=== PATIENT | female | born 1990 | race African-American/Black ===

== ENCOUNTER 2016-09-12 21:27 | Inpatient (IN) | payer MEDICAID ==
[~2016-09-12] VITALS: Ht 165.1 cm; Wt 70.1 kg
[~2016-09-12 21:27] MED LIST: ALBU6.7H INH; AMBI5TAB PO; FOLI5CAP PO; HYDR-3516 PO
[2016-09-12 21:33] VITALS: BP 129/68; PULSE 92; RESP 16; TEMP 98; O2SAT 98
[2016-09-13] VITALS (10 sets, daily range): BP systolic 95–134; BP diastolic 50–74; PULSE 63–99; RESP 16–20; TEMP 97–98.5; O2SAT 95–99
[2016-09-13] MEDS ORDERED: SODIUM CHLOR 0.9% 1000 ML INJ 1,000 ML IV ONE (00:28)
[2016-09-13] MEDS ORDERED: HYDROmorphone HCL PF 1 MG/ML VIAL IVS ONE (00:30)
[2016-09-13] MEDS ORDERED: diphenhydrAMINE HCL 25 MG CAP PO ONE (00:30)
[2016-09-13] MEDS ORDERED: ONDANSETRON HCL 4 MG/2 ML VIAL IVP ONE (00:30)
[2016-09-13] MEDS: SODIUM CHLORIDE 0.9% FLUSH 5 ML FLUSH IVF PRN ×3 (01:12→03:37)
--- NOTE | 2016-09-13 01:24 | RADRPT ---
EXAM DATE/TIME: 09/13/2016 01:01 [place] COMPARISON: CHEST PA & LAT, August 07, 2016, 14:44. INDICATIONS : Pt having chest pain and pain all over from Sickle Cell. MEDICAL HISTORY : Congestive heart failure. Sickle Cell disease. asthma SURGICAL HISTORY : section. Tubal ligation. Cholecystectomy. Port placement ENCOUNTER: Initial ACUITY: 1 day PAIN SCORE: 8/10 LOCATION: Bilateral chest FINDINGS: The cardiac silhouette is enlarged in transverse diameter. The lungs are free of acute parenchymal op acity. No effusions are identified. There is elevation of the right hemidiaphragm. [id number] is i n place via right internal jugular approach with its tip in the superior vena cava. CONCLUSION: 1. Cardiomegaly. No acute pulmonary disease. Obed Wagner MD on September 13, 2016 at 1:22 Board Certified Radiologist. This report was verified electronically.
[2016-09-13 01:29] LABS: AUTOMATED NEUTROPHIL # 10.5 TH/MM3 (1.8-7.7); BASOPHIL # 0.3 TH/MM3 (0-0.2); BASOPHIL % 2.1 % (0.0-2.0); EOSINOPHIL # 0.4 TH/MM3 (0-0.4); EOSINOPHIL % 2.3 % (0.0-4.0); LYMPH % 19.4 % (9.0-44.0); LYMPHOCYTE # 3.2 TH/MM3 (1.0-4.8); MEAN CELL VOLUME 81.5 FL (80.0-100.0); MEAN CORPUSCULAR HEMOGLOBIN 27.6 PG (27.0-34.0); MEAN CORPUSCULAR HGB CONC 33.9 % (32.0-36.0); MONO % 11.8 % (0.0-8.0); NEUT % 64.4 % (16.0-70.0); PLATELET COUNT 479 TH/MM3 (150-450); RED BLOOD COUNT 2.56 MIL/MM3 (4.00-5.30); RETIC % 5.2 % (0.4-3.0); WHITE BLOOD COUNT 16.3 TH/MM3 (4.0-11.0)
[2016-09-13 01:39] LABS: HEMO FLAGS AUTO DIFF; POTASSIUM 3.4 MEQ/L (3.5-5.1)
[2016-09-13] MEDS ORDERED: HYDROmorphone HCL PF 1 MG/ML VIAL IV PUSH ONE ×2 (01:45→03:15)
[2016-09-13 01:46] LABS: HEMATOCRIT 20.9 % (35.0-46.0)
[2016-09-13 02:55] LABS: OVALOCYTES 1+ (NORMAL); SICKLE CELLS 1+ (NORMAL); TARGET CELLS 1+ (NORMAL); TEARDROP RBCS 1+ (NORMAL)
[2016-09-13 02:56] LABS: HOWELL-JOLLY BODIES PRESENT (NONE SEEN)
[2016-09-13 02:57] LABS: SCAN/DIFF AUTO DIFF CONFIRMED
--- NOTE | 2016-09-13 03:14 | PD ---
HPI Chief Complaint: Sickle Cell Time Seen by Provider: 00:20 Travel History International Travel<30 days: No Contact w/Intl Traveler<30days: No Traveled to known affect area: No History of Present Illness HPI Patient is a 26 year old female with a history of sickle cell disease who comes in complaining of pain all over. She says the pain is in her arms, legs, back and chest. She says this is typical of her sickle cell pain. She says she feels like her asthma may be acting up a little. She denies fevers, but has had chills. She denies any injuries. She denies any swelling or redness of her joints. PFSH Past Medical History Hx Anticoagulant Therapy: No Anemia: Yes Arthritis: No Asthma: Yes Autoimmune Disease: No Blood Disorders: Yes (Sickel Cell Anemia) Anxiety: Yes Depression: No Heart Rhythm Problems: No Cancer: No Cardiovascular Problems: Yes (CHF) High Cholesterol: No Chemotherapy: No Chest Pain: No Congestive Heart Failure: Yes COPD: No Cerebrovascular Accident: No Diabetes: No Diminished Hearing: No Endocrine: No Gastrointestinal Disorders: Yes GERD: No Genitourinary: No Headaches: Yes Hiatal Hernia: No Hypertension: No Immune Disorder: No Implanted Vascular Access Dvce: Yes Kidney Stones: No Musculoskeletal: Yes Neurologic: No Psychiatric: Yes Reproductive: No Respiratory: Yes (ASTHMA) Immunizations Current: Yes Migraines: Yes Radiation Therapy: No Renal Failure: No Seizures: No Sickle Cell Disease: Yes Sleep Apnea: No Thyroid Disease: No Ulcer: No PNEUMOCCOCAL Vaccine (Year): 1 ?: Not LMP: 09/05/16 : 1 Para: 1 Miscarriage: 0 : 0 Tubal Ligation: Yes Past Surgical History Abdominal Surgery: No AICD: No Arteriovenous Shunt: No Body Medical Devices: INFUSAPORT (3RD) Cardiac Surgery: No Section: Yes Cholecystectomy: Yes Ear Surgery: No Endocrine Surgery: No Eye Surgery: No Genitourinary Surgery: Yes (gallbladder removed) Gynecologic Surgery: Yes Hysterectomy: No Insulin Pump: No Joint Replacement: No Neurologic Surgery: No Oral Surgery: No Pacemaker: No Thoracic Surgery: Yes (PORT REMOVED X 2; PORT RIGHT subclavian) Other Surgery: Yes (PORTX3 PLACED AND REMOVED ) Social History Alcohol Use: Yes (occ) Tobacco Use: No Substance Use: No Allergies-Medications (Allergen,Severity, Reaction): Coded Allergies: Percocet (Verified Adverse Reaction, Severe, Nausea/Vomiting, 09/12/16) AND ITCHING *MDRO Multi-Drug Resistant Organism (Verified Adverse Reaction, Unknown, ) MRSA (Chest Wound) - 02/2012 MRSA PCR Screen negative 02/06/15 and 02/08/15. Cleared per Infection Control Reported Meds & Prescriptions Reported Meds & Active Scripts Active Hydrocodone-Acetaminophen 5-325 mg Tab 1 Tab PO Q4H PRN Reported Ambien (Zolpidem Tartrate) 5 Mg Tab 5 Mg PO HS Proventil Hfa 6.7 GM Inh (Albuterol Sulfate) 90 Mcg/Act Aer 2 Puff INH Q6H PRN Folic Acid 5 Mg Cap 5 Mg PO DAILY Review of Systems Except as stated in HPI: all other systems reviewed are Neg General / Constitutional: Positive: Chills, No: Fever HENT: No: Headaches, Lightheadedness Cardiovascular: Positive: Chest Pain or Discomfort Respiratory: No: Cough Gastrointestinal: No: Nausea, Vomiting, Abdominal Pain Musculoskeletal: Positive: Myalgias Skin: No Rash, No Change in Pigmentation Neurologic: No: Weakness, Dizziness Physical Exam Narrative GENERAL: Awake and alert in no acute distress. SKIN: Warm and dry. HEAD: Atraumatic. Normocephalic. EYES: Pupils equal and round. No scleral icterus. ENT: Mucous membranes pink and moist. NECK: Trachea midline. No JVD. CARDIOVASCULAR: Regular rate and rhythm. No murmur appreciated. RESPIRATORY: No accessory muscle use. Clear to auscultation. Breath sounds equal bilaterally. GASTROINTESTINAL: Abdomen soft, non-tender, nondistended. MUSCULOSKELETAL: No obvious deformities. No clubbing. No cyanosis. No edema. NEUROLOGICAL: Awake and alert. No obvious cranial nerve deficits. Motor grossly within normal limits. Normal speech. PSYCHIATRIC: Appropriate mood and affect; insight and judgment normal. Data Data Last Documented VS Vital Signs Date Time Temp Pulse Resp B/P Pulse Ox O2 Delivery O2 Flow Rate FiO2 09/13/16 02:00 81 16 131/74 99 Room Air 09/12/16 21:33 98.0 Orders Basic Metabolic Panel (Bmp) (09/13/16 00:28) Complete Blood Count With Diff (09/13/16 00:28) Retic Count (09/13/16 00:28) Chest, Pa & Lat (09/13/16 00:28) Ecg Monitoring (09/13/16 00:28) Iv Access Insert/Monitor (09/13/16 00:28) Oximetry (09/13/16 00:28) Ondansetron Inj (Zofran Inj) (09/13/16 00:30) Sodium Chloride 0.9% Flush (Ns Flush) (09/13/16 00:30) Sodium Chlor 0.9% 1000 Ml Inj (Ns 1000 M (09/13/16 00:28) Hydromorphone Pf Inj (Dilaudid Pf Inj) (09/13/16 00:30) Diphenhydramine (Benadryl) (09/13/16 00:30) Ed Urine Pregnancytest Poc (09/13/16 00:28) Hydromorphone Pf Inj (Dilaudid Pf Inj) (09/13/16 01:45) Hydromorphone Pf Inj (Dilaudid Pf Inj) (09/13/16 03:15) Admit Order (Ed Use Only) (09/13/16 ) Admit To Inpatient (09/13/16 ) Vital Signs (Adult) Q4H (09/13/16 03:21) Activity Oob With Assistance (09/13/16 03:21) Intake + Output KARI.QSHIFT (09/13/16 03:21) Diet Regular Basic (09/13/16 Breakfast) Sodium Chlor 0.9% 1000 Ml Inj (Ns 1000 M (09/13/16 03:21) Sodium Chloride 0.9% Flush (Ns Flush) (09/13/16 03:30) Sodium Chloride 0.9% Flush (Ns Flush) (09/13/16 09:00) Ondansetron Inj (Zofran Inj) (09/13/16 03:30) Bisacodyl Supp (Dulcolax Supp) (09/13/16 03:30) Comprehensive Metabolic Panel (09/14/16 06:00) Complete Blood Count With Diff (09/14/16 06:00) Scd Bilateral/Knee High KARI.BID (09/13/16 03:21) Missael Bilateral/Knee High KARI.QSHIFT (09/13/16 03:21) Acetaminophen (Tylenol) (09/13/16 03:30) Hydromorphone Pf Inj (Dilaudid Pf Inj) (09/13/16 03:30) Hydromorphone Pf Inj (Dilaudid Pf Inj) (09/13/16 03:30) Inpatient Certification (09/13/16 ) Albuterol Hfa Inh (Proair Hfa Inh) (09/13/16 03:30) Folic Acid (Folate) (09/13/16 09:00) Zolpidem (Ambien) (09/13/16 21:00) Labs Laboratory Tests Test 09/13/16 00:55 White Blood Count 16.3 TH/MM3 Red Blood Count 2.56 MIL/MM3 Hemoglobin 7.1 GM/DL Hematocrit 20.9 % Mean Corpuscular Volume 81.5 FL Mean Corpuscular Hemoglobin 27.6 PG Mean Corpuscular Hemoglobin 33.9 % Concent Red Cell Distribution Width 17.0 % Platelet Count 479 TH/MM3 Mean Platelet Volume 8.3 FL Neutrophils (%) (Auto) 64.4 % Lymphocytes (%) (Auto) 19.4 % Monocytes (%) (Auto) 11.8 % Eosinophils (%) (Auto) 2.3 % Basophils (%) (Auto) 2.1 % Neutrophils # (Auto) 10.5 TH/MM3 Lymphocytes # (Auto) 3.2 TH/MM3 Monocytes # (Auto) 1.9 TH/MM3 Eosinophils # (Auto) 0.4 TH/MM3 Basophils # (Auto) 0.3 TH/MM3 CBC Comment AUTO DIFF Differential Comment AUTO DIFF CONFIRMED Basophilic Stippling FAINT Sickle Cells 1+ Target Cells 1+ Tear Drop Cells 1+ Ovalocytes 1+ Karimi-[place] Bodies PRESENT Reticulocyte Count 5.2 % Absolute Reticulocyte Count 132.4 MIL/L Sodium Level 141 MEQ/L Potassium Level 3.4 MEQ/L Chloride Level 110 MEQ/L Carbon Dioxide Level 23.0 MEQ/L Anion Gap 8 MEQ/L Blood Urea Nitrogen 6 MG/DL Creatinine 0.64 MG/DL Estimat Glomerular Filtration 135 ML/MIN Rate Random Glucose 92 MG/DL Calcium Level 8.5 MG/DL MDM Medical Decision Making Medical Screen Exam Complete: Yes Emergency Medical Condition: Yes Medical Record Reviewed: Yes Differential Diagnosis Sickle cell pain crisis versus acute syndrome versus electrolyte abnormality versus dehydration Narrative Course Patient is a 26 year old female complaining of sickle cell pain. She says her pain is typical of her sickle cell pain. Exam shows no acute abnormalities. IV established, labs sent. Labs show a Hgb 7.1, which is typical for her. Her reticulocyte count is appropriately elevated. Given Hydromorphone, IVF, Benadryl PO and Zofran. Patient continued to have pain, given second dose of Hydromorphone. Patient complained of pain again after the two doses of pain medication. Decision made to admit for further management. Given third dose of Hydromorphone. Chest XR shows cardiomegaly, no infiltrate. Diagnosis Primary Impression: Sickle cell disease with crisis Admitting Information Admitting Physician Requests: Admit Lulu Russell MD Sep 13, 2016 03:14
[2016-09-13] MEDS ORDERED: ACETAMINOPHEN 325 MG TAB PO PRN (03:30)
[2016-09-13] MEDS ORDERED: ALBUTEROL SULFATE 90 MCG/ACT HFA 8 GM INHALER INH PRN (03:30)
[2016-09-13] MEDS ORDERED: BISACODYL 10 MG SUPP PR PRN (03:30)
[2016-09-13] MEDS ORDERED: SODIUM CHLORIDE 0.9% FLUSH 5 ML FLUSH FLUSH PRN (03:30)
[2016-09-13] MEDS: SODIUM CHLOR 0.9% 1000 ML INJ 1,000 ML IV SCH ×4 (04:07→23:21)
[2016-09-13] MEDS: HYDROmorphone HCL PF 1 MG/ML VIAL IV PRN ×6 (06:23→23:29)
[2016-09-13] MEDS: SODIUM CHLORIDE 0.9% FLUSH 5 ML FLUSH FLUSH SCH ×2 (09:00→22:14)
[2016-09-13] MEDS: FOLIC ACID 1 MG TAB PO SCH (09:19)
--- NOTE | 2016-09-13 10:39 | HHI.HP ---
[facility]ician No Primary Care Physician Admission Diagnosis sickle cell crisis Diagnoses: Chief Complaint: Generalized pain. Travel History International Travel<30 Days: No Contact w/Intl Traveler <30 Da: No Traveled to Known Affected Are: No History of Present Illness Ms. Frazier is a pleasant 26 year old female with a history of sickle cell disease who presented to the ED on 09/13/2016 due to pain all over her body - specifically in her arms, legs, back and chest. She reported some chills but no fever. She used to take hydroxyurea but did not tolerate well. Currently, she only takes folic acid for sickle cell disease. Denies any injuries. Denies any changes in bowel or bladder habits. No fever, chills currently. Cardiac work up: Echocardiogram 02/12/2016 -- LVEF 30-35%. Diffuse hypokinesis. Pulmonary artery was normal sized. Review of Systems ROS Limitations: Other (Negative except as noted in the HPI. ) Past Family Social History Past Medical History Sickle cell disease. Anxiety Past Surgical History Cholecystectomy . Reported Medications Hydrocodone-Acetaminophen 5-325 mg Tab 1 Tab PO Q4H PRN Ambien (Zolpidem Tartrate) 5 Mg Tab 5 Mg PO HS Proventil Hfa 6.7 GM Inh (Albuterol Sulfate) 90 Mcg/Act Aer 2 Puff INH Q6H PRN Folic Acid 5 Mg Cap 5 Mg PO DAILY Allergies: Coded Allergies: Percocet (Verified Adverse Reaction, Severe, Nausea/Vomiting, 09/12/16) AND ITCHING *MDRO Multi-Drug Resistant Organism (Verified Adverse Reaction, Unknown, ) MRSA (Chest Wound) - 02/2012 MRSA PCR Screen negative 02/06/15 and 02/08/15. Cleared per Infection Control Family History Diabetes run in the family. Social History Smokes occasionally but does not drink alcohol or use illicit drugs. Physical Exam Vital Signs Vital Signs Date Time Temp Pulse Resp B/P Pulse Ox O2 Delivery O2 Flow Rate FiO2 09/13/16 08:35 98.1 63 18 121/57 97 09/13/16 06:07 88 09/13/16 05:23 98.1 79 20 100/50 96 09/13/16 02:00 81 16 131/74 99 Room Air 09/13/16 01:08 16 99 Room Air 09/13/16 00:00 84 16 134/72 97 Room Air 09/12/16 21:33 98.0 92 16 129/68 98 Room Air Physical Exam GENERAL: This is a well-nourished, well-developed patient, in no apparent distress. SKIN: No rashes, ecchymoses or lesions. Cool and dry. HEAD: Atraumatic. Normocephalic. No temporal or scalp tenderness. EYES: Pupils equal round and reactive. Extraocular motions intact. No scleral icterus. No injection or drainage. ENT: Nose without bleeding, purulent drainage or septal hematoma. Throat without erythema, tonsillar hypertrophy or exudate. Uvula midline. Airway patent. NECK: Trachea midline. No JVD or lymphadenopathy. Supple, nontender, no meningeal signs. CARDIOVASCULAR: Regular rate and rhythm without murmurs, gallops, or rubs. RESPIRATORY: Clear to auscultation. Breath sounds equal bilaterally. No wheezes , rales, or rhonchi. GASTROINTESTINAL: Abdomen soft, non-tender, nondistended. No hepato-splenomegaly , or palpable masses. No guarding. MUSCULOSKELETAL: Extremities without clubbing, cyanosis, or edema. No joint tenderness, effusion, or edema noted. No calf tenderness. Negative Homans sign bilaterally. NEUROLOGICAL: Awake and alert. Cranial nerves II through XII intact. Motor and sensory grossly within normal limits. Five out of 5 muscle strength in all muscle groups. Normal speech. Laboratory Laboratory Tests Test 09/13/16 00:55 White Blood Count 16.3 Red Blood Count 2.56 Hemoglobin 7.1 Hematocrit 20.9 Mean Corpuscular Volume 81.5 Mean Corpuscular Hemoglobin 27.6 Mean Corpuscular Hemoglobin 33.9 Concent Red Cell Distribution Width 17.0 Platelet Count 479 Mean Platelet Volume 8.3 Neutrophils (%) (Auto) 64.4 Lymphocytes (%) (Auto) 19.4 Monocytes (%) (Auto) 11.8 Eosinophils (%) (Auto) 2.3 Basophils (%) (Auto) 2.1 Neutrophils # (Auto) 10.5 Lymphocytes # (Auto) 3.2 Monocytes # (Auto) 1.9 Eosinophils # (Auto) 0.4 Basophils # (Auto) 0.3 CBC Comment AUTO DIFF Differential Comment AUTO DIFF CONFIRMED Basophilic Stippling FAINT Sickle Cells 1+ Target Cells 1+ Tear Drop Cells 1+ Ovalocytes 1+ Karimi-[place] Bodies PRESENT Reticulocyte Count 5.2 Absolute Reticulocyte Count 132.4 Sodium Level 141 Potassium Level 3.4 Chloride Level 110 Carbon Dioxide Level 23.0 Anion Gap 8 Blood Urea Nitrogen 6 Creatinine 0.64 Estimat Glomerular Filtration 135 Rate Random Glucose 92 Calcium Level 8.5 Result Diagram: 09/13/165409/13/1654 Imaging Last Impressions Chest X-Ray 09/13/168 Signed Impressions: Service Date/Time: Thursday, September 13, 2016 01:01 - CONCLUSION: 1. Cardiomegaly. No acute pulmonary disease. Obed Wagner MD Assessment and Plan Problem List: (1) Acute sickle cell crisis ICD Code: D57.00 Status: Resolved (2) Sickle cell anemia ICD Code: D57.1 Status: Acute (3) Cardiomyopathy ICD Code: I42.9 Status: Chronic Code Status Ms. Frazier is a pleasant 26 year old female with a history of sickle cell disease , cardiomyopathy who presented to the ED due to generalized pain. - Acute sickle cell crisis - Sickle cell anemia - Hgb 7.1 - NS 150cc/hour. Dilaudid 1mg and 2mg depending on the pain level. - If Hgb drops below 6.0, we will transfuse PRBCs. - Switch to PO pain medications once patient's pain improves - hopefully on . - Continue folic acid 5mg Qday. - Follow up with Hematology in the outpatient setting. - Non-ischemic cardiomyopathy - EF 30-35%. NYHA class I heart failure - systolic. 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 - Patient should be on ASAD inhibitor and beta renan. She was on Lisinopril 2.5mg Qday and metoprolol 12.5mg BID before. - We will start Lisinopril 2.5mg Qday and metoprolol succinate 12.5mg Qday. Titrate up Lisinopril as the benefit is dose related. Full code. SCDs. Physician Certification 2 Midnight Certification Type: Admission for Inpatient Services Order for Inpatient Services The services are ordered in accordance with Medicare regulations or non- Medicare payer requirements, as applicable. In the case of services not specified as inpatient-only, they are appropriately provided as inpatient services in accordance with the 2-midnight benchmark. Estimated LOS (days): 2 days is the estimated time the patient will need to remain in the hospital, assuming treatment plan goals are met and no additional complications. Post-Hospital Plan: Home Wolfgang Nieves DO Sep 13, 2016 10:39
[2016-09-13] MEDS ORDERED: diphenhydrAMINE HCL 50 MG/ML VIAL IM PRN (11:45)
[2016-09-13] MEDS: diphenhydrAMINE HCL 25 MG CAP PO PRN (12:38)
[2016-09-13] MEDS: ONDANSETRON HCL 4 MG/2 ML VIAL IVP PRN (19:24)
[2016-09-13] MEDS: ZOLPIDEM TARTRATE 5 MG TAB PO SCH (22:14)
[2016-09-14] VITALS (13 sets, daily range): BP systolic 102–126; BP diastolic 52–75; PULSE 84–100; RESP 16–20; TEMP 96.2–98.5; O2SAT 93–98
[2016-09-14] MEDS ORDERED: PILL SPLITTER OTHER PRN (00:30)
[2016-09-14] MEDS: ONDANSETRON HCL 4 MG/2 ML VIAL IVP PRN ×3 (03:38→19:31)
[2016-09-14] MEDS: HYDROmorphone HCL PF 1 MG/ML VIAL IV PRN ×6 (03:39→23:18)
[2016-09-14] MEDS: SODIUM CHLOR 0.9% 1000 ML INJ 1,000 ML IV SCH ×3 (05:11→19:21)
[2016-09-14 06:18] LABS: AUTOMATED NEUTROPHIL # 16.6 TH/MM3 (1.8-7.7); BASOPHIL # 0.2 TH/MM3 (0-0.2); BASOPHIL % 1.1 % (0.0-2.0); EOSINOPHIL % 0.2 % (0.0-4.0); LYMPH % 7.2 % (9.0-44.0); LYMPHOCYTE # 1.4 TH/MM3 (1.0-4.8); MEAN CELL VOLUME 79.4 FL (80.0-100.0); MEAN CORPUSCULAR HEMOGLOBIN 27.6 PG (27.0-34.0); MEAN CORPUSCULAR HGB CONC 34.8 % (32.0-36.0); MONO % 7.7 % (0.0-8.0); NEUT % 83.8 % (16.0-70.0); PLATELET COUNT 427 TH/MM3 (150-450); RED BLOOD COUNT 2.28 MIL/MM3 (4.00-5.30); RED CELL DISTRIBUTION WIDTH 18.6 % (11.6-17.2); WHITE BLOOD COUNT 19.8 TH/MM3 (4.0-11.0)
[2016-09-14 06:27] LABS: HEMO FLAGS DIFF FINAL
[2016-09-14 06:29] LABS: HEMATOCRIT 18.1 % (35.0-46.0)
[2016-09-14 06:45] LABS: ALKALINE PHOSPHATASE 81 U/L (45-117); ALT (GPT) 16 U/L (10-53); ANION GAP 9 MEQ/L (5-15); AST (GOT) 38 U/L (15-37); BICARBONATE 23.9 MEQ/L (21.0-32.0); BLOOD UREA NITROGEN 6 MG/DL (7-18); CHLORIDE 110 MEQ/L (98-107); GLOMERULAR FILTRATION RATE 142 ML/MIN (>89); POTASSIUM 3.9 MEQ/L (3.5-5.1); SODIUM (NA) 143 MEQ/L (136-145); TOTAL BILIRUBIN ADULT 2.7 MG/DL (0.2-1.0)
[2016-09-14] MEDS: SODIUM CHLORIDE 0.9% FLUSH 5 ML FLUSH FLUSH SCH ×2 (09:00→21:00)
--- NOTE | 2016-09-14 09:01 | HHI.PR ---
Subjective Remarks Follow up for sickle cell crisis. The patient reports continued pain throughout entire body including chest, abdomen, back, arms, legs. She reports nausea and vomiting last night, relieved by IV Zofran. Has not had a BM since arrival. Denies fevers, reports chills. She states she just wants to rest. She reports usually when she has a sickle cell flare, she is in the hospital for 1 to 1.5 weeks. Her medical record librarian is Dr. Oropeza. Objective Vitals Vital Signs Date Time Temp Pulse Resp B/P Pulse Ox O2 Delivery O2 Flow Rate FiO2 09/14/16 07:08 98.0 96 19 105/55 97 09/14/16 04:29 97.6 99 20 105/59 96 09/14/16 04:29 18 09/14/16 00:03 97.5 100 20 114/58 98 09/13/16 19:44 98.0 99 20 95/53 95 09/13/16 17:57 97.0 87 18 106/51 96 09/13/16 12:49 98.5 84 16 114/57 96 I/O 09/13/16 09/13/16 09/13/16 09/14/16 09/14/16 09/14/16 07:00 15:00 23:00 07:00 15:00 23:00 Intake Total 1800 ml Balance 1800 ml Intake Oral 600 ml IV Total 1200 ml # Voids 1 6 2 # Bowel Movements 0 Result Diagram: 09/14/16 0506 09/14/16 0506 Imaging Last Impressions Chest X-Ray 09/13/16 0028 Signed Impressions: Service Date/Time: Tuesday, September 13, 2016 01:01 - CONCLUSION: 1. Cardiomegaly. No acute pulmonary disease. Obed Wagner MD Objective Remarks GENERAL: Well-nourished, well-developed pleasant young AA female patient in [facility]. SKIN: Warm and dry. No rash. HEAD: Normocephalic. Atraumatic. EYES: Pupils equal and round. No scleral icterus. No injection or drainage. ENT: No nasal bleeding or discharge. Mucous membranes pink and moist. NECK: Supple. Trachea midline. CARDIOVASCULAR: Regular rate and rhythm. S1, S2 noted. No murmur appreciated. Port at right upper chest. RESPIRATORY: No accessory muscle use. Clear to auscultation. Breath sounds equal bilaterally. GASTROINTESTINAL: Abdomen soft, non-tender, nondistended. Normoactive bowel sounds x4. MUSCULOSKELETAL: No obvious deformities. Extremities without clubbing, cyanosis , or edema. NEUROLOGICAL: Awake and alert. No obvious cranial nerve deficits. Motor grossly within normal limits. Normal speech. PSYCHIATRIC: Appropriate mood and affect; insight and judgment normal. Medications and IVs Current Medications Medications (Trade) Dose Ordered Sig/Pavel Route Start Time Stop Time Status Last Admin (NS 1000 ml Inj) 1,000 ml @ 150 mls/hr Q6H40M IV 09/13/16 03:21 09/14/16 05:11 (NS Flush) 2 ml UNSCH PRN FLUSH 09/13/16 03:30 (NS Flush) 2 ml BID FLUSH 09/13/16 09:00 09/13/16 22:14 (Zofran Inj) 4 mg Q6H PRN IVP 09/13/16 03:30 09/14/16 03:38 (Dulcolax Supp) 10 mg DAILY PRN NC 09/13/16 03:30 (Tylenol) 650 mg Q6H PRN PO 09/13/16 03:30 (Dilaudid Pf Inj) 1 mg Q2H PRN IV 09/13/16 03:30 (Dilaudid Pf Inj) 2 mg Q2H PRN IV 09/13/16 03:30 09/14/16 07:40 (Proair Hfa Inh) 2 puff Q6H PRN INH 09/13/16 03:30 (Folate) 5 mg DAILY PO 09/13/16 09:00 09/13/16 09:19 (Ambien) 5 mg HS PO 09/13/16 21:00 09/13/16 22:14 (Benadryl) 25 mg Q6H PRN PO 09/13/16 11:45 09/13/16 12:38 (Benadryl Inj) 25 mg Q6H PRN IM 09/13/16 11:45 (Prinivil) 2.5 mg DAILY PO 09/14/16 09:00 (Toprol Xl) 12.5 mg DAILY PO 09/14/16 09:00 (Pill Splitter) 1 ea UNSCH PRN OTHER 09/14/16 00:30 Urinary Catheter: No A/P Problem List: (1) Acute sickle cell crisis ICD Code: D57.00 Status: Resolved (2) Sickle cell anemia ICD Code: D57.1 Status: Acute (3) Cardiomyopathy ICD Code: I42.9 Status: Chronic Assessment and Plan Ms. Frazier is a pleasant 26 year old female with a history of sickle cell disease , cardiomyopathy who presented to the ED due to generalized pain. - Acute sickle cell crisis - Sickle cell anemia - Hgb 7.1 - Continue IVF with NS 150cc/hour. Dilaudid 1mg and 2mg per pain level. - Hgb 6.2, will transfuse 2u pRBCs. - Switch to PO pain medications once patient's pain improves - Continue folic acid 5mg Qday. - Consult patient's Meat Stocker Dr. Oropeza - Non-ischemic cardiomyopathy - EF 30-35%. NYHA class I heart failure - systolic. 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 - Patient should be on ASAD inhibitor and beta renan. She was on Lisinopril 2.5mg Qday and metoprolol 12.5mg BID previously. - Started Lisinopril 2.5mg Qday and metoprolol succinate 12.5mg Qday. Titrate up Lisinopril as the benefit is dose related. Full code. SCDs. Attending Statement The exam, history, and the medical decision-making described in the above note were completed with the assistance of the mid-level provider. I reviewed and agree with the findings presented. I attest that I had a [id number] encounter with the patient on the same day, and personally performed and documented my assessment and findings in the medical record. Honey Petersen PA-C Sep 14, 2016 09:01 Stone Hahn MD Sep 22, 2016 18:47
[2016-09-14] MEDS: LISINOPRIL 5 MG TAB PO SCH (11:05)
[2016-09-14] MEDS: METOPROLOL SUCCINATE 25 MG EXTENDED RELEASE TAB PO SCH (11:06)
[2016-09-14] MEDS: FOLIC ACID 1 MG TAB PO SCH (11:06)
[2016-09-14] MEDS ORDERED: SODIUM CHLOR 0.9% 250 ML INJ 250 ML IV ONE (13:45)
[2016-09-14] MEDS: ZOLPIDEM TARTRATE 5 MG TAB PO SCH (21:00)
[2016-09-15] VITALS (7 sets, daily range): BP systolic 117–132; BP diastolic 57–70; PULSE 59–89; RESP 16–18; TEMP 97.1–98.5; O2SAT 93–99
[2016-09-15] MEDS: ONDANSETRON HCL 4 MG/2 ML VIAL IVP PRN ×3 (03:03→18:07)
[2016-09-15] MEDS: HYDROmorphone HCL PF 1 MG/ML VIAL IV PRN ×6 (03:04→20:45)
[2016-09-15] MEDS: SODIUM CHLOR 0.9% 1000 ML INJ 1,000 ML IV SCH ×3 (03:20→21:15)
[2016-09-15 06:21] LABS: BASOPHIL # 0.2 TH/MM3 (0-0.2); BASOPHIL % 1.2 % (0.0-2.0); EOSINOPHIL # 0.1 TH/MM3 (0-0.4); EOSINOPHIL % 0.4 % (0.0-4.0); LYMPH % 11.2 % (9.0-44.0); LYMPHOCYTE # 2.2 TH/MM3 (1.0-4.8); MEAN CELL VOLUME 79.7 FL (80.0-100.0); MEAN CORPUSCULAR HEMOGLOBIN 27.3 PG (27.0-34.0); MEAN CORPUSCULAR HGB CONC 34.2 % (32.0-36.0); MONO % 11.4 % (0.0-8.0); NEUT % 75.8 % (16.0-70.0); PLATELET COUNT 368 TH/MM3 (150-450); RED BLOOD COUNT 3.14 MIL/MM3 (4.00-5.30); RED CELL DISTRIBUTION WIDTH 17.4 % (11.6-17.2); WHITE BLOOD COUNT 19.9 TH/MM3 (4.0-11.0)
[2016-09-15 06:25] LABS: HEMO FLAGS AUTO DIFF
[2016-09-15 06:41] LABS: BICARBONATE 26.1 MEQ/L (21.0-32.0); POTASSIUM 3.2 MEQ/L (3.5-5.1)
--- NOTE | 2016-09-15 07:37 | MB ---
cc: JOSELITO OROPEZA DATE OF CONSULTATION: 09/14/2016 CHIEF COMPLAINT "I hurt all over." HISTORY OF PRESENT ILLNESS This patient is a 26-year-old lady who has a history of sickle-cell anemia and multiple sickle-cell crises. The patient recently developed pain and came to the emergency room and received the diagnosis sickle-cell crisis. She is currently in bed complaining of pain. The doctors requested a hematology consultation. PRIOR HOSPITALIZATIONS AND MEDICAL EXAMS 1. Migraines. 2. History of cardiac problems; she states congestive heart failure but that has not been a problem. 3. Port removal x2. 4. Cholecystectomy. 5. Heartburn. 6. Tubal ligation. 7. History of live . 8. Sickle-cell anemia. 9. Anxiety. 10. History of alcohol consumption. 11. Distant history of chickenpox. ALLERGIES PERCOCET. MEDICATIONS Medicines at that time of admission included: 1. Albuterol, two whiffs q.6h. 2. Folic acid 5 mg a day. 3. Hydrocodone 5/325. 4. Zolpidem 5 mg p.o. q.h.s. SOCIAL HISTORY This lady lives locally. She is single. She is unemployed. FAMILY HISTORY Positive for sickle-cell anemia. REVIEW OF SYSTEMS Note, the patient is complaining of generalized pain, headache, history of asthma, history of cholecystectomy, abdominal pain, generalized pain, heartburn, weakness and fatigue. PHYSICAL EXAMINATION GENERAL: Well-developed, well-nourished female in no acute distress. VITAL SIGNS: Temperature 98.5, pulse 98, respirations 18, blood pressure 126/75. HEAD: No pain, irregularities or exostosis. EARS: External anatomy is normal. Ear canals are normal. NOSE: No cysts or deviation of nasal septa appreciated. MOUTH: Tongue is in midline. Uvula non-deviated. No masses evident. Dentition is acceptable. NECK: Pulses are full and equal bilaterally. No bruits are identified. No goiter or masses are palpated. LUNGS: Examination shows diminished chest wall expansion. BREASTS: Examination was not performed. HEART: Normal S1 and S2 are present. No bruits, lifts, murmurs or thrills. S3 and S4 are absent. ABDOMEN: Abdomen is scaphoid. No localized tenderness or rebound. No masses. The liver and spleen cannot be palpated. Bowel sounds are normal. PELVIC: Examination was not performed. RECTAL: Examination was not performed. EXTREMITIES: Appear normal. Musculature, bone development, and pulses are adequate. NEUROLOGIC: Adequate motor power and sensory perception is appreciated. Reflexes are symmetric and bilateral. Good mentation, insight, and affect. LYMPHATIC: Pathologic adenopathy not appreciated. SKIN: The skin surface integrity is maintained symmetrically without edema or breakdown. ASSESSMENT 1. History of sickle-cell anemia. 2. Pain crisis. 3. Asthma. 4. The patient has iron overload with elevated ferritin. She has been prescribed numerous times a chelating agent of deferasirox; she has not taken it. 5. Port removal. 6. Cholecystectomy. 7. GERD. 8. Hemosiderosis RECOMMENDATIONS This patient should be treated for sickle-cell pain crisis. Hopefully one can arrange for her to take an iron chelating agent. Blood transfusion has been ordered. Thank you for this consultation. Joselito Oropeza MD WJD/CUONG /7:34 PM /7:23 AM [email or web address]
[2016-09-15 08:41] LABS: PLATELET ESTIMATE SMEAR NORMAL (NORMAL); PLATELET MORPHOLOGY NORMAL (NORMAL); SCAN/DIFF AUTO DIFF CONFIRMED
[2016-09-15 08:42] LABS: OVALOCYTES 1+ (NORMAL); SICKLE CELLS 1+ (NORMAL); TARGET CELLS 1+ (NORMAL)
[2016-09-15 08:43] LABS: KERATOCYTES 1+ (NORMAL)
[2016-09-15] MEDS: SODIUM CHLORIDE 0.9% FLUSH 5 ML FLUSH FLUSH SCH ×2 (09:51→20:52)
[2016-09-15] MEDS: LISINOPRIL 5 MG TAB PO SCH (09:59)
[2016-09-15] MEDS: FOLIC ACID 1 MG TAB PO SCH (09:59)
[2016-09-15] MEDS: POTASSIUM CHLORIDE 20 MEQ CONTROLLED RELEASE TAB PO ONE ×2 (09:59→10:04)
[2016-09-15] MEDS: METOPROLOL SUCCINATE 25 MG EXTENDED RELEASE TAB PO SCH (09:59)
--- NOTE | 2016-09-15 11:20 | HHI.PR ---
Subjective Remarks Follow-up for sickle cell crisis. Patient states she is trying to get better. She reports that she began having nausea and bilious vomiting overnight. She states she gets vomiting whenever she gets sick. She has mild headache. She denies any chest pain. No BM since arrival, does not feel constipated. Denies any abdominal pain. Objective Vitals Vital Signs Date Time Temp Pulse Resp B/P Pulse Ox O2 Delivery O2 Flow Rate FiO2 09/15/16 09:55 14 09/15/16 07:29 98.2 78 17 117/59 98 09/15/16 02:57 97.1 86 16 125/62 93 09/15/16 00:45 98.3 89 18 121/57 94 09/14/16 23:58 96.7 90 16 110/59 93 09/14/16 23:43 97.1 88 16 106/54 93 09/14/16 23:27 97.1 93 16 106/54 94 09/14/16 22:34 96.9 84 18 121/73 96 09/14/16 21:15 96.2 85 16 115/64 93 09/14/16 20:57 96.7 87 16 102/58 93 09/14/16 20:27 96.5 87 16 102/63 93 09/14/16 19:43 97.6 98 20 114/58 95 09/14/16 15:59 98.5 98 18 126/75 96 09/14/16 12:00 98.3 88 18 115/52 95 I/O 09/14/16 09/14/16 09/14/16 09/15/16 09/15/16 09/15/16 07:00 15:00 23:00 07:00 15:00 23:00 Intake Total 1400 ml Output Total 0 ml Balance 1400 ml Intake Oral 200 ml IV Total 1200 ml Output Urine Total 0 ml # Voids 2 2 # Bowel Movements 0 Result Diagram: 09/15/16 0510 09/15/16 0510 Imaging Last Impressions Chest X-Ray 09/13/16 0028 Signed Impressions: Service Date/Time: Tuesday, September 13, 2016 01:01 - CONCLUSION: 1. Cardiomegaly. No acute pulmonary disease. Obed Wagner MD Objective Remarks GENERAL: Well-developed well-nourished. In no acute distress. SKIN: Warm and dry. No lesions noted. HEENT: Normocephalic. Pupils equal and round. Mucous membranes pink and moist. CARDIOVASCULAR: Regular rate and rhythm. No murmur appreciated. RESPIRATORY: No accessory muscle use. Clear to auscultation. Breath sounds equal bilaterally. GASTROINTESTINAL: Abdomen soft, non-tender, nondistended. Bowel sounds x4. MUSCULOSKELETAL: No obvious deformities. No clubbing or cyanosis. No edema. NEUROLOGICAL: Awake and alert. No focal neurological deficits. Moves upper and lower extremities spontaneously. Normal speech. PSYCHIATRIC: Appropriate mood and affect; insight and judgment normal. A/P Problem List: (1) Acute sickle cell crisis ICD Code: D57.00 Status: Resolved (2) Sickle cell anemia ICD Code: D57.1 Status: Acute (3) Cardiomyopathy ICD Code: I42.9 Status: Chronic Assessment and Plan Ms. Frazier is a 26 year old female with a history of sickle cell disease, cardiomyopathy who presented to the ED due to generalized pain. - Acute sickle cell crisis - Sickle cell anemia - Hgb 7.1 - Continue IVF. IV Dilaudid 1mg and 2mg per pain level. O2. - Hgb 6.2, transfused 2u pRBCs, hemoglobin now 8.6. - Switch to PO pain medications once patient's pain improves - Continue folic acid 5mg Qday. - Consulted patient's Open Developer Operator Dr. Oropeza, watch for iron overload - Non-ischemic cardiomyopathy - EF 30-35%. NYHA class I heart failure - systolic. - Patient has been working with her insurance to find a registered nurse nursery. - Patient should be on ASAD inhibitor and beta renan. She was on Lisinopril 2.5mg Qday and metoprolol 12.5mg BID previously. - Started Lisinopril 2.5mg Qday and metoprolol succinate 12.5mg Qday. - Caution with volume overload, decrease IVF Elevated bilirubin: 2.7, bilirubin has been elevated in the past. Follow-up LFTs. Iron overload: Ferritin 3700. Hematology recommended iron chelation. We'll write for [facility] at [place]. Nausea and vomiting: Secondary to the above. Antiemetics as needed. Hypokalemia: Potassium 3.2. Replace by IV. Magnesium within normal limits. DVT prophylaxis: SCDs Written by Waqas Mishra, acting as scribe for Dr. Hahn on 09/15/16 at 11:18. Discharge Planning Disposition pending clinical course. Attending Statement The documentation accurately reflects the work performed [id number] by me, Dr. Hahn on 09/15/16 at 11:18. Waqas Mishra Sep 15, 2016 11:20 Stone Hahn MD Sep 23, 2016 00:50
[2016-09-15] MEDS: POTASSIUM CHLOR 10 MEQ PREMIX 100 ML IV SCH ×3 (11:45→14:48)
[2016-09-15 12:15] LABS: INDIRECT BILIRUBIN 3.3 MG/DL (0.0-0.8); TOTAL BILIRUBIN ADULT 3.7 MG/DL (0.2-1.0)
[2016-09-15] MEDS: ZOLPIDEM TARTRATE 5 MG TAB PO SCH (20:45)
[2016-09-16] VITALS: BP 107/68; PULSE 83; RESP 16; TEMP 97.3; O2SAT 98
[2016-09-16 00:10] LABS: AUTOMATED NEUTROPHIL # 13.8 TH/MM3 (1.8-7.7); BASOPHIL # 0.3 TH/MM3 (0-0.2); BASOPHIL % 1.3 % (0.0-2.0); EOSINOPHIL # 0.3 TH/MM3 (0-0.4); EOSINOPHIL % 1.4 % (0.0-4.0); HEMATOCRIT 23.7 % (35.0-46.0); LYMPH % 13.5 % (9.0-44.0); LYMPHOCYTE # 2.6 TH/MM3 (1.0-4.8); MEAN CELL VOLUME 80.6 FL (80.0-100.0); MEAN CORPUSCULAR HEMOGLOBIN 28.1 PG (27.0-34.0); MEAN CORPUSCULAR HGB CONC 34.9 % (32.0-36.0); MONO % 10.9 % (0.0-8.0); NEUT % 72.9 % (16.0-70.0); PLATELET COUNT 366 TH/MM3 (150-450); RED BLOOD COUNT 2.94 MIL/MM3 (4.00-5.30); RED CELL DISTRIBUTION WIDTH 18.7 % (11.6-17.2); WHITE BLOOD COUNT 18.9 TH/MM3 (4.0-11.0)
[2016-09-16 00:11] LABS: HEMO FLAGS AUTO DIFF
[2016-09-16] MEDS: HYDROmorphone HCL PF 1 MG/ML VIAL IV PRN ×10 (00:23→23:27)
[2016-09-16] MEDS: ONDANSETRON HCL 4 MG/2 ML VIAL IVP PRN ×3 (00:23→15:54)
[2016-09-16 00:54] LABS: BANDS 2 % (0-6); CORRECTED NUCLEATED RBC 1 /100 WBC (0-0); EOSINOPHILS 2 % (0-4); METAMYELOCYTES 1 % (0-1); MYELOCYTES 1 % (0-0); NEUTROPHIL # MANUAL DIFF 13.4 TH/MM3 (1.8-7.7); PLATELET ESTIMATE SMEAR NORMAL (NORMAL); PLATELET MORPHOLOGY NORMAL (NORMAL); POLYS (SEG NEUTROPHILS) 67 % (16-70); SCAN/DIFF FINAL DIFF MANUAL; SICKLE CELLS 1+ (NORMAL); WBC DIFF SAMPLE 100
[2016-09-16 00:56] LABS: POLYCHROMASIA 5.3 % (0.0-1.9)
[2016-09-16 00:57] LABS: ACANTHOCYTES OCC (NORMAL)
[2016-09-16 00:59] LABS: TARGET CELLS 1+ (NORMAL)
[2016-09-16 04:00] VITALS: BP 127/71; PULSE 66; RESP 16; TEMP 98.2; O2SAT 100
[2016-09-16 08:00] VITALS: BP 130/89; PULSE 72; RESP 16; TEMP 99.2; O2SAT 96
[2016-09-16] MEDS: LISINOPRIL 5 MG TAB PO SCH (09:14)
[2016-09-16] MEDS: FOLIC ACID 1 MG TAB PO SCH (09:14)
[2016-09-16] MEDS: diphenhydrAMINE HCL 25 MG CAP PO PRN ×2 (09:14→15:53)
[2016-09-16] MEDS: SODIUM CHLORIDE 0.9% FLUSH 5 ML FLUSH FLUSH SCH ×2 (09:15→20:25)
[2016-09-16] MEDS: METOPROLOL SUCCINATE 25 MG EXTENDED RELEASE TAB PO SCH (09:18)
[2016-09-16] MEDS: SODIUM CHLOR 0.9% 1000 ML INJ 1,000 ML IV SCH (11:28)
[2016-09-16] MEDS: PROMETHAZINE INJ 25 MG/ML VIAL IM PRN ×2 (12:00→18:05)
[2016-09-16 13:30] VITALS: BP 120/83; PULSE 66; RESP 15; TEMP 98.5; O2SAT 96
[2016-09-16 20:00] VITALS: BP 112/66; PULSE 74; RESP 18; TEMP 97.7; O2SAT 91
[2016-09-16] MEDS: ZOLPIDEM TARTRATE 5 MG TAB PO SCH (20:24)
--- NOTE | 2016-09-16 20:42 | HHI.PR ---
Subjective Remarks Follow up for sickle cell crisis. Ms. Frazier complains of severe generalized pain. Denies any chest pain, SOB, fever, chills. Objective Vitals Vital Signs Date Time Temp Pulse Resp B/P Pulse Ox O2 Delivery O2 Flow Rate FiO2 09/16/16 13:30 98.5 66 15 120/83 96 09/16/16 08:00 99.2 72 16 130/89 96 09/16/16 04:00 98.2 66 16 127/71 100 09/16/16 00:00 97.3 83 16 107/68 98 I/O 09/15/16 09/15/16 09/15/16 09/16/16 09/16/16 09/16/16 07:00 15:00 23:00 07:00 15:00 23:00 Intake Total 989 ml 980 ml Balance 989 ml 980 ml Intake Oral 480 ml 980 ml IV Total 509 ml # Voids 1 4 5 # Bowel Movements 0 Result Diagram: 09/15/16 2325 09/15/16 0510 Imaging Last Impressions Chest X-Ray 09/13/16 0028 Signed Impressions: Service Date/Time: Tuesday, September 13, 2016 01:01 - CONCLUSION: 1. Cardiomegaly. No acute pulmonary disease. Obed Wagner MD Objective Remarks GENERAL: AOX3, NAD. Patient looks very comfortable in bed despite being in severe pain. SKIN: Warm and dry. HEAD: Normocephalic. EYES: No scleral icterus. No injection or drainage. NECK: Supple, trachea midline. No JVD or lymphadenopathy. CARDIOVASCULAR: Regular rate and rhythm without murmurs, gallops, or rubs. RESPIRATORY: Breath sounds equal bilaterally. No accessory muscle use. GASTROINTESTINAL: Abdomen soft, non-tender, nondistended. MUSCULOSKELETAL: No cyanosis, or edema. BACK: Nontender without obvious deformity. No CVA tenderness. Procedures None. A/P Problem List: (1) Acute sickle cell crisis ICD Code: D57.00 Status: Resolved (2) Sickle cell anemia ICD Code: D57.1 Status: Acute (3) Cardiomyopathy ICD Code: I42.9 Status: Chronic Assessment and Plan Ms. Frazier is a 26 year old female with a history of sickle cell disease, cardiomyopathy who presented to the ED due to generalized pain. - Acute sickle cell crisis - Sickle cell anemia - Hgb 7.1 on admission. - Continue IVF. IV Dilaudid 1mg and 2mg per pain level. O2. - Hgb 6.2, transfused 2u pRBCs, hemoglobin now 8.6. - Change pain medications as follows: - Acetaminophen for pain 1-4, [place] 7.5/325 Q6hrs PRN for Pain 5-10, Dilaudid 1mg IV Q3hrs PRN for breakthrough. - Continue folic acid 5mg Qday. - Consulted patient's Stitcher Operator Dr. Oropeza. Patient has not taken deferasirox despite being prescribed numerous times. - Non-ischemic cardiomyopathy - EF 30-35%. NYHA class I heart failure - systolic. - Patient has been working with her insurance to find a consulting software engineer. - Patient should be on ASAD inhibitor and beta renan. She was on Lisinopril 2.5mg Qday and metoprolol 12.5mg BID previously. - Started Lisinopril 2.5mg Qday and metoprolol succinate 12.5mg Qday. - Caution with volume overload, continue IVF 70cc/hour. Elevated bilirubin: 2.7, bilirubin has been elevated in the past. Follow-up LFTs. Iron overload: Ferritin 3700. Hematology recommended iron chelation. We'll write for [facility] at [place]. Nausea and vomiting: Secondary to the above. Antiemetics as needed. Hypokalemia: Potassium 3.2. Replace by IV. Magnesium within normal limits. Full code. DVT prophylaxis: SCDs Wolfgang Nieves DO Sep 16, 2016 20:42
[2016-09-16 21:21] LABS: AUTOMATED NEUTROPHIL # 9.6 TH/MM3 (1.8-7.7); BASOPHIL # 0.2 TH/MM3 (0-0.2); BASOPHIL % 1.4 % (0.0-2.0); EOSINOPHIL # 0.4 TH/MM3 (0-0.4); EOSINOPHIL % 2.8 % (0.0-4.0); HEMATOCRIT 24.9 % (35.0-46.0); LYMPH % 21.2 % (9.0-44.0); LYMPHOCYTE # 3.4 TH/MM3 (1.0-4.8); MEAN CELL VOLUME 82.2 FL (80.0-100.0); MEAN CORPUSCULAR HEMOGLOBIN 27.9 PG (27.0-34.0); MEAN CORPUSCULAR HGB CONC 33.9 % (32.0-36.0); MONO % 13.7 % (0.0-8.0); NEUT % 60.9 % (16.0-70.0); PLATELET COUNT 383 TH/MM3 (150-450); RED BLOOD COUNT 3.03 MIL/MM3 (4.00-5.30); RED CELL DISTRIBUTION WIDTH 18.2 % (11.6-17.2); WHITE BLOOD COUNT 15.8 TH/MM3 (4.0-11.0)
[2016-09-16 21:24] LABS: HEMO FLAGS AUTO DIFF
[2016-09-16 21:56] LABS: OVALOCYTES 1+ (NORMAL); PLATELET ESTIMATE SMEAR NORMAL (NORMAL); PLATELET MORPHOLOGY NORMAL (NORMAL); SCAN/DIFF AUTO DIFF CONFIRMED; SICKLE CELLS 1+ (NORMAL); TARGET CELLS 1+ (NORMAL)
[2016-09-16] MEDS: ACETAMINOPHEN/HYDROcodone 325 MG/7.5 MG TAB PO PRN (22:24)
[2016-09-17 00:07] VITALS: BP 119/64; PULSE 68; RESP 16; TEMP 98.4; O2SAT 95
[2016-09-17] MEDS: SODIUM CHLOR 0.9% 1000 ML INJ 1,000 ML IV SCH ×2 (01:51→14:50)
[2016-09-17] MEDS: HYDROmorphone HCL PF 1 MG/ML VIAL IV PRN ×8 (02:22→23:29)
[2016-09-17] MEDS: ONDANSETRON HCL 4 MG/2 ML VIAL IVP PRN ×2 (02:23→08:12)
[2016-09-17] MEDS: diphenhydrAMINE HCL 25 MG CAP PO PRN ×4 (04:21→23:25)
[2016-09-17] MEDS: ACETAMINOPHEN/HYDROcodone 325 MG/7.5 MG TAB PO PRN ×4 (04:21→22:26)
[2016-09-17 04:53] VITALS: BP 130/76; PULSE 65; RESP 16; TEMP 97.8; O2SAT 99
[2016-09-17 08:00] VITALS: BP 113/77; PULSE 98; RESP 20; TEMP 97.2; O2SAT 96
[2016-09-17] MEDS: LISINOPRIL 5 MG TAB PO SCH (08:11)
[2016-09-17] MEDS: FOLIC ACID 1 MG TAB PO SCH (08:11)
[2016-09-17] MEDS: METOPROLOL SUCCINATE 25 MG EXTENDED RELEASE TAB PO SCH (08:12)
[2016-09-17] MEDS: SODIUM CHLORIDE 0.9% FLUSH 5 ML FLUSH FLUSH SCH ×2 (08:18→20:26)
[2016-09-17 11:47] VITALS: BP 133/78; PULSE 66; RESP 20; TEMP 97.6; O2SAT 96
--- NOTE | 2016-09-17 13:05 | HHI.PR ---
Subjective Remarks The patient said she was working on feeling better. She says she had generalized pain everywhere. She says she has been walking around. She said she had a bowel movement a couple days ago. She had no acute complaints otherwise. Discussed with nursing. Objective Vitals Vital Signs Date Time Temp Pulse Resp B/P Pulse Ox O2 Delivery O2 Flow Rate FiO2 09/17/16 11:47 97.6 66 20 133/78 96 09/17/16 11:45 20 09/17/16 10:31 20 09/17/16 08:00 97.2 98 20 113/77 96 09/17/16 04:53 97.8 65 16 130/76 99 09/17/16 00:07 98.4 68 16 119/64 95 09/16/16 20:00 97.7 74 18 112/66 91 09/16/16 13:30 98.5 66 15 120/83 96 I/O 09/16/16 09/16/16 09/16/16 09/17/16 09/17/16 09/17/16 07:00 15:00 23:00 07:00 15:00 23:00 Intake Total 989 ml 980 ml 360 ml 700 ml Output Total 350 ml 2500 ml Balance 989 ml 980 ml 10 ml -1800 ml Intake Oral 480 ml 980 ml 360 ml 700 ml IV Total 509 ml Output Urine Total 350 ml 2500 ml # Voids 4 5 # Bowel Movements 0 0 0 Result Diagram: 09/16/16201909/15/16 0510 Imaging Last Impressions Chest X-Ray 09/13/16 0028 Signed Impressions: Service Date/Time: Tuesday, September 13, 2016 01:01 - CONCLUSION: 1. Cardiomegaly. No acute pulmonary disease. Obed Wagner MD Objective Remarks GENERAL: NAD, resting comfortably. SKIN: Warm and dry. HEAD: Normocephalic. EYES: No scleral icterus. No injection or drainage. NECK: Supple, trachea midline. No JVD or lymphadenopathy. CARDIOVASCULAR: Regular rate and rhythm without murmurs, gallops, or rubs. RESPIRATORY: Breath sounds equal bilaterally. No accessory muscle use. GASTROINTESTINAL: Abdomen soft, non-tender, nondistended. MUSCULOSKELETAL: No cyanosis, or edema. BACK: Nontender without obvious deformity. No CVA tenderness. PSYCH: Slightly flattened affect. Procedures None. Medications and IVs Current Medications Medications (Trade) Dose Ordered Sig/Pavel Route Start Time Stop Time Status Last Admin (NS 1000 ml Inj) 1,000 ml @ 70 mls/hr [id number] IV 09/13/16 03:21 09/17/16 01:51 (NS Flush) 2 ml UNSCH PRN FLUSH 09/13/16 03:30 (NS Flush) 2 ml BID FLUSH 09/13/16 09:00 09/16/16 09:15 (Zofran Inj) 4 mg Q6H PRN IVP 09/13/16 03:30 09/17/16 08:12 (Dulcolax Supp) 10 mg DAILY PRN [place] 09/13/16 03:30 (Tylenol) 650 mg Q6H PRN PO 09/13/16 03:30 09/16/16 09:17 (Proair Hfa Inh) 2 puff Q6H PRN INH 09/13/16 03:30 (Folate) 5 mg DAILY PO 09/13/16 09:00 09/17/16 08:11 (Ambien) 5 mg HS PO 09/13/16 21:00 09/16/16 20:24 (Benadryl) 25 mg Q6H PRN PO 09/13/16 11:45 09/17/16 11:47 (Prinivil) 2.5 mg DAILY PO 09/14/16 09:00 09/17/16 08:11 (Toprol Xl) 12.5 mg DAILY PO 09/14/16 09:00 09/17/16 08:12 (Pill Splitter) 1 ea UNSCH PRN OTHER 09/14/16 00:30 (Phenergan Inj) 25 mg Q6H PRN IM 09/16/16 12:00 09/16/16 18:05 ([place] 7.5-325 Mg) 1 tab Q6H PRN PO 09/16/16 20:45 09/17/16 10:32 (Dilaudid Pf Inj) 1 mg Q3H PRN IV 09/16/16 22:30 09/17/16 11:47 A/P Problem List: (1) Acute sickle cell crisis ICD Code: D57.00 Status: Resolved (2) Sickle cell anemia ICD Code: D57.1 Status: Acute (3) Cardiomyopathy ICD Code: I42.9 Status: Chronic Assessment and Plan Ms. Frazier is a 26 year old female with a history of sickle cell disease, cardiomyopathy who presented to the ED due to generalized pain. Acute sickle cell crisis The pt presented with generalized pain. S/p IVFs. Hgb 6.2, transfused 2u pRBCs. - Acetaminophen for pain 1-4, [place] 7.5/325 Q6hrs PRN for Pain 5-10, Dilaudid 1mg IV Q3hrs PRN for breakthrough. - Continue folic acid 5mg Qday. - Consulted patient's Brazing Machine Tender Dr. Oropeza. Patient has not taken deferasirox despite being prescribed numerous times. Non-ischemic cardiomyopathy EF 30-35%. NYHA class I heart failure - systolic. Patient has been working with her insurance to find a assembler for puller over hand. - Patient should be on ASAD inhibitor and beta renan. Started Lisinopril 2.5mg Qday and metoprolol succinate 12.5mg Qday. Elevated bilirubin 2.7, bilirubin has been elevated in the past. - Follow-up LFTs. Iron overload Ferritin 3700. Hematology recommended iron chelation. - We'll write for [place] at [facility]. Nausea and vomiting Secondary to the above. - Antiemetics as needed. Hypokalemia Potassium 3.2. Replaced by IV. Magnesium within normal limits. - check BMP, Mg and phos in AM. Full code. DVT prophylaxis: SCDs. Discharge Planning Awaiting clinical improvement. Jesus Faye DO Sep 17, 2016 13:05
[2016-09-17] MEDS: POLYETHYLENE GLYCOL 17 GM PKG PO SCH (14:50)
[2016-09-17 15:50] VITALS: BP 119/68; PULSE 63; RESP 20; TEMP 97.5; O2SAT 93
[2016-09-17 20:00] VITALS: BP 129/80; PULSE 64; RESP 16; TEMP 97.8; O2SAT 96
[2016-09-17] MEDS: ZOLPIDEM TARTRATE 5 MG TAB PO SCH (20:25)
[2016-09-17] MEDS: DOCUSATE SODIUM 100 MG CAP PO SCH (20:30)
[2016-09-18 00:11] VITALS: BP 124/72; PULSE 65; RESP 16; TEMP 98.2; O2SAT 94
[2016-09-18] MEDS: HYDROmorphone HCL PF 1 MG/ML VIAL IV PRN ×8 (02:29→23:52)
[2016-09-18 04:00] VITALS: BP 124/81; PULSE 71; RESP 16; TEMP 97.8; O2SAT 100
[2016-09-18] MEDS: ACETAMINOPHEN/HYDROcodone 325 MG/7.5 MG TAB PO PRN ×4 (04:25→22:56)
[2016-09-18] MEDS: SODIUM CHLOR 0.9% 1000 ML INJ 1,000 ML IV SCH ×2 (04:26→20:54)
[2016-09-18] MEDS: diphenhydrAMINE HCL 25 MG CAP PO PRN ×3 (05:23→20:48)
[2016-09-18 06:02] LABS: HEMATOCRIT 25.7 % (35.0-46.0); MEAN CELL VOLUME 82.5 FL (80.0-100.0); MEAN CORPUSCULAR HEMOGLOBIN 27.8 PG (27.0-34.0); MEAN CORPUSCULAR HGB CONC 33.7 % (32.0-36.0); PLATELET COUNT 379 TH/MM3 (150-450); RED BLOOD COUNT 3.11 MIL/MM3 (4.00-5.30); RED CELL DISTRIBUTION WIDTH 18.9 % (11.6-17.2); REVIEW FLAG FINAL; WHITE BLOOD COUNT 14.4 TH/MM3 (4.0-11.0)
[2016-09-18 06:12] LABS: BICARBONATE 25.5 MEQ/L (21.0-32.0); INDIRECT BILIRUBIN 1.2 MG/DL (0.0-0.8); MAGNESIUM 1.4 MG/DL (1.5-2.5); TOTAL BILIRUBIN ADULT 1.5 MG/DL (0.2-1.0)
[2016-09-18 06:14] LABS: POTASSIUM 2.9 MEQ/L (3.5-5.1)
[2016-09-18] MEDS ORDERED: MAGNESIUM SULFATE 1 GM PREMIX 100 ML IV ONE ×2 (06:30→11:15)
[2016-09-18] MEDS ORDERED: POTASSIUM CHLORIDE 10 MEQ CONTROLLED RELEASE TAB PO ONE ×2 (06:30→15:00)
[2016-09-18 08:00] VITALS: BP 127/75; PULSE 63; RESP 20; TEMP 96.2; O2SAT 98
[2016-09-18] MEDS: METOPROLOL SUCCINATE 25 MG EXTENDED RELEASE TAB PO SCH (08:28)
[2016-09-18] MEDS: FOLIC ACID 1 MG TAB PO SCH (08:28)
[2016-09-18] MEDS: LISINOPRIL 5 MG TAB PO SCH (08:28)
[2016-09-18] MEDS: SODIUM CHLORIDE 0.9% FLUSH 5 ML FLUSH FLUSH SCH ×2 (08:38→20:54)
[2016-09-18] MEDS: SENNOSIDES 8.6 MG TAB PO SCH (08:38)
[2016-09-18] MEDS: POLYETHYLENE GLYCOL 17 GM PKG PO SCH (08:38)
[2016-09-18] MEDS: DOCUSATE SODIUM 100 MG CAP PO SCH ×2 (08:38→20:54)
[2016-09-18] MEDS ORDERED: POTASSIUM CHLORIDE 20 MEQ CONTROLLED RELEASE TAB PO ONE (11:15)
--- NOTE | 2016-09-18 11:21 | HHI.PR ---
Subjective Remarks The patient says she has pain the pain medications are working. She says she has been having bowel movements. She says she has been ambulatory. She had no acute complaints otherwise. Objective Vitals Vital Signs Date Time Temp Pulse Resp B/P Pulse Ox O2 Delivery O2 Flow Rate FiO2 09/18/16 09:21 16 09/18/16 08:00 96.2 63 20 127/75 98 09/18/16 05:25 18 09/18/16 04:00 97.8 71 16 124/81 100 09/18/16 00:11 98.2 65 16 124/72 94 09/17/16 20:00 97.8 64 16 129/80 96 09/17/16 15:50 97.5 63 20 119/68 93 09/17/16 11:47 97.6 66 20 133/78 96 I/O 09/17/16 09/17/16 09/17/16 09/18/16 09/18/16 09/18/16 07:00 15:00 23:00 07:00 15:00 23:00 Intake Total 700 ml 444 ml 450 ml 750 ml 720 ml Output Total 2500 ml 400 ml 800 ml 2000 ml Balance -1800 ml 444 ml 50 ml -50 ml -1280 ml Intake Oral 700 ml 444 ml 450 ml 750 ml 720 ml Output Urine Total 2500 ml 400 ml 800 ml 2000 ml # Voids 8 # Bowel Movements 0 0 1 2 Result Diagram: 09/18/16 0525 09/18/16 0525 Imaging Last Impressions Chest X-Ray 09/13/16 0028 Signed Impressions: Service Date/Time: Tuesday, September 13, 2016 01:01 - CONCLUSION: 1. Cardiomegaly. No acute pulmonary disease. Obed Wagner MD Objective Remarks GENERAL: NAD, resting comfortably. SKIN: Warm and dry. HEAD: Normocephalic. EYES: No scleral icterus. No injection or drainage. NECK: Supple, trachea midline. No JVD or lymphadenopathy. CARDIOVASCULAR: Regular rate and rhythm without murmurs, gallops, or rubs. RESPIRATORY: Breath sounds equal bilaterally. No accessory muscle use. GASTROINTESTINAL: Abdomen soft, non-tender, nondistended. MUSCULOSKELETAL: No cyanosis, or edema. BACK: Nontender without obvious deformity. No CVA tenderness. PSYCH: Flattened affect. Procedures None. Medications and IVs Current Medications Medications (Trade) Dose Ordered Sig/Pavel Route Start Time Stop Time Status Last Admin (NS 1000 ml Inj) 1,000 ml @ 70 mls/hr [id number] IV 09/13/16 03:21 09/18/16 04:26 (NS Flush) 2 ml UNSCH PRN FLUSH 09/13/16 03:30 (NS Flush) 2 ml BID FLUSH 09/13/16 09:00 09/17/16 20:26 (Zofran Inj) 4 mg Q6H PRN IVP 09/13/16 03:30 09/17/16 08:12 (Dulcolax Supp) 10 mg DAILY PRN SD 09/13/16 03:30 (Tylenol) 650 mg Q6H PRN PO 09/13/16 03:30 09/16/16 09:17 (Proair Hfa Inh) 2 puff Q6H PRN INH 09/13/16 03:30 (Folate) 5 mg DAILY PO 09/13/16 09:00 09/18/16 08:28 (Ambien) 5 mg HS PO 09/13/16 21:00 09/17/16 20:25 (Benadryl) 25 mg Q6H PRN PO 09/13/16 11:45 09/18/16 05:23 (Prinivil) 2.5 mg DAILY PO 09/14/16 09:00 09/18/16 08:28 (Toprol Xl) 12.5 mg DAILY PO 09/14/16 09:00 09/18/16 08:28 (Pill Splitter) 1 ea UNSCH PRN OTHER 09/14/16 00:30 (Phenergan Inj) 25 mg Q6H PRN IM 09/16/16 12:00 09/16/16 18:05 ([place] 7.5-325 Mg) 1 tab Q6H PRN PO 09/16/16 20:45 09/18/16 10:50 (Dilaudid Pf Inj) 1 mg Q3H PRN IV 09/16/16 22:30 09/18/16 08:27 (Colace) 100 mg BID PO 09/17/16 21:00 (Senokot) 17.2 mg DAILY PO 09/18/16 09:00 Polyethylene Glycol 17 gm 17 gm DAILY PO 09/17/16 14:00 09/17/16 14:50 (Magnesium Sulfate 1 Gm Premix) 100 ml @ 100 mls/hr ONCE ONCE IV 09/18/16 11:15 09/18/16 12:14 UNV (KCl) 40 meq ONCE ONCE PO 09/18/16 11:15 09/18/16 11:16 UNV A/P Problem List: (1) Acute sickle cell crisis ICD Code: D57.00 Status: Resolved (2) Sickle cell anemia ICD Code: D57.1 Status: Acute (3) Cardiomyopathy ICD Code: I42.9 Status: Chronic Assessment and Plan Ms. Frazier is a 26 year old female with a history of sickle cell disease, cardiomyopathy who presented to the ED due to generalized pain. Acute sickle cell crisis The pt presented with generalized pain. S/p IVFs. Hgb 6.2, transfused 2u pRBCs. Hemoglobin stable 09/18. - Acetaminophen for pain 1-4, [place] 7.5/325 Q6hrs PRN for Pain 5-10, Dilaudid 1mg IV Q3hrs PRN for breakthrough. - Continue folic acid 5mg Qday. - Consulted patient's gravity prospecting supervisor Dr. Oropeza. Patient has not taken deferasirox despite being prescribed numerous times. Non-ischemic cardiomyopathy EF 30-35%. NYHA class I heart failure - systolic. Patient has been working with her insurance to find a project asst. - Patient should be on ASAD inhibitor and beta renan. Started Lisinopril 2.5mg Qday and metoprolol succinate 12.5mg Qday. Elevated bilirubin 2.7, bilirubin has been elevated in the past. - Follow-up LFTs. Improved 09/18. Iron overload Ferritin 3700. Hematology recommended iron chelation. - We'll write for [place] at [place]. Nausea and vomiting Secondary to the above. - Antiemetics as needed. Hypokalemia/ hypomagnesemia Possibly secondary to decreased by mouth intake. - check BMP, Mg and replete as needed. Full code. DVT prophylaxis: SCDs. Discharge Planning Awaiting clinical improvement. Jesus Faye DO Sep 18, 2016 11:21
[2016-09-18 12:00] VITALS: BP 113/71; PULSE 66; RESP 20; TEMP 96.5; O2SAT 94
[2016-09-18 16:00] VITALS: BP 130/80; PULSE 66; RESP 20; TEMP 98.1; O2SAT 98
[2016-09-18 20:00] VITALS: BP 142/82; PULSE 70; RESP 16; TEMP 97.8; O2SAT 99
[2016-09-18] MEDS: ZOLPIDEM TARTRATE 5 MG TAB PO SCH (20:48)
[2016-09-19] VITALS: BP 137/80; PULSE 72; RESP 16; TEMP 99.4; O2SAT 96
[2016-09-19] MEDS: diphenhydrAMINE HCL 25 MG CAP PO PRN ×4 (02:49→21:03)
[2016-09-19] MEDS: HYDROmorphone HCL PF 1 MG/ML VIAL IV PRN ×7 (02:52→21:03)
[2016-09-19 04:00] VITALS: BP 135/83; PULSE 68; RESP 16; TEMP 98.1; O2SAT 98
[2016-09-19] MEDS: ACETAMINOPHEN/HYDROcodone 325 MG/7.5 MG TAB PO PRN (04:55)
[2016-09-19 06:26] LABS: HEMATOCRIT 26.6 % (35.0-46.0); MEAN CELL VOLUME 82.4 FL (80.0-100.0); MEAN CORPUSCULAR HEMOGLOBIN 27.8 PG (27.0-34.0); MEAN CORPUSCULAR HGB CONC 33.7 % (32.0-36.0); PLATELET COUNT 366 TH/MM3 (150-450); RED BLOOD COUNT 3.23 MIL/MM3 (4.00-5.30); RED CELL DISTRIBUTION WIDTH 17.8 % (11.6-17.2); REVIEW FLAG FINAL; WHITE BLOOD COUNT 14.8 TH/MM3 (4.0-11.0)
[2016-09-19 06:56] LABS: BICARBONATE 25.2 MEQ/L (21.0-32.0); MAGNESIUM 1.6 MG/DL (1.5-2.5); POTASSIUM 3.4 MEQ/L (3.5-5.1)
[2016-09-19 08:00] VITALS: BP 131/79; PULSE 62; RESP 16; TEMP 96.4; O2SAT 98
[2016-09-19] MEDS: LISINOPRIL 5 MG TAB PO SCH (08:55)
[2016-09-19] MEDS: METOPROLOL SUCCINATE 25 MG EXTENDED RELEASE TAB PO SCH (08:55)
[2016-09-19] MEDS: SENNOSIDES 8.6 MG TAB PO SCH (09:00)
[2016-09-19] MEDS: POLYETHYLENE GLYCOL 17 GM PKG PO SCH (09:00)
[2016-09-19] MEDS: DOCUSATE SODIUM 100 MG CAP PO SCH ×2 (09:00→21:00)
[2016-09-19] MEDS: FOLIC ACID 1 MG TAB PO SCH (09:00)
[2016-09-19] MEDS: SODIUM CHLORIDE 0.9% FLUSH 5 ML FLUSH FLUSH SCH ×2 (09:02→21:03)
[2016-09-19] MEDS ORDERED: POTASSIUM CHLORIDE 25 MEQ EFFERVESCENT TAB PO ONE (10:30)
--- NOTE | 2016-09-19 10:36 | HHI.PR ---
Subjective Remarks The pt was comfortable. She said she was not ready to have her pain medications cut down. Most of her pain is in her back today. Objective Vitals Vital Signs Date Time Temp Pulse Resp B/P Pulse Ox O2 Delivery O2 Flow Rate FiO2 09/19/16 08:00 96.4 62 16 131/79 98 09/19/16 06:10 16 09/19/16 05:50 18 09/19/16 04:00 98.1 68 16 135/83 98 09/19/16 00:00 99.4 72 16 137/80 96 09/18/16 20:00 97.8 70 16 142/82 99 09/18/16 16:00 98.1 66 20 130/80 98 09/18/16 12:00 96.5 66 20 113/71 94 I/O 09/18/16 09/18/16 09/18/16 09/19/16 09/19/16 09/19/16 07:00 15:00 23:00 07:00 15:00 23:00 Intake Total 750 ml 3024 ml 1769 ml 1278 ml Output Total 800 ml 3600 ml 3300 ml 1500 ml Balance -50 ml -576 ml -1531 ml -222 ml Intake Oral 750 ml 1440 ml 1080 ml 700 ml IV Total 1584 ml 689 ml 578 ml Output Urine Total 800 ml 3600 ml 3300 ml 1500 ml # Bowel Movements 2 0 2 2 Result Diagram: 09/19/16 0550 09/19/16 0550 Imaging Last Impressions Chest X-Ray 09/13/16 0028 Signed Impressions: Service Date/Time: Tuesday, September 13, 2016 01:01 - CONCLUSION: 1. Cardiomegaly. No acute pulmonary disease. Obed Wagner MD Objective Remarks GENERAL: NAD, resting comfortably. SKIN: Warm and dry. HEAD: Normocephalic. EYES: No scleral icterus. No injection or drainage. NECK: Supple, trachea midline. No JVD or lymphadenopathy. CARDIOVASCULAR: Regular rate and rhythm without murmurs, gallops, or rubs. RESPIRATORY: Breath sounds equal bilaterally. No accessory muscle use. GASTROINTESTINAL: Abdomen soft, non-tender, nondistended. MUSCULOSKELETAL: No cyanosis, or edema. BACK: Nontender without obvious deformity. No CVA tenderness. PSYCH: Flattened affect. Procedures None. Medications and IVs Current Medications Medications (Trade) Dose Ordered Sig/Pavel Route Start Time Stop Time Status Last Admin (NS 1000 ml Inj) 1,000 ml @ 70 mls/hr [id number] IV 09/13/16 03:21 09/18/16 20:54 (NS Flush) 2 ml UNSCH PRN FLUSH 09/13/16 03:30 (NS Flush) 2 ml BID FLUSH 09/13/16 09:00 09/19/16 09:02 (Zofran Inj) 4 mg Q6H PRN IVP 09/13/16 03:30 09/17/16 08:12 (Dulcolax Supp) 10 mg DAILY PRN [place] 09/13/16 03:30 (Tylenol) 650 mg Q6H PRN PO 09/13/16 03:30 09/16/16 09:17 (Proair Hfa Inh) 2 puff Q6H PRN INH 09/13/16 03:30 (Folate) 5 mg DAILY PO 09/13/16 09:00 09/19/16 09:00 (Ambien) 5 mg HS PO 09/13/16 21:00 09/18/16 20:48 (Benadryl) 25 mg Q6H PRN PO 09/13/16 11:45 09/19/16 08:54 (Prinivil) 2.5 mg DAILY PO 09/14/16 09:00 09/19/16 08:55 (Toprol Xl) 12.5 mg DAILY PO 09/14/16 09:00 09/19/16 08:55 (Pill Splitter) 1 ea UNSCH PRN OTHER 09/14/16 00:30 (Phenergan Inj) 25 mg Q6H PRN IM 09/16/16 12:00 09/16/16 18:05 ([place] 7.5-325 Mg) 1 tab Q6H PRN PO 09/16/16 20:45 09/19/16 04:55 (Dilaudid Pf Inj) 1 mg Q3H PRN IV 09/16/16 22:30 09/19/16 08:52 (Colace) 100 mg BID PO 09/17/16 21:00 (Senokot) 17.2 mg DAILY PO 09/18/16 09:00 (Miralax) 17 gm DAILY PO 09/17/16 14:00 09/17/16 14:50 (K-Lyte Cl Eff) 50 meq ONCE ONCE PO 09/19/16 10:30 09/19/16 10:31 UNV A/P Problem List: (1) Acute sickle cell crisis ICD Code: D57.00 Status: Resolved (2) Sickle cell anemia ICD Code: D57.1 Status: Acute (3) Cardiomyopathy ICD Code: I42.9 Status: Chronic Assessment and Plan Ms. Frazier is a 26 year old female with a history of sickle cell disease, cardiomyopathy who presented to the ED due to generalized pain. Acute sickle cell crisis The pt presented with generalized pain. S/p IVFs. Hgb 6.2, transfused 2u pRBCs. Hemoglobin stable 09/18. - [place] 10/325 Q4hrs, Dilaudid 1mg IV Q3hrs PRN breakthrough. - Continue folic acid 5mg Qday. - Consulted patient's glass sander belt Dr. Oropeza. Patient has not taken deferasirox despite being prescribed numerous times. Non-ischemic cardiomyopathy EF 30-35%. NYHA class I heart failure - systolic. Patient has been working with her insurance to find a statistical engineer. - Patient should be on ASAD inhibitor and beta renan. Started Lisinopril 2.5mg Qday and metoprolol succinate 12.5mg Qday. Blood pressure well controlled 09/19. Elevated bilirubin 2.7, bilirubin has been elevated in the past. - Follow-up LFTs. Improved 09/18. Iron overload Ferritin 3700. Hematology recommended iron chelation. - [place]'ll write for [facility] [place] [facility]. Nausea and vomiting Secondary to the above. - Antiemetics as needed. Hypokalemia/ hypomagnesemia Possibly secondary to decreased by mouth intake. - replete and monitor. Full code. DVT prophylaxis: SCDs. Discharge Planning Awaiting clinical improvement. Jesus Faye DO Sep 19, 2016 10:36
[2016-09-19] MEDS: ACETAMINOPHEN/HYDROcodone 325 MG/10 MG TAB PO PRN ×4 (11:24→23:22)
[2016-09-19] MEDS: MAGNESIUM SULFATE 1 GM PREMIX 100 ML IV SCH ×2 (11:28→14:08)
[2016-09-19] MEDS: SODIUM CHLOR 0.9% 1000 ML INJ 1,000 ML IV SCH (11:28)
[2016-09-19 12:00] VITALS: BP 123/78; PULSE 67; RESP 16; TEMP 98.3; O2SAT 99
[2016-09-19 16:00] VITALS: BP 112/70; PULSE 72; RESP 16; TEMP 96.4; O2SAT 98
[2016-09-19 20:00] VITALS: BP 117/73; PULSE 68; RESP 18; TEMP 98.9; O2SAT 96
[2016-09-19] MEDS: ZOLPIDEM TARTRATE 5 MG TAB PO SCH (21:03)
[2016-09-20] VITALS: BP 139/88; PULSE 70; RESP 18; TEMP 97.4; O2SAT 94
[2016-09-20] MEDS: HYDROmorphone HCL PF 1 MG/ML VIAL IV PRN ×9 (00:28→23:56)
[2016-09-20] MEDS: SODIUM CHLOR 0.9% 1000 ML INJ 1,000 ML IV SCH ×2 (01:21→17:50)
[2016-09-20 04:00] VITALS: BP 127/71; PULSE 68; RESP 18; TEMP 97.3; O2SAT 98
[2016-09-20] MEDS: ACETAMINOPHEN/HYDROcodone 325 MG/10 MG TAB PO PRN ×5 (05:25→22:30)
[2016-09-20] MEDS: diphenhydrAMINE HCL 25 MG CAP PO PRN ×4 (06:24→23:56)
[2016-09-20 06:27] LABS: BICARBONATE 27.4 MEQ/L (21.0-32.0); MAGNESIUM 1.9 MG/DL (1.5-2.5); POTASSIUM 3.6 MEQ/L (3.5-5.1)
[2016-09-20 08:00] VITALS: BP 125/69; PULSE 65; RESP 16; TEMP 97.2; O2SAT 99
[2016-09-20] MEDS: DOCUSATE SODIUM 100 MG CAP PO SCH ×2 (09:00→21:00)
[2016-09-20] MEDS: SENNOSIDES 8.6 MG TAB PO SCH (09:00)
[2016-09-20] MEDS: POLYETHYLENE GLYCOL 17 GM PKG PO SCH (09:00)
[2016-09-20] MEDS: METOPROLOL SUCCINATE 25 MG EXTENDED RELEASE TAB PO SCH (09:04)
[2016-09-20] MEDS: LISINOPRIL 5 MG TAB PO SCH (09:04)
[2016-09-20] MEDS: FOLIC ACID 1 MG TAB PO SCH (09:05)
[2016-09-20] MEDS: SODIUM CHLORIDE 0.9% FLUSH 5 ML FLUSH FLUSH SCH ×2 (09:09→21:00)
--- NOTE | 2016-09-20 11:50 | HHI.PR ---
Subjective Remarks The patient complained of back pain. Her boyfriend was at the bedside. Discussed with nursing. Objective Vitals Vital Signs Date Time Temp Pulse Resp B/P Pulse Ox O2 Delivery O2 Flow Rate FiO2 09/20/16 08:00 97.2 65 16 125/69 99 09/20/16 07:45 16 09/20/16 06:21 16 09/20/16 04:00 97.3 68 18 127/71 98 09/20/16 00:00 97.4 70 18 139/88 94 09/19/16 20:00 98.9 68 18 117/73 96 09/19/16 16:00 96.4 72 16 112/70 98 09/19/16 12:00 98.3 67 16 123/78 99 I/O 09/19/16 09/19/16 09/19/16 09/20/16 09/20/16 09/20/16 07:00 15:00 23:00 07:00 15:00 23:00 Intake Total 1278 ml 480 ml 1440 ml 960 ml Output Total 1500 ml 1600 ml Balance -222 ml 480 ml 1440 ml -640 ml Intake Oral 700 ml 480 ml 1440 ml 960 ml IV Total 578 ml Output Urine Total 1500 ml 1600 ml # Voids 4 8 1 # Bowel Movements 2 0 1 Result Diagram: 09/19/16 0550 09/20/16 0323 Imaging Last Impressions Chest X-Ray 09/13/16 0028 Signed Impressions: Service Date/Time: Tuesday, September 13, 2016 01:01 - CONCLUSION: 1. Cardiomegaly. No acute pulmonary disease. Obed Wagner MD Objective Remarks GENERAL: NAD, resting comfortably. SKIN: Warm and dry. HEAD: Normocephalic. EYES: No scleral icterus. No injection or drainage. NECK: Supple, trachea midline. No JVD or lymphadenopathy. CARDIOVASCULAR: Regular rate and rhythm without murmurs, gallops, or rubs. RESPIRATORY: Breath sounds equal bilaterally. No accessory muscle use. GASTROINTESTINAL: Abdomen soft, non-tender, nondistended. MUSCULOSKELETAL: No cyanosis, or edema. BACK: Nontender without obvious deformity. No CVA tenderness. PSYCH: Flattened affect. Procedures None. Medications and IVs Current Medications Medications (Trade) Dose Ordered Sig/Pavel Route Start Time Stop Time Status Last Admin (NS 1000 ml Inj) 1,000 ml @ 70 mls/hr [id number] IV 09/13/16 03:21 09/20/16 01:21 (NS Flush) 2 ml UNSCH PRN FLUSH 09/13/16 03:30 (NS Flush) 2 ml BID FLUSH 09/13/16 09:00 09/20/16 09:09 (Zofran Inj) 4 mg Q6H PRN IVP 09/13/16 03:30 09/17/16 08:12 (Dulcolax Supp) 10 mg DAILY PRN [place] 09/13/16 03:30 (Tylenol) 650 mg Q6H PRN PO 09/13/16 03:30 09/16/16 09:17 (Proair Hfa Inh) 2 puff Q6H PRN INH 09/13/16 03:30 (Folate) 5 mg DAILY PO 09/13/16 09:00 09/20/16 09:05 (Ambien) 5 mg HS PO 09/13/16 21:00 09/19/16 21:03 (Benadryl) 25 mg Q6H PRN PO 09/13/16 11:45 09/20/16 06:24 (Prinivil) 2.5 mg DAILY PO 09/14/16 09:00 09/20/16 09:04 (Toprol Xl) 12.5 mg DAILY PO 09/14/16 09:00 09/20/16 09:04 (Pill Splitter) 1 ea UNSCH PRN OTHER 09/14/16 00:30 (Phenergan Inj) 25 mg Q6H PRN IM 09/16/16 12:00 09/16/16 18:05 (Dilaudid Pf Inj) 1 mg Q3H PRN IV 09/16/16 22:30 09/20/16 09:07 (Colace) 100 mg BID PO 09/17/16 21:00 (Senokot) 17.2 mg DAILY PO 09/18/16 09:00 (Miralax) 17 gm DAILY PO 09/17/16 14:00 09/17/16 14:50 ([place] 10-325 Mg) 1 tab Q4H PRN PO 09/19/16 10:45 09/20/16 10:21 (KCl 40 Meq/30 ml Liq) 40 meq DAILY PO 09/20/16 11:15 A/P Problem List: (1) Acute sickle cell crisis ICD Code: D57.00 Status: Resolved (2) Sickle cell anemia ICD Code: D57.1 Status: Acute (3) Cardiomyopathy ICD Code: I42.9 Status: Chronic Assessment and Plan Ms. Frazier is a 26 year old female with a history of sickle cell disease, cardiomyopathy who presented to the ED due to generalized pain. Acute sickle cell crisis The pt presented with generalized pain. S/p IVFs. Hgb 6.2, transfused 2u pRBCs. Hemoglobin stable 09/19. - [place] 10/325 Q4hrs, Dilaudid 1mg IV Q3hrs PRN breakthrough. - Continue folic acid 5mg Qday. - Consulted patient's forest fire equipment operator Dr. Oropeza. Patient has not taken deferasirox despite being prescribed numerous times. Non-ischemic cardiomyopathy EF 30-35%. NYHA class I heart failure - systolic. Patient has been working with her insurance to find a molasses and caramel operator. - Patient should be on ASAD inhibitor and beta renan. Started Lisinopril 2.5mg Qday and metoprolol succinate 12.5mg Qday. Blood pressure well controlled 09/20. Elevated bilirubin 2.7, bilirubin has been elevated in the past. - Follow-up LFTs. Improved 09/18. Iron overload Ferritin 3700. Hematology recommended iron chelation. - We'll write for [facility] at [facility]. Nausea and vomiting Secondary to the above. - Antiemetics as needed. Hypokalemia/ hypomagnesemia Possibly secondary to decreased by mouth intake. - replete and monitor. - Start standing KCl. Full code. DVT prophylaxis: SCDs. Discharge Planning Awaiting clinical improvement. Jesus Faye DO Sep 20, 2016 11:50
[2016-09-20 12:00] VITALS: BP 121/76; PULSE 70; RESP 16; TEMP 97.6; O2SAT 97
[2016-09-20] MEDS: POTASSIUM CL 40 MEQ/30 ML LIQ UDC PO SCH (14:18)
[2016-09-20 16:00] VITALS: BP 134/91; PULSE 73; RESP 16; TEMP 97.1; O2SAT 97
[2016-09-20 20:00] VITALS: BP 114/74; PULSE 88; RESP 16; TEMP 98.4; O2SAT 99
[2016-09-20] MEDS: ZOLPIDEM TARTRATE 5 MG TAB PO SCH (20:57)
[2016-09-21] VITALS: BP 127/64; PULSE 73; RESP 16; TEMP 97.6; O2SAT 97
[2016-09-21] MEDS: ACETAMINOPHEN/HYDROcodone 325 MG/10 MG TAB PO PRN ×6 (02:34→22:45)
[2016-09-21] MEDS: HYDROmorphone HCL PF 1 MG/ML VIAL IV PRN ×7 (02:58→21:14)
[2016-09-21 04:00] VITALS: BP 129/82; PULSE 76; RESP 18; TEMP 98.1; O2SAT 97
[2016-09-21] MEDS: SODIUM CHLOR 0.9% 1000 ML INJ 1,000 ML IV SCH ×2 (05:57→20:15)
[2016-09-21] MEDS: diphenhydrAMINE HCL 25 MG CAP PO PRN ×4 (05:59→21:13)
[2016-09-21 08:00] VITALS: BP 144/86; PULSE 66; RESP 18; TEMP 97.4; O2SAT 98
[2016-09-21] MEDS: DOCUSATE SODIUM 100 MG CAP PO SCH ×2 (09:00→21:00)
[2016-09-21] MEDS: SENNOSIDES 8.6 MG TAB PO SCH (09:00)
[2016-09-21] MEDS: POLYETHYLENE GLYCOL 17 GM PKG PO SCH (09:00)
[2016-09-21] MEDS: LISINOPRIL 5 MG TAB PO SCH (09:06)
[2016-09-21] MEDS: POTASSIUM CL 40 MEQ/30 ML LIQ UDC PO SCH (09:06)
[2016-09-21] MEDS: FOLIC ACID 1 MG TAB PO SCH (09:06)
[2016-09-21] MEDS: METOPROLOL SUCCINATE 25 MG EXTENDED RELEASE TAB PO SCH (09:06)
[2016-09-21] MEDS: SODIUM CHLORIDE 0.9% FLUSH 5 ML FLUSH FLUSH SCH ×2 (09:07→21:11)
[2016-09-21 12:00] VITALS: BP 121/70; PULSE 73; RESP 16; TEMP 96.9; O2SAT 98
--- NOTE | 2016-09-21 14:08 | HHI.PR ---
Subjective Remarks The patient was feeling all right. She says she may be ready to go home tomorrow. She wanted to keep the pain medications the same. Discussed with nursing. Objective Vitals Vital Signs Date Time Temp Pulse Resp B/P Pulse Ox O2 Delivery O2 Flow Rate FiO2 09/21/16 12:00 96.9 73 16 121/70 98 09/21/16 08:00 97.4 66 18 144/86 98 09/21/16 04:00 98.1 76 18 129/82 97 09/21/16 00:00 97.6 73 16 127/64 97 09/20/16 20:00 98.4 88 16 114/74 99 09/20/16 16:00 97.1 73 16 134/91 97 I/O 09/20/16 09/20/16 09/20/16 09/21/16 09/21/16 09/21/16 07:00 15:00 23:00 07:00 15:00 23:00 Intake Total 960 ml 960 ml 960 ml 1860 ml Output Total 1600 ml 1000 ml 1500 ml 850 ml Balance -640 ml 960 ml -40 ml 360 ml -850 ml Intake Oral 960 ml 960 ml 960 ml 960 ml IV Total 900 ml Output Urine Total 1600 ml 1000 ml 1500 ml 850 ml # Voids 5 # Bowel Movements 0 0 Result Diagram: 09/19/16 0550 09/20/16 0323 Imaging Last Impressions Chest X-Ray 09/13/16 0028 Signed Impressions: Service Date/Time: Tuesday, September 13, 2016 01:01 - CONCLUSION: 1. Cardiomegaly. No acute pulmonary disease. Obed Wagner MD Objective Remarks GENERAL: NAD, resting comfortably. SKIN: Warm and dry. HEAD: Normocephalic. EYES: No scleral icterus. No injection or drainage. NECK: Supple, trachea midline. No JVD or lymphadenopathy. CARDIOVASCULAR: Regular rate and rhythm without murmurs, gallops, or rubs. RESPIRATORY: Breath sounds equal bilaterally. No accessory muscle use. GASTROINTESTINAL: Abdomen soft, non-tender, nondistended. MUSCULOSKELETAL: No cyanosis, or edema. BACK: Nontender without obvious deformity. No CVA tenderness. PSYCH: Flattened affect. Procedures None. Medications and IVs Current Medications Medications (Trade) Dose Ordered Sig/Pavel Route Start Time Stop Time Status Last Admin (NS 1000 ml Inj) 1,000 ml @ 70 mls/hr [id number] IV 09/13/16 03:21 09/21/16 05:57 (NS Flush) 2 ml UNSCH PRN FLUSH 09/13/16 03:30 (NS Flush) 2 ml BID FLUSH 09/13/16 09:00 09/21/16 09:07 (Zofran Inj) 4 mg Q6H PRN IVP 09/13/16 03:30 09/17/16 08:12 (Dulcolax Supp) 10 mg DAILY PRN [place] 09/13/16 03:30 (Tylenol) 650 mg Q6H PRN PO 09/13/16 03:30 09/16/16 09:17 (Proair Hfa Inh) 2 puff Q6H PRN INH 09/13/16 03:30 (Folate) 5 mg DAILY PO 09/13/16 09:00 09/21/16 09:06 (Ambien) 5 mg HS PO 09/13/16 21:00 09/20/16 20:57 (Benadryl) 25 mg Q6H PRN PO 09/13/16 11:45 09/21/16 11:54 (Prinivil) 2.5 mg DAILY PO 09/14/16 09:00 09/21/16 09:06 (Toprol Xl) 12.5 mg DAILY PO 09/14/16 09:00 09/21/16 09:06 (Pill Splitter) 1 ea UNSCH PRN OTHER 09/14/16 00:30 (Phenergan Inj) 25 mg Q6H PRN IM 09/16/16 12:00 09/16/16 18:05 (Dilaudid Pf Inj) 1 mg Q3H PRN IV 09/16/16 22:30 09/21/16 11:55 (Colace) 100 mg BID PO 09/17/16 21:00 (Senokot) 17.2 mg DAILY PO 09/18/16 09:00 (Miralax) 17 gm DAILY PO 09/17/16 14:00 09/17/16 14:50 ([place] 10-325 Mg) 1 tab Q4H PRN PO 09/19/16 10:45 09/21/16 10:30 (KCl 40 Meq/30 ml Liq) 40 meq DAILY PO 09/20/16 11:15 09/21/16 09:06 A/P Problem List: (1) Acute sickle cell crisis ICD Code: D57.00 Status: Resolved (2) Sickle cell anemia ICD Code: D57.1 Status: Acute (3) Cardiomyopathy ICD Code: I42.9 Status: Chronic Assessment and Plan Ms. Frazier is a 26 year old female with a history of sickle cell disease, cardiomyopathy who presented to the ED due to generalized pain. Acute sickle cell crisis The pt presented with generalized pain. S/p IVFs. Hgb 6.2, transfused 2u pRBCs. Hemoglobin stable 09/19. - [place] 10/325 Q4hrs, Dilaudid 1mg IV Q3hrs PRN breakthrough. - Continue folic acid 5mg Qday. - Consulted patient's tie in machine operator Dr. Oropeza. Patient has not taken deferasirox despite being prescribed numerous times. Non-ischemic cardiomyopathy EF 30-35%. NYHA class I heart failure - systolic. Patient has been working with her insurance to find a installers mechanical. - Patient should be on ASAD inhibitor and beta renan. Started Lisinopril 2.5mg Qday and metoprolol succinate 12.5mg Qday. Blood pressure well controlled 09/21. Elevated bilirubin 2.7, bilirubin has been elevated in the past. - Follow-up LFTs. Improved 09/18. Iron overload Ferritin 3700. Hematology recommended iron chelation. - [place]. Nausea and vomiting Secondary to the above. - Antiemetics as needed. Hypokalemia/ hypomagnesemia Possibly secondary to decreased by mouth intake. - replete and monitor. - Start standing KCl. Full code. DVT prophylaxis: SCDs. Discharge Planning Hopefully discharge home in the morning. Jesus Faye DO Sep 21, 2016 14:08
--- NOTE | 2016-09-21 14:09 | HHI.DCPOC ---
Discharge Care Plan Diagnosis: (1) Acute sickle cell crisis (2) Sickle cell anemia (3) Cardiomyopathy (4) Intractable pain Goals to Promote Your Health * To prevent worsening of your condition and complications * To maintain your health at the optimal level Directions to Meet Your Goals Take your medications as prescribed Follow your dietary instruction Follow activity as directed Keep your appointments as scheduled Take your immunizations and boosters as scheduled If your symptoms worsen call your PCP, if no PCP go to Urgent Care Center or Emergency Room Smoking is Dangerous to Your Health. Avoid second hand smoke Call the 24-hour hour crisis hotline for domestic abuse at Jesus Faye DO Sep 21, 2016 14:08
[2016-09-21 16:00] VITALS: BP 134/84; PULSE 77; RESP 18; TEMP 97.2; O2SAT 97
[2016-09-21 20:00] VITALS: BP 121/68; PULSE 73; RESP 18; TEMP 98; O2SAT 96
[2016-09-21] MEDS: ZOLPIDEM TARTRATE 5 MG TAB PO SCH (21:12)
[2016-09-21] MEDS: ONDANSETRON HCL 4 MG/2 ML VIAL IVP PRN (21:28)
[2016-09-22] VITALS: BP 122/76; PULSE 80; RESP 19; TEMP 98.6; O2SAT 97
[2016-09-22] MEDS: HYDROmorphone HCL PF 1 MG/ML VIAL IV PRN ×8 (00:14→23:01)
[2016-09-22] MEDS: ACETAMINOPHEN/HYDROcodone 325 MG/10 MG TAB PO PRN ×5 (02:53→22:42)
[2016-09-22] MEDS: diphenhydrAMINE HCL 25 MG CAP PO PRN ×4 (04:11→23:00)
[2016-09-22 07:30] VITALS: BP 121/67; PULSE 64; RESP 20; TEMP 97.7; O2SAT 100
[2016-09-22] MEDS: SODIUM CHLORIDE 0.9% FLUSH 5 ML FLUSH FLUSH SCH ×2 (07:45→21:00)
[2016-09-22] MEDS: POTASSIUM CL 40 MEQ/30 ML LIQ UDC PO SCH (08:05)
[2016-09-22] MEDS: FOLIC ACID 1 MG TAB PO SCH (08:06)
[2016-09-22] MEDS: LISINOPRIL 5 MG TAB PO SCH (08:06)
[2016-09-22] MEDS: METOPROLOL SUCCINATE 25 MG EXTENDED RELEASE TAB PO SCH (08:06)
[2016-09-22] MEDS: POLYETHYLENE GLYCOL 17 GM PKG PO SCH (08:10)
[2016-09-22] MEDS: DOCUSATE SODIUM 100 MG CAP PO SCH ×2 (08:11→21:00)
[2016-09-22] MEDS: SENNOSIDES 8.6 MG TAB PO SCH (08:11)
[2016-09-22] MEDS: SODIUM CHLOR 0.9% 1000 ML INJ 1,000 ML IV SCH ×2 (11:20→23:02)
[2016-09-22 11:50] VITALS: BP 120/75; PULSE 89; RESP 20; TEMP 97.9; O2SAT 97
[2016-09-22 15:50] VITALS: BP 136/85; PULSE 80; RESP 20; TEMP 99.3; O2SAT 99
--- NOTE | 2016-09-22 16:08 | HHI.PR ---
Subjective Remarks Patient complains of left flank pain rated 8/10, nonradiating Denies fevers or chills And I chest pain or shortness of breath Complains of some leg pain States she does not feel ready to go home yet Objective Vitals Vital Signs Date Time Temp Pulse Resp B/P Pulse Ox O2 Delivery O2 Flow Rate FiO2 09/22/16 11:50 97.9 89 20 120/75 97 09/22/16 07:30 97.7 64 20 121/67 100 09/22/16 04:52 16 09/22/16 04:06 16 09/22/16 00:00 98.6 80 19 122/76 97 09/21/16 20:00 98.0 73 18 121/68 96 09/21/16 16:00 97.2 77 18 134/84 97 I/O 09/21/16 09/21/16 09/21/16 09/22/16 09/22/16 09/22/16 07:00 15:00 23:00 07:00 15:00 23:00 Intake Total 1860 ml 1200 ml 1680 ml 480 ml Output Total 1500 ml 1050 ml 2000 ml 2000 ml Balance 360 ml 150 ml -320 ml -1520 ml Intake Oral 960 ml 1200 ml 1680 ml 480 ml IV Total 900 ml Output Urine Total 1500 ml 1050 ml 2000 ml 2000 ml # Bowel Movements 0 0 0 Result Diagram: 09/19/16 0550 09/20/16 0323 Imaging Last Impressions Chest X-Ray 09/13/16 0028 Signed Impressions: Service Date/Time: Tuesday, September 13, 2016 01:01 - CONCLUSION: 1. Cardiomegaly. No acute pulmonary disease. Obed Wagner MD Objective Remarks GENERAL: NAD, resting comfortably. SKIN: Warm and dry. HEAD: Normocephalic. EYES: No scleral icterus. No injection or drainage. NECK: Supple, trachea midline. No JVD or lymphadenopathy. CARDIOVASCULAR: Regular rate and rhythm without murmurs, gallops, or rubs. RESPIRATORY: Breath sounds equal bilaterally. No accessory muscle use. GASTROINTESTINAL: Abdomen soft, non-tender, nondistended. MUSCULOSKELETAL: No cyanosis, or edema. BACK: Nontender without obvious deformity. Left CVA tenderness PSYCH: Flattened affect. Procedures None. Medications and IVs Current Medications Medications (Trade) Dose Ordered Sig/Pavel Route Start Time Stop Time Status Last Admin (NS 1000 ml Inj) 1,000 ml @ 70 mls/hr [id number] IV 09/13/16 03:21 09/22/16 11:20 (NS Flush) 2 ml UNSCH PRN FLUSH 09/13/16 03:30 (NS Flush) 2 ml BID FLUSH 09/13/16 09:00 09/22/16 07:45 (Zofran Inj) 4 mg Q6H PRN IVP 09/13/16 03:30 09/21/16 21:28 (Dulcolax Supp) 10 mg DAILY PRN [place] 09/13/16 03:30 (Tylenol) 650 mg Q6H PRN PO 09/13/16 03:30 09/16/16 09:17 (Proair Hfa Inh) 2 puff Q6H PRN INH 09/13/16 03:30 (Folate) 5 mg DAILY PO 09/13/16 09:00 09/22/16 08:06 (Ambien) 5 mg HS PO 09/13/16 21:00 09/21/16 21:12 (Benadryl) 25 mg Q6H PRN PO 09/13/16 11:45 09/22/16 10:55 (Prinivil) 2.5 mg DAILY PO 09/14/16 09:00 09/22/16 08:06 (Toprol Xl) 12.5 mg DAILY PO 09/14/16 09:00 09/22/16 08:06 (Pill Splitter) 1 ea UNSCH PRN OTHER 09/14/16 00:30 (Phenergan Inj) 25 mg Q6H PRN IM 09/16/16 12:00 09/16/16 18:05 (Dilaudid Pf Inj) 1 mg Q3H PRN IV 09/16/16 22:30 09/22/16 13:46 (Colace) 100 mg BID PO 09/17/16 21:00 (Senokot) 17.2 mg DAILY PO 09/18/16 09:00 (Miralax) 17 gm DAILY PO 09/17/16 14:00 09/17/16 14:50 ([place] 10-325 Mg) 1 tab Q4H PRN PO 09/19/16 10:45 09/22/16 12:55 (KCl 40 Meq/30 ml Liq) 40 meq DAILY PO 09/20/16 11:15 09/22/16 08:05 A/P Problem List: (1) Sickle cell crisis ICD Code: D57.00 Status: Acute Plan: The patient presented with generalized pain. Patient's hemoglobin was 6.2, was confused units of packed red blood cells. Hemoglobin stable 09/19 at 9.0. Pain control provided with [place] Dilaudid for breakthrough Continue folic acid 5 mg every day. Patient's departmental secretary Dr. Oropeza was consulted. The patient has not taken deferasirox despite being prescribed numerous times. Will check CBC, LDH, haptoglobin and liver enzymes including bilirubin to monitor for sickle cell crisis. (2) Non-ischemic cardiomyopathy ICD Code: I42.8 Status: Acute Plan: Patient with EF 30-35%. Patient with NYHA class I heart failure systolic. Patient has been following with her insurance to find a silversmith apprentice. Patient started on lisinopril 2.5 mg daily metoprolol succinate 12.5 mg daily. Blood pressure stable. (3) Elevated bilirubin ICD Code: R17 Status: Acute Plan: Patient with elevated bilirubin on admission which trended down. Much improved on 119. I will reorder labs in a.m. 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 Hematology has recommended iron chelation. The patient will be written a prescription for Exjade at discharge. (5) Nausea & vomiting ICD Code: R11.2 Status: Resolved Plan: Patient denies nausea or vomiting. Continue antiemetics as needed. (6) Hypomagnesemia ICD Code: E83.42 Status: Resolved Plan: Continue to replete and monitor as needed. Likely due to poor oral intake. (7) Hypokalemia ICD Code: E87.6 Status: Resolved Plan: Continue to monitor and replace as needed. (8) Acute left flank pain ICD Code: R10.9 Status: Acute Plan: Could be secondary to acute crisis, however UTI needs to be ruled out. Check urinalysis. Patient also has left CVA tenderness. Discharge Planning Possible discharge in a.m. pending urinalysis and labs. Omero Beavers MD Sep 22, 2016 16:08
[2016-09-22 20:00] VITALS: BP 130/71; PULSE 87; RESP 16; TEMP 99.2; O2SAT 97
[2016-09-22 21:12] LABS: MEAN CORPUSCULAR HGB CONC 36.6 % (32.0-36.0)
[2016-09-22] MEDS: ZOLPIDEM TARTRATE 5 MG TAB PO SCH (22:42)
[2016-09-23] VITALS: BP 136/75; PULSE 82; RESP 18; TEMP 99.6; O2SAT 97
[2016-09-23] MEDS: HYDROmorphone HCL PF 1 MG/ML VIAL IV PRN ×8 (02:03→23:34)
[2016-09-23 02:20] LABS: AUTOMATED NEUTROPHIL # 10.5 TH/MM3 (1.8-7.7); BASOPHIL # 0.1 TH/MM3 (0-0.2); BASOPHIL % 0.6 % (0.0-2.0); EOSINOPHIL # 0.5 TH/MM3 (0-0.4); EOSINOPHIL % 3.1 % (0.0-4.0); HEMATOCRIT 24.6 % (35.0-46.0); LYMPHOCYTE # 3.6 TH/MM3 (1.0-4.8); MEAN CELL VOLUME 81.8 FL (80.0-100.0); MEAN CORPUSCULAR HEMOGLOBIN 29.9 PG (27.0-34.0); MONO % 10.3 % (0.0-8.0); PLATELET COUNT 380 TH/MM3 (150-450); RED CELL DISTRIBUTION WIDTH 16.9 % (11.6-17.2); WHITE BLOOD COUNT 16.4 TH/MM3 (4.0-11.0)
[2016-09-23 02:23] LABS: BACTERIA, URINE OCC /hpf; BLOOD, URINE NEG (NEG); COMMENT (UR) CULT NOT INDICATED; CULTURE IF INDICATED CULT NOT INDICATED; GLUCOSE,URINE NEG (NEG); KETONE, URINE NEG (NEG); NITRITE,URINE NEG (NEG); SQUAMOUS EPITHELIAL CELL URINE <1 /hpf (0-5); URINE COLOR LIGHT-YELLOW (YELLW/STRAW)
[2016-09-23 02:34] LABS: HEMO FLAGS AUTO DIFF
[2016-09-23 02:45] LABS: ALKALINE PHOSPHATASE 92 U/L (45-117); TOTAL BILIRUBIN ADULT 1.4 MG/DL (0.2-1.0)
[2016-09-23 02:47] LABS: ALT (GPT) 32 U/L (10-53); ANION GAP 9 MEQ/L (5-15); AST (GOT) 61 U/L (15-37); BICARBONATE 25.9 MEQ/L (21.0-32.0); CHLORIDE 105 MEQ/L (98-107); GLOMERULAR FILTRATION RATE 132 ML/MIN (>89); LDH SERUM 400 U/L (84-246); MAGNESIUM 1.4 MG/DL (1.5-2.5); POTASSIUM 3.7 MEQ/L (3.5-5.1); SODIUM (NA) 140 MEQ/L (136-145)
[2016-09-23] MEDS: ACETAMINOPHEN/HYDROcodone 325 MG/10 MG TAB PO PRN ×3 (02:49→19:45)
[2016-09-23 02:50] LABS: BLOOD UREA NITROGEN 10 MG/DL (7-18)
[2016-09-23 03:15] LABS: SCAN/DIFF AUTO DIFF CONFIRMED
[2016-09-23 03:16] LABS: HOWELL-JOLLY BODIES PRESENT (NONE SEEN)
[2016-09-23 04:00] VITALS: BP 118/62; PULSE 67; RESP 16; TEMP 98.8; O2SAT 98
[2016-09-23] MEDS: diphenhydrAMINE HCL 25 MG CAP PO PRN ×4 (05:03→23:40)
[2016-09-23] MEDS: POTASSIUM CL 40 MEQ/30 ML LIQ UDC PO SCH (07:54)
[2016-09-23] MEDS: METOPROLOL SUCCINATE 25 MG EXTENDED RELEASE TAB PO SCH (07:55)
[2016-09-23] MEDS: LISINOPRIL 5 MG TAB PO SCH (07:55)
[2016-09-23] MEDS: DOCUSATE SODIUM 100 MG CAP PO SCH ×2 (07:56→21:00)
[2016-09-23] MEDS: SENNOSIDES 8.6 MG TAB PO SCH (07:56)
[2016-09-23] MEDS: FOLIC ACID 1 MG TAB PO SCH (07:56)
[2016-09-23] MEDS: SODIUM CHLORIDE 0.9% FLUSH 5 ML FLUSH FLUSH SCH ×2 (07:56→19:46)
[2016-09-23] MEDS: POLYETHYLENE GLYCOL 17 GM PKG PO SCH (07:56)
[2016-09-23 08:52] VITALS: BP 118/70; PULSE 74; RESP 20; TEMP 98.5; O2SAT 99
[2016-09-23] MEDS ORDERED: MAGNESIUM SULFATE 1 GM PREMIX 100 ML IV ONE (10:00)
[2016-09-23 10:40] LABS: RETIC % 1.6 % (0.4-3.0)
[2016-09-23 10:46] LABS: REVIEW FLAG FINAL
[2016-09-23 12:00] VITALS: BP 113/63; PULSE 75; RESP 20; TEMP 98; O2SAT 98
[2016-09-23] MEDS: SODIUM CHLOR 0.9% 1000 ML INJ 1,000 ML IV SCH (15:09)
[2016-09-23 16:00] VITALS: BP 125/75; PULSE 82; RESP 20; TEMP 99.1; O2SAT 98
--- NOTE | 2016-09-23 17:35 | HHI.PR ---
Subjective Remarks Patient still c/o generalized pain denies cp/sob pain is worst in left flank denies fevers/chills Objective Vitals Vital Signs Date Time Temp Pulse Resp B/P Pulse Ox O2 Delivery O2 Flow Rate FiO2 09/23/16 16:00 99.1 82 20 125/75 98 09/23/16 12:00 98.0 75 20 113/63 98 09/23/16 08:52 98.5 74 20 118/70 99 09/23/16 04:00 98.8 67 16 118/62 98 09/23/16 00:00 99.6 82 18 136/75 97 09/22/16 20:00 99.2 87 16 130/71 97 I/O 09/22/16 09/22/16 09/22/16 09/23/16 09/23/16 09/23/16 07:00 15:00 23:00 07:00 15:00 23:00 Intake Total 480 ml 702 ml 900 ml 960 ml 480 ml Output Total 2000 ml 2050 ml 800 ml Balance -1520 ml 702 ml 900 ml -1090 ml -320 ml Intake Oral 480 ml 702 ml 900 ml 960 ml 480 ml Output Urine Total 2000 ml 2050 ml 800 ml # Voids 1 3 # Bowel Movements 0 0 Result Diagram: 09/23/16 0200 09/23/16 0200 Imaging Last Impressions Chest X-Ray 09/13/16 0028 Signed Impressions: Service Date/Time: Tuesday, September 13, 2016 01:01 - CONCLUSION: 1. Cardiomegaly. No acute pulmonary disease. Obed Wagner MD Objective Remarks GENERAL: NAD, resting comfortably. SKIN: Warm and dry. HEAD: Normocephalic. EYES: No scleral icterus. No injection or drainage. NECK: Supple, trachea midline. No JVD or lymphadenopathy. CARDIOVASCULAR: Regular rate and rhythm without murmurs, gallops, or rubs. RESPIRATORY: Breath sounds equal bilaterally. No accessory muscle use. GASTROINTESTINAL: Abdomen soft, non-tender, nondistended. MUSCULOSKELETAL: No cyanosis, or edema. BACK: Nontender without obvious deformity. Left CVA tenderness PSYCH: Flattened affect. Procedures None. Medications and IVs Current Medications Medications (Trade) Dose Ordered Sig/Pavel Route Start Time Stop Time Status Last Admin (NS 1000 ml Inj) 1,000 ml @ 70 mls/hr [id number] IV 09/13/16 03:21 09/23/16 15:09 (NS Flush) 2 ml UNSCH PRN FLUSH 09/13/16 03:30 (NS Flush) 2 ml BID FLUSH 09/13/16 09:00 09/23/16 07:56 (Zofran Inj) 4 mg Q6H PRN IVP 09/13/16 03:30 09/21/16 21:28 (Dulcolax Supp) 10 mg DAILY PRN [place] 09/13/16 03:30 (Tylenol) 650 mg Q6H PRN PO 09/13/16 03:30 09/16/16 09:17 (Proair Hfa Inh) 2 puff Q6H PRN INH 09/13/16 03:30 (Folate) 5 mg DAILY PO 09/13/16 09:00 09/23/16 07:56 (Ambien) 5 mg HS PO 09/13/16 21:00 09/22/16 22:42 (Benadryl) 25 mg Q6H PRN PO 09/13/16 11:45 09/23/16 16:50 (Prinivil) 2.5 mg DAILY PO 09/14/16 09:00 09/23/16 07:55 (Toprol Xl) 12.5 mg DAILY PO 09/14/16 09:00 09/23/16 07:55 (Pill Splitter) 1 ea UNSCH PRN OTHER 09/14/16 00:30 (Phenergan Inj) 25 mg Q6H PRN IM 09/16/16 12:00 09/16/16 18:05 (Dilaudid Pf Inj) 1 mg Q3H PRN IV 09/16/16 22:30 09/23/16 16:49 (Colace) 100 mg BID PO 09/17/16 21:00 (Senokot) 17.2 mg DAILY PO 09/18/16 09:00 (Miralax) 17 gm DAILY PO 09/17/16 14:00 09/17/16 14:50 ([place] 10-325 Mg) 1 tab Q4H PRN PO 09/19/16 10:45 09/23/16 07:04 (KCl 40 Meq/30 ml Liq) 40 meq DAILY PO 09/20/16 11:15 09/23/16 07:54 Urinary Catheter: No Vascular Central Line Catheter: No A/P Problem List: (1) Sickle cell crisis ICD Code: D57.00 Status: Acute Plan: The patient presented with generalized pain. Sp transfusion of 2 units of PRBC's. Pain control provided with [place], Dilaudid for breakthrough Continue folic acid 5 mg every day. Patient's health insurance sales agent Dr. Oropeza was consulted. The patient has not taken deferasirox despite being prescribed numerous times. LDH elevated at 400, haptoglobin is low at 10, retic count is within normal range, patient still hemolyzing and still with generalized pain consistent with vasoocclusive crisis. continue IVF, supplemental oxygen, pain control Total bilirrubin trending down to 1.4 (2) Non-ischemic cardiomyopathy ICD Code: I42.8 Status: Acute Plan: Patient with EF 30-35%. Patient with NYHA class I heart failure systolic. Patient has been following with her insurance to find a appeals examiner. Patient started on lisinopril 2.5 mg daily metoprolol succinate 12.5 mg daily. Blood pressure stable. (3) Elevated bilirubin ICD Code: R17 Status: Acute Plan: Patient with elevated bilirubin on admission due to sickle cell crisis. Predominance of increased indirect bilirubin. Bilirrubin trending down, continue to monitor. 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 Hematology has recommended iron chelation. The patient will be written a prescription for Exjade at discharge. (5) Nausea & vomiting ICD Code: R11.2 Status: Resolved Plan: Patient denies nausea or vomiting. Continue antiemetics as needed. (6) Hypomagnesemia ICD Code: E83.42 Status: Resolved Plan: Continue to replete and monitor as needed. Likely due to poor oral intake. (7) Hypokalemia ICD Code: E87.6 Status: Resolved Plan: Continue to monitor and replace as needed. today 3.7 - WNL (8) Acute left flank pain ICD Code: R10.9 Status: Acute Plan: UA negative. no evidence of occult blood. Likely due to vasoocclusive crisis. Assessment and Plan DVT proph: SCD's, no chemoprophylaxis due to hemolytic anemia GI Prophylaxis. PPI Discharge Planning Possible discharge in a.m. pending urinalysis and labs. Omero Beavers MD Sep 23, 2016 17:35
[2016-09-23] MEDS: ZOLPIDEM TARTRATE 5 MG TAB PO SCH (19:45)
[2016-09-23 20:00] VITALS: BP 135/78; PULSE 79; RESP 16; TEMP 99.1; O2SAT 100
[2016-09-24] VITALS: BP 112/68; PULSE 97; RESP 16; TEMP 98; O2SAT 97
[2016-09-24] MEDS: ACETAMINOPHEN/HYDROcodone 325 MG/10 MG TAB PO PRN ×5 (01:00→22:00)
[2016-09-24] MEDS: HYDROmorphone HCL PF 1 MG/ML VIAL IV PRN ×7 (02:45→22:46)
[2016-09-24 05:18] VITALS: BP 114/66; PULSE 78; RESP 16; TEMP 98.6; O2SAT 98
[2016-09-24] MEDS: diphenhydrAMINE HCL 25 MG CAP PO PRN ×3 (06:11→19:44)
[2016-09-24] MEDS: SODIUM CHLOR 0.9% 1000 ML INJ 1,000 ML IV SCH ×2 (06:12→19:47)
[2016-09-24 08:00] VITALS: BP 136/72; PULSE 69; RESP 18; TEMP 98.3; O2SAT 100
[2016-09-24] MEDS: SODIUM CHLORIDE 0.9% FLUSH 5 ML FLUSH FLUSH SCH ×2 (08:09→19:47)
[2016-09-24] MEDS: DOCUSATE SODIUM 100 MG CAP PO SCH ×2 (08:09→19:47)
[2016-09-24] MEDS: SENNOSIDES 8.6 MG TAB PO SCH (08:09)
[2016-09-24] MEDS: POLYETHYLENE GLYCOL 17 GM PKG PO SCH (08:09)
[2016-09-24] MEDS: FOLIC ACID 1 MG TAB PO SCH (09:04)
[2016-09-24] MEDS: POTASSIUM CL 40 MEQ/30 ML LIQ UDC PO SCH (09:05)
[2016-09-24] MEDS: LISINOPRIL 5 MG TAB PO SCH (09:05)
[2016-09-24] MEDS: METOPROLOL SUCCINATE 25 MG EXTENDED RELEASE TAB PO SCH (09:06)
[2016-09-24 09:45] LABS: RETIC % 2.3 % (0.4-3.0); REVIEW FLAG FINAL
[2016-09-24 10:15] LABS: ALKALINE PHOSPHATASE 89 U/L (45-117); ALT (GPT) 34 U/L (10-53); ANION GAP 8 MEQ/L (5-15); AST (GOT) 71 U/L (15-37); BICARBONATE 26.6 MEQ/L (21.0-32.0); BLOOD UREA NITROGEN 6 MG/DL (7-18); CHLORIDE 101 MEQ/L (98-107); GLOMERULAR FILTRATION RATE 137 ML/MIN (>89); LDH SERUM 394 U/L (84-246); SODIUM (NA) 136 MEQ/L (136-145); TOTAL BILIRUBIN ADULT 1.4 MG/DL (0.2-1.0)
--- NOTE | 2016-09-24 11:13 | HHI.PR ---
Subjective Remarks fu sickle cell vasoocclusive crisis Patient c/o generalized pain however states it is now a 6 denies fevers/chills denies cough denies cp/sob vital signs remain stable Objective Vitals Vital Signs Date Time Temp Pulse Resp B/P Pulse Ox O2 Delivery O2 Flow Rate FiO2 09/24/16 08:00 98.3 69 18 136/72 100 09/24/16 05:18 98.6 78 16 114/66 98 09/24/16 00:00 98.0 97 16 112/68 97 09/23/16 20:00 99.1 79 16 135/78 100 09/23/16 16:00 99.1 82 20 125/75 98 09/23/16 12:00 98.0 75 20 113/63 98 I/O 09/23/16 09/23/16 09/23/16 09/24/16 09/24/16 09/24/16 07:00 15:00 23:00 07:00 15:00 23:00 Intake Total 960 ml 980 ml 1368 ml Output Total 2050 ml 2800 ml 2000 ml Balance -1090 ml -1820 ml -632 ml Intake Oral 960 ml 980 ml 450 ml IV Total 918 ml Output Urine Total 2050 ml 2800 ml 2000 ml # Bowel Movements 1 0 Result Diagram: 09/23/16 0200 09/24/16 0915 Imaging Last Impressions Chest X-Ray 09/13/16 0028 Signed Impressions: Service Date/Time: Tuesday, September 13, 2016 01:01 - CONCLUSION: 1. Cardiomegaly. No acute pulmonary disease. Obed Wagner MD Objective Remarks GENERAL: NAD, resting comfortably. SKIN: Warm and dry. HEAD: Normocephalic. EYES: No scleral icterus. No injection or drainage. NECK: Supple, trachea midline. No JVD or lymphadenopathy. CARDIOVASCULAR: Regular rate and rhythm without murmurs, gallops, or rubs. RESPIRATORY: Breath sounds equal bilaterally. No accessory muscle use. GASTROINTESTINAL: Abdomen soft, non-tender, nondistended. MUSCULOSKELETAL: No cyanosis, or edema. BACK: Nontender without obvious deformity. Left CVA tenderness PSYCH: Flattened affect. Procedures None. Medications and IVs Current Medications Medications (Trade) Dose Ordered Sig/Pavel Route Start Time Stop Time Status Last Admin (NS 1000 ml Inj) 000 ml @ 70 mls/hr [id number] IV 09/13/16 03:21 09/24/16 06:12 (NS Flush) 2 ml UNSCH PRN FLUSH 09/13/16 03:30 (NS Flush) 2 ml BID FLUSH 09/13/16 09:00 09/23/16 07:56 (Zofran Inj) 4 mg Q6H PRN IVP 09/13/16 03:30 09/21/16 21:28 (Dulcolax Supp) 10 mg DAILY PRN [place] 09/13/16 03:30 (Tylenol) 650 mg Q6H PRN PO 09/13/16 03:30 09/16/16 09:17 (Proair Hfa Inh) 2 puff Q6H PRN INH 09/13/16 03:30 (Folate) 5 mg DAILY PO 09/13/16 09:00 09/24/16 09:04 (Ambien) 5 mg HS PO 09/13/16 21:00 09/23/16 19:45 (Benadryl) 25 mg Q6H PRN PO 09/13/16 11:45 09/24/16 06:11 (Prinivil) 2.5 mg DAILY PO 09/14/16 09:00 09/24/16 09:05 (Toprol Xl) 12.5 mg DAILY PO 09/14/16 09:00 09/24/16 09:06 (Pill Splitter) 1 ea UNSCH PRN OTHER 09/14/16 00:30 (Phenergan Inj) 25 mg Q6H PRN IM 09/16/16 12:00 09/16/16 18:05 (Dilaudid Pf Inj) 1 mg Q3H PRN IV 09/16/16 22:30 09/24/16 09:07 (Colace) 100 mg BID PO 09/17/16 21:00 (Senokot) 17.2 mg DAILY PO 09/18/16 09:00 (Miralax) 17 gm DAILY PO 09/17/16 14:00 09/17/16 14:50 ([place] 10-325 Mg) 1 tab Q4H PRN PO 09/19/16 10:45 09/24/16 05:07 (KCl 40 Meq/30 ml Liq) 40 meq DAILY PO 09/20/16 11:15 09/24/16 09:05 Urinary Catheter: No Vascular Central Line Catheter: No A/P Problem List: (1) Sickle cell crisis ICD Code: D57.00 Status: Acute (2) Non-ischemic cardiomyopathy ICD Code: I42.8 Status: Acute (3) Elevated bilirubin ICD Code: R17 Status: Acute (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 Sp transfusion of 2 units of PRBC's. Pain control provided with [place], Dilaudid for breakthrough Continue folic acid 5 mg every day. Patient's industrial organization manager Dr. Oropeza was consulted. The patient has not taken deferasirox despite being prescribed numerous times. Patient still shows signs of hemolysis on labs although with LDH trending down and still low haptoglobin and generalized pain which seems to be improving. continue IVF, supplemental oxygen, pain control (2) Non-ischemic cardiomyopathy Plan: Patient with EF 30-35%. Patient with NYHA class I heart failure systolic. Patient has been following with her insurance to find a conventional underwriter. Patient was seen by Dr Boggs on 2015 however as per those records she declined to follow up with him. Patient started on lisinopril 2.5 mg daily metoprolol succinate 12.5 mg daily. Blood pressure stable. (3) Elevated bilirubin Plan: Patient with elevated bilirubin on admission due to sickle cell crisis. Predominance of increased indirect bilirubin. Bilirrubin trending down, continue to monitor. 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 Hematology has recommended iron chelation. The patient will be written a prescription for Exjade at discharge. (5) Nausea & vomiting Plan: Resolved. Patient denies nausea or vomiting. Continue antiemetics as needed. (6) Hypomagnesemia Plan: Continue to replete and monitor as needed. Likely due to poor oral intake. (7) Hypokalemia Plan: Continue to monitor and replace as needed. (8) Acute left flank pain Plan: UA negative. no evidence of occult blood. Likely due to vasoocclusive crisis. DVT proph: SCD's, no chemoprophylaxis due to hemolytic anemia GI Prophylaxis. PPI Discharge Planning Possible discharge in a.m. pending urinalysis and labs. Omero Beavers MD Sep 24, 2016 11:13 Assessment and Plan DVT proph: SCD's, no chemoprophylaxis due to hemolytic anemia GI Prophylaxis. PPI DVT proph: SCD's, no chemoprophylaxis due to hemolytic anemia GI Prophylaxis. PPI Discharge Planning Possible discharge in a.m. pending urinalysis and labs. Omero Beavers MD Sep 24, 2016 11:13
[2016-09-24 12:00] VITALS: BP 120/71; PULSE 80; RESP 16; TEMP 98.7; O2SAT 98
[2016-09-24 16:00] VITALS: BP 102/62; PULSE 83; RESP 16; TEMP 98.3; O2SAT 97
[2016-09-24] MEDS: ZOLPIDEM TARTRATE 5 MG TAB PO SCH (19:47)
[2016-09-24 21:31] VITALS: BP 143/79; PULSE 75; RESP 16; TEMP 99.4; O2SAT 96
[2016-09-25 00:27] VITALS: BP 114/59; PULSE 84; RESP 16; TEMP 98.8; O2SAT 97
[2016-09-25] MEDS: HYDROmorphone HCL PF 1 MG/ML VIAL IV PRN ×8 (01:43→23:30)
[2016-09-25] MEDS: ACETAMINOPHEN/HYDROcodone 325 MG/10 MG TAB PO PRN ×6 (02:15→23:02)
[2016-09-25] MEDS: diphenhydrAMINE HCL 25 MG CAP PO PRN ×4 (04:40→23:30)
[2016-09-25 04:50] VITALS: BP 106/56; PULSE 97; RESP 16; TEMP 98.2; O2SAT 97
[2016-09-25 06:18] LABS: AUTOMATED NEUTROPHIL # 9.3 TH/MM3 (1.8-7.7); BASOPHIL # 0.5 TH/MM3 (0-0.2); EOSINOPHIL # 0.8 TH/MM3 (0-0.4); EOSINOPHIL % 4.6 % (0.0-4.0); HEMATOCRIT 25.2 % (35.0-46.0); LYMPH % 26.2 % (9.0-44.0); LYMPHOCYTE # 4.4 TH/MM3 (1.0-4.8); MEAN CORPUSCULAR HEMOGLOBIN 27.8 PG (27.0-34.0); MEAN CORPUSCULAR HGB CONC 33.5 % (32.0-36.0); MONO % 10.5 % (0.0-8.0); NEUT % 55.7 % (16.0-70.0); PLATELET COUNT 404 TH/MM3 (150-450); RED BLOOD COUNT 3.04 MIL/MM3 (4.00-5.30); RED CELL DISTRIBUTION WIDTH 17.1 % (11.6-17.2); WHITE BLOOD COUNT 16.6 TH/MM3 (4.0-11.0)
[2016-09-25 06:19] LABS: HEMO FLAGS AUTO DIFF
[2016-09-25 06:23] LABS: RETIC % 2.3 % (0.4-3.0); REVIEW FLAG FINAL
[2016-09-25 06:41] LABS: INDIRECT BILIRUBIN 0.9 MG/DL (0.0-0.8); TOTAL BILIRUBIN ADULT 1.1 MG/DL (0.2-1.0)
[2016-09-25 07:41] LABS: SCAN/DIFF AUTO DIFF CONFIRMED
[2016-09-25 07:43] LABS: KERATOCYTES OCC (NORMAL); TARGET CELLS 1+ (NORMAL)
[2016-09-25 07:50] VITALS: BP 114/56; PULSE 84; RESP 16; TEMP 99; O2SAT 98
[2016-09-25] MEDS: SODIUM CHLORIDE 0.9% FLUSH 5 ML FLUSH FLUSH SCH ×2 (07:55→20:34)
[2016-09-25] MEDS: POTASSIUM CL 40 MEQ/30 ML LIQ UDC PO SCH (07:55)
[2016-09-25] MEDS: FOLIC ACID 1 MG TAB PO SCH (07:59)
[2016-09-25] MEDS: SODIUM CHLOR 0.9% 1000 ML INJ 1,000 ML IV SCH ×2 (07:59→23:42)
[2016-09-25] MEDS: POLYETHYLENE GLYCOL 17 GM PKG PO SCH (08:06)
[2016-09-25] MEDS: SENNOSIDES 8.6 MG TAB PO SCH (08:06)
[2016-09-25] MEDS: DOCUSATE SODIUM 100 MG CAP PO SCH ×2 (08:06→20:32)
--- NOTE | 2016-09-25 10:10 | HHI.PR ---
Subjective Remarks Patient states her pain still present but better Denies chest pain or shortness of breath Denies fevers or chills Stable vital signs Objective Vitals Vital Signs Date Time Temp Pulse Resp B/P Pulse Ox O2 Delivery O2 Flow Rate FiO2 09/25/16 04:50 98.2 97 16 106/56 97 09/25/16 00:27 98.8 84 16 114/59 97 09/24/16 21:31 99.4 75 16 143/79 96 09/24/16 16:00 98.3 83 16 102/62 97 09/24/16 12:00 98.7 80 16 120/71 98 I/O 09/24/16 09/24/16 09/24/16 09/25/16 09/25/16 09/25/16 07:00 15:00 23:00 07:00 15:00 23:00 Intake Total 1368 ml 1520 ml 500 ml 750 ml 1540 ml Output Total 2000 ml 2000 ml 1500 ml Balance -632 ml 1520 ml -1500 ml -750 ml 1540 ml Intake Oral 450 ml 960 ml 500 ml 750 ml IV Total 918 ml 560 ml 1540 ml Output Urine Total 2000 ml 2000 ml 1500 ml # Voids 4 # Bowel Movements 0 1 0 Result Diagram: 09/25/16 0440 09/24/16 0915 Imaging Last Impressions Chest X-Ray 09/13/16 0028 Signed Impressions: Service Date/Time: Tuesday, September 13, 2016 01:01 - CONCLUSION: 1. Cardiomegaly. No acute pulmonary disease. Obed Wagner MD Objective Remarks GENERAL: NAD, resting comfortably. SKIN: Warm and dry. HEAD: Normocephalic. EYES: No scleral icterus. No injection or drainage. NECK: Supple, trachea midline. No JVD or lymphadenopathy. CARDIOVASCULAR: Regular rate and rhythm without murmurs, gallops, or rubs. RESPIRATORY: Breath sounds equal bilaterally. No accessory muscle use. GASTROINTESTINAL: Abdomen soft, non-tender, nondistended. MUSCULOSKELETAL: No cyanosis, or edema. BACK: Nontender without obvious deformity. Left CVA tenderness PSYCH: Flattened affect. Procedures None. Medications and IVs Current Medications Medications (Trade) Dose Ordered Sig/Pavel Route Start Time Stop Time Status Last Admin (NS 1000 ml Inj) 1,000 ml @ 70 mls/hr [id number] IV 09/13/16 03:21 09/25/16 07:59 (NS Flush) 2 ml UNSCH PRN FLUSH 09/13/16 03:30 (NS Flush) 2 ml BID FLUSH 09/13/16 09:00 09/25/16 07:55 (Zofran Inj) 4 mg Q6H PRN IVP 09/13/16 03:30 09/21/16 21:28 (Dulcolax Supp) 10 mg DAILY PRN [place] 09/13/16 03:30 (Tylenol) 650 mg Q6H PRN PO 09/13/16 03:30 09/16/16 09:17 (Proair Hfa Inh) 2 puff Q6H PRN INH 09/13/16 03:30 (Folate) 5 mg DAILY PO 09/13/16 09:00 09/25/16 07:59 (Ambien) 5 mg HS PO 09/13/16 21:00 09/24/16 19:47 (Benadryl) 25 mg Q6H PRN PO 09/13/16 11:45 09/25/16 11:21 (Prinivil) 2.5 mg DAILY PO 09/14/16 09:00 09/25/16 10:44 (Toprol Xl) 12.5 mg DAILY PO 09/14/16 09:00 09/25/16 10:44 (Pill Splitter) 1 ea UNSCH PRN OTHER 09/14/16 00:30 (Phenergan Inj) 25 mg Q6H PRN IM 09/16/16 12:00 09/16/16 18:05 (Dilaudid Pf Inj) 1 mg Q3H PRN IV 09/16/16 22:30 09/25/16 11:19 (Colace) 100 mg BID PO 09/17/16 21:00 (Senokot) 17.2 mg DAILY PO 09/18/16 09:00 (Miralax) 17 gm DAILY PO 09/17/16 14:00 09/17/16 14:50 ([place] 10-325 Mg) 1 tab Q4H PRN PO 09/19/16 10:45 09/25/16 10:45 (KCl 40 Meq/30 ml Liq) 40 meq DAILY PO 09/20/16 11:15 09/25/16 07:55 A/P Problem List: (1) Sickle cell crisis ICD Code: D57.00 Status: Acute (2) Non-ischemic cardiomyopathy ICD Code: I42.8 Status: Acute (3) Elevated bilirubin ICD Code: R17 Status: Acute (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 Sp transfusion of 2 units of PRBC's. Pain control provided with [place] Dilaudid for breakthrough Continue folic acid 5 mg every day. Patient's electroencephalographic technologist Dr. Oropeza was consulted. The patient has not taken deferasirox despite being prescribed numerous times. 09/25 Patient still shows signs of hemolysis on labs although with LDH trending down and still low haptoglobin and generalized pain which seems to be improving. continue IVF, supplemental oxygen, pain control (2) Non-ischemic cardiomyopathy Plan: Patient with EF 30-35%. Patient with NYHA class I heart failure systolic. Patient has been following with her insurance to find a housekeeping worker. Patient was seen by Dr Boggs on 2015 however as per those records she declined to follow up with him. Patient started on lisinopril 2.5 mg daily metoprolol succinate 12.5 mg daily. Blood pressure stable. (3) Elevated bilirubin Plan: Patient with elevated bilirubin on admission due to sickle cell crisis. Predominance of increased indirect bilirubin. Drooling continue to trend down. It came down from 1.4-1.1. Indirect bilirubin came down to 0.9 from 3.3. 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 Hematology has recommended iron chelation. The patient will be written a prescription for Exjade at discharge. (5) Nausea & vomiting Plan: Resolved. Patient denies nausea or vomiting. Continue antiemetics as needed. (6) Hypomagnesemia Plan: Continue to replete and monitor as needed. Likely due to poor oral intake. (7) Hypokalemia Plan: Continue to monitor and replace as needed. Levels are normal. (8) Acute left flank pain Plan: UA negative. no evidence of occult blood. Likely due to vasoocclusive crisis. Flank pain seems to be improving. DVT proph: SCD's, no chemoprophylaxis due to hemolytic anemia GI Prophylaxis. PPI Discharge Planning Possible discharge in a.m. pending urinalysis and labs. Omero Beavers MD Sep 25, 2016 10:10
[2016-09-25] MEDS: LISINOPRIL 5 MG TAB PO SCH (10:44)
[2016-09-25] MEDS: METOPROLOL SUCCINATE 25 MG EXTENDED RELEASE TAB PO SCH (10:44)
[2016-09-25 12:00] VITALS: BP 111/53; PULSE 73; RESP 16; TEMP 97.4; O2SAT 99
[2016-09-25 16:00] VITALS: BP 122/59; PULSE 74; RESP 18; TEMP 97.2; O2SAT 96
[2016-09-25 20:00] VITALS: BP 115/50; PULSE 81; RESP 16; TEMP 98.7; O2SAT 99
[2016-09-25] MEDS: ZOLPIDEM TARTRATE 5 MG TAB PO SCH (20:30)
[2016-09-26 00:33] VITALS: BP 118/63; PULSE 87; RESP 16; TEMP 98; O2SAT 97
[2016-09-26] MEDS: HYDROmorphone HCL PF 1 MG/ML VIAL IV PRN ×8 (02:30→23:23)
[2016-09-26] MEDS: ACETAMINOPHEN/HYDROcodone 325 MG/10 MG TAB PO PRN ×5 (03:00→20:37)
[2016-09-26 04:00] VITALS: BP 110/62; PULSE 64; RESP 16; TEMP 97.5; O2SAT 95
[2016-09-26] MEDS: diphenhydrAMINE HCL 25 MG CAP PO PRN ×4 (05:34→23:23)
[2016-09-26 06:15] LABS: AUTOMATED NEUTROPHIL # 8.5 TH/MM3 (1.8-7.7); BASOPHIL # 0.1 TH/MM3 (0-0.2); BASOPHIL % 0.6 % (0.0-2.0); EOSINOPHIL # 0.8 TH/MM3 (0-0.4); HEMATOCRIT 23.5 % (35.0-46.0); HEMO FLAGS DIFF FINAL; LYMPH % 27.5 % (9.0-44.0); LYMPHOCYTE # 4.2 TH/MM3 (1.0-4.8); MEAN CELL VOLUME 81.5 FL (80.0-100.0); MEAN CORPUSCULAR HEMOGLOBIN 28.3 PG (27.0-34.0); MEAN CORPUSCULAR HGB CONC 34.7 % (32.0-36.0); MONO % 10.9 % (0.0-8.0); PLATELET COUNT 410 TH/MM3 (150-450); RED BLOOD COUNT 2.88 MIL/MM3 (4.00-5.30); RETIC % 2.2 % (0.4-3.0); REVIEW FLAG FINAL; WHITE BLOOD COUNT 15.2 TH/MM3 (4.0-11.0)
[2016-09-26 06:30] LABS: ALT (GPT) 34 U/L (10-53); ANION GAP 9 MEQ/L (5-15); AST (GOT) 69 U/L (15-37); BICARBONATE 24.6 MEQ/L (21.0-32.0); BLOOD UREA NITROGEN 7 MG/DL (7-18); CHLORIDE 106 MEQ/L (98-107); GLOMERULAR FILTRATION RATE 132 ML/MIN (>89); LDH SERUM 361 U/L (84-246); POTASSIUM 3.4 MEQ/L (3.5-5.1); SODIUM (NA) 140 MEQ/L (136-145)
[2016-09-26 06:32] LABS: ALKALINE PHOSPHATASE 95 U/L (45-117); TOTAL BILIRUBIN ADULT 1.1 MG/DL (0.2-1.0)
[2016-09-26 08:00] VITALS: BP 119/63; PULSE 90; RESP 20; TEMP 98.8; O2SAT 100
[2016-09-26] MEDS: POTASSIUM CL 40 MEQ/30 ML LIQ UDC PO SCH (08:31)
[2016-09-26] MEDS: FOLIC ACID 1 MG TAB PO SCH (08:31)
[2016-09-26] MEDS: LISINOPRIL 5 MG TAB PO SCH (08:31)
[2016-09-26] MEDS: METOPROLOL SUCCINATE 25 MG EXTENDED RELEASE TAB PO SCH (08:31)
[2016-09-26] MEDS: SODIUM CHLORIDE 0.9% FLUSH 5 ML FLUSH FLUSH SCH ×2 (08:32→20:37)
[2016-09-26] MEDS: POLYETHYLENE GLYCOL 17 GM PKG PO SCH (09:00)
[2016-09-26] MEDS: SENNOSIDES 8.6 MG TAB PO SCH (09:00)
[2016-09-26] MEDS: DOCUSATE SODIUM 100 MG CAP PO SCH ×2 (09:00→20:37)
[2016-09-26 12:00] VITALS: BP 128/84; PULSE 69; RESP 16; TEMP 97; O2SAT 98
[2016-09-26] MEDS: SODIUM CHLOR 0.9% 1000 ML INJ 1,000 ML IV SCH (14:27)
[2016-09-26 16:00] VITALS: BP 121/82; PULSE 71; RESP 16; TEMP 97.2; O2SAT 99
[2016-09-26] MEDS ORDERED: POTASSIUM CHLORIDE 10 MEQ CONTROLLED RELEASE TAB PO ONE (17:00)
[2016-09-26] MEDS ORDERED: METO25TA6 PO (17:11)
[2016-09-26] MEDS ORDERED: LISI-519 PO (17:11)
[2016-09-26] MEDS ORDERED: FOLI1TAB4 PO (17:11)
[2016-09-26] MEDS ORDERED: HYDR-3516 PO (17:11)
--- NOTE | 2016-09-26 17:14 | HHI.PR ---
Subjective Remarks Pain is much better denies fevers/chills denies diarrhea deniea abdominal pain, nausea and vomiting Objective Vitals Vital Signs Date Time Temp Pulse Resp B/P Pulse Ox O2 Delivery O2 Flow Rate FiO2 09/26/16 16:00 97.2 71 16 121/82 99 09/26/16 12:00 97.0 69 16 128/84 98 09/26/16 08:00 98.8 90 20 119/63 100 09/26/16 06:40 20 09/26/16 04:10 20 09/26/16 04:00 97.5 64 16 110/62 95 09/26/16 00:33 98.0 87 16 118/63 97 09/25/16 20:00 98.7 81 16 115/50 99 I/O 09/25/16 09/25/16 09/25/16 09/26/16 09/26/16 09/26/16 07:00 15:00 23:00 07:00 15:00 23:00 Intake Total 750 ml 3404 ml 2383 ml 1044 ml 240 ml Output Total 1500 ml 1500 ml 2200 ml Balance -750 ml 1904 ml 183 ml 1044 ml 240 ml Intake Oral 750 ml 1200 ml 650 ml 480 ml 240 ml IV Total 2204 ml 1733 ml 564 ml Output Urine Total 1500 ml 1500 ml 2200 ml # Voids 3 2 # Bowel Movements 0 0 1 Result Diagram: 09/26/16 0540 09/26/16 0540 Imaging Last Impressions Chest X-Ray 09/13/16 0028 Signed Impressions: Service Date/Time: Tuesday, September 13, 2016 01:01 - CONCLUSION: 1. Cardiomegaly. No acute pulmonary disease. Obed Wagner MD Objective Remarks GENERAL: NAD, resting comfortably. SKIN: Warm and dry. HEAD: Normocephalic. EYES: No scleral icterus. No injection or drainage. NECK: Supple, trachea midline. No JVD or lymphadenopathy. CARDIOVASCULAR: Regular rate and rhythm without murmurs, gallops, or rubs. RESPIRATORY: Breath sounds equal bilaterally. No accessory muscle use. GASTROINTESTINAL: Abdomen soft, non-tender, nondistended. MUSCULOSKELETAL: No cyanosis, or edema. BACK: Nontender without obvious deformity. Left CVA tenderness PSYCH: Flattened affect. Procedures None. Medications and IVs Current Medications Medications (Trade) Dose Ordered Sig/Pavel Route Start Time Stop Time Status Last Admin (NS 1000 ml Inj) 1,000 ml @ 70 mls/hr [id number] IV 09/13/16 03:21 09/26/16 14:27 (NS Flush) 2 ml UNSCH PRN FLUSH 09/13/16 03:30 (NS Flush) 2 ml BID FLUSH 09/13/16 09:00 09/26/16 08:32 (Zofran Inj) 4 mg Q6H PRN IVP 09/13/16 03:30 09/21/16 21:28 (Dulcolax Supp) 10 mg DAILY PRN [place] 09/13/16 03:30 (Tylenol) 650 mg Q6H PRN PO 09/13/16 03:30 09/16/16 09:17 (Proair Hfa Inh) 2 puff Q6H PRN INH 09/13/16 03:30 (Folate) 5 mg DAILY PO 09/13/16 09:00 09/26/16 08:31 (Ambien) 5 mg HS PO 09/13/16 21:00 09/25/16 20:30 (Benadryl) 25 mg Q6H PRN PO 09/13/16 11:45 09/26/16 11:33 (Prinivil) 2.5 mg DAILY PO 09/14/16 09:00 09/26/16 08:31 (Toprol Xl) 12.5 mg DAILY PO 09/14/16 09:00 09/26/16 08:31 (Pill Splitter) 1 ea UNSCH PRN OTHER 09/14/16 00:30 (Phenergan Inj) 25 mg Q6H PRN IM 09/16/16 12:00 09/16/16 18:05 (Dilaudid Pf Inj) 1 mg Q3H PRN IV 09/16/16 22:30 09/26/16 14:23 (Colace) 100 mg BID PO 09/17/16 21:00 (Senokot) 17.2 mg DAILY PO 09/18/16 09:00 (Miralax) 17 gm DAILY PO 09/17/16 14:00 09/17/16 14:50 ([place] 10-325 Mg) 1 tab Q4H PRN PO 09/19/16 10:45 09/26/16 16:30 (KCl 40 Meq/30 ml Liq) 40 meq DAILY PO 09/20/16 11:15 09/26/16 08:31 A/P Problem List: (1) Sickle cell crisis ICD Code: D57.00 Status: Acute (2) Non-ischemic cardiomyopathy ICD Code: I42.8 Status: Acute (3) Elevated bilirubin ICD Code: R17 Status: Acute (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 Sp transfusion of 2 units of PRBC's. Pain control provided with [place] Dilaudid for breakthrough Continue folic acid 5 mg every day. Patient's candy separator enrobing Dr. Oropeza was consulted. The patient has not taken deferasirox despite being prescribed numerous times. 09/25 Patient still shows signs of hemolysis on labs although with LDH trending down and still low haptoglobin and generalized pain which seems to be improving. continue IVF, supplemental oxygen, pain control 09/26 LDH trending down, pain better, will discharge in am. (2) Non-ischemic cardiomyopathy Plan: Patient with EF 30-35%. Patient with NYHA class I heart failure systolic. Patient has been following with her insurance to find a tank car reconditioner. Patient was seen by Dr Boggs on 2015 however as per those records she declined to follow up with him. Patient started on lisinopril 2.5 mg daily metoprolol succinate 12.5 mg daily. Blood pressure stable. (3) Elevated bilirubin Plan: Patient with elevated bilirubin on admission due to sickle cell crisis. Predominance of increased indirect bilirubin. Drooling continue to trend down. It came down from 1.4-1.1. Indirect bilirubin came down to 0.9 from 3.3. 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 Hematology has recommended iron chelation. The patient will be written a prescription for Exjade at discharge. (5) Nausea & vomiting Plan: Resolved. Patient denies nausea or vomiting. Continue antiemetics as needed. (6) Hypomagnesemia Plan: Continue to replete and monitor as needed. Likely due to poor oral intake. (7) Hypokalemia Plan: Continue to monitor and replace as needed. Levels are normal. (8) Acute left flank pain Plan: UA negative. no evidence of occult blood. Likely due to vasoocclusive crisis. Resolved DVT proph: SCD's, no chemoprophylaxis due to hemolytic anemia GI Prophylaxis. PPI Discharge Planning Possible discharge in a.m. pending urinalysis and labs. Omero Beavers MD Sep 26, 2016 17:14
[2016-09-26 20:00] VITALS: BP 124/62; PULSE 76; RESP 18; TEMP 98; O2SAT 99
[2016-09-26] MEDS: ZOLPIDEM TARTRATE 5 MG TAB PO SCH (20:33)
[2016-09-27] VITALS: BP 121/69; PULSE 75; RESP 16; TEMP 99; O2SAT 99
[2016-09-27] MEDS: ACETAMINOPHEN/HYDROcodone 325 MG/10 MG TAB PO PRN ×3 (00:30→08:37)
[2016-09-27] MEDS: HYDROmorphone HCL PF 1 MG/ML VIAL IV PRN ×2 (02:24→05:43)
[2016-09-27 04:00] VITALS: BP 105/50; PULSE 86; RESP 18; TEMP 98.1; O2SAT 96
[2016-09-27] MEDS: SODIUM CHLOR 0.9% 1000 ML INJ 1,000 ML IV SCH (04:57)
[2016-09-27] MEDS: diphenhydrAMINE HCL 25 MG CAP PO PRN (05:41)
[2016-09-27 08:00] VITALS: BP 112/57; PULSE 83; RESP 16; TEMP 97.9; O2SAT 96
[2016-09-27] MEDS: FOLIC ACID 1 MG TAB PO SCH (08:37)
[2016-09-27] MEDS: LISINOPRIL 5 MG TAB PO SCH (08:38)
[2016-09-27] MEDS: METOPROLOL SUCCINATE 25 MG EXTENDED RELEASE TAB PO SCH (08:38)
[2016-09-27] MEDS: POTASSIUM CL 40 MEQ/30 ML LIQ UDC PO SCH (09:00)
[2016-09-27] MEDS: SODIUM CHLORIDE 0.9% FLUSH 5 ML FLUSH FLUSH SCH (09:00)
[2016-09-27] MEDS: SENNOSIDES 8.6 MG TAB PO SCH (09:00)
[2016-09-27] MEDS: POLYETHYLENE GLYCOL 17 GM PKG PO SCH (09:00)
[2016-09-27] MEDS: DOCUSATE SODIUM 100 MG CAP PO SCH (09:00)
--- NOTE | 2016-09-27 09:31 | HHI.DS ---
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 Brief History - From Admission Ms. Frazier is a pleasant 26 year old female with a history of sickle cell disease who presented to the ED on 09/13/2016 due to pain all over her body - specifically in her arms, legs, back and chest. She reported some chills but no fever. She used to take hydroxyurea but did not tolerate well. Currently, she only takes folic acid for sickle cell disease. Denies any injuries. Denies any changes in bowel or bladder habits. No fever, chills currently. Cardiac work up: Echocardiogram 02/12/2016 -- LVEF 30-35%. Diffuse hypokinesis. Pulmonary artery was normal sized. CBC/BMP: 09/26/16 0540 09/26/16 0540 Significant Findings Laboratory Tests Test 09/25/16 09/26/16 04:40 05:40 White Blood Count 16.6 TH/MM3 15.2 TH/MM3 (4.0-11.0) (4.0-11.0) Red Blood Count 3.04 MIL/MM3 2.88 MIL/MM3 (4.00-5.30) (4.00-5.30) Hemoglobin 8.5 GM/DL 8.1 GM/DL (11.6-15.3) (11.6-15.3) Hematocrit 25.2 % 23.5 % (35.0-46.0) (35.0-46.0) Monocytes (%) (Auto) 10.5 % 10.9 % (0.0-8.0) (0.0-8.0) Eosinophils (%) (Auto) 4.6 % (0.0-4.0) 5.0 % (0.0-4.0) Basophils (%) (Auto) 3.0 % (0.0-2.0) Neutrophils # (Auto) 9.3 TH/MM3 8.5 TH/MM3 (1.8-7.7) (1.8-7.7) Monocytes # (Auto) 1.7 TH/MM3 1.7 TH/MM3 (0-0.9) (0-0.9) Eosinophils # (Auto) 0.8 TH/MM3 0.8 TH/MM3 (0-0.4) (0-0.4) Basophils # (Auto) 0.5 TH/MM3 (0-0.2) Target Cells 1+ (NORMAL) Keratocytes OCC (NORMAL) Haptoglobin LESS THAN 10 LESS THAN 8 MG/DL (30-200) MG/DL (30-200) Total Bilirubin 1.1 MG/DL 1.1 MG/DL (0.2-1.0) (0.2-1.0) Indirect Bilirubin 0.9 MG/DL (0.0-0.8) Lactate Dehydrogenase 366 U/L 361 U/L (84-246) (84-246) Potassium Level 3.4 MEQ/L (3.5-5.1) Random Glucose 119 MG/DL (74-106) Calcium Level 8.3 MG/DL (8.5-10.1) Aspartate Amino Transf 69 U/L (15-37) (AST/SGOT) Imaging Last Impressions Chest X-Ray 09/13/16 0028 Signed Impressions: Service Date/Time: Tuesday, September 13, 2016 01:01 - CONCLUSION: 1. Cardiomegaly. No acute pulmonary disease. Obed Wagner MD PE at Discharge GENERAL: NAD, resting comfortably. SKIN: Warm and dry. HEAD: Normocephalic. EYES: No scleral icterus. No injection or drainage. NECK: Supple, trachea midline. No JVD or lymphadenopathy. CARDIOVASCULAR: Regular rate and rhythm without murmurs, gallops, or rubs. RESPIRATORY: Breath sounds equal bilaterally. No accessory muscle use. GASTROINTESTINAL: Abdomen soft, non-tender, nondistended. MUSCULOSKELETAL: No cyanosis, or edema. BACK: Nontender without obvious deformity. Left CVA tenderness PSYCH: Flattened affect. Pt update on day of discharge Generalized pain is resolved. The patient denies chest pain or shortness of breath. Vital signs stable. The patient will be discharged home on oral Lortabs. She was advised to follow-up with hematology in a week. She should be prescribed Exjade upon that visit. She was explained on the importance to get this medication and to be compliant with her medications. Hospital Course 1) Sickle cell crisis The patient presented with generalized pain. Sp transfusion of 2 units of PRBC' s. Pain control provided with [place] for breakthrough Continue folic acid 5 mg every day. Patient's dry cleaning manager Dr. Oropeza was consulted. The patient has not taken deferasirox despite being prescribed numerous times. 09/25 Patient still shows signs of hemolysis on labs although with LDH trending down and still low haptoglobin and generalized pain which seems to be improving. continue IVF, supplemental oxygen, pain control 09/26 LDH trending down, pain better, will discharge in am. (2) Non-ischemic cardiomyopathy Patient with EF 30-35%. Patient with NYHA class I heart failuresystolic. Patient has been following with her insurance to find a chief mechanical engineer. Patient was seen by Dr Boggs on 2015 however as per those records she declined to follow up with him. Patient started on lisinopril 2.5 mg daily metoprolol succinate 12.5 mg daily. Blood pressure stable. (3) Elevated bilirubin Patient with elevated bilirubin on admission due to sickle cell crisis. Predominance of increased indirect bilirubin. Bilirubin continue to trend down. It came down from 1.4-1.1. Indirect bilirubin came down to 0.9 from 3.3. 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 Hematology has recommended iron chelation. The patient will be written a prescription for Exjade at discharge. (5) Nausea & vomiting Resolved. Patient denies nausea or vomiting. Continue antiemetics as needed. (6) Hypomagnesemia Plan: Continue to replete and monitor as needed. Likely due to poor oral intake. (7) Hypokalemia Continue to monitor and replace as needed. Levels are normal. (8) Acute left flank pain UA negative. no evidence of occult blood. Likely due to vasoocclusive crisis. Resolved DVT proph: SCD's, no chemoprophylaxis due to hemolytic anemia GI Prophylaxis. PPI Pt Condition on Discharge: Stable Discharge Disposition: Discharge Home Discharge Time: <= 30 minutes Discharge Instructions DIET: Follow Instructions for: As Tolerated, No Restrictions Activities you can perform: Regular-No Restrictions Follow up Referrals: Oncology - 1 Week with Joselito Oropeza MD PCP Follow-up - 1 Week New Medications: Folic Acid (Folate) 1 Mg Tab 5 MG PO DAILY anemia #30 TAB Lisinopril (Lisinopril) 5 Mg Tab 2.5 MG PO DAILY cardiomyopathy #30 TAB Metoprolol Succinate ER 24 HR (Metoprolol Succinate ER 24 HR) 25 Mg Tab 12.5 MG PO DAILY cardiomyopathy #30 TAB Continued Medications: Albuterol 6.7 GM Inh (Proventil Hfa 6.7 GM Inh) 90 Mcg/Act Aer 2 PUFF INH Q6H PRN SHORTNESS OF BREATH #1 Ref 0 INHALER Hydrocodone-Acetaminophen (Hydrocodone-Acetaminophen) 5-325 mg Tab 1 TAB PO Q4H PRN PAIN #30 Ref 0 TAB (This prescription has been renewed) Zolpidem (Ambien) 5 Mg Tab 5 MG PO HS INSOMNIA Ref 0 TAB Discontinued Medications: Folic Acid (Folic Acid) 5 Mg Cap 5 MG PO DAILY Nutritional Supplement Ref 0 CAP Omero Beavers MD Sep 27, 2016 09:30
[2016-09-27 12:00] VITALS: BP 110/62; PULSE 81; RESP 18; TEMP 97.4; O2SAT 92
== END 2016-09-27 13:05 | disposition home or self-care (01) | DRG 812 ==
LOC: NEPE 21:27 → NEDA 09-13 03:27 → NEPHCDU 09-13 05:12 → HOCA 09-15 18:27
PROVIDERS: ADMIT Hospitalist; ATTEND Hospitalist
DX: D57.00 Hb-SS disease with crisis, unspecified (principal); I42.9 Cardiomyopathy, unspecified; I50.20 Unspecified systolic (congestive) heart failure; E83.119 Hemochromatosis, unspecified; R11.2 Nausea with vomiting, unspecified; E83.42 Hypomagnesemia; E87.6 Hypokalemia; R10.9 Unspecified abdominal pain; J45.909 Unspecified asthma, uncomplicated; K21.9 Gastro-esophageal reflux disease without esophagitis; E83.19 Other disorders of iron metabolism
CPT/HCPCS: 36430; 71020; 80048; 80053; 80076; 81001; 82247; 82248; 82607; 82728; 83010; 83615; 83735; 84100; 84703; 85007; 85025; 85027; 85044; 86850; 86900; 86901; 86920; 86922; 96361; 96374; 96375; 96376; J1170; J2405; J2550; J3475; J3480; J7030; J7050; P9016

== ENCOUNTER 2016-10-26 12:30 | Inpatient (IN) | payer MEDICAID ==
[2016-10-26] VITALS (10 sets, daily range): BP systolic 104–130; BP diastolic 56–74; PULSE 68–102; RESP 14–22; TEMP 97–98.5; O2SAT 95–100
[~2016-10-26] VITALS: Ht 165.1 cm; Wt 76.2 kg
[~2016-10-26 12:30] MED LIST changes: +FOLI1TAB4 PO; -FOLI5CAP PO; +LISI-519 PO; +METO25TA6 PO
[2016-10-26] MEDS ORDERED: ONDANSETRON HCL 4 MG/2 ML VIAL IV PUSH ONE (13:00)
[2016-10-26] MEDS ORDERED: KETOROLAC TROMETHAMINE 30 MG/ML (IVP) VIAL IV PUSH ONE (13:00)
[2016-10-26] MEDS ORDERED: diphenhydrAMINE HCL 50 MG/ML VIAL IV PUSH ONE (13:00)
[2016-10-26] MEDS ORDERED: HYDROmorphone HCL PF 1 MG/ML VIAL IVS ONE (13:00)
[2016-10-26] MEDS ORDERED: HYDR-3535 PO (13:15)
--- NOTE | 2016-10-26 13:21 | RADRPT ---
EXAM DATE/TIME: 10/26/2016 13:06 [place] COMPARISON: CHEST PA & LAT, September 13, 2016, 1:01. INDICATIONS : Short of Breath, Chest Discomfort. MEDICAL HISTORY : Congestive heart failure. Sickle Cell disease. asthma SURGICAL HISTORY : section. Tubal ligation. Cholecystectomy. Port placement ENCOUNTER: Initial ACUITY: 2 days PAIN SCORE: 3/10 LOCATION: Bilateral chest FINDINGS: A single view of the chest demonstrates the lungs to be symmetrically aerated without evidence of mas s, infiltrate or effusion. The cardiomediastinal contours are unremarkable. Osseous structures are intact. Right internal jugular [id number] catheter are again seen, tip in the right atrium. CONCLUSION: No evidence of acute cardiopulmonary disease. Ernst Garza MD on October 26, 2016 at 13:18 Board Certified Radiologist. This report was verified electronically.
[2016-10-26] MEDS: SODIUM CHLORIDE 0.9% FLUSH 5 ML FLUSH IVF PRN (13:36)
[2016-10-26 14:00] LABS: AUTOMATED NEUTROPHIL # 9.4 TH/MM3 (1.8-7.7); BASOPHIL # 0.1 TH/MM3 (0-0.2); EOSINOPHIL # 0.6 TH/MM3 (0-0.4); EOSINOPHIL % 4.4 % (0.0-4.0); HEMATOCRIT 21.5 % (35.0-46.0); LYMPH % 15.1 % (9.0-44.0); MEAN CELL VOLUME 82.1 FL (80.0-100.0); MEAN CORPUSCULAR HEMOGLOBIN 28.3 PG (27.0-34.0); MEAN CORPUSCULAR HGB CONC 34.5 % (32.0-36.0); MONO % 10.5 % (0.0-8.0); PLATELET COUNT 382 TH/MM3 (150-450); RED BLOOD COUNT 2.62 MIL/MM3 (4.00-5.30); RED CELL DISTRIBUTION WIDTH 17.6 % (11.6-17.2); RETIC % 7.1 % (0.4-3.0); WHITE BLOOD COUNT 13.5 TH/MM3 (4.0-11.0)
[2016-10-26 14:02] LABS: HEMO FLAGS AUTO DIFF; REVIEW FLAG FINAL
[2016-10-26 14:15] LABS: BICARBONATE 22.3 MEQ/L (21.0-32.0); POTASSIUM 3.3 MEQ/L (3.5-5.1)
[2016-10-26] MEDS ORDERED: SODIUM CHLOR 0.9% 1000 ML INJ 1,000 ML IV ONE (14:15)
[2016-10-26 14:40] LABS: SCAN/DIFF AUTO DIFF CONFIRMED; SICKLE CELLS 1+ (NORMAL); TARGET CELLS 1+ (NORMAL)
[2016-10-26] MEDS ORDERED: HYDROmorphone HCL PF 1 MG/ML VIAL IV PUSH ONE (15:45)
[2016-10-26] MEDS ORDERED: diphenhydrAMINE HCL 25 MG CAP PO ONE (15:45)
--- NOTE | 2016-10-26 15:48 | PD ---
HPI Chief Complaint: Sickle Cell Time Seen by Provider: 12:38 Travel History International Travel<30 days: No Contact w/Intl Traveler<30days: No Traveled to known affect area: No History of Present Illness HPI Patient 26-year-old female history sickle cell anemia presents emergency primary with pain all over. Patient states this is her normal sickle cell crisis. Patient recently has been admitted multiple times for sickle cell pain crisis last month she was admitted for 7 days. Patient states been taking Lortabs at home without any relief. Denies any fever abdominal pain nausea vomiting. Denies possibility for she's had a tubal ligation in the past. PFSH Past Medical History Hx Anticoagulant Therapy: No Anemia: Yes Arthritis: No Asthma: Yes Autoimmune Disease: No Blood Disorders: Yes Anxiety: Yes Depression: No Heart Rhythm Problems: No Cancer: No Cardiovascular Problems: Yes (CHF) High Cholesterol: No Chemotherapy: No Chest Pain: No Congestive Heart Failure: Yes COPD: No Cerebrovascular Accident: No Diabetes: No Diminished Hearing: No Endocrine: No Gastrointestinal Disorders: Yes GERD: No Genitourinary: No Headaches: Yes Hiatal Hernia: No Hypertension: No Immune Disorder: No Implanted Vascular Access Dvce: Yes Kidney Stones: No Musculoskeletal: No Neurologic: No Psychiatric: Yes Reproductive: No Respiratory: Yes (ASTHMA) Immunizations Current: Yes Migraines: Yes Pneumonia: Yes Radiation Therapy: No Renal Failure: No Seizures: No Sickle Cell Disease: Yes Sleep Apnea: No Thyroid Disease: No Ulcer: No PNEUMOCCOCAL Vaccine (Year): 1 ?: Not LMP: 10/12/16 : 1 Para: 1 Miscarriage: 0 : 0 Tubal Ligation: Yes Past Surgical History Abdominal Surgery: Yes AICD: No Arteriovenous Shunt: No Body Medical Devices: INFUSAPORT (3RD) Cardiac Surgery: No Section: Yes (X 1) Cholecystectomy: Yes Ear Surgery: No Endocrine Surgery: No Eye Surgery: No Genitourinary Surgery: No Gynecologic Surgery: Yes Hysterectomy: No Insulin Pump: No Joint Replacement: No Neurologic Surgery: No Oral Surgery: No Pacemaker: No Thoracic Surgery: Yes (PORT REMOVED X 2; PORT RIGHT subclavian) Other Surgery: Yes (PORTX3 PLACED AND REMOVED, gallstones) Social History Alcohol Use: No Tobacco Use: No Substance Use: No Allergies-Medications (Allergen,Severity, Reaction): Coded Allergies: Percocet (Verified Adverse Reaction, Severe, Nausea/Vomiting, 10/26/16) AND ITCHING *MDRO Multi-Drug Resistant Organism (Verified Adverse Reaction, Unknown, Cleared 02/08/15, 10/26/16) MRSA (Chest Wound) - 02/2012 MRSA PCR Screen negative 02/06/15 and 02/08/15. Cleared per Infection Control Reported Meds & Prescriptions Reported Meds & Active Scripts Active Metoprolol Succinate ER 24 HR (Metoprolol Succinate) 25 Mg Tab 12.5 Mg PO DAILY Lisinopril 5 Mg Tab 2.5 Mg PO DAILY Folate (Folic Acid) 1 Mg Tab 5 Mg PO DAILY Reported Lortab (Hydrocodone-Acetaminophen) 10-325 Mg Tab 1 Tab PO Q6H PRN Ambien (Zolpidem Tartrate) 5 Mg Tab 5 Mg PO HS Proventil Hfa 6.7 GM Inh (Albuterol Sulfate) 90 Mcg/Act Aer 2 Puff INH Q6H PRN Review of Systems Except as stated in HPI: all other systems reviewed are Neg Physical Exam Narrative GENERAL: Well-developed well-nourished, no apparent distress, sitting in a stretcher very comfortable in appearance. SKIN: Warm and dry. HEAD: Atraumatic. Normocephalic. EYES: Pupils equal and round. Slightly icteric sclera. No injection or drainage. ENT: No nasal bleeding or discharge. Mucous membranes pink and moist. NECK: Trachea midline. No JVD. CARDIOVASCULAR: Regular rate and rhythm. No murmur appreciated. RESPIRATORY: No accessory muscle use. Clear to auscultation. Breath sounds equal bilaterally. GASTROINTESTINAL: Abdomen soft, non-tender, nondistended. Hepatic and splenic margins not palpable. MUSCULOSKELETAL: No obvious deformities. No clubbing. No cyanosis. No edema. NEUROLOGICAL: Awake and alert. No obvious cranial nerve deficits. Motor grossly within normal limits. Normal speech. PSYCHIATRIC: Appropriate mood and affect; insight and judgment normal. Data Data Last Documented VS Vital Signs Date Time Temp Pulse Resp B/P Pulse Ox O2 Delivery O2 Flow Rate FiO2 10/26/16 16:00 72 15 109/67 100 Nasal Cannula 2.0 10/26/16 12:32 98.5 Orders Basic Metabolic Panel (Bmp) (10/26/16 12:46) C-Reactive Protein (Crp) (10/26/16 12:46) Complete Blood Count With Diff (10/26/16 12:46) Retic Count (10/26/16 12:46) Urinalysis - C+S If Indicated (10/26/16 12:46) Chest, Single Ap (10/26/16 12:46) Ecg Monitoring (10/26/16 12:46) Iv Access Insert/Monitor (10/26/16 12:46) Oximetry (10/26/16 12:46) Sodium Chloride 0.9% Flush (Ns Flush) (10/26/16 13:00) Hydromorphone Pf Inj (Dilaudid Pf Inj) (10/26/16 13:00) Ketorolac Inj (Toradol Inj) (10/26/16 13:00) Ondansetron Inj (Zofran Inj) (10/26/16 13:00) Diphenhydramine Inj (Benadryl Inj) (10/26/16 13:00) Ed Urine Pregnancytest Poc (10/26/16 12:48) Sodium Chlor 0.9% 1000 Ml Inj (Ns 1000 M (10/26/16 14:15) Hydromorphone Pf Inj (Dilaudid Pf Inj) (10/26/16 15:45) Diphenhydramine (Benadryl) (10/26/16 15:45) Vital Signs (Adult) KARI.Q4H (10/26/16 16:09) Resp Oxygen Pelon C Titrat 1-4 L (10/26/16 ) Sodium Chlor 0.9% 1000 Ml Inj (Ns 1000 M (10/26/16 17:00) Admit Order (Ed Use Only) (10/26/16 ) Labs Laboratory Tests Test 10/26/16 13:30 White Blood Count 13.5 TH/MM3 Red Blood Count 2.62 MIL/MM3 Hemoglobin 7.4 GM/DL Hematocrit 21.5 % Mean Corpuscular Volume 82.1 FL Mean Corpuscular Hemoglobin 28.3 PG Mean Corpuscular Hemoglobin 34.5 % Concent Red Cell Distribution Width 17.6 % Platelet Count 382 TH/MM3 Mean Platelet Volume 8.6 FL Neutrophils (%) (Auto) 69.0 % Lymphocytes (%) (Auto) 15.1 % Monocytes (%) (Auto) 10.5 % Eosinophils (%) (Auto) 4.4 % Basophils (%) (Auto) 1.0 % Neutrophils # (Auto) 9.4 TH/MM3 Lymphocytes # (Auto) 2.0 TH/MM3 Monocytes # (Auto) 1.4 TH/MM3 Eosinophils # (Auto) 0.6 TH/MM3 Basophils # (Auto) 0.1 TH/MM3 CBC Comment AUTO DIFF Differential Comment AUTO DIFF CONFIRMED Sickle Cells 1+ Target Cells 1+ Reticulocyte Count 7.1 % Absolute Reticulocyte Count 184.7 MIL/L Sodium Level 141 MEQ/L Potassium Level 3.3 MEQ/L Chloride Level 111 MEQ/L Carbon Dioxide Level 22.3 MEQ/L Anion Gap 8 MEQ/L Blood Urea Nitrogen 6 MG/DL Creatinine 0.59 MG/DL Estimat Glomerular Filtration 148 ML/MIN Rate Random Glucose 90 MG/DL Calcium Level 8.8 MG/DL C-Reactive Protein 0.66 MG/DL MDM Medical Decision Making Medical Screen Exam Complete: Yes Emergency Medical Condition: Yes Differential Diagnosis Occlusive sickle cell pain crisis, aplastic crisis unlikely, splenic sequestration crisis unlikely, hemolytic crisis unlikely, ACS unlikely, acute chest unlikely, acute cholecystitis unlikely. Narrative Course Patient was roomed emergency Department, labs show hemoglobin of 7.1 which appears to be her baseline. She is an appropriate reticulocyte count for this hemoglobin level. She appears well and in no apparent distress. Benadryl Toradol and Dilaudid were given IV as well as normal saline. Patient's pain remains 9 out of 10 despite these interventions. She was given an additional dose of Dilaudid and discussed with the patient she should consider admission for further pain control and she is agreeable. Patient was discussed with Dr. Martínez who agrees for observation status. Diagnosis Primary Impression: Sickle cell anemia with crisis Admitting Information Admitting Physician Requests: Observation Condition: Stable Aayush Parham MD Oct 26, 2016 15:48
[2016-10-26] MEDS ORDERED: ALBUTEROL SULFATE 90 MCG/ACT HFA 8 GM INHALER INH PRN (16:30)
[2016-10-26] MEDS ORDERED: RESP: ALBUTEROL 2.5 MG/IPRATROPIUM 0.5 MG NEB (PRN) NEB (16:45)
[2016-10-26] MEDS ORDERED: ACETAMINOPHEN/HYDROcodone 325 MG/10 MG TAB PO PRN (16:45)
--- NOTE | 2016-10-26 16:49 | HHI.HP ---
HPI Service [facility] Primary Care Physician No Primary Care Physician Admission Diagnosis Sickle cell pain crisis. Diagnoses: (1) Sickle cell disease with crisis Chief Complaint: pain, "all over." Travel History International Travel<30 Days: No Contact w/Intl Traveler <30 Da: No Traveled to Known Affected Are: No History of Present Illness This 26-year-old female patient with past medical history which includes asthma and sickle cell disease and cardiomyopathy. Patient reports for the past few days she is having generalized pain- which is consistent with her typical sickle cell crisis. Patient states she's been trying to manage at home with her Lortab 10 every 6 hours. Patient reports the pain is no longer relieved with Lortab at home therefore she proceeded to emergency department for further evaluation and treatment. Patient reports she vomited yesterday and the day before with this secondary to the pain. Patient reports she is slightly short of breath and a little dizzy with standing. Patient denies signs no blood in stool or urine. Patient also reports headaches she reports consistent for seasonal allergies. Review of Systems Except as stated in HPI: all other systems reviewed are Neg Past Family Social History Past Medical History cardiomyopathy, asthma and sickle cell disease Past Surgical History Cholecystectomy, , tubal ligation, [id number] 3 Reported Medications Metoprolol Succinate ER 24 HR (Metoprolol Succinate) 25 Mg Tab 12.5 Mg PO DAILY Lisinopril 5 Mg Tab 2.5 Mg PO DAILY Folate (Folic Acid) 1 Mg Tab 5 Mg PO DAILY Lortab (Hydrocodone-Acetaminophen) 10-325 Mg Tab 1 Tab PO Q6H PRN Ambien (Zolpidem Tartrate) 5 Mg Tab 5 Mg PO HS Proventil Hfa 6.7 GM Inh (Albuterol Sulfate) 90 Mcg/Act Aer 2 Puff INH Q6H PRN Allergies: Coded Allergies: Percocet (Verified Adverse Reaction, Severe, Nausea/Vomiting, 10/26/16) AND ITCHING *MDRO Multi-Drug Resistant Organism (Verified Adverse Reaction, Unknown, Cleared 02/08/15, 10/26/16) MRSA (Chest Wound) - 02/2012 MRSA PCR Screen negative 02/06/15 and 02/08/15. Cleared per Infection Control Active Ordered Medications Current Medications Medications (Trade) Dose Ordered Sig/Pavel Route Start Time Stop Time Status Last Admin IV Flush 2 ml 2 ml UNSCH PRN IVF 10/26/16 13:00 10/26/16 13:36 (NS 1000 ml Inj) 1,000 ml @ 125 mls/hr Q8H IV 10/26/16 17:00 (Proair Hfa Inh) 2 puff Q6H PRN INH 10/26/16 16:30 (Folate) 5 mg DAILY PO 10/27/16 09:00 (Prinivil) 2.5 mg DAILY PO 10/27/16 09:00 (Toprol Xl) 12.5 mg DAILY PO 10/27/16 09:00 (Hydrea) 500 mg DAILY PO 10/27/16 09:00 (KCl) 20 meq ONCE ONCE PO 10/26/16 17:00 10/26/16 17:01 Family History Older sister has sickle cell disease Diabetes runs in the family Social History Denies tobacco use Physical Exam Vital Signs Vital Signs Date Time Temp Pulse Resp B/P Pulse Ox O2 Delivery O2 Flow Rate FiO2 10/26/16 16:23 100 Nasal Cannula 2.00 10/26/16 16:00 72 15 109/67 100 Nasal Cannula 2.0 10/26/16 15:00 72 18 104/56 100 Nasal Cannula 2.0 10/26/16 14:00 68 14 115/60 100 Nasal Cannula 2.0 10/26/16 13:48 Nasal Cannula 2.0 10/26/16 13:44 75 22 120/62 100 Room Air 10/26/16 13:11 99 Room Air 10/26/16 12:32 98.5 102 16 130/74 100 Room Air Physical Exam GENERAL: This is a well-nourished, well-developed patient, in no apparent distress. SKIN: No rashes, ecchymoses or lesions. Cool and dry. HEAD: Atraumatic. Normocephalic. No temporal or scalp tenderness. EYES: Extraocular motions intact. No scleral icterus. No injection or drainage. CARDIOVASCULAR: Regular rate and rhythm without murmurs, gallops, or rubs. RESPIRATORY: Clear to auscultation. Breath sounds equal bilaterally. No wheezes , rales, or rhonchi. GASTROINTESTINAL: Abdomen soft, non-tender, nondistended. MUSCULOSKELETAL: Extremities without clubbing, cyanosis, or edema. No joint tenderness, effusion, or edema noted. No calf tenderness. Negative Homans sign bilaterally. NEUROLOGICAL: Awake and alert.No focal deficits. Motor and sensory grossly within normal limits. Five out of 5 muscle strength in all muscle groups. Normal speech. Laboratory Laboratory Tests Test 10/26/16 13:30 White Blood Count 13.5 Red Blood Count 2.62 Hemoglobin 7.4 Hematocrit 21.5 Mean Corpuscular Volume 82.1 Mean Corpuscular Hemoglobin 28.3 Mean Corpuscular Hemoglobin 34.5 Concent Red Cell Distribution Width 17.6 Platelet Count 382 Mean Platelet Volume 8.6 Neutrophils (%) (Auto) 69.0 Lymphocytes (%) (Auto) 15.1 Monocytes (%) (Auto) 10.5 Eosinophils (%) (Auto) 4.4 Basophils (%) (Auto) 1.0 Neutrophils # (Auto) 9.4 Lymphocytes # (Auto) 2.0 Monocytes # (Auto) 1.4 Eosinophils # (Auto) 0.6 Basophils # (Auto) 0.1 CBC Comment AUTO DIFF Differential Comment AUTO DIFF CONFIRMED Sickle Cells 1+ Target Cells 1+ Reticulocyte Count 7.1 Absolute Reticulocyte Count 184.7 Sodium Level 141 Potassium Level 3.3 Chloride Level 111 Carbon Dioxide Level 22.3 Anion Gap 8 Blood Urea Nitrogen 6 Creatinine 0.59 Estimat Glomerular Filtration 148 Rate Random Glucose 90 Calcium Level 8.8 C-Reactive Protein 0.66 Result Diagram: 10/26/16 1330 10/26/16 1330 Assessment and Plan Assessment and Plan This 26-year-old female patient with past medical history which includes asthma and sickle cell disease and cardiomyopathy. Patient reports for the past few days she is having generalized pain- which is consistent with her typical sickle cell crisis. Patient states she's been trying to manage at home with her Lortab 10 every 6 hours. Patient reports the pain is no longer relieved with Lortab at home therefore she proceeded to emergency department for further evaluation and treatment. Sickle cell disease with crisis normal saline with 80 cc/h Lortab 10 mg by mouth for pain with Dilaudid 1 mg IV every 4 hours for breakthrough pain continue folic acid Continue hydroxyurea 500 mg daily CBC in a.m. History of cardiomyopathy. Continue metoprolol 12.5 mg daily and Lisinopril 2.5 mg daily Hypokalemia from 3.3 Replacement 20 meq potassium chloride PO A history of an acute exacerbation continue Proair inhaler if needed and do a nebs if needed DVT prophylaxis with Lovenox Discussed with ER provider, nurse and patient Written by Selena Abreu, acting as scribe for Dr. Orozco on 10/26/16 at 16:46. patient was seen and examined today. 26 y/o female presented with sickle cell painful crisis. will start on IV fluid and pain control.resume folic acid and Hydroxyurea. repeat CBC in am. rest of assessment and plan as noted above. Physician Certification 2 Midnight Certification Type: Admission for Inpatient Services Order for Inpatient Services The services are ordered in accordance with Medicare regulations or non- Medicare payer requirements, as applicable. In the case of services not specified as inpatient-only, they are appropriately provided as inpatient services in accordance with the 2-midnight benchmark. Estimated LOS (days): 4 days is the estimated time the patient will need to remain in the hospital, assuming treatment plan goals are met and no additional complications. Post-Hospital Plan: Home Selena Abreu Oct 26, 2016 16:48 Bernardo Orozco MD Oct 26, 2016 16:57 Selena Abreu Oct 26, 2016 16:48
[2016-10-26] MEDS ORDERED: POTASSIUM CHLORIDE 20 MEQ CONTROLLED RELEASE TAB PO ONE (17:00)
[2016-10-26] MEDS: SODIUM CHLOR 0.9% 1000 ML INJ 1,000 ML IV SCH (17:01)
[2016-10-26] MEDS: ENOXAPARIN SODIUM 40 MG/0.4 ML SYRINGE SQ SCH (17:01)
[2016-10-26] MEDS ORDERED: POTASSIUM CL 40 MEQ/30 ML LIQ UDC PO ONE (17:30)
[2016-10-26] MEDS: ACETAMINOPHEN/HYDROcodone 325 MG/10 MG TAB PO PRN (21:01)
[2016-10-26] MEDS: HYDROmorphone HCL PF 1 MG/ML VIAL IV PUSH PRN (23:39)
[2016-10-27] VITALS: BP 109/58; PULSE 82; RESP 20; TEMP 97.4; O2SAT 97
[2016-10-27] MEDS: diphenhydrAMINE HCL 25 MG CAP PO PRN ×4 (00:32→19:47)
[2016-10-27] MEDS: ZOLPIDEM TARTRATE 5 MG TAB PO PRN (00:32)
[2016-10-27] MEDS: ACETAMINOPHEN/HYDROcodone 325 MG/10 MG TAB PO PRN ×5 (02:54→22:12)
[2016-10-27] MEDS: HYDROmorphone HCL PF 1 MG/ML VIAL IV PUSH PRN ×4 (04:30→19:47)
[2016-10-27] MEDS: SODIUM CHLORIDE 0.9% FLUSH 5 ML FLUSH IVF PRN ×3 (04:34→15:15)
[2016-10-27] MEDS: SODIUM CHLOR 0.9% 1000 ML INJ 1,000 ML IV SCH ×2 (05:06→18:10)
[2016-10-27 07:55] VITALS: O2SAT 97
[2016-10-27 08:00] VITALS: BP 122/59; PULSE 92; RESP 18; TEMP 99.5; O2SAT 95
--- NOTE | 2016-10-27 08:55 | HHI.PR ---
Subjective Remarks in no acute distress. says that her pain is slightly better today. no fever. no other complaints. Objective Vitals Vital Signs Date Time Temp Pulse Resp B/P Pulse Ox O2 Delivery O2 Flow Rate FiO2 10/27/16 07:55 97 21 10/27/16 00:00 97.4 82 20 109/58 97 10/26/16 22:00 Room Air 10/26/16 20:00 97.0 81 20 122/72 95 10/26/16 18:00 74 15 105/59 100 Nasal Cannula 2.0 10/26/16 17:11 20 10/26/16 17:00 78 22 118/56 100 Nasal Cannula 2.0 10/26/16 16:23 100 Nasal Cannula 2.00 10/26/16 16:00 72 15 109/67 100 Nasal Cannula 2.0 10/26/16 15:00 72 18 104/56 100 Nasal Cannula 2.0 10/26/16 15:00 20 10/26/16 14:15 18 10/26/16 14:00 68 14 115/60 100 Nasal Cannula 2.0 10/26/16 13:48 Nasal Cannula 2.0 10/26/16 13:44 75 22 120/62 100 Room Air 10/26/16 13:11 99 Room Air 10/26/16 12:32 98.5 102 16 130/74 100 Room Air I/O 10/26/16 10/26/16 10/26/16 10/27/16 10/27/16 10/27/16 07:00 15:00 23:00 07:00 15:00 23:00 Intake Total 360 ml 900 ml 240 ml Balance 360 ml 900 ml 240 ml Intake Oral 360 ml 240 ml IV Total 900 ml # Voids 1 4 # Bowel Movements 0 0 Result Diagram: 10/26/16 1330 10/26/16 1330 Imaging Last Impressions Chest X-Ray 10/26/16 1246 Signed Impressions: Service Date/Time: Wednesday, October 26, 2016 13:06 - CONCLUSION: No evidence of acute cardiopulmonary disease. Ernst Garza MD Objective Remarks GENERAL: This is a well-nourished, well-developed patient, in no apparent distress. CARDIOVASCULAR: Regular rate and regular rhythm without murmurs, gallops, or rubs. RESPIRATORY: Clear to auscultation. Breath sounds equal bilaterally. No wheezes , rales, or rhonchi. GASTROINTESTINAL: Abdomen soft, non-tender, nondistended. Normal, active bowel sounds MUSCULOSKELETAL: Extremities without clubbing, cyanosis, or edema. NEURO: Alert & Oriented x4 to person, place, time, situation. Moves all ext x4 Procedures none Medications and IVs Current Medications IV Flush (NS Flush) 2 ml UNSCH PRN IVF FLUSH AFTER USING IV ACCESS Last administered on 10/27/16 04:34; Start 10/26/16 at 13:00 Hydromorphone HCl (Dilaudid Pf Inj) 1 mg ONCE ONCE IVS Last administered on 13:38; Start 10/26/16 at 13:00; Stop 10/26/16 at 13:02; Status DC Ketorolac Tromethamine (Toradol Inj) 30 mg ONCE ONCE IV PUSH Last administered on 10/26/16 13:43; Start 10/26/16 at 13:00; Stop 10/26/16 at 13:02 ; Status DC Ondansetron HCl (Zofran Inj) 4 mg ONCE ONCE IV PUSH Last administered on 13:36; Start 10/26/16 at 13:00; Stop 10/26/16 at 13:02; Status DC Diphenhydramine HCl 25 mg 25 mg ONCE ONCE IV PUSH Last administered on 13:36; Start 10/26/16 at 13:00; Stop 10/26/16 at 13:02; Status DC Sodium Chloride (NS 1000 ml Inj) 1,000 ml @ 999 mls/hr BOLUS ONCE IV Last administered on 10/26/16 14:06; Start 10/26/16 at 14:15; Stop 10/26/16 at 15:15 ; Status DC Hydromorphone HCl (Dilaudid Pf Inj) 1 mg ONCE ONCE IV PUSH Last administered on 10/26/16 16:10; Start 10/26/16 at 15:45; Stop 10/26/16 at 15:46; Status DC Diphenhydramine HCl 25 mg 25 mg ONCE ONCE PO Last administered on 10/26/16 16 :08; Start 10/26/16 at 15:45; Stop 10/26/16 at 15:46; Status DC Sodium Chloride (NS 1000 ml Inj) 1,000 ml @ 80 mls/hr [id number] IV Last administered on 10/27/16 05:06; Start 10/26/16 at 17:00 Albuterol Sulfate (Proair Hfa Inh) 2 puff Q6H PRN INH SHORTNESS OF BREATH; Start 10/26/16 at 16:30 Folic Acid (Folate) 5 mg DAILY PO ; Start 10/27/16 at 09:00 Lisinopril (Prinivil) 2.5 mg DAILY PO ; Start 10/27/16 at 09:00 Metoprolol Succinate (Toprol Xl) 12.5 mg DAILY PO ; Start 10/27/16 at 09:00 Hydroxyurea (Hydrea) 500 mg DAILY PO ; Start 10/27/16 at 09:00 Potassium Chloride (KCl) 20 meq ONCE ONCE PO ; Start 10/26/16 at 17:00; Stop at 17:12; Status DC Acetaminophen/ Hydrocodone Bitart ([place] 10-325 Mg) 1 tab Q4H PRN PO PAIN < 5; Start 10/26/16 at 16:45 Acetaminophen/ Hydrocodone Bitart ([place] 10-325 Mg) 2 tab Q4H PRN PO PAIN >5 Last administered on 10/27/16 02:54; Start 10/26/16 at 16:45 Hydromorphone HCl (Dilaudid Pf Inj) 1 mg Q4H PRN IV PUSH BREAKTHROUGH PAIN Last administered on 10/27/16 04:30; Start 10/26/16 at 16:45 Enoxaparin Sodium (Lovenox Inj) 40 mg Q24H SQ ; Start 10/26/16 at 18:00 Albuterol/ Ipratropium (Duoneb Neb) 1 ampule Q4HR NEB PRN NEB SOB/WHEEZING; Start 10/26/16 at 16:45 Potassium Chloride (KCl 40 Meq/30 ml Liq) 40 meq ONCE ONCE PO Last administered on 10/26/16 18:13; Start 10/26/16 at 17:30; Stop 10/26/16 at 17:31 ; Status DC Diphenhydramine HCl (Benadryl) 25 mg Q4H PRN PO pruritis Last administered on 00:32; Start 10/27/16 at 00:00 Zolpidem Tartrate (Ambien) 5 mg HS PRN PO SLEEP Last administered on 10/27/16t 00:32; Start 10/27/16 at 00:30 A/P Assessment and Plan A/P Sickle cell disease with crisis normal saline with 80 cc/h Lortab 10 mg by mouth for pain with Dilaudid 1 mg IV every 4 hours for breakthrough pain continue folic acid Continue hydroxyurea 500 mg daily History of cardiomyopathy. Continue metoprolol 12.5 mg daily and Lisinopril 2.5 mg daily Hypokalemia -replaced A history of an acute exacerbation continue Proair inhaler if needed and do a nebs if needed DVT prophylaxis with Lovenox Discharge Planning possible discharge within the next one-two days if pain continues to improve. Bernardo Orozco MD Oct 27, 2016 08:55
[2016-10-27] MEDS: LISINOPRIL 5 MG TAB PO SCH (09:01)
[2016-10-27] MEDS: METOPROLOL SUCCINATE 25 MG EXTENDED RELEASE TAB PO SCH (09:01)
[2016-10-27] MEDS: FOLIC ACID 1 MG TAB PO SCH (09:02)
[2016-10-27] MEDS: HYDROXYUREA 500 MG CAP PO SCH (09:06)
[2016-10-27 12:00] VITALS: BP 118/63; PULSE 86; RESP 17; TEMP 99.5; O2SAT 95
[2016-10-27 16:00] VITALS: BP 111/53; PULSE 80; RESP 18; TEMP 97.8; O2SAT 99
[2016-10-27] MEDS: ENOXAPARIN SODIUM 40 MG/0.4 ML SYRINGE SQ SCH (18:12)
[2016-10-27 19:00] LABS: AUTOMATED NEUTROPHIL # 8.5 TH/MM3 (1.8-7.7); BASOPHIL # 0.1 TH/MM3 (0-0.2); EOSINOPHIL # 0.7 TH/MM3 (0-0.4); EOSINOPHIL % 5.4 % (0.0-4.0); LYMPH % 19.8 % (9.0-44.0); LYMPHOCYTE # 2.7 TH/MM3 (1.0-4.8); MEAN CELL VOLUME 82.6 FL (80.0-100.0); MEAN CORPUSCULAR HEMOGLOBIN 27.9 PG (27.0-34.0); MEAN CORPUSCULAR HGB CONC 33.8 % (32.0-36.0); MONO % 12.5 % (0.0-8.0); NEUT % 61.3 % (16.0-70.0); PLATELET COUNT 358 TH/MM3 (150-450); RED BLOOD COUNT 2.23 MIL/MM3 (4.00-5.30); RED CELL DISTRIBUTION WIDTH 17.8 % (11.6-17.2); WHITE BLOOD COUNT 13.8 TH/MM3 (4.0-11.0)
[2016-10-27 19:12] LABS: HEMO FLAGS DIFF FINAL
[2016-10-27 19:15] LABS: HEMATOCRIT 18.4 % (35.0-46.0)
[2016-10-27 20:00] VITALS: BP 110/57; PULSE 81; RESP 18; TEMP 98.7; O2SAT 95
[2016-10-27] MEDS ORDERED: SODIUM CHLOR 0.9% 250 ML INJ 250 ML IV ONE (20:00)
[2016-10-28] VITALS (10 sets, daily range): BP systolic 116–135; BP diastolic 57–78; PULSE 76–92; RESP 16–19; TEMP 97.9–99.3; O2SAT 96–100
[2016-10-28] MEDS: ACETAMINOPHEN/HYDROcodone 325 MG/10 MG TAB PO PRN ×6 (02:05→23:04)
[2016-10-28] MEDS: SODIUM CHLOR 0.9% 1000 ML INJ 1,000 ML IV SCH ×4 (05:41→20:11)
[2016-10-28 06:28] LABS: BACTERIA, URINE RARE /hpf; BLOOD, URINE NEG (NEG); COMMENT (UR) CULT NOT INDICATED; CULTURE IF INDICATED CULT NOT INDICATED; GLUCOSE,URINE NEG (NEG); KETONE, URINE NEG (NEG); NITRITE,URINE NEG (NEG); PH, URINE 6.5 (5.0-8.5); SQUAMOUS EPITHELIAL CELL URINE <1 /hpf (0-5); URINE COLOR LIGHT-YELLOW (YELLW/STRAW)
[2016-10-28 06:29] LABS: HEMATOCRIT 22.7 % (35.0-46.0); REVIEW FLAG FINAL
[2016-10-28] MEDS: HYDROmorphone HCL PF 1 MG/ML VIAL IV PUSH PRN ×4 (07:45→20:11)
[2016-10-28] MEDS: diphenhydrAMINE HCL 25 MG CAP PO PRN ×4 (07:46→20:10)
[2016-10-28] MEDS: HYDROXYUREA 500 MG CAP PO SCH (09:59)
[2016-10-28] MEDS: FOLIC ACID 1 MG TAB PO SCH (10:00)
[2016-10-28] MEDS: METOPROLOL SUCCINATE 25 MG EXTENDED RELEASE TAB PO SCH (10:00)
[2016-10-28] MEDS: LISINOPRIL 5 MG TAB PO SCH (10:01)
--- NOTE | 2016-10-28 11:03 | HHI.PR ---
Subjective Remarks in no acute distress. pain seems to be improving. no other complaints. Objective Vitals Vital Signs Date Time Temp Pulse Resp B/P Pulse Ox O2 Delivery O2 Flow Rate FiO2 10/28/16 08:30 83 19 135/78 98 10/28/16 08:15 18 10/28/16 08:00 Room Air 10/28/16 04:00 Nasal Cannula 2.00 10/28/16 04:00 98.4 76 18 124/67 98 10/28/16 00:37 98.1 87 16 116/64 100 10/28/16 00:35 97.9 84 16 118/62 100 10/28/16 00:20 98.1 87 16 116/64 100 10/27/16 23:30 Nasal Cannula 2.00 10/27/16 20:00 Room Air 10/27/16 20:00 98.7 81 18 110/57 95 10/27/16 16:00 97.8 80 18 111/53 99 10/27/16 15:20 16 10/27/16 12:00 99.5 86 17 118/63 95 I/O 10/27/16 10/27/16 10/27/16 10/28/16 10/28/16 10/28/16 07:00 15:00 23:00 07:00 15:00 23:00 Intake Total 900 ml 1927 ml 680 ml 534 ml Balance 900 ml 1927 ml 680 ml 534 ml Intake Oral 920 ml 360 ml IV Total 900 ml 1007 ml 320 ml 176 ml Packed Cells 358 ml # Voids 9 3 4 # Bowel Movements 0 1 Result Diagram: 10/28/16 0610 10/26/16 1330 Imaging Last Impressions Chest X-Ray 10/26/16 1246 Signed Impressions: Service Date/Time: Wednesday, October 26, 2016 13:06 - CONCLUSION: No evidence of acute cardiopulmonary disease. Ernst Garza MD Objective Remarks GENERAL: This is a well-nourished, well-developed patient, in no apparent distress. CARDIOVASCULAR: Regular rate and regular rhythm without murmurs, gallops, or rubs. RESPIRATORY: Clear to auscultation. Breath sounds equal bilaterally. No wheezes , rales, or rhonchi. GASTROINTESTINAL: Abdomen soft, non-tender, nondistended. Normal, active bowel sounds MUSCULOSKELETAL: Extremities without clubbing, cyanosis, or edema. NEURO: Alert & Oriented x4 to person, place, time, situation. Moves all ext x4 Procedures none Medications and IVs Current Medications IV Flush (NS Flush) 2 ml UNSCH PRN IVF FLUSH AFTER USING IV ACCESS Last administered on 10/27/16 15:15; Start 10/26/16 at 13:00 Hydromorphone HCl (Dilaudid Pf Inj) 1 mg ONCE ONCE IVS Last administered on 13:38; Start 10/26/16 at 13:00; Stop 10/26/16 at 13:02; Status DC Ketorolac Tromethamine (Toradol Inj) 30 mg ONCE ONCE IV PUSH Last administered on 10/26/16 13:43; Start 10/26/16 at 13:00; Stop 10/26/16 at 13:02 ; Status DC Ondansetron HCl (Zofran Inj) 4 mg ONCE ONCE IV PUSH Last administered on 13:36; Start 10/26/16 at 13:00; Stop 10/26/16 at 13:02; Status DC Diphenhydramine HCl 25 mg 25 mg ONCE ONCE IV PUSH Last administered on 13:36; Start 10/26/16 at 13:00; Stop 10/26/16 at 13:02; Status DC Sodium Chloride (NS 1000 ml Inj) 1,000 ml @ 999 mls/hr BOLUS ONCE IV Last administered on 10/26/16 14:06; Start 10/26/16 at 14:15; Stop 10/26/16 at 15:15 ; Status DC Hydromorphone HCl (Dilaudid Pf Inj) 1 mg ONCE ONCE IV PUSH Last administered on 10/26/16 16:10; Start 10/26/16 at 15:45; Stop 10/26/16 at 15:46; Status DC Diphenhydramine HCl 25 mg 25 mg ONCE ONCE PO Last administered on 10/26/16 16 :08; Start 10/26/16 at 15:45; Stop 10/26/16 at 15:46; Status DC Sodium Chloride (NS 1000 ml Inj) 1,000 ml @ 80 mls/hr [id number] IV Last administered on 10/27/16 18:10; Start 10/26/16 at 17:00 Albuterol Sulfate (Proair Hfa Inh) 2 puff Q6H PRN INH SHORTNESS OF BREATH; Start 10/26/16 at 16:30 Folic Acid (Folate) 5 mg DAILY PO Last administered on 10/28/16 10:00; Start 10/27/16 at 09:00 Lisinopril (Prinivil) 2.5 mg DAILY PO Last administered on 10/28/16 10:01; Start 10/27/16 at 09:00 Metoprolol Succinate (Toprol Xl) 12.5 mg DAILY PO Last administered on 10:00; Start 10/27/16 at 09:00 Hydroxyurea (Hydrea) 500 mg DAILY PO Last administered on 10/28/16 09:59; Start 10/27/16 at 09:00 Potassium Chloride (KCl) 20 meq ONCE ONCE PO ; Start 10/26/16 at 17:00; Stop at 17:12; Status DC Acetaminophen/ Hydrocodone Bitart ([place] 10-325 Mg) 1 tab Q4H PRN PO PAIN < 5; Start 10/26/16 at 16:45 Acetaminophen/ Hydrocodone Bitart ([place] 10-325 Mg) 2 tab Q4H PRN PO PAIN >5 Last administered on 10/28/16 09:58; Start 10/26/16 at 16:45 Hydromorphone HCl (Dilaudid Pf Inj) 1 mg Q4H PRN IV PUSH BREAKTHROUGH PAIN Last administered on 10/28/16 07:45; Start 10/26/16 at 16:45 Enoxaparin Sodium (Lovenox Inj) 40 mg Q24H SQ Last administered on 10/27/16 18 :12; Start 10/26/16 at 18:00 Albuterol/ Ipratropium (Duoneb Neb) 1 ampule Q4HR NEB PRN NEB SOB/WHEEZING; Start 10/26/16 at 16:45 Potassium Chloride (KCl 40 Meq/30 ml Liq) 40 meq ONCE ONCE PO Last administered on 10/26/16 18:13; Start 10/26/16 at 17:30; Stop 10/26/16 at 17:31 ; Status DC Diphenhydramine HCl (Benadryl) 25 mg Q4H PRN PO pruritis Last administered on 07:46; Start 10/27/16 at 00:00 Zolpidem Tartrate 5 mg 5 mg HS PRN PO SLEEP Last administered on 10/27/16 00: 32; Start 10/27/16 at 00:30 Sodium Chloride (NS 250 ml Inj) 250 ml @ 15 mls/hr ONCE ONCE IV Last administered on 10/28/16 00:20; Start 10/27/16 at 20:00; Stop 10/28/16 at 12:39 A/P Assessment and Plan A/P Sickle cell disease with crisis continue IV fluid Lortab 10 mg by mouth for pain with Dilaudid 1 mg IV every 4 hours for breakthrough pain continue folic acid Continue hydroxyurea 500 mg daily received PRBC with improved H/H- will continue to monitor History of cardiomyopathy. Continue metoprolol 12.5 mg daily and Lisinopril 2.5 mg daily Hypokalemia -replaced A history of an acute exacerbation continue Proair inhaler if needed and do a nebs if needed DVT prophylaxis with Lovenox Discharge Planning possible discharge tomorrow if continues to improve. Bernardo Orozco MD Oct 28, 2016 11:03
[2016-10-28] MEDS: ENOXAPARIN SODIUM 40 MG/0.4 ML SYRINGE SQ SCH (17:51)
[2016-10-28] MEDS: ZOLPIDEM TARTRATE 5 MG TAB PO PRN (21:37)
[2016-10-29] VITALS (7 sets, daily range): BP systolic 117–130; BP diastolic 56–71; PULSE 69–94; RESP 16–21; TEMP 97.7–98.7; O2SAT 96–100
[2016-10-29] MEDS: diphenhydrAMINE HCL 25 MG CAP PO PRN ×6 (00:18→21:05)
[2016-10-29] MEDS: HYDROmorphone HCL PF 1 MG/ML VIAL IV PUSH PRN ×6 (00:18→21:05)
[2016-10-29] MEDS: ACETAMINOPHEN/HYDROcodone 325 MG/10 MG TAB PO PRN ×5 (03:14→20:16)
[2016-10-29] MEDS: ONDANSETRON HCL 4 MG/2 ML VIAL IV PUSH PRN (05:03)
[2016-10-29] MEDS: FOLIC ACID 1 MG TAB PO SCH (07:18)
[2016-10-29] MEDS: HYDROXYUREA 500 MG CAP PO SCH (07:22)
[2016-10-29] MEDS: SODIUM CHLORIDE 0.9% FLUSH 5 ML FLUSH IVF PRN ×3 (08:13→16:13)
[2016-10-29] MEDS: METOPROLOL SUCCINATE 25 MG EXTENDED RELEASE TAB PO SCH (08:17)
[2016-10-29] MEDS: LISINOPRIL 5 MG TAB PO SCH (08:17)
--- NOTE | 2016-10-29 11:48 | HHI.PR ---
Subjective Remarks doing better. pain is improving. no other complaints. d/w the RN and no acute issues over night. Objective Vitals Vital Signs Date Time Temp Pulse Resp B/P Pulse Ox O2 Delivery O2 Flow Rate FiO2 10/29/16 09:11 100 Nasal Cannula 2.00 10/29/16 08:42 18 10/29/16 08:17 18 10/29/16 08:00 97.7 83 16 125/61 96 10/29/16 00:00 98.7 94 17 130/71 100 10/28/16 20:10 Nasal Cannula 2.00 10/28/16 20:00 99.2 81 17 122/71 100 10/28/16 18:04 96 21 10/28/16 17:12 98.2 92 17 126/58 96 10/28/16 14:18 98 21 10/28/16 12:30 99.3 82 19 126/57 100 I/O 10/28/16 10/28/16 10/28/16 10/29/16 10/29/16 10/29/16 07:00 15:00 23:00 07:00 15:00 23:00 Intake Total 534 ml 1572 ml 838 ml 761 ml Balance 534 ml 1572 ml 838 ml 761 ml Intake Oral 985 ml 480 ml 240 ml IV Total 176 ml 587 ml 358 ml 521 ml Packed Cells 358 ml # Voids 4 4 2 2 # Bowel Movements 1 Result Diagram: 10/29/16 0500 10/26/16 1330 Imaging Last Impressions Chest X-Ray 10/26/16 1246 Signed Impressions: Service Date/Time: Wednesday, October 26, 2016 13:06 - CONCLUSION: No evidence of acute cardiopulmonary disease. Ernst Garza MD Objective Remarks GENERAL: This is a well-nourished, well-developed patient, in no apparent distress. CARDIOVASCULAR: Regular rate and regular rhythm without murmurs, gallops, or rubs. RESPIRATORY: Clear to auscultation. Breath sounds equal bilaterally. No wheezes , rales, or rhonchi. GASTROINTESTINAL: Abdomen soft, non-tender, nondistended. Normal, active bowel sounds MUSCULOSKELETAL: Extremities without clubbing, cyanosis, or edema. NEURO: Alert & Oriented x4 to person, place, time, situation. Moves all ext x4 Procedures none Medications and IVs Current Medications IV Flush (NS Flush) 2 ml UNSCH PRN IVF FLUSH AFTER USING IV ACCESS Last administered on 10/29/16 08:13; Start 10/26/16 at 13:00 Hydromorphone HCl (Dilaudid Pf Inj) 1 mg ONCE ONCE IVS Last administered on 13:38; Start 10/26/16 at 13:00; Stop 10/26/16 at 13:02; Status DC Ketorolac Tromethamine (Toradol Inj) 30 mg ONCE ONCE IV PUSH Last administered on 10/26/16 13:43; Start 10/26/16 at 13:00; Stop 10/26/16 at 13:02 ; Status DC Ondansetron HCl (Zofran Inj) 4 mg ONCE ONCE IV PUSH Last administered on 13:36; Start 10/26/16 at 13:00; Stop 10/26/16 at 13:02; Status DC Diphenhydramine HCl 25 mg 25 mg ONCE ONCE IV PUSH Last administered on 13:36; Start 10/26/16 at 13:00; Stop 10/26/16 at 13:02; Status DC Sodium Chloride (NS 1000 ml Inj) 1,000 ml @ 999 mls/hr BOLUS ONCE IV Last administered on 10/26/16 14:06; Start 10/26/16 at 14:15; Stop 10/26/16 at 15:15 ; Status DC Hydromorphone HCl (Dilaudid Pf Inj) 1 mg ONCE ONCE IV PUSH Last administered on 10/26/16 16:10; Start 10/26/16 at 15:45; Stop 10/26/16 at 15:46; Status DC Diphenhydramine HCl 25 mg 25 mg ONCE ONCE PO Last administered on 10/26/16 16 :08; Start 10/26/16 at 15:45; Stop 10/26/16 at 15:46; Status DC Sodium Chloride (NS 1000 ml Inj) 1,000 ml @ 60 mls/hr [id number] IV Last administered on 10/28/16 20:11; Start 10/26/16 at 17:00 Albuterol Sulfate (Proair Hfa Inh) 2 puff Q6H PRN INH SHORTNESS OF BREATH; Start 10/26/16 at 16:30 Folic Acid (Folate) 5 mg DAILY PO Last administered on 10/29/16 07:18; Start at 09:00 Lisinopril (Prinivil) 2.5 mg DAILY PO Last administered on 10/29/16 08:17; Start 10/27/16 at 09:00 Metoprolol Succinate (Toprol Xl) 12.5 mg DAILY PO Last administered on 08:17; Start 10/27/16 at 09:00 Hydroxyurea (Hydrea) 500 mg DAILY PO Last administered on 10/29/16 07:22; Start 10/27/16 at 09:00 Potassium Chloride (KCl) 20 meq ONCE ONCE PO ; Start 10/26/16 at 17:00; Stop at 17:12; Status DC Acetaminophen/ Hydrocodone Bitart ([place] 10-325 Mg) 1 tab Q4H PRN PO PAIN < 5; Start 10/26/16 at 16:45 Acetaminophen/ Hydrocodone Bitart ([place] 10-325 Mg) 2 tab Q4H PRN PO PAIN >5 Last administered on 10/29/16 11:24; Start 10/26/16 at 16:45 Hydromorphone HCl (Dilaudid Pf Inj) 1 mg Q4H PRN IV PUSH BREAKTHROUGH PAIN Last administered on 10/29/16 08:12; Start 10/26/16 at 16:45 Enoxaparin Sodium (Lovenox Inj) 40 mg Q24H SQ Last administered on 10/28/16 17 :51; Start 10/26/16 at 18:00 Albuterol/ Ipratropium (Duoneb Neb) 1 ampule Q4HR NEB PRN NEB SOB/WHEEZING Last administered on 10/28/16 20:18; Start 10/26/16 at 16:45 Potassium Chloride (KCl 40 Meq/30 ml Liq) 40 meq ONCE ONCE PO Last administered on 10/26/16 18:13; Start 10/26/16 at 17:30; Stop 10/26/16 at 17:31 ; Status DC Diphenhydramine HCl (Benadryl) 25 mg Q4H PRN PO pruritis Last administered on 08:14; Start 10/27/16 at 00:00 Zolpidem Tartrate 5 mg 5 mg HS PRN PO SLEEP Last administered on 10/28/16 21: 37; Start 10/27/16 at 00:30 Sodium Chloride (NS 250 ml Inj) 250 ml @ 15 mls/hr ONCE ONCE IV Last administered on 10/28/16 00:20; Start 10/27/16 at 20:00; Stop 10/28/16 at 12:39 ; Status DC Ondansetron HCl (Zofran Inj) 4 mg Q6HR PRN IV PUSH nausea Last administered on 10/29/16 05:03; Start 10/29/16 at 04:30 A/P Assessment and Plan A/P Sickle cell disease with crisis- improving slowly. continue IV fluid continue with pain control continue folic acid Continue hydroxyurea 500 mg daily received PRBC with improved H/H- will continue to monitor History of cardiomyopathy. Continue metoprolol 12.5 mg daily and Lisinopril 2.5 mg daily Hypokalemia -replaced A history of an acute exacerbation continue Proair inhaler if needed and do a nebs if needed DVT prophylaxis with Lovenox Discharge Planning dc home in am if pain is controlled. Bernardo Orozco MD Oct 29, 2016 11:47
[2016-10-29] MEDS: SODIUM CHLOR 0.9% 1000 ML INJ 1,000 ML IV SCH (15:18)
[2016-10-29] MEDS: ENOXAPARIN SODIUM 40 MG/0.4 ML SYRINGE SQ SCH (18:00)
[2016-10-29] MEDS: ZOLPIDEM TARTRATE 5 MG TAB PO PRN (20:16)
[2016-10-30] VITALS: BP 118/66; PULSE 68; RESP 20; TEMP 98; O2SAT 97
[2016-10-30] MEDS: ACETAMINOPHEN/HYDROcodone 325 MG/10 MG TAB PO PRN ×6 (00:15→21:08)
[2016-10-30] MEDS: HYDROmorphone HCL PF 1 MG/ML VIAL IV PUSH PRN ×6 (01:06→22:02)
[2016-10-30] MEDS: diphenhydrAMINE HCL 25 MG CAP PO PRN ×6 (01:06→22:02)
[2016-10-30] MEDS: SODIUM CHLOR 0.9% 1000 ML INJ 1,000 ML IV SCH ×2 (05:15→21:08)
[2016-10-30] MEDS: ONDANSETRON HCL 4 MG/2 ML VIAL IV PUSH PRN (06:24)
[2016-10-30 08:00] VITALS: BP 122/75; PULSE 71; RESP 17; TEMP 98.6; O2SAT 100
[2016-10-30] MEDS: FOLIC ACID 1 MG TAB PO SCH ×2 (08:03→09:43)
[2016-10-30] MEDS: HYDROXYUREA 500 MG CAP PO SCH ×2 (08:03→09:45)
[2016-10-30] MEDS: METOPROLOL SUCCINATE 25 MG EXTENDED RELEASE TAB PO SCH ×2 (08:04→09:45)
[2016-10-30] MEDS: LISINOPRIL 5 MG TAB PO SCH ×2 (08:04→09:43)
--- NOTE | 2016-10-30 10:40 | HHI.PR ---
Subjective Remarks pain is overall improving. however she says that she had nausea and vomited earlier today. complaining of diarrhea. d/w the RN and no other acute issues over night. Objective Vitals Vital Signs Date Time Temp Pulse Resp B/P Pulse Ox O2 Delivery O2 Flow Rate FiO2 10/30/16 10:13 18 10/30/16 09:47 18 10/30/16 08:01 Room Air 10/30/16 08:00 98.6 71 17 122/75 100 10/30/16 00:00 98.0 68 20 118/66 97 10/29/16 20:15 Room Air 10/29/16 20:14 98.5 69 18 117/62 99 10/29/16 20:00 98.2 70 20 120/63 98 10/29/16 16:00 98.7 83 17 119/56 98 10/29/16 12:00 98.2 90 21 129/60 99 I/O 10/29/16 10/29/16 10/29/16 10/30/16 10/30/16 10/30/16 07:00 15:00 23:00 07:00 15:00 23:00 Intake Total 761 ml 1440 ml 1106 ml 1485 ml Output Total 550 ml Balance 761 ml 1440 ml 556 ml 1485 ml Intake Oral 240 ml 900 ml 720 ml 960 ml IV Total 521 ml 540 ml 386 ml 525 ml Output Urine Total 550 ml # Voids 2 4 3 # Bowel Movements 3 0 0 Result Diagram: 10/29/16 0500 10/26/16 1330 Imaging Last Impressions Chest X-Ray 10/26/16 1246 Signed Impressions: Service Date/Time: Wednesday, October 26, 2016 13:06 - CONCLUSION: No evidence of acute cardiopulmonary disease. Ernst Garza MD Objective Remarks GENERAL: This is a well-nourished, well-developed patient, in no apparent distress. CARDIOVASCULAR: Regular rate and regular rhythm without murmurs, gallops, or rubs. RESPIRATORY: Clear to auscultation. Breath sounds equal bilaterally. No wheezes , rales, or rhonchi. GASTROINTESTINAL: Abdomen soft, non-tender, nondistended. Normal, active bowel sounds MUSCULOSKELETAL: Extremities without clubbing, cyanosis, or edema. NEURO: Alert & Oriented x4 to person, place, time, situation. Moves all ext x4 Procedures none Medications and IVs Current Medications IV Flush (NS Flush) 2 ml UNSCH PRN IVF FLUSH AFTER USING IV ACCESS Last administered on 10/29/16 16:13; Start 10/26/16 at 13:00 Hydromorphone HCl (Dilaudid Pf Inj) 1 mg ONCE ONCE IVS Last administered on 13:38; Start 10/26/16 at 13:00; Stop 10/26/16 at 13:02; Status DC Ketorolac Tromethamine (Toradol Inj) 30 mg ONCE ONCE IV PUSH Last administered on 10/26/16 13:43; Start 10/26/16 at 13:00; Stop 10/26/16 at 13:02 ; Status DC Ondansetron HCl (Zofran Inj) 4 mg ONCE ONCE IV PUSH Last administered on 13:36; Start 10/26/16 at 13:00; Stop 10/26/16 at 13:02; Status DC Diphenhydramine HCl 25 mg 25 mg ONCE ONCE IV PUSH Last administered on 13:36; Start 10/26/16 at 13:00; Stop 10/26/16 at 13:02; Status DC Sodium Chloride (NS 1000 ml Inj) 1,000 ml @ 999 mls/hr BOLUS ONCE IV Last administered on 10/26/16 14:06; Start 10/26/16 at 14:15; Stop 10/26/16 at 15:15 ; Status DC Hydromorphone HCl (Dilaudid Pf Inj) 1 mg ONCE ONCE IV PUSH Last administered on 10/26/16 16:10; Start 10/26/16 at 15:45; Stop 10/26/16 at 15:46; Status DC Diphenhydramine HCl 25 mg 25 mg ONCE ONCE PO Last administered on 10/26/16 16 :08; Start 10/26/16 at 15:45; Stop 10/26/16 at 15:46; Status DC Sodium Chloride (NS 1000 ml Inj) 1,000 ml @ 60 mls/hr [id number] IV Last administered on 10/30/16 05:15; Start 10/26/16 at 17:00 Albuterol Sulfate (Proair Hfa Inh) 2 puff Q6H PRN INH SHORTNESS OF BREATH; Start 10/26/16 at 16:30 Folic Acid (Folate) 5 mg DAILY PO Last administered on 10/30/16 09:43; Start at 09:00 Lisinopril (Prinivil) 2.5 mg DAILY PO Last administered on 10/30/16 09:43; Start 10/27/16 at 09:00 Metoprolol Succinate (Toprol Xl) 12.5 mg DAILY PO Last administered on 09:45; Start 10/27/16 at 09:00 Hydroxyurea (Hydrea) 500 mg DAILY PO Last administered on 10/30/16 09:45; Start 10/27/16 at 09:00 Potassium Chloride (KCl) 20 meq ONCE ONCE PO ; Start 10/26/16 at 17:00; Stop at 17:12; Status DC Acetaminophen/ Hydrocodone Bitart ([place] 10-325 Mg) 1 tab Q4H PRN PO PAIN < 5; Start 10/26/16 at 16:45 Acetaminophen/ Hydrocodone Bitart ([place] 10-325 Mg) 2 tab Q4H PRN PO PAIN >5 Last administered on 10/30/16 08:47; Start 10/26/16 at 16:45 Hydromorphone HCl (Dilaudid Pf Inj) 1 mg Q4H PRN IV PUSH BREAKTHROUGH PAIN Last administered on 10/30/16 09:43; Start 10/26/16 at 16:45 Enoxaparin Sodium (Lovenox Inj) 40 mg Q24H SQ Last administered on 10/29/16 18: 00; Start 10/26/16 at 18:00 Albuterol/ Ipratropium (Duoneb Neb) 1 ampule Q4HR NEB PRN NEB SOB/WHEEZING Last administered on 10/28/16 20:18; Start 10/26/16 at 16:45 Potassium Chloride (KCl 40 Meq/30 ml Liq) 40 meq ONCE ONCE PO Last administered on 10/26/16 18:13; Start 10/26/16 at 17:30; Stop 10/26/16 at 17:31 ; Status DC Diphenhydramine HCl (Benadryl) 25 mg Q4H PRN PO pruritis Last administered on 09:42; Start 10/27/16 at 00:00 Zolpidem Tartrate 5 mg 5 mg HS PRN PO SLEEP Last administered on 10/29/16 20:16 ; Start 10/27/16 at 00:30 Sodium Chloride (NS 250 ml Inj) 250 ml @ 15 mls/hr ONCE ONCE IV Last administered on 10/28/16 00:20; Start 10/27/16 at 20:00; Stop 10/28/16 at 12:39 ; Status DC Ondansetron HCl (Zofran Inj) 4 mg Q6HR PRN IV PUSH nausea Last administered on 10/30/16 06:24; Start 10/29/16 at 04:30 A/P Assessment and Plan A/P Sickle cell disease with crisis- improving slowly. continue IV fluid continue with pain control continue folic acid Continue hydroxyurea 500 mg daily received PRBC with improved H/H- will continue to monitor nausea/ vomiting; antiemetics as needed- supportive care diarrhea; check the stool for C-diff History of cardiomyopathy. Continue metoprolol 12.5 mg daily and Lisinopril 2.5 mg daily Hypokalemia -replaced A history of an acute exacerbation continue Proair inhaler if needed and do a nebs if needed DVT prophylaxis with Lovenox Discharge Planning dc home within the next one-two days if stable. Bernardo Orozco MD Oct 30, 2016 10:40
[2016-10-30 12:00] VITALS: BP 116/67; PULSE 78; RESP 17; TEMP 98.7; O2SAT 100
[2016-10-30 12:48] VITALS: O2SAT 96
[2016-10-30 13:25] LABS: C. DIFF EPI 027 PRESUMPTIVE NEGATIVE (NEGATIVE); C. DIFF TOXIN PCR NEGATIVE (NEGATIVE)
[2016-10-30 16:00] VITALS: BP 131/63; PULSE 82; RESP 16; TEMP 97.7; O2SAT 100
[2016-10-30] MEDS: ENOXAPARIN SODIUM 40 MG/0.4 ML SYRINGE SQ SCH (17:46)
[2016-10-30 20:00] VITALS: BP 131/71; PULSE 76; RESP 20; TEMP 98.2; O2SAT 100
[2016-10-30] MEDS: ZOLPIDEM TARTRATE 5 MG TAB PO PRN (22:02)
[2016-10-31] VITALS: BP 126/68; PULSE 82; RESP 18; TEMP 97.4; O2SAT 97
[2016-10-31] MEDS: ACETAMINOPHEN/HYDROcodone 325 MG/10 MG TAB PO PRN ×3 (01:16→09:30)
[2016-10-31] MEDS: HYDROmorphone HCL PF 1 MG/ML VIAL IV PUSH PRN ×2 (02:26→06:38)
[2016-10-31] MEDS: diphenhydrAMINE HCL 25 MG CAP PO PRN ×3 (02:26→10:53)
[2016-10-31 08:00] VITALS: BP 114/56; PULSE 75; RESP 17; TEMP 98.3; O2SAT 100
[2016-10-31] MEDS: METOPROLOL SUCCINATE 25 MG EXTENDED RELEASE TAB PO SCH (09:29)
[2016-10-31] MEDS: LISINOPRIL 5 MG TAB PO SCH (09:30)
[2016-10-31] MEDS: FOLIC ACID 1 MG TAB PO SCH (09:30)
[2016-10-31] MEDS: HYDROXYUREA 500 MG CAP PO SCH (09:32)
--- NOTE | 2016-10-31 10:37 | HHI.PR ---
Subjective Remarks feels better today. pain is better controlled. no new complaints. Objective Vitals Vital Signs Date Time Temp Pulse Resp B/P Pulse Ox O2 Delivery O2 Flow Rate FiO2 10/31/16 08:37 Room Air 10/31/16 08:00 98.3 75 17 114/56 100 10/31/16 07:08 15 10/31/16 00:00 97.4 82 18 126/68 97 10/30/16 21:10 Room Air 10/30/16 20:00 98.2 76 20 131/71 100 10/30/16 17:47 18 10/30/16 16:00 97.7 82 16 131/63 100 10/30/16 12:48 96 Nasal Cannula 2.00 10/30/16 12:00 98.7 78 17 116/67 100 I/O 10/30/16 10/30/16 10/30/16 10/31/16 10/31/16 10/31/16 07:00 15:00 23:00 07:00 15:00 23:00 Intake Total 1485 ml 903 ml 1166 ml 1446 ml Output Total 500 ml 750 ml 1200 ml Balance 1485 ml 403 ml 416 ml 246 ml Intake Oral 960 ml 400 ml 720 ml 940 ml IV Total 525 ml 503 ml 446 ml 506 ml Output Urine Total 500 ml 750 ml 1200 ml # Voids 3 # Bowel Movements 0 4 0 0 Result Diagram: 10/29/16 0500 Imaging Last Impressions Chest X-Ray 10/26/16 1246 Signed Impressions: Service Date/Time: Wednesday, October 26, 2016 13:06 - CONCLUSION: No evidence of acute cardiopulmonary disease. Ernst Garza MD Objective Remarks GENERAL: This is a well-nourished, well-developed patient, in no apparent distress. CARDIOVASCULAR: Regular rate and regular rhythm without murmurs, gallops, or rubs. RESPIRATORY: Clear to auscultation. Breath sounds equal bilaterally. No wheezes , rales, or rhonchi. GASTROINTESTINAL: Abdomen soft, non-tender, nondistended. Normal, active bowel sounds MUSCULOSKELETAL: Extremities without clubbing, cyanosis, or edema. NEURO: Alert & Oriented x4 to person, place, time, situation. Moves all ext x4 Procedures none Medications and IVs Current Medications IV Flush (NS Flush) 2 ml UNSCH PRN IVF FLUSH AFTER USING IV ACCESS Last administered on 10/29/16 16:13; Start 10/26/16 at 13:00 Hydromorphone HCl (Dilaudid Pf Inj) 1 mg ONCE ONCE IVS Last administered on 13:38; Start 10/26/16 at 13:00; Stop 10/26/16 at 13:02; Status DC Ketorolac Tromethamine (Toradol Inj) 30 mg ONCE ONCE IV PUSH Last administered on 10/26/16 13:43; Start 10/26/16 at 13:00; Stop 10/26/16 at 13:02 ; Status DC Ondansetron HCl (Zofran Inj) 4 mg ONCE ONCE IV PUSH Last administered on 13:36; Start 10/26/16 at 13:00; Stop 10/26/16 at 13:02; Status DC Diphenhydramine HCl 25 mg 25 mg ONCE ONCE IV PUSH Last administered on 13:36; Start 10/26/16 at 13:00; Stop 10/26/16 at 13:02; Status DC Sodium Chloride (NS 1000 ml Inj) 1,000 ml @ 999 mls/hr BOLUS ONCE IV Last administered on 10/26/16 14:06; Start 10/26/16 at 14:15; Stop 10/26/16 at 15:15 ; Status DC Hydromorphone HCl (Dilaudid Pf Inj) 1 mg ONCE ONCE IV PUSH Last administered on 10/26/16 16:10; Start 10/26/16 at 15:45; Stop 10/26/16 at 15:46; Status DC Diphenhydramine HCl 25 mg 25 mg ONCE ONCE PO Last administered on 10/26/16 16 :08; Start 10/26/16 at 15:45; Stop 10/26/16 at 15:46; Status DC Sodium Chloride (NS 1000 ml Inj) 1,000 ml @ 60 mls/hr [id number] IV Last administered on 10/30/16 21:08; Start 10/26/16 at 17:00 Albuterol Sulfate (Proair Hfa Inh) 2 puff Q6H PRN INH SHORTNESS OF BREATH; Start 10/26/16 at 16:30 Folic Acid (Folate) 5 mg DAILY PO Last administered on 10/31/16 09:30; Start at 09:00 Lisinopril (Prinivil) 2.5 mg DAILY PO Last administered on 10/31/16 09:30; Start 10/27/16 at 09:00 Metoprolol Succinate (Toprol Xl) 12.5 mg DAILY PO Last administered on 09:29; Start 10/27/16 at 09:00 Hydroxyurea (Hydrea) 500 mg DAILY PO Last administered on 10/31/16 09:32; Start 10/27/16 at 09:00 Potassium Chloride (KCl) 20 meq ONCE ONCE PO ; Start 10/26/16 at 17:00; Stop at 17:12; Status DC Acetaminophen/ Hydrocodone Bitart ([place] 10-325 Mg) 1 tab Q4H PRN PO PAIN < 5; Start 10/26/16 at 16:45 Acetaminophen/ Hydrocodone Bitart ([place] 10-325 Mg) 2 tab Q4H PRN PO PAIN >5 Last administered on 10/31/16 09:30; Start 10/26/16 at 16:45 Hydromorphone HCl (Dilaudid Pf Inj) 1 mg Q4H PRN IV PUSH BREAKTHROUGH PAIN Last administered on 10/31/16 06:38; Start 10/26/16 at 16:45 Enoxaparin Sodium (Lovenox Inj) 40 mg Q24H SQ Last administered on 10/30/16 17: 46; Start 10/26/16 at 18:00 Albuterol/ Ipratropium (Duoneb Neb) 1 ampule Q4HR NEB PRN NEB SOB/WHEEZING Last administered on 10/28/16 20:18; Start 10/26/16 at 16:45 Potassium Chloride (KCl 40 Meq/30 ml Liq) 40 meq ONCE ONCE PO Last administered on 10/26/16 18:13; Start 10/26/16 at 17:30; Stop 10/26/16 at 17:31 ; Status DC Diphenhydramine HCl (Benadryl) 25 mg Q4H PRN PO pruritis Last administered on 06:38; Start 10/27/16 at 00:00 Zolpidem Tartrate 5 mg 5 mg HS PRN PO SLEEP Last administered on 10/30/16 22:02 ; Start 10/27/16 at 00:30 Sodium Chloride (NS 250 ml Inj) 250 ml @ 15 mls/hr ONCE ONCE IV Last administered on 10/28/16 00:20; Start 10/27/16 at 20:00; Stop 10/28/16 at 12:39 ; Status DC Ondansetron HCl (Zofran Inj) 4 mg Q6HR PRN IV PUSH nausea Last administered on 10/30/16 06:24; Start 10/29/16 at 04:30 A/P Assessment and Plan A/P Sickle cell disease with crisis- improved. continue with pain control continue folic acid Continue hydroxyurea 500 mg daily received PRBC with improved H/H- nausea/ vomiting; antiemetics as needed- resolved. diarrhea; better- C-diff negative. History of cardiomyopathy. Continue metoprolol 12.5 mg daily and Lisinopril 2.5 mg daily Hypokalemia -replaced A history of an acute exacerbation continue Proair inhaler if needed and do a nebs if needed DVT prophylaxis with Lovenox Discharge Planning dc home today. f/u; pcp and hematology. see med list. d/w the patient and RN. Bernardo Orozco MD Oct 31, 2016 10:37
[2016-10-31] MEDS ORDERED: HYDR-3535 PO (10:39)
[2016-10-31] MEDS ORDERED: HYDR500C PO (10:39)
--- NOTE | 2016-10-31 10:40 | HHI.DCPOC ---
Discharge Care Plan Diagnosis: (1) Sickle cell anemia with crisis Your Health Problems Are: Chronic Pain Goals to Promote Your Health * To prevent worsening of your condition and complications * To maintain your health at the optimal level Directions to Meet Your Goals Take your medications as prescribed Follow your dietary instruction Follow activity as directed Keep your appointments as scheduled Take your immunizations and boosters as scheduled If your symptoms worsen call your PCP, if no PCP go to Urgent Care Center or Emergency Room Smoking is Dangerous to Your Health. Avoid second hand smoke Call the 24-hour hour crisis hotline for domestic abuse at Bernardo Orozco MD Oct 31, 2016 10:40
--- NOTE | 2016-10-31 10:41 | HHI.DS ---
Discharge Summary Admission Date Oct 26, 2016 at 16:20 Discharge Date: Oct 31, 2016 Admitting Diagnosis Sickle cell pain crisis. (1) Sickle cell disease with crisis ICD Code: D57.00 Diagnosis: Principal (2) Intractable pain ICD Code: R52 Diagnosis: Principal (3) Hypokalemia ICD Code: E87.6 Diagnosis: Secondary (4) Cardiomyopathy ICD Code: I42.9 Diagnosis: Secondary Procedures none Brief History - From Admission This 26-year-old female patient with past medical history which includes asthma and sickle cell disease and cardiomyopathy. Patient reports for the past few days she is having generalized pain- which is consistent with her typical sickle cell crisis. Patient states she's been trying to manage at home with her Lortab 10 every 6 hours. Patient reports the pain is no longer relieved with Lortab at home therefore she proceeded to emergency department for further evaluation and treatment. Patient reports she vomited yesterday and the day before with this secondary to the pain. Patient reports she is slightly short of breath and a little dizzy with standing. Patient denies signs no blood in stool or urine. Patient also reports headaches she reports consistent for seasonal allergies. CBC/BMP: 10/29/16 0500 Significant Findings Laboratory Tests Test 10/29/16 05:00 Hemoglobin 7.6 GM/DL (11.6-15.3) Hematocrit 22.0 % (35.0-46.0) Imaging Last Impressions Chest X-Ray 10/26/16 1246 Signed Impressions: Service Date/Time: Wednesday, October 26, 2016 13:06 - CONCLUSION: No evidence of acute cardiopulmonary disease. Ernst Garza MD PE at Discharge GENERAL: This is a well-nourished, well-developed patient, in no apparent distress. CARDIOVASCULAR: Regular rate and regular rhythm without murmurs, gallops, or rubs. RESPIRATORY: Clear to auscultation. Breath sounds equal bilaterally. No wheezes , rales, or rhonchi. GASTROINTESTINAL: Abdomen soft, non-tender, nondistended. Normal, active bowel sounds MUSCULOSKELETAL: Extremities without clubbing, cyanosis, or edema. NEURO: Alert & Oriented x4 to person, place, time, situation. Moves all ext x4 Hospital Course Sickle cell disease with crisis- improved. continue with pain control continue folic acid Continue hydroxyurea 500 mg daily received PRBC with improved H/H- nausea/ vomiting; antiemetics as needed- resolved. diarrhea; better- C-diff negative. History of cardiomyopathy. Continue metoprolol 12.5 mg daily and Lisinopril 2.5 mg daily Hypokalemia -replaced A history of an acute exacerbation continue Proair inhaler if needed and do a nebs if needed DVT prophylaxis with Lovenox Pt Condition on Discharge: Fair Discharge Disposition: Discharge Home Discharge Time: <= 30 minutes Discharge Instructions DIET: Follow Instructions for: Heart Healthy Diet Activities you can perform: Regular-No Restrictions Follow up Referrals: Oncology PCP Follow-up New Medications: Hydroxyurea (Hydrea) 500 Mg Cap 500 MG PO DAILY sickle cell Days 30 Ref 0 CAP Continued Medications: Albuterol 6.7 GM Inh (Proventil Hfa 6.7 GM Inh) 90 Mcg/Act Aer 2 PUFF INH Q6H PRN SHORTNESS OF BREATH #1 Ref 0 INHALER Folic Acid (Folate) 1 Mg Tab 5 MG PO DAILY anemia #30 TAB Hydrocodone-Acetaminophen (Lortab) 10-325 Mg Tab 1 TAB PO Q6H PRN PAIN #12 Ref 0 TAB (This prescription has been renewed) Lisinopril (Lisinopril) 5 Mg Tab 2.5 MG PO DAILY cardiomyopathy #30 TAB Metoprolol Succinate ER 24 HR (Metoprolol Succinate ER 24 HR) 25 Mg Tab 12.5 MG PO DAILY cardiomyopathy #30 TAB Zolpidem (Ambien) 5 Mg Tab 5 MG PO HS INSOMNIA Ref 0 TAB Bernardo Orozco MD Oct 31, 2016 10:41
[2016-10-31] MEDS ORDERED: HYDROmorphone HCL PF 1 MG/ML VIAL IV PUSH ONE (11:00)
[2016-10-31 11:23] VITALS: RESP 17
== END 2016-10-31 12:50 | disposition home or self-care (01) | DRG 812 ==
LOC: NEPA 12:30 → NEDA 16:14 → OBSVTOIN 16:20 → UNDODISIN 17:57 → N07A 20:25
PROVIDERS: ADMIT Internal Medicine; ATTEND Internal Medicine
PROC: 30253N1 (ICD-10-PCS; principal; 2016-10-26)
DX: D57.00 Hb-SS disease with crisis, unspecified (principal); I42.9 Cardiomyopathy, unspecified; I50.9 Heart failure, unspecified; E87.6 Hypokalemia; J45.909 Unspecified asthma, uncomplicated
CPT/HCPCS: 36430; 71010; 80048; 81001; 84703; 85014; 85018; 85025; 85044; 86140; 86850; 86900; 86901; 86902; 86920; 86922; 87493; 94664; 96361; 96365; 96374; 96375; 96376; J1170; J1200; J1642; J1650; J1885; J2405; J7030; J7050; P9016

== ENCOUNTER 2016-11-18 03:14 | Inpatient (IN) | payer MEDICAID ==
[2016-11-18] VITALS (17 sets, daily range): BP systolic 82–119; BP diastolic 41–66; PULSE 62–108; RESP 16–20; TEMP 98–100.1; O2SAT 96–100
[~2016-11-18] VITALS: Ht 165.1 cm; Wt 68.0 kg
[~2016-11-18 03:14] MED LIST changes: -HYDR-3516 PO; +HYDR-3535 PO; +HYDR500C PO
[2016-11-18] MEDS ORDERED: SODIUM CHLOR 0.9% 1000 ML INJ 1,000 ML IV ONE (05:15)
[2016-11-18] MEDS ORDERED: SODIUM CHLORIDE 0.9% FLUSH 5 ML FLUSH IVF PRN ×2 (05:15)
[2016-11-18] MEDS ORDERED: diphenhydrAMINE HCL 50 MG/ML VIAL IV ONE (05:15)
[2016-11-18] MEDS ORDERED: HYDROmorphone HCL PF 1 MG/ML VIAL IVS ONE (05:15)
[2016-11-18] MEDS ORDERED: ONDANSETRON HCL 4 MG/2 ML VIAL IVP ONE (05:15)
--- NOTE | 2016-11-18 06:12 | RADRPT ---
EXAM DATE/TIME: 11/18/2016 05:50 [facility] COMPARISON: CHEST SINGLE AP, October 26, 2016, 13:06. INDICATIONS : Chest pain. MEDICAL HISTORY : Congestive heart failure. Sickle Cell disease. asthma SURGICAL HISTORY : section. Tubal ligation. Cholecystectomy. Port placement. ENCOUNTER: Initial ACUITY: 2 days PAIN SCORE: 4/10 LOCATION: Bilateral chest FINDINGS: A single view of the chest demonstrates the lungs to be symmetrically aerated without evidence of mas s, infiltrate or effusion. The cardiomediastinal contours are unremarkable. Osseous structures are intact. Right portacatheter noted. Tip overlies expected location of the SVC/right atrial junction. C ardiomegaly. CONCLUSION: No acute disease. Rebel Cotto MD on November 18, 2016 at 6:11 Board Certified Radiologist. This report was verified electronically.
[2016-11-18 06:14] LABS: AUTOMATED NEUTROPHIL # 14.8 TH/MM3 (1.8-7.7); BASOPHIL # 0.1 TH/MM3 (0-0.2); BASOPHIL % 0.5 % (0.0-2.0); EOSINOPHIL % 0.1 % (0.0-4.0); LYMPH % 10.5 % (9.0-44.0); MEAN CELL VOLUME 83.4 FL (80.0-100.0); MEAN CORPUSCULAR HEMOGLOBIN 28.8 PG (27.0-34.0); MEAN CORPUSCULAR HGB CONC 34.6 % (32.0-36.0); MONO % 12.7 % (0.0-8.0); NEUT % 76.2 % (16.0-70.0); PLATELET COUNT 541 TH/MM3 (150-450); RED BLOOD COUNT 2.33 MIL/MM3 (4.00-5.30); RED CELL DISTRIBUTION WIDTH 17.6 % (11.6-17.2); WHITE BLOOD COUNT 19.4 TH/MM3 (4.0-11.0)
[2016-11-18 06:17] LABS: HEMO FLAGS AUTO DIFF
[2016-11-18 06:18] LABS: HEMATOCRIT 19.4 % (35.0-46.0)
[2016-11-18 06:24] LABS: BICARBONATE 25.3 MEQ/L (21.0-32.0); POTASSIUM 3.2 MEQ/L (3.5-5.1)
[2016-11-18] MEDS ORDERED: AZITHROMYCIN 250 MG TAB PO ONE (06:30)
[2016-11-18] MEDS ORDERED: cefTRIAXone INJ 1,000 MG in SODIUM CHLORIDE 0.9% INJ 100 ML IV ONE (06:30)
[2016-11-18] MEDS ORDERED: SODIUM CHLOR 0.9% 250 ML INJ 250 ML IV ONE ×2 (06:30→12:00)
[2016-11-18] MEDS ORDERED: diphenhydrAMINE HCL 50 MG/ML VIAL IV PUSH ONE (06:30)
[2016-11-18] MEDS ORDERED: ONDANSETRON HCL 4 MG/2 ML VIAL IV PUSH ONE (06:30)
[2016-11-18] MEDS ORDERED: HYDROmorphone HCL PF 1 MG/ML VIAL IV PUSH ONE (06:30)
[2016-11-18] MEDS ORDERED: SODIUM CHLOR 0.9% 1000 ML INJ 1,000 ML IV SCH (06:41)
--- NOTE | 2016-11-18 06:41 | PD ---
HPI Chief Complaint: Sickle Cell Time Seen by Provider: 05:14 Travel History International Travel<30 days: No Contact w/Intl Traveler<30days: No Traveled to known affect area: No History of Present Illness HPI The patient's 26 years old. She arrives to the ER complaining of chest pain total body pain. She has a history of sickle cell disease. She complains of retrosternal chest pain that radiates to the right shoulder. Chest pain is not typical for her sickle cell crises. Usually she experiences extremity bone pain. She reports minimal dyspnea. She reports her boyfriend states she has been wheezing. She does not smoke. She follows with Dr. Gomez of hematology. She's had no fever. PFSH Past Medical History Hx Anticoagulant Therapy: Yes Anemia: Yes Arthritis: No Asthma: Yes Autoimmune Disease: No Blood Disorders: Yes Anxiety: Yes Depression: No Heart Rhythm Problems: No Cancer: No Cardiovascular Problems: Yes (CAD) High Cholesterol: No Chemotherapy: No Chest Pain: No Congestive Heart Failure: Yes COPD: No Cerebrovascular Accident: No Diabetes: No Diminished Hearing: No Endocrine: No Gastrointestinal Disorders: Yes GERD: No Genitourinary: No Headaches: Yes Hiatal Hernia: No Hypertension: No Immune Disorder: No Implanted Vascular Access Dvce: Yes Kidney Stones: No Musculoskeletal: Yes Neurologic: No Psychiatric: Yes Reproductive: No Respiratory: Yes (ASTHMA) Immunizations Current: Yes Migraines: No Pneumonia: Yes Radiation Therapy: No Renal Failure: No Seizures: No Sickle Cell Disease: Yes Sleep Apnea: No Thyroid Disease: No Ulcer: No PNEUMOCCOCAL Vaccine (Year): 1 ?: Not LMP: 11/09/16 : 1 Para: 1 Miscarriage: 0 : 0 Tubal Ligation: Yes Past Surgical History Abdominal Surgery: Yes AICD: No Arteriovenous Shunt: No Body Medical Devices: INFUSAPORT (3RD) Cardiac Surgery: No Section: Yes (X 1) Cholecystectomy: Yes Ear Surgery: No Endocrine Surgery: No Eye Surgery: No Genitourinary Surgery: No Gynecologic Surgery: Yes Hysterectomy: No Insulin Pump: No Joint Replacement: No Neurologic Surgery: No Oral Surgery: No Pacemaker: No Thoracic Surgery: Yes (PORT REMOVED X 2; PORT RIGHT subclavian) Other Surgery: Yes (PORTX3 PLACED AND REMOVED, gallstones) Social History Alcohol Use: No Tobacco Use: No Substance Use: No Allergies-Medications (Allergen,Severity, Reaction): Coded Allergies: Percocet (Verified Adverse Reaction, Severe, Nausea/Vomiting, 11/18/16) AND ITCHING *MDRO Multi-Drug Resistant Organism (Verified Adverse Reaction, Unknown, Cleared 02/08/15, 11/18/16) MRSA (Chest Wound) - 02/2012 MRSA PCR Screen negative 02/06/15 and 02/08/15. Cleared per Infection Control Reported Meds & Prescriptions Reported Meds & Active Scripts Active Hydrea (Hydroxyurea) 500 Mg Cap 500 Mg PO DAILY 30 Days Lortab (Hydrocodone-Acetaminophen) 10-325 Mg Tab 1 Tab PO Q6H PRN Metoprolol Succinate ER 24 HR (Metoprolol Succinate) 25 Mg Tab 12.5 Mg PO DAILY Lisinopril 5 Mg Tab 2.5 Mg PO DAILY Folate (Folic Acid) 1 Mg Tab 5 Mg PO DAILY Reported Ambien (Zolpidem Tartrate) 5 Mg Tab 5 Mg PO HS Proventil Hfa 6.7 GM Inh (Albuterol Sulfate) 90 Mcg/Act Aer 2 Puff INH Q6H PRN Review of Systems Except as stated in HPI: all other systems reviewed are Neg General / Constitutional: No: Fever Physical Exam Narrative GENERAL: 1-year-old female pleasant well-nourished well-developed SKIN: Warm and dry. HEAD: Atraumatic. Normocephalic. EYES: Pupils equal and round. No scleral icterus. No injection or drainage. ENT: No nasal bleeding or discharge. Mucous membranes pink and moist. NECK: Trachea midline. No JVD. CARDIOVASCULAR: Minimal tachycardia. Regular rate. RESPIRATORY: No accessory muscle use. Clear to auscultation. Breath sounds equal bilaterally. GASTROINTESTINAL: Abdomen soft, non-tender, nondistended. Hepatic and splenic margins not palpable. MUSCULOSKELETAL: No obvious deformities. No clubbing. No cyanosis. No edema. NEUROLOGICAL: Awake and alert. No obvious cranial nerve deficits. Motor grossly within normal limits. Normal speech. PSYCHIATRIC: Appropriate mood and affect; insight and judgment normal. Data Data Last Documented VS Vital Signs Date Time Temp Pulse Resp B/P Pulse Ox O2 Delivery O2 Flow Rate FiO2 11/18/16 06:25 100 Room Air 11/18/16 06:25 98.4 97 18 99/54 VS reviewed Orders Basic Metabolic Panel (Bmp) (11/18/16 05:15) Complete Blood Count With Diff (11/18/16 05:15) Chest, Single Ap (11/18/16 05:15) Ecg Monitoring (11/18/16 05:15) Iv Access Insert/Monitor (11/18/16 05:15) Oximetry (11/18/16 05:15) Ondansetron Inj (Zofran Inj) (11/18/16 05:15) Sodium Chloride 0.9% Flush (Ns Flush) (11/18/16 05:15) Sodium Chlor 0.9% 1000 Ml Inj (Ns 1000 M (11/18/16 05:15) Hydromorphone Pf Inj (Dilaudid Pf Inj) (11/18/16 05:15) Diphenhydramine Inj (Benadryl Inj) (11/18/16 05:15) Sodium Chloride 0.9% Flush (Ns Flush) (11/18/16 05:15) Heparin Central Flush (Heparin Central F (11/18/16 05:15) Hydromorphone Pf Inj (Dilaudid Pf Inj) (11/18/16 06:30) Diphenhydramine Inj (Benadryl Inj) (11/18/16 06:30) Ondansetron Inj (Zofran Inj) (11/18/16 06:30) Type And Screen (11/18/16 06:26) Red Blood Cells (Rbc) (11/18/16 06:26) Blood Product Administration .UPON TRANSFUSION (11/18/16 06:26) Sodium Chlor 0.9% 250 Ml Inj (Ns 250 Ml (11/18/16 06:30) Blood Culture (11/18/16 06:26) Ceftriaxone Inj (Rocephin Inj) (11/18/16 06:30) Azithromycin (Zithromax) (11/18/16 06:30) Labs Laboratory Tests Test 11/18/16 05:45 White Blood Count 19.4 TH/MM3 Red Blood Count 2.33 MIL/MM3 Hemoglobin 6.7 GM/DL Hematocrit 19.4 % Mean Corpuscular Volume 83.4 FL Mean Corpuscular Hemoglobin 28.8 PG Mean Corpuscular Hemoglobin 34.6 % Concent Red Cell Distribution Width 17.6 % Platelet Count 541 TH/MM3 Mean Platelet Volume 8.2 FL Neutrophils (%) (Auto) 76.2 % Lymphocytes (%) (Auto) 10.5 % Monocytes (%) (Auto) 12.7 % Eosinophils (%) (Auto) 0.1 % Basophils (%) (Auto) 0.5 % Neutrophils # (Auto) 14.8 TH/MM3 Lymphocytes # (Auto) 2.0 TH/MM3 Monocytes # (Auto) 2.5 TH/MM3 Eosinophils # (Auto) 0.0 TH/MM3 Basophils # (Auto) 0.1 TH/MM3 CBC Comment AUTO DIFF Sodium Level 139 MEQ/L Potassium Level 3.2 MEQ/L Chloride Level 106 MEQ/L Carbon Dioxide Level 25.3 MEQ/L Anion Gap 8 MEQ/L Blood Urea Nitrogen 9 MG/DL Creatinine 0.76 MG/DL Estimat Glomerular Filtration 110 ML/MIN Rate Random Glucose 94 MG/DL Calcium Level 8.8 MG/DL MDM Medical Decision Making Medical Screen Exam Complete: Yes Emergency Medical Condition: Yes Medical Record Reviewed: Yes Differential Diagnosis Sickle cell anemia, PE, PNA, infarct, septic Narrative Course CBC & BMP Diagram 11/18/16 05:45 Chest x-ray reveals no obvious consolidation The patient has acute anemia. We will transfuse RBCs. Case discussed with Dr. Saba. Diagnosis Primary Impression: Sickle cell anemia Qualified Code: D57.00 - Hb-SS disease with crisis Additional Impression: Chest pain Qualified Code: R07.9 - Chest pain, unspecified type Admitting Information Admitting Physician Requests: Rodger Henson MD Nov 18, 2016 06:41
[2016-11-18] MEDS ORDERED: SODIUM CHLORIDE 0.9% FLUSH 5 ML FLUSH FLUSH PRN (06:45)
[2016-11-18] MEDS ORDERED: ONDANSETRON HCL 4 MG/2 ML VIAL IVP PRN (06:45)
[2016-11-18] MEDS ORDERED: NALOXONE HCL 0.4 MG/ML AMP IV PRN (06:45)
[2016-11-18] MEDS ORDERED: POTASSIUM CHLORIDE 20 MEQ CONTROLLED RELEASE TAB PO ONE (06:45)
[2016-11-18 06:58] LABS: BANDS 1 % (0-6); BASOPHILS 2 % (0-2); METAMYELOCYTES 1 % (0-1); NEUTROPHIL # MANUAL DIFF 15.1 TH/MM3 (1.8-7.7); POLYS (SEG NEUTROPHILS) 76 % (16-70); WBC DIFF SAMPLE 100
[2016-11-18 06:59] LABS: OVALOCYTES 1+ (NORMAL); TARGET CELLS 1+ (NORMAL)
[2016-11-18 07:00] LABS: PLATELET ESTIMATE SMEAR HIGH (NORMAL); SCAN/DIFF FINAL DIFF MANUAL; SICKLE CELLS 1+ (NORMAL)
[2016-11-18] MEDS ORDERED: FUROSEMIDE 20 MG/2 ML VIAL IV PUSH SCH (07:00)
[2016-11-18 07:01] LABS: PLATELET MORPHOLOGY ENLARGED (NORMAL)
[2016-11-18] MEDS ORDERED: POTASSIUM CHLORIDE 10 MEQ CONTROLLED RELEASE TAB PO ONE (07:15)
[2016-11-18] MEDS: SODIUM CHLORIDE 0.9% FLUSH 5 ML FLUSH FLUSH SCH ×2 (07:48→21:00)
--- NOTE | 2016-11-18 09:41 | HHI.HP ---
HPI Service [facility] Primary Care Physician No Primary Care Physician Admission Diagnosis Sickle Cell Anemia; CP Diagnoses: Chief Complaint: Sickle cell anemia, chest pain, SOB Travel History International Travel<30 Days: No Contact w/Intl Traveler <30 Da: No Traveled to Known Affected Are: No Sepsis Criteria SIRS Criteria (2 or more): Heart rate over 90, WBC > 84047, < 4000 or > 10% bands Sepsis Criteria (SIRS+source): Infect source susp/known History of Present Illness Patient is a 26-year-old female with primary medical history of sickle cell anemia, CHF, asthma who came into the hospital for complaints of severe right-sided chest pain described as tightening of the chest with some congestion and generalized body pain. She states she's been having chest tightness and pain about 2 days ago, described as tightness sharp intermittent pain, aggravated by coughing, relieved by her Lortab's, rest and repositioning. She thought that it can go away but unfortunately states it has been worsening that she came in to seek further evaluation. Patient reports that she has been coughing in the past 2 days also, with mucous expectoration described as green yellow small amount, accompanied by chills without any fever. Recent hospital admission 10/26/16 2 10/31/16 for sickle cell crisis. On exam, patient states that she still has generalized pain chest, back, bilateral shoulders, bilateral hips and lower extremities, rated as 10 over 10, sharp aching nagging pain, relieved with hydromorphone and Benadryl. States she continues to have difficulty taking deep breaths. Otherwise, denies fevers , headaches, palpitations, dizziness, dysuria, abdominal pain, cramping, nausea , vomiting, diarrhea. Denies hematemesis, hematochezia. In the ED. Patient was given 1 L bolus fluid, hydromorphone, Benadryl, ceftriaxone, azithromycin, and potassium chloride. Labs reviewed. Leukocytosis WBC 19.4, anemia was likely sickle cell RBC 2.3, hemoglobin 6.7, hematocrit 19.4, platelet count 541. BMP showed potassium 3.2. Chest x-ray showed cardiomegaly. No acute disease. Review of Systems Except as stated in HPI: all other systems reviewed are Neg Past Family Social History Past Medical History Sickle cell Asthma Congestive heart failure Past Surgical History [id number] insertion and removal 2 Cholecystectomy Reported Medications Hydrea (Hydroxyurea) 500 Mg Cap 500 Mg PO DAILY 30 Days Lortab (Hydrocodone-Acetaminophen) 10-325 Mg Tab 1 Tab PO Q6H PRN Metoprolol Succinate ER 24 HR (Metoprolol Succinate) 25 Mg Tab 12.5 Mg PO DAILY Lisinopril 5 Mg Tab 2.5 Mg PO DAILY Folate (Folic Acid) 1 Mg Tab 5 Mg PO DAILY Reported Ambien (Zolpidem Tartrate) 5 Mg Tab 5 Mg PO HS Proventil Hfa 6.7 GM Inh (Albuterol Sulfate) 90 Mcg/Act Ae Allergies: Coded Allergies: Percocet (Verified Adverse Reaction, Severe, Nausea/Vomiting, 11/18/16) AND ITCHING *MDRO Multi-Drug Resistant Organism (Verified Adverse Reaction, Unknown, Cleared 02/08/15, 11/18/16) MRSA (Chest Wound) - 02/2012 MRSA PCR Screen negative 02/06/15 and 02/08/15. Cleared per Infection Control Active Ordered Medications Current Medications Medications (Trade) Dose Ordered Sig/Pavel Route Start Time Stop Time Status Last Admin (NS 250 ml Inj) 250 ml @ 15 mls/hr ONCE ONCE IV 11/18/16 06:30 11/18/16 23:09 (NS Flush) 2 ml UNSCH PRN FLUSH 11/18/16 06:45 (NS Flush) 2 ml BID FLUSH 11/18/16 09:00 11/18/16 07:48 (Zofran Inj) 4 mg Q6H PRN IVP 11/18/16 06:45 (Narcan Inj) 0.4 mg UNSCH PRN IV 11/18/16 06:45 (Dilaudid Pf Inj) 1 mg Q4H PRN IV PUSH 11/18/16 07:00 Family History Sibling has sickle cell Both sides of the family mother and father have diabetes Social History Reports occasional alcohol use Denies tobacco use Denies illicit drug use Physical Exam Vital Signs Vital Signs Date Time Temp Pulse Resp B/P Pulse Ox O2 Delivery O2 Flow Rate FiO2 11/18/16 07:30 98.0 97 18 109/66 98 Nasal Cannula 2 11/18/16 07:30 76 17 99 Nasal Cannula 2 11/18/16 07:30 17 99 Nasal Cannula 2 11/18/16 07:00 18 11/18/16 07:00 17 11/18/16 06:25 100 Room Air 11/18/16 06:25 98.4 97 18 99/54 100 Room Air 11/18/16 03:16 99.5 108 16 119/54 98 Physical Exam GENERAL: This is a well-nourished, well-developed patient, mildly ill appearing. SKIN: No rashes, ecchymoses or lesions. Warm and dry. HEAD: Atraumatic. Normocephalic. No temporal or scalp tenderness. EYES: Pupils equal round and reactive. Extraocular motions intact. No scleral icterus. No injection or drainage. ENT: Nose without bleeding. Throat without erythema. Uvula midline. Airway patent. NECK: Trachea midline. No JVD or lymphadenopathy. Supple, nontender, no meningeal signs. CARDIOVASCULAR: Tachycardia without murmurs, gallops, or rubs. RESPIRATORY: No wheezes, rales, or rhonchi. Fair air entry. GASTROINTESTINAL: Abdomen soft, non-tender, nondistended. Bowel sounds active 4. MUSCULOSKELETAL: Extremities without clubbing, cyanosis, or edema. Joint tenderness to palpation. NEUROLOGICAL: Awake and alert. Oriented to time, place, person. Motor and sensory grossly within normal limits. No focal neuro deficit. Normal speech. Laboratory Laboratory Tests Test 11/18/16 11/18/16 05:45 06:40 White Blood Count 19.4 Red Blood Count 2.33 Hemoglobin 6.7 Hematocrit 19.4 Mean Corpuscular Volume 83.4 Mean Corpuscular Hemoglobin 28.8 Mean Corpuscular Hemoglobin 34.6 Concent Red Cell Distribution Width 17.6 Platelet Count 541 Mean Platelet Volume 8.2 Neutrophils (%) (Auto) 76.2 Lymphocytes (%) (Auto) 10.5 Monocytes (%) (Auto) 12.7 Eosinophils (%) (Auto) 0.1 Basophils (%) (Auto) 0.5 Neutrophils # (Auto) 14.8 Lymphocytes # (Auto) 2.0 Monocytes # (Auto) 2.5 Eosinophils # (Auto) 0.0 Basophils # (Auto) 0.1 CBC Comment AUTO DIFF Differential Total Cells 100 Counted Neutrophils % (Manual) 76 Band Neutrophils % 1 Lymphocytes % 8 Monocytes % 12 Basophils % 2 Neutrophils # (Manual) 15.1 Metamyelocytes 1 Differential Comment FINAL DIFF MANUAL Platelet Estimate HIGH Platelet Morphology Comment ENLARGED Sickle Cells 1+ Target Cells 1+ Ovalocytes 1+ Sodium Level 139 Potassium Level 3.2 Chloride Level 106 Carbon Dioxide Level 25.3 Anion Gap 8 Blood Urea Nitrogen 9 Creatinine 0.76 Estimat Glomerular Filtration 110 Rate Random Glucose 94 Calcium Level 8.8 Blood Type AB POSITIVE Antibody Screen NEGATIVE Date/Time Procedure Status Source Growth 11/18/16 06:40 Aerobic Blood Culture Received Blood Peripheral Pending 11/18/16 06:40 Anaerobic Blood Culture Received Blood Peripheral Pending Result Diagram: 11/18/1654411/18/16544 Imaging Last Impressions Chest X-Ray 11/18/16514 Signed Impressions: Service Date/Time: Friday, November 18, 2016 05:50 - CONCLUSION: No acute disease. Rebel Cotto MD Assessment and Plan Problem List: (1) Chest pain ICD Code: R07.9 Status: Acute (2) Sickle cell anemia with crisis ICD Code: D57.00 Status: Acute (3) Hypokalemia ICD Code: E87.6 Status: Acute (4) Pneumonia ICD Code: J18.9 Status: Acute (5) CHF (congestive heart failure) ICD Code: I50.9 Status: Acute (6) Cardiomyopathy ICD Code: I42.9 Status: Chronic (7) HCAP (healthcare-associated pneumonia) ICD Code: J18.9 Status: Acute Assessment and Plan Patient is a 26-year-old female with primary medical history of sickle cell anemia, CHF, asthma who came into the hospital for complaints of severe right-sided chest pain described as tightening of the chest with some congestion and generalized body pain. She states she's been having chest tightness and pain about 2 days ago, described as tightness sharp intermittent pain, aggravated by coughing, relieved by her Lortab's, rest and repositioning. She thought that it can go away but unfortunately states it has been worsening that she came in to seek further evaluation. Patient reports that she has been coughing in the past 2 days also, with mucous expectoration described as green yellow small amount, accompanied by chills without any fever. Recent hospital admission 10/26/16 2 10/31/16 for sickle cell crisis. HCAP Pneumonia, possible S. Pneumoniae Sepsis Asthma - Tachycardia, leukocytosis WBC 19.4 - Chest x-ray no acute disease. Cardiomegaly. - Azithromycin, ceftriaxone started in the ED. Azithromycin and Zosyn to start. - DuoNeb's scheduled, when necessary - O2 when necessary - Monitor respiratory status - Follow up blood culture results. Check Lactic Acid. Check UA. Follow-up in trend CBC tomorrow Sickle cell crisis Sickle cell anemia Atypical chest pain, generalized pain - H&H 6.7/19.4 - Blood transfusions 2 units PRBC - Hematology consult. Input appreciated - IV fluid hydration - Pain management IV hydromorphone, patient requesting Benadryl to be given on hydromorphone. Lortabs when necessary - Monitor CBC. Hypokalemia - replacement - Check BMP tomorrow HTN Cardiomyopathy CHF - Lasix 1 dose now, in between transfusion order - Continue home meds metoprolol, lisinopril - Monitor BP trend DVT prop SCD Written by Andreia Markham, on behalf of Dr. Galarza on 11/18/16 at 09:39. The exam, history, and the medical decision-making described in the above note were completed with the assistance of the mid-level provider. I reviewed and agree with the findings presented. I attest that I had a [id number] encounter with the patient on the same day, and personally performed and documented my assessment and findings in the medical record. The exam, history, and the medical decision-making described in the above note were completed with the assistance of the mid-level provider. I reviewed and agree with the findings presented. I attest that I had a [id number] encounter with the patient on the same day, and personally performed and documented my assessment and findings in the medical record. Code Status Full code Discussed Condition With Patient, nursing Attending Statement patient seen and examined asking for regular diet fpain crisis- requesting for benadryl lungs clear abdomen soft, good bowel sounds Sickle Cell pain/crisis Transfuse 1 unit RBC regular diet prn pain meds CBC in am Low grade fever, leukocytosis -Incentive spirometry hourly get UA ff blood cultures started empirically on zosyn Hypokalemia- reqlace with po K Problem Qualifiers (1) Chest pain: Qualified Code: R07.9 - Chest pain, unspecified type Andreia Ho Nov 18, 2016 09:41 John Galarza MD Nov 18, 2016 12:59
[2016-11-18] MEDS ORDERED: RESP: ALBUTEROL 2.5 MG/IPRATROPIUM 0.5 MG NEB (PRN) NEB (09:45)
[2016-11-18] MEDS: HYDROmorphone HCL PF 1 MG/ML VIAL IV PUSH PRN ×3 (10:21→19:58)
[2016-11-18] MEDS: SODIUM CHLORIDE 0.9% FLUSH 5 ML FLUSH IVF SCH ×2 (11:22→21:00)
[2016-11-18] MEDS: PIPERACIL-TAZO 4.5 GM PREMIX 100 ML IV SCH ×3 (11:36→23:20)
[2016-11-18] MEDS ORDERED: BENA25TA3 PO (12:25)
[2016-11-18] MEDS: RESP: ALBUTEROL 2.5 MG/IPRATROPIUM 0.5 MG NEB (SCH) NEB ×2 (14:21→19:26)
[2016-11-18] MEDS: diphenhydrAMINE HCL 50 MG/ML VIAL IV PUSH PRN (15:32)
[2016-11-18 16:34] LABS: INDIRECT BILIRUBIN 1.8 MG/DL (0.0-0.8); TOTAL BILIRUBIN ADULT 2.2 MG/DL (0.2-1.0)
[2016-11-18 16:53] LABS: RETIC % 2.8 % (0.4-3.0)
[2016-11-18 16:57] LABS: REVIEW FLAG FINAL
[2016-11-18 20:02] LABS: BLOOD, URINE NEG (NEG); COMMENT (UR) CULT NOT INDICATED; CULTURE IF INDICATED CULT NOT INDICATED; GLUCOSE,URINE NEG (NEG); KETONE, URINE NEG (NEG); MUCUS URINE FEW /lpf (OCC); NITRITE,URINE NEG (NEG); SQUAMOUS EPITHELIAL CELL URINE 5 /hpf (0-5); URINE COLOR YELLOW (YELLW/STRAW)
--- NOTE | 2016-11-18 21:00 | MB ---
cc: ANNE SEALS DATE OF CONSULTATION: 11/18/2016 REASON FOR CONSULTATION: Sickle-cell crisis CHIEF COMPLAINT: Chest tightness and pain all over. HISTORY OF PRESENT ILLNESS: Ms. Frazier is a 26-year-old female with a past medical history of sickle cell disease. The patient has a long history of recurrent hospital admissions. She is noncompliant with her treatment regimen and has narcotic seeking behavior. She was recently discharged from the hematology clinic. She was prescribed Hydrea multiple times in the past and she has been noncompliant. She now presents to the [place] emergency department with complaints of chest tightness and pain all over. She denies any cough or congestion. She says that she feels warm. She states that this appears to be her usual sickle-cell crisis. The patient's baseline hemoglobin is in the low seven range. On admission she was found to have leukocytosis with WBC of 19.4, hemoglobin of 6.7. Chest x-ray did not show any acute disease. She was noted to have cardiomegaly which is chronic. The patient states that her pain is only relieved when she is given Benadryl and Dilaudid. REVIEW OF SYSTEMS: A comprehensive 14-point review of systems was completed which is negative except as described in the HPI. PAST MEDICAL HISTORY: 1. Sickle-cell disease. 2. Asthma. 3. Congestive heart failure. 4. Cardiomyopathy. 5. Narcotic seeking behavior. 6. Noncompliant with medical recommendations. PAST SURGICAL HISTORY: 1. Ovgzih-E-Pqek insertion, and removal x2. 2. 3. Cholecystectomy. MEDICATIONS: 1. Hydrea 500 milligram one tablet p.o. daily 2. Lortab 10/325 one tablet p.o. q6 hours p.r.n. 3. Metoprolol 25 milligrams half tablet p.o. daily 4. Lisinopril 2.5 milligrams p.o. daily 5. Folate 1 milligram one tablet p.o. daily 6. Ambien 5 milligrams, one tablet p.o. q hs. 7. Proventil 6.7 grams INH. ALLERGIES: Percocet FAMILY HISTORY: History of sickle-cell disease in the family, diabetes. SOCIAL HISTORY: Occasional alcohol use. Denies tobacco, illicit drugs. PHYSICAL EXAMINATION: Vital signs: Blood pressure is 94/45, pulse is in the 80s, temperature is 99.4, pulse ox is 100% on room air. General: Well-developed, well-nourished female in mild distress. HEENT: Pupils are equal, round, reactive to light. EOMI. No oral thrush. No oral lesions. Neck: Supple. No JVD, no bruits. No lymphadenopathy. Chest: Clear to auscultation bilaterally. Cardiac: S1-S2, regular rate and rhythm. Abdomen: Soft, nontender, nondistended. Bowel sounds are present. Extremities: Without any edema, erythema or cyanosis. Skin: Without any petechiae, lesion or bruises. LABORATORY DATA WBC 19.4, hemoglobin is 6.7, MCV 83.4, platelet count is 541, retic count is 1.8. Serum chemistries show a sodium of 139, potassium 3.2, CO2 is 25.3, creatinine 0.76, ferritin is 4000, total bilirubin is 2.2, direct bilirubin is 0.4, indirect bilirubin is 1.8, AST 44, ALT 16, alk phos is 59, LDH is 346. 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 1. Sickle cell crisis. There is no evidence of acute chest syndrome, chest x-ray does not show any acute pathology. Her baseline hemoglobin is in the low seven. I would recommend avoiding over transfusion in this patient. Check daily CBC. Check LDH, retic count and total bilirubin on a daily basis. Recommend incentive spirometry and folic acid 1 milligram p.o. daily. Would recommend judicious use of pain medication in this patient with narcotic seeking behavior. I would recommend switching to oral pain medications as soon as possible. Start Oral Oxycodone 10 mg q 4-6 prn pain with prn IV Dilaudid. 2. Fever/Leukocytosis: - Obtain UA and Urine Culture. - I agree with IV antibiotics for now. Can switch to Azithromycin if remains afebrile. - Get Chest X-ray in AM 3. Iron Overload - Start Xjade once pain crisis has resolved Thank you for allowing me to participate in the care of this patient. I will continue to follow this patient along. MD JUNITO Johnson /7:08 PM /7:54 PM AL
[2016-11-19] VITALS (8 sets, daily range): BP systolic 100–118; BP diastolic 55–65; PULSE 78–114; RESP 18–20; TEMP 97.8–99.3; O2SAT 94–99
[2016-11-19] MEDS: SODIUM CHLORIDE 0.9% FLUSH 5 ML FLUSH IVF PRN ×2 (00:04→20:11)
[2016-11-19] MEDS: diphenhydrAMINE HCL 50 MG/ML VIAL IV PUSH PRN ×3 (00:04→16:07)
[2016-11-19] MEDS: HYDROmorphone HCL PF 1 MG/ML VIAL IV PUSH PRN ×6 (00:05→20:11)
[2016-11-19] MEDS: PIPERACIL-TAZO 4.5 GM PREMIX 100 ML IV SCH ×3 (05:06→16:06)
[2016-11-19 06:19] LABS: AUTOMATED NEUTROPHIL # 10.1 TH/MM3 (1.8-7.7); BASOPHIL # 0.2 TH/MM3 (0-0.2); BASOPHIL % 1.2 % (0.0-2.0); EOSINOPHIL # 0.1 TH/MM3 (0-0.4); EOSINOPHIL % 0.4 % (0.0-4.0); LYMPH % 19.7 % (9.0-44.0); LYMPHOCYTE # 3.1 TH/MM3 (1.0-4.8); MEAN CELL VOLUME 84.1 FL (80.0-100.0); MEAN CORPUSCULAR HGB CONC 34.4 % (32.0-36.0); MONO % 15.5 % (0.0-8.0); NEUT % 63.2 % (16.0-70.0); PLATELET COUNT 386 TH/MM3 (150-450); RED BLOOD COUNT 2.35 MIL/MM3 (4.00-5.30); WHITE BLOOD COUNT 15.9 TH/MM3 (4.0-11.0)
[2016-11-19 06:29] LABS: HEMO FLAGS AUTO DIFF
[2016-11-19 06:34] LABS: HEMATOCRIT 19.8 % (35.0-46.0)
[2016-11-19 06:45] LABS: POTASSIUM 3.7 MEQ/L (3.5-5.1)
[2016-11-19] MEDS: RESP: ALBUTEROL 2.5 MG/IPRATROPIUM 0.5 MG NEB (SCH) NEB ×3 (07:59→20:04)
[2016-11-19] MEDS: SODIUM CHLORIDE 0.9% FLUSH 5 ML FLUSH FLUSH SCH (08:26)
[2016-11-19 08:35] LABS: BANDS 3 % (0-6); MYELOCYTES 1 % (0-0); NEUTROPHIL # MANUAL DIFF 9.7 TH/MM3 (1.8-7.7); POLYS (SEG NEUTROPHILS) 57 % (16-70); WBC DIFF SAMPLE 100
[2016-11-19 08:36] LABS: PLATELET ESTIMATE SMEAR NORMAL (NORMAL); PLATELET MORPHOLOGY NORMAL (NORMAL); SCAN/DIFF FINAL DIFF MANUAL; TARGET CELLS 1+ (NORMAL)
[2016-11-19 08:37] LABS: OVALOCYTES 1+ (NORMAL)
[2016-11-19] MEDS: SODIUM CHLORIDE 0.9% FLUSH 5 ML FLUSH IVF SCH ×2 (09:00→20:11)
--- NOTE | 2016-11-19 09:38 | HHI.PR ---
Subjective Remarks patient appears comfortable, no chills no cough, no abdominal pain, nausea or vomiting eating breakfast with good appetite when told about transitioning to po pain meds "I'm not ready yet" Objective Vitals Vital Signs Date Time Temp Pulse Resp B/P Pulse Ox O2 Delivery O2 Flow Rate FiO2 11/19/16 08:10 99.2 114 20 118/65 98 11/19/16 03:29 97.8 78 18 101/55 97 11/19/16 00:05 108 11/18/16 23:31 98.7 95 18 103/52 100 11/18/16 19:40 99.5 100 20 103/58 98 11/18/16 19:40 99.5 100 20 103/58 98 11/18/16 19:28 96 21 11/18/16 17:27 99.4 84 18 94/45 100 11/18/16 16:56 99.4 80 18 82/41 100 11/18/16 16:31 99.4 89 18 96/51 100 11/18/16 16:07 99.6 62 18 87/50 100 11/18/16 15:25 99.2 80 18 88/45 99 11/18/16 14:48 100.1 101 17 101/54 100 11/18/16 14:21 98 Nasal Cannula 2.00 11/18/16 11:26 99.8 62 19 86/52 100 I/O 11/18/16 11/18/16 11/18/16 11/19/16 11/19/16 11/19/16 07:00 15:00 23:00 07:00 15:00 23:00 Intake Total 200 ml Balance 200 ml Intake Oral 200 ml # Voids 1 # Bowel Movements 0 Result Diagram: 11/19/16 0510 11/19/16 0510 Imaging Last Impressions Chest X-Ray 11/18/1615 Signed Impressions: Service Date/Time: Friday, November 18, 2016 05:50 - CONCLUSION: No acute disease. Rebel Cotto MD Objective Remarks awake and alert, Not in distress anicteric lungs clear regular rhythm abdomen soft, nontender extremities no edema neuro exam- unremarkable A/P Problem List: (1) Chest pain ICD Code: R07.9 Status: Acute (2) Sickle cell anemia with crisis ICD Code: D57.00 Status: Acute (3) Hypokalemia ICD Code: E87.6 Status: Acute (4) Pneumonia ICD Code: J18.9 Status: Acute (5) CHF (congestive heart failure) ICD Code: I50.9 Status: Acute (6) Cardiomyopathy ICD Code: I42.9 Status: Chronic (7) HCAP (healthcare-associated pneumonia) ICD Code: J18.9 Status: Acute Assessment and Plan Patient is a 26-year-old female with primary medical history of sickle cell anemia, CHF, asthma who came into the hospital for complaints of severe right-sided chest pain described as tightening of the chest with some congestion and generalized body pain. She states she's been having chest tightness and pain about 2 days ago, described as tightness sharp intermittent pain, aggravated by coughing, relieved by her Lortab's, rest and repositioning. She thought that it can go away but unfortunately states it has been worsening that she came in to seek further evaluation. Patient reports that she has been coughing in the past 2 days also, with mucous expectoration described as green yellow small amount, accompanied by chills without any fever. Recent hospital admission 10/26/16 2 10/31/16 for sickle cell crisis. Sickle cell crisis Sickle cell anemia T low grade. On Zosyn H and H baseline- no transfusion Dr. Jacobo - Hematology ff along with us Continue IV Dilaudid . and prn IV Benadryl. transition to po pain meds eventually Sepsis= Fever Leukoctyosis- still low grade fever. cough better CXR negative. FF blood cultures. continue on Zosyn reinforced incentive spirometry- and explained to her Hypokalemia - corrected HTN- controlled Cardiomyopathy- not in failure - Continue home meds metoprolol, lisinopril - Monitor BP trend DVT - encourage to ambulate around room Problem Qualifiers (1) Chest pain: Qualified Code: R07.9 - Chest pain, unspecified type John Galarza MD Nov 19, 2016 09:38
--- NOTE | 2016-11-19 12:34 | PD.ONC.PN ---
Subjective Subjective Remarks Afebrile overnight. patient resting comfortably. She states she continues to have crisis type pain in her joints and in her chest. +cough. Objective Data Date Time Temp Pulse Resp B/P Pulse Ox O2 Delivery O2 Flow Rate FiO2 11/19/16 08:10 99.2 114 20 118/65 98 11/19/16 03:29 97.8 78 18 101/55 97 11/19/16 00:05 108 11/18/16 23:31 98.7 95 18 103/52 100 11/18/16 19:40 99.5 100 20 103/58 98 11/18/16 19:40 99.5 100 20 103/58 98 11/18/16 19:28 96 21 11/18/16 17:27 99.4 84 18 94/45 100 11/18/16 16:56 99.4 80 18 82/41 100 11/18/16 16:31 99.4 89 18 96/51 100 11/18/16 16:07 99.6 62 18 87/50 100 11/18/16 15:25 99.2 80 18 88/45 99 11/18/16 14:48 100.1 101 17 101/54 100 11/18/16 14:21 98 Nasal Cannula 2.00 Result Diagram: 11/19/16 0510 11/19/16 0510 Laboratory Results Laboratory Tests Test 11/18/16 11/19/16 18:00 05:10 Urine Color YELLOW Urine Turbidity HAZY Urine pH 6.0 Urine Specific [place] 1.015 Urine Protein TRACE mg/dL Urine Glucose (UA) NEG mg/dL Urine Ketones NEG mg/dL Urine Occult Blood NEG Urine Nitrite NEG Urine Bilirubin NEG Urine Urobilinogen LESS THAN 2.0 MG/DL Urine Leukocyte Esterase NEG Urine WBC 2 /hpf Urine Squamous Epithelial 5 /hpf Cells Urine Mucus FEW /lpf Microscopic Urinalysis Comment CULT NOT INDICATED White Blood Count 15.9 TH/MM3 Red Blood Count 2.35 MIL/MM3 Hemoglobin 6.8 GM/DL Hematocrit 19.8 % Mean Corpuscular Volume 84.1 FL Mean Corpuscular Hemoglobin 29.0 PG Mean Corpuscular Hemoglobin 34.4 % Concent Red Cell Distribution Width 17.0 % Platelet Count 386 TH/MM3 Mean Platelet Volume 8.9 FL Neutrophils (%) (Auto) 63.2 % Lymphocytes (%) (Auto) 19.7 % Monocytes (%) (Auto) 15.5 % Eosinophils (%) (Auto) 0.4 % Basophils (%) (Auto) 1.2 % Neutrophils # (Auto) 10.1 TH/MM3 Lymphocytes # (Auto) 3.1 TH/MM3 Monocytes # (Auto) 2.5 TH/MM3 Eosinophils # (Auto) 0.1 TH/MM3 Basophils # (Auto) 0.2 TH/MM3 CBC Comment AUTO DIFF Differential Total Cells 100 Counted Neutrophils % (Manual) 57 % Band Neutrophils % 3 % Lymphocytes % 24 % Monocytes % 15 % Neutrophils # (Manual) 9.7 TH/MM3 Myelocytes 1 % Differential Comment FINAL DIFF MANUAL Platelet Estimate NORMAL Platelet Morphology Comment NORMAL Target Cells 1+ Ovalocytes 1+ Sodium Level 139 MEQ/L Potassium Level 3.7 MEQ/L Chloride Level 106 MEQ/L Carbon Dioxide Level 24.0 MEQ/L Anion Gap 9 MEQ/L Blood Urea Nitrogen 6 MG/DL Creatinine 0.74 MG/DL Estimat Glomerular Filtration 114 ML/MIN Rate Random Glucose 98 MG/DL Calcium Level 8.1 MG/DL Culture Results Microbiology Date/Time Procedure Status Source Growth 11/18/16 06:30 Aerobic Blood Culture - Preliminary Resulted Blood Peripheral Group D Enterococcus 11/18/16 06:30 Anaerobic Blood Culture - Preliminary Resulted Group D Enterococcus 11/18/16 06:40 Aerobic Blood Culture - Preliminary Resulted Blood Peripheral Group D Enterococcus 11/18/16 06:40 Anaerobic Blood Culture - Preliminary Resulted Group D Enterococcus Imaging Studies Last Impressions Chest X-Ray 11/18/16 0515 Signed Impressions: Service Date/Time: Friday, November 18, 2016 05:50 - CONCLUSION: No acute disease. Rebel Cotto MD Administered Medications Medications (Trade) Dose Ordered Sig/Pavel Route PRN Reason Start Time Stop Time Status Last Admin Dose Admin IV Flush (NS Flush) 2 ml UNSCH PRN IVF FLUSH AFTER USING IV ACCESS 11/18/16 10:00 11/19/16 00:04 IV Flush 2 ml 2 ml BID IVF 11/18/16 10:00 11/18/16 11:22 Piperacillin Sod/ Tazobactam Sod (Zosyn 4.5 Gm Premix) 100 ml @ 200 mls/hr Q6H IV 11/18/16 11:00 11/19/16 11:56 Hydromorphone HCl (Dilaudid Pf Inj) 0.5 mg Q4H PRN IV PUSH pain >5 11/19/16 12:30 11/19/16 12:00 Objective Remarks GENERAL: Young woman, sitting up in bed watching TV in nad. SKIN: Warm and dry. HEAD: Normocephalic. EYES: No injection or drainage. NECK: Supple, trachea midline. CARDIOVASCULAR: Regular rate and rhythm RESPIRATORY: Breath sounds equal bilaterally. No accessory muscle use. GASTROINTESTINAL: Abdomen soft, non-tender, nondistended. EXTREMITIES: No cyanosis NEUROLOGICAL: No obvious focal deficit. Awake, alert, and oriented x3. Assessment/Plan Problem List: (1) Sickle cell anemia with crisis Status: Acute Plan: --no evidence of acute chest syndrome, --chest x-ray does not show any acute pathology. --baseline hemoglobin is in the low seven. would recommend avoiding over transfusion in this patient. --Check daily CBC. LDH, retic count and total bilirubin --continue incentive spirometry and folic acid 1 milligram p.o. daily. (2) Sepsis Status: Acute Plan: --on Zosyn --BC + streptococcus --Can switch to Azithromycin if remains afebrile. --CXR WNL --U/A WNL (3) Iron overload due to repeated red blood cell transfusions Status: Acute Plan: - Start EXjade once pain crisis has resolved Assessment 26-year-old female with sickle cell disease admitted with chest tightness and generalized pain Plan 1. continue IVF, pain management 2. monitor CBC--tolerated transfusion last night. Will hold off on transfusion today d/t iron overload. 3. continue PRN dilaudid. 4. continue IV abx--Zosyn. await specificities Attending Statement The exam, history, and the medical decision-making described in the above note were completed with the assistance of the mid-level provider. I reviewed and agree with the findings presented. I attest that I had a [id number] encounter with the patient on the same day, and personally performed and documented my assessment and findings in the medical record. Blood cultures positive for group d enterococcus. speciation/susceptibility pending. repeat blood cultures. Hold off on blood transfusion since O2 sats are good. Does not have overwhelming hemolysis or raging reticulocytosis. continue pain control. . Problem Qualifiers (1) Sepsis: Qualified Code: A40.8 - Other streptococcal sepsis Alejandra Spencer Nov 19, 2016 12:34 Aung Jacobo MD Nov 19, 2016 23:25
[2016-11-19 14:06] LABS: INDIRECT BILIRUBIN 1.1 MG/DL (0.0-0.8); TOTAL BILIRUBIN ADULT 1.4 MG/DL (0.2-1.0)
[2016-11-20] VITALS (8 sets, daily range): BP systolic 102–120; BP diastolic 50–69; PULSE 68–99; RESP 18–20; TEMP 97.8–98.1; O2SAT 95–97
[2016-11-20] MEDS: SODIUM CHLORIDE 0.9% FLUSH 5 ML FLUSH IVF PRN ×3 (00:11→21:13)
[2016-11-20] MEDS: diphenhydrAMINE HCL 50 MG/ML VIAL IV PUSH PRN ×3 (00:11→17:06)
[2016-11-20] MEDS: PIPERACIL-TAZO 4.5 GM PREMIX 100 ML IV SCH ×5 (00:12→23:20)
[2016-11-20] MEDS: HYDROmorphone HCL PF 1 MG/ML VIAL IV PUSH PRN ×6 (00:12→21:13)
[2016-11-20] MEDS: RESP: ALBUTEROL 2.5 MG/IPRATROPIUM 0.5 MG NEB (SCH) NEB ×3 (08:00→20:11)
[2016-11-20] MEDS: SODIUM CHLORIDE 0.9% FLUSH 5 ML FLUSH IVF SCH ×2 (09:01→21:12)
[2016-11-20 10:31] LABS: RETIC % 2.9 % (0.4-3.0)
[2016-11-20 10:36] LABS: REVIEW FLAG FINAL
[2016-11-20 10:38] LABS: AUTOMATED NEUTROPHIL # 8.4 TH/MM3 (1.8-7.7); BASOPHIL # 0.2 TH/MM3 (0-0.2); BASOPHIL % 1.1 % (0.0-2.0); EOSINOPHIL # 0.4 TH/MM3 (0-0.4); EOSINOPHIL % 2.7 % (0.0-4.0); LYMPH % 23.1 % (9.0-44.0); LYMPHOCYTE # 3.2 TH/MM3 (1.0-4.8); MEAN CELL VOLUME 83.5 FL (80.0-100.0); MEAN CORPUSCULAR HGB CONC 33.6 % (32.0-36.0); NEUT % 61.1 % (16.0-70.0); PLATELET COUNT 437 TH/MM3 (150-450); RED BLOOD COUNT 2.46 MIL/MM3 (4.00-5.30); RED CELL DISTRIBUTION WIDTH 17.9 % (11.6-17.2); WHITE BLOOD COUNT 13.8 TH/MM3 (4.0-11.0)
[2016-11-20 10:39] LABS: HEMO FLAGS DIFF FINAL
[2016-11-20 10:41] LABS: HEMATOCRIT 20.5 % (35.0-46.0)
[2016-11-20 10:56] LABS: INDIRECT BILIRUBIN 1.3 MG/DL (0.0-0.8); TOTAL BILIRUBIN ADULT 1.7 MG/DL (0.2-1.0)
--- NOTE | 2016-11-20 10:57 | PD.ONC.PN ---
Subjective Subjective Remarks Afebrile overnight. Patient states she still has pain in her chest, back, legs and arms. She has a cough productive of white phlegm. Objective Data Date Time Temp Pulse Resp B/P Pulse Ox O2 Delivery O2 Flow Rate FiO2 11/20/16 08:10 98.1 86 18 104/69 95 11/20/16 04:40 97.8 68 18 116/50 97 11/20/16 00:00 98.0 68 18 106/55 97 11/19/16 20:55 102 11/19/16 19:30 98.4 105 18 101/57 97 11/19/16 15:38 99.3 106 18 108/60 94 11/19/16 12:40 98.9 99 20 100/60 99 Result Diagram: 11/20/16 1015 11/19/16 0510 Laboratory Results Laboratory Tests Test 11/20/16 10:15 White Blood Count 13.8 TH/MM3 Red Blood Count 2.46 MIL/MM3 Hemoglobin 6.9 GM/DL Hematocrit 20.5 % Mean Corpuscular Volume 83.5 FL Mean Corpuscular Hemoglobin 28.0 PG Mean Corpuscular Hemoglobin 33.6 % Concent Red Cell Distribution Width 17.9 % Platelet Count 437 TH/MM3 Mean Platelet Volume 8.0 FL Neutrophils (%) (Auto) 61.1 % Lymphocytes (%) (Auto) 23.1 % Monocytes (%) (Auto) 12.0 % Eosinophils (%) (Auto) 2.7 % Basophils (%) (Auto) 1.1 % Neutrophils # (Auto) 8.4 TH/MM3 Lymphocytes # (Auto) 3.2 TH/MM3 Monocytes # (Auto) 1.6 TH/MM3 Eosinophils # (Auto) 0.4 TH/MM3 Basophils # (Auto) 0.2 TH/MM3 CBC Comment DIFF FINAL Differential Comment Reticulocyte Count 2.9 % Absolute Reticulocyte Count 70.5 MIL/L Culture Results Microbiology Date/Time Procedure Status Source Growth 11/18/16 06:30 Aerobic Blood Culture - Preliminary Resulted Blood Peripheral Group D Enterococcus 11/18/16 06:30 Anaerobic Blood Culture - Preliminary Resulted Group D Enterococcus 11/18/16 06:40 Aerobic Blood Culture - Preliminary Resulted Blood Peripheral Group D Enterococcus 11/18/16 06:40 Anaerobic Blood Culture - Preliminary Resulted Group D Enterococcus Administered Medications Medications (Trade) Dose Ordered Sig/Pavel Route PRN Reason Start Time Stop Time Status Last Admin Dose Admin IV Flush (NS Flush) 2 ml UNSCH PRN IVF FLUSH AFTER USING IV ACCESS 11/18/16 10:00 11/20/16 04:42 IV Flush 2 ml 2 ml BID IVF 11/18/16 10:00 11/20/16 09:01 Piperacillin Sod/ Tazobactam Sod (Zosyn 4.5 Gm Premix) 100 ml @ 200 mls/hr Q6H IV 11/18/16 11:00 11/20/16 10:23 Diphenhydramine HCl (Benadryl Inj) 6.25 mg Q6H PRN IV PUSH itching/sleep 11/19/16 14:30 11/20/16 09:02 Hydromorphone HCl (Dilaudid Pf Inj) 0.5 mg Q4H PRN IV PUSH pain >5 11/19/16 12:30 11/20/16 09:02 Objective Remarks GENERAL: Young woman upright in room in nad. SKIN: Warm and dry. HEAD: Normocephalic. EYES: No injection or drainage. NECK: Supple, trachea midline. CARDIOVASCULAR: Regular rate and rhythm RESPIRATORY: Breath sounds equal bilaterally. No accessory muscle use. GASTROINTESTINAL: Abdomen soft, non-tender, nondistended. EXTREMITIES: No cyanosis NEUROLOGICAL: No obvious focal deficit. Awake, alert, and oriented x3. Assessment/Plan Problem List: (1) Sickle cell anemia with crisis Status: Acute Plan: --no evidence of acute chest syndrome, --chest x-ray does not show any acute pathology. --baseline hemoglobin is in the low seven. would recommend avoiding over transfusion in this patient. --Check daily CBC. LDH, retic count and total bilirubin --continue incentive spirometry and folic acid 1 milligram p.o. daily. (2) Sepsis Status: Acute Plan: --on Zosyn --BC + enterococcus --Can switch to Azithromycin if remains afebrile. --CXR WNL --U/A WNL (3) Iron overload due to repeated red blood cell transfusions Status: Acute Plan: - Start EXjade once pain crisis has resolved Assessment 26-year-old female with sickle cell disease admitted with chest tightness and generalized pain Plan 1. continue supportive care with fluids, antibiotics, pain management 2. no transfusion today. monitor CBC Attending Statement The exam, history, and the medical decision-making described in the above note were completed with the assistance of the mid-level provider. I reviewed and agree with the findings presented. I attest that I had a [id number] encounter with the patient on the same day, and personally performed and documented my assessment and findings in the medical record. continues to c/o pain. Hb stable/O2 sats high 90s on room air. continue pain control await final micro results hold pRBC transfusion Problem Qualifiers (1) Sepsis: Qualified Code: A40.8 - Other streptococcal sepsis Alejandra Spencer Nov 20, 2016 10:57 Aung Jacobo MD Nov 20, 2016 23:12
--- NOTE | 2016-11-20 12:13 | HHI.PR ---
Subjective Remarks patient comfortable b- pain controlled with current regimen good po, no nausea or vomiting Objective Vitals Vital Signs Date Time Temp Pulse Resp B/P Pulse Ox O2 Delivery O2 Flow Rate FiO2 11/20/16 11:10 98.1 83 18 102/56 96 11/20/16 08:10 98.1 86 18 104/69 95 11/20/16 08:00 99 11/20/16 04:40 97.8 68 18 116/50 97 11/20/16 00:00 98.0 68 18 106/55 97 11/19/16 20:55 102 11/19/16 19:30 98.4 105 18 101/57 97 11/19/16 15:38 99.3 106 18 108/60 94 11/19/16 12:40 98.9 99 20 100/60 99 Result Diagram: 11/20/16 1015 11/19/16 0510 Imaging Last Impressions Chest X-Ray 11/18/16 0515 Signed Impressions: Service Date/Time: Friday, November 18, 2016 05:50 - CONCLUSION: No acute disease. Rebel Cotto MD Objective Remarks awake and alert, Not in distress anicteric lungs clear regular rhythm abdomen soft, nontender extremities no edema neuro exam- unremarkable A/P Problem List: (1) Chest pain ICD Code: R07.9 Status: Acute (2) Sickle cell anemia with crisis ICD Code: D57.00 Status: Acute (3) Hypokalemia ICD Code: E87.6 Status: Acute (4) Pneumonia ICD Code: J18.9 Status: Acute (5) CHF (congestive heart failure) ICD Code: I50.9 Status: Acute (6) Cardiomyopathy ICD Code: I42.9 Status: Chronic (7) HCAP (healthcare-associated pneumonia) ICD Code: J18.9 Status: Acute Assessment and Plan Patient is a 26-year-old female with primary medical history of sickle cell anemia, CHF, asthma who came into the hospital for complaints of severe right-sided chest pain described as tightening of the chest with some congestion and generalized body pain. She states she's been having chest tightness and pain about 2 days ago, described as tightness sharp intermittent pain, aggravated by coughing, relieved by her Lortab's, rest and repositioning. She thought that it can go away but unfortunately states it has been worsening that she came in to seek further evaluation. Patient reports that she has been coughing in the past 2 days also, with mucous expectoration described as green yellow small amount, accompanied by chills without any fever. Recent hospital admission 10/26/16 2 10/31/16 for sickle cell crisis. Sickle cell crisis Sickle cell anemia T low grade. On Zosyn H and H baseline- no transfusion Dr. Jacobo - Hematology ff along with us Continue IV Dilaudid . and prn IV Benadryl regimen Group D Enterococcus Sepsis= T and WBC trending down Ff final sensitivity continue on Zosyn reinforced incentive spirometry-- again Hypokalemia - corrected HTN- controlled Cardiomyopathy- not in failure - Continue home meds metoprolol, lisinopril - Monitor BP trend DVT - encourage to ambulate around room Problem Qualifiers (1) Chest pain: Qualified Code: R07.9 - Chest pain, unspecified type John Galarza MD Nov 20, 2016 12:13 John Galarza MD Nov 20, 2016 12:13
[2016-11-21 00:22] VITALS: BP 113/72; PULSE 90; RESP 18; TEMP 98.1; O2SAT 95
[2016-11-21] MEDS: SODIUM CHLORIDE 0.9% FLUSH 5 ML FLUSH IVF PRN ×3 (01:21→13:50)
[2016-11-21] MEDS: diphenhydrAMINE HCL 50 MG/ML VIAL IV PUSH PRN ×3 (01:22→17:37)
[2016-11-21] MEDS: HYDROmorphone HCL PF 1 MG/ML VIAL IV PUSH PRN ×6 (01:22→21:39)
[2016-11-21 05:15] VITALS: BP 105/82; PULSE 83; RESP 18; TEMP 98; O2SAT 95
[2016-11-21] MEDS: PIPERACIL-TAZO 4.5 GM PREMIX 100 ML IV SCH ×4 (05:45→23:38)
[2016-11-21] MEDS: RESP: ALBUTEROL 2.5 MG/IPRATROPIUM 0.5 MG NEB (SCH) NEB ×3 (07:48→21:01)
[2016-11-21 07:56] VITALS: BP 106/60; PULSE 85; RESP 18; TEMP 98.1; O2SAT 94
[2016-11-21 08:35] LABS: RETIC % 3.8 % (0.4-3.0); REVIEW FLAG FINAL
[2016-11-21 08:39] LABS: AUTOMATED NEUTROPHIL # 6.9 TH/MM3 (1.8-7.7); BASOPHIL # 0.1 TH/MM3 (0-0.2); BASOPHIL % 1.1 % (0.0-2.0); EOSINOPHIL # 0.6 TH/MM3 (0-0.4); EOSINOPHIL % 5.5 % (0.0-4.0); LYMPH % 22.3 % (9.0-44.0); LYMPHOCYTE # 2.6 TH/MM3 (1.0-4.8); MEAN CELL VOLUME 83.3 FL (80.0-100.0); MEAN CORPUSCULAR HEMOGLOBIN 28.2 PG (27.0-34.0); MEAN CORPUSCULAR HGB CONC 33.9 % (32.0-36.0); MONO % 11.4 % (0.0-8.0); NEUT % 59.7 % (16.0-70.0); PLATELET COUNT 437 TH/MM3 (150-450); RED BLOOD COUNT 2.25 MIL/MM3 (4.00-5.30); RED CELL DISTRIBUTION WIDTH 18.1 % (11.6-17.2); WHITE BLOOD COUNT 11.6 TH/MM3 (4.0-11.0)
[2016-11-21 08:48] LABS: HEMO FLAGS DIFF FINAL
[2016-11-21 08:54] LABS: HEMATOCRIT 18.8 % (35.0-46.0)
[2016-11-21] MEDS: SODIUM CHLORIDE 0.9% FLUSH 5 ML FLUSH IVF SCH ×2 (09:00→21:00)
[2016-11-21 09:03] LABS: TOTAL BILIRUBIN ADULT 1.3 MG/DL (0.2-1.0)
[2016-11-21 11:52] VITALS: BP 111/60; PULSE 97; RESP 17; TEMP 98; O2SAT 94
--- NOTE | 2016-11-21 12:16 | PD.ONC.PN ---
Subjective Subjective Remarks Afebrile overnight. Patient resting comfortably. She continues to have pain in her chest and back. Objective Data Date Time Temp Pulse Resp B/P Pulse Ox O2 Delivery O2 Flow Rate FiO2 11/21/16 11:52 98.0 97 17 111/60 94 11/21/16 07:56 98.1 85 18 106/60 94 11/21/16 05:15 98.0 83 18 105/82 95 11/21/16 00:22 98.1 90 18 113/72 95 11/20/16 20:30 98.0 73 19 120/69 95 11/20/16 20:15 72 11/20/16 16:45 98.1 78 20 111/69 95 Result Diagram: 11/21/16 0814 11/19/16 0510 Laboratory Results Laboratory Tests Test 11/21/16 11/21/16 08:14 08:17 White Blood Count 11.6 TH/MM3 Red Blood Count 2.25 MIL/MM3 Hemoglobin 6.4 GM/DL Hematocrit 18.8 % Mean Corpuscular Volume 83.3 FL Mean Corpuscular Hemoglobin 28.2 PG Mean Corpuscular Hemoglobin 33.9 % Concent Red Cell Distribution Width 18.1 % Platelet Count 437 TH/MM3 Mean Platelet Volume 7.8 FL Neutrophils (%) (Auto) 59.7 % Lymphocytes (%) (Auto) 22.3 % Monocytes (%) (Auto) 11.4 % Eosinophils (%) (Auto) 5.5 % Basophils (%) (Auto) 1.1 % Neutrophils # (Auto) 6.9 TH/MM3 Lymphocytes # (Auto) 2.6 TH/MM3 Monocytes # (Auto) 1.3 TH/MM3 Eosinophils # (Auto) 0.6 TH/MM3 Basophils # (Auto) 0.1 TH/MM3 CBC Comment DIFF FINAL Differential Comment Reticulocyte Count 3.8 % Absolute Reticulocyte Count 84.2 MIL/L Total Bilirubin 1.3 MG/DL Direct Bilirubin 0.3 MG/DL Indirect Bilirubin 1.0 MG/DL Aspartate Amino Transf 33 U/L (AST/SGOT) Alanine Aminotransferase 19 U/L (ALT/SGPT) Alkaline Phosphatase 63 U/L Lactate Dehydrogenase 238 U/L Total Protein 7.0 GM/DL Albumin 3.1 GM/DL Culture Results Microbiology Date/Time Procedure Status Source Growth 11/20/16 13:50 Aerobic Blood Culture - Preliminary Resulted Blood Peripheral NO GROWTH IN 1 DAY 11/20/16 13:50 Anaerobic Blood Culture - Preliminary Resulted Blood Peripheral NO GROWTH IN 1 DAY 11/20/16 13:59 Aerobic Blood Culture - Preliminary Resulted Blood Peripheral NO GROWTH IN 1 DAY 11/20/16 13:59 Anaerobic Blood Culture - Final Resulted Blood Peripheral QNS - SEE AEROBE REPORT Administered Medications Medications (Trade) Dose Ordered Sig/Pavel Route PRN Reason Start Time Stop Time Status Last Admin Dose Admin IV Flush (NS Flush) 2 ml UNSCH PRN IVF FLUSH AFTER USING IV ACCESS 11/18/16 10:00 11/21/16 05:45 IV Flush 2 ml 2 ml BID IVF 11/18/16 10:00 11/21/16 09:00 Piperacillin Sod/ Tazobactam Sod (Zosyn 4.5 Gm Premix) 100 ml @ 200 mls/hr Q6H IV 11/18/16 11:00 11/21/16 09:51 Diphenhydramine HCl (Benadryl Inj) 6.25 mg Q6H PRN IV PUSH itching/sleep 11/19/16 14:30 11/21/16 10:01 Hydromorphone HCl (Dilaudid Pf Inj) 0.5 mg Q4H PRN IV PUSH pain >5 11/19/16 12:30 11/21/16 09:51 Objective Remarks GENERAL: Young female, sitting up in bed, watching tv SKIN: Warm and dry. HEAD: Normocephalic. EYES: No injection or drainage. NECK: Supple, trachea midline. CARDIOVASCULAR: Regular rate and rhythm RESPIRATORY: Breath sounds equal bilaterally. No accessory muscle use. GASTROINTESTINAL: Abdomen soft, non-tender, nondistended. EXTREMITIES: No cyanosis NEUROLOGICAL: No obvious focal deficit. Awake, alert, and oriented x3. Assessment/Plan Problem List: (1) Sickle cell anemia with crisis Status: Acute Plan: --no evidence of acute chest syndrome, --chest x-ray does not show any acute pathology. --baseline hemoglobin is in the low seven. would recommend avoiding over transfusion in this patient. --Check daily CBC. LDH, retic count and total bilirubin --continue incentive spirometry and folic acid 1 milligram p.o. daily. (2) Sepsis Status: Acute Plan: --on Zosyn --BC + enterococcus --Can switch to Azithromycin if remains afebrile. --CXR WNL --U/A WNL (3) Iron overload due to repeated red blood cell transfusions Status: Acute Plan: - Start EXjade once pain crisis has resolved Assessment 26-year-old female with sickle cell disease admitted with chest tightness and generalized pain Plan 1. BC + enterococcus. +pansensitive thus far. continue abx 2. hgb=6.4. she seems to be tolerating this hemoglobin, i.e O2 Saturation is WNL, no dizziness. would avoid transfusion today. check CBC tomorrow Attending Statement The exam, history, and the medical decision-making described in the above note were completed with the assistance of the mid-level provider. I reviewed and agree with the findings presented. I attest that I had a [id number] encounter with the patient on the same day, and personally performed and documented my assessment and findings in the medical record. Lab findings do not corroborate with the level of pain. No massive hemolysis. LDH normal now. oxygenating well. wean to oral pain meds Baseline Hb is mid 6 to low 7's Transfuse 1 unit of pRBC supportive care over the weekend. Repeat blood cultures negative Enterococcus feacalis pansensitive convert to oral abx in am if blood cx remains negative Anticipate d/c over the next 24-48 hours--if stable discussed with RN Problem Qualifiers (1) Sepsis: Qualified Code: A40.8 - Other streptococcal sepsis Alejandra Spencer Nov 21, 2016 12:16 Aung Jacobo MD Nov 21, 2016 22:29
[2016-11-21 17:15] VITALS: BP 122/95; PULSE 73; RESP 16; TEMP 97; O2SAT 100
--- NOTE | 2016-11-21 17:18 | HHI.PR ---
Subjective Remarks appears more comfortable, smiled very comfortable with current regimen- "I'm dioing good," told her that I will keep on the same regimen Objective Vitals Vital Signs Date Time Temp Pulse Resp B/P Pulse Ox O2 Delivery O2 Flow Rate FiO2 11/21/16 11:52 98.0 97 17 111/60 94 11/21/16 07:56 98.1 85 18 106/60 94 11/21/16 05:15 98.0 83 18 105/82 95 11/21/16 00:22 98.1 90 18 113/72 95 11/20/16 20:30 98.0 73 19 120/69 95 11/20/16 20:15 72 Result Diagram: 11/21/1614 11/19/1610 Imaging Last Impressions Chest X-Ray 11/18/1615 Signed Impressions: Service Date/Time: Friday, November 18, 2016 05:50 - CONCLUSION: No acute disease. Rebel Cotto MD Objective Remarks awake and alert,NAD anicteric lungs clear regular rhythm abdomen soft, nontender extremities no edema neuro exam- unremarkable A/P Problem List: (1) Chest pain ICD Code: R07.9 Status: Acute (2) Sickle cell anemia with crisis ICD Code: D57.00 Status: Acute (3) Hypokalemia ICD Code: E87.6 Status: Acute (4) Pneumonia ICD Code: J18.9 Status: Acute (5) CHF (congestive heart failure) ICD Code: I50.9 Status: Acute (6) Cardiomyopathy ICD Code: I42.9 Status: Chronic (7) HCAP (healthcare-associated pneumonia) ICD Code: J18.9 Status: Acute Assessment and Plan Patient is a 26-year-old female with primary medical history of sickle cell anemia, CHF, asthma who came into the hospital for complaints of severe right-sided chest pain described as tightening of the chest with some congestion and generalized body pain. She states she's been having chest tightness and pain about 2 days ago, described as tightness sharp intermittent pain, aggravated by coughing, relieved by her Lortab's, rest and repositioning. She thought that it can go away but unfortunately states it has been worsening that she came in to seek further evaluation. Patient reports that she has been coughing in the past 2 days also, with mucous expectoration described as green yellow small amount, accompanied by chills without any fever. Recent hospital admission 10/26/16 2 10/31/16 for sickle cell crisis. Sickle cell crisis Sickle cell anemia T down. On Zosyn H and H baseline- no transfusion Dr. Jacobo - Hematology ff along with us Continue IV Dilaudid . and prn IV Benadryl regimen Group D Enterococcus Sepsis= T and WBC trending down Ff final sensitivity continue on Zosyn reinforced incentive spirometry-- again Hypokalemia - corrected HTN- controlled Cardiomyopathy- not in failure - Continue home meds metoprolol, lisinopril - Monitor BP trend DVT - encourage to ambulate around room Problem Qualifiers (1) Chest pain: Qualified Code: R07.9 - Chest pain, unspecified type John Galarza MD Nov 21, 2016 17:18
--- NOTE | 2016-11-21 18:15 | HHI.PR ---
Objective Vitals Vital Signs Date Time Temp Pulse Resp B/P Pulse Ox O2 Delivery O2 Flow Rate FiO2 11/21/16 17:15 97.0 73 16 122/95 100 11/21/16 11:52 98.0 97 17 111/60 94 11/21/16 07:56 98.1 85 18 106/60 94 11/21/16 05:15 98.0 83 18 105/82 95 11/21/16 00:22 98.1 90 18 113/72 95 11/20/16 20:30 98.0 73 19 120/69 95 11/20/16 20:15 72 Result Diagram: 11/21/16 0814 11/19/16 0510 Imaging John Galarza MD Nov 21, 2016 18:15 Imaging Last Impressions Chest X-Ray 11/18/16 0515 Signed Impressions: Service Date/Time: Friday, November 18, 2016 05:50 - CONCLUSION: No acute disease. Rebel Cotto MD Objective Remarks awake and alert,NAD anicteric lungs clear regular rhythm abdomen soft, nontender extremities no edema neuro exam- unremarkable A/P Problem List: (1) Chest pain ICD Code: R07.9 Status: Acute (2) Sickle cell anemia with crisis ICD Code: D57.00 Status: Acute (3) Hypokalemia ICD Code: E87.6 Status: Acute (4) Pneumonia ICD Code: J18.9 Status: Acute (5) CHF (congestive heart failure) ICD Code: I50.9 Status: Acute (6) Cardiomyopathy ICD Code: I42.9 Status: Chronic (7) HCAP (healthcare-associated pneumonia) ICD Code: J18.9 Status: Acute Assessment and Plan Patient is a 26-year-old female with primary medical history of sickle cell anemia, CHF, asthma who came into the hospital for complaints of severe right-sided chest pain described as tightening of the chest with some congestion and generalized body pain. She states she's been having chest tightness and pain about 2 days ago, described as tightness sharp intermittent pain, aggravated by coughing, relieved by her Lortab's, rest and repositioning. She thought that it can go away but unfortunately states it has been worsening that she came in to seek further evaluation. Patient reports that she has been coughing in the past 2 days also, with mucous expectoration described as green yellow small amount, accompanied by chills without any fever. Recent hospital admission 10/26/16 2 10/31/16 for sickle cell crisis. Sickle cell crisis Sickle cell anemia T down. On Zosyn H and H baseline- no transfusion Dr. Jacobo - Hematology ff along with us Continue IV Dilaudid . and prn IV Benadryl regimen Group D Enterococcus Sepsis= T and WBC trending down Ff final sensitivity continue on Zosyn reinforced incentive spirometry-- again Hypokalemia - corrected HTN- controlled Cardiomyopathy- not in failure - Continue home meds metoprolol, lisinopril - Monitor BP trend DVT - encourage to ambulate around room Problem Qualifiers (1) Chest pain: Qualified Code: R07.9 - Chest pain, unspecified type John Galarza MD Nov 21, 2016 18:15
[2016-11-21 20:00] VITALS: BP 115/65; PULSE 73; RESP 17; TEMP 98.4; O2SAT 98
[2016-11-21] MEDS: ZOLPIDEM TARTRATE 5 MG TAB PO PRN (23:35)
[2016-11-22] VITALS (7 sets, daily range): BP systolic 108–124; BP diastolic 62–84; PULSE 67–77; RESP 16–20; TEMP 96.3–98; O2SAT 98–100
[2016-11-22] MEDS: diphenhydrAMINE HCL 50 MG/ML VIAL IV PUSH PRN ×3 (01:38→17:41)
[2016-11-22] MEDS: HYDROmorphone HCL PF 1 MG/ML VIAL IV PUSH PRN ×6 (01:39→21:46)
[2016-11-22] MEDS ORDERED: diphenhydrAMINE HCL 25 MG CAP PO PRN (01:45)
[2016-11-22] MEDS ORDERED: ACETAMINOPHEN 325 MG TAB PO PRN (01:45)
[2016-11-22] MEDS: PIPERACIL-TAZO 4.5 GM PREMIX 100 ML IV SCH ×4 (05:40→23:13)
--- NOTE | 2016-11-22 07:02 | HHI.PR ---
Subjective Remarks Labs pending Patient is sleepy. No n/v/d/c. Denies fever or chills. pain is fairly controlled by meds. Objective Vitals Vital Signs Date Time Temp Pulse Resp B/P Pulse Ox O2 Delivery O2 Flow Rate FiO2 11/22/16 02:42 20 11/22/16 02:42 18 11/22/16 02:40 97.1 72 19 111/62 98 11/22/16 02:28 96.7 68 20 111/67 100 11/22/16 00:00 97.5 77 17 108/62 100 11/21/16 20:00 98.4 73 17 115/65 98 11/21/16 17:15 97.0 73 16 122/95 100 11/21/16 11:52 98.0 97 17 111/60 94 11/21/16 07:56 98.1 85 18 106/60 94 Result Diagram: 11/21/16 0814 11/19/16 0510 Imaging Last Impressions Chest X-Ray 11/18/16 0515 Signed Impressions: Service Date/Time: Friday, November 18, 2016 05:50 - CONCLUSION: No acute disease. Rebel Cotto MD Objective Remarks GENERAL: 23 to F well nourished, well developed patient, in nad. SKIN: Warm and dry. HEAD: Atraumatic. Normocephalic. EYES: Pupils equal and round. No scleral icterus. No injection or drainage. ENT: No nasal bleeding or discharge. Mucous membranes pink and moist. NECK: Trachea midline. No JVD. CARDIOVASCULAR: Regular rate and rhythm. RESPIRATORY: No accessory muscle use. Clear to auscultation. Breath sounds equal bilaterally. GASTROINTESTINAL: Abdomen soft, non-tender, nondistended. Hepatic and splenic margins not palpable. MUSCULOSKELETAL: Extremities without clubbing, cyanosis, or edema. No obvious deformities. NEUROLOGICAL: Awake and alert. No obvious cranial nerve deficits. Motor grossly within normal limits. Five out of 5 muscle strength in the arms and legs. Normal speech. PSYCHIATRIC: Appropriate mood and affect; insight and judgment normal. A/P Problem List: (1) Chest pain ICD Code: R07.9 Status: Acute (2) Sickle cell anemia with crisis ICD Code: D57.00 Status: Acute (3) Hypokalemia ICD Code: E87.6 Status: Acute (4) Pneumonia ICD Code: J18.9 Status: Acute (5) CHF (congestive heart failure) ICD Code: I50.9 Status: Acute (6) Cardiomyopathy ICD Code: I42.9 Status: Chronic (7) HCAP (healthcare-associated pneumonia) ICD Code: J18.9 Status: Acute Assessment and Plan Patient is a 26-year-old female with primary medical history of sickle cell anemia, CHF, asthma who came into the hospital for complaints of severe right-sided chest pain described as tightening of the chest with some congestion and generalized body pain. She states she's been having chest tightness and pain about 2 days ago, described as tightness sharp intermittent pain, aggravated by coughing, relieved by her Lortab's, rest and repositioning. She thought that it can go away but unfortunately states it has been worsening that she came in to seek further evaluation. Patient reports that she has been coughing in the past 2 days also, with mucous expectoration described as green yellow small amount, accompanied by chills without any fever. Recent hospital admission 10/26/16 2 10/31/16 for sickle cell crisis. Sickle cell crisis Sickle cell anemia Temp down. On Zosyn S/P 1 U PRBC 24. H/ H baseline- transfuse when indicate by hem/onc Dr. Jacobo - Hematology following along with us Continue IV Dilaudid . and prn IV Benadryl regimen Group D Enterococcus Sepsis Temp and WBC trending down Follow final sensitivity Continue on Zosyn Reinforced incentive spirometry-- again Hypokalemia - corrected HTN- controlled Cardiomyopathy- not in failure Continue home meds metoprolol, lisinopril Monitor BP trend DVT - encourage to ambulate around room Discussed with patient nurse Discharge home when improved and cleared by Dr Jacobo hem/onc Problem Qualifiers (1) Chest pain: Qualified Code: R07.9 - Chest pain, unspecified type Dipika Heard MD Nov 22, 2016 07:02
[2016-11-22] MEDS: RESP: ALBUTEROL 2.5 MG/IPRATROPIUM 0.5 MG NEB (SCH) NEB ×2 (08:00→13:16)
[2016-11-22 08:15] LABS: AUTOMATED NEUTROPHIL # 4.8 TH/MM3 (1.8-7.7); BASOPHIL # 0.1 TH/MM3 (0-0.2); BASOPHIL % 1.1 % (0.0-2.0); EOSINOPHIL # 0.6 TH/MM3 (0-0.4); EOSINOPHIL % 5.9 % (0.0-4.0); HEMATOCRIT 21.9 % (35.0-46.0); HEMO FLAGS DIFF FINAL; LYMPH % 33.4 % (9.0-44.0); LYMPHOCYTE # 3.3 TH/MM3 (1.0-4.8); MEAN CELL VOLUME 83.4 FL (80.0-100.0); MEAN CORPUSCULAR HEMOGLOBIN 29.2 PG (27.0-34.0); MONO % 11.6 % (0.0-8.0); PLATELET COUNT 497 TH/MM3 (150-450); RED BLOOD COUNT 2.62 MIL/MM3 (4.00-5.30)
[2016-11-22 08:20] LABS: RETIC % 4.6 % (0.4-3.0)
[2016-11-22 08:21] LABS: REVIEW FLAG FINAL
[2016-11-22 08:51] LABS: INDIRECT BILIRUBIN 0.9 MG/DL (0.0-0.8); TOTAL BILIRUBIN ADULT 1.2 MG/DL (0.2-1.0)
[2016-11-22] MEDS ORDERED: SODIUM CHLOR 0.9% IV ONE (09:00)
[2016-11-22] MEDS: SODIUM CHLORIDE 0.9% FLUSH 5 ML FLUSH IVF SCH ×2 (09:00→21:00)
[2016-11-22] MEDS ORDERED: DEFEROXAMINE IV ONE (09:00)
--- NOTE | 2016-11-22 12:09 | PD.ONC.PN ---
Subjective Subjective Remarks Afebrile overnight. Her pain is unchanged. She is concerned that she will be discharged prior to feeling ready. Objective Data Date Time Temp Pulse Resp B/P Pulse Ox O2 Delivery O2 Flow Rate FiO2 11/22/16 08:00 96.3 69 16 116/76 99 11/22/16 06:20 20 11/22/16 02:42 20 11/22/16 02:40 97.1 72 19 111/62 98 11/22/16 02:28 96.7 68 20 111/67 100 11/22/16 00:00 97.5 77 17 108/62 100 11/21/16 20:00 98.4 73 17 115/65 98 11/21/16 17:15 97.0 73 16 122/95 100 Result Diagram: 11/22/16 0743 11/19/16 0510 Laboratory Results Laboratory Tests Test 11/21/16 11/22/16 23:25 07:43 Blood Type AB POSITIVE Antibody Screen NEGATIVE Crossmatch Leukocyte-Reduced Red Blood Cells Blood Bank Comment White Blood Count 10.0 TH/MM3 Red Blood Count 2.62 MIL/MM3 Hemoglobin 7.6 GM/DL Hematocrit 21.9 % Mean Corpuscular Volume 83.4 FL Mean Corpuscular Hemoglobin 29.2 PG Mean Corpuscular Hemoglobin 35.0 % Concent Red Cell Distribution Width 17.0 % Platelet Count 497 TH/MM3 Mean Platelet Volume 8.1 FL Neutrophils (%) (Auto) 48.0 % Lymphocytes (%) (Auto) 33.4 % Monocytes (%) (Auto) 11.6 % Eosinophils (%) (Auto) 5.9 % Basophils (%) (Auto) 1.1 % Neutrophils # (Auto) 4.8 TH/MM3 Lymphocytes # (Auto) 3.3 TH/MM3 Monocytes # (Auto) 1.2 TH/MM3 Eosinophils # (Auto) 0.6 TH/MM3 Basophils # (Auto) 0.1 TH/MM3 CBC Comment DIFF FINAL Differential Comment Reticulocyte Count 4.6 % Absolute Reticulocyte Count 120.5 MIL/L Total Bilirubin 1.2 MG/DL Direct Bilirubin 0.3 MG/DL Indirect Bilirubin 0.9 MG/DL Aspartate Amino Transf 44 U/L (AST/SGOT) Alanine Aminotransferase 22 U/L (ALT/SGPT) Alkaline Phosphatase 67 U/L Lactate Dehydrogenase 242 U/L Total Protein 7.3 GM/DL Albumin 3.4 GM/DL Culture Results Microbiology Date/Time Procedure Status Source Growth 11/20/16 13:50 Aerobic Blood Culture - Preliminary Resulted Blood Peripheral NO GROWTH IN 2 DAYS 11/20/16 13:50 Anaerobic Blood Culture - Preliminary Resulted Blood Peripheral NO GROWTH IN 2 DAYS 11/20/16 13:59 Aerobic Blood Culture - Preliminary Resulted Blood Peripheral NO GROWTH IN 2 DAYS 11/20/16 13:59 Anaerobic Blood Culture - Final Resulted Blood Peripheral QNS - SEE AEROBE REPORT Administered Medications Medications (Trade) Dose Ordered Sig/Pavel Route PRN Reason Start Time Stop Time Status Last Admin Dose Admin IV Flush (NS Flush) 2 ml UNSCH PRN IVF FLUSH AFTER USING IV ACCESS 11/18/16 10:00 11/21/16 13:50 IV Flush 2 ml 2 ml BID IVF 11/18/16 10:00 11/21/16 21:00 Piperacillin Sod/ Tazobactam Sod (Zosyn 4.5 Gm Premix) 100 ml @ 200 mls/hr Q6H IV 11/18/16 11:00 11/22/16 11:00 Diphenhydramine HCl (Benadryl Inj) 6.25 mg Q6H PRN IV PUSH itching/sleep 11/19/16 14:30 11/22/16 09:46 Hydromorphone HCl (Dilaudid Pf Inj) 0.5 mg Q4H PRN IV PUSH pain >5 11/19/16 12:30 11/22/16 09:46 Zolpidem Tartrate (Ambien) 5 mg HS PRN PO insomnia 11/21/16 23:15 11/21/16 23:35 Objective Remarks GENERAL: Young female, lying in bed asleep. SKIN: Warm and dry. HEAD: Normocephalic. EYES: No injection or drainage. NECK: Supple, trachea midline. CARDIOVASCULAR: Regular rate and rhythm RESPIRATORY: Breath sounds equal bilaterally. No accessory muscle use. GASTROINTESTINAL: Abdomen soft, non-tender, nondistended. EXTREMITIES: No cyanosis NEUROLOGICAL: No obvious focal deficit. Awake, alert, and oriented x3. Assessment/Plan Assessment 26-year-old female with sickle cell disease admitted with chest tightness and generalized pain Plan Her baseline Hgb is in the mid 6's to low 7's. She rec'd one unit of packed RBC' s yesterday. She is receiving a one time dose of deferoxamine.No significant hemolysis. LDH normal. Oxygenating well. We will start her back on Exjade once ready for discharge. Attending Statement The exam, history, and the medical decision-making described in the above note were completed with the assistance of the mid-level provider. I reviewed and agree with the findings presented. I attest that I had a [id number] encounter with the patient on the same day, and personally performed and documented my assessment and findings in the medical record. very child like. She feels she is getting better and wants to continue the dilaudid .5 mg iv Q 4 hours. I suspect this lasts only 1-2 hours. I talked to her about transitioning to oral medications soon. Sepsis noted and if desired could use ampicillin in place of piperacillin. once she is discharged she should resume exjade given her markedly elevated ferritin. Kaitlynn Mathews Nov 22, 2016 12:09 Per Tenorio MD Nov 22, 2016 15:23 generalized pain Plan Her baseline Hgb is in the low 7's. She rec'd one unit of packed RBC's yesterday. Problem Qualifiers (1) Sepsis: Qualified Code: A40.8 - Other streptococcal sepsis Kaitlynn Mathews Nov 22, 2016 12:09
[2016-11-22] MEDS: ZOLPIDEM TARTRATE 5 MG TAB PO PRN (21:46)
[2016-11-23] VITALS: BP 113/76; PULSE 74; RESP 17; TEMP 97; O2SAT 98
[2016-11-23] MEDS: diphenhydrAMINE HCL 50 MG/ML VIAL IV PUSH PRN ×3 (01:46→17:36)
[2016-11-23] MEDS: HYDROmorphone HCL PF 1 MG/ML VIAL IV PUSH PRN ×6 (01:46→21:47)
[2016-11-23 04:00] VITALS: BP 106/70; PULSE 69; RESP 18; TEMP 97.3; O2SAT 99
[2016-11-23] MEDS: PIPERACIL-TAZO 4.5 GM PREMIX 100 ML IV SCH (05:47)
[2016-11-23 07:48] LABS: AUTOMATED NEUTROPHIL # 5.7 TH/MM3 (1.8-7.7); BASOPHIL # 0.2 TH/MM3 (0-0.2); BASOPHIL % 1.7 % (0.0-2.0); EOSINOPHIL # 0.4 TH/MM3 (0-0.4); EOSINOPHIL % 3.8 % (0.0-4.0); HEMATOCRIT 23.7 % (35.0-46.0); HEMO FLAGS DIFF FINAL; LYMPH % 32.6 % (9.0-44.0); LYMPHOCYTE # 3.5 TH/MM3 (1.0-4.8); MEAN CELL VOLUME 84.3 FL (80.0-100.0); MEAN CORPUSCULAR HGB CONC 34.3 % (32.0-36.0); MONO % 9.3 % (0.0-8.0); NEUT % 52.6 % (16.0-70.0); PLATELET COUNT 521 TH/MM3 (150-450); RED BLOOD COUNT 2.81 MIL/MM3 (4.00-5.30); RED CELL DISTRIBUTION WIDTH 17.8 % (11.6-17.2); WHITE BLOOD COUNT 10.8 TH/MM3 (4.0-11.0)
[2016-11-23 07:50] VITALS: BP 139/83; PULSE 68; RESP 20; TEMP 98.2; O2SAT 98
--- NOTE | 2016-11-23 07:57 | HHI.PR ---
Subjective Remarks In bed. Pain level same. No fevers or chills. She is not coughing. No n/v/d/c. Denies sob. She say sshe is not ready to go home. Objective Vitals Vital Signs Date Time Temp Pulse Resp B/P Pulse Ox O2 Delivery O2 Flow Rate FiO2 11/23/16 07:06 19 11/23/16 04:00 97.3 69 18 106/70 99 11/23/16 00:00 97.0 74 17 113/76 98 11/22/16 20:00 98.0 73 19 124/84 100 11/22/16 16:00 97.7 70 16 120/84 98 11/22/16 12:00 96.7 67 16 119/76 99 11/22/16 08:00 96.3 69 16 116/76 99 I/O 11/22/16 11/22/16 11/22/16 11/23/16 11/23/16 11/23/16 07:00 15:00 23:00 07:00 15:00 23:00 Intake Total 960 ml 720 ml 480 ml Balance 960 ml 720 ml 480 ml Intake Oral 960 ml 720 ml 480 ml # Voids 3 2 2 # Bowel Movements 1 0 Result Diagram: 11/23/16 0556 11/19/16 0510 Imaging Last Impressions Chest X-Ray 11/18/16 0515 Signed Impressions: Service Date/Time: Friday, November 18, 2016 05:50 - CONCLUSION: No acute disease. Rebel Cotto MD Objective Remarks GENERAL: 23 to F well nourished, well developed patient, in nad. SKIN: Warm and dry. HEAD: Atraumatic. Normocephalic. EYES: Pupils equal and round. No scleral icterus. No injection or drainage. ENT: No nasal bleeding or discharge. Mucous membranes pink and moist. NECK: Trachea midline. No JVD. CARDIOVASCULAR: Regular rate and rhythm. RESPIRATORY: No accessory muscle use. Clear to auscultation. Breath sounds equal bilaterally. GASTROINTESTINAL: Abdomen soft, non-tender, nondistended. Hepatic and splenic margins not palpable. MUSCULOSKELETAL: Extremities without clubbing, cyanosis, or edema. No obvious deformities. NEUROLOGICAL: Awake and alert. No obvious cranial nerve deficits. Motor grossly within normal limits. Five out of 5 muscle strength in the arms and legs. Normal speech. PSYCHIATRIC: Appropriate mood and affect; insight and judgment normal. A/P Problem List: (1) Chest pain ICD Code: R07.9 Status: Acute (2) Sickle cell anemia with crisis ICD Code: D57.00 Status: Acute (3) Hypokalemia ICD Code: E87.6 Status: Acute (4) Pneumonia ICD Code: J18.9 Status: Acute (5) CHF (congestive heart failure) ICD Code: I50.9 Status: Acute (6) Cardiomyopathy ICD Code: I42.9 Status: Chronic (7) HCAP (healthcare-associated pneumonia) ICD Code: J18.9 Status: Acute Assessment and Plan Patient is a 26-year-old female with primary medical history of sickle cell anemia, CHF, asthma who came into the hospital for complaints of severe right-sided chest pain described as tightening of the chest with some congestion and generalized body pain. She states she's been having chest tightness and pain about 2 days ago, described as tightness sharp intermittent pain, aggravated by coughing, relieved by her Lortab's, rest and repositioning. She thought that it can go away but unfortunately states it has been worsening that she came in to seek further evaluation. Patient reports that she has been coughing in the past 2 days also, with mucous expectoration described as green yellow small amount, accompanied by chills without any fever. Recent hospital admission 10/26/16 2 10/31/16 for sickle cell crisis. Sickle cell crisis Sickle cell anemia Temp down. On Zosyn S/P 1 U PRBC 11/21. H/ H baseline- transfuse when indicated by hem/onc Dr. Jacobo - Hematology following along with us Continue IV Dilaudid . and prn IV Benadryl regimen, transition to PO meds. Received one time dose of deferoxamine, Ferritin increased. Plan to DC on Exjade. Group D Enterococcus Sepsis, pansensitive ( leukocytosis, tachycardia, bacteremia). Temp and WBC trending down. Blood cx 11/18 + Gr D Enterococcus. Pansensitive. Repeat blood cx 11/20 NTD DC Zosyn. Start amoxicillin Reinforced incentive spirometry-- again Hypokalemia - corrected HTN- controlled Cardiomyopathy- not in failure Continue home meds metoprolol, lisinopril Monitor BP trend DVT - encourage to ambulate around room Discussed with patient nurse Discharge home when improved and cleared by Dr Jacobo hem/onc Problem Qualifiers (1) Chest pain: Qualified Code: R07.9 - Chest pain, unspecified type Dipika Heard MD Nov 23, 2016 07:56
[2016-11-23] MEDS ORDERED: HYDR-3535 PO (08:07)
[2016-11-23] MEDS: SODIUM CHLORIDE 0.9% FLUSH 5 ML FLUSH IVF SCH ×2 (09:00→21:47)
[2016-11-23] MEDS ORDERED: AMPICILLIN 500 MG CAP PO SCH (09:00)
[2016-11-23] MEDS: AMOXICILLIN (TRIHYDRATE) 500 MG CAP PO SCH ×3 (10:16→21:46)
[2016-11-23 15:50] VITALS: BP 109/79; PULSE 65; RESP 20; TEMP 97.2; O2SAT 100
[2016-11-23 20:00] VITALS: BP 115/73; PULSE 70; RESP 18; TEMP 97.3; O2SAT 100
[2016-11-23] MEDS: ZOLPIDEM TARTRATE 5 MG TAB PO PRN (21:46)
[2016-11-24] MEDS: diphenhydrAMINE HCL 50 MG/ML VIAL IV PUSH PRN ×2 (01:42→09:43)
[2016-11-24] MEDS: HYDROmorphone HCL PF 1 MG/ML VIAL IV PUSH PRN ×3 (01:43→09:44)
[2016-11-24] MEDS: SODIUM CHLORIDE 0.9% FLUSH 5 ML FLUSH IVF PRN ×2 (01:43→05:41)
[2016-11-24 04:00] VITALS: BP 118/61; PULSE 68; RESP 16; TEMP 98.1; O2SAT 100
[2016-11-24 05:18] LABS: AUTOMATED NEUTROPHIL # 6.6 TH/MM3 (1.8-7.7); BASOPHIL # 0.2 TH/MM3 (0-0.2); BASOPHIL % 1.4 % (0.0-2.0); EOSINOPHIL # 0.4 TH/MM3 (0-0.4); EOSINOPHIL % 3.6 % (0.0-4.0); HEMATOCRIT 25.5 % (35.0-46.0); HEMO FLAGS DIFF FINAL; LYMPH % 30.4 % (9.0-44.0); LYMPHOCYTE # 3.7 TH/MM3 (1.0-4.8); MEAN CELL VOLUME 83.6 FL (80.0-100.0); MEAN CORPUSCULAR HEMOGLOBIN 28.3 PG (27.0-34.0); MEAN CORPUSCULAR HGB CONC 33.8 % (32.0-36.0); MONO % 9.9 % (0.0-8.0); NEUT % 54.7 % (16.0-70.0); PLATELET COUNT 607 TH/MM3 (150-450); RED BLOOD COUNT 3.05 MIL/MM3 (4.00-5.30); RED CELL DISTRIBUTION WIDTH 16.8 % (11.6-17.2)
[2016-11-24 05:25] LABS: BICARBONATE 28.7 MEQ/L (21.0-32.0); POTASSIUM 3.2 MEQ/L (3.5-5.1)
[2016-11-24] MEDS: AMOXICILLIN (TRIHYDRATE) 500 MG CAP PO SCH (05:39)
[2016-11-24 08:00] VITALS: BP 116/66; PULSE 78; RESP 20; TEMP 97.7; O2SAT 99
--- NOTE | 2016-11-24 08:09 | HHI.DS ---
Discharge Summary Admission Date Nov 18, 2016 at 06:43 Discharge Date: Nov 24, 2016 Admitting Diagnosis Sickle Cell Anemia; CP (1) Chest pain ICD Code: R07.9 Diagnosis: Principal (2) Sickle cell anemia with crisis ICD Code: D57.00 Diagnosis: Principal (3) Hypokalemia ICD Code: E87.6 Diagnosis: Principal (4) Pneumonia ICD Code: J18.9 Diagnosis: Principal (5) CHF (congestive heart failure) ICD Code: I50.9 Diagnosis: Secondary (6) Cardiomyopathy ICD Code: I42.9 Diagnosis: Secondary (7) HCAP (healthcare-associated pneumonia) ICD Code: J18.9 Diagnosis: Principal Procedures none Brief History - From Admission Patient is a 26-year-old female with primary medical history of sickle cell anemia, CHF, asthma who came into the hospital for complaints of severe right-sided chest pain described as tightening of the chest with some congestion and generalized body pain. She states she's been having chest tightness and pain about 2 days ago, described as tightness sharp intermittent pain, aggravated by coughing, relieved by her Lortab's, rest and repositioning. She thought that it can go away but unfortunately states it has been worsening that she came in to seek further evaluation. Patient reports that she has been coughing in the past 2 days also, with mucous expectoration described as green yellow small amount, accompanied by chills without any fever. Recent hospital admission 10/26/16 2 10/31/16 for sickle cell crisis. On exam, patient states that she still has generalized pain chest, back, bilateral shoulders, bilateral hips and lower extremities, rated as 10 over 10, sharp aching nagging pain, relieved with hydromorphone and Benadryl. States she continues to have difficulty taking deep breaths. Otherwise, denies fevers , headaches, palpitations, dizziness, dysuria, abdominal pain, cramping, nausea , vomiting, diarrhea. Denies hematemesis, hematochezia. In the ED. Patient was given 1 L bolus fluid, hydromorphone, Benadryl, ceftriaxone, azithromycin, and potassium chloride. Labs reviewed. Leukocytosis WBC 19.4, anemia was likely sickle cell RBC 2.3, hemoglobin 6.7, hematocrit 19.4, platelet count 541. BMP showed potassium 3.2. Chest x-ray showed cardiomegaly. No acute disease. CBC/BMP: 11/24/16 0500 11/24/16 0500 Significant Findings Laboratory Tests Test 11/21/16 11/21/16 11/22/16 11/23/16 08:14 08:17 07:43 05:56 White Blood Count 11.6 TH/MM3 (4.0-11.0) Red Blood Count 2.25 MIL/MM3 2.62 MIL/MM3 2.81 MIL/MM3 (4.00-5.30) (4.00-5.30) (4.00-5.30) Hemoglobin 6.4 GM/DL 7.6 GM/DL 8.1 GM/DL (11.6-15.3) (11.6-15.3) (11.6-15.3) Hematocrit 18.8 % 21.9 % 23.7 % (35.0-46.0) (35.0-46.0) (35.0-46.0) Red Cell Distribution Width 18.1 % 17.8 % (11.6-17.2) (11.6-17.2) Monocytes (%) (Auto) 11.4 % 11.6 % 9.3 % (0.0-8.0) (0.0-8.0) (0.0-8.0) Eosinophils (%) (Auto) 5.5 % (0.0-4.0) 5.9 % (0.0-4.0) Monocytes # (Auto) 1.3 TH/MM3 1.2 TH/MM3 1.0 TH/MM3 (0-0.9) (0-0.9) (0-0.9) Eosinophils # (Auto) 0.6 TH/MM3 0.6 TH/MM3 (0-0.4) (0-0.4) Reticulocyte Count 3.8 % (0.4-3.0) 4.6 % (0.4-3.0) Total Bilirubin 1.3 MG/DL 1.2 MG/DL (0.2-1.0) (0.2-1.0) Direct Bilirubin 0.3 MG/DL 0.3 MG/DL (0.0-0.2) (0.0-0.2) Indirect Bilirubin 1.0 MG/DL 0.9 MG/DL (0.0-0.8) (0.0-0.8) Albumin 3.1 GM/DL (3.4-5.0) Platelet Count 497 TH/MM3 521 TH/MM3 (150-450) (150-450) Aspartate Amino Transf 44 U/L (15-37) (AST/SGOT) Test 11/24/16 05:00 White Blood Count 12.0 TH/MM3 (4.0-11.0) Red Blood Count 3.05 MIL/MM3 (4.00-5.30) Hemoglobin 8.6 GM/DL (11.6-15.3) Hematocrit 25.5 % (35.0-46.0) Platelet Count 607 TH/MM3 (150-450) Monocytes (%) (Auto) 9.9 % (0.0-8.0) Monocytes # (Auto) 1.2 TH/MM3 (0-0.9) Potassium Level 3.2 MEQ/L (3.5-5.1) Blood Urea Nitrogen 3 MG/DL (7-18) Random Glucose 126 MG/DL (74-106) Imaging Last Impressions Chest X-Ray 11/18/16 0515 Signed Impressions: Service Date/Time: Friday, November 18, 2016 05:50 - CONCLUSION: No acute disease. Rebel Cotto MD PE at Discharge GENERAL: 23 to F well nourished, well developed patient, in nad. SKIN: Warm and dry. HEAD: Atraumatic. Normocephalic. EYES: Pupils equal and round. No scleral icterus. No injection or drainage. ENT: No nasal bleeding or discharge. Mucous membranes pink and moist. NECK: Trachea midline. No JVD. CARDIOVASCULAR: Regular rate and rhythm. RESPIRATORY: No accessory muscle use. Clear to auscultation. Breath sounds equal bilaterally. GASTROINTESTINAL: Abdomen soft, non-tender, nondistended. Hepatic and splenic margins not palpable. MUSCULOSKELETAL: Extremities without clubbing, cyanosis, or edema. No obvious deformities. NEUROLOGICAL: Awake and alert. No obvious cranial nerve deficits. Motor grossly within normal limits. Five out of 5 muscle strength in the arms and legs. Normal speech. PSYCHIATRIC: Appropriate mood and affect; insight and judgment normal. Pt update on day of discharge Patient says she feels improved. No n/v/d/c. Denies chest pain, sob. Hospital Course Patient is a 26-year-old female with primary medical history of sickle cell anemia, CHF, asthma who came into the hospital for complaints of severe right-sided chest pain described as tightening of the chest with some congestion and generalized body pain. She states she's been having chest tightness and pain about 2 days ago, described as tightness sharp intermittent pain, aggravated by coughing, relieved by her Lortab's, rest and repositioning. She thought that it can go away but unfortunately states it has been worsening that she came in to seek further evaluation. Patient reports that she has been coughing in the past 2 days also, with mucous expectoration described as green yellow small amount, accompanied by chills without any fever. Recent hospital admission 10/26/16 2 10/31/16 for sickle cell crisis. Sickle cell crisis Sickle cell anemia Temp down. On Zosyn S/P 1 U PRBC 11/21. H/ H baseline- transfuse when indicated by hem/onc Dr. Jacobo - Hematology following along with us Continue IV Dilaudid . and prn IV Benadryl regimen, transition to PO meds. Received one time dose of deferoxamine, Ferritin increased. Plan to DC on Exjade. Group D Enterococcus Sepsis, pansensitive ( leukocytosis, tachycardia, bacteremia). Temp and WBC trending down. Blood cx 11/18 + Gr D Enterococcus. Pansensitive. Repeat blood cx 11/20 NTD DC Zosyn. Start amoxicillin Reinforced incentive spirometry-- again Hypokalemia - corrected HTN- controlled Cardiomyopathy- not in failure Continue home meds metoprolol, lisinopril Monitor BP trend DVT - encourage to ambulate around room Continue exjade, follow up with hem/oncology for refills. Discussed with hem/ onc. DC home to follow up as OP with PCP and consultants. Pt Condition on Discharge: Stable Discharge Disposition: Discharge Home Discharge Time: <= 30 minutes Discharge Instructions DIET: Follow Instructions for: As Tolerated, No Restrictions Activities you can perform: Regular-No Restrictions Follow up Referrals: Oncology - 1 Week PCP Follow-up - 2-3 Days Continued Medications: Albuterol 6.7 GM Inh (Proventil Hfa 6.7 GM Inh) 90 Mcg/Act Aer 2 PUFF INH Q6H PRN SHORTNESS OF BREATH #1 Ref 0 INHALER Diphenhydramine (Benadryl Allergy) 25 Mg Tab 25 MG PO DAILY PRN ALLERGIES Ref 0 TAB Folic Acid (Folate) 1 Mg Tab 5 MG PO DAILY anemia #30 TAB Hydrocodone-Acetaminophen (Lortab) 10-325 Mg Tab 1 TAB PO Q6H PRN PAIN #12 Ref 0 TAB (This prescription has been renewed) Hydroxyurea (Hydrea) 500 Mg Cap 500 MG PO DAILY sickle cell Days 30 Ref 0 CAP Lisinopril (Lisinopril) 5 Mg Tab 2.5 MG PO DAILY cardiomyopathy #30 TAB Metoprolol Succinate ER 24 HR (Metoprolol Succinate ER 24 HR) 25 Mg Tab 12.5 MG PO DAILY cardiomyopathy #30 TAB Zolpidem (Ambien) 5 Mg Tab 5 MG PO HS INSOMNIA Ref 0 TAB Dipika Heard MD Nov 24, 2016 08:09
[2016-11-24] MEDS ORDERED: POTASSIUM CHLORIDE 10 MEQ CONTROLLED RELEASE TAB PO ONE (09:00)
[2016-11-24] MEDS: SODIUM CHLORIDE 0.9% FLUSH 5 ML FLUSH IVF SCH (09:44)
--- NOTE | 2016-11-24 13:09 | PD.ONC.PN ---
Subjective Subjective Remarks Afebrile overnight. Patient resting comfortably. She states she still has some residual crisis pain. Objective Data Date Time Temp Pulse Resp B/P Pulse Ox O2 Delivery O2 Flow Rate FiO2 11/24/16 08:00 97.7 78 20 116/66 99 11/24/16 04:00 98.1 68 16 118/61 100 11/24/16 02:43 18 11/23/16 20:00 97.3 70 18 115/73 100 11/23/16 15:50 97.2 65 20 109/79 100 Result Diagram: 11/24/16 0500 11/24/16 0500 Laboratory Results Laboratory Tests Test 11/24/16 05:00 White Blood Count 12.0 TH/MM3 Red Blood Count 3.05 MIL/MM3 Hemoglobin 8.6 GM/DL Hematocrit 25.5 % Mean Corpuscular Volume 83.6 FL Mean Corpuscular Hemoglobin 28.3 PG Mean Corpuscular Hemoglobin 33.8 % Concent Red Cell Distribution Width 16.8 % Platelet Count 607 TH/MM3 Mean Platelet Volume 7.4 FL Neutrophils (%) (Auto) 54.7 % Lymphocytes (%) (Auto) 30.4 % Monocytes (%) (Auto) 9.9 % Eosinophils (%) (Auto) 3.6 % Basophils (%) (Auto) 1.4 % Neutrophils # (Auto) 6.6 TH/MM3 Lymphocytes # (Auto) 3.7 TH/MM3 Monocytes # (Auto) 1.2 TH/MM3 Eosinophils # (Auto) 0.4 TH/MM3 Basophils # (Auto) 0.2 TH/MM3 CBC Comment DIFF FINAL Differential Comment Sodium Level 139 MEQ/L Potassium Level 3.2 MEQ/L Chloride Level 103 MEQ/L Carbon Dioxide Level 28.7 MEQ/L Anion Gap 7 MEQ/L Blood Urea Nitrogen 3 MG/DL Creatinine 0.64 MG/DL Estimat Glomerular Filtration 135 ML/MIN Rate Random Glucose 126 MG/DL Calcium Level 8.9 MG/DL Objective Remarks GENERAL: Young female, sitting up in bed in nad. SKIN: Warm and dry. HEAD: Normocephalic. EYES: No injection or drainage. NECK: Supple, trachea midline. CARDIOVASCULAR: Regular rate and rhythm RESPIRATORY: Breath sounds equal bilaterally. No accessory muscle use. GASTROINTESTINAL: Abdomen soft, non-tender, nondistended. EXTREMITIES: No cyanosis NEUROLOGICAL: No obvious focal deficit. Awake, alert, and oriented x3. Assessment/Plan Problem List: (1) Sickle cell anemia with crisis Status: Acute Plan: --no evidence of acute chest syndrome, --chest x-ray does not show any acute pathology. --baseline hemoglobin is in the low seven. would recommend avoiding over transfusion in this patient. --Check daily CBC. LDH, retic count and total bilirubin --continue incentive spirometry and folic acid 1 milligram p.o. daily. (2) Sepsis Status: Acute Plan: --tolerating Amoxicillin --BC + enterococcus --CXR WNL --U/A WNL (3) Iron overload due to repeated red blood cell transfusions Status: Acute Plan: - Start Exjade once pain crisis has resolved Assessment 26-year-old female with sickle cell disease admitted with chest tightness and generalized pain Plan 1. clear for discharge 2. follow up in clinic, resume exjade outpatient Attending Statement O2 sats stable. pain well controlled. Hb up clear for d/c from hematology perspective Problem Qualifiers (1) Sepsis: Qualified Code: A40.8 - Other streptococcal sepsis Alejandra Spencer Nov 24, 2016 13:08 Aung Jacobo MD Nov 24, 2016 23:02
== END 2016-11-24 12:11 | disposition home or self-care (01) | DRG 871 ==
LOC: NEPE 03:14 → NEDA 06:43 → NEPGCP 08:54 → HOCB 11-21 17:08
PROVIDERS: ADMIT Hospitalist; ATTEND Hospitalist
PROC: 30233N1 Transfusion of Nonautologous Red Blood Cells into Peripheral Vein, Percutaneous Approach (ICD-10-PCS; principal; 2016-11-18)
DX: A41.81 Sepsis due to Enterococcus (principal); D57.00 Hb-SS disease with crisis, unspecified; J18.9 Pneumonia, unspecified organism; I42.9 Cardiomyopathy, unspecified; I50.9 Heart failure, unspecified; E83.111 Hemochromatosis due to repeated red blood cell transfusions; F41.9 Anxiety disorder, unspecified; J45.909 Unspecified asthma, uncomplicated; I25.10 Atherosclerotic heart disease of native coronary artery without angina pectoris; Z86.14 Personal history of Methicillin resistant Staphylococcus aureus infection; R00.0 Tachycardia, unspecified; E87.6 Hypokalemia; Y95 Nosocomial condition; R07.89 Other chest pain; Z91.19 Patient's noncompliance with other medical treatment and regimen
CPT/HCPCS: 36430; 71010; 80048; 80076; 81001; 82728; 83605; 83615; 85007; 85025; 85027; 85044; 86850; 86900; 86901; 86902; 86920; 86922; 87040; 87077; 87186; 87205; 94640; 94664; 96361; 96374; 96375; 96376; J0696; J0895; J1170; J1200; J2405; J2543; J7030; J7050; P9016

== ENCOUNTER 2016-12-19 10:10 | Inpatient (IN) | payer MEDICAID ==
[~2016-12-19] VITALS: Ht 162.6 cm; Wt 75.1 kg
[2016-12-19] VITALS (10 sets, daily range): BP systolic 95–138; BP diastolic 52–74; PULSE 65–118; RESP 16–19; TEMP 97.8–100.6; O2SAT 95–99
[~2016-12-19 10:10] MED LIST changes: +BENA25TA3 PO
[2016-12-19] MEDS ORDERED: SODIUM CHLOR 0.9% 1000 ML INJ 1,000 ML IV ONE ×2 (10:31→13:30)
[2016-12-19] MEDS ORDERED: diphenhydrAMINE HCL 50 MG/ML VIAL IV ONE (10:45)
[2016-12-19] MEDS ORDERED: SODIUM CHLORIDE 0.9% FLUSH 10 ML FLUSH IVF PRN (10:45)
[2016-12-19] MEDS ORDERED: HYDROmorphone HCL PF 1 MG/ML VIAL IVS ONE (10:45)
[2016-12-19] MEDS ORDERED: ONDANSETRON HCL 4 MG/2 ML VIAL IVP ONE (10:45)
--- NOTE | 2016-12-19 10:52 | PD ---
HPI Chief Complaint: Sickle Cell Time Seen by Provider: 10:31 Travel History International Travel<30 days: No Contact w/Intl Traveler<30days: No Traveled to known affect area: No History of Present Illness HPI 26-year-old female with history of sickle cell disease and asthma, presents to the ER today for several days history of cough, cold symptoms, wheezing and shortness of breath, and today was getting body pains all over, states that she thinks that her sickle cells acting up. She denies any fevers, nausea, vomiting , or any other symptoms. She states that her niece had cough and cold symptoms several days ago as well. She has tried using her nebulizers without significant improvement. Modifying Factors: None Associated Signs & Symptoms: Cough, cold symptoms, wheezing, body pains Risk Factors: Sickle cell PFSH Past Medical History Hx Anticoagulant Therapy: Yes Anemia: Yes Arthritis: No Asthma: Yes Autoimmune Disease: No Blood Disorders: Yes Anxiety: Yes Depression: No Heart Rhythm Problems: No Cancer: No Cardiovascular Problems: Yes (CHF) High Cholesterol: No Chemotherapy: No Chest Pain: Yes Congestive Heart Failure: Yes COPD: No Cerebrovascular Accident: No Diabetes: No Diminished Hearing: No Endocrine: No Gastrointestinal Disorders: Yes GERD: No Genitourinary: No Headaches: Yes Hiatal Hernia: No Hypertension: No Immune Disorder: No Implanted Vascular Access Dvce: Yes Kidney Stones: No Musculoskeletal: No Neurologic: Yes Psychiatric: Yes Reproductive: No Respiratory: Yes Immunizations Current: Yes Migraines: Yes Pneumonia: Yes Radiation Therapy: No Renal Failure: No Seizures: No Sickle Cell Disease: Yes Sleep Apnea: No Thyroid Disease: No Ulcer: No PNEUMOCCOCAL Vaccine (Year): 1 ?: Not LMP: 12/04/16 : 1 Para: 1 Miscarriage: 0 : 0 Tubal Ligation: Yes Past Surgical History Abdominal Surgery: No AICD: No Arteriovenous Shunt: No Body Medical Devices: INFUSAPORT (3RD) Cardiac Surgery: No Section: Yes (X 1) Cholecystectomy: Yes Ear Surgery: No Endocrine Surgery: No Eye Surgery: No Genitourinary Surgery: No Gynecologic Surgery: Yes (c section) Hysterectomy: No Insulin Pump: No Joint Replacement: No Neurologic Surgery: No Oral Surgery: No Pacemaker: No Thoracic Surgery: No Other Surgery: Yes (PORTX3 PLACED AND REMOVED, gallstones) Social History Alcohol Use: No Tobacco Use: No Substance Use: No Allergies-Medications (Allergen,Severity, Reaction): Coded Allergies: Percocet (Verified Adverse Reaction, Severe, Nausea/Vomiting, 12/19/16) AND ITCHING *MDRO Multi-Drug Resistant Organism (Verified Adverse Reaction, Unknown, Cleared 02/08/15, 12/19/16) MRSA (Chest Wound) - 02/2012 MRSA PCR Screen negative 02/06/15 and 02/08/15. Cleared per Infection Control Reported Meds & Prescriptions Reported Meds & Active Scripts Active Lortab (Hydrocodone-Acetaminophen) 10-325 Mg Tab 1 Tab PO Q6H PRN Hydrea (Hydroxyurea) 500 Mg Cap 500 Mg PO DAILY 30 Days Metoprolol Succinate ER 24 HR (Metoprolol Succinate) 25 Mg Tab 12.5 Mg PO DAILY Lisinopril 5 Mg Tab 2.5 Mg PO DAILY Folate (Folic Acid) 1 Mg Tab 5 Mg PO DAILY Reported Benadryl Allergy (Diphenhydramine HCl) 25 Mg Tab 25 Mg PO DAILY PRN Ambien (Zolpidem Tartrate) 5 Mg Tab 5 Mg PO HS Proventil Hfa 6.7 GM Inh (Albuterol Sulfate) 90 Mcg/Act Aer 2 Puff INH Q6H PRN Review of Systems Except as stated in HPI: all other systems reviewed are Neg Physical Exam Narrative GENERAL: Well-developed young -[place] female patient in mild respiratory distress per awake and oriented 3. SKIN: Focused skin assessment warm/dry. HEAD: Atraumatic. Normocephalic. EYES: Pupils equal and round. No scleral icterus. No injection or drainage. ENT: No nasal bleeding or discharge. Mucous membranes pink and moist. NECK: Trachea midline. No JVD. CARDIOVASCULAR: Regular rate and rhythm. No murmur appreciated. RESPIRATORY: Mild accessory muscle use. Equal with mild wheezing bilaterally. Breath sounds equal bilaterally. GASTROINTESTINAL: Abdomen soft, non-tender, nondistended. Hepatic and splenic margins not palpable. MUSCULOSKELETAL: No obvious deformities. No clubbing. No cyanosis. No edema. NEUROLOGICAL: Awake and alert. No obvious cranial nerve deficits. Motor grossly within normal limits. Normal speech. PSYCHIATRIC: Appropriate mood and affect; insight and judgment normal. Data Data Last Documented VS Vital Signs Date Time Temp Pulse Resp B/P Pulse Ox O2 Delivery O2 Flow Rate FiO2 12/19/16 10:12 97.8 118 18 121/72 98 Orders C-Reactive Protein (Crp) (12/19/16 10:31) Complete Blood Count With Diff (12/19/16 10:31) Comprehensive Metabolic Panel (12/19/16 10:31) Retic Count (12/19/16 10:31) Chest, Single Ap (12/19/16 10:31) Ecg Monitoring (12/19/16 10:31) Iv Access Insert/Monitor (12/19/16 10:31) Oximetry (12/19/16 10:31) Ondansetron Inj (Zofran Inj) (12/19/16 10:45) Sodium Chloride 0.9% Flush (Ns Flush) (12/19/16 10:45) Sodium Chlor 0.9% 1000 Ml Inj (Ns 1000 M (12/19/16 10:31) Hydromorphone Pf Inj (Dilaudid Pf Inj) (12/19/16 10:45) Diphenhydramine Inj (Benadryl Inj) (12/19/16 10:45) Ed Urine Pregnancytest Poc (12/19/16 10:31) Hydromorphone Pf Inj (Dilaudid Pf Inj) (12/19/16 12:30) Labs Laboratory Tests Test 12/19/16 10:55 White Blood Count 18.5 TH/MM3 Red Blood Count 2.81 MIL/MM3 Hemoglobin 8.2 GM/DL Hematocrit 23.3 % Mean Corpuscular Volume 82.9 FL Mean Corpuscular Hemoglobin 29.1 PG Mean Corpuscular Hemoglobin 35.1 % Concent Red Cell Distribution Width 16.5 % Platelet Count 422 TH/MM3 Mean Platelet Volume 8.1 FL Neutrophils (%) (Auto) 74.1 % Lymphocytes (%) (Auto) 10.0 % Monocytes (%) (Auto) 12.3 % Eosinophils (%) (Auto) 2.5 % Basophils (%) (Auto) 1.1 % Neutrophils # (Auto) 13.7 TH/MM3 Lymphocytes # (Auto) 1.9 TH/MM3 Monocytes # (Auto) 2.3 TH/MM3 Eosinophils # (Auto) 0.5 TH/MM3 Basophils # (Auto) 0.2 TH/MM3 CBC Comment AUTO DIFF Differential Total Cells 100 Counted Neutrophils % (Manual) 79 % Band Neutrophils % 2 % Lymphocytes % 7 % Monocytes % 9 % Eosinophils % 1 % Basophils % 2 % Neutrophils # (Manual) 15.0 TH/MM3 Differential Comment FINAL DIFF MANUAL Platelet Estimate NORMAL Platelet Morphology Comment NORMAL Sickle Cells 1+ Target Cells 1+ Red Cell Morphology Comment Reticulocyte Count 4.5 % Absolute Reticulocyte Count 125.2 MIL/L Sodium Level 137 MEQ/L Potassium Level 3.4 MEQ/L Chloride Level 105 MEQ/L Carbon Dioxide Level 24.0 MEQ/L Anion Gap 8 MEQ/L Blood Urea Nitrogen 5 MG/DL Creatinine 0.68 MG/DL Estimat Glomerular Filtration 126 ML/MIN Rate Random Glucose 95 MG/DL Calcium Level 8.9 MG/DL Total Bilirubin 1.7 MG/DL Aspartate Amino Transf 24 U/L (AST/SGOT) Alanine Aminotransferase 12 U/L (ALT/SGPT) Alkaline Phosphatase 77 U/L C-Reactive Protein 1.30 MG/DL Total Protein 8.1 GM/DL Albumin 3.9 GM/DL MDM Medical Decision Making Medical Screen Exam Complete: Yes Emergency Medical Condition: Yes Medical Record Reviewed: Yes Interpretation(s) Laboratory Tests Test 12/19/16 10:55 White Blood Count 18.5 TH/MM3 (4.0-11.0) Red Blood Count 2.81 MIL/MM3 (4.00-5.30) Hemoglobin 8.2 GM/DL (11.6-15.3) Hematocrit 23.3 % (35.0-46.0) Neutrophils (%) (Auto) 74.1 % (16.0-70.0) Monocytes (%) (Auto) 12.3 % (0.0-8.0) Neutrophils # (Auto) 13.7 TH/MM3 (1.8-7.7) Monocytes # (Auto) 2.3 TH/MM3 (0-0.9) Eosinophils # (Auto) 0.5 TH/MM3 (0-0.4) Neutrophils % (Manual) 79 % (16-70) Lymphocytes % 7 % (9-44) Monocytes % 9 % (0-8) Neutrophils # (Manual) 15.0 TH/MM3 (1.8-7.7) Sickle Cells 1+ (NORMAL) Target Cells 1+ (NORMAL) Reticulocyte Count 4.5 % (0.4-3.0) Potassium Level 3.4 MEQ/L (3.5-5.1) Blood Urea Nitrogen 5 MG/DL (7-18) Total Bilirubin 1.7 MG/DL (0.2-1.0) C-Reactive Protein 1.30 MG/DL (0.00-0.30) Last 24 hours Impressions Chest X-Ray 12/19/16 1031 Signed Impressions: Service Date/Time: Monday, December 19, 2016 10:29 - CONCLUSION: No appreciable change. K. Reinier Garg MD Differential Diagnosis Sickle cell crisis versus URI versus pneumonia Narrative Course Chest x-ray did not show any signs of acute pulmonary processes. Her lab work did not show significant metabolic abnormalities per she has an elevated white blood cell count but no signs of pneumonia. His suspect at this point, it is demarginalization. Patient was given IV fluids, Zofran, Benadryl, and Dilaudid in the ER with IV fluids. She felt some improvement but states that she is still having significant pain. She was given nebulizers in the ER with improvement in breathing. At this point, my plan would be to admit her for further treatment. Case was discussed with for admission. Diagnosis Primary Impression: Acute sickle cell crisis Additional Impression: Asthma Admitting Information Admitting Physician Requests: Admit Sandrita Anderson MD Dec 19, 2016 10:52
[2016-12-19 11:13] LABS: AUTOMATED NEUTROPHIL # 13.7 TH/MM3 (1.8-7.7); BASOPHIL # 0.2 TH/MM3 (0-0.2); BASOPHIL % 1.1 % (0.0-2.0); EOSINOPHIL # 0.5 TH/MM3 (0-0.4); EOSINOPHIL % 2.5 % (0.0-4.0); HEMATOCRIT 23.3 % (35.0-46.0); LYMPHOCYTE # 1.9 TH/MM3 (1.0-4.8); MEAN CELL VOLUME 82.9 FL (80.0-100.0); MEAN CORPUSCULAR HEMOGLOBIN 29.1 PG (27.0-34.0); MEAN CORPUSCULAR HGB CONC 35.1 % (32.0-36.0); MONO % 12.3 % (0.0-8.0); NEUT % 74.1 % (16.0-70.0); PLATELET COUNT 422 TH/MM3 (150-450); RED BLOOD COUNT 2.81 MIL/MM3 (4.00-5.30); RED CELL DISTRIBUTION WIDTH 16.5 % (11.6-17.2); RETIC % 4.5 % (0.4-3.0); WHITE BLOOD COUNT 18.5 TH/MM3 (4.0-11.0)
[2016-12-19 11:14] LABS: HEMO FLAGS AUTO DIFF
[2016-12-19 11:32] LABS: ANION GAP 8 MEQ/L (5-15); AST (GOT) 24 U/L (15-37); BLOOD UREA NITROGEN 5 MG/DL (7-18); CHLORIDE 105 MEQ/L (98-107); GLOMERULAR FILTRATION RATE 126 ML/MIN (>89); POTASSIUM 3.4 MEQ/L (3.5-5.1); SODIUM (NA) 137 MEQ/L (136-145)
[2016-12-19 11:35] LABS: ALKALINE PHOSPHATASE 77 U/L (45-117); ALT (GPT) 12 U/L (10-53); TOTAL BILIRUBIN ADULT 1.7 MG/DL (0.2-1.0)
--- NOTE | 2016-12-19 12:04 | RADRPT ---
EXAM DATE/TIME: 12/19/2016 10:29 [facility] COMPARISON: CHEST SINGLE AP, November 18, 2016, 5:50. INDICATIONS : Cough and sickle cell pain. MEDICAL HISTORY : Sickle Cell disease. SURGICAL HISTORY : Port placement. ENCOUNTER: Initial ACUITY: 3 days PAIN SCORE: 4/10 LOCATION: Bilateral chest FINDINGS: Right IJ Epoani-s-Lyjr is present with tip overlapping the expected region of the SVC. Slight cardiom egaly has not changed. Lungs are clear. CONCLUSION: No appreciable change. Lala Garg MD on December 19, 2016 at 12:01 Board Certified Radiologist. This report was verified electronically.
[2016-12-19 12:06] LABS: BANDS 2 % (0-6); BASOPHILS 2 % (0-2); EOSINOPHILS 1 % (0-4); POLYS (SEG NEUTROPHILS) 79 % (16-70); WBC DIFF SAMPLE 100
[2016-12-19 12:08] LABS: SICKLE CELLS 1+ (NORMAL); TARGET CELLS 1+ (NORMAL)
[2016-12-19 12:09] LABS: PLATELET ESTIMATE SMEAR NORMAL (NORMAL); PLATELET MORPHOLOGY NORMAL (NORMAL); SCAN/DIFF FINAL DIFF MANUAL
[2016-12-19] MEDS ORDERED: HYDROmorphone HCL PF 1 MG/ML VIAL IV PUSH ONE (12:30)
[2016-12-19] MEDS ORDERED: POTASSIUM CHLORIDE 20 MEQ CONTROLLED RELEASE TAB PO ONE (13:15)
[2016-12-19] MEDS ORDERED: PILL SPLITTER OTHER PRN (13:15)
[2016-12-19] MEDS ORDERED: ALBUTEROL SULFATE 90 MCG/ACT HFA 8 GM INHALER INH PRN (13:15)
[2016-12-19] MEDS ORDERED: ONDANSETRON HCL 4 MG/2 ML VIAL IV PUSH PRN (13:30)
--- NOTE | 2016-12-19 13:36 | HHI.HP ---
[facility] Primary Care Physician No Primary Care Physician Admission Diagnosis sickle cell crisis/asthma exacerbation Diagnoses: (1) Sickle cell disease with crisis Diagnosis: Principal Chief Complaint: generalized body ache Travel History International Travel<30 Days: No Contact w/Intl Traveler <30 Da: No Traveled to Known Affected Are: No History of Present Illness patient is a 26 y/o female with history of sickle cell disease who presented to ER with generalized body ache. she says that the pain started two days ago. she says that ' the whole body aches'. she's also complaining of some cough, productive of small amount of whitish sputum. she denies any fever or chills but she says that she had a sick contact recently. Review of Systems Constitutional: DENIES: Fever, Weight loss, Chills, Night Sweats Eyes: DENIES: Blurred vision, Diplopia, Vision loss, Double Vision Ears, nose, mouth, throat: DENIES: Tinnitus, Vertigo, Throat pain, Epistaxis Respiratory: COMPLAINS OF: Cough, Sputum production, DENIES: Apneas, Snoring, Wheezing, Hemoptysis, Shortness of breath Cardiovascular: DENIES: Chest pain, Palpitations, Syncope, Dyspnea on Exertion , PND, Lower Extremity Edema, Orthopnea, Claudication Gastrointestinal: DENIES: Abdominal pain, Black stools, Bloody stools, Constipation, Diarrhea, Nausea, Vomiting, Difficulty Swallowing, Anorexia Genitourinary: DENIES: Urinary frequency, Urgency, Hematuria, Dysuria Musculoskeletal: DENIES: Joint pain, Muscle aches, Stiffness, Joint Swelling Integumentary: DENIES: Rash Neurologic: DENIES: Abnormal gait, Headache, Localized weakness, Paresthesias, Seizures, Speech Problems, Tremor, Poor Balance Psychiatric: DENIES: Anxiety, Confusion, Mood changes, Depression, Hallucinations, Agitation, Suicidal Ideation, Homicidal Ideation, Delusions body ache. Past Family Social History Past Medical History sickle cell disease cardiomyopathy Past Surgical History port placement cholecystectomy Reported Medications Lortab (Hydrocodone-Acetaminophen) 10-325 Mg Tab 1 Tab PO Q6H PRN Hydrea (Hydroxyurea) 500 Mg Cap 500 Mg PO DAILY 30 Days Metoprolol Succinate ER 24 HR (Metoprolol Succinate) 25 Mg Tab 12.5 Mg PO DAILY Lisinopril 5 Mg Tab 2.5 Mg PO DAILY Folate (Folic Acid) 1 Mg Tab 5 Mg PO DAILY Benadryl Allergy (Diphenhydramine HCl) 25 Mg Tab 25 Mg PO DAILY PRN Ambien (Zolpidem Tartrate) 5 Mg Tab 5 Mg PO HS Proventil Hfa 6.7 GM Inh (Albuterol Sulfate) 90 Mcg/Act Aer 2 Puff INH Q6H PRN Allergies: Coded Allergies: Percocet (Verified Adverse Reaction, Severe, Nausea/Vomiting, 12/19/16) AND ITCHING *MDRO Multi-Drug Resistant Organism (Verified Adverse Reaction, Unknown, Cleared 02/08/15, 12/19/16) MRSA (Chest Wound) - 02/2012 MRSA PCR Screen negative 02/06/15 and 02/08/15. Cleared per Infection Control Active Ordered Medications Current Medications Ondansetron HCl (Zofran Inj) 4 mg ONCE ONCE IVP Last administered on 11:12; Start 12/19/16 at 10:45; Stop 12/19/16 at 10:46; Status DC Sodium Chloride 2 ml 2 ml UNSCH PRN IVF FLUSH AFTER USING IV ACCESS; Start at 10:45 Sodium Chloride (NS 1000 ml Inj) 1,000 ml @ 1,000 mls/hr Q1H ONCE IV Last administered on 12/19/16 11:12; Start 12/19/16 at 10:31; Stop 12/19/16 at 11:30 ; Status DC Hydromorphone HCl (Dilaudid Pf Inj) 1 mg ONCE ONCE IVS Last administered on 11:12; Start 12/19/16 at 10:45; Stop 12/19/16 at 10:46; Status DC Diphenhydramine HCl (Benadryl Inj) 25 mg ONCE ONCE IV Last administered on 11:12; Start 12/19/16 at 10:45; Stop 12/19/16 at 10:46; Status DC Hydromorphone HCl (Dilaudid Pf Inj) 1 mg ONCE ONCE IV PUSH Last administered on 4/21/17at 13:22; Start 12/19/16 at 12:30; Stop 12/19/16 at 12:31; Status DC Albuterol Sulfate (Proair Hfa Inh) 2 puff Q6H PRN INH SHORTNESS OF BREATH; Start 12/19/16 at 13:15 Folic Acid (Folate) 5 mg DAILY PO ; Start 12/20/16 at 09:00 Hydroxyurea (Hydrea) 500 mg DAILY PO ; Start 12/20/16 at 09:00 Lisinopril (Prinivil) 2.5 mg DAILY PO ; Start 12/20/16 at 09:00 Metoprolol Succinate (Toprol Xl) 12.5 mg DAILY PO ; Start 12/20/16 at 09:00 Potassium Chloride (KCl) 20 meq ONCE ONCE PO ; Start 12/19/16 at 13:15; Stop at 13:16; Status DC Miscellaneous (Pill Splitter) 1 ea UNSCH PRN OTHER SEE LABEL COMMENTS; Start at 13:15 Hydromorphone HCl (Dilaudid Pf Inj) 1 mg Q4H PRN IV PUSH PAIN >5; Start at 13:30; Status UNV Acetaminophen/ Hydrocodone Bitart ([place] 5-325 Mg) 1 tab Q4H PRN PO PAIN < 5; Start 12/19/16 at 13:30; Status UNV Ondansetron HCl 4 mg 4 mg Q8HR PRN IV PUSH NAUSEA; Start 12/19/16 at 13:30; Status UNV Sodium Chloride (NS 1000 ml Inj) 1,000 ml @ 75 mls/hr [id number] ONCE IV ; Start 12/19/16 at 13:30; Stop 12/20/16 at 02:49; Status UNV Diphenhydramine HCl (Benadryl) 25 mg Q6H PRN PO ITCHING; Start 12/19/16 at 13: 30; Status UNV Social History no smoking. drinks occasionally. Physical Exam Vital Signs Vital Signs Date Time Temp Pulse Resp B/P Pulse Ox O2 Delivery O2 Flow Rate FiO2 12/19/16 10:12 97.8 118 18 121/72 98 Physical Exam GENERAL: This is a well-nourished, well-developed patient, in no apparent distress. SKIN: No rashes, ecchymoses or lesions. Cool and dry. HEAD: Atraumatic. Normocephalic. No temporal or scalp tenderness. EYES: Pupils equal round and reactive. Extraocular motions intact. No scleral icterus. No injection or drainage. ENT: Nose without bleeding, purulent drainage or septal hematoma. Throat without erythema, tonsillar hypertrophy or exudate. Uvula midline. Airway patent. NECK: Trachea midline. No JVD or lymphadenopathy. Supple, nontender, no meningeal signs. CARDIOVASCULAR: Regular rate and rhythm without murmurs, gallops, or rubs. RESPIRATORY: diminished air entry in bases. GASTROINTESTINAL: Abdomen soft, non-tender, nondistended. No hepato-splenomegaly , or palpable masses. No guarding. MUSCULOSKELETAL: Extremities without clubbing, cyanosis, or edema. No joint tenderness, effusion, or edema noted. No calf tenderness. Negative Homans sign bilaterally. NEUROLOGICAL: Awake and alert. Cranial nerves II through XII intact. Motor and sensory grossly within normal limits. Five out of 5 muscle strength in all muscle groups. Normal speech. Laboratory Laboratory Tests Test 12/19/16 10:55 White Blood Count 18.5 Red Blood Count 2.81 Hemoglobin 8.2 Hematocrit 23.3 Mean Corpuscular Volume 82.9 Mean Corpuscular Hemoglobin 29.1 Mean Corpuscular Hemoglobin 35.1 Concent Red Cell Distribution Width 16.5 Platelet Count 422 Mean Platelet Volume 8.1 Neutrophils (%) (Auto) 74.1 Lymphocytes (%) (Auto) 10.0 Monocytes (%) (Auto) 12.3 Eosinophils (%) (Auto) 2.5 Basophils (%) (Auto) 1.1 Neutrophils # (Auto) 13.7 Lymphocytes # (Auto) 1.9 Monocytes # (Auto) 2.3 Eosinophils # (Auto) 0.5 Basophils # (Auto) 0.2 CBC Comment AUTO DIFF Differential Total Cells 100 Counted Neutrophils % (Manual) 79 Band Neutrophils % 2 Lymphocytes % 7 Monocytes % 9 Eosinophils % 1 Basophils % 2 Neutrophils # (Manual) 15.0 Differential Comment FINAL DIFF MANUAL Platelet Estimate NORMAL Platelet Morphology Comment NORMAL Sickle Cells 1+ Target Cells 1+ Red Cell Morphology Comment Reticulocyte Count 4.5 Absolute Reticulocyte Count 125.2 Sodium Level 137 Potassium Level 3.4 Chloride Level 105 Carbon Dioxide Level 24.0 Anion Gap 8 Blood Urea Nitrogen 5 Creatinine 0.68 Estimat Glomerular Filtration 126 Rate Random Glucose 95 Calcium Level 8.9 Total Bilirubin 1.7 Aspartate Amino Transf 24 (AST/SGOT) Alanine Aminotransferase 12 (ALT/SGPT) Alkaline Phosphatase 77 C-Reactive Protein 1.30 Total Protein 8.1 Albumin 3.9 Result Diagram: 12/19/16 1055 12/19/16 1055 Imaging Last Impressions Chest X-Ray 12/19/16 1031 Signed Impressions: Service Date/Time: Monday, December 19, 2016 10:29 - CONCLUSION: No appreciable change. Lala Garg MD Assessment and Plan Assessment and Plan A/P - sickle cell painful crisis continue with pain control- resume folic acid and hydroxyurea- cautious IV hydration in light of her cardiomyopathy -acute bronchitis; start neb treatment and Zithromax- oxygen as needed to keep O2 sat > 90%. -cardiomyopathy; resume home meds -mild hypokalemia; will replace. -DVT prophylaxis with Lovenox Discussed Condition With ER physician and the patient. Physician Certification 2 Midnight Certification Type: Admission for Inpatient Services Order for Inpatient Services The services are ordered in accordance with Medicare regulations or non- Medicare payer requirements, as applicable. In the case of services not specified as inpatient-only, they are appropriately provided as inpatient services in accordance with the 2-midnight benchmark. Estimated LOS (days): 2 days is the estimated time the patient will need to remain in the hospital, assuming treatment plan goals are met and no additional complications. Post-Hospital Plan: Home Bernardo Orozco MD Dec 19, 2016 13:36
[2016-12-19] MEDS ORDERED: RESP: ALBUTEROL 2.5 MG/3 ML NEB (PRN) NEB (14:00)
[2016-12-19] MEDS: diphenhydrAMINE HCL 25 MG CAP PO PRN ×2 (14:02→20:27)
[2016-12-19] MEDS: ACETAMINOPHEN/HYDROcodone 325 MG/5 MG TAB PO PRN ×2 (14:02→20:27)
[2016-12-19] MEDS: AZITHROMYCIN INJ 500 MG in SODIUM CHLOR 0.9% 250 ML INJ 250 ML IV SCH (14:03)
[2016-12-19] MEDS ORDERED: ALBUTEROL SULFATE 90 MCG/ACT HFA 18 GM INHALER INH PRN (14:30)
[2016-12-19] MEDS: HYDROmorphone HCL PF 1 MG/ML VIAL IV PUSH PRN ×2 (15:57→21:50)
[2016-12-19] MEDS: ZOLPIDEM TARTRATE 5 MG TAB PO PRN (21:51)
[2016-12-20] VITALS (9 sets, daily range): BP systolic 102–114; BP diastolic 57–71; PULSE 88–114; RESP 16–20; TEMP 97.8–102.8; O2SAT 90–95
[2016-12-20] MEDS: ACETAMINOPHEN/HYDROcodone 325 MG/5 MG TAB PO PRN (01:19)
[2016-12-20] MEDS: HYDROmorphone HCL PF 1 MG/ML VIAL IV PUSH PRN ×6 (02:45→22:16)
[2016-12-20] MEDS: diphenhydrAMINE HCL 25 MG CAP PO PRN (02:45)
[2016-12-20] MEDS: ACETAMINOPHEN 325 MG TAB PO PRN ×3 (04:02→20:05)
[2016-12-20 04:06] LABS: AUTOMATED NEUTROPHIL # 14.4 TH/MM3 (1.8-7.7); BASOPHIL # 0.2 TH/MM3 (0-0.2); EOSINOPHIL # 0.4 TH/MM3 (0-0.4); LYMPH % 10.7 % (9.0-44.0); LYMPHOCYTE # 2.1 TH/MM3 (1.0-4.8); MEAN CELL VOLUME 82.3 FL (80.0-100.0); MEAN CORPUSCULAR HEMOGLOBIN 29.1 PG (27.0-34.0); MEAN CORPUSCULAR HGB CONC 35.3 % (32.0-36.0); MONO % 13.3 % (0.0-8.0); PLATELET COUNT 324 TH/MM3 (150-450); RED BLOOD COUNT 2.28 MIL/MM3 (4.00-5.30); RED CELL DISTRIBUTION WIDTH 16.7 % (11.6-17.2); WHITE BLOOD COUNT 19.7 TH/MM3 (4.0-11.0)
[2016-12-20 04:11] LABS: HEMO FLAGS AUTO DIFF
[2016-12-20 04:13] LABS: HEMATOCRIT 18.8 % (35.0-46.0)
[2016-12-20 04:28] LABS: BICARBONATE 26.2 MEQ/L (21.0-32.0); POTASSIUM 3.4 MEQ/L (3.5-5.1)
[2016-12-20] MEDS ORDERED: ACETAMINOPHEN 325 MG TAB PO PRN (04:30)
[2016-12-20] MEDS ORDERED: diphenhydrAMINE HCL 25 MG CAP PO PRN (04:30)
[2016-12-20] MEDS ORDERED: SODIUM CHLOR 0.9% 250 ML INJ 250 ML IV ONE (04:30)
--- NOTE | 2016-12-20 04:44 | RADRPT ---
EXAM DATE/TIME: 12/20/2016 03:23 [place] COMPARISON: CHEST SINGLE AP, December 19, 2016, 10:29. INDICATIONS : Congestion. MEDICAL HISTORY : Sickle Cell disease. SURGICAL HISTORY : None. ENCOUNTER: Subsequent ACUITY: 4 - 6 days PAIN SCORE: 0/10 LOCATION: Bilateral chest FINDINGS: A single view of the chest demonstrates the lungs to be symmetrically aerated without evidence of mas s, infiltrate or effusion. Low lung volumes bilaterally. Left sided power port. The cardiomediastinal contours are unremarkable. Osseous structures are intact. CONCLUSION: No acute disease. Cory Garnett Jr., MD on December 20, 2016 at 4:42 Board Certified Radiologist. This report was verified electronically.
[2016-12-20 05:15] LABS: SCAN/DIFF AUTO DIFF CONFIRMED
--- NOTE | 2016-12-20 08:10 | HHI.PR ---
Subjective Remarks in no acute distress. however still with some cough. noted that had a fever spike last night. still with whole body ache. noted a drop in H/H. d/w the RN. Objective Vitals Vital Signs Date Time Temp Pulse Resp B/P Pulse Ox O2 Delivery O2 Flow Rate FiO2 12/20/16 07:33 16 12/20/16 04:00 102.0 114 18 114/64 92 12/20/16 02:44 16 12/20/16 00:00 99.6 99 18 107/57 94 12/19/16 20:59 95 12/19/16 20:00 100.6 111 19 127/74 95 12/19/16 18:40 98.9 106 18 138/72 96 12/19/16 15:53 18 95 Room Air 12/19/16 15:53 103 18 103/74 95 Room Air 12/19/16 14:05 96 21 12/19/16 14:03 97 18 111/62 95 Room Air 12/19/16 13:47 18 99 Room Air 12/19/16 10:12 97.8 118 18 121/72 98 I/O 12/19/16 12/19/16 12/19/16 12/20/16 12/20/16 12/20/16 07:00 15:00 23:00 07:00 15:00 23:00 Intake Total 720 ml 480 ml Balance 720 ml 480 ml Intake Oral 720 ml 480 ml # Voids 1 1 Result Diagram: 12/20/16 0350 12/20/16 0350 Imaging Last Impressions Chest X-Ray 12/20/16 0000 Signed Impressions: Service Date/Time: Tuesday, December 20, 2016 03:23 - CONCLUSION: No acute disease. Cory Garnett Jr., MD Objective Remarks GENERAL: This is a well-nourished, well-developed patient, in no apparent distress. CARDIOVASCULAR: Regular rate and regular rhythm without murmurs, gallops, or rubs. RESPIRATORY: Clear to auscultation. Breath sounds equal bilaterally. No wheezes , rales, or rhonchi. GASTROINTESTINAL: Abdomen soft, non-tender, nondistended. Normal, active bowel sounds MUSCULOSKELETAL: Extremities without clubbing, cyanosis, or edema. NEURO: Alert & Oriented x4 to person, place, time, situation. Moves all ext x4 Procedures none Medications and IVs Current Medications Ondansetron HCl (Zofran Inj) 4 mg ONCE ONCE IVP Last administered on 11:12; Start 12/19/16 at 10:45; Stop 12/19/16 at 10:46; Status DC Sodium Chloride 2 ml 2 ml UNSCH PRN IVF FLUSH AFTER USING IV ACCESS; Start at 10:45 Sodium Chloride (NS 1000 ml Inj) 1,000 ml @ 1,000 mls/hr Q1H ONCE IV Last administered on 12/19/16 11:12; Start 12/19/16 at 10:31; Stop 12/19/16 at 11:30 ; Status DC Hydromorphone HCl (Dilaudid Pf Inj) 1 mg ONCE ONCE IVS Last administered on 11:12; Start 12/19/16 at 10:45; Stop 12/19/16 at 10:46; Status DC Diphenhydramine HCl (Benadryl Inj) 25 mg ONCE ONCE IV Last administered on 11:12; Start 12/19/16 at 10:45; Stop 12/19/16 at 10:46; Status DC Hydromorphone HCl (Dilaudid Pf Inj) 1 mg ONCE ONCE IV PUSH Last administered on 12/19/16 13:22; Start 12/19/16 at 12:30; Stop 12/19/16 at 12:31; Status DC Albuterol Sulfate (Proair Hfa Inh) 2 puff Q6H PRN INH SHORTNESS OF BREATH; Start 12/19/16 at 13:15; Status Cancel Folic Acid (Folate) 5 mg DAILY PO ; Start 12/20/16 at 09:00 Hydroxyurea (Hydrea) 500 mg DAILY PO ; Start 12/20/16 at 09:00 Lisinopril (Prinivil) 2.5 mg DAILY PO ; Start 12/20/16 at 09:00 Metoprolol Succinate (Toprol Xl) 12.5 mg DAILY PO ; Start 12/20/16 at 09:00 Potassium Chloride (KCl) 20 meq ONCE ONCE PO Last administered on 12/19/16 14 :02; Start 12/19/16 at 13:15; Stop 12/19/16 at 13:16; Status DC Miscellaneous (Pill Splitter) 1 ea UNSCH PRN OTHER SEE LABEL COMMENTS; Start at 13:15 Hydromorphone HCl (Dilaudid Pf Inj) 1 mg Q4H PRN IV PUSH PAIN >5 Last administered on 12/20/16 06:31; Start 12/19/16 at 13:30 Acetaminophen/ Hydrocodone Bitart ([place] 5-325 Mg) 1 tab Q4H PRN PO PAIN < 5 Last administered on 12/20/16 01:19; Start 12/19/16 at 13:30 Ondansetron HCl 4 mg 4 mg Q8HR PRN IV PUSH NAUSEA; Start 12/19/16 at 13:30 Sodium Chloride (NS 1000 ml Inj) 1,000 ml @ 75 mls/hr [id number] ONCE IV Last administered on 12/19/16 14:03; Start 12/19/16 at 13:30; Stop 12/20/16 at 02:49 ; Status DC Diphenhydramine HCl 25 mg 25 mg Q6H PRN PO ITCHING Last administered on 02:45; Start 12/19/16 at 13:30 Azithromycin/ Sodium Chloride (Zithromax Inj/ NS 250 ml Inj) 250 ml @ 250 mls/ hr Q24H IV Last administered on 12/19/16 14:03; Start 12/19/16 at 15:00 Albuterol Sulfate (Albuterol Neb) 2.5 mg Q6HR NEB PRN NEB SHORTNESS OF BREATH Last administered on 12/20/16 02:23; Start 12/19/16 at 14:00 Albuterol Sulfate (Ventolin Hfa Inh) 2 puff Q6H PRN INH SHORTNESS OF BREATH; Start 12/19/16 at 14:30 Zolpidem Tartrate (Ambien) 5 mg HS PRN PO SLEEP Last administered on 12/19/16 21:51; Start 12/19/16 at 21:45 Acetaminophen 650 mg 650 mg Q6H PRN PO fever > 100.4 Last administered on 04:02; Start 12/20/16 at 03:30 Sodium Chloride (NS 250 ml Inj) 250 ml @ 15 mls/hr ONCE ONCE IV Last administered on 12/20/16 04:30; Start 12/20/16 at 04:30; Stop 12/20/16 at 21:09 Acetaminophen (Tylenol) 650 mg Q4H PRN PO SEE LABEL COMMENTS; Start 12/20/16 at 04:30; Stop 12/20/16 at 08:31 Diphenhydramine HCl (Benadryl) 25 mg Q4H PRN PO SEE LABEL COMMENTS; Start 12/20 at 04:30; Stop 12/20/16 at 08:31 A/P Assessment and Plan A/P - sickle cell painful crisis continue with pain control- resumed folic acid and hydroxyurea- cautious IV hydration in light of her cardiomyopathy -acute on chronic anemia; will transfuse with one unit of PRBC- continue to monitor. -acute bronchitis; continue neb treatment and Zithromax- oxygen as needed to keep O2 sat > 90%. -fever spike; likely due to bronchitis- repeated CXR with no acute disease- negative for flu- blood cultures pending. -cardiomyopathy; resumed home meds -mild hypokalemia; replaced. -DVT prophylaxis with Lovenox Bernardo Orozco MD Dec 20, 2016 08:10
[2016-12-20] MEDS ORDERED: POTASSIUM CHLORIDE 10 MEQ CONTROLLED RELEASE TAB PO ONE (09:00)
[2016-12-20] MEDS: LISINOPRIL 5 MG TAB PO SCH (09:10)
[2016-12-20] MEDS: HYDROXYUREA 500 MG CAP PO SCH (09:10)
[2016-12-20] MEDS: METOPROLOL SUCCINATE 25 MG EXTENDED RELEASE TAB PO SCH (09:11)
[2016-12-20] MEDS: FOLIC ACID 1 MG TAB PO SCH (09:11)
[2016-12-20] MEDS: diphenhydrAMINE HCL 50 MG/ML VIAL IV PUSH PRN ×2 (14:39→22:16)
[2016-12-20] MEDS: AZITHROMYCIN INJ 500 MG in SODIUM CHLOR 0.9% 250 ML INJ 250 ML IV SCH (15:00)
[2016-12-20] MEDS: ZOLPIDEM TARTRATE 5 MG TAB PO PRN (22:16)
[2016-12-21] VITALS (9 sets, daily range): BP systolic 104–114; BP diastolic 54–70; PULSE 101–180; RESP 18–20; TEMP 98.4–101.6; O2SAT 93–95
[2016-12-21 00:06] LABS: BLOOD, URINE NEG (NEG); COMMENT (UR) CULT NOT INDICATED; CULTURE IF INDICATED CULT NOT INDICATED; GLUCOSE,URINE NEG (NEG); KETONE, URINE NEG (NEG); MUCUS URINE FEW /lpf (OCC); NITRITE,URINE NEG (NEG); PH, URINE 6.5 (5.0-8.5); SQUAMOUS EPITHELIAL CELL URINE 2 /hpf (0-5); URINE COLOR YELLOW (YELLW/STRAW)
[2016-12-21] MEDS: HYDROmorphone HCL PF 1 MG/ML VIAL IV PUSH PRN ×6 (02:14→21:55)
[2016-12-21] MEDS: ACETAMINOPHEN 325 MG TAB PO PRN (05:16)
[2016-12-21 06:07] LABS: AUTOMATED NEUTROPHIL # 10.8 TH/MM3 (1.8-7.7); BASOPHIL # 0.2 TH/MM3 (0-0.2); BASOPHIL % 1.2 % (0.0-2.0); EOSINOPHIL # 0.9 TH/MM3 (0-0.4); EOSINOPHIL % 4.9 % (0.0-4.0); HEMATOCRIT 22.4 % (35.0-46.0); LYMPH % 19.7 % (9.0-44.0); LYMPHOCYTE # 3.5 TH/MM3 (1.0-4.8); MEAN CELL VOLUME 81.9 FL (80.0-100.0); MEAN CORPUSCULAR HEMOGLOBIN 28.6 PG (27.0-34.0); NEUT % 60.2 % (16.0-70.0); PLATELET COUNT 335 TH/MM3 (150-450); RED BLOOD COUNT 2.74 MIL/MM3 (4.00-5.30); RED CELL DISTRIBUTION WIDTH 17.5 % (11.6-17.2); WHITE BLOOD COUNT 17.9 TH/MM3 (4.0-11.0)
[2016-12-21] MEDS: diphenhydrAMINE HCL 50 MG/ML VIAL IV PUSH PRN ×3 (06:07→21:55)
[2016-12-21 06:37] LABS: HEMO FLAGS AUTO DIFF
[2016-12-21] MEDS ORDERED: SODIUM CHLOR 0.9% 1000 ML INJ 1,000 ML IV ONE (08:30)
[2016-12-21] MEDS ORDERED: guaiFENesin SOLUTION 200 MG/10 ML CUP PO PRN (08:30)
--- NOTE | 2016-12-21 08:30 | HHI.PR ---
Subjective Remarks still febrile; Tmax 102.8. has some productive cough of yellowish sputum. generalized body ache hasn't changed as much. d/w the RN. Objective Vitals Vital Signs Date Time Temp Pulse Resp B/P Pulse Ox O2 Delivery O2 Flow Rate FiO2 12/21/16 05:25 100.7 12/21/16 04:00 101.6 109 19 104/63 93 12/21/16 00:00 99.3 101 18 114/67 94 12/20/16 22:00 99.6 12/20/16 21:32 21 12/20/16 21:32 21 12/20/16 20:00 102.8 110 18 114/68 94 12/20/16 20:00 112 12/20/16 18:09 88 12/20/16 17:10 18 12/20/16 16:00 99.4 99 18 102/71 92 12/20/16 12:00 100.4 98 20 105/64 94 12/20/16 08:43 95 21 I/O 12/20/16 12/20/16 12/20/16 12/21/16 12/21/16 12/21/16 07:00 15:00 23:00 07:00 15:00 23:00 Intake Total 480 ml 1234 ml 720 ml 720 ml Output Total 1000 ml 1700 ml 1200 ml Balance 480 ml 234 ml -980 ml -480 ml Intake Oral 480 ml 840 ml 720 ml 720 ml IV Total 144 ml Packed Cells 250 ml Output Urine Total 1000 ml 1700 ml 1200 ml # Voids 1 3 Result Diagram: 12/21/16 0515 12/20/16 0350 Imaging Last Impressions Chest X-Ray 12/20/16 0000 Signed Impressions: Service Date/Time: Tuesday, December 20, 2016 03:23 - CONCLUSION: No acute disease. Cory Garnett Jr., MD Objective Remarks GENERAL: This is a well-nourished, well-developed patient, in no apparent distress. CARDIOVASCULAR: Regular rate and regular rhythm without murmurs, gallops, or rubs. RESPIRATORY: Clear to auscultation. Breath sounds equal bilaterally. No wheezes , rales, or rhonchi. GASTROINTESTINAL: Abdomen soft, non-tender, nondistended. Normal, active bowel sounds MUSCULOSKELETAL: Extremities without clubbing, cyanosis, or edema. NEURO: Alert & Oriented x4 to person, place, time, situation. Moves all ext x4 Procedures none Medications and IVs Current Medications Ondansetron HCl (Zofran Inj) 4 mg ONCE ONCE IVP Last administered on 11:12; Start 12/19/16 at 10:45; Stop 12/19/16 at 10:46; Status DC Sodium Chloride 2 ml 2 ml UNSCH PRN IVF FLUSH AFTER USING IV ACCESS; Start at 10:45 Sodium Chloride (NS 1000 ml Inj) 1,000 ml @ 1,000 mls/hr Q1H ONCE IV Last administered on 12/19/16 11:12; Start 12/19/16 at 10:31; Stop 12/19/16 at 11:30 ; Status DC Hydromorphone HCl (Dilaudid Pf Inj) 1 mg ONCE ONCE IVS Last administered on 11:12; Start 12/19/16 at 10:45; Stop 12/19/16 at 10:46; Status DC Diphenhydramine HCl (Benadryl Inj) 25 mg ONCE ONCE IV Last administered on 11:12; Start 12/19/16 at 10:45; Stop 12/19/16 at 10:46; Status DC Hydromorphone HCl (Dilaudid Pf Inj) 1 mg ONCE ONCE IV PUSH Last administered on 12/19/16 13:22; Start 12/19/16 at 12:30; Stop 12/19/16 at 12:31; Status DC Albuterol Sulfate (Proair Hfa Inh) 2 puff Q6H PRN INH SHORTNESS OF BREATH; Start 12/19/16 at 13:15; Status Cancel Folic Acid (Folate) 5 mg DAILY PO Last administered on 12/20/16 09:11; Start 12/20/16 at 09:00 Hydroxyurea (Hydrea) 500 mg DAILY PO Last administered on 12/20/16 09:10; Start 12/20/16 at 09:00 Lisinopril (Prinivil) 2.5 mg DAILY PO Last administered on 12/20/16 09:10; Start 12/20/16 at 09:00 Metoprolol Succinate (Toprol Xl) 12.5 mg DAILY PO Last administered on 09:11; Start 12/20/16 at 09:00 Potassium Chloride (KCl) 20 meq ONCE ONCE PO Last administered on 12/19/16 14 :02; Start 12/19/16 at 13:15; Stop 12/19/16 at 13:16; Status DC Miscellaneous (Pill Splitter) 1 ea UNSCH PRN OTHER SEE LABEL COMMENTS; Start at 13:15 Hydromorphone HCl (Dilaudid Pf Inj) 1 mg Q4H PRN IV PUSH PAIN >5 Last administered on 12/21/16 06:08; Start 12/19/16 at 13:30 Acetaminophen/ Hydrocodone Bitart ([place] 5-325 Mg) 1 tab Q4H PRN PO PAIN < 5 Last administered on 12/20/16 01:19; Start 12/19/16 at 13:30 Ondansetron HCl 4 mg 4 mg Q8HR PRN IV PUSH NAUSEA Last administered on 14:39; Start 12/19/16 at 13:30 Sodium Chloride (NS 1000 ml Inj) 1,000 ml @ 75 mls/hr [id number] ONCE IV Last administered on 12/19/16 14:03; Start 12/19/16 at 13:30; Stop 12/20/16 at 02:49 ; Status DC Diphenhydramine HCl 25 mg 25 mg Q6H PRN PO ITCHING Last administered on 02:45; Start 12/19/16 at 13:30; Stop 12/20/16 at 08:14; Status DC Azithromycin/ Sodium Chloride (Zithromax Inj/ NS 250 ml Inj) 250 ml @ 250 mls/ hr Q24H IV Last administered on 12/20/16 15:00; Start 12/19/16 at 15:00 Albuterol Sulfate (Albuterol Neb) 2.5 mg Q6HR NEB PRN NEB SHORTNESS OF BREATH Last administered on 12/20/16 02:23; Start 12/19/16 at 14:00 Albuterol Sulfate (Ventolin Hfa Inh) 2 puff Q6H PRN INH SHORTNESS OF BREATH; Start 12/19/16 at 14:30 Zolpidem Tartrate (Ambien) 5 mg HS PRN PO SLEEP Last administered on 12/20/16 22:16; Start 12/19/16 at 21:45 Acetaminophen 650 mg 650 mg Q6H PRN PO fever > 100.4 Last administered on 05:16; Start 12/20/16 at 03:30 Sodium Chloride (NS 250 ml Inj) 250 ml @ 15 mls/hr ONCE ONCE IV Last administered on 12/20/16 04:30; Start 12/20/16 at 04:30; Stop 12/20/16 at 21:09 ; Status DC Acetaminophen (Tylenol) 650 mg Q4H PRN PO SEE LABEL COMMENTS; Start 12/20/16 at 04:30; Stop 12/20/16 at 08:31; Status DC Diphenhydramine HCl (Benadryl) 25 mg Q4H PRN PO SEE LABEL COMMENTS; Start 12/20 at 04:30; Stop 12/20/16 at 08:31; Status DC Potassium Chloride (KCl) 30 meq ONCE ONCE PO Last administered on 12/20/16 09 :08; Start 12/20/16 at 09:00; Stop 12/20/16 at 09:01; Status DC Diphenhydramine HCl (Benadryl Inj) 25 mg Q8H PRN IV PUSH ITCHING Last administered on 12/21/16 06:07; Start 12/20/16 at 08:15 A/P Assessment and Plan A/P - sickle cell painful crisis continue with pain control- resumed folic acid and hydroxyurea- cautious IV hydration in light of her cardiomyopathy -acute on chronic anemia; transfused with one unit of PRBC-H/H improved. continue to monitor. -sepsis likely due to pneumonia; continue neb treatment and Zithromax- will add Rocephin- oxygen as needed to keep O2 sat > 90%. follow the blood and sputum cultures- will continue to monitor temps. -cardiomyopathy; resumed home meds -mild hypokalemia; replaced. -DVT prophylaxis with Lovenox Bernardo Orozco MD Dec 21, 2016 08:30
[2016-12-21] MEDS ORDERED: Vancomycin Consult Pharmacy 1 EA OTHER SCH (09:00)
[2016-12-21] MEDS ORDERED: cefTRIAXone INJ 1,000 MG in SODIUM CHLORIDE 0.9% INJ 100 ML IV SCH (09:00)
[2016-12-21 09:30] LABS: BANDS 10 % (0-6); BASOPHILS 1 % (0-2); EOSINOPHILS 7 % (0-4); NEUTROPHIL # MANUAL DIFF 11.6 TH/MM3 (1.8-7.7); POLYS (SEG NEUTROPHILS) 55 % (16-70); WBC DIFF SAMPLE 100
[2016-12-21 09:32] LABS: PLATELET ESTIMATE SMEAR NORMAL (NORMAL); PLATELET MORPHOLOGY NORMAL (NORMAL); SCAN/DIFF FINAL DIFF MANUAL; SICKLE CELLS 1+ (NORMAL)
[2016-12-21] MEDS: FOLIC ACID 1 MG TAB PO SCH (10:06)
[2016-12-21] MEDS: METOPROLOL SUCCINATE 25 MG EXTENDED RELEASE TAB PO SCH (10:07)
[2016-12-21] MEDS: LISINOPRIL 5 MG TAB PO SCH (10:07)
[2016-12-21] MEDS: HYDROXYUREA 500 MG CAP PO SCH (10:09)
[2016-12-21] MEDS ORDERED: VANCOMYCIN INJ 1,250 MG in SODIUM CHLOR 0.9% 250 ML INJ 250 ML IV SCH (11:00)
--- NOTE | 2016-12-21 12:41 | PD.CONS ---
History of Present Illness Service Infectious disease Consult Requested By Dr Orozco Reason for Consult Evaluate patient with positive blood culture Primary Care Physician No Primary Care Physician Diagnoses: History of Present Illness Patient seen and examined. Records reviewed. Patient is a 26-year-old female, with known sickle cell disease, admitted to the hospital complaining of 2 day history of diffuse body ache. Patient also has a dry hacking cough with very minimal sputum production. She denies any chest pain. She has not had any nausea, vomiting, or any urinary complaints. Patient since admission has been having fevers up to 101+. She is currently still complaining of diffuse body aches. There are 2 blood cultures done in the emergency room, and one of the culture is now reported as growing Enterococcus faecalis. Her urinalysis is normal. Chest x-ray normal. Patient was recently hospitalized November 18 2 November 24 with similar complaints. She had 2 blood cultures done during that admission and the grew Enterococcus faecalis. Her chest x-ray was normal at that time. She was on IV Zosyn, and when she was discharge, it's unclear whether she had any prescription for any antibiotic. Patient has an [id number], and has had problem with bacteremia which were felt to be related to her port, and she was treated with antibiotic plus removal of the port. The last time she had bacteremia was back in 2014, and she had removal of the port, then placement of a new [id number]. Patient states that she has not had any problem with the port as far as blood draw and infusion. She denies any tenderness, or any swelling at the site. Infectious disease consultation has been requested to evaluate the patient with positive blood culture. Review of Systems Constitutional: COMPLAINS OF: Fever, Chills Eyes: DENIES: Eye pain Ears, nose, mouth, throat: DENIES: Nasal discharge, Oral lesions, Throat pain, Running Nose, Sinus Pain, Toothache Respiratory: COMPLAINS OF: Cough, DENIES: Hemoptysis, Sputum production, Shortness of breath Cardiovascular: DENIES: Chest pain, Palpitations, Syncope Gastrointestinal: DENIES: Abdominal pain, Diarrhea, Nausea, Vomiting Genitourinary: DENIES: Urinary frequency, Dysuria Musculoskeletal: COMPLAINS OF: Joint pain, Muscle aches Integumentary: DENIES: Pruritus, Rash Immunologic/allergic: DENIES: Urticaria Neurologic: DENIES: Headache Psychiatric: DENIES: Confusion Past Family Social History Allergies: Coded Allergies: Percocet (Verified Adverse Reaction, Severe, Nausea/Vomiting, 12/19/16) AND ITCHING *MDRO Multi-Drug Resistant Organism (Verified Adverse Reaction, Unknown, Cleared 02/08/15, 12/19/16) MRSA (Chest Wound) - 02/2012 MRSA PCR Screen negative 02/06/15 and 02/08/15. Cleared per Infection Control Past Medical History Sickle cell Asthma Congestive heart failure Port infection Past Surgical History [id number] insertion and removal 2, last placement 2014 Cholecystectomy Active Ordered Medications Tylenol prn [place] prn Albuterol Zithromax Rocephin Benadryl prn Folate acid Robitussin prn Dilaudid prn Hydroxyurea Prinivil Toprol Zofran prn Vancomycin Ambien prn Social History Reports occasional alcohol use Denies tobacco use Denies illicit drug use Physical Exam Vital Signs Vital Signs Date Time Temp Pulse Resp B/P Pulse Ox O2 Delivery O2 Flow Rate FiO2 12/21/16 08:42 93 Nasal Cannula 2.00 12/21/16 07:50 98.4 103 20 104/57 93 12/21/16 05:25 100.7 12/21/16 04:00 101.6 109 19 104/63 93 12/21/16 00:00 99.3 101 18 114/67 94 12/20/16 22:00 99.6 12/20/16 21:32 21 12/20/16 21:32 21 12/20/16 20:00 102.8 110 18 114/68 94 12/20/16 20:00 112 12/20/16 18:09 88 12/20/16 17:10 18 12/20/16 16:00 99.4 99 18 102/71 92 Physical Exam GENERAL: This is a well-nourished, well-developed BF, awake and alert, in no apparent distress. SKIN: Warm and dry, no generalized rash or ecchymosis. No evidence of peripheral embolic lesions. HEAD: Atraumatic. Normocephalic. No temporal or scalp tenderness. EYES: [place] conjunctiva, no petechia or hemorrhage. Pupils equal round and reactive. Extraocular motions intact. No scleral icterus. No injection or drainage. ENT: Nose without bleeding, or purulent drainage. Moist oral mucosa. No oral thrush. Throat without erythema, or exudate. Uvula midline. Airway patent. NECK: Trachea midline. No JVD or lymphadenopathy. Supple, nontender, no meningeal signs. CARDIOVASCULAR: Regular rate and rhythm without murmurs, gallops, or rubs. Port in right upper chest with no swelling, redness or tenderness. RESPIRATORY: Clear to auscultation. Breath sounds equal bilaterally. No wheezes , rales. Has occasional rhonchi. GASTROINTESTINAL: Abdomen soft, non-tender, nondistended. Bowel sounds are present and normoactive. No hepato-splenomegaly, or palpable masses. No guarding. MUSCULOSKELETAL: Extremities without clubbing, cyanosis, or edema. No joint effusion, or edema noted. Good range of motion. No calf tenderness. NEUROLOGICAL: Awake and alert. Cranial nerves II through XII intact. Motor and sensory grossly within normal limits. Five out of 5 muscle strength in all muscle groups. Normal speech. PSYCH: No delusions, gets easily irritated with the whole interview and exam LINE: Port without evidence of infection Laboratory Laboratory Tests Test 12/20/16 12/21/16 22:20 05:15 Urine Color YELLOW Urine Turbidity CLEAR Urine pH 6.5 Urine Specific [place] 1.009 Urine Protein NEG Urine Glucose (UA) NEG Urine Ketones NEG Urine Occult Blood NEG Urine Nitrite NEG Urine Bilirubin NEG Urine Urobilinogen LESS THAN 2.0 Urine Leukocyte Esterase NEG Urine WBC 4 Urine Squamous Epithelial 2 Cells Urine Mucus FEW Microscopic Urinalysis Comment CULT NOT INDICATED White Blood Count 17.9 Red Blood Count 2.74 Hemoglobin 7.8 Hematocrit 22.4 Mean Corpuscular Volume 81.9 Mean Corpuscular Hemoglobin 28.6 Mean Corpuscular Hemoglobin 35.0 Concent Red Cell Distribution Width 17.5 Platelet Count 335 Mean Platelet Volume 8.3 Neutrophils (%) (Auto) 60.2 Lymphocytes (%) (Auto) 19.7 Monocytes (%) (Auto) 14.0 Eosinophils (%) (Auto) 4.9 Basophils (%) (Auto) 1.2 Neutrophils # (Auto) 10.8 Lymphocytes # (Auto) 3.5 Monocytes # (Auto) 2.5 Eosinophils # (Auto) 0.9 Basophils # (Auto) 0.2 CBC Comment AUTO DIFF Differential Total Cells 100 Counted Neutrophils % (Manual) 55 Band Neutrophils % 10 Lymphocytes % 16 Monocytes % 11 Eosinophils % 7 Basophils % 1 Neutrophils # (Manual) 11.6 Differential Comment FINAL DIFF MANUAL Platelet Estimate NORMAL Platelet Morphology Comment NORMAL Sickle Cells 1+ Red Cell Morphology Comment Date/Time Procedure Status Source Growth 12/21/16 05:15 Gram Stain Received Sputum Expectorated Sputum Pending 12/21/16 05:15 Sputum Culture Received Sputum Expectorated Sputum Pending 12/20/16 05:55 Aerobic Blood Culture - Preliminary Resulted Blood Peripheral Enterococcus Faecalis 12/20/16 05:55 Anaerobic Blood Culture - Preliminary Resulted Gram Positive Cocci 12/19/16 17:12 Influenza Types A,B Antigen (ALO) - Final Complete Nasal Washing NEGATIVE FOR FLU A AND B ANTIGEN.... Result Diagram: 12/21/16 0515 12/20/16 0350 Imaging RADIOLOGY STUDIES/FILMS REVIEWED Last Impressions Chest X-Ray 12/20/16 0000 Signed Impressions: Service Date/Time: Tuesday, December 20, 2016 03:23 - CONCLUSION: No acute disease. Cory Garnett Jr., MD Assessment and Plan Assessment and Plan IMPRESSION Recurrent Enterococcal bacteremia, very suspicious for port infection - R/O endocarditis Sickle cell crisis Cough, due to astham, bronchitis - CXR clear RECOMMENDATION Repeat BC: from port and line Echo Change pulmonary coverage to Levaquin Follow C/S Monitor temps IV PCN Will make further recommendations when work-up completed I will follow along with you Thank you for this consultation Lizbet Monte MD Dec 21, 2016 12:41
[2016-12-21] MEDS: LEVOFLOXACIN 750 MG TAB PO SCH (14:16)
[2016-12-21] MEDS: PENICILLIN G POTASSIUM INJ 3,000,000 UNITS in SODIUM CHLORIDE 0.9% INJ 100 ML IV SCH ×3 (14:25→21:55)
[2016-12-21] MEDS: ZOLPIDEM TARTRATE 5 MG TAB PO PRN (21:55)
[2016-12-22] VITALS (9 sets, daily range): BP systolic 100–117; BP diastolic 57–61; PULSE 82–107; RESP 16–19; TEMP 97.5–99.9; O2SAT 94–100
[2016-12-22] MEDS: PENICILLIN G POTASSIUM INJ 3,000,000 UNITS in SODIUM CHLORIDE 0.9% INJ 100 ML IV SCH ×6 (01:55→22:16)
[2016-12-22] MEDS: HYDROmorphone HCL PF 1 MG/ML VIAL IV PUSH PRN ×6 (01:55→22:16)
[2016-12-22] MEDS: diphenhydrAMINE HCL 50 MG/ML VIAL IV PUSH PRN ×3 (05:54→22:16)
[2016-12-22 06:39] LABS: BASOPHIL # 0.2 TH/MM3 (0-0.2); BASOPHIL % 1.4 % (0.0-2.0); EOSINOPHIL # 1.3 TH/MM3 (0-0.4); EOSINOPHIL % 9.7 % (0.0-4.0); LYMPH % 21.5 % (9.0-44.0); LYMPHOCYTE # 2.9 TH/MM3 (1.0-4.8); MEAN CELL VOLUME 82.9 FL (80.0-100.0); MONO % 15.1 % (0.0-8.0); NEUT % 52.3 % (16.0-70.0); PLATELET COUNT 293 TH/MM3 (150-450); RED BLOOD COUNT 2.47 MIL/MM3 (4.00-5.30); RED CELL DISTRIBUTION WIDTH 17.6 % (11.6-17.2); WHITE BLOOD COUNT 13.3 TH/MM3 (4.0-11.0)
[2016-12-22 06:45] LABS: HEMATOCRIT 20.4 % (35.0-46.0); HEMO FLAGS DIFF FINAL
--- NOTE | 2016-12-22 08:28 | HHI.PR ---
Subjective Remarks no fever today; Tmax 100.5. says that her sob has improved a little but still with cough. pain hasn't improved as much. Objective Vitals Vital Signs Date Time Temp Pulse Resp B/P Pulse Ox O2 Delivery O2 Flow Rate FiO2 12/22/16 04:00 98.2 94 19 113/59 94 12/22/16 00:00 99.9 107 19 116/58 96 12/21/16 20:49 95 Nasal Cannula 2.00 12/21/16 20:00 100.1 107 18 112/54 95 12/21/16 15:50 100.5 106 20 114/64 94 12/21/16 11:50 99.2 180 20 104/70 94 12/21/16 08:42 93 Nasal Cannula 2.00 I/O 12/21/16 12/21/16 12/21/16 12/22/16 12/22/16 12/22/16 07:00 15:00 23:00 07:00 15:00 23:00 Intake Total 720 ml 540 ml 1596 ml 1278 ml Output Total 1200 ml 500 ml 1150 ml 1250 ml Balance -480 ml 40 ml 446 ml 28 ml Intake Oral 720 ml 540 ml 720 ml 480 ml IV Total 876 ml 798 ml Output Urine Total 1200 ml 500 ml 1150 ml 1250 ml # Bowel Movements 0 Result Diagram: 12/22/16 0555 12/20/16 0350 Imaging Last Impressions Chest X-Ray 12/20/16 0000 Signed Impressions: Service Date/Time: Tuesday, December 20, 2016 03:23 - CONCLUSION: No acute disease. Cory Garnett Jr., MD Objective Remarks GENERAL: This is a well-nourished, well-developed patient, in no apparent distress. CARDIOVASCULAR: Regular rate and regular rhythm without murmurs, gallops, or rubs. RESPIRATORY: Clear to auscultation. Breath sounds equal bilaterally. No wheezes , rales, or rhonchi. GASTROINTESTINAL: Abdomen soft, non-tender, nondistended. Normal, active bowel sounds MUSCULOSKELETAL: Extremities without clubbing, cyanosis, or edema. NEURO: Alert & Oriented x4 to person, place, time, situation. Moves all ext x4 Procedures none Medications and IVs Current Medications Ondansetron HCl (Zofran Inj) 4 mg ONCE ONCE IVP Last administered on 11:12; Start 12/19/16 at 10:45; Stop 12/19/16 at 10:46; Status DC Sodium Chloride 2 ml 2 ml UNSCH PRN IVF FLUSH AFTER USING IV ACCESS; Start at 10:45 Sodium Chloride (NS 1000 ml Inj) 1,000 ml @ 1,000 mls/hr Q1H ONCE IV Last administered on 12/19/16 11:12; Start 12/19/16 at 10:31; Stop 12/19/16 at 11:30 ; Status DC Hydromorphone HCl (Dilaudid Pf Inj) 1 mg ONCE ONCE IVS Last administered on 11:12; Start 12/19/16 at 10:45; Stop 12/19/16 at 10:46; Status DC Diphenhydramine HCl (Benadryl Inj) 25 mg ONCE ONCE IV Last administered on 11:12; Start 12/19/16 at 10:45; Stop 12/19/16 at 10:46; Status DC Hydromorphone HCl (Dilaudid Pf Inj) 1 mg ONCE ONCE IV PUSH Last administered on 12/19/16 13:22; Start 12/19/16 at 12:30; Stop 12/19/16 at 12:31; Status DC Albuterol Sulfate (Proair Hfa Inh) 2 puff Q6H PRN INH SHORTNESS OF BREATH; Start 12/19/16 at 13:15; Status Cancel Folic Acid (Folate) 5 mg DAILY PO Last administered on 12/21/16 10:06; Start 12/20/16 at 09:00 Hydroxyurea (Hydrea) 500 mg DAILY PO Last administered on 12/21/16 10:09; Start 12/20/16 at 09:00 Lisinopril (Prinivil) 2.5 mg DAILY PO Last administered on 12/21/16 10:07; Start 12/20/16 at 09:00 Metoprolol Succinate (Toprol Xl) 12.5 mg DAILY PO Last administered on 10:07; Start 12/20/16 at 09:00 Potassium Chloride (KCl) 20 meq ONCE ONCE PO Last administered on 12/19/16 14 :02; Start 12/19/16 at 13:15; Stop 12/19/16 at 13:16; Status DC Miscellaneous (Pill Splitter) 1 ea UNSCH PRN OTHER SEE LABEL COMMENTS; Start at 13:15 Hydromorphone HCl (Dilaudid Pf Inj) 1 mg Q4H PRN IV PUSH PAIN >5 Last administered on 12/22/16 05:54; Start 12/19/16 at 13:30 Acetaminophen/ Hydrocodone Bitart ([place] 5-325 Mg) 1 tab Q4H PRN PO PAIN < 5 Last administered on 12/20/16 01:19; Start 12/19/16 at 13:30 Ondansetron HCl 4 mg 4 mg Q8HR PRN IV PUSH NAUSEA Last administered on 14:39; Start 12/19/16 at 13:30 Sodium Chloride (NS 1000 ml Inj) 1,000 ml @ 75 mls/hr [id number] ONCE IV Last administered on 12/19/16 14:03; Start 12/19/16 at 13:30; Stop 12/20/16 at 02:49 ; Status DC Diphenhydramine HCl 25 mg 25 mg Q6H PRN PO ITCHING Last administered on 02:45; Start 12/19/16 at 13:30; Stop 12/20/16 at 08:14; Status DC Azithromycin/ Sodium Chloride (Zithromax Inj/ NS 250 ml Inj) 250 ml @ 250 mls/ hr Q24H IV Last administered on 12/20/16 15:00; Start 12/19/16 at 15:00; Stop 12/21/16 at 12:59; Status DC Albuterol Sulfate (Albuterol Neb) 2.5 mg Q6HR NEB PRN NEB SHORTNESS OF BREATH Last administered on 12/20/16 02:23; Start 12/19/16 at 14:00 Albuterol Sulfate (Ventolin Hfa Inh) 2 puff Q6H PRN INH SHORTNESS OF BREATH; Start 12/19/16 at 14:30 Zolpidem Tartrate (Ambien) 5 mg HS PRN PO SLEEP Last administered on 12/21/16 21:55; Start 12/19/16 at 21:45 Acetaminophen 650 mg 650 mg Q6H PRN PO fever > 100.4 Last administered on 05:16; Start 12/20/16 at 03:30 Sodium Chloride (NS 250 ml Inj) 250 ml @ 15 mls/hr ONCE ONCE IV Last administered on 12/20/16 04:30; Start 12/20/16 at 04:30; Stop 12/20/16 at 21:09 ; Status DC Acetaminophen (Tylenol) 650 mg Q4H PRN PO SEE LABEL COMMENTS; Start 12/20/16 at 04:30; Stop 12/20/16 at 08:31; Status DC Diphenhydramine HCl (Benadryl) 25 mg Q4H PRN PO SEE LABEL COMMENTS; Start 12/20 at 04:30; Stop 12/20/16 at 08:31; Status DC Potassium Chloride (KCl) 30 meq ONCE ONCE PO Last administered on 12/20/16 09 :08; Start 12/20/16 at 09:00; Stop 12/20/16 at 09:01; Status DC Diphenhydramine HCl 25 mg 25 mg Q8H PRN IV PUSH ITCHING Last administered on 05:54; Start 12/20/16 at 08:15 Ceftriaxone Sodium 1000 mg/ Sodium Chloride 100 ml @ 200 mls/hr Q24H IV Last administered on 12/21/16 10:17; Start 12/21/16 at 09:00; Stop 12/21/16 at 12:59 ; Status DC Sodium Chloride (NS 1000 ml Inj) 1,000 ml @ 50 mls/hr Q20H ONCE IV Last administered on 12/21/16 08:30; Start 12/21/16 at 08:30; Stop 12/22/16 at 04:29 ; Status DC Guaifenesin 200 mg 200 mg Q4H PRN PO COUGH; Start 12/21/16 at 08:30 Pharmacy Profile Note 0 ml @ 0 mls/hr UNSCH OTHER ; Start 12/21/16 at 09:00; Stop 12/21/16 at 13:00; Status DC Vancomycin HCl/ Sodium Chloride (Vancomycin Inj/ NS 250 ml Inj) 262.5 ml @ 250 mls/hr Q12H IV Last administered on 12/21/16 10:58; Start 12/21/16 at 11:00; Stop 12/21/16 at 13:00; Status DC Miscellaneous Information SPECIFIC LAB TO BE ... ONCE ONCE .XX ; Start 12/22 at 22:45; Stop 12/22/16 at 22:46; Status Cancel Levofloxacin 750 mg 750 mg DAILY PO Last administered on 12/21/16 14:16; Start 12/21/16 at 14:00 Penicillin G Potassium/Sodium Chloride (Pfizerpen-G Inj/ NS Inj) 100 ml @ 100 mls/hr Q4H IV Last administered on 12/22/16 05:54; Start 12/21/16 at 15:00 A/P Assessment and Plan A/P - sickle cell painful crisis continue with pain control- resumed folic acid and hydroxyurea- cautious IV hydration in light of her cardiomyopathy. will consult hematology. -bacteremia with E.Faecalis- started on penicillin G- echo ordered- ID consult appreciated. -acute on chronic anemia; transfused with one unit of PRBC-H/H fairly stable. continue to monitor. -sepsis likely due to pneumonia; continue neb treatment. started on levaquin- oxygen as needed to keep O2 sat > 90%. follow the blood and sputum cultures- will continue to monitor temps.ID following. -cardiomyopathy; resumed home meds -mild hypokalemia; replaced. -DVT prophylaxis with LoveBernardo Taylor MD Dec 22, 2016 08:28
[2016-12-22] MEDS: FOLIC ACID 1 MG TAB PO SCH (10:22)
[2016-12-22] MEDS: HYDROXYUREA 500 MG CAP PO SCH (10:22)
[2016-12-22] MEDS: LISINOPRIL 5 MG TAB PO SCH (10:23)
[2016-12-22] MEDS: LEVOFLOXACIN 750 MG TAB PO SCH (10:23)
[2016-12-22] MEDS: METOPROLOL SUCCINATE 25 MG EXTENDED RELEASE TAB PO SCH (10:23)
[2016-12-22] MEDS: ZOLPIDEM TARTRATE 5 MG TAB PO PRN (22:16)
[2016-12-22] MEDS ORDERED: PHARMACY ORDERED LAB ONE (22:45)
[2016-12-23] VITALS (7 sets, daily range): BP systolic 113–126; BP diastolic 66–81; PULSE 71–97; RESP 16–18; TEMP 97.4–98.5; O2SAT 94–98
[2016-12-23] MEDS: HYDROmorphone HCL PF 1 MG/ML VIAL IV PUSH PRN ×6 (01:56→22:08)
[2016-12-23] MEDS: PENICILLIN G POTASSIUM INJ 3,000,000 UNITS in SODIUM CHLORIDE 0.9% INJ 100 ML IV SCH ×6 (01:57→22:08)
[2016-12-23] MEDS: diphenhydrAMINE HCL 50 MG/ML VIAL IV PUSH PRN ×3 (05:49→22:07)
[2016-12-23 06:13] LABS: AUTOMATED NEUTROPHIL # 6.4 TH/MM3 (1.8-7.7); BASOPHIL # 0.1 TH/MM3 (0-0.2); BASOPHIL % 0.9 % (0.0-2.0); EOSINOPHIL # 1.2 TH/MM3 (0-0.4); EOSINOPHIL % 8.8 % (0.0-4.0); LYMPH % 30.9 % (9.0-44.0); LYMPHOCYTE # 4.1 TH/MM3 (1.0-4.8); MEAN CELL VOLUME 82.1 FL (80.0-100.0); MEAN CORPUSCULAR HEMOGLOBIN 28.7 PG (27.0-34.0); MONO % 11.4 % (0.0-8.0); PLATELET COUNT 336 TH/MM3 (150-450); RED CELL DISTRIBUTION WIDTH 17.9 % (11.6-17.2); WHITE BLOOD COUNT 13.2 TH/MM3 (4.0-11.0)
[2016-12-23 06:14] LABS: RETIC % 6.8 % (0.4-3.0)
[2016-12-23 06:23] LABS: HEMATOCRIT 20.5 % (35.0-46.0); HEMO FLAGS AUTO DIFF
[2016-12-23 06:24] LABS: REVIEW FLAG FINAL
[2016-12-23 06:43] LABS: BICARBONATE 26.8 MEQ/L (21.0-32.0); INDIRECT BILIRUBIN 0.9 MG/DL (0.0-0.8); POTASSIUM 3.7 MEQ/L (3.5-5.1); TOTAL BILIRUBIN ADULT 1.2 MG/DL (0.2-1.0)
[2016-12-23 08:08] LABS: BANDS 9 % (0-6); BASOPHILS 1 % (0-2); EOSINOPHILS 3 % (0-4); NEUTROPHIL # MANUAL DIFF 7.5 TH/MM3 (1.8-7.7); POLYS (SEG NEUTROPHILS) 48 % (16-70); WBC DIFF SAMPLE 100
[2016-12-23 08:09] LABS: CORRECTED NUCLEATED RBC 1 /100 WBC (0-0)
[2016-12-23 08:10] LABS: SICKLE CELLS 1+ (NORMAL); TARGET CELLS 1+ (NORMAL)
[2016-12-23 08:11] LABS: PLATELET ESTIMATE SMEAR NORMAL (NORMAL); PLATELET MORPHOLOGY NORMAL (NORMAL); SCAN/DIFF FINAL DIFF MANUAL
--- NOTE | 2016-12-23 08:48 | MB ---
cc: ANNE SEALS DATE OF CONSULTATION 12/22/2016 DATE OF 1990 REASON FOR CONSULTATION Patient with a history of sickle cell disease who presents with generalized aches and pain. CHIEF COMPLAINT Feeling unwell, muscle aches and pain. HISTORY OF PRESENT ILLNESS Ms. Frazier is a 26-year-old female who has a past medical history of sickle cell disease with hemoglobin SS. She has had multiple hospital admissions. Her most recent hospital admission was in October 2016. She has been noncompliant with her treatment regimen, specifically Hydrea. She has a narcotic seeking behavior. She was discharged from the hematology clinic due to noncompliance with her clinic followup. She now presents to the emergency department with muscle aches and pains, as well as hip pain. This is usual for her sickle cell crisis. On admission, she was found to have a hemoglobin of 8.2. She has leukocytosis with a white blood cell count of 18.5. She started having low grade fevers with a highest temperature of 99.9 today. Blood cultures were drawn on admission which grew Enterococcus faecalis. The patient has been seen by infectious disease and currently being treated with IV Levaquin. She has been transfused one unit of packed red blood cells since her hemoglobin subsequently dropped to 6.6. Today her hemoglobin is 7.1. She complains of cough and somewhat short of breath. Her O2 saturations have been in the high 90s to 100 on nasal cannula at two liters per minute. The patient had a chest x-ray on 12/20/2016 which did not show any acute cardiopulmonary disease. REVIEW OF SYSTEMS A comprehensive 14-point review of systems was completed which is negative except as described in the HPI. PAST MEDICAL HISTORY 1. Sickle-cell disease 2. Cardiomyopathy 3. Noncompliance with treatment 4. Not narcotic seeking behavior. PAST SURGICAL HISTORY 1. Port placement 2. Cholecystectomy FAMILY HISTORY Reviewed and is noncontributory to this admission. She does have family history of sickle cell disease. SOCIAL HISTORY She denies illicit drug use. No smoking or alcohol abuse. MEDICATIONS 1. Penicillin-G IV. 2. Levofloxacin 450 mg p.o. daily 3. Folic acid 5 mg p.o. daily 4. Hydroxyurea 1000 mg p.o. daily 5. Lisinopril 2.5 mg p.o. daily 6. Metoprolol 12.5 mg p.o. daily 7. Benadryl 25 mg IV q.8 h p.r.n. 8. Acetaminophen 650 mg p.o. q.6 h p.r.n. 9. Ambien 5 mg p.o. q.h.s. 10. Albuterol 2 puffs q.6 h p.r.n. 11. Dilaudid 1 mg IV q.4 h p.r.n. 12. [place] 5/325 one tablet p.o. q.4 h p.r.n. 13. Zofran 4 mg IV q.8 h p.r.n. ALLERGIES She is allergic to PERCOCET. PHYSICAL EXAMINATION VITAL SIGNS: Blood pressure is 110/61, pulse is in the 80s, temperature is 97.8, O2 sats are 100% on nasal cannula. GENERAL: This is a well-developed, well-nourished female in no apparent distress. HEENT: Pupils are equal, round, reactive to light. EOMI. No oral thrush. No oral lesions. NECK: Supple. No JVD, no bruits. No lymphadenopathy. CHEST: Clear to auscultation bilaterally. CARDIAC: S1-S2, regular rate and rhythm. ABDOMEN: Soft, nontender, and nondistended. Bowel sounds are present. EXTREMITIES: Without any edema, erythema or cyanosis. SKIN: Without any petechiae lesion or bruises. NEUROLOGIC: No focal deficits. PSYCHIATRIC: Mood and affect is appropriate. LABORATORY DATA WBCs 13.3, hemoglobin is 7.1, MCV is 82.9, platelet count is 293. Serum chemistries show a sodium of 139, potassium 3.4, chloride 107, CO2 26.2, BUN 5, creatinine 0.64, calcium is 7.9, total bilirubin 1.7, albumin is 3.9. ASSESSMENT/PLAN This is a 26-year female with a history of hemoglobin SS disease, history of iron overload, cardiomyopathy who is being admitted to the hospital with acute sickle-cell crisis and bacteremia/sepsis with Enterococcus faecalis. 1. Sickle cell pain crises. I have reviewed her labs. Her hemoglobin is at her baseline which is in the low 7's to high 6. Her oxygenation is quite good with O2 sats in the high 90s on two liters nasal cannula. She does not appear to be dyspneic. Chest x-ray does not show any acute abnormalities. There is no evidence of acute chest syndrome. Her T-bilirubin is not significantly elevated. She does have mildly elevated bilirubin levels which is seen in sickle cell patients who has chronic hemolysis. Wean supplemental oxygen. Encourage incentive spirometry. Continue folic acid. Continue Hydrea. We should transition her to oral meds as soon as possible. The patient does have a history of narcotic-seeking behavior. Encourage ambulation. 2. Leukocytosis with sepsis bacteremia with Enterococcus faecalis. Continue IV antibiotics IV is on board, appreciate their recommendations. The patient is currently on penicillin and Levaquin. 3. History of iron overload. We will check her ferritin levels. If they are elevated, I will give her a chelation treatment while inpatient. 4. Hypokalemia. Replace potassium. Monitor electrolytes on a daily basis. Replace as needed. 5. Check CBC, LDH and total bilirubin and retic count on a daily basis. Thank you for allowing me to participate in the care of this patient. I will continue to follow this patient along. MD ROSSY Johnson/CAREN /12:18 AM /8:25 AM
[2016-12-23] MEDS: FOLIC ACID 1 MG TAB PO SCH (10:58)
[2016-12-23] MEDS: LEVOFLOXACIN 750 MG TAB PO SCH (10:58)
[2016-12-23] MEDS: LISINOPRIL 5 MG TAB PO SCH (10:58)
[2016-12-23] MEDS: HYDROXYUREA 500 MG CAP PO SCH (10:59)
[2016-12-23] MEDS: METOPROLOL SUCCINATE 25 MG EXTENDED RELEASE TAB PO SCH (11:09)
--- NOTE | 2016-12-23 11:33 | HHI.PR ---
Subjective Remarks looks more comfortable today. pain seems to be improving. afebrile. cough is better. no new complaints. Objective Vitals Vital Signs Date Time Temp Pulse Resp B/P Pulse Ox O2 Delivery O2 Flow Rate FiO2 12/23/16 09:45 97.8 73 16 125/71 97 12/23/16 08:49 97 12/23/16 04:00 97.4 76 16 116/66 94 12/23/16 00:00 97.9 97 16 113/74 94 12/22/16 20:00 98.0 87 16 117/57 94 12/22/16 20:00 95 12/22/16 17:54 95 Nasal Cannula 2.00 12/22/16 16:00 98.4 89 16 100/57 97 12/22/16 15:00 89 12/22/16 12:00 97.5 95 16 104/60 95 I/O 12/22/16 12/22/16 12/22/16 12/23/16 12/23/16 12/23/16 07:00 15:00 23:00 07:00 15:00 23:00 Intake Total 1278 ml 720 ml 720 ml 960 ml Output Total 1250 ml 900 ml 900 ml 1700 ml 700 ml Balance 28 ml -180 ml -180 ml -740 ml -700 ml Intake Oral 480 ml 720 ml 720 ml 960 ml IV Total 798 ml Output Urine Total 1250 ml 900 ml 900 ml 1700 ml 700 ml Result Diagram: 12/23/16 0600 12/23/16 0600 Imaging Last Impressions Chest X-Ray 12/20/16 0000 Signed Impressions: Service Date/Time: Tuesday, December 20, 2016 03:23 - CONCLUSION: No acute disease. Cory Garnett Jr., MD Objective Remarks GENERAL: This is a well-nourished, well-developed patient, in no apparent distress. CARDIOVASCULAR: Regular rate and regular rhythm without murmurs, gallops, or rubs. RESPIRATORY: Clear to auscultation. Breath sounds equal bilaterally. No wheezes , rales, or rhonchi. GASTROINTESTINAL: Abdomen soft, non-tender, nondistended. Normal, active bowel sounds MUSCULOSKELETAL: Extremities without clubbing, cyanosis, or edema. NEURO: Alert & Oriented x4 to person, place, time, situation. Moves all ext x4 Procedures none Medications and IVs Current Medications Ondansetron HCl (Zofran Inj) 4 mg ONCE ONCE IVP Last administered on 11:12; Start 12/19/16 at 10:45; Stop 12/19/16 at 10:46; Status DC Sodium Chloride 2 ml 2 ml UNSCH PRN IVF FLUSH AFTER USING IV ACCESS; Start at 10:45 Sodium Chloride (NS 1000 ml Inj) 1,000 ml @ 1,000 mls/hr Q1H ONCE IV Last administered on 12/19/16 11:12; Start 12/19/16 at 10:31; Stop 12/19/16 at 11:30 ; Status DC Hydromorphone HCl (Dilaudid Pf Inj) 1 mg ONCE ONCE IVS Last administered on 11:12; Start 12/19/16 at 10:45; Stop 12/19/16 at 10:46; Status DC Diphenhydramine HCl (Benadryl Inj) 25 mg ONCE ONCE IV Last administered on 11:12; Start 12/19/16 at 10:45; Stop 12/19/16 at 10:46; Status DC Hydromorphone HCl (Dilaudid Pf Inj) 1 mg ONCE ONCE IV PUSH Last administered on 12/19/16 13:22; Start 12/19/16 at 12:30; Stop 12/19/16 at 12:31; Status DC Albuterol Sulfate (Proair Hfa Inh) 2 puff Q6H PRN INH SHORTNESS OF BREATH; Start 12/19/16 at 13:15; Status Cancel Folic Acid (Folate) 5 mg DAILY PO Last administered on 12/23/16 10:58; Start 12/20/16 at 09:00 Hydroxyurea (Hydrea) 500 mg DAILY PO Last administered on 12/23/16 10:59; Start 12/20/16 at 09:00 Lisinopril (Prinivil) 2.5 mg DAILY PO Last administered on 12/23/16 10:58; Start 12/20/16 at 09:00 Metoprolol Succinate (Toprol Xl) 12.5 mg DAILY PO Last administered on 11:09; Start 12/20/16 at 09:00 Potassium Chloride (KCl) 20 meq ONCE ONCE PO Last administered on 12/19/16 14 :02; Start 12/19/16 at 13:15; Stop 12/19/16 at 13:16; Status DC Miscellaneous (Pill Splitter) 1 ea UNSCH PRN OTHER SEE LABEL COMMENTS; Start at 13:15 Hydromorphone HCl (Dilaudid Pf Inj) 1 mg Q4H PRN IV PUSH PAIN >5 Last administered on 12/23/16 10:45; Start 12/19/16 at 13:30 Acetaminophen/ Hydrocodone Bitart ([place] 5-325 Mg) 1 tab Q4H PRN PO PAIN < 5 Last administered on 12/20/16 01:19; Start 12/19/16 at 13:30 Ondansetron HCl 4 mg 4 mg Q8HR PRN IV PUSH NAUSEA Last administered on 14:39; Start 12/19/16 at 13:30 Sodium Chloride (NS 1000 ml Inj) 1,000 ml @ 75 mls/hr [id number] ONCE IV Last administered on 12/19/16 14:03; Start 12/19/16 at 13:30; Stop 12/20/16 at 02:49 ; Status DC Diphenhydramine HCl 25 mg 25 mg Q6H PRN PO ITCHING Last administered on 02:45; Start 12/19/16 at 13:30; Stop 12/20/16 at 08:14; Status DC Azithromycin/ Sodium Chloride (Zithromax Inj/ NS 250 ml Inj) 250 ml @ 250 mls/ hr Q24H IV Last administered on 12/20/16 15:00; Start 12/19/16 at 15:00; Stop 12/21/16 at 12:59; Status DC Albuterol Sulfate (Albuterol Neb) 2.5 mg Q6HR NEB PRN NEB SHORTNESS OF BREATH Last administered on 12/20/16 02:23; Start 12/19/16 at 14:00 Albuterol Sulfate (Ventolin Hfa Inh) 2 puff Q6H PRN INH SHORTNESS OF BREATH; Start 12/19/16 at 14:30 Zolpidem Tartrate (Ambien) 5 mg HS PRN PO SLEEP Last administered on 12/22/16 22:16; Start 12/19/16 at 21:45 Acetaminophen 650 mg 650 mg Q6H PRN PO fever > 100.4 Last administered on 05:16; Start 12/20/16 at 03:30 Sodium Chloride (NS 250 ml Inj) 250 ml @ 15 mls/hr ONCE ONCE IV Last administered on 12/20/16 04:30; Start 12/20/16 at 04:30; Stop 12/20/16 at 21:09 ; Status DC Acetaminophen (Tylenol) 650 mg Q4H PRN PO SEE LABEL COMMENTS; Start 12/20/16 at 04:30; Stop 12/20/16 at 08:31; Status DC Diphenhydramine HCl (Benadryl) 25 mg Q4H PRN PO SEE LABEL COMMENTS; Start 12/20 at 04:30; Stop 12/20/16 at 08:31; Status DC Potassium Chloride (KCl) 30 meq ONCE ONCE PO Last administered on 12/20/16 09 :08; Start 12/20/16 at 09:00; Stop 12/20/16 at 09:01; Status DC Diphenhydramine HCl 25 mg 25 mg Q8H PRN IV PUSH ITCHING Last administered on 05:49; Start 12/20/16 at 08:15 Ceftriaxone Sodium 1000 mg/ Sodium Chloride 100 ml @ 200 mls/hr Q24H IV Last administered on 12/21/16 10:17; Start 12/21/16 at 09:00; Stop 12/21/16 at 12:59 ; Status DC Sodium Chloride (NS 1000 ml Inj) 1,000 ml @ 50 mls/hr Q20H ONCE IV Last administered on 12/21/16 08:30; Start 12/21/16 at 08:30; Stop 12/22/16 at 04:29 ; Status DC Guaifenesin 200 mg 200 mg Q4H PRN PO COUGH; Start 12/21/16 at 08:30 Pharmacy Profile Note 0 ml @ 0 mls/hr UNSCH OTHER ; Start 12/21/16 at 09:00; Stop 12/21/16 at 13:00; Status DC Vancomycin HCl/ Sodium Chloride (Vancomycin Inj/ NS 250 ml Inj) 262.5 ml @ 250 mls/hr Q12H IV Last administered on 12/21/16 10:58; Start 12/21/16 at 11:00; Stop 12/21/16 at 13:00; Status DC Miscellaneous Information SPECIFIC LAB TO BE ... ONCE ONCE .XX ; Start 12/22 at 22:45; Stop 12/22/16 at 22:46; Status Cancel Levofloxacin 750 mg 750 mg DAILY PO Last administered on 12/23/16 10:58; Start 12/21/16 at 14:00 Penicillin G Potassium/Sodium Chloride (Pfizerpen-G Inj/ NS Inj) 100 ml @ 100 mls/hr Q4H IV Last administered on 12/23/16 10:56; Start 12/21/16 at 15:00 A/P Assessment and Plan A/P - sickle cell painful crisis- improving slowly. continue with pain control- resumed folic acid and hydroxyurea- cautious IV hydration in light of her cardiomyopathy. hematology consult appreciated. -bacteremia with E.Faecalis- started on penicillin G- echo ordered- ID consult appreciated. repeated blood cultures from 12/21 negative so far. -acute on chronic anemia; transfused with one unit of PRBC-H/H fairly stable. continue to monitor. -sepsis likely due to pneumonia; continue neb treatment. started on levaquin- oxygen as needed to keep O2 sat > 90%. sputum culture with normal respiratory ruy- will continue to monitor temps.ID following. -cardiomyopathy; resumed home meds -mild hypokalemia; replaced. -DVT prophylaxis with Lovenox Bernardo Orozco MD Dec 23, 2016 11:33
--- NOTE | 2016-12-23 13:50 | RADRPT ---
EXAM DATE/TIME: 12/23/2016 13:21 [place] COMPARISON: No previous studies available for comparison. INDICATIONS : Right arm pain. Right neck infusaport. MEDICAL HISTORY : Congestive heart failure. Sickle cell disease. SURGICAL HISTORY : section. Cholecystectomy. Infusaport. ENCOUNTER: Subsequent ACUITY: 1 day PAIN SCORE: 0/10 LOCATION: Right arm. FINDINGS: There is spontaneous flow documented in the brachial, basilic, cephalic, axillary, and subclavian vei ns. The vessels are compressible and augmentation response is documented. No filling defects are se en. The flow is phasic with respiration. Direction of flow in the jugular vein is caudal. CONCLUSION: No venous thrombosis is identified within the right upper extremity. Ernst Arias MD on December 23, 2016 at 13:48 Board Certified Radiologist. This report was verified electronically.
--- NOTE | 2016-12-23 13:52 | HHI.IDPN ---
Subjective Subjective Remarks Notes reviewed Temps better Pain seem to be improving No new (+) BC so far Antibiotics PCN IV Levaquin po Lines Port Past Medical History Sickle cell Asthma Congestive heart failure Port infection Past Surgical History [id number] insertion and removal 2, last placement 2014 Cholecystectomy Allergies: Coded Allergies: Percocet (Verified Adverse Reaction, Severe, Nausea/Vomiting, 12/19/16) AND ITCHING *MDRO Multi-Drug Resistant Organism (Verified Adverse Reaction, Unknown, Cleared 02/08/15, 12/19/16) MRSA (Chest Wound) - 02/2012 MRSA PCR Screen negative 02/06/15 and 02/08/15. Cleared per Infection Control Objective . Vital Signs Date Time Temp Pulse Resp B/P Pulse Ox O2 Delivery O2 Flow Rate FiO2 12/23/16 09:45 97.8 73 16 125/71 97 12/23/16 08:49 97 12/23/16 04:00 97.4 76 16 116/66 94 12/23/16 00:00 97.9 97 16 113/74 94 12/22/16 20:00 98.0 87 16 117/57 94 12/22/16 20:00 95 12/22/16 17:54 95 Nasal Cannula 2.00 12/22/16 16:00 98.4 89 16 100/57 97 12/22/16 15:00 89 12/22/16 12/22/16 12/23/16 15:00 23:00 07:00 Intake Total 720 ml 720 ml 960 ml Output Total 900 ml 900 ml 1700 ml Balance -180 ml -180 ml -740 ml Intake Oral 720 ml 720 ml 960 ml Output Urine Total 900 ml 900 ml 1700 ml . Laboratory Tests Test 12/22/16 12/23/16 05:55 06:00 White Blood Count 13.3 TH/MM3 13.2 TH/MM3 Red Blood Count 2.47 MIL/MM3 2.50 MIL/MM3 Hemoglobin 7.1 GM/DL 7.2 GM/DL Hematocrit 20.4 % 20.5 % Mean Corpuscular Volume 82.9 FL 82.1 FL Mean Corpuscular Hemoglobin 29.0 PG 28.7 PG Mean Corpuscular Hemoglobin 35.0 % 35.0 % Concent Red Cell Distribution Width 17.6 % 17.9 % Platelet Count 293 TH/MM3 336 TH/MM3 Mean Platelet Volume 8.1 FL 7.9 FL Neutrophils (%) (Auto) 52.3 % 48.0 % Lymphocytes (%) (Auto) 21.5 % 30.9 % Monocytes (%) (Auto) 15.1 % 11.4 % Eosinophils (%) (Auto) 9.7 % 8.8 % Basophils (%) (Auto) 1.4 % 0.9 % Neutrophils # (Auto) 7.0 TH/MM3 6.4 TH/MM3 Lymphocytes # (Auto) 2.9 TH/MM3 4.1 TH/MM3 Monocytes # (Auto) 2.0 TH/MM3 1.5 TH/MM3 Eosinophils # (Auto) 1.3 TH/MM3 1.2 TH/MM3 Basophils # (Auto) 0.2 TH/MM3 0.1 TH/MM3 CBC Comment DIFF FINAL AUTO DIFF Differential Comment FINAL DIFF MANUAL Differential Total Cells 100 Counted Neutrophils % (Manual) 48 % Band Neutrophils % 9 % Lymphocytes % 28 % Monocytes % 11 % Eosinophils % 3 % Basophils % 1 % Neutrophils # (Manual) 7.5 TH/MM3 Nucleated Red Blood Cells 1 /100 WBC Platelet Estimate NORMAL Platelet Morphology Comment NORMAL Sickle Cells 1+ Target Cells 1+ Red Cell Morphology Comment Reticulocyte Count 6.8 % Absolute Reticulocyte Count 169.9 MIL/L Laboratory Tests Test 12/23/16 06:00 Sodium Level 138 MEQ/L Potassium Level 3.7 MEQ/L Chloride Level 105 MEQ/L Carbon Dioxide Level 26.8 MEQ/L Anion Gap 6 MEQ/L Blood Urea Nitrogen 5 MG/DL Creatinine 0.65 MG/DL Estimat Glomerular Filtration 132 ML/MIN Rate Random Glucose 105 MG/DL Calcium Level 8.4 MG/DL Ferritin 4993 NG/ML Total Bilirubin 1.2 MG/DL Direct Bilirubin 0.3 MG/DL Indirect Bilirubin 0.9 MG/DL Lactate Dehydrogenase 275 U/L Microbiology Date/Time Procedure Status Source Growth 12/21/16 05:15 Gram Stain - Final Resulted Sputum Expectorated Sputum 12/21/16 05:15 Sputum Culture - Preliminary Resulted Sputum Expectorated Sputum HEAVY GROWTH NORMAL RESPIRATORY NAIN 12/21/16 15:13 Aerobic Blood Culture - Preliminary Resulted Blood Other NO GROWTH IN 2 DAYS 12/21/16 15:13 Anaerobic Blood Culture - Preliminary Resulted Blood Other NO GROWTH IN 2 DAYS 12/23/16 06:00 Aerobic Blood Culture Received Blood Peripheral Pending 12/23/16 06:00 Anaerobic Blood Culture Received Blood Peripheral Pending Imaging Last Impressions Chest X-Ray 12/20/16 0000 Signed Impressions: Service Date/Time: Tuesday, December 20, 2016 03:23 - CONCLUSION: No acute disease. Cory Garnett Jr., MD Physical Exam GENERAL: awake and alert, in no apparent distress. SKIN: Warm and dry, no generalized rash or ecchymosis. No evidence of peripheral embolic lesions. HEAD: Atraumatic. Normocephalic. No temporal or scalp tenderness. EYES: [place] conjunctiva, no petechia or hemorrhage. No scleral icterus. No injection or drainage. ENT: Nose without bleeding, or purulent drainage. Moist oral mucosa. No oral thrush. Throat without erythema, or exudate. Uvula midline. Airway patent. NECK: Trachea midline. No JVD or lymphadenopathy. Supple, nontender, no meningeal signs. CARDIOVASCULAR: Regular rate and rhythm without murmurs, gallops, or rubs. Port in right upper chest with no swelling, redness or tenderness. RESPIRATORY: Clear to auscultation. Breath sounds equal bilaterally. No wheezes , rales. Has occasional rhonchi. GASTROINTESTINAL: Abdomen soft, non-tender, nondistended. Bowel sounds are present and normoactive. No hepato-splenomegaly, or palpable masses. No guarding. MUSCULOSKELETAL: Extremities without clubbing, cyanosis, or edema. No joint effusion, or edema noted. Good range of motion. No calf tenderness. NEUROLOGICAL: Grossly non-focal PSYCH: Calm and cooperative today LINE: Port without evidence of infection Assessment & Plan Remarks IMPRESSION Recurrent Enterococcal bacteremia, very suspicious for port infection - R/O endocarditis Sickle cell crisis Cough, due to [place], bronchitis - CXR clear RECOMMENDATION Repeat BC: from port and line Echo Doppler US RUE Patient has not been treated for her Enterococcal bacteremia D/W patient taht if echo or US abnormal, will take out port IF ok, then 4-6 weeks IV Abx Will also need removal if she any any more (+) new BC Continue Levaquin Follow C/S Monitor temps Monitor progress Lizbet Monte MD Dec 23, 2016 13:52
--- NOTE | 2016-12-23 16:22 | EC ---
Study Study Date:12/23/2016 STUDY CONCLUSIONS SUMMARY - Left ventricle: The cavity size was mildly dilated. Wall thickness was normal. Systolic function was mildly to moderately reduced. The estimated ejection fraction was in the range of 40% to 45%. Diffuse hypokinesis. - Aortic valve: Valve area: 2.81cm^2(VTI). Valve area: 2.8cm^2 (Vmax). - Mitral valve: Mild regurgitation. - Tricuspid valve: Mild regurgitation. - Pulmonary arteries: PA peak pressure: 36mm Hg (S). Impressions: No evidence of endocarditis. If LV function is below 40, please consider prescribing an ACEI or ARB or document rationale for non-use. PROCEDURE DATA STUDY STATUS: Elective. Procedure: Transthoracic echocardiography. Image quality was good. Scanning was performed from the parasternal, apical, and subcostal acoustic windows. Study completion: The patient tolerated the procedure well. Transthoracic echocardiography. M-mode, complete 2D, complete spectral Doppler, and color Doppler. Height: Height: 64in. Weight: Weight: 165.7lb. Body mass index: BMI: 28.5kg/m^2. Body surface area: BSA: 1.81m^2. Patient status: Inpatient. CARDIAC ANATOMY LEFT VENTRICLE: The cavity size was mildly dilated. Wall thickness was normal. Systolic function was mildly to moderately reduced. The estimated ejection fraction was in the range of 40% to 45%. Diffuse hypokinesis. AORTIC VALVE: Trileaflet; normal thickness leaflets. Doppler: Transvalvular velocity was within the normal range. There was no stenosis. No regurgitation. Valve area: 2.81cm^2(VTI). Indexed valve area: 1.55cm^2/m^2 (VTI). Valve area: 2.8cm^2 (Vmax). Indexed valve area: 1.55cm^2/m^2 (Vmax). Mean gradient: 3mm Hg (S). AORTA: Aortic root: The aortic root was normal in size. MITRAL VALVE: Structurally normal valve. Doppler: Transvalvular velocity was within the normal range. There was no evidence for stenosis. Mild regurgitation. Peak gradient: 4mm Hg (D). LEFT ATRIUM: The atrium was normal in size. RIGHT VENTRICLE: The cavity size was normal. Wall thickness was normal. PULMONIC VALVE: Doppler: Transvalvular velocity was within the normal range. There was no evidence for stenosis. No regurgitation. TRICUSPID VALVE: Structurally normal valve. Doppler: Transvalvular velocity was within the normal range. Mild regurgitation. PULMONARY ARTERY: The main pulmonary artery was normal-sized. Systolic pressure was within the normal range. RIGHT ATRIUM: The atrium was normal in size. PERICARDIUM: There was no pericardial effusion. SYSTEMIC VEINS: Inferior vena cava: The vessel was normal in size. Patient weight: 165.7lb _Ejection fraction:_ 65-75% _Fractional shortening:_ 32% up to 5Kg 5-11.5Kg 11.6-22.9Kg 23-45Kg 45-57Kg Aortic Root 7-13 <17 13-22 17-27 17-27 LA diam 6-13 <23 24-38 33-47 37-40 RVID 10-17 7-15 7-15 7-18 8-17 LVIDd 12-22 <32 24-38 33-47 37-40 LVPW 2-4 3-6 5-7 6-8 7-8 IVS 2-4 3-6 5-7 6-8 7-8 BASIC MEASUREMENTS ADULT NORMAL Left ventricle LV internal dimension, ED, chordal *57.5 mm 43-52 level, PLAX LV internal dimension, ES, chordal *48.1 mm 23-38 level, PLAX Fractional shortening, chordal level, *16 % >29 PLAX LV posterior wall thickness, ED 9.44 mm IVS/LVPW ratio, ED 0.94 <1.3 Volume, ED, MOD, 1-plane 235 ml Volume, ES, MOD, 1-plane 139 ml Ejection fraction, MOD, 1-plane 41 % Stroke volume, MOD, 1-plane 96 ml Volume index, ED, MOD, 1-plane 130 ml/m^2 Volume index, ES, MOD, 1-plane 77 ml/m^2 Stroke index, MOD, 1-plane 53 ml/m^2 Volume, ED, MOD, 2-plane 249 ml Volume, ES, MOD, 2-plane 142 ml Ejection fraction, MOD, 2-plane 43 % Stroke volume, MOD, 2-plane 107 ml Volume index, ED, MOD, 2-plane 138 ml/m^2 Volume index, ES, MOD, 2-plane 78 ml/m^2 Stroke index, MOD, 2-plane 59.1 ml/m^2 Ventricular septum Septal thickness, ED 8.9 mm Aortic valve Leaflet separation 21 mm 15-26 Aorta Root diameter, ED 30 mm Left atrium Anterior-posterior dimension 42 mm Anterior-posterior dimension index *2.32 cm/m^2 <2.2 BASIC MEASUREMENTS ADULT NORMAL Aortic valve Leaflet separation 21 mm 15-26 DOPPLER MEASUREMENTS ADULT NORMAL Main pulmonary artery Pressure, S *36 mm Hg =30 Aortic valve Peak velocity, S 114 cm/s Mean velocity, S 85.8 cm/s VTI, S 21.9 cm Mean gradient, S 3 mm Hg Valve area, VTI 2.81 cm^2 Valve area index, VTI 1.55 cm^2/m^2 Valve area, Vmax 2.8 cm^2 Valve area index, Vmax 1.55 cm^2/m^2 Mitral valve Peak E-wave velocity 95.8 cm/s Peak A-wave velocity 49.4 cm/s Deceleration time 194 ms 150-230 Peak gradient, D 4 mm Hg Peak E/A ratio 1.9 Tricuspid valve Regurgitant peak velocity 243 cm/s Peak RV-RA gradient, S 24 mm Hg Maximal regurgitant velocity 243 cm/s Systemic veins Estimated CVP 10 mm Hg Right ventricle RV pressure, S *37 mm Hg <30 Pulmonic valve Peak velocity, S 57.9 cm/s LEGEND: Mean values are shown as u=mean value. Asterisk (*) guidry values outside specified normal range. Prepared and signed by Theresa Desir [id number]
[2016-12-23] MEDS: ZOLPIDEM TARTRATE 5 MG TAB PO PRN (22:07)
--- NOTE | 2016-12-23 23:57 | PD.ONC.PN ---
Subjective Subjective Remarks c/o of dyspnea and pain "all over" has cough no fever Objective Data Date Time Temp Pulse Resp B/P Pulse Ox O2 Delivery O2 Flow Rate FiO2 12/23/16 20:00 98.5 76 16 126/72 95 12/23/16 16:53 98.2 71 16 120/72 98 12/23/16 13:00 97.8 71 18 125/81 97 12/23/16 09:45 97.8 73 16 125/71 97 12/23/16 08:49 97 12/23/16 04:00 97.4 76 16 116/66 94 12/23/16 00:00 97.9 97 16 113/74 94 12/23/16 12/23/16 12/23/16 07:00 15:00 23:00 Intake Total 960 ml 1528 ml Output Total 1700 ml 1600 ml Balance -740 ml -72 ml Result Diagram: 12/23/16 0600 12/23/16 0600 Laboratory Results Laboratory Tests Test 12/23/16 06:00 White Blood Count 13.2 TH/MM3 Red Blood Count 2.50 MIL/MM3 Hemoglobin 7.2 GM/DL Hematocrit 20.5 % Mean Corpuscular Volume 82.1 FL Mean Corpuscular Hemoglobin 28.7 PG Mean Corpuscular Hemoglobin 35.0 % Concent Red Cell Distribution Width 17.9 % Platelet Count 336 TH/MM3 Mean Platelet Volume 7.9 FL Neutrophils (%) (Auto) 48.0 % Lymphocytes (%) (Auto) 30.9 % Monocytes (%) (Auto) 11.4 % Eosinophils (%) (Auto) 8.8 % Basophils (%) (Auto) 0.9 % Neutrophils # (Auto) 6.4 TH/MM3 Lymphocytes # (Auto) 4.1 TH/MM3 Monocytes # (Auto) 1.5 TH/MM3 Eosinophils # (Auto) 1.2 TH/MM3 Basophils # (Auto) 0.1 TH/MM3 CBC Comment AUTO DIFF Differential Total Cells 100 Counted Neutrophils % (Manual) 48 % Band Neutrophils % 9 % Lymphocytes % 28 % Monocytes % 11 % Eosinophils % 3 % Basophils % 1 % Neutrophils # (Manual) 7.5 TH/MM3 Nucleated Red Blood Cells 1 /100 WBC Differential Comment FINAL DIFF MANUAL Platelet Estimate NORMAL Platelet Morphology Comment NORMAL Sickle Cells 1+ Target Cells 1+ Red Cell Morphology Comment Reticulocyte Count 6.8 % Absolute Reticulocyte Count 169.9 MIL/L Sodium Level 138 MEQ/L Potassium Level 3.7 MEQ/L Chloride Level 105 MEQ/L Carbon Dioxide Level 26.8 MEQ/L Anion Gap 6 MEQ/L Blood Urea Nitrogen 5 MG/DL Creatinine 0.65 MG/DL Estimat Glomerular Filtration 132 ML/MIN Rate Random Glucose 105 MG/DL Calcium Level 8.4 MG/DL Ferritin 4993 NG/ML Total Bilirubin 1.2 MG/DL Direct Bilirubin 0.3 MG/DL Indirect Bilirubin 0.9 MG/DL Lactate Dehydrogenase 275 U/L Culture Results Microbiology Date/Time Procedure Status Source Growth 12/21/16 05:15 Gram Stain - Final Resulted Sputum Expectorated Sputum 12/21/16 05:15 Sputum Culture - Preliminary Resulted Sputum Expectorated Sputum HEAVY GROWTH NORMAL RESPIRATORY NAIN 12/21/16 15:13 Aerobic Blood Culture - Preliminary Resulted Blood Other NO GROWTH IN 2 DAYS 12/21/16 15:13 Anaerobic Blood Culture - Preliminary Resulted Blood Other NO GROWTH IN 2 DAYS 12/23/16 06:00 Aerobic Blood Culture Received Blood Peripheral Pending 12/23/16 06:00 Anaerobic Blood Culture Received Blood Peripheral Pending Imaging Studies Last 24 hours Impressions Upper Extremity Ultrasound 12/23/16 0000 Signed Impressions: Service Date/Time: Friday, December 23, 2016 13:21 - CONCLUSION: No venous thrombosis is identified within the right upper extremity. Ernst Arias MD Administered Medications Medications (Trade) Dose Ordered Sig/Pavel Route PRN Reason Start Time Stop Time Status Last Admin Dose Admin Folic Acid (Folate) 5 mg DAILY PO 12/20/16 09:00 12/23/16 10:58 Hydroxyurea (Hydrea) 500 mg DAILY PO 12/20/16 09:00 12/23/16 10:59 Lisinopril (Prinivil) 2.5 mg DAILY PO 12/20/16 09:00 12/23/16 10:58 Metoprolol Succinate (Toprol Xl) 12.5 mg DAILY PO 12/20/16 09:00 12/23/16 11:09 Hydromorphone HCl (Dilaudid Pf Inj) 1 mg Q4H PRN IV PUSH PAIN >5 12/19/16 13:30 12/23/16 22:08 Acetaminophen/ Hydrocodone Bitart ([place] 5-325 Mg) 1 tab Q4H PRN PO PAIN < 5 12/19/16 13:30 12/20/16 01:19 Ondansetron HCl (Zofran Inj) 4 mg Q8HR PRN IV PUSH NAUSEA 12/19/16 13:30 12/20/16 14:39 Zolpidem Tartrate (Ambien) 5 mg HS PRN PO SLEEP 12/19/16 21:45 12/23/16 22:07 Acetaminophen (Tylenol) 650 mg Q6H PRN PO fever > 100.4 12/20/16 03:30 12/21/16 05:16 Diphenhydramine HCl (Benadryl Inj) 25 mg Q8H PRN IV PUSH ITCHING 12/20/16 08:15 12/23/16 22:07 Levofloxacin 750 mg 750 mg DAILY PO 12/21/16 14:00 12/23/16 10:58 Penicillin G Potassium/Sodium Chloride (Pfizerpen-G Inj/ NS Inj) 100 ml @ 100 mls/hr Q4H IV 12/21/16 15:00 12/23/16 22:08 Objective Remarks GENERAL: nad NECK: Supple, trachea midline. No JVD or lymphadenopathy. LYMPHATIC: No adenopathy. CARDIOVASCULAR: Regular rate and rhythm without murmurs. RESPIRATORY: Breath sounds equal bilaterally. No accessory muscle use. GASTROINTESTINAL: Abdomen soft, non-tender, nondistended. EXTREMITIES: No cyanosis, or edema. 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 1. Sickle cell pain crises. - Clinically doing better today. Labs do not show any high degree of hemolysis. Monitor dialy LDH, Retic count, CBC and Bilirubin levels - Transition to oral meds. - Continue folic acid and Hydrea - Incentive spirometry 2. Leukocytosis with sepsis bacteremia with Enterococcus faecalis. - Appreciate ID assistance 3. History of iron overload. - ferritin levels are elevated in the high 4000 range. - Will start chelation therapy with Deferoxamine - Hx of Cardiomyopathy - 2 D echocardiogram will be helpful to reassess cardiomyopathy from sickle cell disease perspective and also needed in the setting of bacteremia d/w patient d/w rn Aung Jacobo MD Dec 23, 2016 23:57
[2016-12-24] VITALS (10 sets, daily range): BP systolic 106–121; BP diastolic 58–72; PULSE 74–88; RESP 16–20; TEMP 97.4–98.2; O2SAT 94–97
[2016-12-24] MEDS: PENICILLIN G POTASSIUM INJ 3,000,000 UNITS in SODIUM CHLORIDE 0.9% INJ 100 ML IV SCH ×6 (02:06→22:00)
[2016-12-24] MEDS: HYDROmorphone HCL PF 1 MG/ML VIAL IV PUSH PRN ×6 (02:06→21:54)
[2016-12-24 03:02] LABS: RETIC % 8.1 % (0.4-3.0)
[2016-12-24 03:06] LABS: REVIEW FLAG FINAL
[2016-12-24 03:21] LABS: INDIRECT BILIRUBIN 0.9 MG/DL (0.0-0.8); TOTAL BILIRUBIN ADULT 1.1 MG/DL (0.2-1.0)
[2016-12-24] MEDS: diphenhydrAMINE HCL 50 MG/ML VIAL IV PUSH PRN ×3 (05:49→21:53)
[2016-12-24] MEDS ORDERED: DEFEROXAMINE IV SCH (07:00)
[2016-12-24] MEDS ORDERED: SODIUM CHLOR 0.9% IV SCH (07:00)
--- NOTE | 2016-12-24 09:05 | HHI.PR ---
Subjective Remarks is comfortable. no recurrent fever. has occasional cough. pain is more or less controlled. Objective Vitals Vital Signs Date Time Temp Pulse Resp B/P Pulse Ox O2 Delivery O2 Flow Rate FiO2 12/24/16 08:13 97 21 12/24/16 06:48 18 12/24/16 04:00 98.2 78 16 117/72 97 12/24/16 02:16 77 12/24/16 01:00 97.4 82 16 121/66 94 12/23/16 20:00 98.5 76 16 126/72 95 12/23/16 16:53 98.2 71 16 120/72 98 12/23/16 13:00 97.8 71 18 125/81 97 12/23/16 09:45 97.8 73 16 125/71 97 I/O 12/23/16 12/23/16 12/23/16 12/24/16 12/24/16 12/24/16 07:00 15:00 23:00 07:00 15:00 23:00 Intake Total 960 ml 1528 ml 720 ml 800 ml Output Total 1700 ml 1600 ml 1200 ml 1200 ml Balance -740 ml -72 ml -480 ml -400 ml Intake Oral 960 ml 1200 ml 720 ml 800 ml IV Total 328 ml Output Urine Total 1700 ml 1600 ml 1200 ml 1200 ml Result Diagram: 12/23/16 0600 12/23/16 0600 Imaging Last Impressions Upper Extremity Ultrasound 12/23/16 0000 Signed Impressions: Service Date/Time: Friday, December 23, 2016 13:21 - CONCLUSION: No venous thrombosis is identified within the right upper extremity. Ernst Arias MD Chest X-Ray 12/20/16 0000 Signed Impressions: Service Date/Time: Tuesday, December 20, 2016 03:23 - CONCLUSION: No acute disease. Cory Garnett Jr., MD Objective Remarks GENERAL: This is a well-nourished, well-developed patient, in no apparent distress. CARDIOVASCULAR: Regular rate and regular rhythm without murmurs, gallops, or rubs. RESPIRATORY: Clear to auscultation. Breath sounds equal bilaterally. No wheezes , rales, or rhonchi. GASTROINTESTINAL: Abdomen soft, non-tender, nondistended. Normal, active bowel sounds MUSCULOSKELETAL: Extremities without clubbing, cyanosis, or edema. NEURO: Alert & Oriented x4 to person, place, time, situation. Moves all ext x4 Procedures none Medications and IVs Current Medications Ondansetron HCl (Zofran Inj) 4 mg ONCE ONCE IVP Last administered on 11:12; Start 12/19/16 at 10:45; Stop 12/19/16 at 10:46; Status DC Sodium Chloride 2 ml 2 ml UNSCH PRN IVF FLUSH AFTER USING IV ACCESS; Start at 10:45 Sodium Chloride (NS 1000 ml Inj) 1,000 ml @ 1,000 mls/hr Q1H ONCE IV Last administered on 12/19/16 11:12; Start 12/19/16 at 10:31; Stop 12/19/16 at 11:30 ; Status DC Hydromorphone HCl (Dilaudid Pf Inj) 1 mg ONCE ONCE IVS Last administered on 11:12; Start 12/19/16 at 10:45; Stop 12/19/16 at 10:46; Status DC Diphenhydramine HCl (Benadryl Inj) 25 mg ONCE ONCE IV Last administered on 11:12; Start 12/19/16 at 10:45; Stop 12/19/16 at 10:46; Status DC Hydromorphone HCl (Dilaudid Pf Inj) 1 mg ONCE ONCE IV PUSH Last administered on 12/19/16 13:22; Start 12/19/16 at 12:30; Stop 12/19/16 at 12:31; Status DC Albuterol Sulfate (Proair Hfa Inh) 2 puff Q6H PRN INH SHORTNESS OF BREATH; Start 12/19/16 at 13:15; Status Cancel Folic Acid (Folate) 5 mg DAILY PO Last administered on 12/23/16 10:58; Start 12/20/16 at 09:00 Hydroxyurea (Hydrea) 500 mg DAILY PO Last administered on 12/23/16 10:59; Start 12/20/16 at 09:00 Lisinopril (Prinivil) 2.5 mg DAILY PO Last administered on 12/23/16 10:58; Start 12/20/16 at 09:00 Metoprolol Succinate (Toprol Xl) 12.5 mg DAILY PO Last administered on 11:09; Start 12/20/16 at 09:00 Potassium Chloride (KCl) 20 meq ONCE ONCE PO Last administered on 12/19/16 14 :02; Start 12/19/16 at 13:15; Stop 12/19/16 at 13:16; Status DC Miscellaneous (Pill Splitter) 1 ea UNSCH PRN OTHER SEE LABEL COMMENTS; Start at 13:15 Hydromorphone HCl (Dilaudid Pf Inj) 1 mg Q4H PRN IV PUSH PAIN >5 Last administered on 12/24/16 05:49; Start 12/19/16 at 13:30 Acetaminophen/ Hydrocodone Bitart ([place] 5-325 Mg) 1 tab Q4H PRN PO PAIN < 5 Last administered on 12/20/16 01:19; Start 12/19/16 at 13:30 Ondansetron HCl 4 mg 4 mg Q8HR PRN IV PUSH NAUSEA Last administered on 14:39; Start 12/19/16 at 13:30 Sodium Chloride (NS 1000 ml Inj) 1,000 ml @ 75 mls/hr [id number] ONCE IV Last administered on 12/19/16 14:03; Start 12/19/16 at 13:30; Stop 12/20/16 at 02:49 ; Status DC Diphenhydramine HCl 25 mg 25 mg Q6H PRN PO ITCHING Last administered on 02:45; Start 12/19/16 at 13:30; Stop 12/20/16 at 08:14; Status DC Azithromycin/ Sodium Chloride (Zithromax Inj/ NS 250 ml Inj) 250 ml @ 250 mls/ hr Q24H IV Last administered on 12/20/16 15:00; Start 12/19/16 at 15:00; Stop 12/21/16 at 12:59; Status DC Albuterol Sulfate (Albuterol Neb) 2.5 mg Q6HR NEB PRN NEB SHORTNESS OF BREATH Last administered on 12/20/16 02:23; Start 12/19/16 at 14:00; Stop 12/23/16 at 14:00; Status DC Albuterol Sulfate (Ventolin Hfa Inh) 2 puff Q6H PRN INH SHORTNESS OF BREATH; Start 12/19/16 at 14:30 Zolpidem Tartrate (Ambien) 5 mg HS PRN PO SLEEP Last administered on 12/23/16 22:07; Start 12/19/16 at 21:45 Acetaminophen 650 mg 650 mg Q6H PRN PO fever > 100.4 Last administered on 05:16; Start 12/20/16 at 03:30 Sodium Chloride (NS 250 ml Inj) 250 ml @ 15 mls/hr ONCE ONCE IV Last administered on 12/20/16 04:30; Start 12/20/16 at 04:30; Stop 12/20/16 at 21:09 ; Status DC Acetaminophen (Tylenol) 650 mg Q4H PRN PO SEE LABEL COMMENTS; Start 12/20/16 at 04:30; Stop 12/20/16 at 08:31; Status DC Diphenhydramine HCl (Benadryl) 25 mg Q4H PRN PO SEE LABEL COMMENTS; Start 12/20 at 04:30; Stop 12/20/16 at 08:31; Status DC Potassium Chloride (KCl) 30 meq ONCE ONCE PO Last administered on 12/20/16 09 :08; Start 12/20/16 at 09:00; Stop 12/20/16 at 09:01; Status DC Diphenhydramine HCl 25 mg 25 mg Q8H PRN IV PUSH ITCHING Last administered on 05:49; Start 12/20/16 at 08:15 Ceftriaxone Sodium 1000 mg/ Sodium Chloride 100 ml @ 200 mls/hr Q24H IV Last administered on 12/21/16 10:17; Start 12/21/16 at 09:00; Stop 12/21/16 at 12:59 ; Status DC Sodium Chloride (NS 1000 ml Inj) 1,000 ml @ 50 mls/hr Q20H ONCE IV Last administered on 12/21/16 08:30; Start 12/21/16 at 08:30; Stop 12/22/16 at 04:29 ; Status DC Guaifenesin 200 mg 200 mg Q4H PRN PO COUGH; Start 12/21/16 at 08:30 Pharmacy Profile Note 0 ml @ 0 mls/hr UNSCH OTHER ; Start 12/21/16 at 09:00; Stop 12/21/16 at 13:00; Status DC Vancomycin HCl/ Sodium Chloride (Vancomycin Inj/ NS 250 ml Inj) 262.5 ml @ 250 mls/hr Q12H IV Last administered on 12/21/16 10:58; Start 12/21/16 at 11:00; Stop 12/21/16 at 13:00; Status DC Miscellaneous Information SPECIFIC LAB TO BE ... ONCE ONCE .XX ; Start 12/22 at 22:45; Stop 12/22/16 at 22:46; Status Cancel Levofloxacin 750 mg 750 mg DAILY PO Last administered on 12/23/16 10:58; Start 12/21/16 at 14:00 Penicillin G Potassium [id number] units/Sodium Chloride 100 ml @ 100 mls/hr Q4H IV Last administered on 12/24/16 05:50; Start 12/21/16 at 15:00 Deferoxamine Mesylate/Sodium Chloride (Desferal Inj/NS 250 ml Inj) 250 ml @ 250 mls/hr ONCE IV Last administered on 12/24/16 07:59; Start 12/24/16 at 07: 00; Stop 12/27/16 at 07:00 A/P Assessment and Plan A/P - sickle cell painful crisis- improving slowly. continue with pain control- resumed folic acid and hydroxyurea- cautious IV hydration in light of her cardiomyopathy. hematology consult appreciated. started on Deferoxamine. -bacteremia with E.Faecalis- started on penicillin G- echo with EF 45% and no evidence of endocarditis. venous doppler with no thrombosis right upper extremity. follow the blood cultures. ID following. -acute on chronic anemia; transfused with one unit of PRBC-H/H fairly stable. continue to monitor. -sepsis likely due to pneumonia; continue neb treatment. started on levaquin- oxygen as needed to keep O2 sat > 90%. sputum culture with normal respiratory ruy- will continue to monitor temps.ID following. -cardiomyopathy; resumed home meds -mild hypokalemia; replaced. -DVT prophylaxis with Bernardo Xie MD Dec 24, 2016 09:05
[2016-12-24] MEDS: HYDROXYUREA 500 MG CAP PO SCH (09:54)
[2016-12-24] MEDS: LEVOFLOXACIN 750 MG TAB PO SCH (09:54)
[2016-12-24] MEDS: METOPROLOL SUCCINATE 25 MG EXTENDED RELEASE TAB PO SCH (09:55)
[2016-12-24] MEDS: LISINOPRIL 5 MG TAB PO SCH (09:55)
[2016-12-24] MEDS: FOLIC ACID 1 MG TAB PO SCH (09:56)
--- NOTE | 2016-12-24 16:49 | PD.ONC.PN ---
Subjective Subjective Remarks Afebrile overnight. Pain is more controlled Denies SOB, cough. Objective Data Date Time Temp Pulse Resp B/P Pulse Ox O2 Delivery O2 Flow Rate FiO2 12/24/16 11:50 97.4 74 20 113/62 95 12/24/16 08:13 97 21 12/24/16 08:00 83 12/24/16 07:50 97.6 81 20 106/60 12/24/16 06:48 18 12/24/16 04:00 98.2 78 16 117/72 97 12/24/16 02:16 77 12/24/16 01:00 97.4 82 16 121/66 94 12/23/16 20:00 98.5 76 16 126/72 95 12/23/16 16:53 98.2 71 16 120/72 98 12/24/16 12/24/16 12/24/16 07:00 15:00 23:00 Intake Total 800 ml Output Total 1200 ml Balance -400 ml Result Diagram: 12/23/16 0600 12/23/16 0600 Laboratory Results Laboratory Tests Test 12/24/16 02:14 Reticulocyte Count 8.1 % Absolute Reticulocyte Count 207.8 MIL/L Total Bilirubin 1.1 MG/DL Direct Bilirubin 0.2 MG/DL Indirect Bilirubin 0.9 MG/DL Lactate Dehydrogenase 289 U/L Culture Results Microbiology Date/Time Procedure Status Source Growth 12/23/16 06:00 Aerobic Blood Culture - Preliminary Resulted Blood Peripheral NO GROWTH IN 1 DAY 12/23/16 06:00 Anaerobic Blood Culture - Preliminary Resulted Blood Peripheral NO GROWTH IN 1 DAY Administered Medications Medications (Trade) Dose Ordered Sig/Pavel Route PRN Reason Start Time Stop Time Status Last Admin Dose Admin Folic Acid (Folate) 5 mg DAILY PO 12/20/16 09:00 12/24/16 09:56 Hydroxyurea (Hydrea) 500 mg DAILY PO 12/20/16 09:00 12/24/16 09:54 Lisinopril (Prinivil) 2.5 mg DAILY PO 12/20/16 09:00 12/24/16 09:55 Metoprolol Succinate (Toprol Xl) 12.5 mg DAILY PO 12/20/16 09:00 12/24/16 09:55 Hydromorphone HCl (Dilaudid Pf Inj) 1 mg Q4H PRN IV PUSH PAIN >5 12/19/16 13:30 12/24/16 13:49 Acetaminophen/ Hydrocodone Bitart ([place] 5-325 Mg) 1 tab Q4H PRN PO PAIN < 5 12/19/16 13:30 12/20/16 01:19 Ondansetron HCl (Zofran Inj) 4 mg Q8HR PRN IV PUSH NAUSEA 12/19/16 13:30 12/20/16 14:39 Zolpidem Tartrate (Ambien) 5 mg HS PRN PO SLEEP 12/19/16 21:45 12/23/16 22:07 Acetaminophen (Tylenol) 650 mg Q6H PRN PO fever > 100.4 12/20/16 03:30 12/21/16 05:16 Diphenhydramine HCl (Benadryl Inj) 25 mg Q8H PRN IV PUSH ITCHING 12/20/16 08:15 12/24/16 13:49 Levofloxacin 750 mg 750 mg DAILY PO 12/21/16 14:00 12/24/16 09:54 Penicillin G Potassium [id number] units/Sodium Chloride 100 ml @ 100 mls/hr Q4H IV 12/21/16 15:00 12/24/16 15:13 Deferoxamine Mesylate/Sodium Chloride (Desferal Inj/NS 250 ml Inj) 250 ml @ 250 mls/hr ONCE IV 12/24/16 07:00 12/27/16 07:00 12/24/16 07:59 Objective Remarks GENERAL: Younger female, lying in bed asleep in no distress. SKIN: Warm and dry. HEAD: Normocephalic. EYES: No injection or drainage. NECK: Supple, trachea midline. CARDIOVASCULAR: +S1/S2. Regular rhythm. RESPIRATORY: Lungs clear throughout. GASTROINTESTINAL: Abdomen soft, non-tender, nondistended. EXTREMITIES: No edema. NEUROLOGICAL: No obvious focal deficit. Awake, alert, and oriented x3. 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 Plan 1. Pt clinically doing better. We can transition her IV dilaudid to by mouth. 2. She has iron overload from frequent transfusions. Deferoxamine started yesterday for chelation therapy. 3. Encourage spirometry. 4. Will repeat 2D Echo. 5. Labs in am incl CBC, CMP and LDH. Attending Statement The exam, history, and the medical decision-making described in the above note were completed with the assistance of the mid-level provider. I reviewed and agree with the findings presented. I attest that I had a [id number] encounter with the patient on the same day, and personally performed and documented my assessment and findings in the medical recor Kaitlynn Mathews Dec 24, 2016 16:49 Aung Jacobo MD Dec 24, 2016 22:39
[2016-12-24] MEDS: ZOLPIDEM TARTRATE 5 MG TAB PO PRN (21:54)
[2016-12-25 00:28] VITALS: BP 114/70; PULSE 77; RESP 16; TEMP 98.3; O2SAT 94
[2016-12-25] MEDS: HYDROmorphone HCL PF 1 MG/ML VIAL IV PUSH PRN ×5 (02:07→23:32)
[2016-12-25] MEDS: PENICILLIN G POTASSIUM INJ 3,000,000 UNITS in SODIUM CHLORIDE 0.9% INJ 100 ML IV SCH ×6 (02:09→22:26)
[2016-12-25 05:16] VITALS: BP 101/61; PULSE 83; RESP 16; TEMP 97.6; O2SAT 94
[2016-12-25] MEDS: diphenhydrAMINE HCL 50 MG/ML VIAL IV PUSH PRN ×3 (06:15→18:34)
[2016-12-25 08:30] LABS: AUTOMATED NEUTROPHIL # 7.5 TH/MM3 (1.8-7.7); BASOPHIL # 0.2 TH/MM3 (0-0.2); BASOPHIL % 1.2 % (0.0-2.0); EOSINOPHIL # 0.7 TH/MM3 (0-0.4); EOSINOPHIL % 4.7 % (0.0-4.0); HEMATOCRIT 22.1 % (35.0-46.0); LYMPH % 30.5 % (9.0-44.0); LYMPHOCYTE # 4.3 TH/MM3 (1.0-4.8); MEAN CELL VOLUME 83.9 FL (80.0-100.0); MEAN CORPUSCULAR HEMOGLOBIN 29.8 PG (27.0-34.0); MEAN CORPUSCULAR HGB CONC 35.6 % (32.0-36.0); MONO % 9.6 % (0.0-8.0); PLATELET COUNT 457 TH/MM3 (150-450); RED BLOOD COUNT 2.64 MIL/MM3 (4.00-5.30); RED CELL DISTRIBUTION WIDTH 18.2 % (11.6-17.2); WHITE BLOOD COUNT 13.9 TH/MM3 (4.0-11.0)
[2016-12-25 08:40] LABS: HEMO FLAGS AUTO DIFF
[2016-12-25 08:53] LABS: ALKALINE PHOSPHATASE 89 U/L (45-117); ALT (GPT) 21 U/L (10-53); ANION GAP 7 MEQ/L (5-15); AST (GOT) 40 U/L (15-37); BICARBONATE 25.2 MEQ/L (21.0-32.0); BLOOD UREA NITROGEN 6 MG/DL (7-18); CHLORIDE 105 MEQ/L (98-107); GLOMERULAR FILTRATION RATE 123 ML/MIN (>89); LDH SERUM 278 U/L (84-246); POTASSIUM 3.8 MEQ/L (3.5-5.1); SODIUM (NA) 137 MEQ/L (136-145)
[2016-12-25 09:17] LABS: BANDS 6 % (0-6); BASOPHILS 2 % (0-2); CORRECTED NUCLEATED RBC 4 /100 WBC (0-0); EOSINOPHILS 7 % (0-4); MYELOCYTES 1 % (0-0); NEUTROPHIL # MANUAL DIFF 7.1 TH/MM3 (1.8-7.7); POLYS (SEG NEUTROPHILS) 44 % (16-70); WBC DIFF SAMPLE 100
[2016-12-25 09:21] LABS: SICKLE CELLS 1+ (NORMAL); TARGET CELLS 1+ (NORMAL)
[2016-12-25 09:25] LABS: PLATELET ESTIMATE SMEAR HIGH (NORMAL); PLATELET MORPHOLOGY NORMAL (NORMAL); SCAN/DIFF FINAL DIFF MANUAL
--- NOTE | 2016-12-25 10:16 | HHI.PR ---
Subjective Remarks resting comfortably with no distress. pain is improving. remains afebrile. Objective Vitals Vital Signs Date Time Temp Pulse Resp B/P Pulse Ox O2 Delivery O2 Flow Rate FiO2 12/25/16 07:34 16 12/25/16 05:16 97.6 83 16 101/61 94 12/25/16 00:28 98.3 77 16 114/70 94 12/24/16 20:33 82 12/24/16 20:25 98.0 88 16 108/58 94 12/24/16 15:50 97.9 79 20 112/61 94 12/24/16 11:50 97.4 74 20 113/62 95 I/O 12/24/16 12/24/16 12/24/16 12/25/16 12/25/16 12/25/16 07:00 15:00 23:00 07:00 15:00 23:00 Intake Total 800 ml 222 ml 500 ml 400 ml Output Total 1200 ml 700 ml 700 ml 600 ml Balance -400 ml -478 ml -200 ml -200 ml Intake Oral 800 ml 222 ml 500 ml 400 ml Output Urine Total 1200 ml 700 ml 700 ml 600 ml # Bowel Movements 1 0 0 Result Diagram: 12/25/16 0612 12/25/16 0612 Imaging Last Impressions Upper Extremity Ultrasound 12/23/16 0000 Signed Impressions: Service Date/Time: Friday, December 23, 2016 13:21 - CONCLUSION: No venous thrombosis is identified within the right upper extremity. Ernst Arias MD Chest X-Ray 12/20/16 0000 Signed Impressions: Service Date/Time: Tuesday, December 20, 2016 03:23 - CONCLUSION: No acute disease. Cory Garnett Jr., MD Objective Remarks GENERAL: This is a well-nourished, well-developed patient, in no apparent distress. CARDIOVASCULAR: Regular rate and regular rhythm without murmurs, gallops, or rubs. RESPIRATORY: Clear to auscultation. Breath sounds equal bilaterally. No wheezes , rales, or rhonchi. GASTROINTESTINAL: Abdomen soft, non-tender, nondistended. Normal, active bowel sounds MUSCULOSKELETAL: Extremities without clubbing, cyanosis, or edema. NEURO: Alert & Oriented x4 to person, place, time, situation. Moves all ext x4 Procedures none Medications and IVs Current Medications Ondansetron HCl (Zofran Inj) 4 mg ONCE ONCE IVP Last administered on 11:12; Start 12/19/16 at 10:45; Stop 12/19/16 at 10:46; Status DC Sodium Chloride 2 ml 2 ml UNSCH PRN IVF FLUSH AFTER USING IV ACCESS; Start at 10:45 Sodium Chloride (NS 1000 ml Inj) 1,000 ml @ 1,000 mls/hr Q1H ONCE IV Last administered on 12/19/16 11:12; Start 12/19/16 at 10:31; Stop 12/19/16 at 11:30 ; Status DC Hydromorphone HCl (Dilaudid Pf Inj) 1 mg ONCE ONCE IVS Last administered on 11:12; Start 12/19/16 at 10:45; Stop 12/19/16 at 10:46; Status DC Diphenhydramine HCl (Benadryl Inj) 25 mg ONCE ONCE IV Last administered on 11:12; Start 12/19/16 at 10:45; Stop 12/19/16 at 10:46; Status DC Hydromorphone HCl (Dilaudid Pf Inj) 1 mg ONCE ONCE IV PUSH Last administered on 12/19/16 13:22; Start 12/19/16 at 12:30; Stop 12/19/16 at 12:31; Status DC Albuterol Sulfate (Proair Hfa Inh) 2 puff Q6H PRN INH SHORTNESS OF BREATH; Start 12/19/16 at 13:15; Status Cancel Folic Acid (Folate) 5 mg DAILY PO Last administered on 12/24/16 09:56; Start 12/20/16 at 09:00 Hydroxyurea (Hydrea) 500 mg DAILY PO Last administered on 12/24/16 09:54; Start 12/20/16 at 09:00 Lisinopril (Prinivil) 2.5 mg DAILY PO Last administered on 12/24/16 09:55; Start 12/20/16 at 09:00 Metoprolol Succinate (Toprol Xl) 12.5 mg DAILY PO Last administered on 09:55; Start 12/20/16 at 09:00 Potassium Chloride (KCl) 20 meq ONCE ONCE PO Last administered on 12/19/16 14 :02; Start 12/19/16 at 13:15; Stop 12/19/16 at 13:16; Status DC Miscellaneous (Pill Splitter) 1 ea UNSCH PRN OTHER SEE LABEL COMMENTS; Start at 13:15 Hydromorphone HCl (Dilaudid Pf Inj) 1 mg Q4H PRN IV PUSH PAIN >5 Last administered on 12/25/16 06:15; Start 12/19/16 at 13:30 Acetaminophen/ Hydrocodone Bitart ([place] 5-325 Mg) 1 tab Q4H PRN PO PAIN < 5 Last administered on 12/20/16 01:19; Start 12/19/16 at 13:30 Ondansetron HCl 4 mg 4 mg Q8HR PRN IV PUSH NAUSEA Last administered on 14:39; Start 12/19/16 at 13:30 Sodium Chloride (NS 1000 ml Inj) 1,000 ml @ 75 mls/hr [id number] ONCE IV Last administered on 12/19/16 14:03; Start 12/19/16 at 13:30; Stop 12/20/16 at 02:49 ; Status DC Diphenhydramine HCl 25 mg 25 mg Q6H PRN PO ITCHING Last administered on 02:45; Start 12/19/16 at 13:30; Stop 12/20/16 at 08:14; Status DC Azithromycin/ Sodium Chloride (Zithromax Inj/ NS 250 ml Inj) 250 ml @ 250 mls/ hr Q24H IV Last administered on 12/20/16 15:00; Start 12/19/16 at 15:00; Stop 12/21/16 at 12:59; Status DC Albuterol Sulfate (Albuterol Neb) 2.5 mg Q6HR NEB PRN NEB SHORTNESS OF BREATH Last administered on 12/20/16 02:23; Start 12/19/16 at 14:00; Stop 12/23/16 at 14:00; Status DC Albuterol Sulfate (Ventolin Hfa Inh) 2 puff Q6H PRN INH SHORTNESS OF BREATH; Start 12/19/16 at 14:30 Zolpidem Tartrate (Ambien) 5 mg HS PRN PO SLEEP Last administered on 12/24/16 21:54; Start 12/19/16 at 21:45 Acetaminophen 650 mg 650 mg Q6H PRN PO fever > 100.4 Last administered on 05:16; Start 12/20/16 at 03:30 Sodium Chloride (NS 250 ml Inj) 250 ml @ 15 mls/hr ONCE ONCE IV Last administered on 12/20/16 04:30; Start 12/20/16 at 04:30; Stop 12/20/16 at 21:09 ; Status DC Acetaminophen (Tylenol) 650 mg Q4H PRN PO SEE LABEL COMMENTS; Start 12/20/16 at 04:30; Stop 12/20/16 at 08:31; Status DC Diphenhydramine HCl (Benadryl) 25 mg Q4H PRN PO SEE LABEL COMMENTS; Start 12/20 at 04:30; Stop 12/20/16 at 08:31; Status DC Potassium Chloride (KCl) 30 meq ONCE ONCE PO Last administered on 12/20/16 09 :08; Start 12/20/16 at 09:00; Stop 12/20/16 at 09:01; Status DC Diphenhydramine HCl 25 mg 25 mg Q8H PRN IV PUSH ITCHING Last administered on 06:15; Start 12/20/16 at 08:15 Ceftriaxone Sodium 1000 mg/ Sodium Chloride 100 ml @ 200 mls/hr Q24H IV Last administered on 12/21/16 10:17; Start 12/21/16 at 09:00; Stop 12/21/16 at 12:59 ; Status DC Sodium Chloride (NS 1000 ml Inj) 1,000 ml @ 50 mls/hr Q20H ONCE IV Last administered on 12/21/16 08:30; Start 12/21/16 at 08:30; Stop 12/22/16 at 04:29 ; Status DC Guaifenesin 200 mg 200 mg Q4H PRN PO COUGH; Start 12/21/16 at 08:30 Pharmacy Profile Note 0 ml @ 0 mls/hr UNSCH OTHER ; Start 12/21/16 at 09:00; Stop 12/21/16 at 13:00; Status DC Vancomycin HCl/ Sodium Chloride (Vancomycin Inj/ NS 250 ml Inj) 262.5 ml @ 250 mls/hr Q12H IV Last administered on 12/21/16 10:58; Start 12/21/16 at 11:00; Stop 12/21/16 at 13:00; Status DC Miscellaneous Information SPECIFIC LAB TO BE ... ONCE ONCE .XX ; Start 12/22 at 22:45; Stop 12/22/16 at 22:46; Status Cancel Levofloxacin 750 mg 750 mg DAILY PO Last administered on 12/24/16 09:54; Start 12/21/16 at 14:00 Penicillin G Potassium 8442265 units/Sodium Chloride 100 ml @ 100 mls/hr Q4H IV Last administered on 12/25/16 06:15; Start 12/21/16 at 15:00 Deferoxamine Mesylate/Sodium Chloride (Desferal Inj/NS 250 ml Inj) 250 ml @ 250 mls/hr ONCE IV Last administered on 12/24/16 07:59; Start 12/24/16 at 07: 00; Stop 12/27/16 at 07:00 A/P Assessment and Plan A/P - sickle cell painful crisis- improving slowly. continue with pain control; will change the dilaudid for breakthrough pain- resumed folic acid and hydroxyurea- cautious IV hydration in light of her cardiomyopathy. hematology consult appreciated. started on Deferoxamine. -bacteremia with E.Faecalis- started on penicillin G- echo with EF 45% and no evidence of endocarditis. venous doppler with no thrombosis right upper extremity. blood cultures negative. awaiting ID follow-up. -acute on chronic anemia; transfused with one unit of PRBC-H/H fairly stable. continue to monitor. -sepsis likely due to pneumonia; continue neb treatment. started on levaquin- oxygen as needed to keep O2 sat > 90%. sputum culture with normal respiratory ruy- will continue to monitor temps.ID following. -cardiomyopathy; resumed home meds -mild hypokalemia; replaced. -DVT prophylaxis with Lovenox Discharge Planning awaiting ID follow-up and recommendations. Bernardo Orozco MD Dec 25, 2016 10:16
[2016-12-25] MEDS: LEVOFLOXACIN 750 MG TAB PO SCH (10:25)
[2016-12-25] MEDS: HYDROXYUREA 500 MG CAP PO SCH (10:26)
[2016-12-25] MEDS: LISINOPRIL 5 MG TAB PO SCH (10:27)
[2016-12-25] MEDS: METOPROLOL SUCCINATE 25 MG EXTENDED RELEASE TAB PO SCH (10:27)
[2016-12-25] MEDS: FOLIC ACID 1 MG TAB PO SCH (10:30)
[2016-12-25 11:11] VITALS: BP 114/66; PULSE 79; RESP 20; TEMP 98.1; O2SAT 95
[2016-12-25 11:50] VITALS: BP 126/70; PULSE 78; RESP 20; TEMP 98; O2SAT 97
[2016-12-25] MEDS: ACETAMINOPHEN/HYDROcodone 325 MG/5 MG TAB PO PRN ×3 (14:34→22:25)
--- NOTE | 2016-12-25 15:02 | HHI.FF ---
Infusion Therapy Location of Infusion Therapy: Home [facility] IV Infusion Order Patient Information Patient Weight 75.1 kg Diagnosis: Diagnosis Enterococcal bacteremia, recurrent Coded Allergies: Percocet (Verified Adverse Reaction, Severe, Nausea/Vomiting, 12/19/16) AND ITCHING *MDRO Multi-Drug Resistant Organism (Verified Adverse Reaction, Unknown, Cleared 02/08/15, 12/19/16) MRSA (Chest Wound) - 02/2012 MRSA PCR Screen negative 02/06/15 and 02/08/15. Cleared per Infection Control Administer Medication Penicillin G Sodium 20 million units IV Continuous with pump Stop Treatment: January 15, 2017 Additional Information Venous access: Implanted Port Additional Instructions [x] Peripheral flush and dressing changes per protocol [x] Implanted port and central line welder: * Implanted port: 10 ml Normal Saline followed by 5 ml Heparin 100 units/ml Heparin flush after each use and monthly to maintain. [] May leave port accessed during therapy. [] May leave peripheral site accessed for duration of therapy. [x] If patient has SOB or respiratory distress, check oxygen saturation. If less than 90% or clinical signs of respiratory distress, administer oxygen at 2 L/min. via nasal cannula and notify physician. [x] Anaphylaxis/Reaction orders: * Stop infusion. * Keep IV line open with saline flush. * Notify physician. * Monitor vital signs every 15 minutes until symptoms resolve. * Check Oxygen saturation; Oxygen at 2 L/min. via nasal cannula if less than 90% or clinical signs of respiratory distress. * Administer diphenhydramine (Benadryl) 25 mg IV STAT, (unless patient has received as pre-med). May repeat once, if necessary. * Solu-Cortef 250 mg IVP over 30-60 seconds, use 100 mg vials for each dissolution. * Epinephrine (1mg/1 ml) 0.3 mg subcutaneously or IVP now with any signs of respiratory distress. * Check with physician for new additional pre-med orders if patient is re- challenged or re-treated. [x] May remove PICC line when treatment complete, after confirming with Physician. [x] If the patient is admitted to the hospital, the ED, or transferred via [facility] , complete transfer form including medication reconciliation order sheet. Laboratory Tests Weekly Labs: CBC w/diff, Creatinine (labs every Thursday - copy to ar) Lizbet Monte MD Dec 25, 2016 15:02
--- NOTE | 2016-12-25 15:05 | HHI.IDPN ---
Subjective Subjective Remarks Notes reviewed Temps better Pain seem to be improving, but states she still has pain No new (+) BC so far Echo ok Doppler US no thrombus Antibiotics PCN IV Levaquin po Lines Port Past Medical History Sickle cell Asthma Congestive heart failure Port infection Past Surgical History [id number] insertion and removal 2, last placement 2014 Cholecystectomy Allergies: Coded Allergies: Percocet (Verified Adverse Reaction, Severe, Nausea/Vomiting, 12/19/16) AND ITCHING *MDRO Multi-Drug Resistant Organism (Verified Adverse Reaction, Unknown, Cleared 02/08/15, 12/19/16) MRSA (Chest Wound) - 02/2012 MRSA PCR Screen negative 02/06/15 and 02/08/15. Cleared per Infection Control Objective . Vital Signs Date Time Temp Pulse Resp B/P Pulse Ox O2 Delivery O2 Flow Rate FiO2 12/25/16 11:50 98.0 78 20 126/70 97 12/25/16 11:11 98.1 79 20 114/66 95 12/25/16 07:34 16 12/25/16 05:16 97.6 83 16 101/61 94 12/25/16 00:28 98.3 77 16 114/70 94 12/24/16 20:33 82 12/24/16 20:25 98.0 88 16 108/58 94 12/24/16 15:50 97.9 79 20 112/61 94 12/24/16 12/24/16 12/25/16 15:00 23:00 07:00 Intake Total 222 ml 500 ml 400 ml Output Total 700 ml 700 ml 600 ml Balance -478 ml -200 ml -200 ml Intake Oral 222 ml 500 ml 400 ml Output Urine Total 700 ml 700 ml 600 ml # Bowel Movements 1 0 0 . Laboratory Tests Test 12/24/16 12/25/16 02:14 06:12 Reticulocyte Count 8.1 % Absolute Reticulocyte Count 207.8 MIL/L White Blood Count 13.9 TH/MM3 Red Blood Count 2.64 MIL/MM3 Hemoglobin 7.9 GM/DL Hematocrit 22.1 % Mean Corpuscular Volume 83.9 FL Mean Corpuscular Hemoglobin 29.8 PG Mean Corpuscular Hemoglobin 35.6 % Concent Red Cell Distribution Width 18.2 % Platelet Count 457 TH/MM3 Mean Platelet Volume 8.1 FL Neutrophils (%) (Auto) 54.0 % Lymphocytes (%) (Auto) 30.5 % Monocytes (%) (Auto) 9.6 % Eosinophils (%) (Auto) 4.7 % Basophils (%) (Auto) 1.2 % Neutrophils # (Auto) 7.5 TH/MM3 Lymphocytes # (Auto) 4.3 TH/MM3 Monocytes # (Auto) 1.3 TH/MM3 Eosinophils # (Auto) 0.7 TH/MM3 Basophils # (Auto) 0.2 TH/MM3 CBC Comment AUTO DIFF Differential Total Cells 100 Counted Neutrophils % (Manual) 44 % Band Neutrophils % 6 % Lymphocytes % 30 % Monocytes % 10 % Eosinophils % 7 % Basophils % 2 % Neutrophils # (Manual) 7.1 TH/MM3 Myelocytes 1 % Nucleated Red Blood Cells 4 /100 WBC Differential Comment FINAL DIFF MANUAL Platelet Estimate HIGH Platelet Morphology Comment NORMAL Sickle Cells 1+ Target Cells 1+ Red Cell Morphology Comment Laboratory Tests Test 12/24/16 12/25/16 02:14 06:12 Total Bilirubin 1.1 MG/DL 1.0 MG/DL Direct Bilirubin 0.2 MG/DL Indirect Bilirubin 0.9 MG/DL Lactate Dehydrogenase 289 U/L 278 U/L Sodium Level 137 MEQ/L Potassium Level 3.8 MEQ/L Chloride Level 105 MEQ/L Carbon Dioxide Level 25.2 MEQ/L Anion Gap 7 MEQ/L Blood Urea Nitrogen 6 MG/DL Creatinine 0.69 MG/DL Estimat Glomerular Filtration 123 ML/MIN Rate Random Glucose 98 MG/DL Calcium Level 8.3 MG/DL Aspartate Amino Transf 40 U/L (AST/SGOT) Alanine Aminotransferase 21 U/L (ALT/SGPT) Alkaline Phosphatase 89 U/L Total Protein 7.7 GM/DL Albumin 3.5 GM/DL Microbiology Date/Time Procedure Status Source Growth 12/23/16 06:00 Aerobic Blood Culture - Preliminary Resulted Blood Peripheral NO GROWTH IN 2 DAYS 12/23/16 06:00 Anaerobic Blood Culture - Preliminary Resulted Blood Peripheral NO GROWTH IN 2 DAYS Imaging Upper Extremity Ultrasound 12/23/16 0000 Signed Impressions: Service Date/Time: Friday, December 23, 2016 13:21 - CONCLUSION: No venous thrombosis is identified within the right upper extremity. Ernst Arias MD Chest X-Ray 12/20/16 0000 Signed Impressions: Service Date/Time: Tuesday, December 20, 2016 03:23 - CONCLUSION: No acute disease. Cory Garnett Jr., MD Last Impressions Chest X-Ray 12/20/16 0000 Signed Impressions: Service Date/Time: Tuesday, December 20, 2016 03:23 - CONCLUSION: No acute disease. Cory Garnett Jr., MD Physical Exam GENERAL: awake and alert, in no apparent distress. SKIN: Warm and dry, no generalized rash or ecchymosis. No evidence of peripheral embolic lesions. HEENT: [place] conjunctiva, no petechia or hemorrhage. No scleral icterus. No injection or drainage. Moist oral mucosa. No oral thrush. NECK: Supple, nontender, no meningeal signs. CARDIOVASCULAR: Regular rate and rhythm without murmurs, gallops, or rubs. Port in right upper chest with no swelling, redness or tenderness. RESPIRATORY: Clear to auscultation. Breath sounds equal bilaterally. No wheezes , rales. Has occasional rhonchi. GASTROINTESTINAL: Abdomen soft, non-tender, nondistended. Bowel sounds are present and normoactive. No hepato-splenomegaly, or palpable masses. No guarding. MUSCULOSKELETAL: Extremities without clubbing, cyanosis, or edema. No joint effusion, or edema noted. Good range of motion. No calf tenderness. NEUROLOGICAL: Grossly non-focal PSYCH: Calm and cooperative today LINE: Port without evidence of infection Assessment & Plan Remarks IMPRESSION Recurrent Enterococcal bacteremia, very suspicious for port infection - R/O endocarditis Sickle cell crisis Cough, due to [place], bronchitis - CXR clear RECOMMENDATION Continue IV PCN Stop levaquin Rx and leave port - if recurrent infection, then told patient that port needs to be removed due to increased risk for endocarditis Give PCN until December 18 CM to eval for home vs outpatient IV Abx Rx I have filled out infusion form Patient stable from ID standpoint to D/C Lizbet Monte MD Dec 25, 2016 15:05
[2016-12-25 15:50] VITALS: BP 115/55; PULSE 88; RESP 20; TEMP 98; O2SAT 96
[2016-12-25 19:30] VITALS: BP 117/68; PULSE 84; RESP 18; TEMP 98.8; O2SAT 96
--- NOTE | 2016-12-25 22:39 | PD.ONC.PN ---
Subjective Subjective Remarks feels better no fevers/occasional cough pain well controlled Objective Data Date Time Temp Pulse Resp B/P Pulse Ox O2 Delivery O2 Flow Rate FiO2 12/25/16 19:30 98.8 84 18 117/68 96 12/25/16 15:50 98.0 88 20 115/55 96 12/25/16 11:50 98.0 78 20 126/70 97 12/25/16 11:11 98.1 79 20 114/66 95 12/25/16 07:34 16 12/25/16 05:16 97.6 83 16 101/61 94 12/25/16 00:28 98.3 77 16 114/70 94 12/25/16 12/25/16 12/25/16 07:00 15:00 23:00 Intake Total 400 ml 581 ml Output Total 600 ml 1300 ml Balance -200 ml -719 ml Result Diagram: 12/25/1612 12/25/16 0612 Laboratory Results Laboratory Tests Test 12/25/16 06:12 White Blood Count 13.9 TH/MM3 Red Blood Count 2.64 MIL/MM3 Hemoglobin 7.9 GM/DL Hematocrit 22.1 % Mean Corpuscular Volume 83.9 FL Mean Corpuscular Hemoglobin 29.8 PG Mean Corpuscular Hemoglobin 35.6 % Concent Red Cell Distribution Width 18.2 % Platelet Count 457 TH/MM3 Mean Platelet Volume 8.1 FL Neutrophils (%) (Auto) 54.0 % Lymphocytes (%) (Auto) 30.5 % Monocytes (%) (Auto) 9.6 % Eosinophils (%) (Auto) 4.7 % Basophils (%) (Auto) 1.2 % Neutrophils # (Auto) 7.5 TH/MM3 Lymphocytes # (Auto) 4.3 TH/MM3 Monocytes # (Auto) 1.3 TH/MM3 Eosinophils # (Auto) 0.7 TH/MM3 Basophils # (Auto) 0.2 TH/MM3 CBC Comment AUTO DIFF Differential Total Cells 100 Counted Neutrophils % (Manual) 44 % Band Neutrophils % 6 % Lymphocytes % 30 % Monocytes % 10 % Eosinophils % 7 % Basophils % 2 % Neutrophils # (Manual) 7.1 TH/MM3 Myelocytes 1 % Nucleated Red Blood Cells 4 /100 WBC Differential Comment FINAL DIFF MANUAL Platelet Estimate HIGH Platelet Morphology Comment NORMAL Sickle Cells 1+ Target Cells 1+ Red Cell Morphology Comment Sodium Level 137 MEQ/L Potassium Level 3.8 MEQ/L Chloride Level 105 MEQ/L Carbon Dioxide Level 25.2 MEQ/L Anion Gap 7 MEQ/L Blood Urea Nitrogen 6 MG/DL Creatinine 0.69 MG/DL Estimat Glomerular Filtration 123 ML/MIN Rate Random Glucose 98 MG/DL Calcium Level 8.3 MG/DL Total Bilirubin 1.0 MG/DL Aspartate Amino Transf 40 U/L (AST/SGOT) Alanine Aminotransferase 21 U/L (ALT/SGPT) Alkaline Phosphatase 89 U/L Lactate Dehydrogenase 278 U/L Total Protein 7.7 GM/DL Albumin 3.5 GM/DL Culture Results Microbiology Date/Time Procedure Status Source Growth 12/23/16 06:00 Aerobic Blood Culture - Preliminary Resulted Blood Peripheral NO GROWTH IN 2 DAYS 12/23/16 06:00 Anaerobic Blood Culture - Preliminary Resulted Blood Peripheral NO GROWTH IN 2 DAYS Administered Medications Medications (Trade) Dose Ordered Sig/Pavel Route PRN Reason Start Time Stop Time Status Last Admin Dose Admin Folic Acid (Folate) 5 mg DAILY PO 12/20/16 09:00 12/25/16 10:30 Hydroxyurea (Hydrea) 500 mg DAILY PO 12/20/16 09:00 12/25/16 10:26 Lisinopril (Prinivil) 2.5 mg DAILY PO 12/20/16 09:00 12/25/16 10:27 Metoprolol Succinate (Toprol Xl) 12.5 mg DAILY PO 12/20/16 09:00 12/25/16 10:27 Hydromorphone HCl (Dilaudid Pf Inj) 1 mg Q4H PRN IV PUSH BREAKTHROUGH PAIN 12/19/16 13:30 12/25/16 19:41 Acetaminophen/ Hydrocodone Bitart ([place] 5-325 Mg) 1 tab Q4H PRN PO PAIN < 5 12/19/16 13:30 12/20/16 01:19 Ondansetron HCl (Zofran Inj) 4 mg Q8HR PRN IV PUSH NAUSEA 12/19/16 13:30 12/20/16 14:39 Zolpidem Tartrate (Ambien) 5 mg HS PRN PO SLEEP 12/19/16 21:45 12/24/16 21:54 Acetaminophen (Tylenol) 650 mg Q6H PRN PO fever > 100.4 12/20/16 03:30 4/23/17 05:16 Diphenhydramine HCl 25 mg 25 mg Q8H PRN IV PUSH ITCHING 12/20/16 08:15 12/25/16 18:34 Penicillin G Potassium [id number] units/Sodium Chloride 100 ml @ 100 mls/hr Q4H IV 12/21/16 15:00 12/25/16 22:26 Deferoxamine Mesylate/Sodium Chloride (Desferal Inj/NS 250 ml Inj) 250 ml @ 250 mls/hr ONCE IV 12/24/16 07:00 12/27/16 07:00 12/24/16 07:59 Acetaminophen/ Hydrocodone Bitart ([place] 5-325 Mg) 2 tab Q4H PRN PO PAIN >5 12/25/16 10:15 12/25/16 22:25 Objective Remarks GENERAL: nad SKIN: Warm and dry. LYMPHATIC: No adenopathy. CARDIOVASCULAR: Regular rate and rhythm without murmurs. RESPIRATORY: Breath sounds equal bilaterally. No accessory muscle use. GASTROINTESTINAL: Abdomen soft, non-tender, nondistended. EXTREMITIES: No cyanosis, or edema. 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 Plan 1. Sickle cell crisis: Hb stable. oxygenating well. Encourage spirometry. 2 D echo showed slightly low EF 40-45%. PA pressure 36 consistent with PAH 2. Iron Overload: IV Deferoxamine sdaily 3, Bacteremia/E faecalis infection on antibiotics OK to d/s from hematology perspective Aung Jacobo MD Dec 25, 2016 22:39
[2016-12-25] MEDS: ZOLPIDEM TARTRATE 5 MG TAB PO PRN (23:31)
[2016-12-26] VITALS: BP 118/69; PULSE 82; RESP 17; TEMP 98.7; O2SAT 96
[2016-12-26] MEDS: PENICILLIN G POTASSIUM INJ 3,000,000 UNITS in SODIUM CHLORIDE 0.9% INJ 100 ML IV SCH ×3 (02:26→11:00)
[2016-12-26] MEDS: ACETAMINOPHEN/HYDROcodone 325 MG/5 MG TAB PO PRN ×3 (02:26→10:30)
[2016-12-26] MEDS: HYDROmorphone HCL PF 1 MG/ML VIAL IV PUSH PRN ×3 (03:27→11:38)
[2016-12-26] MEDS: diphenhydrAMINE HCL 50 MG/ML VIAL IV PUSH PRN ×2 (03:27→11:38)
[2016-12-26 04:00] VITALS: BP 123/77; PULSE 81; RESP 19; TEMP 98.4; O2SAT 98
[2016-12-26] MEDS: HYDROXYUREA 500 MG CAP PO SCH (07:25)
[2016-12-26] MEDS: FOLIC ACID 1 MG TAB PO SCH (07:26)
[2016-12-26] MEDS: METOPROLOL SUCCINATE 25 MG EXTENDED RELEASE TAB PO SCH (07:26)
[2016-12-26] MEDS: LISINOPRIL 5 MG TAB PO SCH (07:26)
[2016-12-26 08:00] VITALS: BP 121/67; PULSE 82; RESP 18; TEMP 98.2; O2SAT 97
--- NOTE | 2016-12-26 10:23 | HHI.PR ---
Subjective Remarks resting comfortably with no distress. pain is better controlled. no fever. no new complaints. Objective Vitals Vital Signs Date Time Temp Pulse Resp B/P Pulse Ox O2 Delivery O2 Flow Rate FiO2 12/26/16 08:00 98.2 82 18 121/67 97 12/26/16 04:00 98.4 81 19 123/77 98 12/26/16 00:00 98.7 82 17 118/69 96 12/25/16 19:30 98.8 84 18 117/68 96 12/25/16 15:50 98.0 88 20 115/55 96 12/25/16 11:50 98.0 78 20 126/70 97 12/25/16 11:11 98.1 79 20 114/66 95 I/O 12/25/16 12/25/16 12/25/16 12/26/16 12/26/16 12/26/16 07:00 15:00 23:00 07:00 15:00 23:00 Intake Total 400 ml 581 ml 480 ml 1590 ml Output Total 600 ml 1300 ml 1000 ml Balance -200 ml -719 ml -520 ml 1590 ml Intake Oral 400 ml 581 ml 480 ml 480 ml IV Total 1110 ml Output Urine Total 600 ml 1300 ml 1000 ml # Voids 1 # Bowel Movements 0 1 0 0 Result Diagram: 12/25/16 0612 12/25/16 0612 Imaging Last Impressions Upper Extremity Ultrasound 12/23/16 0000 Signed Impressions: Service Date/Time: Friday, December 23, 2016 13:21 - CONCLUSION: No venous thrombosis is identified within the right upper extremity. Ernst Arias MD Chest X-Ray 12/20/16 0000 Signed Impressions: Service Date/Time: Tuesday, December 20, 2016 03:23 - CONCLUSION: No acute disease. Cory Garnett Jr., MD Objective Remarks GENERAL: This is a well-nourished, well-developed patient, in no apparent distress. CARDIOVASCULAR: Regular rate and regular rhythm without murmurs, gallops, or rubs. RESPIRATORY: Clear to auscultation. Breath sounds equal bilaterally. No wheezes , rales, or rhonchi. GASTROINTESTINAL: Abdomen soft, non-tender, nondistended. Normal, active bowel sounds MUSCULOSKELETAL: Extremities without clubbing, cyanosis, or edema. NEURO: Alert & Oriented x4 to person, place, time, situation. Moves all ext x4 Procedures none Medications and IVs Current Medications Ondansetron HCl (Zofran Inj) 4 mg ONCE ONCE IVP Last administered on 11:12; Start 12/19/16 at 10:45; Stop 12/19/16 at 10:46; Status DC Sodium Chloride 2 ml 2 ml UNSCH PRN IVF FLUSH AFTER USING IV ACCESS; Start at 10:45 Sodium Chloride (NS 1000 ml Inj) 1,000 ml @ 1,000 mls/hr Q1H ONCE IV Last administered on 12/19/16 11:12; Start 12/19/16 at 10:31; Stop 12/19/16 at 11:30 ; Status DC Hydromorphone HCl (Dilaudid Pf Inj) 1 mg ONCE ONCE IVS Last administered on 11:12; Start 12/19/16 at 10:45; Stop 12/19/16 at 10:46; Status DC Diphenhydramine HCl (Benadryl Inj) 25 mg ONCE ONCE IV Last administered on 11:12; Start 12/19/16 at 10:45; Stop 12/19/16 at 10:46; Status DC Hydromorphone HCl (Dilaudid Pf Inj) 1 mg ONCE ONCE IV PUSH Last administered on 12/19/16 13:22; Start 12/19/16 at 12:30; Stop 12/19/16 at 12:31; Status DC Albuterol Sulfate (Proair Hfa Inh) 2 puff Q6H PRN INH SHORTNESS OF BREATH; Start 12/19/16 at 13:15; Status Cancel Folic Acid (Folate) 5 mg DAILY PO Last administered on 12/26/16 07:26; Start 12/20/16 at 09:00 Hydroxyurea (Hydrea) 500 mg DAILY PO Last administered on 12/26/16 07:25; Start 12/20/16 at 09:00 Lisinopril (Prinivil) 2.5 mg DAILY PO Last administered on 12/26/16 07:26; Start 12/20/16 at 09:00 Metoprolol Succinate (Toprol Xl) 12.5 mg DAILY PO Last administered on 07:26; Start 12/20/16 at 09:00 Potassium Chloride (KCl) 20 meq ONCE ONCE PO Last administered on 12/19/16 14 :02; Start 12/19/16 at 13:15; Stop 12/19/16 at 13:16; Status DC Miscellaneous (Pill Splitter) 1 ea UNSCH PRN OTHER SEE LABEL COMMENTS; Start at 13:15 Hydromorphone HCl (Dilaudid Pf Inj) 1 mg Q4H PRN IV PUSH BREAKTHROUGH PAIN Last administered on 12/26/16 07:28; Start 12/19/16 at 13:30 Acetaminophen/ Hydrocodone Bitart ([place] 5-325 Mg) 1 tab Q4H PRN PO PAIN < 5 Last administered on 12/20/16 01:19; Start 12/19/16 at 13:30 Ondansetron HCl 4 mg 4 mg Q8HR PRN IV PUSH NAUSEA Last administered on 14:39; Start 12/19/16 at 13:30 Sodium Chloride (NS 1000 ml Inj) 1,000 ml @ 75 mls/hr [id number] ONCE IV Last administered on 12/19/16 14:03; Start 12/19/16 at 13:30; Stop 12/20/16 at 02:49 ; Status DC Diphenhydramine HCl 25 mg 25 mg Q6H PRN PO ITCHING Last administered on 02:45; Start 12/19/16 at 13:30; Stop 12/20/16 at 08:14; Status DC Azithromycin/ Sodium Chloride (Zithromax Inj/ NS 250 ml Inj) 250 ml @ 250 mls/ hr Q24H IV Last administered on 12/20/16 15:00; Start 12/19/16 at 15:00; Stop 12/21/16 at 12:59; Status DC Albuterol Sulfate (Albuterol Neb) 2.5 mg Q6HR NEB PRN NEB SHORTNESS OF BREATH Last administered on 12/20/16 02:23; Start 12/19/16 at 14:00; Stop 12/23/16 at 14:00; Status DC Albuterol Sulfate (Ventolin Hfa Inh) 2 puff Q6H PRN INH SHORTNESS OF BREATH; Start 12/19/16 at 14:30 Zolpidem Tartrate (Ambien) 5 mg HS PRN PO SLEEP Last administered on 12/25/16 23:31; Start 12/19/16 at 21:45 Acetaminophen 650 mg 650 mg Q6H PRN PO fever > 100.4 Last administered on 05:16; Start 12/20/16 at 03:30 Sodium Chloride (NS 250 ml Inj) 250 ml @ 15 mls/hr ONCE ONCE IV Last administered on 12/20/16 04:30; Start 12/20/16 at 04:30; Stop 12/20/16 at 21:09 ; Status DC Acetaminophen (Tylenol) 650 mg Q4H PRN PO SEE LABEL COMMENTS; Start 12/20/16 at 04:30; Stop 12/20/16 at 08:31; Status DC Diphenhydramine HCl (Benadryl) 25 mg Q4H PRN PO SEE LABEL COMMENTS; Start 12/20 at 04:30; Stop 12/20/16 at 08:31; Status DC Potassium Chloride (KCl) 30 meq ONCE ONCE PO Last administered on 12/20/16 09 :08; Start 12/20/16 at 09:00; Stop 12/20/16 at 09:01; Status DC Diphenhydramine HCl 25 mg 25 mg Q8H PRN IV PUSH ITCHING Last administered on 03:27; Start 12/20/16 at 08:15 Ceftriaxone Sodium 1000 mg/ Sodium Chloride 100 ml @ 200 mls/hr Q24H IV Last administered on 12/21/16 10:17; Start 12/21/16 at 09:00; Stop 12/21/16 at 12:59 ; Status DC Sodium Chloride (NS 1000 ml Inj) 1,000 ml @ 50 mls/hr Q20H ONCE IV Last administered on 12/21/16 08:30; Start 12/21/16 at 08:30; Stop 12/22/16 at 04:29 ; Status DC Guaifenesin 200 mg 200 mg Q4H PRN PO COUGH; Start 12/21/16 at 08:30 Pharmacy Profile Note 0 ml @ 0 mls/hr UNSCH OTHER ; Start 12/21/16 at 09:00; Stop 12/21/16 at 13:00; Status DC Vancomycin HCl/ Sodium Chloride (Vancomycin Inj/ NS 250 ml Inj) 262.5 ml @ 250 mls/hr Q12H IV Last administered on 12/21/16 10:58; Start 12/21/16 at 11:00; Stop 12/21/16 at 13:00; Status DC Miscellaneous Information SPECIFIC LAB TO BE .. ONCE ONCE .XX ; Start 12/22 at 22:45; Stop 12/22/16 at 22:46; Status Cancel Levofloxacin 750 mg 750 mg DAILY PO Last administered on 12/25/16 10:25; Start 12/21/16 at 14:00; Stop 12/25/16 at 15:06; Status DC Penicillin G Potassium [id number] units/Sodium Chloride 100 ml @ 100 mls/hr Q4H IV Last administered on 12/26/16 06:16; Start 12/21/16 at 15:00 Deferoxamine Mesylate/Sodium Chloride (Desferal Inj/NS 250 ml Inj) 250 ml @ 250 mls/hr ONCE IV Last administered on 12/24/16 07:59; Start 12/24/16 at 07: 00; Stop 12/27/16 at 07:00 Acetaminophen/ Hydrocodone Bitart ([place] 5-325 Mg) 2 tab Q4H PRN PO PAIN >5 Last administered on 12/26/16 06:15; Start 12/25/16 at 10:15 A/P Assessment and Plan A/P - sickle cell painful crisis- improved. continue with pain control. resumed folic acid and hydroxyurea- hematology cleared for discharge. received Deferoxamine. -bacteremia with E.Faecalis- started on penicillin G- echo with EF 45% and no evidence of endocarditis. venous doppler with no thrombosis right upper extremity. blood cultures negative. d/w today and cleared for discharge with IV penicillin G. -acute on chronic anemia; transfused with one unit of PRBC-H/H fairly stable. continue to monitor. -sepsis likely due to pneumonia; continue neb treatment. received levaquin- sputum culture with normal respiratory ruy- -cardiomyopathy; resumed home meds -mild hypokalemia; replaced. -DVT prophylaxis with Lovenox Discharge Planning dc home today with f/u by pcp. see med list. d/w the patient. d/w . d/w case management. time spent 31 min. Bernardo Orozco MD Dec 26, 2016 10:23
[2016-12-26] MEDS ORDERED: HYDR-3535 PO (10:25)
--- NOTE | 2016-12-26 10:26 | HHI.DCPOC ---
Discharge Care Plan Diagnosis: (1) Acute sickle cell crisis Your Health Problems Are: Chronic Pain Cough Goals to Promote Your Health * To prevent worsening of your condition and complications * To maintain your health at the optimal level Directions to Meet Your Goals Take your medications as prescribed Follow your dietary instruction Follow activity as directed Keep your appointments as scheduled Take your immunizations and boosters as scheduled If your symptoms worsen call your PCP, if no PCP go to Urgent Care Center or Emergency Room Smoking is Dangerous to Your Health. Avoid second hand smoke Call the 24-hour hour crisis hotline for domestic abuse at Bernardo Orozco MD Dec 26, 2016 10:26
--- NOTE | 2016-12-26 10:27 | HHI.DS ---
Discharge Summary Admission Date Dec 19, 2016 at 13:00 Discharge Date: Dec 26, 2016 Admitting Diagnosis sickle cell crisis/asthma exacerbation (1) Sickle cell disease with crisis ICD Code: D57.00 Diagnosis: Principal Procedures none Brief History - From Admission patient is a 26 y/o female with history of sickle cell disease who presented to ER with generalized body ache. she says that the pain started two days ago. she says that ' the whole body aches'. she's also complaining of some cough, productive of small amount of whitish sputum. she denies any fever or chills but she says that she had a sick contact recently. CBC/BMP: 12/25/16 0612 12/25/16 0612 Significant Findings Laboratory Tests Test 12/24/16 12/25/16 02:14 06:12 Reticulocyte Count 8.1 % (0.4-3.0) Absolute Reticulocyte Count 207.8 MIL/L (20.0-150.0) Total Bilirubin 1.1 MG/DL (0.2-1.0) Indirect Bilirubin 0.9 MG/DL (0.0-0.8) Lactate Dehydrogenase 289 U/L 278 U/L (84-246) (84-246) White Blood Count 13.9 TH/MM3 (4.0-11.0) Red Blood Count 2.64 MIL/MM3 (4.00-5.30) Hemoglobin 7.9 GM/DL (11.6-15.3) Hematocrit 22.1 % (35.0-46.0) Red Cell Distribution Width 18.2 % (11.6-17.2) Platelet Count 457 TH/MM3 (150-450) Monocytes (%) (Auto) 9.6 % (0.0-8.0) Eosinophils (%) (Auto) 4.7 % (0.0-4.0) Monocytes # (Auto) 1.3 TH/MM3 (0-0.9) Eosinophils # (Auto) 0.7 TH/MM3 (0-0.4) Monocytes % 10 % (0-8) Eosinophils % 7 % (0-4) Myelocytes 1 % (0-0) Nucleated Red Blood Cells 4 /100 WBC (0-0) Platelet Estimate HIGH (NORMAL) Sickle Cells 1+ (NORMAL) Target Cells 1+ (NORMAL) Blood Urea Nitrogen 6 MG/DL (7-18) Calcium Level 8.3 MG/DL (8.5-10.1) Aspartate Amino Transf 40 U/L (15-37) (AST/SGOT) Imaging Last Impressions Upper Extremity Ultrasound 12/23/16 0000 Signed Impressions: Service Date/Time: Friday, December 23, 2016 13:21 - CONCLUSION: No venous thrombosis is identified within the right upper extremity. Ernst Arias MD Chest X-Ray 12/20/16 0000 Signed Impressions: Service Date/Time: Tuesday, December 20, 2016 03:23 - CONCLUSION: No acute disease. Cory Garnett Jr., MD PE at Discharge GENERAL: This is a well-nourished, well-developed patient, in no apparent distress. CARDIOVASCULAR: Regular rate and regular rhythm without murmurs, gallops, or rubs. RESPIRATORY: Clear to auscultation. Breath sounds equal bilaterally. No wheezes , rales, or rhonchi. GASTROINTESTINAL: Abdomen soft, non-tender, nondistended. Normal, active bowel sounds MUSCULOSKELETAL: Extremities without clubbing, cyanosis, or edema. NEURO: Alert & Oriented x4 to person, place, time, situation. Moves all ext x4 Hospital Course - sickle cell painful crisis- improved. continue with pain control. resumed folic acid and hydroxyurea- hematology cleared for discharge. received Deferoxamine. -bacteremia with E.Faecalis- started on penicillin G- echo with EF 45% and no evidence of endocarditis. venous doppler with no thrombosis right upper extremity. blood cultures negative. d/w today and cleared for discharge with IV penicillin G. -acute on chronic anemia; transfused with one unit of PRBC-H/H fairly stable. continue to monitor. -sepsis likely due to pneumonia; continue neb treatment. received levaquin- sputum culture with normal respiratory ruy- -cardiomyopathy; resumed home meds -mild hypokalemia; replaced. -DVT prophylaxis with Lovenox Pt Condition on Discharge: Good Discharge Disposition: Disch w/ Home Health Serv Discharge Time: > 30 minutes Discharge Instructions DIET: Follow Instructions for: Heart Healthy Diet Activities you can perform: Regular-No Restrictions Follow up Referrals: Oncology PCP Follow-up Continued Medications: Albuterol 6.7 GM Inh (Proventil Hfa 6.7 GM Inh) 90 Mcg/Act Aer 2 PUFF INH Q6H PRN SHORTNESS OF BREATH #1 Ref 0 INHALER Diphenhydramine (Benadryl Allergy) 25 Mg Tab 25 MG PO DAILY PRN ALLERGIES Ref 0 TAB Folic Acid (Folate) 1 Mg Tab 5 MG PO DAILY anemia #30 TAB Hydrocodone-Acetaminophen (Lortab) 10-325 Mg Tab 1 TAB PO Q6H PRN PAIN #12 Ref 0 TAB (This prescription has been renewed) Hydroxyurea (Hydrea) 500 Mg Cap 500 MG PO DAILY sickle cell Days 30 Ref 0 CAP Lisinopril (Lisinopril) 5 Mg Tab 2.5 MG PO DAILY cardiomyopathy #30 TAB Metoprolol Succinate ER 24 HR (Metoprolol Succinate ER 24 HR) 25 Mg Tab 12.5 MG PO DAILY cardiomyopathy #30 TAB Zolpidem (Ambien) 5 Mg Tab 5 MG PO HS INSOMNIA Ref 0 TAB Bernardo Orozco MD Dec 26, 2016 10:27
--- NOTE | 2016-12-26 10:27 | HHI.FF ---
Face to Face Verification Diagnosis: (1) Bacteremia Home Health Nursing Order: Medical education Signs/symptoms of disease process Medication education-adverse effect IV medication administration I have seen patient Marce Frazier on 12/26/16. My clinical findings support the need for the requested home health care services because: Ltd mobility - disease progression I certify that my clinical findings support that this patient is homebound because: Unsafe to leave home unassisted Bernardo Orozco MD Dec 26, 2016 10:27
[2016-12-26 12:00] VITALS: BP 119/62; PULSE 79; RESP 18; TEMP 98.9; O2SAT 98
--- NOTE | 2016-12-26 12:07 | PD.ONC.PN ---
Subjective Subjective Remarks Afebrile overnight. Patient resting comfortably. She complains of continued pain, "everywhere." Eating well and having BM. Objective Data Date Time Temp Pulse Resp B/P Pulse Ox O2 Delivery O2 Flow Rate FiO2 12/26/16 08:00 98.2 82 18 121/67 97 12/26/16 04:00 98.4 81 19 123/77 98 12/26/16 00:00 98.7 82 17 118/69 96 12/25/16 19:30 98.8 84 18 117/68 96 12/25/16 15:50 98.0 88 20 115/55 96 Result Diagram: 12/25/1661112/25/16 06 Administered Medications Medications (Trade) Dose Ordered Sig/Pavel Route PRN Reason Start Time Stop Time Status Last Admin Dose Admin Folic Acid (Folate) 5 mg DAILY PO 12/20/16 09:00 12/26/16 07:26 Hydroxyurea (Hydrea) 500 mg DAILY PO 12/20/16 09:00 12/26/16 07:25 Lisinopril (Prinivil) 2.5 mg DAILY PO 12/20/16 09:00 12/26/16 07:26 Metoprolol Succinate (Toprol Xl) 12.5 mg DAILY PO 12/20/16 09:00 12/26/16 07:26 Hydromorphone HCl (Dilaudid Pf Inj) 1 mg Q4H PRN IV PUSH BREAKTHROUGH PAIN 12/19/16 13:30 12/26/16 11:38 Acetaminophen/ Hydrocodone Bitart ([place] 5-325 Mg) 1 tab Q4H PRN PO PAIN < 5 12/19/16 13:30 12/20/16 01:19 Ondansetron HCl (Zofran Inj) 4 mg Q8HR PRN IV PUSH NAUSEA 12/19/16 13:30 12/20/16 14:39 Zolpidem Tartrate (Ambien) 5 mg HS PRN PO SLEEP 12/19/16 21:45 12/25/16 23:31 Acetaminophen (Tylenol) 650 mg Q6H PRN PO fever > 100.4 12/20/16 03:30 12/21/16 05:16 Diphenhydramine HCl 25 mg 25 mg Q8H PRN IV PUSH ITCHING 12/20/16 08:15 12/26/16 11:38 Penicillin G Potassium [id number] units/Sodium Chloride 100 ml @ 100 mls/hr Q4H IV 12/21/16 15:00 12/26/16 11:00 Deferoxamine Mesylate/Sodium Chloride (Desferal Inj/NS 250 ml Inj) 250 ml @ 250 mls/hr ONCE IV 12/24/16 07:00 12/27/16 07:00 12/24/16 07:59 Acetaminophen/ Hydrocodone Bitart ([place] 5-325 Mg) 2 tab Q4H PRN PO PAIN >5 12/25/16 10:15 12/26/16 10:30 Objective Remarks GENERAL: Young woman, sitting up in bed watching TV SKIN: Warm and dry. HEAD: Normocephalic. EYES: No injection or drainage. NECK: Supple, trachea midline. CARDIOVASCULAR: Regular rate and rhythm RESPIRATORY: Breath sounds equal bilaterally. No accessory muscle use. GASTROINTESTINAL: Abdomen soft, non-tender, nondistended. EXTREMITIES: No cyanosis NEUROLOGICAL: No obvious focal deficit. Awake, alert, and oriented x3. 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 Plan 1. clear for discharge 2. continue IV PCN per ID 3. follow up with hematology once discharged Attending Statement The exam, history, and the medical decision-making described in the above note were completed with the assistance of the mid-level provider. I reviewed and agree with the findings presented. I attest that I had a [id number] encounter with the patient on the same day, and personally performed and documented my assessment and findings in the medical record. Alejandra Spencer Dec 26, 2016 12:07 uAng Jacobo MD January 16, 2017 23:32
== END 2016-12-26 13:32 | disposition home or self-care (01) | DRG 871 ==
LOC: NEPE 10:10 → NEDA 13:00 → HOCA 18:30
PROVIDERS: ADMIT Internal Medicine; ATTEND Internal Medicine
PROC: 30243N1 Transfusion of Nonautologous Red Blood Cells into Central Vein, Percutaneous Approach (ICD-10-PCS; principal; 2016-12-20)
DX: A41.9 Sepsis, unspecified organism (principal); J18.9 Pneumonia, unspecified organism; D57.00 Hb-SS disease with crisis, unspecified; I42.9 Cardiomyopathy, unspecified; I50.9 Heart failure, unspecified; J45.901 Unspecified asthma with (acute) exacerbation; E83.111 Hemochromatosis due to repeated red blood cell transfusions; E87.6 Hypokalemia; B95.2 Enterococcus as the cause of diseases classified elsewhere; J20.9 Acute bronchitis, unspecified; Z91.19 Patient's noncompliance with other medical treatment and regimen
CPT/HCPCS: 36430; 71010; 80048; 80053; 81001; 82247; 82248; 82728; 83615; 85007; 85025; 85027; 85044; 86140; 86850; 86900; 86901; 86902; 86920; 86922; 87040; 87070; 87186; 87205; 87804; 93306; 93971; 94664; 96374; 96375; J0456; J0696; J0895; J1170; J1200; J2405; J2540; J3370; J7030; J7050; J7613; P9016

== ENCOUNTER 2017-01-10 11:05 | Inpatient (IN) | payer MEDICAID ==
[2017-01-10] VITALS (7 sets, daily range): BP systolic 120–134; BP diastolic 67–82; PULSE 68–88; RESP 14–19; TEMP 98–98.8; O2SAT 97–99
[~2017-01-10] VITALS: Ht 165.1 cm; Wt 70.9 kg
--- NOTE | 2017-01-10 11:58 | PD ---
HPI Chief Complaint: Sickle Cell Time Seen by Provider: 11:35 Travel History International Travel<30 days: No Contact w/Intl Traveler<30days: No Traveled to known affect area: No History of Present Illness HPI Patient comes in complaining of uncontrolled sickle cell pain ongoing the past 2 days. Patient states she's been taking her home medication of hydrocodone with no relief of her symptoms. Patient denies any fevers, nausea, vomiting, chest pain, shortness of breath, abdominal pain, , loss or change in bowel or bladder, headaches, or dizziness. Patient denies anything making her symptoms worse. PFSH Past Medical History Anemia: Yes Arthritis: No Asthma: Yes Autoimmune Disease: No Blood Disorders: Yes Anxiety: Yes Depression: No Heart Rhythm Problems: No Cancer: No Cardiovascular Problems: Yes (CHF) High Cholesterol: No Chemotherapy: No Chest Pain: Yes Congestive Heart Failure: Yes COPD: No Cerebrovascular Accident: No Diabetes: No Diminished Hearing: No Endocrine: No Gastrointestinal Disorders: No GERD: No Genitourinary: No Headaches: Yes Hiatal Hernia: No Heparin Induced Thrombocytopen: No Hypertension: No Immune Disorder: No Implanted Vascular Access Dvce: Yes Kidney Stones: No Musculoskeletal: No Neurologic: Yes Psychiatric: Yes Reproductive: No Respiratory: Yes Immunizations Current: Yes Migraines: Yes Pneumonia: Yes Radiation Therapy: No Renal Failure: No Seizures: No Sickle Cell Disease: Yes Sleep Apnea: No Thyroid Disease: No Ulcer: No PNEUMOCCOCAL Vaccine (Year): 1 : 1 Para: 1 Miscarriage: 0 : 0 Tubal Ligation: Yes Past Surgical History Abdominal Surgery: No AICD: No Arteriovenous Shunt: No Body Medical Devices: INFUSAPORT (3RD) Cardiac Surgery: No Section: Yes (X 1) Cholecystectomy: Yes Ear Surgery: No Endocrine Surgery: No Eye Surgery: No Genitourinary Surgery: No Gynecologic Surgery: Yes (c section) Hysterectomy: No Insulin Pump: No Joint Replacement: No Neurologic Surgery: No Oral Surgery: No Pacemaker: No Thoracic Surgery: No Other Surgery: Yes (PORTX3 PLACED AND REMOVED, gallstones) Social History Alcohol Use: No Tobacco Use: No Substance Use: No Allergies-Medications (Allergen,Severity, Reaction): Coded Allergies: Percocet (Verified Adverse Reaction, Severe, Nausea/Vomiting, 01/10/17) AND ITCHING *MDRO Multi-Drug Resistant Organism (Verified Adverse Reaction, Unknown, Cleared 02/08/15, 12/19/16) MRSA (Chest Wound) - 02/2012 MRSA PCR Screen negative 02/06/15 and 02/08/15. Cleared per Infection Control Reported Meds & Prescriptions Reported Meds & Active Scripts Active Lortab (Hydrocodone-Acetaminophen) 10-325 Mg Tab 1 Tab PO Q6H PRN Hydrea (Hydroxyurea) 500 Mg Cap 500 Mg PO DAILY 30 Days Metoprolol Succinate ER 24 HR (Metoprolol Succinate) 25 Mg Tab 12.5 Mg PO DAILY Lisinopril 5 Mg Tab 2.5 Mg PO DAILY Folate (Folic Acid) 1 Mg Tab 5 Mg PO DAILY Reported Benadryl Allergy (Diphenhydramine HCl) 25 Mg Tab 25 Mg PO DAILY PRN Ambien (Zolpidem Tartrate) 5 Mg Tab 5 Mg PO HS Proventil Hfa 6.7 GM Inh (Albuterol Sulfate) 90 Mcg/Act Aer 2 Puff INH Q6H PRN Review of Systems Except as stated in HPI: all other systems reviewed are Neg Physical Exam Narrative GENERAL: Well-developed, overly nourished, in no acute distress, and non-ill appearing. SKIN: Focused skin assessment warm and dry. HEAD: Atraumatic. Normocephalic. EYES: Pupils equal and round. EOMI. No scleral icterus. No injection or drainage. ENT: No nasal bleeding or discharge. Mucous membranes pink and moist. NECK: Trachea midline. Supple. No nuclear rigidity. CARDIOVASCULAR: Regular rate and rhythm. No murmur appreciated. RESPIRATORY: No accessory muscle use. No respiratory distress. Clear to auscultation. Breath sounds equal bilaterally. MUSCULOSKELETAL: No obvious deformities. No clubbing. No cyanosis. No edema. Full range of motion. NEUROLOGICAL: Awake and alert. No obvious cranial nerve deficits. Motor grossly within normal limits. Normal speech. PSYCHIATRIC: Appropriate mood and affect; insight and judgment normal. Data Data Last Documented VS Vital Signs Date Time Temp Pulse Resp B/P Pulse Ox O2 Delivery O2 Flow Rate FiO2 01/10/17 14:58 14 01/10/17 12:29 70 123/75 98 Room Air 01/10/17 11:07 98.3 Orders Basic Metabolic Panel (Bmp) (01/10/17 11:48) Complete Blood Count With Diff (01/10/17 11:48) Retic Count (01/10/17 11:48) Chest, Single Ap (01/10/17 11:48) Ecg Monitoring (01/10/17 11:48) Iv Access Insert/Monitor (01/10/17 11:48) Oximetry (01/10/17 11:48) Ondansetron Inj (Zofran Inj) (01/10/17 12:00) Sodium Chloride 0.9% Flush (Ns Flush) (01/10/17 12:00) Hydromorphone Pf Inj (Dilaudid Pf Inj) (01/10/17 12:00) Diphenhydramine Inj (Benadryl Inj) (01/10/17 12:00) Urinalysis - C+S If Indicated (01/10/17 11:50) Ed Urine Pregnancytest Poc (01/10/17 11:50) Sodium Chlor 0.9% 1000 Ml Inj (Ns 1000 M (01/10/17 12:45) Hydromorphone Pf Inj (Dilaudid Pf Inj) (01/10/17 13:15) Admit Order (Ed Use Only) (01/10/17 15:27) Labs Laboratory Tests Test 01/10/17 01/10/17 11:45 12:00 White Blood Count 11.1 TH/MM3 Red Blood Count 2.44 MIL/MM3 Hemoglobin 7.2 GM/DL Hematocrit 20.6 % Mean Corpuscular Volume 84.1 FL Mean Corpuscular Hemoglobin 29.6 PG Mean Corpuscular Hemoglobin 35.2 % Concent Red Cell Distribution Width 16.7 % Platelet Count 594 TH/MM3 Mean Platelet Volume 8.2 FL Neutrophils (%) (Auto) 58.5 % Lymphocytes (%) (Auto) 20.2 % Monocytes (%) (Auto) 13.6 % Eosinophils (%) (Auto) 2.8 % Basophils (%) (Auto) 4.9 % Neutrophils # (Auto) 6.5 TH/MM3 Lymphocytes # (Auto) 2.2 TH/MM3 Monocytes # (Auto) 1.5 TH/MM3 Eosinophils # (Auto) 0.3 TH/MM3 Basophils # (Auto) 0.5 TH/MM3 CBC Comment AUTO DIFF Differential Comment AUTO DIFF CONFIRMED Platelet Estimate HIGH Platelet Morphology Comment NORMAL Sickle Cells 1+ Karimi-Lubeck Bodies PRESENT Acanthocytes OCC Reticulocyte Count 5.5 % Absolute Reticulocyte Count 135.5 MIL/L Sodium Level 141 MEQ/L Potassium Level 3.6 MEQ/L Chloride Level 110 MEQ/L Carbon Dioxide Level 23.0 MEQ/L Anion Gap 8 MEQ/L Blood Urea Nitrogen 6 MG/DL Creatinine 0.66 MG/DL Estimat Glomerular Filtration 130 ML/MIN Rate Random Glucose 86 MG/DL Calcium Level 8.7 MG/DL Urine Color YELLOW Urine Turbidity HAZY Urine pH 6.0 Urine Specific [place] 1.011 Urine Protein TRACE mg/dL Urine Glucose (UA) NEG mg/dL Urine Ketones NEG mg/dL Urine Occult Blood SMALL Urine Nitrite NEG Urine Bilirubin NEG Urine Urobilinogen LESS THAN 2.0 MG/DL Urine Leukocyte Esterase TRACE Urine RBC 1 /hpf Urine WBC 2 /hpf Urine Squamous Epithelial 13 /hpf Cells Urine Amorphous Sediment FEW Urine Bacteria FEW /hpf Urine Mucus FEW /lpf Microscopic Urinalysis Comment CULT NOT INDICATED MDM Medical Decision Making Medical Screen Exam Complete: Yes Emergency Medical Condition: Yes Medical Record Reviewed: Yes Interpretation(s) Chest x-ray read by radiologist shows: No acute disease. Differential Diagnosis Sickle cell pain, sickle cell crisis, acute chest syndrome, electrolyte abnormality, UTI, other Narrative Course Upon reevaluation reports she continues pain is somewhat better after receiving medication here in the emergency department. Patient states that she just recently established with a new primary care doctor that she sees on Thursday. 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 Discussed patient with Dr. Khalil, who saw and evaluated the patient recommends having patient placed in observation for possible transfusion and pain control. Discussed all. Plan of care with patient is agreeable for admission. All questions were answered. Patient remained stable throughout ED course. Physician Communication Physician Communication [id number] Landis, who is agreeable to admit the patient. Diagnosis Primary Impression: Sickle cell crisis Admitting Information Admitting Physician Requests: Observation Condition: Stable Clive Castillo January 10, 2017 11:57
[2017-01-10] MEDS ORDERED: diphenhydrAMINE HCL 50 MG/ML VIAL IV ONE (12:00)
[2017-01-10] MEDS ORDERED: SODIUM CHLORIDE 0.9% FLUSH 10 ML FLUSH IVF PRN (12:00)
[2017-01-10] MEDS ORDERED: HYDROmorphone HCL PF 1 MG/ML VIAL IVS ONE (12:00)
[2017-01-10] MEDS ORDERED: ONDANSETRON HCL 4 MG/2 ML VIAL IVP ONE (12:00)
--- NOTE | 2017-01-10 12:12 | RADRPT ---
EXAM DATE/TIME: 01/10/2017 11:59 [facility] COMPARISON: CHEST SINGLE AP, December 20, 2016, 3:23. INDICATIONS : Short of breath. MEDICAL HISTORY : Sickle Cell disease. SURGICAL HISTORY : Cholecystectomy. Infusaport ENCOUNTER: Initial ACUITY: 2 days PAIN SCORE: 9/10 LOCATION: Bilateral chest FINDINGS: A single view of the chest demonstrates the lungs to be symmetrically aerated without evidence of mas s, infiltrate or effusion. Right-sided [id number] with tip in the right atrium. The cardiomediast inal contours are unremarkable. Osseous structures are intact. CONCLUSION: No acute disease. Derik Gates MD on January 10, 2017 at 12:10 Board Certified Radiologist. This report was verified electronically.
[2017-01-10 12:35] LABS: AUTOMATED NEUTROPHIL # 6.5 TH/MM3 (1.8-7.7); BASOPHIL # 0.5 TH/MM3 (0-0.2); BASOPHIL % 4.9 % (0.0-2.0); EOSINOPHIL # 0.3 TH/MM3 (0-0.4); EOSINOPHIL % 2.8 % (0.0-4.0); LYMPH % 20.2 % (9.0-44.0); LYMPHOCYTE # 2.2 TH/MM3 (1.0-4.8); MEAN CELL VOLUME 84.1 FL (80.0-100.0); MEAN CORPUSCULAR HEMOGLOBIN 29.6 PG (27.0-34.0); MEAN CORPUSCULAR HGB CONC 35.2 % (32.0-36.0); MONO % 13.6 % (0.0-8.0); NEUT % 58.5 % (16.0-70.0); PLATELET COUNT 594 TH/MM3 (150-450); RED BLOOD COUNT 2.44 MIL/MM3 (4.00-5.30); RED CELL DISTRIBUTION WIDTH 16.7 % (11.6-17.2); RETIC % 5.5 % (0.4-3.0); WHITE BLOOD COUNT 11.1 TH/MM3 (4.0-11.0)
[2017-01-10 12:37] LABS: HEMO FLAGS AUTO DIFF; REVIEW FLAG FINAL
[2017-01-10 12:41] LABS: HEMATOCRIT 20.6 % (35.0-46.0)
[2017-01-10 12:43] LABS: BACTERIA, URINE FEW /hpf; BLOOD, URINE SMALL (NEG); COMMENT (UR) CULT NOT INDICATED; CULTURE IF INDICATED CULT NOT INDICATED; GLUCOSE,URINE NEG (NEG); KETONE, URINE NEG (NEG); MUCUS URINE FEW /lpf (OCC); NITRITE,URINE NEG (NEG); SQUAMOUS EPITHELIAL CELL URINE 13 /hpf (0-5); URINE COLOR YELLOW (YELLW/STRAW)
[2017-01-10] MEDS ORDERED: SODIUM CHLOR 0.9% 1000 ML INJ 1,000 ML IV ONE (12:45)
[2017-01-10 13:13] LABS: POTASSIUM 3.6 MEQ/L (3.5-5.1)
[2017-01-10] MEDS ORDERED: HYDROmorphone HCL PF 1 MG/ML VIAL IV PUSH ONE (13:15)
[2017-01-10 13:19] LABS: ACANTHOCYTES OCC (NORMAL)
[2017-01-10 13:22] LABS: HOWELL-JOLLY BODIES PRESENT (NONE SEEN); PLATELET ESTIMATE SMEAR HIGH (NORMAL); PLATELET MORPHOLOGY NORMAL (NORMAL); SICKLE CELLS 1+ (NORMAL)
[2017-01-10 13:23] LABS: SCAN/DIFF AUTO DIFF CONFIRMED
[2017-01-10] MEDS ORDERED: ONDANSETRON HCL 4 MG/2 ML VIAL IVP PRN (15:45)
[2017-01-10] MEDS ORDERED: ACETAMINOPHEN 325 MG TAB PO PRN (15:45)
[2017-01-10] MEDS ORDERED: NALOXONE HCL 0.4 MG/ML AMP IV PRN (15:45)
[2017-01-10] MEDS ORDERED: SODIUM CHLORIDE 0.9% FLUSH 10 ML FLUSH IV FLUSH PRN (15:45)
--- NOTE | 2017-01-10 16:12 | HHI.HP ---
HPI Service [facility] Primary Care Physician Ernst Lopez M.D. Admission Diagnosis sickle cell crisis Diagnoses: Chief Complaint: back, arm, leg pain (Evelyn Valle) Travel History International Travel<30 Days: No Contact w/Intl Traveler <30 Da: No Traveled to Known Affected Are: No (Evelyn Valle) History of Present Illness This is a 26 year old female with hx of sickle cell with multiple admissions, non compliance, anemia, recent admission for bacteremia with Enterococcus Faecalis, non ischemic cardiomyopathy. Patient presented to the emergency room complaining of arm, legs, back pain for the last 3 days. States that she has not used Lortab since she was last admitted in November, has been using Tylenol, Advil or Aleve without any relief. Indicates she has been compliant with taking medications, she is on hydroxyurea and folic acid. She has some shortness of breath which is chronic, no chest pain. Denies any recent fever, no chills. Indicates that she doesn't follow up with her word processing supervisor (Dr. Jacobo ) as she was discharged from his services 2 months ago. Patient was evaluated in the emergency room, vital signs were stable. CBC remarkable for anemia, hemoglobin 7.2, hematocrit 20.6, platelets 594. This appears to be her baseline. BMP was unremarkable. UA was unremarkable. Chest x-ray did not reveal any acute findings. Patient was given 1 L IV fluids and hydromorphone 2 mg total. During my interview and assessment, patient answered a phone call and became very upset and started screaming. It was very difficult to conduct interview and assessment. Patient is admitted for further evaluation and treatment. (Evelyn Valle) Review of Systems ROS Limitations: Other (CRYING ON THE PHONE, DIFFICULT TO ASSESS) Cardiovascular: COMPLAINS OF: Dyspnea on Exertion Musculoskeletal: COMPLAINS OF: Back pain (ARM AND LEG PAIN ) (Evelyn Valle) Past Family Social History Past Medical History frequent admissions for sickle cell crisis recent admission for bacteremia, E faecalis non compliance sickle cell disease cardiomyopathy Past Surgical History port placement cholecystectomy Reported Medications Reported Meds & Active Scripts Active Lortab (Hydrocodone-Acetaminophen) 10-325 Mg Tab 1 Tab PO Q6H PRN Hydrea (Hydroxyurea) 500 Mg Cap 500 Mg PO DAILY 30 Days Metoprolol Succinate ER 24 HR (Metoprolol Succinate) 25 Mg Tab 12.5 Mg PO DAILY Lisinopril 5 Mg Tab 2.5 Mg PO DAILY Folate (Folic Acid) 1 Mg Tab 5 Mg PO DAILY Reported Benadryl Allergy (Diphenhydramine HCl) 25 Mg Tab 25 Mg PO DAILY PRN Ambien (Zolpidem Tartrate) 5 Mg Tab 5 Mg PO HS Proventil Hfa 6.7 GM Inh (Albuterol Sulfate) 90 Mcg/Act Aer 2 Puff INH Q6H PRN ( Evelyn Valle) Allergies: Coded Allergies: Percocet (Verified Adverse Reaction, Severe, Nausea/Vomiting, 01/10/17) AND ITCHING *MDRO Multi-Drug Resistant Organism (Verified Adverse Reaction, Unknown, Cleared 02/08/15, 12/19/16) MRSA (Chest Wound) - 02/2012 MRSA PCR Screen negative 02/06/15 and 02/08/15. Cleared per Infection Control Active Ordered Medications Inpatient Medications Acetaminophen (Tylenol) 650 mg Q4H PRN PO TEMP > 100.4; Start 01/10/17 at 15:45 Diphenhydramine HCl (Benadryl Inj) 25 mg ONCE ONCE IV Last administered on 12:07; Start 01/10/17 at 12:00; Stop 01/10/17 at 12:01; Status DC Hydromorphone HCl (Dilaudid Pf Inj) 1 mg ONCE ONCE IVS Last administered on 12:08; Start 01/10/17 at 12:00; Stop 01/10/17 at 12:01; Status DC Hydromorphone HCl 1 mg 1 mg ONCE ONCE IV PUSH Last administered on 01/10/17 13:33; Start 01/10/17 at 13:15; Stop 01/10/17 at 13:16; Status DC Naloxone HCl (Narcan Inj) 0.4 mg UNSCH PRN IV SEE LABEL COMMENTS; Start at 15:45 Ondansetron HCl (Zofran Inj) 4 mg Q6H PRN IVP NAUSEA OR VOMITING; Start at 15:45 Sodium Chloride (NS 1000 ml Inj) 1,000 ml @ 100 mls/hr Q10H IV ; Start at 15:32 Sodium Chloride (NS Flush) 2 ml BID IV FLUSH ; Start 01/10/17 at 21:00 Family History unable to obtain Social History no documented tobacco, illegal abuse, occ. ETOH. (Evelyn Valle) Physical Exam Vital Signs Vital Signs Date Time Temp Pulse Resp B/P Pulse Ox O2 Delivery O2 Flow Rate FiO2 01/10/17 14:58 14 01/10/17 12:30 14 01/10/17 12:29 70 14 123/75 98 Room Air 01/10/17 12:24 88 14 125/67 99 Room Air 01/10/17 12:24 75 14 98 Room Air 01/10/17 11:07 98.3 78 14 134/82 99 Physical Exam GENERAL: This is a well-nourished, well-developed patient, crying and arguing on the phone SKIN: No rashes, ecchymoses or lesions. Cool and dry. HEAD: Atraumatic. Normocephalic. No temporal or scalp tenderness. EYES: Pupils equal round and reactive. Extraocular motions intact. No scleral icterus. No injection or drainage. ENT: Nose without bleeding, purulent drainage or septal hematoma. Throat without erythema, tonsillar hypertrophy or exudate. Uvula midline. Airway patent. NECK: Trachea midline. No JVD or lymphadenopathy. Supple, nontender, no meningeal signs. CARDIOVASCULAR: Regular rate and rhythm without murmurs, gallops, or rubs. RESPIRATORY: Clear to auscultation. Breath sounds equal bilaterally. No wheezes , rales, or rhonchi. GASTROINTESTINAL: Abdomen soft, non-tender, nondistended. No hepato-splenomegaly , or palpable masses. No guarding. MUSCULOSKELETAL: Extremities without clubbing, cyanosis, or edema. No joint tenderness, effusion, or edema noted. No calf tenderness. Negative Homans sign bilaterally. NEUROLOGICAL: Grossly normal. Laboratory Laboratory Tests Test 01/10/17 01/10/17 11:45 12:00 White Blood Count 11.1 Red Blood Count 2.44 Hemoglobin 7.2 Hematocrit 20.6 Mean Corpuscular Volume 84.1 Mean Corpuscular Hemoglobin 29.6 Mean Corpuscular Hemoglobin 35.2 Concent Red Cell Distribution Width 16.7 Platelet Count 594 Mean Platelet Volume 8.2 Neutrophils (%) (Auto) 58.5 Lymphocytes (%) (Auto) 20.2 Monocytes (%) (Auto) 13.6 Eosinophils (%) (Auto) 2.8 Basophils (%) (Auto) 4.9 Neutrophils # (Auto) 6.5 Lymphocytes # (Auto) 2.2 Monocytes # (Auto) 1.5 Eosinophils # (Auto) 0.3 Basophils # (Auto) 0.5 CBC Comment AUTO DIFF Differential Comment AUTO DIFF CONFIRMED Platelet Estimate HIGH Platelet Morphology Comment NORMAL Sickle Cells 1+ Karimi-Dushore Bodies PRESENT Acanthocytes OCC Reticulocyte Count 5.5 Absolute Reticulocyte Count 135.5 Sodium Level 141 Potassium Level 3.6 Chloride Level 110 Carbon Dioxide Level 23.0 Anion Gap 8 Blood Urea Nitrogen 6 Creatinine 0.66 Estimat Glomerular Filtration 130 Rate Random Glucose 86 Calcium Level 8.7 Urine Color YELLOW Urine Turbidity HAZY Urine pH 6.0 Urine Specific [place] 1.011 Urine Protein TRACE Urine Glucose (UA) NEG Urine Ketones NEG Urine Occult Blood SMALL Urine Nitrite NEG Urine Bilirubin NEG Urine Urobilinogen LESS THAN 2.0 Urine Leukocyte Esterase TRACE Urine RBC 1 Urine WBC 2 Urine Squamous Epithelial 13 Cells Urine Amorphous Sediment FEW Urine Bacteria FEW Urine Mucus FEW Microscopic Urinalysis Comment CULT NOT INDICATED (Evelyn Valle) Result Diagram: 01/10/17 1145 01/10/17 1145 Imaging Last Impressions Chest X-Ray 01/10/17 1148 Signed Impressions: Service Date/Time: Thursday, January 10, 2017 11:59 - CONCLUSION: No acute disease. Derik Gates MD (Evelyn Valle) Assessment and Plan Problem List: (1) Sickle cell crisis (2) Anemia (3) Cardiomyopathy (4) Non compliance with medical treatment Assessment and Plan Admit to Dr. Landis 26-year-old female with complaint of back, leg and arm pain. History of sickle cell, multiple admissions and noncompliance. Recent admission for bacteremia, denies fever, chills, no evidence of infection. Sickle cell crisis pain, hx of noncompliance. -Continue with IV fluids, normal saline at 75/hr. Monitor closely for signs and symptoms of fluid overload -Continue with hydroxyurea, folic acid -Consult hematology for evaluation -Dilaudid 1 mg IVP q 3 PRN for severe pain. Transition to oral narcotics as soon as possible. Pt. with history of narcotic seeking behavior. Hemolytic anemia, hemoglobin 7.2, hematocrit 20.6. Patient appears at baseline Continue to monitor H&H, pt at baseline, no need to transfuse Cardiomyopathy, stable -Monitor closely, avoid fluid overload Home medications reviewed, initiated as indicated. SCDs for DVT prophylaxis Pt. very difficult to speak to, refuses to hang up. Non compliance continues to be a problem, she is likely to return to hospital due to above problems. Plan of care discussed with attending and RN. Further management of the patient will be dependent on the hospital course. This patient was seen by myself and Dr. Landis, this H/P is written on his behalf. (Evelyn Valle) Assessment and Plan evaluation was done yesterday as above chart was reviewed plan of care was chasity singh unable to sign yesterday bc of computer problem (Jackie Ladnis MD) Physician Certification 2 Midnight Certification Type: Admission for Inpatient Services Order for Inpatient Services The services are ordered in accordance with Medicare regulations or non- Medicare payer requirements, as applicable. In the case of services not specified as inpatient-only, they are appropriately provided as inpatient services in accordance with the 2-midnight benchmark. Estimated LOS (days): 2 2 days is the estimated time the patient will need to remain in the hospital, assuming treatment plan goals are met and no additional complications. Post-Hospital Plan: Home (Evelyn Valle) Problem Qualifiers (1) Anemia: (2) Cardiomyopathy: Qualified Code: I42.9 - Cardiomyopathy, unspecified type Evelyn Valle January 10, 2017 16:12 Jackie Landis MD January 11, 2017 10:15
[2017-01-10] MEDS ORDERED: PILL SPLITTER OTHER PRN (17:15)
--- NOTE | 2017-01-10 18:09 | MB ---
cc: MONCHO REYNOLDS AWAIS DATE OF CONSULTATION: 01/10/2017. REASON FOR CONSULTATION: Sickle cell crisis. PATIENT PROFILE: The patient is a 26-year-old female. She is single. She has a son age four. She lives with her mother. She is on disability due to her illness. She does not smoke and does not drink. HISTORY OF PRESENT ILLNESS: The patient is a 26-year-old female with a history of sickle-cell disease, hemoglobin SS. She has had multiple hospitalizations. There have been issues regarding compliance. She was hospitalized on 12/22/2016 and seen by my partner, Dr. Aung Jacobo. She had Enterococcus faecalis septicemia at that time and was treated with antibiotics. According to the discharge instructions, the patient was to take hydroxyurea 500 milligrams daily. It is my understanding that she was to take Exjade. She does not know how many pills she was supposed to take and therefore it does not appear that she was taking the Exjade, which was prescribed because of a ferritin of [id number] on 12/23/2016. She also has cardiomyopathy, probably from iron overload. An echocardiogram dated 12/23/2016 shows an ejection fraction in the range of 40% to 45% with diffuse hypokinesia. She returned to the emergency room today complaining of uncontrolled pain throughout much of her body with lightheadedness, dizziness and weakness. She stated that she has not had any narcotics in two weeks time. She tells me that she has taken the hydroxyurea but is not certain about any of the other medicines that were prescribed. PAST SURGICAL HISTORY: 1. Port placement. 2. Cholecystectomy. PAST MEDICAL HISTORY: 1. Sickle-cell disease. 2. Cardiomyopathy. 3. Transfusion-related hemochromatosis. 4. Noncompliance. FAMILY HISTORY: Noncontributory to her current events. MEDICATIONS: 1. Hydroxyurea 500 milligrams a day. 2. Folic acid. It is not clear to me that she is taking any of the other medications. REVIEW OF SYSTEMS: Review of systems is notable for a recent menstrual period. She has had diffuse aches and pains all over. She has had occasional lightheadedness. LABORATORY FINDINGS: Hemoglobin 7.2, white count is 11,000 and platelets are 594,000. Absolute reticulocyte count is 135. Lytes, BUN and creatinine are normal. IMAGING STUDIES: Chest x-ray dated 01/10/2017 shows a right-sided Infusaport. The lungs are unremarkable. PHYSICAL EXAMINATION: GENERAL: Physical exam reveals a female who complains of being in diffuse pain and is calm one moment and then agitated the next and requesting pain medication. VITAL SIGNS: Her blood pressure is 120/70, respiratory rate 14, pulse 70, afebrile and 98% saturation. HEAD, EYES, EARS, NOSE, THROAT: Head is normocephalic. The sclerae and conjunctivae are normal. Oropharynx unremarkable. LYMPHATIC: No adenopathy. HEART: Regular rhythm. LUNGS: Clear. ABDOMEN: Abdomen soft. No enlargement of the liver or spleen EXTREMITIES: Trace edema. MUSCULOSKELETAL: Diffuse tenderness of the thoracic spine. NEUROLOGIC: No focal weakness. ASSESSMENT: 1. Sickle-cell crisis. It is very difficult to have a handle on how much pain she is having. There is no way to measure this. There is no laboratory study which reflects the degree of pain. RECOMMENDATIONS: 1. Dilaudid 1 milligram IV q.3 h as this appears to help her and is not a lot of narcotic. 2. On discharge, I would probably give her between 50 and 70 pills of Lortab 10/325. Apparently this helps with her pain and she is spending much of her time in and out of the emergency room. 3. She is taking hydroxyurea 500 milligrams one tablet a day, or at least I am hoping that she is taking the hydroxyurea. Usually one sees an elevated MCV, and her MCV has not changed suggesting that she may not be taking the medicine. I have asked her to increase the hydroxyurea to two tablets a day; this should not be problematic as her white count is 11,000 and the platelets are 594,000. She may need increasing amounts of hydroxyurea to increase her hemoglobin. 4. She needs to resume the Exjade. I do not know if she has the pills. 5. She has to follow up with Dr. Aung Jacobo, who is her yard hostler. 6. The above situation was discussed with MELO Tellez. MD CHRIS Sinclair/BUDDY /5:34 PM 5:50 PM AL
[2017-01-10] MEDS: HYDROmorphone HCL PF 1 MG/ML VIAL IV PRN ×2 (20:09→23:57)
[2017-01-10] MEDS: SODIUM CHLORIDE 0.9% FLUSH 10 ML FLUSH IV FLUSH SCH (20:13)
[2017-01-10] MEDS: SODIUM CHLOR 0.9% 1000 ML INJ 1,000 ML IV SCH (20:13)
[2017-01-10] MEDS: diphenhydrAMINE HCL 50 MG/ML VIAL IV PRN (23:57)
[2017-01-10] MEDS: TEMAZEPAM 15 MG CAP PO PRN (23:57)
[2017-01-11] VITALS: BP 127/73; PULSE 81; RESP 18; TEMP 97.4; O2SAT 97
[2017-01-11 04:00] VITALS: BP 111/60; PULSE 87; RESP 18; TEMP 97.7; O2SAT 97
[2017-01-11] MEDS: diphenhydrAMINE HCL 50 MG/ML VIAL IV PRN ×5 (04:07→20:49)
[2017-01-11] MEDS: HYDROmorphone HCL PF 1 MG/ML VIAL IV PRN ×5 (04:07→20:50)
[2017-01-11 06:48] LABS: MEAN CELL VOLUME 84.6 FL (80.0-100.0); MEAN CORPUSCULAR HEMOGLOBIN 30.1 PG (27.0-34.0); MEAN CORPUSCULAR HGB CONC 35.6 % (32.0-36.0); PLATELET COUNT 514 TH/MM3 (150-450); RED BLOOD COUNT 2.27 MIL/MM3 (4.00-5.30); WHITE BLOOD COUNT 14.6 TH/MM3 (4.0-11.0)
[2017-01-11 06:51] LABS: REVIEW FLAG FINAL
[2017-01-11 06:52] LABS: HEMATOCRIT 19.2 % (35.0-46.0)
[2017-01-11 08:00] VITALS: BP 104/67; PULSE 91; RESP 18; TEMP 98.5; O2SAT 96
[2017-01-11 08:12] LABS: ALKALINE PHOSPHATASE 72 U/L (45-117); ALT (GPT) 14 U/L (10-53); ANION GAP 6 MEQ/L (5-15); AST (GOT) 40 U/L (15-37); BLOOD UREA NITROGEN 5 MG/DL (7-18); CHLORIDE 109 MEQ/L (98-107); GLOMERULAR FILTRATION RATE 130 ML/MIN (>89); POTASSIUM 3.8 MEQ/L (3.5-5.1); SODIUM (NA) 141 MEQ/L (136-145); TOTAL BILIRUBIN ADULT 1.9 MG/DL (0.2-1.0)
[2017-01-11] MEDS: METOPROLOL SUCCINATE 25 MG EXTENDED RELEASE TAB PO SCH (08:21)
[2017-01-11] MEDS: LISINOPRIL 5 MG TAB PO SCH (08:22)
[2017-01-11] MEDS: FOLIC ACID 1 MG TAB PO SCH (08:22)
[2017-01-11] MEDS: SODIUM CHLORIDE 0.9% FLUSH 10 ML FLUSH IV FLUSH SCH ×2 (08:23→20:54)
[2017-01-11] MEDS: HYDROXYUREA 500 MG CAP PO SCH (08:26)
[2017-01-11] MEDS: SODIUM CHLOR 0.9% 1000 ML INJ 1,000 ML IV SCH ×2 (10:00→20:50)
--- NOTE | 2017-01-11 10:03 | PD.ONC.PN ---
Subjective Subjective Remarks feeling better and pain more manageable. Objective Data Date Time Temp Pulse Resp B/P Pulse Ox O2 Delivery O2 Flow Rate FiO2 01/11/17 08:00 98.5 91 18 104/67 96 01/11/17 04:00 97.7 87 18 111/60 97 01/11/17 00:00 97.4 81 18 127/73 97 01/10/17 20:00 98.0 70 19 125/70 98 01/10/17 17:55 68 14 120/70 98 01/10/17 16:45 98.8 72 18 128/73 99 01/10/17 15:00 68 14 120/75 97 Room Air 01/10/17 14:58 14 01/10/17 12:30 14 01/10/17 12:29 70 14 123/75 98 Room Air 01/10/17 12:24 88 14 125/67 99 Room Air 01/10/17 12:24 75 14 98 Room Air 01/10/17 11:07 98.3 78 14 134/82 99 Result Diagram: 01/11/17 0620 01/11/17 0620 Laboratory Results Laboratory Tests Test 01/10/17 01/10/17 01/11/17 01/11/17 11:45 12:00 06:20 07:40 White Blood Count 11.1 TH/MM3 14.6 TH/MM3 Red Blood Count 2.44 MIL/MM3 2.27 MIL/MM3 Hemoglobin 7.2 GM/DL 6.8 GM/DL Hematocrit 20.6 % 19.2 % Mean Corpuscular Volume 84.1 FL 84.6 FL Mean Corpuscular Hemoglobin 29.6 PG 30.1 PG Mean Corpuscular Hemoglobin 35.2 % 35.6 % Concent Red Cell Distribution Width 16.7 % 17.0 % Platelet Count 594 TH/MM3 514 TH/MM3 Mean Platelet Volume 8.2 FL 7.7 FL Neutrophils (%) (Auto) 58.5 % Lymphocytes (%) (Auto) 20.2 % Monocytes (%) (Auto) 13.6 % Eosinophils (%) (Auto) 2.8 % Basophils (%) (Auto) 4.9 % Neutrophils # (Auto) 6.5 TH/MM3 Lymphocytes # (Auto) 2.2 TH/MM3 Monocytes # (Auto) 1.5 TH/MM3 Eosinophils # (Auto) 0.3 TH/MM3 Basophils # (Auto) 0.5 TH/MM3 CBC Comment AUTO DIFF Differential Comment AUTO DIFF CONFIRMED Platelet Estimate HIGH Platelet Morphology Comment NORMAL Sickle Cells 1+ Karimi-Comstock Bodies PRESENT Acanthocytes OCC Reticulocyte Count 5.5 % Absolute Reticulocyte Count 135.5 MIL/L Sodium Level 141 MEQ/L 141 MEQ/L Potassium Level 3.6 MEQ/L 3.8 MEQ/L Chloride Level 110 MEQ/L 109 MEQ/L Carbon Dioxide Level 23.0 MEQ/L 26.0 MEQ/L Anion Gap 8 MEQ/L 6 MEQ/L Blood Urea Nitrogen 6 MG/DL 5 MG/DL Creatinine 0.66 MG/DL 0.66 MG/DL Estimat Glomerular Filtration 130 ML/MIN 130 ML/MIN Rate Random Glucose 86 MG/DL 123 MG/DL Calcium Level 8.7 MG/DL 7.5 MG/DL Urine Color YELLOW Urine Turbidity HAZY Urine pH 6.0 Urine Specific [place] 1.011 Urine Protein TRACE mg/dL Urine Glucose (UA) NEG mg/dL Urine Ketones NEG mg/dL Urine Occult Blood SMALL Urine Nitrite NEG Urine Bilirubin NEG Urine Urobilinogen LESS THAN 2.0 MG/DL Urine Leukocyte Esterase TRACE Urine RBC 1 /hpf Urine WBC 2 /hpf Urine Squamous Epithelial 13 /hpf Cells Urine Amorphous Sediment FEW Urine Bacteria FEW /hpf Urine Mucus FEW /lpf Microscopic Urinalysis Comment CULT NOT INDICATED Total Bilirubin 1.9 MG/DL Aspartate Amino Transf 40 U/L (AST/SGOT) Alanine Aminotransferase 14 U/L (ALT/SGPT) Alkaline Phosphatase 72 U/L Total Protein 6.8 GM/DL Albumin 3.2 GM/DL Blood Type AB POSITIVE Antibody Screen NEGATIVE Crossmatch Leukocyte-Reduced Red Blood Cells Blood Bank Comment Imaging Studies Last 24 hours Impressions Chest X-Ray 01/10/17 1148 Signed Impressions: Service Date/Time: Tuesday, January 10, 2017 11:59 - CONCLUSION: No acute disease. Derik Gates MD Administered Medications Medications (Trade) Dose Ordered Sig/Pavel Route PRN Reason Start Time Stop Time Status Last Admin Dose Admin Sodium Chloride (NS 1000 ml Inj) 1,000 ml @ 100 mls/hr Q10H IV 01/10/17 15:32 01/10/17 20:13 Sodium Chloride (NS Flush) 2 ml BID IV FLUSH 01/10/17 21:00 01/11/17 08:23 Ondansetron HCl (Zofran Inj) 4 mg Q6H PRN IVP NAUSEA OR VOMITING 01/10/17 15:45 01/10/17 23:57 Folic Acid (Folate) 5 mg DAILY PO 01/11/17 09:00 01/11/17 08:22 Hydroxyurea (Hydrea) 500 mg DAILY PO 01/11/17 09:00 01/11/17 08:26 Lisinopril (Prinivil) 2.5 mg DAILY PO 01/11/17 09:00 01/11/17 08:22 Metoprolol Succinate (Toprol Xl) 12.5 mg DAILY PO 01/11/17 09:00 01/11/17 08:21 Hydromorphone HCl (Dilaudid Pf Inj) 1 mg Q4H PRN IV PAIN SCALE 1 TO 10 01/10/17 19:15 01/11/17 08:23 Diphenhydramine HCl (Benadryl Inj) 25 mg Q4H PRN IV ITCHING 01/10/17 20:45 01/11/17 08:23 Temazepam (Restoril) 15 mg HS PRN PO INSOMNIA 01/10/17 20:45 01/10/17 23:57 Objective Remarks GENERAL: Well-nourished. calm and appears more comfortable. SKIN: Warm and dry. HEAD: Normocephalic. EYES: No scleral icterus. No injection or drainage. NECK: Supple, trachea midline. No JVD or lymphadenopathy. LYMPHATIC: No adenopathy. CARDIOVASCULAR: Regular rate and rhythm without murmurs. RESPIRATORY: Breath sounds equal bilaterally. No accessory muscle use. GASTROINTESTINAL: Abdomen soft, non-tender, nondistended. EXTREMITIES: No cyanosis, or edema. MUSCULOSKELETAL: Adequate muscle tone. NEUROLOGICAL: No obvious focal deficit. Awake, alert, and oriented x3. PSYCHIATRIC: Appropriate mood and affect; insight and judgment normal. 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 will probably be able to go home tomorrow and would give her 50-70 tablets of lortab and hopefully she will be able to stay out of hospital. I spoke to her about the need to take the exjade as she has a cardiomyopathy and will not have a long life expectancy if she continues to have increasing iron stores. In spite of low hemoglobin would not transfuse due to risk of worsening hematochromatosis. I will ask case management to work with her to make sure she has the pills she needs. I also reviewed with her how [facility]-UREA works and can decrease painful episodes. Per Tenorio MD January 11, 2017 10:03
--- NOTE | 2017-01-11 10:46 | HHI.PR ---
Subjective Remarks Still has some pain Pain medication is helping No other complaint Review of system for 10 point system otherwise unremarkable Patient was seen and examined with in battery charger tester on the floor Objective Objective Results - Vital Signs Date Time Temp Pulse Resp B/P Pulse Ox O2 Delivery O2 Flow Rate FiO2 01/11/17 08:00 98.5 91 18 104/67 96 01/11/17 04:00 97.7 87 18 111/60 97 01/11/17 00:00 97.4 81 18 127/73 97 01/10/17 20:00 98.0 70 19 125/70 98 01/10/17 17:55 68 14 120/70 98 01/10/17 16:45 98.8 72 18 128/73 99 01/10/17 15:00 68 14 120/75 97 Room Air 01/10/17 14:58 14 01/10/17 12:30 14 01/10/17 12:29 70 14 123/75 98 Room Air 01/10/17 12:24 88 14 125/67 99 Room Air 01/10/17 12:24 75 14 98 Room Air 01/10/17 11:07 98.3 78 14 134/82 99 I/O 01/10/17 01/10/17 01/10/17 01/11/17 01/11/17 01/11/17 07:00 15:00 23:00 07:00 15:00 23:00 Intake Total 720 ml 480 ml Balance 720 ml 480 ml Intake Oral 720 ml 480 ml # Voids 3 4 # Bowel Movements 1 Result Diagram: 01/11/17 0620 01/11/17 0620 Imaging Last Impressions Chest X-Ray 01/10/17 1148 Signed Impressions: Service Date/Time: Tuesday, January 10, 2017 11:59 - CONCLUSION: No acute disease. Derik Gates MD Other Results Laboratory Tests Test 01/10/17 01/10/17 01/11/17 01/11/17 11:45 12:00 06:20 07:40 White Blood Count 11.1 14.6 Red Blood Count 2.44 2.27 Hemoglobin 7.2 6.8 Hematocrit 20.6 19.2 Mean Corpuscular Volume 84.1 84.6 Mean Corpuscular Hemoglobin 29.6 30.1 Mean Corpuscular Hemoglobin 35.2 35.6 Concent Red Cell Distribution Width 16.7 17.0 Platelet Count 594 514 Mean Platelet Volume 8.2 7.7 Neutrophils (%) (Auto) 58.5 Lymphocytes (%) (Auto) 20.2 Monocytes (%) (Auto) 13.6 Eosinophils (%) (Auto) 2.8 Basophils (%) (Auto) 4.9 Neutrophils # (Auto) 6.5 Lymphocytes # (Auto) 2.2 Monocytes # (Auto) 1.5 Eosinophils # (Auto) 0.3 Basophils # (Auto) 0.5 CBC Comment AUTO DIFF Differential Comment AUTO DIFF CONFIRMED Platelet Estimate HIGH Platelet Morphology Comment NORMAL Sickle Cells 1+ Karimi-Lonerock Bodies PRESENT Acanthocytes OCC Reticulocyte Count 5.5 Absolute Reticulocyte Count 135.5 Sodium Level 141 141 Potassium Level 3.6 3.8 Chloride Level 110 109 Carbon Dioxide Level 23.0 26.0 Anion Gap 8 6 Blood Urea Nitrogen 6 5 Creatinine 0.66 0.66 Estimat Glomerular Filtration 130 130 Rate Random Glucose 86 123 Calcium Level 8.7 7.5 Urine Color YELLOW Urine Turbidity HAZY Urine pH 6.0 Urine Specific [place] 1.011 Urine Protein TRACE Urine Glucose (UA) NEG Urine Ketones NEG Urine Occult Blood SMALL Urine Nitrite NEG Urine Bilirubin NEG Urine Urobilinogen LESS THAN 2.0 Urine Leukocyte Esterase TRACE Urine RBC 1 Urine WBC 2 Urine Squamous Epithelial 13 Cells Urine Amorphous Sediment FEW Urine Bacteria FEW Urine Mucus FEW Microscopic Urinalysis Comment CULT NOT INDICATED Total Bilirubin 1.9 Aspartate Amino Transf 40 (AST/SGOT) Alanine Aminotransferase 14 (ALT/SGPT) Alkaline Phosphatase 72 Total Protein 6.8 Albumin 3.2 Blood Type AB POSITIVE Antibody Screen NEGATIVE Crossmatch Leukocyte-Reduced Red Blood Cells Blood Bank Comment Physical Exam Physical Exam GENERAL: This is a well-nourished, well-developed patient, lying on bed without any apparent distress SKIN: No rashes, ecchymoses or lesions. Cool and dry. HEAD: Atraumatic. Normocephalic. No temporal or scalp tenderness. EYES: Pupils equal round and reactive. Extraocular motions intact. No scleral icterus. No injection or drainage. ENT: Nose without bleeding, purulent drainage or septal hematoma. Throat without erythema, tonsillar hypertrophy or exudate. Uvula midline. Airway patent. NECK: Trachea midline. No JVD or lymphadenopathy. Supple, nontender, no meningeal signs. CARDIOVASCULAR: Regular rate and rhythm without murmurs, gallops, or rubs. RESPIRATORY: Clear to auscultation. Breath sounds equal bilaterally. No wheezes , rales, or rhonchi. GASTROINTESTINAL: Abdomen soft, non-tender, nondistended. No hepato-splenomegaly , or palpable masses. No guarding. MUSCULOSKELETAL: Extremities without clubbing, cyanosis, or edema. No joint tenderness, effusion, or edema noted. No calf tenderness. Negative Homans sign bilaterally. NEUROLOGICAL: Grossly normal. A/P Assessment and Plan (1) Sickle cell crisis (2) Anemia (3) Cardiomyopathy (4) Non compliance with medical treatment Plan 26-year-old female with complaint of back, leg and arm pain. History of sickle cell, multiple admissions and noncompliance. Recent admission for bacteremia, denies fever, chills, no evidence of infection. Sickle cell crisis pain, hx of noncompliance. -Continue with IV fluids, normal saline at 75/hr. Monitor closely for signs and symptoms of fluid overload -Continue with hydroxyurea, folic acid -Appreciate consultation by hematology for evaluation -Dilaudid 1 mg IVP q 3 PRN for severe pain will taper dose and time. Transition to oral narcotics as soon as possible. Pt. with history of narcotic seeking behavior. Hemolytic anemia, hemoglobin 7.2, hematocrit 20.6. Patient appears at baseline Continue to monitor H&H, pt at baseline, no need to transfuse Cardiomyopathy, stable -Monitor closely, avoid fluid overload. Patient is on Exjade noncompliant with it. Discussed with her about plans to medication Home medications reviewed, initiated as indicated. SCDs for DVT prophylaxis Non compliance continues to be a problem, she is likely to return to hospital due to above problems. Discussed with automation qa lead. Plan for hopefully discharge tomorrow on Lortabs. And no blood transfusion. Plan of care discussed with attending and RN. Further management of the patient will be dependent on the hospital course. Discussed with RN. Discussed with patient. Jackie Landis MD January 11, 2017 10:46
[2017-01-11 12:00] VITALS: BP 119/69; PULSE 90; RESP 16; TEMP 98.7; O2SAT 96
[2017-01-11 20:00] VITALS: BP 108/73; PULSE 96; RESP 17; TEMP 99.3; O2SAT 100
[2017-01-11] MEDS: TEMAZEPAM 15 MG CAP PO PRN (20:54)
[2017-01-12] VITALS: BP_SYST 108; BP_SYST 121; BP_DIAS 65; BP_DIAS 76; PULSE 88; PULSE 96; RESP 16; TEMP 98; O2SAT 98; O2SAT 99
[2017-01-12] MEDS: diphenhydrAMINE HCL 50 MG/ML VIAL IV PRN ×6 (00:44→23:02)
[2017-01-12] MEDS: HYDROmorphone HCL PF 1 MG/ML VIAL IV PRN ×6 (00:44→23:03)
[2017-01-12 04:00] VITALS: BP 121/76; PULSE 88; RESP 16; TEMP 98; O2SAT 98
[2017-01-12 08:00] VITALS: BP 112/60; PULSE 84; RESP 18; TEMP 99.1; O2SAT 97
[2017-01-12] MEDS: METOPROLOL SUCCINATE 25 MG EXTENDED RELEASE TAB PO SCH (08:48)
[2017-01-12] MEDS: FOLIC ACID 1 MG TAB PO SCH (08:48)
[2017-01-12] MEDS: SODIUM CHLORIDE 0.9% FLUSH 10 ML FLUSH IV FLUSH SCH ×2 (08:49→23:03)
[2017-01-12] MEDS: HYDROXYUREA 500 MG CAP PO SCH (08:52)
[2017-01-12 12:00] VITALS: BP 127/73; PULSE 88; RESP 16; TEMP 99.3; O2SAT 98
--- NOTE | 2017-01-12 12:27 | HHI.PR ---
Subjective Remarks Still has some pain Pain medication is helping No other complaint Review of system for 10 point system otherwise unremarkable Patient was seen and examined with in nurse charge rn on the floor Objective Objective Results - Vital Signs Date Time Temp Pulse Resp B/P Pulse Ox O2 Delivery O2 Flow Rate FiO2 01/12/17 08:00 99.1 84 18 112/60 97 01/12/17 04:00 98.0 88 16 121/76 98 01/12/17 00:00 98.0 96 16 108/65 99 01/11/17 20:00 99.3 96 17 108/73 100 I/O 01/11/17 01/11/17 01/11/17 01/12/17 01/12/17 01/12/17 07:00 15:00 23:00 07:00 15:00 23:00 Intake Total 480 ml 2753 ml 1440 ml 720 ml Output Total 1250 ml Balance 480 ml 2753 ml 1440 ml -530 ml Intake Oral 480 ml 600 ml 1440 ml 720 ml IV Total 2153 ml Output Urine Total 1250 ml # Voids 4 4 # Bowel Movements 1 1 Result Diagram: 01/11/17 0620 01/11/17 0620 Imaging Last Impressions Chest X-Ray 01/10/17 1148 Signed Impressions: Service Date/Time: Tuesday, January 10, 2017 11:59 - CONCLUSION: No acute disease. Derik Gates MD Physical Exam Physical Exam GENERAL: This is a well-nourished, well-developed patient, lying on bed without any apparent distress SKIN: No rashes, ecchymoses or lesions. Cool and dry. HEAD: Atraumatic. Normocephalic. No temporal or scalp tenderness. EYES: Pupils equal round and reactive. Extraocular motions intact. No scleral icterus. No injection or drainage. ENT: Nose without bleeding, purulent drainage or septal hematoma. Throat without erythema, tonsillar hypertrophy or exudate. Uvula midline. Airway patent. NECK: Trachea midline. No JVD or lymphadenopathy. Supple, nontender, no meningeal signs. CARDIOVASCULAR: Regular rate and rhythm without murmurs, gallops, or rubs. RESPIRATORY: Clear to auscultation. Breath sounds equal bilaterally. No wheezes , rales, or rhonchi. GASTROINTESTINAL: Abdomen soft, non-tender, nondistended. No hepato-splenomegaly , or palpable masses. No guarding. MUSCULOSKELETAL: Extremities without clubbing, cyanosis, or edema. No joint tenderness, effusion, or edema noted. No calf tenderness. Negative Homans sign bilaterally. NEUROLOGICAL: Grossly normal. A/P Assessment and Plan (1) Sickle cell crisis (2) Anemia (3) Cardiomyopathy (4) Non compliance with medical treatment Plan 26-year-old female with complaint of back, leg and arm pain. History of sickle cell, multiple admissions and noncompliance. Recent admission for bacteremia, denies fever, chills, no evidence of infection. Sickle cell crisis pain, hx of noncompliance. -IV fluids, normal saline at 75/hr. Monitor closely for signs and symptoms of fluid overload -Continue with hydroxyurea, folic acid -Appreciate consultation by hematology for evaluation -Dilaudid 1 mg IVP q 6 PRN for severe pain will taper dose and time. Transition to oral narcotics as soon as possible. Pt. with history of narcotic seeking behavior. Hemolytic anemia, hemoglobin 7.2, hematocrit 20.6. Patient appears at baseline Continue to monitor H&H, pt at baseline, no need to transfuse Cardiomyopathy, stable -Monitor closely, avoid fluid overload. Patient is on Exjade noncompliant with it. Discussed with her about plans to medication Home medications reviewed, initiated as indicated. SCDs for DVT prophylaxis Non compliance continues to be a problem, she is likely to return to hospital due to above problems. Discussed with guidance consultant yesterday. As discussed Plan for hopefully discharge on Lortabs, no blood transfused Plan of care discussed with attending and RN. Further management of the patient will be dependent on the hospital course. Discussed with RN. Discussed with patient. As usual patient was seen and examined with female RN at bedside Jackie Landis MD January 12, 2017 12:26
[2017-01-12] MEDS ORDERED: ACETAMINOPHEN/HYDROcodone 325 MG/5 MG TAB PO PRN (12:30)
[2017-01-12] MEDS: LISINOPRIL 5 MG TAB PO SCH (12:49)
[2017-01-12 16:00] VITALS: BP 111/71; PULSE 82; RESP 18; TEMP 98.9; O2SAT 97
[2017-01-12 20:00] VITALS: BP 123/72; PULSE 82; RESP 18; TEMP 98.2; O2SAT 97
[2017-01-12] MEDS: TEMAZEPAM 15 MG CAP PO PRN (23:02)
[2017-01-12] MEDS: SODIUM CHLOR 0.9% 1000 ML INJ 1,000 ML IV SCH (23:07)
[2017-01-13] VITALS: BP 121/65; PULSE 82; RESP 20; TEMP 99.2; O2SAT 98
[2017-01-13 04:00] VITALS: BP 124/72; PULSE 82; RESP 18; TEMP 97.9; O2SAT 95
[2017-01-13] MEDS: diphenhydrAMINE HCL 50 MG/ML VIAL IV PRN ×2 (04:58→11:06)
[2017-01-13] MEDS: HYDROmorphone HCL PF 1 MG/ML VIAL IV PRN ×2 (04:59→11:06)
[2017-01-13 05:55] LABS: MEAN CELL VOLUME 85.7 FL (80.0-100.0); MEAN CORPUSCULAR HEMOGLOBIN 29.4 PG (27.0-34.0); MEAN CORPUSCULAR HGB CONC 34.3 % (32.0-36.0); PLATELET COUNT 500 TH/MM3 (150-450); RED BLOOD COUNT 2.34 MIL/MM3 (4.00-5.30); RED CELL DISTRIBUTION WIDTH 16.9 % (11.6-17.2); WHITE BLOOD COUNT 17.6 TH/MM3 (4.0-11.0)
[2017-01-13 06:11] LABS: REVIEW FLAG FINAL
[2017-01-13 06:14] LABS: HEMATOCRIT 20.1 % (35.0-46.0)
[2017-01-13 08:00] VITALS: BP 132/76; PULSE 74; RESP 16; TEMP 97.8; O2SAT 97
--- NOTE | 2017-01-13 10:11 | HHI.PR ---
Subjective Remarks Patient's offering no complaint Pain medication is helping Review of system for 10 point system otherwise unremarkable Patient was seen and examined with in charge female RN on the floor Objective Objective Results - Vital Signs Date Time Temp Pulse Resp B/P Pulse Ox O2 Delivery O2 Flow Rate FiO2 01/13/17 08:00 97.8 74 16 132/76 97 01/13/17 04:00 97.9 82 18 124/72 95 01/13/17 00:00 99.2 82 20 121/65 98 01/12/17 20:00 98.2 82 18 123/72 97 01/12/17 16:00 98.9 82 18 111/71 97 01/12/17 12:00 99.3 88 16 127/73 98 I/O 01/12/17 01/12/17 01/12/17 01/13/17 01/13/17 01/13/17 06:59 14:59 22:59 06:59 14:59 22:59 Intake Total 720 ml 2016 ml 380 ml 1189 ml Output Total 1250 ml 1175 ml Balance -530 ml 841 ml 380 ml 1189 ml Intake Oral 720 ml 1200 ml 380 ml 380 ml IV Total 816 ml 809 ml Output Urine Total 1250 ml 1175 ml # Voids 3 3 1 Result Diagram: 01/13/17 0500 01/11/17 0620 Imaging Last Impressions Chest X-Ray 01/10/17 1148 Signed Impressions: Service Date/Time: Tuesday, January 10, 2017 11:59 - CONCLUSION: No acute disease. Derik Gates MD Other Results Laboratory Tests Test 01/13/17 05:00 White Blood Count 17.6 Red Blood Count 2.34 Hemoglobin 6.9 Hematocrit 20.1 Mean Corpuscular Volume 85.7 Mean Corpuscular Hemoglobin 29.4 Mean Corpuscular Hemoglobin 34.3 Concent Red Cell Distribution Width 16.9 Platelet Count 500 Mean Platelet Volume 8.2 Physical Exam Physical Exam GENERAL: This is a well-nourished, well-developed patient, lying on bed without any apparent distress SKIN: No rashes, ecchymoses or lesions. Cool and dry. HEAD: Atraumatic. Normocephalic. No temporal or scalp tenderness. EYES: Pupils equal round and reactive. Extraocular motions intact. No scleral icterus. No injection or drainage. ENT: Airway patent. NECK: Trachea midline. Supple, nontender, no meningeal signs. CARDIOVASCULAR: Regular rate and rhythm without murmurs, gallops, or rubs. RESPIRATORY: Clear to auscultation. Breath sounds equal bilaterally. No wheezes , rales, or rhonchi. GASTROINTESTINAL: Abdomen soft, non-tender, nondistended. No hepato-splenomegaly , or palpable masses. No guarding. MUSCULOSKELETAL: Extremities without clubbing, cyanosis, or edema. No joint tenderness, effusion, or edema noted. No calf tenderness. Negative Homans sign bilaterally. NEUROLOGICAL: Grossly normal. A/P Assessment and Plan (1) Sickle cell crisis (2) Anemia (3) Cardiomyopathy (4) Non compliance with medical treatment Plan 26-year-old female with complaint of back, leg and arm pain. History of sickle cell, multiple admissions and noncompliance. Recent admission for bacteremia, denies fever, chills, no evidence of infection. Sickle cell crisis pain, hx of noncompliance. -IV fluids, normal saline -Continue with hydroxyurea, folic acid -Appreciate consultation by hematology for evaluation -On analgesics transition to oral narcotics. Hemolytic anemia, hemoglobin stable and asymptomatic patient appears at baseline no need to transfuse as discussed before with hematology Cardiomyopathy, stable -Monitor closely, avoid fluid overload. Patient is on Exjade noncompliant with it. Discussed with her about plans to medication Home medications reviewed, initiated as indicated. SCDs for DVT prophylaxis Non compliance continues to be a problem, she is likely to return to hospital due to above problems. Patient has been counseled Discussed with fountain attendant yesterday. As discussed Plan for hopefully discharge on Lortabs, no blood transfused Plan of care discussed with RN. DC her home today to be followed by her primary care doctor and new fountain attendant as an outpatient Discussed with RN. Discussed with patient. As usual patient was seen and examined with female RN at bedside Jackie Landis MD January 13, 2017 10:11
[2017-01-13] MEDS ORDERED: HYDR-3535 PO (10:13)
--- NOTE | 2017-01-13 10:16 | HHI.DS ---
Discharge Summary Admission Date January 10, 2017 at 15:29 Admitting Diagnosis sickle cell crisis (1) Sickle cell crisis Diagnosis: Principal (2) Anemia Diagnosis: Principal (3) Cardiomyopathy Diagnosis: Principal (4) Non compliance with medical treatment Diagnosis: Principal Brief History This is a 26 year old female with hx of sickle cell with multiple admissions, non compliance, anemia, recent admission for bacteremia with Enterococcus Faecalis, non ischemic cardiomyopathy. Patient presented to the emergency room complaining of arm, legs, back pain for the last 3 days. States that she has not used Lortab since she was last admitted in November, has been using Tylenol, Advil or Aleve without any relief. Patient was admitted put on a hydration. Also on IV analgesics. Patient was seen by toys and games hand finisher. Case discussed with toys and games hand finisher. Plan for no transfusion. Hemoglobin was monitored and it is stable. Now pain is better. On by mouth analgesics. So plan to discharge her home to be followed by her primary care doctor and toys and games hand finisher oncologist as outpatient. Patient understood. CBC/BMP: 01/13/17 0500 01/11/17 0620 Significant Findings Laboratory Tests Test 01/10/17 01/10/17 01/11/17 01/13/17 11:45 12:00 06:20 05:00 White Blood Count 11.1 TH/MM3 14.6 TH/MM3 17.6 TH/MM3 (4.0-11.0) (4.0-11.0) (4.0-11.0) Red Blood Count 2.44 MIL/MM3 2.27 MIL/MM3 2.34 MIL/MM3 (4.00-5.30) (4.00-5.30) (4.00-5.30) Hemoglobin 7.2 GM/DL 6.8 GM/DL 6.9 GM/DL (11.6-15.3) (11.6-15.3) (11.6-15.3) Hematocrit 20.6 % 19.2 % 20.1 % (35.0-46.0) (35.0-46.0) (35.0-46.0) Platelet Count 594 TH/MM3 514 TH/MM3 500 TH/MM3 (150-450) (150-450) (150-450) Monocytes (%) (Auto) 13.6 % (0.0-8.0) Basophils (%) (Auto) 4.9 % (0.0-2.0) Monocytes # (Auto) 1.5 TH/MM3 (0-0.9) Basophils # (Auto) 0.5 TH/MM3 (0-0.2) Platelet Estimate HIGH (NORMAL) Sickle Cells 1+ (NORMAL) Acanthocytes OCC (NORMAL) Reticulocyte Count 5.5 % (0.4-3.0) Chloride Level 110 MEQ/L 109 MEQ/L (98-107) (98-107) Blood Urea Nitrogen 6 MG/DL (7-18) 5 MG/DL (7-18) Urine Turbidity HAZY (CLEAR) Urine Occult Blood SMALL (NEG) Urine Leukocyte Esterase TRACE (NEG) Urine Bacteria FEW /hpf (NONE) Urine Mucus FEW /lpf (OCC) Random Glucose 123 MG/DL (74-106) Calcium Level 7.5 MG/DL (8.5-10.1) Total Bilirubin 1.9 MG/DL (0.2-1.0) Aspartate Amino Transf 40 U/L (15-37) (AST/SGOT) Albumin 3.2 GM/DL (3.4-5.0) Pt Condition on Discharge: Good Discharge Disposition: Discharge Home Discharge Instructions DIET: Follow Instructions for: Heart Healthy Diet Activities you can perform: Weight Bearing as Jefry Follow up Referrals: Oncology - 1 Week PCP Follow-up - 1 Week Continued Medications: Albuterol 6.7 GM Inh (Proventil Hfa 6.7 GM Inh) 90 Mcg/Act Aer 2 PUFF INH Q6H PRN SHORTNESS OF BREATH #1 Ref 0 INHALER Diphenhydramine (Benadryl Allergy) 25 Mg Tab 25 MG PO DAILY PRN ALLERGIES Ref 0 TAB Folic Acid (Folate) 1 Mg Tab 5 MG PO DAILY anemia #30 TAB Hydrocodone-Acetaminophen (Lortab) 10-325 Mg Tab 1 TAB PO Q6H PRN PAIN #60 Ref 0 TAB (This prescription has been renewed) Hydroxyurea (Hydrea) 500 Mg Cap 500 MG PO DAILY sickle cell Days 30 Ref 0 CAP Lisinopril (Lisinopril) 5 Mg Tab 2.5 MG PO DAILY cardiomyopathy #30 TAB Metoprolol Succinate ER 24 HR (Metoprolol Succinate ER 24 HR) 25 Mg Tab 12.5 MG PO DAILY cardiomyopathy #30 TAB Zolpidem (Ambien) 5 Mg Tab 5 MG PO HS INSOMNIA Ref 0 TAB Panja,Jawed A. MD January 13, 2017 10:16
[2017-01-13] MEDS: LISINOPRIL 5 MG TAB PO SCH (11:02)
[2017-01-13] MEDS: METOPROLOL SUCCINATE 25 MG EXTENDED RELEASE TAB PO SCH (11:02)
[2017-01-13] MEDS: FOLIC ACID 1 MG TAB PO SCH (11:02)
[2017-01-13] MEDS: SODIUM CHLORIDE 0.9% FLUSH 10 ML FLUSH IV FLUSH SCH (11:05)
[2017-01-13] MEDS: HYDROXYUREA 500 MG CAP PO SCH (11:14)
[2017-01-13 12:00] VITALS: BP 123/71; PULSE 83; RESP 18; TEMP 98.9; O2SAT 99
== END 2017-01-13 13:33 | disposition home or self-care (01) | DRG 812 ==
LOC: NEPE 11:05 → NEDA 15:29 → OBSVTOIN 15:29 → HOCA 18:18
PROVIDERS: ADMIT Specialist; ATTEND Specialist
DX: D57.00 Hb-SS disease with crisis, unspecified (principal); I42.9 Cardiomyopathy, unspecified; I50.9 Heart failure, unspecified; J45.909 Unspecified asthma, uncomplicated; F41.9 Anxiety disorder, unspecified; Z86.14 Personal history of Methicillin resistant Staphylococcus aureus infection; Z88.5 Allergy status to narcotic agent; Z91.19 Patient's noncompliance with other medical treatment and regimen
CPT/HCPCS: 71010; 80048; 80053; 81001; 84703; 85025; 85027; 85044; 86850; 86900; 86901; 86920; 86922; 96361; 96374; 96375; 96376; J1170; J1200; J2405; J7030

== ENCOUNTER 2017-02-01 04:39 | Emergency (ER) | payer MEDICAID ==
[~2017-02-01] VITALS: Ht 165.1 cm; Wt 70.0 kg
[2017-02-01 04:40] VITALS: BP 140/90; PULSE 127; RESP 16; TEMP 99.1; O2SAT 96
[2017-02-01] MEDS ORDERED: SODIUM CHLOR 0.9% 1000 ML INJ 1,000 ML IV ONE (05:41)
[2017-02-01] MEDS ORDERED: HYDROmorphone HCL PF 1 MG/ML VIAL IVS ONE (05:45)
[2017-02-01] MEDS ORDERED: diphenhydrAMINE HCL 50 MG/ML VIAL IV ONE (05:45)
[2017-02-01] MEDS ORDERED: SODIUM CHLORIDE 0.9% FLUSH 10 ML FLUSH IVF PRN (05:45)
[2017-02-01] MEDS ORDERED: KETOROLAC TROMETHAMINE 30 MG/ML (IVP) VIAL IVP ONE (05:45)
--- NOTE | 2017-02-01 06:17 | PD ---
HPI . Sickle cell crisis Chief Complaint: Sickle Cell Time Seen by Provider: 05:33 Travel History International Travel<30 days: No Contact w/Intl Traveler<30days: No Traveled to known affect area: No History of Present Illness HPI Patient presents complaining with sickle cell crisis. Onset of symptoms was 2 days ago. Her Breathing some relief. She reports that her sickle cell disease is exacerbated by her menstrual cycle and by rainy weather. She is currently on her menstrual cycle and it has been raining. Her pain is constant and is rated as 10/10. She denies chest pain or shortness of breath. She denies fever. She denies any urinary tract symptoms. She denies any vomiting or diarrhea. PFSH Past Medical History Anemia: Yes Arthritis: No Asthma: Yes Autoimmune Disease: No Blood Disorders: Yes Anxiety: Yes Depression: No Heart Rhythm Problems: No Cancer: No Cardiovascular Problems: Yes (CHF) High Cholesterol: No Chemotherapy: No Chest Pain: Yes Congestive Heart Failure: Yes COPD: No Cerebrovascular Accident: No Diabetes: No Diminished Hearing: No Endocrine: No Gastrointestinal Disorders: No GERD: No Genitourinary: No Headaches: Yes Hiatal Hernia: No Heparin Induced Thrombocytopen: No Hypertension: No Immune Disorder: No Implanted Vascular Access Dvce: Yes Kidney Stones: No Musculoskeletal: No Neurologic: Yes Psychiatric: Yes Reproductive: No Respiratory: Yes Immunizations Current: Yes Migraines: Yes Pneumonia: Yes Radiation Therapy: No Renal Failure: No Seizures: No Sickle Cell Disease: Yes Sleep Apnea: No Thyroid Disease: No Ulcer: No PNEUMOCCOCAL Vaccine (Year): 1 ?: Not : 1 Para: 1 Miscarriage: 0 : 0 Tubal Ligation: Yes Past Surgical History Abdominal Surgery: No AICD: No Arteriovenous Shunt: No Body Medical Devices: INFUSAPORT (3RD) Cardiac Surgery: No Section: Yes (X 1) Cholecystectomy: Yes Ear Surgery: No Endocrine Surgery: No Eye Surgery: No Genitourinary Surgery: No Gynecologic Surgery: Yes (c section) Hysterectomy: No Insulin Pump: No Joint Replacement: No Neurologic Surgery: No Oral Surgery: No Pacemaker: No Thoracic Surgery: No Other Surgery: Yes (PORTX3 PLACED AND REMOVED, gallstones) Social History Alcohol Use: Yes (rare) Tobacco Use: No Substance Use: No Allergies-Medications (Allergen,Severity, Reaction): Coded Allergies: Percocet (Verified Adverse Reaction, Severe, Nausea/Vomiting, 01/10/17) AND ITCHING *MDRO Multi-Drug Resistant Organism (Verified Adverse Reaction, Unknown, Cleared 02/08/15, 12/19/16) MRSA (Chest Wound) - 02/2012 MRSA PCR Screen negative 02/06/15 and 02/08/15. Cleared per Infection Control Reported Meds & Prescriptions Reported Meds & Active Scripts Active Lortab (Hydrocodone-Acetaminophen) 10-325 Mg Tab 1 Tab PO Q6H PRN Hydrea (Hydroxyurea) 500 Mg Cap 500 Mg PO DAILY 30 Days Metoprolol Succinate ER 24 HR (Metoprolol Succinate) 25 Mg Tab 12.5 Mg PO DAILY Lisinopril 5 Mg Tab 2.5 Mg PO DAILY Reported Ambien (Zolpidem Tartrate) 5 Mg Tab 5 Mg PO HS Proventil Hfa 6.7 GM Inh (Albuterol Sulfate) 90 Mcg/Act Aer 2 Puff INH Q6H PRN Review of Systems General / Constitutional: No: Fever, Chills Cardiovascular: No: Chest Pain or Discomfort Respiratory: No: Shortness of Breath Gastrointestinal: No: Nausea, Vomiting, Diarrhea Genitourinary: No: Urgency, Frequency, Dysuria Musculoskeletal: Positive: Myalgias Physical Exam Narrative GENERAL: Awake and alert and in no acute distress. SKIN: Warm and dry. HEAD: Atraumatic. Normocephalic. EYES: Pupils equal and round. Sclera are anicteric. ENT: No nasal bleeding or discharge. Mucous membranes pink and moist. NECK: Trachea midline. Neck is supple. CARDIOVASCULAR: Sinus tachycardia. Heart sounds are normal. RESPIRATORY: No accessory muscle use. Lungs are clear with full air movement throughout. GASTROINTESTINAL: Abdomen soft, non-tender, nondistended. MUSCULOSKELETAL: No obvious deformities. No edema. NEUROLOGICAL: Awake and alert. No obvious cranial nerve deficits. Motor grossly within normal limits. Normal speech. PSYCHIATRIC: Appropriate mood and affect; insight and judgment normal. Data Data Last Documented VS Vital Signs Date Time Temp Pulse Resp B/P Pulse Ox O2 Delivery O2 Flow Rate FiO2 02/01/17 07:01 92 18 113/64 96 Room Air 02/01/17 04:40 99.1 Orders Basic Metabolic Panel (Bmp) (02/01/17 05:41) Complete Blood Count With Diff (02/01/17 05:41) Retic Count (02/01/17 05:41) Urinalysis - C+S If Indicated (02/01/17 05:41) Iv Access Insert/Monitor (02/01/17 05:41) Ketorolac Inj (Toradol Inj) (02/01/17 05:45) Sodium Chloride 0.9% Flush (Ns Flush) (02/01/17 05:45) Sodium Chlor 0.9% 1000 Ml Inj (Ns 1000 M (02/01/17 05:41) Hydromorphone Pf Inj (Dilaudid Pf Inj) (02/01/17 05:45) Diphenhydramine Inj (Benadryl Inj) (02/01/17 05:45) Ed Urine Pregnancytest Poc (02/01/17 05:41) Hydromorphone Pf Inj (Dilaudid Pf Inj) (02/01/17 07:00) Labs Laboratory Tests Test 02/01/17 06:00 White Blood Count 16.5 TH/MM3 Red Blood Count 2.44 MIL/MM3 Hemoglobin 7.1 GM/DL Hematocrit 20.3 % Mean Corpuscular Volume 83.1 FL Mean Corpuscular Hemoglobin 29.0 PG Mean Corpuscular Hemoglobin 34.9 % Concent Red Cell Distribution Width 16.1 % Platelet Count 461 TH/MM3 Mean Platelet Volume 8.4 FL Neutrophils (%) (Auto) 73.2 % Lymphocytes (%) (Auto) 14.6 % Monocytes (%) (Auto) 10.0 % Eosinophils (%) (Auto) 1.9 % Basophils (%) (Auto) 0.3 % Neutrophils # (Auto) 12.1 TH/MM3 Lymphocytes # (Auto) 2.4 TH/MM3 Monocytes # (Auto) 1.7 TH/MM3 Eosinophils # (Auto) 0.3 TH/MM3 Basophils # (Auto) 0.1 TH/MM3 CBC Comment AUTO DIFF Reticulocyte Count 5.2 % Absolute Reticulocyte Count 127.6 MIL/L Sodium Level 141 MEQ/L Potassium Level 3.8 MEQ/L Chloride Level 107 MEQ/L Carbon Dioxide Level 22.7 MEQ/L Anion Gap 11 MEQ/L Blood Urea Nitrogen 6 MG/DL Creatinine 0.67 MG/DL Estimat Glomerular Filtration 128 ML/MIN Rate Random Glucose 94 MG/DL Calcium Level 8.1 MG/DL MDM Medical Decision Making Medical Screen Exam Complete: Yes Emergency Medical Condition: Yes Medical Record Reviewed: Yes (this patient is generally seen here about once a month. Her baseline hemoglobin is somewhere between 6-1/2 and 7-1/2.) Differential Diagnosis My differential diagnosis of sickle cell disease includes but is not limited to vaso-occlusive crisis, acute chest syndrome, occult infection, electrolyte disturbance, drug-seeking behavior. Narrative Course Patient presents complaining with sickle cell crisis. CBC & BMP Diagram 02/01/17 06:00 Her H&H is at baseline. Diagnosis Primary Impression: Acute sickle cell crisis Patient Instructions: General Instructions, Sickle Cell Anemia (DC) Disposition: DISCHARGE HOME Condition: Stable Audrey Echols MD Feb 01, 2017 06:17
[2017-02-01 06:29] LABS: AUTOMATED NEUTROPHIL # 12.1 TH/MM3 (1.8-7.7); BASOPHIL # 0.1 TH/MM3 (0-0.2); BASOPHIL % 0.3 % (0.0-2.0); EOSINOPHIL # 0.3 TH/MM3 (0-0.4); EOSINOPHIL % 1.9 % (0.0-4.0); LYMPH % 14.6 % (9.0-44.0); LYMPHOCYTE # 2.4 TH/MM3 (1.0-4.8); MEAN CELL VOLUME 83.1 FL (80.0-100.0); MEAN CORPUSCULAR HGB CONC 34.9 % (32.0-36.0); NEUT % 73.2 % (16.0-70.0); PLATELET COUNT 461 TH/MM3 (150-450); RED BLOOD COUNT 2.44 MIL/MM3 (4.00-5.30); RED CELL DISTRIBUTION WIDTH 16.1 % (11.6-17.2); RETIC % 5.2 % (0.4-3.0); WHITE BLOOD COUNT 16.5 TH/MM3 (4.0-11.0)
[2017-02-01 06:32] LABS: HEMO FLAGS AUTO DIFF
[2017-02-01 06:33] LABS: REVIEW FLAG AUTO DIFF
[2017-02-01 06:34] LABS: HEMATOCRIT 20.3 % (35.0-46.0)
[2017-02-01 06:48] LABS: BLOOD, URINE TRACE (NEG); GLUCOSE,URINE NEG (NEG); KETONE, URINE NEG (NEG); NITRITE,URINE NEG (NEG); URINE COLOR YELLOW (YELLW/STRAW)
[2017-02-01 06:56] LABS: BICARBONATE 22.7 MEQ/L (21.0-32.0); POTASSIUM 3.8 MEQ/L (3.5-5.1)
[2017-02-01] MEDS ORDERED: HYDROmorphone HCL PF 1 MG/ML VIAL IV PUSH ONE (07:00)
[2017-02-01 07:01] VITALS: BP 113/64; PULSE 92; RESP 18; O2SAT 96
[2017-02-01 07:10] LABS: ACANTHOCYTES OCC (NORMAL); TARGET CELLS 1+ (NORMAL)
[2017-02-01 07:12] LABS: SCAN/DIFF AUTO DIFF CONFIRMED; SICKLE CELLS 1+ (NORMAL)
[2017-02-01 07:23] LABS: BACTERIA, URINE RARE /hpf; COMMENT (UR) CULT NOT INDICATED; COMMENT2 (UR) CULT NOT INDICATED; CULTURE IF INDICATED CULT NOT INDICATED; SQUAMOUS EPITHELIAL CELL URINE > 8 /hpf (0-5)
[2017-02-01 07:53] VITALS: BP 114/69
== END 2017-02-01 07:57 | disposition home or self-care (01) ==
LOC: NEPC 04:39
DX: D57.00 Hb-SS disease with crisis, unspecified (principal); J45.909 Unspecified asthma, uncomplicated
CPT/HCPCS: 80048; 81001; 84703; 85025; 85044; 96374; 96375; 96376; 99284; J1170; J1200; J1885; J7030

== ENCOUNTER 2017-02-04 14:37 | Inpatient (IN) | payer MEDICAID ==
[~2017-02-04] VITALS: Ht 165.1 cm; Wt 68.2 kg
[~2017-02-04 14:37] MED LIST changes: -BENA25TA3 PO; -FOLI1TAB4 PO
[2017-02-04 14:39] VITALS: BP 134/70; PULSE 93; RESP 20; TEMP 99.4; O2SAT 95
--- NOTE | 2017-02-04 15:12 | PD ---
Physical Exam Time Seen by Provider: 15:09 Narrative 89yo F c/o sickle cell pain all over that started 2-3 days ago. Was here 3 days ago and says pain is worse now because shes on her menses. Patient seen in triage. VS reviewed. Awaiting bed placement. Data Data Last Documented VS Vital Signs Date Time Temp Pulse Resp B/P Pulse Ox O2 Delivery O2 Flow Rate FiO2 02/04/17 14:39 99.4 93 20 134/70 95 Room Air MDM Supervised Visit with DAISY: Joanne Flores Feb 04, 2017 15:12
[2017-02-04] MEDS ORDERED: SODIUM CHLOR 0.9% 1000 ML INJ 1,000 ML IV ONE (16:19)
--- NOTE | 2017-02-04 16:24 | PD ---
HPI . Sickle cell crisis Chief Complaint: Sickle Cell Time Seen by Provider: 16:19 Travel History International Travel<30 days: No Contact w/Intl Traveler<30days: No Traveled to known affect area: No History of Present Illness HPI This patient presents with a chief complaint of sickle cell crisis. She was seen here on 02/01 for same. She states that her symptoms have persisted and have worsened since that time. She currently rates her pain as 9/10. She states that her symptoms always get worse with her menstrual cycle, which she is on currently. She also states her symptoms always get worse with [place] whether. It has been very rainy here the past several days. She denies any fever. She states that her pain is her usual sickle cell pain. She states that she has been compliant with her hydroxyurea and folic acid. PFSH Past Medical History Anemia: Yes Arthritis: No Asthma: Yes Autoimmune Disease: No Blood Disorders: Yes Anxiety: Yes Depression: No Heart Rhythm Problems: No Cancer: No Cardiovascular Problems: Yes (CHF) High Cholesterol: No Chemotherapy: No Chest Pain: Yes Congestive Heart Failure: Yes COPD: No Cerebrovascular Accident: No Diabetes: No Diminished Hearing: No Endocrine: No Gastrointestinal Disorders: No GERD: No Genitourinary: No Headaches: Yes Hiatal Hernia: No Heparin Induced Thrombocytopen: No Hypertension: No Immune Disorder: No Implanted Vascular Access Dvce: Yes Kidney Stones: No Musculoskeletal: No Neurologic: Yes Psychiatric: Yes Reproductive: No Respiratory: Yes (ASTHMA) Immunizations Current: Yes Migraines: Yes Pneumonia: Yes Radiation Therapy: No Renal Failure: No Seizures: No Sickle Cell Disease: Yes Sleep Apnea: No Thyroid Disease: No Ulcer: No PNEUMOCCOCAL Vaccine (Year): 1 ?: Not LMP: 02/04/17 : 1 Para: 1 Miscarriage: 0 : 0 Tubal Ligation: Yes Past Surgical History Abdominal Surgery: No AICD: No Arteriovenous Shunt: No Body Medical Devices: INFUSAPORT (3RD) Cardiac Surgery: No Section: Yes (X 1) Cholecystectomy: Yes Ear Surgery: No Endocrine Surgery: No Eye Surgery: No Genitourinary Surgery: No Gynecologic Surgery: Yes (c section) Hysterectomy: No Insulin Pump: No Joint Replacement: No Neurologic Surgery: No Oral Surgery: No Pacemaker: No Thoracic Surgery: No Other Surgery: Yes (PORTX3 PLACED AND REMOVED, gallstones) Social History Alcohol Use: Yes (rare) Tobacco Use: No Substance Use: No Allergies-Medications (Allergen,Severity, Reaction): Coded Allergies: Percocet (Verified Adverse Reaction, Severe, Nausea/Vomiting, 01/10/17) AND ITCHING *MDRO Multi-Drug Resistant Organism (Verified Adverse Reaction, Unknown, Cleared 02/08/15, 12/19/16) MRSA (Chest Wound) - 02/2012 MRSA PCR Screen negative 02/06/15 and 02/08/15. Cleared per Infection Control Reported Meds & Prescriptions Reported Meds & Active Scripts Active Lortab (Hydrocodone-Acetaminophen) 10-325 Mg Tab 1 Tab PO Q6H PRN Hydrea (Hydroxyurea) 500 Mg Cap 500 Mg PO DAILY 30 Days Metoprolol Succinate ER 24 HR (Metoprolol Succinate) 25 Mg Tab 12.5 Mg PO DAILY Lisinopril 5 Mg Tab 2.5 Mg PO DAILY Reported Ambien (Zolpidem Tartrate) 5 Mg Tab 5 Mg PO HS Proventil Hfa 6.7 GM Inh (Albuterol Sulfate) 90 Mcg/Act Aer 2 Puff INH Q6H PRN Review of Systems Except as stated in HPI: all other systems reviewed are Neg General / Constitutional: No: Fever, Chills Eyes: Positive: Other (icterus) Respiratory: Positive: Cough Musculoskeletal: Positive: Myalgias, Arthralgias Physical Exam Narrative GENERAL: Patient is awake and alert. SKIN: Warm and dry. HEAD: Atraumatic. Normocephalic. EYES: Pupils equal and round. Scleral icterus. ENT: No nasal bleeding or discharge. Mucous membranes pink and moist. NECK: Trachea midline. Neck is supple. CARDIOVASCULAR: Regular rate and rhythm. She is not tachycardic. RESPIRATORY: No accessory muscle use. Lungs are clear with good air movement throughout. GASTROINTESTINAL: Abdomen soft, non-tender, nondistended. MUSCULOSKELETAL: No obvious deformities. No edema. NEUROLOGICAL: Awake and alert. No obvious cranial nerve deficits. Motor grossly within normal limits. Normal speech. PSYCHIATRIC: Appropriate mood and affect; insight and judgment normal. Data Data Last Documented VS Vital Signs Date Time Temp Pulse Resp B/P Pulse Ox O2 Delivery O2 Flow Rate FiO2 02/04/17 14:39 99.4 93 20 134/70 95 Room Air Orders Complete Blood Count With Diff (02/04/17 16:19) Retic Count (02/04/17 16:19) Iv Access Insert/Monitor (02/04/17 16:19) Ketorolac Inj (Toradol Inj) (02/04/17 16:30) Sodium Chloride 0.9% Flush (Ns Flush) (02/04/17 16:30) Sodium Chlor 0.9% 1000 Ml Inj (Ns 1000 M (02/04/17 16:19) Ldh Serum (02/04/17 16:19) Comprehensive Metabolic Panel (02/04/17 16:25) MDM Medical Decision Making Medical Screen Exam Complete: Yes Emergency Medical Condition: Yes Medical Record Reviewed: Yes (patient was seen here on 02/01. Hemoglobin was 7.1. Reticulocyte count was 5.2. She was treated with IV fluids and IV analgesics.) Differential Diagnosis My differential diagnosis of sickle cell disease includes but is not limited to vaso-occlusive crisis, acute chest syndrome, occult infection, electrolyte disturbance, drug-seeking behavior. Narrative Course Patient presents for treatment of sickle cell crisis. I have ordered IV fluids and IV Toradol pending her workup. I have ordered a CBC, reticulocyte count, LDH and comprehensive metabolic panel. Kaitlynn Tellez PA-C will follow-up with her and make an appropriate disposition. Diagnosis Primary Impression: Sickle cell crisis Condition: Stable Audrey Echols MD Feb 04, 2017 16:24
[2017-02-04] MEDS ORDERED: SODIUM CHLORIDE 0.9% FLUSH 10 ML FLUSH IVF PRN (16:30)
[2017-02-04] MEDS ORDERED: KETOROLAC TROMETHAMINE 30 MG/ML (IVP) VIAL IVP ONE (16:30)
[2017-02-04 17:14] LABS: AUTOMATED NEUTROPHIL # 12.3 TH/MM3 (1.8-7.7); BASOPHIL # 0.1 TH/MM3 (0-0.2); BASOPHIL % 0.7 % (0.0-2.0); EOSINOPHIL # 0.4 TH/MM3 (0-0.4); EOSINOPHIL % 2.1 % (0.0-4.0); LYMPH % 17.8 % (9.0-44.0); LYMPHOCYTE # 3.2 TH/MM3 (1.0-4.8); MEAN CELL VOLUME 83.1 FL (80.0-100.0); MEAN CORPUSCULAR HEMOGLOBIN 28.9 PG (27.0-34.0); MEAN CORPUSCULAR HGB CONC 34.8 % (32.0-36.0); MONO % 10.1 % (0.0-8.0); NEUT % 69.3 % (16.0-70.0); PLATELET COUNT 505 TH/MM3 (150-450); RED CELL DISTRIBUTION WIDTH 17.8 % (11.6-17.2); RETIC % 10.8 % (0.4-3.0); WHITE BLOOD COUNT 17.8 TH/MM3 (4.0-11.0)
[2017-02-04 17:16] LABS: HEMO FLAGS AUTO DIFF; REVIEW FLAG AUTO DIFF
[2017-02-04 17:21] LABS: HEMATOCRIT 19.1 % (35.0-46.0)
--- NOTE | 2017-02-04 17:22 | PD ---
Physical Exam Date Seen by Provider: Feb 04, 2017 Time Seen by Provider: 17:21 Narrative I was asked to resume care of this patient by Dr. Echols. Please refer to her note for detailed HPI. Data Data Last Documented VS Vital Signs Date Time Temp Pulse Resp B/P Pulse Ox O2 Delivery O2 Flow Rate FiO2 02/04/17 18:23 20 02/04/17 17:31 Room Air 02/04/17 14:39 99.4 93 134/70 95 Orders Complete Blood Count With Diff (02/04/17 16:19) Retic Count (02/04/17 16:19) Iv Access Insert/Monitor (02/04/17 16:19) Ketorolac Inj (Toradol Inj) (02/04/17 16:30) Sodium Chloride 0.9% Flush (Ns Flush) (02/04/17 16:30) Sodium Chlor 0.9% 1000 Ml Inj (Ns 1000 M (02/04/17 16:19) Ldh Serum (02/04/17 16:19) Comprehensive Metabolic Panel (02/04/17 16:25) Hydromorphone Pf Inj (Dilaudid Pf Inj) (02/04/17 17:30) Diphenhydramine (Benadryl) (02/04/17 17:30) Type And Screen (02/04/17 17:53) Red Blood Cells (Rbc) (02/04/17 17:53) Blood Product Administration .UPON TRANSFUSION (02/04/17 17:53) Sodium Chlor 0.9% 250 Ml Inj (Ns 250 Ml (02/04/17 18:00) Red Blood Cells (Rbc) (02/04/17 18:31) Admit Order (Ed Use Only) (02/04/17 18:31) Labs Laboratory Tests Test 02/04/17 16:50 White Blood Count 17.8 TH/MM3 Red Blood Count 2.30 MIL/MM3 Hemoglobin 6.7 GM/DL Hematocrit 19.1 % Mean Corpuscular Volume 83.1 FL Mean Corpuscular Hemoglobin 28.9 PG Mean Corpuscular Hemoglobin 34.8 % Concent Red Cell Distribution Width 17.8 % Platelet Count 505 TH/MM3 Mean Platelet Volume 8.2 FL Neutrophils (%) (Auto) 69.3 % Lymphocytes (%) (Auto) 17.8 % Monocytes (%) (Auto) 10.1 % Eosinophils (%) (Auto) 2.1 % Basophils (%) (Auto) 0.7 % Neutrophils # (Auto) 12.3 TH/MM3 Lymphocytes # (Auto) 3.2 TH/MM3 Monocytes # (Auto) 1.8 TH/MM3 Eosinophils # (Auto) 0.4 TH/MM3 Basophils # (Auto) 0.1 TH/MM3 CBC Comment AUTO DIFF Differential Total Cells 100 Counted Neutrophils % (Manual) 69 % Band Neutrophils % 1 % Lymphocytes % 21 % Monocytes % 7 % Basophils % 1 % Neutrophils # (Manual) 12.6 TH/MM3 Myelocytes 1 % Nucleated Red Blood Cells 3 /100 WBC Differential Comment FINAL DIFF MANUAL Platelet Estimate HIGH Platelet Morphology Comment NORMAL Sickle Cells 2+ Target Cells 2+ Reticulocyte Count 10.8 % Absolute Reticulocyte Count 249.7 MIL/L Sodium Level 142 MEQ/L Potassium Level 3.6 MEQ/L Chloride Level 107 MEQ/L Carbon Dioxide Level 25.5 MEQ/L Anion Gap 10 MEQ/L Blood Urea Nitrogen 5 MG/DL Creatinine 0.59 MG/DL Estimat Glomerular Filtration 148 ML/MIN Rate Random Glucose 88 MG/DL Calcium Level 8.8 MG/DL Total Bilirubin 1.9 MG/DL Aspartate Amino Transf 41 U/L (AST/SGOT) Alanine Aminotransferase 17 U/L (ALT/SGPT) Alkaline Phosphatase 72 U/L Lactate Dehydrogenase 414 U/L Total Protein 7.9 GM/DL Albumin 4.1 GM/DL [facility] Medical Record Reviewed: Yes Supervised Visit with DAISY: No Differential Diagnosis Sickle cell crisis, hemolytic anemia, acute blood loss Narrative Course This is a 26-year-old female here with complaints of worsening pain. She states she's having acute sickle cell crisis. She reports this happens quite frequently during her menstrual cycle and when the weather is changing and rainy. Patient's hemoglobin is now 6.7. She also has approximately doubled her reticulocyte count from several days ago. Her total bilirubin and LDH are both elevated. She will require inpatient admission for further treatment. 1727: She requests something stronger for pain: I have given her some dilaudid and benadryl per her requests. Laboratory Tests Test 02/04/17 16:50 White Blood Count 17.8 TH/MM3 Red Blood Count 2.30 MIL/MM3 Hemoglobin 6.7 GM/DL Hematocrit 19.1 % Mean Corpuscular Volume 83.1 FL Mean Corpuscular Hemoglobin 28.9 PG Mean Corpuscular Hemoglobin 34.8 % Concent Red Cell Distribution Width 17.8 % Platelet Count 505 TH/MM3 Mean Platelet Volume 8.2 FL Neutrophils (%) (Auto) 69.3 % Lymphocytes (%) (Auto) 17.8 % Monocytes (%) (Auto) 10.1 % Eosinophils (%) (Auto) 2.1 % Basophils (%) (Auto) 0.7 % Neutrophils # (Auto) 12.3 TH/MM3 Lymphocytes # (Auto) 3.2 TH/MM3 Monocytes # (Auto) 1.8 TH/MM3 Eosinophils # (Auto) 0.4 TH/MM3 Basophils # (Auto) 0.1 TH/MM3 CBC Comment AUTO DIFF Reticulocyte Count 10.8 % Absolute Reticulocyte Count 249.7 MIL/L Sodium Level 142 MEQ/L Potassium Level 3.6 MEQ/L Chloride Level 107 MEQ/L Carbon Dioxide Level 25.5 MEQ/L Anion Gap 10 MEQ/L Blood Urea Nitrogen 5 MG/DL Creatinine 0.59 MG/DL Estimat Glomerular Filtration 148 ML/MIN Rate Random Glucose 88 MG/DL Calcium Level 8.8 MG/DL Total Bilirubin 1.9 MG/DL Aspartate Amino Transf 41 U/L (AST/SGOT) Alanine Aminotransferase 17 U/L (ALT/SGPT) Alkaline Phosphatase 72 U/L Lactate Dehydrogenase 414 U/L Total Protein 7.9 GM/DL Albumin 4.1 GM/DL Personally discussed with patient that she will be admitted. She was in agreement with treatment plan. 1750 to call placed for inpatient admission 1825: I personally spoke with Dr. Gutierrez, who has accepted the patient for admission. Diagnosis Primary Impression: Sickle cell crisis Admitting Information Admitting Physician Requests: Admit Condition: Stable Kaitlynn Tellez Feb 04, 2017 17:22
[2017-02-04] MEDS ORDERED: HYDROmorphone HCL PF 1 MG/ML VIAL IV PUSH ONE (17:30)
[2017-02-04] MEDS ORDERED: diphenhydrAMINE HCL 50 MG CAP PO ONE (17:30)
[2017-02-04 17:33] LABS: ANION GAP 10 MEQ/L (5-15); AST (GOT) 41 U/L (15-37); BICARBONATE 25.5 MEQ/L (21.0-32.0); BLOOD UREA NITROGEN 5 MG/DL (7-18); CHLORIDE 107 MEQ/L (98-107); GLOMERULAR FILTRATION RATE 148 ML/MIN (>89); POTASSIUM 3.6 MEQ/L (3.5-5.1); SODIUM (NA) 142 MEQ/L (136-145)
[2017-02-04 17:36] LABS: ALKALINE PHOSPHATASE 72 U/L (45-117); ALT (GPT) 17 U/L (10-53); TOTAL BILIRUBIN ADULT 1.9 MG/DL (0.2-1.0)
[2017-02-04 17:54] LABS: BANDS 1 % (0-6); BASOPHILS 1 % (0-2); CORRECTED NUCLEATED RBC 3 /100 WBC (0-0); MYELOCYTES 1 % (0-0); NEUTROPHIL # MANUAL DIFF 12.6 TH/MM3 (1.8-7.7); POLYS (SEG NEUTROPHILS) 69 % (16-70); WBC DIFF SAMPLE 100
[2017-02-04 17:55] LABS: SICKLE CELLS 2+ (NORMAL); TARGET CELLS 2+ (NORMAL)
[2017-02-04 17:56] LABS: PLATELET ESTIMATE SMEAR HIGH (NORMAL); PLATELET MORPHOLOGY NORMAL (NORMAL); SCAN/DIFF FINAL DIFF MANUAL
[2017-02-04] MEDS ORDERED: SODIUM CHLOR 0.9% 250 ML INJ 250 ML IV ONE (18:00)
--- NOTE | 2017-02-04 18:42 | HHI.HP ---
HPI Service [facility] Primary Care Physician No Primary Care Physician Admission Diagnosis Sickle Cell Crisis, Anemia Diagnoses: (1) Sickle cell anemia (2) Sickle cell anemia with crisis (3) Sickle cell disease with crisis Chief Complaint: It Hurts all over Travel History International Travel<30 Days: No Contact w/Intl Traveler <30 Da: No Traveled to Known Affected Are: No History of Present Illness 26-year-old female with a history of sickle cell anemia with crisis with multiple admissions to the ED and recently admitted on 01/10/17 discharged 01/13/17 presented to the ED for evaluation of sickle cell crisis mostly in her arm, legs, back over the past 48 hours rated 10/10 in intensity. Patient states with the change of weather along with for menses she has been hurting. She has a history of noncompliance and a drug-seeking behavior. States, she has not been seen by any PCP since discharge. Currently afebrile. Abnormal labs include H/H 6.7/19.1 and elevated WBC 17 Review of Systems Except as stated in HPI: all other systems reviewed are Neg Past Family Social History Past Medical History sickle cell disease cardiomyopathy Past Surgical History port placement cholecystectomy Reported Medications Lortab (Hydrocodone-Acetaminophen) 10-325 Mg Tab 1 Tab PO Q6H PRN Hydrea (Hydroxyurea) 500 Mg Cap 500 Mg PO DAILY 30 Days Metoprolol Succinate ER 24 HR (Metoprolol Succinate) 25 Mg Tab 12.5 Mg PO DAILY Lisinopril 5 Mg Tab 2.5 Mg PO DAILY Reported Ambien (Zolpidem Tartrate) 5 Mg Tab 5 Mg PO HS Proventil Hfa 6.7 GM Inh (Albuterol Sulfate) 90 Mcg/Act Aer 2 Puff INH Q6H PRN Allergies: Coded Allergies: Percocet (Verified Adverse Reaction, Severe, Nausea/Vomiting, 01/10/17) AND ITCHING *MDRO Multi-Drug Resistant Organism (Verified Adverse Reaction, Unknown, Cleared 02/08/15, 12/19/16) MRSA (Chest Wound) - 02/2012 MRSA PCR Screen negative 02/06/15 and 02/08/15. Cleared per Infection Control Family History Sibling has sickle cell Both sides of the family mother and father have diabetes Social History Reports occasional alcohol use Denies tobacco use Denies illicit drug use Physical Exam Vital Signs Vital Signs Date Time Temp Pulse Resp B/P Pulse Ox O2 Delivery O2 Flow Rate FiO2 02/04/17 18:23 20 02/04/17 17:31 Room Air 02/04/17 17:30 20 02/04/17 14:39 99.4 93 20 134/70 95 Room Air Physical Exam GENERAL: This is a well-nourished, well-developed patient, in no apparent distress. SKIN: No rashes, ecchymoses or lesions. Cool and dry. HEAD: Atraumatic. Normocephalic. No temporal or scalp tenderness. EYES: Pupils equal round and reactive. Extraocular motions intact. No scleral icterus. No injection or drainage. ENT: Nose without bleeding, purulent drainage or septal hematoma. Throat without erythema, tonsillar hypertrophy or exudate. Uvula midline. Airway patent. NECK: Trachea midline. No JVD or lymphadenopathy. Supple, nontender, no meningeal signs. CARDIOVASCULAR: Regular rate and rhythm without murmurs, gallops, or rubs. RESPIRATORY: Clear to auscultation. Breath sounds equal bilaterally. No wheezes , rales, or rhonchi. GASTROINTESTINAL: Abdomen soft, non-tender, nondistended. No hepato-splenomegaly , or palpable masses. No guarding. MUSCULOSKELETAL: Extremities without clubbing, cyanosis, or edema. No joint tenderness, effusion, or edema noted. No calf tenderness. Negative Homans sign bilaterally. NEUROLOGICAL: Awake and alert. Cranial nerves II through XII intact. Motor and sensory grossly within normal limits. Five out of 5 muscle strength in all muscle groups. Normal speech. Laboratory Laboratory Tests Test 02/04/17 16:50 White Blood Count 17.8 Red Blood Count 2.30 Hemoglobin 6.7 Hematocrit 19.1 Mean Corpuscular Volume 83.1 Mean Corpuscular Hemoglobin 28.9 Mean Corpuscular Hemoglobin 34.8 Concent Red Cell Distribution Width 17.8 Platelet Count 505 Mean Platelet Volume 8.2 Neutrophils (%) (Auto) 69.3 Lymphocytes (%) (Auto) 17.8 Monocytes (%) (Auto) 10.1 Eosinophils (%) (Auto) 2.1 Basophils (%) (Auto) 0.7 Neutrophils # (Auto) 12.3 Lymphocytes # (Auto) 3.2 Monocytes # (Auto) 1.8 Eosinophils # (Auto) 0.4 Basophils # (Auto) 0.1 CBC Comment AUTO DIFF Differential Total Cells 100 Counted Neutrophils % (Manual) 69 Band Neutrophils % 1 Lymphocytes % 21 Monocytes % 7 Basophils % 1 Neutrophils # (Manual) 12.6 Myelocytes 1 Nucleated Red Blood Cells 3 Differential Comment FINAL DIFF MANUAL Platelet Estimate HIGH Platelet Morphology Comment NORMAL Sickle Cells 2+ Target Cells 2+ Reticulocyte Count 10.8 Absolute Reticulocyte Count 249.7 Sodium Level 142 Potassium Level 3.6 Chloride Level 107 Carbon Dioxide Level 25.5 Anion Gap 10 Blood Urea Nitrogen 5 Creatinine 0.59 Estimat Glomerular Filtration 148 Rate Random Glucose 88 Calcium Level 8.8 Total Bilirubin 1.9 Aspartate Amino Transf 41 (AST/SGOT) Alanine Aminotransferase 17 (ALT/SGPT) Alkaline Phosphatase 72 Lactate Dehydrogenase 414 Total Protein 7.9 Albumin 4.1 Result Diagram: 02/04/17 1650 02/04/17 165 Assessment and Plan Problem List: (1) Sickle cell disease with crisis ICD Code: D57.00 Status: Acute (2) Sickle cell anemia with crisis ICD Code: D57.00 Status: Acute (3) Non compliance with medical treatment ICD Code: Z91.19 Status: Acute (4) Cardiomyopathy ICD Code: I42.9 Status: Chronic Assessment and Plan 26-year-old female with Sickle cell disease with crisis Start IV fluids, normal saline at 75/hr. Monitor closely for signs and symptoms of fluid overload Resume hydroxyurea, folic acid Consider hematology consultation Start Dilaudid 1 mg IVP q 3 PRN for severe pain. Transition to oral narcotics as soon as possible. Pt. with history of narcotic seeking behavior. Sickle cell anemia Transfuse 1 unit PRBC Monitor H&H Cardiomyopathy Resume outpatient medications DVT prophylaxis Lovenox Code Status Full code Discussed Condition With Patient, ED physician Physician Certification 2 Midnight Certification Type: Admission for Inpatient Services Order for Inpatient Services The services are ordered in accordance with Medicare regulations or non- Medicare payer requirements, as applicable. In the case of services not specified as inpatient-only, they are appropriately provided as inpatient services in accordance with the 2-midnight benchmark. Estimated LOS (days): 2 days is the estimated time the patient will need to remain in the hospital, assuming treatment plan goals are met and no additional complications. Post-Hospital Plan: Not yet determined Derik Gutierrez MD Feb 04, 2017 18:42
[2017-02-04] MEDS ORDERED: NALOXONE HCL 0.4 MG/ML AMP IV PRN (18:45)
[2017-02-04] MEDS ORDERED: SODIUM CHLORIDE 0.9% FLUSH 10 ML FLUSH IV FLUSH PRN (18:45)
[2017-02-04] MEDS ORDERED: ACETAMINOPHEN/HYDROcodone 325 MG/5 MG TAB PO PRN (18:45)
[2017-02-04] MEDS ORDERED: MORPHINE SULFATE 4 MG/ML INJ IV PRN (18:45)
[2017-02-04] MEDS ORDERED: ACETAMINOPHEN 325 MG TAB PO PRN ×2 (18:45)
[2017-02-04] MEDS ORDERED: HYDROmorphone HCL PF 2 MG/ML VIAL IV PUSH PRN (19:30)
[2017-02-04] MEDS ORDERED: PILL SPLITTER OTHER PRN (19:45)
[2017-02-04 20:10] VITALS: BP 126/83; PULSE 77; RESP 16; TEMP 98.3; O2SAT 97
[2017-02-04] MEDS: DOCUSATE SODIUM 50 MG/SENNA 8.6 MG TAB PO SCH (21:02)
[2017-02-04] MEDS: SODIUM CHLORIDE 0.9% FLUSH 10 ML FLUSH IV FLUSH SCH (21:02)
[2017-02-04] MEDS: diphenhydrAMINE HCL 50 MG/ML VIAL IV PUSH PRN (21:02)
[2017-02-04] MEDS: ACETAMINOPHEN/HYDROcodone 325 MG/7.5 MG TAB PO PRN (21:02)
[2017-02-04] MEDS: ENOXAPARIN SODIUM 30 MG/0.3 ML SYRINGE SQ SCH (21:03)
[2017-02-04] MEDS: SODIUM CHLOR 0.9% 1000 ML INJ 1,000 ML IV SCH ×2 (21:12)
[2017-02-04] MEDS: HYDROmorphone HCL PF 1 MG/ML VIAL IV PUSH PRN (22:03)
[2017-02-04 22:58] VITALS: BP 118/67; PULSE 86; RESP 18; TEMP 97.7; O2SAT 96
[2017-02-04 23:20] VITALS: BP 106/80; PULSE 89; RESP 18; TEMP 98.1; O2SAT 95
[2017-02-05] MEDS: ACETAMINOPHEN/HYDROcodone 325 MG/7.5 MG TAB PO PRN ×6 (01:04→21:37)
[2017-02-05] MEDS: HYDROmorphone HCL PF 1 MG/ML VIAL IV PUSH PRN ×6 (02:44→23:06)
[2017-02-05] MEDS: diphenhydrAMINE HCL 50 MG/ML VIAL IV PUSH PRN ×3 (02:51→18:57)
[2017-02-05 03:00] VITALS: BP 117/67; PULSE 84; RESP 19; TEMP 97.3; O2SAT 97
[2017-02-05] MEDS: SODIUM CHLOR 0.9% 1000 ML INJ 1,000 ML IV SCH ×5 (04:36→23:14)
[2017-02-05 05:00] VITALS: BP 107/59; PULSE 71; RESP 16; TEMP 97.9; O2SAT 96
[2017-02-05 06:47] LABS: AUTOMATED NEUTROPHIL # 9.4 TH/MM3 (1.8-7.7); BASOPHIL # 0.2 TH/MM3 (0-0.2); BASOPHIL % 1.1 % (0.0-2.0); EOSINOPHIL # 0.5 TH/MM3 (0-0.4); EOSINOPHIL % 3.1 % (0.0-4.0); LYMPH % 31.5 % (9.0-44.0); LYMPHOCYTE # 5.5 TH/MM3 (1.0-4.8); MEAN CELL VOLUME 85.3 FL (80.0-100.0); MEAN CORPUSCULAR HEMOGLOBIN 29.3 PG (27.0-34.0); MEAN CORPUSCULAR HGB CONC 34.4 % (32.0-36.0); MONO % 10.3 % (0.0-8.0); PLATELET COUNT 389 TH/MM3 (150-450); RED BLOOD COUNT 2.46 MIL/MM3 (4.00-5.30); RED CELL DISTRIBUTION WIDTH 17.1 % (11.6-17.2); WHITE BLOOD COUNT 17.4 TH/MM3 (4.0-11.0)
[2017-02-05 06:53] LABS: HEMO FLAGS AUTO DIFF
[2017-02-05 07:31] LABS: ALKALINE PHOSPHATASE 70 U/L (45-117); ALT (GPT) 17 U/L (10-53); ANION GAP 8 MEQ/L (5-15); AST (GOT) 37 U/L (15-37); BLOOD UREA NITROGEN 8 MG/DL (7-18); CHLORIDE 107 MEQ/L (98-107); GLOMERULAR FILTRATION RATE 116 ML/MIN (>89); POTASSIUM 3.8 MEQ/L (3.5-5.1); SODIUM (NA) 140 MEQ/L (136-145)
[2017-02-05 07:53] LABS: BASOPHILS 2 % (0-2); CORRECTED NUCLEATED RBC 1 /100 WBC (0-0); NEUTROPHIL # MANUAL DIFF 10.3 TH/MM3 (1.8-7.7); POLYS (SEG NEUTROPHILS) 59 % (16-70); SICKLE CELLS 1+ (NORMAL); WBC DIFF SAMPLE 100
[2017-02-05 07:54] LABS: HOWELL-JOLLY BODIES PRESENT (NONE SEEN); PLATELET ESTIMATE SMEAR NORMAL (NORMAL); PLATELET MORPHOLOGY NORMAL (NORMAL); SCAN/DIFF FINAL DIFF MANUAL
[2017-02-05 08:00] VITALS: BP 118/65; PULSE 86; RESP 20; TEMP 96.7; O2SAT 92
[2017-02-05] MEDS: DOCUSATE SODIUM 50 MG/SENNA 8.6 MG TAB PO SCH ×2 (08:55→21:39)
[2017-02-05] MEDS: FOLIC ACID 1 MG TAB PO SCH (08:55)
[2017-02-05] MEDS: HYDROXYUREA 500 MG CAP PO SCH (08:57)
[2017-02-05] MEDS: SODIUM CHLORIDE 0.9% FLUSH 10 ML FLUSH IV FLUSH SCH ×2 (08:58→21:39)
[2017-02-05] MEDS: LISINOPRIL 5 MG TAB PO SCH (08:59)
[2017-02-05] MEDS: METOPROLOL SUCCINATE 25 MG EXTENDED RELEASE TAB PO SCH (08:59)
[2017-02-05 12:00] VITALS: BP 121/66; PULSE 72; RESP 22; TEMP 97.7; O2SAT 95
--- NOTE | 2017-02-05 13:37 | HHI.PR ---
Subjective Remarks Follow-up sickle cell crisis with anemia 02/05/17-patient seen and examined, reports some improvement of pain. Transfused 1 unit red blood cell yesterday. BP slightly low Objective Vitals Vital Signs Date Time Temp Pulse Resp B/P Pulse Ox O2 Delivery O2 Flow Rate FiO2 02/05/17 12:00 97.7 72 22 121/66 95 02/05/17 08:00 96.7 86 20 118/65 92 02/05/17 05:00 97.9 71 16 107/59 96 02/05/17 03:00 97.3 84 19 117/67 97 02/04/17 23:20 98.1 89 18 106/80 95 02/04/17 22:58 97.7 86 18 118/67 96 02/04/17 20:10 98.3 77 16 126/83 97 02/04/17 18:23 20 02/04/17 17:31 Room Air 02/04/17 17:30 20 02/04/17 14:39 99.4 93 20 134/70 95 Room Air I/O 02/04/17 02/04/17 02/04/17 02/05/17 02/05/17 02/05/17 07:00 15:00 23:00 07:00 15:00 23:00 Intake Total 1980 ml Balance 1980 ml Intake Oral 1380 ml IV Total 300 ml Packed Cells 300 ml # Voids 2 Result Diagram: 02/05/17 0505 02/05/17 0505 Objective Remarks GENERAL: NAD SKIN: Warm and dry. HEAD: Normocephalic. EYES: No scleral icterus. No injection or drainage. NECK: Supple, trachea midline. No JVD or lymphadenopathy. CARDIOVASCULAR: Regular rate and rhythm without murmurs, gallops, or rubs. RESPIRATORY: Breath sounds equal bilaterally. No accessory muscle use. GASTROINTESTINAL: Abdomen soft, non-tender, nondistended. MUSCULOSKELETAL: No cyanosis, or edema. BACK: Nontender without obvious deformity. No CVA tenderness. A/P Problem List: (1) Sickle cell disease with crisis ICD Code: D57.00 Status: Acute (2) Sickle cell anemia with crisis ICD Code: D57.00 Status: Acute (3) Non compliance with medical treatment ICD Code: Z91.19 Status: Acute (4) Cardiomyopathy ICD Code: I42.9 Status: Chronic Assessment and Plan 26-year-old female with Sickle cell disease with crisis Continue IV fluids, normal saline at 75/hr. Monitor closely for signs and symptoms of fluid overload Continue hydroxyurea, folic acid Consider hematology consultation Continue Dilaudid 1 mg IVP q 3 PRN for severe pain. Transition to oral narcotics as soon as possible. Pt. with history of narcotic seeking behavior. Sickle cell anemia Transfused 1 unit PRBC 02/04/17 Monitor H&H Cardiomyopathy Continue outpatient medications Hypertension Continue outpatient medication with holding parameters DVT prophylaxis Derik Andino MD Feb 05, 2017 13:37
[2017-02-05 16:00] VITALS: BP 121/66; PULSE 74; RESP 22; TEMP 97.7; O2SAT 96
[2017-02-05 20:00] VITALS: BP 114/69; PULSE 80; RESP 17; TEMP 98.2; O2SAT 95
[2017-02-05] MEDS: ENOXAPARIN SODIUM 30 MG/0.3 ML SYRINGE SQ SCH (21:39)
[2017-02-06] VITALS: BP 126/60; PULSE 87; RESP 16; TEMP 98.5; O2SAT 95
[2017-02-06] MEDS: ACETAMINOPHEN/HYDROcodone 325 MG/7.5 MG TAB PO PRN ×3 (02:05→18:32)
[2017-02-06] MEDS: HYDROmorphone HCL PF 1 MG/ML VIAL IV PUSH PRN ×4 (03:19→14:58)
[2017-02-06] MEDS: diphenhydrAMINE HCL 50 MG/ML VIAL IV PUSH PRN ×2 (03:20→10:49)
[2017-02-06 06:12] VITALS: BP 115/70; PULSE 90; RESP 15; TEMP 97.7; O2SAT 96
[2017-02-06 08:00] VITALS: BP 121/62; PULSE 78; RESP 22; TEMP 98.2; O2SAT 95
[2017-02-06] MEDS: SODIUM CHLORIDE 0.9% FLUSH 10 ML FLUSH IV FLUSH SCH (09:00)
[2017-02-06] MEDS: FOLIC ACID 1 MG TAB PO SCH (09:55)
[2017-02-06] MEDS: METOPROLOL SUCCINATE 25 MG EXTENDED RELEASE TAB PO SCH (09:55)
[2017-02-06] MEDS: DOCUSATE SODIUM 50 MG/SENNA 8.6 MG TAB PO SCH (09:55)
[2017-02-06] MEDS: LISINOPRIL 5 MG TAB PO SCH (09:56)
[2017-02-06] MEDS: HYDROXYUREA 500 MG CAP PO SCH (10:00)
--- NOTE | 2017-02-06 11:37 | HHI.PR ---
Subjective Remarks Follow-up sickle cell crisis with anemia 02/05/17-patient seen and examined, reports some improvement of pain. Transfused 1 unit red blood cell yesterday. BP slightly low 02/06/17-patient seen and examined; pain well controlled; Afebrile. Stable Objective Vitals Vital Signs Date Time Temp Pulse Resp B/P Pulse Ox O2 Delivery O2 Flow Rate FiO2 02/06/17 08:00 98.2 78 22 121/62 95 02/06/17 06:12 97.7 90 15 115/70 96 02/06/17 00:00 98.5 87 16 126/60 95 02/05/17 20:00 98.2 80 17 114/69 95 02/05/17 16:00 97.7 74 22 121/66 96 02/05/17 12:00 97.7 72 22 121/66 95 I/O 02/05/17 02/05/17 02/05/17 02/06/17 02/06/17 02/06/17 07:00 15:00 23:00 07:00 15:00 23:00 Intake Total 1980 ml 1420 ml 1600 ml 1200 ml Balance 1980 ml 1420 ml 1600 ml 1200 ml Intake Oral 1380 ml 720 ml 1000 ml 600 ml IV Total 300 ml 700 ml 600 ml 600 ml Packed Cells 300 ml # Voids 2 2 4 4 # Bowel Movements 0 Result Diagram: 02/05/17 0505 02/05/17 0505 Objective Remarks GENERAL: NAD SKIN: Warm and dry. HEAD: Normocephalic. EYES: No scleral icterus. No injection or drainage. NECK: Supple, trachea midline. No JVD or lymphadenopathy. CARDIOVASCULAR: Regular rate and rhythm without murmurs, gallops, or rubs. RESPIRATORY: Breath sounds equal bilaterally. No accessory muscle use. GASTROINTESTINAL: Abdomen soft, non-tender, nondistended. MUSCULOSKELETAL: No cyanosis, or edema. BACK: Nontender without obvious deformity. No CVA tenderness. Procedures none A/P Problem List: (1) Sickle cell disease with crisis ICD Code: D57.00 Status: Acute (2) Sickle cell anemia with crisis ICD Code: D57.00 Status: Acute (3) Non compliance with medical treatment ICD Code: Z91.19 Status: Acute (4) Cardiomyopathy ICD Code: I42.9 Status: Chronic Assessment and Plan 26-year-old female with Sickle cell disease with crisis-Improved d/c IV fluids, normal saline at 75/hr. Monitor closely for signs and symptoms of fluid overload Continue hydroxyurea, folic acid Consider hematology consultation Continue Dilaudid 1 mg IVP q 3 PRN for severe pain. Transition to oral narcotics as soon as possible. Pt. with history of narcotic seeking behavior. Sickle cell anemia Transfused 1 unit PRBC 02/04/17 Monitor H&H Cardiomyopathy Continue outpatient medications Hypertension Continue outpatient medication with holding parameters DVT prophylaxis Derik Andino MD Feb 06, 2017 11:37
[2017-02-06] MEDS ORDERED: HYDR-3535 PO (11:39)
--- NOTE | 2017-02-06 11:41 | HHI.DS ---
Discharge Summary Admission Date Feb 04, 2017 at 18:33 Discharge Date: Feb 06, 2017 Admitting Diagnosis Sickle Cell Crisis, Anemia (1) Sickle cell disease with crisis ICD Code: D57.00 (2) Sickle cell anemia with crisis ICD Code: D57.00 (3) Non compliance with medical treatment ICD Code: Z91.19 (4) Cardiomyopathy ICD Code: I42.9 Procedures none Brief History - From Admission 26-year-old female with a history of sickle cell anemia with crisis with multiple admissions to the ED and recently admitted on 01/10/17 discharged 01/13/17 presented to the ED for evaluation of sickle cell crisis mostly in her arm, legs, back over the past 48 hours rated 10/10 in intensity. Patient states with the change of weather along with for menses she has been hurting. She has a history of noncompliance and a drug-seeking behavior. States, she has not been seen by any PCP since discharge. Currently afebrile. Abnormal labs include H/H 6.7/19.1 and elevated WBC 17 CBC/BMP: 02/05/17 0505 02/05/17 0505 Significant Findings Laboratory Tests Test 02/04/17 02/05/17 16:50 05:05 White Blood Count 17.8 TH/MM3 17.4 TH/MM3 (4.0-11.0) (4.0-11.0) Red Blood Count 2.30 MIL/MM3 2.46 MIL/MM3 (4.00-5.30) (4.00-5.30) Hemoglobin 6.7 GM/DL 7.2 GM/DL (11.6-15.3) (11.6-15.3) Hematocrit 19.1 % 21.0 % (35.0-46.0) (35.0-46.0) Red Cell Distribution Width 17.8 % (11.6-17.2) Platelet Count 505 TH/MM3 (150-450) Monocytes (%) (Auto) 10.1 % 10.3 % (0.0-8.0) (0.0-8.0) Neutrophils # (Auto) 12.3 TH/MM3 9.4 TH/MM3 (1.8-7.7) (1.8-7.7) Monocytes # (Auto) 1.8 TH/MM3 1.8 TH/MM3 (0-0.9) (0-0.9) Neutrophils # (Manual) 12.6 TH/MM3 10.3 TH/MM3 (1.8-7.7) (1.8-7.7) Myelocytes 1 % (0-0) Nucleated Red Blood Cells 3 /100 WBC 1 /100 WBC (0-0) (0-0) Platelet Estimate HIGH (NORMAL) Sickle Cells 2+ (NORMAL) 1+ (NORMAL) Target Cells 2+ (NORMAL) Reticulocyte Count 10.8 % (0.4-3.0) Absolute Reticulocyte Count 249.7 MIL/L (20.0-150.0) Blood Urea Nitrogen 5 MG/DL (7-18) Total Bilirubin 1.9 MG/DL 2.0 MG/DL (0.2-1.0) (0.2-1.0) Aspartate Amino Transf 41 U/L (15-37) (AST/SGOT) Lactate Dehydrogenase 414 U/L (84-246) Lymphocytes # (Auto) 5.5 TH/MM3 (1.0-4.8) Eosinophils # (Auto) 0.5 TH/MM3 (0-0.4) Monocytes % 11 % (0-8) Calcium Level 8.1 MG/DL (8.5-10.1) PE at Discharge GENERAL: NAD SKIN: Warm and dry. HEAD: Normocephalic. EYES: No scleral icterus. No injection or drainage. NECK: Supple, trachea midline. No JVD or lymphadenopathy. CARDIOVASCULAR: Regular rate and rhythm without murmurs, gallops, or rubs. RESPIRATORY: Breath sounds equal bilaterally. No accessory muscle use. GASTROINTESTINAL: Abdomen soft, non-tender, nondistended. MUSCULOSKELETAL: No cyanosis, or edema. BACK: Nontender without obvious deformity. No CVA tenderness. Hospital Course Sickle cell disease with crisis Treated with IV fluids, normal saline at 75/hr, hydroxyurea, folic acid and Dilaudid 1 mg IVP q 3 PRN for severe pain. Transitioned to oral narcotics . Pt. with history of narcotic seeking behavior. Sickle cell anemia Transfused 1 unit PRBC 02/04/17 Cardiomyopathy Continued on outpatient medications Hypertension Continued on outpatient medication with holding parameters DVT prophylaxis Lovenox Pt Condition on Discharge: Stable Discharge Disposition: Discharge Home Discharge Time: <= 30 minutes Discharge Instructions DIET: Follow Instructions for: As Tolerated, No Restrictions Activities you can perform: Regular-No Restrictions Derik Gutierrez MD Feb 06, 2017 11:41
[2017-02-06 12:00] VITALS: BP 131/78; PULSE 75; RESP 14; TEMP 98.4; O2SAT 100
== END 2017-02-06 18:50 | disposition home or self-care (01) | DRG 812 ==
LOC: NEPD 14:37 → NEDA 18:33 → HOCB 19:58
PROVIDERS: ADMIT Hospitalist; ATTEND Hospitalist
PROC: 30233N1 Transfusion of Nonautologous Red Blood Cells into Peripheral Vein, Percutaneous Approach (ICD-10-PCS; principal; 2017-02-04)
DX: D57.00 Hb-SS disease with crisis, unspecified (principal); I42.9 Cardiomyopathy, unspecified; J45.909 Unspecified asthma, uncomplicated; I10 Essential (primary) hypertension; D72.829 Elevated white blood cell count, unspecified; Z91.19 Patient's noncompliance with other medical treatment and regimen
CPT/HCPCS: 36430; 80053; 83615; 85007; 85027; 85044; 86850; 86900; 86901; 86902; 86920; 86922; 96361; 96374; 96375; J1170; J1200; J1650; J1885; J7030; J7050; P9016; Q0163

== ENCOUNTER 2017-03-28 02:57 | Emergency (ER) | payer MEDICAID ==
[~2017-03-28] VITALS: Ht 165.1 cm; Wt 71.0 kg
[2017-03-28 03:04] VITALS: BP 119/72; PULSE 113; RESP 15; TEMP 99.9; O2SAT 97
[2017-03-28] MEDS ORDERED: SODIUM CHLOR 0.9% 1000 ML INJ 1,000 ML IV ONE ×2 (04:19→04:30)
--- NOTE | 2017-03-28 04:27 | PD ---
HPI Chief Complaint: Sickle Cell Time Seen by Provider: 04:19 Travel History International Travel<30 days: No Contact w/Intl Traveler<30days: No Traveled to known affect area: No History of Present Illness HPI 26 year-old female with history of sickle cell anemia presents for complaint of crisis pain. Patient reports she's had pain for 2 days. Patient denies fever chills nausea vomiting chest pain shortness of breath abdominal pain flank pain dysuria frequency urgency diarrhea cough congestion joint swelling or redness. Patient states her typical crisis pain affects both legs both arms and her lower back. Last menstrual period was 03/05/17 and normal for her and denies . Patient typically has crisis associated with her menses. Patient was last hospitalized February 04 through February 06 with hemoglobin of 6.7. Hemoglobin typically runs greater than 7.1. 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 PFSH Past Medical History Narrative Medical Sickle cell anemia CHF chest pain asthma migraine tubal ligation C- section [id number]; no tobacco use: No skin notes reviewed Anemia: Yes Arthritis: No Asthma: Yes Autoimmune Disease: No Blood Disorders: Yes Anxiety: Yes Depression: No Heart Rhythm Problems: No Cancer: No Cardiovascular Problems: Yes (CHF) High Cholesterol: No Chemotherapy: No Chest Pain: Yes Congestive Heart Failure: Yes COPD: No Cerebrovascular Accident: No Diabetes: No Diminished Hearing: No Endocrine: No Gastrointestinal Disorders: No GERD: No Genitourinary: No Headaches: Yes Hiatal Hernia: No Heparin Induced Thrombocytopen: No Hypertension: No Immune Disorder: No Implanted Vascular Access Dvce: Yes Kidney Stones: No Musculoskeletal: No Neurologic: Yes Psychiatric: Yes Reproductive: No Respiratory: Yes (Asthma) Immunizations Current: Yes Migraines: Yes Pneumonia: Yes Radiation Therapy: No Renal Failure: No Seizures: No Sickle Cell Disease: Yes Sleep Apnea: No Thyroid Disease: No Ulcer: No PNEUMOCCOCAL Vaccine (Year): 1 ?: Not LMP: 03/05/17 : 1 Para: 1 Miscarriage: 0 : 0 Tubal Ligation: Yes Past Surgical History Abdominal Surgery: No AICD: No Arteriovenous Shunt: No Body Medical Devices: INFUSAPORT (3RD) Cardiac Surgery: No Section: Yes (X 1) Cholecystectomy: Yes Ear Surgery: No Endocrine Surgery: No Eye Surgery: No Genitourinary Surgery: No Gynecologic Surgery: Yes (c section) Hysterectomy: No Insulin Pump: No Joint Replacement: No Neurologic Surgery: No Oral Surgery: No Pacemaker: No Thoracic Surgery: No Other Surgery: Yes (PORTX3 PLACED AND REMOVED, gallstones) Social History Alcohol Use: No Tobacco Use: No Substance Use: No Allergies-Medications (Allergen,Severity, Reaction): Coded Allergies: Percocet (Verified Adverse Reaction, Severe, Nausea/Vomiting, 03/28/17) AND ITCHING *MDRO Multi-Drug Resistant Organism (Verified Adverse Reaction, Unknown, Cleared 02/08/15, 03/28/17) MRSA (Chest Wound) - 02/2012 MRSA PCR Screen negative 02/06/15 and 02/08/15. Cleared per Infection Control Reported Meds & Prescriptions Reported Meds & Active Scripts Active Lortab (Hydrocodone-Acetaminophen) 10-325 Mg Tab 1 Tab PO Q6H PRN Hydrea (Hydroxyurea) 500 Mg Cap 500 Mg PO DAILY 30 Days Reported Ambien (Zolpidem Tartrate) 5 Mg Tab 5 Mg PO HS Proventil Hfa 6.7 GM Inh (Albuterol Sulfate) 90 Mcg/Act Aer 2 Puff INH Q6H PRN Review of Systems Except as stated in HPI: all other systems reviewed are Neg Physical Exam Narrative GENERAL: Well-developed well-nourished female in no acute distress no respiratory distress with mild tachycardia heart rate 113 in triage supple and sitting comfortably upright on stretcher taxing on found SKIN: Warm and dry. HEAD: Normocephalic. EYES: No scleral icterus. No injection or drainage. NECK: Supple, trachea midline. No JVD or lymphadenopathy. CARDIOVASCULAR: Increased Regular rate and rhythm without murmurs, gallops, or rubs. RESPIRATORY: Breath sounds equal bilaterally. No accessory muscle use. GASTROINTESTINAL: Abdomen soft, non-tender, nondistended. MUSCULOSKELETAL: No cyanosis, or edema. BACK: Nontender without obvious deformity. No CVA tenderness. Data Data Last Documented VS Vital Signs Date Time Temp Pulse Resp B/P Pulse Ox O2 Delivery O2 Flow Rate FiO2 03/28/17 03:04 99.9 113 15 119/72 97 Room Air Orders Basic Metabolic Panel (Bmp) (03/28/17 04:19) Complete Blood Count With Diff (03/28/17 04:19) Retic Count (03/28/17 04:19) Urinalysis - C+S If Indicated (03/28/17 04:19) Ecg Monitoring (03/28/17 04:19) Iv Access Insert/Monitor (03/28/17 04:19) Oximetry (03/28/17 04:19) Sodium Chloride 0.9% Flush (Ns Flush) (03/28/17 04:30) Sodium Chlor 0.9% 1000 Ml Inj (Ns 1000 M (03/28/17 04:19) Diphenhydramine Inj (Benadryl Inj) (03/28/17 04:30) Hydromorphone Pf Inj (Dilaudid Pf Inj) (03/28/17 04:30) Sodium Chlor 0.9% 1000 Ml Inj (Ns 1000 M (03/28/17 04:30) Ondansetron Inj (Zofran Inj) (03/28/17 04:30) Ketorolac Inj (Toradol Inj) (03/28/17 06:15) Hydromorphone Pf Inj (Dilaudid Pf Inj) (03/28/17 06:15) Diphenhydramine Inj (Benadryl Inj) (03/28/17 06:15) Labs Laboratory Tests Test 03/28/17 04:45 White Blood Count 18.7 TH/MM3 Red Blood Count 2.37 MIL/MM3 Hemoglobin 7.1 GM/DL Hematocrit 20.2 % Mean Corpuscular Volume 85.4 FL Mean Corpuscular Hemoglobin 29.9 PG Mean Corpuscular Hemoglobin 35.0 % Concent Red Cell Distribution Width 16.2 % Platelet Count 505 TH/MM3 Mean Platelet Volume 8.0 FL Neutrophils (%) (Auto) 74.7 % Lymphocytes (%) (Auto) 14.0 % Monocytes (%) (Auto) 9.1 % Eosinophils (%) (Auto) 1.6 % Basophils (%) (Auto) 0.6 % Neutrophils # (Auto) 14.0 TH/MM3 Lymphocytes # (Auto) 2.6 TH/MM3 Monocytes # (Auto) 1.7 TH/MM3 Eosinophils # (Auto) 0.3 TH/MM3 Basophils # (Auto) 0.1 TH/MM3 CBC Comment AUTO DIFF Differential Comment AUTO DIFF CONFIRMED Platelet Estimate HIGH Platelet Morphology Comment NORMAL Sickle Cells 1+ Target Cells 1+ Ovalocytes 1+ Keratocytes Reticulocyte Count 5.1 % Absolute Reticulocyte Count 120.6 MIL/L Urine Color YELLOW Urine Turbidity HAZY Urine pH 6.0 Urine Specific [place] 1.013 Urine Protein TRACE mg/dL Urine Glucose (UA) NEG mg/dL Urine Ketones NEG mg/dL Urine Occult Blood TRACE Urine Nitrite NEG Urine Bilirubin NEG Urine Urobilinogen LESS THAN 2.0 MG/DL Urine Leukocyte Esterase SMALL Urine RBC 2 /hpf Urine WBC 2 /hpf Urine Squamous Epithelial 10 /hpf Cells Urine Hyaline Casts 2 /lpf Urine Mucus FEW /lpf Microscopic Urinalysis Comment CULT NOT INDICATED Sodium Level 137 MEQ/L Potassium Level 3.5 MEQ/L Chloride Level 108 MEQ/L Carbon Dioxide Level 19.4 MEQ/L Anion Gap 10 MEQ/L Blood Urea Nitrogen 8 MG/DL Creatinine 0.70 MG/DL Estimat Glomerular Filtration 121 ML/MIN Rate Random Glucose 99 MG/DL Calcium Level 9.0 MG/DL MDM Medical Decision Making Medical Screen Exam Complete: Yes Emergency Medical Condition: Yes Medical Record Reviewed: Yes Interpretation(s) CBC & BMP Diagram 03/28/17 04:45 Vital Signs Date Time Temp Pulse Resp B/P Pulse Ox O2 Delivery O2 Flow Rate FiO2 03/28/17 03:04 99.9 113 15 119/72 97 Room Air RC: 5.1, mildly elevated; absolute rc: 1206., elevated Differential Diagnosis Sickle cell anemia, vaso-occlusive crisis, anemia, dehydration, electronic disturbance, UTI Narrative Course IV access obtained specimens collected and sent for resulting patient given 1 L bolus of normal saline Dilaudid 1 mg IV Benadryl 25 mg IV and Zofran 4 mg IV Patient written for second liter of normal saline Patient's hemoglobin is 7.1 which is her baseline other values are consistent with mild crisis and patient is otherwise stable for outpatient management Diagnosis Primary Impression: Sickle cell anemia Qualified Code: D57.00 - Hb-SS disease with crisis Referrals: Primary Care Physician call for appointment Patient Instructions: Narcotic given in the ED, General Instructions Additional Instructions: Increase fluid hydration Follow-up with primary care provider Continue current medications as currently prescribed Return to the emergency department for any concerns or change in condition Med/Other Pt SpecificInfo: No Change to Meds Disposition: 01 DISCHARGE HOME Condition: Stable Alma Shepherd MD Mar 28, 2017 04:27
[2017-03-28] MEDS ORDERED: diphenhydrAMINE HCL 50 MG/ML VIAL IV PUSH ONE ×2 (04:30→06:15)
[2017-03-28] MEDS ORDERED: ONDANSETRON HCL 4 MG/2 ML VIAL IV PUSH ONE (04:30)
[2017-03-28] MEDS ORDERED: SODIUM CHLORIDE 0.9% FLUSH 10 ML FLUSH IVF PRN (04:30)
[2017-03-28] MEDS ORDERED: HYDROmorphone HCL PF 1 MG/ML VIAL IV PUSH ONE ×2 (04:30→06:15)
[2017-03-28 05:02] LABS: BASOPHIL # 0.1 TH/MM3 (0-0.2); BASOPHIL % 0.6 % (0.0-2.0); EOSINOPHIL # 0.3 TH/MM3 (0-0.4); EOSINOPHIL % 1.6 % (0.0-4.0); LYMPHOCYTE # 2.6 TH/MM3 (1.0-4.8); MEAN CELL VOLUME 85.4 FL (80.0-100.0); MEAN CORPUSCULAR HEMOGLOBIN 29.9 PG (27.0-34.0); MONO % 9.1 % (0.0-8.0); NEUT % 74.7 % (16.0-70.0); PLATELET COUNT 505 TH/MM3 (150-450); RED BLOOD COUNT 2.37 MIL/MM3 (4.00-5.30); RED CELL DISTRIBUTION WIDTH 16.2 % (11.6-17.2); RETIC % 5.1 % (0.4-3.0); WHITE BLOOD COUNT 18.7 TH/MM3 (4.0-11.0)
[2017-03-28 05:04] LABS: HEMO FLAGS AUTO DIFF; REVIEW FLAG FINAL
[2017-03-28 05:06] LABS: HEMATOCRIT 20.2 % (35.0-46.0)
[2017-03-28 05:30] LABS: BLOOD, URINE TRACE (NEG); COMMENT (UR) CULT NOT INDICATED; CULTURE IF INDICATED CULT NOT INDICATED; GLUCOSE,URINE NEG (NEG); HYALINE CAST, URINE 2 /lpf (RARE); KETONE, URINE NEG (NEG); MUCUS URINE FEW /lpf (OCC); NITRITE,URINE NEG (NEG); SQUAMOUS EPITHELIAL CELL URINE 10 /hpf (0-5); URINE COLOR YELLOW (YELLW/STRAW)
[2017-03-28 05:31] LABS: BICARBONATE 19.4 MEQ/L (21.0-32.0); POTASSIUM 3.5 MEQ/L (3.5-5.1)
[2017-03-28] MEDS ORDERED: KETOROLAC TROMETHAMINE 30 MG/ML (IVP) VIAL IV PUSH ONE (06:15)
[2017-03-28 06:16] LABS: PLATELET ESTIMATE SMEAR HIGH (NORMAL); PLATELET MORPHOLOGY NORMAL (NORMAL); SCAN/DIFF AUTO DIFF CONFIRMED
[2017-03-28 06:18] LABS: TARGET CELLS 1+ (NORMAL)
[2017-03-28 06:20] LABS: OVALOCYTES 1+ (NORMAL); SICKLE CELLS 1+ (NORMAL)
[2017-03-28 07:07] VITALS: BP 96/54; PULSE 94; RESP 18; O2SAT 100
== END 2017-03-28 07:49 | disposition home or self-care (01) ==
LOC: NEPC 02:57
DX: D57.00 Hb-SS disease with crisis, unspecified (principal); I50.9 Heart failure, unspecified; F41.9 Anxiety disorder, unspecified
CPT/HCPCS: 80048; 81001; 85025; 85044; 96374; 96375; 96376; 99284; J1170; J1200; J1642; J1885; J2405; J7030

== ENCOUNTER 2017-04-07 01:14 | Inpatient (IN) | payer MEDICAID ==
[~2017-04-07] VITALS: Ht 165.1 cm; Wt 73.3 kg
[2017-04-07] VITALS (14 sets, daily range): BP systolic 105–137; BP diastolic 52–94; PULSE 73–115; RESP 16–19; TEMP 97.6–99.5; O2SAT 92–99
[~2017-04-07 01:14] MED LIST changes: -LISI-519 PO; -METO25TA6 PO
[2017-04-07] MEDS ORDERED: FOLI400T PO (01:25)
[2017-04-07] MEDS ORDERED: SODIUM CHLOR 0.9% 1000 ML INJ 1,000 ML IV ONE (01:42)
[2017-04-07] MEDS ORDERED: HYDROmorphone HCL PF 1 MG/ML VIAL IVS ONE (01:45)
--- NOTE | 2017-04-07 01:45 | PD ---
HPI Chief Complaint: Sickle Cell Time Seen by Provider: 01:39 Travel History International Travel<30 days: No Contact w/Intl Traveler<30days: No Traveled to known affect area: No History of Present Illness HPI 26-year-old female with history of sickle cell anemia here for evaluation of sickle cell pain crisis. The patient reports that for the last 2 days she has been having pain which is typical for her pain crisis. She describes diffuse body pains. She has had a nonproductive cough and has had some chills. No fevers. She reports that her validation architect discharged her from their practice, and she does not know why. Because of this she does not follow up with a validation architect. PFSH Past Medical History Anemia: Yes Arthritis: No Asthma: Yes Autoimmune Disease: No Blood Disorders: Yes Anxiety: Yes Depression: No Heart Rhythm Problems: No Cancer: No Cardiovascular Problems: Yes (CHF) High Cholesterol: No Chemotherapy: No Chest Pain: Yes Congestive Heart Failure: Yes COPD: No Cerebrovascular Accident: No Diabetes: No Diminished Hearing: No Endocrine: No Gastrointestinal Disorders: No GERD: No Genitourinary: No Headaches: Yes Hiatal Hernia: No Heparin Induced Thrombocytopen: No Hypertension: No Immune Disorder: No Implanted Vascular Access Dvce: Yes Kidney Stones: No Musculoskeletal: No Neurologic: Yes Psychiatric: Yes Reproductive: No Respiratory: Yes (Asthma) Immunizations Current: Yes Migraines: Yes Pneumonia: Yes Radiation Therapy: No Renal Failure: No Seizures: No Sickle Cell Disease: Yes Sleep Apnea: No Thyroid Disease: No Ulcer: No Tetanus Vaccination: > 5 Years Influenza Vaccination: Yes PNEUMOCCOCAL Vaccine (Year): 1 ?: Not LMP: CURRENT : 1 Para: 1 Miscarriage: 0 : 0 Tubal Ligation: Yes Past Surgical History Abdominal Surgery: No AICD: No Arteriovenous Shunt: No Body Medical Devices: INFUSAPORT (3RD) Cardiac Surgery: No Section: Yes (X 1) Cholecystectomy: Yes Ear Surgery: No Endocrine Surgery: No Eye Surgery: No Genitourinary Surgery: No Gynecologic Surgery: Yes (c section) Hysterectomy: No Insulin Pump: No Joint Replacement: No Neurologic Surgery: No Oral Surgery: No Pacemaker: No Thoracic Surgery: No Other Surgery: Yes (PORTX3 PLACED AND REMOVED, gallstones) Social History Alcohol Use: No Tobacco Use: No Substance Use: No Allergies-Medications (Allergen,Severity, Reaction): Coded Allergies: Percocet (Verified Adverse Reaction, Severe, Nausea/Vomiting, 04/07/17) AND ITCHING *MDRO Multi-Drug Resistant Organism (Verified Adverse Reaction, Unknown, Cleared 02/08/15, 04/07/17) MRSA (Chest Wound) - 02/2012 MRSA PCR Screen negative 02/06/15 and 02/08/15. Cleared per Infection Control Reported Meds & Prescriptions Reported Meds & Active Scripts Active Lortab (Hydrocodone-Acetaminophen) 10-325 Mg Tab 1 Tab PO Q6H PRN Hydrea (Hydroxyurea) 500 Mg Cap 500 Mg PO DAILY 30 Days Reported Folic Acid 400 Mcg Tab 400 Mcg PO DAILY Ambien (Zolpidem Tartrate) 5 Mg Tab 5 Mg PO HS Proventil Hfa 6.7 GM Inh (Albuterol Sulfate) 90 Mcg/Act Aer 2 Puff INH Q6H PRN Review of Systems Except as stated in HPI: all other systems reviewed are Neg Physical Exam Narrative GENERAL: Well-developed, well-nourished, comfortable, no apparent distress. SKIN: Focused skin assessment warm/dry. No pallor. HEAD: Atraumatic. Normocephalic. EYES: Pupils equal and round. Bilateral scleral icterus. No injection or drainage. ENT: Mucous membranes pink and moist. NECK: Trachea midline. No JVD. CARDIOVASCULAR: Regular rate and rhythm. No murmur appreciated. RESPIRATORY: No accessory muscle use. Clear to auscultation. Breath sounds equal bilaterally. GASTROINTESTINAL: Abdomen soft, non-tender, nondistended. MUSCULOSKELETAL: No obvious deformities. No clubbing. No cyanosis. No edema. Right anterior chest Port-A-Cath. NEUROLOGICAL: Awake and alert. No obvious cranial nerve deficits. Motor grossly within normal limits. Normal speech. PSYCHIATRIC: Appropriate mood and affect; insight and judgment normal. Data Data Last Documented VS Vital Signs Date Time Temp Pulse Resp B/P Pulse Ox O2 Delivery O2 Flow Rate FiO2 04/07/17 01:30 19 99 Room Air 04/07/17 01:19 99.5 115 130/72 Orders Complete Blood Count With Diff (04/07/17 01:42) Comprehensive Metabolic Panel (04/07/17 01:42) Retic Count (04/07/17 01:42) Chest, Single Ap (04/07/17 01:42) Ecg Monitoring (04/07/17 01:42) Iv Access Insert/Monitor (04/07/17 01:42) Oximetry (04/07/17 01:42) Sodium Chloride 0.9% Flush (Ns Flush) (04/07/17 01:45) Sodium Chlor 0.9% 1000 Ml Inj (Ns 1000 M (04/07/17 01:42) Hydromorphone Pf Inj (Dilaudid Pf Inj) (04/07/17 01:45) Urinalysis - C+S If Indicated (04/07/17 02:23) Blood Culture (04/07/17 02:33) Type And Screen (04/07/17 02:34) Hydromorphone Pf Inj (Dilaudid Pf Inj) (04/07/17 02:45) Red Blood Cells (Rbc) (04/07/17 02:38) Blood Product Administration .UPON TRANSFUSION (04/07/17 02:38) Sodium Chlor 0.9% 250 Ml Inj (Ns 250 Ml (04/07/17 02:45) Potassium Chloride (Kcl) (04/07/17 03:15) Labs Laboratory Tests Test 04/07/17 01:45 White Blood Count 19.5 TH/MM3 Red Blood Count 2.08 MIL/MM3 Hemoglobin 6.4 GM/DL Hematocrit 18.3 % Mean Corpuscular Volume 87.9 FL Mean Corpuscular Hemoglobin 30.8 PG Mean Corpuscular Hemoglobin 35.1 % Concent Red Cell Distribution Width 18.5 % Platelet Count 500 TH/MM3 Mean Platelet Volume 7.6 FL Neutrophils (%) (Auto) 68.0 % Lymphocytes (%) (Auto) 19.7 % Monocytes (%) (Auto) 9.3 % Eosinophils (%) (Auto) 2.2 % Basophils (%) (Auto) 0.8 % Neutrophils # (Auto) 13.2 TH/MM3 Lymphocytes # (Auto) 3.8 TH/MM3 Monocytes # (Auto) 1.8 TH/MM3 Eosinophils # (Auto) 0.4 TH/MM3 Basophils # (Auto) 0.2 TH/MM3 CBC Comment AUTO DIFF Differential Total Cells 100 Counted Neutrophils % (Manual) 61 % Band Neutrophils % 3 % Lymphocytes % 26 % Monocytes % 4 % Eosinophils % 2 % Basophils % 2 % Neutrophils # (Manual) 12.9 TH/MM3 Myelocytes 1 % Promyelocytes 1 % Nucleated Red Blood Cells 2 /100 WBC Differential Comment FINAL DIFF MANUAL Atypical Lymphocytes % Platelet Estimate HIGH Platelet Morphology Comment NORMAL Polychromasia 4.1 % Sickle Cells 1+ Target Cells 1+ Karimi-[place] Bodies PRESENT Acanthocytes OCC Reticulocyte Count 9.6 % Absolute Reticulocyte Count 200.5 MIL/L Sodium Level 145 MEQ/L Potassium Level 3.1 MEQ/L Chloride Level 115 MEQ/L Carbon Dioxide Level 20.3 MEQ/L Anion Gap 10 MEQ/L Blood Urea Nitrogen 10 MG/DL Creatinine 0.79 MG/DL Estimat Glomerular Filtration 106 ML/MIN Rate Random Glucose 90 MG/DL Calcium Level 8.1 MG/DL Total Bilirubin 1.7 MG/DL Aspartate Amino Transf 36 U/L (AST/SGOT) Alanine Aminotransferase 14 U/L (ALT/SGPT) Alkaline Phosphatase 71 U/L Total Protein 7.4 GM/DL Albumin 3.7 GM/DL MDM Medical Decision Making Medical Screen Exam Complete: Yes Emergency Medical Condition: Yes Differential Diagnosis Sickle cell crisis, anemia, acute chest syndrome Narrative Course Initial vital signs show heart rate 115, blood pressure 130/72, pulse ox 94% on room air, oral temp of 99.5F. CBC is remarkable for WBC 19.5, hemoglobin 6.4, hematocrit 18.3, platelets 500. Reticulocyte count is 9.6%. CMP is remarkable for potassium 3.1, T bili 1.7. Potassium replaced orally. Chest x-ray: No acute disease. Patient made aware of all findings. Given oral temp of 99.5 with leukocytosis of 19.5, I am concerned about possible Port-A-Cath infection. Blood cultures obtained through her port. Patient's hemoglobin is also 6.4 which although the patient has sickle cell anemia, is low for her. She will be transfused 2 units of PRBCs and will be admitted for further treatment and evaluation. Patient was given a dose of IV pain medication and continues to complain of pain. Patient made aware of all findings and plan for admission. Case discussed with hospitalist Dr. Saba who will admit the patient to her service. Diagnosis Primary Impression: Sickle cell crisis Additional Impressions: Anemia Qualified Code: D64.9 - Anemia, unspecified type Leukocytosis Qualified Code: D72.829 - Leukocytosis, unspecified type Admitting Information Admitting Physician Requests: Admit Boy Farrell MD Apr 07, 2017 01:45
[2017-04-07] MEDS: SODIUM CHLORIDE 0.9% FLUSH 10 ML FLUSH IVF PRN (02:04)
[2017-04-07 02:13] LABS: AUTOMATED NEUTROPHIL # 13.2 TH/MM3 (1.8-7.7); BASOPHIL # 0.2 TH/MM3 (0-0.2); BASOPHIL % 0.8 % (0.0-2.0); EOSINOPHIL # 0.4 TH/MM3 (0-0.4); EOSINOPHIL % 2.2 % (0.0-4.0); LYMPH % 19.7 % (9.0-44.0); LYMPHOCYTE # 3.8 TH/MM3 (1.0-4.8); MEAN CELL VOLUME 87.9 FL (80.0-100.0); MEAN CORPUSCULAR HEMOGLOBIN 30.8 PG (27.0-34.0); MEAN CORPUSCULAR HGB CONC 35.1 % (32.0-36.0); MONO % 9.3 % (0.0-8.0); PLATELET COUNT 500 TH/MM3 (150-450); RED BLOOD COUNT 2.08 MIL/MM3 (4.00-5.30); RED CELL DISTRIBUTION WIDTH 18.5 % (11.6-17.2); RETIC % 9.6 % (0.4-3.0); WHITE BLOOD COUNT 19.5 TH/MM3 (4.0-11.0)
[2017-04-07 02:14] LABS: HEMO FLAGS AUTO DIFF; REVIEW FLAG AUTO DIFF
[2017-04-07 02:17] LABS: HEMATOCRIT 18.3 % (35.0-46.0)
--- NOTE | 2017-04-07 02:21 | RADRPT ---
EXAM DATE/TIME: 04/07/2017 01:41 [facility] COMPARISON: No previous studies available for comparison. INDICATIONS : Short of breath. MEDICAL HISTORY : Sickle Cell disease. SURGICAL HISTORY : None. ENCOUNTER: Initial ACUITY: 1 day PAIN SCORE: 0/10 LOCATION: Bilateral chest FINDINGS: A single view of the chest demonstrates the lungs to be symmetrically aerated without evidence of mas s, infiltrate or effusion. The cardiomediastinal contours are unremarkable. Osseous structures are intact. Right sided portacatheter again noted. CONCLUSION: No acute disease. Rebel Cotto MD on April 07, 2017 at 2:19 Board Certified Radiologist. This report was verified electronically.
[2017-04-07] MEDS ORDERED: SODIUM CHLOR 0.9% 250 ML INJ 250 ML IV ONE (02:45)
[2017-04-07] MEDS ORDERED: HYDROmorphone HCL PF 1 MG/ML VIAL IV PUSH ONE (02:45)
[2017-04-07 02:58] LABS: ALKALINE PHOSPHATASE 71 U/L (45-117); ALT (GPT) 14 U/L (10-53); TOTAL BILIRUBIN ADULT 1.7 MG/DL (0.2-1.0)
[2017-04-07 03:00] LABS: ANION GAP 10 MEQ/L (5-15); AST (GOT) 36 U/L (15-37); BICARBONATE 20.3 MEQ/L (21.0-32.0); BLOOD UREA NITROGEN 10 MG/DL (7-18); CHLORIDE 115 MEQ/L (98-107); GLOMERULAR FILTRATION RATE 106 ML/MIN (>89); POTASSIUM 3.1 MEQ/L (3.5-5.1); SODIUM (NA) 145 MEQ/L (136-145)
[2017-04-07] MEDS ORDERED: POTASSIUM CHLORIDE 20 MEQ CONTROLLED RELEASE TAB PO ONE (03:15)
[2017-04-07 03:20] LABS: BANDS 3 % (0-6); BASOPHILS 2 % (0-2); CORRECTED NUCLEATED RBC 2 /100 WBC (0-0); EOSINOPHILS 2 % (0-4); MYELOCYTES 1 % (0-0); NEUTROPHIL # MANUAL DIFF 12.9 TH/MM3 (1.8-7.7); PLATELET ESTIMATE SMEAR HIGH (NORMAL); PLATELET MORPHOLOGY NORMAL (NORMAL); POLYS (SEG NEUTROPHILS) 61 % (16-70); PROMYELOCYTES 1 % (0-0); SCAN/DIFF FINAL DIFF MANUAL; WBC DIFF SAMPLE 100
[2017-04-07 03:21] LABS: SICKLE CELLS 1+ (NORMAL)
[2017-04-07 03:23] LABS: POLYCHROMASIA 4.1 % (0.0-1.9)
[2017-04-07 03:24] LABS: ACANTHOCYTES OCC (NORMAL); HOWELL-JOLLY BODIES PRESENT (NONE SEEN); TARGET CELLS 1+ (NORMAL)
[2017-04-07] MEDS ORDERED: NALOXONE HCL 0.4 MG/ML AMP IV PRN (03:45)
[2017-04-07] MEDS ORDERED: FUROSEMIDE 20 MG/2 ML VIAL IV PUSH SCH (03:45)
[2017-04-07] MEDS ORDERED: ONDANSETRON HCL 4 MG/2 ML VIAL IV PUSH ONE (04:15)
[2017-04-07] MEDS: HYDROmorphone HCL PF 1 MG/ML VIAL IV PUSH PRN ×7 (06:15→23:54)
[2017-04-07] MEDS: SODIUM CHLORIDE 0.9% FLUSH 10 ML FLUSH IV FLUSH SCH ×2 (08:54→21:08)
--- NOTE | 2017-04-07 09:22 | HHI.HP ---
HPI Service [facility] Hospitalists Primary Care Physician No Primary Care Physician Admission Diagnosis sickle cell crisis, anemia, leukocytosis Diagnoses: Chief Complaint: Sickle cell pain in arms, back and legs Travel History International Travel<30 Days: No Contact w/Intl Traveler <30 Da: No Traveled to Known Affected Are: No History of Present Illness This is a 26-year-old female with a past medical history significant for sickle cell disease, asthma and CHF who presents to [facility] ED with complaints of a sickle cell pain crisis in her back, arms and legs ongoing for the past 2 days. She states the typical pain crisis for her and is usually exacerbated by her menstrual cycle. She reports her last crisis was a month ago during her last menstrual cycle now not as severe. She denies any complaints of chest pain or shortness of breath. She states she has some chills but no fever. She reports slight cough without any sputum production. She reports mild headache. She states she has some mild lower abdominal cramping that she attributes to her regular menstrual cramps. She denies any dizziness or vision changes. She denies any weakness, numbness or tingling. She denies any nausea or vomiting. She denies any hematuria, dysuria, diarrhea or constipation. Patient previously followed by fountain vending mechanic she believes Dr. Fuentes as an outpatient but was let go from the practice for uncertain reasons but she believes it may be due to pain management. She states she has an upcoming appointment with a new primary care physician on April 20 and is planning to get a referral to a pain management physician in [place]. She normally takes Lortab 10 for pain relief at home. In the ED, workup was significant for leukocytosis with a white count of 19.5 as well as anemia with hemoglobin of 6.4 and hematocrit of 18.3. Transfusion of 2 units of PRBCs has been ordered by the ED physician and patient currently has one unit of blood hanging. She states her pain is well- controlled at this time. She is requesting IV Benadryl for itching but admits she only has a mild amount of itching presently. She also is hypokalemic with potassium level of 3.1. Blood cultures are pending. Chest x-ray was unremarkable. Review of Systems Except as stated in HPI: all other systems reviewed are Neg Past Family Social History Past Medical History Sickle cell disease Sickle cell anemia CHF Asthma Gallstones Past Surgical History 1 Port 3 placed and removed Reported Medications Lortab (Hydrocodone-Acetaminophen) 10-325 Mg Tab 1 Tab PO Q6H PRN Hydrea (Hydroxyurea) 500 Mg Cap 500 Mg PO DAILY 30 Days Folic Acid 400 Mcg Tab 400 Mcg PO DAILY Ambien (Zolpidem Tartrate) 5 Mg Tab 5 Mg PO HS Proventil Hfa 6.7 GM Inh (Albuterol Sulfate) 90 Mcg/Act Aer 2 Puff INH Q6H PRN Allergies: Coded Allergies: Percocet (Verified Adverse Reaction, Severe, Nausea/Vomiting, 04/07/17) AND ITCHING *MDRO Multi-Drug Resistant Organism (Verified Adverse Reaction, Unknown, Cleared 02/08/15, 04/07/17) MRSA (Chest Wound) - 02/2012 MRSA PCR Screen negative 02/06/15 and 02/08/15. Cleared per Infection Control Active Ordered Medications Current Medications Medications (Trade) Dose Ordered Sig/Pavel Route Start Time Stop Time Status Last Admin Sodium Chloride 2 ml 2 ml UNSCH PRN IVF 04/07/17 01:45 04/07/17 02:04 (NS 250 ml Inj) 250 ml @ 15 mls/hr ONCE ONCE IV 04/07/17 02:45 04/07/17 19:24 04/07/17 05:51 (NS Flush) 2 ml UNSCH PRN IV FLUSH 04/07/17 03:45 (NS Flush) 2 ml BID IV FLUSH 04/07/17 09:00 (Narcan Inj) 0.4 mg UNSCH PRN IV 04/07/17 03:45 (Dilaudid Pf Inj) 0.2 mg Q3H PRN IV PUSH 04/07/17 03:45 04/07/17 06:15 (Lasix Inj) 20 mg UNSCH IV PUSH 04/07/17 03:45 04/08/17 03:44 Family History Both parents, diabetes and sickle cell trait Sister, sickle cell disease Social History Patient has a history of tobacco use for a few years but quit 5 years ago. She reports occasional alcohol consumption. She denies any illicit drug use. Physical Exam Vital Signs Vital Signs Date Time Temp Pulse Resp B/P Pulse Ox O2 Delivery O2 Flow Rate FiO2 04/07/17 07:12 98.7 73 18 105/69 93 04/07/17 06:00 98.1 87 18 137/94 96 04/07/17 05:52 97.9 84 18 108/62 95 04/07/17 01:30 19 99 Room Air 04/07/17 01:23 16 04/07/17 01:19 99.5 115 16 130/72 94 Physical Exam GENERAL: This is a well-nourished, well-developed patient, in no apparent distress. Sitting up in hospital bed. Appears comfortable at present. SKIN: No rashes, ecchymoses or lesions. Warm and dry. HEAD: Atraumatic. Normocephalic. No temporal or scalp tenderness. EYES: Pupils equal round and reactive. Extraocular motions intact. No scleral icterus. No injection or drainage. ENT: Nose without bleeding or purulent drainage. Throat without erythema, tonsillar hypertrophy or exudate. Uvula midline. Airway patent. NECK: Trachea midline. No lymphadenopathy. Supple, nontender, no meningeal signs. CARDIOVASCULAR: Tachycardic without murmurs, gallops, or rubs. RESPIRATORY: Clear to auscultation. Breath sounds equal bilaterally. No wheezes , rales, or rhonchi. GASTROINTESTINAL: Abdomen soft, non-tender, nondistended. No hepato-splenomegaly , or palpable masses. No guarding. MUSCULOSKELETAL: Extremities without clubbing, cyanosis, or edema. No joint tenderness, effusion, or edema noted. No calf tenderness. NEUROLOGICAL: Awake and alert. Able to move all extremities. No focal neurologic findings appreciated. Normal speech. Laboratory Laboratory Tests Test 04/07/17 04/07/17 01:45 02:45 White Blood Count 19.5 Red Blood Count 2.08 Hemoglobin 6.4 Hematocrit 18.3 Mean Corpuscular Volume 87.9 Mean Corpuscular Hemoglobin 30.8 Mean Corpuscular Hemoglobin 35.1 Concent Red Cell Distribution Width 18.5 Platelet Count 500 Mean Platelet Volume 7.6 Neutrophils (%) (Auto) 68.0 Lymphocytes (%) (Auto) 19.7 Monocytes (%) (Auto) 9.3 Eosinophils (%) (Auto) 2.2 Basophils (%) (Auto) 0.8 Neutrophils # (Auto) 13.2 Lymphocytes # (Auto) 3.8 Monocytes # (Auto) 1.8 Eosinophils # (Auto) 0.4 Basophils # (Auto) 0.2 CBC Comment AUTO DIFF Differential Total Cells 100 Counted Neutrophils % (Manual) 61 Band Neutrophils % 3 Lymphocytes % 26 Monocytes % 4 Eosinophils % 2 Basophils % 2 Neutrophils # (Manual) 12.9 Myelocytes 1 Promyelocytes 1 Nucleated Red Blood Cells 2 Differential Comment FINAL DIFF MANUAL Atypical Lymphocytes Platelet Estimate HIGH Platelet Morphology Comment NORMAL Polychromasia 4.1 Sickle Cells 1+ Target Cells 1+ Karimi-Olive Bodies PRESENT Acanthocytes OCC Reticulocyte Count 9.6 Absolute Reticulocyte Count 200.5 Sodium Level 145 Potassium Level 3.1 Chloride Level 115 Carbon Dioxide Level 20.3 Anion Gap 10 Blood Urea Nitrogen 10 Creatinine 0.79 Estimat Glomerular Filtration 106 Rate Random Glucose 90 Calcium Level 8.1 Total Bilirubin 1.7 Aspartate Amino Transf 36 (AST/SGOT) Alanine Aminotransferase 14 (ALT/SGPT) Alkaline Phosphatase 71 Total Protein 7.4 Albumin 3.7 Blood Type AB POSITIVE Antibody Screen NEGATIVE Crossmatch Leukocyte-Reduced Red Blood Cells Blood Bank Comment Date/Time Procedure Status Source Growth 04/07/17 02:45 Aerobic Blood Culture Received Blood Line Pending 04/07/17 02:45 Anaerobic Blood Culture Received Blood Line Pending Result Diagram: 04/07/17 0145 04/07/17144 Imaging Last Impressions Chest X-Ray 04/07/17141 Signed Impressions: Service Date/Time: Friday, April 07, 2017 01:41 - CONCLUSION: No acute disease. Rebel Cotto MD Assessment and Plan Assessment and Plan 26-year-old female with a past medical history significant for sickle cell disease, asthma and CHF who presents to [facility] ED with complaints of a sickle cell pain crisis in her back, arms and legs ongoing for the past 2 days. Sickle cell crisis Supplemental oxygen Pain management Benadryl by mouth for itching Resume home dose of folic acid and Hydroxyurea Sickle cell anemia Hemoglobin 6.4 Continuous cardiac monitoring Transfuse 2 units of PRBCs. Follow-up hemoglobin and hematocrit Leukocytosis Possibly situational/reactive White count 19.5 Patient does not appear septic at this time Patient has a low-grade temp 99.5 Obtain a lactic acid level Follow-up on blood culture results CXR personally reviewed, shows no acute disease obtain urinalysis Hypokalemia Repletion given A.m. labs to monitor response CHF Echo done 12/21/16 showed mild to moderately reduced EF 40-45% and diffuse hypokinesis Monitor for fluid overload Heart healthy diet with fluid restrictions Asthma, not in acute exacerbation DuoNeb's when necessary DVT prophylaxis Bilateral SCD/ADRIEL hose Discussed Condition With Patient and Dr. Shook Attending Statement 26-year-old female with past medical history congestive heart failure with EF of 40% and sickle cell anemia who presented with sickle cell pain crisis in her back, arms and legs ongoing for the past 2 days. She stated this is her typical crisis. During the interview patient asked to be on IV Benadryl since she got it on previous admission. She also asked to be on a regular diet. She had no other complaints. Gen. no acute distress CV irregular rate and rhythm no rubs murmurs or gallops Abdomen soft nondistended nontender Extremity joints show no erythema or swelling or warmth. Sickle cell crisis May be exacerbated secondary to her menses. Status post transfusion will get a post transfusion. Continue with supportive care. The exam, history, and the medical decision-making described in the above note were completed with the assistance of the mid-level provider. I reviewed and agree with the findings presented. I attest that I had a [id number] encounter with the patient on the same day, and personally performed and documented my assessment and findings in the medical record. Kirsten Noland Apr 07, 2017 09:22 Shobha Shook MD Apr 07, 2017 15:54
[2017-04-07] MEDS ORDERED: RESP: ALBUTEROL 2.5 MG/IPRATROPIUM 0.5 MG NEB (PRN) NEB (09:30)
[2017-04-07] MEDS ORDERED: ACETAMINOPHEN/HYDROcodone 325 MG/10 MG TAB PO PRN (09:30)
[2017-04-07 14:49] LABS: HEMATOCRIT 25.3 % (35.0-46.0); REVIEW FLAG FINAL
[2017-04-07] MEDS: diphenhydrAMINE HCL 25 MG CAP PO PRN (21:06)
[2017-04-07] MEDS: ONDANSETRON HCL 4 MG/2 ML VIAL IV PUSH PRN (23:50)
[2017-04-08] VITALS (12 sets, daily range): BP systolic 103–120; BP diastolic 57–79; PULSE 70–79; RESP 16–18; TEMP 97–98.9; O2SAT 94–99
[2017-04-08] MEDS: HYDROmorphone HCL PF 1 MG/ML VIAL IV PUSH PRN ×7 (03:37→22:09)
[2017-04-08] MEDS: diphenhydrAMINE HCL 25 MG CAP PO PRN ×4 (03:40→22:06)
[2017-04-08 06:55] LABS: AUTOMATED NEUTROPHIL # 15.6 TH/MM3 (1.8-7.7); BASOPHIL # 0.2 TH/MM3 (0-0.2); BASOPHIL % 1.1 % (0.0-2.0); EOSINOPHIL # 0.6 TH/MM3 (0-0.4); EOSINOPHIL % 2.8 % (0.0-4.0); HEMATOCRIT 25.1 % (35.0-46.0); HEMO FLAGS DIFF FINAL; LYMPH % 9.9 % (9.0-44.0); MEAN CELL VOLUME 86.5 FL (80.0-100.0); MEAN CORPUSCULAR HEMOGLOBIN 30.6 PG (27.0-34.0); MEAN CORPUSCULAR HGB CONC 35.3 % (32.0-36.0); MONO % 9.4 % (0.0-8.0); NEUT % 76.8 % (16.0-70.0); PLATELET COUNT 453 TH/MM3 (150-450); RED CELL DISTRIBUTION WIDTH 16.2 % (11.6-17.2); WHITE BLOOD COUNT 20.3 TH/MM3 (4.0-11.0)
[2017-04-08 07:14] LABS: BICARBONATE 25.8 MEQ/L (21.0-32.0); POTASSIUM 3.4 MEQ/L (3.5-5.1)
--- NOTE | 2017-04-08 09:46 | HHI.PR ---
Subjective Remarks Follow-up first sickle cell crisis Patient had no complaints. She stated that she continues have pain but that has improved. Patient was upset that I did not change her diet to regular diet. I explained to patient that she has congestive heart failure and I do have to be cautious with her diet I did not put her in an exacerbation. 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 Fuentes and that no one will see her anymore.. Objective Vitals Vital Signs Date Time Temp Pulse Resp B/P Pulse Ox O2 Delivery O2 Flow Rate FiO2 04/08/17 08:00 98.0 76 16 103/58 97 04/08/17 04:01 74 04/08/17 04:00 97.0 79 18 113/70 94 04/08/17 01:21 76 04/08/17 00:00 97.3 79 18 116/67 99 04/07/17 20:00 98.1 80 17 135/71 95 04/07/17 18:53 98.0 79 18 113/52 92 04/07/17 12:15 98.1 77 18 119/66 98 04/07/17 11:38 98.7 73 18 106/69 94 04/07/17 10:47 98.2 90 17 111/61 96 04/07/17 10:10 97.9 78 17 127/78 98 I/O 04/07/17 04/07/17 04/07/17 04/08/17 04/08/17 04/08/17 07:00 15:00 23:00 07:00 15:00 23:00 Intake Total 700 ml 240 ml Output Total 1300 ml 350 ml Balance -600 ml -110 ml Intake Oral 700 ml 240 ml Output Urine Total 1300 ml Stool Total 0 ml Emesis 350 ml # Voids 5 2 Result Diagram: 04/08/1752404/08/17524 Objective Remarks GENERAL: in NAD CARDIOVASCULAR: Regular rate and rhythm without murmurs, gallops, or rubs. RESPIRATORY: Breath sounds equal bilaterally. No accessory muscle use. GASTROINTESTINAL: Abdomen soft, non-tender, nondistended. MUSCULOSKELETAL: No cyanosis, or edema. BACK: Nontender without obvious deformity. No CVA tenderness. Medications and IVs Current Medications Sodium Chloride 2 ml 2 ml UNSCH PRN IVF FLUSH AFTER USING IV ACCESS Last administered on 04/07/17 02:04; Start 04/07/17 at 01:45 Sodium Chloride (NS 1000 ml Inj) 1,000 ml @ 1,000 mls/hr Q1H ONCE IV Last administered on 04/07/17 02:03; Start 04/07/17 at 01:42; Stop 04/07/17 at 02:41; Status DC Hydromorphone HCl (Dilaudid Pf Inj) 1 mg ONCE ONCE IVS Last administered on 02:02; Start 04/07/17 at 01:45; Stop 04/07/17 at 01:46; Status DC Hydromorphone HCl 1 mg 1 mg ONCE ONCE IV PUSH Last administered on 04/07/17 03 :05; Start 04/07/17 at 02:45; Stop 04/07/17 at 02:46; Status DC Sodium Chloride (NS 250 ml Inj) 250 ml @ 15 mls/hr ONCE ONCE IV Last administered on 04/07/17 05:51; Start 04/07/17 at 02:45; Stop 04/07/17 at 19:24; Status DC Potassium Chloride (KCl) 40 meq ONCE ONCE PO Last administered on 04/07/17 03: 38; Start 04/07/17 at 03:15; Stop 04/07/17 at 03:16; Status DC Sodium Chloride (NS Flush) 2 ml UNSCH PRN IV FLUSH FLUSH AFTER USING IV ACCESS ; Start 04/07/17 at 03:45 Sodium Chloride (NS Flush) 2 ml BID IV FLUSH Last administered on 04/07/17 21: 08; Start 04/07/17 at 09:00 Naloxone HCl (Narcan Inj) 0.4 mg UNSCH PRN IV SEE LABEL COMMENTS; Start at 03:45 Hydromorphone HCl (Dilaudid Pf Inj) 0.2 mg Q3H PRN IV PUSH pain >5 Last administered on 04/08/17 06:26; Start 04/07/17 at 03:45 Furosemide (Lasix Inj) 20 mg UNSCH IV PUSH Last administered on 04/07/17 09:25 ; Start 04/07/17 at 03:45; Stop 04/08/17 at 03:44; Status DC Ondansetron HCl (Zofran Inj) 4 mg ONCE ONCE IV PUSH Last administered on 04:14; Start 04/07/17 at 04:15; Stop 04/07/17 at 04:16; Status DC Diphenhydramine HCl (Benadryl) 25 mg Q6H PRN PO ITCHING Last administered on 03:40; Start 04/07/17 at 09:30 Folic Acid (Folate) 1 mg DAILY PO ; Start 04/08/17 at 09:00 Acetaminophen/ Hydrocodone Bitart ([place] 10-325 Mg) 1 tab Q6H PRN PO PAIN 1-5; Start 04/07/17 at 09:30 Hydroxyurea (Hydrea) 500 mg DAILY PO ; Start 04/08/17 at 09:00 Albuterol/ Ipratropium (Duoneb Neb) 1 ampule Q6HR NEB PRN NEB SOB, COUGH, WHEEZING; Start 04/07/17 at 09:30 Ondansetron HCl (Zofran Inj) 4 mg Q6HR PRN IV PUSH nausea Last administered on 04/07/17 23:50; Start 04/07/17 at 22:00 A/P Assessment and Plan 26-year-old female with a past medical history significant for sickle cell disease, asthma and CHF who presents to [facility] ED with complaints of a sickle cell pain crisis in her back, arms and legs ongoing for the past 2 days. Sickle cell crisis Supplemental oxygen Pain management and pain is improving. Benadryl by mouth for itching Continue folic acid and Hydroxyurea Sickle cell anemia Hemoglobin 6.4 status post 2 units of packed red blood cells with appropriate response to transfusion. Continue to trend H&H. Leukocytosis Possibly situational/reactive White count 19.5 with a mild increased today. Clinically patient is improving. Continue to monitor. So far blood cultures are negative. Chest x-ray is negative. UA was ordered and has not been obtained yet. We'll put another order order for the nurse to obtain UA. Hypokalemia Replete as needed. CHF Echo done 12/21/16 showed mild to moderately reduced EF 40-45% and diffuse hypokinesis Monitor for fluid overload Heart healthy diet with fluid restrictions Asthma, not in acute exacerbation DuoNeb's when necessary DVT prophylaxis Bilateral SCD/ADRIEL Shobha Yen MD Apr 08, 2017 09:46
[2017-04-08] MEDS: FOLIC ACID 1 MG TAB PO SCH (09:56)
[2017-04-08] MEDS ORDERED: POTASSIUM CHLORIDE 20 MEQ CONTROLLED RELEASE TAB PO ONE (10:00)
[2017-04-08] MEDS: HYDROXYUREA 500 MG CAP PO SCH (10:04)
[2017-04-08] MEDS: SODIUM CHLORIDE 0.9% FLUSH 10 ML FLUSH IV FLUSH SCH ×2 (12:47→22:20)
[2017-04-08] MEDS ORDERED: VANCOMYCIN INJ 1,000 MG in SODIUM CHLOR 0.9% 250 ML INJ 250 ML IV ONE (19:15)
[2017-04-08] MEDS ORDERED: Vancomycin Consult Pharmacy 1 EA OTHER SCH (19:15)
[2017-04-08] MEDS: VANCOMYCIN INJ 1,250 MG in SODIUM CHLOR 0.9% 250 ML INJ 250 ML IV SCH (22:20)
[2017-04-08] MEDS: ONDANSETRON HCL 4 MG/2 ML VIAL IV PUSH PRN (22:24)
[2017-04-09] VITALS (10 sets, daily range): BP systolic 94–111; BP diastolic 54–78; PULSE 68–84; RESP 17–18; TEMP 97.6–98.7; O2SAT 94–100
[2017-04-09 00:15] LABS: BACTERIA, URINE RARE /hpf; BLOOD, URINE NEG (NEG); COMMENT (UR) CULT NOT INDICATED; CULTURE IF INDICATED CULT NOT INDICATED; GLUCOSE,URINE NEG (NEG); KETONE, URINE NEG (NEG); NITRITE,URINE NEG (NEG); SQUAMOUS EPITHELIAL CELL URINE <1 /hpf (0-5); URINE COLOR YELLOW (YELLW/STRAW)
[2017-04-09] MEDS: HYDROmorphone HCL PF 1 MG/ML VIAL IV PUSH PRN ×8 (00:55→21:45)
[2017-04-09] MEDS: diphenhydrAMINE HCL 25 MG CAP PO PRN ×4 (03:45→21:45)
[2017-04-09 08:21] LABS: HEMATOCRIT 25.3 % (35.0-46.0); MEAN CELL VOLUME 88.6 FL (80.0-100.0); MEAN CORPUSCULAR HEMOGLOBIN 30.3 PG (27.0-34.0); MEAN CORPUSCULAR HGB CONC 34.2 % (32.0-36.0); PLATELET COUNT 475 TH/MM3 (150-450); RED BLOOD COUNT 2.85 MIL/MM3 (4.00-5.30); RED CELL DISTRIBUTION WIDTH 16.4 % (11.6-17.2); REVIEW FLAG FINAL; WHITE BLOOD COUNT 14.9 TH/MM3 (4.0-11.0)
[2017-04-09 08:41] LABS: BICARBONATE 25.4 MEQ/L (21.0-32.0); POTASSIUM 3.5 MEQ/L (3.5-5.1)
[2017-04-09] MEDS: FOLIC ACID 1 MG TAB PO SCH (09:29)
[2017-04-09] MEDS: HYDROXYUREA 500 MG CAP PO SCH (09:30)
[2017-04-09] MEDS: SODIUM CHLORIDE 0.9% FLUSH 10 ML FLUSH IV FLUSH SCH ×2 (09:32→21:45)
[2017-04-09] MEDS: VANCOMYCIN INJ 1,250 MG in SODIUM CHLOR 0.9% 250 ML INJ 250 ML IV SCH ×2 (09:36→21:47)
--- NOTE | 2017-04-09 10:06 | HHI.PR ---
Subjective Remarks Follow-up for bacteremia and sickle cell crisis Patient no complaints. She stated that her pain is improving. She remains afebrile. Patient blood cultures are positive yesterday. Repeat blood cultures were ordered but has not been done yet. Patient also has not had her morning labs drawn yet. Objective Vitals Vital Signs Date Time Temp Pulse Resp B/P Pulse Ox O2 Delivery O2 Flow Rate FiO2 04/09/17 08:00 98.0 78 18 108/55 97 04/09/17 04:00 97.9 79 17 107/55 97 04/09/17 04:00 72 04/09/17 00:00 84 04/09/17 00:00 97.6 78 17 111/68 100 04/08/17 21:45 78 04/08/17 20:00 98.9 75 17 105/57 98 04/08/17 17:49 95 21 04/08/17 16:00 97.8 79 16 107/63 95 04/08/17 12:00 97.4 70 18 120/79 98 04/08/17 10:26 18 04/08/17 10:16 95 21 I/O 04/08/17 04/08/17 04/08/17 04/09/17 04/09/17 04/09/17 07:00 15:00 23:00 07:00 15:00 23:00 Intake Total 240 ml 1280 ml 240 ml Output Total 350 ml Balance -110 ml 1280 ml 240 ml Intake Oral 240 ml 1280 ml 240 ml Emesis 350 ml # Voids 2 2 # Bowel Movements 0 Result Diagram: 04/09/17 0545 04/09/17 0545 Objective Remarks GENERAL: in NAD CARDIOVASCULAR: Regular rate and rhythm without murmurs, gallops, or rubs. Port dry clean and intact. RESPIRATORY: Breath sounds equal bilaterally. No accessory muscle use. GASTROINTESTINAL: Abdomen soft, non-tender, nondistended. MUSCULOSKELETAL: No cyanosis, or edema. BACK: Nontender without obvious deformity. No CVA tenderness. Medications and IVs Current Medications Sodium Chloride 2 ml 2 ml UNSCH PRN IVF FLUSH AFTER USING IV ACCESS Last administered on 04/07/17t 02:04; Start 04/07/17 at 01:45 Sodium Chloride (NS 1000 ml Inj) 1,000 ml @ 1,000 mls/hr Q1H ONCE IV Last administered on 04/07/17 02:03; Start 04/07/17 at 01:42; Stop 04/07/17 at 02:41; Status DC Hydromorphone HCl (Dilaudid Pf Inj) 1 mg ONCE ONCE IVS Last administered on 02:02; Start 04/07/17 at 01:45; Stop 04/07/17 at 01:46; Status DC Hydromorphone HCl 1 mg 1 mg ONCE ONCE IV PUSH Last administered on 04/07/17 03 :05; Start 04/07/17 at 02:45; Stop 04/07/17 at 02:46; Status DC Sodium Chloride (NS 250 ml Inj) 250 ml @ 15 mls/hr ONCE ONCE IV Last administered on 04/07/17 05:51; Start 04/07/17 at 02:45; Stop 04/07/17 at 19:24; Status DC Potassium Chloride (KCl) 40 meq ONCE ONCE PO Last administered on 04/07/17 03: 38; Start 04/07/17 at 03:15; Stop 04/07/17 at 03:16; Status DC Sodium Chloride (NS Flush) 2 ml UNSCH PRN IV FLUSH FLUSH AFTER USING IV ACCESS ; Start 04/07/17 at 03:45 Sodium Chloride (NS Flush) 2 ml BID IV FLUSH Last administered on 04/09/17 09: 32; Start 04/07/17 at 09:00 Naloxone HCl (Narcan Inj) 0.4 mg UNSCH PRN IV SEE LABEL COMMENTS; Start at 03:45 Hydromorphone HCl (Dilaudid Pf Inj) 0.2 mg Q3H PRN IV PUSH pain >5 Last administered on 04/09/17 09:29; Start 04/07/17 at 03:45 Furosemide (Lasix Inj) 20 mg UNSCH IV PUSH Last administered on 04/07/17 09:25 ; Start 04/07/17 at 03:45; Stop 04/08/17 at 03:44; Status DC Ondansetron HCl (Zofran Inj) 4 mg ONCE ONCE IV PUSH Last administered on 04:14; Start 04/07/17 at 04:15; Stop 04/07/17 at 04:16; Status DC Diphenhydramine HCl (Benadryl) 25 mg Q6H PRN PO ITCHING Last administered on 09:29; Start 04/07/17 at 09:30 Folic Acid (Folate) 1 mg DAILY PO Last administered on 04/09/17 09:29; Start 04/08/17 at 09:00 Acetaminophen/ Hydrocodone Bitart ([place] 10-325 Mg) 1 tab Q6H PRN PO PAIN 1-5; Start 04/07/17 at 09:30 Hydroxyurea (Hydrea) 500 mg DAILY PO Last administered on 04/09/17 09:30; Start 04/08/17 at 09:00 Albuterol/ Ipratropium (Duoneb Neb) 1 ampule Q6HR NEB PRN NEB SOB, COUGH, WHEEZING; Start 04/07/17 at 09:30 Ondansetron HCl (Zofran Inj) 4 mg Q6HR PRN IV PUSH nausea Last administered on 04/08/17 22:24; Start 04/07/17 at 22:00 Potassium Chloride 20 meq 20 meq ONCE ONCE PO Last administered on 04/08/17 12 :45; Start 04/08/17 at 10:00; Stop 04/08/17 at 10:01; Status DC Vancomycin HCl 1000 mg/Sodium Chloride 250 ml @ 250 mls/hr ONCE ONCE IV ; Start 04/08/17 at 19:15; Stop 04/08/17 at 20:14; Status UNV Pharmacy Profile Note 0 ml @ 0 mls/hr UNSCH OTHER ; Start 04/08/17 at 19:15 Vancomycin HCl/ Sodium Chloride (Vancomycin Inj/ NS 250 ml Inj) 262.5 ml @ 250 mls/hr Q12H IV Last administered on 04/09/17 09:36; Start 04/08/17 at 22:00 Miscellaneous Information SPECIFIC LAB TO BE ... ONCE ONCE .XX ; Start 04/10 at 09:45; Stop 04/10/17 at 09:46 A/P Assessment and Plan 26-year-old female with a past medical history significant for sickle cell disease, asthma and CHF who presents to [facility] ED with complaints of a sickle cell pain crisis in her back, arms and legs ongoing for the past 2 days. Sickle cell crisis Supplemental oxygen Pain management and pain is improving. Benadryl by mouth for itching Continue folic acid and Hydroxyurea Sickle cell anemia Hemoglobin 6.4 status post 2 units of packed red blood cells with appropriate response to transfusion. Continue to trend H&H. Leukocytosis Possibly situational/reactive Labs have not been drawn yet. Order placed to draw her labs. Clinically patient is doing well. Chest x-ray and UA is negative. Blood cultures positive for gram-positive cocci 1 growing staphylococcus epidermitis Bacteremia with 1/4Staphylococcus epidermidis/3/4 gram-positive cocci -Patient started on vancomycin. Consulted infectious disease. Hypokalemia Replete as needed. CHF Echo done 12/21/16 showed mild to moderately reduced EF 40-45% and diffuse hypokinesis Monitor for fluid overload Heart healthy diet with fluid restrictions Asthma, not in acute exacerbation DuoNeb's when necessary DVT prophylaxis Bilateral SCD/ADRIEL Shobha Yen MD Apr 09, 2017 10:05
--- NOTE | 2017-04-09 17:22 | PD.ID.CON ---
History of Present Illness Service ID Consult Requested By Dr Saba Reason for Consult bactermia Primary Care Physician No Primary Care Physician Diagnoses: History of Present Illness 26 yo female with sickle cell diseas and R sided PORT placed 3 yrs ago Pt is well known to our servic form previous episodes of PORT infections She was seen few mos ago by Dr Monte for recurrent Enterococcal bacteremia, very suspicious for port infection She was discahged on PCN which she completed on January 15 She was doing fine since then and denies any fevers, chils or problems with the PORT Pt was admitted yday after she presented with pains " all over" typical for her SCD crisis She is not sure what triggered her crisis Denies any othe rproblems Review of Systems ROS Limitations: Uncooperative Except as stated in HPI: all other systems reviewed are Neg Past Family Social History Allergies: Coded Allergies: Percocet (Verified Adverse Reaction, Severe, Nausea/Vomiting, 04/07/17) AND ITCHING *MDRO Multi-Drug Resistant Organism (Verified Adverse Reaction, Unknown, Cleared 02/08/15, 04/07/17) MRSA (Chest Wound) - 02/2012 MRSA PCR Screen negative 02/06/15 and 02/08/15. Cleared per Infection Control Past Medical History Sickle cell Asthma Congestive heart failure Port infection Past Surgical History [id number] insertion and removal 2, last placement 2014 Cholecystectomy Active Ordered Medications Medications where reviewed in EMR Antibiotics Include: vancomycin Family History sickle cell dz and diabetes Social History Reports occasional alcohol use Denies tobacco use Denies illicit drug use Physical Exam Vital Signs Vital Signs Date Time Temp Pulse Resp B/P Pulse Ox O2 Delivery O2 Flow Rate FiO2 04/09/17 16:00 98.0 68 18 94/54 94 04/09/17 12:00 98.4 78 18 101/59 96 04/09/17 11:08 98 04/09/17 08:00 98.0 78 18 108/55 97 04/09/17 04:00 97.9 79 17 107/55 97 04/09/17 04:00 72 04/09/17 00:00 84 04/09/17 00:00 97.6 78 17 111/68 100 04/08/17 21:45 78 04/08/17 20:00 98.9 75 17 105/57 98 04/08/17 17:49 95 21 Physical Exam CONSTITUTIONAL/GENERAL: This is an adequately nourished patient, in no apparent distress. TUBES/LINES/DRAINS: PORT in plce R chest, no e/o infection SKIN: No jaundice, rashes, or lesions. . Skin temperature appropriate. Not diaphoretic. HEAD: Atraumatic. Normocephalic. EYES: Pupils equal and round and reactive. Extraocular motions intact. No scleral icterus. No injection or drainage. Fundi not examined. ENT: Hearing grossly normal. Nose without bleeding or purulent drainage. Throat without visible erythema, exudates, masses, or lesions. NECK: Trachea midline. Supple, nontender. CARDIOVASCULAR: Regular rate and rhythm without murmurs, gallops, or rubs. No JVD. Peripheral pulses symmetric. RESPIRATORY/CHEST: Symmetric, unlabored respirations. Clear to auscultation. Breath sounds equal bilaterally. No wheezes, rales, or rhonchi. GASTROINTESTINAL: Abdomen soft, non-tender, nondistended. No hepato-splenomegaly , or palpable masses. No guarding. Bowel sounds present. MUSCULOSKELETAL: Extremities without clubbing, cyanosis, or edema. No joint tenderness or effusion noted. No calf tenderness. No mottling or clubbing. LYMPHATICS: No palpable cervical or supraclavicular adenopathy. NEUROLOGICAL: Awake and alert. Motor and sensory grossly within normal limits. Follows commands. Clear speech. Moves all extremities. PSYCHIATRIC: No obvious anxiety/depression. no apparent hallucinations or other psychotic thought process. Irritable and not cooperative, wants to be left alone Laboratory Laboratory Tests Test 04/09/17 05:45 White Blood Count 14.9 Red Blood Count 2.85 Hemoglobin 8.6 Hematocrit 25.3 Mean Corpuscular Volume 88.6 Mean Corpuscular Hemoglobin 30.3 Mean Corpuscular Hemoglobin 34.2 Concent Red Cell Distribution Width 16.4 Platelet Count 475 Mean Platelet Volume 7.9 Sodium Level 141 Potassium Level 3.5 Chloride Level 108 Carbon Dioxide Level 25.4 Anion Gap 8 Blood Urea Nitrogen 9 Creatinine 0.66 Estimat Glomerular Filtration 130 Rate Random Glucose 87 Calcium Level 8.8 Date/Time Procedure Status Source Growth 04/09/17 10:56 Aerobic Blood Culture Received Blood Peripheral Pending 04/09/17 10:56 Anaerobic Blood Culture Received Blood Peripheral Pending 04/07/17 02:45 Aerobic Blood Culture - Preliminary Resulted Blood Line Staphylococcus Epidermidis 04/07/17 02:45 Anaerobic Blood Culture - Final Resulted Staph Sp Coagulase Negative Result Diagram: 04/09/17 0545 04/09/17 0545 Imaging Last Impressions Chest X-Ray 04/07/17 0142 Signed Impressions: Service Date/Time: Friday, April 07, 2017 01:41 - CONCLUSION: No acute disease. Rebel Cotto MD Assessment and Plan Assessment and Plan Sickle cell disease crisis Recerrent PORT infections Coagulase - negative bacteremia - ? PORT infection vs contaminated blood clx (lss likely givn high grade bacteremia with early time to positivity) - no fever, documented or self-reported REcemmendations: - will cont vancomycin for now - follow up blood clx untill final - coagulase negative staph PORT infections NOT require port removal unless conservative treatment fails Discussed Condition With Zaria Carlos MD Apr 09, 2017 17:22
[2017-04-10] VITALS (7 sets, daily range): BP systolic 109–119; BP diastolic 55–72; PULSE 71–90; RESP 16–18; TEMP 97.4–99; O2SAT 93–100
[2017-04-10] MEDS: HYDROmorphone HCL PF 1 MG/ML VIAL IV PUSH PRN ×8 (00:48→21:52)
[2017-04-10] MEDS: diphenhydrAMINE HCL 25 MG CAP PO PRN ×4 (03:50→21:50)
[2017-04-10] MEDS ORDERED: PHARMACY ORDERED LAB ONE (09:45)
[2017-04-10] MEDS: FOLIC ACID 1 MG TAB PO SCH (09:49)
[2017-04-10] MEDS: SODIUM CHLORIDE 0.9% FLUSH 10 ML FLUSH IV FLUSH SCH ×2 (09:49→12:50)
[2017-04-10] MEDS: HYDROXYUREA 500 MG CAP PO SCH (10:07)
[2017-04-10 11:07] LABS: BICARBONATE 26.5 MEQ/L (21.0-32.0); POTASSIUM 3.7 MEQ/L (3.5-5.1)
--- NOTE | 2017-04-10 11:14 | HHI.IDPN ---
Subjective Subjective Remarks no fever feels OK, ecept for pain BC all grew out Staph epi with similar sensitivities Antibiotics vancomycin Allergies: Coded Allergies: Percocet (Verified Adverse Reaction, Severe, Nausea/Vomiting, 04/07/17) AND ITCHING *MDRO Multi-Drug Resistant Organism (Verified Adverse Reaction, Unknown, Cleared 02/08/15, 04/07/17) MRSA (Chest Wound) - 02/2012 MRSA PCR Screen negative 02/06/15 and 02/08/15. Cleared per Infection Control Objective . Vital Signs Date Time Temp Pulse Resp B/P Pulse Ox O2 Delivery O2 Flow Rate FiO2 04/10/17 08:00 97.4 76 18 110/58 99 04/10/17 07:30 20 04/10/17 04:00 97.8 81 17 118/60 97 04/10/17 00:00 97.4 71 18 110/55 93 04/09/17 21:00 71 04/09/17 20:00 98.7 72 17 103/58 100 04/09/17 18:45 102/78 04/09/17 18:33 75 04/09/17 16:00 98.0 68 18 94/54 94 04/09/17 12:00 98.4 78 18 101/59 96 04/09/17 04/09/17 04/10/17 15:00 23:00 07:00 Intake Total 1440 ml 600 ml Balance 1440 ml 600 ml Intake Oral 1440 ml 600 ml # Voids 4 3 # Bowel Movements 1 . Laboratory Tests Test 04/09/17 05:45 White Blood Count 14.9 TH/MM3 Red Blood Count 2.85 MIL/MM3 Hemoglobin 8.6 GM/DL Hematocrit 25.3 % Mean Corpuscular Volume 88.6 FL Mean Corpuscular Hemoglobin 30.3 PG Mean Corpuscular Hemoglobin 34.2 % Concent Red Cell Distribution Width 16.4 % Platelet Count 475 TH/MM3 Mean Platelet Volume 7.9 FL Laboratory Tests Test 04/09/17 05:45 Sodium Level 141 MEQ/L Potassium Level 3.5 MEQ/L Chloride Level 108 MEQ/L Carbon Dioxide Level 25.4 MEQ/L Anion Gap 8 MEQ/L Blood Urea Nitrogen 9 MG/DL Creatinine 0.66 MG/DL Estimat Glomerular Filtration 130 ML/MIN Rate Random Glucose 87 MG/DL Calcium Level 8.8 MG/DL Microbiology Date/Time Procedure Status Source Growth 04/09/17 10:50 Aerobic Blood Culture Received Blood Peripheral Pending 04/09/17 10:50 Anaerobic Blood Culture Received Blood Peripheral Pending 04/09/17 10:56 Aerobic Blood Culture Received Blood Peripheral Pending 04/09/17 10:56 Anaerobic Blood Culture Received Blood Peripheral Pending Imaging Last Impressions Chest X-Ray 04/07/17 0142 Signed Impressions: Service Date/Time: Friday, April 07, 2017 01:41 - CONCLUSION: No acute disease. Rebel Cotto MD Physical Exam CONSTITUTIONAL/GENERAL: This is an adequately nourished patient, in no apparent distress. TUBES/LINES/DRAINS: PORT in plce R chest, no e/o infection SKIN: No jaundice, rashes, or lesions. . EYES: Pupils equal and round and reactive. Extraocular motions intact. No scleral icterus. CARDIOVASCULAR: Regular rate and rhythm without murmurs, gallops, or rubs. No JVD. Peripheral pulses symmetric. RESPIRATORY/CHEST: Symmetric, unlabored respirations. Clear to auscultation. Breath sounds equal bilaterally. No wheezes, rales, or rhonchi. GASTROINTESTINAL: Abdomen soft, non-tender, nondistended. No hepato-splenomegaly , or palpable masses. No guarding. Bowel sounds present. MUSCULOSKELETAL: Extremities without clubbing, cyanosis, or edema. No joint tenderness or effusion noted. No calf tenderness. No mottling or clubbing. NEUROLOGICAL: Awake and alert. Motor and sensory grossly within normal limits. Follows commands. Clear speech. Moves all extremities. PSYCHIATRIC: calm. Assessment & Plan Remarks Sickle cell disease crisis Recurrent PORT infections Staph epidermitis high grade bacterimia, mostly cw PORT infx REcemmendations: - will cont vancomycin for 2 weeks from 1st neg blood clx and retain PORT - follow up repeat P blood clx - coagulase negative staph PORT infections NOT require port removal unless conservative treatment fails Zaria Junior MD Apr 10, 2017 11:13
[2017-04-10] MEDS: VANCOMYCIN INJ 1,250 MG in SODIUM CHLOR 0.9% 250 ML INJ 250 ML IV SCH ×2 (11:30→21:53)
[2017-04-10 13:37] LABS: AUTOMATED NEUTROPHIL # 8.1 TH/MM3 (1.8-7.7); BASOPHIL # 0.2 TH/MM3 (0-0.2); BASOPHIL % 1.4 % (0.0-2.0); EOSINOPHIL # 0.6 TH/MM3 (0-0.4); EOSINOPHIL % 4.9 % (0.0-4.0); HEMATOCRIT 24.9 % (35.0-46.0); HEMO FLAGS DIFF FINAL; LYMPHOCYTE # 1.8 TH/MM3 (1.0-4.8); MEAN CELL VOLUME 89.2 FL (80.0-100.0); MEAN CORPUSCULAR HEMOGLOBIN 29.8 PG (27.0-34.0); MEAN CORPUSCULAR HGB CONC 33.4 % (32.0-36.0); MONO % 10.1 % (0.0-8.0); NEUT % 68.6 % (16.0-70.0); PLATELET COUNT 442 TH/MM3 (150-450); RED BLOOD COUNT 2.79 MIL/MM3 (4.00-5.30); RED CELL DISTRIBUTION WIDTH 15.4 % (11.6-17.2); WHITE BLOOD COUNT 11.8 TH/MM3 (4.0-11.0)
--- NOTE | 2017-04-10 15:06 | HHI.PR ---
Subjective Remarks Follow-up sickle cell pain crisis, bacteremia. Patient states that her pain is improving. No dyspnea, nausea, vomiting. Pain is still "all over". Objective Vitals Vital Signs Date Time Temp Pulse Resp B/P Pulse Ox O2 Delivery O2 Flow Rate FiO2 04/10/17 12:00 98.0 78 18 116/63 99 04/10/17 08:00 97.4 76 18 110/58 99 04/10/17 07:30 20 04/10/17 04:00 97.8 81 17 118/60 97 04/10/17 00:00 97.4 71 18 110/55 93 04/09/17 21:00 71 04/09/17 20:00 98.7 72 17 103/58 100 04/09/17 18:45 102/78 04/09/17 18:33 75 04/09/17 16:00 98.0 68 18 94/54 94 I/O 04/09/17 04/09/17 04/09/17 04/10/17 04/10/17 04/10/17 06:59 14:59 22:59 06:59 14:59 22:59 Intake Total 1440 ml 600 ml Balance 1440 ml 600 ml Intake Oral 1440 ml 600 ml # Voids 4 3 # Bowel Movements 1 Result Diagram: 04/10/17 1200 04/10/17 0950 Imaging Last Impressions Chest X-Ray 04/07/17 0142 Signed Impressions: Service Date/Time: Friday, April 07, 2017 01:41 - CONCLUSION: No acute disease. Rebel Cotto MD Objective Remarks Patient examined in the presence of the nurse. General: No acute distress. Heart: Regular rate and rhythm. No murmur. Lungs: Clear to auscultation bilaterally. No wheezes, rales, or rhonchi. Breathing is nonlabored. Abdomen: Soft, nontender, nondistended. Extremities: No lower extremity edema. Psych: Alert and oriented. Procedures None Urinary Catheter: No Vascular Central Line Catheter: No A/P Problem List: (1) Sickle cell crisis ICD Code: D57.00 Status: Acute (2) Bacteremia ICD Code: R78.81 Status: Acute (3) Anemia ICD Code: D64.9 Status: Chronic (4) Cardiomyopathy ICD Code: I42.9 Status: Chronic Assessment and Plan 1. Sickle cell pain crisis: Continue pain medication. Benadryl as needed for itching. Continue folic acid, hydroxyurea. Monitor H&H. 2. Anemia: Hemoglobin improved following transfusion. 3. Chronic systolic congestive heart failure, cardiomyopathy: Echocardiogram showed EF 40-45% with diffuse hypokinesis. Fluid restriction, sodium restriction. 4. Bacteremia: Appreciate infectious disease recommendations. Continue vancomycin. Repeat blood cultures are negative so far. 5. Asthma: Not in acute exacerbation. DuoNeb as needed. 6. Leukocytosis: May be secondary to infection. Follow labs. WBCs are trending down. 7. DVT prophylaxis: SCDs, ADRIEL tillman. Problem Qualifiers (1) Anemia: Qualified Code: D64.9 - Anemia, unspecified type Hermilo Espinosa MD Apr 10, 2017 15:06
[2017-04-11] VITALS (11 sets, daily range): BP systolic 98–120; BP diastolic 53–75; PULSE 71–82; RESP 14–17; TEMP 96.4–99.7; O2SAT 96–100
[2017-04-11] MEDS: HYDROmorphone HCL PF 1 MG/ML VIAL IV PUSH PRN ×8 (00:56→22:29)
[2017-04-11] MEDS: diphenhydrAMINE HCL 25 MG CAP PO PRN ×4 (03:52→22:28)
[2017-04-11 05:45] LABS: AUTOMATED NEUTROPHIL # 7.3 TH/MM3 (1.8-7.7); BASOPHIL # 0.1 TH/MM3 (0-0.2); EOSINOPHIL # 0.6 TH/MM3 (0-0.4); EOSINOPHIL % 4.8 % (0.0-4.0); HEMATOCRIT 23.5 % (35.0-46.0); HEMO FLAGS DIFF FINAL; LYMPH % 27.5 % (9.0-44.0); LYMPHOCYTE # 3.6 TH/MM3 (1.0-4.8); MEAN CELL VOLUME 88.4 FL (80.0-100.0); MEAN CORPUSCULAR HEMOGLOBIN 30.7 PG (27.0-34.0); MEAN CORPUSCULAR HGB CONC 34.8 % (32.0-36.0); MONO % 10.7 % (0.0-8.0); PLATELET COUNT 415 TH/MM3 (150-450); RED BLOOD COUNT 2.66 MIL/MM3 (4.00-5.30); RED CELL DISTRIBUTION WIDTH 15.1 % (11.6-17.2)
[2017-04-11 06:03] LABS: BICARBONATE 26.8 MEQ/L (21.0-32.0); POTASSIUM 3.4 MEQ/L (3.5-5.1)
[2017-04-11] MEDS: FOLIC ACID 1 MG TAB PO SCH (10:18)
[2017-04-11] MEDS: SODIUM CHLORIDE 0.9% FLUSH 10 ML FLUSH IV FLUSH SCH ×2 (10:18→19:30)
[2017-04-11] MEDS: VANCOMYCIN INJ 1,250 MG in SODIUM CHLOR 0.9% 250 ML INJ 250 ML IV SCH ×2 (10:19→22:29)
[2017-04-11] MEDS: HYDROXYUREA 500 MG CAP PO SCH (10:26)
--- NOTE | 2017-04-11 15:31 | HHI.PR ---
Subjective Remarks Follow-up sickle cell pain crisis, bacteremia. The patient states that her pain is a little better today. Still reporting pain "all over". She is requesting a regular diet. Objective Vitals Vital Signs Date Time Temp Pulse Resp B/P Pulse Ox O2 Delivery O2 Flow Rate FiO2 04/11/17 12:00 96.4 78 14 112/57 100 04/11/17 10:16 74 120/75 04/11/17 08:00 97.6 71 16 98/53 96 04/11/17 07:20 19 04/11/17 04:00 98.0 82 17 109/68 97 04/11/17 00:00 98.7 77 17 107/61 96 04/10/17 21:00 90 04/10/17 20:00 99.0 84 17 109/64 97 04/10/17 16:00 98.4 80 16 119/72 100 I/O 04/10/17 04/10/17 04/10/17 04/11/17 04/11/17 04/11/17 07:00 15:00 23:00 07:00 15:00 23:00 Intake Total 600 ml 164 ml 1440 ml 840 ml 878 ml Output Total 3 ml Balance 600 ml 164 ml 1437 ml 840 ml 878 ml Intake Oral 600 ml 1440 ml 600 ml 878 ml IV Total 164 ml 240 ml Output Urine Total 3 ml # Voids 3 4 4 3 # Bowel Movements 2 0 Result Diagram: 04/11/17 0354 04/11/17 0354 Imaging Last Impressions Chest X-Ray 04/07/17 0142 Signed Impressions: Service Date/Time: Friday, April 07, 2017 01:41 - CONCLUSION: No acute disease. Rebel Cotto MD Objective Remarks Patient examined in the presence of the nurse. General: No acute distress. Heart: Regular rate and rhythm. No murmur. Lungs: Clear to auscultation bilaterally. No wheezes, rales, or rhonchi. Breathing is nonlabored. Abdomen: Soft, nontender, nondistended. Extremities: No lower extremity edema. Psych: Alert and oriented. Procedures None Urinary Catheter: No Vascular Central Line Catheter: No A/P Problem List: (1) Sickle cell crisis ICD Code: D57.00 Status: Acute (2) Bacteremia ICD Code: R78.81 Status: Acute (3) Anemia ICD Code: D64.9 Status: Chronic (4) Cardiomyopathy ICD Code: I42.9 Status: Chronic Assessment and Plan 1. Sickle cell pain crisis: Continue pain medication. Benadryl as needed for itching. Continue folic acid, hydroxyurea. Monitor H&H. 2. Anemia: Hemoglobin improved following transfusion. 3. Chronic systolic congestive heart failure, cardiomyopathy: Echocardiogram showed EF 40-45% with diffuse hypokinesis. Patient counseled regarding limiting fluid intake and sodium intake. 4. Bacteremia: Appreciate infectious disease recommendations. Continue vancomycin. Repeat blood cultures are negative so far. 5. Asthma: Not in acute exacerbation. DuoNeb as needed. 6. Leukocytosis: May be secondary to infection. Follow labs. 7. DVT prophylaxis: ADRIEL Stacy. Problem Qualifiers (1) Anemia: Qualified Code: D64.9 - Anemia, unspecified type Hermilo Espinosa MD Apr 11, 2017 15:31
[2017-04-12] VITALS (11 sets, daily range): BP systolic 102–125; BP diastolic 55–73; PULSE 69–85; RESP 14–16; TEMP 96.2–98.8; O2SAT 99–100
[2017-04-12] MEDS: HYDROmorphone HCL PF 1 MG/ML VIAL IV PUSH PRN ×7 (01:39→20:57)
[2017-04-12] MEDS: diphenhydrAMINE HCL 25 MG CAP PO PRN ×3 (04:40→17:56)
[2017-04-12 05:06] LABS: AUTOMATED NEUTROPHIL # 7.5 TH/MM3 (1.8-7.7); BASOPHIL # 0.4 TH/MM3 (0-0.2); BASOPHIL % 3.2 % (0.0-2.0); EOSINOPHIL # 0.7 TH/MM3 (0-0.4); EOSINOPHIL % 5.3 % (0.0-4.0); HEMATOCRIT 23.7 % (35.0-46.0); LYMPH % 21.6 % (9.0-44.0); LYMPHOCYTE # 2.8 TH/MM3 (1.0-4.8); MEAN CELL VOLUME 88.3 FL (80.0-100.0); MEAN CORPUSCULAR HEMOGLOBIN 30.5 PG (27.0-34.0); MEAN CORPUSCULAR HGB CONC 34.6 % (32.0-36.0); MONO % 12.3 % (0.0-8.0); NEUT % 57.6 % (16.0-70.0); PLATELET COUNT 403 TH/MM3 (150-450); RED BLOOD COUNT 2.69 MIL/MM3 (4.00-5.30); RED CELL DISTRIBUTION WIDTH 15.2 % (11.6-17.2); WHITE BLOOD COUNT 13.1 TH/MM3 (4.0-11.0)
[2017-04-12 05:11] LABS: HEMO FLAGS DIFF FINAL
[2017-04-12 05:29] LABS: BICARBONATE 24.9 MEQ/L (21.0-32.0); POTASSIUM 3.4 MEQ/L (3.5-5.1)
[2017-04-12] MEDS ORDERED: POTASSIUM CHLORIDE 10 MEQ CONTROLLED RELEASE TAB PO ONE (08:00)
[2017-04-12] MEDS: FOLIC ACID 1 MG TAB PO SCH (08:19)
[2017-04-12] MEDS: SODIUM CHLORIDE 0.9% FLUSH 10 ML FLUSH IV FLUSH SCH ×2 (08:20→21:02)
[2017-04-12] MEDS: HYDROXYUREA 500 MG CAP PO SCH (08:21)
--- NOTE | 2017-04-12 09:46 | HHI.PR ---
Subjective Remarks Follow-up sickle cell pain, bacteremia. The patient states that her pain is a little better today. She states that she feels tired. No other complaints at this time. Denies dyspnea, chest pain. Objective Vitals Vital Signs Date Time Temp Pulse Resp B/P Pulse Ox O2 Delivery O2 Flow Rate FiO2 04/12/17 08:25 96.2 81 14 102/62 99 04/12/17 05:34 18 04/12/17 04:00 97.0 85 16 107/55 99 04/12/17 00:00 98.1 69 16 121/67 99 04/11/17 21:00 79 04/11/17 20:00 99.7 82 17 106/59 100 04/11/17 16:38 77 04/11/17 16:00 98.7 81 14 116/57 100 04/11/17 12:15 76 04/11/17 12:00 96.4 78 14 112/57 100 04/11/17 10:16 74 120/75 I/O 04/11/17 04/11/17 04/11/17 04/12/17 04/12/17 04/12/17 07:00 15:00 23:00 07:00 15:00 23:00 Intake Total 840 ml 1136 ml 960 ml 720 ml Balance 840 ml 1136 ml 960 ml 720 ml Intake Oral 600 ml 878 ml 960 ml 720 ml IV Total 240 ml 258 ml # Voids 4 3 4 4 # Bowel Movements 0 1 1 Result Diagram: 04/12/17 0440 04/12/17 0440 Imaging Last Impressions Chest X-Ray 04/07/17 0142 Signed Impressions: Service Date/Time: Friday, April 07, 2017 01:41 - CONCLUSION: No acute disease. Rebel Cotto MD Objective Remarks Patient examined in the presence of the nurse. General: No acute distress. Heart: Regular rate and rhythm. No murmur. Lungs: Clear to auscultation bilaterally. No wheezes, rales, or rhonchi. Breathing is nonlabored. Abdomen: Soft, nontender, nondistended. Extremities: No lower extremity edema. Psych: Alert and oriented. Procedures None Urinary Catheter: No Vascular Central Line Catheter: No A/P Problem List: (1) Sickle cell crisis ICD Code: D57.00 Status: Acute (2) Bacteremia ICD Code: R78.81 Status: Acute (3) Anemia ICD Code: D64.9 Status: Chronic (4) Cardiomyopathy ICD Code: I42.9 Status: Chronic Assessment and Plan 1. Sickle cell pain crisis: Clinically improving. Continue pain medication. Benadryl as needed for itching. Continue folic acid, hydroxyurea. Monitor H&H. 2. Anemia: Hemoglobin improved following transfusion. 3. Chronic systolic congestive heart failure, cardiomyopathy: Echocardiogram showed EF 40-45% with diffuse hypokinesis. Patient counseled regarding limiting fluid intake and sodium intake. 4. Bacteremia: Appreciate infectious disease recommendations. Continue vancomycin. Repeat blood cultures are negative so far. Continue IV vancomycin for 2 weeks from the first negative blood culture. 5. Asthma: Not in acute exacerbation. DuoNeb as needed. 6. Leukocytosis: May be secondary to infection. Follow labs. 7. DVT prophylaxis: SCDs, ADRIEL tillman. Problem Qualifiers (1) Anemia: Qualified Code: D64.9 - Anemia, unspecified type Hermilo Espinosa MD Apr 12, 2017 09:46
[2017-04-12] MEDS: VANCOMYCIN INJ 1,250 MG in SODIUM CHLOR 0.9% 250 ML INJ 250 ML IV SCH ×2 (10:48→23:07)
[2017-04-12] MEDS: SODIUM CHLORIDE 0.9% FLUSH 10 ML FLUSH IV FLUSH PRN (23:07)
[2017-04-13] VITALS (9 sets, daily range): BP systolic 111–133; BP diastolic 53–76; PULSE 74–88; RESP 16–18; TEMP 97.9–99.1; O2SAT 98–100
[2017-04-13] MEDS: HYDROmorphone HCL PF 1 MG/ML VIAL IV PUSH PRN ×8 (00:05→22:15)
[2017-04-13] MEDS: SODIUM CHLORIDE 0.9% FLUSH 10 ML FLUSH IV FLUSH PRN ×6 (00:06→22:16)
[2017-04-13] MEDS: diphenhydrAMINE HCL 25 MG CAP PO PRN ×4 (00:08→19:12)
[2017-04-13] MEDS: SODIUM CHLORIDE 0.9% FLUSH 10 ML FLUSH IVF PRN ×3 (03:06→06:13)
[2017-04-13 04:33] LABS: AUTOMATED NEUTROPHIL # 7.2 TH/MM3 (1.8-7.7); BASOPHIL # 0.4 TH/MM3 (0-0.2); EOSINOPHIL # 0.6 TH/MM3 (0-0.4); EOSINOPHIL % 4.4 % (0.0-4.0); HEMATOCRIT 24.3 % (35.0-46.0); LYMPH % 27.9 % (9.0-44.0); LYMPHOCYTE # 3.8 TH/MM3 (1.0-4.8); MEAN CELL VOLUME 88.1 FL (80.0-100.0); MEAN CORPUSCULAR HEMOGLOBIN 30.3 PG (27.0-34.0); MEAN CORPUSCULAR HGB CONC 34.4 % (32.0-36.0); MONO % 11.6 % (0.0-8.0); NEUT % 53.1 % (16.0-70.0); PLATELET COUNT 400 TH/MM3 (150-450); RED BLOOD COUNT 2.75 MIL/MM3 (4.00-5.30); WHITE BLOOD COUNT 13.6 TH/MM3 (4.0-11.0)
[2017-04-13 04:39] LABS: HEMO FLAGS AUTO DIFF
[2017-04-13 04:55] LABS: BICARBONATE 26.6 MEQ/L (21.0-32.0); POTASSIUM 3.4 MEQ/L (3.5-5.1)
[2017-04-13 05:09] LABS: BANDS 1 % (0-6); BASOPHILS 1 % (0-2); EOSINOPHILS 7 % (0-4); METAMYELOCYTES 1 % (0-1); NEUTROPHIL # MANUAL DIFF 7.2 TH/MM3 (1.8-7.7); POLYS (SEG NEUTROPHILS) 51 % (16-70); WBC DIFF SAMPLE 100
[2017-04-13 05:10] LABS: OVALOCYTES 1+ (NORMAL); PLATELET ESTIMATE SMEAR NORMAL (NORMAL); PLATELET MORPHOLOGY NORMAL (NORMAL); SCAN/DIFF FINAL DIFF MANUAL
[2017-04-13] MEDS ORDERED: POTASSIUM CHLORIDE 10 MEQ CONTROLLED RELEASE TAB PO ONE (07:45)
[2017-04-13] MEDS: FOLIC ACID 1 MG TAB PO SCH (09:34)
[2017-04-13] MEDS: HYDROXYUREA 500 MG CAP PO SCH (09:36)
[2017-04-13] MEDS: SODIUM CHLORIDE 0.9% FLUSH 10 ML FLUSH IV FLUSH SCH ×2 (09:38→21:58)
[2017-04-13] MEDS ORDERED: PHARMACY ORDERED LAB ONE ×2 (09:45→21:45)
[2017-04-13] MEDS: VANCOMYCIN INJ 1,250 MG in SODIUM CHLOR 0.9% 250 ML INJ 250 ML IV SCH ×2 (10:29→22:28)
--- NOTE | 2017-04-13 11:38 | HHI.PR ---
Subjective Remarks Follow up sickle cell pain, bacteremia. Patient states pain is getting better. Denies dyspnea now, but has occasional asthma attacks. Requesting albuterol inhaler. Objective Vitals Vital Signs Date Time Temp Pulse Resp B/P Pulse Ox O2 Delivery O2 Flow Rate FiO2 04/13/17 09:00 98.6 83 18 113/53 100 04/13/17 04:01 80 04/13/17 04:00 97.9 76 16 112/55 99 04/13/17 00:09 74 04/13/17 00:00 97.9 77 17 129/75 99 04/12/17 20:05 74 04/12/17 20:00 98.0 76 16 114/63 100 04/12/17 16:00 98.8 81 14 125/73 100 04/12/17 14:44 74 121/64 04/12/17 12:15 72 04/12/17 12:00 98.1 14 99 04/12/17 11:32 74 114/64 I/O 04/12/17 04/12/17 04/12/17 04/13/17 04/13/17 04/13/17 07:00 15:00 23:00 07:00 15:00 23:00 Intake Total 720 ml 1236 ml 885 ml Balance 720 ml 1236 ml 885 ml Intake Oral 720 ml 978 ml 620 ml IV Total 258 ml 265 ml # Voids 4 3 3 # Bowel Movements 1 1 Result Diagram: 04/13/17 0340 04/13/17 0340 Imaging Last Impressions Chest X-Ray 04/07/17 0142 Signed Impressions: Service Date/Time: Friday, April 07, 2017 01:41 - CONCLUSION: No acute disease. Rebel Cotto MD Objective Remarks Patient examined in the presence of the nurse. General: No acute distress. Heart: Regular rate and rhythm. No murmur. Lungs: Clear to auscultation bilaterally. No wheezes, rales, or rhonchi. Breathing is nonlabored. Abdomen: Soft, nontender, nondistended. Extremities: No lower extremity edema. Psych: Alert and oriented. Procedures None Urinary Catheter: No Vascular Central Line Catheter: No A/P Problem List: (1) Sickle cell crisis ICD Code: D57.00 Status: Acute (2) Bacteremia ICD Code: R78.81 Status: Acute (3) Anemia ICD Code: D64.9 Status: Chronic (4) Cardiomyopathy ICD Code: I42.9 Status: Chronic Assessment and Plan 04/13/17: Stable overall. Will add albuterol HFA as needed for asthma. Continue antibiotics. Supplement potassium. 1. Sickle cell pain crisis: Clinically improving. Continue pain medication. Benadryl as needed for itching. Continue folic acid, hydroxyurea. Monitor H&H. 2. Anemia: Hemoglobin improved following transfusion. 3. Chronic systolic congestive heart failure, cardiomyopathy: Echocardiogram showed EF 40-45% with diffuse hypokinesis. Patient counseled regarding limiting fluid intake and sodium intake. 4. Bacteremia: Appreciate infectious disease recommendations. Continue vancomycin. Repeat blood cultures are negative so far. Continue IV vancomycin for 2 weeks from the first negative blood culture. 5. Asthma: Not in acute exacerbation. DuoNeb as needed. Albuterol HFA ordered for bedside. 6. Leukocytosis: May be secondary to infection. Follow labs. 7. Hypokalemia: Supplement potassium. Monitor labs. 8. DVT prophylaxis: SCDs, ADRIEL tillman. Problem Qualifiers (1) Anemia: Qualified Code: D64.9 - Anemia, unspecified type Hermilo Espinosa MD Apr 13, 2017 11:38
[2017-04-13] MEDS ORDERED: ALBUTEROL SULFATE 90 MCG/ACT HFA 8 GM INHALER INH PRN (12:00)
[2017-04-13] MEDS ORDERED: ALBUTEROL SULFATE 90 MCG/ACT HFA 18 GM INHALER INH PRN (13:00)
--- NOTE | 2017-04-13 13:02 | HHI.IDPN ---
Subjective Subjective Remarks no fever co pain BC all grew out Staph epi with similar sensitivities; repeat BC remain negative Antibiotics vancomycin Allergies: Coded Allergies: Percocet (Verified Adverse Reaction, Severe, Nausea/Vomiting, 04/07/17) AND ITCHING *MDRO Multi-Drug Resistant Organism (Verified Adverse Reaction, Unknown, Cleared 02/08/15, 04/07/17) MRSA (Chest Wound) - 02/2012 MRSA PCR Screen negative 02/06/15 and 02/08/15. Cleared per Infection Control Objective . Vital Signs Date Time Temp Pulse Resp B/P Pulse Ox O2 Delivery O2 Flow Rate FiO2 04/13/17 09:00 98.6 83 18 113/53 100 04/13/17 04:01 80 04/13/17 04:00 97.9 76 16 112/55 99 04/13/17 00:09 74 04/13/17 00:00 97.9 77 17 129/75 99 04/12/17 20:05 74 04/12/17 20:00 98.0 76 16 114/63 100 04/12/17 16:00 98.8 81 14 125/73 100 04/12/17 14:44 74 121/64 04/12/17 04/12/17 04/13/17 15:00 23:00 07:00 Intake Total 1236 ml 885 ml Balance 1236 ml 885 ml Intake Oral 978 ml 620 ml IV Total 258 ml 265 ml # Voids 3 3 # Bowel Movements 1 . Laboratory Tests Test 04/12/17 04/13/17 04:40 03:40 White Blood Count 13.1 TH/MM3 13.6 TH/MM3 Red Blood Count 2.69 MIL/MM3 2.75 MIL/MM3 Hemoglobin 8.2 GM/DL 8.3 GM/DL Hematocrit 23.7 % 24.3 % Mean Corpuscular Volume 88.3 FL 88.1 FL Mean Corpuscular Hemoglobin 30.5 PG 30.3 PG Mean Corpuscular Hemoglobin 34.6 % 34.4 % Concent Red Cell Distribution Width 15.2 % 15.0 % Platelet Count 403 TH/MM3 400 TH/MM3 Mean Platelet Volume 7.7 FL 8.2 FL Neutrophils (%) (Auto) 57.6 % 53.1 % Lymphocytes (%) (Auto) 21.6 % 27.9 % Monocytes (%) (Auto) 12.3 % 11.6 % Eosinophils (%) (Auto) 5.3 % 4.4 % Basophils (%) (Auto) 3.2 % 3.0 % Neutrophils # (Auto) 7.5 TH/MM3 7.2 TH/MM3 Lymphocytes # (Auto) 2.8 TH/MM3 3.8 TH/MM3 Monocytes # (Auto) 1.6 TH/MM3 1.6 TH/MM3 Eosinophils # (Auto) 0.7 TH/MM3 0.6 TH/MM3 Basophils # (Auto) 0.4 TH/MM3 0.4 TH/MM3 CBC Comment DIFF FINAL AUTO DIFF Differential Comment FINAL DIFF MANUAL Differential Total Cells 100 Counted Neutrophils % (Manual) 51 % Band Neutrophils % 1 % Lymphocytes % 32 % Monocytes % 7 % Eosinophils % 7 % Basophils % 1 % Neutrophils # (Manual) 7.2 TH/MM3 Metamyelocytes 1 % Platelet Estimate NORMAL Platelet Morphology Comment NORMAL Ovalocytes 1+ Laboratory Tests Test 04/12/17 04/13/17 04:40 03:40 Sodium Level 138 MEQ/L 140 MEQ/L Potassium Level 3.4 MEQ/L 3.4 MEQ/L Chloride Level 105 MEQ/L 106 MEQ/L Carbon Dioxide Level 24.9 MEQ/L 26.6 MEQ/L Anion Gap 8 MEQ/L 7 MEQ/L Blood Urea Nitrogen 9 MG/DL 8 MG/DL Creatinine 0.66 MG/DL 0.66 MG/DL Estimat Glomerular Filtration 130 ML/MIN 130 ML/MIN Rate Random Glucose 99 MG/DL 99 MG/DL Calcium Level 8.5 MG/DL 8.3 MG/DL Imaging Last Impressions Chest X-Ray 04/07/17 0142 Signed Impressions: Service Date/Time: Friday, April 07, 2017 01:41 - CONCLUSION: No acute disease. Rebel Cotto MD Physical Exam CONSTITUTIONAL/GENERAL: This is an adequately nourished patient, in no apparent distress. TUBES/LINES/DRAINS: PORT in plce R chest, no e/o infection SKIN: No jaundice, rashes, or lesions. . EYES: Pupils equal and round and reactive. Extraocular motions intact. No scleral icterus. CARDIOVASCULAR: Regular rate and rhythm without murmurs, gallops, or rubs. RESPIRATORY/CHEST: Symmetric, unlabored respirations. Clear to auscultation. GASTROINTESTINAL: Abdomen soft, non-tender, nondistended. MUSCULOSKELETAL: Extremities without clubbing, cyanosis, or edema. NEUROLOGICAL: Awake and alert.Non focal PSYCHIATRIC: calm. Assessment & Plan Remarks Sickle cell disease crisis Recurrent PORT infections New PORT infection, Staph epidermitis - initally high grade bacterimia, cleared with vanco REcemmendations: - will cont vancomycin for 2 weeks from 1st neg blood clx and retain PORT - coagulase negative staph PORT infections NOT require port removal unless conservative treatment fails OK to dc from [facility] once other issues resolve and [facility] arranged OPAT forms fillwd out will see as needed; call if any new issse s occur Zaria Junior MD Apr 13, 2017 13:02
--- NOTE | 2017-04-13 13:04 | HHI.FF ---
Infusion Therapy Location of Infusion Therapy: Home Health Care IV Infusion Order Patient Information Patient Weight 74 kg Diagnosis: Diagnosis PORT infx, St epi Coded Allergies: Percocet (Verified Adverse Reaction, Severe, Nausea/Vomiting, 04/07/17) AND ITCHING *MDRO Multi-Drug Resistant Organism (Verified Adverse Reaction, Unknown, Cleared 02/08/15, 04/07/17) MRSA (Chest Wound) - 02/2012 MRSA PCR Screen negative 02/06/15 and 02/08/15. Cleared per Infection Control Administer Medication Vancomycin 1250 mg q 12 hrs Start Treatment: Apr 14, 2017 Stop Treatment: Apr 22, 2017 Additional Information Venous access: Implanted Port Additional Instructions [x] Peripheral flush and dressing changes per protocol [x] Implanted port and central long line teamster: * Implanted port: 10 ml Normal Saline followed by 5 ml Heparin 100 units/ml Heparin flush after each use and monthly to maintain. [] May leave port accessed during therapy. [] May leave peripheral site accessed for duration of therapy. [x] If patient has SOB or respiratory distress, check oxygen saturation. If less than 90% or clinical signs of respiratory distress, administer oxygen at 2 L/min. via nasal cannula and notify physician. [x] Anaphylaxis/Reaction orders: * Stop infusion. * Keep IV line open with saline flush. * Notify physician. * Monitor vital signs every 15 minutes until symptoms resolve. * Check Oxygen saturation; Oxygen at 2 L/min. via nasal cannula if less than 90% or clinical signs of respiratory distress. * Administer diphenhydramine (Benadryl) 25 mg IV STAT, (unless patient has received as pre-med). May repeat once, if necessary. * Solu-Cortef 250 mg IVP over 30-60 seconds, use 100 mg vials for each dissolution. * Epinephrine (1mg/1 ml) 0.3 mg subcutaneously or IVP now with any signs of respiratory distress. * Check with physician for new additional pre-med orders if patient is re- challenged or re-treated. [x] May remove PICC line when treatment complete, after confirming with Physician. [x] If the patient is admitted to the hospital, the ED, or transferred via [facility] , complete transfer form including medication reconciliation order sheet. Laboratory Tests Weekly Labs: BMP, CBC w/diff Zaria Junior MD Apr 13, 2017 13:04
[2017-04-13] MEDS ORDERED: EPIN1INJ21 IV PUSH (13:06)
[2017-04-13] MEDS ORDERED: EPIN1INJ21 SQ (13:06)
[2017-04-13] MEDS ORDERED: SOLU250I IV PUSH (13:06)
[2017-04-13] MEDS ORDERED: VANC10IN IV (13:06)
[2017-04-14] VITALS: BP 120/68; PULSE 83; RESP 18; TEMP 98.8; O2SAT 99
[2017-04-14] MEDS: SODIUM CHLORIDE 0.9% FLUSH 10 ML FLUSH IV FLUSH PRN ×6 (01:27→04:29)
[2017-04-14] MEDS: HYDROmorphone HCL PF 1 MG/ML VIAL IV PUSH PRN ×4 (01:27→11:06)
[2017-04-14] MEDS: diphenhydrAMINE HCL 25 MG CAP PO PRN ×3 (01:27→14:14)
[2017-04-14 04:00] VITALS: BP 119/65; PULSE 78; RESP 18; TEMP 98.2; O2SAT 99
[2017-04-14 04:50] LABS: AUTOMATED NEUTROPHIL # 8.7 TH/MM3 (1.8-7.7); BASOPHIL # 0.4 TH/MM3 (0-0.2); BASOPHIL % 2.9 % (0.0-2.0); EOSINOPHIL # 0.5 TH/MM3 (0-0.4); EOSINOPHIL % 3.4 % (0.0-4.0); HEMATOCRIT 24.3 % (35.0-46.0); LYMPH % 25.8 % (9.0-44.0); LYMPHOCYTE # 3.9 TH/MM3 (1.0-4.8); MEAN CELL VOLUME 89.5 FL (80.0-100.0); MEAN CORPUSCULAR HEMOGLOBIN 29.1 PG (27.0-34.0); MEAN CORPUSCULAR HGB CONC 32.5 % (32.0-36.0); MONO % 10.3 % (0.0-8.0); NEUT % 57.6 % (16.0-70.0); PLATELET COUNT 411 TH/MM3 (150-450); RED BLOOD COUNT 2.72 MIL/MM3 (4.00-5.30); RED CELL DISTRIBUTION WIDTH 14.9 % (11.6-17.2); WHITE BLOOD COUNT 15.1 TH/MM3 (4.0-11.0)
[2017-04-14 04:55] LABS: HEMO FLAGS AUTO DIFF
[2017-04-14 05:08] LABS: BICARBONATE 27.2 MEQ/L (21.0-32.0); MAGNESIUM 1.6 MG/DL (1.5-2.5); POTASSIUM 3.2 MEQ/L (3.5-5.1)
[2017-04-14 08:00] VITALS: BP 113/61; PULSE 77; RESP 18; TEMP 98.1; O2SAT 97
[2017-04-14] MEDS ORDERED: MAGNESIUM SULFATE 1 GM PREMIX 100 ML IV ONE (08:00)
[2017-04-14] MEDS ORDERED: POTASSIUM CHLOR 20 MEQ PREMIX 100 ML IV ONE (08:00)
[2017-04-14] MEDS ORDERED: POTASSIUM CHLORIDE 10 MEQ CONTROLLED RELEASE TAB PO ONE (08:00)
[2017-04-14] MEDS: HYDROXYUREA 500 MG CAP PO SCH (08:01)
[2017-04-14] MEDS: FOLIC ACID 1 MG TAB PO SCH (08:01)
[2017-04-14] MEDS: SODIUM CHLORIDE 0.9% FLUSH 10 ML FLUSH IV FLUSH SCH (08:06)
[2017-04-14 08:38] LABS: BANDS 3 % (0-6); BASOPHILS 3 % (0-2); CORRECTED NUCLEATED RBC 1 /100 WBC (0-0); EOSINOPHILS 1 % (0-4); NEUTROPHIL # MANUAL DIFF 9.1 TH/MM3 (1.8-7.7); OVALOCYTES 1+ (NORMAL); PLATELET ESTIMATE SMEAR NORMAL (NORMAL); PLATELET MORPHOLOGY NORMAL (NORMAL); POLYS (SEG NEUTROPHILS) 57 % (16-70); SCAN/DIFF FINAL DIFF MANUAL; WBC DIFF SAMPLE 100
[2017-04-14] MEDS: VANCOMYCIN INJ 1,250 MG in SODIUM CHLOR 0.9% 250 ML INJ 250 ML IV SCH (10:45)
[2017-04-14 12:00] VITALS: BP 108/57; PULSE 76; RESP 18; TEMP 99.1; O2SAT 100
[2017-04-14] MEDS ORDERED: ACETAMINOPHEN/HYDROcodone 325 MG/5 MG TAB PO PRN (12:00)
[2017-04-14] MEDS ORDERED: ACETAMINOPHEN/HYDROcodone 325 MG/7.5 MG TAB PO PRN (12:00)
[2017-04-14] MEDS ORDERED: POTA20TA5 PO (15:55)
[2017-04-14] MEDS ORDERED: HYDR-3535 PO (15:55)
--- NOTE | 2017-04-14 15:56 | HHI.DCPOC ---
Discharge Care Plan Diagnosis: (1) Cardiomyopathy (2) Sickle cell crisis (3) Anemia (4) Bacteremia Goals to Promote Your Health * To prevent worsening of your condition and complications * To maintain your health at the optimal level Directions to Meet Your Goals Take your medications as prescribed Follow your dietary instruction Follow activity as directed Keep your appointments as scheduled Take your immunizations and boosters as scheduled If your symptoms worsen call your PCP, if no PCP go to Urgent Care Center or Emergency Room Smoking is Dangerous to Your Health. Avoid second hand smoke Call the 24-hour hour crisis hotline for domestic abuse at Hermilo Espinosa MD Apr 14, 2017 15:56
--- NOTE | 2017-04-14 15:57 | HHI.DS ---
Discharge Summary Admission Date Apr 07, 2017 at 03:31 Discharge Date: Apr 14, 2017 Admitting Diagnosis sickle cell crisis, anemia, leukocytosis (1) Sickle cell crisis ICD Code: D57.00 (2) Bacteremia ICD Code: R78.81 (3) Anemia ICD Code: D64.9 (4) Cardiomyopathy ICD Code: I42.9 Procedures None Brief History - From Admission This is a 26-year-old female with a past medical history significant for sickle cell disease, asthma and CHF who presents to [facility] ED with complaints of a sickle cell pain crisis in her back, arms and legs ongoing for the past 2 days. She states the typical pain crisis for her and is usually exacerbated by her menstrual cycle. She reports her last crisis was a month ago during her last menstrual cycle now not as severe. She denies any complaints of chest pain or shortness of breath. She states she has some chills but no fever. She reports slight cough without any sputum production. She reports mild headache. She states she has some mild lower abdominal cramping that she attributes to her regular menstrual cramps. She denies any dizziness or vision changes. She denies any weakness, numbness or tingling. She denies any nausea or vomiting. She denies any hematuria, dysuria, diarrhea or constipation. Patient previously followed by strap stitcher she believes Dr. Fuentes as an outpatient but was let go from the practice for uncertain reasons but she believes it may be due to pain management. She states she has an upcoming appointment with a new primary care physician on April 20 and is planning to get a referral to a pain management physician in [place]. She normally takes Lortab 10 for pain relief at home. In the ED, workup was significant for leukocytosis with a white count of 19.5 as well as anemia with hemoglobin of 6.4 and hematocrit of 18.3. Transfusion of 2 units of PRBCs has been ordered by the ED physician and patient currently has one unit of blood hanging. She states her pain is well- controlled at this time. She is requesting IV Benadryl for itching but admits she only has a mild amount of itching presently. She also is hypokalemic with potassium level of 3.1. Blood cultures are pending. Chest x-ray was unremarkable. CBC/BMP: 04/14/17 0330 04/14/17 0330 Significant Findings Laboratory Tests Test 04/12/17 04/13/17 04/13/17 04/14/17 04:40 03:40 21:55 03:30 White Blood Count 13.1 TH/MM3 13.6 TH/MM3 15.1 TH/MM3 (4.0-11.0) (4.0-11.0) (4.0-11.0) Red Blood Count 2.69 MIL/MM3 2.75 MIL/MM3 2.72 MIL/MM3 (4.00-5.30) (4.00-5.30) (4.00-5.30) Hemoglobin 8.2 GM/DL 8.3 GM/DL 7.9 GM/DL (11.6-15.3) (11.6-15.3) (11.6-15.3) Hematocrit 23.7 % 24.3 % 24.3 % (35.0-46.0) (35.0-46.0) (35.0-46.0) Monocytes (%) (Auto) 12.3 % 11.6 % 10.3 % (0.0-8.0) (0.0-8.0) (0.0-8.0) Eosinophils (%) (Auto) 5.3 % (0.0-4.0) 4.4 % (0.0-4.0) Basophils (%) (Auto) 3.2 % (0.0-2.0) 3.0 % (0.0-2.0) 2.9 % (0.0-2.0) Monocytes # (Auto) 1.6 TH/MM3 1.6 TH/MM3 1.6 TH/MM3 (0-0.9) (0-0.9) (0-0.9) Eosinophils # (Auto) 0.7 TH/MM3 0.6 TH/MM3 0.5 TH/MM3 (0-0.4) (0-0.4) (0-0.4) Basophils # (Auto) 0.4 TH/MM3 0.4 TH/MM3 0.4 TH/MM3 (0-0.2) (0-0.2) (0-0.2) Potassium Level 3.4 MEQ/L 3.4 MEQ/L 3.2 MEQ/L (3.5-5.1) (3.5-5.1) (3.5-5.1) Eosinophils % 7 % (0-4) Ovalocytes 1+ (NORMAL) 1+ (NORMAL) Calcium Level 8.3 MG/DL 8.4 MG/DL (8.5-10.1) (8.5-10.1) Vancomycin Level Trough 13.0 MCG/ML (5.0-10.0) Neutrophils # (Auto) 8.7 TH/MM3 (1.8-7.7) Monocytes % 13 % (0-8) Basophils % 3 % (0-2) Neutrophils # (Manual) 9.1 TH/MM3 (1.8-7.7) Nucleated Red Blood Cells 1 /100 WBC (0-0) Random Glucose 108 MG/DL (74-106) Imaging Last Impressions Chest X-Ray 04/07/17 0142 Signed Impressions: Service Date/Time: Friday, April 07, 2017 01:41 - CONCLUSION: No acute disease. Rebel Cotto MD PE at Discharge Patient examined in the presence of the nurse. General: No acute distress. Heart: Regular rate and rhythm. No murmur. Lungs: Clear to auscultation bilaterally. No wheezes, rales, or rhonchi. Breathing is nonlabored. Abdomen: Soft, nontender, nondistended. Extremities: No lower extremity edema. Psych: Alert and oriented. Pt update on day of discharge The patient is resting comfortably. She states that her pain is better. She states that she is ready to go home as soon as the antibiotics are arranged. Hospital Course The patient was admitted for management of sickle cell pain crisis. Blood cultures were positive for Staphylococcus epidermidis. Infectious disease was consulted. Patient was continued on IV antibiotics. Her pain symptoms improved. Arrangements were made for outpatient antibiotics. The patient was cleared for discharge home by infectious disease. Pt Condition on Discharge: Stable Discharge Disposition: Disch w/ Home Health Serv Discharge Time: > 30 minutes Discharge Instructions DIET: Follow Instructions for: Heart Healthy Diet Activities you can perform: Regular-No Restrictions Follow up Referrals: Oncology - 2 Weeks PCP Follow-up - 1 Week New Medications: Epinephrine Inj (Epinephrine Inj) 1 Mg/Ml Inj 0.3 MG IV PUSH ONCE PRN ALLERGIC REACTION #1 VIAL Epinephrine Inj (Epinephrine Inj) 1 Mg/Ml Inj 0.3 MG SQ ONCE Give with any signs of respiratory distress. PRN ALLERGIC REACTION #1 VIAL Hydrocortisone Inj (Solu-Cortef Inj) 250 Mg Inj 250 MG IV PUSH ONCE Give over 30-60 seconds. PRN ALLERGIC REACTION #1 Ref 0 VIAL Vancomycin Inj (Vancomycin Inj) 10 Gm Inj 1250 MG IV Q12HR Infection Days 10 VIAL Potassium Chloride Microencaps (Potassium Chloride Microencaps) 20 Meq Tab 20 MEQ PO DAILY Nutritional Supplement #30 Ref 0 TAB Continued Medications: Albuterol 6.7 GM Inh (Proventil Hfa 6.7 GM Inh) 90 Mcg/Act Aer 2 PUFF INH Q6H PRN SHORTNESS OF BREATH #1 Ref 0 INHALER Folic Acid (Folic Acid) 400 Mcg Tab 400 MCG PO DAILY Nutritional Supplement Ref 0 TAB Hydrocodone-Acetaminophen (Lortab) 10-325 Mg Tab 1 TAB PO Q6H PRN PAIN #20 Ref 0 TAB (This prescription has been renewed) Hydroxyurea (Hydrea) 500 Mg Cap 500 MG PO DAILY sickle cell Days 30 Ref 0 CAP Zolpidem (Ambien) 5 Mg Tab 5 MG PO HS INSOMNIA Ref 0 TAB Hermilo Espinosa MD Apr 14, 2017 15:57
--- NOTE | 2017-04-14 16:11 | HHI.FF ---
Face to Face Verification Diagnosis: (1) Cardiomyopathy (2) Sickle cell crisis (3) Anemia (4) Bacteremia Home Health Nursing Order: Nursing assessment with vital signs IV medication administration I have seen patient Marce Frazier on 04/14/17. My clinical findings support the need for the requested home health care services because: Infection w/ risk of complications I certify that my clinical findings support that this patient is homebound because: Poor cardiac reserve Hermilo Espinosa MD Apr 14, 2017 16:11
[2017-04-15] MEDS ORDERED: POTASSIUM CHLORIDE 20 MEQ CONTROLLED RELEASE TAB PO SCH (09:00)
== END 2017-04-14 17:33 | disposition home health service (06) | DRG 812 ==
LOC: NEPC 01:14 → NEDA 03:31 → NEPHCDU 04:57 → HOCB 19:54
PROVIDERS: ADMIT Family Medicine; ATTEND Family Medicine
PROC: 30233N1 Transfusion of Nonautologous Red Blood Cells into Peripheral Vein, Percutaneous Approach (ICD-10-PCS; principal; 2017-04-07)
DX: D57.00 Hb-SS disease with crisis, unspecified (principal); T80.211A Bloodstream infection due to central venous catheter, initial encounter; R78.81 Bacteremia; I42.9 Cardiomyopathy, unspecified; I50.22 Chronic systolic (congestive) heart failure; E87.6 Hypokalemia; F41.9 Anxiety disorder, unspecified; J45.909 Unspecified asthma, uncomplicated; D72.829 Elevated white blood cell count, unspecified; N94.6 Dysmenorrhea, unspecified; B95.7 Other staphylococcus as the cause of diseases classified elsewhere; Y82.8 Other medical devices associated with adverse incidents; Z86.14 Personal history of Methicillin resistant Staphylococcus aureus infection; Z87.891 Personal history of nicotine dependence
CPT/HCPCS: 36430; 71010; 80048; 80053; 80202; 81001; 83605; 83735; 85007; 85014; 85018; 85025; 85027; 85044; 86403; 86850; 86900; 86901; 86902; 86920; 86922; 87040; 87186; 87205; 96361; 96374; 96376; J1170; J1642; J1940; J2405; J3370; J3475; J3480; J7030; J7050; P9016; P9022

== ENCOUNTER 2017-05-15 03:19 | Observation (INO) | payer MEDICAID ==
[2017-05-15] VITALS (7 sets, daily range): BP systolic 100–130; BP diastolic 55–70; PULSE 78–92; RESP 16–18; TEMP 97.3–97.9; O2SAT 95–99
[~2017-05-15 03:19] MED LIST changes: +EPIN1INJ21 IV PUSH; +EPIN1INJ21 SQ; +FOLI400T PO; +POTA20TA5 PO; +SOLU250I IV PUSH; +VANC10IN IV
[2017-05-15] MEDS ORDERED: SODIUM CHLOR 0.9% 1000 ML INJ 1,000 ML IV ONE ×2 (05:04→08:00)
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
[2017-05-15] MEDS ORDERED: KETOROLAC TROMETHAMINE 30 MG/ML (IVP) VIAL IVP ONE (05:15)
[2017-05-15] MEDS ORDERED: HYDROmorphone HCL PF 2 MG/ML VIAL IVS ONE (05:15)
[2017-05-15] MEDS ORDERED: diphenhydrAMINE HCL 50 MG/ML VIAL IV ONE ×2 (05:15→09:45)
[2017-05-15] MEDS ORDERED: SODIUM CHLORIDE 0.9% FLUSH 10 ML FLUSH IVF PRN (05:15)
[2017-05-15 06:12] LABS: AUTOMATED NEUTROPHIL # 13.2 TH/MM3 (1.8-7.7); BASOPHIL # 0.3 TH/MM3 (0-0.2); BASOPHIL % 1.5 % (0.0-2.0); EOSINOPHIL # 0.4 TH/MM3 (0-0.4); EOSINOPHIL % 2.2 % (0.0-4.0); LYMPH % 18.1 % (9.0-44.0); LYMPHOCYTE # 3.6 TH/MM3 (1.0-4.8); MEAN CELL VOLUME 85.8 FL (80.0-100.0); MEAN CORPUSCULAR HEMOGLOBIN 29.9 PG (27.0-34.0); MEAN CORPUSCULAR HGB CONC 34.8 % (32.0-36.0); MONO % 11.4 % (0.0-8.0); NEUT % 66.8 % (16.0-70.0); PLATELET COUNT 397 TH/MM3 (150-450); RED CELL DISTRIBUTION WIDTH 15.9 % (11.6-17.2); RETIC % 5.2 % (0.4-3.0); WHITE BLOOD COUNT 19.7 TH/MM3 (4.0-11.0)
[2017-05-15 06:14] LABS: HEMO FLAGS AUTO DIFF
[2017-05-15 06:15] LABS: HEMATOCRIT 20.6 % (35.0-46.0)
[2017-05-15 06:41] LABS: BICARBONATE 23.7 MEQ/L (21.0-32.0); POTASSIUM 3.6 MEQ/L (3.5-5.1)
[2017-05-15 07:04] LABS: CORRECTED NUCLEATED RBC 1 /100 WBC (0-0); EOSINOPHILS 2 % (0-4); HOWELL-JOLLY BODIES PRESENT (NONE SEEN); METAMYELOCYTES 1 % (0-1); NEUTROPHIL # MANUAL DIFF 15.2 TH/MM3 (1.8-7.7); PLATELET ESTIMATE SMEAR NORMAL (NORMAL); PLATELET MORPHOLOGY NORMAL (NORMAL); POLYS (SEG NEUTROPHILS) 76 % (16-70); SCAN/DIFF FINAL DIFF MANUAL; SICKLE CELLS 1+ (NORMAL); WBC DIFF SAMPLE 100
[2017-05-15] MEDS ORDERED: ALBUTEROL SULFATE 90 MCG/ACT HFA 8 GM INHALER INH PRN (07:45)
[2017-05-15] MEDS: FOLIC ACID 1 MG TAB PO SCH (08:53)
[2017-05-15] MEDS: POTASSIUM CHLORIDE 20 MEQ CONTROLLED RELEASE TAB PO SCH (08:53)
[2017-05-15] MEDS: HYDROXYUREA 500 MG CAP PO SCH (09:07)
[2017-05-15] MEDS ORDERED: HYDROmorphone HCL PF 1 MG/ML VIAL IV ONE (09:45)
[2017-05-15] MEDS ORDERED: SODIUM CHLOR 0.9% 250 ML INJ 250 ML IV ONE (10:15)
[2017-05-15] MEDS ORDERED: diphenhydrAMINE HCL 25 MG CAP PO PRN (10:15)
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
[2017-05-15 11:53] LABS: TRANSFERRIN IRON PROFILE 112 MG/DL (200-360)
[2017-05-15] MEDS ORDERED: PILL SPLITTER OTHER PRN (12:45)
[2017-05-15] MEDS: ACETAMINOPHEN/HYDROcodone 325 MG/10 MG TAB PO PRN ×2 (12:50→18:27)
[2017-05-15] MEDS: LISINOPRIL 5 MG TAB PO SCH (12:50)
[2017-05-15 17:12] LABS: INDIRECT BILIRUBIN 1.5 MG/DL (0.0-0.8); TOTAL BILIRUBIN ADULT 1.8 MG/DL (0.2-1.0)
[2017-05-15] MEDS: HYDROmorphone HCL PF 1 MG/ML VIAL IV PUSH PRN ×2 (20:30→23:26)
[2017-05-15] MEDS ORDERED: ZOLPIDEM TARTRATE 5 MG TAB PO SCH (21:00)
[2017-05-16] MEDS: ACETAMINOPHEN/HYDROcodone 325 MG/10 MG TAB PO PRN ×3 (00:54→12:56)
[2017-05-16] MEDS: HYDROmorphone HCL PF 1 MG/ML VIAL IV PUSH PRN ×2 (02:33→05:23)
[2017-05-16 05:50] VITALS: BP 115/71; PULSE 92; RESP 16; TEMP 98.1; O2SAT 99
[2017-05-16 08:00] VITALS: TEMP 99.2
[2017-05-16] MEDS: POTASSIUM CHLORIDE 20 MEQ CONTROLLED RELEASE TAB PO SCH (08:29)
[2017-05-16] MEDS: LISINOPRIL 5 MG TAB PO SCH (08:29)
[2017-05-16] MEDS: FOLIC ACID 1 MG TAB PO SCH (08:30)
[2017-05-16] MEDS: HYDROXYUREA 500 MG CAP PO SCH (08:40)
[2017-05-16 08:51] LABS: BASOPHIL % 0.2 % (0.0-2.0); EOSINOPHIL # 0.7 TH/MM3 (0-0.4); EOSINOPHIL % 4.1 % (0.0-4.0); HEMO FLAGS DIFF FINAL; LYMPH % 19.1 % (9.0-44.0); LYMPHOCYTE # 3.5 TH/MM3 (1.0-4.8); MEAN CELL VOLUME 83.3 FL (80.0-100.0); MEAN CORPUSCULAR HEMOGLOBIN 29.2 PG (27.0-34.0); MEAN CORPUSCULAR HGB CONC 35.1 % (32.0-36.0); MONO % 10.6 % (0.0-8.0); PLATELET COUNT 357 TH/MM3 (150-450); RED BLOOD COUNT 2.52 MIL/MM3 (4.00-5.30); RED CELL DISTRIBUTION WIDTH 17.7 % (11.6-17.2); WHITE BLOOD COUNT 18.3 TH/MM3 (4.0-11.0)
[2017-05-16 12:33] VITALS: BP 106/60; PULSE 93; RESP 19; TEMP 98.1; O2SAT 94
--- NOTE | 2017-05-16 16:45 | HHI.DS ---
Discharge Summary Admission Date May 15, 2017 at 07:33 Discharge Date: May 16, 2017 Admitting Diagnosis Sickle cell pain crisis. (1) Sickle cell crisis ICD Code: D57.00 - Hb-SS disease with crisis, unspecified Status: Acute Procedures Blood transfusion of 1 unit packed red blood cells Brief History - From Admission 26-year-old black female being admitted for sickle cell pain crisis. Patient was in her usual state of health until 4 days ago when she began experiencing worsening of her chronic intermittent sickle cell pain symptoms. Says that her pain worsened and her back, shoulder blades, arms, and legs. Denies any chest pain, worsening shortness of breath (has asthma baseline), fevers, or cold sweats. Says that on good days she just takes extra strength Tylenol but with this recent worsening she started taking her Lortab pills every 6 hours until she ran out in 2 days time, after which she went back to Tylenol which was not controlling the pain and prompted her to come to the ER. Prior to this setback, the patient had her period the week prior. She states that she had a similar presentation about a month ago in the chart review does confirm this that she had a sickle cell pain crisis shortly after her menses. At that time the patient was also treated for bacteremia presumably due to a port infection and she was on a course for vancomycin started by infectious disease. Since her last hospitalization, she denies any flulike symptoms. Denies any abdominal pain or dysuria. Says she feels weak and lightheaded. Denies losing consciousness. Says she has jaundiced eyes at baseline. She is tearful throughout our conversation stating she hates coming to the hospital and being away from her child. CBC/BMP: 05/16/17 0840 05/15/17 0535 Significant Findings Laboratory Tests Test 05/15/17 05:35 05/16/17 08:40 White Blood Count 19.7 TH/MM3 (4.0-11.0) 18.3 TH/MM3 (4.0-11.0) Red Blood Count 2.40 MIL/MM3 (4.00-5.30) 2.52 MIL/MM3 (4.00-5.30) Hemoglobin 7.2 GM/DL (11.6-15.3) 7.4 GM/DL (11.6-15.3) Hematocrit 20.6 % (35.0-46.0) 21.0 % (35.0-46.0) Monocytes (%) (Auto) 11.4 % (0.0-8.0) 10.6 % (0.0-8.0) Neutrophils # (Auto) 13.2 TH/MM3 (1.8-7.7) 12.0 TH/MM3 (1.8-7.7) Monocytes # (Auto) 2.2 TH/MM3 (0-0.9) 1.9 TH/MM3 (0-0.9) Basophils # (Auto) 0.3 TH/MM3 (0-0.2) Neutrophils % (Manual) 76 % (16-70) Neutrophils # (Manual) 15.2 TH/MM3 (1.8-7.7) Nucleated Red Blood Cells 1 /100 WBC (0-0) Sickle Cells 1+ (NORMAL) Reticulocyte Count 5.2 % (0.4-3.0) Calcium Level 8.4 MG/DL (8.5-10.1) Total Iron Binding Capacity 157 MCG/DL (250-450) Percent Iron Saturation 93.1 % (20-50) Total Bilirubin 1.8 MG/DL (0.2-1.0) Direct Bilirubin 0.3 MG/DL (0.0-0.2) Indirect Bilirubin 1.5 MG/DL (0.0-0.8) Aspartate Amino Transf (AST/SGOT) 51 U/L (15-37) Red Cell Distribution Width 17.7 % (11.6-17.2) Eosinophils (%) (Auto) 4.1 % (0.0-4.0) Eosinophils # (Auto) 0.7 TH/MM3 (0-0.4) PE at Discharge No acute distress, lying in bed, awake Lungs are clear bilaterally Grossly Intact range of motion of all 4 extremities Soft abdomen nontender Hospital Course Patient was admitted, started on IV pain medication, received 1 unit of packed red blood cells. Over the next 18 hours her symptoms are clinically improved, had a thorough discussion with the nurse taking care of her, the patient was ambulatory tolerating by mouth intake, the patient said she did not ambulate but the nurse said she in fact did and she ambulated without any difficulty. When talking to her about discharge and the day home, the patient said she just got here, but she was in no clear distress on my physical exam the patient had been deemed clinically stable for discharge after meeting maximum benefit from hospitalization. She remained afebrile throughout her stay and it was concluded that her leukocytosis was likely stress-induced from her pain crisis. I instructed the patient that it was imperative that she follow-up with the parts identification technician for her sickle cell disease. I have started her on lisinopril given her reduced ejection fraction which is likely from high output cardiac failure from her sickle cell anemia Pt Condition on Discharge: Stable Discharge Disposition: Discharge Home Discharge Time: > 30 minutes Discharge Instructions Follow up Referrals: Oncology/Hematology - 10 Days New Medications: Lisinopril (Lisinopril) 5 Mg Tab 2.5 MG PO DAILY for heart failure, #30 TAB Changed Medications: Hydrocodone-Acetaminophen (Lortab) 10-325 Mg Tab 1 TAB PO Q8HR PRN for PAIN, #90 TAB 0 Refills (Changed from: Q6H; 20) Continued Medications: Albuterol 6.7 GM Inh (Proventil Hfa 6.7 GM Inh) 90 Mcg/Act Aer 2 PUFF INH Q6H PRN for SHORTNESS OF BREATH, #1 INHALER 0 Refills Epinephrine Inj (Epinephrine Inj) 1 Mg/Ml Inj 0.3 MG IV PUSH ONCE PRN for ALLERGIC REACTION, #1 VIAL Epinephrine Inj (Epinephrine Inj) 1 Mg/Ml Inj 0.3 MG SQ ONCE PRN for ALLERGIC REACTION, #1 VIAL Give with any signs of respiratory distress. Folic Acid (Folic Acid) 400 Mcg Tab 400 MCG PO DAILY for Nutritional Supplement, TAB 0 Refills Hydrocortisone Inj (Solu-Cortef Inj) 250 Mg Inj 250 MG IV PUSH ONCE PRN for ALLERGIC REACTION, #1 VIAL 0 Refills Give over 30-60 seconds. Hydroxyurea (Hydrea) 500 Mg Cap 500 MG PO DAILY for sickle cell, #30 CAP 0 Refills (This prescription has been renewed) Potassium Chloride Microencaps (Potassium Chloride Microencaps) 20 Meq Tab 20 MEQ PO DAILY for Nutritional Supplement, #30 TAB 0 Refills Zolpidem (Ambien) 5 Mg Tab 5 MG PO HS for INSOMNIA, TAB 0 Refills Masoodi,Jose Sylvester MD May 16, 2017 16:45
[2017-05-16 16:50] VITALS: BP 100/58; PULSE 84; RESP 19; TEMP 97.7; O2SAT 93
[2017-05-16] MEDS ORDERED: HYDR500C PO (16:53)
[2017-05-16] MEDS ORDERED: HYDR-3535 PO (16:53)
[2017-05-16] MEDS ORDERED: LISI-519 PO (16:53)
--- NOTE | 2017-05-16 16:54 | HHI.DCPOC ---
Discharge Care Plan Additional Problems sickle cell crisis heart pumping dysfunction Goals to Promote Your Health * To prevent worsening of your condition and complications * To maintain your health at the optimal level Directions to Meet Your Goals Take your medications as prescribed Follow your dietary instruction Follow activity as directed Keep your appointments as scheduled Take your immunizations and boosters as scheduled If your symptoms worsen call your PCP, if no PCP go to Urgent Care Center or Emergency Room Smoking is Dangerous to Your Health. Avoid second hand smoke Call the 24-hour hour crisis hotline for domestic abuse at Jose Stevens MD May 16, 2017 16:54
== END 2017-05-16 17:55 | disposition home or self-care (01) ==
LOC: NED 03:19 → UNDOADMOB 07:33 → NEDA 07:33 → HOCB 14:50 → NEDA 14:50 → UNDODISOB 05-16 17:55
PROVIDERS: ADMIT Hospitalist; ATTEND Hospitalist
DX: D57.00 Hb-SS disease with crisis, unspecified (principal); D72.829 Elevated white blood cell count, unspecified; I50.9 Heart failure, unspecified; R17 Unspecified jaundice; J45.909 Unspecified asthma, uncomplicated
CPT/HCPCS: 36430; 80048; 80076; 83540; 83550; 85007; 85025; 85027; 85044; 86850; 86900; 86901; 86920; 86922; 96361; 96374; 96375; 96376; 99285; G0378; J1170; J1200; J1885; J7030; J7050; P9016

== ENCOUNTER 2017-07-08 02:55 | Emergency (ER) | payer MEDICAID ==
[2017-07-08] VITALS (8 sets, daily range): BP systolic 104–133; BP diastolic 51–68; PULSE 92–118; RESP 16–19; TEMP 98.2–99.3; O2SAT 95–100
[~2017-07-08] VITALS: Ht 165.1 cm; Wt 71.0 kg
[~2017-07-08 02:55] MED LIST changes: +LISI-519 PO; -VANC10IN IV
[2017-07-08] MEDS ORDERED: SODIUM CHLOR 0.9% 1000 ML INJ 1,000 ML IV ONE ×2 (03:09→04:45)
[2017-07-08] MEDS ORDERED: ONDANSETRON HCL 4 MG/2 ML VIAL IVP ONE (03:15)
[2017-07-08] MEDS ORDERED: MORPHINE SULFATE 8 MG/ML INJ IV PUSH ONE (03:15)
--- NOTE | 2017-07-08 03:19 | PD ---
HPI Chief Complaint: Sickle Cell Time Seen by Provider: 03:09 Travel History International Travel<30 days: No Contact w/Intl Traveler<30days: No Traveled to known affect area: No History of Present Illness HPI PATIENT STATES THAT OVER LAST 2 DAYS C/O GEN ACHES C/W HER SICKLE PAIN CRISIS, DENIES SOB/COUGH/FEVER/ AT THIS MOMENT, DENIES CP/ABDPAIN CURRENTLY AND STATES THAT SHE IS ON HER PERIOD. CURRENTLY CAN'T RECALL NAME OF PCP BUT SHE HAS AN UPCOMING APPT IN [place] [facility] Past Medical History Anemia: Yes Arthritis: No Asthma: Yes Autoimmune Disease: No Blood Disorders: Yes Anxiety: Yes Depression: No Heart Rhythm Problems: No Cancer: No Cardiovascular Problems: Yes (CHF) High Cholesterol: No Chemotherapy: No Chest Pain: Yes Congestive Heart Failure: Yes COPD: No Cerebrovascular Accident: No Cystic Fibrosis: No Diabetes: No Diminished Hearing: No Endocrine: No Gastrointestinal Disorders: No GERD: No Glaucoma: No Genitourinary: No Headaches: Yes Hepatitis: No Hiatal Hernia: No Heparin Induced Thrombocytopen: No Hypertension: No Immune Disorder: No Implanted Vascular Access Dvce: Yes Kidney Stones: No Musculoskeletal: No Neurologic: Yes Psychiatric: Yes Reproductive: No Respiratory: Yes (Asthma) Immunizations Current: Yes Migraines: Yes Myocardial Infarction: No Pneumonia: Yes Radiation Therapy: No Renal Failure: No Seizures: No Sickle Cell Disease: Yes Sleep Apnea: No Thyroid Disease: No Ulcer: No Tetanus Vaccination: > 5 Years Influenza Vaccination: Yes PNEUMOCCOCAL Vaccine (Year): 1 ?: Unknown LMP: 07/08/17 : 1 Para: 1 Miscarriage: 0 : 0 Tubal Ligation: Yes Past Surgical History Abdominal Surgery: No AICD: No Appendectomy: No Arteriovenous Shunt: No Body Medical Devices: R Chest Infusaport (3RD) Cardiac Surgery: No Section: Yes (X 1) Cholecystectomy: Yes Ear Surgery: No Endocrine Surgery: No Eye Surgery: No Genitourinary Surgery: No Gynecologic Surgery: Yes (c section) Hysterectomy: No Insulin Pump: No Joint Replacement: No Neurologic Surgery: No Oral Surgery: No Pacemaker: No Thoracic Surgery: No Other Surgery: Yes (PORTX3 PLACED AND REMOVED, gallstones) Social History Alcohol Use: No Tobacco Use: No Substance Use: No Allergies-Medications (Allergen,Severity, Reaction): Coded Allergies: oxycodone (Unverified Adverse Reaction, Severe, Nausea/Vomiting, 07/08/17) AND ITCHING *MDRO Multi-Drug Resistant Organism (Verified Adverse Reaction, Unknown, Cleared 02/08/15, 07/08/17) MRSA (Chest Wound) - 02/2012 MRSA PCR Screen negative 02/06/15 and 02/08/15. Cleared per Infection Control Reported Meds & Prescriptions Reported Meds & Active Scripts Active Lisinopril 5 Mg Tab 2.5 Mg PO DAILY Lortab (Hydrocodone-Acetaminophen) 10-325 Mg Tab 1 Tab PO Q8HR PRN Hydrea (Hydroxyurea) 500 Mg Cap 500 Mg PO DAILY Potassium Chloride Microencaps 20 Meq Tab 20 Meq PO DAILY Epinephrine Inj 1 Mg/Ml Inj 0.3 Mg SQ ONCE PRN Give with any signs of respiratory distress. Epinephrine Inj 1 Mg/Ml Inj 0.3 Mg IV PUSH ONCE PRN Solu-Cortef Inj (Hydrocortisone Sodium Succinate) 250 Mg Inj 250 Mg IV PUSH ONCE PRN Give over 30-60 seconds. Reported Folic Acid 400 Mcg Tab 400 Mcg PO DAILY Ambien (Zolpidem Tartrate) 5 Mg Tab 5 Mg PO HS Proventil Hfa 6.7 GM Inh (Albuterol Sulfate) 90 Mcg/Act Aer 2 Puff INH Q6H PRN Review of Systems Except as stated in HPI: all other systems reviewed are Neg General / Constitutional: No: Fever Eyes: No: Visual changes HENT: No: Headaches Cardiovascular: No: Chest Pain or Discomfort Respiratory: No: Shortness of Breath Gastrointestinal: No: Abdominal Pain Genitourinary: No: Dysuria Musculoskeletal: Positive: Myalgias Skin: No Rash Neurologic: No: Weakness Psychiatric: No: Depression Endocrine: No: Polydipsia Hematologic/Lymphatic: No: Easy Bruising Physical Exam Narrative GENERAL: SKIN: Warm and dry. HEAD: Atraumatic. Normocephalic. EYES: Pupils equal and round. MILD scleral icterus. No injection or drainage. ENT: No nasal bleeding or discharge. Mucous membranes pink and moist. NECK: Trachea midline. No JVD. CARDIOVASCULAR: Regular rate and rhythm. RESPIRATORY: No accessory muscle use. Clear to auscultation. Breath sounds equal bilaterally. GASTROINTESTINAL: Abdomen soft, non-tender, nondistended. MUSCULOSKELETAL: Extremities without clubbing, cyanosis, or edema. No obvious deformities. NEUROLOGICAL: Awake and alert. No obvious cranial nerve deficits. Motor grossly within normal limits. Five out of 5 muscle strength in the arms and legs. Normal speech. PSYCHIATRIC: Appropriate mood and affect; insight and judgment normal. Data Data Last Documented VS Orders Orders Complete Blood Count With Diff (07/08/17 03:09) Comprehensive Metabolic Panel (07/08/17 03:09) Retic Count (07/08/17 03:09) Urinalysis - C+S If Indicated (07/08/17 03:09) Chest, Single Ap (07/08/17 03:09) Ecg Monitoring (07/08/17 03:09) Iv Access Insert/Monitor (07/08/17 03:09) Oximetry (07/08/17 03:09) Ondansetron Inj (Zofran Inj) (07/08/17 03:15) Sodium Chloride 0.9% Flush (Ns Flush) (07/08/17 03:15) Sodium Chlor 0.9% 1000 Ml Inj (Ns 1000 M (07/08/17 03:09) Morphine Inj (Morphine Inj) (07/08/17 03:15) Ed Urine Pregnancytest Poc (07/08/17 03:09) Red Blood Cells (Rbc) (07/08/17 04:12) Blood Product Administration (07/08/17 04:12) Sodium Chlor 0.9% 250 Ml Inj (Ns 250 Ml (07/08/17 04:15) Diphenhydramine Inj (Benadryl Inj) (07/08/17 04:15) Acetaminophen (Tylenol) (07/08/17 04:15) Type And Screen (07/08/17 04:12) Hydromorphone Pf Inj (Dilaudid Pf Inj) (07/08/17 04:45) Sodium Chlor 0.9% 1000 Ml Inj (Ns 1000 M (07/08/17 04:45) Hydromorphone Pf Inj (Dilaudid Pf Inj) (07/08/17 06:30) Heparin Central Flush (Heparin Central F (07/08/17 10:00) Ed Discharge Order (07/08/17 09:52) Labs Laboratory Tests Test 07/08/17 03:31 White Blood Count 14.8 TH/MM3 Red Blood Count 2.06 MIL/MM3 Hemoglobin 6.1 GM/DL Hematocrit 17.9 % Mean Corpuscular Volume 86.8 FL Mean Corpuscular Hemoglobin 29.7 PG Mean Corpuscular Hemoglobin Concent 34.2 % Red Cell Distribution Width 21.0 % Platelet Count 488 TH/MM3 Mean Platelet Volume 7.9 FL Neutrophils (%) (Auto) 63.5 % Lymphocytes (%) (Auto) 18.8 % Monocytes (%) (Auto) 11.4 % Eosinophils (%) (Auto) 5.0 % Basophils (%) (Auto) 1.3 % Neutrophils # (Auto) 9.4 TH/MM3 Lymphocytes # (Auto) 2.8 TH/MM3 Monocytes # (Auto) 1.7 TH/MM3 Eosinophils # (Auto) 0.7 TH/MM3 Basophils # (Auto) 0.2 TH/MM3 CBC Comment AUTO DIFF Differential Total Cells Counted 100 Neutrophils % (Manual) 63 % Lymphocytes % 19 % Monocytes % 10 % Eosinophils % 5 % Basophils % 3 % Neutrophils # (Manual) 9.3 TH/MM3 Nucleated Red Blood Cells 2 /100 WBC Differential Comment FINAL DIFF MANUAL Atypical Lymphocytes % Platelet Estimate HIGH Platelet Morphology Comment NORMAL Polychromasia 6.5 % Basophilic Stippling FAINT Sickle Cells 1+ [place] Bodies PRESENT Reticulocyte Count 9.3 % Absolute Reticulocyte Count 192.4 MIL/L Urine Color YELLOW Urine Turbidity CLEAR Urine pH 6.5 Urine Specific [place] 1.011 Urine Protein TRACE mg/dL Urine Glucose (UA) NEG mg/dL Urine Ketones NEG mg/dL Urine Occult Blood MOD Urine Nitrite NEG Urine Bilirubin NEG Urine Urobilinogen 2.0 MG/DL Urine Leukocyte Esterase SMALL Urine RBC 9 /hpf Urine WBC 6 /hpf Urine Squamous Epithelial Cells 2 /hpf Urine Bacteria RARE /hpf Urine Mucus FEW /lpf Microscopic Urinalysis Comment CULT NOT INDICATED Blood Urea Nitrogen 6 MG/DL Creatinine 0.77 MG/DL Random Glucose 98 MG/DL Total Protein 7.8 GM/DL Albumin 4.2 GM/DL Calcium Level 8.6 MG/DL Alkaline Phosphatase 66 U/L Aspartate Amino Transf (AST/SGOT) 33 U/L Alanine Aminotransferase (ALT/SGPT) 19 U/L Total Bilirubin 1.9 MG/DL Sodium Level 141 MEQ/L Potassium Level 3.3 MEQ/L Chloride Level 109 MEQ/L Carbon Dioxide Level 22.9 MEQ/L Anion Gap 9 MEQ/L Estimat Glomerular Filtration Rate 109 ML/MIN MDM Medical Decision Making Medical Screen Exam Complete: Yes Emergency Medical Condition: Yes Medical Record Reviewed: Yes Differential Diagnosis SICKLE CELL PAIN CRISIS V SYMPTOMATIC ANEMIA Narrative Course PATIENT FOUND TO BE A LITTLE LOWER ON HB THAN USUAL, SO PATIENT TYPE AND CROSSED AND WILL BE GIVEN TRANSFUSION THEN D/C HOME. PATIENT WILL BE REFERRED TO [facility] FOR FURTHER CARE. HOWEVER NO MORE PAIN MEDICATION PRESCRIPTION WILL BE WRITTEN FOR PATIENT. Diagnosis Primary Impression: Sickle cell anemia with pain Referrals: [facility] TO ESTABLISH FURTHER OUTPATIENT CARE AND FOLLOW UP, THE ER IS NOT THE APPROPRIATE PLACE FOR REFILLS OF LORTAB. Disposition: 01 DISCHARGE HOME Condition: Stable Johnny Burt MD Jul 08, 2017 03:19
--- NOTE | 2017-07-08 03:49 | RADRPT ---
EXAM DATE/TIME: 07/08/2017 03:18 [place] COMPARISON: CHEST SINGLE AP, April 07, 2017, 1:41. INDICATIONS : Shortness of breath. MEDICAL HISTORY : Sickle Cell disease. Asthma. SURGICAL HISTORY : None. ENCOUNTER: Initial ACUITY: 1 day PAIN SCORE: 0/10 LOCATION: Bilateral chest FINDINGS: A single view of the chest demonstrates the lungs to be symmetrically aerated without evidence of mas s, infiltrate or effusion. The cardiomediastinal contours are unremarkable. Osseous structures are intact. [id number] is in place via right internal jugular approach with its tip in the superior ve na cava. CONCLUSION: 1. No acute cardiopulmonary disease. Obed Wagner MD on July 08, 2017 at 3:47 Board Certified Radiologist. This report was verified electronically.
[2017-07-08 04:01] LABS: AUTOMATED NEUTROPHIL # 9.4 TH/MM3 (1.8-7.7); BASOPHIL # 0.2 TH/MM3 (0-0.2); BASOPHIL % 1.3 % (0.0-2.0); EOSINOPHIL # 0.7 TH/MM3 (0-0.4); LYMPH % 18.8 % (9.0-44.0); LYMPHOCYTE # 2.8 TH/MM3 (1.0-4.8); MEAN CELL VOLUME 86.8 FL (80.0-100.0); MEAN CORPUSCULAR HEMOGLOBIN 29.7 PG (27.0-34.0); MEAN CORPUSCULAR HGB CONC 34.2 % (32.0-36.0); MONO % 11.4 % (0.0-8.0); NEUT % 63.5 % (16.0-70.0); PLATELET COUNT 488 TH/MM3 (150-450); RED BLOOD COUNT 2.06 MIL/MM3 (4.00-5.30); RETIC % 9.3 % (0.4-3.0); WHITE BLOOD COUNT 14.8 TH/MM3 (4.0-11.0)
[2017-07-08 04:02] LABS: HEMO FLAGS AUTO DIFF; REVIEW FLAG AUTO DIFF
[2017-07-08 04:05] LABS: HEMATOCRIT 17.9 % (35.0-46.0)
[2017-07-08] MEDS ORDERED: SODIUM CHLOR 0.9% 250 ML INJ 250 ML IV ONE (04:15)
[2017-07-08] MEDS ORDERED: diphenhydrAMINE HCL 50 MG/ML VIAL IV PUSH ONE (04:15)
[2017-07-08] MEDS ORDERED: ACETAMINOPHEN 325 MG TAB PO PRN (04:15)
[2017-07-08 04:20] LABS: BACTERIA, URINE RARE /hpf; BLOOD, URINE MOD (NEG); COMMENT (UR) CULT NOT INDICATED; CULTURE IF INDICATED CULT NOT INDICATED; GLUCOSE,URINE NEG (NEG); KETONE, URINE NEG (NEG); MUCUS URINE FEW /lpf (OCC); NITRITE,URINE NEG (NEG); PH, URINE 6.5 (5.0-8.5); SQUAMOUS EPITHELIAL CELL URINE 2 /hpf (0-5); URINE COLOR YELLOW (YELLW/STRAW)
[2017-07-08 04:32] LABS: ALT (GPT) 19 U/L (10-53); ANION GAP 9 MEQ/L (5-15); AST (GOT) 33 U/L (15-37); BICARBONATE 22.9 MEQ/L (21.0-32.0); BLOOD UREA NITROGEN 6 MG/DL (7-18); CHLORIDE 109 MEQ/L (98-107); GLOMERULAR FILTRATION RATE 109 ML/MIN (>89); POTASSIUM 3.3 MEQ/L (3.5-5.1); SODIUM (NA) 141 MEQ/L (136-145)
[2017-07-08 04:35] LABS: ALKALINE PHOSPHATASE 66 U/L (45-117); TOTAL BILIRUBIN ADULT 1.9 MG/DL (0.2-1.0)
[2017-07-08] MEDS ORDERED: HYDROmorphone HCL PF 1 MG/ML VIAL IV PUSH ONE ×2 (04:45→06:30)
[2017-07-08 04:59] LABS: BASOPHILS 3 % (0-2); CORRECTED NUCLEATED RBC 2 /100 WBC (0-0); EOSINOPHILS 5 % (0-4); NEUTROPHIL # MANUAL DIFF 9.3 TH/MM3 (1.8-7.7); POLYS (SEG NEUTROPHILS) 63 % (16-70); SCAN/DIFF FINAL DIFF MANUAL; WBC DIFF SAMPLE 100
[2017-07-08 05:00] LABS: PLATELET ESTIMATE SMEAR HIGH (NORMAL); PLATELET MORPHOLOGY NORMAL (NORMAL)
[2017-07-08 05:01] LABS: HOWELL-JOLLY BODIES PRESENT (NONE SEEN); SICKLE CELLS 1+ (NORMAL)
[2017-07-08 05:02] LABS: POLYCHROMASIA 6.5 % (0.0-1.9)
[2017-07-08] MEDS: SODIUM CHLORIDE 0.9% FLUSH 10 ML FLUSH IVF PRN ×2 (07:07→10:02)
== END 2017-07-08 10:10 | disposition home or self-care (01) ==
LOC: NEPC 02:55
DX: D57.00 Hb-SS disease with crisis, unspecified (principal)
CPT/HCPCS: 36430; 71010; 80053; 81001; 84703; 85007; 85027; 85044; 86850; 86900; 86901; 86920; 86922; 96361; 96374; 96375; 96376; 99284; J1170; J1200; J1642; J2270; J2405; J7030; J7050; P9016

== ENCOUNTER 2017-08-04 09:44 | Inpatient (IN) | payer MEDICAID ==
[~2017-08-04] VITALS: Ht 152.4 cm; Wt 72.4 kg
[2017-08-04] VITALS (14 sets, daily range): BP systolic 101–132; BP diastolic 46–81; PULSE 83–121; RESP 15–24; TEMP 97.7–98.7; O2SAT 94–100
[~2017-08-04 09:44] MED LIST changes: -AMBI5TAB PO; -SOLU250I IV PUSH
[2017-08-04] MEDS ORDERED: SODIUM CHLOR 0.9% 1000 ML INJ 1,000 ML IV ONE (11:01)
--- NOTE | 2017-08-04 11:12 | PD ---
HPI . Sickle Cell Chief Complaint: Sickle Cell Time Seen by Provider: 11:05 Travel History International Travel<30 days: No Contact w/Intl Traveler<30days: No Traveled to known affect area: No History of Present Illness HPI 26 year old female presents to the emergency department for evaluation of sickle cell pain. Patient states the pain has been persistent x 3 days. Patient states she is scheduled to start her menstrual cycle tomorrow and she typically has painful flare ups surround her cycle. Patient denies any fever, malaise, shortness breath, chest pain, nausea, vomiting, diarrhea, abdominal pain. Patient states the pain is generalized mostly in her large joints. Patient has history of asthma and is currently out of her albuterol inhaler however hasn't felt like she needed it lately. PFSH Past Medical History Anemia: Yes Arthritis: No Asthma: Yes Autoimmune Disease: No Blood Disorders: Yes Anxiety: Yes Depression: No Heart Rhythm Problems: No Cancer: No High Cholesterol: No Chemotherapy: No Chest Pain: Yes Congestive Heart Failure: Yes COPD: No Cerebrovascular Accident: No Cystic Fibrosis: No Diabetes: No Diminished Hearing: No Endocrine: No Gastrointestinal Disorders: No GERD: No Glaucoma: No Genitourinary: No Headaches: Yes Hepatitis: No Hiatal Hernia: No Heparin Induced Thrombocytopen: No Hypertension: No Immune Disorder: No Implanted Vascular Access Dvce: Yes Kidney Stones: No Musculoskeletal: No Neurologic: Yes Psychiatric: Yes Reproductive: No Respiratory: Yes (Asthma) Immunizations Current: Yes Migraines: Yes Myocardial Infarction: No Pneumonia: Yes Radiation Therapy: No Renal Failure: No Seizures: No Sickle Cell Disease: Yes Sleep Apnea: No Thyroid Disease: No Ulcer: No Tetanus Vaccination: < 5 Years PNEUMOCCOCAL Vaccine (Year): 1 ?: Not : 1 Para: 1 Miscarriage: 0 : 0 Tubal Ligation: Yes Past Surgical History Abdominal Surgery: No AICD: No Appendectomy: No Arteriovenous Shunt: No Body Medical Devices: R Chest Infusaport (3RD) Cardiac Surgery: No Section: Yes (X 1) Cholecystectomy: Yes Ear Surgery: No Endocrine Surgery: No Eye Surgery: No Genitourinary Surgery: No Gynecologic Surgery: Yes (c section) Hysterectomy: No Insulin Pump: No Joint Replacement: No Neurologic Surgery: No Oral Surgery: No Pacemaker: No Thoracic Surgery: No Other Surgery: Yes (PORTX3 PLACED AND REMOVED, gallstones) Social History Alcohol Use: No Tobacco Use: No Substance Use: No Allergies-Medications (Allergen,Severity, Reaction): Coded Allergies: oxycodone (Unverified Adverse Reaction, Severe, Nausea/Vomiting, 08/04/17) AND ITCHING *MDRO Multi-Drug Resistant Organism (Verified Adverse Reaction, Unknown, Cleared 02/08/15, 08/04/17) MRSA (Chest Wound) - 02/2012 MRSA PCR Screen negative 02/06/15 and 02/08/15. Cleared per Infection Control Reported Meds & Prescriptions Reported Meds & Active Scripts Active Lisinopril 5 Mg Tab 2.5 Mg PO DAILY Hydrea (Hydroxyurea) 500 Mg Cap 500 Mg PO DAILY Epinephrine Inj 1 Mg/Ml Inj 0.3 Mg SQ ONCE PRN Give with any signs of respiratory distress. Epinephrine Inj 1 Mg/Ml Inj 0.3 Mg IV PUSH ONCE PRN Reported Folic Acid 400 Mcg Tab 400 Mcg PO DAILY Proventil Hfa 6.7 GM Inh (Albuterol Sulfate) 90 Mcg/Act Aer 2 Puff INH Q6H PRN Review of Systems Except as stated in HPI: all other systems reviewed are Neg Physical Exam Narrative GENERAL: Well-nourished, well-developed 26-year-old female patient in no acute distress. Nontoxic appearing. SKIN: Focused skin assessment warm/dry. HEAD: Normocephalic. Atraumatic. EYES: No scleral icterus. No injection or drainage. NECK: Supple, trachea midline. No JVD or lymphadenopathy. CARDIOVASCULAR: Regular rate and rhythm without murmurs, gallops, or rubs. RESPIRATORY: Breath sounds equal bilaterally. No accessory muscle use. GASTROINTESTINAL: Abdomen soft, non-tender, nondistended. MUSCULOSKELETAL: No cyanosis, or edema. BACK: Nontender without obvious deformity. No CVA tenderness. Data Data Last Documented VS Vital Signs Date Time Temp Pulse Resp B/P (MAP) Pulse Ox O2 Delivery O2 Flow Rate FiO2 08/04/17 12:26 18 98 Room Air 08/04/17 10:07 98.7 101 Orders Orders Basic Metabolic Panel (Bmp) (08/04/17 11:01) Complete Blood Count With Diff (08/04/17 11:01) Retic Count (08/04/17 11:01) Urinalysis - C+S If Indicated (08/04/17 11:01) Ecg Monitoring (08/04/17 11:01) Iv Access Insert/Monitor (08/04/17 11:01) Oximetry (08/04/17 11:01) Sodium Chloride 0.9% Flush (Ns Flush) (08/04/17 11:15) Sodium Chlor 0.9% 1000 Ml Inj (Ns 1000 M (08/04/17 11:01) Diphenhydramine Inj (Benadryl Inj) (08/04/17 11:15) Chest, Single Ap (08/04/17 11:03) Hydromorphone Pf Inj (Dilaudid Pf Inj) (08/04/17 12:00) Type And Screen (08/04/17 12:48) Red Blood Cells (Rbc) (08/04/17 12:48) Blood Product Administration (08/04/17 12:48) Sodium Chlor 0.9% 250 Ml Inj (Ns 250 Ml (08/04/17 13:00) Hydromorphone Pf Inj (Dilaudid Pf Inj) (08/04/17 13:15) Diphenhydramine Inj (Benadryl Inj) (08/04/17 13:15) Admit Order (Ed Use Only) (08/04/17 13:24) Labs Laboratory Tests Test 08/04/17 11:16 White Blood Count 16.0 TH/MM3 Red Blood Count 2.30 MIL/MM3 Hemoglobin 6.4 GM/DL Hematocrit 19.4 % Mean Corpuscular Volume 84.0 FL Mean Corpuscular Hemoglobin 27.6 PG Mean Corpuscular Hemoglobin Concent 32.8 % Red Cell Distribution Width 18.8 % Platelet Count 455 TH/MM3 Mean Platelet Volume 8.4 FL Neutrophils (%) (Auto) 57.3 % Lymphocytes (%) (Auto) 28.8 % Monocytes (%) (Auto) 10.0 % Eosinophils (%) (Auto) 2.5 % Basophils (%) (Auto) 1.4 % Neutrophils # (Auto) 9.2 TH/MM3 Lymphocytes # (Auto) 4.6 TH/MM3 Monocytes # (Auto) 1.6 TH/MM3 Eosinophils # (Auto) 0.4 TH/MM3 Basophils # (Auto) 0.2 TH/MM3 CBC Comment AUTO DIFF Differential Total Cells Counted 100 Neutrophils % (Manual) 60 % Band Neutrophils % 7 % Lymphocytes % 18 % Monocytes % 12 % Eosinophils % 1 % Neutrophils # (Manual) 11.0 TH/MM3 Metamyelocytes 2 % Nucleated Red Blood Cells 1 /100 WBC Differential Comment FINAL DIFF MANUAL Platelet Estimate HIGH Platelet Morphology Comment NORMAL Polychromasia 2.3 % Sickle Cells 1+ Target Cells 1+ Red Cell Morphology Comment Reticulocyte Count 7.3 % Absolute Reticulocyte Count 168.4 MIL/L Urine Color YELLOW Urine Turbidity CLEAR Urine pH 6.0 Urine Specific [place] 1.012 Urine Protein 30 mg/dL Urine Glucose (UA) NEG mg/dL Urine Ketones NEG mg/dL Urine Occult Blood TRACE Urine Nitrite NEG Urine Bilirubin NEG Urine Urobilinogen 2.0 MG/DL Urine Leukocyte Esterase NEG Urine RBC LESS THAN 1 /hpf Urine WBC 1 /hpf Urine Squamous Epithelial Cells 1 /hpf Urine Mucus FEW /lpf Microscopic Urinalysis Comment CULT NOT INDICATED Blood Urea Nitrogen 4 MG/DL Creatinine 0.66 MG/DL Random Glucose 89 MG/DL Calcium Level 8.6 MG/DL Sodium Level 140 MEQ/L Potassium Level 3.6 MEQ/L Chloride Level 110 MEQ/L Carbon Dioxide Level 19.2 MEQ/L Anion Gap 11 MEQ/L Estimat Glomerular Filtration Rate 130 ML/MIN MDM Medical Decision Making Medical Screen Exam Complete: Yes Emergency Medical Condition: Yes Differential Diagnosis Differential diagnosis includes but not limited to sickle cell pain, joint pain , sickle cell crisis, anemia, generalized pain Narrative Course 26-year-old female presents emergency department for evaluation of sickle-cell pain 3 days. She was seen at our facility last month when she was menstruating and had similar symptoms. Patient was evaluated at that time and found to be anemic. Patient was given a blood transfusion at that time and discharged home. Today chest post accessed and CBC, CMP, reticulocyte count, UA , chest x-ray ordered and pending. 1 L bolus normal saline, 25 mg IV Benadryl, 1mg Dilaudid ordered. CBC today shows anemia with HGB 6.4. 2 RBC transfusion ordered. Patient will be admitting at this time for sickle cell pain and anemia. CLAUDE called and Dr Alcaraz accepted admission. Dr Alcaraz requested the patient to be admitted to [facility]. Patient admitted to [facility] at this time. Laboratory Tests Test 08/04/17 11:16 White Blood Count 16.0 TH/MM3 Red Blood Count 2.30 MIL/MM3 Hemoglobin 6.4 GM/DL Hematocrit 19.4 % Mean Corpuscular Volume 84.0 FL Mean Corpuscular Hemoglobin 27.6 PG Mean Corpuscular Hemoglobin Concent 32.8 % Red Cell Distribution Width 18.8 % Platelet Count 455 TH/MM3 Mean Platelet Volume 8.4 FL Neutrophils (%) (Auto) 57.3 % Lymphocytes (%) (Auto) 28.8 % Monocytes (%) (Auto) 10.0 % Eosinophils (%) (Auto) 2.5 % Basophils (%) (Auto) 1.4 % Neutrophils # (Auto) 9.2 TH/MM3 Lymphocytes # (Auto) 4.6 TH/MM3 Monocytes # (Auto) 1.6 TH/MM3 Eosinophils # (Auto) 0.4 TH/MM3 Basophils # (Auto) 0.2 TH/MM3 CBC Comment AUTO DIFF Reticulocyte Count 7.3 % Absolute Reticulocyte Count 168.4 MIL/L Urine Color YELLOW Urine Turbidity CLEAR Urine pH 6.0 Urine Specific [place] 1.012 Urine Protein 30 mg/dL Urine Glucose (UA) NEG mg/dL Urine Ketones NEG mg/dL Urine Occult Blood TRACE Urine Nitrite NEG Urine Bilirubin NEG Urine Urobilinogen 2.0 MG/DL Urine Leukocyte Esterase NEG Urine RBC LESS THAN 1 /hpf Urine WBC 1 /hpf Urine Squamous Epithelial Cells 1 /hpf Urine Mucus FEW /lpf Microscopic Urinalysis Comment CULT NOT INDICATED Blood Urea Nitrogen 4 MG/DL Creatinine 0.66 MG/DL Random Glucose 89 MG/DL Calcium Level 8.6 MG/DL Sodium Level 140 MEQ/L Potassium Level 3.6 MEQ/L Chloride Level 110 MEQ/L Carbon Dioxide Level 19.2 MEQ/L Anion Gap 11 MEQ/L Estimat Glomerular Filtration Rate 130 ML/MIN Diagnosis Primary Impression: Anemia Qualified Codes: D64.9 - Anemia, unspecified Additional Impressions: Generalized pain Sickle cell crisis Admitting Information Admitting Physician Requests: Admit Lulu Cao Aug 04, 2017 11:12
[2017-08-04] MEDS ORDERED: SODIUM CHLORIDE 0.9% FLUSH 10 ML FLUSH IVF PRN (11:15)
[2017-08-04] MEDS ORDERED: diphenhydrAMINE HCL 50 MG/ML VIAL IV PUSH ONE ×2 (11:15→13:15)
--- NOTE | 2017-08-04 11:33 | RADRPT ---
EXAM DATE/TIME: 08/04/2017 11:13 [facility] COMPARISON: CHEST SINGLE AP, July 08, 2017, 3:18. INDICATIONS : Chest pain. MEDICAL HISTORY : Hypertension. Sickle Cell disease. A-fib. SURGICAL HISTORY : Port placement. ENCOUNTER: Initial ACUITY: 1 day PAIN SCORE: 3/10 LOCATION: chest midline. FINDINGS: A single view of the chest demonstrates the lungs to be symmetrically aerated without evidence of mas s, infiltrate or effusion. [id number] in good position The cardiomediastinal contours are unremar kable. Osseous structures are intact. CONCLUSION: No acute disease. Madi Diego MD FACR on August 04, 2017 at 11:31 Board Certified Radiologist. This report was verified electronically.
[2017-08-04] MEDS ORDERED: HYDROmorphone HCL PF 1 MG/ML VIAL IVS ONE ×2 (12:00→13:15)
[2017-08-04 12:32] LABS: AUTOMATED NEUTROPHIL # 9.2 TH/MM3 (1.8-7.7); BASOPHIL # 0.2 TH/MM3 (0-0.2); BASOPHIL % 1.4 % (0.0-2.0); EOSINOPHIL # 0.4 TH/MM3 (0-0.4); EOSINOPHIL % 2.5 % (0.0-4.0); LYMPH % 28.8 % (9.0-44.0); LYMPHOCYTE # 4.6 TH/MM3 (1.0-4.8); MEAN CORPUSCULAR HEMOGLOBIN 27.6 PG (27.0-34.0); MEAN CORPUSCULAR HGB CONC 32.8 % (32.0-36.0); NEUT % 57.3 % (16.0-70.0); PLATELET COUNT 455 TH/MM3 (150-450); RED CELL DISTRIBUTION WIDTH 18.8 % (11.6-17.2); RETIC % 7.3 % (0.4-3.0)
[2017-08-04 12:35] LABS: HEMO FLAGS AUTO DIFF; REVIEW FLAG FINAL
[2017-08-04 12:37] LABS: HEMATOCRIT 19.4 % (35.0-46.0)
[2017-08-04 12:39] LABS: BLOOD, URINE TRACE (NEG); COMMENT (UR) CULT NOT INDICATED; CULTURE IF INDICATED CULT NOT INDICATED; GLUCOSE,URINE NEG (NEG); KETONE, URINE NEG (NEG); MUCUS URINE FEW /lpf (OCC); NITRITE,URINE NEG (NEG); SQUAMOUS EPITHELIAL CELL URINE 1 /hpf (0-5); URINE COLOR YELLOW (YELLW/STRAW)
[2017-08-04 12:43] LABS: BICARBONATE 19.2 MEQ/L (21.0-32.0); POTASSIUM 3.6 MEQ/L (3.5-5.1)
[2017-08-04] MEDS ORDERED: SODIUM CHLOR 0.9% 250 ML INJ 250 ML IV ONE (13:00)
[2017-08-04 13:11] LABS: BANDS 7 % (0-6); CORRECTED NUCLEATED RBC 1 /100 WBC (0-0); EOSINOPHILS 1 % (0-4); METAMYELOCYTES 2 % (0-1); PLATELET ESTIMATE SMEAR HIGH (NORMAL); PLATELET MORPHOLOGY NORMAL (NORMAL); POLYS (SEG NEUTROPHILS) 60 % (16-70); SCAN/DIFF FINAL DIFF MANUAL; SICKLE CELLS 1+ (NORMAL); TARGET CELLS 1+ (NORMAL); WBC DIFF SAMPLE 100
[2017-08-04 13:12] LABS: POLYCHROMASIA 2.3 % (0.0-1.9)
[2017-08-04] MEDS ORDERED: BISACODYL 10 MG SUPP RECTAL PRN (13:30)
[2017-08-04] MEDS ORDERED: NALOXONE HCL 0.4 MG/ML AMP IV PUSH PRN (13:30)
[2017-08-04] MEDS ORDERED: LACTULOSE SYRUP 20 GM/30 ML CUP PO PRN (13:30)
[2017-08-04] MEDS ORDERED: ACETAMINOPHEN 325 MG TAB PO PRN (13:30)
[2017-08-04] MEDS ORDERED: MAGNESIUM HYDROXIDE SUSP 30 ML CUP PO PRN (13:30)
[2017-08-04] MEDS ORDERED: SENNOSIDES 8.6 MG TAB PO PRN (13:30)
[2017-08-04] MEDS ORDERED: SODIUM CHLORIDE 0.9% FLUSH 10 ML FLUSH IV FLUSH PRN (13:30)
[2017-08-04] MEDS ORDERED: RESP: ALBUTEROL 2.5 MG/IPRATROPIUM 0.5 MG NEB (PRN) NEB (14:30)
--- NOTE | 2017-08-04 14:30 | HHI.HP ---
[facility] Primary Care Physician No Primary Care Physician Admission Diagnosis anemia, sickle cell Diagnoses: Travel History International Travel<30 Days: No Contact w/Intl Traveler <30 Da: No Traveled to Known Affected Are: No History of Present Illness This is a pleasant 26 year-old female with past medical history of sickle cell disease and cardiomyopathy who presents to the ER complaining of generalized diffuse pain beginning 5 days ago. The pain is typical for her sickle cell pain crises. The patient states she had been trying to deal with it at home but the pain became too severe and so she presented to the ER. Provocative factors included movement. No palliative factors. Symptoms severe. Patient also complains of mild shortness of breath. She does have a history of asthma as well. Denies wheezing. Complains of chills but no fever. No dysuria. No cough. She currently does not follow with a director of religious life but has established with a primary care physician who is referring her to one. Past Family Social History Past Medical History Sickle cell anemia Iron overload Cardiomyopathy with EF of 40% Asthma Allergies: Coded Allergies: oxycodone (Unverified Adverse Reaction, Severe, Nausea/Vomiting, 08/04/17) AND ITCHING *MDRO Multi-Drug Resistant Organism (Verified Adverse Reaction, Unknown, Cleared 02/08/15, 08/04/17) MRSA (Chest Wound) - 02/2012 MRSA PCR Screen negative 02/06/15 and 02/08/15. Cleared per Infection Control Family History Reviewed and noncontributory Social History Denies alcohol tobacco or drug use Physical Exam Vital Signs Vital Signs Date Time Temp Pulse Resp B/P (MAP) Pulse Ox O2 Delivery O2 Flow Rate FiO2 08/04/17 12:26 18 98 Room Air 08/04/17 10:07 98.7 101 24 127/81 (96) 96 Room Air 08/04/17 10:00 99 24 99 Room Air 08/04/17 09:45 98.7 121 20 132/81 (98) 98 Room Air Physical Exam GENERAL: This is a well-nourished, well-developed patient, in no apparent distress. SKIN: No rashes, ecchymoses or lesions. Cool and dry. HEAD: Atraumatic. Normocephalic. EYES: Pupils equal round and reactive. Extraocular motions intact. No scleral icterus. No injection or drainage. NECK: Trachea midline. No JVD or lymphadenopathy. Supple, nontender, no meningeal signs. CARDIOVASCULAR: Regular rate and rhythm without murmurs, gallops, or rubs. RESPIRATORY: Clear to auscultation. Breath sounds equal bilaterally. No wheezes , rales, or rhonchi. GASTROINTESTINAL: Abdomen soft, non-tender, nondistended. MUSCULOSKELETAL: Extremities without clubbing, cyanosis, or edema. No joint tenderness, effusion, or edema noted. NEUROLOGICAL: Awake and alert. Motor and sensory grossly within normal limits. Normal speech. Laboratory Laboratory Tests Test 08/04/17 11:16 White Blood Count 16.0 Red Blood Count 2.30 Hemoglobin 6.4 Hematocrit 19.4 Mean Corpuscular Volume 84.0 Mean Corpuscular Hemoglobin 27.6 Mean Corpuscular Hemoglobin Concent 32.8 Red Cell Distribution Width 18.8 Platelet Count 455 Mean Platelet Volume 8.4 Neutrophils (%) (Auto) 57.3 Lymphocytes (%) (Auto) 28.8 Monocytes (%) (Auto) 10.0 Eosinophils (%) (Auto) 2.5 Basophils (%) (Auto) 1.4 Neutrophils # (Auto) 9.2 Lymphocytes # (Auto) 4.6 Monocytes # (Auto) 1.6 Eosinophils # (Auto) 0.4 Basophils # (Auto) 0.2 CBC Comment AUTO DIFF Differential Total Cells Counted 100 Neutrophils % (Manual) 60 Band Neutrophils % 7 Lymphocytes % 18 Monocytes % 12 Eosinophils % 1 Neutrophils # (Manual) 11.0 Metamyelocytes 2 Nucleated Red Blood Cells 1 Differential Comment FINAL DIFF MANUAL Platelet Estimate HIGH Platelet Morphology Comment NORMAL Polychromasia 2.3 Sickle Cells 1+ Target Cells 1+ Red Cell Morphology Comment Reticulocyte Count 7.3 Absolute Reticulocyte Count 168.4 Urine Color YELLOW Urine Turbidity CLEAR Urine pH 6.0 Urine Specific [place] 1.012 Urine Protein 30 Urine Glucose (UA) NEG Urine Ketones NEG Urine Occult Blood TRACE Urine Nitrite NEG Urine Bilirubin NEG Urine Urobilinogen 2.0 Urine Leukocyte Esterase NEG Urine RBC LESS THAN 1 Urine WBC 1 Urine Squamous Epithelial Cells 1 Urine Mucus FEW Microscopic Urinalysis Comment CULT NOT INDICATED Blood Urea Nitrogen 4 Creatinine 0.66 Random Glucose 89 Calcium Level 8.6 Sodium Level 140 Potassium Level 3.6 Chloride Level 110 Carbon Dioxide Level 19.2 Anion Gap 11 Estimat Glomerular Filtration Rate 130 Result Diagram: 08/04/17 1116 08/04/17 1116 Imaging Last Impressions Chest X-Ray 08/04/17 1103 Signed Impressions: Service Date/Time: Friday, August 04, 2017 11:13 - CONCLUSION: No acute disease. Madi Diego MD FACR Capmerei VTE Risk Assessment Caprini VTE Risk Assessment: No/Low Risk (score <= 1) Caprini Risk Assessment Model Point Value = 1 Point Value = 2 Point Value = 3 Point Value = 5 Age 41-60 Minor surgery BMI > 25 kg/m2 Swollen legs Varicose veins or History of unexplained or recurrent spontaneous Oral contraceptives or hormone replacement Sepsis (< 1 month) Serious lung disease, including pneumonia (< 1 month) Abnormal pulmonary function Acute myocardial infarction Congestive heart failure (< 1 month) History of inflammatory bowel disease Medical patient at bed rest Age 61-74 Arthroscopic surgery Major open surgery (> 45 min) Laparoscopic surgery (> 45 min) Malignancy Confined to bed (> 72 hours) Immobilizing plaster cast Central venous access Age >= 75 History of VTE Family history of VTE Factor V Leiden Prothrombin [id number] Lupus anticoagulant Anticardiolipin antibodies Elevated serum homocysteine Heparin-induced thrombocytopenia Other congenital or acquired thrombophilia Stroke (< 1 month) Elective arthroplasty Hip, pelvis, or leg fracture Acute spinal cord injury (< 1 month) Prophylaxis Regimen Total Risk Factor Score Risk Level Prophylaxis Regimen 0-1 Low Early ambulation 2 Moderate Order ONE of the following: *Sequential Compression Device (SCD) *Heparin 5000 units SQ BID 3-4 Higher Order ONE of the following medications: *Heparin 5000 units SQ TID *Enoxaparin/Lovenox 40 mg SQ daily (WT < 150 kg, CrCl > 30 mL/min) *Enoxaparin/Lovenox 30 mg SQ daily (WT < 150 kg, CrCl > 10-29 mL/min) *Enoxaparin/Lovenox 30 mg SQ BID (WT < 150 kg, CrCl > 30 mL/min) AND/OR *Sequential Compression Device (SCD) 5 or more Highest Order ONE of the following medications: *Heparin 5000 units SQ TID (Preferred with Epidurals) *Enoxaparin/Lovenox 40 mg SQ daily (WT < 150 kg, CrCl > 30 mL/min) *Enoxaparin/Lovenox 30 mg SQ daily (WT < 150 kg, CrCl > 10-29 mL/min) *Enoxaparin/Lovenox 30 mg SQ BID (WT < 150 kg, CrCl > 30 mL/min) AND *Sequential Compression Device (SCD) Assessment and Plan Problem List: (1) Sickle cell disease with crisis ICD Code: D57.00 - Hb-SS disease with crisis Status: Acute (2) Asthma ICD Code: J45.909 - Asthma Status: Chronic (3) Cardiomyopathy ICD Code: I42.9 - Cardiomyopathy Status: Chronic (4) Anemia ICD Code: D64.9 - Anemia Status: Chronic (5) Iron overload due to repeated red blood cell transfusions ICD Code: E83.111 - Hemochromatosis due to repeated red blood cell transfusions Status: Acute Assessment and Plan -Sickle cell disease with acute vaso-occlusive pain crisis. Admit. Will give gentle IV fluids for 24 hours avoid fluid overload in this patient with known cardiomyopathy. Pain control with IV Dilaudid and Benadryl for pruritus. Continue hydroxyurea and full of gas and. -Sickle cell anemia. Hemoglobin is 6 somewhat lower than her baseline of 7-8. 2 units packed red blood cells ordered. Repeat CBC in the morning. -Shortness of breath. No evidence for CHF or asthma exacerbation. We'll give DuoNeb scheduled and when necessary. Oxygen via nasal cannula as needed. -Cardiomyopathy. Last 2-D echo in November 2015 shows left ventricular ejection fraction of 40-45% with diffuse hypokinesis. Currently in good fluid balance. We'll start patient on Coreg and will resume her lisinopril blood pressure tolerates the Coreg. -DVT prophylaxis with Lovenox 40 mg subcutaneous daily. Problem Qualifiers (1) Anemia: Qualified Codes: D64.9 - Anemia, unspecified Verito Alcaraz MD Aug 04, 2017 14:30
--- NOTE | 2017-08-04 14:30 | PD ---
Data Data Last Documented VS Vital Signs Date Time Temp Pulse Resp B/P (MAP) Pulse Ox O2 Delivery O2 Flow Rate FiO2 08/04/17 12:26 18 98 Room Air 08/04/17 10:07 98.7 101 Orders Orders Basic Metabolic Panel (Bmp) (08/04/17 11:01) Complete Blood Count With Diff (08/04/17 11:01) Retic Count (08/04/17 11:01) Urinalysis - C+S If Indicated (08/04/17 11:01) Ecg Monitoring (08/04/17 11:01) Iv Access Insert/Monitor (08/04/17 11:01) Oximetry (08/04/17 11:01) Sodium Chloride 0.9% Flush (Ns Flush) (08/04/17 11:15) Sodium Chlor 0.9% 1000 Ml Inj (Ns 1000 M (08/04/17 11:01) Diphenhydramine Inj (Benadryl Inj) (08/04/17 11:15) Chest, Single Ap (08/04/17 11:03) Hydromorphone Pf Inj (Dilaudid Pf Inj) (08/04/17 12:00) Type And Screen (08/04/17 12:48) Red Blood Cells (Rbc) (08/04/17 12:48) Blood Product Administration (08/04/17 12:48) Sodium Chlor 0.9% 250 Ml Inj (Ns 250 Ml (08/04/17 13:00) Hydromorphone Pf Inj (Dilaudid Pf Inj) (08/04/17 13:15) Diphenhydramine Inj (Benadryl Inj) (08/04/17 13:15) Admit Order (Ed Use Only) (08/04/17 13:24) Labs Laboratory Tests Test 08/04/17 11:16 White Blood Count 16.0 TH/MM3 Red Blood Count 2.30 MIL/MM3 Hemoglobin 6.4 GM/DL Hematocrit 19.4 % Mean Corpuscular Volume 84.0 FL Mean Corpuscular Hemoglobin 27.6 PG Mean Corpuscular Hemoglobin Concent 32.8 % Red Cell Distribution Width 18.8 % Platelet Count 455 TH/MM3 Mean Platelet Volume 8.4 FL Neutrophils (%) (Auto) 57.3 % Lymphocytes (%) (Auto) 28.8 % Monocytes (%) (Auto) 10.0 % Eosinophils (%) (Auto) 2.5 % Basophils (%) (Auto) 1.4 % Neutrophils # (Auto) 9.2 TH/MM3 Lymphocytes # (Auto) 4.6 TH/MM3 Monocytes # (Auto) 1.6 TH/MM3 Eosinophils # (Auto) 0.4 TH/MM3 Basophils # (Auto) 0.2 TH/MM3 CBC Comment AUTO DIFF Differential Total Cells Counted 100 Neutrophils % (Manual) 60 % Band Neutrophils % 7 % Lymphocytes % 18 % Monocytes % 12 % Eosinophils % 1 % Neutrophils # (Manual) 11.0 TH/MM3 Metamyelocytes 2 % Nucleated Red Blood Cells 1 /100 WBC Differential Comment FINAL DIFF MANUAL Platelet Estimate HIGH Platelet Morphology Comment NORMAL Polychromasia 2.3 % Sickle Cells 1+ Target Cells 1+ Red Cell Morphology Comment Reticulocyte Count 7.3 % Absolute Reticulocyte Count 168.4 MIL/L Urine Color YELLOW Urine Turbidity CLEAR Urine pH 6.0 Urine Specific [place] 1.012 Urine Protein 30 mg/dL Urine Glucose (UA) NEG mg/dL Urine Ketones NEG mg/dL Urine Occult Blood TRACE Urine Nitrite NEG Urine Bilirubin NEG Urine Urobilinogen 2.0 MG/DL Urine Leukocyte Esterase NEG Urine RBC LESS THAN 1 /hpf Urine WBC 1 /hpf Urine Squamous Epithelial Cells 1 /hpf Urine Mucus FEW /lpf Microscopic Urinalysis Comment CULT NOT INDICATED Blood Urea Nitrogen 4 MG/DL Creatinine 0.66 MG/DL Random Glucose 89 MG/DL Calcium Level 8.6 MG/DL Sodium Level 140 MEQ/L Potassium Level 3.6 MEQ/L Chloride Level 110 MEQ/L Carbon Dioxide Level 19.2 MEQ/L Anion Gap 11 MEQ/L Estimat Glomerular Filtration Rate 130 ML/MIN [facility] Supervised Visit with DAISY: Yes Narrative Course The history, exam, and medical decision-making in the associated mid-level provider note were completed with my assistance. I reviewed and agree with the findings presented. I attest that I had a [id number] encounter with the patient on the same day, and personally performed and documented my assessment and findings in the medical record. *My assessment and Findings: 26 year-old woman, sickle cell disease, her marked anemia. Symptoms usually worse when she gets her menstrual cycle. Pain uncontrolled in the ED, needs transfusion. No history of reported hemachromatosis or iron overload. 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 Recommend admission for simple transfusion, pain control. Diagnosis Primary Impression: Anemia Qualified Codes: D64.9 - Anemia, unspecified Additional Impressions: Sickle cell crisis Generalized pain Kalin Pal MD Aug 04, 2017 14:30
[2017-08-04] MEDS: SODIUM CHLOR 0.9% 1000 ML INJ 1,000 ML IV SCH (15:29)
[2017-08-04] MEDS: ENOXAPARIN SODIUM 40 MG/0.4 ML SYRINGE SQ SCH (15:29)
[2017-08-04] MEDS: RESP: ALBUTEROL 2.5 MG/IPRATROPIUM 0.5 MG NEB (SCH) NEB ×2 (15:55→19:14)
[2017-08-04] MEDS: HYDROmorphone HCL PF 1 MG/ML VIAL IV PUSH PRN (16:44)
[2017-08-04] MEDS: diphenhydrAMINE HCL 25 MG CAP PO PRN ×2 (16:46→23:24)
[2017-08-04] MEDS: HYDROmorphone HCL PF 2 MG/ML VIAL IV PUSH PRN ×2 (19:57→23:25)
[2017-08-04] MEDS: SODIUM CHLORIDE 0.9% FLUSH 10 ML FLUSH IV FLUSH SCH (21:00)
[2017-08-04] MEDS: DOCUSATE SODIUM 50 MG/SENNA 8.6 MG TAB PO SCH (21:02)
[2017-08-04] MEDS: CARVEDILOL 3.125 MG TAB PO SCH (21:02)
[2017-08-05] VITALS (7 sets, daily range): BP systolic 108–117; BP diastolic 66–80; PULSE 68–99; RESP 14–21; TEMP 97.7–98.3; O2SAT 97–100
[2017-08-05] MEDS: HYDROmorphone HCL PF 2 MG/ML VIAL IV PUSH PRN ×7 (02:55→21:04)
[2017-08-05] MEDS: diphenhydrAMINE HCL 25 MG CAP PO PRN (06:10)
[2017-08-05 06:30] LABS: AUTOMATED NEUTROPHIL # 8.5 TH/MM3 (1.8-7.7); BASOPHIL # 0.1 TH/MM3 (0-0.2); BASOPHIL % 0.4 % (0.0-2.0); EOSINOPHIL # 0.6 TH/MM3 (0-0.4); EOSINOPHIL % 3.2 % (0.0-4.0); HEMATOCRIT 24.1 % (35.0-46.0); LYMPH % 37.4 % (9.0-44.0); LYMPHOCYTE # 6.8 TH/MM3 (1.0-4.8); MEAN CELL VOLUME 80.8 FL (80.0-100.0); MEAN CORPUSCULAR HEMOGLOBIN 27.9 PG (27.0-34.0); MEAN CORPUSCULAR HGB CONC 34.5 % (32.0-36.0); PLATELET COUNT 447 TH/MM3 (150-450); RED BLOOD COUNT 2.98 MIL/MM3 (4.00-5.30); RED CELL DISTRIBUTION WIDTH 18.7 % (11.6-17.2); WHITE BLOOD COUNT 18.1 TH/MM3 (4.0-11.0)
[2017-08-05 06:39] LABS: HEMO FLAGS AUTO DIFF
[2017-08-05 07:04] LABS: POTASSIUM 3.4 MEQ/L (3.5-5.1)
[2017-08-05] MEDS: RESP: ALBUTEROL 2.5 MG/IPRATROPIUM 0.5 MG NEB (SCH) NEB ×4 (07:57→19:47)
[2017-08-05 08:16] LABS: BANDS 4 % (0-6); BASOPHILS 1 % (0-2); EOSINOPHILS 3 % (0-4); NEUTROPHIL # MANUAL DIFF 10.7 TH/MM3 (1.8-7.7); PLATELET ESTIMATE SMEAR HIGH (NORMAL); POLYS (SEG NEUTROPHILS) 55 % (16-70); SICKLE CELLS 1+ (NORMAL); TARGET CELLS 1+ (NORMAL); WBC DIFF SAMPLE 100
[2017-08-05 08:18] LABS: PLATELET MORPHOLOGY NORMAL (NORMAL)
[2017-08-05 08:19] LABS: SCAN/DIFF FINAL DIFF MANUAL
[2017-08-05] MEDS: SODIUM CHLORIDE 0.9% FLUSH 10 ML FLUSH IV FLUSH SCH ×2 (09:00→21:04)
[2017-08-05] MEDS: DOCUSATE SODIUM 50 MG/SENNA 8.6 MG TAB PO SCH ×2 (09:03→21:04)
[2017-08-05] MEDS: SODIUM CHLOR 0.9% 1000 ML INJ 1,000 ML IV SCH (09:03)
[2017-08-05] MEDS: CARVEDILOL 3.125 MG TAB PO SCH ×2 (09:03→21:04)
[2017-08-05] MEDS: FOLIC ACID 1 MG TAB PO SCH (09:04)
[2017-08-05] MEDS: HYDROXYUREA 500 MG CAP PO SCH (09:12)
--- NOTE | 2017-08-05 12:09 | HHI.PR ---
Subjective Remarks Patient emotional, crying still has diffuse musculoskeletal pain. No shortness of breath. No fevers. Patient having some social issues at home and is tearful because of this as well. Discussed with ICU nurse. Objective Vitals Vital Signs Date Time Temp Pulse Resp B/P (MAP) Pulse Ox O2 Delivery O2 Flow Rate FiO2 08/05/17 12:02 97.7 82 16 97 08/05/17 09:40 15 08/05/17 07:00 97 Nasal Cannula 2.00 Humidified 08/05/17 07:00 98.2 87 20 108/66 (80) 97 08/05/17 04:24 98.3 68 14 116/80 (92) 100 08/05/17 00:05 99 Nasal Cannula 2.00 Humidified 08/05/17 00:03 98.0 98 21 116/69 (85) 98 08/04/17 22:05 97.7 83 15 106/54 97 08/04/17 21:00 85 17 110/78 95 08/04/17 20:45 95 19 94 08/04/17 20:30 102 16 106/65 98 08/04/17 20:15 98 19 101/59 97 08/04/17 20:00 98.3 103 22 109/50 97 08/04/17 19:43 98.3 93 23 103/46 (65) 97 08/04/17 19:39 98.3 93 23 103/46 97 08/04/17 18:00 102 16 113/68 (83) 100 08/04/17 17:18 98.1 86 18 111/78 (89) 100 08/04/17 17:15 16 08/04/17 17:12 08/04/17 17:01 98.2 83 16 131/74 (93) 95 08/04/17 12:26 18 98 Room Air I/O 08/04/17 08/04/17 08/04/17 08/05/17 08/05/17 08/05/17 07:00 15:00 23:00 07:00 15:00 23:00 Intake Total 764 ml 1764 ml Balance 764 ml 1764 ml Intake Oral 960 ml IV Total 804 ml Packed Cells 734 ml Blood Product IV Normal Saline Flush 30 ml # Voids 1 4 Result Diagram: 08/05/17 0608/05/17 0600 Objective Remarks GENERAL: Well-nourished, well-developed pleasant afternoon [place] female patient. Tearful. SKIN: Warm and dry. HEAD: Normocephalic. EYES: No scleral icterus. No injection or drainage. NECK: Supple, trachea midline. No JVD or lymphadenopathy. CARDIOVASCULAR: Regular rate and rhythm without murmurs, gallops, or rubs. RESPIRATORY: Breath sounds equal bilaterally. No accessory muscle use. GASTROINTESTINAL: Abdomen soft, non-tender, nondistended. EXTREMITIES: No cyanosis, or edema. NEUROLOGICAL: Awake, alert, and oriented x 3. Non-focal. A/P Problem List: (1) Sickle cell disease with crisis ICD Code: D57.00 - Hb-SS disease with crisis Status: Acute (2) Asthma ICD Code: J45.909 - Asthma Status: Chronic (3) Cardiomyopathy ICD Code: I42.9 - Cardiomyopathy Status: Chronic (4) Anemia ICD Code: D64.9 - Anemia Status: Chronic (5) Iron overload due to repeated red blood cell transfusions ICD Code: E83.111 - Hemochromatosis due to repeated red blood cell transfusions Status: Acute Assessment and Plan -Sickle cell disease with acute vaso-occlusive pain crisis. No improvement today. Continue control with IV Dilaudid and Benadryl for pruritus. Continue hydroxyurea and full of acid. DC IV fluids due to cardiomyopathy. -Sickle cell anemia. s/p 2 units packed red blood cells on admission, hemoglobin improved to 8.3 today. Follow CBC. -Shortness of breath. Improved. No evidence for CHF or asthma exacerbation. We'll give DuoNeb scheduled and when necessary. Oxygen via nasal cannula as needed. -Cardiomyopathy. Last 2-D echo in November 2015 shows left ventricular ejection fraction of 40-45% with diffuse hypokinesis. Currently in good fluid balance. We'll start patient on Coreg and will resume her lisinopril blood pressure tolerates the Coreg. -DVT prophylaxis with Lovenox 40 mg subcutaneous daily. Problem Qualifiers (1) Anemia: Qualified Codes: D64.9 - Anemia, unspecified Verito Alcaraz MD Aug 05, 2017 12:09
[2017-08-05] MEDS: diphenhydrAMINE HCL 50 MG/ML VIAL IV PUSH PRN ×2 (14:59→21:03)
[2017-08-05] MEDS: ENOXAPARIN SODIUM 40 MG/0.4 ML SYRINGE SQ SCH (15:24)
[2017-08-06] VITALS (8 sets, daily range): BP systolic 94–128; BP diastolic 59–80; PULSE 65–88; RESP 15–20; TEMP 97.5–98.5; O2SAT 94–100
[2017-08-06] MEDS: HYDROmorphone HCL PF 2 MG/ML VIAL IV PUSH PRN ×7 (00:04→22:17)
[2017-08-06] MEDS: diphenhydrAMINE HCL 50 MG/ML VIAL IV PUSH PRN ×3 (05:59→18:45)
[2017-08-06 07:10] LABS: BICARBONATE 24.7 MEQ/L (21.0-32.0); POTASSIUM 3.7 MEQ/L (3.5-5.1)
[2017-08-06 07:12] LABS: AUTOMATED NEUTROPHIL # 6.5 TH/MM3 (1.8-7.7); BASOPHIL # 0.2 TH/MM3 (0-0.2); BASOPHIL % 1.4 % (0.0-2.0); EOSINOPHIL # 0.7 TH/MM3 (0-0.4); EOSINOPHIL % 4.9 % (0.0-4.0); HEMATOCRIT 23.5 % (35.0-46.0); LYMPH % 35.3 % (9.0-44.0); LYMPHOCYTE # 4.9 TH/MM3 (1.0-4.8); MEAN CELL VOLUME 81.5 FL (80.0-100.0); MEAN CORPUSCULAR HGB CONC 35.6 % (32.0-36.0); MONO % 12.2 % (0.0-8.0); NEUT % 46.2 % (16.0-70.0); PLATELET COUNT 410 TH/MM3 (150-450); RED BLOOD COUNT 2.89 MIL/MM3 (4.00-5.30); RED CELL DISTRIBUTION WIDTH 18.8 % (11.6-17.2)
[2017-08-06 07:27] LABS: HEMO FLAGS AUTO DIFF
[2017-08-06] MEDS: RESP: ALBUTEROL 2.5 MG/IPRATROPIUM 0.5 MG NEB (SCH) NEB ×4 (08:03→20:00)
[2017-08-06 08:45] LABS: TARGET CELLS 1+ (NORMAL)
[2017-08-06 08:47] LABS: PLATELET ESTIMATE SMEAR HIGH (NORMAL); PLATELET MORPHOLOGY NORMAL (NORMAL); SCAN/DIFF AUTO DIFF CONFIRMED; SICKLE CELLS 1+ (NORMAL)
[2017-08-06] MEDS: FOLIC ACID 1 MG TAB PO SCH (09:00)
[2017-08-06] MEDS: DOCUSATE SODIUM 50 MG/SENNA 8.6 MG TAB PO SCH ×2 (09:00→20:25)
[2017-08-06] MEDS: HYDROXYUREA 500 MG CAP PO SCH (09:00)
[2017-08-06] MEDS: CARVEDILOL 3.125 MG TAB PO SCH ×2 (09:00→20:25)
[2017-08-06] MEDS: SODIUM CHLORIDE 0.9% FLUSH 10 ML FLUSH IV FLUSH SCH ×2 (09:01→20:25)
[2017-08-06] MEDS: ONDANSETRON HCL 4 MG/2 ML VIAL IVP PRN (12:07)
--- NOTE | 2017-08-06 14:23 | HHI.PR ---
Subjective Remarks Pain is improved today. Still all over. Having some nausea no vomiting. Objective Vitals Vital Signs Date Time Temp Pulse Resp B/P (MAP) Pulse Ox O2 Delivery O2 Flow Rate FiO2 08/06/17 13:43 97.5 81 20 117/73 (88) 94 08/06/17 08:50 98.4 84 15 94/74 (81) 100 08/06/17 08:50 Nasal Cannula 2.00 08/06/17 08:03 99 Nasal Cannula 2.00 08/06/17 06:42 14 08/06/17 06:00 98.5 88 16 121/80 (94) 100 08/06/17 03:00 88 16 114/66 (82) 100 08/06/17 00:17 98.4 88 16 113/74 (87) 100 08/05/17 20:13 96 Nasal Cannula 2.00 Humidified 08/05/17 20:00 98.2 79 14 117/70 (86) 97 08/05/17 19:53 100 Nasal Cannula 2.00 08/05/17 16:00 98.0 99 16 97 08/05/17 16:00 97 Nasal Cannula 2.00 Humidified I/O 08/05/17 08/05/17 08/05/17 08/06/17 08/06/17 08/06/17 07:00 15:00 23:00 07:00 15:00 23:00 Intake Total 1764 ml 750 ml 404 ml Balance 1764 ml 750 ml 404 ml Intake Oral 960 ml 450 ml 320 ml IV Total 804 ml 300 ml 84 ml # Voids 4 5 5 # Bowel Movements 1 Result Diagram: 08/06/1761908/06/1720 Objective Remarks GENERAL: Well-nourished, well-developed pleasant afternoon [place] female patient. Tearful. SKIN: Warm and dry. HEAD: Normocephalic. EYES: No scleral icterus. No injection or drainage. NECK: Supple, trachea midline. No JVD or lymphadenopathy. CARDIOVASCULAR: Regular rate and rhythm without murmurs, gallops, or rubs. RESPIRATORY: Breath sounds equal bilaterally. No accessory muscle use. GASTROINTESTINAL: Abdomen soft, non-tender, nondistended. EXTREMITIES: No cyanosis, or edema. NEUROLOGICAL: Awake, alert, and oriented x 3. Non-focal. A/P Problem List: (1) Sickle cell disease with crisis ICD Code: D57.00 - Hb-SS disease with crisis Status: Acute (2) Asthma ICD Code: J45.909 - Asthma Status: Chronic (3) Cardiomyopathy ICD Code: I42.9 - Cardiomyopathy Status: Chronic (4) Anemia ICD Code: D64.9 - Anemia Status: Chronic (5) Iron overload due to repeated red blood cell transfusions ICD Code: E83.111 - Hemochromatosis due to repeated red blood cell transfusions Status: Acute Assessment and Plan -Sickle cell disease with acute vaso-occlusive pain crisis. No improvement today. Continue control with IV Dilaudid and Benadryl for pruritus. Continue hydroxyurea and full of acid. No IV fluids due to cardiomyopathy. -Sickle cell anemia. s/p 2 units packed red blood cells on admission, hemoglobin stable today. Follow CBC. -Shortness of breath. Improved. No evidence for CHF or asthma exacerbation. We'll give DuoNeb scheduled and when necessary. Oxygen via nasal cannula as needed. -Cardiomyopathy. Last 2-D echo in November 2015 shows left ventricular ejection fraction of 40-45% with diffuse hypokinesis. Currently in good fluid balance. Patient has been started on Coreg and will consider to resume her lisinopril if blood pressure tolerates the Coreg. -DVT prophylaxis with Lovenox 40 mg subcutaneous daily. Problem Qualifiers (1) Anemia: Qualified Codes: D64.9 - Anemia, unspecified Verito Alcaraz MD Aug 06, 2017 14:23
[2017-08-06] MEDS: ENOXAPARIN SODIUM 40 MG/0.4 ML SYRINGE SQ SCH (15:15)
[2017-08-06] MEDS: HYDROmorphone HCL PF 1 MG/ML VIAL IV PUSH PRN (15:16)
[2017-08-07] VITALS (7 sets, daily range): BP systolic 103–111; BP diastolic 51–68; PULSE 73–88; RESP 20; TEMP 98.2–98.9; O2SAT 91–99
[2017-08-07] MEDS: diphenhydrAMINE HCL 50 MG/ML VIAL IV PUSH PRN ×4 (01:01→20:08)
[2017-08-07] MEDS: HYDROmorphone HCL PF 2 MG/ML VIAL IV PUSH PRN ×6 (01:01→20:07)
[2017-08-07] MEDS: RESP: ALBUTEROL 2.5 MG/IPRATROPIUM 0.5 MG NEB (SCH) NEB ×3 (08:00→19:49)
[2017-08-07] MEDS: CARVEDILOL 3.125 MG TAB PO SCH ×2 (09:00→20:59)
[2017-08-07] MEDS: SODIUM CHLORIDE 0.9% FLUSH 10 ML FLUSH IV FLUSH SCH ×2 (09:00→21:00)
[2017-08-07] MEDS: DOCUSATE SODIUM 50 MG/SENNA 8.6 MG TAB PO SCH ×2 (09:00→20:59)
--- NOTE | 2017-08-07 09:13 | HHI.PR ---
Subjective Remarks in no acute distress. still complaining of pain/ generalized bodyache. Objective Vitals Vital Signs Date Time Temp Pulse Resp B/P (MAP) Pulse Ox O2 Delivery O2 Flow Rate FiO2 08/07/17 08: 98.9 85 20 108/56 (73) 94 08/07/17 04:00 98.6 82 20 103/51 (68) 94 08/07/17 00:00 98.6 88 20 110/68 (82) 97 08/06/17 20:00 98.0 83 18 128/76 (93) 99 08/06/17 20:00 Nasal Cannula 2.00 08/06/17 15:23 98.1 65 20 117/59 (78) 100 08/06/17 13:43 97.5 81 20 117/73 (88) 94 I/O 08/06/17 08/06/17 08/06/17 08/07/17 08/07/17 08/07/17 07:00 15:00 23:00 07:00 15:00 23:00 Intake Total 404 ml 240 ml Output Total 3 ml Balance 404 ml 240 ml -3 ml Intake Oral 320 ml 240 ml IV Total 84 ml Output Urine Total 3 ml # Voids 5 1 # Bowel Movements 1 1 Result Diagram: 08/06/17 0620 08/06/17 0620 Imaging Last Impressions Chest X-Ray 08/04/17 1103 Signed Impressions: Service Date/Time: Friday, August 04, 2017 11:13 - CONCLUSION: No acute disease. Madi Diego MD FACR Objective Remarks GENERAL: This is a well-nourished, well-developed patient, in no apparent distress. CARDIOVASCULAR: Regular rate and regular rhythm without murmurs, gallops, or rubs. RESPIRATORY: Clear to auscultation. Breath sounds equal bilaterally. No wheezes , rales, or rhonchi. GASTROINTESTINAL: Abdomen soft, non-tender, nondistended. Normal, active bowel sounds MUSCULOSKELETAL: Extremities without clubbing, cyanosis, or edema. NEURO: Alert & Oriented x4 to person, place, time, situation. Moves all ext x4 Medications and IVs Current Medications Sodium Chloride (NS Flush) 2 ml UNSCH PRN IVF FLUSH AFTER USING IV ACCESS Last administered on 08/04/17t 13:47; Start 08/04/17 at 11:15; Stop 08/04/17 at 14:37 ; Status DC Sodium Chloride 1,000 ml @ 1,000 mls/hr Q1H ONCE IV Last administered on 11:17; Start 08/04/17 at 11:01; Stop 08/04/17 at 12:00; Status DC Diphenhydramine HCl (Benadryl Inj) 25 mg ONCE ONCE IV PUSH Last administered on 08/04/17 11:17; Start 08/04/17 at 11:15; Stop 08/04/17 at 11:16; Status DC Hydromorphone HCl (Dilaudid Pf Inj) 1 mg ONCE ONCE IVS Last administered on 12:11; Start 08/04/17 at 12:00; Stop 08/04/17 at 12:01; Status DC Sodium Chloride 250 ml @ 15 mls/hr ONCE ONCE IV ; Start 08/04/17 at 13:00; Stop 08/05/17 at 05:39; Status DC Hydromorphone HCl (Dilaudid Pf Inj) 1 mg ONCE ONCE IVS Last administered on 13:47; Start 08/04/17 at 13:15; Stop 08/04/17 at 13:16; Status DC Diphenhydramine HCl (Benadryl Inj) 25 mg ONCE ONCE IV PUSH Last administered on 08/04/17 13:46; Start 08/04/17 at 13:15; Stop 08/04/17 at 13:16; Status DC Sodium Chloride 1,000 ml @ 60 mls/hr [id number] IV Last administered on 09:03; Start 08/04/17 at 13:26; Stop 08/05/17 at 12:08; Status DC Sodium Chloride (NS Flush) 2 ml UNSCH PRN IV FLUSH FLUSH AFTER USING IV ACCESS ; Start 08/04/17 at 13:30 Sodium Chloride (NS Flush) 2 ml BID IV FLUSH Last administered on 08/06/17 20: 25; Start 08/04/17 at 21:00 Acetaminophen (Tylenol) 650 mg Q4H PRN PO TEMP > 100.4; Start 08/04/17 at 13:30 Ondansetron HCl (Zofran Inj) 4 mg Q6H PRN IVP NAUSEA OR VOMITING Last administered on 08/06/17 12:07; Start 08/04/17 at 13:30 Enoxaparin Sodium (Lovenox Inj) 40 mg Q24H SQ Last administered on 08/06/17 15 :15; Start 08/04/17 at 15:00 Hydromorphone HCl (Dilaudid Pf Inj) 1 mg Q3H PRN IV PUSH pain 1-5 Last administered on 08/06/17 15:16; Start 08/04/17 at 13:30 Naloxone HCl (Narcan Inj) 0.4 mg UNSCH PRN IV PUSH SEE LABEL COMMENTS; Start 08/04/17 at 13:30 Senna/Docusate Sodium (Malissa-Colace) 1 tab BID PO Last administered on 21:04; Start 08/04/17 at 21:00 Magnesium Hydroxide (Milk Of Magnesia Liq) 30 ml Q12H PRN PO Mild constipation ; Start 08/04/17 at 13:30 Sennosides (Senokot) 17.2 mg Q12H PRN PO Moderate constipation Last administered on 08/05/17 09:03; Start 08/04/17 at 13:30 Bisacodyl (Dulcolax Supp) 10 mg DAILY PRN RECTAL SEVERE CONSITIPATION; Start 08/04/17 at 13:30 Lactulose (Lactulose Liq) 30 ml DAILY PRN PO SEVERE CONSITIPATION; Start at 13:30 Hydromorphone HCl (Dilaudid Pf Inj) 2 mg Q3HR PRN IV PUSH pain scale 6-10 Last administered on 08/07/17 07:47; Start 08/04/17 at 13:30 Diphenhydramine HCl (Benadryl) 25 mg Q6H PRN PO itching Last administered on 06:10; Start 08/04/17 at 14:30; Stop 08/05/17 at 12:08; Status DC Albuterol/ Ipratropium (Duoneb Neb) 1 ampule QID NEB NEB Last administered on 08/06/17 12:00; Start 08/04/17 at 16:00 Albuterol/ Ipratropium (Duoneb Neb) 1 ampule Q4HR NEB PRN NEB dyspnea; Start 08/04/17 at 14:30 Folic Acid (Folate) 1 mg DAILY PO Last administered on 08/06/17 09:00; Start 08/05/17 at 09:00 Hydroxyurea (Hydrea) 500 mg DAILY PO Last administered on 08/06/17 09:00; Start 08/05/17 at 09:00 Carvedilol (Coreg) 3.125 mg Q12HR PO Last administered on 08/06/17 20:25; Start 08/04/17 at 21:00 Diphenhydramine HCl (Benadryl Inj) 25 mg Q6H PRN IV PUSH pruritus Last administered on 08/07/17 07:46; Start 08/05/17 at 12:15 A/P Problem List: (1) Sickle cell disease with crisis ICD Code: D57.00 - Hb-SS disease with crisis Status: Acute (2) Asthma ICD Code: J45.909 - Asthma Status: Chronic (3) Cardiomyopathy ICD Code: I42.9 - Cardiomyopathy Status: Chronic (4) Anemia ICD Code: D64.9 - Anemia Status: Chronic (5) Iron overload due to repeated red blood cell transfusions ICD Code: E83.111 - Hemochromatosis due to repeated red blood cell transfusions Status: Acute Assessment and Plan -Sickle cell disease with acute vaso-occlusive pain crisis. No improvement today. Continue control with IV Dilaudid and Benadryl for pruritus. Continue hydroxyurea and full of acid. No IV fluids due to cardiomyopathy. -Sickle cell anemia. s/p 2 units packed red blood cells on admission, hemoglobin stable.CBC tomorrow. -Shortness of breath. Improved. No evidence for CHF or asthma exacerbation. We'll give DuoNeb scheduled and when necessary. Oxygen via nasal cannula as needed. -Cardiomyopathy. Last 2-D echo in November 2015 shows left ventricular ejection fraction of 40-45% with diffuse hypokinesis. Currently in good fluid balance. Patient has been started on Coreg and will consider to resume her lisinopril if blood pressure tolerates the Coreg. -DVT prophylaxis with Lovenox 40 mg subcutaneous daily. Problem Qualifiers (1) Anemia: Qualified Codes: D64.9 - Anemia, unspecified Bernardo Orozco MD Aug 07, 2017 09:13
[2017-08-07] MEDS: FOLIC ACID 1 MG TAB PO SCH (09:25)
[2017-08-07] MEDS: HYDROXYUREA 500 MG CAP PO SCH (09:31)
[2017-08-07] MEDS: HYDROmorphone HCL PF 1 MG/ML VIAL IV PUSH PRN (10:22)
[2017-08-07] MEDS: ENOXAPARIN SODIUM 40 MG/0.4 ML SYRINGE SQ SCH (16:32)
[2017-08-07] MEDS: ONDANSETRON HCL 4 MG/2 ML VIAL IVP PRN (20:07)
[2017-08-08] VITALS: BP 115/65; PULSE 84; RESP 18; TEMP 98.7; O2SAT 91
[2017-08-08] MEDS: HYDROmorphone HCL PF 2 MG/ML VIAL IV PUSH PRN ×3 (00:10→06:29)
[2017-08-08] MEDS: diphenhydrAMINE HCL 50 MG/ML VIAL IV PUSH PRN ×3 (03:24→18:36)
[2017-08-08 04:00] VITALS: BP 115/57; PULSE 73; RESP 18; TEMP 98.5; O2SAT 100
[2017-08-08 05:13] LABS: AUTOMATED NEUTROPHIL # 7.8 TH/MM3 (1.8-7.7); BASOPHIL # 0.3 TH/MM3 (0-0.2); BASOPHIL % 2.1 % (0.0-2.0); EOSINOPHIL # 0.5 TH/MM3 (0-0.4); EOSINOPHIL % 3.6 % (0.0-4.0); HEMATOCRIT 23.3 % (35.0-46.0); HEMO FLAGS DIFF FINAL; LYMPH % 21.3 % (9.0-44.0); LYMPHOCYTE # 2.8 TH/MM3 (1.0-4.8); MEAN CELL VOLUME 80.4 FL (80.0-100.0); MEAN CORPUSCULAR HEMOGLOBIN 28.8 PG (27.0-34.0); MEAN CORPUSCULAR HGB CONC 35.8 % (32.0-36.0); MONO % 12.4 % (0.0-8.0); NEUT % 60.6 % (16.0-70.0); PLATELET COUNT 434 TH/MM3 (150-450); WHITE BLOOD COUNT 12.9 TH/MM3 (4.0-11.0)
[2017-08-08] MEDS: RESP: ALBUTEROL 2.5 MG/IPRATROPIUM 0.5 MG NEB (SCH) NEB ×2 (08:00→12:00)
[2017-08-08 08:24] VITALS: BP 112/58; PULSE 70; RESP 16; TEMP 98.4; O2SAT 99
[2017-08-08] MEDS: DOCUSATE SODIUM 50 MG/SENNA 8.6 MG TAB PO SCH ×2 (09:00→21:00)
--- NOTE | 2017-08-08 09:29 | HHI.PR ---
Subjective Remarks pain is slightly better today. in no acute distress. no fever. no new complaints. Objective Vitals Vital Signs Date Time Temp Pulse Resp B/P (MAP) Pulse Ox O2 Delivery O2 Flow Rate FiO2 08/08/17 08:24 98.4 70 16 112/58 (76) 99 08/08/17 04:00 98.5 73 18 115/57 (76) 100 08/08/17 00:00 98.7 84 18 115/65 (82) 91 08/07/17 17:01 20 08/07/17 16:33 98.2 73 20 109/58 (75) 91 08/07/17 16:11 99 Nasal Cannula 2.00 08/07/17 12:37 99 Nasal Cannula 2.00 08/07/17 11:34 98.7 87 20 111/58 (75) 94 08/07/17 10:52 20 I/O 08/07/17 08/07/17 08/07/17 08/08/17 08/08/17 08/08/17 07:00 15:00 23:00 07:00 15:00 23:00 Output Total 3 ml Balance -3 ml Output Urine Total 3 ml # Voids 4 # Bowel Movements 1 1 Result Diagram: 08/08/17 0453 08/06/17 0620 Imaging Last Impressions Chest X-Ray 08/04/17 1103 Signed Impressions: Service Date/Time: Friday, August 04, 2017 11:13 - CONCLUSION: No acute disease. Madi Diego MD FACR Objective Remarks GENERAL: This is a well-nourished, well-developed patient, in no apparent distress. CARDIOVASCULAR: Regular rate and regular rhythm without murmurs, gallops, or rubs. RESPIRATORY: Clear to auscultation. Breath sounds equal bilaterally. No wheezes , rales, or rhonchi. GASTROINTESTINAL: Abdomen soft, non-tender, nondistended. Normal, active bowel sounds MUSCULOSKELETAL: Extremities without clubbing, cyanosis, or edema. NEURO: Alert & Oriented x4 to person, place, time, situation. Moves all ext x4 Medications and IVs Current Medications Sodium Chloride (NS Flush) 2 ml UNSCH PRN IVF FLUSH AFTER USING IV ACCESS Last administered on 08/04/17t 13:47; Start 08/04/17 at 11:15; Stop 08/04/17 at 14:37 ; Status DC Sodium Chloride 1,000 ml @ 1,000 mls/hr Q1H ONCE IV Last administered on 11:17; Start 08/04/17 at 11:01; Stop 08/04/17 at 12:00; Status DC Diphenhydramine HCl (Benadryl Inj) 25 mg ONCE ONCE IV PUSH Last administered on 08/04/17 11:17; Start 08/04/17 at 11:15; Stop 08/04/17 at 11:16; Status DC Hydromorphone HCl (Dilaudid Pf Inj) 1 mg ONCE ONCE IVS Last administered on 12:11; Start 08/04/17 at 12:00; Stop 08/04/17 at 12:01; Status DC Sodium Chloride 250 ml @ 15 mls/hr ONCE ONCE IV ; Start 08/04/17 at 13:00; Stop 08/05/17 at 05:39; Status DC Hydromorphone HCl (Dilaudid Pf Inj) 1 mg ONCE ONCE IVS Last administered on 13:47; Start 08/04/17 at 13:15; Stop 08/04/17 at 13:16; Status DC Diphenhydramine HCl (Benadryl Inj) 25 mg ONCE ONCE IV PUSH Last administered on 08/04/17 13:46; Start 08/04/17 at 13:15; Stop 08/04/17 at 13:16; Status DC Sodium Chloride 1,000 ml @ 60 mls/hr [id number] IV Last administered on 09:03; Start 08/04/17 at 13:26; Stop 08/05/17 at 12:08; Status DC Sodium Chloride (NS Flush) 2 ml UNSCH PRN IV FLUSH FLUSH AFTER USING IV ACCESS ; Start 08/04/17 at 13:30 Sodium Chloride (NS Flush) 2 ml BID IV FLUSH Last administered on 08/07/17 21: 00; Start 08/04/17 at 21:00 Acetaminophen (Tylenol) 650 mg Q4H PRN PO TEMP > 100.4; Start 08/04/17 at 13:30 Ondansetron HCl (Zofran Inj) 4 mg Q6H PRN IVP NAUSEA OR VOMITING Last administered on 08/07/17 20:07; Start 08/04/17 at 13:30 Enoxaparin Sodium (Lovenox Inj) 40 mg Q24H SQ Last administered on 08/07/17 16 :32; Start 08/04/17 at 15:00 Hydromorphone HCl (Dilaudid Pf Inj) 1 mg Q3H PRN IV PUSH pain 1-5 Last administered on 08/07/17 10:22; Start 08/04/17 at 13:30 Naloxone HCl (Narcan Inj) 0.4 mg UNSCH PRN IV PUSH SEE LABEL COMMENTS; Start 08/04/17 at 13:30 Senna/Docusate Sodium (Malissa-Colace) 1 tab BID PO Last administered on 20:59; Start 08/04/17 at 21:00 Magnesium Hydroxide (Milk Of Magnesia Liq) 30 ml Q12H PRN PO Mild constipation ; Start 08/04/17 at 13:30 Sennosides (Senokot) 17.2 mg Q12H PRN PO Moderate constipation Last administered on 08/05/17 09:03; Start 08/04/17 at 13:30 Bisacodyl (Dulcolax Supp) 10 mg DAILY PRN RECTAL SEVERE CONSITIPATION; Start 08/04/17 at 13:30 Lactulose (Lactulose Liq) 30 ml DAILY PRN PO SEVERE CONSITIPATION; Start at 13:30 Hydromorphone HCl (Dilaudid Pf Inj) 2 mg Q3HR PRN IV PUSH pain scale 6-10 Last administered on 08/08/17 06:29; Start 08/04/17 at 13:30 Diphenhydramine HCl (Benadryl) 25 mg Q6H PRN PO itching Last administered on 06:10; Start 08/04/17 at 14:30; Stop 08/05/17 at 12:08; Status DC Albuterol/ Ipratropium (Duoneb Neb) 1 ampule QID NEB NEB Last administered on 08/07/17 16:11; Start 08/04/17 at 16:00 Albuterol/ Ipratropium (Duoneb Neb) 1 ampule Q4HR NEB PRN NEB dyspnea; Start 08/04/17 at 14:30 Folic Acid (Folate) 1 mg DAILY PO Last administered on 08/07/17 09:25; Start 08/05/17 at 09:00 Hydroxyurea (Hydrea) 500 mg DAILY PO Last administered on 08/07/17 09:31; Start 08/05/17 at 09:00 Carvedilol (Coreg) 3.125 mg Q12HR PO Last administered on 08/07/17 20:59; Start 08/04/17 at 21:00 Diphenhydramine HCl (Benadryl Inj) 25 mg Q6H PRN IV PUSH pruritus Last administered on 08/08/17 03:24; Start 08/05/17 at 12:15 A/P Problem List: (1) Sickle cell disease with crisis ICD Code: D57.00 - Hb-SS disease with crisis Status: Acute (2) Asthma ICD Code: J45.909 - Asthma Status: Chronic (3) Cardiomyopathy ICD Code: I42.9 - Cardiomyopathy Status: Chronic (4) Anemia ICD Code: D64.9 - Anemia Status: Chronic (5) Iron overload due to repeated red blood cell transfusions ICD Code: E83.111 - Hemochromatosis due to repeated red blood cell transfusions Status: Acute Assessment and Plan -Sickle cell disease with acute vaso-occlusive pain crisis. pain is slightly better today. change to po meds and monitor the response-. Continue hydroxyurea and full of acid. No IV fluids due to cardiomyopathy. -Sickle cell anemia. s/p 2 units packed red blood cells on admission, hemoglobin stable. -Shortness of breath. Improved. No evidence for CHF or asthma exacerbation. We'll give DuoNeb scheduled and when necessary. Oxygen via nasal cannula as needed. -Cardiomyopathy. Last 2-D echo in November 2015 shows left ventricular ejection fraction of 40-45% with diffuse hypokinesis. Currently in good fluid balance. Patient has been started on Coreg and will consider to resume her lisinopril if blood pressure tolerates the Coreg. -DVT prophylaxis with Lovenox 40 mg subcutaneous daily. Discharge Planning dc home within the next 1-2 days if pain is better controlled. Problem Qualifiers (1) Anemia: Qualified Codes: D64.9 - Anemia, unspecified Bernardo Orozco MD Aug 08, 2017 09:29
[2017-08-08] MEDS ORDERED: oxyCODONE/ACETAMINOPHEN 10 MG/325 MG TAB PO PRN ×2 (09:30)
[2017-08-08] MEDS: SODIUM CHLORIDE 0.9% FLUSH 10 ML FLUSH IV FLUSH SCH ×2 (09:42→21:11)
[2017-08-08] MEDS: CARVEDILOL 3.125 MG TAB PO SCH ×2 (09:42→21:11)
[2017-08-08] MEDS: FOLIC ACID 1 MG TAB PO SCH (09:42)
[2017-08-08] MEDS: HYDROXYUREA 500 MG CAP PO SCH (09:45)
[2017-08-08] MEDS: HYDROmorphone HCL PF 1 MG/ML VIAL IV PUSH PRN ×4 (09:52→22:51)
[2017-08-08] MEDS ORDERED: ACETAMINOPHEN/HYDROcodone 325 MG/10 MG TAB PO PRN (11:00)
[2017-08-08 12:05] VITALS: BP 121/73; PULSE 85; RESP 16; TEMP 98.4; O2SAT 96
[2017-08-08] MEDS: ACETAMINOPHEN/HYDROcodone 325 MG/10 MG TAB PO PRN ×3 (12:21→21:11)
[2017-08-08] MEDS: ENOXAPARIN SODIUM 40 MG/0.4 ML SYRINGE SQ SCH (14:36)
[2017-08-08 15:34] VITALS: BP 106/55; PULSE 76; RESP 16; TEMP 98.4; O2SAT 96
[2017-08-08 20:00] VITALS: BP 118/64; PULSE 82; RESP 17; TEMP 98.8; O2SAT 93
[2017-08-09] VITALS: BP 125/58; PULSE 88; RESP 17; TEMP 98.6; O2SAT 94
[2017-08-09] MEDS: ACETAMINOPHEN/HYDROcodone 325 MG/10 MG TAB PO PRN ×3 (01:07→09:17)
[2017-08-09] MEDS: diphenhydrAMINE HCL 50 MG/ML VIAL IV PUSH PRN (02:54)
[2017-08-09] MEDS: HYDROmorphone HCL PF 1 MG/ML VIAL IV PUSH PRN ×2 (02:55→07:02)
[2017-08-09 04:00] VITALS: BP 111/59; PULSE 79; RESP 16; TEMP 98; O2SAT 92
[2017-08-09 08:34] VITALS: BP 107/56; PULSE 77; RESP 18; TEMP 98.8; O2SAT 94
--- NOTE | 2017-08-09 08:55 | HHI.PR ---
Subjective Remarks in no acute distress. seems comfortable. pain seems to be improving. d/w the RN and no acute issues over night. Objective Vitals Vital Signs Date Time Temp Pulse Resp B/P (MAP) Pulse Ox O2 Delivery O2 Flow Rate FiO2 08/09/17 08:34 98.8 77 18 107/56 (73) 94 08/09/17 07:43 16 08/09/17 04:00 98.0 79 16 111/59 (76) 92 08/09/17 00:00 98.6 88 17 125/58 (80) 94 08/08/17 20:00 Room Air 08/08/17 20:00 98.8 82 17 118/64 (82) 93 08/08/17 15:34 98.4 76 16 106/55 (72) 96 08/08/17 12:05 98.4 85 16 121/73 (89) 96 08/08/17 09:26 2.00 I/O 08/08/17 08/08/17 08/08/17 08/09/17 08/09/17 08/09/17 07:00 15:00 23:00 07:00 15:00 23:00 Intake Total 240 ml 960 ml Balance 240 ml 960 ml Intake Oral 240 ml 960 ml # Voids 4 2 3 # Bowel Movements 1 1 Result Diagram: 08/08/17 0453 08/06/17 0620 Imaging Last Impressions Chest X-Ray 08/04/17 1103 Signed Impressions: Service Date/Time: Friday, August 04, 2017 11:13 - CONCLUSION: No acute disease. Madi Diego MD FACR Objective Remarks GENERAL: This is a well-nourished, well-developed patient, in no apparent distress. CARDIOVASCULAR: Regular rate and regular rhythm without murmurs, gallops, or rubs. RESPIRATORY: Clear to auscultation. Breath sounds equal bilaterally. No wheezes , rales, or rhonchi. GASTROINTESTINAL: Abdomen soft, non-tender, nondistended. Normal, active bowel sounds MUSCULOSKELETAL: Extremities without clubbing, cyanosis, or edema. NEURO: Alert & Oriented x4 to person, place, time, situation. Moves all ext x4 Medications and IVs Current Medications Sodium Chloride (NS Flush) 2 ml UNSCH PRN IVF FLUSH AFTER USING IV ACCESS Last administered on 08/04/17 13:47; Start 08/04/17 at 11:15; Stop 08/04/17 at 14:37 ; Status DC Sodium Chloride 1,000 ml @ 1,000 mls/hr Q1H ONCE IV Last administered on 11:17; Start 08/04/17 at 11:01; Stop 08/04/17 at 12:00; Status DC Diphenhydramine HCl (Benadryl Inj) 25 mg ONCE ONCE IV PUSH Last administered on 08/04/17 11:17; Start 08/04/17 at 11:15; Stop 08/04/17 at 11:16; Status DC Hydromorphone HCl (Dilaudid Pf Inj) 1 mg ONCE ONCE IVS Last administered on 12:11; Start 08/04/17 at 12:00; Stop 08/04/17 at 12:01; Status DC Sodium Chloride 250 ml @ 15 mls/hr ONCE ONCE IV ; Start 08/04/17 at 13:00; Stop 08/05/17 at 05:39; Status DC Hydromorphone HCl (Dilaudid Pf Inj) 1 mg ONCE ONCE IVS Last administered on 13:47; Start 08/04/17 at 13:15; Stop 08/04/17 at 13:16; Status DC Diphenhydramine HCl (Benadryl Inj) 25 mg ONCE ONCE IV PUSH Last administered on 08/04/17 13:46; Start 08/04/17 at 13:15; Stop 08/04/17 at 13:16; Status DC Sodium Chloride 1,000 ml @ 60 mls/hr [id number] IV Last administered on 09:03; Start 08/04/17 at 13:26; Stop 08/05/17 at 12:08; Status DC Sodium Chloride (NS Flush) 2 ml UNSCH PRN IV FLUSH FLUSH AFTER USING IV ACCESS ; Start 08/04/17 at 13:30 Sodium Chloride (NS Flush) 2 ml BID IV FLUSH Last administered on 08/08/17 21: 11; Start 08/04/17 at 21:00 Acetaminophen (Tylenol) 650 mg Q4H PRN PO TEMP > 100.4; Start 08/04/17 at 13:30 Ondansetron HCl (Zofran Inj) 4 mg Q6H PRN IVP NAUSEA OR VOMITING Last administered on 08/07/17 20:07; Start 08/04/17 at 13:30 Enoxaparin Sodium (Lovenox Inj) 40 mg Q24H SQ Last administered on 08/07/17 16 :32; Start 08/04/17 at 15:00 Hydromorphone HCl (Dilaudid Pf Inj) 1 mg Q3H PRN IV PUSH pain 1-5 Last administered on 08/07/17 10:22; Start 08/04/17 at 13:30; Stop 08/08/17 at 09:27 ; Status DC Naloxone HCl (Narcan Inj) 0.4 mg UNSCH PRN IV PUSH SEE LABEL COMMENTS; Start 08/04/17 at 13:30 Senna/Docusate Sodium (Malissa-Colace) 1 tab BID PO Last administered on 20:59; Start 08/04/17 at 21:00 Magnesium Hydroxide (Milk Of Magnesia Liq) 30 ml Q12H PRN PO Mild constipation ; Start 08/04/17 at 13:30 Sennosides (Senokot) 17.2 mg Q12H PRN PO Moderate constipation Last administered on 08/05/17 09:03; Start 08/04/17 at 13:30 Bisacodyl (Dulcolax Supp) 10 mg DAILY PRN RECTAL SEVERE CONSITIPATION; Start 08/04/17 at 13:30 Lactulose (Lactulose Liq) 30 ml DAILY PRN PO SEVERE CONSITIPATION; Start at 13:30 Hydromorphone HCl (Dilaudid Pf Inj) 2 mg Q3HR PRN IV PUSH pain scale 6-10 Last administered on 08/08/17 06:29; Start 08/04/17 at 13:30; Stop 08/08/17 at 09:27 ; Status DC Diphenhydramine HCl (Benadryl) 25 mg Q6H PRN PO itching Last administered on 06:10; Start 08/04/17 at 14:30; Stop 08/05/17 at 12:08; Status DC Albuterol/ Ipratropium (Duoneb Neb) 1 ampule QID NEB NEB Last administered on 08/07/17 16:11; Start 08/04/17 at 16:00; Stop 08/08/17 at 15:59; Status DC Albuterol/ Ipratropium (Duoneb Neb) 1 ampule Q4HR NEB PRN NEB dyspnea; Start 08/04/17 at 14:30 Folic Acid (Folate) 1 mg DAILY PO Last administered on 08/08/17 09:42; Start 08/05/17 at 09:00 Hydroxyurea (Hydrea) 500 mg DAILY PO Last administered on 08/08/17 09:45; Start 08/05/17 at 09:00 Carvedilol (Coreg) 3.125 mg Q12HR PO Last administered on 08/08/17 21:11; Start 08/04/17 at 21:00 Diphenhydramine HCl (Benadryl Inj) 25 mg Q6H PRN IV PUSH pruritus Last administered on 08/09/17 02:54; Start 08/05/17 at 12:15 Oxycodone/ Acetaminophen (Percocet 10-325 Mg) 1 tab Q4H PRN PO PAIN < 5; Start 08/08/17 at 09:30; Stop 08/08/17 at 10:57; Status DC Oxycodone/ Acetaminophen (Percocet 10-325 Mg) 2 tab Q4H PRN PO PAIN 6-10; Start 08/08/17 at 09:30; Stop 08/08/17 at 10:57; Status DC Hydromorphone HCl (Dilaudid Pf Inj) 1 mg Q4H PRN IV PUSH BREAKTHROUGH PAIN Last administered on 08/09/17 07:02; Start 08/08/17 at 09:30 Acetaminophen/ Hydrocodone Bitart ([place] 10-325 Mg) 1 tab Q4H PRN PO PAIN < 5; Start 08/08/17 at 11:00 Acetaminophen/ Hydrocodone Bitart ([place] 10-325 Mg) 2 tab Q4H PRN PO PAIN 6-10 Last administered on 08/09/17 05:13; Start 08/08/17 at 11:00 A/P Problem List: (1) Sickle cell disease with crisis ICD Code: D57.00 - Hb-SS disease with crisis Status: Acute (2) Asthma ICD Code: J45.909 - Asthma Status: Chronic (3) Cardiomyopathy ICD Code: I42.9 - Cardiomyopathy Status: Chronic (4) Anemia ICD Code: D64.9 - Anemia Status: Chronic (5) Iron overload due to repeated red blood cell transfusions ICD Code: E83.111 - Hemochromatosis due to repeated red blood cell transfusions Status: Acute Assessment and Plan -Sickle cell disease with acute vaso-occlusive pain crisis. pain has improved. continue po meds- Continue hydroxyurea and folic acid. No IV fluids due to cardiomyopathy. -Sickle cell anemia. s/p 2 units packed red blood cells on admission, hemoglobin stable. -Shortness of breath. Improved. No evidence for CHF or asthma exacerbation. We'll give DuoNeb scheduled and when necessary. Oxygen via nasal cannula as needed. -Cardiomyopathy. Last 2-D echo in November 2015 shows left ventricular ejection fraction of 40-45% with diffuse hypokinesis. Currently in good fluid balance. Patient has been started on Coreg - will resume low-dose lisinopril. f/u as outpatient. -DVT prophylaxis with Lovenox 40 mg subcutaneous daily. Discharge Planning dc home today with f/u with pcp and hematology. see med list. d/w the patient and RN. Problem Qualifiers (1) Anemia: Qualified Codes: D64.9 - Anemia, unspecified Bernardo Orozco MD Aug 09, 2017 08:55
[2017-08-09] MEDS ORDERED: CARV3.125 PO (08:57)
[2017-08-09] MEDS ORDERED: HYDR-3583 PO (08:57)
[2017-08-09] MEDS: DOCUSATE SODIUM 50 MG/SENNA 8.6 MG TAB PO SCH (09:00)
--- NOTE | 2017-08-09 09:00 | HHI.DS ---
Discharge Summary Admission Date Aug 04, 2017 at 13:28 Discharge Date: Aug 09, 2017 Admitting Diagnosis anemia, sickle cell (1) Sickle cell disease with crisis ICD Code: D57.00 - Hb-SS disease with crisis Diagnosis: Principal Status: Acute (2) Asthma ICD Code: J45.909 - Asthma Diagnosis: Secondary Status: Chronic (3) Cardiomyopathy ICD Code: I42.9 - Cardiomyopathy Diagnosis: Secondary Status: Chronic (4) Anemia ICD Code: D64.9 - Anemia Diagnosis: Principal Status: Chronic (5) Iron overload due to repeated red blood cell transfusions ICD Code: E83.111 - Hemochromatosis due to repeated red blood cell transfusions Diagnosis: Secondary Status: Acute Procedures none Brief History - From Admission This is a pleasant 26 year-old female with past medical history of sickle cell disease and cardiomyopathy who presents to the ER complaining of generalized diffuse pain beginning 5 days ago. The pain is typical for her sickle cell pain crises. The patient states she had been trying to deal with it at home but the pain became too severe and so she presented to the ER. Provocative factors included movement. No palliative factors. Symptoms severe. Patient also complains of mild shortness of breath. She does have a history of asthma as well. Denies wheezing. Complains of chills but no fever. No dysuria. No cough. She currently does not follow with a front office attendant but has established with a primary care physician who is referring her to one. CBC/BMP: 08/08/17 0453 08/06/17 0620 Significant Findings Laboratory Tests Test 08/08/17 04:53 White Blood Count 12.9 TH/MM3 (4.0-11.0) Red Blood Count 2.90 MIL/MM3 (4.00-5.30) Hemoglobin 8.3 GM/DL (11.6-15.3) Hematocrit 23.3 % (35.0-46.0) Red Cell Distribution Width 19.0 % (11.6-17.2) Monocytes (%) (Auto) 12.4 % (0.0-8.0) Basophils (%) (Auto) 2.1 % (0.0-2.0) Neutrophils # (Auto) 7.8 TH/MM3 (1.8-7.7) Monocytes # (Auto) 1.6 TH/MM3 (0-0.9) Eosinophils # (Auto) 0.5 TH/MM3 (0-0.4) Basophils # (Auto) 0.3 TH/MM3 (0-0.2) Imaging Last Impressions Chest X-Ray 08/04/17 1103 Signed Impressions: Service Date/Time: Friday, August 04, 2017 11:13 - CONCLUSION: No acute disease. Madi Diego MD FACR PE at Discharge GENERAL: This is a well-nourished, well-developed patient, in no apparent distress. CARDIOVASCULAR: Regular rate and regular rhythm without murmurs, gallops, or rubs. RESPIRATORY: Clear to auscultation. Breath sounds equal bilaterally. No wheezes , rales, or rhonchi. GASTROINTESTINAL: Abdomen soft, non-tender, nondistended. Normal, active bowel sounds MUSCULOSKELETAL: Extremities without clubbing, cyanosis, or edema. NEURO: Alert & Oriented x4 to person, place, time, situation. Moves all ext x4 Hospital Course patient was admitted with sickle cell painful crisis. she was started on pain control. she received PRBC transfusion.H/H improved and the pain improved with supportive care. she will be discharged home with f/u with her PCP and hematology. Pt Condition on Discharge: Fair Discharge Disposition: Discharge Home Discharge Time: <= 30 minutes Discharge Instructions DIET: Follow Instructions for: Heart Healthy Diet Activities you can perform: Regular-No Restrictions Follow up Referrals: Oncology/Hematology PCP Follow-up New Medications: Carvedilol (Coreg) 3.125 Mg Tab 3.125 MG PO Q12HR for cardiomyopathy for 30 Days, TAB 0 Refills Hydrocodone/Acetaminophen (Hydrocodone-Acetamin 10-325 mg) 10 Mg-325 Mg Tablet 1 TAB PO Q6HR PRN for pain, #30 TAB 0 Refills Continued Medications: Albuterol 6.7 GM Inh (Proventil Hfa 6.7 GM Inh) 90 Mcg/Act Aer 2 PUFF INH Q6H PRN for SHORTNESS OF BREATH, #1 INHALER 0 Refills Folic Acid (Folic Acid) 400 Mcg Tab 400 MCG PO DAILY for Nutritional Supplement, TAB 0 Refills Hydroxyurea (Hydrea) 500 Mg Cap 500 MG PO DAILY for sickle cell, #30 CAP 0 Refills Lisinopril (Lisinopril) 5 Mg Tab 2.5 MG PO DAILY for heart failure, #30 TAB Discontinued Medications: Epinephrine Inj (Epinephrine Inj) 1 Mg/Ml Inj 0.3 MG IV PUSH ONCE PRN for ALLERGIC REACTION, #1 VIAL Epinephrine Inj (Epinephrine Inj) 1 Mg/Ml Inj 0.3 MG SQ ONCE PRN for ALLERGIC REACTION, #1 VIAL Give with any signs of respiratory distress. Bernardo Orozco MD Aug 09, 2017 09:00
[2017-08-09] MEDS: HYDROXYUREA 500 MG CAP PO SCH (09:12)
[2017-08-09] MEDS: SODIUM CHLORIDE 0.9% FLUSH 10 ML FLUSH IV FLUSH SCH (09:14)
[2017-08-09] MEDS: FOLIC ACID 1 MG TAB PO SCH (09:14)
[2017-08-09] MEDS: CARVEDILOL 3.125 MG TAB PO SCH (09:14)
[2017-08-09 12:24] VITALS: BP 107/56; PULSE 77; RESP 18; TEMP 98.8; O2SAT 94
== END 2017-08-09 12:58 | disposition home or self-care (01) | DRG 812 ==
LOC: NEPC 09:44 → NEDA 13:28 → HPIC 16:43 → N05B 08-06 11:17
PROVIDERS: ADMIT Internal Medicine; ATTEND Internal Medicine
PROC: 30233N1 Transfusion of Nonautologous Red Blood Cells into Peripheral Vein, Percutaneous Approach (ICD-10-PCS; principal; 2017-08-04)
DX: D57.00 Hb-SS disease with crisis, unspecified (principal); I42.9 Cardiomyopathy, unspecified; J45.909 Unspecified asthma, uncomplicated; E83.111 Hemochromatosis due to repeated red blood cell transfusions; Z88.5 Allergy status to narcotic agent; Z86.14 Personal history of Methicillin resistant Staphylococcus aureus infection
CPT/HCPCS: 36430; 71010; 80048; 81001; 85007; 85025; 85027; 85044; 86850; 86900; 86901; 86902; 86920; 86922; 94640; 94664; 96361; 96374; 96375; J1170; J1200; J1650; J2405; J7030; P9016

== ENCOUNTER 2017-09-26 11:51 | Inpatient (IN) | payer MEDICAID ==
[~2017-09-26] VITALS: Ht 165.1 cm; Wt 66.0 kg
[~2017-09-26 11:51] MED LIST changes: +CARV3.125 PO; -EPIN1INJ21 IV PUSH; -EPIN1INJ21 SQ; -HYDR-3535 PO; +HYDR-3583 PO; -POTA20TA5 PO
[2017-09-26 11:53] VITALS: BP 128/66; PULSE 89; RESP 12; TEMP 98.4; O2SAT 99
[2017-09-26] MEDS ORDERED: SODIUM CHLOR 0.9% 1000 ML INJ 1,000 ML IV ONE (12:21)
[2017-09-26] MEDS ORDERED: diphenhydrAMINE HCL 50 MG/ML VIAL IV PUSH ONE ×2 (12:30→15:15)
[2017-09-26] MEDS ORDERED: HYDROmorphone HCL PF 1 MG/ML VIAL IVS ONE (12:30)
[2017-09-26] MEDS ORDERED: HYDROmorphone HCL PF 2 MG/ML VIAL IV PUSH ONE (12:45)
--- NOTE | 2017-09-26 12:46 | PD ---
HPI Chief Complaint: Sickle Cell Time Seen by Provider: 12:21 Travel History International Travel<30 days: No Contact w/Intl Traveler<30days: No Traveled to known affect area: No History of Present Illness HPI 27-year-old female that presents to the ED for evaluation of sickle-cell pain. Patient has a chronic history of sickle cell. She has had blood transfusions in the past last time 2 weeks ago by her supervisor records change Dr. Gamino. Per patient she's been following with him and has been given prescriptions for pain medications including Lortab. Per patient her symptoms usually come before her. And she states that she is about to get her period which is her usual time when she gets this. Per patient usually gets anemic and sometimes has to get transfusions but not all the time. She states that the pain is all over. Per patient the pain is similar to her previous episodes. She does have a port. She denies any other symptoms like cold-like symptoms. She denies any fevers. States having some chest discomfort but not as bad. Per patient most the pain is in the extremities. She's been taking her Lortabs with minimal relief. No other medical issues at this time. Pain per patient is 8 out of 10. Symptoms going of for about 3 days now. PFSH Past Medical History Anemia: Yes Arthritis: No Asthma: Yes Autoimmune Disease: No Blood Disorders: Yes Anxiety: Yes Depression: No Heart Rhythm Problems: No Cancer: No High Cholesterol: No Chemotherapy: No Chest Pain: Yes Congestive Heart Failure: Yes COPD: No Cerebrovascular Accident: No Cystic Fibrosis: No Diabetes: No Diminished Hearing: No Endocrine: No Gastrointestinal Disorders: No GERD: No Glaucoma: No Genitourinary: No Headaches: Yes Hepatitis: No Hiatal Hernia: No Heparin Induced Thrombocytopen: No Hypertension: No Immune Disorder: No Implanted Vascular Access Dvce: Yes Kidney Stones: No Musculoskeletal: No Neurologic: Yes Psychiatric: Yes Reproductive: No Respiratory: Yes (Asthma) Immunizations Current: Yes Migraines: Yes Myocardial Infarction: No Pneumonia: Yes Radiation Therapy: No Renal Failure: No Seizures: No Sickle Cell Disease: Yes Sleep Apnea: No Thyroid Disease: No Ulcer: No PNEUMOCCOCAL Vaccine (Year): 1 ?: Not : 1 Para: 1 Miscarriage: 0 : 0 Tubal Ligation: Yes Past Surgical History Abdominal Surgery: No AICD: No Appendectomy: No Arteriovenous Shunt: No Body Medical Devices: R Chest Infusaport (3RD) Cardiac Surgery: No Section: Yes (X 1) Cholecystectomy: Yes Ear Surgery: No Endocrine Surgery: No Eye Surgery: No Genitourinary Surgery: No Gynecologic Surgery: Yes (c section) Hysterectomy: No Insulin Pump: No Joint Replacement: No Neurologic Surgery: No Oral Surgery: No Pacemaker: No Thoracic Surgery: No Other Surgery: Yes (PORTX3 PLACED AND REMOVED, gallstones) Social History Alcohol Use: No Tobacco Use: No Substance Use: No Allergies-Medications (Allergen,Severity, Reaction): Coded Allergies: oxycodone (Unverified Adverse Reaction, Severe, Nausea/Vomiting, 08/04/17) AND ITCHING *MDRO Multi-Drug Resistant Organism (Verified Adverse Reaction, Unknown, Cleared 02/08/15, 08/04/17) MRSA (Chest Wound) - 02/2012 MRSA PCR Screen negative 02/06/15 and 02/08/15. Cleared per Infection Control Reported Meds & Prescriptions Reported Meds & Active Scripts Active Keflex (Cephalexin) 500 Mg Cap 500 Mg PO Q12H 10 Days Hydrocodone-Acetamin 10-325 mg (Hydrocodone/Acetaminophen) 10 Mg-325 Mg Tablet 1 Tab PO Q6HR PRN Coreg (Carvedilol) 3.125 Mg Tab 3.125 Mg PO Q12HR 30 Days Lisinopril 5 Mg Tab 2.5 Mg PO DAILY Hydrea (Hydroxyurea) 500 Mg Cap 500 Mg PO DAILY Reported Folic Acid 400 Mcg Tab 400 Mcg PO DAILY Proventil Hfa 6.7 GM Inh (Albuterol Sulfate) 90 Mcg/Act Aer 2 Puff INH Q6H PRN Review of Systems Except as stated in HPI: all other systems reviewed are Neg Physical Exam Narrative GENERAL: SKIN: Warm and dry. HEAD: Atraumatic. Normocephalic. EYES: Pupils equal and round. No scleral icterus. No injection or drainage. ENT: No nasal bleeding or discharge. Mucous membranes pink and moist. Tongue is midline. No uvula deviation. NECK: Trachea midline. No JVD. CARDIOVASCULAR: Regular rate and rhythm. No murmurs, S3, S4. RESPIRATORY: No accessory muscle use. Clear to auscultation. Breath sounds equal bilaterally. GASTROINTESTINAL: Abdomen soft, non-tender, nondistended. Hepatic and splenic margins not palpable. MUSCULOSKELETAL: Extremities without clubbing, cyanosis, or edema. No obvious deformities. Full range of motion of the upper and lower extremity bilaterally. 2+ pulses bilaterally. NEUROLOGICAL: Awake and alert. No obvious cranial nerve deficits. Motor grossly within normal limits. Five out of 5 muscle strength in the arms and legs. Normal speech. PSYCHIATRIC: Appropriate mood and affect; insight and judgment normal. Data Data Last Documented VS Vital Signs Date Time Temp Pulse Resp B/P (MAP) Pulse Ox O2 Delivery O2 Flow Rate FiO2 09/26/17 12:54 94 Room Air 09/26/17 11:53 98.4 89 12 Orders Orders Basic Metabolic Panel (Bmp) (09/26/17 12:21) Complete Blood Count With Diff (09/26/17 12:21) Retic Count (09/26/17 12:21) Urinalysis - C+S If Indicated (09/26/17 12:21) Ecg Monitoring (09/26/17 12:21) Iv Access Insert/Monitor (09/26/17 12:21) Oximetry (09/26/17 12:21) Sodium Chlor 0.9% 1000 Ml Inj (Ns 1000 M (09/26/17 12:21) Diphenhydramine Inj (Benadryl Inj) (09/26/17 12:30) Chest, Single Ap (09/26/17 ) Hydromorphone Pf Inj (Dilaudid Pf Inj) (09/26/17 12:45) Urine Culture (09/26/17 12:15) Hydromorphone Pf Inj (Dilaudid Pf Inj) (09/26/17 14:00) Potassium Chloride (Kcl) (09/26/17 14:45) Ceftriaxone Inj (Rocephin Inj) (09/26/17 14:45) Heparin Central Flush (Heparin Central F (09/26/17 14:45) Sodium Chloride 0.9% Flush (Ns Flush) (09/26/17 14:45) Heparin Central Flush (Heparin Central F (09/26/17 14:45) Hydromorphone Pf Inj (Dilaudid Pf Inj) (09/26/17 15:15) Diphenhydramine Inj (Benadryl Inj) (09/26/17 15:15) Ketorolac Inj (Toradol Inj) (09/26/17 15:15) Admit Order (Ed Use Only) (09/26/17 16:14) Labs Laboratory Tests Test 09/26/17 12:15 09/26/17 12:30 09/26/17 13:30 Urine Color YELLOW Urine Turbidity HAZY Urine pH 6.5 Urine Specific [place] 1.014 Urine Protein 30 mg/dL Urine Glucose (UA) NEG mg/dL Urine Ketones NEG mg/dL Urine Occult Blood TRACE Urine Nitrite NEG Urine Bilirubin NEG Urine Urobilinogen 2.0 MG/DL Urine Leukocyte Esterase SMALL Urine RBC 3 /hpf Urine WBC 9 /hpf Urine Squamous Epithelial Cells 17 /hpf Urine Renal Epithelial Cells 1 /hpf Urine Bacteria MOD /hpf Urine Hyaline Casts 1 /lpf Urine Mucus FEW /lpf Microscopic Urinalysis Comment CULTURE INDICATED Blood Urea Nitrogen 6 MG/DL Creatinine 0.67 MG/DL Random Glucose 94 MG/DL Calcium Level 8.9 MG/DL Sodium Level 139 MEQ/L Potassium Level 3.1 MEQ/L Chloride Level 108 MEQ/L Carbon Dioxide Level 26.1 MEQ/L Anion Gap 5 MEQ/L Estimat Glomerular Filtration Rate 127 ML/MIN White Blood Count 12.6 TH/MM3 Red Blood Count 2.78 MIL/MM3 Hemoglobin 8.4 GM/DL Hematocrit 22.5 % Mean Corpuscular Volume 81.0 FL Mean Corpuscular Hemoglobin 30.3 PG Mean Corpuscular Hemoglobin Concent 37.4 % Red Cell Distribution Width 17.6 % Platelet Count 496 TH/MM3 Mean Platelet Volume 8.7 FL Neutrophils (%) (Auto) 66.6 % Lymphocytes (%) (Auto) 18.8 % Monocytes (%) (Auto) 12.5 % Eosinophils (%) (Auto) 1.7 % Basophils (%) (Auto) 0.4 % Neutrophils # (Auto) 8.4 TH/MM3 Lymphocytes # (Auto) 2.4 TH/MM3 Monocytes # (Auto) 1.6 TH/MM3 Eosinophils # (Auto) 0.2 TH/MM3 Basophils # (Auto) 0.1 TH/MM3 CBC Comment AUTO DIFF Differential Total Cells Counted 100 Neutrophils % (Manual) 67 % Band Neutrophils % 1 % Lymphocytes % 25 % Monocytes % 4 % Basophils % 3 % Neutrophils # (Manual) 8.6 TH/MM3 Differential Comment FINAL DIFF MANUAL Platelet Estimate HIGH Platelet Morphology Comment NORMAL Spherocytes 2+ Sickle Cells 1+ Ovalocytes 2+ Acanthocytes 1+ Reticulocyte Count 1.7 % Absolute Reticulocyte Count 46.1 MIL/L MDM Medical Decision Making Medical Screen Exam Complete: Yes Emergency Medical Condition: Yes Medical Record Reviewed: Yes Interpretation(s) CBC & BMP Diagram 09/26/17 12:30 Calcium Level 8.9 09/26/17 13:30 ret count WNL Last Impressions Chest X-Ray 09/26/17 0000 Signed Impressions: Service Date/Time: Thursday, September 26, 2017 13:57 - CONCLUSION: Mild cardiac silhouette enlargement unchanged. No acute cardiopulmonary disease identified. Jason Robert MD UA shows possible UTI Differential Diagnosis Sickle cell disease versus sickle cell anemia versus electrolyte abnormality versus dehydration versus bleeding Narrative Course 27-year-old female that presents to the ED for eval is no sickle cell pain. Patient was properly examined and was found to have signs and symptoms consistent with sickle disease. She does have a significant history of sickle cell and has had transfusions in the past. She last had one here in July. Per patient she had one 2 weeks ago at her supervisor records change's office. She gets them usually during her period and she is about to hit her period. Labs and imaging here were essentially unremarkable other than for appears to be slight anemia. Her anemia does not appear to be as severe as before. It is in the 8s. Reticulocyte count is actually normal for her. She does appear to have possible UTI. Case was discussed in my attending who agrees the patient can be discharged. Patient was already given 2 mg of hydromorphone, Benadryl, fluids. She was given a shot of Rocephin here to help with her infection. When I went to talk to the patient about her results she was crying in the room still a lot of pain. Had that discussion neck began with my attending about this and he recommends admission for pain management as patient still in severe pain. Patient was already given 2 mg of hydromorphone. She was given 1 more dilaudid and Benadryl as well as Toradol. Patient still in pain. Spoke with Residents who agreed to admission to their service. Diagnosis Primary Impression: Sickle cell anemia with pain Additional Impression: UTI (urinary tract infection) Qualified Codes: N30.00 - Acute cystitis without hematuria Admitting Information Admitting Physician Requests: Observation Scripts Cephalexin (Keflex) 500 Mg Cap 500 MG PO Q12H for Infection for 10 Days, #20 CAP 0 Refills Prov: Christian Rubio MD 09/26/17 Roberto Velásquez Sep 26, 2017 12:46
[2017-09-26 12:54] VITALS: O2SAT 94
[2017-09-26 13:39] LABS: BICARBONATE 26.1 MEQ/L (21.0-32.0); CALCIUM 8.9 MG/DL (8.5-10.1); CREATININE 0.67 MG/DL (0.50-1.00)
[2017-09-26 13:40] LABS: BACTERIA, URINE MOD /hpf; BILIRUBIN, URINE NEG (NEG); BLOOD, URINE TRACE (NEG); GLUCOSE,URINE NEG (NEG); HYALINE CAST, URINE 1 /lpf (RARE); KETONE, URINE NEG (NEG); MUCUS URINE FEW /lpf (OCC); NITRITE,URINE NEG (NEG); PH, URINE 6.5 (5.0-8.5); RENAL EPITHELIAL CELLS 1 /hpf; SQUAMOUS EPITHELIAL CELL URINE 17 /hpf (0-5); URINE COLOR YELLOW (YELLW/STRAW); URINE LEUKOCYTE ESTERASE SMALL (NEG)
[2017-09-26] MEDS ORDERED: HYDROmorphone HCL PF 1 MG/ML VIAL IV PUSH ONE ×2 (14:00→15:15)
[2017-09-26 14:24] LABS: AUTOMATED NEUTROPHIL # 8.4 TH/MM3 (1.8-7.7); BASOPHIL # 0.1 TH/MM3 (0-0.2); BASOPHIL % 0.4 % (0.0-2.0); EOSINOPHIL # 0.2 TH/MM3 (0-0.4); EOSINOPHIL % 1.7 % (0.0-4.0); HEMATOCRIT 22.5 % (35.0-46.0); HEMOGLOBIN 8.4 GM/DL (11.6-15.3); LYMPH % 18.8 % (9.0-44.0); LYMPHOCYTE # 2.4 TH/MM3 (1.0-4.8); MEAN CORPUSCULAR HEMOGLOBIN 30.3 PG (27.0-34.0); MEAN PLATELET VOLUME 8.7 FL (7.0-11.0); MONO % 12.5 % (0.0-8.0); MONOCYTE # 1.6 TH/MM3 (0-0.9); NEUT % 66.6 % (16.0-70.0); PLATELET COUNT 496 TH/MM3 (150-450); RED BLOOD COUNT 2.78 MIL/MM3 (4.00-5.30); RED CELL DISTRIBUTION WIDTH 17.6 % (11.6-17.2); RETIC # 46.1 MIL/L (20.0-150.0); RETIC % 1.7 % (0.4-3.0); WHITE BLOOD COUNT 12.6 TH/MM3 (4.0-11.0)
[2017-09-26 14:25] LABS: MEAN CORPUSCULAR HGB CONC 37.4 % (32.0-36.0)
--- NOTE | 2017-09-26 14:28 | RADRPT ---
EXAM DATE/TIME: 09/26/2017 13:57 [facility] COMPARISON: CHEST SINGLE AP, August 04, 2017, 11:13. INDICATIONS : Chest pain. MEDICAL HISTORY : Hypertension. Sickle Cell disease. A-fib. SURGICAL HISTORY : Infusaport. ENCOUNTER: Initial ACUITY: 3 days PAIN SCORE: 10/10 LOCATION: Bilateral chest FINDINGS: Single AP view of the chest. Right-sided [id number] again seen. The lungs are clear. Cardiac silho uette mildly enlarged but unchanged. No evidence of pleural effusion or pneumothorax. CONCLUSION: Mild cardiac silhouette enlargement unchanged. No acute cardiopulmonary disease i dentified. Jason Robert MD on September 26, 2017 at 14:25 Board Certified Radiologist. This report was verified electronically.
[2017-09-26] MEDS ORDERED: CEPH-460 PO (14:36)
[2017-09-26] MEDS ORDERED: SODIUM CHLORIDE 0.9% FLUSH 10 ML FLUSH IVF PRN (14:45)
[2017-09-26] MEDS ORDERED: cefTRIAXone INJ 1,000 MG in SODIUM CHLORIDE 0.9% INJ 100 ML IV ONE (14:45)
[2017-09-26] MEDS ORDERED: POTASSIUM CHLORIDE 10 MEQ CAP PO ONE ×2 (14:45→17:45)
[2017-09-26 14:59] LABS: BANDS 1 % (0-6); BASOPHILS 3 % (0-2); LYMPHOCYTES 25 % (9-44); MONOCYTES 4 % (0-8); NEUTROPHIL # MANUAL DIFF 8.6 TH/MM3 (1.8-7.7); POLYS (SEG NEUTROPHILS) 67 % (16-70)
[2017-09-26 15:00] LABS: ACANTHOCYTES 1+ (NORMAL); OVALOCYTES 2+ (NORMAL); SICKLE CELLS 1+ (NORMAL); SPHEROCYTES 2+ (NORMAL)
[2017-09-26] MEDS ORDERED: KETOROLAC TROMETHAMINE 30 MG/ML (IVP) VIAL IV PUSH ONE (15:15)
--- NOTE | 2017-09-26 16:28 | HHI.HP ---
HPI Service Family Medicine Primary Care Physician Unknown Admission Diagnosis acute sickle cell pain crisis, UTI Diagnoses: International Travel<30 Days: No Contact w/Intl Traveler<30days: No Known Affected Area: No History of Present Illness 27 y/o F, LMP 09/05-09/10, hx of sickle cell disease with multiple exacerbations with periods, comes in with pain x 2 days. She has been taking her regular medications and alleviations for acute sickle crisis (folic acid, hydroxyurea, Lortab 10 for pain, hot bath, hydration) but nothing worked so she decided to come in today. She is feeling pain all over her body. The pain is 10/10 pain and worst in her legs and back. She is stable able to walk without difficulty. She feels like her period is about to come on; she can feel a mild stomach ache in her lower abdominal area. She has asthma and CHF as well; she has continued to have difficulties breathing but attributes this to her asthma. She has continued using her inhaler BID and has not had to increase the frequency with this exacerbation. She came to the hospital in July during her period for similar sx and had to stay in the hospital for 3-4 days for pain management and transfusion. She has had nausea but no vomiting. Denies constipation/diarrhea. She has felt mildly dizzy. No fever/chills. Review of Systems Constitutional: DENIES: Weight gain, Weight loss Endocrine: DENIES: Polydipsia, Polyuria Eyes: DENIES: Diplopia, Eye inflammation Ears, nose, mouth, throat: DENIES: Oral lesions, Throat pain Respiratory: DENIES: Cough, Wheezing Cardiovascular: DENIES: PND, Lower Extremity Edema Gastrointestinal: DENIES: Constipation, Diarrhea Genitourinary: DENIES: Dysmenorrhea, Dyspareunia Musculoskeletal: DENIES: Neck pain Integumentary: DENIES: Rash Immunologic/allergic: DENIES: Urticaria Neurologic: DENIES: Headache Psychiatric: DENIES: Confusion, Depression Past Family Social History Past Medical History Past Medical History Sickle cell anemia, with multiple exacerbations and port placement for transfusions - 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 (doesn't come to [place] ), next appt on 10/01 hx of Iron overload Cardiomyopathy with EF of 40% - no staff development educator right now, has only seen one in the hospital, PCP in [place] has been trying to refer her for staff development educator Asthma - wants her to see pulm, has no appt yet Past Surgical History gallstone removal 3 ports placed Allergies: Coded Allergies: oxycodone (Unverified Adverse Reaction, Severe, Nausea/Vomiting, 08/04/17) AND ITCHING *MDRO Multi-Drug Resistant Organism (Verified Adverse Reaction, Unknown, Cleared 02/08/15, 08/04/17) MRSA (Chest Wound) - 02/2012 MRSA PCR Screen negative 02/06/15 and 02/08/15. Cleared per Infection Control Family History Family History Sister - sickle cell Mom & dad - Sickle trait Social History lives with boyfriend and baby denies smoking, rare alcohol use, denies drug use Physical Exam Vital Signs Vital Signs Date Time Temp Pulse Resp B/P (MAP) Pulse Ox O2 Delivery O2 Flow Rate FiO2 09/26/17 12:54 94 Room Air 09/26/17 11:53 98.4 89 12 128/66 (86) 99 Physical Exam GENERAL: This is a well-nourished, well-developed patient, in no apparent distress. SKIN: No rashes, ecchymoses or lesions. Cool and dry. HEAD: Atraumatic. Normocephalic. No temporal or scalp tenderness. EYES: Pupils equal round and reactive. Extraocular motions intact. No scleral icterus. No injection or drainage. ENT: Nose without bleeding, purulent drainage or septal hematoma. Throat without erythema, tonsillar hypertrophy or exudate. Uvula midline. Airway patent. NECK: Trachea midline. No JVD or lymphadenopathy. Supple, nontender, no meningeal signs. CARDIOVASCULAR: Regular rate and rhythm without murmurs, gallops, or rubs. RESPIRATORY: Clear to auscultation. Breath sounds equal bilaterally, with the exception of diminished sounds in RLL. No wheezes, rales, or rhonchi. GASTROINTESTINAL: Abdomen soft, non-tender, nondistended. No hepato-splenomegaly , or palpable masses. No guarding. MUSCULOSKELETAL: Extremities without clubbing, cyanosis, or edema. No joint tenderness, effusion, or edema noted. No calf tenderness. Negative Homans sign bilaterally. Moderate tenderness of both lower extremities to palpation, no erythema or swelling. NEUROLOGICAL: Awake and alert. Cranial nerves II through XII intact. Motor and sensory grossly within normal limits. Five out of 5 muscle strength in all muscle groups. Normal speech. Laboratory Laboratory Tests Test 09/26/17 12:15 09/26/17 12:30 09/26/17 13:30 Urine Color YELLOW Urine Turbidity HAZY Urine pH 6.5 Urine Specific [place] 1.014 Urine Protein 30 Urine Glucose (UA) NEG Urine Ketones NEG Urine Occult Blood TRACE Urine Nitrite NEG Urine Bilirubin NEG Urine Urobilinogen 2.0 Urine Leukocyte Esterase SMALL Urine RBC 3 Urine WBC 9 Urine Squamous Epithelial Cells 17 Urine Renal Epithelial Cells 1 Urine Bacteria MOD Urine Hyaline Casts 1 Urine Mucus FEW Microscopic Urinalysis Comment CULTURE INDICATED Blood Urea Nitrogen 6 Creatinine 0.67 Random Glucose 94 Calcium Level 8.9 Sodium Level 139 Potassium Level 3.1 Chloride Level 108 Carbon Dioxide Level 26.1 Anion Gap 5 Estimat Glomerular Filtration Rate 127 White Blood Count 12.6 Red Blood Count 2.78 Hemoglobin 8.4 Hematocrit 22.5 Mean Corpuscular Volume 81.0 Mean Corpuscular Hemoglobin 30.3 Mean Corpuscular Hemoglobin Concent 37.4 Red Cell Distribution Width 17.6 Platelet Count 496 Mean Platelet Volume 8.7 Neutrophils (%) (Auto) 66.6 Lymphocytes (%) (Auto) 18.8 Monocytes (%) (Auto) 12.5 Eosinophils (%) (Auto) 1.7 Basophils (%) (Auto) 0.4 Neutrophils # (Auto) 8.4 Lymphocytes # (Auto) 2.4 Monocytes # (Auto) 1.6 Eosinophils # (Auto) 0.2 Basophils # (Auto) 0.1 CBC Comment AUTO DIFF Differential Total Cells Counted 100 Neutrophils % (Manual) 67 Band Neutrophils % 1 Lymphocytes % 25 Monocytes % 4 Basophils % 3 Neutrophils # (Manual) 8.6 Differential Comment FINAL DIFF MANUAL Platelet Estimate HIGH Platelet Morphology Comment NORMAL Spherocytes 2+ Sickle Cells 1+ Ovalocytes 2+ Acanthocytes 1+ Reticulocyte Count 1.7 Absolute Reticulocyte Count 46.1 Date/Time Source Procedure Growth Status 09/26/17 12:15 Urine Random Urine Urine Culture Pending Worksheet Result Diagram: 09/26/17 1330 09/26/17 1230 Septic Shock Reassessment Septic shock perfusion: reassessment completed Caprini VTE Risk Assessment Caprini VTE Risk Assessment: No/Low Risk (score <= 1) Caprini Risk Assessment Model Point Value = 1 Point Value = 2 Point Value = 3 Point Value = 5 Age 41-60 Minor surgery BMI > 25 kg/m2 Swollen legs Varicose veins or History of unexplained or recurrent spontaneous Oral contraceptives or hormone replacement Sepsis (< 1 month) Serious lung disease, including pneumonia (< 1 month) Abnormal pulmonary function Acute myocardial infarction Congestive heart failure (< 1 month) History of inflammatory bowel disease Medical patient at bed rest Age 61-74 Arthroscopic surgery Major open surgery (> 45 min) Laparoscopic surgery (> 45 min) Malignancy Confined to bed (> 72 hours) Immobilizing plaster cast Central venous access Age >= 75 History of VTE Family history of VTE Factor V Leiden Prothrombin [id number] Lupus anticoagulant Anticardiolipin antibodies Elevated serum homocysteine Heparin-induced thrombocytopenia Other congenital or acquired thrombophilia Stroke (< 1 month) Elective arthroplasty Hip, pelvis, or leg fracture Acute spinal cord injury (< 1 month) Prophylaxis Regimen Total Risk Factor Score Risk Level Prophylaxis Regimen 0-1 Low Early ambulation 2 Moderate Order ONE of the following: *Sequential Compression Device (SCD) *Heparin 5000 units SQ BID 3-4 Higher Order ONE of the following medications: *Heparin 5000 units SQ TID *Enoxaparin/Lovenox 40 mg SQ daily (WT < 150 kg, CrCl > 30 mL/min) *Enoxaparin/Lovenox 30 mg SQ daily (WT < 150 kg, CrCl > 10-29 mL/min) *Enoxaparin/Lovenox 30 mg SQ BID (WT < 150 kg, CrCl > 30 mL/min) AND/OR *Sequential Compression Device (SCD) 5 or more Highest Order ONE of the following medications: *Heparin 5000 units SQ TID (Preferred with Epidurals) *Enoxaparin/Lovenox 40 mg SQ daily (WT < 150 kg, CrCl > 30 mL/min) *Enoxaparin/Lovenox 30 mg SQ daily (WT < 150 kg, CrCl > 10-29 mL/min) *Enoxaparin/Lovenox 30 mg SQ BID (WT < 150 kg, CrCl > 30 mL/min) AND *Sequential Compression Device (SCD) Assessment and Plan Assessment and Plan 27 y/o F, hx of sickle cell with frequent crisis and CHF, presents with acute pain crisis. Code Status Full Code Discussed Condition With Dr. Foster Problem List: (1) Sickle cell anemia with pain ICD Codes: D57.00 - Hb-SS disease with crisis, unspecified Status: Acute Plan: Pain Crisis O2 as needed, NC for O2 sat >92% D5 1/4 NS @ 70 mls/hr (caution with CHF) COnt Folic acid Cont daily vitamin Cont hydroxyurea Cont Pain management (2) Hypokalemia ICD Codes: E87.6 - Hypokalemia Status: Acute Plan: s/p 40 meq STAT f/u BMP in AM (3) UTI (urinary tract infection) ICD Codes: N39.0 - Urinary tract infection, site not specified Status: Acute Plan: f/u Ucx Cont Rocephin IV q24h (4) Non-ischemic cardiomyopathy ICD Codes: I42.8 - Other cardiomyopathies Status: Acute Plan: Asymptomatic hx of CHF with EF 40% f/u BNP in AM CXR: cardiomegaly, no acute findings (5) Asthma ICD Codes: J45.909 - Unspecified asthma, uncomplicated Status: Chronic Plan: Continue bronchodilator treatments as needed (6) fen/ppx Status: Acute Plan: Fluids: D5 1/4 NS as above Electrolytes: low K, f/u BMP and supplement accordingly Nutrition: Regular diet GI ppx: N/A DVT ppx: lovenox 40 SQ d Problem Qualifiers (1) UTI (urinary tract infection): Qualified Codes: N30.00 - Acute cystitis without hematuria Naila Doshi MD R2 Sep 26, 2017 16:28
[2017-09-26] MEDS ORDERED: SODIUM CHLORIDE 0.9% FLUSH 10 ML FLUSH IV FLUSH PRN (17:00)
[2017-09-26] MEDS ORDERED: RESP: ALBUTEROL 2.5 MG/IPRATROPIUM 0.5 MG NEB (PRN) INH (17:00)
[2017-09-26] MEDS ORDERED: HYDROmorphone HCL PF 1 MG/ML VIAL IV PUSH PRN (17:00)
[2017-09-26] MEDS ORDERED: diphenhydrAMINE HCL 25 MG CAP PO PRN (17:00)
[2017-09-26] MEDS ORDERED: ACETAMINOPHEN 325 MG TAB PO PRN (17:00)
[2017-09-26] MEDS ORDERED: RESP: ALBUTEROL 2.5 MG/3 ML NEB (PRN) INH ×2 (17:00→22:45)
[2017-09-26] MEDS ORDERED: PROMETHAZINE INJ 25 MG/ML VIAL IV-CENTRAL PRN (17:00)
[2017-09-26 17:18] VITALS: BP 119/60; PULSE 73; RESP 15; O2SAT 96
--- NOTE | 2017-09-26 17:50 | RADRPT ---
EXAM DATE/TIME: 09/26/2017 17:34 [facility] COMPARISON: CHEST PA & LAT, September 13, 2016, 1:01. INDICATIONS : Acute chest syndrome. hx sickle cell. MEDICAL HISTORY : Hypertension. Sickle Cell disease. A-fib. SURGICAL HISTORY : Infusaport. ENCOUNTER: Initial ACUITY: 1 day PAIN SCORE: 5/10 LOCATION: Bilateral chest FINDINGS: PA and lateral views of the chest. Right-sided [id number] remains in place. Mild elevation of the right hemidiaphragm unchanged. Lungs are clear. Cardiac silhouette is mildly enlarged but unchanged. No evidence of pleural effusion or pneumothorax. Cholecystectomy clips in the right upper quadrant of the abdomen. CONCLUSION: Mild chronic cardiac silhouette enlargement. No acute cardiopulmonary disease identified. Jason Robert MD on September 26, 2017 at 17:46 Board Certified Radiologist. This report was verified electronically.
[2017-09-26 19:06] LABS: ALBUMIN 4.4 GM/DL (3.4-5.0); C-REACTIVE PROTEIN 0.29 MG/DL (0.00-0.30); DIRECT BILIRUBIN ADULT 0.3 MG/DL (0.0-0.2)
[2017-09-26 19:08] LABS: INDIRECT BILIRUBIN 1.4 MG/DL (0.0-0.8); TOTAL BILIRUBIN ADULT 1.7 MG/DL (0.2-1.0); TOTAL PROTEIN 8.6 GM/DL (6.4-8.2)
[2017-09-26 20:00] VITALS: PULSE 78
[2017-09-26] MEDS: SODIUM CHLORIDE 0.9% FLUSH 10 ML FLUSH IV FLUSH SCH (21:00)
[2017-09-26] MEDS: ZOLPIDEM TARTRATE 10 MG TAB PO PRN (21:56)
[2017-09-26] MEDS: ENOXAPARIN SODIUM 40 MG/0.4 ML SYRINGE SQ SCH (21:56)
[2017-09-26] MEDS: CARVEDILOL 3.125 MG TAB PO SCH (21:56)
[2017-09-26] MEDS: DOCUSATE SODIUM 100 MG CAP PO SCH (21:56)
[2017-09-26] MEDS: HYDROmorphone HCL PF 2 MG/ML VIAL IV PUSH PRN (21:57)
[2017-09-26] MEDS ORDERED: DEXTROSE 5%-NACL 0.225% INJ 1,000 ML IV SCH (22:00)
--- NOTE | 2017-09-26 22:13 | HHI.FPPN ---
Subjective Remarks Attending medical note: Pleasant 27-year-old woman admitted with painful sickle cell crisis with a history of sickle cell anemia. Patient describes her pain as "all over her body ". A 10 over 10 in her extremities and back. No recent nausea or vomiting, patient does have a history of asthma which has been reasonably stable, she uses an albuterol inhaler when necessary. Old records were reviewed. Patient does have a history of a cardiomyopathy clinically on the basis of iron overload and last echocardiogram in the spring was a 40-45% ejection fraction. Patient has a primary physician and the primary physician has been trying to get her established with a tung nut grower. Medications have included lisinopril, Benadryl, Ambien, Lortab, hydroxyurea, carvedilol, and folic acid. Patient was queried about Exjade that was recommended in spring for iron over load, not clear as to why she is not taking it.. Please refer to the resident's history and physical for complete discussion with past medical history, social history, family history and review of systems. Objective Vitals Vital Signs Date Time Temp Pulse Resp B/P (MAP) Pulse Ox O2 Delivery O2 Flow Rate FiO2 09/26/17 18:58 09/26/17 17:18 73 15 119/60 (79) 96 Room Air 09/26/17 12:54 94 Room Air 09/26/17 11:53 98.4 89 12 128/66 (86) 99 Result Diagram: 09/26/17 1330 09/26/17 1230 Objective Remarks Vital signs noted. Afebrile. Heart rhythm. Gen. appearance: Young woman who is resting reasonably comfortably in bed. HEENT: Nonlocalizing. Lungs: Clear to auscultation. Cardiac: S3 versus S4?, No significant murmurs appreciated. Abdomen: Soft, active bowel sounds, no masses or organomegaly. Extremities: Without edema, feet are warm and dry, calves are supple. Labs and imaging reviewed. Hemoglobin 8.4 hematocrit 22.5 platelets 496,000. Potassium 3.1. LDH 382. Chest x-ray does not show any new infiltrates. Ferritin level in the spring was 4993. A/P Assessment and Plan Clinical assessment: A 27-year-old woman with hemoglobin SS admitted with painful crisis. No evidence to suggest acute chest syndrome at this time. Sickle cell disease with acute exacerbation and painful crisis Cardiomyopathy clinically presumed to be on the basis of iron overload with an ejection fraction of 40% in the spring Potassium 3.1 ferritin 4991 in the spring Asthma Patient seen and examined. Case reviewed and discussed with resident team. Agree with plan of care is discussed with me and documented in the resident note. Problem List: (1) Sickle cell anemia with pain ICD Codes: D57.00 - Hb-SS disease with crisis, unspecified Status: Acute (2) Hypokalemia ICD Codes: E87.6 - Hypokalemia Status: Acute (3) UTI (urinary tract infection) ICD Codes: N39.0 - Urinary tract infection, site not specified Status: Acute (4) Non-ischemic cardiomyopathy ICD Codes: I42.8 - Other cardiomyopathies Status: Acute Problem Qualifiers (1) UTI (urinary tract infection): Qualified Codes: N30.00 - Acute cystitis without hematuria Alfonzo Almodovar MD Sep 26, 2017 22:12
[2017-09-26 23:10] LABS: AUTOMATED NEUTROPHIL # 11.2 TH/MM3 (1.8-7.7); BASOPHIL # 0.3 TH/MM3 (0-0.2); BASOPHIL % 1.5 % (0.0-2.0); EOSINOPHIL # 0.3 TH/MM3 (0-0.4); EOSINOPHIL % 1.6 % (0.0-4.0); HEMATOCRIT 21.8 % (35.0-46.0); HEMOGLOBIN 7.3 GM/DL (11.6-15.3); LYMPH % 27.4 % (9.0-44.0); LYMPHOCYTE # 5.2 TH/MM3 (1.0-4.8); MEAN CELL VOLUME 81.9 FL (80.0-100.0); MEAN CORPUSCULAR HEMOGLOBIN 27.2 PG (27.0-34.0); MEAN CORPUSCULAR HGB CONC 33.2 % (32.0-36.0); MEAN PLATELET VOLUME 8.5 FL (7.0-11.0); MONO % 11.1 % (0.0-8.0); MONOCYTE # 2.1 TH/MM3 (0-0.9); NEUT % 58.4 % (16.0-70.0); PLATELET COUNT 478 TH/MM3 (150-450); RED BLOOD COUNT 2.67 MIL/MM3 (4.00-5.30); RED CELL DISTRIBUTION WIDTH 17.7 % (11.6-17.2); WHITE BLOOD COUNT 19.1 TH/MM3 (4.0-11.0)
[2017-09-27] VITALS (13 sets, daily range): BP systolic 93–120; BP diastolic 50–74; PULSE 81–130; RESP 16–21; TEMP 98–99.5; O2SAT 90–97
[2017-09-27] MEDS ORDERED: RESP: ALBUTEROL 2.5 MG/IPRATROPIUM 0.5 MG NEB (SCH) NEB
[2017-09-27 00:11] LABS: BANDS 1 % (0-6); BASOPHILS 1 % (0-2); LYMPHOCYTES 29 % (9-44); METAMYELOCYTES 1 % (0-1); MONOCYTES 4 % (0-8); NEUTROPHIL # MANUAL DIFF 12.6 TH/MM3 (1.8-7.7); POLYS (SEG NEUTROPHILS) 64 % (16-70)
[2017-09-27 00:14] LABS: SICKLE CELLS 1+ (NORMAL); TARGET CELLS 1+ (NORMAL)
[2017-09-27] MEDS: diphenhydrAMINE HCL 50 MG/ML VIAL IV PUSH PRN ×6 (01:50→22:00)
[2017-09-27] MEDS: HYDROmorphone HCL PF 2 MG/ML VIAL IV PUSH PRN ×6 (01:52→22:00)
[2017-09-27 06:59] LABS: BICARBONATE 24.4 MEQ/L (21.0-32.0); CALCIUM 8.6 MG/DL (8.5-10.1); CREATININE 0.73 MG/DL (0.50-1.00)
[2017-09-27 07:07] LABS: AUTOMATED NEUTROPHIL # 12.8 TH/MM3 (1.8-7.7); BASOPHIL # 0.3 TH/MM3 (0-0.2); BASOPHIL % 1.4 % (0.0-2.0); EOSINOPHIL # 0.4 TH/MM3 (0-0.4); EOSINOPHIL % 1.9 % (0.0-4.0); LYMPH % 24.8 % (9.0-44.0); LYMPHOCYTE # 5.3 TH/MM3 (1.0-4.8); MEAN CELL VOLUME 81.9 FL (80.0-100.0); MEAN CORPUSCULAR HEMOGLOBIN 28.2 PG (27.0-34.0); MEAN CORPUSCULAR HGB CONC 34.4 % (32.0-36.0); MEAN PLATELET VOLUME 8.4 FL (7.0-11.0); MONO % 11.7 % (0.0-8.0); MONOCYTE # 2.5 TH/MM3 (0-0.9); NEUT % 60.2 % (16.0-70.0); PLATELET COUNT 452 TH/MM3 (150-450); RED BLOOD COUNT 2.48 MIL/MM3 (4.00-5.30); RED CELL DISTRIBUTION WIDTH 17.5 % (11.6-17.2); WHITE BLOOD COUNT 21.3 TH/MM3 (4.0-11.0)
[2017-09-27 07:12] LABS: HEMATOCRIT 20.3 % (35.0-46.0)
[2017-09-27 07:13] LABS: RETIC # 46.8 MIL/L (20.0-150.0); RETIC % 1.9 % (0.4-3.0)
[2017-09-27] MEDS ORDERED: SODIUM CHLOR 0.9% 250 ML INJ 250 ML IV ONE (07:30)
[2017-09-27] MEDS ORDERED: FUROSEMIDE 20 MG/2 ML VIAL IV PUSH ONE (08:00)
[2017-09-27 08:56] LABS: BANDS 1 % (0-6); BASOPHILS 2 % (0-2); LYMPHOCYTES 32 % (9-44); MONOCYTES 6 % (0-8); NEUTROPHIL # MANUAL DIFF 12.8 TH/MM3 (1.8-7.7); POLYS (SEG NEUTROPHILS) 59 % (16-70)
[2017-09-27 08:58] LABS: OVALOCYTES 1+ (NORMAL)
[2017-09-27] MEDS: MULTIVITAMIN TAB PO SCH (08:59)
[2017-09-27] MEDS: CARVEDILOL 3.125 MG TAB PO SCH ×2 (08:59→20:27)
[2017-09-27] MEDS: DOCUSATE SODIUM 100 MG CAP PO SCH ×2 (09:00→20:27)
[2017-09-27] MEDS: SODIUM CHLORIDE 0.9% FLUSH 10 ML FLUSH IV FLUSH SCH ×2 (09:00→20:27)
[2017-09-27] MEDS: POTASSIUM CHLORIDE 10 MEQ CONTROLLED RELEASE TAB PO SCH ×2 (09:00→09:07)
[2017-09-27] MEDS: FOLIC ACID 1 MG TAB PO SCH (09:07)
[2017-09-27] MEDS: LISINOPRIL 5 MG TAB PO SCH (09:08)
[2017-09-27] MEDS: HYDROXYUREA 500 MG CAP PO SCH (09:09)
[2017-09-27] MEDS: POTASSIUM CHLORIDE 10 MEQ CAP PO SCH (12:18)
[2017-09-27] MEDS: SODIUM CHLOR 0.9% 1000 ML INJ 1,000 ML IV SCH ×3 (12:22→23:19)
--- NOTE | 2017-09-27 13:43 | HHI.FPPN ---
Subjective Remarks Pt seen and examined this morning. No acute events overnight. Pt has been afebrile, vital signs stable. Pt reports pain all over her body. She denies acute chest pain, shortness of breath, abdominal pain. She reports that she has had negative MRSA testing in the past and would like contact precautions to be discontinued. She has no additional acute concerns. Will repeat MRSA screen. (Sonia Munoz MD R3) Objective Vitals Vital Signs Date Time Temp Pulse Resp B/P (MAP) Pulse Ox O2 Delivery O2 Flow Rate FiO2 09/27/17 12:05 98.3 87 21 103/52 (69) 93 09/27/17 08:05 98.3 84 20 108/54 (72) 94 09/27/17 04:00 98.3 88 18 106/55 (72) 97 09/27/17 04:00 Room Air 09/27/17 04:00 90 09/27/17 01:35 83 09/27/17 00:00 Room Air 09/27/17 00:00 123 09/27/17 00:00 98.0 130 18 120/64 (82) 96 09/26/17 20:00 78 09/26/17 18:58 09/26/17 17:18 73 15 119/60 (79) 96 Room Air I/O 09/26/17 09/26/17 09/26/17 09/27/17 09/27/17 09/27/17 07:00 15:00 23:00 07:00 15:00 23:00 # Voids 2 (Sonia Munoz MD R3) Result Diagram: 09/27/17 0543 09/27/17 0543 Objective Remarks GENERAL: This is a well-nourished, well-developed patient SKIN: Cool and dry. HEAD: Atraumatic. Normocephalic. EYES: Extraocular motions intact. No scleral icterus. No injection or drainage. ENT: Nose without bleeding, purulent drainage. Airway patent. CARDIOVASCULAR: Regular rate and rhythm without murmurs, gallops, or rubs. RESPIRATORY: Clear to auscultation. Breath sounds equal bilaterally. No wheezes , rales, or rhonchi. GASTROINTESTINAL: Abdomen soft, non-tender, nondistended. No hepato-splenomegaly , or palpable masses. No guarding. MUSCULOSKELETAL: Extremities without clubbing, cyanosis, or edema. No calf tenderness. Negative Homans sign bilaterally. Moderate tenderness of both lower extremities to palpation, no erythema or swelling. NEUROLOGICAL: Awake and alert. Motor and sensory grossly within normal limits. Normal speech. (Sonia Munoz MD R3) A/P Assessment and Plan Clinical assessment: A 27-year-old woman with hemoglobin SS admitted with painful crisis. No evidence to suggest acute chest syndrome at this time. Sickle cell disease with acute exacerbation and painful crisis Cardiomyopathy clinically presumed to be on the basis of iron overload with an ejection fraction of 40% in the spring Potassium 3.1 ferritin 4991 in the spring Asthma Discharge Planning Anticipate discharge once pain is well controlled and pt has transitioned to oral pain medications and hemoglobin is stable, likely 1-2 days. (Sonia Munoz MD R3) Assessment and Plan Patient seen and examined on the morning of 09/28/17. Case discussed and reviewed with resident team. Agree with plan of care is discussed with me and documented in the resident note. (Alfonzo Almodovar MD) Problem List: (1) Sickle cell anemia with pain ICD Codes: D57.00 - Hb-SS disease with crisis, unspecified Status: Acute Plan: Pt with acute Pain Crisis Pt to be transfused one unit of PRBCs, continue to monitor H&H O2 as needed, NC for O2 sat >92% See fluids below Cont home Folic acid Cont daily vitamin Cont home hydroxyurea Cont Pain management: Dilaudid 1mg IV prn Pain 1-5, 2mg IV prn pain 6-10, transition to PO once tolerated Benadryl IV as needed for itching (2) Hypokalemia ICD Codes: E87.6 - Hypokalemia Status: Acute Plan: Potassium Chloride 40meq capsules daily -Continue to monitor (3) UTI (urinary tract infection) ICD Codes: N39.0 - Urinary tract infection, site not specified Status: Acute Plan: f/u Ucx Cont Rocephin IV q24h, treatment duration 3 days, switch to PO medication of discontinue earlier if culture results return (4) Non-ischemic cardiomyopathy ICD Codes: I42.8 - Other cardiomyopathies Status: Acute Plan: Asymptomatic hx of CHF with EF 40% Continue home medications 2D Echo ordered Use caution with IV fluids, reduce fluids once PO intake has improved BNP within normal limits at 17 CXR: cardiomegaly, no acute findings (5) Asthma ICD Codes: J45.909 - Unspecified asthma, uncomplicated Status: Chronic Plan: Continue bronchodilator treatments as needed (6) fen/ppx Status: Acute Plan: Fluids: NS 110mls/hr, Reduce once PO intake improves. Electrolytes: low K, f/u BMP and supplement accordingly Nutrition: Regular diet GI ppx: N/A DVT ppx: lovenox 40 SQ d (Sonia Munoz MD R3) Problem Qualifiers (1) UTI (urinary tract infection): Qualified Codes: N30.00 - Acute cystitis without hematuria Sonia Munoz MD R3 Sep 27, 2017 13:43 Alfonzo Almodovar MD Sep 28, 2017 10:43
[2017-09-27] MEDS: cefTRIAXone INJ 1,000 MG in SODIUM CHLORIDE 0.9% INJ 100 ML IV SCH (13:53)
[2017-09-27 14:53] LABS: BICARBONATE 27.2 MEQ/L (21.0-32.0); CALCIUM 8.2 MG/DL (8.5-10.1); CREATININE 0.73 MG/DL (0.50-1.00)
[2017-09-27 21:13] LABS: HEMATOCRIT 23.5 % (35.0-46.0); HEMOGLOBIN 8.2 GM/DL (11.6-15.3)
[2017-09-27] MEDS: ZOLPIDEM TARTRATE 10 MG TAB PO PRN (21:59)
[2017-09-27] MEDS: ENOXAPARIN SODIUM 40 MG/0.4 ML SYRINGE SQ SCH (22:00)
[2017-09-28] VITALS (11 sets, daily range): BP systolic 104–120; BP diastolic 52–68; PULSE 79–102; RESP 16–18; TEMP 98.3–99; O2SAT 95–99
[2017-09-28] MEDS: diphenhydrAMINE HCL 50 MG/ML VIAL IV PUSH PRN ×6 (01:52→22:20)
[2017-09-28] MEDS: HYDROmorphone HCL PF 2 MG/ML VIAL IV PUSH PRN ×6 (01:52→22:19)
[2017-09-28] MEDS: LISINOPRIL 5 MG TAB PO SCH (08:23)
[2017-09-28] MEDS: POTASSIUM CHLORIDE 10 MEQ CAP PO SCH (08:28)
[2017-09-28] MEDS: MULTIVITAMIN TAB PO SCH (08:28)
[2017-09-28] MEDS: DOCUSATE SODIUM 100 MG CAP PO SCH ×2 (08:28→21:00)
[2017-09-28] MEDS: FOLIC ACID 1 MG TAB PO SCH (08:29)
[2017-09-28] MEDS: SODIUM CHLORIDE 0.9% FLUSH 10 ML FLUSH IV FLUSH SCH ×2 (08:29→21:00)
[2017-09-28] MEDS: CARVEDILOL 3.125 MG TAB PO SCH ×2 (08:29→21:25)
[2017-09-28] MEDS: HYDROXYUREA 500 MG CAP PO SCH (08:30)
--- NOTE | 2017-09-28 10:46 | HHI.FPPN ---
Subjective Remarks Pt seen and examined bedside this morning. Pt ambulating with difficulty due to severe leg pain and body pain. She is urinating without difficulty. Continues to complain of pain. Denies CP/SOB/dizzyness. (Naila Doshi MD R2) Objective Vitals Vital Signs Date Time Temp Pulse Resp B/P (MAP) Pulse Ox O2 Delivery O2 Flow Rate FiO2 09/28/17 08:53 96 21 09/28/17 08:17 16 09/28/17 08:03 98.4 83 16 109/52 (71) 95 09/28/17 04:00 Room Air 09/28/17 04:00 82 09/28/17 04:00 98.7 85 18 115/59 (77) 99 09/28/17 00:00 Room Air 09/28/17 00:00 98.3 89 18 104/63 (77) 95 09/28/17 00:00 92 09/27/17 20:37 97 21 09/27/17 20:00 98.8 100 18 100/61 (74) 94 09/27/17 20:00 Room Air 09/27/17 20:00 96 09/27/17 16:12 98.8 86 18 93/50 90 09/27/17 16:04 98.7 89 20 96/51 (66) 96 09/27/17 16:00 87 09/27/17 15:55 99.5 97 16 115/74 94 09/27/17 12:05 98.3 87 21 103/52 (69) 93 09/27/17 12:00 81 I/O 09/27/17 09/27/17 09/27/17 09/28/17 09/28/17 09/28/17 07:00 15:00 23:00 07:00 15:00 23:00 Intake Total 1490 ml Balance 1490 ml Intake Oral 480 ml IV Total 1000 ml Blood Product IV Normal Saline Flush 10 ml # Voids 2 4 5 # Bowel Movements 0 (Naila Doshi MD R2) Result Diagram: 09/27/17 2030 09/27/17 2475 Objective Remarks GENERAL: This is a well-nourished, well-developed patient SKIN: Cool and dry. HEAD: Atraumatic. Normocephalic. EYES: Extraocular motions intact. No scleral icterus. No injection or drainage. ENT: Nose without bleeding, purulent drainage. Airway patent. CARDIOVASCULAR: Regular rate and rhythm without murmurs, gallops, or rubs. RESPIRATORY: Clear to auscultation. Breath sounds equal bilaterally. No wheezes , rales, or rhonchi. GASTROINTESTINAL: Abdomen soft, non-tender, nondistended. No hepato-splenomegaly , or palpable masses. No guarding. MUSCULOSKELETAL: Extremities without clubbing, cyanosis, or edema. No calf tenderness. Negative Homans sign bilaterally. Moderate tenderness of both lower extremities to palpation, no erythema or swelling. NEUROLOGICAL: Awake and alert. Motor and sensory grossly within normal limits. Normal speech. (Naila Doshi MD R2) A/P Assessment and Plan Clinical assessment: A 27-year-old woman with hemoglobin SS admitted with painful crisis. No evidence to suggest acute chest syndrome at this time. Sickle cell disease with acute exacerbation and painful crisis Cardiomyopathy clinically presumed to be on the basis of iron overload with an ejection fraction of 40% in the spring Potassium 3.1 ferritin 4991 in the spring Asthma Discharge Planning Anticipate discharge once pain is well controlled and pt has transitioned to oral pain medications and hemoglobin is stable, likely 1-2 days. (Naila Doshi MD R2) Assessment and Plan Patient seen and examined. Case reviewed and discussed with resident team. Agree with plan of care as discussed with me and documented in the resident note. (Alfonzo Almodovar MD) Problem List: (1) Sickle cell anemia with pain ICD Codes: D57.00 - Hb-SS disease with crisis, unspecified Status: Acute Plan: Pt with acute Pain Crisis s/p 1U PRBC, Hb 8.2 f/u CBC this AM O2 as needed, NC for O2 sat >92% See fluids below Cont home Folic acid Cont daily vitamin Cont home hydroxyurea Cont Pain management: Dilaudid 1mg IV prn Pain 1-5, 2mg IV prn pain 6-10, transition to PO once tolerated Benadryl IV as needed for itching f/u with Heme/Onc consult to determine if Iron chelator Rx is necessary (2) Hypokalemia ICD Codes: E87.6 - Hypokalemia Status: Acute Plan: Potassium Chloride 40meq capsules daily -Continue to monitor f/u BMP this AM (3) UTI (urinary tract infection) ICD Codes: N39.0 - Urinary tract infection, site not specified Status: Acute Plan: UA: small leuk est, mod bacteria UCx: 50-100,000 bacteria In light of comorbid conditions, continue Rx for UTI (09/26-09/28) Cont Rocephin IV q24h, treatment duration 3 days (4) Non-ischemic cardiomyopathy ICD Codes: I42.8 - Other cardiomyopathies Status: Acute Plan: Asymptomatic hx of CHF with EF 40% Continue home medications 2D Echo ordered Use caution with IV fluids, reduce fluids once PO intake has improved BNP within normal limits at 17 CXR: cardiomegaly, no acute findings (5) Asthma ICD Codes: J45.909 - Unspecified asthma, uncomplicated Status: Chronic Plan: Continue bronchodilator treatments as needed (6) fen/ppx Status: Acute Plan: Fluids: NS 110mls/hr, Reduce once PO intake improves. Electrolytes: low K, f/u BMP and supplement accordingly Nutrition: Regular diet GI ppx: N/A DVT ppx: lovenox 40 SQ d (Naila Doshi MD R2) Problem Qualifiers (1) UTI (urinary tract infection): Qualified Codes: N30.00 - Acute cystitis without hematuria Naila Doshi MD R2 Sep 28, 2017 10:46 Alfonzo Almodovar MD Sep 28, 2017 12:08
[2017-09-28 12:24] LABS: AUTOMATED NEUTROPHIL # 7.7 TH/MM3 (1.8-7.7); BASOPHIL # 0.2 TH/MM3 (0-0.2); BASOPHIL % 1.3 % (0.0-2.0); EOSINOPHIL # 0.9 TH/MM3 (0-0.4); EOSINOPHIL % 6.5 % (0.0-4.0); HEMATOCRIT 23.2 % (35.0-46.0); HEMOGLOBIN 8.4 GM/DL (11.6-15.3); LYMPH % 23.3 % (9.0-44.0); LYMPHOCYTE # 3.2 TH/MM3 (1.0-4.8); MEAN CELL VOLUME 82.6 FL (80.0-100.0); MEAN CORPUSCULAR HEMOGLOBIN 29.7 PG (27.0-34.0); MEAN CORPUSCULAR HGB CONC 35.9 % (32.0-36.0); MEAN PLATELET VOLUME 8.1 FL (7.0-11.0); MONOCYTE # 1.6 TH/MM3 (0-0.9); NEUT % 56.9 % (16.0-70.0); PLATELET COUNT 487 TH/MM3 (150-450); RED BLOOD COUNT 2.81 MIL/MM3 (4.00-5.30); RED CELL DISTRIBUTION WIDTH 17.8 % (11.6-17.2); WHITE BLOOD COUNT 13.5 TH/MM3 (4.0-11.0)
[2017-09-28] MEDS: cefTRIAXone INJ 1,000 MG in SODIUM CHLORIDE 0.9% INJ 100 ML IV SCH (12:37)
[2017-09-28 12:39] LABS: BICARBONATE 23.9 MEQ/L (21.0-32.0); CALCIUM 8.6 MG/DL (8.5-10.1); CREATININE 0.66 MG/DL (0.50-1.00)
[2017-09-28] MEDS: SODIUM CHLOR 0.9% 1000 ML INJ 1,000 ML IV SCH (13:52)
[2017-09-28] MEDS: ENOXAPARIN SODIUM 40 MG/0.4 ML SYRINGE SQ SCH (21:25)
[2017-09-28] MEDS: ZOLPIDEM TARTRATE 10 MG TAB PO PRN (22:18)
[2017-09-29] VITALS (7 sets, daily range): BP systolic 102–180; BP diastolic 55–66; PULSE 60–100; RESP 17–20; TEMP 98.3–99; O2SAT 90–96
[2017-09-29] MEDS: diphenhydrAMINE HCL 50 MG/ML VIAL IV PUSH PRN ×6 (02:13→22:16)
[2017-09-29] MEDS: HYDROmorphone HCL PF 2 MG/ML VIAL IV PUSH PRN ×6 (02:16→22:17)
[2017-09-29] MEDS: SODIUM CHLOR 0.9% 1000 ML INJ 1,000 ML IV SCH ×3 (02:20→12:24)
[2017-09-29 06:46] LABS: BICARBONATE 24.3 MEQ/L (21.0-32.0); CALCIUM 8.1 MG/DL (8.5-10.1); CREATININE 0.63 MG/DL (0.50-1.00)
--- NOTE | 2017-09-29 07:06 | MB ---
cc: WILLY NOVA M.D. DATE OF CONSULTATION 09/28/2017 REASON FOR CONSULTATION Consult requested by Dr. Doshi for evaluation of iron overload from multiple transfusion. HISTORY OF PRESENT ILLNESS Marce is a 27-year-old Afro-[place] female. She has a history of sickle-cell anemia and has had multiple blood transfusions in the past. She has developed transfusion hemosiderosis. At one point, she was on Exjade through Dr. Oropeza. Dr. Oropeza now has retired. She has switched the black top roller to Dr. Derik Gamino at [facility]. The patient is now admitted to [facility] for acute sickle cell painful crisis and urinary tract infection. She has been getting treatment and she is feeling better now. The patient has developed cardiomyopathy with an ejection fraction of 40% most likely due to the iron overload. According to the records, Dr. Gamino wanted her to see a hang gliding instructor and industrial truck mechanic. However, the patient has not made the appointment as yet. Since she is in the hospital, serum ferritin was checked and came back at 3894 which is very high. I have been asked to see the patient for iron overload. When I was talking with the patient and trying to get the history, she becomes very emotional and starts crying. She states that she still has pain from the sickle-cell crisis, but she claims that it is improving. She had one unit of blood transfusion and her hemoglobin has improved to 8.4. She appears to have upper respiratory infection and urinary tract infection as well. The rest of the review of systems is negative. PAST MEDICAL HISTORY 1. Sickle-cell anemia with multiple painful crises. 2. History of her transfusion hemosiderosis. 3. Cardiomyopathy with ejection fraction of 40%. 4. Asthma PAST SURGICAL HISTORY 1. Cholecystectomy 2. Ctbwyh-H-Aamv placement. ALLERGIES CODEINE FAMILY HISTORY Significant for sickle cell disease. SOCIAL HISTORY The patient does not smoke cigarettes, drinks alcohol occasionally. PHYSICAL EXAM This is a well-developed, well-nourished Afro-[place] female in no apparent distress. VITAL SIGNS: Temperature 98.4, heart rate is 101, respiratory rate is 17, blood pressure is 118/60, O2 suture 95%. HEENT: PERRLA, EOMI. Sclerae is icteric. No oral lesions noted. NECK: No lymphadenopathy. LUNGS: Clear. No wheezing, rhonchi or rales. HEART: Regular rate and rhythm. ABDOMEN: Soft and nontender. EXTREMITIES: No pedal edema. NEUROLOGIC: Awake, alert, and oriented times three. SKIN: No significant lesions noted. ASSESSMENT 1. Sickle-cell anemia with a painful crisis. 2. Transfusion hemosiderosis was on Exjade but not anymore. 3. Cardiomyopathy with ejection fraction of 40% most likely due to iron overload. PLAN I have reviewed her available records and I have discussed with the patient regarding the issue of the iron overload which I have been asked to see her for that. She used to see Dr. Oropeza and was on Exjade, however since Dr. Oropeza has retired, she is not taking Exjade anymore. She has switched the black top roller to Dr. Derik Gamino recently. Dr. Gamino has recommended her to see industrial truck mechanic as well as hang gliding instructor first. When I asked the patient why she is not taking Exjade, she becomes very emotional and starts crying. She states that she told the admitting doctor that she does not want to talk about the Exjade, the iron overload or the heart damage. She also told me that she does not want to talk to me about the iron overload and heart damage. I asked her whether she wants us to arrange for the Exjade or she can have her black top roller, Dr. Gamino, arrange it for her. She states that she wanted Dr. Gamino to arrange Exjade and follow her for that. Since the patient becomes very emotional and she does not want to talk about the iron overload or Exjade, I will sign off on the case and I will be available as needed. Please reconsult if you have any further questions. Patient had a serum ferritin last year October of 4080 and in November of last year the ferritin was 4993. Today, her serum ferritin is 3894 which is still significantly high. I strongly recommend that she should be on iron chelating agent either Exjade or Jadenu. I will leave it up to her primary Modern Dancer, Dr. Gamino, for further recommendations. Thank you for asking my opinion. I will sign off on the case. José Manuel Nova MD /CAREN /7:49 PM /6:49 AM AL
[2017-09-29] MEDS: SODIUM CHLORIDE 0.9% FLUSH 10 ML FLUSH IV FLUSH SCH ×2 (07:14→21:00)
[2017-09-29] MEDS: DOCUSATE SODIUM 100 MG CAP PO SCH ×2 (09:00→21:00)
[2017-09-29] MEDS: CARVEDILOL 3.125 MG TAB PO SCH ×2 (09:00→21:36)
[2017-09-29] MEDS: FOLIC ACID 1 MG TAB PO SCH (09:00)
[2017-09-29] MEDS: HYDROXYUREA 500 MG CAP PO SCH (09:00)
[2017-09-29] MEDS: POTASSIUM CHLORIDE 10 MEQ CAP PO SCH (09:00)
[2017-09-29] MEDS: MULTIVITAMIN TAB PO SCH (09:00)
[2017-09-29] MEDS: LISINOPRIL 5 MG TAB PO SCH (09:00)
[2017-09-29] MEDS ORDERED: RESP: ALBUTEROL 2.5 MG/3 ML NEB (PRN) NEB (11:30)
[2017-09-29] MEDS ORDERED: ALBUTEROL SULFATE 90 MCG/ACT HFA 8 GM INHALER INH ONE (11:30)
--- NOTE | 2017-09-29 11:37 | HHI.FPPN ---
Subjective Remarks Patient evaluated by resident team on rounds. No acute events overnight, vital signs within normal limits. Patient states that her pain is somewhat improved but she is still "struggling". She continues to complain of leg pain, worse in her right leg with occasional cramping. Otherwise her only complaint is occasional chest tightness that is consistent with prior asthma-like symptoms. Denies nausea/vomiting, diarrhea, worsening chest pain, worsening shortness of breath. Objective Vitals Vital Signs Date Time Temp Pulse Resp B/P (MAP) Pulse Ox O2 Delivery O2 Flow Rate FiO2 09/29/17 09:13 Room Air 09/29/17 08:00 98.5 77 20 117/58 (77) 95 09/29/17 04:00 99.0 90 17 119/58 (78) 96 09/29/17 03:01 17 09/29/17 00:04 100 09/29/17 00:00 98.5 60 18 102/55 (71) 92 09/28/17 21:25 Room Air 09/28/17 20:05 92 09/28/17 20:00 98.9 102 18 120/68 (85) 98 09/28/17 16:18 98.4 101 17 118/60 (79) 95 09/28/17 16:00 81 09/28/17 12:22 99.0 80 17 115/56 (75) 97 09/28/17 12:09 79 I/O 09/28/17 09/28/17 09/28/17 09/29/17 09/29/17 09/29/17 07:00 15:00 23:00 07:00 15:00 23:00 Intake Total 720 ml 100 ml Balance 720 ml 100 ml Intake Oral 720 ml IV Total 100 ml # Voids 5 5 # Bowel Movements 1 Result Diagram: 09/28/17 1136 09/29/17 0555 Objective Remarks GENERAL: This is a well-nourished, well-developed patient resting in bed in NAD SKIN: Cool and dry. HEAD: Atraumatic. Normocephalic. EYES: Extraocular motions intact. No scleral icterus. No injection or drainage. ENT: Nose without bleeding, purulent drainage. Airway patent. CARDIOVASCULAR: Regular rate and rhythm without murmurs, gallops, or rubs. RESPIRATORY: Clear to auscultation. Breath sounds equal bilaterally. No wheezes , rales, or rhonchi. GASTROINTESTINAL: Abdomen soft, non-tender, nondistended. No hepato-splenomegaly , or palpable masses. No guarding. MUSCULOSKELETAL: Extremities without clubbing, cyanosis, or edema. No calf tenderness. Negative Homans sign bilaterally. Moderate tenderness of both lower extremities to palpation, no erythema or swelling. NEUROLOGICAL: Awake and alert. Motor and sensory grossly within normal limits. Normal speech. A/P Assessment and Plan Patient seen and examined. Case reviewed and discussed with resident team. Agree with plan of care as discussed with me and documented in the resident note. Discharge Planning Anticipate discharge once pain is well controlled and pt has transitioned to oral pain medications and hemoglobin is stable, likely 1-2 days. Problem List: (1) Sickle cell anemia with pain ICD Codes: D57.00 - Hb-SS disease with crisis, unspecified Status: Acute Plan: Pt with acute Pain Crisis s/p 1U PRBC, Hb 8.2 Hemoglobin stable at 8.4 O2 as needed, NC for O2 sat >92% See fluids below Cont home Folic acid Cont daily vitamin Cont home hydroxyurea Cont Pain management: Dilaudid 1mg IV prn Pain 1-5, 2mg IV prn pain 6-10, transition to PO once tolerated Benadryl IV as needed for itching Heme/onc consulted as patient found to have elevated ferritin at 3894 Their recommendations were to start iron chelation therapy,, but patient refused treatment at that time and desires to initiate iron chelation therapy with her primary oncologist as an outpatient. (2) Hypokalemia ICD Codes: E87.6 - Hypokalemia Status: Acute Plan: Potassium Chloride 40meq capsules daily -Continue to monitor, within normal limits from 09/27-09/29 f/u a.m. BMP (3) UTI (urinary tract infection) ICD Codes: N39.0 - Urinary tract infection, site not specified Status: Acute Plan: UA: small leuk est, mod bacteria UCx: 50-100,000 bacteria In light of comorbid conditions, continue Rx for UTI (09/26-09/28) Completed 3 days treatment of Rocephin IV every 24 No complaints of dysuria at this time (4) Non-ischemic cardiomyopathy ICD Codes: I42.8 - Other cardiomyopathies Status: Acute Plan: Asymptomatic hx of CHF with EF 40% Continue home medications 2D Echo ordered Use caution with IV fluids, reduce fluids once PO intake has improved BNP within normal limits at 17 CXR: cardiomegaly, no acute findings (5) Asthma ICD Codes: J45.909 - Unspecified asthma, uncomplicated Status: Chronic Plan: Patient has history of asthma Currently well controlled Pro Air inhaler as needed Albuterol nebulizers as needed (6) fen/ppx Status: Acute Plan: Fluids: NS 110mls/hr, Reduce once PO intake improves. Electrolytes: Was hypokalemic on admission, currently within normal limits but following daily BMPs Nutrition: Regular diet GI ppx: N/A DVT ppx: lovenox 40 SQ d Problem Qualifiers (1) UTI (urinary tract infection): Qualified Codes: N30.00 - Acute cystitis without hematuria Edmar Lopez MD R1 Sep 29, 2017 11:37
--- NOTE | 2017-09-29 17:05 | ECHRPT ---
Indication: cardiomyopathy CONCLUSIONS Mildly dilated left ventricle. The left ventricular systolic function is moderately reduced with an estimated ejection fraction in the range of 40% The left atrial size is mildly dilated. [id number] mitral valve regurgitation. There is trace tricuspid valve regurgitation. The pulmonary valve is not well visualized. BP: / HR: Rhythm: MEASUREMENTS (Male / Female) Normal Values Technical Quality:Very technically difficult study 2D ECHO LV Diastolic Diameter PLAX 5.8 cm 4.2 - 5.9 / 3.9 - 5.3 cm LV Systolic Diameter PLAX 4.8 cm IVS Diastolic Thickness 1.3 cm 0.6 - 1.0 / 0.6 - 0.9 cm LVPW Diastolic Thickness 1.3 cm 0.6 - 1.0 / 0.6 - 0.9 cm LV Relative Wall Thickness 0.4 RV Internal Dim ED PLAX 2.2 cm M-MODE Aortic Root Diameter MM 3.1 cm LA Systolic Diameter MM 4.3 cm LA Ao Ratio MM 1.4 AV Cusp Separation MM 2.1 cm DOPPLER LV E' Lateral Velocity 5.9 cm/s LV E' Septal Velocity 7.9 cm/s FINDINGS LEFT VENTRICLE Mildly dilated left ventricle. The left ventricular systolic function is moderately reduced with an estimated ejection fraction in the range of 40% RIGHT VENTRICLE Normal right ventricular size and systolic function. LEFT ATRIUM The left atrial size is mildly dilated. RIGHT ATRIUM The right atrial size is normal. ATRIAL SEPTUM Normal atrial septal thickness without atrial level shunting by limited color doppler interrogation. AORTA The aortic root and proximal ascending aorta are normal in size on limited imaging. MITRAL VALVE Structurally normal mitral valve. [id number] mitral valve regurgitation. AORTIC VALVE Trileaflet aortic valve. No aortic valve stenosis or regurgitation. TRICUSPID VALVE Structurally normal tricuspid valve. There is trace tricuspid valve regurgitation. PULMONARY VALVE The pulmonary valve is not well visualized. VESSELS The inferior vena cava is normal in size. PERICARDIUM No pericardial effusion. Cj Sheffield MD (Electronically Signed) Final Date:29 September 2017 17:04
[2017-09-29] MEDS: ENOXAPARIN SODIUM 40 MG/0.4 ML SYRINGE SQ SCH (21:34)
[2017-09-29] MEDS: ZOLPIDEM TARTRATE 10 MG TAB PO PRN (22:16)
[2017-09-30] VITALS: BP 110/64; PULSE 76; RESP 18; TEMP 98.3; O2SAT 96
[2017-09-30] MEDS: SODIUM CHLOR 0.9% 1000 ML INJ 1,000 ML IV SCH ×2 (02:15→12:45)
[2017-09-30] MEDS: diphenhydrAMINE HCL 50 MG/ML VIAL IV PUSH PRN ×5 (02:19→21:04)
[2017-09-30] MEDS: HYDROmorphone HCL PF 2 MG/ML VIAL IV PUSH PRN ×5 (02:19→21:08)
[2017-09-30 07:16] LABS: AUTOMATED NEUTROPHIL # 9.2 TH/MM3 (1.8-7.7); BASOPHIL # 0.2 TH/MM3 (0-0.2); BASOPHIL % 1.5 % (0.0-2.0); EOSINOPHIL # 0.8 TH/MM3 (0-0.4); EOSINOPHIL % 5.3 % (0.0-4.0); HEMATOCRIT 23.5 % (35.0-46.0); HEMOGLOBIN 8.2 GM/DL (11.6-15.3); LYMPH % 22.9 % (9.0-44.0); LYMPHOCYTE # 3.5 TH/MM3 (1.0-4.8); MEAN CELL VOLUME 83.5 FL (80.0-100.0); MEAN CORPUSCULAR HGB CONC 34.8 % (32.0-36.0); MEAN PLATELET VOLUME 8.4 FL (7.0-11.0); MONO % 9.7 % (0.0-8.0); MONOCYTE # 1.5 TH/MM3 (0-0.9); NEUT % 60.6 % (16.0-70.0); PLATELET COUNT 542 TH/MM3 (150-450); RED BLOOD COUNT 2.81 MIL/MM3 (4.00-5.30); WHITE BLOOD COUNT 15.2 TH/MM3 (4.0-11.0)
[2017-09-30 07:34] LABS: BICARBONATE 22.8 MEQ/L (21.0-32.0); CALCIUM 8.1 MG/DL (8.5-10.1); CREATININE 0.6 MG/DL (0.50-1.00)
[2017-09-30 08:00] VITALS: BP 121/69; PULSE 86; RESP 20; TEMP 99.1; O2SAT 98
[2017-09-30] MEDS: DOCUSATE SODIUM 100 MG CAP PO SCH ×2 (09:00→21:00)
[2017-09-30] MEDS: HYDROXYUREA 500 MG CAP PO SCH (09:00)
[2017-09-30] MEDS: SODIUM CHLORIDE 0.9% FLUSH 10 ML FLUSH IV FLUSH SCH ×2 (09:00→21:09)
--- NOTE | 2017-09-30 09:21 | HHI.FPPN ---
Subjective Remarks Patient evaluated by residency team on rounds. No acute events overnight, vital signs remained stable. Patient states the pain is still not improved to the point where she feels comfortable going home. She continues to feel cramp-like pain in her right thigh, especially when walking. Denies worsening chest pain, shortness of breath, dysuria, fevers or chills. (Edmar Lopez MD R1) Objective Vitals Vital Signs Date Time Temp Pulse Resp B/P (MAP) Pulse Ox O2 Delivery O2 Flow Rate FiO2 09/30/17 08:00 99.1 86 20 121/69 (86) 98 09/30/17 00:00 98.3 76 18 110/64 (79) 96 09/29/17 22:15 Room Air 09/29/17 20:00 98.7 80 18 109/66 (80) 96 09/29/17 16:00 99.0 79 20 117/65 (82) 90 09/29/17 12:00 98.3 75 20 180/66 (104) 96 I/O 09/29/17 09/29/17 09/29/17 09/30/17 09/30/17 09/30/17 07:00 15:00 23:00 07:00 15:00 23:00 Intake Total 100 ml 1000 ml 0 ml 1000 ml Balance 100 ml 1000 ml 0 ml 1000 ml Intake Oral 0 ml IV Total 100 ml 1000 ml 1000 ml # Voids 5 4 # Bowel Movements 1 (Edmar Lopez MD R1) Result Diagram: 09/30/17 0615 09/30/17 0615 Objective Remarks GENERAL: This is a well-nourished, well-developed patient resting in bed in [facility] SKIN: Cool and dry. HEAD: Atraumatic. Normocephalic. EYES: Extraocular motions intact. No scleral icterus. No injection or drainage. ENT: Nose without bleeding, purulent drainage. Airway patent. CARDIOVASCULAR: Regular rate and rhythm without murmurs, gallops, or rubs. RESPIRATORY: Clear to auscultation. Breath sounds equal bilaterally. No wheezes , rales, or rhonchi. GASTROINTESTINAL: Abdomen soft, non-tender, nondistended. No hepato-splenomegaly , or palpable masses. No guarding. MUSCULOSKELETAL: Extremities without clubbing, cyanosis, or edema. No calf tenderness. Negative Homans sign bilaterally. No asymmetric swelling, erythema. NEUROLOGICAL: Awake and alert. Motor and sensory grossly within normal limits. Normal speech. (Edmar Lopez MD R1) A/P Assessment and Plan 27-year-old female with history of sickle cell anemia and CHF (EF 40%) the presented to the ED with acute pain crisis. Subsequently found to have UTI that was treated with ceftriaxone 3 days. Discharge Planning Anticipate discharge once pain is well controlled and pt has transitioned to oral pain medications and hemoglobin is stable, likely 1-2 days. (Edmar Lopez MD R1) Attending Attestation Patient seen and examined, discussed with resident team. I agree with assessment and management as documented and discussed with me. (Debbie Murray MD) Problem List: (1) Sickle cell anemia with pain ICD Codes: D57.00 - Hb-SS disease with crisis, unspecified Status: Acute Plan: Pt with acute Pain Crisis s/p 1U PRBC, Hb 8.2 Hemoglobin stable at 8.2 O2 as needed, NC for O2 sat >92% See fluids below Cont home Folic acid Cont daily vitamin Cont home hydroxyurea Heme/onc consulted as patient found to have elevated ferritin at 3894 Their recommendations were to start iron chelation therapy, but patient refused treatment at that time and desires to initiate iron chelation therapy with her primary oncologist as an outpatient. Starting home Jennings regimen, Jennings 10 mg every 6 hours scheduled, Dilaudid 0.5 mg IV every 6 hours for pain scale 1-5, Dilaudid 1 mg IV push every 6 hours as needed pain scale 6-10 Benadryl IV as needed for itching (2) Leg pain, right ICD Codes: M79.604 - Pain in right leg Plan: Patient complaining of unilateral leg pain, involving the right leg particularly the thigh area Describes pain as cramp-like and worse with walking/standing. Pain not consistent with prior pain crisis Ordered venous ultrasound to rule out DVT on 09/30 - study was negative for DVT Electrolytes within normal limits Likely secondary to pain crisis, will monitor for now (3) Hypokalemia ICD Codes: E87.6 - Hypokalemia Status: Acute Plan: Potassium Chloride 40meq capsules daily -Continue to monitor, within normal limits from 09/27-09/30 f/u a.m. BMP (4) UTI (urinary tract infection) ICD Codes: N39.0 - Urinary tract infection, site not specified Status: Acute Plan: UA: small leuk est, mod bacteria UCx: 50-100,000 bacteria In light of comorbid conditions, continue Rx for UTI (09/26-09/28) Completed 3 days treatment of Rocephin IV every 24 No complaints of dysuria at this time (5) Non-ischemic cardiomyopathy ICD Codes: I42.8 - Other cardiomyopathies Status: Acute Plan: Asymptomatic hx of CHF with EF 40% Continue home medications of carvedilol 3.125 mg 2 times a day, lisinopril 2.5 mg daily 2D Echo during this hospitalization showing mildly dilated left ventricle, ejection fraction 40% Use caution with IV fluids, giving 110 mL per hour currently BNP within normal limits at 17 CXR: cardiomegaly, no acute findings Patient may benefit from Entresto, will inquire about muffler installer/cardiology follow-up as outpatient (6) Asthma ICD Codes: J45.909 - Unspecified asthma, uncomplicated Status: Chronic Plan: Patient has history of asthma Currently well controlled Pro Air inhaler as needed Albuterol nebulizers as needed (7) fen/ppx Status: Acute Plan: Fluids: NS 110mls/hr, Electrolytes: Was hypokalemic on admission, currently within normal limits but following daily BMPs Nutrition: Regular diet GI ppx: N/A DVT ppx: lovenox 40 SQ d (Edmar Lopez MD R1) Problem Qualifiers (1) UTI (urinary tract infection): Qualified Codes: N30.00 - Acute cystitis without hematuria Edmar Lopez MD R1 Sep 30, 2017 09:21 Debbie Murray MD Oct 01, 2017 14:10
[2017-09-30] MEDS: MULTIVITAMIN TAB PO SCH (10:21)
[2017-09-30] MEDS: POTASSIUM CHLORIDE 10 MEQ CAP PO SCH (10:21)
[2017-09-30] MEDS: FOLIC ACID 1 MG TAB PO SCH (10:22)
[2017-09-30] MEDS: CARVEDILOL 3.125 MG TAB PO SCH ×2 (10:22→21:05)
[2017-09-30] MEDS: LISINOPRIL 5 MG TAB PO SCH (10:23)
--- NOTE | 2017-09-30 11:21 | RADRPT ---
EXAM DATE/TIME: 09/30/2017 10:42 [facility] COMPARISON: No previous studies available for comparison. INDICATIONS : Right leg pain. MEDICAL HISTORY : Syncope. Migraines. CHF. Asthma. Dyspnea. Gallstones. GERD. Sickle cell disease. MRSA. SURGICAL HISTORY : Cholecystectomy. Tubal ligation. section. Port placement and removed. ENCOUNTER: Initial ACUITY: 1 day PAIN SCORE: 2/10 LOCATION: Right leg. TECHNIQUE: Venous ultrasound of the leg was performed from the inguinal ligament to the proximal calf. Real-camille e, color Doppler and spectral tracing, compression and augmentation techniques were used. FINDINGS: There is normal compressibility of the deep venous system from the inguinal region to the proximal ca lf. No echogenic clot is seen in the lumen of the common femoral, femoral, popliteal, and posterior tibial veins. There is a normal response of the venous system to proximal and distal augmentation an d respiration. Multiple lymph nodes are noted in the right groin. The largest measures up to 2.8 x 1 .5 x 0.8 cm. CONCLUSION: 1. No evidence of deep venous thrombosis. 2. Multiple lymph nodes in the right groin which appear reactive. Jesus Rodrigez MD on September 30, 2017 at 11:18 Board Certified Radiologist. This report was verified electronically.
[2017-09-30 12:00] VITALS: BP 115/56; PULSE 85; RESP 20; TEMP 98.6; O2SAT 99
[2017-09-30] MEDS ORDERED: ACETAMINOPHEN/HYDROcodone 325 MG/10 MG TAB PO PRN (13:00)
[2017-09-30] MEDS ORDERED: HYDROmorphone HCL PF 2 MG/ML VIAL IV PUSH PRN ×2 (13:00)
[2017-09-30] MEDS ORDERED: HYDROmorphone HCL PF 1 MG/ML VIAL IV PUSH PRN (13:00)
[2017-09-30] MEDS: ACETAMINOPHEN/HYDROcodone 325 MG/10 MG TAB PO SCH ×2 (14:18→19:32)
[2017-09-30 16:00] VITALS: BP 114/64; PULSE 82; RESP 20; TEMP 98.5; O2SAT 97
[2017-09-30 20:00] VITALS: BP 137/83; PULSE 94; RESP 20; TEMP 99.5; O2SAT 98
[2017-09-30] MEDS: ZOLPIDEM TARTRATE 10 MG TAB PO PRN (21:05)
[2017-09-30] MEDS: ENOXAPARIN SODIUM 40 MG/0.4 ML SYRINGE SQ SCH (21:06)
[2017-10-01] VITALS: BP 111/70; PULSE 84; RESP 19; TEMP 98.6; O2SAT 98
[2017-10-01] MEDS: ACETAMINOPHEN/HYDROcodone 325 MG/10 MG TAB PO SCH ×3 (00:55→12:36)
[2017-10-01] MEDS: SODIUM CHLOR 0.9% 1000 ML INJ 1,000 ML IV SCH ×2 (00:56→06:10)
[2017-10-01] MEDS: HYDROmorphone HCL PF 2 MG/ML VIAL IV PUSH PRN ×2 (03:08→09:29)
[2017-10-01] MEDS: diphenhydrAMINE HCL 50 MG/ML VIAL IV PUSH PRN ×2 (03:09→09:29)
[2017-10-01 04:00] VITALS: BP 126/83; PULSE 77; RESP 19; TEMP 98.8; O2SAT 97
[2017-10-01 07:32] LABS: AUTOMATED NEUTROPHIL # 5.9 TH/MM3 (1.8-7.7); BASOPHIL # 0.1 TH/MM3 (0-0.2); BASOPHIL % 0.6 % (0.0-2.0); EOSINOPHIL # 0.8 TH/MM3 (0-0.4); EOSINOPHIL % 6.6 % (0.0-4.0); HEMATOCRIT 22.5 % (35.0-46.0); HEMOGLOBIN 7.8 GM/DL (11.6-15.3); LYMPH % 31.4 % (9.0-44.0); LYMPHOCYTE # 3.7 TH/MM3 (1.0-4.8); MEAN CELL VOLUME 82.9 FL (80.0-100.0); MEAN CORPUSCULAR HEMOGLOBIN 28.6 PG (27.0-34.0); MEAN CORPUSCULAR HGB CONC 34.5 % (32.0-36.0); MEAN PLATELET VOLUME 7.8 FL (7.0-11.0); MONOCYTE # 1.3 TH/MM3 (0-0.9); NEUT % 50.4 % (16.0-70.0); PLATELET COUNT 534 TH/MM3 (150-450); RED BLOOD COUNT 2.72 MIL/MM3 (4.00-5.30); RED CELL DISTRIBUTION WIDTH 17.9 % (11.6-17.2); WHITE BLOOD COUNT 11.8 TH/MM3 (4.0-11.0)
[2017-10-01 07:53] LABS: BICARBONATE 25.1 MEQ/L (21.0-32.0); CALCIUM 8.4 MG/DL (8.5-10.1); CREATININE 0.5 MG/DL (0.50-1.00)
[2017-10-01 08:00] VITALS: BP 133/73; PULSE 77; RESP 20; TEMP 98.1; O2SAT 98
[2017-10-01] MEDS: FOLIC ACID 1 MG TAB PO SCH (09:30)
[2017-10-01] MEDS: LISINOPRIL 5 MG TAB PO SCH (09:30)
[2017-10-01] MEDS: DOCUSATE SODIUM 100 MG CAP PO SCH (09:30)
[2017-10-01] MEDS: MULTIVITAMIN TAB PO SCH (09:30)
[2017-10-01] MEDS: POTASSIUM CHLORIDE 10 MEQ CAP PO SCH (09:30)
[2017-10-01] MEDS: CARVEDILOL 3.125 MG TAB PO SCH (09:30)
[2017-10-01] MEDS: SODIUM CHLORIDE 0.9% FLUSH 10 ML FLUSH IV FLUSH SCH (09:31)
[2017-10-01] MEDS: HYDROXYUREA 500 MG CAP PO SCH (09:35)
--- NOTE | 2017-10-01 10:52 | HHI.DCPOC ---
Discharge Care Plan Diagnosis: (1) Sickle cell crisis Goals to Promote Your Health * To prevent worsening of your condition and complications * To maintain your health at the optimal level Directions to Meet Your Goals Take your medications as prescribed Follow your dietary instruction Follow activity as directed Keep your appointments as scheduled Take your immunizations and boosters as scheduled If your symptoms worsen call your PCP, if no PCP go to Urgent Care Center or Emergency Room Smoking is Dangerous to Your Health. Avoid second hand smoke Call the 24-hour hour crisis hotline for domestic abuse at Desrie Simental MD, R3 Oct 01, 2017 10:52
--- NOTE | 2017-10-01 13:50 | HHI.DS ---
Discharge Summary Admission Date Sep 26, 2017 at 17:36 Discharge Date: Oct 01, 2017 Admitting Diagnosis acute sickle cell pain crisis, UTI (1) Sickle cell anemia with pain ICD Codes: D57.00 - Hb-SS disease with crisis, unspecified Status: Acute (2) Leg pain, right ICD Codes: M79.604 - Pain in right leg (3) UTI (urinary tract infection) ICD Codes: N39.0 - Urinary tract infection, site not specified Status: Acute (4) Non-ischemic cardiomyopathy ICD Codes: I42.8 - Other cardiomyopathies Status: Acute Brief History 27 y/o F, LMP 09/05-09/10, hx of sickle cell disease with multiple exacerbations with periods, comes in with pain x 2 days. She has been taking her regular medications and alleviations for acute sickle crisis (folic acid, hydroxyurea, Lortab 10 for pain, hot bath, hydration) but nothing worked so she decided to come in today. She is feeling pain all over her body. The pain is 10/10 pain and worst in her legs and back. She is stable able to walk without difficulty. She feels like her period is about to come on; she can feel a mild stomach ache in her lower abdominal area. She has asthma and CHF as well; she has continued to have difficulties breathing but attributes this to her asthma. She has continued using her inhaler BID and has not had to increase the frequency with this exacerbation. She came to the hospital in July during her period for similar sx and had to stay in the hospital for 3-4 days for pain management and transfusion. She has had nausea but no vomiting. Denies constipation/diarrhea. She has felt mildly dizzy. No fever/chills. CBC/BMP: 10/01/17 0700 10/01/17 0700 Significant Findings Laboratory Tests Test 09/29/17 05:55 09/30/17 06:15 10/01/17 07:00 Blood Urea Nitrogen 4 MG/DL (7-18) 4 MG/DL (7-18) 4 MG/DL (7-18) Random Glucose 117 MG/DL (74-106) Calcium Level 8.1 MG/DL (8.5-10.1) 8.1 MG/DL (8.5-10.1) 8.4 MG/DL (8.5-10.1) Chloride Level 108 MEQ/L (98-107) 110 MEQ/L (98-107) White Blood Count 15.2 TH/MM3 (4.0-11.0) 11.8 TH/MM3 (4.0-11.0) Red Blood Count 2.81 MIL/MM3 (4.00-5.30) 2.72 MIL/MM3 (4.00-5.30) Hemoglobin 8.2 GM/DL (11.6-15.3) 7.8 GM/DL (11.6-15.3) Hematocrit 23.5 % (35.0-46.0) 22.5 % (35.0-46.0) Red Cell Distribution Width 18.0 % (11.6-17.2) 17.9 % (11.6-17.2) Platelet Count 542 TH/MM3 (150-450) 534 TH/MM3 (150-450) Monocytes (%) (Auto) 9.7 % (0.0-8.0) 11.0 % (0.0-8.0) Eosinophils (%) (Auto) 5.3 % (0.0-4.0) 6.6 % (0.0-4.0) Neutrophils # (Auto) 9.2 TH/MM3 (1.8-7.7) Monocytes # (Auto) 1.5 TH/MM3 (0-0.9) 1.3 TH/MM3 (0-0.9) Eosinophils # (Auto) 0.8 TH/MM3 (0-0.4) 0.8 TH/MM3 (0-0.4) PE at Discharge GENERAL: This is a well-nourished, well-developed patient resting in bed in NAD SKIN: Cool and dry. HEAD: Atraumatic. Normocephalic. EYES: Extraocular motions intact. No scleral icterus. No injection or drainage. ENT: Nose without bleeding, purulent drainage. Airway patent. CARDIOVASCULAR: Regular rate and rhythm without murmurs, gallops, or rubs. RESPIRATORY: Clear to auscultation. Breath sounds equal bilaterally. No wheezes , rales, or rhonchi. GASTROINTESTINAL: Abdomen soft, non-tender, nondistended. No hepato-splenomegaly , or palpable masses. No guarding. MUSCULOSKELETAL: Extremities without clubbing, cyanosis, or edema. No calf tenderness. Negative Homans sign bilaterally. No asymmetric swelling, erythema. NEUROLOGICAL: Awake and alert. Motor and sensory grossly within normal limits. Normal speech. Hospital Course Pt with presented with acute Pain Crisis. Hemoglobin dropped to 7.0 on 09/27 and patient received 1 unit of PRBC. Hemoglobin stabilized at 8.2. Patient was treated with IV fluids, continued on home medications of folic acid and hydroxyurea, and was treated with IV Dilaudid for several days. She was found to have UTI on admission and received ceftriaxone for 3 days. Symptoms resolved. Heme/onc was consulted as patient found to have elevated ferritin at 3894, recommendations were to start iron chelation therapy but patient refused treatment at this time and desired to discuss this with primary oncologist as outpatient. Apart from typical pain crisis locations, patient complained of unilateral lateral thigh pain particularly worse with walking/standing. Ultrasound was ordered to rule out DVT and studies were negative. Patient had a known history of CHF with ejection fraction 40%, all medications of carvedilol and lisinopril were continued. Repeat echo during this hospitalization showed mildly dilated left ventricle with an ejection fraction of 40%. Patient tolerated IV fluids well. Patient was slowly transitioned to by mouth [place] and on 10/01 was determined the patient was safe for discharge. Patient was agreeable to this and plan to follow-up with PCP and oncologist. Pt Condition on Discharge: Stable Discharge Disposition: Discharge Home Discharge Instructions DIET: Follow Instructions for: As Tolerated, No Restrictions Activities you can perform: Regular-No Restrictions Follow up Referrals: Appointment for Follow Up Hematology - 1 Week PCP Follow-up - 1 Week PCP Follow-up Continued Medications: Albuterol 6.7 GM Inh (Proventil Hfa 6.7 GM Inh) 90 Mcg/Act Aer 2 PUFF INH Q6H PRN for SHORTNESS OF BREATH, #1 INHALER 0 Refills Carvedilol (Coreg) 3.125 Mg Tab 3.125 MG PO Q12HR for cardiomyopathy for 30 Days, TAB 0 Refills Folic Acid (Folic Acid) 400 Mcg Tab 400 MCG PO DAILY for Nutritional Supplement, TAB 0 Refills Hydrocodone/Acetaminophen (Hydrocodone-Acetamin 10-325 mg) 10 Mg-325 Mg Tablet 1 TAB PO Q6HR PRN for pain, #30 TAB 0 Refills Hydroxyurea (Hydrea) 500 Mg Cap 500 MG PO DAILY for sickle cell, #30 CAP 0 Refills Lisinopril (Lisinopril) 5 Mg Tab 2.5 MG PO DAILY for heart failure, #30 TAB Discontinued Medications: Cephalexin (Keflex) 500 Mg Cap 500 MG PO Q12H for Infection for 10 Days, #20 CAP 0 Refills Edmar Lopez MD R1 Oct 01, 2017 13:50
--- NOTE | 2017-10-01 13:50 | HHI.FPPN ---
Subjective Remarks No acute events overnight. Vital signs remained stable. Patient states that pain is somewhat improved, an 8 out of 10 today. Continues to complain of occasional right thigh cramping, but otherwise no new complaints. No nausea or vomiting, diarrhea/constipation, chest pain or shortness of breath. (Edmar Lopez MD R1) Objective Vitals Vital Signs Date Time Temp Pulse Resp B/P (MAP) Pulse Ox O2 Delivery O2 Flow Rate FiO2 10/01/17 08:00 Room Air 10/01/17 08:00 98.1 77 20 133/73 (93) 98 10/01/17 04:00 98.8 77 19 126/83 (97) 97 10/01/17 00:54 Room Air 10/01/17 00:00 98.6 84 19 111/70 (84) 98 09/30/17 20:00 Room Air 09/30/17 20:00 99.5 94 20 137/83 (101) 98 09/30/17 16:00 98.5 82 20 114/64 (81) 97 I/O 09/30/17 09/30/17 09/30/17 10/01/17 10/01/17 10/01/17 07:00 15:00 23:00 07:00 15:00 23:00 Intake Total 1000 ml 240 ml 2800 ml Output Total 500 ml Balance 1000 ml 240 ml 2300 ml Intake Oral 240 ml 800 ml IV Total 1000 ml 2000 ml Output Urine Total 500 ml # Voids 4 4 # Bowel Movements 1 0 (Edmar Lopez MD R1) Result Diagram: 10/01/17 0700 10/01/17 0700 Objective Remarks GENERAL: This is a well-nourished, well-developed patient resting in bed in [facility] SKIN: Cool and dry. HEAD: Atraumatic. Normocephalic. EYES: Extraocular motions intact. No scleral icterus. No injection or drainage. ENT: Nose without bleeding, purulent drainage. Airway patent. CARDIOVASCULAR: Regular rate and rhythm without murmurs, gallops, or rubs. RESPIRATORY: Clear to auscultation. Breath sounds equal bilaterally. No wheezes , rales, or rhonchi. GASTROINTESTINAL: Abdomen soft, non-tender, nondistended. No hepato-splenomegaly , or palpable masses. No guarding. MUSCULOSKELETAL: Extremities without clubbing, cyanosis, or edema. No calf tenderness. Negative Homans sign bilaterally. No asymmetric swelling, erythema. NEUROLOGICAL: Awake and alert. Motor and sensory grossly within normal limits. Normal speech. (Edmar Lopez MD R1) A/P Assessment and Plan 27-year-old female with history of sickle cell anemia and CHF (EF 40%) the presented to the ED with acute pain crisis. Subsequently found to have UTI that was treated with ceftriaxone 3 days. Discharge Planning Discharge today (Edmar Lopez MD R1) Attending Attestation Patient seen, examined, and discussed with resident team. I agree with assessment and management as documented and discussed with me. Discharge home today. (Debbie Murray MD) Problem List: (1) Sickle cell anemia with pain ICD Codes: D57.00 - Hb-SS disease with crisis, unspecified Status: Acute Plan: Pt with acute Pain Crisis s/p 1U PRBC, Hb 8.2 Hemoglobin stable at 7.8 O2 as needed, NC for O2 sat >92% See fluids below Cont home Folic acid Cont daily vitamin Cont home hydroxyurea Heme/onc consulted as patient found to have elevated ferritin at 3894 Their recommendations were to start iron chelation therapy, but patient refused treatment at that time and desires to initiate iron chelation therapy with her primary oncologist as an outpatient. Starting home Lynn regimen, Lynn 10 mg every 6 hours scheduled, Dilaudid 0.5 mg IV every 6 hours for pain scale 1-5, Dilaudid 1 mg IV push every 6 hours as needed pain scale 6-10 Benadryl IV as needed for itching Patient tolerated this pain regimen well, and felt comfortable with discharge on by mouth [place] 10 mg every 6 hours. (2) Leg pain, right ICD Codes: M79.604 - Pain in right leg Plan: Patient complaining of unilateral leg pain, involving the right leg particularly the thigh area Describes pain as cramp-like and worse with walking/standing. Pain not consistent with prior pain crisis Ordered venous ultrasound to rule out DVT on 09/30 - study was negative for DVT Electrolytes within normal limits Likely secondary to pain crisis, no change overnight (3) Hypokalemia ICD Codes: E87.6 - Hypokalemia Status: Acute Plan: Potassium Chloride 40meq capsules daily -Continue to monitor, within normal limits from 09/27-10/01 (4) UTI (urinary tract infection) ICD Codes: N39.0 - Urinary tract infection, site not specified Status: Acute Plan: UA: small leuk est, mod bacteria UCx: 50-100,000 bacteria In light of comorbid conditions, continue Rx for UTI (09/26-09/28) Completed 3 days treatment of Rocephin IV every 24 No complaints of dysuria at this time (5) Non-ischemic cardiomyopathy ICD Codes: I42.8 - Other cardiomyopathies Status: Acute Plan: Asymptomatic hx of CHF with EF 40% Continue home medications of carvedilol 3.125 mg 2 times a day, lisinopril 2.5 mg daily 2D Echo during this hospitalization showing mildly dilated left ventricle, ejection fraction 40% Use caution with IV fluids, giving 110 mL per hour currently BNP within normal limits at 17 CXR: cardiomegaly, no acute findings Patient states that she is 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, coordinated by her PCP (6) Asthma ICD Codes: J45.909 - Unspecified asthma, uncomplicated Status: Chronic Plan: Patient has history of asthma Currently well controlled Pro Air inhaler as needed Albuterol nebulizers as needed (7) fen/ppx Status: Acute Plan: Fluids: NS 110mls/hr, Electrolytes: Was hypokalemic on admission, currently within normal limits but following daily BMPs Nutrition: Regular diet GI ppx: N/A DVT ppx: lovenox 40 SQ d (Edmar Lopez MD R1) Problem Qualifiers (1) UTI (urinary tract infection): Qualified Codes: N30.00 - Acute cystitis without hematuria Edmar Lopez MD R1 Oct 01, 2017 13:50 Debbie Murray MD Oct 01, 2017 14:59
== END 2017-10-01 12:50 | disposition home or self-care (01) | DRG 812 ==
LOC: NEPE 11:51 → NEDA 16:17 → OBSVTOIN 17:36 → N04B 18:55
PROVIDERS: ADMIT Family Medicine; ATTEND Family Medicine
PROC: 30243N1 Transfusion of Nonautologous Red Blood Cells into Central Vein, Percutaneous Approach (ICD-10-PCS; principal; 2017-09-27)
DX: D57.00 Hb-SS disease with crisis, unspecified (principal); I42.8 Other cardiomyopathies; I50.9 Heart failure, unspecified; N30.00 Acute cystitis without hematuria; E83.111 Hemochromatosis due to repeated red blood cell transfusions; J06.9 Acute upper respiratory infection, unspecified; E87.6 Hypokalemia; J45.909 Unspecified asthma, uncomplicated; F41.9 Anxiety disorder, unspecified; Z88.5 Allergy status to narcotic agent; Z86.14 Personal history of Methicillin resistant Staphylococcus aureus infection
CPT/HCPCS: 36430; 71045; 71046; 80048; 80076; 81001; 82728; 83615; 83880; 85007; 85014; 85018; 85025; 85027; 85044; 86140; 86850; 86900; 86901; 86902; 86920; 86922; 87081; 87086; 87641; 93306; 93971; 94150; 99285; J0696; J1170; J1200; J1642; J1650; J1885; J7030; P9016

== ENCOUNTER 2017-10-08 02:21 | Emergency (ER) | payer MEDICAID ==
[2017-10-08 02:23] VITALS: BP 123/69; PULSE 105; RESP 18; TEMP 99; O2SAT 99
[2017-10-08] MEDS ORDERED: SODIUM CHLOR 0.9% 1000 ML INJ 1,000 ML IV ONE ×2 (04:43→06:30)
[2017-10-08] MEDS ORDERED: SODIUM CHLORIDE 0.9% FLUSH 10 ML FLUSH IVF PRN (04:45)
[2017-10-08] MEDS ORDERED: HYDROmorphone HCL PF 2 MG/ML VIAL IV PUSH ONE ×2 (04:45→06:30)
[2017-10-08] MEDS ORDERED: ONDANSETRON HCL 4 MG/2 ML VIAL IVP ONE (04:45)
[2017-10-08] MEDS ORDERED: diphenhydrAMINE HCL 50 MG/ML VIAL IV PUSH ONE ×2 (04:45→06:30)
[2017-10-08 05:06] LABS: AUTOMATED NEUTROPHIL # 10.4 TH/MM3 (1.8-7.7); BASOPHIL # 0.3 TH/MM3 (0-0.2); BASOPHIL % 1.6 % (0.0-2.0); EOSINOPHIL # 0.6 TH/MM3 (0-0.4); EOSINOPHIL % 3.6 % (0.0-4.0); HEMATOCRIT 22.8 % (35.0-46.0); HEMOGLOBIN 7.9 GM/DL (11.6-15.3); LYMPH % 22.3 % (9.0-44.0); LYMPHOCYTE # 3.6 TH/MM3 (1.0-4.8); MEAN CELL VOLUME 82.6 FL (80.0-100.0); MEAN CORPUSCULAR HEMOGLOBIN 28.8 PG (27.0-34.0); MEAN CORPUSCULAR HGB CONC 34.9 % (32.0-36.0); MEAN PLATELET VOLUME 8.6 FL (7.0-11.0); MONO % 8.8 % (0.0-8.0); MONOCYTE # 1.4 TH/MM3 (0-0.9); NEUT % 63.7 % (16.0-70.0); PLATELET COUNT 502 TH/MM3 (150-450); RED BLOOD COUNT 2.75 MIL/MM3 (4.00-5.30); RED CELL DISTRIBUTION WIDTH 18.1 % (11.6-17.2); RETIC # 50.5 MIL/L (20.0-150.0); RETIC % 1.8 % (0.4-3.0); WHITE BLOOD COUNT 16.3 TH/MM3 (4.0-11.0)
--- NOTE | 2017-10-08 05:12 | PD ---
HPI Chief Complaint: Sickle Cell Time Seen by Provider: 04:42 Travel History International Travel<30 days: No Contact w/Intl Traveler<30days: No Traveled to known affect area: No History of Present Illness HPI 27-year-old female presents to the emergency department for complaint of sickle cell pain. Patient has sickle cell disease and states that typically she has an exacerbation associated with onset of her menses. Patient has had menses 2 days. Patient complains of typical areas of pain affecting the spine and bilateral extremities. No fever no chills no nausea no vomiting no chest pain no shortness of breath no abdominal pain no flank pain or dysuria frequency urgency hematuria or abnormal vaginal discharge. Patient is currently menstruating. Patient denies . Patient requests Benadryl because she state helps with her pain medication. Patient has been using her prescription narcotic without symptom relief prescribed by her grizzly worker from [facility]. Patient rates her sickle-cell pain 2/10 in intensity to 10/10 in intensity. PFSH Past Medical History Narrative Medical CHF chest pain sickle cell anemia cholecystectomy; no tobacco use; nursing notes. Anemia: Yes Arthritis: No Asthma: Yes Autoimmune Disease: No Blood Disorders: Yes Anxiety: Yes Depression: No Heart Rhythm Problems: No Cancer: No High Cholesterol: No Chemotherapy: No Chest Pain: Yes Congestive Heart Failure: Yes COPD: No Cerebrovascular Accident: No Cystic Fibrosis: No Diabetes: No Diminished Hearing: No Endocrine: No Gastrointestinal Disorders: No GERD: No Glaucoma: No Genitourinary: No Headaches: Yes Hepatitis: No Hiatal Hernia: No Heparin Induced Thrombocytopen: No Hypertension: No Immune Disorder: No Implanted Vascular Access Dvce: Yes Kidney Stones: No Musculoskeletal: No Neurologic: Yes Psychiatric: Yes Reproductive: No Respiratory: Yes (asthma) Immunizations Current: Yes Migraines: Yes Myocardial Infarction: No Pneumonia: Yes Radiation Therapy: No Renal Failure: No Seizures: No Sickle Cell Disease: Yes Sleep Apnea: No Thyroid Disease: No Ulcer: No PNEUMOCCOCAL Vaccine (Year): 1 ?: Not LMP: 10/07/17 : 1 Para: 1 Miscarriage: 0 : 0 Tubal Ligation: Yes Past Surgical History Abdominal Surgery: Yes (gall stones removed) AICD: No Appendectomy: No Arteriovenous Shunt: No Body Medical Devices: R Chest Infusaport (3RD) Cardiac Surgery: No Section: Yes (X 1) Cholecystectomy: Yes Ear Surgery: No Endocrine Surgery: No Eye Surgery: No Genitourinary Surgery: No Gynecologic Surgery: Yes (c section) Hysterectomy: No Insulin Pump: No Joint Replacement: No Neurologic Surgery: No Oral Surgery: No Pacemaker: No Thoracic Surgery: No Other Surgery: Yes (PORTX3 PLACED AND REMOVED, gallstones) Social History Alcohol Use: No Tobacco Use: No Substance Use: No Allergies-Medications (Allergen,Severity, Reaction): Coded Allergies: acetaminophen (Verified Allergy, Severe, 10/08/17) oxycodone (Unverified Adverse Reaction, Severe, Nausea/Vomiting, 10/08/17) AND ITCHING Reported Meds & Prescriptions Reported Meds & Active Scripts Active Hydrocodone-Acetamin 10-325 mg (Hydrocodone/Acetaminophen) 10 Mg-325 Mg Tablet 1 Tab PO Q6HR PRN Coreg (Carvedilol) 3.125 Mg Tab 3.125 Mg PO Q12HR 30 Days Lisinopril 5 Mg Tab 2.5 Mg PO DAILY Hydrea (Hydroxyurea) 500 Mg Cap 500 Mg PO DAILY Reported Folic Acid 400 Mcg Tab 400 Mcg PO DAILY Proventil Hfa 6.7 GM Inh (Albuterol Sulfate) 90 Mcg/Act Aer 2 Puff INH Q6H PRN Review of Systems Except as stated in HPI: all other systems reviewed are Neg General / Constitutional: No: Fever, Chills HENT: No: Headaches, Sore Throat, Congestion, Neck Pain, Earache Cardiovascular: No: Chest Pain or Discomfort Respiratory: No: Cough, Shortness of Breath Gastrointestinal: No: Nausea, Vomiting, Diarrhea, Abdominal Pain Genitourinary: Positive: Vaginal Bleeding, No: Dysuria, Pelvic Pain Musculoskeletal: Positive: Pain (Bilateral arms and legs), No: Myalgias, Arthralgias Skin: No Rash, No Lumps Neurologic: No: Weakness Psychiatric: No: Anxiety Hematologic/Lymphatic: No: Lymph Node Enlargement Physical Exam Narrative GENERAL: Well-developed well-nourished female in no acute distress no respiratory distress intermittently tearful and crying SKIN: Warm and dry. HEAD: Normocephalic. EYES: No scleral icterus. No injection or drainage. NECK: Supple, trachea midline. No JVD or lymphadenopathy. CARDIOVASCULAR: Regular rate and rhythm without murmurs, gallops, or rubs. RESPIRATORY: Breath sounds equal bilaterally. No accessory muscle use. GASTROINTESTINAL: Abdomen soft, non-tender, nondistended. MUSCULOSKELETAL: No cyanosis, or edema. BACK: Nontender without obvious deformity. No CVA tenderness. Data Data Last Documented VS Vital Signs Date Time Temp Pulse Resp B/P (MAP) Pulse Ox O2 Delivery O2 Flow Rate FiO2 10/08/17 05:50 87 16 119/77 (91) 98 Room Air 10/08/17 02:23 99.0 Orders Orders Basic Metabolic Panel (Bmp) (10/08/17 04:43) Complete Blood Count With Diff (10/08/17 04:43) Retic Count (10/08/17 04:43) Urinalysis - C+S If Indicated (10/08/17 04:43) Chest, Single Ap (10/08/17 04:43) Ecg Monitoring (10/08/17 04:43) Iv Access Insert/Monitor (10/08/17 04:43) Oximetry (10/08/17 04:43) Ondansetron Inj (Zofran Inj) (10/08/17 04:45) Sodium Chloride 0.9% Flush (Ns Flush) (10/08/17 04:45) Sodium Chlor 0.9% 1000 Ml Inj (Ns 1000 M (10/08/17 04:43) Diphenhydramine Inj (Benadryl Inj) (10/08/17 04:45) Ed Urine Pregnancytest Poc (10/08/17 04:43) Hydromorphone Pf Inj (Dilaudid Pf Inj) (10/08/17 04:45) Ketorolac Inj (Toradol Inj) (10/08/17 05:45) Sodium Chlor 0.9% 1000 Ml Inj (Ns 1000 M (10/08/17 06:30) Hydromorphone Pf Inj (Dilaudid Pf Inj) (10/08/17 06:30) Diphenhydramine Inj (Benadryl Inj) (10/08/17 06:30) Labs Laboratory Tests Test 10/08/17 04:57 10/08/17 05:47 White Blood Count 16.3 TH/MM3 Red Blood Count 2.75 MIL/MM3 Hemoglobin 7.9 GM/DL Hematocrit 22.8 % Mean Corpuscular Volume 82.6 FL Mean Corpuscular Hemoglobin 28.8 PG Mean Corpuscular Hemoglobin Concent 34.9 % Red Cell Distribution Width 18.1 % Platelet Count 502 TH/MM3 Mean Platelet Volume 8.6 FL Neutrophils (%) (Auto) 63.7 % Lymphocytes (%) (Auto) 22.3 % Monocytes (%) (Auto) 8.8 % Eosinophils (%) (Auto) 3.6 % Basophils (%) (Auto) 1.6 % Neutrophils # (Auto) 10.4 TH/MM3 Lymphocytes # (Auto) 3.6 TH/MM3 Monocytes # (Auto) 1.4 TH/MM3 Eosinophils # (Auto) 0.6 TH/MM3 Basophils # (Auto) 0.3 TH/MM3 CBC Comment DIFF FINAL Differential Comment Reticulocyte Count 1.8 % Absolute Reticulocyte Count 50.5 MIL/L Blood Urea Nitrogen 9 MG/DL Creatinine 0.66 MG/DL Random Glucose 92 MG/DL Calcium Level 8.8 MG/DL Sodium Level 140 MEQ/L Potassium Level 3.1 MEQ/L Chloride Level 109 MEQ/L Carbon Dioxide Level 23.7 MEQ/L Anion Gap 7 MEQ/L Estimat Glomerular Filtration Rate 129 ML/MIN Urine Color LIGHT-YELLOW Urine Turbidity HAZY Urine pH 6.0 Urine Specific [place] 1.008 Urine Protein NEG mg/dL Urine Glucose (UA) NEG mg/dL Urine Ketones NEG mg/dL Urine Occult Blood NEG Urine Nitrite NEG Urine Bilirubin NEG Urine Urobilinogen LESS THAN 2.0 MG/DL Urine Leukocyte Esterase NEG Urine RBC LESS THAN 1 /hpf Urine WBC 3 /hpf Urine Squamous Epithelial Cells 7 /hpf Urine Bacteria OCC /hpf Urine Mucus FEW /lpf Microscopic Urinalysis Comment CULT NOT INDICATED MDM Medical Decision Making Medical Screen Exam Complete: Yes Emergency Medical Condition: Yes Medical Record Reviewed: Yes Interpretation(s) UA: wnl Last Impressions Chest X-Ray 10/08/17 0443 Signed Impressions: Service Date/Time: October 05:04 - CONCLUSION: No acute cardiopulmonary abnormality is identified. Ernst Arias MD CBC & BMP Diagram 10/08/17 04:57 Calcium Level 8.8 Vital Signs Date Time Temp Pulse Resp B/P (MAP) Pulse Ox O2 Delivery O2 Flow Rate FiO2 10/08/17 05:50 87 16 119/77 (91) 98 Room Air 10/08/17 05:38 97 Room Air 10/08/17 02:23 99.0 105 18 123/69 (87) 99 poc hcg: negative Differential Diagnosis Sickle cell disease, vaso-occlusive crisis, UTI, Narrative Course Port-A-Cath access IV fluids administered along with Benadryl 25 mg IV Dilaudid 1 mg IV and Zofran 4 mg IV specimens collected and sent for result Patient reports feels some better but continues to have pain and is aware of lab results and hemoglobin is at her baseline Patient given additional dose of normal saline and a total 25 mg IV and Dilaudid 1 mg IV as well as Toradol; patient is followed by Dr. Gamino her grizzly worker and plans to follow-up with him on Thursday. Patient is otherwise stable for outpatient management at this time Diagnosis Primary Impression: Sickle cell anemia with pain Referrals: Primary Care Physician [address] Gamino your grizzly worker Patient Instructions: General Instructions, Narcotic given in the ED Additional Instructions: Increase fluid hydration Continue chronic medications as currently prescribed Follow-up with your grizzly worker Dr. Gamino office in a.m. schedule follow-up appointment Return to the emergency department for any concerns or change in condition; fever pain vomiting Monitor temperature with thermometer and take ibuprofen/Advil/Motrin as needed for fever 100.4F or greater Med/Other Pt SpecificInfo: No Change to Meds Disposition: 01 DISCHARGE HOME Condition: Stable Alma Shepherd MD Oct 08, 2017 05:12
--- NOTE | 2017-10-08 05:23 | RADRPT ---
EXAM DATE/TIME: 10/08/2017 05:04 [facility] COMPARISON: CHEST SINGLE AP, September 26, 2017, 13:57. INDICATIONS : Shortness of breath. MEDICAL HISTORY : Sickle Cell disease. Gastroesophageal reflux disease. Hypertension. SURGICAL HISTORY : Cholecystectomy. Tubal ligation. section. [id number] ENCOUNTER: Initial ACUITY: 1 day PAIN SCORE: 0/10 LOCATION: Bilateral chest FINDINGS: Portable AP view of the chest demonstrates a normal-sized cardiac silhouette. Right chest wall Infuse -a-Port remains present. Lungs are underinflated with mild atelectasis at the bases. No effusion or p neumothorax is identified. The bones and soft tissues demonstrate no acute finding. Cholecystectomy c lips are present. CONCLUSION: No acute cardiopulmonary abnormality is identified. Ernst Arias MD on October 08, 2017 at 5:21 Board Certified Radiologist. This report was verified electronically.
[2017-10-08 05:25] LABS: BICARBONATE 23.7 MEQ/L (21.0-32.0); CALCIUM 8.8 MG/DL (8.5-10.1); CREATININE 0.66 MG/DL (0.50-1.00)
[2017-10-08 05:38] VITALS: O2SAT 97
[2017-10-08] MEDS ORDERED: KETOROLAC TROMETHAMINE 30 MG/ML (IVP) VIAL IV PUSH ONE (05:45)
[2017-10-08 05:50] VITALS: BP 119/77; PULSE 87; RESP 16; O2SAT 98
[2017-10-08 06:04] LABS: BACTERIA, URINE OCC /hpf; BILIRUBIN, URINE NEG (NEG); BLOOD, URINE NEG (NEG); GLUCOSE,URINE NEG (NEG); KETONE, URINE NEG (NEG); MUCUS URINE FEW /lpf (OCC); NITRITE,URINE NEG (NEG); SQUAMOUS EPITHELIAL CELL URINE 7 /hpf (0-5); URINE COLOR LIGHT-YELLOW (YELLW/STRAW); URINE LEUKOCYTE ESTERASE NEG (NEG)
== END 2017-10-08 07:58 | disposition home or self-care (01) ==
LOC: NEPC 02:21
DX: D57.00 Hb-SS disease with crisis, unspecified (principal)
CPT/HCPCS: 71045; 80048; 81001; 84703; 85025; 85044; 96374; 96375; 96376; 99284; J1170; J1200; J1642; J1885; J2405; J7030

== ENCOUNTER 2017-10-11 21:24 | Inpatient (IN) | payer MEDICAID ==
[~2017-10-11] VITALS: Ht 165.1 cm; Wt 70.9 kg
[~2017-10-11 21:24] MED LIST changes: +FOLI1TAB6 PO; +HYDR-3535 PO; +MACR100C2 PO
[2017-10-11 21:26] VITALS: BP 133/89; PULSE 118; RESP 16; TEMP 99.4; O2SAT 100
[2017-10-11] MEDS ORDERED: AMBI5TAB PO (21:55)
--- NOTE | 2017-10-11 22:00 | PD ---
HPI Chief Complaint: Sickle Cell Time Seen by Provider: 21:51 Travel History International Travel<30 days: No Contact w/Intl Traveler<30days: No Traveled to known affect area: No History of Present Illness HPI 27-year-old female with history of sickle cell disease came to the emergency room for sickle cell crisis flareup as per her. Patient says that she had seen her building associate Dr. Gamino 2 days ago for the pain. He has ordered some new medication for her that is warm to be delivered and hence she hasn't started it yet. Meanwhile he told her if her symptoms worsen she should go to the emergency room. She also says that 4 weeks ago she had received blood transfusion. She is not sure what it was in [facility]. Patient requested Dilaudid and IV Benadryl and something for nausea and she usually gets itching and nauseous with Dilaudid. Vital signs showed some tachycardia. Patient does not appear to be in significant distress. Patient has been in this emergency room multiple times in the past for sickle cell crisis. [facility] Past Medical History Narrative Medical List of her past medical, surgical, social and family history is reviewed from the nursing note. Anemia: Yes Arthritis: No Asthma: Yes Autoimmune Disease: No Blood Disorders: Yes Anxiety: Yes Depression: No Heart Rhythm Problems: No Cancer: No High Cholesterol: No Chemotherapy: No Chest Pain: Yes Congestive Heart Failure: Yes COPD: No Cerebrovascular Accident: No Cystic Fibrosis: No Diabetes: No Diminished Hearing: No Endocrine: No Gastrointestinal Disorders: No GERD: No Glaucoma: No Genitourinary: No Headaches: Yes Hepatitis: No Hiatal Hernia: No Heparin Induced Thrombocytopen: No Hypertension: No Immune Disorder: No Implanted Vascular Access Dvce: Yes Kidney Stones: No Musculoskeletal: No Neurologic: Yes Psychiatric: Yes Reproductive: No Respiratory: Yes Immunizations Current: Yes Migraines: Yes Myocardial Infarction: No Pneumonia: Yes Radiation Therapy: No Renal Failure: No Seizures: No Sickle Cell Disease: Yes Sleep Apnea: No Thyroid Disease: No Ulcer: No Tetanus Vaccination: > 5 Years Influenza Vaccination: No PNEUMOCCOCAL Vaccine (Year): 1 ?: Not : 1 Para: 1 Miscarriage: 0 : 0 Tubal Ligation: Yes Past Surgical History Abdominal Surgery: Yes (gall stones removed) AICD: No Appendectomy: No Arteriovenous Shunt: No Body Medical Devices: R Chest Infusaport (3RD) Cardiac Surgery: No Section: Yes (X 1) Cholecystectomy: Yes Ear Surgery: No Endocrine Surgery: No Eye Surgery: No Genitourinary Surgery: No Gynecologic Surgery: Yes (c section) Hysterectomy: No Insulin Pump: No Joint Replacement: No Neurologic Surgery: No Oral Surgery: No Pacemaker: No Thoracic Surgery: No Other Surgery: Yes (PORTX3 PLACED AND REMOVED, gallstones) Social History Alcohol Use: Yes (occ) Tobacco Use: No Substance Use: No Allergies-Medications (Allergen,Severity, Reaction): Coded Allergies: acetaminophen (Verified Allergy, Severe, 10/08/17) oxycodone (Unverified Adverse Reaction, Severe, Nausea/Vomiting, 10/08/17) AND ITCHING Comments List of her allergies reviewed from the nursing note. Reported Meds & Prescriptions Reported Meds & Active Scripts Active Hydrocodone-Acetamin 10-325 mg (Hydrocodone/Acetaminophen) 10 Mg-325 Mg Tablet 1 Tab PO Q6HR PRN Lisinopril 5 Mg Tab 2.5 Mg PO DAILY Hydrea (Hydroxyurea) 500 Mg Cap 500 Mg PO DAILY Reported Ambien (Zolpidem Tartrate) 5 Mg Tab 5 Mg PO HS PRN Folic Acid 400 Mcg Tab 400 Mcg PO DAILY Proventil Hfa 6.7 GM Inh (Albuterol Sulfate) 90 Mcg/Act Aer 2 Puff INH Q6H PRN Narrative Medication List of her home medications reviewed from the nursing note. Review of Systems Except as stated in HPI: all other systems reviewed are Neg Musculoskeletal: Positive: Pain Physical Exam Narrative GENERAL: Awake, alert, mild distress SKIN: Focused skin assessment warm/dry. HEAD: Atraumatic. Normocephalic. EYES: Pupils equal and round. No scleral icterus. No injection or drainage. ENT: No nasal bleeding or discharge. Mucous membranes pink and moist. NECK: Trachea midline. No JVD. CARDIOVASCULAR: Regular rate and rhythm. No murmur appreciated. RESPIRATORY: No accessory muscle use. Clear to auscultation. Breath sounds equal bilaterally. GASTROINTESTINAL: Abdomen soft, non-tender, nondistended. Hepatic and splenic margins not palpable. MUSCULOSKELETAL: No obvious deformities. No clubbing. No cyanosis. No edema. NEUROLOGICAL: Awake and alert. No obvious cranial nerve deficits. Motor grossly within normal limits. Normal speech. PSYCHIATRIC: Appropriate mood and affect; insight and judgment normal. Data Data Last Documented VS Vital Signs Date Time Temp Pulse Resp B/P (MAP) Pulse Ox O2 Delivery O2 Flow Rate FiO2 10/11/17 21:26 99.4 118 16 133/89 (104) 100 Room Air Orders Orders Complete Blood Count With Diff (10/11/17 22:11) Retic Count (10/11/17 22:11) Morphine Inj (Morphine Inj) (10/11/17 22:15) Sodium Chlor 0.9% 1000 Ml Inj (Ns 1000 M (10/11/17 22:15) Diphenhydramine (Benadryl) (10/11/17 22:15) Ondansetron Odt (Zofran Odt) (10/11/17 22:15) Morphine Inj (Morphine Inj) (10/11/17 23:30) Type And Screen (10/11/17 23:20) Red Blood Cells (Rbc) (10/11/17 23:20) Blood Product Administration (10/11/17 23:20) Sodium Chlor 0.9% 250 Ml Inj (Ns 250 Ml (10/11/17 23:30) Admit Order (Ed Use Only) (10/11/17 23:47) Labs Laboratory Tests Test 10/11/17 22:30 White Blood Count 14.3 TH/MM3 Red Blood Count 2.52 MIL/MM3 Hemoglobin 7.2 GM/DL Hematocrit 20.9 % Mean Corpuscular Volume 82.9 FL Mean Corpuscular Hemoglobin 28.7 PG Mean Corpuscular Hemoglobin Concent 34.6 % Red Cell Distribution Width 17.4 % Platelet Count 506 TH/MM3 Mean Platelet Volume 8.0 FL Neutrophils (%) (Auto) 67.3 % Lymphocytes (%) (Auto) 16.1 % Monocytes (%) (Auto) 10.7 % Eosinophils (%) (Auto) 3.2 % Basophils (%) (Auto) 2.7 % Neutrophils # (Auto) 9.6 TH/MM3 Lymphocytes # (Auto) 2.3 TH/MM3 Monocytes # (Auto) 1.5 TH/MM3 Eosinophils # (Auto) 0.5 TH/MM3 Basophils # (Auto) 0.4 TH/MM3 CBC Comment DIFF FINAL Differential Comment Reticulocyte Count 6.4 % Absolute Reticulocyte Count 159.8 MIL/L MDM Medical Decision Making Medical Screen Exam Complete: Yes Emergency Medical Condition: Yes Medical Record Reviewed: Yes Differential Diagnosis Sickle cell crisis, acute on chronic pain Narrative Course 11:23 PM patient's hemoglobin and hematocrit is lower than her usual. Reticulocyte count has gone up. Patient will require blood transfusion at this point. I have ordered 2 units of blood transfusion. Patient will require admission for at least observation. Critical Care Narrative Aggregate critical care time was 30 minutes. Time to perform other separately billable procedures was not included in the critical care time. My time did not include minutes spent treating any other patients simultaneously or on activities that did not directly contribute to the patient's treatment. The services I provided to this patient were to treat and/or prevent clinically significant deterioration that could result in: Symptomatic anemia, blood transfusion I provided critical care services requiring my management, as noted below: Chart data review, documentation time, medication orders and management, vital sign assessments/reviewing monitor data, ordering and reviewing lab tests, ordering and interpreting/reviewing x-rays and diagnostic studies, care of the patient and discussion of the patient with the admitting physicians. Procedures EKG Prior to Arrival: No Diagnosis Primary Impression: Sickle cell disease with crisis Additional Impression: Sickle cell anemia Qualified Codes: D57.00 - Hb-SS disease with crisis, unspecified Admitting Information Admitting Physician Requests: Observation Sam Bains MD Oct 11, 2017 22:00
[2017-10-11] MEDS ORDERED: SODIUM CHLOR 0.9% 1000 ML INJ 1,000 ML IV ONE (22:15)
[2017-10-11] MEDS ORDERED: diphenhydrAMINE HCL 50 MG CAP PO ONE (22:15)
[2017-10-11] MEDS ORDERED: ONDANSETRON ODT 4 MG TAB PO ONE (22:15)
[2017-10-11] MEDS ORDERED: MORPHINE SULFATE 4 MG/ML INJ IV PUSH ONE (22:15)
[2017-10-11 23:01] LABS: AUTOMATED NEUTROPHIL # 9.6 TH/MM3 (1.8-7.7); BASOPHIL # 0.4 TH/MM3 (0-0.2); BASOPHIL % 2.7 % (0.0-2.0); EOSINOPHIL # 0.5 TH/MM3 (0-0.4); EOSINOPHIL % 3.2 % (0.0-4.0); HEMOGLOBIN 7.2 GM/DL (11.6-15.3); LYMPH % 16.1 % (9.0-44.0); LYMPHOCYTE # 2.3 TH/MM3 (1.0-4.8); MEAN CELL VOLUME 82.9 FL (80.0-100.0); MEAN CORPUSCULAR HEMOGLOBIN 28.7 PG (27.0-34.0); MEAN CORPUSCULAR HGB CONC 34.6 % (32.0-36.0); MONO % 10.7 % (0.0-8.0); MONOCYTE # 1.5 TH/MM3 (0-0.9); NEUT % 67.3 % (16.0-70.0); PLATELET COUNT 506 TH/MM3 (150-450); RED BLOOD COUNT 2.52 MIL/MM3 (4.00-5.30); RED CELL DISTRIBUTION WIDTH 17.4 % (11.6-17.2); RETIC # 159.8 MIL/L (20.0-150.0); RETIC % 6.4 % (0.4-3.0); WHITE BLOOD COUNT 14.3 TH/MM3 (4.0-11.0)
[2017-10-11 23:13] LABS: HEMATOCRIT 20.9 % (35.0-46.0)
[2017-10-11] MEDS ORDERED: SODIUM CHLOR 0.9% 250 ML INJ 250 ML IV ONE (23:30)
[2017-10-11] MEDS ORDERED: MORPHINE SULFATE 8 MG/ML INJ IV PUSH ONE (23:30)
[2017-10-11] MEDS: SODIUM CHLOR 0.9% 1000 ML INJ 1,000 ML IV SCH (23:51)
--- NOTE | 2017-10-11 23:55 | HHI.HP ---
[facility] Unknown Admission Diagnosis sickle cell disease, some dramatic any Diagnoses: (1) Sickle cell crisis Diagnosis: Principal (2) Anemia Diagnosis: Principal (3) Hypokalemia Diagnosis: Principal Travel History International Travel<30 Days: No Contact w/Intl Traveler <30 Da: No Traveled to Known Affected Are: No History of Present Illness This is a 27-year-old female with a PMH of Sickle Cell Disease and Anxiety who presented the ear with complaints of generalized pain typical for sickle cell crises. Recent ER presentation on 10/08/17 for similar complaints, s/p analgesics and IVF in ER and d/c'd home. Seen by her Automobile Tester, Dr. Gamino, on and was instructed to return to the ER if symptoms recurred. Today , pt w/ worsening pain typical of flare. Denies fever, chills, cough, chest pain, nausea, vomiting or diarrhea. On arrival, BP 133/89, HR 118, O2 sat 100% on RA, Temp 99.4. WBC 14.3. Hemoglobin 7.2. Reticulocyte Count elevated 6.4. S/p Morphine x2 in ER w/ minimal improvement. Review of Systems Except as stated in HPI: all other systems reviewed are Neg ROS: 14 point review of systems otherwise negative. Past Family Social History Past Medical History PMH: Sickle Cell Disease and Anxiety Past Surgical History PAST SURGICAL HISTORY: Cholecystectomy, , Port Placement and Removal Allergies: Coded Allergies: acetaminophen (Verified Allergy, Severe, 10/08/17) oxycodone (Unverified Adverse Reaction, Severe, Nausea/Vomiting, 10/08/17) AND ITCHING Family History PAST FAMILY HISTORY: Reviewed. No h/o DM or CAD Social History PAST SOCIAL HISTORY: Occasional alcohol. Negative for tobacco or drugs. Physical Exam Vital Signs Vital Signs Date Time Temp Pulse Resp B/P (MAP) Pulse Ox O2 Delivery O2 Flow Rate FiO2 10/11/17 21:26 99.4 118 16 133/89 (104) 100 Room Air Physical Exam PE: GENERAL: Pleasant young black female in moderate distress due to pain complaints. HEENT: PERRLA, EOMI. No scleral icterus or conjunctival pallor. No lid lag or facial droop. CARDIOVASCULAR: Regular rate and rhythm. No obvious murmurs to auscultation. No chest tenderness to palpation. RESPIRATORY: No obvious rhonchi or wheezing. Clear to auscultation. Breath sounds equal bilaterally. GASTROINTESTINAL: Abdomen soft, non-tender, nondistended. BS normal. MUSCULOSKELETAL: Extremities without clubbing, cyanosis, or edema. No obvious deformities. NEUROLOGICAL: Awake, alert and oriented x4. No focal neurologic deficits. Moving both upper and lower extremities spontaneously. Laboratory Laboratory Tests Test 10/11/17 22:30 White Blood Count 14.3 Red Blood Count 2.52 Hemoglobin 7.2 Hematocrit 20.9 Mean Corpuscular Volume 82.9 Mean Corpuscular Hemoglobin 28.7 Mean Corpuscular Hemoglobin Concent 34.6 Red Cell Distribution Width 17.4 Platelet Count 506 Mean Platelet Volume 8.0 Neutrophils (%) (Auto) 67.3 Lymphocytes (%) (Auto) 16.1 Monocytes (%) (Auto) 10.7 Eosinophils (%) (Auto) 3.2 Basophils (%) (Auto) 2.7 Neutrophils # (Auto) 9.6 Lymphocytes # (Auto) 2.3 Monocytes # (Auto) 1.5 Eosinophils # (Auto) 0.5 Basophils # (Auto) 0.4 CBC Comment DIFF FINAL Differential Comment Reticulocyte Count 6.4 Absolute Reticulocyte Count 159.8 Result Diagram: 10/11/172229 Caprini VTE Risk Assessment Caprini VTE Risk Assessment: No/Low Risk (score <= 1) Caprini Risk Assessment Model Point Value = 1 Point Value = 2 Point Value = 3 Point Value = 5 Age 41-60 Minor surgery BMI > 25 kg/m2 Swollen legs Varicose veins or History of unexplained or recurrent spontaneous Oral contraceptives or hormone replacement Sepsis (< 1 month) Serious lung disease, including pneumonia (< 1 month) Abnormal pulmonary function Acute myocardial infarction Congestive heart failure (< 1 month) History of inflammatory bowel disease Medical patient at bed rest Age 61-74 Arthroscopic surgery Major open surgery (> 45 min) Laparoscopic surgery (> 45 min) Malignancy Confined to bed (> 72 hours) Immobilizing plaster cast Central venous access Age >= 75 History of VTE Family history of VTE Factor V Leiden Prothrombin [id number] Lupus anticoagulant Anticardiolipin antibodies Elevated serum homocysteine Heparin-induced thrombocytopenia Other congenital or acquired thrombophilia Stroke (< 1 month) Elective arthroplasty Hip, pelvis, or leg fracture Acute spinal cord injury (< 1 month) Prophylaxis Regimen Total Risk Factor Score Risk Level Prophylaxis Regimen 0-1 Low Early ambulation 2 Moderate Order ONE of the following: *Sequential Compression Device (SCD) *Heparin 5000 units SQ BID 3-4 Higher Order ONE of the following medications: *Heparin 5000 units SQ TID *Enoxaparin/Lovenox 40 mg SQ daily (WT < 150 kg, CrCl > 30 mL/min) *Enoxaparin/Lovenox 30 mg SQ daily (WT < 150 kg, CrCl > 10-29 mL/min) *Enoxaparin/Lovenox 30 mg SQ BID (WT < 150 kg, CrCl > 30 mL/min) AND/OR *Sequential Compression Device (SCD) 5 or more Highest Order ONE of the following medications: *Heparin 5000 units SQ TID (Preferred with Epidurals) *Enoxaparin/Lovenox 40 mg SQ daily (WT < 150 kg, CrCl > 30 mL/min) *Enoxaparin/Lovenox 30 mg SQ daily (WT < 150 kg, CrCl > 10-29 mL/min) *Enoxaparin/Lovenox 30 mg SQ BID (WT < 150 kg, CrCl > 30 mL/min) AND *Sequential Compression Device (SCD) Assessment and Plan Problem List: (1) Sickle cell crisis ICD Code: D57.00 - Hb-SS disease with crisis, unspecified Status: Acute (2) Anemia ICD Code: D64.9 - Anemia Status: Chronic (3) Hypokalemia ICD Code: E87.6 - Hypokalemia Status: Resolved Assessment and Plan A/P: 1. Sickle Cell Disease: w/ Acute Crisis. Severe. Retic Count elevated, c/o generalized pain typical of flare. CXR w/ no acute findings, images reviewed by me. IVF for hydration, Dilaudid IV, Benadryl prn. Resume home Hydroxyurea and Folic Acid. Follows w/ Dr. Gamino as outpatient, plan for follow up as scheduled. 2. Anemia: Anemia of Chronic Disease secondary to Sickle Cell. Hgb 7.2. Will hold off on transfusion to avoid iron-overload. Check Ferritin level. Repeat Hgb in am for trend. May need chelation. 3. Hypokalemia: Previous labs w/ hypokalemia, will check CMP, replace electrolytes as needed. 4. DVT Prophylaxis: SCD/Teds. 5. Social work for d/c planning as needed. 6. Case discussed w/ ER physician at length Physician Certification 2 Midnight Certification Type: Admission for Inpatient Services Order for Inpatient Services The services are ordered in accordance with Medicare regulations or non- Medicare payer requirements, as applicable. In the case of services not specified as inpatient-only, they are appropriately provided as inpatient services in accordance with the 2-midnight benchmark. Estimated LOS (days): 2 days is the estimated time the patient will need to remain in the hospital, assuming treatment plan goals are met and no additional complications. Post-Hospital Plan: Not yet determined Yuliet Martinez MD Oct 11, 2017 23:55
[2017-10-12] VITALS (12 sets, daily range): BP systolic 104–140; BP diastolic 70–97; PULSE 72–92; RESP 16–19; TEMP 96.2–98.8; O2SAT 96–99
[2017-10-12] MEDS ORDERED: LACTULOSE SYRUP 20 GM/30 ML CUP PO PRN
[2017-10-12] MEDS ORDERED: ALBUTEROL SULFATE 90 MCG/ACT HFA 8 GM INHALER INH PRN
[2017-10-12] MEDS ORDERED: BISACODYL 10 MG SUPP RECTAL PRN
[2017-10-12] MEDS ORDERED: ONDANSETRON HCL 4 MG/2 ML VIAL IVP PRN
[2017-10-12] MEDS ORDERED: MAGNESIUM HYDROXIDE SUSP 30 ML CUP PO PRN
[2017-10-12] MEDS ORDERED: HYDROmorphone HCL PF 2 MG/ML VIAL IV PUSH PRN (00:15)
[2017-10-12] MEDS: diphenhydrAMINE HCL 50 MG/ML VIAL IV PUSH PRN ×6 (01:51→22:43)
[2017-10-12] MEDS: HYDROmorphone HCL PF 2 MG/ML VIAL IV PUSH PRN ×11 (01:51→22:44)
[2017-10-12] MEDS: SODIUM CHLORIDE 0.9% FLUSH 10 ML FLUSH IV FLUSH PRN ×2 (03:57→06:00)
[2017-10-12] MEDS: SODIUM CHLOR 0.9% 1000 ML INJ 1,000 ML IV SCH ×3 (06:31→17:52)
[2017-10-12] MEDS: LISINOPRIL 5 MG TAB PO SCH (08:00)
[2017-10-12] MEDS: FOLIC ACID 1 MG TAB PO SCH (08:00)
[2017-10-12] MEDS: SENNOSIDES 8.6 MG TAB PO PRN (08:00)
[2017-10-12] MEDS: DOCUSATE SODIUM 50 MG/SENNA 8.6 MG TAB PO SCH ×2 (08:00→20:44)
[2017-10-12] MEDS: HYDROXYUREA 500 MG CAP PO SCH (08:02)
[2017-10-12] MEDS: SODIUM CHLORIDE 0.9% FLUSH 10 ML FLUSH IV FLUSH SCH ×2 (09:00→20:44)
--- NOTE | 2017-10-12 11:39 | HHI.PR ---
Subjective Remarks This is a 27-year-old female with a PMH of Sickle Cell Disease and Anxiety who presented the ear with complaints of generalized pain typical for sickle cell crises. Recent ER presentation on 10/08/17 for similar complaints, s/p analgesics and IVF in ER and d/c'd home. Seen by her Roads Superintendent, Dr. Gamino, on and was instructed to return to the ER if symptoms recurred. Today , pt w/ worsening pain typical of flare. Denies fever, chills, cough, chest pain, nausea, vomiting or diarrhea. On arrival, BP 133/89, HR 118, O2 sat 100% on RA, Temp 99.4. WBC 14.3. Hemoglobin 7.2. Reticulocyte Count elevated 6.4. S/p Morphine x2 in ER w/ minimal improvement. 10-12 PATIENT IS STILL COMPLAINING OF PAIN AND TAKING DILAUDID EVERY 2 HOURS STILL AM LABS DW RN AND PT Objective Vitals Vital Signs Date Time Temp Pulse Resp B/P (MAP) Pulse Ox O2 Delivery O2 Flow Rate FiO2 10/12/17 10:55 96.2 75 19 124/75 (91) 97 10/12/17 08:00 96.7 77 18 120/76 (91) 99 10/12/17 06:25 96.6 78 16 125/70 99 10/12/17 04:50 96.5 76 18 124/75 98 10/12/17 04:27 18 10/12/17 01:15 97.4 85 16 109/71 (84) 97 10/12/17 01:09 10/12/17 01:08 98.8 92 16 119/74 98 10/12/17 00:53 98.4 92 16 118/71 97 10/11/17 21:26 99.4 118 16 133/89 (104) 100 Room Air I/O 10/11/17 10/11/17 10/11/17 10/12/17 10/12/17 10/12/17 07:00 15:00 23:00 07:00 15:00 23:00 Intake Total 2370 ml 400 ml Balance 2370 ml 400 ml Intake Oral 960 ml IV Total 1000 ml Packed Cells 400 ml 400 ml Blood Product IV Normal Saline Flush 10 ml # Voids 4 # Bowel Movements 0 Result Diagram: 10/11/170 Other Results Laboratory Tests Test 10/11/17 22:30 10/11/17 23:50 White Blood Count 14.3 TH/MM3 Red Blood Count 2.52 MIL/MM3 Hemoglobin 7.2 GM/DL Hematocrit 20.9 % Mean Corpuscular Volume 82.9 FL Mean Corpuscular Hemoglobin 28.7 PG Mean Corpuscular Hemoglobin Concent 34.6 % Red Cell Distribution Width 17.4 % Platelet Count 506 TH/MM3 Mean Platelet Volume 8.0 FL Neutrophils (%) (Auto) 67.3 % Lymphocytes (%) (Auto) 16.1 % Monocytes (%) (Auto) 10.7 % Eosinophils (%) (Auto) 3.2 % Basophils (%) (Auto) 2.7 % Neutrophils # (Auto) 9.6 TH/MM3 Lymphocytes # (Auto) 2.3 TH/MM3 Monocytes # (Auto) 1.5 TH/MM3 Eosinophils # (Auto) 0.5 TH/MM3 Basophils # (Auto) 0.4 TH/MM3 CBC Comment DIFF FINAL Differential Comment Reticulocyte Count 6.4 % Absolute Reticulocyte Count 159.8 MIL/L Ferritin 3094 NG/ML Objective Remarks GENERAL: AWAKE ALERT OX3 IN MILD DISTRESS SKIN: Warm and dry. HEAD: Atraumatic. Normocephalic. EYES: Pupils equal and round. No scleral icterus. No injection or drainage. ENT: No nasal bleeding or discharge. Mucous membranes pink and moist. NECK: Trachea midline. No JVD. CARDIOVASCULAR: Regular rate and rhythm. S1, S2 NO S3 OR S4 NO HEAVE OR THRILL RESPIRATORY: No accessory muscle use. Clear to auscultation. Breath sounds equal bilaterally. GASTROINTESTINAL: Abdomen soft, non-tender, nondistended. Hepatic and splenic margins not palpable. MUSCULOSKELETAL: Extremities without clubbing, cyanosis, or edema. No obvious deformities. NEUROLOGICAL: Awake and alert. No obvious cranial nerve deficits. Motor grossly within normal limits. Five out of 5 muscle strength in the arms and legs. Normal speech. PSYCHIATRIC: Appropriate mood and affect; insight and judgment normal. Procedures NONE Medications and IVs Current Medications Morphine Sulfate (Morphine Inj) 4 mg ONCE ONCE IV PUSH Last administered on 07/18at 22:30; Start 10/11/17 at 22:15; Stop 10/11/17 at 22:16; Status DC Sodium Chloride 1,000 ml @ 999 mls/hr BOLUS ONCE IV Last administered on 10/11 22:30; Start 10/11/17 at 22:15; Stop 10/11/17 at 23:15; Status DC Diphenhydramine HCl (Benadryl) 50 mg ONCE ONCE PO Last administered on at 22:30; Start 10/11/17 at 22:15; Stop 10/11/17 at 22:16; Status DC Ondansetron HCl (Zofran Odt) 4 mg ONCE ONCE PO Last administered on at 22:30; Start 10/11/17 at 22:15; Stop 10/11/17 at 22:16; Status DC Morphine Sulfate (Morphine Inj) 6 mg ONCE ONCE IV PUSH Last administered on 07/18at 23:30; Start 10/11/17 at 23:30; Stop 10/11/17 at 23:31; Status DC Sodium Chloride 250 ml @ 15 mls/hr ONCE ONCE IV Last administered on at 01:09; Start 10/11/17 at 23:30; Stop 10/12/17 at 16:09 Diphenhydramine HCl (Benadryl Inj) 25 mg Q4H PRN IV PUSH ITCHING Last administered on 10/12/17 09:51; Start 10/12/17 at 00:00 Sodium Chloride 1,000 ml @ 150 mls/hr Q6H40M IV Last administered on at 10:10; Start 10/11/17 at 23:51 Sodium Chloride (NS Flush) 2 ml UNSCH PRN IV FLUSH FLUSH AFTER USING IV ACCESS Last administered on 10/12/17at 06:00; Start 10/12/17 at 00:00 Sodium Chloride (NS Flush) 2 ml BID IV FLUSH ; Start 10/12/17 at 09:00 Ondansetron HCl (Zofran Inj) 4 mg Q6H PRN IVP NAUSEA OR VOMITING; Start at 00:00 Hydromorphone HCl (Dilaudid Pf Inj) 1 mg Q2H PRN IV PUSH Pain 3-5 Last administered on 10/12/17at 09:51; Start 10/12/17 at 00:15 Hydromorphone HCl (Dilaudid Pf Inj) 2 mg Q2H PRN IV PUSH Pain 6-10; Start 10/12 at 00:15 Senna/Docusate Sodium (Malissa-Colace) 1 tab BID PO Last administered on at 08:00; Start 10/12/17 at 09:00 Magnesium Hydroxide (Milk Of Magnesia Liq) 30 ml Q12H PRN PO Mild constipation ; Start 10/12/17 at 00:00 Sennosides (Senokot) 17.2 mg Q12H PRN PO Moderate constipation Last administered on 10/12/17at 08:00; Start 10/12/17 at 00:00 Bisacodyl (Dulcolax Supp) 10 mg DAILY PRN RECTAL SEVERE CONSITIPATION; Start at 00:00 Lactulose (Lactulose Liq) 30 ml DAILY PRN PO SEVERE CONSITIPATION; Start at 00:00 Albuterol Sulfate (Proair Hfa Inh) 2 puff Q6H PRN INH SHORTNESS OF BREATH; Start 10/12/17 at 00:00 Folic Acid (Folate) 1 mg DAILY PO Last administered on 10/12/17at 08:00; Start 10/12/17 at 09:00 Hydroxyurea (Hydrea) 500 mg DAILY PO Last administered on 10/12/17at 08:02; Start 10/12/17 at 09:00 Lisinopril (Prinivil) 2.5 mg DAILY PO Last administered on 10/12/17at 08:00; Start 10/12/17 at 09:00 Zolpidem Tartrate (Ambien) 5 mg HS PRN PO INSOMNIA; Start 10/12/17 at 00:00 A/P Problem List: (1) Sickle cell crisis ICD Code: D57.00 - Hb-SS disease with crisis, unspecified Status: Acute (2) Anemia ICD Code: D64.9 - Anemia Status: Chronic (3) Hypokalemia ICD Code: E87.6 - Hypokalemia Status: Resolved Assessment and Plan A/P: 1. Sickle Cell Disease: w/ Acute Crisis. Severe. Retic Count elevated, c/o generalized pain typical of flare. CXR w/ no acute findings, images reviewed by me. IVF for hydration, Dilaudid IV, Benadryl prn. Resume home Hydroxyurea and Folic Acid. Follows w/ Dr. Gamino as outpatient, plan for follow up as scheduled. CONTINUE CURRENT PAIN CONTROL 2. Anemia: Anemia of Chronic Disease secondary to Sickle Cell. Hgb 7.2. Will hold off on transfusion to avoid iron-overload. Check Ferritin level. Repeat Hgb in am for trend. May need chelation. 3. Hypokalemia: Previous labs w/ hypokalemia, will check CMP, replace electrolytes as needed. 4. DVT Prophylaxis: SCD/Teds. 5. Social work for d/c planning as needed. 6. Case discussed w/ ER physician at length Discharge Planning CONTINUE UNTIL PAIN BETTER CONTROLLED Madi Uribe DO Oct 12, 2017 11:38
[2017-10-12 17:48] LABS: AUTOMATED NEUTROPHIL # 10.6 TH/MM3 (1.8-7.7); BASOPHIL # 0.3 TH/MM3 (0-0.2); BASOPHIL % 1.4 % (0.0-2.0); EOSINOPHIL % 5.3 % (0.0-4.0); HEMATOCRIT 26.9 % (35.0-46.0); HEMOGLOBIN 9.4 GM/DL (11.6-15.3); LYMPH % 26.9 % (9.0-44.0); LYMPHOCYTE # 5.2 TH/MM3 (1.0-4.8); MEAN CELL VOLUME 83.4 FL (80.0-100.0); MEAN CORPUSCULAR HEMOGLOBIN 29.1 PG (27.0-34.0); MEAN CORPUSCULAR HGB CONC 34.8 % (32.0-36.0); MONOCYTE # 2.1 TH/MM3 (0-0.9); NEUT % 55.4 % (16.0-70.0); PLATELET COUNT 392 TH/MM3 (150-450); RED BLOOD COUNT 3.22 MIL/MM3 (4.00-5.30); RED CELL DISTRIBUTION WIDTH 17.1 % (11.6-17.2); WHITE BLOOD COUNT 19.2 TH/MM3 (4.0-11.0)
[2017-10-12 18:05] LABS: ALBUMIN 3.8 GM/DL (3.4-5.0); AST (GOT) 18 U/L (15-37); BICARBONATE 26.1 MEQ/L (21.0-32.0); BLOOD UREA NITROGEN 5 MG/DL (7-18); CALCIUM 8.5 MG/DL (8.5-10.1); CHLORIDE 109 MEQ/L (98-107); CREATININE 0.72 MG/DL (0.50-1.00); GLOMERULAR FILTRATION RATE 117 ML/MIN (>89); GLUCOSE,RANDOM 71 MG/DL (74-106); MAGNESIUM 1.8 MG/DL (1.5-2.5); SODIUM (NA) 141 MEQ/L (136-145)
[2017-10-12 18:06] LABS: ALT (GPT) 8 U/L (10-53)
[2017-10-12 18:15] LABS: ALKALINE PHOSPHATASE 70 U/L (45-117); FREE T4 0.86 NG/DL (0.76-1.46); PHOSPHORUS 3.8 MG/DL (2.5-4.9); TOTAL BILIRUBIN ADULT 1.5 MG/DL (0.2-1.0); TOTAL PROTEIN 7.3 GM/DL (6.4-8.2)
[2017-10-12 18:28] LABS: BANDS 4 % (0-6); BASOPHILS 1 % (0-2); LYMPHOCYTES 24 % (9-44); MONOCYTES 12 % (0-8); NEUTROPHIL # MANUAL DIFF 11.7 TH/MM3 (1.8-7.7); POLYS (SEG NEUTROPHILS) 57 % (16-70)
[2017-10-12 18:29] LABS: ACANTHOCYTES 1+ (NORMAL); BURR CELLS 1+ (NORMAL)
[2017-10-12 22:31] LABS: HEMOGLOBIN A1C 6.3 % (4.3-6.0)
[2017-10-12] MEDS: ZOLPIDEM TARTRATE 5 MG TAB PO PRN (22:46)
[2017-10-13 00:25] VITALS: BP 135/73; PULSE 85; RESP 18; TEMP 98.2; O2SAT 95
[2017-10-13] MEDS: HYDROmorphone HCL PF 2 MG/ML VIAL IV PUSH PRN ×11 (02:42→23:06)
[2017-10-13] MEDS: SODIUM CHLOR 0.9% 1000 ML INJ 1,000 ML IV SCH ×4 (02:42→18:36)
[2017-10-13] MEDS: diphenhydrAMINE HCL 50 MG/ML VIAL IV PUSH PRN ×6 (02:42→23:05)
[2017-10-13 04:41] LABS: BASOPHIL # 0.2 TH/MM3 (0-0.2); EOSINOPHIL # 1.1 TH/MM3 (0-0.4); EOSINOPHIL % 5.4 % (0.0-4.0); HEMATOCRIT 25.4 % (35.0-46.0); HEMOGLOBIN 8.9 GM/DL (11.6-15.3); LYMPH % 26.2 % (9.0-44.0); LYMPHOCYTE # 5.5 TH/MM3 (1.0-4.8); MEAN CELL VOLUME 82.7 FL (80.0-100.0); MEAN CORPUSCULAR HGB CONC 35.1 % (32.0-36.0); MEAN PLATELET VOLUME 8.4 FL (7.0-11.0); MONO % 9.8 % (0.0-8.0); MONOCYTE # 2.1 TH/MM3 (0-0.9); NEUT % 57.6 % (16.0-70.0); PLATELET COUNT 454 TH/MM3 (150-450); RED BLOOD COUNT 3.07 MIL/MM3 (4.00-5.30); RED CELL DISTRIBUTION WIDTH 17.2 % (11.6-17.2); WHITE BLOOD COUNT 20.9 TH/MM3 (4.0-11.0)
[2017-10-13 05:20] LABS: ALBUMIN 3.6 GM/DL (3.4-5.0); ALKALINE PHOSPHATASE 66 U/L (45-117); ALT (GPT) 10 U/L (10-53); AST (GOT) 23 U/L (15-37); BICARBONATE 27.2 MEQ/L (21.0-32.0); BLOOD UREA NITROGEN 4 MG/DL (7-18); CALCIUM 7.6 MG/DL (8.5-10.1); CHLORIDE 111 MEQ/L (98-107); CREATININE 0.65 MG/DL (0.50-1.00); GLOMERULAR FILTRATION RATE 131 ML/MIN (>89); GLUCOSE,RANDOM 95 MG/DL (74-106); MAGNESIUM 1.5 MG/DL (1.5-2.5); SODIUM (NA) 143 MEQ/L (136-145); TOTAL BILIRUBIN ADULT 1.2 MG/DL (0.2-1.0); TOTAL PROTEIN 6.8 GM/DL (6.4-8.2)
[2017-10-13 05:30] VITALS: BP_SYST 110; BP_SYST 131; BP_DIAS 62; BP_DIAS 69; PULSE 72; PULSE 86; RESP 18; TEMP 96.9; TEMP 97; O2SAT 95; O2SAT 98
[2017-10-13 07:16] LABS: BANDS 4 % (0-6); BASOPHILS 3 % (0-2); CORRECTED NUCLEATED RBC 1 /100 WBC (0-0); LYMPHOCYTES 30 % (9-44); MONOCYTES 5 % (0-8); NEUTROPHIL # MANUAL DIFF 12.1 TH/MM3 (1.8-7.7); NUCLEATED RED BLOOD CELL 1 (0-0); OVALOCYTES 1+ (NORMAL); POLYS (SEG NEUTROPHILS) 54 % (16-70); TARGET CELLS 1+ (NORMAL)
[2017-10-13 08:00] VITALS: BP 127/81; PULSE 84; PULSE 87; RESP 17; TEMP 97.3; O2SAT 99
[2017-10-13] MEDS: DOCUSATE SODIUM 50 MG/SENNA 8.6 MG TAB PO SCH ×3 (09:00→21:02)
[2017-10-13] MEDS: SODIUM CHLORIDE 0.9% FLUSH 10 ML FLUSH IV FLUSH SCH ×2 (09:00→20:58)
[2017-10-13] MEDS: FOLIC ACID 1 MG TAB PO SCH (09:02)
[2017-10-13] MEDS: SODIUM CHLORIDE 0.9% FLUSH 10 ML FLUSH IV FLUSH PRN (09:03)
[2017-10-13] MEDS: SENNOSIDES 8.6 MG TAB PO PRN (09:03)
[2017-10-13] MEDS: LISINOPRIL 5 MG TAB PO SCH (09:03)
[2017-10-13] MEDS: HYDROXYUREA 500 MG CAP PO SCH (09:06)
[2017-10-13 11:06] VITALS: BP 128/81; PULSE 81; RESP 17; TEMP 97.5; O2SAT 99
--- NOTE | 2017-10-13 11:39 | HHI.PR ---
Subjective Remarks Follow up for sickle cell crisis, cough. Patient reports cough with yellowish sputum production as well as some shortness of breath. No fever, chills. No chest pain. Objective Vitals Vital Signs Date Time Temp Pulse Resp B/P (MAP) Pulse Ox O2 Delivery O2 Flow Rate FiO2 10/13/17 11:06 97.5 81 17 128/81 (97) 99 10/13/17 08:00 97.3 84 17 127/81 (96) 99 10/13/17 05:30 96.9 86 18 110/69 (83) 95 10/13/17 00:25 98.2 85 18 135/73 (93) 95 10/12/17 23:51 91 10/12/17 20:25 97.5 72 16 104/70 (81) 96 10/12/17 20:21 79 10/12/17 16:00 96.9 89 18 140/97 (111) 99 10/12/17 16:00 96.9 89 18 140/97 (111) 99 10/12/17 15:45 75 I/O 10/12/17 10/12/17 10/12/17 10/13/17 10/13/17 10/13/17 07:00 15:00 23:00 07:00 15:00 23:00 Intake Total 2370 ml 400 ml 1693 ml 720 ml Balance 2370 ml 400 ml 1693 ml 720 ml Intake Oral 960 ml 720 ml 720 ml IV Total 1000 ml 973 ml Packed Cells 400 ml 400 ml Blood Product IV Normal Saline Flush 10 ml # Voids 4 4 3 5 # Bowel Movements 0 1 0 0 Result Diagram: 10/13/17 0345 10/13/17 0345 Imaging Last Impressions Chest X-Ray 10/13/17 0000 Signed Impressions: Service Date/Time: Friday, October 13, 2017 11:46 - CONCLUSION: No acute disease. Cory Garnett Jr., MD Objective Remarks GENERAL: Alert, Oriented x 3, NAD. SKIN: Warm and dry. HEAD: Normocephalic. EYES: No scleral icterus. No injection or drainage. NECK: Supple, trachea midline. No JVD or lymphadenopathy. CARDIOVASCULAR: Regular rate and rhythm without murmurs, gallops, or rubs. RESPIRATORY: Breath sounds equal bilaterally. No accessory muscle use. GASTROINTESTINAL: Abdomen soft, non-tender, nondistended. MUSCULOSKELETAL: No cyanosis, or edema. BACK: Nontender without obvious deformity. No CVA tenderness. Procedures NONE A/P Problem List: (1) Sickle cell crisis ICD Code: D57.00 - Hb-SS disease with crisis, unspecified Status: Acute (2) Anemia ICD Code: D64.9 - Anemia Status: Chronic (3) Hypokalemia ICD Code: E87.6 - Hypokalemia Status: Resolved Assessment and Plan Ms. Frazier, 27 was admitted due to sickle cell crisis. Sickle Cell Disease: w/ Acute Crisis. Severe. Retic Count elevated, c/o generalized pain typical of flare. CXR w/ no acute findings, images reviewed by me. IVF for hydration, Dilaudid IV, Benadryl prn. Resume home Hydroxyurea and Folic Acid. Follows w/ Dr. Gamino as outpatient, plan for follow up as scheduled. - Continue Dilaudid 1mg and 2mg IV PRN - On 10/14/2017, Will try to switch to PO meds with IV Dilaudid for breakthrough only Anemia: Anemia of Chronic Disease secondary to Sickle Cell. Hgb 7.2 --> 8.9 today. Hypokalemia Hypomagnesemia - K is 3.0 today. Mg 1.5. - Will replace potassium with IV and PO KCL - Will replace Mg with IV Mg sulfate. Probable bronchitis - Acute chest syndrome is unlikely as there is no consolidation or infiltrates on CXR from today. - CXR reviewed by me. Unremarkable study. - Will start patient on Levaquin 750mg Qday. Full code. SCDs. Wolfgang Nieves DO Oct 13, 2017 11:38
--- NOTE | 2017-10-13 12:04 | RADRPT ---
EXAM DATE/TIME: 10/13/2017 11:46 [place] COMPARISON: CHEST SINGLE AP, October 08, 2017, 5:04. INDICATIONS : Cough, short of breath MEDICAL HISTORY : Sickle Cell disease. Gastroesophageal reflux disease. Hypertension. SURGICAL HISTORY : Cholecystectomy. Tubal ligation. section. infusaport ENCOUNTER: Initial ACUITY: 4 - 6 days PAIN SCORE: 0/10 LOCATION: Bilateral chest FINDINGS: A single view of the chest demonstrates the lungs to be symmetrically aerated without evidence of mas s, infiltrate or effusion. The cardiomediastinal contours are unremarkable. Osseous structures are intact. A power portable lines the right chest. CONCLUSION: No acute disease. Cory Garnett Jr., MD on October 13, 2017 at 12:01 Board Certified Radiologist. This report was verified electronically.
[2017-10-13] MEDS: LEVOFLOXACIN 750 MG TAB PO SCH (12:50)
[2017-10-13 16:00] VITALS: BP 129/83; PULSE 93; RESP 17; TEMP 98.2; O2SAT 97
[2017-10-13 20:00] VITALS: BP 131/84; PULSE 92; RESP 16; TEMP 98.3; O2SAT 96
[2017-10-13] MEDS: POTASSIUM CHLORIDE 20 MEQ CONTROLLED RELEASE TAB PO SCH (20:57)
[2017-10-13] MEDS: POTASSIUM CHLOR 20 MEQ PREMIX 100 ML IV SCH (20:57)
[2017-10-13] MEDS: MAGNESIUM SULFATE 1 GM PREMIX 100 ML IV SCH (20:57)
[2017-10-13] MEDS: ZOLPIDEM TARTRATE 5 MG TAB PO PRN (23:06)
[2017-10-14] VITALS (7 sets, daily range): BP systolic 125–141; BP diastolic 80–95; PULSE 85–99; RESP 17–18; TEMP 97.2–99.5; O2SAT 92–100
[2017-10-14] MEDS: HYDROmorphone HCL PF 2 MG/ML VIAL IV PUSH PRN ×10 (01:10→21:07)
[2017-10-14] MEDS: POTASSIUM CHLOR 20 MEQ PREMIX 100 ML IV SCH (01:16)
[2017-10-14] MEDS: diphenhydrAMINE HCL 50 MG/ML VIAL IV PUSH PRN ×5 (03:06→21:06)
[2017-10-14] MEDS: MAGNESIUM SULFATE 1 GM PREMIX 100 ML IV SCH ×3 (04:18→10:46)
[2017-10-14] MEDS: SODIUM CHLOR 0.9% 1000 ML INJ 1,000 ML IV SCH ×3 (05:11→18:31)
[2017-10-14] MEDS: POTASSIUM CHLORIDE 20 MEQ CONTROLLED RELEASE TAB PO SCH ×3 (07:50→21:12)
[2017-10-14] MEDS: FOLIC ACID 1 MG TAB PO SCH (07:52)
[2017-10-14] MEDS: LISINOPRIL 5 MG TAB PO SCH (07:52)
[2017-10-14] MEDS: SODIUM CHLORIDE 0.9% FLUSH 10 ML FLUSH IV FLUSH SCH ×2 (07:52→21:12)
[2017-10-14] MEDS: DOCUSATE SODIUM 50 MG/SENNA 8.6 MG TAB PO SCH ×2 (07:54→21:00)
[2017-10-14] MEDS: HYDROXYUREA 500 MG CAP PO SCH (07:59)
[2017-10-14] MEDS: LEVOFLOXACIN 750 MG TAB PO SCH (12:52)
--- NOTE | 2017-10-14 15:36 | HHI.PR ---
Subjective Remarks Follow up for sickle cell crisis, cough. Patient's pain is improved, cough is improving as well. However, she complains of persistent pain. She appears to be comfortable in bed. Objective Vitals Vital Signs Date Time Temp Pulse Resp B/P (MAP) Pulse Ox O2 Delivery O2 Flow Rate FiO2 10/14/17 12:00 98.2 99 17 138/89 (105) 92 10/14/17 08:00 97.2 85 17 140/91 (107) 100 10/14/17 04:20 97.6 85 17 136/95 (109) 100 10/14/17 00:30 98.5 91 17 141/89 (106) 98 10/13/17 20:00 98.3 92 16 131/84 (100) 96 10/13/17 16:00 98.2 93 17 129/83 (98) 97 I/O 10/13/17 10/13/17 10/13/17 10/14/17 10/14/17 10/14/17 07:00 15:00 23:00 07:00 15:00 23:00 Intake Total 720 ml 1867 ml 480 ml 480 ml Balance 720 ml 1867 ml 480 ml 480 ml Intake Oral 720 ml 480 ml 480 ml 480 ml IV Total 1387 ml # Voids 5 5 4 4 # Bowel Movements 0 0 0 0 Result Diagram: 10/13/17 0345 10/13/17 0345 Imaging Last Impressions Chest X-Ray 10/13/17 0000 Signed Impressions: Service Date/Time: Friday, October 13, 2017 11:46 - CONCLUSION: No acute disease. Cory Garnett Jr., MD Objective Remarks GENERAL: Alert, Oriented x 3, NAD. SKIN: Warm and dry. HEAD: Normocephalic. EYES: No scleral icterus. No injection or drainage. NECK: Supple, trachea midline. No JVD or lymphadenopathy. CARDIOVASCULAR: Regular rate and rhythm without murmurs, gallops, or rubs. RESPIRATORY: Breath sounds equal bilaterally. No accessory muscle use. GASTROINTESTINAL: Abdomen soft, non-tender, nondistended. MUSCULOSKELETAL: No cyanosis, or edema. BACK: Nontender without obvious deformity. No CVA tenderness. Procedures NONE A/P Problem List: (1) Sickle cell crisis ICD Code: D57.00 - Hb-SS disease with crisis, unspecified Status: Acute (2) Anemia ICD Code: D64.9 - Anemia Status: Chronic (3) Hypokalemia ICD Code: E87.6 - Hypokalemia Status: Resolved Assessment and Plan Ms. Frazier, 27 was admitted due to sickle cell crisis. Sickle Cell Disease: w/ Acute Crisis. Severe. Retic Count elevated, c/o generalized pain typical of flare. CXR w/ no acute findings, images reviewed by me. IVF for hydration, Dilaudid IV, Benadryl prn. Resume home Hydroxyurea and Folic Acid. Follows w/ Dr. Gamino as outpatient, plan for follow up as scheduled. - Continue Dilaudid 1mg and 2mg IV PRN - On 10/14/2017, Will try to switch to PO meds with IV Dilaudid for breakthrough only Anemia: Anemia of Chronic Disease secondary to Sickle Cell. Hgb 7.2 --> 8.9 today. Leukocytosis - WBC 20.9 on 10/13/2017. Currently on Levaquin. Will obtain CBC, BMP in the AM. Hypokalemia Hypomagnesemia - K is 3.0 today. Mg 1.5. - Will replace potassium with IV and PO KCL - Will replace Mg with IV Mg sulfate. Probable bronchitis - WBC elevated. Will repeat CBC, BMP in the AM. - Acute chest syndrome is unlikely as there is no consolidation or infiltrates on CXR from today. - CXR reviewed by me. Unremarkable study. - Continue Levaquin 750mg Qday. - Hypertension - Currently normotensive. Will d/c Lisinopril 2.5mg Qday. Lisinopril is not a first line medication for non-diabetic Americans. If needed, we will consider low dose Amlodipine. Full code. SCDs. Wolfgang Nieves DO Oct 14, 2017 15:36
[2017-10-14] MEDS: ZOLPIDEM TARTRATE 5 MG TAB PO PRN (21:06)
[2017-10-15] VITALS (7 sets, daily range): BP systolic 117–137; BP diastolic 66–87; PULSE 60–90; RESP 17–18; TEMP 97.3–99.1; O2SAT 98–100
[2017-10-15] MEDS: HYDROmorphone HCL PF 2 MG/ML VIAL IV PUSH PRN ×11 (00:15→22:24)
[2017-10-15] MEDS: diphenhydrAMINE HCL 50 MG/ML VIAL IV PUSH PRN ×5 (02:44→20:10)
[2017-10-15 06:11] LABS: BASOPHIL # 0.2 TH/MM3 (0-0.2); BASOPHIL % 1.1 % (0.0-2.0); EOSINOPHIL # 0.7 TH/MM3 (0-0.4); EOSINOPHIL % 3.5 % (0.0-4.0); HEMOGLOBIN 9.1 GM/DL (11.6-15.3); LYMPH % 18.3 % (9.0-44.0); LYMPHOCYTE # 3.5 TH/MM3 (1.0-4.8); MEAN CELL VOLUME 83.7 FL (80.0-100.0); MEAN CORPUSCULAR HEMOGLOBIN 29.2 PG (27.0-34.0); MEAN CORPUSCULAR HGB CONC 34.9 % (32.0-36.0); MEAN PLATELET VOLUME 7.9 FL (7.0-11.0); MONO % 8.9 % (0.0-8.0); MONOCYTE # 1.7 TH/MM3 (0-0.9); NEUT % 68.2 % (16.0-70.0); PLATELET COUNT 496 TH/MM3 (150-450); RED CELL DISTRIBUTION WIDTH 17.6 % (11.6-17.2); WHITE BLOOD COUNT 19.1 TH/MM3 (4.0-11.0)
[2017-10-15] MEDS: SODIUM CHLOR 0.9% 1000 ML INJ 1,000 ML IV SCH ×4 (06:44→20:17)
[2017-10-15 06:59] LABS: BICARBONATE 26.3 MEQ/L (21.0-32.0); CALCIUM 8.7 MG/DL (8.5-10.1); CREATININE 0.68 MG/DL (0.50-1.00)
[2017-10-15] MEDS: DOCUSATE SODIUM 50 MG/SENNA 8.6 MG TAB PO SCH ×2 (08:59→20:08)
[2017-10-15] MEDS: POTASSIUM CHLORIDE 20 MEQ CONTROLLED RELEASE TAB PO SCH ×2 (09:00→20:09)
[2017-10-15] MEDS: HYDROXYUREA 500 MG CAP PO SCH (09:02)
[2017-10-15] MEDS: SODIUM CHLORIDE 0.9% FLUSH 10 ML FLUSH IV FLUSH SCH ×2 (09:04→20:10)
[2017-10-15] MEDS: FOLIC ACID 1 MG TAB PO SCH (09:08)
[2017-10-15] MEDS: LEVOFLOXACIN 750 MG TAB PO SCH (13:33)
[2017-10-15] MEDS ORDERED: ACETAMINOPHEN/HYDROcodone 325 MG/7.5 MG TAB PO PRN (15:00)
[2017-10-15] MEDS ORDERED: NAPROXEN 375 MG TAB PO PRN (15:00)
--- NOTE | 2017-10-15 15:04 | HHI.PR ---
Subjective Remarks Follow up for sickle cell crisis, cough. Patient continues to have pain but reports some improvements. No fever, chills. Objective Vitals Vital Signs Date Time Temp Pulse Resp B/P (MAP) Pulse Ox O2 Delivery O2 Flow Rate FiO2 10/15/17 12:00 99.1 85 17 136/82 (100) 99 10/15/17 08:00 97.7 83 17 117/73 (88) 100 10/15/17 04:13 98.1 90 18 129/66 (87) 98 10/14/17 23:37 99.4 92 17 129/84 (99) 97 10/14/17 20:01 99.5 96 18 125/80 (95) 97 10/14/17 16:00 97.7 90 17 133/87 (102) 99 I/O 10/14/17 10/14/17 10/14/17 10/15/17 10/15/17 10/15/17 07:00 15:00 23:00 07:00 15:00 23:00 Intake Total 480 ml 480 ml 480 ml 480 ml Balance 480 ml 480 ml 480 ml 480 ml Intake Oral 480 ml 480 ml 480 ml 480 ml # Voids 4 4 3 4 # Bowel Movements 0 1 0 0 Result Diagram: 10/15/17 0426 10/15/17 0426 Imaging Last Impressions Chest X-Ray 10/13/17 0000 Signed Impressions: Service Date/Time: Friday, October 13, 2017 11:46 - CONCLUSION: No acute disease. Cory Garnett Jr., MD Objective Remarks GENERAL: Alert, Oriented x 3, NAD. SKIN: Warm and dry. HEAD: Normocephalic. EYES: No scleral icterus. No injection or drainage. NECK: Supple, trachea midline. No JVD or lymphadenopathy. CARDIOVASCULAR: Regular rate and rhythm without murmurs, gallops, or rubs. RESPIRATORY: Breath sounds equal bilaterally. No accessory muscle use. GASTROINTESTINAL: Abdomen soft, non-tender, nondistended. MUSCULOSKELETAL: No cyanosis, or edema. BACK: Nontender without obvious deformity. No CVA tenderness. Procedures NONE A/P Problem List: (1) Sickle cell crisis ICD Code: D57.00 - Hb-SS disease with crisis, unspecified Status: Acute (2) Anemia ICD Code: D64.9 - Anemia Status: Chronic (3) Hypokalemia ICD Code: E87.6 - Hypokalemia Status: Resolved Assessment and Plan Ms. Frazier, 27 was admitted due to sickle cell crisis. Sickle Cell Disease: w/ Acute Crisis. Severe. Retic Count elevated, c/o generalized pain typical of flare. CXR w/ no acute findings, images reviewed by me. IVF for hydration, Dilaudid IV, Benadryl prn. Resume home Hydroxyurea and Folic Acid. Follows w/ Dr. Gamino as outpatient, plan for follow up as scheduled. - Will change pain meds. Naproxen for pain 1-4, [place] 7.5 for pain 5-10 and Dilaudid 0.5mg PRN for breakthrough. Anemia: Anemia of Chronic Disease secondary to Sickle Cell. Hgb 7.2 --> 8.9 today. Leukocytosis - WBC 20.9 on 10/13/2017. Currently on Levaquin. WBC is trending down. Will check in the AM again. Hypokalemia Hypomagnesemia - K is 3.0 today. Mg 1.5. - Will replace potassium with IV and PO KCL - Replaced Mg with IV Mg sulfate. - CBC, BMP in the AM. Probable bronchitis - WBC trending down. No clinical signs of infection except for bronchitis. - Acute chest syndrome is unlikely as there is no consolidation or infiltrates on CXR from today. - CXR reviewed by me. Unremarkable study. - Continue Levaquin 750mg Qday. - Hypertension - Currently normotensive. Lisinopril discontinued. Lisinopril is not a first line medication for non-diabetic Americans. If needed, we will consider low dose Amlodipine. Full code. SCDs. Discussed with patient. She is okay for our tentative plan to discharge her tomorrow 10/16/2017. Wolfgang Nieves DO Oct 15, 2017 3:04 pm
[2017-10-15] MEDS: ZOLPIDEM TARTRATE 5 MG TAB PO PRN (20:09)
[2017-10-15] MEDS: SODIUM CHLORIDE 0.9% FLUSH 10 ML FLUSH IV FLUSH PRN (22:25)
[2017-10-16] VITALS: PULSE 87
[2017-10-16 01:03] VITALS: BP 134/85; PULSE 82; RESP 18; TEMP 97.9; O2SAT 99
[2017-10-16] MEDS: HYDROmorphone HCL PF 2 MG/ML VIAL IV PUSH PRN ×7 (01:20→14:52)
[2017-10-16] MEDS: diphenhydrAMINE HCL 50 MG/ML VIAL IV PUSH PRN ×4 (01:20→14:52)
[2017-10-16] MEDS: SODIUM CHLOR 0.9% 1000 ML INJ 1,000 ML IV SCH ×2 (02:21→10:31)
[2017-10-16] MEDS: SODIUM CHLORIDE 0.9% FLUSH 10 ML FLUSH IV FLUSH PRN ×2 (03:29→05:52)
[2017-10-16 04:00] VITALS: PULSE 90
[2017-10-16 04:10] VITALS: BP 143/78; PULSE 85; RESP 18; TEMP 96.2; O2SAT 100
[2017-10-16 07:28] LABS: BICARBONATE 24.8 MEQ/L (21.0-32.0); CALCIUM 8.1 MG/DL (8.5-10.1); CREATININE 0.55 MG/DL (0.50-1.00); MAGNESIUM 1.5 MG/DL (1.5-2.5)
[2017-10-16 07:42] LABS: BASOPHIL # 0.3 TH/MM3 (0-0.2); BASOPHIL % 2.2 % (0.0-2.0); EOSINOPHIL # 0.7 TH/MM3 (0-0.4); EOSINOPHIL % 4.3 % (0.0-4.0); HEMATOCRIT 25.2 % (35.0-46.0); HEMOGLOBIN 8.7 GM/DL (11.6-15.3); LYMPH % 20.6 % (9.0-44.0); LYMPHOCYTE # 3.2 TH/MM3 (1.0-4.8); MEAN CELL VOLUME 83.9 FL (80.0-100.0); MEAN CORPUSCULAR HEMOGLOBIN 28.8 PG (27.0-34.0); MEAN CORPUSCULAR HGB CONC 34.3 % (32.0-36.0); MEAN PLATELET VOLUME 8.1 FL (7.0-11.0); MONO % 7.5 % (0.0-8.0); MONOCYTE # 1.2 TH/MM3 (0-0.9); NEUT % 65.4 % (16.0-70.0); PLATELET COUNT 461 TH/MM3 (150-450); RED BLOOD COUNT 3.01 MIL/MM3 (4.00-5.30); RED CELL DISTRIBUTION WIDTH 17.2 % (11.6-17.2); WHITE BLOOD COUNT 15.3 TH/MM3 (4.0-11.0)
[2017-10-16 08:00] VITALS: BP 121/66; PULSE 78; RESP 15; TEMP 97.8; O2SAT 96
[2017-10-16] MEDS: POTASSIUM CHLORIDE 20 MEQ CONTROLLED RELEASE TAB PO SCH ×2 (08:43→09:00)
[2017-10-16] MEDS: HYDROXYUREA 500 MG CAP PO SCH (08:43)
[2017-10-16] MEDS: DOCUSATE SODIUM 50 MG/SENNA 8.6 MG TAB PO SCH (08:43)
[2017-10-16] MEDS: FOLIC ACID 1 MG TAB PO SCH (08:43)
[2017-10-16] MEDS: SODIUM CHLORIDE 0.9% FLUSH 10 ML FLUSH IV FLUSH SCH (09:00)
[2017-10-16] MEDS ORDERED: POTASSIUM CHLORIDE 20 MEQ CONTROLLED RELEASE TAB PO ONE (11:00)
--- NOTE | 2017-10-16 11:31 | HHI.DS ---
Discharge Summary Admission Date Oct 11, 2017 at 23:49 Discharge Date: Oct 16, 2017 Admitting Diagnosis sickle cell disease, some dramatic any (1) Sickle cell crisis ICD Code: D57.00 - Hb-SS disease with crisis, unspecified Status: Acute (2) Anemia ICD Code: D64.9 - Anemia Status: Chronic (3) Hypokalemia ICD Code: E87.6 - Hypokalemia Status: Resolved Procedures NONE Brief History - From Admission HPI from the admitting physician This is a 27-year-old female with a PMH of Sickle Cell Disease and Anxiety who presented the ear with complaints of generalized pain typical for sickle cell crises. Recent ER presentation on 10/08/17 for similar complaints, s/p analgesics and IVF in ER and d/c'd home. Seen by her Ultrasonic Solderer, Dr. Gamino, on and was instructed to return to the ER if symptoms recurred. Today , pt w/ worsening pain typical of flare. Denies fever, chills, cough, chest pain, nausea, vomiting or diarrhea. On arrival, BP 133/89, HR 118, O2 sat 100% on RA, Temp 99.4. WBC 14.3. Hemoglobin 7.2. Reticulocyte Count elevated 6.4. S/p Morphine x2 in ER w/ minimal improvement. CBC/BMP: 10/16/17 0600 10/16/17 0600 Significant Findings Laboratory Tests Test 10/15/17 04:26 10/16/17 06:00 White Blood Count 19.1 TH/MM3 (4.0-11.0) 15.3 TH/MM3 (4.0-11.0) Red Blood Count 3.10 MIL/MM3 (4.00-5.30) 3.01 MIL/MM3 (4.00-5.30) Hemoglobin 9.1 GM/DL (11.6-15.3) 8.7 GM/DL (11.6-15.3) Hematocrit 26.0 % (35.0-46.0) 25.2 % (35.0-46.0) Red Cell Distribution Width 17.6 % (11.6-17.2) Platelet Count 496 TH/MM3 (150-450) 461 TH/MM3 (150-450) Monocytes (%) (Auto) 8.9 % (0.0-8.0) Neutrophils # (Auto) 13.0 TH/MM3 (1.8-7.7) 10.0 TH/MM3 (1.8-7.7) Monocytes # (Auto) 1.7 TH/MM3 (0-0.9) 1.2 TH/MM3 (0-0.9) Eosinophils # (Auto) 0.7 TH/MM3 (0-0.4) 0.7 TH/MM3 (0-0.4) Blood Urea Nitrogen 3 MG/DL (7-18) 3 MG/DL (7-18) Potassium Level 3.3 MEQ/L (3.5-5.1) 3.3 MEQ/L (3.5-5.1) Eosinophils (%) (Auto) 4.3 % (0.0-4.0) Basophils (%) (Auto) 2.2 % (0.0-2.0) Basophils # (Auto) 0.3 TH/MM3 (0-0.2) Calcium Level 8.1 MG/DL (8.5-10.1) Chloride Level 109 MEQ/L (98-107) Imaging Last Impressions Chest X-Ray 10/13/17 0000 Signed Impressions: Service Date/Time: Friday, October 13, 2017 11:46 - CONCLUSION: No acute disease. Cory Garnett Jr., MD PE at Discharge GENERAL: Alert, Oriented x 3, NAD. SKIN: Warm and dry. HEAD: Normocephalic. EYES: No scleral icterus. No injection or drainage. NECK: Supple, trachea midline. No JVD or lymphadenopathy. CARDIOVASCULAR: Regular rate and rhythm without murmurs, gallops, or rubs. RESPIRATORY: Breath sounds equal bilaterally. No accessory muscle use. GASTROINTESTINAL: Abdomen soft, non-tender, nondistended. MUSCULOSKELETAL: No cyanosis, or edema. BACK: Nontender without obvious deformity. No CVA tenderness. Pt update on day of discharge Patient reports that her pain is better controlled. We discussed discharge planning and outpatient follow-up with her newspaper photo editor. Hospital Course 27 was admitted due to sickle cell pain crisis. Evaluation and treatment because detailed below: Sickle Cell Disease: w/ Acute Crisis. Severe. Retic Count elevated, c/o generalized pain typical of flare. CXR w/ no acute findings. Patient treated with IVF for hydration, Dilaudid IV, Benadryl prn. Resume home Hydroxyurea and Folic Acid. Follows w/ Dr. Gamino as outpatient -Pain crisis improved and the patient was deemed stable for discharge home. Anemia: Anemia of Chronic Disease secondary to Sickle Cell. Patient was transfused a total of 2 units. Hemoglobin stabilized. She is advised to follow -up outpatient with her newspaper photo editor. Leukocytosis - WBC 20.9 on 10/13/2017. Patient was empirically treated with Levaquin. WBC trended down. She was discharged without antibiotics. Hypokalemia Hypomagnesemia -Electrolytes were replaced. Pt Condition on Discharge: Good Discharge Disposition: Discharge Home Discharge Time: <= 30 minutes Discharge Instructions DIET: Follow Instructions for: As Tolerated, No Restrictions Activities you can perform: Regular-No Restrictions Follow up Referrals: Hematology - 2 Weeks Continued Medications: Albuterol 6.7 GM Inh (Proventil Hfa 6.7 GM Inh) 90 Mcg/Act Aer 2 PUFF INH Q6H PRN for SHORTNESS OF BREATH, #1 INHALER 0 Refills Folic Acid (Folic Acid) 400 Mcg Tab 400 MCG PO DAILY for Nutritional Supplement, TAB 0 Refills Hydrocodone/Acetaminophen (Hydrocodone-Acetamin 10-325 mg) 10 Mg-325 Mg Tablet 1 TAB PO Q6HR PRN for pain, #30 TAB 0 Refills Hydroxyurea (Hydrea) 500 Mg Cap 500 MG PO DAILY for sickle cell, #30 CAP 0 Refills Lisinopril (Lisinopril) 5 Mg Tab 2.5 MG PO DAILY for heart failure, #30 TAB Zolpidem (Ambien) 5 Mg Tab 5 MG PO HS PRN for INSOMNIA, TAB 0 Refills Gil Thompson MD Oct 16, 2017 11:31
[2017-10-16 12:00] VITALS: BP 142/92; PULSE 85; RESP 16; TEMP 98; O2SAT 97
[2017-10-16] MEDS: LEVOFLOXACIN 750 MG TAB PO SCH (12:34)
[2017-10-16] MEDS ORDERED: SODIUM CHLORIDE 0.9% FLUSH 10 ML FLUSH IV FLUSH PRN (16:00)
== END 2017-10-16 16:42 | disposition home or self-care (01) | DRG 812 ==
LOC: NEPC 21:24 → NEDA 23:49 → N06A 10-12 00:30 → N06B 10-15 13:48 → N06A 10-15 13:54
PROVIDERS: ADMIT Family Medicine; ATTEND Family Medicine
PROC: 30233N1 Transfusion of Nonautologous Red Blood Cells into Peripheral Vein, Percutaneous Approach (ICD-10-PCS; principal; 2017-10-12)
DX: D57.00 Hb-SS disease with crisis, unspecified (principal); I11.0 Hypertensive heart disease with heart failure; I50.9 Heart failure, unspecified; E87.6 Hypokalemia; D63.8 Anemia in other chronic diseases classified elsewhere; R00.0 Tachycardia, unspecified; J40 Bronchitis, not specified as acute or chronic; D72.829 Elevated white blood cell count, unspecified; F41.9 Anxiety disorder, unspecified; Z88.5 Allergy status to narcotic agent; Z88.6 Allergy status to analgesic agent
CPT/HCPCS: 36430; 71045; 80048; 80053; 82728; 83036; 83735; 84100; 84439; 84443; 85007; 85025; 85027; 85044; 86850; 86900; 86901; 86902; 86920; 86922; 96361; 96374; 96376; J1170; J1200; J1642; J2270; J2405; J3475; J3480; J7030; J7050; P9016; Q0163

== ENCOUNTER 2017-10-28 02:47 | Emergency (ER) | payer MEDICAID ==
[~2017-10-28] VITALS: Ht 165.1 cm; Wt 70.0 kg
[~2017-10-28 02:47] MED LIST changes: +AMBI5TAB PO; -CARV3.125 PO
[2017-10-28 02:49] VITALS: BP 116/57; PULSE 95; RESP 18; TEMP 99.1; O2SAT 100
[2017-10-28] MEDS ORDERED: SODIUM CHLOR 0.9% 1000 ML INJ 1,000 ML IV ONE ×2 (03:12→05:00)
[2017-10-28] MEDS ORDERED: diphenhydrAMINE HCL 50 MG/ML VIAL IV PUSH ONE (03:15)
[2017-10-28] MEDS ORDERED: KETOROLAC TROMETHAMINE 30 MG/ML (IVP) VIAL IVP ONE (03:15)
[2017-10-28] MEDS ORDERED: SODIUM CHLORIDE 0.9% FLUSH 10 ML FLUSH IVF PRN (03:15)
[2017-10-28 04:10] LABS: BACTERIA, URINE FEW /hpf; BILIRUBIN, URINE NEG (NEG); BLOOD, URINE NEG (NEG); GLUCOSE,URINE NEG (NEG); KETONE, URINE NEG (NEG); MUCUS URINE FEW /lpf (OCC); NITRITE,URINE NEG (NEG); PH, URINE 6.5 (5.0-8.5); SQUAMOUS EPITHELIAL CELL URINE 51 /hpf (0-5); URINE COLOR YELLOW (YELLW/STRAW); URINE LEUKOCYTE ESTERASE TRACE (NEG)
[2017-10-28 04:10] LABS: AUTOMATED NEUTROPHIL # 8.4 TH/MM3 (1.8-7.7); BASOPHIL # 0.1 TH/MM3 (0-0.2); BASOPHIL % 0.6 % (0.0-2.0); EOSINOPHIL # 0.6 TH/MM3 (0-0.4); EOSINOPHIL % 3.9 % (0.0-4.0); HEMATOCRIT 23.7 % (35.0-46.0); HEMOGLOBIN 8.3 GM/DL (11.6-15.3); LYMPH % 32.7 % (9.0-44.0); LYMPHOCYTE # 5.2 TH/MM3 (1.0-4.8); MEAN CELL VOLUME 82.6 FL (80.0-100.0); MEAN CORPUSCULAR HEMOGLOBIN 28.9 PG (27.0-34.0); MEAN CORPUSCULAR HGB CONC 34.9 % (32.0-36.0); MEAN PLATELET VOLUME 8.5 FL (7.0-11.0); MONOCYTE # 1.6 TH/MM3 (0-0.9); NEUT % 52.8 % (16.0-70.0); PLATELET COUNT 445 TH/MM3 (150-450); RED BLOOD COUNT 2.86 MIL/MM3 (4.00-5.30); RED CELL DISTRIBUTION WIDTH 16.8 % (11.6-17.2); RETIC # 27.1 MIL/L (20.0-150.0)
[2017-10-28 04:16] LABS: ALBUMIN 3.8 GM/DL (3.4-5.0); ALT (GPT) 8 U/L (10-53); AST (GOT) 20 U/L (15-37); BICARBONATE 23.3 MEQ/L (21.0-32.0); BLOOD UREA NITROGEN 8 MG/DL (7-18); CALCIUM 8.5 MG/DL (8.5-10.1); CHLORIDE 109 MEQ/L (98-107); CREATININE 0.69 MG/DL (0.50-1.00); GLOMERULAR FILTRATION RATE 123 ML/MIN (>89); GLUCOSE,RANDOM 94 MG/DL (74-106); SODIUM (NA) 140 MEQ/L (136-145)
[2017-10-28 04:18] LABS: ALKALINE PHOSPHATASE 69 U/L (45-117); TOTAL BILIRUBIN ADULT 0.8 MG/DL (0.2-1.0); TOTAL PROTEIN 7.5 GM/DL (6.4-8.2)
[2017-10-28 04:56] LABS: ACANTHOCYTES OCC (NORMAL); BANDS 10 % (0-6); BASOPHILS 2 % (0-2); LYMPHOCYTES 17 % (9-44); MONOCYTES 12 % (0-8); NEUTROPHIL # MANUAL DIFF 10.4 TH/MM3 (1.8-7.7); POLYS (SEG NEUTROPHILS) 55 % (16-70); TOXIC VACUOLATION PRESENT (NONE SEEN)
[2017-10-28 04:57] LABS: HOWELL-JOLLY BODIES PRESENT (NONE SEEN)
[2017-10-28] MEDS ORDERED: traMADol HCL 50 MG TAB PO ONE (05:00)
--- NOTE | 2017-10-28 05:17 | PD ---
HPI . Sickle cell Chief Complaint: Sickle Cell Time Seen by Provider: 03:07 Travel History International Travel<30 days: No Contact w/Intl Traveler<30days: No Traveled to known affect area: No History of Present Illness HPI 27-year-old female with history of sickle cell disease who presents frequently to the ED with painful crises, presents this evening noting that she has got pain all over her body. Patient denies having recent cough or colds, has no chest pain, no shortness of breath, no fever. PFSH Past Medical History Narrative Medical Past medical history reviewed Anemia: Yes Arthritis: No Asthma: Yes Autoimmune Disease: No Blood Disorders: Yes Anxiety: Yes Depression: No Heart Rhythm Problems: No Cancer: No Cardiovascular Problems: Yes (CHF) High Cholesterol: No Chemotherapy: No Chest Pain: Yes Congestive Heart Failure: Yes COPD: No Cerebrovascular Accident: No Cystic Fibrosis: No Diabetes: No Diminished Hearing: No Endocrine: No Gastrointestinal Disorders: No GERD: No Glaucoma: No Genitourinary: No Headaches: Yes Hepatitis: No Hiatal Hernia: No Heparin Induced Thrombocytopen: No Hypertension: No Immune Disorder: No Implanted Vascular Access Dvce: Yes Kidney Stones: No Musculoskeletal: No Neurologic: Yes Psychiatric: Yes Reproductive: No Respiratory: Yes Immunizations Current: Yes Migraines: Yes Myocardial Infarction: No Pneumonia: Yes Radiation Therapy: No Renal Failure: No Seizures: No Sickle Cell Disease: Yes Sleep Apnea: No Thyroid Disease: No Ulcer: No Tetanus Vaccination: Unknown Influenza Vaccination: No PNEUMOCCOCAL Vaccine (Year): 1 ?: Not LMP: 10/06/2017 : 1 Para: 1 Miscarriage: 0 : 0 Tubal Ligation: Yes Past Surgical History Abdominal Surgery: Yes (gall stones removed) AICD: No Appendectomy: No Arteriovenous Shunt: No Body Medical Devices: R Chest Infusaport (3RD) Cardiac Surgery: No Section: Yes (X 1) Cholecystectomy: Yes Ear Surgery: No Endocrine Surgery: No Eye Surgery: No Genitourinary Surgery: No Gynecologic Surgery: Yes (c section) Hysterectomy: No Insulin Pump: No Joint Replacement: No Neurologic Surgery: No Oral Surgery: No Pacemaker: No Thoracic Surgery: No Other Surgery: Yes (PORTX3 PLACED AND REMOVED) Social History Alcohol Use: Yes (occ) Tobacco Use: No Substance Use: No Allergies-Medications (Allergen,Severity, Reaction): Coded Allergies: acetaminophen (Verified Allergy, Severe, 10/28/17) oxycodone (Unverified Adverse Reaction, Severe, Nausea/Vomiting, 10/28/17) AND ITCHING Reported Meds & Prescriptions Reported Meds & Active Scripts Active Hydrocodone-Acetamin 10-325 mg (Hydrocodone/Acetaminophen) 10 Mg-325 Mg Tablet 1 Tab PO Q6HR PRN Lisinopril 5 Mg Tab 2.5 Mg PO DAILY Hydrea (Hydroxyurea) 500 Mg Cap 500 Mg PO DAILY Macrobid (Nitrofurantoin Monoh/Nitrofur Macro) 100 Mg Cap 100 Mg PO BID Lortab (Hydrocodone-Acetaminophen) 10-325 Mg Tab 1 Tab PO Q6H PRN Folic Acid 1 Mg Tablet 1 Mg PO DAILY 30 Days Reported Ambien (Zolpidem Tartrate) 5 Mg Tab 5 Mg PO HS PRN Folic Acid 400 Mcg Tab 400 Mcg PO DAILY Proventil Hfa 6.7 GM Inh (Albuterol Sulfate) 90 Mcg/Act Aer 2 Puff INH Q6H PRN Narrative Medication Allergies and medications reviewed Review of Systems Except as stated in HPI: all other systems reviewed are Neg General / Constitutional: No: Fever Eyes: No: Visual changes HENT: No: Headaches Cardiovascular: No: Chest Pain or Discomfort Respiratory: No: Shortness of Breath Gastrointestinal: No: Abdominal Pain Genitourinary: No: Dysuria Musculoskeletal: Positive: Pain Skin: No Rash Neurologic: No: Weakness Psychiatric: No: Depression Endocrine: No: Polydipsia Hematologic/Lymphatic: No: Easy Bruising Physical Exam Narrative GENERAL: Awake and alert and oriented 3 no acute distress. Vital signs afebrile normal and stable. Patient is pleasant and smiling SKIN: Warm and dry. Color is normal no diaphoresis cyanosis pallor or rashes HEAD: Atraumatic. Normocephalic. EYES: Pupils equal and round. No scleral icterus. No injection or drainage. ENT: No nasal bleeding or discharge. Mucous membranes pink and moist. No oral lesions NECK: Trachea midline. No JVD. Supple nontender full range of motion CARDIOVASCULAR: Regular rate and rhythm. S1-S2 no murmurs rubs gallops RESPIRATORY: No accessory muscle use. Clear to auscultation. Breath sounds equal bilaterally. GASTROINTESTINAL: Abdomen soft, non-tender, nondistended. Hepatic and splenic margins not palpable. MUSCULOSKELETAL: Extremities without clubbing, cyanosis, or edema. No obvious deformities. NEUROLOGICAL: Awake and alert. No obvious cranial nerve deficits. Motor grossly within normal limits. Five out of 5 muscle strength in the arms and legs. Normal speech. PSYCHIATRIC: Appropriate mood and affect; insight and judgment normal. Data Data Last Documented VS Vital Signs Date Time Temp Pulse Resp B/P (MAP) Pulse Ox O2 Delivery O2 Flow Rate FiO2 10/28/17 03:50 98 Nasal Cannula 2.00 10/28/17 02:49 99.1 95 18 116/57 (76) Orders Orders Complete Blood Count With Diff (10/28/17 03:12) Comprehensive Metabolic Panel (10/28/17 03:12) Retic Count (10/28/17 03:12) Urinalysis - C+S If Indicated (10/28/17 03:12) Ecg Monitoring (10/28/17 03:12) Iv Access Insert/Monitor (10/28/17 03:12) Oximetry (10/28/17 03:12) Oxygen Administration (10/28/17 03:12) Ketorolac Inj (Toradol Inj) (10/28/17 03:15) Sodium Chloride 0.9% Flush (Ns Flush) (10/28/17 03:15) Sodium Chlor 0.9% 1000 Ml Inj (Ns 1000 M (10/28/17 03:12) Diphenhydramine Inj (Benadryl Inj) (10/28/17 03:15) Tramadol (Ultram) (10/28/17 05:00) Sodium Chlor 0.9% 1000 Ml Inj (Ns 1000 M (10/28/17 05:00) Labs Laboratory Tests Test 10/28/17 03:25 10/28/17 03:45 Urine Color YELLOW Urine Turbidity CLOUDY Urine pH 6.5 Urine Specific [place] 1.014 Urine Protein TRACE mg/dL Urine Glucose (UA) NEG mg/dL Urine Ketones NEG mg/dL Urine Occult Blood NEG Urine Nitrite NEG Urine Bilirubin NEG Urine Urobilinogen LESS THAN 2.0 MG/DL Urine Leukocyte Esterase TRACE Urine RBC 1 /hpf Urine WBC 3 /hpf Urine Squamous Epithelial Cells 51 /hpf Urine Bacteria FEW /hpf Urine Mucus FEW /lpf Microscopic Urinalysis Comment CULT NOT INDICATED White Blood Count 16.0 TH/MM3 Red Blood Count 2.86 MIL/MM3 Hemoglobin 8.3 GM/DL Hematocrit 23.7 % Mean Corpuscular Volume 82.6 FL Mean Corpuscular Hemoglobin 28.9 PG Mean Corpuscular Hemoglobin Concent 34.9 % Red Cell Distribution Width 16.8 % Platelet Count 445 TH/MM3 Mean Platelet Volume 8.5 FL Neutrophils (%) (Auto) 52.8 % Lymphocytes (%) (Auto) 32.7 % Monocytes (%) (Auto) 10.0 % Eosinophils (%) (Auto) 3.9 % Basophils (%) (Auto) 0.6 % Neutrophils # (Auto) 8.4 TH/MM3 Lymphocytes # (Auto) 5.2 TH/MM3 Monocytes # (Auto) 1.6 TH/MM3 Eosinophils # (Auto) 0.6 TH/MM3 Basophils # (Auto) 0.1 TH/MM3 CBC Comment AUTO DIFF Differential Total Cells Counted 100 Neutrophils % (Manual) 55 % Band Neutrophils % 10 % Lymphocytes % 17 % Monocytes % 12 % Eosinophils % 4 % Basophils % 2 % Neutrophils # (Manual) 10.4 TH/MM3 Differential Comment FINAL DIFF MANUAL Toxic Vacuolation PRESENT Platelet Estimate NORMAL Platelet Morphology Comment ENLARGED [place] Bodies PRESENT Acanthocytes OCC Reticulocyte Count 1.0 % Absolute Reticulocyte Count 27.1 MIL/L Blood Urea Nitrogen 8 MG/DL Creatinine 0.69 MG/DL Random Glucose 94 MG/DL Total Protein 7.5 GM/DL Albumin 3.8 GM/DL Calcium Level 8.5 MG/DL Alkaline Phosphatase 69 U/L Aspartate Amino Transf (AST/SGOT) 20 U/L Alanine Aminotransferase (ALT/SGPT) 8 U/L Total Bilirubin 0.8 MG/DL Sodium Level 140 MEQ/L Potassium Level 3.5 MEQ/L Chloride Level 109 MEQ/L Carbon Dioxide Level 23.3 MEQ/L Anion Gap 8 MEQ/L Estimat Glomerular Filtration Rate 123 ML/MIN [facility] Medical Decision Making Medical Screen Exam Complete: Yes Emergency Medical Condition: Yes Medical Record Reviewed: Yes Differential Diagnosis Sickle cell painful crisis, malingering Narrative Course Patient's laboratory examinations reviewed, patient is elevated white blood cell count with which is consistent with her usual presentation. White blood cell counts reviewed over the past year range from 14-20 generally. Patient's reticulocyte count is 1, within normal range. Repeat vital signs normal. At presentation, patient stated to nurse that she wanted the Benadryl and Dilaudid pushed fast. When informed that she was not being given Dilaudid currently, patient became obstinate with staff. Patient's presentation and physical appearance is discordant with the level of complaint of patient's pain. Patient is ambulating easily, showing no hesitation movement, and is smiling at presentation. Patient offered alternatives to Dilaudid and Benadryl IV push in a rapid version which patient refused. Patient signed out AGAINST MEDICAL ADVICE Diagnosis Primary Impression: Sickle cell anemia Qualified Codes: D57.00 - Hb-SS disease with crisis, unspecified Patient Instructions: General Instructions, Sickle Cell Disease (GEN) Additional Instructions: Patient did not wait for discharge instructions Disposition: 07 AGAINST MEDICAL ADVICE Condition: Stable Mark Lund MD Oct 28, 2017 05:17
== END 2017-10-28 05:24 | disposition left against medical advice (07) ==
LOC: NEPE 02:47
DX: D57.00 Hb-SS disease with crisis, unspecified (principal); J45.909 Unspecified asthma, uncomplicated; I50.9 Heart failure, unspecified
CPT/HCPCS: 80053; 81001; 85007; 85027; 85044; 96361; 96374; 96375; 99283; J1200; J1885; J7030

== ENCOUNTER 2017-11-02 02:17 | Emergency (ER) | payer MEDICAID ==
[~2017-11-02] VITALS: Ht 165.1 cm; Wt 65.0 kg
[2017-11-02 02:45] VITALS: BP 150/66; PULSE 91; RESP 20; TEMP 98.9; O2SAT 100
[2017-11-02] MEDS ORDERED: SODIUM CHLOR 0.9% 1000 ML INJ 1,000 ML IV ONE (03:26)
[2017-11-02] MEDS ORDERED: diphenhydrAMINE HCL 50 MG/ML VIAL IV PUSH ONE (03:30)
[2017-11-02] MEDS ORDERED: SODIUM CHLORIDE 0.9% FLUSH 10 ML FLUSH IVF PRN (03:30)
[2017-11-02] MEDS ORDERED: ONDANSETRON HCL 4 MG/2 ML VIAL IV PUSH ONE (03:30)
[2017-11-02] MEDS ORDERED: KETOROLAC TROMETHAMINE 30 MG/ML (IVP) VIAL IVP ONE (03:30)
[2017-11-02] MEDS ORDERED: MORPHINE SULFATE 4 MG/ML INJ IV PUSH ONE (03:30)
[2017-11-02 03:32] VITALS: O2SAT 97
--- NOTE | 2017-11-02 03:33 | PD ---
HPI Chief Complaint: Sickle Cell Time Seen by Provider: 03:18 Travel History International Travel<30 days: No Contact w/Intl Traveler<30days: No Traveled to known affect area: No History of Present Illness HPI 27-year-old female complains of pain all over the body. Patient has history of sickle cell disease with frequent sickle cell crisis pain. Patient states that the pain started yesterday. Patient states that the pain is aching pain all over the body. Patient denies any headache. Patient denies any chest pain or shortness of breath. Patient denies any coughing congestion. Patient denies abdominal pain. Patient denies any nausea vomiting diarrhea. Patient denies any dysuria fever. Patient is on her menstruation period Now. PFS Past Medical History Anemia: Yes Arthritis: No Asthma: Yes Autoimmune Disease: No Blood Disorders: Yes Anxiety: Yes Depression: No Heart Rhythm Problems: No Cancer: No Cardiovascular Problems: Yes (CHF) High Cholesterol: No Chemotherapy: No Chest Pain: Yes Congestive Heart Failure: Yes COPD: No Cerebrovascular Accident: No Cystic Fibrosis: No Diabetes: No Diminished Hearing: No Endocrine: No Gastrointestinal Disorders: No GERD: No Glaucoma: No Genitourinary: No Headaches: Yes Hepatitis: No Hiatal Hernia: No Heparin Induced Thrombocytopen: No Hypertension: No Immune Disorder: No Implanted Vascular Access Dvce: Yes Kidney Stones: No Musculoskeletal: No Neurologic: Yes Psychiatric: Yes Reproductive: No Respiratory: Yes (asthma) Immunizations Current: Yes Migraines: Yes Myocardial Infarction: No Pneumonia: Yes Radiation Therapy: No Renal Failure: No Seizures: No Sickle Cell Disease: Yes Sleep Apnea: No Thyroid Disease: No Ulcer: No PNEUMOCCOCAL Vaccine (Year): 1 ?: Unknown LMP: 10/29/17 : 1 Para: 1 Miscarriage: 0 : 0 Tubal Ligation: Yes Past Surgical History Abdominal Surgery: Yes (gall stones removed) AICD: No Appendectomy: No Arteriovenous Shunt: No Body Medical Devices: R Chest Infusaport (3RD) Cardiac Surgery: No Section: Yes (X 1) Cholecystectomy: Yes Ear Surgery: No Endocrine Surgery: No Eye Surgery: No Genitourinary Surgery: No Gynecologic Surgery: Yes (c section) Hysterectomy: No Insulin Pump: No Joint Replacement: No Neurologic Surgery: No Oral Surgery: No Pacemaker: No Thoracic Surgery: No Other Surgery: Yes (PORTX3 PLACED AND REMOVED) Social History Alcohol Use: Yes (occ) Tobacco Use: No Substance Use: No Allergies-Medications (Allergen,Severity, Reaction): Coded Allergies: acetaminophen (Verified Adverse Reaction, Intermediate, itching, 11/02/17) nausea/vomiting/itiching Not allergic to tylenol just the codeine part of percocet oxycodone (Verified Adverse Reaction, Intermediate, itching, 11/02/17) nausea/vomiting/itiching Not allergic to tylenol just the codeine part of percocet Reported Meds & Prescriptions Reported Meds & Active Scripts Active Hydrocodone-Acetamin 10-325 mg (Hydrocodone/Acetaminophen) 10 Mg-325 Mg Tablet 1 Tab PO Q6HR PRN Hydrea (Hydroxyurea) 500 Mg Cap 500 Mg PO DAILY Folic Acid 1 Mg Tablet 1 Mg PO DAILY 30 Days Reported Ambien (Zolpidem Tartrate) 5 Mg Tab 5 Mg PO HS PRN Proventil Hfa 6.7 GM Inh (Albuterol Sulfate) 90 Mcg/Act Aer 2 Puff INH Q6H PRN Review of Systems General / Constitutional: No: Fever Eyes: No: Visual changes HENT: No: Headaches Cardiovascular: No: Chest Pain or Discomfort Respiratory: No: Shortness of Breath Gastrointestinal: No: Abdominal Pain Genitourinary: No: Dysuria Musculoskeletal: No: Pain Skin: No Rash Neurologic: No: Weakness Psychiatric: No: Depression Endocrine: No: Polydipsia Hematologic/Lymphatic: No: Easy Bruising Physical Exam Narrative GENERAL: Well-nourished, well-developed patient. SKIN: Focused skin assessment warm/dry. HEAD: Normocephalic. EYES: No scleral icterus. No injection or drainage. NECK: Supple, trachea midline. No JVD or lymphadenopathy. CARDIOVASCULAR: Regular rate and rhythm without murmurs, gallops, or rubs. RESPIRATORY: Breath sounds equal bilaterally. No accessory muscle use. GASTROINTESTINAL: Abdomen soft, non-tender, nondistended. MUSCULOSKELETAL: No cyanosis, or edema. BACK: Nontender without obvious deformity. No CVA tenderness. Neurologic exam normal. Data Data Last Documented VS Vital Signs Date Time Temp Pulse Resp B/P (MAP) Pulse Ox O2 Delivery O2 Flow Rate FiO2 11/02/17 03:43 84 20 141/79 (99) 100 Room Air 11/02/17 02:45 98.9 Orders Orders Complete Blood Count With Diff (3/5/18 03:26) Retic Count (11/02/17 03:26) Ecg Monitoring (11/02/17 03:26) Iv Access Insert/Monitor (11/02/17 03:26) Oximetry (11/02/17 03:26) Ketorolac Inj (Toradol Inj) (11/02/17 03:30) Sodium Chloride 0.9% Flush (Ns Flush) (11/02/17 03:30) Sodium Chlor 0.9% 1000 Ml Inj (Ns 1000 M (11/02/17 03:26) Morphine Inj (Morphine Inj) (11/02/17 03:30) Ondansetron Inj (Zofran Inj) (11/02/17 03:30) Diphenhydramine Inj (Benadryl Inj) (11/02/17 03:30) Labs Laboratory Tests Test 11/02/17 03:50 White Blood Count 14.9 TH/MM3 Red Blood Count 2.86 MIL/MM3 Hemoglobin 8.2 GM/DL Hematocrit 23.9 % Mean Corpuscular Volume 83.7 FL Mean Corpuscular Hemoglobin 28.6 PG Mean Corpuscular Hemoglobin Concent 34.1 % Red Cell Distribution Width 17.0 % Platelet Count 605 TH/MM3 Mean Platelet Volume 8.4 FL Neutrophils (%) (Auto) 47.0 % Lymphocytes (%) (Auto) 39.5 % Monocytes (%) (Auto) 8.7 % Eosinophils (%) (Auto) 4.3 % Basophils (%) (Auto) 0.5 % Neutrophils # (Auto) 7.0 TH/MM3 Lymphocytes # (Auto) 5.9 TH/MM3 Monocytes # (Auto) 1.3 TH/MM3 Eosinophils # (Auto) 0.6 TH/MM3 Basophils # (Auto) 0.1 TH/MM3 CBC Comment AUTO DIFF Reticulocyte Count 3.3 % Absolute Reticulocyte Count 93.5 MIL/L MDM Medical Decision Making Medical Screen Exam Complete: Yes Emergency Medical Condition: Yes Interpretation(s) 4:29 AM. CBC patient at baseline. Differential Diagnosis Differential diagnosis including sickle cell crisis pain, anemia. Narrative Course 27-year-old female with pain all over the body. History of sickle cell disease with sickle cell crisis pain. Normal saline solution 1 L IV bolus. Morphine 4 mg IV. Zofran 4 mg IV. Benadryl 50 mg IV. Toradol 30 mg IV. Diagnosis Primary Impression: Sickle cell pain crisis Patient Instructions: General Instructions Additional Instructions: Continue with medications at home. Follow-up with personal physician. Return if worse. Med/Other Pt SpecificInfo: No Change to Meds Disposition: 01 DISCHARGE HOME Condition: Stable Christian Rubio MD Nov 02, 2017 03:33
[2017-11-02 03:43] VITALS: BP 141/79; PULSE 84; RESP 20; O2SAT 100
[2017-11-02 04:05] LABS: BASOPHIL # 0.1 TH/MM3 (0-0.2); BASOPHIL % 0.5 % (0.0-2.0); EOSINOPHIL # 0.6 TH/MM3 (0-0.4); EOSINOPHIL % 4.3 % (0.0-4.0); HEMATOCRIT 23.9 % (35.0-46.0); HEMOGLOBIN 8.2 GM/DL (11.6-15.3); LYMPH % 39.5 % (9.0-44.0); LYMPHOCYTE # 5.9 TH/MM3 (1.0-4.8); MEAN CELL VOLUME 83.7 FL (80.0-100.0); MEAN CORPUSCULAR HEMOGLOBIN 28.6 PG (27.0-34.0); MEAN CORPUSCULAR HGB CONC 34.1 % (32.0-36.0); MEAN PLATELET VOLUME 8.4 FL (7.0-11.0); MONO % 8.7 % (0.0-8.0); MONOCYTE # 1.3 TH/MM3 (0-0.9); PLATELET COUNT 605 TH/MM3 (150-450); RED BLOOD COUNT 2.86 MIL/MM3 (4.00-5.30); RETIC # 93.5 MIL/L (20.0-150.0); RETIC % 3.3 % (0.4-3.0); WHITE BLOOD COUNT 14.9 TH/MM3 (4.0-11.0)
[2017-11-02 04:40] LABS: BANDS 1 % (0-6); BASOPHILS 3 % (0-2); LYMPHOCYTES 33 % (9-44); MONOCYTES 12 % (0-8); POLYS (SEG NEUTROPHILS) 46 % (16-70)
[2017-11-02 04:45] LABS: ACANTHOCYTES OCC (NORMAL); TARGET CELLS 1+ (NORMAL)
[2017-11-02 04:46] LABS: HOWELL-JOLLY BODIES PRESENT (NONE SEEN)
[2017-11-02 04:48] LABS: POLYCHROMASIA 2.7 % (0.0-1.9)
== END 2017-11-02 05:00 | disposition home or self-care (01) ==
LOC: NEPE 02:17
DX: D57.00 Hb-SS disease with crisis, unspecified (principal); J45.909 Unspecified asthma, uncomplicated; Z86.2 Personal history of diseases of the blood and blood-forming organs and certain disorders involving the immune mechanism; Z86.59 Personal history of other mental and behavioral disorders; Z86.79 Personal history of other diseases of the circulatory system; Z86.69 Personal history of other diseases of the nervous system and sense organs
CPT/HCPCS: 85007; 85027; 85044; 96361; 96374; 96375; 99284; J1200; J1885; J2270; J2405; J7030

== ENCOUNTER 2017-11-09 02:11 | Emergency (ER) | payer MEDICAID ==
[~2017-11-09 02:11] MED LIST changes: -FOLI400T PO; -HYDR-3535 PO; -LISI-519 PO; -MACR100C2 PO
== END 2017-11-09 03:34 | disposition left against medical advice (07) ==
LOC: NED 02:11
DX: D57.1 Sickle-cell disease without crisis (principal); Z53.21 Procedure and treatment not carried out due to patient leaving prior to being seen by health care provider
CPT/HCPCS: 99281

== ENCOUNTER 2017-11-10 09:24 | Emergency (ER) | payer MEDICAID ==
[~2017-11-10] VITALS: Ht 165.1 cm; Wt 70.0 kg
[2017-11-10 09:25] VITALS: BP 142/78; PULSE 94; RESP 16; TEMP 97.1; O2SAT 100
[2017-11-10 10:32] VITALS: BP 152/81; PULSE 81; RESP 18; O2SAT 100
--- NOTE | 2017-11-10 11:28 | PD ---
HPI Chief Complaint: Sickle Cell Time Seen by Provider: 10:39 Travel History International Travel<30 days: No Contact w/Intl Traveler<30days: No Traveled to known affect area: No History of Present Illness HPI The patient was seen and examined in the presence of the nurse. At no point in time was I in the room without the nurse present. Patient complains of sickle pain. She says is diffuse hurting her all over her entire body. She is a frequent visitor for the same. She says she saw her field education coordinator recently but no change in management was recommended. Symptoms severity is described as moderate to severe but is looking quite mild. No alleviating factors. No exacerbating factors. Duration 2 days PFSH Past Medical History Anemia: Yes Arthritis: No Asthma: Yes Autoimmune Disease: No Blood Disorders: Yes Anxiety: Yes Depression: No Heart Rhythm Problems: No Cancer: No Cardiovascular Problems: Yes (CHF) High Cholesterol: No Chemotherapy: No Chest Pain: Yes Congestive Heart Failure: Yes COPD: No Cerebrovascular Accident: No Cystic Fibrosis: No Diabetes: No Diminished Hearing: No Endocrine: No Gastrointestinal Disorders: No GERD: No Glaucoma: No Genitourinary: No Headaches: Yes Hepatitis: No Hiatal Hernia: No Heparin Induced Thrombocytopen: No Hypertension: No Immune Disorder: No Implanted Vascular Access Dvce: Yes Kidney Stones: No Musculoskeletal: No Neurologic: Yes Psychiatric: Yes Reproductive: No Respiratory: Yes (asthma) Immunizations Current: Yes Migraines: Yes Myocardial Infarction: No Pneumonia: Yes Radiation Therapy: No Renal Failure: No Seizures: No Sickle Cell Disease: Yes Sleep Apnea: No Thyroid Disease: No Ulcer: No Influenza Vaccination: Yes PNEUMOCCOCAL Vaccine (Year): 1 ?: Unknown LMP: 10/29/17 : 1 Para: 1 Miscarriage: 0 : 0 Tubal Ligation: Yes Past Surgical History Abdominal Surgery: Yes (gall stones removed) AICD: No Appendectomy: No Arteriovenous Shunt: No Body Medical Devices: R Chest Infusaport (3RD) Cardiac Surgery: No Section: Yes (X 1) Cholecystectomy: Yes Ear Surgery: No Endocrine Surgery: No Eye Surgery: No Genitourinary Surgery: No Gynecologic Surgery: Yes (c section) Hysterectomy: No Insulin Pump: No Joint Replacement: No Neurologic Surgery: No Oral Surgery: No Pacemaker: No Thoracic Surgery: No Other Surgery: Yes (R port x 3 removed x 2) Social History Alcohol Use: Yes (occ) Tobacco Use: No Substance Use: No Allergies-Medications (Allergen,Severity, Reaction): Coded Allergies: acetaminophen (Verified Adverse Reaction, Intermediate, itching, 11/10/17) nausea/vomiting/itiching Not allergic to tylenol just the codeine part of percocet oxycodone (Verified Adverse Reaction, Intermediate, itching, 11/10/17) nausea/vomiting/itiching Not allergic to tylenol just the codeine part of percocet Reported Meds & Prescriptions Reported Meds & Active Scripts Active Hydrocodone-Acetamin 10-325 mg (Hydrocodone/Acetaminophen) 10 Mg-325 Mg Tablet 1 Tab PO Q6HR PRN Hydrea (Hydroxyurea) 500 Mg Cap 500 Mg PO DAILY Folic Acid 1 Mg Tablet 1 Mg PO DAILY 30 Days Reported Ambien (Zolpidem Tartrate) 5 Mg Tab 5 Mg PO HS PRN Proventil Hfa 6.7 GM Inh (Albuterol Sulfate) 90 Mcg/Act Aer 2 Puff INH Q6H PRN Review of Systems General / Constitutional: No: Fever Eyes: No: Visual changes HENT: No: Headaches Cardiovascular: No: Chest Pain or Discomfort Respiratory: No: Shortness of Breath Gastrointestinal: No: Abdominal Pain Genitourinary: No: Dysuria Musculoskeletal: Positive: Pain Skin: No Rash Neurologic: No: Weakness Psychiatric: No: Depression Endocrine: No: Polydipsia Hematologic/Lymphatic: No: Easy Bruising Physical Exam Narrative GENERAL: Well-nourished, well-developed patient in no apparent distress. SKIN: Focused skin assessment reveals no rash and nodules. Skin is Warm and dry. HEAD: Atraumatic. Normocephalic. EYES: Pupils equal and round. No scleral icterus. No injection or drainage. ENT: No nasal bleeding or discharge. Mucous membranes pink and moist. NECK: Trachea midline. No JVD. CARDIOVASCULAR: Regular rate and rhythm. No murmur appreciated. RESPIRATORY: No accessory muscle use. Clear to auscultation. Breath sounds equal bilaterally. GASTROINTESTINAL: Abdomen soft, non-tender, nondistended. Hepatic and splenic margins not palpable. MUSCULOSKELETAL: No obvious deformities. No clubbing. No cyanosis. No edema. NEUROLOGICAL: Awake and alert. No obvious cranial nerve deficits. Motor grossly within normal limits. Normal speech. PSYCHIATRIC: Appropriate mood and affect; insight and judgment normal. Data Data Last Documented VS Vital Signs Date Time Temp Pulse Resp B/P (MAP) Pulse Ox O2 Delivery O2 Flow Rate FiO2 11/10/17 10:32 81 18 152/81 (104) 100 Room Air 11/10/17 09:25 97.1 Orders Orders Complete Blood Count With Diff (11/10/17 11:21) Ondansetron Inj (Zofran Inj) (11/10/17 11:30) Morphine Inj (Morphine Inj) (11/10/17 11:30) Sodium Chlor 0.9% 1000 Ml Inj (Ns 1000 M (11/10/17 11:30) Heparin Central Flush (Heparin Central F (11/10/17 11:30) Labs Laboratory Tests Test 11/10/17 11:50 White Blood Count 16.0 TH/MM3 Red Blood Count 2.96 MIL/MM3 Hemoglobin 8.8 GM/DL Hematocrit 24.9 % Mean Corpuscular Volume 84.3 FL Mean Corpuscular Hemoglobin 29.6 PG Mean Corpuscular Hemoglobin Concent 35.1 % Red Cell Distribution Width 16.9 % Platelet Count 497 TH/MM3 Mean Platelet Volume 7.8 FL Neutrophils (%) (Auto) 75.4 % Lymphocytes (%) (Auto) 13.8 % Monocytes (%) (Auto) 6.6 % Eosinophils (%) (Auto) 2.5 % Basophils (%) (Auto) 1.7 % Neutrophils # (Auto) 12.1 TH/MM3 Lymphocytes # (Auto) 2.2 TH/MM3 Monocytes # (Auto) 1.0 TH/MM3 Eosinophils # (Auto) 0.4 TH/MM3 Basophils # (Auto) 0.3 TH/MM3 CBC Comment DIFF FINAL Differential Comment MDM Medical Decision Making Medical Screen Exam Complete: Yes Emergency Medical Condition: Yes Medical Record Reviewed: Yes Differential Diagnosis Sickle pain, malingering, narcotic seeking behavior, narcotic withdrawal Narrative Course I have reviewed the patient's electronic medical record. Patient is a very frequent visitor to the ER for sickle cell complaints seeking pain medicine. Most recent hemoglobin is 8.2 Her port is accessed and IV fluid and IV Zofran and IV morphine administered CBC shows hemoglobin of 8.8 On recheck she looks very comfortable Stable for outpatient follow-up Diagnosis Primary Impression: Sickle cell anemia with pain Additional Instructions: The patient was advised to follow up with their physician and return if they worsen. Med/Other Pt SpecificInfo: Other Disposition: 01 DISCHARGE HOME Condition: Stable Hermilo Ceja MD Nov 10, 2017 11:28
[2017-11-10] MEDS ORDERED: MORPHINE SULFATE 8 MG/ML INJ IV PUSH ONE (11:30)
[2017-11-10] MEDS ORDERED: ONDANSETRON HCL 4 MG/2 ML VIAL IVP ONE (11:30)
[2017-11-10] MEDS ORDERED: SODIUM CHLOR 0.9% 1000 ML INJ 1,000 ML IV ONE (11:30)
[2017-11-10 12:25] LABS: AUTOMATED NEUTROPHIL # 12.1 TH/MM3 (1.8-7.7); BASOPHIL # 0.3 TH/MM3 (0-0.2); BASOPHIL % 1.7 % (0.0-2.0); EOSINOPHIL # 0.4 TH/MM3 (0-0.4); EOSINOPHIL % 2.5 % (0.0-4.0); HEMATOCRIT 24.9 % (35.0-46.0); HEMOGLOBIN 8.8 GM/DL (11.6-15.3); LYMPH % 13.8 % (9.0-44.0); LYMPHOCYTE # 2.2 TH/MM3 (1.0-4.8); MEAN CELL VOLUME 84.3 FL (80.0-100.0); MEAN CORPUSCULAR HEMOGLOBIN 29.6 PG (27.0-34.0); MEAN CORPUSCULAR HGB CONC 35.1 % (32.0-36.0); MEAN PLATELET VOLUME 7.8 FL (7.0-11.0); MONO % 6.6 % (0.0-8.0); NEUT % 75.4 % (16.0-70.0); PLATELET COUNT 497 TH/MM3 (150-450); RED BLOOD COUNT 2.96 MIL/MM3 (4.00-5.30); RED CELL DISTRIBUTION WIDTH 16.9 % (11.6-17.2)
[2017-11-10 12:59] VITALS: BP 115/66
== END 2017-11-10 12:55 | disposition home or self-care (01) ==
LOC: NEPD 09:24
DX: D57.00 Hb-SS disease with crisis, unspecified (principal)
CPT/HCPCS: 85025; 96361; 96374; 96375; 99284; J1642; J2270; J2405; J7030

== ENCOUNTER 2017-11-16 10:49 | Emergency (ER) | payer MEDICAID ==
[2017-11-16 10:58] VITALS: BP 127/76; PULSE 99; RESP 18; TEMP 99.2; O2SAT 99
[2017-11-16 11:50] LABS: BASOPHIL # 0.2 TH/MM3 (0-0.2); BASOPHIL % 1.4 % (0.0-2.0); EOSINOPHIL # 0.4 TH/MM3 (0-0.4); EOSINOPHIL % 2.6 % (0.0-4.0); HEMATOCRIT 26.1 % (35.0-46.0); HEMOGLOBIN 8.8 GM/DL (11.6-15.3); LYMPH % 23.7 % (9.0-44.0); LYMPHOCYTE # 3.8 TH/MM3 (1.0-4.8); MEAN CORPUSCULAR HEMOGLOBIN 28.1 PG (27.0-34.0); MEAN CORPUSCULAR HGB CONC 33.9 % (32.0-36.0); MEAN PLATELET VOLUME 8.9 FL (7.0-11.0); MONO % 10.4 % (0.0-8.0); MONOCYTE # 1.7 TH/MM3 (0-0.9); NEUT % 61.9 % (16.0-70.0); PLATELET COUNT 409 TH/MM3 (150-450); RED BLOOD COUNT 3.14 MIL/MM3 (4.00-5.30); RED CELL DISTRIBUTION WIDTH 17.1 % (11.6-17.2); WHITE BLOOD COUNT 16.2 TH/MM3 (4.0-11.0)
--- NOTE | 2017-11-16 12:06 | RADRPT ---
EXAM DATE/TIME: 11/16/2017 12:00 [facility] COMPARISON: CHEST SINGLE AP, October 13, 2017, 11:46. INDICATIONS : Sickle cell crisis. MEDICAL HISTORY : Sickle Cell disease. Gastroesophageal reflux disease. Hypertension. SURGICAL HISTORY : Cholecystectomy. Tubal ligation. section. Infusaport. ENCOUNTER: Initial ACUITY: 1 day PAIN SCORE: 0/10 LOCATION: Bilateral chest FINDINGS: The heart is normal in size. The lungs are clear. [id number] is in excellent position. The visualized bony structures are grossly intact. CONCLUSION: 1. [id number] in excellent position. The lungs are clear. Rodger Diego MD on November 16, 2017 at 12:04 Board Certified Radiologist. This report was verified electronically.
[2017-11-16 12:11] LABS: BICARBONATE 22.6 MEQ/L (21.0-32.0); CALCIUM 8.9 MG/DL (8.5-10.1); CREATININE 0.7 MG/DL (0.50-1.00)
[2017-11-16 13:26] LABS: RETIC # 124.9 MIL/L (20.0-150.0); RETIC % 4.2 % (0.4-3.0)
--- NOTE | 2017-11-16 13:33 | PD ---
HPI Chief Complaint: Sickle Cell Time Seen by Provider: 10:58 Travel History International Travel<30 days: No Contact w/Intl Traveler<30days: No Traveled to known affect area: No History of Present Illness HPI 27-year-old female with history of sickle cell presents the emergency department for evaluation of pain 4 days. She believes she is in sickle cell crisis. She reports generalized achiness pain. She has not been recently ill. No fever or chills. No chest pain or tightness. No difficulty breathing. No other symptoms to report. PFSH Past Medical History Anemia: Yes Arthritis: No Asthma: Yes Autoimmune Disease: No Blood Disorders: Yes Anxiety: Yes Depression: No Heart Rhythm Problems: No Cancer: No Cardiovascular Problems: Yes (CHF) High Cholesterol: No Chemotherapy: No Chest Pain: Yes Congestive Heart Failure: Yes COPD: No Cerebrovascular Accident: No Cystic Fibrosis: No Diabetes: No Diminished Hearing: No Endocrine: No Gastrointestinal Disorders: No GERD: No Glaucoma: No Genitourinary: No Headaches: Yes Hepatitis: No Hiatal Hernia: No Heparin Induced Thrombocytopen: No Hypertension: No Immune Disorder: No Implanted Vascular Access Dvce: Yes Kidney Stones: No Musculoskeletal: No Neurologic: Yes Psychiatric: Yes Reproductive: No Respiratory: Yes (ASTHMA) Immunizations Current: Yes Migraines: Yes Myocardial Infarction: No Pneumonia: Yes Radiation Therapy: No Renal Failure: No Seizures: No Sickle Cell Disease: Yes Sleep Apnea: No Thyroid Disease: No Ulcer: No PNEUMOCCOCAL Vaccine (Year): 1 ?: Not LMP: 10/29/2017 : 1 Para: 1 Miscarriage: 0 : 0 Tubal Ligation: Yes Past Surgical History Abdominal Surgery: Yes (gall stones removed) AICD: No Appendectomy: No Arteriovenous Shunt: No Body Medical Devices: R Chest Infusaport (3RD) Cardiac Surgery: No Section: Yes (X 1) Cholecystectomy: Yes Ear Surgery: No Endocrine Surgery: No Eye Surgery: No Genitourinary Surgery: No Gynecologic Surgery: Yes (c section) Hysterectomy: No Insulin Pump: No Joint Replacement: No Neurologic Surgery: No Oral Surgery: No Pacemaker: No Thoracic Surgery: No Other Surgery: Yes (R port x 3 removed x 2) Social History Alcohol Use: Yes (occ) Tobacco Use: No Substance Use: No Allergies-Medications (Allergen,Severity, Reaction): Coded Allergies: acetaminophen (Verified Adverse Reaction, Intermediate, itching, 3/13/18) nausea/vomiting/itiching Not allergic to tylenol just the codeine part of percocet oxycodone (Verified Adverse Reaction, Intermediate, itching, 11/10/17) nausea/vomiting/itiching Not allergic to tylenol just the codeine part of percocet Reported Meds & Prescriptions Reported Meds & Active Scripts Active Hydrocodone-Acetamin 10-325 mg (Hydrocodone/Acetaminophen) 10 Mg-325 Mg Tablet 1 Tab PO Q6HR PRN Hydrea (Hydroxyurea) 500 Mg Cap 500 Mg PO DAILY Folic Acid 1 Mg Tablet 1 Mg PO DAILY 30 Days Reported Ambien (Zolpidem Tartrate) 5 Mg Tab 5 Mg PO HS PRN Proventil Hfa 6.7 GM Inh (Albuterol Sulfate) 90 Mcg/Act Aer 2 Puff INH Q6H PRN Review of Systems Except as stated in HPI: all other systems reviewed are Neg Physical Exam Narrative Well-nourished female patient. She is ambulatory. She appears nontoxic. She has even respirations. She has regular heart rate. She moves all extremities. She communicates with me clearly. Data Data Last Documented VS Vital Signs Date Time Temp Pulse Resp B/P (MAP) Pulse Ox O2 Delivery O2 Flow Rate FiO2 11/16/17 10:58 99.2 99 18 127/76 (93) 99 Orders Orders Complete Blood Count With Diff (11/16/17 11:00) Basic Metabolic Panel (Bmp) (11/16/17 11:00) Retic Count (11/16/17 11:00) Chest, Pa & Lat (11/16/17 ) Labs Laboratory Tests Test 11/16/17 11:18 White Blood Count 16.2 TH/MM3 Red Blood Count 3.14 MIL/MM3 Hemoglobin 8.8 GM/DL Hematocrit 26.1 % Mean Corpuscular Volume 83.0 FL Mean Corpuscular Hemoglobin 28.1 PG Mean Corpuscular Hemoglobin Concent 33.9 % Red Cell Distribution Width 17.1 % Platelet Count 409 TH/MM3 Mean Platelet Volume 8.9 FL Neutrophils (%) (Auto) 61.9 % Lymphocytes (%) (Auto) 23.7 % Monocytes (%) (Auto) 10.4 % Eosinophils (%) (Auto) 2.6 % Basophils (%) (Auto) 1.4 % Neutrophils # (Auto) 10.0 TH/MM3 Lymphocytes # (Auto) 3.8 TH/MM3 Monocytes # (Auto) 1.7 TH/MM3 Eosinophils # (Auto) 0.4 TH/MM3 Basophils # (Auto) 0.2 TH/MM3 CBC Comment DIFF FINAL Differential Comment Reticulocyte Count 4.2 % Absolute Reticulocyte Count 124.9 MIL/L Blood Urea Nitrogen 5 MG/DL Creatinine 0.70 MG/DL Random Glucose 86 MG/DL Calcium Level 8.9 MG/DL Sodium Level 140 MEQ/L Potassium Level 3.7 MEQ/L Chloride Level 107 MEQ/L Carbon Dioxide Level 22.6 MEQ/L Anion Gap 10 MEQ/L Estimat Glomerular Filtration Rate 121 ML/MIN MDM Medical Decision Making Medical Screen Exam Complete: Yes Emergency Medical Condition: Yes Medical Record Reviewed: Yes Differential Diagnosis Sickle cell trait versus sickle cell crisis versus sickle cell anemia versus chronic pain versus narcotic seeking Narrative Course 19-year-old female presents emergency department for evaluation of generalized pain. She believes she is in sickle cell crisis. Patient appears well. Workup is initiated in triage. Prior to bed placement, patient chooses to leave. AMA: The risks of leaving against medical advice without further evaluation treatment were discussed with the patient. These risks include cardiac dysfunction, cardiac dysrhythmia, possible heart attack, possible stroke or . The patient indicated understanding of these risks and appeared to have the capacity to make this decision. Diagnosis Primary Impression: Sickle cell anemia Disposition: 07 AGAINST MEDICAL ADVICE Condition: Stable Yusra BlockP Nov 16, 2017 13:33
== END 2017-11-16 13:02 | disposition left against medical advice (07) ==
LOC: NED 10:49
DX: D57.1 Sickle-cell disease without crisis (principal); R52 Pain, unspecified; D64.9 Anemia, unspecified; J45.909 Unspecified asthma, uncomplicated; F41.9 Anxiety disorder, unspecified; I50.9 Heart failure, unspecified; Z88.6 Allergy status to analgesic agent; Z88.5 Allergy status to narcotic agent; Z79.899 Other long term (current) drug therapy
CPT/HCPCS: 71046; 80048; 85025; 85044; 99284

== ENCOUNTER 2017-11-22 11:58 | Inpatient (IN) | payer MEDICAID ==
[~2017-11-22] VITALS: Ht 170.2 cm; Wt 72.2 kg
[2017-11-22 12:03] VITALS: BP 119/59; PULSE 98; RESP 18; TEMP 99; O2SAT 99
[2017-11-22] MEDS ORDERED: SODIUM CHLOR 0.9% 1000 ML INJ 1,000 ML IV ONE (13:03)
--- NOTE | 2017-11-22 13:06 | PD ---
HPI Chief Complaint: Sickle Cell Time Seen by Provider: 13:03 Travel History International Travel<30 days: No Contact w/Intl Traveler<30days: No Traveled to known affect area: No History of Present Illness HPI 27-year-old female patient with history of sickle cell disease, asthma, presents to the ER today for several days history of back pains, arm pains, leg pains, feels like she is having sickle cell crisis. She also states she has been having some shortness of breath as well, thinks it is her asthma. She denies any fevers, vomiting, or any other symptoms. She has been trying to self treat with Lortab tens which she has at home but she states is not improving. Her current pain is a 9 out of 10. Modifying Factors: None Associated Signs & Symptoms: Sickle cell crisis, shortness of breath Risk Factors: Sickle cell disease, asthma PFSH Past Medical History Anemia: Yes Arthritis: No Asthma: Yes Autoimmune Disease: No Blood Disorders: Yes Anxiety: Yes Depression: No Heart Rhythm Problems: No Cancer: No Cardiovascular Problems: Yes (CHF) High Cholesterol: No Chemotherapy: No Chest Pain: Yes Congestive Heart Failure: Yes COPD: No Cerebrovascular Accident: No Cystic Fibrosis: No Diabetes: No Diminished Hearing: No Endocrine: No Gastrointestinal Disorders: No GERD: No Glaucoma: No Genitourinary: No Headaches: Yes Hepatitis: No Hiatal Hernia: No Heparin Induced Thrombocytopen: No Hypertension: No Immune Disorder: No Implanted Vascular Access Dvce: Yes Kidney Stones: No Musculoskeletal: No Neurologic: Yes Psychiatric: Yes Reproductive: No Respiratory: Yes (ASTHMA) Immunizations Current: Yes Migraines: Yes Myocardial Infarction: No Pneumonia: Yes Radiation Therapy: No Renal Failure: No Seizures: No Sickle Cell Disease: Yes Sleep Apnea: No Thyroid Disease: No Ulcer: No Tetanus Vaccination: > 5 Years Influenza Vaccination: Yes PNEUMOCCOCAL Vaccine (Year): 1 ?: Not LMP: 10/29/17 : 1 Para: 1 Miscarriage: 0 : 0 Tubal Ligation: Yes Past Surgical History Abdominal Surgery: Yes (gall stones removed) AICD: No Appendectomy: No Arteriovenous Shunt: No Body Medical Devices: R Chest Infusaport (3RD) Cardiac Surgery: No Section: Yes (X 1) Cholecystectomy: Yes Ear Surgery: No Endocrine Surgery: No Eye Surgery: No Genitourinary Surgery: No Gynecologic Surgery: Yes (c section) Hysterectomy: No Insulin Pump: No Joint Replacement: No Neurologic Surgery: No Oral Surgery: No Pacemaker: No Thoracic Surgery: No Other Surgery: Yes (R port x 3 removed x 2) Social History Alcohol Use: Yes (occ) Tobacco Use: No Substance Use: No Allergies-Medications (Allergen,Severity, Reaction): Coded Allergies: acetaminophen (Verified Allergy, Intermediate, itching, 11/22/17) oxycodone (Verified Allergy, Intermediate, itching, 11/22/17) Reported Meds & Prescriptions Reported Meds & Active Scripts Active Hydrocodone-Acetamin 10-325 mg (Hydrocodone/Acetaminophen) 10 Mg-325 Mg Tablet 1 Tab PO Q6HR PRN Hydrea (Hydroxyurea) 500 Mg Cap 500 Mg PO DAILY Folic Acid 1 Mg Tablet 1 Mg PO DAILY 30 Days Reported Ambien (Zolpidem Tartrate) 5 Mg Tab 5 Mg PO HS PRN Proventil Hfa 6.7 GM Inh (Albuterol Sulfate) 90 Mcg/Act Aer 2 Puff INH Q6H PRN Review of Systems Except as stated in HPI: all other systems reviewed are Neg Physical Exam Narrative GENERAL: Well-developed young -Citizen Of [place] female patient currently in mild distress. Awake and oriented 3. SKIN: Focused skin assessment warm/dry. HEAD: Atraumatic. Normocephalic. EYES: Pupils equal and round. No scleral icterus. No injection or drainage. ENT: No nasal bleeding or discharge. Mucous membranes pink and moist. NECK: Trachea midline. No JVD. Supple. CARDIOVASCULAR: Regular rate and rhythm. No murmur appreciated. RESPIRATORY: No accessory muscle use. Clear to auscultation. Breath sounds equal bilaterally. GASTROINTESTINAL: Abdomen soft, non-tender, nondistended. Hepatic and splenic margins not palpable. MUSCULOSKELETAL: No obvious deformities. No clubbing. No cyanosis. No edema. NEUROLOGICAL: Awake and alert. No obvious cranial nerve deficits. Motor grossly within normal limits. Normal speech. PSYCHIATRIC: Appropriate mood and affect; insight and judgment normal. Data Data Last Documented VS Vital Signs Date Time Temp Pulse Resp B/P (MAP) Pulse Ox O2 Delivery O2 Flow Rate FiO2 11/22/17 13:17 17 98 Room Air 11/22/17 12:56 89 11/22/17 12:03 99.0 119/59 (79) Orders Orders C-Reactive Protein (Crp) (11/22/17 13:03) Complete Blood Count With Diff (11/22/17 13:03) Comprehensive Metabolic Panel (11/22/17 13:03) Retic Count (11/22/17 13:03) Urinalysis - C+S If Indicated (11/22/17 13:03) Blood Culture (11/22/17 13:03) Chest, Single Ap (11/22/17 13:03) Ecg Monitoring (11/22/17 13:03) Iv Access Insert/Monitor (11/22/17 13:03) Oximetry (11/22/17 13:03) Ondansetron Inj (Zofran Inj) (11/22/17 13:15) Sodium Chloride 0.9% Flush (Ns Flush) (11/22/17 13:15) Sodium Chlor 0.9% 1000 Ml Inj (Ns 1000 M (11/22/17 13:03) Hydromorphone Pf Inj (Dilaudid Pf Inj) (11/22/17 13:15) Albuterol Neb (Albuterol Neb) (11/22/17 13:15) Hydromorphone Pf Inj (Dilaudid Pf Inj) (11/22/17 13:13) Diphenhydramine (Benadryl) (11/22/17 13:30) Hydromorphone Pf Inj (Dilaudid Pf Inj) (11/22/17 14:15) Hydromorphone Pf Inj (Dilaudid Pf Inj) (11/22/17 14:24) Labs Laboratory Tests Test 11/22/17 13:20 White Blood Count 15.3 TH/MM3 Red Blood Count 2.64 MIL/MM3 Hemoglobin 7.5 GM/DL Hematocrit 21.6 % Mean Corpuscular Volume 82.1 FL Mean Corpuscular Hemoglobin 28.4 PG Mean Corpuscular Hemoglobin Concent 34.6 % Red Cell Distribution Width 17.0 % Platelet Count 427 TH/MM3 Mean Platelet Volume 8.0 FL Neutrophils (%) (Auto) 61.5 % Lymphocytes (%) (Auto) 20.4 % Monocytes (%) (Auto) 12.7 % Eosinophils (%) (Auto) 2.4 % Basophils (%) (Auto) 3.0 % Neutrophils # (Auto) 9.5 TH/MM3 Lymphocytes # (Auto) 3.1 TH/MM3 Monocytes # (Auto) 1.9 TH/MM3 Eosinophils # (Auto) 0.4 TH/MM3 Basophils # (Auto) 0.5 TH/MM3 CBC Comment AUTO DIFF Reticulocyte Count 5.0 % Absolute Reticulocyte Count 131.7 MIL/L Urine Color YELLOW Urine Turbidity HAZY Urine pH 6.5 Urine Specific [place] 1.015 Urine Protein TRACE mg/dL Urine Glucose (UA) NEG mg/dL Urine Ketones NEG mg/dL Urine Occult Blood NEG Urine Nitrite NEG Urine Bilirubin NEG Urine Urobilinogen 2.0 MG/DL Urine Leukocyte Esterase TRACE Urine RBC 1 /hpf Urine WBC 2 /hpf Urine Squamous Epithelial Cells 11 /hpf Urine Transitional Epithelial Cells <1 /hpf Urine Bacteria RARE /hpf Urine Hyaline Casts 3 /lpf Urine Mucus FEW /lpf Microscopic Urinalysis Comment CULT NOT INDICATED Blood Urea Nitrogen 7 MG/DL Creatinine 0.65 MG/DL Random Glucose 109 MG/DL Total Protein 8.1 GM/DL Albumin 4.0 GM/DL Calcium Level 8.8 MG/DL Alkaline Phosphatase 66 U/L Aspartate Amino Transf (AST/SGOT) 32 U/L Alanine Aminotransferase (ALT/SGPT) 10 U/L Total Bilirubin 1.6 MG/DL Sodium Level 140 MEQ/L Potassium Level 3.6 MEQ/L Chloride Level 108 MEQ/L Carbon Dioxide Level 23.9 MEQ/L Anion Gap 8 MEQ/L Estimat Glomerular Filtration Rate 131 ML/MIN C-Reactive Protein LESS THAN 0.29 MG/DL MDM Medical Decision Making Medical Screen Exam Complete: Yes Emergency Medical Condition: Yes Medical Record Reviewed: Yes Interpretation(s) Laboratory Tests Test 11/22/17 13:20 White Blood Count 15.3 TH/MM3 (4.0-11.0) Red Blood Count 2.64 MIL/MM3 (4.00-5.30) Hemoglobin 7.5 GM/DL (11.6-15.3) Hematocrit 21.6 % (35.0-46.0) Monocytes (%) (Auto) 12.7 % (0.0-8.0) Basophils (%) (Auto) 3.0 % (0.0-2.0) Neutrophils # (Auto) 9.5 TH/MM3 (1.8-7.7) Monocytes # (Auto) 1.9 TH/MM3 (0-0.9) Basophils # (Auto) 0.5 TH/MM3 (0-0.2) Reticulocyte Count 5.0 % (0.4-3.0) Urine Turbidity HAZY (CLEAR) Urine Leukocyte Esterase TRACE (NEG) Urine Bacteria RARE /hpf (NONE) Urine Mucus FEW /lpf (OCC) Random Glucose 109 MG/DL (74-106) Total Bilirubin 1.6 MG/DL (0.2-1.0) Chloride Level 108 MEQ/L (98-107) Differential Diagnosis Sickle cell crisis versus dehydration versus metabolic issues versus asthma exacerbation versus symptomatic anemia versus pneumonia Narrative Course Chest x-ray did not show any signs of acute pulmonary processes. Saturations are within normal limits. Patient was given a nebulizer due to her asthma history. IV fluids, pain medications and Zofran was given in the ER. Lab work shows some leukocytosis and anemia which is at this chronic for this sickle cell patient. Her reticulocyte count was mildly elevated. C-reactive protein was unremarkable. At this point, I have discussed findings with the patient and reevaluated her, she had been given a second dose of Dilaudid for pain as well, and at this point she states that she is feeling poorly does not think that outpatient therapy is working for her. She is admitted for pain control. Case has been discussed with Dr. Golden for admission. Diagnosis Primary Impression: Acute sickle cell crisis Admitting Information Admitting Physician Requests: Admit Sandrita Anderson MD Nov 22, 2017 13:06
[2017-11-22] MEDS ORDERED: HYDROmorphone HCL PF 2 MG/ML VIAL ONE ×3 (13:13→17:17)
[2017-11-22] MEDS ORDERED: RESP: ALBUTEROL 2.5 MG/3 ML NEB (SCH) INH ONE (13:15)
[2017-11-22] MEDS ORDERED: HYDROmorphone HCL PF 1 MG/ML VIAL IVS ONE (13:15)
[2017-11-22] MEDS ORDERED: ONDANSETRON HCL 4 MG/2 ML VIAL IVP ONE (13:15)
[2017-11-22] MEDS ORDERED: SODIUM CHLORIDE 0.9% FLUSH 10 ML FLUSH IVF PRN (13:15)
[2017-11-22 13:17] VITALS: RESP 17; O2SAT 98
[2017-11-22] MEDS ORDERED: diphenhydrAMINE HCL 25 MG CAP PO ONE (13:30)
--- NOTE | 2017-11-22 13:41 | RADRPT ---
EXAM DATE/TIME: 11/22/2017 13:23 [facility] COMPARISON: CHEST PA & LAT, November 16, 2017, 12:00. CHEST SINGLE AP, October 13, 2017, 11:46. INDICATIONS : Shortness of breath, sickle cell crisis, and chest pain. MEDICAL HISTORY : Congestive heart failure. Sickle Cell disease. Gastroesophageal reflux disease. Hypertension. SURGICAL HISTORY : Cholecystectomy. Tubal ligation. section. Infusaport. ENCOUNTER: Initial ACUITY: 1 day PAIN SCORE: 3/10 LOCATION: Bilateral chest FINDINGS: There is a right-sided CT compatible [id number] in place. The heart size is normal for an AP image . The lungs are clear. There is elevation of the hemidiaphragms. This appearance is unchanged. There is a clip seen in the right upper quadrant of the abdomen. CONCLUSION: No acute disease. Ernst Barry MD on November 22, 2017 at 13:35 Board Certified Radiologist. This report was verified electronically.
[2017-11-22 14:02] LABS: BACTERIA, URINE RARE /hpf; BILIRUBIN, URINE NEG (NEG); BLOOD, URINE NEG (NEG); GLUCOSE,URINE NEG (NEG); HYALINE CAST, URINE 3 /lpf (RARE); KETONE, URINE NEG (NEG); MUCUS URINE FEW /lpf (OCC); NITRITE,URINE NEG (NEG); PH, URINE 6.5 (5.0-8.5); SQUAMOUS EPITHELIAL CELL URINE 11 /hpf (0-5); TRANSITIONAL EPI CELLS, URINE <1 /hpf; URINE COLOR YELLOW (YELLW/STRAW); URINE LEUKOCYTE ESTERASE TRACE (NEG)
[2017-11-22 14:08] LABS: AUTOMATED NEUTROPHIL # 9.5 TH/MM3 (1.8-7.7); BASOPHIL # 0.5 TH/MM3 (0-0.2); EOSINOPHIL # 0.4 TH/MM3 (0-0.4); EOSINOPHIL % 2.4 % (0.0-4.0); HEMATOCRIT 21.6 % (35.0-46.0); HEMOGLOBIN 7.5 GM/DL (11.6-15.3); LYMPH % 20.4 % (9.0-44.0); LYMPHOCYTE # 3.1 TH/MM3 (1.0-4.8); MEAN CELL VOLUME 82.1 FL (80.0-100.0); MEAN CORPUSCULAR HEMOGLOBIN 28.4 PG (27.0-34.0); MEAN CORPUSCULAR HGB CONC 34.6 % (32.0-36.0); MONO % 12.7 % (0.0-8.0); MONOCYTE # 1.9 TH/MM3 (0-0.9); NEUT % 61.5 % (16.0-70.0); PLATELET COUNT 427 TH/MM3 (150-450); RED BLOOD COUNT 2.64 MIL/MM3 (4.00-5.30); RETIC # 131.7 MIL/L (20.0-150.0); WHITE BLOOD COUNT 15.3 TH/MM3 (4.0-11.0)
[2017-11-22] MEDS ORDERED: HYDROmorphone HCL PF 1 MG/ML VIAL IV PUSH ONE (14:15)
[2017-11-22 14:24] LABS: AST (GOT) 32 U/L (15-37); BICARBONATE 23.9 MEQ/L (21.0-32.0); BLOOD UREA NITROGEN 7 MG/DL (7-18); CALCIUM 8.8 MG/DL (8.5-10.1); CHLORIDE 108 MEQ/L (98-107); CREATININE 0.65 MG/DL (0.50-1.00); GLOMERULAR FILTRATION RATE 131 ML/MIN (>89); GLUCOSE,RANDOM 109 MG/DL (74-106); SODIUM (NA) 140 MEQ/L (136-145)
[2017-11-22 14:28] LABS: ALKALINE PHOSPHATASE 66 U/L (45-117); ALT (GPT) 10 U/L (10-53); C-REACTIVE PROTEIN LESS THAN 0.29 MG/DL (0.00-0.30); TOTAL BILIRUBIN ADULT 1.6 MG/DL (0.2-1.0); TOTAL PROTEIN 8.1 GM/DL (6.4-8.2)
[2017-11-22] MEDS ORDERED: MAGNESIUM HYDROXIDE SUSP 30 ML CUP PO PRN (15:00)
[2017-11-22] MEDS ORDERED: NALOXONE HCL 0.4 MG/ML AMP IV PUSH PRN (15:00)
[2017-11-22] MEDS ORDERED: SODIUM CHLORIDE 0.9% FLUSH 10 ML FLUSH IV FLUSH PRN (15:00)
[2017-11-22] MEDS ORDERED: ONDANSETRON HCL 4 MG/2 ML VIAL IVP PRN (15:00)
[2017-11-22] MEDS ORDERED: HYDROmorphone HCL PF 1 MG/ML VIAL IV PUSH PRN ×2 (15:00)
[2017-11-22 15:13] LABS: BASOPHILS 1 % (0-2); CORRECTED NUCLEATED RBC 2 /100 WBC (0-0); LYMPHOCYTES 27 % (9-44); MONOCYTES 8 % (0-8); MYELOCYTES 1 % (0-0); NEUTROPHIL # MANUAL DIFF 9.6 TH/MM3 (1.8-7.7); NUCLEATED RED BLOOD CELL 2 (0-0); OVALOCYTES 1+ (NORMAL); POLYS (SEG NEUTROPHILS) 62 % (16-70)
[2017-11-22 15:14] LABS: HOWELL-JOLLY BODIES PRESENT (NONE SEEN); KERATOCYTES 1+ (NORMAL); TARGET CELLS 2+ (NORMAL)
[2017-11-22] MEDS: SODIUM CHLOR 0.9% 1000 ML INJ 1,000 ML IV SCH ×2 (15:44→23:13)
[2017-11-22] MEDS ORDERED: diphenhydrAMINE HCL 50 MG/ML VIAL IM PRN (17:30)
--- NOTE | 2017-11-22 17:43 | HHI.HP ---
[facility] Service [facility] Hospitalists Primary Care Physician Non-Staff Admission Diagnosis Sickle cell crisis Diagnoses: Travel History International Travel<30 Days: No Contact w/Intl Traveler <30 Da: No Traveled to Known Affected Are: No History of Present Illness Mrs. Frazier is a 27 year old female. She has been having a gradual onset of a sickle cell crisis episode. Today her percocet at home is not holding her pain so she came in for evaluation. Pain level is a 10. Her Hgb level is 7.5. She will typically have a sickle cell crisis every 6 weeks on average. At baseline she transfuses at 7.0 or less. She also reports that she gets itching with IV Dilaudid but this is what is controlling her pain right now. Typically she takes Benadryl with IV Dilaudid dosing. No respiratory distress or chest pain. Her primary pain right now is in her joints. Pain control and IV hydration or her staple and have provided her benefit in the past. She has required transfusions in the past. Review of Systems Constitutional: DENIES: Fatigue, Fever, Chills Eyes: DENIES: Diplopia, Eye inflammation, Eye pain Ears, nose, mouth, throat: DENIES: Hearing loss, Vertigo, Nasal discharge Respiratory: DENIES: Cough, Wheezing, Shortness of breath Cardiovascular: DENIES: Chest pain, Palpitations, Syncope Gastrointestinal: DENIES: Abdominal pain, Black stools, Bloody stools Musculoskeletal: COMPLAINS OF: Joint pain, Muscle aches, Stiffness, Joint Swelling, Back pain, Neck pain Integumentary: DENIES: Abnormal pigmentation, Pruritus, Rash, Nail changes Hematologic/lymphatic: DENIES: Bruising, Lymphadenopathy Immunologic/allergic: DENIES: Eczema, Urticaria Neurologic: DENIES: Abnormal gait, Headache, Paresthesias Psychiatric: DENIES: Anxiety, Confusion, Hallucinations Past Family Social History Past Medical History Anemia Asthma Sickle cell disease Anxiety History of angina Congestive heart failure history Migraine headaches Past Surgical History Cholecystectomy Right chest [id number] (removed) Reported Medications Reported Meds & Active Scripts Active Hydrocodone-Acetamin 10-325 mg (Hydrocodone/Acetaminophen) 10 Mg-325 Mg Tablet 1 Tab PO Q6HR PRN Hydrea (Hydroxyurea) 500 Mg Cap 500 Mg PO DAILY Folic Acid 1 Mg Tablet 1 Mg PO DAILY 30 Days Reported Ambien (Zolpidem Tartrate) 5 Mg Tab 5 Mg PO HS PRN Proventil Hfa 6.7 GM Inh (Albuterol Sulfate) 90 Mcg/Act Aer 2 Puff INH Q6H PRN Allergies: Coded Allergies: acetaminophen (Verified Allergy, Intermediate, itching, 11/22/17) oxycodone (Verified Allergy, Intermediate, itching, 11/22/17) Active Ordered Medications Administered Medications Medications (Trade) Dose Ordered Sig/Pavel Route PRN Reason Start Time Stop Time Status Last Admin Dose Admin Sodium Chloride (NS Flush) 2 ml UNSCH PRN IVF FLUSH AFTER USING IV ACCESS 11/22/17 13:15 11/22/17 13:21 Sodium Chloride 1,000 ml @ 125 mls/hr Q8H IV 11/22/17 14:58 11/22/17 15:44 Hydromorphone HCl (Dilaudid Pf Inj) 1 mg Q3H PRN IV PUSH Pain 6-10;if unable to take PO 11/22/17 15:00 11/22/17 17:20 Family History Diabetes mellitus type 2 in patient's father Diabetes mellitus type 2 in breast cancer in patient's mother. Social History No smoking, no illicit drug abuse, occasional alcohol use Physical Exam Vital Signs Vital Signs Date Time Temp Pulse Resp B/P (MAP) Pulse Ox O2 Delivery O2 Flow Rate FiO2 11/22/17 13:17 17 98 Room Air 11/22/17 12:56 89 17 99 Room Air 11/22/17 12:03 99.0 98 18 119/59 (79) 99 Physical Exam GENERAL: NAD, A&Ox3, diffuse tremor, diffuse joint pains HEAD: Normocephalic. NECK: Supple, trachea midline. No lymphadenopathy. EYES: No scleral icterus. No injection or drainage. CARDIOVASCULAR: Regular rate and rhythm without murmurs, gallops, or rubs. RESPIRATORY: Breath sounds equal bilaterally. No accessory muscle use. GASTROINTESTINAL: Abdomen soft, non-tender, nondistended. MUSCULOSKELETAL: No cyanosis, or edema. Diffuse joint pains and tenderness SKIN: Warm and dry. NEURO: No focal neurological deficitis. Laboratory Laboratory Tests Test 11/22/17 13:20 White Blood Count 15.3 Red Blood Count 2.64 Hemoglobin 7.5 Hematocrit 21.6 Mean Corpuscular Volume 82.1 Mean Corpuscular Hemoglobin 28.4 Mean Corpuscular Hemoglobin Concent 34.6 Red Cell Distribution Width 17.0 Platelet Count 427 Mean Platelet Volume 8.0 Neutrophils (%) (Auto) 61.5 Lymphocytes (%) (Auto) 20.4 Monocytes (%) (Auto) 12.7 Eosinophils (%) (Auto) 2.4 Basophils (%) (Auto) 3.0 Neutrophils # (Auto) 9.5 Lymphocytes # (Auto) 3.1 Monocytes # (Auto) 1.9 Eosinophils # (Auto) 0.4 Basophils # (Auto) 0.5 CBC Comment AUTO DIFF Differential Total Cells Counted 100 Neutrophils % (Manual) 62 Lymphocytes % 27 Monocytes % 8 Eosinophils % 1 Basophils % 1 Neutrophils # (Manual) 9.6 Myelocytes 1 Nucleated Red Blood Cells 2 Differential Comment FINAL DIFF MANUAL Platelet Estimate HIGH Platelet Morphology Comment NORMAL Target Cells 2+ Ovalocytes 1+ [place] Bodies PRESENT Keratocytes 1+ Reticulocyte Count 5.0 Absolute Reticulocyte Count 131.7 Urine Color YELLOW Urine Turbidity HAZY Urine pH 6.5 Urine Specific [place] 1.015 Urine Protein TRACE Urine Glucose (UA) NEG Urine Ketones NEG Urine Occult Blood NEG Urine Nitrite NEG Urine Bilirubin NEG Urine Urobilinogen 2.0 Urine Leukocyte Esterase TRACE Urine RBC 1 Urine WBC 2 Urine Squamous Epithelial Cells 11 Urine Transitional Epithelial Cells <1 Urine Bacteria RARE Urine Hyaline Casts 3 Urine Mucus FEW Microscopic Urinalysis Comment CULT NOT INDICATED Blood Urea Nitrogen 7 Creatinine 0.65 Random Glucose 109 Total Protein 8.1 Albumin 4.0 Calcium Level 8.8 Alkaline Phosphatase 66 Aspartate Amino Transf (AST/SGOT) 32 Alanine Aminotransferase (ALT/SGPT) 10 Total Bilirubin 1.6 Sodium Level 140 Potassium Level 3.6 Chloride Level 108 Carbon Dioxide Level 23.9 Anion Gap 8 Estimat Glomerular Filtration Rate 131 C-Reactive Protein LESS THAN 0.29 Date/Time Source Procedure Growth Status 11/22/17 13:35 Blood Peripheral Aerobic Blood Culture Pending Received 11/22/17 13:35 Blood Peripheral Anaerobic Blood Culture Pending Received Result Diagram: 11/22/17 1320 11/22/17 1320 Caprini VTE Risk Assessment Caprini VTE Risk Assessment: No/Low Risk (score <= 1) Caprini Risk Assessment Model Point Value = 1 Point Value = 2 Point Value = 3 Point Value = 5 Age 41-60 Minor surgery BMI > 25 kg/m2 Swollen legs Varicose veins or History of unexplained or recurrent spontaneous Oral contraceptives or hormone replacement Sepsis (< 1 month) Serious lung disease, including pneumonia (< 1 month) Abnormal pulmonary function Acute myocardial infarction Congestive heart failure (< 1 month) History of inflammatory bowel disease Medical patient at bed rest Age 61-74 Arthroscopic surgery Major open surgery (> 45 min) Laparoscopic surgery (> 45 min) Malignancy Confined to bed (> 72 hours) Immobilizing plaster cast Central venous access Age >= 75 History of VTE Family history of VTE Factor V Leiden Prothrombin [id number] Lupus anticoagulant Anticardiolipin antibodies Elevated serum homocysteine Heparin-induced thrombocytopenia Other congenital or acquired thrombophilia Stroke (< 1 month) Elective arthroplasty Hip, pelvis, or leg fracture Acute spinal cord injury (< 1 month) Prophylaxis Regimen Total Risk Factor Score Risk Level Prophylaxis Regimen 0-1 Low Early ambulation 2 Moderate Order ONE of the following: *Sequential Compression Device (SCD) *Heparin 5000 units SQ BID 3-4 Higher Order ONE of the following medications: *Heparin 5000 units SQ TID *Enoxaparin/Lovenox 40 mg SQ daily (WT < 150 kg, CrCl > 30 mL/min) *Enoxaparin/Lovenox 30 mg SQ daily (WT < 150 kg, CrCl > 10-29 mL/min) *Enoxaparin/Lovenox 30 mg SQ BID (WT < 150 kg, CrCl > 30 mL/min) AND/OR *Sequential Compression Device (SCD) 5 or more Highest Order ONE of the following medications: *Heparin 5000 units SQ TID (Preferred with Epidurals) *Enoxaparin/Lovenox 40 mg SQ daily (WT < 150 kg, CrCl > 30 mL/min) *Enoxaparin/Lovenox 30 mg SQ daily (WT < 150 kg, CrCl > 10-29 mL/min) *Enoxaparin/Lovenox 30 mg SQ BID (WT < 150 kg, CrCl > 30 mL/min) AND *Sequential Compression Device (SCD) Assessment and Plan Problem List: (1) Anemia ICD Code: D64.9 - Anemia Status: Chronic (2) Sickle cell crisis ICD Code: D57.00 - Hb-SS disease with crisis, unspecified Status: Acute (3) Acute sickle cell crisis ICD Code: D57.00 - Hb-SS disease with crisis, unspecified Status: Resolved Assessment and Plan 27-year-old female admitted secondary to sickle cell crisis with anemia Sickle cell crisis Sickle cell disease Acute blood loss anemia IV hydration Dilaudid IV for pain Benadryl for itching Follow hemoglobin levels Transfuse if hemoglobin level drops below 7.0 Follow clinical symptoms of crisis for improvement Asthma No exacerbation As needed albuterol Anxiety History of angina Congestive heart failure history Follow clinically IV hydration is provided for the crisis Monitor for fluid overload Migraine headaches No headache when seen Follow clinically DVT prophylaxis SCDs No anticoagulation given degree of anemia Physician Certification 2 Midnight Certification Type: Admission for Inpatient Services Order for Inpatient Services The services are ordered in accordance with Medicare regulations or non- Medicare payer requirements, as applicable. In the case of services not specified as inpatient-only, they are appropriately provided as inpatient services in accordance with the 2-midnight benchmark. Estimated LOS (days): 2 days is the estimated time the patient will need to remain in the hospital, assuming treatment plan goals are met and no additional complications. Post-Hospital Plan: Home Rodger Golden MD Nov 22, 2017 17:43
[2017-11-22] MEDS ORDERED: RESP: ALBUTEROL 2.5 MG/3 ML NEB (PRN) NEB (17:45)
[2017-11-22 20:00] VITALS: BP 104/51; PULSE 93; RESP 17; TEMP 98.7; O2SAT 98
[2017-11-22] MEDS ORDERED: HYDROmorphone HCL PF 2 MG/ML VIAL IV PRN (20:15)
[2017-11-22] MEDS: HYDROmorphone HCL PF 2 MG/ML VIAL IV PRN ×2 (20:31→23:32)
[2017-11-22] MEDS: SODIUM CHLORIDE 0.9% FLUSH 10 ML FLUSH IV FLUSH SCH (20:33)
[2017-11-22] MEDS: ZOLPIDEM TARTRATE 5 MG TAB PO PRN (23:32)
[2017-11-23] VITALS (7 sets, daily range): BP systolic 95–126; BP diastolic 58–72; PULSE 79–94; RESP 16–18; TEMP 97.8–99; O2SAT 96–100
[2017-11-23] MEDS: diphenhydrAMINE HCL 50 MG/ML VIAL IV PUSH PRN ×6 (02:28→23:01)
[2017-11-23] MEDS: HYDROmorphone HCL PF 2 MG/ML VIAL IV PRN ×6 (02:29→23:00)
[2017-11-23] MEDS: SODIUM CHLOR 0.9% 1000 ML INJ 1,000 ML IV SCH ×3 (06:25→22:58)
[2017-11-23 08:13] LABS: AUTOMATED NEUTROPHIL # 11.1 TH/MM3 (1.8-7.7); BASOPHIL # 0.2 TH/MM3 (0-0.2); EOSINOPHIL # 0.4 TH/MM3 (0-0.4); EOSINOPHIL % 2.3 % (0.0-4.0); LYMPH % 26.9 % (9.0-44.0); LYMPHOCYTE # 5.2 TH/MM3 (1.0-4.8); MEAN CELL VOLUME 83.3 FL (80.0-100.0); MEAN CORPUSCULAR HEMOGLOBIN 28.8 PG (27.0-34.0); MEAN CORPUSCULAR HGB CONC 34.6 % (32.0-36.0); MEAN PLATELET VOLUME 8.8 FL (7.0-11.0); MONO % 12.6 % (0.0-8.0); MONOCYTE # 2.4 TH/MM3 (0-0.9); NEUT % 57.2 % (16.0-70.0); PLATELET COUNT 401 TH/MM3 (150-450); RED BLOOD COUNT 2.23 MIL/MM3 (4.00-5.30); RED CELL DISTRIBUTION WIDTH 17.6 % (11.6-17.2); WHITE BLOOD COUNT 19.4 TH/MM3 (4.0-11.0)
[2017-11-23 08:27] LABS: HEMATOCRIT 18.6 % (35.0-46.0); HEMOGLOBIN 6.4 GM/DL (11.6-15.3)
[2017-11-23 08:42] LABS: ALBUMIN 3.4 GM/DL (3.4-5.0); ALKALINE PHOSPHATASE 68 U/L (45-117); ALT (GPT) 11 U/L (10-53); AST (GOT) 32 U/L (15-37); BICARBONATE 24.3 MEQ/L (21.0-32.0); BLOOD UREA NITROGEN 5 MG/DL (7-18); CALCIUM 7.9 MG/DL (8.5-10.1); CHLORIDE 110 MEQ/L (98-107); CREATININE 0.62 MG/DL (0.50-1.00); GLOMERULAR FILTRATION RATE 139 ML/MIN (>89); GLUCOSE,RANDOM 86 MG/DL (74-106); SODIUM (NA) 141 MEQ/L (136-145); TOTAL BILIRUBIN ADULT 1.1 MG/DL (0.2-1.0); TOTAL PROTEIN 6.9 GM/DL (6.4-8.2)
[2017-11-23] MEDS ORDERED: SODIUM CHLOR 0.9% 250 ML INJ 250 ML IV ONE (09:00)
[2017-11-23 09:06] LABS: ACANTHOCYTES OCC (NORMAL); SICKLE CELLS 1+ (NORMAL)
[2017-11-23] MEDS: SODIUM CHLORIDE 0.9% FLUSH 10 ML FLUSH IV FLUSH SCH ×2 (10:31→23:01)
--- NOTE | 2017-11-23 10:56 | HHI.PR ---
Subjective Remarks 27-year-old female admitted yesterday for sickle cell crisis. She states she is still in some pain with her legs and arms and shoulders, but she denies any significant shortness of breath or abdominal pain. She denies fevers. Objective Vitals Vital Signs Date Time Temp Pulse Resp B/P (MAP) Pulse Ox O2 Delivery O2 Flow Rate FiO2 11/23/17 08:00 98.2 86 17 100/58 (72) 98 11/23/17 04:00 97.8 92 16 108/58 (75) 100 11/23/17 03:05 16 11/23/17 00:00 98.6 90 17 112/66 (81) 99 11/22/17 20:00 98.7 93 17 104/51 (68) 98 11/22/17 17:50 18 11/22/17 17:50 18 11/22/17 13:17 17 98 Room Air 11/22/17 12:56 89 17 99 Room Air 11/22/17 12:03 99.0 98 18 119/59 (79) 99 I/O 11/22/17 11/22/17 11/22/17 11/23/17 11/23/17 11/23/17 07:00 15:00 23:00 07:00 15:00 23:00 Intake Total 1000 ml 3080 ml Balance 1000 ml 3080 ml Intake Oral 1080 ml IV Total 1000 ml 2000 ml # Voids 1 9 Result Diagram: 11/23/1762811/23/17 06 Objective Remarks GENERAL: Well-nourished, well-developed patient. SKIN: Warm and dry. HEAD: Normocephalic. EYES: No scleral icterus. No injection or drainage. NECK: Supple, trachea midline. No JVD or lymphadenopathy. CARDIOVASCULAR: Regular rate and rhythm without murmurs, gallops, or rubs. RESPIRATORY: Breath sounds equal bilaterally, mild congestive sounds in bases, no crackles. No accessory muscle use. GASTROINTESTINAL: Abdomen soft, non-tender, nondistended. EXTREMITIES: No cyanosis, or edema. NEUROLOGICAL: Awake, alert, and oriented x 3. Non-focal. Patient is ambulatory A/P Problem List: (1) Anemia ICD Code: D64.9 - Anemia Status: Chronic (2) Sickle cell crisis ICD Code: D57.00 - Hb-SS disease with crisis, unspecified Status: Acute (3) Acute sickle cell crisis ICD Code: D57.00 - Hb-SS disease with crisis, unspecified Status: Resolved Assessment and Plan Sickle cell crisis w/ marked Anemia Continue IVF hydration, IV Dilaudid for pain, PRN Benadryl for itching Hgb was 6.4 this a.m. 3 units of PRBC ordered for transfusion today. Following clinically, continue telemetry and pulse oximetry Asthma Patient request duo nebs as needed Congestive heart failure history Continue with [employer] closely for fluid overload (transfusions today) Anxiety Continue home meds Migraine headaches No headaches currently DVT prophylaxis SCDs Ru Golden MD Nov 23, 2017 10:56
[2017-11-23] MEDS ORDERED: RESP: ALBUTEROL 2.5 MG/IPRATROPIUM 0.5 MG NEB (PRN) NEB (11:00)
[2017-11-23] MEDS: ZOLPIDEM TARTRATE 5 MG TAB PO PRN (23:01)
[2017-11-24] VITALS (11 sets, daily range): BP systolic 110–136; BP diastolic 63–82; PULSE 77–102; RESP 16–20; TEMP 97.8–99.6; O2SAT 95–100
[2017-11-24] MEDS: diphenhydrAMINE HCL 50 MG/ML VIAL IV PUSH PRN ×6 (03:10→21:54)
[2017-11-24] MEDS: HYDROmorphone HCL PF 2 MG/ML VIAL IV PRN ×6 (03:11→21:55)
[2017-11-24 09:28] LABS: HEMATOCRIT 30.2 % (35.0-46.0); HEMOGLOBIN 10.7 GM/DL (11.6-15.3); MEAN CELL VOLUME 82.9 FL (80.0-100.0); MEAN CORPUSCULAR HEMOGLOBIN 29.4 PG (27.0-34.0); MEAN CORPUSCULAR HGB CONC 35.5 % (32.0-36.0); MEAN PLATELET VOLUME 8.6 FL (7.0-11.0); PLATELET COUNT 385 TH/MM3 (150-450); RED BLOOD COUNT 3.65 MIL/MM3 (4.00-5.30); RED CELL DISTRIBUTION WIDTH 15.2 % (11.6-17.2); WHITE BLOOD COUNT 17.4 TH/MM3 (4.0-11.0)
[2017-11-24] MEDS: SODIUM CHLORIDE 0.9% FLUSH 10 ML FLUSH IV FLUSH SCH ×2 (09:56→20:09)
[2017-11-24] MEDS: SODIUM CHLOR 0.9% 1000 ML INJ 1,000 ML IV SCH ×2 (14:01→21:56)
--- NOTE | 2017-11-24 17:00 | HHI.PR ---
Subjective Remarks Patient states that she feels no better following blood transfusions. She complains that it is hot in her room. Objective Vitals Vital Signs Date Time Temp Pulse Resp B/P (MAP) Pulse Ox O2 Delivery O2 Flow Rate FiO2 11/24/17 16:00 99.4 83 18 110/69 (83) 96 11/24/17 14:43 18 11/24/17 12:00 98.4 82 18 112/63 (79) 97 11/24/17 08:00 97.8 80 18 110/67 (81) 96 11/24/17 07:42 95 21 11/24/17 04:31 97.9 77 16 131/75 100 11/24/17 04:02 98.2 83 18 128/74 98 11/24/17 00:32 98.2 87 16 132/82 100 11/24/17 00:20 99.6 102 17 136/81 (99) 96 11/24/17 00:01 98.4 86 16 128/82 100 11/23/17 21:54 21 11/23/17 21:21 99.0 94 17 126/72 (90) 96 I/O 11/23/17 11/23/17 11/23/17 11/24/17 11/24/17 11/24/17 07:00 15:00 23:00 07:00 15:00 23:00 Intake Total 3080 ml 1000 ml 1788 ml 640 ml 250 ml Balance 3080 ml 1000 ml 1788 ml 640 ml 250 ml Intake Oral 1080 ml 1200 ml 240 ml IV Total 2000 ml 1000 ml 138 ml 250 ml Packed Cells 400 ml 400 ml Blood Product IV Normal Saline Flush 50 ml # Voids 9 5 2 Result Diagram: 11/24/17 0830 11/23/17 0629 Objective Remarks GENERAL: Well-nourished, well-developed patient. SKIN: Warm and dry. HEAD: Normocephalic. EYES: No scleral icterus. No injection or drainage. NECK: Supple, trachea midline. No JVD or lymphadenopathy. CARDIOVASCULAR: Regular rate and rhythm without murmurs, gallops, or rubs. RESPIRATORY: Breath sounds equal bilaterally, mild congestive sounds in bases, no crackles. No accessory muscle use. GASTROINTESTINAL: Abdomen soft, non-tender, nondistended. EXTREMITIES: No cyanosis, or edema. NEUROLOGICAL: Awake, alert, and oriented x 3. Non-focal. Patient is ambulatory A/P Problem List: (1) Anemia ICD Code: D64.9 - Anemia Status: Chronic (2) Sickle cell crisis ICD Code: D57.00 - Hb-SS disease with crisis, unspecified Status: Acute (3) Acute sickle cell crisis ICD Code: D57.00 - Hb-SS disease with crisis, unspecified Status: Resolved Assessment and Plan Sickle cell crisis w/ marked Anemia Continue IVF hydration, IV Dilaudid for pain, PRN Benadryl for itching Hgb was 6.4 yesterday. She received 3 units of packed red blood cells. Continue telemetry and pulse oximetry PRN nasal cannula oxygen ordered Asthma Patient request duo nebs as needed Congestive heart failure history Continue with telemetry Tolerated transfusions well Anxiety Continue home meds Migraine headaches No headaches currently DVT prophylaxis DILLONs Ru Golden MD Nov 24, 2017 17:00
[2017-11-24] MEDS: ZOLPIDEM TARTRATE 5 MG TAB PO PRN (21:54)
[2017-11-25] VITALS (10 sets, daily range): BP systolic 120–135; BP diastolic 73–90; PULSE 67–99; RESP 16–20; TEMP 97.9–99.3; O2SAT 97–100
[2017-11-25] MEDS: HYDROmorphone HCL PF 2 MG/ML VIAL IV PRN ×6 (01:47→23:16)
[2017-11-25] MEDS: diphenhydrAMINE HCL 50 MG/ML VIAL IV PUSH PRN ×6 (01:48→23:18)
[2017-11-25] MEDS: SODIUM CHLOR 0.9% 1000 ML INJ 1,000 ML IV SCH ×3 (05:57→22:58)
[2017-11-25] MEDS: SODIUM CHLORIDE 0.9% FLUSH 10 ML FLUSH IV FLUSH SCH ×2 (07:34→23:20)
[2017-11-25 10:27] LABS: HEMATOCRIT 31.4 % (35.0-46.0); HEMOGLOBIN 10.9 GM/DL (11.6-15.3); MEAN CELL VOLUME 83.9 FL (80.0-100.0); MEAN CORPUSCULAR HEMOGLOBIN 29.1 PG (27.0-34.0); MEAN CORPUSCULAR HGB CONC 34.7 % (32.0-36.0); MEAN PLATELET VOLUME 8.3 FL (7.0-11.0); PLATELET COUNT 416 TH/MM3 (150-450); RED BLOOD COUNT 3.75 MIL/MM3 (4.00-5.30); RED CELL DISTRIBUTION WIDTH 16.2 % (11.6-17.2); WHITE BLOOD COUNT 14.1 TH/MM3 (4.0-11.0)
--- NOTE | 2017-11-25 10:49 | HHI.PR ---
Subjective Remarks Pt seen around 9:15am Pt states she continues to have pain in her arms/legs and back. Pt states that compared to yesterday pain is improving somewhat. rates it 04/09. No nausea or vomiting Objective Vitals Vital Signs Date Time Temp Pulse Resp B/P (MAP) Pulse Ox O2 Delivery O2 Flow Rate FiO2 11/25/17 08:00 97.9 73 16 122/75 (91) 97 11/25/17 04:00 98.5 75 20 122/74 (90) 98 11/25/17 00:00 99.1 85 20 120/73 (89) 99 11/24/17 20:00 98.6 83 20 121/70 (87) 95 11/24/17 19:06 96 11/24/17 16:00 99.4 83 18 110/69 (83) 96 11/24/17 14:43 18 11/24/17 12:00 98.4 82 18 112/63 (79) 97 I/O 11/24/17 11/24/17 11/24/17 11/25/17 11/25/17 11/25/17 07:00 15:00 23:00 07:00 15:00 23:00 Intake Total 1040 ml 250 ml 2460 ml 1600 ml Balance 1040 ml 250 ml 2460 ml 1600 ml Intake Oral 240 ml 1460 ml 600 ml IV Total 250 ml 1000 ml 1000 ml Packed Cells 800 ml # Voids 2 4 3 # Bowel Movements 1 1 Result Diagram: 11/25/17 1014 11/23/17 0629 Imaging Last Impressions Chest X-Ray 11/22/17 1303 Signed Impressions: Service Date/Time: Wednesday, November 22, 2017 13:23 - CONCLUSION: No acute disease. Ernst Barry MD Objective Remarks GENERAL: AA laying in bed, appears tired CARDIOVASCULAR: Regular rate and rhythm without murmurs RESPIRATORY: Breath sounds equal bilaterally, no crackles. No accessory muscle use. GASTROINTESTINAL: Abdomen soft, non-tender, nondistended. EXTREMITIES: No edema. moves extremities NEUROLOGICAL: Awake, alert. A/P Problem List: (1) Anemia ICD Code: D64.9 - Anemia Status: Chronic (2) Sickle cell crisis ICD Code: D57.00 - Hb-SS disease with crisis, unspecified Status: Acute (3) Acute sickle cell crisis ICD Code: D57.00 - Hb-SS disease with crisis, unspecified Status: Resolved Assessment and Plan Sickle cell crisis w/ marked Anemia Continue IVF hydration, IV Dilaudid for pain, PRN Benadryl for itching Hgb was 6.4 now stable at 10.9 s/p 3 units of packed red blood cells. Continue telemetry and pulse oximetry PRN nasal cannula oxygen ordered encouraged ambulation and encouraged pt to sit on recliner chair and eat meals that way. Pt is slowly improving. Asthma Patient request duo nebs as needed Congestive heart failure history Continue with telemetry Tolerated transfusions well Anxiety Continue home meds Migraine headaches No headaches currently DVT prophylaxis SCDs Discharge Planning anticipate d/c in 1-2 days. Pain still present but slowly improving. Encourage ambulation and getting out of bed to chair 2-3 times daily Frida Colon MD Nov 25, 2017 10:49
[2017-11-25 11:15] LABS: BICARBONATE 22.8 MEQ/L (21.0-32.0); CREATININE 0.61 MG/DL (0.50-1.00)
[2017-11-25] MEDS: ACETAMINOPHEN/HYDROcodone 325 MG/10 MG TAB PO PRN (13:50)
[2017-11-25] MEDS: ZOLPIDEM TARTRATE 5 MG TAB PO PRN (23:14)
[2017-11-26] MEDS: ACETAMINOPHEN/HYDROcodone 325 MG/7.5 MG TAB PO PRN (01:09)
[2017-11-26] MEDS: diphenhydrAMINE HCL 50 MG/ML VIAL IV PUSH PRN ×6 (03:00→23:15)
[2017-11-26] MEDS: HYDROmorphone HCL PF 2 MG/ML VIAL IV PRN ×6 (03:00→23:16)
[2017-11-26 04:00] VITALS: BP 133/81; PULSE 72; RESP 20; TEMP 98.2; O2SAT 100
[2017-11-26] MEDS: SODIUM CHLOR 0.9% 1000 ML INJ 1,000 ML IV SCH ×3 (06:58→21:55)
[2017-11-26 08:00] VITALS: BP 144/93; PULSE 93; PULSE 96; RESP 16; TEMP 98.3; O2SAT 97
[2017-11-26 08:32] LABS: AUTOMATED NEUTROPHIL # 10.5 TH/MM3 (1.8-7.7); BASOPHIL # 0.1 TH/MM3 (0-0.2); BASOPHIL % 0.3 % (0.0-2.0); EOSINOPHIL # 0.7 TH/MM3 (0-0.4); EOSINOPHIL % 3.8 % (0.0-4.0); HEMATOCRIT 33.4 % (35.0-46.0); HEMOGLOBIN 11.3 GM/DL (11.6-15.3); LYMPH % 24.8 % (9.0-44.0); LYMPHOCYTE # 4.3 TH/MM3 (1.0-4.8); MEAN CELL VOLUME 84.4 FL (80.0-100.0); MEAN CORPUSCULAR HEMOGLOBIN 28.6 PG (27.0-34.0); MEAN CORPUSCULAR HGB CONC 33.9 % (32.0-36.0); MEAN PLATELET VOLUME 8.3 FL (7.0-11.0); MONO % 11.1 % (0.0-8.0); MONOCYTE # 1.9 TH/MM3 (0-0.9); PLATELET COUNT 408 TH/MM3 (150-450); RED BLOOD COUNT 3.96 MIL/MM3 (4.00-5.30); RED CELL DISTRIBUTION WIDTH 16.2 % (11.6-17.2); WHITE BLOOD COUNT 17.5 TH/MM3 (4.0-11.0)
[2017-11-26 08:59] LABS: BICARBONATE 24.2 MEQ/L (21.0-32.0); CALCIUM 8.3 MG/DL (8.5-10.1); CREATININE 0.71 MG/DL (0.50-1.00)
[2017-11-26] MEDS: SODIUM CHLORIDE 0.9% FLUSH 10 ML FLUSH IV FLUSH SCH ×2 (09:00→11:10)
[2017-11-26 12:00] VITALS: BP 135/85; PULSE 80; PULSE 85; RESP 16; TEMP 98.7; O2SAT 100
[2017-11-26 16:00] VITALS: BP 120/76; PULSE 74; RESP 16; TEMP 99.3; O2SAT 100
[2017-11-26] MEDS: ACETAMINOPHEN/HYDROcodone 325 MG/10 MG TAB PO PRN ×2 (17:19→21:55)
--- NOTE | 2017-11-26 18:10 | HHI.PR ---
Subjective Remarks still c/o BL leg pain Denies cp/sob Objective Vitals Vital Signs Date Time Temp Pulse Resp B/P (MAP) Pulse Ox O2 Delivery O2 Flow Rate FiO2 11/26/17 16:00 99.3 74 16 120/76 (91) 100 11/26/17 12:00 80 11/26/17 12:00 98.7 85 16 135/85 (102) 100 11/26/17 08:00 98.3 96 16 144/93 (110) 97 11/26/17 08:00 93 11/26/17 04:00 98.2 72 20 133/81 (98) 100 11/25/17 23:00 67 11/25/17 21:18 98 11/25/17 20:19 99 11/25/17 20:00 98.7 71 20 135/90 (105) 100 I/O 11/25/17 11/25/17 11/25/17 11/26/17 11/26/17 11/26/17 07:00 15:00 23:00 07:00 15:00 23:00 Intake Total 1600 ml Balance 1600 ml Intake Oral 600 ml IV Total 1000 ml # Voids 3 # Bowel Movements 1 1 Result Diagram: 11/26/17 0803 11/26/17 0803 Imaging Last Impressions Chest X-Ray 11/22/17 1303 Signed Impressions: Service Date/Time: Wednesday, November 22, 2017 13:23 - CONCLUSION: No acute disease. Ernst Barry MD Objective Remarks AAOx3 NAD Clear lungs BL S1S2 RRR abdomen soft, nt, nd no edema in lower extremities, legs tender to palpation Medications and IVs Current Medications Medications (Trade) Dose Ordered Sig/Pavel Route Start Time Stop Time Status Last Admin (NS Flush) 2 ml UNSCH PRN IVF 11/22/17 13:15 11/22/17 13:21 Sodium Chloride 1,000 ml @ 125 mls/hr Q8H IV 11/22/17 14:58 11/26/17 14:56 (NS Flush) 2 ml UNSCH PRN IV FLUSH 11/22/17 15:00 (NS Flush) 2 ml BID IV FLUSH 11/22/17 21:00 11/25/17 23:20 (Zofran Inj) 4 mg Q6H PRN IVP 11/22/17 15:00 (Narcan Inj) 0.4 mg UNSCH PRN IV PUSH 11/22/17 15:00 (Milk Of Magnesia Liq) 30 ml Q12H PRN PO 11/22/17 15:00 (Albuterol Neb) 2.5 mg Q4HR NEB PRN NEB 11/22/17 17:45 (Benadryl Inj) 25 mg Q4H PRN IV PUSH 11/23/17 01:30 11/26/17 14:56 (Ambien) 5 mg HS PRN PO 11/22/17 23:00 11/25/17 23:14 (Duoneb Neb) 1 ampule Q6HR NEB PRN NEB 11/23/17 11:00 (Dilaudid Pf Inj) 1 mg Q4H PRN IV 11/25/17 11:00 11/26/17 14:56 ([place] 10-325 Mg) 1 tab Q4H PRN PO 11/25/17 11:00 11/26/17 17:19 ([place] 7.5-325 Mg) 1 tab Q4H PRN PO 11/25/17 11:00 11/26/17 01:09 A/P Problem List: (1) Anemia ICD Code: D64.9 - Anemia Status: Chronic (2) Sickle cell crisis ICD Code: D57.00 - Hb-SS disease with crisis, unspecified Status: Acute (3) Acute sickle cell crisis ICD Code: D57.00 - Hb-SS disease with crisis, unspecified Status: Resolved Assessment and Plan Continue with fluids [place] and morphine IV for breakthrough pain Status post infusion of 3 units of packed red blood cells. Hemoglobin stable. Continue to monitor CBC Continue telemetry Supplemental oxygen to keep oxygen saturation more than 92% as needed. Encourage ambulation. Patient still complaining of bilateral extremity pain. Discharge Planning Possible discharge in a.m. if hemoglobin is stable and patient's pain better controlled. Omero Beavers MD Nov 26, 2017 18:10
[2017-11-26 20:00] VITALS: BP 142/81; PULSE 82; PULSE 91; RESP 20; TEMP 98.6; O2SAT 100
[2017-11-26 20:12] VITALS: O2SAT 96
[2017-11-26] MEDS: ZOLPIDEM TARTRATE 5 MG TAB PO PRN (21:55)
[2017-11-27 00:05] VITALS: BP 130/76; PULSE 72; RESP 20; TEMP 98.8; O2SAT 99
[2017-11-27] MEDS: ACETAMINOPHEN/HYDROcodone 325 MG/10 MG TAB PO PRN ×5 (01:56→20:17)
[2017-11-27] MEDS: HYDROmorphone HCL PF 2 MG/ML VIAL IV PRN ×5 (03:19→21:35)
[2017-11-27] MEDS: diphenhydrAMINE HCL 50 MG/ML VIAL IV PUSH PRN ×5 (03:19→21:35)
[2017-11-27 06:49] LABS: BASOPHIL # 0.1 TH/MM3 (0-0.2); BASOPHIL % 0.8 % (0.0-2.0); EOSINOPHIL # 0.7 TH/MM3 (0-0.4); EOSINOPHIL % 5.9 % (0.0-4.0); HEMATOCRIT 24.5 % (35.0-46.0); HEMOGLOBIN 8.4 GM/DL (11.6-15.3); LYMPH % 24.7 % (9.0-44.0); MEAN CELL VOLUME 85.1 FL (80.0-100.0); MEAN CORPUSCULAR HEMOGLOBIN 29.1 PG (27.0-34.0); MEAN CORPUSCULAR HGB CONC 34.2 % (32.0-36.0); MEAN PLATELET VOLUME 7.5 FL (7.0-11.0); MONO % 9.8 % (0.0-8.0); MONOCYTE # 1.2 TH/MM3 (0-0.9); NEUT % 58.8 % (16.0-70.0); PLATELET COUNT 329 TH/MM3 (150-450); RED BLOOD COUNT 2.88 MIL/MM3 (4.00-5.30); RED CELL DISTRIBUTION WIDTH 16.1 % (11.6-17.2); WHITE BLOOD COUNT 11.9 TH/MM3 (4.0-11.0)
[2017-11-27] MEDS: SODIUM CHLOR 0.9% 1000 ML INJ 1,000 ML IV SCH ×3 (06:58→20:20)
[2017-11-27] MEDS: SODIUM CHLORIDE 0.9% FLUSH 10 ML FLUSH IV FLUSH SCH ×2 (07:52→20:17)
[2017-11-27 08:00] VITALS: BP 127/75; PULSE 78; RESP 21; TEMP 98.1; O2SAT 99
--- NOTE | 2017-11-27 11:23 | HHI.PR ---
Subjective Remarks Stable in her bedroom, states does not want her medicines to be changed. no signs of infection. No nausea, vomit or diarrhea. Objective Vital Signs Date Time Temp Pulse Resp B/P (MAP) Pulse Ox O2 Delivery O2 Flow Rate FiO2 11/27/17 08:39 18 11/27/17 08:00 98.1 78 21 127/75 (92) 99 11/27/17 00:05 98.8 72 20 130/76 (94) 99 11/26/17 20:12 96 21 11/26/17 20:00 91 11/26/17 20:00 98.6 82 20 142/81 (101) 100 11/26/17 16:00 99.3 74 16 120/76 (91) 100 11/26/17 12:00 80 11/26/17 12:00 98.7 85 16 135/85 (102) 100 I/O 11/26/17 11/26/17 11/26/17 11/27/17 11/27/17 11/27/17 07:00 15:00 23:00 07:00 15:00 23:00 Intake Total 2440 ml 2114 ml Balance 2440 ml 2114 ml Intake Oral 1440 ml 1240 ml IV Total 1000 ml 874 ml # Voids 4 4 # Bowel Movements 1 1 1 Result Diagram: 11/27/17 0633 11/26/17 0803 Imaging Last Impressions Chest X-Ray 11/22/17 1303 Signed Impressions: Service Date/Time: Wednesday, November 22, 2017 13:23 - CONCLUSION: No acute disease. Ernst Barry MD Procedures None Other Results Laboratory Tests Test 11/22/17 13:20 11/23/17 06:29 11/26/17 08:03 11/27/17 06:33 Differential Total Cells Counted 100 Neutrophils % (Manual) 62 % Lymphocytes % 27 % Monocytes % 8 % Eosinophils % 1 % Basophils % 1 % Neutrophils # (Manual) 9.6 TH/MM3 Myelocytes 1 % Nucleated Red Blood Cells 2 /100 WBC Target Cells 2+ Ovalocytes 1+ [place] Bodies PRESENT Keratocytes 1+ Reticulocyte Count 5.0 % Absolute Reticulocyte Count 131.7 MIL/L Urine Color YELLOW Urine Turbidity HAZY Urine pH 6.5 Urine Specific [place] 1.015 Urine Protein TRACE mg/dL Urine Glucose (UA) NEG mg/dL Urine Ketones NEG mg/dL Urine Occult Blood NEG Urine Nitrite NEG Urine Bilirubin NEG Urine Urobilinogen 2.0 MG/DL Urine Leukocyte Esterase TRACE Urine RBC 1 /hpf Urine WBC 2 /hpf Urine Squamous Epithelial Cells 11 /hpf Urine Transitional Epithelial Cells <1 /hpf Urine Bacteria RARE /hpf Urine Hyaline Casts 3 /lpf Urine Mucus FEW /lpf Microscopic Urinalysis Comment CULT NOT INDICATED C-Reactive Protein LESS THAN 0.29 MG/DL Platelet Estimate NORMAL Platelet Morphology Comment NORMAL Sickle Cells 1+ Acanthocytes OCC Red Cell Morphology Comment Blood Urea Nitrogen 5 MG/DL 4 MG/DL Creatinine 0.62 MG/DL 0.71 MG/DL Random Glucose 86 MG/DL 88 MG/DL Total Protein 6.9 GM/DL Albumin 3.4 GM/DL Calcium Level 7.9 MG/DL 8.3 MG/DL Alkaline Phosphatase 68 U/L Aspartate Amino Transf (AST/SGOT) 32 U/L Alanine Aminotransferase (ALT/SGPT) 11 U/L Total Bilirubin 1.1 MG/DL Sodium Level 141 MEQ/L 141 MEQ/L Potassium Level 3.7 MEQ/L 3.7 MEQ/L Chloride Level 110 MEQ/L 110 MEQ/L Carbon Dioxide Level 24.3 MEQ/L 24.2 MEQ/L Anion Gap 7 MEQ/L Estimat Glomerular Filtration Rate 119 ML/MIN White Blood Count 11.9 TH/MM3 Red Blood Count 2.88 MIL/MM3 Hemoglobin 8.4 GM/DL Hematocrit 24.5 % Mean Corpuscular Volume 85.1 FL Mean Corpuscular Hemoglobin 29.1 PG Mean Corpuscular Hemoglobin Concent 34.2 % Red Cell Distribution Width 16.1 % Platelet Count 329 TH/MM3 Mean Platelet Volume 7.5 FL Neutrophils (%) (Auto) 58.8 % Lymphocytes (%) (Auto) 24.7 % Monocytes (%) (Auto) 9.8 % Eosinophils (%) (Auto) 5.9 % Basophils (%) (Auto) 0.8 % Neutrophils # (Auto) 7.0 TH/MM3 Lymphocytes # (Auto) 3.0 TH/MM3 Monocytes # (Auto) 1.2 TH/MM3 Eosinophils # (Auto) 0.7 TH/MM3 Basophils # (Auto) 0.1 TH/MM3 CBC Comment DIFF FINAL Differential Comment Objective Remarks GENERAL: Obesity. SKIN: Warm and dry. HEAD: Atraumatic. Normocephalic. EYES: Pupils equal and round. No scleral icterus. No injection or drainage. ENT: No nasal bleeding or discharge. Mucous membranes pink and moist. NECK: Trachea midline. No JVD. CARDIOVASCULAR: Regular rate and rhythm. systolic murmur. RESPIRATORY: No accessory muscle use. Clear to auscultation. Breath sounds equal bilaterally. GASTROINTESTINAL: Abdomen soft, non-tender, nondistended. Hepatic and splenic margins not palpable. MUSCULOSKELETAL: Extremities without clubbing, cyanosis, or edema. No obvious deformities. NEUROLOGICAL: Awake and alert. No obvious cranial nerve deficits. Motor grossly within normal limits. Five out of 5 muscle strength in the arms and legs. Normal speech. PSYCHIATRIC: Appropriate mood and affect; insight and judgment normal. Medications and IVs Current Medications Medications (Trade) Dose Ordered Sig/Pavel Route Start Time Stop Time Status Last Admin (NS Flush) 2 ml UNSCH PRN IVF 11/22/17 13:15 11/22/17 13:21 Sodium Chloride 1,000 ml @ 125 mls/hr Q8H IV 11/22/17 14:58 11/26/17 21:55 (NS Flush) 2 ml UNSCH PRN IV FLUSH 11/22/17 15:00 (NS Flush) 2 ml BID IV FLUSH 11/22/17 21:00 11/25/17 23:20 (Zofran Inj) 4 mg Q6H PRN IVP 11/22/17 15:00 (Narcan Inj) 0.4 mg UNSCH PRN IV PUSH 11/22/17 15:00 (Milk Of Magnesia Liq) 30 ml Q12H PRN PO 11/22/17 15:00 (Albuterol Neb) 2.5 mg Q4HR NEB PRN NEB 11/22/17 17:45 (Benadryl Inj) 25 mg Q4H PRN IV PUSH 11/23/17 01:30 11/27/17 08:10 (Ambien) 5 mg HS PRN PO 11/22/17 23:00 11/26/17 21:55 (Duoneb Neb) 1 ampule Q6HR NEB PRN NEB 11/23/17 11:00 (Dilaudid Pf Inj) 1 mg Q4H PRN IV 11/25/17 11:00 11/27/17 08:09 ([place] 10-325 Mg) 1 tab Q4H PRN PO 11/25/17 11:00 11/27/17 10:57 ([place] 7.5-325 Mg) 1 tab Q4H PRN PO 11/25/17 11:00 11/26/17 01:09 A/P Assessment and Plan (1) Anemia ICD Code: D64.9 - Anemia Status: Chronic (2) 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 Hemoglobin stable. Continue to monitor CBC Continue telemetry Supplemental oxygen to keep oxygen saturation more than 92% as needed. Encourage ambulation Drug Seeking behavior evident. Staphylococcus coagulase negative probable contaminant DVT prophylaxis with SCDs due to anemia and the need for blood transfusion will follow in am tomorrow with new H and H. Discharge Planning not able to discharge patient she states continue in pain. Atul Rao MD Nov 27, 2017 11:23
[2017-11-27 12:00] VITALS: BP 121/76; PULSE 85; RESP 20; TEMP 98.2; O2SAT 100
[2017-11-27 16:00] VITALS: BP 133/78; PULSE 85; RESP 18; TEMP 98.2; O2SAT 95
[2017-11-27 20:00] VITALS: BP 144/77; PULSE 79; RESP 18; TEMP 98.7; O2SAT 94
[2017-11-27] MEDS: ZOLPIDEM TARTRATE 5 MG TAB PO PRN (21:35)
[2017-11-28] VITALS: BP 135/76; PULSE 76; RESP 17; TEMP 98.1; O2SAT 100
[2017-11-28] MEDS: ACETAMINOPHEN/HYDROcodone 325 MG/10 MG TAB PO PRN ×5 (00:12→22:14)
[2017-11-28] MEDS: HYDROmorphone HCL PF 2 MG/ML VIAL IV PRN ×3 (01:30→11:17)
[2017-11-28] MEDS: diphenhydrAMINE HCL 50 MG/ML VIAL IV PUSH PRN ×5 (01:30→23:22)
[2017-11-28 04:00] VITALS: BP 149/64; PULSE 72; RESP 16; TEMP 98.4; O2SAT 100
[2017-11-28] MEDS: SODIUM CHLOR 0.9% 1000 ML INJ 1,000 ML IV SCH ×3 (04:21→22:58)
[2017-11-28] MEDS: SODIUM CHLORIDE 0.9% FLUSH 10 ML FLUSH IV FLUSH SCH ×2 (07:24→23:22)
[2017-11-28 08:00] VITALS: PULSE 68; PULSE 72
[2017-11-28 08:27] LABS: HEMATOCRIT 30.5 % (35.0-46.0); HEMOGLOBIN 10.4 GM/DL (11.6-15.3)
[2017-11-28 12:00] VITALS: PULSE 79
--- NOTE | 2017-11-28 14:07 | HHI.PR ---
Subjective Remarks Follow-up for sickle cell crisis Patient says that she is in a lot of pain, /, patient however appears comfortable, no tachycardia. She verbalized that she also started her period which worsened her cramping. Denies any fever, chest pain, shortness of breath , headache. No nausea or vomiting. Hemoglobin stable, in fact improved. Objective Vitals Vital Signs Date Time Temp Pulse Resp B/P (MAP) Pulse Ox O2 Delivery O2 Flow Rate FiO2 11/28/17 12:00 79 11/28/17 11:47 18 11/28/17 09:57 18 11/28/17 08:00 68 11/28/17 04:00 98.4 72 16 149/64 (92) 100 11/28/17 00:00 98.1 76 17 135/76 (95) 100 11/27/17 20:00 98.7 79 18 144/77 (99) 94 11/27/17 16:00 98.2 85 18 133/78 (96) 95 I/O 11/27/17 11/27/17 11/27/17 11/28/17 11/28/17 11/28/17 07:00 15:00 23:00 07:00 15:00 23:00 Intake Total 2114 ml 1960 ml 1820 ml Balance 2114 ml 1960 ml 1820 ml Intake Oral 1240 ml 960 ml 820 ml IV Total 874 ml 1000 ml 1000 ml # Voids 4 5 5 # Bowel Movements 1 1 # Sanitary Pads 1 Pads Result Diagram: 11/28/17 0730 11/26/17 0803 Objective Remarks Not in distress Pale conjunctivae, anicteric No nasal bleeding No JVD Regular rate and rhythm Clear breath sounds, no rhonchi wheezing Nontender No edema No tenderness on palpation of upper extremities. Awake alert and oriented 3, no focal deficits. 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 Hemoglobin stable, improved. Recheck CBC tomorrow, check LDH and reticulocyte's. Continue [place], switch Dilaudid IV to oral, continue IVF. Continue oxygen supplementation. Possible drug-seeking behavior. Coagulase-negative staph from blood culture likely contaminant. These cases are always challenging, I am not convinced that she is in pain, wean Dilaudid. DVT prophylaxis: SCDs Discharge Planning Possible drug-seeking behavior, I am not convinced that she is in pain, wean Dilaudid, discharge in a few days. Jalil Salas MD Nov 28, 2017 14:07
[2017-11-28] MEDS ORDERED: HYDROmorphone HCL 2 MG TAB PO PRN (14:30)
[2017-11-28] MEDS ORDERED: PILL SPLITTER OTHER PRN (14:45)
[2017-11-28 16:00] VITALS: BP 128/72; PULSE 69; RESP 17; TEMP 98.6; O2SAT 100
[2017-11-28 20:00] VITALS: BP 152/70; PULSE 83; RESP 16; TEMP 98.7; O2SAT 100
[2017-11-28] MEDS: ZOLPIDEM TARTRATE 5 MG TAB PO PRN (22:15)
[2017-11-29] VITALS: BP 136/81; PULSE 89; RESP 16; TEMP 98.1; O2SAT 97
[2017-11-29 04:00] VITALS: BP 130/82; PULSE 82; RESP 16; TEMP 98.5; O2SAT 95
[2017-11-29] MEDS: ACETAMINOPHEN/HYDROcodone 325 MG/10 MG TAB PO PRN ×5 (04:28→23:00)
[2017-11-29 06:06] LABS: AUTOMATED NEUTROPHIL # 6.4 TH/MM3 (1.8-7.7); BASOPHIL # 0.2 TH/MM3 (0-0.2); BASOPHIL % 1.4 % (0.0-2.0); EOSINOPHIL # 0.8 TH/MM3 (0-0.4); EOSINOPHIL % 6.9 % (0.0-4.0); HEMATOCRIT 31.5 % (35.0-46.0); HEMOGLOBIN 10.8 GM/DL (11.6-15.3); LYMPH % 26.4 % (9.0-44.0); LYMPHOCYTE # 3.1 TH/MM3 (1.0-4.8); MEAN CELL VOLUME 85.4 FL (80.0-100.0); MEAN CORPUSCULAR HEMOGLOBIN 29.1 PG (27.0-34.0); MEAN CORPUSCULAR HGB CONC 34.1 % (32.0-36.0); MEAN PLATELET VOLUME 8.5 FL (7.0-11.0); MONO % 10.7 % (0.0-8.0); MONOCYTE # 1.3 TH/MM3 (0-0.9); NEUT % 54.6 % (16.0-70.0); PLATELET COUNT 397 TH/MM3 (150-450); RED BLOOD COUNT 3.69 MIL/MM3 (4.00-5.30); RED CELL DISTRIBUTION WIDTH 16.1 % (11.6-17.2); RETIC # 86.6 MIL/L (20.0-150.0); RETIC % 2.3 % (0.4-3.0); WHITE BLOOD COUNT 11.8 TH/MM3 (4.0-11.0)
[2017-11-29] MEDS: diphenhydrAMINE HCL 50 MG/ML VIAL IV PUSH PRN ×5 (06:33→23:31)
[2017-11-29 06:39] LABS: BICARBONATE 25.1 MEQ/L (21.0-32.0); CALCIUM 8.4 MG/DL (8.5-10.1); CREATININE 0.64 MG/DL (0.50-1.00)
[2017-11-29 08:00] VITALS: BP 136/96; PULSE 71; RESP 18; TEMP 98; O2SAT 98
--- NOTE | 2017-11-29 08:35 | HHI.PR ---
Subjective Remarks Stable in her bedroom, states does not want her medicines to be changed. no signs of infection. 11/29: Seen her in bedroom in the presence of nurse Miss Cornejo and TEXTILE WORKER Miss Vicky Munoz. upset she wants IV pain medicine. no nausea, vomit or diarrhea. Objective Vital Signs Date Time Temp Pulse Resp B/P (MAP) Pulse Ox O2 Delivery O2 Flow Rate FiO2 11/29/17 04:00 98.5 82 16 130/82 (98) 95 11/29/17 00:00 98.1 89 16 136/81 (99) 97 11/28/17 20:00 98.7 83 16 152/70 (97) 100 11/28/17 16:00 98.6 69 17 128/72 (90) 100 11/28/17 14:53 18 11/28/17 12:00 79 11/28/17 11:47 18 I/O 11/28/17 11/28/17 11/28/17 11/29/17 11/29/17 11/29/17 07:00 15:00 23:00 07:00 15:00 23:00 Intake Total 1820 ml 120 ml 240 ml Balance 1820 ml 120 ml 240 ml Intake Oral 820 ml 120 ml 240 ml IV Total 1000 ml # Voids 5 3 4 # Bowel Movements 0 # Sanitary Pads 1 Pads Result Diagram: 11/29/17 0440 11/29/17 0440 Imaging Last Impressions Chest X-Ray 11/22/17 1303 Signed Impressions: Service Date/Time: Wednesday, November 22, 2017 13:23 - CONCLUSION: No acute disease. Ernst Barry MD Procedures None Other Results Laboratory Tests Test 11/22/17 13:20 11/23/17 06:29 11/29/17 04:40 Differential Total Cells Counted 100 Neutrophils % (Manual) 62 % Lymphocytes % 27 % Monocytes % 8 % Eosinophils % 1 % Basophils % 1 % Neutrophils # (Manual) 9.6 TH/MM3 Myelocytes 1 % Nucleated Red Blood Cells 2 /100 WBC Target Cells 2+ Ovalocytes 1+ [place] Bodies PRESENT Keratocytes 1+ Urine Color YELLOW Urine Turbidity HAZY Urine pH 6.5 Urine Specific [place] 1.015 Urine Protein TRACE mg/dL Urine Glucose (UA) NEG mg/dL Urine Ketones NEG mg/dL Urine Occult Blood NEG Urine Nitrite NEG Urine Bilirubin NEG Urine Urobilinogen 2.0 MG/DL Urine Leukocyte Esterase TRACE Urine RBC 1 /hpf Urine WBC 2 /hpf Urine Squamous Epithelial Cells 11 /hpf Urine Transitional Epithelial Cells <1 /hpf Urine Bacteria RARE /hpf Urine Hyaline Casts 3 /lpf Urine Mucus FEW /lpf Microscopic Urinalysis Comment CULT NOT INDICATED C-Reactive Protein LESS THAN 0.29 MG/DL Platelet Estimate NORMAL Platelet Morphology Comment NORMAL Sickle Cells 1+ Acanthocytes OCC Red Cell Morphology Comment Blood Urea Nitrogen 5 MG/DL 7 MG/DL Creatinine 0.62 MG/DL 0.64 MG/DL Random Glucose 86 MG/DL 84 MG/DL Total Protein 6.9 GM/DL Albumin 3.4 GM/DL Calcium Level 7.9 MG/DL 8.4 MG/DL Alkaline Phosphatase 68 U/L Aspartate Amino Transf (AST/SGOT) 32 U/L Alanine Aminotransferase (ALT/SGPT) 11 U/L Total Bilirubin 1.1 MG/DL Sodium Level 141 MEQ/L 142 MEQ/L Potassium Level 3.7 MEQ/L 3.6 MEQ/L Chloride Level 110 MEQ/L 110 MEQ/L Carbon Dioxide Level 24.3 MEQ/L 25.1 MEQ/L White Blood Count 11.8 TH/MM3 Red Blood Count 3.69 MIL/MM3 Hemoglobin 10.8 GM/DL Hematocrit 31.5 % Mean Corpuscular Volume 85.4 FL Mean Corpuscular Hemoglobin 29.1 PG Mean Corpuscular Hemoglobin Concent 34.1 % Red Cell Distribution Width 16.1 % Platelet Count 397 TH/MM3 Mean Platelet Volume 8.5 FL Neutrophils (%) (Auto) 54.6 % Lymphocytes (%) (Auto) 26.4 % Monocytes (%) (Auto) 10.7 % Eosinophils (%) (Auto) 6.9 % Basophils (%) (Auto) 1.4 % Neutrophils # (Auto) 6.4 TH/MM3 Lymphocytes # (Auto) 3.1 TH/MM3 Monocytes # (Auto) 1.3 TH/MM3 Eosinophils # (Auto) 0.8 TH/MM3 Basophils # (Auto) 0.2 TH/MM3 CBC Comment DIFF FINAL Differential Comment Reticulocyte Count 2.3 % Absolute Reticulocyte Count 86.6 MIL/L Lactate Dehydrogenase 361 U/L Anion Gap 7 MEQ/L Estimat Glomerular Filtration Rate 134 ML/MIN Objective Remarks GENERAL: Obesity. SKIN: Warm and dry. HEAD: Atraumatic. Normocephalic. EYES: Pupils equal and round. No scleral icterus. No injection or drainage. ENT: No nasal bleeding or discharge. Mucous membranes pink and moist. NECK: Trachea midline. No JVD. CARDIOVASCULAR: Regular rate and rhythm. systolic murmur. RESPIRATORY: No accessory muscle use. Clear to auscultation. Breath sounds equal bilaterally. GASTROINTESTINAL: Abdomen soft, non-tender, nondistended. Hepatic and splenic margins not palpable. MUSCULOSKELETAL: Extremities without clubbing, cyanosis, or edema. No obvious deformities. NEUROLOGICAL: Awake and alert. No obvious cranial nerve deficits. Motor grossly within normal limits. Five out of 5 muscle strength in the arms and legs. Normal speech. PSYCHIATRIC: Appropriate mood and affect; insight and judgment normal. Medications and IVs Current Medications Medications (Trade) Dose Ordered Sig/Pavel Route Start Time Stop Time Status Last Admin Sodium Chloride 1,000 ml @ 125 mls/hr Q8H IV 11/22/17 14:58 11/28/17 22:58 (NS Flush) 2 ml UNSCH PRN IV FLUSH 11/22/17 15:00 11/29/17 06:33 (NS Flush) 2 ml BID IV FLUSH 11/22/17 21:00 11/28/17 23:22 (Zofran Inj) 4 mg Q6H PRN IVP 11/22/17 15:00 (Narcan Inj) 0.4 mg UNSCH PRN IV PUSH 11/22/17 15:00 (Milk Of Magnesia Liq) 30 ml Q12H PRN PO 11/22/17 15:00 (Albuterol Neb) 2.5 mg Q4HR NEB PRN NEB 11/22/17 17:45 (Benadryl Inj) 25 mg Q4H PRN IV PUSH 11/23/17 01:30 11/29/17 06:33 (Ambien) 5 mg HS PRN PO 11/22/17 23:00 11/28/17 22:15 (Duoneb Neb) 1 ampule Q6HR NEB PRN NEB 11/23/17 11:00 ([place] 10-325 Mg) 1 tab Q4H PRN PO 11/25/17 11:00 11/29/17 04:28 ([place] 7.5-325 Mg) 1 tab Q4H PRN PO 11/25/17 11:00 11/26/17 01:09 (Dilaudid) 1 mg Q4H PRN PO 11/28/17 14:30 11/28/17 15:31 (Pill Splitter) 1 ea UNSCH PRN OTHER 11/28/17 14:45 A/P Assessment and Plan (1) Anemia ICD Code: D64.9 - Anemia Status: Chronic (2) 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 Hemoglobin 10.8 Continue telemetry Supplemental oxygen to keep oxygen saturation more than 92% as needed. Encourage ambulation Drug Seeking behavior Staphylococcus coagulase negative probable contaminant DVT prophylaxis with SCDs due to anemia and the need for blood transfusion will follow in am tomorrow with new H and H. Discharge Planning Clear for discharge home. once pain improves. Atul Rao MD Nov 29, 2017 08:35
[2017-11-29] MEDS: SODIUM CHLORIDE 0.9% FLUSH 10 ML FLUSH IV FLUSH SCH ×2 (09:55→22:46)
[2017-11-29] MEDS: SODIUM CHLOR 0.9% 1000 ML INJ 1,000 ML IV SCH ×3 (09:55→23:00)
[2017-11-29 12:00] VITALS: BP 125/66; PULSE 97; RESP 16; TEMP 98.3; O2SAT 93
[2017-11-29 16:00] VITALS: BP 140/86; PULSE 78; RESP 16; TEMP 99; O2SAT 98
[2017-11-29 20:00] VITALS: BP 139/87; PULSE 70; RESP 20; TEMP 98.7; O2SAT 98
[2017-11-29] MEDS: ZOLPIDEM TARTRATE 5 MG TAB PO PRN (23:06)
[2017-11-30] VITALS: BP 131/75; PULSE 70; RESP 20; TEMP 98.6; O2SAT 98
[2017-11-30] MEDS: ACETAMINOPHEN/HYDROcodone 325 MG/10 MG TAB PO PRN ×5 (03:05→18:43)
[2017-11-30] MEDS: diphenhydrAMINE HCL 50 MG/ML VIAL IV PUSH PRN ×2 (03:54→08:47)
[2017-11-30] MEDS: SODIUM CHLOR 0.9% 1000 ML INJ 1,000 ML IV SCH ×3 (06:54→22:45)
[2017-11-30 08:00] VITALS: BP 142/63; PULSE 78; RESP 16; TEMP 98; O2SAT 94
--- NOTE | 2017-11-30 08:22 | HHI.PR ---
Subjective Remarks 11/30: Janeth in her bedroom seen in the presence of nurse miss Matias as per patient continue in pain asking for the Benadryl to be given with pain medicine, was explained will need to be given before pain Medicine 30 minutes and will switch to by mouth. no rash at this time, no allergic reaction. no nausea, vomit or diarrhea, looks very comfortable. Objective Vital Signs Date Time Temp Pulse Resp B/P (MAP) Pulse Ox O2 Delivery O2 Flow Rate FiO2 11/30/17 00:00 98.6 70 20 131/75 (93) 98 11/29/17 20:00 98.7 70 20 139/87 (104) 98 11/29/17 16:00 99.0 78 16 140/86 (104) 98 11/29/17 12:00 98.3 97 16 125/66 (85) 93 I/O 11/29/17 11/29/17 11/29/17 11/30/17 11/30/17 11/30/17 07:00 15:00 23:00 07:00 15:00 23:00 Intake Total 240 ml 1361 ml 1456 ml Balance 240 ml 1361 ml 1456 ml Intake Oral 240 ml 720 ml 480 ml IV Total 641 ml 976 ml # Voids 4 4 4 # Bowel Movements 0 1 0 # Sanitary Pads 1 Pads Result Diagram: 11/29/17 0440 11/29/17 0440 Imaging Last Impressions Chest X-Ray 11/22/17 1303 Signed Impressions: Service Date/Time: Wednesday, November 22, 2017 13:23 - CONCLUSION: No acute disease. Ernst Barry MD Procedures None Other Results Laboratory Tests Test 11/22/17 13:20 11/23/17 06:29 11/29/17 04:40 Differential Total Cells Counted 100 Neutrophils % (Manual) 62 % Lymphocytes % 27 % Monocytes % 8 % Eosinophils % 1 % Basophils % 1 % Neutrophils # (Manual) 9.6 TH/MM3 Myelocytes 1 % Nucleated Red Blood Cells 2 /100 WBC Target Cells 2+ Ovalocytes 1+ [place] Bodies PRESENT Keratocytes 1+ Urine Color YELLOW Urine Turbidity HAZY Urine pH 6.5 Urine Specific [place] 1.015 Urine Protein TRACE mg/dL Urine Glucose (UA) NEG mg/dL Urine Ketones NEG mg/dL Urine Occult Blood NEG Urine Nitrite NEG Urine Bilirubin NEG Urine Urobilinogen 2.0 MG/DL Urine Leukocyte Esterase TRACE Urine RBC 1 /hpf Urine WBC 2 /hpf Urine Squamous Epithelial Cells 11 /hpf Urine Transitional Epithelial Cells <1 /hpf Urine Bacteria RARE /hpf Urine Hyaline Casts 3 /lpf Urine Mucus FEW /lpf Microscopic Urinalysis Comment CULT NOT INDICATED C-Reactive Protein LESS THAN 0.29 MG/DL Platelet Estimate NORMAL Platelet Morphology Comment NORMAL Sickle Cells 1+ Acanthocytes OCC Red Cell Morphology Comment Blood Urea Nitrogen 5 MG/DL 7 MG/DL Creatinine 0.62 MG/DL 0.64 MG/DL Random Glucose 86 MG/DL 84 MG/DL Total Protein 6.9 GM/DL Albumin 3.4 GM/DL Calcium Level 7.9 MG/DL 8.4 MG/DL Alkaline Phosphatase 68 U/L Aspartate Amino Transf (AST/SGOT) 32 U/L Alanine Aminotransferase (ALT/SGPT) 11 U/L Total Bilirubin 1.1 MG/DL Sodium Level 141 MEQ/L 142 MEQ/L Potassium Level 3.7 MEQ/L 3.6 MEQ/L Chloride Level 110 MEQ/L 110 MEQ/L Carbon Dioxide Level 24.3 MEQ/L 25.1 MEQ/L White Blood Count 11.8 TH/MM3 Red Blood Count 3.69 MIL/MM3 Hemoglobin 10.8 GM/DL Hematocrit 31.5 % Mean Corpuscular Volume 85.4 FL Mean Corpuscular Hemoglobin 29.1 PG Mean Corpuscular Hemoglobin Concent 34.1 % Red Cell Distribution Width 16.1 % Platelet Count 397 TH/MM3 Mean Platelet Volume 8.5 FL Neutrophils (%) (Auto) 54.6 % Lymphocytes (%) (Auto) 26.4 % Monocytes (%) (Auto) 10.7 % Eosinophils (%) (Auto) 6.9 % Basophils (%) (Auto) 1.4 % Neutrophils # (Auto) 6.4 TH/MM3 Lymphocytes # (Auto) 3.1 TH/MM3 Monocytes # (Auto) 1.3 TH/MM3 Eosinophils # (Auto) 0.8 TH/MM3 Basophils # (Auto) 0.2 TH/MM3 CBC Comment DIFF FINAL Differential Comment Reticulocyte Count 2.3 % Absolute Reticulocyte Count 86.6 MIL/L Lactate Dehydrogenase 361 U/L Anion Gap 7 MEQ/L Estimat Glomerular Filtration Rate 134 ML/MIN Objective Remarks GENERAL: Obesity. SKIN: Warm and dry. HEAD: Atraumatic. Normocephalic. EYES: Pupils equal and round. No scleral icterus. No injection or drainage. ENT: No nasal bleeding or discharge. Mucous membranes pink and moist. NECK: Trachea midline. No JVD. CARDIOVASCULAR: Regular rate and rhythm. systolic murmur. RESPIRATORY: No accessory muscle use. Clear to auscultation. Breath sounds equal bilaterally. GASTROINTESTINAL: Abdomen soft, non-tender, nondistended. Hepatic and splenic margins not palpable. MUSCULOSKELETAL: Extremities without clubbing, cyanosis, or edema. No obvious deformities. NEUROLOGICAL: Awake and alert. No obvious cranial nerve deficits. PSYCHIATRIC: Appropriate mood and affect; insight and judgment normal. Medications and IVs Current Medications Medications (Trade) Dose Ordered Sig/Pavel Route Start Time Stop Time Status Last Admin Sodium Chloride 1,000 ml @ 125 mls/hr Q8H IV 11/22/17 14:58 11/30/17 06:54 (NS Flush) 2 ml UNSCH PRN IV FLUSH 11/22/17 15:00 11/29/17 06:33 (NS Flush) 2 ml BID IV FLUSH 11/22/17 21:00 11/29/17 09:55 (Zofran Inj) 4 mg Q6H PRN IVP 11/22/17 15:00 (Narcan Inj) 0.4 mg UNSCH PRN IV PUSH 11/22/17 15:00 (Milk Of Magnesia Liq) 30 ml Q12H PRN PO 11/22/17 15:00 (Albuterol Neb) 2.5 mg Q4HR NEB PRN NEB 11/22/17 17:45 (Benadryl Inj) 25 mg Q4H PRN IV PUSH 11/23/17 01:30 11/30/17 03:54 (Ambien) 5 mg HS PRN PO 11/22/17 23:00 11/29/17 23:06 (Duoneb Neb) 1 ampule Q6HR NEB PRN NEB 11/23/17 11:00 ([place] 10-325 Mg) 1 tab Q4H PRN PO 11/25/17 11:00 11/30/17 06:57 ([place] 7.5-325 Mg) 1 tab Q4H PRN PO 11/25/17 11:00 3/29/18 01:09 (Dilaudid) 1 mg Q4H PRN PO 11/28/17 14:30 11/28/17 15:31 (Pill Splitter) 1 ea UNSCH PRN OTHER 11/28/17 14:45 A/P Assessment and Plan (1) Anemia ICD Code: D64.9 - Anemia Status: Chronic (2) Sickle cell crisis 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 Hemoglobin 10.8 Remove Telemetry. Supplemental oxygen to keep oxygen saturation more than 92% as needed. Encourage ambulation Drug Seeking behavior Staphylococcus coagulase negative probable contaminant DVT prophylaxis with SCDs Discharge Planning As per patient she continue in pain, and because pain is subjective will need to continue Pain medicine and supportive management with IV fluids. Atul Rao MD Nov 30, 2017 08:22
[2017-11-30] MEDS: SODIUM CHLORIDE 0.9% FLUSH 10 ML FLUSH IV FLUSH SCH ×2 (08:49→21:00)
[2017-11-30 12:00] VITALS: BP 146/83; PULSE 67; RESP 18; TEMP 98.5; O2SAT 97
[2017-11-30] MEDS: diphenhydrAMINE HCL 25 MG CAP PO PRN ×3 (14:59→22:45)
[2017-11-30 16:00] VITALS: BP 140/85; PULSE 69; RESP 18; TEMP 99.1; O2SAT 96
[2017-11-30 20:00] VITALS: BP 152/89; PULSE 82; RESP 18; TEMP 98.5; O2SAT 100
[2017-11-30] MEDS: ZOLPIDEM TARTRATE 5 MG TAB PO PRN (22:45)
[2017-11-30] MEDS: ACETAMINOPHEN/HYDROcodone 325 MG/7.5 MG TAB PO PRN (22:45)
[2017-12-01] VITALS: BP 152/85; PULSE 70; RESP 18; TEMP 98.6; O2SAT 98
[2017-12-01] MEDS: ACETAMINOPHEN/HYDROcodone 325 MG/10 MG TAB PO PRN ×2 (04:16→08:27)
[2017-12-01] MEDS: diphenhydrAMINE HCL 25 MG CAP PO PRN ×2 (04:16→08:28)
[2017-12-01] MEDS: SODIUM CHLOR 0.9% 1000 ML INJ 1,000 ML IV SCH (06:04)
[2017-12-01 08:00] VITALS: BP 153/73; PULSE 71; RESP 19; TEMP 98.9; O2SAT 99
[2017-12-01] MEDS: SODIUM CHLORIDE 0.9% FLUSH 10 ML FLUSH IV FLUSH SCH (08:28)
--- NOTE | 2017-12-01 09:08 | HHI.PR ---
Subjective Remarks 11/30: Janeth in her bedroom seen in the presence of nurse miss Matias as per patient continue in pain asking for the Benadryl to be given with pain medicine, was explained will need to be given before pain Medicine 30 minutes and will switch to by mouth. no rash at this time, no allergic reaction. no nausea, vomit or diarrhea, looks very comfortable. 12/01: Seen in the room in the presence of nurse Miss Chantal Mclaughlin and [employer]IP W[employer] Miss Munoz she is stable as per patient continue with Mild pain but much improved, encourage to continue drinking fluids and follow with Primary Care Physician, she states her reconciliation specialist is at [place], no nausea, vomit or diarrhea asked for Nebulizer before she goes due to Asthma, but no respiratory distress, no expiratory wheezing. Objective Vital Signs Date Time Temp Pulse Resp B/P (MAP) Pulse Ox O2 Delivery O2 Flow Rate FiO2 12/01/17 08:00 98.9 71 19 153/73 (99) 99 12/01/17 00:00 98.6 70 18 152/85 (107) 98 11/30/17 20:00 98.5 82 18 152/89 (110) 100 11/30/17 16:00 99.1 69 18 140/85 (103) 96 11/30/17 12:00 98.5 67 18 146/83 (104) 97 I/O 11/30/17 11/30/17 11/30/17 12/01/17 12/01/17 12/01/17 07:00 15:00 23:00 07:00 15:00 23:00 Intake Total 1456 ml 3200 ml 1000 ml Balance 1456 ml 3200 ml 1000 ml Intake Oral 480 ml 2200 ml IV Total 976 ml 1000 ml 1000 ml # Voids 4 5 # Bowel Movements 0 1 Result Diagram: 11/29/17 0440 11/29/17 0440 Imaging Last Impressions Chest X-Ray 11/22/17 1303 Signed Impressions: Service Date/Time: Wednesday, November 22, 2017 13:23 - CONCLUSION: No acute disease. Ernst Barry MD Procedures None Other Results Laboratory Tests Test 11/22/17 13:20 11/23/17 06:29 11/29/17 04:40 Differential Total Cells Counted 100 Neutrophils % (Manual) 62 % Lymphocytes % 27 % Monocytes % 8 % Eosinophils % 1 % Basophils % 1 % Neutrophils # (Manual) 9.6 TH/MM3 Myelocytes 1 % Nucleated Red Blood Cells 2 /100 WBC Target Cells 2+ Ovalocytes 1+ Karimi-[place] Bodies PRESENT Keratocytes 1+ Urine Color YELLOW Urine Turbidity HAZY Urine pH 6.5 Urine Specific [place] 1.015 Urine Protein TRACE mg/dL Urine Glucose (UA) NEG mg/dL Urine Ketones NEG mg/dL Urine Occult Blood NEG Urine Nitrite NEG Urine Bilirubin NEG Urine Urobilinogen 2.0 MG/DL Urine Leukocyte Esterase TRACE Urine RBC 1 /hpf Urine WBC 2 /hpf Urine Squamous Epithelial Cells 11 /hpf Urine Transitional Epithelial Cells <1 /hpf Urine Bacteria RARE /hpf Urine Hyaline Casts 3 /lpf Urine Mucus FEW /lpf Microscopic Urinalysis Comment CULT NOT INDICATED C-Reactive Protein LESS THAN 0.29 MG/DL Platelet Estimate NORMAL Platelet Morphology Comment NORMAL Sickle Cells 1+ Acanthocytes OCC Red Cell Morphology Comment Blood Urea Nitrogen 5 MG/DL 7 MG/DL Creatinine 0.62 MG/DL 0.64 MG/DL Random Glucose 86 MG/DL 84 MG/DL Total Protein 6.9 GM/DL Albumin 3.4 GM/DL Calcium Level 7.9 MG/DL 8.4 MG/DL Alkaline Phosphatase 68 U/L Aspartate Amino Transf (AST/SGOT) 32 U/L Alanine Aminotransferase (ALT/SGPT) 11 U/L Total Bilirubin 1.1 MG/DL Sodium Level 141 MEQ/L 142 MEQ/L Potassium Level 3.7 MEQ/L 3.6 MEQ/L Chloride Level 110 MEQ/L 110 MEQ/L Carbon Dioxide Level 24.3 MEQ/L 25.1 MEQ/L White Blood Count 11.8 TH/MM3 Red Blood Count 3.69 MIL/MM3 Hemoglobin 10.8 GM/DL Hematocrit 31.5 % Mean Corpuscular Volume 85.4 FL Mean Corpuscular Hemoglobin 29.1 PG Mean Corpuscular Hemoglobin Concent 34.1 % Red Cell Distribution Width 16.1 % Platelet Count 397 TH/MM3 Mean Platelet Volume 8.5 FL Neutrophils (%) (Auto) 54.6 % Lymphocytes (%) (Auto) 26.4 % Monocytes (%) (Auto) 10.7 % Eosinophils (%) (Auto) 6.9 % Basophils (%) (Auto) 1.4 % Neutrophils # (Auto) 6.4 TH/MM3 Lymphocytes # (Auto) 3.1 TH/MM3 Monocytes # (Auto) 1.3 TH/MM3 Eosinophils # (Auto) 0.8 TH/MM3 Basophils # (Auto) 0.2 TH/MM3 CBC Comment DIFF FINAL Differential Comment Reticulocyte Count 2.3 % Absolute Reticulocyte Count 86.6 MIL/L Lactate Dehydrogenase 361 U/L Anion Gap 7 MEQ/L Estimat Glomerular Filtration Rate 134 ML/MIN Objective Remarks GENERAL: Obesity. SKIN: Warm and dry. HEAD: Atraumatic. Normocephalic. EYES: Pupils equal and round. No scleral icterus. No injection or drainage. ENT: No nasal bleeding or discharge. Mucous membranes pink and moist. NECK: Trachea midline. No JVD. CARDIOVASCULAR: Regular rate and rhythm. systolic murmur. RESPIRATORY: No accessory muscle use. Clear to auscultation. Breath sounds equal bilaterally. GASTROINTESTINAL: Abdomen soft, non-tender, nondistended. Hepatic and splenic margins not palpable. MUSCULOSKELETAL: Extremities without clubbing, cyanosis, or edema. No obvious deformities. NEUROLOGICAL: Awake and alert. No obvious cranial nerve deficits. PSYCHIATRIC: Appropriate mood and affect; insight and judgment normal. Medications and IVs Current Medications Medications (Trade) Dose Ordered Sig/Pavel Route Start Time Stop Time Status Last Admin Sodium Chloride 1,000 ml @ 125 mls/hr Q8H IV 11/22/17 14:58 12/01/17 06:04 (NS Flush) 2 ml UNSCH PRN IV FLUSH 11/22/17 15:00 11/29/17 06:33 (NS Flush) 2 ml BID IV FLUSH 11/22/17 21:00 12/01/17 08:28 (Zofran Inj) 4 mg Q6H PRN IVP 11/22/17 15:00 (Narcan Inj) 0.4 mg UNSCH PRN IV PUSH 11/22/17 15:00 (Milk Of Magnesia Liq) 30 ml Q12H PRN PO 11/22/17 15:00 (Albuterol Neb) 2.5 mg Q4HR NEB PRN NEB 11/22/17 17:45 (Ambien) 5 mg HS PRN PO 11/22/17 23:00 11/30/17 22:45 (Duoneb Neb) 1 ampule Q6HR NEB PRN NEB 11/23/17 11:00 ([place] 10-325 Mg) 1 tab Q4H PRN PO 11/25/17 11:00 12/01/17 08:27 ([place] 7.5-325 Mg) 1 tab Q4H PRN PO 11/25/17 11:00 11/30/17 22:45 (Dilaudid) 1 mg Q4H PRN PO 11/28/17 14:30 11/28/17 15:31 (Pill Splitter) 1 ea UNSCH PRN OTHER 11/28/17 14:45 (Benadryl) 25 mg Q4H PRN PO 11/30/17 12:00 12/01/17 08:28 A/P Assessment and Plan (1) Anemia ICD Code: D64.9 - Anemia Status: Chronic (2) Sickle cell crisis ICD Code: D57.00 - Hb-SS disease with crisis, unspecified Status: Acute (3) Acute sickle cell crisis ICD Code: D57.00 - Hb-SS disease with crisis, unspecified Status: Resolved Discontinue IV fluids, okay to discharge Home on Home pain medicine giving scripts but will need to follow with her PCP and reconciliation specialist as outpatient, she states she has an appointment. pain medicine to by mouth to continue at home. Status post infusion of 3 units of packed red blood cells. Hemoglobin 10.8 Supplemental oxygen to keep oxygen saturation more than 92% as needed. Encourage ambulation Drug Seeking behavior Staphylococcus coagulase negative probable contaminant DVT prophylaxis with SCDs Discharge Planning Discharge home today. Atul Rao MD Dec 01, 2017 09:08
[2017-12-01] MEDS ORDERED: HYDR-3583 PO (10:04)
--- NOTE | 2017-12-01 10:12 | HHI.DS ---
Discharge Summary Admission Date Nov 22, 2017 at 15:01 Discharge Date: Dec 01, 2017 Admitting Diagnosis Sickle cell crisis (1) Anemia ICD Code: D64.9 - Anemia Diagnosis: Principal Status: Chronic (2) Sickle cell crisis ICD Code: D57.00 - Hb-SS disease with crisis, unspecified Diagnosis: Principal Status: Acute (3) Acute sickle cell crisis ICD Code: D57.00 - Hb-SS disease with crisis, unspecified Diagnosis: Principal Status: Resolved Procedures None Brief History - From Admission Mrs. Frazier is a 27 year old female. She has been having a gradual onset of a sickle cell crisis episode. Today her percocet at home is not holding her pain so she came in for evaluation. Pain level is a 10. Her Hgb level is 7.5. She will typically have a sickle cell crisis every 6 weeks on average. At baseline she transfuses at 7.0 or less. She also reports that she gets itching with IV Dilaudid but this is what is controlling her pain right now. Typically she takes Benadryl with IV Dilaudid dosing. No respiratory distress or chest pain. Her primary pain right now is in her joints. Pain control and IV hydration or her staple and have provided her benefit in the past. She has required transfusions in the past. CBC/BMP: 11/29/17 0440 11/29/17 0440 Significant Findings Laboratory Tests Test 11/29/17 04:40 White Blood Count 11.8 TH/MM3 (4.0-11.0) Red Blood Count 3.69 MIL/MM3 (4.00-5.30) Hemoglobin 10.8 GM/DL (11.6-15.3) Hematocrit 31.5 % (35.0-46.0) Monocytes (%) (Auto) 10.7 % (0.0-8.0) Eosinophils (%) (Auto) 6.9 % (0.0-4.0) Monocytes # (Auto) 1.3 TH/MM3 (0-0.9) Eosinophils # (Auto) 0.8 TH/MM3 (0-0.4) Calcium Level 8.4 MG/DL (8.5-10.1) Lactate Dehydrogenase 361 U/L (84-246) Chloride Level 110 MEQ/L (98-107) Imaging Last Impressions Chest X-Ray 11/22/17 1303 Signed Impressions: Service Date/Time: Wednesday, November 22, 2017 13:23 - CONCLUSION: No acute disease. Ernst Barry MD PE at Discharge GENERAL: Obesity. SKIN: Warm and dry. HEAD: Atraumatic. Normocephalic. EYES: Pupils equal and round. No scleral icterus. No injection or drainage. ENT: No nasal bleeding or discharge. Mucous membranes pink and moist. NECK: Trachea midline. No JVD. CARDIOVASCULAR: Regular rate and rhythm. systolic murmur. RESPIRATORY: No accessory muscle use. Clear to auscultation. Breath sounds equal bilaterally. GASTROINTESTINAL: Abdomen soft, non-tender, nondistended. Hepatic and splenic margins not palpable. MUSCULOSKELETAL: Extremities without clubbing, cyanosis, or edema. No obvious deformities. NEUROLOGICAL: Awake and alert. No obvious cranial nerve deficits. PSYCHIATRIC: Appropriate mood and affect; insight and judgment normal. Hospital Course 11/30: Janeth in her bedroom seen in the presence of nurse miss Matias as per patient continue in pain asking for the Benadryl to be given with pain medicine, was explained will need to be given before pain Medicine 30 minutes and will switch to by mouth. no rash at this time, no allergic reaction. no nausea, vomit or diarrhea, looks very comfortable. 12/01: Seen in the room in the presence of nurse Miss Chantal Mclaughlin and [employer] Alexander she is stable as per patient continue with Mild pain but much improved, encourage to continue drinking fluids and follow with Primary Care Physician, she states her transcription specialist is at [place], no nausea, vomit or diarrhea asked for Nebulizer before she goes due to Asthma, but no respiratory distress, no expiratory wheezing. Assessment and Plan (1) Anemia ICD Code: D64.9 - Anemia Status: Chronic (2) Sickle cell crisis ICD Code: D57.00 - Hb-SS disease with crisis, unspecified Status: Acute (3) Acute sickle cell crisis ICD Code: D57.00 - Hb-SS disease with crisis, unspecified Status: Resolved Obesity recommended for diet and exercise. Discontinue IV fluids, okay to discharge Home on Home pain medicine giving scripts but will need to follow with her PCP and transcription specialist as outpatient, she states she has an appointment. pain medicine to by mouth to continue at home. Status post infusion of 3 units of packed red blood cells. Hemoglobin 10.8 Supplemental oxygen to keep oxygen saturation more than 92% as needed. Encourage ambulation Drug Seeking behavior Staphylococcus coagulase negative probable contaminant DVT prophylaxis with SCDs Discharge Planning Discharge home today. Pt Condition on Discharge: Good Discharge Disposition: Discharge Home Discharge Time: > 30 minutes Discharge Instructions DIET: Follow Instructions for: As Tolerated, No Restrictions Activities you can perform: Regular-No Restrictions Atul Rao MD Dec 01, 2017 10:12
[2017-12-01] MEDS ORDERED: RESP: ALBUTEROL 2.5 MG/IPRATROPIUM 0.5 MG NEB (SCH) NEB ONE (10:15)
== END 2017-12-01 12:01 | disposition home or self-care (01) | DRG 812 ==
LOC: NEPE 11:58 → NEDA 14:59 → OBSVTOIN 15:01 → HOCA 17:40 → HOCB 11-25 02:30 → N07B 11-28 15:08
PROVIDERS: ADMIT Internal Medicine; ATTEND Internal Medicine
PROC: 30233N1 Transfusion of Nonautologous Red Blood Cells into Peripheral Vein, Percutaneous Approach (ICD-10-PCS; principal; 2017-11-23)
DX: D57.00 Hb-SS disease with crisis, unspecified (principal); I50.9 Heart failure, unspecified; D62 Acute posthemorrhagic anemia; F41.9 Anxiety disorder, unspecified; J45.909 Unspecified asthma, uncomplicated; Z76.5 Malingerer [conscious simulation]
CPT/HCPCS: 36430; 71045; 80048; 80053; 81001; 83615; 85007; 85014; 85018; 85025; 85027; 85044; 86140; 86403; 86850; 86900; 86901; 86902; 86920; 86922; 87040; 87205; 94640; 94664; 99285; J1170; J1200; J2405; J7030; J7050; J7613; P9016

== ENCOUNTER 2017-12-10 00:46 | Emergency (ER) | payer MEDICAID ==
[~2017-12-10] VITALS: Ht 165.1 cm; Wt 65.0 kg
[2017-12-10 00:56] VITALS: BP 131/86; PULSE 88; RESP 18; TEMP 98.5; O2SAT 98
[2017-12-10 02:25] LABS: BASOPHIL # 0.1 TH/MM3 (0-0.2); BASOPHIL % 0.4 % (0.0-2.0); EOSINOPHIL # 0.4 TH/MM3 (0-0.4); EOSINOPHIL % 2.5 % (0.0-4.0); HEMATOCRIT 27.1 % (35.0-46.0); HEMOGLOBIN 9.2 GM/DL (11.6-15.3); LYMPH % 24.5 % (9.0-44.0); LYMPHOCYTE # 4.2 TH/MM3 (1.0-4.8); MEAN CELL VOLUME 83.2 FL (80.0-100.0); MEAN CORPUSCULAR HEMOGLOBIN 28.1 PG (27.0-34.0); MEAN CORPUSCULAR HGB CONC 33.8 % (32.0-36.0); MEAN PLATELET VOLUME 8.4 FL (7.0-11.0); MONO % 8.7 % (0.0-8.0); MONOCYTE # 1.5 TH/MM3 (0-0.9); NEUT % 63.9 % (16.0-70.0); PLATELET COUNT 443 TH/MM3 (150-450); RED BLOOD COUNT 3.26 MIL/MM3 (4.00-5.30); RED CELL DISTRIBUTION WIDTH 15.4 % (11.6-17.2); WHITE BLOOD COUNT 17.3 TH/MM3 (4.0-11.0)
[2017-12-10 02:29] LABS: RETIC # 35.6 MIL/L (20.0-150.0); RETIC % 1.1 % (0.4-3.0)
[2017-12-10] MEDS ORDERED: SODIUM CHLOR 0.9% 1000 ML INJ 1,000 ML IV ONE (02:30)
[2017-12-10] MEDS ORDERED: ONDANSETRON HCL 4 MG/2 ML VIAL IV PUSH ONE (02:45)
[2017-12-10] MEDS ORDERED: HYDROmorphone HCL PF 1 MG/ML VIAL IV PUSH ONE (02:45)
[2017-12-10] MEDS ORDERED: diphenhydrAMINE HCL 50 MG/ML VIAL IV PUSH ONE (02:45)
[2017-12-10 02:49] LABS: ALT (GPT) 17 U/L (10-53); AST (GOT) 22 U/L (15-37); BICARBONATE 23.8 MEQ/L (21.0-32.0); BLOOD UREA NITROGEN 5 MG/DL (7-18); CALCIUM 8.4 MG/DL (8.5-10.1); CHLORIDE 110 MEQ/L (98-107); CREATININE 0.65 MG/DL (0.50-1.00); GLOMERULAR FILTRATION RATE 131 ML/MIN (>89); GLUCOSE,RANDOM 94 MG/DL (74-106); SODIUM (NA) 140 MEQ/L (136-145)
[2017-12-10 02:52] LABS: ALKALINE PHOSPHATASE 89 U/L (45-117); TOTAL BILIRUBIN ADULT 0.6 MG/DL (0.2-1.0)
[2017-12-10] MEDS ORDERED: HYDROmorphone HCL PF 2 MG/ML VIAL IV PUSH ONE (03:00)
--- NOTE | 2017-12-10 03:39 | RADRPT ---
EXAM DATE/TIME: 12/10/2017 02:55 [facility] COMPARISON: CHEST PA & LAT, November 16, 2017, 12:00. INDICATIONS : Sickle cell crisis MEDICAL HISTORY : Sickle Cell disease. Congestive heart failure. Gastroesophageal reflux disease. Hypertension SURGICAL HISTORY : Cholecystectomy. Tubal ligation. section. Infusaport. ENCOUNTER: Initial ACUITY: 1 day PAIN SCORE: 8/10 LOCATION: Bilateral chest FINDINGS: PA and lateral views of the chest demonstrate the lungs to be symmetrically aerated without evidence of mass, infiltrate or effusion. Right sided port unchanged. The cardiomediastinal contours are unre markable. Osseous structures are intact. CONCLUSION: No acute disease. Derik Gates MD on December 10, 2017 at 3:37 Board Certified Radiologist. This report was verified electronically.
--- NOTE | 2017-12-10 03:44 | PD ---
HPI . pain crisis Chief Complaint: Sickle Cell Time Seen by Provider: 01:19 Travel History International Travel<30 days: No Contact w/Intl Traveler<30days: No Traveled to known affect area: No History of Present Illness HPI Patient is a 19-year-old female who is good history of sickle cell disease she has been in our ER multiple times over the last few years sometimes she has no signs of having an acute crisis sometime she has not been anemic nor had been making her to count 2 weeks ago she was anemic and she got transfused at that time her to count was only 5. She is coming in without any signs of jaundice she does not have any yellow sclerae of her eyes she is not in any distress she is not in any acute distress she does not appear to be an acute crisis she reports pain in her femur her lower back in her pelvic area originally she says I pain all over I asked her specifically when she said yes she has femur pain back pain patient's labs are sent liter fluids given she is chest x-ray urine is ordered to rule out any infectious process and she will evaluated for anemia as well as possible of her to blast crisis PFS Past Medical History Anemia: Yes Arthritis: No Asthma: Yes Autoimmune Disease: No Blood Disorders: Yes Anxiety: Yes Depression: No Heart Rhythm Problems: No Cancer: No Cardiovascular Problems: Yes (CHF) High Cholesterol: No Chemotherapy: No Chest Pain: Yes Congestive Heart Failure: Yes COPD: No Cerebrovascular Accident: No Cystic Fibrosis: No Diabetes: No Diminished Hearing: No Endocrine: No Gastrointestinal Disorders: No GERD: No Glaucoma: No Genitourinary: No Headaches: Yes Hepatitis: No Hiatal Hernia: No Heparin Induced Thrombocytopen: No Hypertension: No Immune Disorder: No Implanted Vascular Access Dvce: Yes Kidney Stones: No Musculoskeletal: No Neurologic: Yes Psychiatric: Yes Reproductive: No Respiratory: Yes (ASTHMA) Immunizations Current: Yes Migraines: Yes Myocardial Infarction: No Pneumonia: Yes Radiation Therapy: No Renal Failure: No Seizures: No Sickle Cell Disease: Yes Sleep Apnea: No Thyroid Disease: No Ulcer: No Tetanus Vaccination: Unknown Influenza Vaccination: No PNEUMOCCOCAL Vaccine (Year): 1 ?: Not LMP: 12/09/2017 : 1 Para: 1 Miscarriage: 0 : 0 Tubal Ligation: Yes Past Surgical History Abdominal Surgery: Yes (gall stones removed) AICD: No Appendectomy: No Arteriovenous Shunt: No Body Medical Devices: R Chest Infusaport (3RD) Cardiac Surgery: No Section: Yes (X 1) Cholecystectomy: Yes Ear Surgery: No Endocrine Surgery: No Eye Surgery: No Genitourinary Surgery: No Gynecologic Surgery: Yes (c section) Hysterectomy: No Insulin Pump: No Joint Replacement: No Neurologic Surgery: No Oral Surgery: No Pacemaker: No Thoracic Surgery: No Other Surgery: Yes (R port x 3 removed x 2) Social History Alcohol Use: Yes (occ) Tobacco Use: No Substance Use: No Allergies-Medications (Allergen,Severity, Reaction): Coded Allergies: oxycodone (Verified Allergy, Intermediate, itching, 12/13/17) Reported Meds & Prescriptions Reported Meds & Active Scripts Active Hydrocodone-Acetamin 10-325 mg (Hydrocodone/Acetaminophen) 10 Mg-325 Mg Tablet 1 Tab PO Q6HR PRN DO NOT USE THIS MEDICINE IF YOU WILL DRIVE A CAR OR USE A MACHINE, ONLY USE IT WHEN RESTING AT HOME. Hydrea (Hydroxyurea) 500 Mg Cap 500 Mg PO DAILY Folic Acid 1 Mg Tablet 1 Mg PO DAILY 30 Days Reported Ambien (Zolpidem Tartrate) 5 Mg Tab 5 Mg PO HS PRN Proventil Hfa 6.7 GM Inh (Albuterol Sulfate) 90 Mcg/Act Aer 2 Puff INH Q6H PRN Review of Systems Except as stated in HPI: all other systems reviewed are Neg Physical Exam Narrative GENERAL: non toxic no sign of jaundice or yellowing of sclera SKIN: Warm and dry. HEAD: Atraumatic. Normocephalic. EYES: Pupils equal and round. No scleral icterus. No injection or drainage. ENT: No nasal bleeding or discharge. Mucous membranes pink and moist. NECK: Trachea midline. No JVD. CARDIOVASCULAR: Regular rate and rhythm. RESPIRATORY: No accessory muscle use. Clear to auscultation. Breath sounds equal bilaterally. GASTROINTESTINAL: Abdomen soft, non-tender, nondistended. Hepatic and splenic margins not palpable. MUSCULOSKELETAL: Extremities without clubbing, cyanosis, or edema. No obvious deformities. reports extremity femur distal pain bilateral NEUROLOGICAL: Awake and alert. No obvious cranial nerve deficits. Motor grossly within normal limits. Five out of 5 muscle strength in the arms and legs. Normal speech. PSYCHIATRIC: Appropriate mood and affect; insight and judgment normal. Data Data Last Documented VS Orders Orders Complete Blood Count With Diff (12/10/17 01:35) Comprehensive Metabolic Panel (12/10/17 01:35) Type And Screen (12/10/17 01:35) Retic Count (12/10/17 01:35) Sodium Chlor 0.9% 1000 Ml Inj (Ns 1000 M (12/10/17 02:30) Hydromorphone Pf Inj (Dilaudid Pf Inj) (12/10/17 02:45) Diphenhydramine Inj (Benadryl Inj) (12/10/17 02:45) Ondansetron Inj (Zofran Inj) (12/10/17 02:45) Urinalysis - C+S If Indicated (12/10/17 02:46) Chest, Pa & Lat (12/10/17 ) Hydromorphone Pf Inj (Dilaudid Pf Inj) (12/10/17 03:00) Ketorolac Inj (Toradol Inj) (12/10/17 05:00) Ed Discharge Order (12/10/17 04:59) Labs Laboratory Tests Test 12/10/17 02:15 12/10/17 03:50 White Blood Count 17.3 TH/MM3 Red Blood Count 3.26 MIL/MM3 Hemoglobin 9.2 GM/DL Hematocrit 27.1 % Mean Corpuscular Volume 83.2 FL Mean Corpuscular Hemoglobin 28.1 PG Mean Corpuscular Hemoglobin Concent 33.8 % Red Cell Distribution Width 15.4 % Platelet Count 443 TH/MM3 Mean Platelet Volume 8.4 FL Neutrophils (%) (Auto) 63.9 % Lymphocytes (%) (Auto) 24.5 % Monocytes (%) (Auto) 8.7 % Eosinophils (%) (Auto) 2.5 % Basophils (%) (Auto) 0.4 % Neutrophils # (Auto) 11.0 TH/MM3 Lymphocytes # (Auto) 4.2 TH/MM3 Monocytes # (Auto) 1.5 TH/MM3 Eosinophils # (Auto) 0.4 TH/MM3 Basophils # (Auto) 0.1 TH/MM3 CBC Comment DIFF FINAL Differential Comment Reticulocyte Count 1.1 % Absolute Reticulocyte Count 35.6 MIL/L Blood Urea Nitrogen 5 MG/DL Creatinine 0.65 MG/DL Random Glucose 94 MG/DL Total Protein 8.0 GM/DL Albumin 4.0 GM/DL Calcium Level 8.4 MG/DL Alkaline Phosphatase 89 U/L Aspartate Amino Transf (AST/SGOT) 22 U/L Alanine Aminotransferase (ALT/SGPT) 17 U/L Total Bilirubin 0.6 MG/DL Sodium Level 140 MEQ/L Potassium Level 3.1 MEQ/L Chloride Level 110 MEQ/L Carbon Dioxide Level 23.8 MEQ/L Anion Gap 6 MEQ/L Estimat Glomerular Filtration Rate 131 ML/MIN Urine Color LIGHT-YELLOW Urine Turbidity HAZY Urine pH 6.0 Urine Specific [place] 1.015 Urine Protein NEG mg/dL Urine Glucose (UA) NEG mg/dL Urine Ketones NEG mg/dL Urine Occult Blood NEG Urine Nitrite NEG Urine Bilirubin NEG Urine Urobilinogen LESS THAN 2.0 MG/DL Urine Leukocyte Esterase NEG Urine RBC LESS THAN 1 /hpf Urine WBC 2 /hpf Urine Squamous Epithelial Cells 13 /hpf Urine Bacteria RARE /hpf Urine Hyaline Casts 7 /lpf Urine Mucus FEW /lpf Microscopic Urinalysis Comment CULT NOT INDICATED MDM Medical Decision Making Medical Screen Exam Complete: Yes Emergency Medical Condition: Yes Differential Diagnosis SCD crisis vs SCD without crisisvs pain med dependence vs failing Outpt PO pain meds other Narrative Course retic count 1.1 and 05/27 H and H cxr and ua negative safe for discharge, pt received dilaudid 2 mg IVP zofran and benadryl times 1 dose while awaiting lab and urine and chest [id number] results . I offer toradol before d/c to [facility] with her PCP and pain management prtocol , she refuse and disconnected her own port and walked out without signing her D/C papers Diagnosis Primary Impression: Sickle cell anemia Patient Instructions: General Instructions, Sickle Cell Disease (DC), Sickle Cell Disease (GEN) Disposition: 01 DISCHARGE HOME Condition: Fran Wall MD Dec 10, 2017 03:44
[2017-12-10 04:09] LABS: BACTERIA, URINE RARE /hpf; BILIRUBIN, URINE NEG (NEG); BLOOD, URINE NEG (NEG); GLUCOSE,URINE NEG (NEG); HYALINE CAST, URINE 7 /lpf (RARE); KETONE, URINE NEG (NEG); MUCUS URINE FEW /lpf (OCC); NITRITE,URINE NEG (NEG); SQUAMOUS EPITHELIAL CELL URINE 13 /hpf (0-5); URINE COLOR LIGHT-YELLOW (YELLW/STRAW); URINE LEUKOCYTE ESTERASE NEG (NEG)
[2017-12-10] MEDS ORDERED: KETOROLAC TROMETHAMINE 30 MG/ML (IVP) VIAL IV PUSH ONE (05:00)
== END 2017-12-10 05:12 | disposition home or self-care (01) ==
LOC: NEPE 00:46
DX: D57.00 Hb-SS disease with crisis, unspecified (principal)
CPT/HCPCS: 71046; 80053; 81001; 85025; 85044; 86850; 86900; 86901; 86920; 86922; 96361; 96374; 96375; 99284; J1170; J1200; J2405; J7030

== ENCOUNTER 2017-12-13 10:28 | Emergency (ER) | payer MEDICAID ==
[~2017-12-13] VITALS: Ht 165.1 cm; Wt 68.0 kg
[2017-12-13 10:35] VITALS: BP 125/64; PULSE 96; RESP 18; TEMP 98.4
[2017-12-13] MEDS ORDERED: SODIUM CHLOR 0.9% 1000 ML INJ 1,000 ML IV ONE (11:19)
[2017-12-13] MEDS ORDERED: MORPHINE SULFATE 8 MG/ML INJ IV PUSH ONE (11:30)
[2017-12-13] MEDS ORDERED: SODIUM CHLORIDE 0.9% FLUSH 10 ML FLUSH IVF PRN (11:30)
[2017-12-13] MEDS ORDERED: diphenhydrAMINE HCL 50 MG/ML VIAL IV PUSH ONE (11:30)
[2017-12-13] MEDS ORDERED: ONDANSETRON HCL 4 MG/2 ML VIAL IV PUSH ONE (11:30)
--- NOTE | 2017-12-13 11:32 | PD ---
HPI Chief Complaint: Sickle Cell Time Seen by Provider: 11:13 Travel History International Travel<30 days: No Contact w/Intl Traveler<30days: No Traveled to known affect area: No History of Present Illness HPI Patient is a 27-year-old female presenting to the emergency department for what she believes is sickle cell crisis. Patient reports generalized pain all over. She states her pain is 8 out of 10, is aching and sore. There are no alleviating factors. Patient took Lortab 10 mg/325 at 7 AM and this is not giving her relief. Patient states she feels slightly short of breath but reports a history of asthma and this is normal for her. She denies any fever, chills, nausea, vomiting. She reports that her sickle cell disease is exacerbated when the weather changes and with her menstrual cycle. Her last menstrual cycle was on 29 November. Symptom onset was gradual, symptoms are moderate in nature. Patient has been in the emergency department several times over the last few weeks with the same complaint. PFSH Past Medical History Anemia: Yes (Sickle cell) Asthma: Yes Anxiety: Yes Chest Pain: Yes Congestive Heart Failure: Yes Headaches: Yes Implanted Vascular Access Dvce: Yes Immunizations Current: Yes Migraines: Yes Pneumonia: Yes Sickle Cell Disease: Yes Tetanus Vaccination: < 5 Years Influenza Vaccination: Yes PNEUMOCCOCAL Vaccine (Year): 1 ?: Not LMP: November : 1 Para: 1 Miscarriage: 0 : 0 Tubal Ligation: Yes Past Surgical History Abdominal Surgery: Yes (gall stones removed) Body Medical Devices: R Chest Infusaport (3RD) Section: Yes (X 1) Cholecystectomy: Yes Genitourinary Surgery: No Hysterectomy: No Insulin Pump: No Joint Replacement: No Neurologic Surgery: No Oral Surgery: No Pacemaker: No Thoracic Surgery: No Social History Alcohol Use: Yes (occ) Tobacco Use: No Substance Use: No Allergies-Medications (Allergen,Severity, Reaction): Coded Allergies: oxycodone (Verified Allergy, Intermediate, itching, 12/13/17) Reported Meds & Prescriptions Reported Meds & Active Scripts Active Hydrocodone-Acetamin 10-325 mg (Hydrocodone/Acetaminophen) 10 Mg-325 Mg Tablet 1 Tab PO Q6HR PRN DO NOT USE THIS MEDICINE IF YOU WILL DRIVE A CAR OR USE A MACHINE, ONLY USE IT WHEN RESTING AT HOME. Hydrea (Hydroxyurea) 500 Mg Cap 500 Mg PO DAILY Folic Acid 1 Mg Tablet 1 Mg PO DAILY 30 Days Reported Ambien (Zolpidem Tartrate) 5 Mg Tab 5 Mg PO HS PRN Proventil Hfa 6.7 GM Inh (Albuterol Sulfate) 90 Mcg/Act Aer 2 Puff INH Q6H PRN Review of Systems Except as stated in HPI: all other systems reviewed are Neg General / Constitutional: No: Fever, Chills HENT: No: Headaches Cardiovascular: No: Chest Pain or Discomfort Respiratory: Positive: Shortness of Breath, No: Cough, Wheezing Gastrointestinal: No: Nausea, Vomiting, Abdominal Pain Musculoskeletal: Positive: Myalgias, Arthralgias, Pain Skin: No Itching Neurologic: No: Weakness, Dizziness, Syncope Physical Exam Narrative GENERAL: Well-developed, well-nourished, well-appearing -[place] female. Resting comfortably no acute distress. SKIN: Warm and dry. HEAD: Atraumatic. Normocephalic. EYES: Pupils equal and round. No scleral icterus. No injection or drainage. ENT: No nasal bleeding or discharge. Mucous membranes pink and moist. NECK: Trachea midline. No JVD. CARDIOVASCULAR: Regular rate and rhythm. RESPIRATORY: No accessory muscle use. Clear to auscultation. Breath sounds equal bilaterally. GASTROINTESTINAL: Abdomen soft, non-tender, nondistended. Hepatic and splenic margins not palpable. MUSCULOSKELETAL: Extremities without clubbing, cyanosis, or edema. No obvious deformities. NEUROLOGICAL: Awake and alert. No obvious cranial nerve deficits. Motor grossly within normal limits. Five out of 5 muscle strength in the arms and legs. Normal speech. PSYCHIATRIC: Appropriate mood and affect; insight and judgment normal. Data Data Last Documented VS Vital Signs Date Time Temp Pulse Resp B/P (MAP) Pulse Ox O2 Delivery O2 Flow Rate FiO2 12/13/17 12:00 88 18 140/92 (108) 99 Room Air 12/13/17 10:35 98.4 Orders Orders Complete Blood Count With Diff (12/13/17 11:19) Comprehensive Metabolic Panel (12/13/17 11:19) Retic Count (12/13/17 11:19) Urinalysis - C+S If Indicated (12/13/17 11:19) Chest, Single Ap (12/13/17 11:19) Ecg Monitoring (12/13/17 11:19) Iv Access Insert/Monitor (12/13/17 11:19) Oximetry (12/13/17 11:19) Oxygen Administration (12/13/17 11:19) Sodium Chloride 0.9% Flush (Ns Flush) (12/13/17 11:30) Sodium Chlor 0.9% 1000 Ml Inj (Ns 1000 M (12/13/17 11:19) Morphine Inj (Morphine Inj) (12/13/17 11:30) Diphenhydramine Inj (Benadryl Inj) (12/13/17 11:30) Ondansetron Inj (Zofran Inj) (12/13/17 11:30) Troponin I (12/13/17 11:19) Ed Discharge Order (12/13/17 13:00) Labs Laboratory Tests Test 12/13/17 11:30 12/13/17 11:45 Urine Color YELLOW Urine Turbidity HAZY Urine pH 6.0 Urine Specific [place] 1.017 Urine Protein NEG mg/dL Urine Glucose (UA) NEG mg/dL Urine Ketones NEG mg/dL Urine Occult Blood NEG Urine Nitrite NEG Urine Bilirubin NEG Urine Urobilinogen LESS THAN 2.0 MG/DL Urine Leukocyte Esterase NEG Urine RBC 1 /hpf Urine WBC 2 /hpf Urine Squamous Epithelial Cells 9 /hpf Urine Bacteria FEW /hpf Urine Mucus FEW /lpf Microscopic Urinalysis Comment CULT NOT INDICATED White Blood Count 16.8 TH/MM3 Red Blood Count 2.93 MIL/MM3 Hemoglobin 8.4 GM/DL Hematocrit 24.5 % Mean Corpuscular Volume 83.6 FL Mean Corpuscular Hemoglobin 28.7 PG Mean Corpuscular Hemoglobin Concent 34.4 % Red Cell Distribution Width 15.2 % Platelet Count 468 TH/MM3 Mean Platelet Volume 8.2 FL Neutrophils (%) (Auto) 63.6 % Lymphocytes (%) (Auto) 24.6 % Monocytes (%) (Auto) 8.2 % Eosinophils (%) (Auto) 2.1 % Basophils (%) (Auto) 1.5 % Neutrophils # (Auto) 10.7 TH/MM3 Lymphocytes # (Auto) 4.1 TH/MM3 Monocytes # (Auto) 1.4 TH/MM3 Eosinophils # (Auto) 0.4 TH/MM3 Basophils # (Auto) 0.2 TH/MM3 CBC Comment AUTO DIFF Differential Total Cells Counted 100 Neutrophils % (Manual) 62 % Band Neutrophils % 4 % Lymphocytes % 23 % Monocytes % 5 % Basophils % 4 % Neutrophils # (Manual) 11.4 TH/MM3 Myelocytes 2 % Differential Comment FINAL DIFF MANUAL Platelet Estimate HIGH Platelet Morphology Comment NORMAL Target Cells 1+ Ovalocytes 1+ Red Cell Morphology Comment Reticulocyte Count 1.8 % Absolute Reticulocyte Count 51.8 MIL/L Blood Urea Nitrogen 10 MG/DL Creatinine 0.65 MG/DL Random Glucose 95 MG/DL Total Protein 7.6 GM/DL Albumin 3.6 GM/DL Calcium Level 8.4 MG/DL Alkaline Phosphatase 97 U/L Aspartate Amino Transf (AST/SGOT) 27 U/L Alanine Aminotransferase (ALT/SGPT) 14 U/L Total Bilirubin 0.7 MG/DL Sodium Level 142 MEQ/L Potassium Level 4.0 MEQ/L Chloride Level 111 MEQ/L Carbon Dioxide Level 24.8 MEQ/L Anion Gap 6 MEQ/L Estimat Glomerular Filtration Rate 131 ML/MIN Troponin I LESS THAN 0.02 NG/ML MDM Medical Decision Making Medical Screen Exam Complete: Yes Emergency Medical Condition: Yes Medical Record Reviewed: Yes Interpretation(s) Last Impressions Chest X-Ray 12/13/17 1119 Signed Impressions: Service Date/Time: Wednesday, December 13, 2017 11:25 - CONCLUSION: No acute disease. Madi Diego MD FACR Laboratory Tests Test 12/13/17 11:30 12/13/17 11:45 Urine Color YELLOW Urine Turbidity HAZY Urine pH 6.0 Urine Specific [place] 1.017 Urine Protein NEG mg/dL Urine Glucose (UA) NEG mg/dL Urine Ketones NEG mg/dL Urine Occult Blood NEG Urine Nitrite NEG Urine Bilirubin NEG Urine Urobilinogen LESS THAN 2.0 MG/DL Urine Leukocyte Esterase NEG Urine RBC 1 /hpf Urine WBC 2 /hpf Urine Squamous Epithelial Cells 9 /hpf Urine Bacteria FEW /hpf Urine Mucus FEW /lpf Microscopic Urinalysis Comment CULT NOT INDICATED White Blood Count 16.8 TH/MM3 Red Blood Count 2.93 MIL/MM3 Hemoglobin 8.4 GM/DL Hematocrit 24.5 % Mean Corpuscular Volume 83.6 FL Mean Corpuscular Hemoglobin 28.7 PG Mean Corpuscular Hemoglobin Concent 34.4 % Red Cell Distribution Width 15.2 % Platelet Count 468 TH/MM3 Mean Platelet Volume 8.2 FL Neutrophils (%) (Auto) 63.6 % Lymphocytes (%) (Auto) 24.6 % Monocytes (%) (Auto) 8.2 % Eosinophils (%) (Auto) 2.1 % Basophils (%) (Auto) 1.5 % Neutrophils # (Auto) 10.7 TH/MM3 Lymphocytes # (Auto) 4.1 TH/MM3 Monocytes # (Auto) 1.4 TH/MM3 Eosinophils # (Auto) 0.4 TH/MM3 Basophils # (Auto) 0.2 TH/MM3 CBC Comment AUTO DIFF Differential Total Cells Counted 100 Neutrophils % (Manual) 62 % Band Neutrophils % 4 % Lymphocytes % 23 % Monocytes % 5 % Basophils % 4 % Neutrophils # (Manual) 11.4 TH/MM3 Myelocytes 2 % Differential Comment FINAL DIFF MANUAL Platelet Estimate HIGH Platelet Morphology Comment NORMAL Target Cells 1+ Ovalocytes 1+ Red Cell Morphology Comment Reticulocyte Count 1.8 % Absolute Reticulocyte Count 51.8 MIL/L Blood Urea Nitrogen 10 MG/DL Creatinine 0.65 MG/DL Random Glucose 95 MG/DL Total Protein 7.6 GM/DL Albumin 3.6 GM/DL Calcium Level 8.4 MG/DL Alkaline Phosphatase 97 U/L Aspartate Amino Transf (AST/SGOT) 27 U/L Alanine Aminotransferase (ALT/SGPT) 14 U/L Total Bilirubin 0.7 MG/DL Sodium Level 142 MEQ/L Potassium Level 4.0 MEQ/L Chloride Level 111 MEQ/L Carbon Dioxide Level 24.8 MEQ/L Anion Gap 6 MEQ/L Estimat Glomerular Filtration Rate 131 ML/MIN Troponin I LESS THAN 0.02 NG/ML Vital Signs Date Time Temp Pulse Resp B/P (MAP) Pulse Ox O2 Delivery O2 Flow Rate FiO2 12/13/17 10:35 98.4 96 18 125/64 (84) Differential Diagnosis Sickle cell anemia versus sickle cell crisis versus metabolic abnormality versus malingering versus other Narrative Course Patient is a 27-year-old female presented to the emergency department for evaluation of a possible sickle cell crisis as evidenced by generalized pain. Patient has been in the emergency department several times over the last few weeks with the same complaint. Upon review of medical records reticulocyte count has been normal. Patient was admitted several weeks ago and was transfused. Labs, medications, chest x-ray ordered and pending. IV access established, patient placed on temperature monitoring continuous pulse oximetry. Oxygen ordered for therapeutic reasons only. Patient is well oxygenated on room air. CBC with no acute findings, reticulocyte count and absolute reticulocyte count are within normal limits. Hemoglobin is stable at 8.4. Chemistry is unremarkable Urinalysis is unremarkable Chest x-ray with no acute disease Patient will be discharged home, she is encouraged to follow-up with her primary doctor and intertype operator. She was reassured that there were no acute findings at this time. Patient stable for discharge. Diagnosis Primary Impression: Sickle cell anemia Qualified Codes: D57.1 - Sickle-cell disease without crisis Referrals: Oncologist Primary Care Physician Patient Instructions: General Instructions, Sickle Cell Disease (DC) Additional Instructions: Follow-up with your primary doctor Follow-up with your intertype operator Maintain adequate fluid intake Continue home medications as previously prescribed Return to emergency department for any new or worsening symptoms Med/Other Pt SpecificInfo: No Change to Meds Disposition: 01 DISCHARGE HOME Condition: Stable Tricia Villavicencio Dec 13, 2017 11:32
--- NOTE | 2017-12-13 11:50 | RADRPT ---
EXAM DATE/TIME: 12/13/2017 11:25 [facility] COMPARISON: CHEST SINGLE AP, November 22, 2017, 13:23. INDICATIONS : Short of breath MEDICAL HISTORY : Venous insufficiency. Sickle Cell disease. Congestive heart failure. Gastroesophageal reflux, d isease. Hypertension SURGICAL HISTORY : Cholecystectomy. Tubal ligation. section. Infusaport ENCOUNTER: Initial ACUITY: 1 day PAIN SCORE: 0/10 LOCATION: chest FINDINGS: [id number] in good position.. The cardiomediastinal contours are unremarkable. Osseous structure s are intact. CONCLUSION: No acute disease. Madi Diego MD FACR on December 13, 2017 at 11:48 Board Certified Radiologist. This report was verified electronically.
[2017-12-13 12:00] VITALS: BP 140/92; PULSE 88; PULSE 98; RESP 18; O2SAT 99
[2017-12-13 12:01] LABS: AUTOMATED NEUTROPHIL # 10.7 TH/MM3 (1.8-7.7); BASOPHIL # 0.2 TH/MM3 (0-0.2); BASOPHIL % 1.5 % (0.0-2.0); EOSINOPHIL # 0.4 TH/MM3 (0-0.4); EOSINOPHIL % 2.1 % (0.0-4.0); HEMATOCRIT 24.5 % (35.0-46.0); HEMOGLOBIN 8.4 GM/DL (11.6-15.3); LYMPH % 24.6 % (9.0-44.0); LYMPHOCYTE # 4.1 TH/MM3 (1.0-4.8); MEAN CELL VOLUME 83.6 FL (80.0-100.0); MEAN CORPUSCULAR HEMOGLOBIN 28.7 PG (27.0-34.0); MEAN CORPUSCULAR HGB CONC 34.4 % (32.0-36.0); MEAN PLATELET VOLUME 8.2 FL (7.0-11.0); MONO % 8.2 % (0.0-8.0); MONOCYTE # 1.4 TH/MM3 (0-0.9); NEUT % 63.6 % (16.0-70.0); PLATELET COUNT 468 TH/MM3 (150-450); RED BLOOD COUNT 2.93 MIL/MM3 (4.00-5.30); RED CELL DISTRIBUTION WIDTH 15.2 % (11.6-17.2); RETIC # 51.8 MIL/L (20.0-150.0); RETIC % 1.8 % (0.4-3.0); WHITE BLOOD COUNT 16.8 TH/MM3 (4.0-11.0)
[2017-12-13 12:11] LABS: BACTERIA, URINE FEW /hpf; BILIRUBIN, URINE NEG (NEG); BLOOD, URINE NEG (NEG); GLUCOSE,URINE NEG (NEG); KETONE, URINE NEG (NEG); MUCUS URINE FEW /lpf (OCC); NITRITE,URINE NEG (NEG); SQUAMOUS EPITHELIAL CELL URINE 9 /hpf (0-5); URINE COLOR YELLOW (YELLW/STRAW); URINE LEUKOCYTE ESTERASE NEG (NEG)
[2017-12-13 12:37] LABS: ALBUMIN 3.6 GM/DL (3.4-5.0); BICARBONATE 24.8 MEQ/L (21.0-32.0); CALCIUM 8.4 MG/DL (8.5-10.1); TOTAL PROTEIN 7.6 GM/DL (6.4-8.2); TROPONIN I LESS THAN 0.02 NG/ML (0.02-0.05)
[2017-12-13 12:41] LABS: ALT (GPT) 14 U/L (10-53); AST (GOT) 27 U/L (15-37); BLOOD UREA NITROGEN 10 MG/DL (7-18); CHLORIDE 111 MEQ/L (98-107); CREATININE 0.65 MG/DL (0.50-1.00); GLOMERULAR FILTRATION RATE 131 ML/MIN (>89); GLUCOSE,RANDOM 95 MG/DL (74-106); TOTAL BILIRUBIN ADULT 0.7 MG/DL (0.2-1.0)
[2017-12-13 12:42] LABS: ALKALINE PHOSPHATASE 97 U/L (45-117); SODIUM (NA) 142 MEQ/L (136-145)
[2017-12-13 12:54] LABS: BANDS 4 % (0-6); BASOPHILS 4 % (0-2); LYMPHOCYTES 23 % (9-44); MONOCYTES 5 % (0-8); MYELOCYTES 2 % (0-0); NEUTROPHIL # MANUAL DIFF 11.4 TH/MM3 (1.8-7.7); OVALOCYTES 1+ (NORMAL); POLYS (SEG NEUTROPHILS) 62 % (16-70)
[2017-12-13 12:55] LABS: TARGET CELLS 1+ (NORMAL)
== END 2017-12-13 13:42 | disposition home or self-care (01) ==
LOC: NEPC 10:28
DX: D57.1 Sickle-cell disease without crisis (principal); R52 Pain, unspecified; R06.02 Shortness of breath; F41.9 Anxiety disorder, unspecified; I50.9 Heart failure, unspecified; J45.909 Unspecified asthma, uncomplicated; I11.0 Hypertensive heart disease with heart failure
CPT/HCPCS: 71045; 80053; 81001; 84484; 85007; 85027; 85044; 96361; 96374; 96375; 99284; J1200; J1642; J2270; J2405; J7030

== ENCOUNTER 2017-12-27 09:04 | Emergency (ER) | payer MEDICAID ==
[~2017-12-27] VITALS: Ht 165.1 cm; Wt 66.0 kg
[2017-12-27 09:07] VITALS: BP 113/70; PULSE 105; RESP 18; TEMP 99.2; O2SAT 98
[2017-12-27] MEDS ORDERED: SODIUM CHLOR 0.9% 1000 ML INJ 1,000 ML IV ONE (10:10)
[2017-12-27] MEDS ORDERED: MORPHINE SULFATE 4 MG/ML INJ IV PUSH ONE (10:15)
[2017-12-27] MEDS ORDERED: diphenhydrAMINE HCL 50 MG/ML VIAL IV PUSH ONE (10:15)
[2017-12-27] MEDS ORDERED: SODIUM CHLORIDE 0.9% FLUSH 10 ML FLUSH IVF PRN (10:15)
[2017-12-27] MEDS ORDERED: ONDANSETRON HCL 4 MG/2 ML VIAL IVP ONE (10:15)
--- NOTE | 2017-12-27 10:19 | PD ---
HPI Chief Complaint: Sickle Cell Time Seen by Provider: 10:00 Travel History International Travel<30 days: No Contact w/Intl Traveler<30days: No Traveled to known affect area: No History of Present Illness HPI 27-year-old female complains of pain all over the body. Patient has history of sickle cell disease. Patient states that the pain started 2 days ago. Patient denies any fever. Patient states that she has occasional chills at home. Patient states that she has a mild dry cough recently. Patient denies abdominal pain. Patient denies any nausea vomiting diarrhea. Patient denies any dysuria frequency. Patient denies any vaginal discharge or bleeding. Patient has been to the emergency room multiple times in the past for sickle cell painful crisis. Patient has been taking hydrocodone 10 at home for pain. PFSH Past Medical History Anemia: Yes (Sickle cell) Asthma: Yes Autoimmune Disease: Yes (SICKLE CELL) Blood Disorders: Yes Anxiety: Yes Cardiovascular Problems: Yes (CHF) Chest Pain: Yes Congestive Heart Failure: Yes Diminished Hearing: No Headaches: Yes Implanted Vascular Access Dvce: Yes Neurologic: Yes Psychiatric: Yes Respiratory: Yes (ASTHMA) Immunizations Current: Yes Migraines: Yes Pneumonia: Yes Sickle Cell Disease: Yes PNEUMOCCOCAL Vaccine (Year): 1 ?: Not LMP: 12/26/17 : 1 Para: 1 Miscarriage: 0 : 0 Tubal Ligation: Yes Past Surgical History Abdominal Surgery: Yes (gall stones removed) Body Medical Devices: R Chest Infusaport (3RD) Section: Yes (X 1) Cholecystectomy: Yes Genitourinary Surgery: No Gynecologic Surgery: Yes (c section) Hysterectomy: No Insulin Pump: No Joint Replacement: No Neurologic Surgery: No Oral Surgery: No Pacemaker: No Thoracic Surgery: No Other Surgery: Yes (R port x 3 removed x 2) Social History Alcohol Use: Yes (occ) Tobacco Use: No Substance Use: No Allergies-Medications (Allergen,Severity, Reaction): Coded Allergies: oxycodone (Verified Allergy, Intermediate, itching, 12/13/17) Reported Meds & Prescriptions Reported Meds & Active Scripts Active Hydrocodone-Acetamin 10-325 mg (Hydrocodone/Acetaminophen) 10 Mg-325 Mg Tablet 1 Tab PO Q6HR PRN DO NOT USE THIS MEDICINE IF YOU WILL DRIVE A CAR OR USE A MACHINE, ONLY USE IT WHEN RESTING AT HOME. Hydrea (Hydroxyurea) 500 Mg Cap 500 Mg PO DAILY Folic Acid 1 Mg Tablet 1 Mg PO DAILY 30 Days Reported Ambien (Zolpidem Tartrate) 5 Mg Tab 5 Mg PO HS PRN Proventil Hfa 6.7 GM Inh (Albuterol Sulfate) 90 Mcg/Act Aer 2 Puff INH Q6H PRN Review of Systems General / Constitutional: No: Fever Eyes: No: Visual changes HENT: No: Headaches Cardiovascular: No: Chest Pain or Discomfort Respiratory: No: Shortness of Breath Gastrointestinal: No: Abdominal Pain Genitourinary: No: Dysuria Musculoskeletal: Positive: Pain Skin: No Rash Neurologic: No: Weakness Psychiatric: No: Depression Endocrine: No: Polydipsia Hematologic/Lymphatic: No: Easy Bruising Physical Exam Narrative GENERAL: Well-nourished, well-developed patient. SKIN: Focused skin assessment warm/dry. HEAD: Normocephalic. EYES: No scleral icterus. No injection or drainage. NECK: Supple, trachea midline. No JVD or lymphadenopathy. CARDIOVASCULAR: Regular rate and rhythm without murmurs, gallops, or rubs. RESPIRATORY: Breath sounds equal bilaterally. No accessory muscle use. GASTROINTESTINAL: Abdomen soft, non-tender, nondistended. MUSCULOSKELETAL: No cyanosis, or edema. BACK: Nontender without obvious deformity. No CVA tenderness. Neurologic exam normal. Data Data Last Documented VS Vital Signs Date Time Temp Pulse Resp B/P (MAP) Pulse Ox O2 Delivery O2 Flow Rate FiO2 12/27/17 11:22 75 20 92/51 (65) 100 Room Air 12/27/17 09:07 99.2 Orders Orders Complete Blood Count With Diff (12/27/17 10:10) Retic Count (12/27/17 10:10) Ecg Monitoring (12/27/17 10:10) Iv Access Insert/Monitor (12/27/17 10:10) Oximetry (12/27/17 10:10) Ondansetron Inj (Zofran Inj) (12/27/17 10:15) Sodium Chloride 0.9% Flush (Ns Flush) (12/27/17 10:15) Sodium Chlor 0.9% 1000 Ml Inj (Ns 1000 M (12/27/17 10:10) Diphenhydramine Inj (Benadryl Inj) (12/27/17 10:15) Morphine Inj (Morphine Inj) (12/27/17 10:15) Morphine Inj (Morphine Inj) (12/27/17 11:45) Ketorolac Inj (Toradol Inj) (12/27/17 11:45) Labs Laboratory Tests Test 12/27/17 10:27 White Blood Count 16.1 TH/MM3 Red Blood Count 2.98 MIL/MM3 Hemoglobin 8.3 GM/DL Hematocrit 24.6 % Mean Corpuscular Volume 82.7 FL Mean Corpuscular Hemoglobin 28.0 PG Mean Corpuscular Hemoglobin Concent 33.9 % Red Cell Distribution Width 15.8 % Platelet Count 486 TH/MM3 Mean Platelet Volume 9.0 FL Neutrophils (%) (Auto) 68.5 % Lymphocytes (%) (Auto) 18.4 % Monocytes (%) (Auto) 8.2 % Eosinophils (%) (Auto) 4.3 % Basophils (%) (Auto) 0.6 % Neutrophils # (Auto) 11.0 TH/MM3 Lymphocytes # (Auto) 3.0 TH/MM3 Monocytes # (Auto) 1.3 TH/MM3 Eosinophils # (Auto) 0.7 TH/MM3 Basophils # (Auto) 0.1 TH/MM3 CBC Comment AUTO DIFF Differential Comment AUTO DIFF CONFIRMED Keratocytes OCC Reticulocyte Count 4.3 % Absolute Reticulocyte Count 127.9 MIL/L MDM Medical Decision Making Medical Screen Exam Complete: Yes Emergency Medical Condition: Yes Interpretation(s) 11:27 AM. CBC WBC 16.1. Hemoglobin 8.3 hematocrit 24.6. Platelet 486. Reticulocyte count 4.3. Differential Diagnosis Differential diagnosis including sickle cell painful crisis, anemia. Narrative Course 27-year-old female with complaints of body pain. History of sickle cell disease. History of frequent sickle cell pain crisis. Normal saline solution 1 L IV bolus. Morphine 4 mg IV. Zofran 4 mg IV. Benadryl 25 mg IV. Morphine 2 mg IV. Toradol 30 mg IV. Diagnosis Primary Impression: Sickle cell pain crisis Patient Instructions: General Instructions Additional Instructions: Continue with hydrocodone at home for pain. Encourage p.o. fluid. Follow-up with personal physician. Med/Other Pt SpecificInfo: No Change to Meds Disposition: 01 DISCHARGE HOME Condition: Stable Christian Rubio MD Dec 27, 2017 10:19
[2017-12-27 10:23] VITALS: PULSE 91; RESP 18; O2SAT 96
[2017-12-27 10:47] LABS: BASOPHIL # 0.1 TH/MM3 (0-0.2); BASOPHIL % 0.6 % (0.0-2.0); EOSINOPHIL # 0.7 TH/MM3 (0-0.4); EOSINOPHIL % 4.3 % (0.0-4.0); HEMATOCRIT 24.6 % (35.0-46.0); HEMOGLOBIN 8.3 GM/DL (11.6-15.3); LYMPH % 18.4 % (9.0-44.0); MEAN CELL VOLUME 82.7 FL (80.0-100.0); MEAN CORPUSCULAR HGB CONC 33.9 % (32.0-36.0); MONO % 8.2 % (0.0-8.0); MONOCYTE # 1.3 TH/MM3 (0-0.9); NEUT % 68.5 % (16.0-70.0); PLATELET COUNT 486 TH/MM3 (150-450); RED BLOOD COUNT 2.98 MIL/MM3 (4.00-5.30); RED CELL DISTRIBUTION WIDTH 15.8 % (11.6-17.2); RETIC # 127.9 MIL/L (20.0-150.0); RETIC % 4.3 % (0.4-3.0); WHITE BLOOD COUNT 16.1 TH/MM3 (4.0-11.0)
[2017-12-27 11:22] VITALS: BP 92/51; PULSE 75; RESP 20; O2SAT 100
[2017-12-27 11:39] LABS: KERATOCYTES OCC (NORMAL)
[2017-12-27] MEDS ORDERED: MORPHINE SULFATE 2 MG/ML SYRINGE IV PUSH ONE (11:45)
[2017-12-27] MEDS ORDERED: KETOROLAC TROMETHAMINE 30 MG/ML (IVP) VIAL IV PUSH ONE (11:45)
== END 2017-12-27 12:25 | disposition home or self-care (01) ==
LOC: NEPC 09:04
DX: D57.00 Hb-SS disease with crisis, unspecified (principal); J45.909 Unspecified asthma, uncomplicated; F41.9 Anxiety disorder, unspecified; I50.9 Heart failure, unspecified; Z88.5 Allergy status to narcotic agent; Z79.899 Other long term (current) drug therapy
CPT/HCPCS: 85025; 85044; 96361; 96374; 96375; 96376; 99284; J1200; J1885; J2270; J2405; J7030

== ENCOUNTER 2018-01-07 04:12 | Inpatient (IN) | payer MEDICAID ==
[~2018-01-07] VITALS: Ht 165.1 cm; Wt 67.6 kg
[2018-01-07 04:17] VITALS: BP 128/85; PULSE 108; RESP 18; TEMP 98.4; O2SAT 100
[2018-01-07] MEDS ORDERED: diphenhydrAMINE HCL 25 MG CAP PO ONE (05:00)
[2018-01-07] MEDS ORDERED: ONDANSETRON ODT 4 MG TAB PO ONE (05:00)
[2018-01-07] MEDS ORDERED: SODIUM CHLOR 0.9% 1000 ML INJ 1,000 ML IV ONE (05:00)
[2018-01-07] MEDS ORDERED: MORPHINE SULFATE 4 MG/ML INJ IV PUSH ONE ×2 (05:00→06:00)
[2018-01-07 05:23] LABS: AUTOMATED NEUTROPHIL # 9.7 TH/MM3 (1.8-7.7); BASOPHIL # 0.2 TH/MM3 (0-0.2); BASOPHIL % 1.3 % (0.0-2.0); EOSINOPHIL # 0.6 TH/MM3 (0-0.4); EOSINOPHIL % 3.4 % (0.0-4.0); HEMATOCRIT 21.6 % (35.0-46.0); HEMOGLOBIN 8.1 GM/DL (11.6-15.3); LYMPH % 31.5 % (9.0-44.0); LYMPHOCYTE # 5.8 TH/MM3 (1.0-4.8); MEAN CELL VOLUME 85.1 FL (80.0-100.0); MEAN CORPUSCULAR HEMOGLOBIN 31.9 PG (27.0-34.0); MONO % 11.3 % (0.0-8.0); MONOCYTE # 2.1 TH/MM3 (0-0.9); NEUT % 52.5 % (16.0-70.0); PLATELET COUNT 435 TH/MM3 (150-450); RED BLOOD COUNT 2.53 MIL/MM3 (4.00-5.30); RED CELL DISTRIBUTION WIDTH 16.1 % (11.6-17.2); RETIC # 227.2 MIL/L (20.0-150.0); WHITE BLOOD COUNT 18.5 TH/MM3 (4.0-11.0)
[2018-01-07 05:24] LABS: MEAN CORPUSCULAR HGB CONC 37.5 % (32.0-36.0)
[2018-01-07 05:39] LABS: ALKALINE PHOSPHATASE 96 U/L (45-117); TOTAL BILIRUBIN ADULT 1.5 MG/DL (0.2-1.0)
[2018-01-07 05:49] LABS: ALBUMIN 3.6 GM/DL (3.4-5.0); ALT (GPT) 20 U/L (10-53); AST (GOT) 50 U/L (15-37); BICARBONATE 24.3 MEQ/L (21.0-32.0); CALCIUM 7.9 MG/DL (8.5-10.1); CHLORIDE 110 MEQ/L (98-107); GLOMERULAR FILTRATION RATE 121 ML/MIN (>89); GLUCOSE,RANDOM 102 MG/DL (74-106); SODIUM (NA) 143 MEQ/L (136-145)
[2018-01-07 05:54] LABS: BANDS 4 % (0-6); BASOPHILS 1 % (0-2); LYMPHOCYTES 28 % (9-44); MONOCYTES 5 % (0-8); NEUTROPHIL # MANUAL DIFF 11.5 TH/MM3 (1.8-7.7); POLYS (SEG NEUTROPHILS) 58 % (16-70)
[2018-01-07 05:55] LABS: HOWELL-JOLLY BODIES PRESENT (NONE SEEN)
[2018-01-07 06:13] LABS: BLOOD UREA NITROGEN 8 MG/DL (7-18); TOTAL PROTEIN 7.4 GM/DL (6.4-8.2)
--- NOTE | 2018-01-07 06:27 | PD ---
HPI Chief Complaint: Sickle Cell Time Seen by Provider: 04:26 Travel History International Travel<30 days: No Contact w/Intl Traveler<30days: No Traveled to known affect area: No History of Present Illness HPI Patient is a 27-year-old female who comes in complaining of sickle cell pain. She says for the past few days she has had pain all over with nausea and vomiting. She says she has tried her pain medicine at home without relief. She denies fever, but says she has had chills. She denies any chest pain or shortness of breath. She says the symptoms are typical of her sickle cell pain. Severity is mild to moderate. PFSH Past Medical History Anemia: Yes (Sickle cell) Asthma: Yes Autoimmune Disease: Yes (SICKLE CELL) Blood Disorders: Yes Anxiety: Yes Cardiovascular Problems: Yes (CHF) Chest Pain: Yes Congestive Heart Failure: Yes Diminished Hearing: No Headaches: Yes Implanted Vascular Access Dvce: Yes Neurologic: Yes Psychiatric: Yes Respiratory: Yes (ASTHMA) Immunizations Current: Yes Migraines: Yes Pneumonia: Yes Sickle Cell Disease: Yes Tetanus Vaccination: Unknown Influenza Vaccination: Yes PNEUMOCCOCAL Vaccine (Year): 1 ?: Not LMP: 12/28/2017 : 1 Para: 1 Miscarriage: 0 : 0 Tubal Ligation: Yes Past Surgical History Abdominal Surgery: Yes (gall stones removed) Body Medical Devices: R Chest Infusaport (3RD) Section: Yes (X 1) Cholecystectomy: Yes Genitourinary Surgery: No Gynecologic Surgery: Yes (c section) Hysterectomy: No Insulin Pump: No Joint Replacement: No Neurologic Surgery: No Oral Surgery: No Pacemaker: No Thoracic Surgery: No Other Surgery: Yes (R port x 3 removed x 2) Social History Alcohol Use: Yes (occ) Tobacco Use: No Substance Use: No Allergies-Medications (Allergen,Severity, Reaction): Coded Allergies: oxycodone (Verified Allergy, Intermediate, itching, 01/07/18) Reported Meds & Prescriptions Reported Meds & Active Scripts Active Hydrocodone-Acetamin 10-325 mg (Hydrocodone/Acetaminophen) 10 Mg-325 Mg Tablet 1 Tab PO Q6HR PRN DO NOT USE THIS MEDICINE IF YOU WILL DRIVE A CAR OR USE A MACHINE, ONLY USE IT WHEN RESTING AT HOME. Hydrea (Hydroxyurea) 500 Mg Cap 500 Mg PO DAILY Folic Acid 1 Mg Tablet 1 Mg PO DAILY 30 Days Reported Ambien (Zolpidem Tartrate) 5 Mg Tab 5 Mg PO HS PRN Proventil Hfa 6.7 GM Inh (Albuterol Sulfate) 90 Mcg/Act Aer 2 Puff INH Q6H PRN Review of Systems Except as stated in HPI: all other systems reviewed are Neg General / Constitutional: Positive: Chills, No: Fever HENT: No: Headaches, Lightheadedness Cardiovascular: No: Chest Pain or Discomfort Respiratory: No: Shortness of Breath Gastrointestinal: Positive: Nausea, Vomiting Musculoskeletal: Positive: Myalgias, Arthralgias Skin: No Rash, No Change in Pigmentation Neurologic: No: Weakness, Dizziness Physical Exam Narrative GENERAL: Awake and alert, in no acute distress. SKIN: Focused skin assessment warm/dry. No wounds or signs of infection. HEAD: Atraumatic. Normocephalic. EYES: Pupils equal and round. No scleral icterus. ENT: Mucous membranes pink and moist. NECK: Trachea midline. No JVD. CARDIOVASCULAR: Regular rate and rhythm. No murmur appreciated. RESPIRATORY: No accessory muscle use. Clear to auscultation. Breath sounds equal bilaterally. GASTROINTESTINAL: Abdomen soft, non-tender, nondistended. MUSCULOSKELETAL: No obvious deformities. No clubbing. No cyanosis. No edema. NEUROLOGICAL: Awake and alert. No obvious cranial nerve deficits. Motor grossly within normal limits. Normal speech. PSYCHIATRIC: Appropriate mood and affect; insight and judgment normal. Data Data Last Documented VS Vital Signs Date Time Temp Pulse Resp B/P (MAP) Pulse Ox O2 Delivery O2 Flow Rate FiO2 01/07/18 04:17 98.4 108 18 128/85 (99) 100 Orders Orders Complete Blood Count With Diff (01/07/18 04:47) Comprehensive Metabolic Panel (01/07/18 04:47) Retic Count (01/07/18 04:47) Sodium Chlor 0.9% 1000 Ml Inj (Ns 1000 M (01/07/18 05:00) Ondansetron Odt (Zofran Odt) (01/07/18 05:00) Diphenhydramine (Benadryl) (01/07/18 05:00) Morphine Inj (Morphine Inj) (01/07/18 05:00) Ed Urine Pregnancytest Poc (01/07/18 04:47) Morphine Inj (Morphine Inj) (01/07/18 06:00) Labs Laboratory Tests Test 01/07/18 05:00 White Blood Count 18.5 TH/MM3 Red Blood Count 2.53 MIL/MM3 Hemoglobin 8.1 GM/DL Hematocrit 21.6 % Mean Corpuscular Volume 85.1 FL Mean Corpuscular Hemoglobin 31.9 PG Mean Corpuscular Hemoglobin Concent 37.5 % Red Cell Distribution Width 16.1 % Platelet Count 435 TH/MM3 Mean Platelet Volume 8.0 FL Neutrophils (%) (Auto) 52.5 % Lymphocytes (%) (Auto) 31.5 % Monocytes (%) (Auto) 11.3 % Eosinophils (%) (Auto) 3.4 % Basophils (%) (Auto) 1.3 % Neutrophils # (Auto) 9.7 TH/MM3 Lymphocytes # (Auto) 5.8 TH/MM3 Monocytes # (Auto) 2.1 TH/MM3 Eosinophils # (Auto) 0.6 TH/MM3 Basophils # (Auto) 0.2 TH/MM3 CBC Comment AUTO DIFF Differential Total Cells Counted 100 Neutrophils % (Manual) 58 % Band Neutrophils % 4 % Lymphocytes % 28 % Monocytes % 5 % Eosinophils % 4 % Basophils % 1 % Neutrophils # (Manual) 11.5 TH/MM3 Differential Comment FINAL DIFF MANUAL Platelet Estimate NORMAL Platelet Morphology Comment NORMAL [place] Bodies PRESENT Reticulocyte Count 9.0 % Absolute Reticulocyte Count 227.2 MIL/L Blood Urea Nitrogen 8 MG/DL Creatinine 0.70 MG/DL Random Glucose 102 MG/DL Total Protein 7.4 GM/DL Albumin 3.6 GM/DL Calcium Level 7.9 MG/DL Alkaline Phosphatase 96 U/L Aspartate Amino Transf (AST/SGOT) 50 U/L Alanine Aminotransferase (ALT/SGPT) 20 U/L Total Bilirubin 1.5 MG/DL Sodium Level 143 MEQ/L Potassium Level 3.8 MEQ/L Chloride Level 110 MEQ/L Carbon Dioxide Level 24.3 MEQ/L Anion Gap 9 MEQ/L Estimat Glomerular Filtration Rate 121 ML/MIN [facility] Medical Decision Making Medical Screen Exam Complete: Yes Emergency Medical Condition: Yes Medical Record Reviewed: Yes Differential Diagnosis Sickle cell crisis versus anemia versus dehydration versus electrolyte abnormality Narrative Course Patient is a 27-year-old female comes in complaining of sickle cell pain. Exam shows no acute abnormalities. Her port was accessed, labs sent. Labs are similar to previous with a hemoglobin of 8.1. White blood cell count is 18.5. She has had elevated white blood cell counts in the past. 8.1 is around her baseline for her hemoglobin. She is given IV fluids, morphine, Benadryl, Zofran. She reported continued pain. Given a second dose of morphine. Patient continues to complain of pain. She is given a dose of Dilaudid. She will be admitted for further management. Diagnosis Primary Impression: Sickle cell crisis Admitting Information Admitting Physician Requests: Admit Lulu Russell MD January 07, 2018 06:27
[2018-01-07] MEDS ORDERED: HYDROmorphone HCL PF 0.5 MG/0.5 ML SYRINGE IV PUSH ONE (06:45)
[2018-01-07] MEDS ORDERED: SODIUM CHLORIDE 0.9% FLUSH 10 ML FLUSH IV FLUSH PRN (07:00)
[2018-01-07] MEDS ORDERED: NALOXONE HCL 0.4 MG/ML AMP IV PUSH PRN (07:00)
[2018-01-07] MEDS: SODIUM CHLOR 0.9% 1000 ML INJ 1,000 ML IV SCH ×2 (07:12→16:32)
[2018-01-07 07:53] VITALS: BP 108/66; PULSE 87; RESP 18; O2SAT 98
[2018-01-07] MEDS ORDERED: ALBUTEROL SULFATE 90 MCG/ACT HFA 8 GM INHALER INH PRN (08:00)
--- NOTE | 2018-01-07 08:02 | HHI.HP ---
[facility] Service [place] [facility] Primary Care Physician Non-Staff Admission Diagnosis sickle cell crisis Diagnoses: (1) Sickle cell crisis Diagnosis: Principal Chief Complaint: generalized bodyache Travel History International Travel<30 Days: No Contact w/Intl Traveler <30 Da: No Traveled to Known Affected Are: No History of Present Illness patient is a 27 y/o female with history of sickle cell who presented to ER with generalized bodyache. she says that she's had this pain for the past one week which has been getting worse despite taking her lortab at home. she has some sob and dry cough which she related to her asthma. she denies any fever. Review of Systems Constitutional: DENIES: Fever, Weight loss, Chills, Night Sweats Eyes: DENIES: Blurred vision, Diplopia, Vision loss, Double Vision Ears, nose, mouth, throat: DENIES: Tinnitus, Vertigo, Throat pain, Epistaxis Respiratory: COMPLAINS OF: Cough, Shortness of breath, DENIES: Apneas, Snoring , Wheezing, Hemoptysis, Sputum production Cardiovascular: DENIES: Chest pain, Palpitations, Syncope, Dyspnea on Exertion , PND, Lower Extremity Edema, Orthopnea, Claudication Gastrointestinal: DENIES: Abdominal pain, Black stools, Bloody stools, Constipation, Diarrhea, Nausea, Vomiting, Difficulty Swallowing, Anorexia Genitourinary: DENIES: Urinary frequency, Urgency, Hematuria, Dysuria Musculoskeletal: COMPLAINS OF: Muscle aches, DENIES: Joint pain, Stiffness, Joint Swelling Integumentary: DENIES: Rash Neurologic: DENIES: Abnormal gait, Headache, Localized weakness, Paresthesias, Seizures, Speech Problems, Tremor, Poor Balance Psychiatric: DENIES: Anxiety, Confusion, Mood changes, Depression, Hallucinations, Agitation, Suicidal Ideation, Homicidal Ideation, Delusions Past Family Social History Past Medical History sickle cell/ asthma. Past Surgical History cholecystectomy Reported Medications folic acid/ hydroxyurea/ lortab Allergies: Coded Allergies: oxycodone (Verified Allergy, Intermediate, itching, 01/07/18) Active Ordered Medications Inpatient Medications Diphenhydramine HCl (Benadryl) 25 mg ONCE ONCE PO Last administered on at 04:59; Start 01/07/18 at 05:00; Stop 01/07/18 at 05:01; Status DC Hydromorphone HCl (Dilaudid Pf Inj) 1 mg Q3H PRN IV PUSH BREAKTHROUGH PAIN; Start 01/07/18 at 07:00 Hydromorphone HCl (Dilaudid) 2 mg Q4H PRN PO PAIN SCALE 6 TO 10; Start at 07:00 Morphine Sulfate (Morphine Inj) 4 mg ONCE ONCE IV PUSH Last administered on 06/17at 05:54; Start 01/07/18 at 06:00; Stop 01/07/18 at 06:01; Status DC Naloxone HCl (Narcan Inj) 0.4 mg UNSCH PRN IV PUSH SEE LABEL COMMENTS; Start at 07:00 Ondansetron HCl (Zofran Odt) 4 mg ONCE ONCE PO Last administered on at 04:59; Start 01/07/18 at 05:00; Stop 01/07/18 at 05:01; Status DC Sodium Chloride (NS Flush) 2 ml BID IV FLUSH ; Start 01/07/18 at 09:00 Social History drinks occasionally- doesn't smoke. Physical Exam Vital Signs Vital Signs Date Time Temp Pulse Resp B/P (MAP) Pulse Ox O2 Delivery O2 Flow Rate FiO2 01/07/18 07:53 87 18 108/66 (80) 98 Room Air 01/07/18 04:17 98.4 108 18 128/85 (99) 100 Physical Exam GENERAL: This is a well-nourished, well-developed patient, in no apparent distress. SKIN: No rashes, ecchymoses or lesions. Cool and dry. HEAD: Atraumatic. Normocephalic. No temporal or scalp tenderness. EYES: Pupils equal round and reactive. Extraocular motions intact. No scleral icterus. No injection or drainage. ENT: Nose without bleeding, purulent drainage or septal hematoma. Throat without erythema, tonsillar hypertrophy or exudate. Uvula midline. Airway patent. NECK: Trachea midline. No JVD or lymphadenopathy. Supple, nontender, no meningeal signs. CARDIOVASCULAR: Regular rate and rhythm without murmurs, gallops, or rubs. RESPIRATORY: Clear to auscultation. Breath sounds equal bilaterally. No wheezes , rales, or rhonchi. GASTROINTESTINAL: Abdomen soft, non-tender, nondistended. No hepato-splenomegaly , or palpable masses. No guarding. MUSCULOSKELETAL: Extremities without clubbing, cyanosis, or edema. No joint tenderness, effusion, or edema noted. No calf tenderness. Negative Homans sign bilaterally. NEUROLOGICAL: Awake and alert. Cranial nerves II through XII intact. Motor and sensory grossly within normal limits. Five out of 5 muscle strength in all muscle groups. Normal speech. Laboratory Laboratory Tests Test 01/07/18 05:00 White Blood Count 18.5 Red Blood Count 2.53 Hemoglobin 8.1 Hematocrit 21.6 Mean Corpuscular Volume 85.1 Mean Corpuscular Hemoglobin 31.9 Mean Corpuscular Hemoglobin Concent 37.5 Red Cell Distribution Width 16.1 Platelet Count 435 Mean Platelet Volume 8.0 Neutrophils (%) (Auto) 52.5 Lymphocytes (%) (Auto) 31.5 Monocytes (%) (Auto) 11.3 Eosinophils (%) (Auto) 3.4 Basophils (%) (Auto) 1.3 Neutrophils # (Auto) 9.7 Lymphocytes # (Auto) 5.8 Monocytes # (Auto) 2.1 Eosinophils # (Auto) 0.6 Basophils # (Auto) 0.2 CBC Comment AUTO DIFF Differential Total Cells Counted 100 Neutrophils % (Manual) 58 Band Neutrophils % 4 Lymphocytes % 28 Monocytes % 5 Eosinophils % 4 Basophils % 1 Neutrophils # (Manual) 11.5 Differential Comment FINAL DIFF MANUAL Platelet Estimate NORMAL Platelet Morphology Comment NORMAL [place] Bodies PRESENT Reticulocyte Count 9.0 Absolute Reticulocyte Count 227.2 Blood Urea Nitrogen 8 Creatinine 0.70 Random Glucose 102 Total Protein 7.4 Albumin 3.6 Calcium Level 7.9 Alkaline Phosphatase 96 Aspartate Amino Transf (AST/SGOT) 50 Alanine Aminotransferase (ALT/SGPT) 20 Total Bilirubin 1.5 Sodium Level 143 Potassium Level 3.8 Chloride Level 110 Carbon Dioxide Level 24.3 Anion Gap 9 Estimat Glomerular Filtration Rate 121 Result Diagram: 01/07/18 0500 01/07/18 0500 Caprini VTE Risk Assessment Caprini VTE Risk Assessment: Mod/High Risk (score >= 2) Caprini Risk Assessment Model Point Value = 1 Point Value = 2 Point Value = 3 Point Value = 5 Age 41-60 Minor surgery BMI > 25 kg/m2 Swollen legs Varicose veins or History of unexplained or recurrent spontaneous Oral contraceptives or hormone replacement Sepsis (< 1 month) Serious lung disease, including pneumonia (< 1 month) Abnormal pulmonary function Acute myocardial infarction Congestive heart failure (< 1 month) History of inflammatory bowel disease Medical patient at bed rest Age 61-74 Arthroscopic surgery Major open surgery (> 45 min) Laparoscopic surgery (> 45 min) Malignancy Confined to bed (> 72 hours) Immobilizing plaster cast Central venous access Age >= 75 History of VTE Family history of VTE Factor V Leiden Prothrombin [id number] Lupus anticoagulant Anticardiolipin antibodies Elevated serum homocysteine Heparin-induced thrombocytopenia Other congenital or acquired thrombophilia Stroke (< 1 month) Elective arthroplasty Hip, pelvis, or leg fracture Acute spinal cord injury (< 1 month) Prophylaxis Regimen Total Risk Factor Score Risk Level Prophylaxis Regimen 0-1 Low Early ambulation 2 Moderate Order ONE of the following: *Sequential Compression Device (SCD) *Heparin 5000 units SQ BID 3-4 Higher Order ONE of the following medications: *Heparin 5000 units SQ TID *Enoxaparin/Lovenox 40 mg SQ daily (WT < 150 kg, CrCl > 30 mL/min) *Enoxaparin/Lovenox 30 mg SQ daily (WT < 150 kg, CrCl > 10-29 mL/min) *Enoxaparin/Lovenox 30 mg SQ BID (WT < 150 kg, CrCl > 30 mL/min) AND/OR *Sequential Compression Device (SCD) 5 or more Highest Order ONE of the following medications: *Heparin 5000 units SQ TID (Preferred with Epidurals) *Enoxaparin/Lovenox 40 mg SQ daily (WT < 150 kg, CrCl > 30 mL/min) *Enoxaparin/Lovenox 30 mg SQ daily (WT < 150 kg, CrCl > 10-29 mL/min) *Enoxaparin/Lovenox 30 mg SQ BID (WT < 150 kg, CrCl > 30 mL/min) AND *Sequential Compression Device (SCD) Assessment and Plan Assessment and Plan A/P - sickle cell painful crisis continue with pain control ; started on Dilaudid; will try to wean her off - continue IV fluid- resume Hydroxyurea and folic acid. -asthma- albuterol as needed. -DVT prophylaxis with subq Lovenox. Discussed Condition With the patient. Physician Certification 2 Midnight Certification Type: Admission for Inpatient Services Order for Inpatient Services The services are ordered in accordance with Medicare regulations or non- Medicare payer requirements, as applicable. In the case of services not specified as inpatient-only, they are appropriately provided as inpatient services in accordance with the 2-midnight benchmark. Estimated LOS (days): 2 days is the estimated time the patient will need to remain in the hospital, assuming treatment plan goals are met and no additional complications. Post-Hospital Plan: Home Bernardo Orozco MD January 07, 2018 08:02
[2018-01-07] MEDS: SODIUM CHLORIDE 0.9% FLUSH 10 ML FLUSH IV FLUSH SCH ×2 (09:00→21:00)
[2018-01-07] MEDS: ENOXAPARIN SODIUM 40 MG/0.4 ML SYRINGE SQ SCH (09:00)
[2018-01-07] MEDS: HYDROmorphone HCL 2 MG TAB PO PRN ×3 (09:12→18:06)
[2018-01-07] MEDS: FOLIC ACID 1 MG TAB PO SCH (09:12)
[2018-01-07] MEDS: diphenhydrAMINE HCL 50 MG/ML VIAL IV PUSH PRN ×3 (09:13→20:59)
[2018-01-07] MEDS: HYDROXYUREA 500 MG CAP PO SCH (09:43)
[2018-01-07 09:47] VITALS: BP 99/63; PULSE 72; RESP 18; O2SAT 100
[2018-01-07] MEDS: HYDROmorphone HCL PF 2 MG/ML VIAL IV PUSH PRN ×3 (12:03→20:52)
[2018-01-07 15:02] VITALS: BP 112/69; PULSE 90; RESP 18; TEMP 98.2; O2SAT 100
[2018-01-07 16:56] VITALS: BP 122/53; PULSE 90; RESP 16; TEMP 98; O2SAT 98
[2018-01-07] MEDS: ZOLPIDEM TARTRATE 5 MG TAB PO PRN (20:55)
[2018-01-07 21:03] VITALS: BP 104/58; PULSE 90; RESP 16; TEMP 98.6; O2SAT 99
[2018-01-08] VITALS (10 sets, daily range): BP systolic 98–114; BP diastolic 55–69; PULSE 74–102; RESP 15–20; TEMP 98–99.2; O2SAT 95–100
[2018-01-08] MEDS: HYDROmorphone HCL 2 MG TAB PO PRN ×6 (00:15→22:10)
[2018-01-08] MEDS: HYDROmorphone HCL PF 2 MG/ML VIAL IV PUSH PRN ×6 (00:55→21:17)
[2018-01-08] MEDS: SODIUM CHLOR 0.9% 1000 ML INJ 1,000 ML IV SCH ×3 (02:32→22:32)
[2018-01-08] MEDS: diphenhydrAMINE HCL 50 MG/ML VIAL IV PUSH PRN ×3 (04:46→21:17)
[2018-01-08 06:16] LABS: AUTOMATED NEUTROPHIL # 13.6 TH/MM3 (1.8-7.7); BASOPHIL # 0.2 TH/MM3 (0-0.2); EOSINOPHIL # 0.5 TH/MM3 (0-0.4); EOSINOPHIL % 2.6 % (0.0-4.0); LYMPH % 13.6 % (9.0-44.0); LYMPHOCYTE # 2.6 TH/MM3 (1.0-4.8); MEAN CORPUSCULAR HEMOGLOBIN 28.5 PG (27.0-34.0); MEAN CORPUSCULAR HGB CONC 33.6 % (32.0-36.0); MEAN PLATELET VOLUME 8.6 FL (7.0-11.0); MONO % 10.4 % (0.0-8.0); MONOCYTE # 1.9 TH/MM3 (0-0.9); NEUT % 72.4 % (16.0-70.0); PLATELET COUNT 405 TH/MM3 (150-450); RED BLOOD COUNT 2.32 MIL/MM3 (4.00-5.30); RED CELL DISTRIBUTION WIDTH 16.3 % (11.6-17.2); WHITE BLOOD COUNT 18.7 TH/MM3 (4.0-11.0)
[2018-01-08 06:30] LABS: HEMATOCRIT 19.7 % (35.0-46.0); HEMOGLOBIN 6.6 GM/DL (11.6-15.3)
[2018-01-08] MEDS ORDERED: SODIUM CHLOR 0.9% 250 ML INJ 250 ML IV ONE (06:45)
[2018-01-08 07:40] LABS: TARGET CELLS 1+ (NORMAL)
[2018-01-08 07:41] LABS: KERATOCYTES OCC (NORMAL); OVALOCYTES 1+ (NORMAL); STOMATOCYTES 1+ (NORMAL)
--- NOTE | 2018-01-08 08:25 | HHI.PR ---
Subjective Remarks in no acute distress. still with some pain- hasn't changed as much. H/H trend noted. Objective Vitals Vital Signs Date Time Temp Pulse Resp B/P (MAP) Pulse Ox O2 Delivery O2 Flow Rate FiO2 01/08/18 08:19 98.3 85 20 106/59 (75) 97 01/08/18 07:55 98 21 01/08/18 06:07 21 01/08/18 04:03 98.5 94 16 98/55 (69) 95 01/08/18 00:29 98.7 102 16 114/69 (84) 98 01/07/18 21:03 98.6 90 16 104/58 (73) 99 01/07/18 16:56 98.0 90 16 122/53 (76) 98 01/07/18 16:22 22 01/07/18 16:22 22 01/07/18 15:02 98.2 90 18 112/69 (83) 100 01/07/18 09:47 72 18 99/63 (75) 100 Room Air I/O 01/07/18 01/07/18 01/07/18 01/08/18 01/08/18 01/08/18 07:00 15:00 23:00 07:00 15:00 23:00 Intake Total 1200 ml Balance 1200 ml Intake Oral 1200 ml # Voids 4 Result Diagram: 01/08/18 0523 01/07/18 0500 Objective Remarks GENERAL: This is a well-nourished, well-developed patient, in no apparent distress. CARDIOVASCULAR: Regular rate and regular rhythm without murmurs, gallops, or rubs. RESPIRATORY: Clear to auscultation. Breath sounds equal bilaterally. No wheezes , rales, or rhonchi. GASTROINTESTINAL: Abdomen soft, non-tender, nondistended. Normal, active bowel sounds MUSCULOSKELETAL: Extremities without clubbing, cyanosis, or edema. NEURO: Alert & Oriented x4 to person, place, time, situation. Moves all ext x4 Medications and IVs Inpatient Medications Albuterol Sulfate (Proair Hfa Inh) 2 puff Q6H PRN INH SHORTNESS OF BREATH; Start 01/07/18 at 08:00 Diphenhydramine HCl (Benadryl Inj) 25 mg Q6H PRN IV PUSH ITCHING Last administered on 01/08/18at 04:46; Start 01/07/18 at 08:00 Diphenhydramine HCl (Benadryl) 25 mg ONCE ONCE PO Last administered on at 04:59; Start 01/07/18 at 05:00; Stop 01/07/18 at 05:01; Status DC Enoxaparin Sodium (Lovenox Inj) 40 mg Q24H SQ ; Start 01/07/18 at 09:00 Folic Acid (Folate) 1 mg DAILY PO Last administered on 01/07/18at 09:12; Start 01/07/18 at 09:00 Hydromorphone HCl (Dilaudid Pf Inj) 1 mg Q3H PRN IV PUSH BREAKTHROUGH PAIN Last administered on 01/08/18at 04:46; Start 01/07/18 at 07:00 Hydromorphone HCl (Dilaudid) 2 mg Q4H PRN PO PAIN SCALE 6 TO 10 Last administered on 01/08/18at 03:47; Start 01/07/18 at 07:00 Hydroxyurea (Hydrea) 500 mg DAILY PO Last administered on 01/07/18at 09:43; Start 01/07/18 at 09:00 Morphine Sulfate (Morphine Inj) 4 mg ONCE ONCE IV PUSH Last administered on 06/17at 05:54; Start 01/07/18 at 06:00; Stop 01/07/18 at 06:01; Status DC Naloxone HCl (Narcan Inj) 0.4 mg UNSCH PRN IV PUSH SEE LABEL COMMENTS; Start at 07:00 Ondansetron HCl (Zofran Odt) 4 mg ONCE ONCE PO Last administered on at 04:59; Start 01/07/18 at 05:00; Stop 01/07/18 at 05:01; Status DC Sodium Chloride 250 ml @ 15 mls/hr ONCE ONCE IV ; Start 01/08/18 at 06:45; Stop 01/08/18 at 23:24 Sodium Chloride (NS Flush) 2 ml BID IV FLUSH ; Start 01/07/18 at 09:00 Zolpidem Tartrate (Ambien) 5 mg HS PRN PO INSOMNIA Last administered on at 20:55; Start 01/07/18 at 08:00 A/P Assessment and Plan A/P - sickle cell painful crisis continue with pain control ; started on Dilaudid; will try to wean her off - continue IV fluid- resumed Hydroxyurea and folic acid. will transfuse one unit of PRBC today- continue to monitor H/H. -asthma- albuterol as needed. -DVT prophylaxis with subq Lovenox. Discharge Planning when pain is better controlled. Bernardo Orozco MD January 08, 2018 08:25
[2018-01-08] MEDS: FOLIC ACID 1 MG TAB PO SCH (08:42)
[2018-01-08] MEDS: SODIUM CHLORIDE 0.9% FLUSH 10 ML FLUSH IV FLUSH SCH ×2 (08:42→20:51)
[2018-01-08] MEDS: HYDROXYUREA 500 MG CAP PO SCH (08:43)
[2018-01-08] MEDS: ENOXAPARIN SODIUM 40 MG/0.4 ML SYRINGE SQ SCH (08:44)
[2018-01-08] MEDS: ZOLPIDEM TARTRATE 5 MG TAB PO PRN (21:21)
[2018-01-09] MEDS: HYDROmorphone HCL PF 2 MG/ML VIAL IV PUSH PRN ×7 (00:25→22:40)
[2018-01-09] MEDS: HYDROmorphone HCL 2 MG TAB PO PRN ×3 (02:10→11:53)
[2018-01-09 02:30] VITALS: O2SAT 98
[2018-01-09] MEDS: diphenhydrAMINE HCL 50 MG/ML VIAL IV PUSH PRN ×4 (03:33→22:39)
[2018-01-09] MEDS: SODIUM CHLOR 0.9% 1000 ML INJ 1,000 ML IV SCH ×3 (05:51→19:43)
[2018-01-09 06:03] LABS: AUTOMATED NEUTROPHIL # 10.3 TH/MM3 (1.8-7.7); BASOPHIL % 0.3 % (0.0-2.0); EOSINOPHIL # 0.7 TH/MM3 (0-0.4); HEMATOCRIT 22.9 % (35.0-46.0); LYMPH % 23.8 % (9.0-44.0); LYMPHOCYTE # 3.9 TH/MM3 (1.0-4.8); MEAN CELL VOLUME 84.7 FL (80.0-100.0); MEAN CORPUSCULAR HEMOGLOBIN 29.5 PG (27.0-34.0); MEAN CORPUSCULAR HGB CONC 34.8 % (32.0-36.0); MEAN PLATELET VOLUME 8.2 FL (7.0-11.0); MONO % 9.6 % (0.0-8.0); MONOCYTE # 1.6 TH/MM3 (0-0.9); NEUT % 62.3 % (16.0-70.0); PLATELET COUNT 400 TH/MM3 (150-450); RED BLOOD COUNT 2.71 MIL/MM3 (4.00-5.30); RED CELL DISTRIBUTION WIDTH 16.3 % (11.6-17.2); WHITE BLOOD COUNT 16.5 TH/MM3 (4.0-11.0)
[2018-01-09 08:00] VITALS: BP 119/68; PULSE 83; RESP 18; TEMP 97.9; O2SAT 100
--- NOTE | 2018-01-09 08:27 | HHI.PR ---
Subjective Remarks in no acute distress. pain is getting better slowly. H/H trend noted. Objective Vitals Vital Signs Date Time Temp Pulse Resp B/P (MAP) Pulse Ox O2 Delivery O2 Flow Rate FiO2 01/09/18 02:30 98 01/08/18 20:00 98.6 96 18 114/66 (82) 100 01/08/18 16:00 98.0 81 15 108/64 (79) 99 01/08/18 14:49 18 01/08/18 14:22 18 01/08/18 13:22 99.2 74 16 112/61 99 01/08/18 13:00 99.2 74 16 112/61 (78) 99 01/08/18 11:16 98.5 82 16 99/57 (71) 99 01/08/18 11:16 98.5 82 16 99/57 99 01/08/18 10:53 98.6 84 16 102/55 96 I/O 01/08/18 01/08/18 01/08/18 01/09/18 01/09/18 01/09/18 07:00 15:00 23:00 07:00 15:00 23:00 Intake Total 1200 ml 412 ml 600 ml 480 ml Balance 1200 ml 412 ml 600 ml 480 ml Intake Oral 1200 ml 600 ml 480 ml Packed Cells 400 ml Blood Product IV Normal Saline Flush 12 ml # Voids 4 4 3 # Bowel Movements 1 0 Result Diagram: 01/09/18 0535 01/07/18 0500 Objective Remarks GENERAL: This is a well-nourished, well-developed patient, in no apparent distress. CARDIOVASCULAR: Regular rate and regular rhythm without murmurs, gallops, or rubs. RESPIRATORY: Clear to auscultation. Breath sounds equal bilaterally. No wheezes , rales, or rhonchi. GASTROINTESTINAL: Abdomen soft, non-tender, nondistended. Normal, active bowel sounds MUSCULOSKELETAL: Extremities without clubbing, cyanosis, or edema. NEURO: Alert & Oriented x4 to person, place, time, situation. Moves all ext x4 Medications and IVs Inpatient Medications Albuterol Sulfate (Proair Hfa Inh) 2 puff Q6H PRN INH SHORTNESS OF BREATH; Start 01/07/18 at 08:00 Diphenhydramine HCl (Benadryl Inj) 25 mg Q6H PRN IV PUSH ITCHING Last administered on 01/09/18at 03:33; Start 01/07/18 at 08:00 Diphenhydramine HCl (Benadryl) 25 mg ONCE ONCE PO Last administered on at 04:59; Start 01/07/18 at 05:00; Stop 01/07/18 at 05:01; Status DC Enoxaparin Sodium (Lovenox Inj) 40 mg Q24H SQ ; Start 01/07/18 at 09:00 Folic Acid (Folate) 1 mg DAILY PO Last administered on 01/08/18at 08:42; Start 01/07/18 at 09:00 Hydromorphone HCl (Dilaudid Pf Inj) 1 mg Q3H PRN IV PUSH BREAKTHROUGH PAIN Last administered on 01/09/18at 03:30; Start 01/07/18 at 07:00 Hydromorphone HCl (Dilaudid) 2 mg Q4H PRN PO PAIN SCALE 6 TO 10 Last administered on 01/09/18at 06:14; Start 01/07/18 at 07:00 Hydroxyurea (Hydrea) 500 mg DAILY PO Last administered on 01/08/18at 08:43; Start 01/07/18 at 09:00 Morphine Sulfate (Morphine Inj) 4 mg ONCE ONCE IV PUSH Last administered on 06/17at 05:54; Start 01/07/18 at 06:00; Stop 01/07/18 at 06:01; Status DC Naloxone HCl (Narcan Inj) 0.4 mg UNSCH PRN IV PUSH SEE LABEL COMMENTS; Start at 07:00 Ondansetron HCl (Zofran Odt) 4 mg ONCE ONCE PO Last administered on at 04:59; Start 01/07/18 at 05:00; Stop 01/07/18 at 05:01; Status DC Sodium Chloride 250 ml @ 15 mls/hr ONCE ONCE IV ; Start 01/08/18 at 06:45; Stop 01/08/18 at 23:24; Status DC Sodium Chloride (NS Flush) 2 ml BID IV FLUSH ; Start 01/07/18 at 09:00 Zolpidem Tartrate (Ambien) 5 mg HS PRN PO INSOMNIA Last administered on at 21:21; Start 01/07/18 at 08:00 A/P Problem List: (1) Sickle cell crisis ICD Code: D57.00 - Hb-SS disease with crisis, unspecified Status: Acute Assessment and Plan A/P - sickle cell painful crisis- improving slowly continue with pain control ; started on Dilaudid; will start to taper off tomorrow if pain continues to improve -continue IV fluid- resumed Hydroxyurea and folic acid. H/H improved after PRBC transfusion- continue to monitor. -asthma- albuterol as needed. -DVT prophylaxis with subq Lovenox. Discharge Planning when pain is better controlled; possible within the next 2-3 days. Bernardo Orozco MD January 09, 2018 08:27
[2018-01-09] MEDS: FOLIC ACID 1 MG TAB PO SCH (08:56)
[2018-01-09] MEDS: ENOXAPARIN SODIUM 40 MG/0.4 ML SYRINGE SQ SCH (09:00)
[2018-01-09] MEDS: SODIUM CHLORIDE 0.9% FLUSH 10 ML FLUSH IV FLUSH SCH ×2 (09:06→19:43)
[2018-01-09] MEDS: HYDROXYUREA 500 MG CAP PO SCH (09:06)
[2018-01-09 10:44] VITALS: O2SAT 96
[2018-01-09 12:00] VITALS: BP 122/56; PULSE 83; RESP 18; TEMP 98.1; O2SAT 100
[2018-01-09 17:30] VITALS: O2SAT 99
[2018-01-09 20:00] VITALS: BP 115/64; PULSE 96; RESP 18; TEMP 99.2; O2SAT 100
[2018-01-09] MEDS: ZOLPIDEM TARTRATE 5 MG TAB PO PRN (22:40)
[2018-01-10] VITALS: BP 108/59; PULSE 90; RESP 16; TEMP 99.3; O2SAT 97
[2018-01-10] MEDS: HYDROmorphone HCL PF 2 MG/ML VIAL IV PUSH PRN ×7 (01:48→22:03)
[2018-01-10] MEDS: diphenhydrAMINE HCL 50 MG/ML VIAL IV PUSH PRN ×3 (04:43→18:34)
[2018-01-10] MEDS ORDERED: SODIUM CHLORIDE 0.9% FLUSH 10 ML FLUSH IV FLUSH PRN (05:00)
[2018-01-10 05:10] LABS: HEMATOCRIT 21.9 % (35.0-46.0); HEMOGLOBIN 7.4 GM/DL (11.6-15.3)
[2018-01-10] MEDS: FOLIC ACID 1 MG TAB PO SCH (07:57)
--- NOTE | 2018-01-10 07:59 | HHI.PR ---
Subjective Remarks in no acute distress. pain is slowly improving. H/H trend noted. Objective Vitals Vital Signs Date Time Temp Pulse Resp B/P (MAP) Pulse Ox O2 Delivery O2 Flow Rate FiO2 01/10/18 00:00 99.3 90 16 108/59 (75) 97 01/09/18 20:00 99.2 96 18 115/64 (81) 100 01/09/18 18:48 Room Air 01/09/18 17:30 99 21 01/09/18 12:00 98.1 83 18 122/56 (78) 100 01/09/18 10:44 96 21 01/09/18 08:00 97.9 83 18 119/68 (85) 100 I/O 01/09/18 01/09/18 01/09/18 01/10/18 01/10/18 01/10/18 07:00 15:00 23:00 07:00 15:00 23:00 Intake Total 480 ml 960 ml 1307 ml Balance 480 ml 960 ml 1307 ml Intake Oral 480 ml 960 ml 480 ml IV Total 827 ml # Voids 3 4 2 # Bowel Movements 0 1 1 Result Diagram: 01/10/18 0443 01/07/18 0500 Objective Remarks GENERAL: This is a well-nourished, well-developed patient, in no apparent distress. CARDIOVASCULAR: Regular rate and regular rhythm without murmurs, gallops, or rubs. RESPIRATORY: Clear to auscultation. Breath sounds equal bilaterally. No wheezes , rales, or rhonchi. GASTROINTESTINAL: Abdomen soft, non-tender, nondistended. Normal, active bowel sounds MUSCULOSKELETAL: Extremities without clubbing, cyanosis, or edema. NEURO: Alert & Oriented x4 to person, place, time, situation. Moves all ext x4 Medications and IVs Inpatient Medications Albuterol Sulfate (Proair Hfa Inh) 2 puff Q6H PRN INH SHORTNESS OF BREATH; Start 01/07/18 at 08:00 Diphenhydramine HCl (Benadryl Inj) 25 mg Q6H PRN IV PUSH ITCHING Last administered on 01/10/18at 04:43; Start 01/07/18 at 08:00 Diphenhydramine HCl (Benadryl) 25 mg ONCE ONCE PO Last administered on at 04:59; Start 01/07/18 at 05:00; Stop 01/07/18 at 05:01; Status DC Enoxaparin Sodium (Lovenox Inj) 40 mg Q24H SQ ; Start 01/07/18 at 09:00 Folic Acid (Folate) 1 mg DAILY PO Last administered on 01/09/18at 08:56; Start 01/07/18 at 09:00 Heparin Sodium (Porcine) (Heparin Central Flush) 500 units UNSCH IV FLUSH ; Start 01/10/18 at 05:00 Hydromorphone HCl (Dilaudid Pf Inj) 1 mg Q3H PRN IV PUSH BREAKTHROUGH PAIN Last administered on 01/10/18at 04:43; Start 01/07/18 at 07:00 Hydromorphone HCl (Dilaudid) 2 mg Q4H PRN PO PAIN SCALE 6 TO 10 Last administered on 01/09/18at 11:53; Start 01/07/18 at 07:00 Hydroxyurea (Hydrea) 500 mg DAILY PO Last administered on 01/09/18at 09:06; Start 01/07/18 at 09:00 Morphine Sulfate (Morphine Inj) 4 mg ONCE ONCE IV PUSH Last administered on 06/17at 05:54; Start 01/07/18 at 06:00; Stop 01/07/18 at 06:01; Status DC Naloxone HCl (Narcan Inj) 0.4 mg UNSCH PRN IV PUSH SEE LABEL COMMENTS; Start at 07:00 Ondansetron HCl (Zofran Odt) 4 mg ONCE ONCE PO Last administered on at 04:59; Start 01/07/18 at 05:00; Stop 01/07/18 at 05:01; Status DC Sodium Chloride (NS Flush) 5 ml UNSCH PRN IV FLUSH SEE PROTOCOL TABLE; Start at 05:00 Zolpidem Tartrate (Ambien) 5 mg HS PRN PO INSOMNIA Last administered on at 22:40; Start 01/07/18 at 08:00 A/P Problem List: (1) Sickle cell crisis 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 H/H improved after PRBC transfusion- continue to monitor; CBC in am. -asthma- albuterol as needed. -DVT prophylaxis with subq Lovenox. Discharge Planning when pain is better controlled; possible within the next 1-2 days. Bernardo Orozco MD January 10, 2018 07:59
[2018-01-10 08:00] VITALS: BP 116/58; PULSE 66; RESP 16; TEMP 97.5; O2SAT 98
[2018-01-10] MEDS: HYDROXYUREA 500 MG CAP PO SCH (08:02)
[2018-01-10] MEDS: SODIUM CHLORIDE 0.9% FLUSH 10 ML FLUSH IV FLUSH SCH ×2 (08:02→20:54)
[2018-01-10] MEDS: ENOXAPARIN SODIUM 40 MG/0.4 ML SYRINGE SQ SCH (08:02)
[2018-01-10] MEDS: SODIUM CHLOR 0.9% 1000 ML INJ 1,000 ML IV SCH ×2 (11:49→20:53)
[2018-01-10 12:00] VITALS: BP 119/55; PULSE 75; RESP 16; TEMP 98.1; O2SAT 99
[2018-01-10] MEDS: ACETAMINOPHEN/HYDROcodone 325 MG/10 MG TAB PO PRN ×2 (15:10→20:53)
[2018-01-10 16:00] VITALS: BP 115/67; PULSE 86; RESP 16; TEMP 98.9; O2SAT 99
[2018-01-10 17:34] VITALS: O2SAT 99
[2018-01-10 20:30] VITALS: BP 128/57; PULSE 89; RESP 16; TEMP 98.3; O2SAT 96
[2018-01-11] VITALS (8 sets, daily range): BP systolic 105–152; BP diastolic 55–80; PULSE 76–87; RESP 16–18; TEMP 97.7–98.8; O2SAT 98–100
[2018-01-11] MEDS: diphenhydrAMINE HCL 50 MG/ML VIAL IV PUSH PRN ×4 (00:55→18:54)
[2018-01-11] MEDS: ZOLPIDEM TARTRATE 5 MG TAB PO PRN (00:55)
[2018-01-11] MEDS: HYDROmorphone HCL PF 2 MG/ML VIAL IV PUSH PRN ×8 (00:55→21:50)
[2018-01-11] MEDS: ACETAMINOPHEN/HYDROcodone 325 MG/10 MG TAB PO PRN ×5 (03:13→22:38)
[2018-01-11 05:54] LABS: BASOPHIL # 0.1 TH/MM3 (0-0.2); BASOPHIL % 0.4 % (0.0-2.0); EOSINOPHIL # 0.7 TH/MM3 (0-0.4); EOSINOPHIL % 4.9 % (0.0-4.0); HEMATOCRIT 21.7 % (35.0-46.0); HEMOGLOBIN 7.4 GM/DL (11.6-15.3); LYMPH % 33.8 % (9.0-44.0); LYMPHOCYTE # 4.9 TH/MM3 (1.0-4.8); MEAN CELL VOLUME 85.3 FL (80.0-100.0); MEAN CORPUSCULAR HEMOGLOBIN 29.2 PG (27.0-34.0); MEAN CORPUSCULAR HGB CONC 34.3 % (32.0-36.0); MEAN PLATELET VOLUME 8.8 FL (7.0-11.0); MONO % 12.7 % (0.0-8.0); MONOCYTE # 1.8 TH/MM3 (0-0.9); NEUT % 48.2 % (16.0-70.0); PLATELET COUNT 392 TH/MM3 (150-450); RED BLOOD COUNT 2.54 MIL/MM3 (4.00-5.30); RED CELL DISTRIBUTION WIDTH 16.5 % (11.6-17.2); WHITE BLOOD COUNT 14.5 TH/MM3 (4.0-11.0)
[2018-01-11] MEDS: ENOXAPARIN SODIUM 40 MG/0.4 ML SYRINGE SQ SCH (08:16)
[2018-01-11] MEDS: HYDROXYUREA 500 MG CAP PO SCH (08:17)
[2018-01-11] MEDS: FOLIC ACID 1 MG TAB PO SCH (08:17)
--- NOTE | 2018-01-11 09:33 | HHI.PR ---
Subjective Remarks Patient still complained of generalized pain. No complaint of shortness of breath or coughing. No fevers or chills. Not ready to go home. Objective Vitals Vital Signs Date Time Temp Pulse Resp B/P (MAP) Pulse Ox O2 Delivery O2 Flow Rate FiO2 01/11/18 07:31 98.7 80 18 125/73 (90) 100 01/11/18 04:35 98.4 83 16 130/71 (90) 100 01/11/18 00:40 97.7 77 17 117/64 (81) 100 01/10/18 20:30 98.3 89 16 128/57 (80) 96 01/10/18 17:34 99 Nasal Cannula 2.00 01/10/18 16:00 98.9 86 16 115/67 (83) 99 01/10/18 12:00 98.1 75 16 119/55 (76) 99 I/O 01/10/18 01/10/18 01/10/18 01/11/18 01/11/18 01/11/18 07:00 15:00 23:00 07:00 15:00 23:00 Intake Total 1307 ml 600 ml 720 ml Output Total 3 ml Balance 1307 ml 600 ml 717 ml Intake Oral 480 ml 600 ml 720 ml IV Total 827 ml Output Urine Total 3 ml # Voids 2 3 # Bowel Movements 1 1 0 Result Diagram: 01/11/18 0416 01/07/18 0500 Objective Remarks GENERAL: This is a well-nourished, well-developed patient, in no apparent distress. CARDIOVASCULAR: Regular rate and rhythm RESPIRATORY: Clear to auscultation. Breath sounds equal bilaterally. No wheezes , rales, or rhonchi. MUSCULOSKELETAL: Extremities without clubbing, cyanosis, or edema. NEURO: Alert & Oriented x4 to person, place, time, situation. 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 H/H improved after PRBC transfusion- continue to monitor; hemoglobin has remained stable. -asthma-no acute exacerbation, albuterol as needed. -DVT prophylaxis Lovenox. Discharge Planning discharged home in the next 1-2 days pending pain control Yessica Bobo MD January 11, 2018 09:33
[2018-01-11] MEDS: SODIUM CHLORIDE 0.9% FLUSH 10 ML FLUSH IV FLUSH SCH ×2 (10:15→20:51)
[2018-01-11] MEDS: SODIUM CHLOR 0.9% 1000 ML INJ 1,000 ML IV SCH (13:53)
[2018-01-12] MEDS: SODIUM CHLOR 0.9% 1000 ML INJ 1,000 ML IV SCH (00:55)
[2018-01-12] MEDS: HYDROmorphone HCL PF 2 MG/ML VIAL IV PUSH PRN ×2 (00:56→05:25)
[2018-01-12] MEDS: diphenhydrAMINE HCL 50 MG/ML VIAL IV PUSH PRN (00:57)
[2018-01-12] MEDS: ZOLPIDEM TARTRATE 5 MG TAB PO PRN (01:50)
[2018-01-12] MEDS: ACETAMINOPHEN/HYDROcodone 325 MG/10 MG TAB PO PRN ×3 (03:06→12:37)
[2018-01-12 04:00] VITALS: BP 112/60; PULSE 82; RESP 18; TEMP 97.9; O2SAT 99
[2018-01-12 08:00] VITALS: BP 125/66; PULSE 76; RESP 16; TEMP 98.5; O2SAT 98
[2018-01-12] MEDS: FOLIC ACID 1 MG TAB PO SCH (08:37)
[2018-01-12] MEDS: HYDROXYUREA 500 MG CAP PO SCH (08:40)
[2018-01-12] MEDS: SODIUM CHLORIDE 0.9% FLUSH 10 ML FLUSH IV FLUSH SCH (09:00)
[2018-01-12] MEDS: ENOXAPARIN SODIUM 40 MG/0.4 ML SYRINGE SQ SCH (09:00)
--- NOTE | 2018-01-12 10:34 | HHI.PR ---
Subjective Remarks Patient laying in bed, tired, states pain has been controlled. No chest pain or SOB. Encouraged patient to get out of bed and get motivated so she does not get depressed. Objective Vitals Vital Signs Date Time Temp Pulse Resp B/P (MAP) Pulse Ox O2 Delivery O2 Flow Rate FiO2 01/12/18 08:00 98.5 76 16 125/66 (85) 98 01/12/18 05:43 18 01/12/18 04:10 17 01/12/18 04:00 97.9 82 18 112/60 (77) 99 01/11/18 23:44 98.4 87 18 152/74 (100) 98 01/11/18 22:28 Room Air 01/11/18 22:13 18 01/11/18 20:04 98.5 82 18 128/80 (96) 99 01/11/18 16:20 98.8 79 18 119/69 (86) 99 01/11/18 11:57 98.3 76 17 105/55 (72) 99 I/O 01/11/18 01/11/18 01/11/18 01/12/18 01/12/18 01/12/18 07:00 15:00 23:00 07:00 15:00 23:00 Intake Total 720 ml 1200 ml 1480 ml Output Total 3 ml Balance 717 ml 1200 ml 1480 ml Intake Oral 720 ml 1200 ml 480 ml IV Total 1000 ml Output Urine Total 3 ml # Voids 4 4 # Bowel Movements 0 1 0 Result Diagram: 01/11/18 0416 Objective Remarks SKIN: Warm and dry. EYES: Pupils equal and round. CARDIOVASCULAR: Regular rate and rhythm. RESPIRATORY: No accessory muscle use. Clear to auscultation. Breath sounds equal bilaterally. GASTROINTESTINAL: Abdomen soft, non-tender, nondistended. Hepatic and splenic margins not palpable. MUSCULOSKELETAL: Extremities without clubbing, cyanosis, or edema. No obvious deformities. NEUROLOGICAL: Awake and alert. No obvious cranial nerve deficits. Motor grossly within normal limits. Normal speech. PSYCHIATRIC: Appropriate mood and affect; insight and judgment normal. 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 DVT prophylaxis Lovenox. Discharge Planning Today Amy Garcia January 12, 2018 10:34
[2018-01-12] MEDS ORDERED: HYDR-3583 PO (10:35)
--- NOTE | 2018-01-12 10:36 | HHI.DCPOC ---
Discharge Care Plan Diagnosis: (1) Sickle cell anemia Goals to Promote Your Health * To prevent worsening of your condition and complications * To maintain your health at the optimal level Directions to Meet Your Goals Take your medications as prescribed Follow your dietary instruction Follow activity as directed Keep your appointments as scheduled Take your immunizations and boosters as scheduled If your symptoms worsen call your PCP, if no PCP go to Urgent Care Center or Emergency Room Smoking is Dangerous to Your Health. Avoid second hand smoke Call the 24-hour hour crisis hotline for domestic abuse at Amy Garcia January 12, 2018 10:36
--- NOTE | 2018-01-12 10:37 | HHI.DS ---
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 she says that she's had this pain for the past one week which has been getting worse despite taking her lortab at home. she has some sob and dry cough which she related to her asthma. she denies any fever. CBC/BMP: 01/11/18 0416 Significant Findings Laboratory Tests Test 01/10/18 04:43 01/11/18 04:16 Hemoglobin 7.4 GM/DL (11.6-15.3) 7.4 GM/DL (11.6-15.3) Hematocrit 21.9 % (35.0-46.0) 21.7 % (35.0-46.0) White Blood Count 14.5 TH/MM3 (4.0-11.0) Red Blood Count 2.54 MIL/MM3 (4.00-5.30) Monocytes (%) (Auto) 12.7 % (0.0-8.0) Eosinophils (%) (Auto) 4.9 % (0.0-4.0) Lymphocytes # (Auto) 4.9 TH/MM3 (1.0-4.8) Monocytes # (Auto) 1.8 TH/MM3 (0-0.9) Eosinophils # (Auto) 0.7 TH/MM3 (0-0.4) PE at Discharge SKIN: Warm and dry. EYES: Pupils equal and round. CARDIOVASCULAR: Regular rate and rhythm. RESPIRATORY: No accessory muscle use. Clear to auscultation. Breath sounds equal bilaterally. GASTROINTESTINAL: Abdomen soft, non-tender, nondistended. Hepatic and splenic margins not palpable. MUSCULOSKELETAL: Extremities without clubbing, cyanosis, or edema. No obvious deformities. NEUROLOGICAL: Awake and alert. No obvious cranial nerve deficits. Motor grossly within normal limits. Normal speech. PSYCHIATRIC: Appropriate mood and affect; insight and judgment normal. Hospital Course Acute sickle cell painful crisis, pain improved -Patient was treated with Dilaudid IV and PO [place] along with home hydroxyurea. Dilaudid IV was decreased overtime and on 01/12 patient states pain controlled. IV dilaudid was d/c and patient will be given [place] for discharge. -H&H is stable at 7.4, she was transfused on 01/08 for a hgb of 6.6 -Patient was instructed to get out of bed and walk, patient does not seem to have much motivation. -Discussed with patient about discharge and to cont home medication and pain medications as needed. -Patient will need to continue to follow up with her PCP or senior [employer] for her chronic sickle cell. Patient with a history of asthma, no acute exacerbation noted during hospital admission, She can cont albuterol as needed. Pt Condition on Discharge: Stable Discharge Disposition: Discharge Home Discharge Time: > 30 minutes Discharge Instructions DIET: Follow Instructions for: As Tolerated, No Restrictions Activities you can perform: Regular-No Restrictions Follow up Referrals: PCP Follow-up - 1 Week Continued Medications: Albuterol 6.7 GM Inh (Proventil Hfa 6.7 GM Inh) 90 Mcg/Act Aer 2 PUFF INH Q6H PRN for SHORTNESS OF BREATH, #1 INHALER 0 Refills Folic Acid (Folic Acid) 1 Mg Tablet 1 MG PO DAILY for sickle cell for 30 Days, TAB 0 Refills Hydrocodone/Acetaminophen (Hydrocodone-Acetamin 10-325 mg) 10 Mg-325 Mg Tablet 1 TAB PO Q6HR PRN for pain, #15 TAB 0 Refills (This prescription has been renewed) DO NOT USE THIS MEDICINE IF YOU WILL DRIVE A CAR OR USE A MACHINE, ONLY USE IT WHEN RESTING AT HOME. Hydroxyurea (Hydrea) 500 Mg Cap 500 MG PO DAILY for sickle cell, #30 CAP 0 Refills Zolpidem (Ambien) 5 Mg Tab 5 MG PO HS PRN for INSOMNIA, TAB 0 Refills Amy Garcia January 12, 2018 10:37
[2018-01-12 12:00] VITALS: BP 129/69; PULSE 79; RESP 16; TEMP 98.5; O2SAT 99
== END 2018-01-12 14:52 | disposition home or self-care (01) | DRG 812 ==
LOC: NEPE 04:12 → NEDA 06:52 → NEPGCP 11:23 → N06B 01-08 13:04
PROVIDERS: ADMIT Family Medicine; ATTEND Family Medicine
PROC: 30233N1 Transfusion of Nonautologous Red Blood Cells into Peripheral Vein, Percutaneous Approach (ICD-10-PCS; principal; 2018-01-08)
DX: D57.00 Hb-SS disease with crisis, unspecified (principal); I50.9 Heart failure, unspecified; J45.909 Unspecified asthma, uncomplicated; F41.9 Anxiety disorder, unspecified
CPT/HCPCS: 36430; 80053; 84703; 85007; 85014; 85018; 85025; 85027; 85044; 86850; 86900; 86901; 86920; 86922; 94150; 96361; 96374; 96376; J1170; J1200; J2270; J7030; P9016

== ENCOUNTER 2018-01-20 08:53 | Emergency (ER) | payer MEDICAID ==
[2018-01-20 08:55] VITALS: BP 117/56; PULSE 93; RESP 16; TEMP 99.3; O2SAT 99
[2018-01-20] MEDS ORDERED: diphenhydrAMINE HCL 50 MG/ML VIAL IV PUSH ONE (09:15)
[2018-01-20] MEDS ORDERED: SODIUM CHLOR 0.9% 1000 ML INJ 1,000 ML IV ONE (09:15)
[2018-01-20] MEDS ORDERED: MORPHINE SULFATE 4 MG/ML INJ IV PUSH ONE ×2 (09:15→11:15)
[2018-01-20] MEDS ORDERED: KETOROLAC TROMETHAMINE 30 MG/ML (IVP) VIAL IV PUSH ONE (09:15)
--- NOTE | 2018-01-20 09:20 | PD ---
HPI Chief Complaint: Sickle Cell Time Seen by Provider: 08:58 Travel History International Travel<30 days: No Contact w/Intl Traveler<30days: No Traveled to known affect area: No History of Present Illness HPI 27-year-old female complains of joint pain. Patient has history of sickle cell disease with frequent sickle cell pain crisis. Patient was admitted and discharged from [facility] 8 days ago. Patient states that she had persistent pain since discharge. Patient states that the pain got worse for the past 2 days. Patient denies any fever chills. Patient denies any coughing congestion. Patient states that she has intermittent nausea vomiting. Patient denies abdominal pain. Patient denies any dysuria frequency. Patient denies any vaginal discharge or bleeding. On a scale of 1-10 the pain is an 8. PFSH Past Medical History Anemia: Yes (Sickle cell) Asthma: Yes Autoimmune Disease: Yes (SICKLE CELL) Blood Disorders: Yes Anxiety: Yes Depression: No Heart Rhythm Problems: No Cancer: No Cardiovascular Problems: Yes (CHF) High Cholesterol: No Chemotherapy: No Chest Pain: Yes Congestive Heart Failure: Yes COPD: No Diabetes: No Diminished Hearing: No Endocrine: No Genitourinary: No Headaches: Yes Immune Disorder: No Implanted Vascular Access Dvce: Yes Musculoskeletal: No Neurologic: Yes Psychiatric: Yes Reproductive: No Respiratory: Yes (ASTHMA) Immunizations Current: Yes Migraines: Yes Pneumonia: Yes Radiation Therapy: No Sickle Cell Disease: Yes Sleep Apnea: No Thyroid Disease: No PNEUMOCCOCAL Vaccine (Year): 1 : 1 Para: 1 Miscarriage: 0 : 0 Tubal Ligation: Yes Past Surgical History Abdominal Surgery: Yes (gall stones removed) Body Medical Devices: R Chest Infusaport (3RD) Section: Yes (X 1) Cholecystectomy: Yes Genitourinary Surgery: No Gynecologic Surgery: Yes (c section) Hysterectomy: No Insulin Pump: No Joint Replacement: No Neurologic Surgery: No Oral Surgery: No Pacemaker: No Thoracic Surgery: No Other Surgery: Yes (R port x 3 removed x 2) Social History Alcohol Use: Yes (occ) Tobacco Use: No Substance Use: No Allergies-Medications (Allergen,Severity, Reaction): Coded Allergies: oxycodone (Verified Allergy, Intermediate, itching, 01/07/18) Reported Meds & Prescriptions Reported Meds & Active Scripts Active Hydrocodone-Acetamin 10-325 mg (Hydrocodone/Acetaminophen) 10 Mg-325 Mg Tablet 1 Tab PO Q6HR PRN DO NOT USE THIS MEDICINE IF YOU WILL DRIVE A CAR OR USE A MACHINE, ONLY USE IT WHEN RESTING AT HOME. Hydrea (Hydroxyurea) 500 Mg Cap 500 Mg PO DAILY Folic Acid 1 Mg Tablet 1 Mg PO DAILY 30 Days Reported Ambien (Zolpidem Tartrate) 5 Mg Tab 5 Mg PO HS PRN Proventil Hfa 6.7 GM Inh (Albuterol Sulfate) 90 Mcg/Act Aer 2 Puff INH Q6H PRN Review of Systems General / Constitutional: No: Fever Eyes: No: Visual changes HENT: No: Headaches Cardiovascular: No: Chest Pain or Discomfort Respiratory: No: Shortness of Breath Gastrointestinal: No: Abdominal Pain Genitourinary: No: Dysuria Musculoskeletal: No: Pain Skin: No Rash Neurologic: No: Weakness Psychiatric: No: Depression Endocrine: No: Polydipsia Hematologic/Lymphatic: No: Easy Bruising Physical Exam Narrative GENERAL: Well-nourished, well-developed patient. SKIN: Focused skin assessment warm/dry. HEAD: Normocephalic. EYES: No scleral icterus. No injection or drainage. NECK: Supple, trachea midline. No JVD or lymphadenopathy. CARDIOVASCULAR: Regular rate and rhythm without murmurs, gallops, or rubs. RESPIRATORY: Breath sounds equal bilaterally. No accessory muscle use. GASTROINTESTINAL: Abdomen soft, non-tender, nondistended. MUSCULOSKELETAL: No cyanosis, or edema. BACK: Nontender without obvious deformity. No CVA tenderness. Neurologic exam normal. Data Data Last Documented VS Vital Signs Date Time Temp Pulse Resp B/P (MAP) Pulse Ox O2 Delivery O2 Flow Rate FiO2 01/20/18 10:07 17 98 Room Air 01/20/18 08:55 99.3 93 117/56 (76) Orders Orders Complete Blood Count With Diff (01/20/18 09:13) Basic Metabolic Panel (Bmp) (01/20/18 09:13) Iv Access Insert/Monitor (01/20/18 09:13) Ecg Monitoring (01/20/18 09:13) Oximetry (01/20/18 09:13) Retic Count (01/20/18 09:13) Sodium Chlor 0.9% 1000 Ml Inj (Ns 1000 M (01/20/18 09:15) Morphine Inj (Morphine Inj) (01/20/18 09:15) Diphenhydramine Inj (Benadryl Inj) (01/20/18 09:15) Ketorolac Inj (Toradol Inj) (01/20/18 09:15) Ondansetron Odt (Zofran Odt) (01/20/18 09:30) Labs Laboratory Tests Test 01/20/18 09:40 White Blood Count 15.6 TH/MM3 Red Blood Count 2.67 MIL/MM3 Hemoglobin 7.7 GM/DL Hematocrit 22.9 % Mean Corpuscular Volume 85.5 FL Mean Corpuscular Hemoglobin 28.7 PG Mean Corpuscular Hemoglobin Concent 33.5 % Red Cell Distribution Width 16.0 % Platelet Count 497 TH/MM3 Mean Platelet Volume 8.5 FL Neutrophils (%) (Auto) 65.3 % Lymphocytes (%) (Auto) 20.7 % Monocytes (%) (Auto) 11.3 % Eosinophils (%) (Auto) 2.1 % Basophils (%) (Auto) 0.6 % Neutrophils # (Auto) 10.2 TH/MM3 Lymphocytes # (Auto) 3.2 TH/MM3 Monocytes # (Auto) 1.8 TH/MM3 Eosinophils # (Auto) 0.3 TH/MM3 Basophils # (Auto) 0.1 TH/MM3 CBC Comment DIFF FINAL Differential Comment Reticulocyte Count 3.6 % Absolute Reticulocyte Count 95.7 MIL/L Blood Urea Nitrogen 8 MG/DL Creatinine 0.72 MG/DL Random Glucose 88 MG/DL Calcium Level 8.5 MG/DL Sodium Level 140 MEQ/L Potassium Level 3.7 MEQ/L Chloride Level 110 MEQ/L Carbon Dioxide Level 22.5 MEQ/L Anion Gap 8 MEQ/L Estimat Glomerular Filtration Rate 117 ML/MIN [facility] Medical Decision Making Medical Screen Exam Complete: Yes Emergency Medical Condition: Yes Interpretation(s) 10:54 AM. CBC WBC 15.6. Hemoglobin 7.7 hematocrit 22.9. Normal differential. Patient at baseline. Reticulocyte count 3.6. Differential Diagnosis Differential diagnosis including sickle cell pain crisis, anemia, electrolyte imbalance. Narrative Course 27-year-old female with painful joint. History of sickle cell disease with frequent sickle cell pain crisis. Normal saline solution 1 L IV bolus. Zofran 4 mg ODT. Toradol 30 mg IV. Benadryl 25 mg IV. Morphine 4 mg IV. Repeated morphine 2 mg IV. Diagnosis Primary Impression: Sickle cell pain crisis Patient Instructions: General Instructions Additional Instructions: Continue all medications at home. Follow-up with personal physician. Return if worse. Med/Other Pt SpecificInfo: No Change to Meds Disposition: 01 DISCHARGE HOME Condition: Stable Christian Rubio MD January 20, 2018 09:20
[2018-01-20] MEDS ORDERED: ONDANSETRON ODT 4 MG TAB PO ONE (09:30)
[2018-01-20 10:07] VITALS: RESP 17; O2SAT 98
[2018-01-20 10:12] LABS: AUTOMATED NEUTROPHIL # 10.2 TH/MM3 (1.8-7.7); BASOPHIL # 0.1 TH/MM3 (0-0.2); BASOPHIL % 0.6 % (0.0-2.0); EOSINOPHIL # 0.3 TH/MM3 (0-0.4); EOSINOPHIL % 2.1 % (0.0-4.0); HEMATOCRIT 22.9 % (35.0-46.0); HEMOGLOBIN 7.7 GM/DL (11.6-15.3); LYMPH % 20.7 % (9.0-44.0); LYMPHOCYTE # 3.2 TH/MM3 (1.0-4.8); MEAN CELL VOLUME 85.5 FL (80.0-100.0); MEAN CORPUSCULAR HEMOGLOBIN 28.7 PG (27.0-34.0); MEAN CORPUSCULAR HGB CONC 33.5 % (32.0-36.0); MEAN PLATELET VOLUME 8.5 FL (7.0-11.0); MONO % 11.3 % (0.0-8.0); MONOCYTE # 1.8 TH/MM3 (0-0.9); NEUT % 65.3 % (16.0-70.0); PLATELET COUNT 497 TH/MM3 (150-450); RED BLOOD COUNT 2.67 MIL/MM3 (4.00-5.30); RETIC # 95.7 MIL/L (20.0-150.0); RETIC % 3.6 % (0.4-3.0); WHITE BLOOD COUNT 15.6 TH/MM3 (4.0-11.0)
[2018-01-20 10:26] LABS: BICARBONATE 22.5 MEQ/L (21.0-32.0); CALCIUM 8.5 MG/DL (8.5-10.1); CREATININE 0.72 MG/DL (0.50-1.00)
== END 2018-01-20 11:44 | disposition home or self-care (01) ==
LOC: NEPC 08:53
DX: D57.00 Hb-SS disease with crisis, unspecified (principal)
CPT/HCPCS: 80048; 85025; 85044; 96361; 96374; 96375; 96376; 99284; J1200; J1642; J1885; J2270; J7030

== ENCOUNTER 2018-01-25 23:25 | Inpatient (IN) | payer MEDICAID ==
[2018-01-25 23:28] VITALS: BP 143/66; PULSE 98; RESP 18; TEMP 98.4; O2SAT 100
[2018-01-25] MEDS ORDERED: SODIUM CHLOR 0.9% 1000 ML INJ 1,000 ML IV ONE (23:39)
--- NOTE | 2018-01-25 23:42 | PD ---
HPI Chief Complaint: Sickle Cell Time Seen by Provider: 23:36 Travel History International Travel<30 days: No Contact w/Intl Traveler<30days: No Traveled to known affect area: No History of Present Illness HPI 27-year-old female with history of sickle cell anemia, here for evaluation of diffuse body pains as well as left foot pain. Patient reports that the diffuse body pains are typical for sickle cell crisis. She reports that for the last 3 days she has been having pain in the arch of her left foot. She denies trauma. She describes the pain as a charley horse, moderate to severe, worse with movements and palpation. She is unsure if she has had a fever. No chest pain or dyspnea. PFSH Past Medical History Anemia: Yes (Sickle cell) Asthma: Yes Autoimmune Disease: Yes (SICKLE CELL) Blood Disorders: Yes Anxiety: Yes Depression: No Heart Rhythm Problems: No Cancer: No Cardiovascular Problems: Yes (CHF) High Cholesterol: No Chemotherapy: No Chest Pain: Yes Congestive Heart Failure: Yes COPD: No Diabetes: No Diminished Hearing: No Endocrine: No Genitourinary: No Headaches: Yes Immune Disorder: No Implanted Vascular Access Dvce: Yes Musculoskeletal: No Neurologic: Yes Psychiatric: Yes Reproductive: No Respiratory: Yes (ASTHMA) Immunizations Current: Yes Migraines: Yes Pneumonia: Yes Radiation Therapy: No Sickle Cell Disease: Yes Sleep Apnea: No Thyroid Disease: No PNEUMOCCOCAL Vaccine (Year): 1 ?: Not LMP: 01/23/18 : 1 Para: 1 Miscarriage: 0 : 0 Tubal Ligation: Yes Past Surgical History Abdominal Surgery: Yes (gall stones removed) Body Medical Devices: R Chest Infusaport (3RD) Section: Yes (X 1) Cholecystectomy: Yes Genitourinary Surgery: No Gynecologic Surgery: Yes (c section) Hysterectomy: No Insulin Pump: No Joint Replacement: No Neurologic Surgery: No Oral Surgery: No Pacemaker: No Thoracic Surgery: No Other Surgery: Yes (R port x 3 removed x 2) Social History Alcohol Use: Yes (occ) Tobacco Use: No Substance Use: No Allergies-Medications (Allergen,Severity, Reaction): Coded Allergies: oxycodone (Verified Allergy, Intermediate, itching, 01/25/18) Reported Meds & Prescriptions Reported Meds & Active Scripts Active Hydrocodone-Acetamin 10-325 mg (Hydrocodone/Acetaminophen) 10 Mg-325 Mg Tablet 1 Tab PO Q6HR PRN DO NOT USE THIS MEDICINE IF YOU WILL DRIVE A CAR OR USE A MACHINE, ONLY USE IT WHEN RESTING AT HOME. Hydrea (Hydroxyurea) 500 Mg Cap 500 Mg PO DAILY Folic Acid 1 Mg Tablet 1 Mg PO DAILY 30 Days Reported Ambien (Zolpidem Tartrate) 5 Mg Tab 5 Mg PO HS PRN Proventil Hfa 6.7 GM Inh (Albuterol Sulfate) 90 Mcg/Act Aer 2 Puff INH Q6H PRN Review of Systems Except as stated in HPI: all other systems reviewed are Neg Physical Exam Narrative GENERAL: Well-developed, well-nourished, comfortable, no apparent distress. SKIN: Focused skin assessment warm/dry. No rash. HEAD: Atraumatic. Normocephalic. EYES: Pupils equal and round. No scleral icterus. No injection or drainage. ENT: No nasal bleeding or discharge. Mucous membranes pink and moist. NECK: Trachea midline. No JVD. CARDIOVASCULAR: Regular rate and rhythm. Brisk left dorsalis pedis pulse. RESPIRATORY: No accessory muscle use. Clear to auscultation. Breath sounds equal bilaterally. GASTROINTESTINAL: Abdomen soft, non-tender, nondistended. Hepatic and splenic margins not palpable. MUSCULOSKELETAL: No obvious deformities. No clubbing. No cyanosis. No edema. Left foot without warmth or erythema, without obvious deformity, with moderate tenderness over the arch of her foot. The rest of her joints and extremities are without deformity, without tenderness, without swelling, with normal range of motion. NEUROLOGICAL: Awake and alert. No obvious cranial nerve deficits. Motor grossly within normal limits. Normal speech. PSYCHIATRIC: Appropriate mood and affect; insight and judgment normal. Data Data Last Documented VS Vital Signs Date Time Temp Pulse Resp B/P (MAP) Pulse Ox O2 Delivery O2 Flow Rate FiO2 01/25/18 23:28 98.4 98 18 143/66 (91) 100 Orders Orders Basic Metabolic Panel (Bmp) (01/25/18 23:39) Complete Blood Count With Diff (01/25/18 23:39) Retic Count (01/25/18 23:39) Ecg Monitoring (01/25/18 23:39) Iv Access Insert/Monitor (01/25/18 23:39) Oximetry (01/25/18 23:39) Sodium Chloride 0.9% Flush (Ns Flush) (01/25/18 23:45) Sodium Chlor 0.9% 1000 Ml Inj (Ns 1000 M (01/25/18 23:39) Hydromorphone Pf Inj (Dilaudid Pf Inj) (01/25/18 23:45) Diphenhydramine Inj (Benadryl Inj) (01/25/18 23:45) Foot, Complete ([id number]) (01/25/18 ) Potassium Chloride (Kcl) (01/26/18 00:45) Hydromorphone Pf Inj (Dilaudid Pf Inj) (01/26/18 01:00) Diphenhydramine Inj (Benadryl Inj) (01/26/18 01:00) Type And Screen (01/26/18 00:58) Red Blood Cells (Rbc) (01/26/18 00:58) Blood Product Administration (01/26/18 00:58) Sodium Chlor 0.9% 250 Ml Inj (Ns 250 Ml (01/26/18 01:00) Labs Laboratory Tests Test 01/26/18 00:00 White Blood Count 18.2 TH/MM3 Red Blood Count 2.43 MIL/MM3 Hemoglobin 7.3 GM/DL Hematocrit 20.8 % Mean Corpuscular Volume 85.8 FL Mean Corpuscular Hemoglobin 30.2 PG Mean Corpuscular Hemoglobin Concent 35.2 % Red Cell Distribution Width 16.9 % Platelet Count 580 TH/MM3 Mean Platelet Volume 7.9 FL CBC Comment AUTO DIFF Differential Total Cells Counted 100 Neutrophils % (Manual) 48 % Band Neutrophils % 1 % Lymphocytes % 38 % Monocytes % 3 % Eosinophils % 8 % Basophils % 1 % Neutrophils # (Manual) 9.1 TH/MM3 Metamyelocytes 1 % Nucleated Red Blood Cells 2 /100 WBC Differential Comment FINAL DIFF MANUAL Platelet Estimate HIGH Platelet Morphology Comment NORMAL Sickle Cells 2+ Target Cells 1+ Tear Drop Cells 1+ Reticulocyte Count 8.3 % Absolute Reticulocyte Count 201.3 MIL/L Blood Urea Nitrogen 7 MG/DL Creatinine 0.64 MG/DL Random Glucose 100 MG/DL Calcium Level 8.1 MG/DL Sodium Level 143 MEQ/L Potassium Level 3.2 MEQ/L Chloride Level 110 MEQ/L Carbon Dioxide Level 23.7 MEQ/L Anion Gap 9 MEQ/L Estimat Glomerular Filtration Rate 134 ML/MIN MDM Medical Decision Making Medical Screen Exam Complete: Yes Emergency Medical Condition: Yes Medical Record Reviewed: Yes Differential Diagnosis Vaso-occlusive crisis, plantar fasciitis, stress fracture, septic arthritis less likely, AVN Narrative Course Initial vital signs show heart rate 90, blood pressure 143/66, pulse ox 100% on room air, oral temperature 98.4F. CBC: WBC 18.2, hemoglobin 7.3, hematocrit 20.8, platelets 580. BMP is remarkable for potassium 3.2 which was replaced orally. Reticulocyte count of 8.3%. Left foot x-ray: Unremarkable study. Patient was made aware of all findings. She was seen in relating to the restroom with a limp. She was provided a liter of normal saline IV, 1 mg of IV Dilaudid, 25 mg of IV Benadryl. On reassessment she is complaining of ongoing pain that is generalized as well as pain in her left foot. Clinically there are no signs of septic arthritis of the left foot. She has a slight leukocytosis, however chart review shows that she usually has a slight leukocytosis. She is afebrile. She will be transfused 1 unit of PRBCs and admitted for further treatment and evaluation of vaso-occlusive crisis, anemia, left foot pain. The patient was made aware of all findings and is amenable to this plan. Case discussed with hospitalist Dr. Nieves who will admit the patient to his service. Diagnosis Primary Impression: Vaso-occlusive sickle cell crisis Additional Impressions: Anemia Qualified Codes: D64.9 - Anemia, unspecified Left foot pain Admitting Information Admitting Physician Requests: Observation Boy Farrell MD January 25, 2018 23:42
[2018-01-25] MEDS ORDERED: HYDROmorphone HCL PF 2 MG/ML VIAL IV PUSH ONE (23:45)
[2018-01-25] MEDS ORDERED: SODIUM CHLORIDE 0.9% FLUSH 10 ML FLUSH IVF PRN (23:45)
[2018-01-25] MEDS ORDERED: diphenhydrAMINE HCL 50 MG/ML VIAL IV PUSH ONE (23:45)
[2018-01-26] VITALS (8 sets, daily range): BP systolic 98–112; BP diastolic 57–80; PULSE 74–91; RESP 18; TEMP 97.5–98.7; O2SAT 95–99
[2018-01-26 00:15] LABS: HEMOGLOBIN 7.3 GM/DL (11.6-15.3); MEAN CELL VOLUME 85.8 FL (80.0-100.0); MEAN CORPUSCULAR HEMOGLOBIN 30.2 PG (27.0-34.0); MEAN CORPUSCULAR HGB CONC 35.2 % (32.0-36.0); MEAN PLATELET VOLUME 7.9 FL (7.0-11.0); PLATELET COUNT 580 TH/MM3 (150-450); RED BLOOD COUNT 2.43 MIL/MM3 (4.00-5.30); RED CELL DISTRIBUTION WIDTH 16.9 % (11.6-17.2); RETIC # 201.3 MIL/L (20.0-150.0); RETIC % 8.3 % (0.4-3.0); WHITE BLOOD COUNT 18.2 TH/MM3 (4.0-11.0)
[2018-01-26 00:17] LABS: HEMATOCRIT 20.8 % (35.0-46.0)
[2018-01-26 00:33] LABS: BICARBONATE 23.7 MEQ/L (21.0-32.0); CALCIUM 8.1 MG/DL (8.5-10.1); CREATININE 0.64 MG/DL (0.50-1.00)
[2018-01-26] MEDS ORDERED: POTASSIUM CHLORIDE 20 MEQ CONTROLLED RELEASE TAB PO ONE (00:45)
--- NOTE | 2018-01-26 00:48 | RADRPT ---
EXAM DATE: 01/26/2018 12:26 AM EDT AGE/SEX: 27 years / Female INDICATIONS: Pain at inferior portion of left foot. CLINICAL DATA: This is the patient's initial encounter. Patient reports that signs and symptoms have been present for 1 day and indicates a pain score of 7/10. MEDICAL/SURGICAL HISTORY: . Sickle Cell disease. Congestive heart failure. . Cholecystectomy. Tubal ligation. section. Infusaport. COMPARISON: No prior exams available for comparison. FINDINGS: No definite fractures, or dislocations are identified. No definite lytic or sclerotic les ion is seen. The joint spaces are well maintained. CONCLUSION: Unremarkable study. Electronically signed by: Ciara Garg MD 01/26/2018 12:46 AM EDT
[2018-01-26] MEDS ORDERED: SODIUM CHLOR 0.9% 250 ML INJ 250 ML IV ONE (01:00)
[2018-01-26] MEDS ORDERED: HYDROmorphone HCL PF 2 MG/ML VIAL IV PUSH ONE (01:00)
[2018-01-26] MEDS ORDERED: diphenhydrAMINE HCL 50 MG/ML VIAL IV PUSH ONE (01:00)
[2018-01-26 01:03] LABS: BANDS 1 % (0-6); BASOPHILS 1 % (0-2); CORRECTED NUCLEATED RBC 2 /100 WBC (0-0); LYMPHOCYTES 38 % (9-44); METAMYELOCYTES 1 % (0-1); MONOCYTES 3 % (0-8); NEUTROPHIL # MANUAL DIFF 9.1 TH/MM3 (1.8-7.7); NUCLEATED RED BLOOD CELL 2 (0-0); POLYS (SEG NEUTROPHILS) 48 % (16-70)
[2018-01-26 01:04] LABS: SICKLE CELLS 2+ (NORMAL); TARGET CELLS 1+ (NORMAL); TEARDROP RBCS 1+ (NORMAL)
[2018-01-26] MEDS ORDERED: SENNOSIDES 8.6 MG TAB PO PRN (01:15)
[2018-01-26] MEDS ORDERED: NALOXONE HCL 0.4 MG/ML AMP IV PUSH PRN (01:15)
[2018-01-26] MEDS ORDERED: ACETAMINOPHEN 325 MG TAB PO PRN (01:15)
[2018-01-26] MEDS ORDERED: POTASSIUM CHLORIDE 20 MEQ PWD PACKET PO ONE (01:15)
[2018-01-26] MEDS ORDERED: LACTULOSE SYRUP 20 GM/30 ML CUP PO PRN (01:15)
[2018-01-26] MEDS ORDERED: MAGNESIUM HYDROXIDE SUSP 30 ML CUP PO PRN (01:15)
[2018-01-26] MEDS ORDERED: BISACODYL 10 MG SUPP RECTAL PRN (01:15)
[2018-01-26] MEDS ORDERED: diphenhydrAMINE HCL 25 MG CAP PO PRN (01:45)
--- NOTE | 2018-01-26 02:00 | HHI.HP ---
HPI Service [facility] Primary Care Physician Non-Staff Admission Diagnosis Vaso-occlusive crisis, anemia, left foot pain Diagnoses: Chief Complaint: Pain all over, left foot pain. Travel History International Travel<30 Days: No Contact w/Intl Traveler <30 Da: No Traveled to Known Affected Are: No History of Present Illness Ms. Frazier is a 27-year-old -[place] female with a history of sickle cell disease who presents to the emergency department today due to 2 day duration of generalized pain. She feels that this is similar to her previous sickle cell crisis. Additionally she complains of left foot pain that started after she injured her left ankle 3 days ago. Denies any chest pain, shortness of breath, fever or chills. She follows up with life specialist in the outpatient setting. No changes in bowel or bladder habits. Review of Systems Except as stated in HPI: all other systems reviewed are Neg Past Family Social History Past Medical History Sickle cell disease. Asthma. Past Surgical History , tubal ligation. Reported Medications Hydrocodone-Acetamin 10-325 mg (Hydrocodone/Acetaminophen) 10 Mg-325 Mg Tablet 1 Tab PO Q6HR PRN DO NOT USE THIS MEDICINE IF YOU WILL DRIVE A CAR OR USE A MACHINE, ONLY USE IT WHEN RESTING AT HOME. Hydrea (Hydroxyurea) 500 Mg Cap 500 Mg PO DAILY Folic Acid 1 Mg Tablet 1 Mg PO DAILY 30 Days Reported Ambien (Zolpidem Tartrate) 5 Mg Tab 5 Mg PO HS PRN Proventil Hfa 6.7 GM Inh (Albuterol Sulfate) 90 Mcg/Act Aer 2 Puff INH Q6H PRN Allergies: Coded Allergies: oxycodone (Verified Allergy, Intermediate, itching, 01/25/18) Family History Sister has sickle cell disease. Social History Drinks alcohol occasionally. Denies using tobacco or illicit drugs. Physical Exam Vital Signs Vital Signs Date Time Temp Pulse Resp B/P (MAP) Pulse Ox O2 Delivery O2 Flow Rate FiO2 01/25/18 23:28 98.4 98 18 143/66 (91) 100 Physical Exam GENERAL: This is a well-nourished, well-developed patient, in no apparent distress. SKIN: No rashes, ecchymoses or lesions. Warm and dry. HEAD: Atraumatic. Normocephalic. No temporal or scalp tenderness. EYES: Pupils equal round and reactive. No injection or drainage. ENT: Nose without bleeding, purulent drainage or septal hematoma. Airway patent. NECK: Trachea midline. No lymphadenopathy. Supple, nontender, no meningeal signs. CARDIOVASCULAR: Regular rate and rhythm without murmurs, gallops, or rubs. No JVD. RESPIRATORY: Clear to auscultation. Breath sounds equal bilaterally. No wheezes , rales, or rhonchi. GASTROINTESTINAL: Abdomen soft, non-tender, nondistended. No guarding. MUSCULOSKELETAL: Extremities without clubbing, cyanosis, or edema. NEUROLOGICAL: Awake and alert. Cranial nerves II through XII intact. No focal neurological deficits. Normal speech. Laboratory Laboratory Tests Test 01/26/18 00:00 White Blood Count 18.2 Red Blood Count 2.43 Hemoglobin 7.3 Hematocrit 20.8 Mean Corpuscular Volume 85.8 Mean Corpuscular Hemoglobin 30.2 Mean Corpuscular Hemoglobin Concent 35.2 Red Cell Distribution Width 16.9 Platelet Count 580 Mean Platelet Volume 7.9 CBC Comment AUTO DIFF Differential Total Cells Counted 100 Neutrophils % (Manual) 48 Band Neutrophils % 1 Lymphocytes % 38 Monocytes % 3 Eosinophils % 8 Basophils % 1 Neutrophils # (Manual) 9.1 Metamyelocytes 1 Nucleated Red Blood Cells 2 Differential Comment FINAL DIFF MANUAL Platelet Estimate HIGH Platelet Morphology Comment NORMAL Sickle Cells 2+ Target Cells 1+ Tear Drop Cells 1+ Reticulocyte Count 8.3 Absolute Reticulocyte Count 201.3 Blood Urea Nitrogen 7 Creatinine 0.64 Random Glucose 100 Calcium Level 8.1 Sodium Level 143 Potassium Level 3.2 Chloride Level 110 Carbon Dioxide Level 23.7 Anion Gap 9 Estimat Glomerular Filtration Rate 134 Result Diagram: 01/26/18 0000 01/26/18 0000 Imaging Last Impressions Foot X-Ray 01/25/18 0000 Signed Impressions: CONCLUSION: Unremarkable study. Caprini VTE Risk Assessment Caprini VTE Risk Assessment: Mod/High Risk (score >= 2) Caprini Risk Assessment Model Point Value = 1 Point Value = 2 Point Value = 3 Point Value = 5 Age 41-60 Minor surgery BMI > 25 kg/m2 Swollen legs Varicose veins or History of unexplained or recurrent spontaneous Oral contraceptives or hormone replacement Sepsis (< 1 month) Serious lung disease, including pneumonia (< 1 month) Abnormal pulmonary function Acute myocardial infarction Congestive heart failure (< 1 month) History of inflammatory bowel disease Medical patient at bed rest Age 61-74 Arthroscopic surgery Major open surgery (> 45 min) Laparoscopic surgery (> 45 min) Malignancy Confined to bed (> 72 hours) Immobilizing plaster cast Central venous access Age >= 75 History of VTE Family history of VTE Factor V Leiden Prothrombin [id number] Lupus anticoagulant Anticardiolipin antibodies Elevated serum homocysteine Heparin-induced thrombocytopenia Other congenital or acquired thrombophilia Stroke (< 1 month) Elective arthroplasty Hip, pelvis, or leg fracture Acute spinal cord injury (< 1 month) Prophylaxis Regimen Total Risk Factor Score Risk Level Prophylaxis Regimen 0-1 Low Early ambulation 2 Moderate Order ONE of the following: *Sequential Compression Device (SCD) *Heparin 5000 units SQ BID 3-4 Higher Order ONE of the following medications: *Heparin 5000 units SQ TID *Enoxaparin/Lovenox 40 mg SQ daily (WT < 150 kg, CrCl > 30 mL/min) *Enoxaparin/Lovenox 30 mg SQ daily (WT < 150 kg, CrCl > 10-29 mL/min) *Enoxaparin/Lovenox 30 mg SQ BID (WT < 150 kg, CrCl > 30 mL/min) AND/OR *Sequential Compression Device (SCD) 5 or more Highest Order ONE of the following medications: *Heparin 5000 units SQ TID (Preferred with Epidurals) *Enoxaparin/Lovenox 40 mg SQ daily (WT < 150 kg, CrCl > 30 mL/min) *Enoxaparin/Lovenox 30 mg SQ daily (WT < 150 kg, CrCl > 10-29 mL/min) *Enoxaparin/Lovenox 30 mg SQ BID (WT < 150 kg, CrCl > 30 mL/min) AND *Sequential Compression Device (SCD) Assessment and Plan Problem List: (1) Sickle cell pain crisis ICD Code: D57.00 - Hb-SS disease with crisis, unspecified Status: Acute Assessment and Plan Ms. Frazier is a 27-year-old -[place] female with a history of sickle cell disease who presents to the emergency department due to generalized body ache. She denies any chest pain, shortness of breath. No fever or chills. Her generalized pain started 2 days prior to this admission. She additionally complains of left ankle pain due to injury 3 days ago. Sickle cell pain crisis -We will keep patient on IV fluid, continue folic acid and hydroxyurea. -Acetaminophen, [place], morphine for pain. -Benadryl for itching. Sickle cell anemia -Hemoglobin 7.3. Currently no evidence of acute chest syndrome or stroke. -No transfusion indicated at this time. In adults, in uncomplicated sickle cell pain crisis, transfusion is recommended < 6. Mild hypokalemia -potassium 3.2. Oral potassium was given in the ED. Full code. SCDs. Wolfgang Nieves DO January 26, 2018 2:00 am
[2018-01-26] MEDS: SODIUM CHLOR 0.9% 1000 ML INJ 1,000 ML IV SCH ×3 (03:01→17:49)
[2018-01-26] MEDS: MORPHINE SULFATE 4 MG/ML INJ IV PUSH PRN ×2 (03:02→05:54)
[2018-01-26] MEDS: SODIUM CHLORIDE 0.9% FLUSH 10 ML FLUSH IV FLUSH SCH ×2 (03:02→20:45)
[2018-01-26] MEDS: ZOLPIDEM TARTRATE 5 MG TAB PO PRN ×2 (03:03→20:45)
[2018-01-26] MEDS: FOLIC ACID 1 MG TAB PO SCH (08:34)
[2018-01-26] MEDS: HYDROXYUREA 500 MG CAP PO SCH (08:35)
--- NOTE | 2018-01-26 08:40 | HHI.PR ---
Subjective Remarks Follow-up for sickle cell crisis. Patient reports continued pain "all over", not much improved compared to yesterday. She denies any specific chest pain or shortness of breath. She states her body just aches. She also reports chills, but no fevers. She also complains of left foot pain, worse at the plantar aspect. She denies any recent injury to the left foot. She states she feels like she pulled something in the foot. Denies any significant swelling of the left foot or ankle. She is requesting IV Dilaudid instead of IV morphine because the morphine makes her itch. She states she requires IV Dilaudid every time she is hospitalized. She has no other medical complaints at this time. Objective Vitals Vital Signs Date Time Temp Pulse Resp B/P (MAP) Pulse Ox O2 Delivery O2 Flow Rate FiO2 01/26/18 07:06 98.3 84 18 108/63 (78) 98 01/26/18 06:21 18 01/26/18 06:20 98.4 74 18 112/76 01/26/18 04:31 98.0 76 18 106/80 98 01/26/18 03:00 98.0 80 18 110/70 99 01/26/18 02:37 98.0 89 18 104/60 98 01/25/18 23:28 98.4 98 18 143/66 (91) 100 I/O 01/25/18 01/25/18 01/25/18 01/26/18 01/26/18 01/26/18 07:00 15:00 23:00 07:00 15:00 23:00 Intake Total 1025 ml Balance 1025 ml Intake Oral 200 ml Packed Cells 400 ml Blood Product IV Normal Saline Flush 425 ml Result Diagram: 01/26/18 0000 01/26/18 0000 Imaging Last Impressions Foot X-Ray 01/25/18 0000 Signed Impressions: CONCLUSION: Unremarkable study. Objective Remarks GENERAL: Well-nourished, well-developed young AA female patient in [facility]. SKIN: Warm and dry. No rash. HEENT: Normocephalic. Atraumatic. Pupils equal and round. Mucous membranes pink and moist. CARDIOVASCULAR: Regular rate and rhythm. No murmur appreciated. RESPIRATORY: No accessory muscle use. Clear to auscultation. Breath sounds equal bilaterally. GASTROINTESTINAL: Abdomen soft, non-tender, nondistended. Normoactive bowel sounds x4. MUSCULOSKELETAL: No obvious deformities. Extremities without clubbing, cyanosis , or edema. Left plantar kettle tender to palpation, worse with extension of the toes. No left foot/ankle erythema or edema. NEUROLOGICAL: Awake and alert. No obvious cranial nerve deficits. Motor grossly within normal limits. Moving all extremities spontaneously. Normal speech. PSYCHIATRIC: Appropriate mood and affect; insight and judgment normal. Medications and IVs Current Medications Medications (Trade) Dose Ordered Sig/Pavel Route Start Time Stop Time Status Last Admin Sodium Chloride 250 ml @ 15 mls/hr ONCE ONCE IV 01/26/18 01:00 01/26/18 17:39 01/26/18 03:01 Sodium Chloride 1,000 ml @ 100 mls/hr Q10H IV 01/26/18 01:06 01/26/18 03:01 (NS Flush) 2 ml UNSCH PRN IV FLUSH 01/26/18 01:15 (NS Flush) 2 ml BID IV FLUSH 01/26/18 09:00 01/26/18 03:02 (Tylenol) 650 mg Q4H PRN PO 01/26/18 01:15 (Narcan Inj) 0.4 mg UNSCH PRN IV PUSH 01/26/18 01:15 (Milk Of Magnesia Liq) 30 ml Q12H PRN PO 01/26/18 01:15 (Senokot) 17.2 mg Q12H PRN PO 01/26/18 01:15 (Dulcolax Supp) 10 mg DAILY PRN RECTAL 01/26/18 01:15 (Lactulose Liq) 30 ml DAILY PRN PO 01/26/18 01:15 ([place] 7.5-325 Mg) 1 tab Q6H PRN PO 01/26/18 01:15 (Morphine Inj) 4 mg Q3H PRN IV PUSH 01/26/18 01:15 01/26/18 05:54 (Folate) 1 mg DAILY PO 01/26/18 09:00 (Hydrea) 500 mg DAILY PO 01/26/18 09:00 (Ambien) 5 mg HS PRN PO 01/26/18 01:15 01/26/18 03:03 (Benadryl) 25 mg Q6H PRN PO 5/29/18 01:45 A/P Problem List: (1) Sickle cell pain crisis ICD Code: D57.00 - Hb-SS disease with crisis, unspecified Status: Acute Assessment and Plan 27-year-old -[place] female with a history of sickle cell disease who presents to the emergency department due to generalized body ache. She denies any chest pain, shortness of breath. No fever or chills. Her generalized pain started 2 days prior to this admission. She additionally complains of left foot pain. Sickle cell pain crisis: Hgb 7.3 upon arrival, consistent with baseline -Continue on IV fluid, continue folic acid, and hydroxyurea. -Continue pain control with Acetaminophen, [place] prn, and IV Dilaudid prn breakthrough pain (pain not controlled on morphine and patient complains of pruritus with morphine) -Continue IV Benadryl 25mg q6h prn itching. (patient specifically requesting IV benadryl) -Monitor for improvement Sickle cell anemia -Hemoglobin 7.3, s/p 1u pRBC transfusion in the ER. Currently no evidence of acute chest syndrome or stroke. -No transfusion indicated at this time. In adults, in uncomplicated sickle cell pain crisis, transfusion is recommended < 6. -Repeat CBC today Mild hypokalemia -potassium 3.2. -Oral potassium was given in the ED. -Repeat BMP today Plantar Fasciitis: patient complains of left plantar foot pain, no specific injury, exam consistent with plantar fasciitis. -foot xray reviewed and unremarkable -educated on stretching exercises -on pain medications as above DVT Prophylaxis: teds/SCDs; avoid chemoprophylaxis with anemia Full code. Discharge Planning Discharge pending further clinical improvement. Will likely require additional 1 -2 days of hospitalization for IVF and pain control. Honey Petersen PA-C January 26, 2018 08:40
[2018-01-26] MEDS: HYDROmorphone HCL PF 2 MG/ML VIAL IV PUSH PRN ×6 (09:02→23:51)
[2018-01-26] MEDS: diphenhydrAMINE HCL 50 MG/ML VIAL IV PUSH PRN ×3 (09:44→20:48)
[2018-01-26 12:59] LABS: AUTOMATED NEUTROPHIL # 10.1 TH/MM3 (1.8-7.7); BASOPHIL # 0.1 TH/MM3 (0-0.2); BASOPHIL % 0.8 % (0.0-2.0); EOSINOPHIL # 0.7 TH/MM3 (0-0.4); EOSINOPHIL % 3.8 % (0.0-4.0); HEMOGLOBIN 7.9 GM/DL (11.6-15.3); LYMPH % 25.5 % (9.0-44.0); LYMPHOCYTE # 4.5 TH/MM3 (1.0-4.8); MEAN CORPUSCULAR HEMOGLOBIN 29.8 PG (27.0-34.0); MEAN CORPUSCULAR HGB CONC 34.3 % (32.0-36.0); MEAN PLATELET VOLUME 9.2 FL (7.0-11.0); MONO % 12.2 % (0.0-8.0); MONOCYTE # 2.1 TH/MM3 (0-0.9); NEUT % 57.7 % (16.0-70.0); PLATELET COUNT 415 TH/MM3 (150-450); RED BLOOD COUNT 2.65 MIL/MM3 (4.00-5.30); RED CELL DISTRIBUTION WIDTH 17.1 % (11.6-17.2); WHITE BLOOD COUNT 17.5 TH/MM3 (4.0-11.0)
[2018-01-26 13:22] LABS: BICARBONATE 24.3 MEQ/L (21.0-32.0); CALCIUM 8.4 MG/DL (8.5-10.1); CREATININE 0.66 MG/DL (0.50-1.00)
[2018-01-27] VITALS: BP 116/65; PULSE 90; RESP 18; TEMP 98.6; O2SAT 96
[2018-01-27] MEDS: diphenhydrAMINE HCL 50 MG/ML VIAL IV PUSH PRN ×4 (02:49→21:21)
[2018-01-27] MEDS: HYDROmorphone HCL PF 2 MG/ML VIAL IV PUSH PRN ×7 (02:53→21:22)
[2018-01-27] MEDS: SODIUM CHLOR 0.9% 1000 ML INJ 1,000 ML IV SCH ×2 (03:00→20:22)
[2018-01-27 04:00] VITALS: BP 124/60; PULSE 109; RESP 20; TEMP 98.9; O2SAT 97
[2018-01-27 07:33] VITALS: BP 109/65; PULSE 78; RESP 16; TEMP 98; O2SAT 97
[2018-01-27] MEDS: SODIUM CHLORIDE 0.9% FLUSH 10 ML FLUSH IV FLUSH SCH ×2 (09:00→20:21)
[2018-01-27] MEDS: FOLIC ACID 1 MG TAB PO SCH (09:14)
[2018-01-27 10:58] VITALS: BP 107/72; PULSE 81; RESP 18; TEMP 98.8; O2SAT 98
[2018-01-27] MEDS: HYDROXYUREA 500 MG CAP PO SCH (11:50)
[2018-01-27 12:17] LABS: AUTOMATED NEUTROPHIL # 8.5 TH/MM3 (1.8-7.7); BASOPHIL # 0.1 TH/MM3 (0-0.2); BASOPHIL % 0.7 % (0.0-2.0); EOSINOPHIL % 6.6 % (0.0-4.0); HEMATOCRIT 22.4 % (35.0-46.0); HEMOGLOBIN 7.8 GM/DL (11.6-15.3); LYMPHOCYTE # 3.3 TH/MM3 (1.0-4.8); MEAN CELL VOLUME 85.9 FL (80.0-100.0); MEAN CORPUSCULAR HGB CONC 34.9 % (32.0-36.0); MEAN PLATELET VOLUME 7.8 FL (7.0-11.0); MONO % 14.8 % (0.0-8.0); MONOCYTE # 2.2 TH/MM3 (0-0.9); NEUT % 55.9 % (16.0-70.0); PLATELET COUNT 530 TH/MM3 (150-450); RED BLOOD COUNT 2.61 MIL/MM3 (4.00-5.30); RED CELL DISTRIBUTION WIDTH 17.4 % (11.6-17.2); WHITE BLOOD COUNT 15.1 TH/MM3 (4.0-11.0)
[2018-01-27 12:43] LABS: BICARBONATE 23.7 MEQ/L (21.0-32.0); CALCIUM 8.2 MG/DL (8.5-10.1); CREATININE 0.65 MG/DL (0.50-1.00)
[2018-01-27 13:28] LABS: BANDS 1 % (0-6); BASOPHILS 1 % (0-2); HOWELL-JOLLY BODIES PRESENT (NONE SEEN); LYMPHOCYTES 22 % (9-44); MONOCYTES 11 % (0-8); MYELOCYTES 1 % (0-0); NEUTROPHIL # MANUAL DIFF 9.2 TH/MM3 (1.8-7.7); POLYS (SEG NEUTROPHILS) 59 % (16-70); SICKLE CELLS 1+ (NORMAL)
--- NOTE | 2018-01-27 14:37 | HHI.PR ---
Subjective Remarks Follow up sickle cell pain crisis. Patient states that she feels about the same today. Pain medication is helping. Pain is "all over", but worst in the left foot. No chest pain. Some dyspnea. Objective Vitals Vital Signs Date Time Temp Pulse Resp B/P (MAP) Pulse Ox O2 Delivery O2 Flow Rate FiO2 01/27/18 10:58 98.8 81 18 107/72 (84) 98 01/27/18 07:33 98.0 78 16 109/65 (80) 97 01/27/18 04:00 98.9 109 20 124/60 (81) 97 01/27/18 03:23 19 01/27/18 00:00 98.6 90 18 116/65 (82) 96 01/26/18 19:47 98.7 86 18 98/60 (73) 99 01/26/18 16:05 98.7 79 18 101/57 (72) 97 I/O 01/26/18 01/26/18 01/26/18 01/27/18 01/27/18 01/27/18 07:00 15:00 23:00 07:00 15:00 23:00 Intake Total 1025 ml 885 ml 1345 ml Balance 1025 ml 885 ml 1345 ml Intake Oral 200 ml 885 ml 1345 ml Packed Cells 400 ml Blood Product IV Normal Saline Flush 425 ml # Voids 2 11 # Bowel Movements 1 Result Diagram: 01/27/18 1200 01/27/18 1200 Imaging Last Impressions Foot X-Ray 01/25/18 0000 Signed Impressions: CONCLUSION: Unremarkable study. Objective Remarks General: No acute distress. Appears uncomfortable. Heart: Regular rate and rhythm. No murmur. Lungs: Clear to auscultation bilaterally. No wheezes, rales, or rhonchi. Breathing is nonlabored. Abdomen: Soft, nontender, nondistended. Extremities: No lower extremity edema. Left reagent tender to palpation. Psych: Alert and oriented. Neuro: Normal speech. No focal deficits noted. 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 Sickle cell pain crisis: Continue IV fluids, pain control. Continue folic acid, hydroxyurea. 2. Anemia: Secondary to sickle cell disease. Received 1 unit PRBCs. Hemoglobin low, but stable. 3. Hypokalemia: Mild. Improved. 4. Plantar Fasciitis, left foot: Continue pain control. Ice pack as needed. 5. DVT prophylaxis: Regis, ADRIEL tillman. No chemical prophylaxis due to anemia. Discharge Planning Pending clinical improvement. Hermilo Espinosa MD January 27, 2018 14:37
[2018-01-27 17:54] VITALS: BP 107/76; PULSE 76; RESP 18; TEMP 98.5; O2SAT 98
[2018-01-27 19:25] VITALS: BP 126/78; PULSE 86; RESP 16; TEMP 99.1; O2SAT 100
[2018-01-27] MEDS: ZOLPIDEM TARTRATE 5 MG TAB PO PRN (21:22)
[2018-01-28] MEDS: HYDROmorphone HCL PF 2 MG/ML VIAL IV PUSH PRN ×8 (00:16→23:37)
[2018-01-28 00:46] VITALS: BP 114/56; PULSE 77; RESP 16; TEMP 98.8; O2SAT 100
[2018-01-28] MEDS: diphenhydrAMINE HCL 50 MG/ML VIAL IV PUSH PRN ×4 (03:16→23:37)
[2018-01-28] MEDS: SODIUM CHLOR 0.9% 1000 ML INJ 1,000 ML IV SCH ×3 (03:16→17:40)
[2018-01-28 03:36] VITALS: BP 115/60; PULSE 89; RESP 16; TEMP 98.8
[2018-01-28] MEDS: ACETAMINOPHEN/HYDROcodone 325 MG/7.5 MG TAB PO PRN ×3 (06:22→19:28)
[2018-01-28 07:10] VITALS: BP 128/78; PULSE 86; RESP 20; TEMP 98.7; O2SAT 99
[2018-01-28] MEDS: FOLIC ACID 1 MG TAB PO SCH (08:22)
[2018-01-28] MEDS: SODIUM CHLORIDE 0.9% FLUSH 10 ML FLUSH IV FLUSH SCH ×2 (08:22→19:25)
[2018-01-28] MEDS: HYDROXYUREA 500 MG CAP PO SCH (08:24)
[2018-01-28 11:06] VITALS: BP 122/71; PULSE 85; RESP 20; TEMP 98.5; O2SAT 99
--- NOTE | 2018-01-28 11:35 | HHI.PR ---
Subjective Remarks Follow-up sickle cell pain crisis. Patient states that her pain is improving, but she does not feel ready to go home yet. Left foot pain has improved. No chest pain. She does report dyspnea. Objective Vitals Vital Signs Date Time Temp Pulse Resp B/P (MAP) Pulse Ox O2 Delivery O2 Flow Rate FiO2 01/28/18 11:06 98.5 85 20 122/71 (88) 99 01/28/18 07:10 98.7 86 20 128/78 (95) 99 01/28/18 03:47 18 01/28/18 03:36 98.8 89 16 115/60 (78) 01/28/18 00:46 98.8 77 16 114/56 (75) 100 01/27/18 19:25 99.1 86 16 126/78 (94) 100 01/27/18 17:54 98.5 76 18 107/76 (86) 98 I/O 01/27/18 01/27/18 01/27/18 01/28/18 01/28/18 01/28/18 07:00 15:00 23:00 07:00 15:00 23:00 Intake Total 1345 ml 120 ml Balance 1345 ml 120 ml Intake Oral 1345 ml 120 ml # Voids 11 # Bowel Movements 1 Result Diagram: 01/27/18 1200 01/27/18 1200 Imaging Last Impressions Foot X-Ray 01/25/18 0000 Signed Impressions: CONCLUSION: Unremarkable study. Objective Remarks General: No acute distress. Appears uncomfortable. Heart: Regular rate and rhythm. No murmur. Lungs: Clear to auscultation bilaterally. No wheezes, rales, or rhonchi. Breathing is nonlabored. Abdomen: Soft, nontender, nondistended. Extremities: No lower extremity edema. Left podiatric foot and ankle specialist to palpation on the plantar surface. Psych: Alert and oriented. Neuro: Normal speech. No focal deficits noted. 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 Sickle cell pain crisis: Continue IV fluids, pain control. Continue folic acid, hydroxyurea. Improving slowly. 2. Anemia: Secondary to sickle cell disease. Received 1 unit PRBCs. 3. Hypokalemia: Mild. Improved. 4. Plantar Fasciitis, left foot: Continue pain control. Ice pack as needed. 5. DVT prophylaxis: SCDs, ADRIEL tillman. No chemical prophylaxis due to anemia. Discharge Planning Pending clinical improvement. Hermilo Espinosa MD January 28, 2018 11:35
[2018-01-28 16:00] VITALS: BP 118/64; PULSE 83; RESP 16; TEMP 98; O2SAT 98
[2018-01-28] MEDS: SODIUM CHLORIDE 0.9% FLUSH 10 ML FLUSH IV FLUSH PRN (17:40)
[2018-01-28 20:00] VITALS: BP 114/66; PULSE 84; RESP 16; TEMP 98.8; O2SAT 100
[2018-01-28] MEDS: ZOLPIDEM TARTRATE 5 MG TAB PO PRN (23:36)
[2018-01-29] VITALS: BP 115/67; PULSE 82; RESP 16; TEMP 98.6; O2SAT 100
[2018-01-29] MEDS: ACETAMINOPHEN/HYDROcodone 325 MG/7.5 MG TAB PO PRN ×4 (01:20→19:56)
[2018-01-29] MEDS: HYDROmorphone HCL PF 2 MG/ML VIAL IV PUSH PRN ×6 (02:32→23:20)
[2018-01-29] MEDS: diphenhydrAMINE HCL 50 MG/ML VIAL IV PUSH PRN ×4 (05:32→20:36)
[2018-01-29 08:00] VITALS: BP 112/57; PULSE 76; RESP 18; TEMP 98.1; O2SAT 99
[2018-01-29] MEDS: FOLIC ACID 1 MG TAB PO SCH (08:04)
[2018-01-29] MEDS: HYDROXYUREA 500 MG CAP PO SCH (08:07)
[2018-01-29] MEDS: SODIUM CHLORIDE 0.9% FLUSH 10 ML FLUSH IV FLUSH SCH ×2 (08:08→19:56)
[2018-01-29] MEDS: SODIUM CHLORIDE 0.9% FLUSH 10 ML FLUSH IV FLUSH PRN ×2 (11:26→17:22)
[2018-01-29] MEDS: SODIUM CHLOR 0.9% 1000 ML INJ 1,000 ML IV SCH ×3 (11:30→23:15)
[2018-01-29 12:00] VITALS: BP 124/71; PULSE 79; RESP 16; TEMP 98.2; O2SAT 98
[2018-01-29 12:09] LABS: BASOPHIL % 0.3 % (0.0-2.0); EOSINOPHIL # 0.8 TH/MM3 (0-0.4); EOSINOPHIL % 5.9 % (0.0-4.0); HEMATOCRIT 22.6 % (35.0-46.0); HEMOGLOBIN 7.8 GM/DL (11.6-15.3); LYMPH % 20.4 % (9.0-44.0); LYMPHOCYTE # 2.7 TH/MM3 (1.0-4.8); MEAN CELL VOLUME 87.1 FL (80.0-100.0); MEAN CORPUSCULAR HEMOGLOBIN 30.3 PG (27.0-34.0); MEAN CORPUSCULAR HGB CONC 34.7 % (32.0-36.0); MEAN PLATELET VOLUME 7.9 FL (7.0-11.0); MONO % 12.4 % (0.0-8.0); MONOCYTE # 1.6 TH/MM3 (0-0.9); PLATELET COUNT 540 TH/MM3 (150-450); RED BLOOD COUNT 2.59 MIL/MM3 (4.00-5.30); RED CELL DISTRIBUTION WIDTH 17.7 % (11.6-17.2); RETIC # 171.2 MIL/L (20.0-150.0); RETIC % 6.6 % (0.4-3.0); WHITE BLOOD COUNT 13.2 TH/MM3 (4.0-11.0)
[2018-01-29 12:30] LABS: ALBUMIN 3.4 GM/DL (3.4-5.0); ALT (GPT) 21 U/L (10-53); AST (GOT) 55 U/L (15-37); BICARBONATE 23.1 MEQ/L (21.0-32.0); BLOOD UREA NITROGEN 5 MG/DL (7-18); CALCIUM 8.4 MG/DL (8.5-10.1); CHLORIDE 110 MEQ/L (98-107); CREATININE 0.64 MG/DL (0.50-1.00); GLOMERULAR FILTRATION RATE 134 ML/MIN (>89); GLUCOSE,RANDOM 74 MG/DL (74-106); SODIUM (NA) 141 MEQ/L (136-145)
[2018-01-29 12:33] LABS: ALKALINE PHOSPHATASE 83 U/L (45-117); TOTAL BILIRUBIN ADULT 1.4 MG/DL (0.2-1.0); TOTAL PROTEIN 6.9 GM/DL (6.4-8.2)
[2018-01-29 13:45] LABS: SICKLE CELLS 1+ (NORMAL); TARGET CELLS 1+ (NORMAL)
--- NOTE | 2018-01-29 14:40 | HHI.PR ---
Subjective Remarks c/o pain "everywhere" denies chest pain Denies sob Afebrile Objective Vitals Vital Signs Date Time Temp Pulse Resp B/P (MAP) Pulse Ox O2 Delivery O2 Flow Rate FiO2 01/29/18 12:00 98.2 79 16 124/71 (88) 98 01/29/18 08:00 98.1 76 18 112/57 (75) 99 01/29/18 06:02 16 01/29/18 02:20 17 01/29/18 00:00 98.6 82 16 115/67 (83) 100 01/28/18 20:00 98.8 84 16 114/66 (82) 100 01/28/18 16:00 98.0 83 16 118/64 (82) 98 I/O 01/28/18 01/28/18 01/28/18 01/29/18 01/29/18 01/29/18 07:00 15:00 23:00 07:00 15:00 23:00 Intake Total 1960 ml 950 ml Balance 1960 ml 950 ml Intake Oral 960 ml 950 ml IV Total 1000 ml # Voids 4 3 3 # Bowel Movements 2 0 Result Diagram: 01/29/18 1130 01/29/18 1130 Imaging Last Impressions Foot X-Ray 01/25/18 0000 Signed Impressions: CONCLUSION: Unremarkable study. Objective Remarks General: No acute distress. Appears uncomfortable. Heart: Regular rate and rhythm. No murmur. Lungs: Clear to auscultation bilaterally. No wheezes, rales, or rhonchi. Breathing is nonlabored. Abdomen: Soft, nontender, nondistended. Extremities: No lower extremity edema. Left diaper machine tender to palpation on the plantar surface. Psych: Alert and oriented. Neuro: Normal speech. No focal deficits noted. 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 Sickle cell pain crisis. Continue IV fluids and pain control. Continue folic acid, hydroxyurea. Patient's hemoglobin stable at 7.8. Reticulocyte count is elevated at 6.6, absolute reticulocyte count is 171.2 was 201.3 on admission. Haptoglobin is less than 10. Consult hematology 2. Chronic anemia. Chronic anemia is likely secondary to sickle cell disease. The patient received 1 unit of PRBCs. 3. Hypokalemia. Replaced and now within normal range. Continue to monitor BMP and replace as needed. 4. Leukocytosis Chronic. Continue to monitor CBC. There is no evidence of infection. Omero Beavers MD Jan 29, 2018 14:40
--- NOTE | 2018-01-29 14:52 | PD.PN.STU ---
Subjective Remarks 27 y f w/ hx of sickle cell being followed for acute generalized pain and foot pain Day 3 of hospitalization At this time, pt reports that she is in pain and clearly states that she would prefer I do not ask her further questions and refuses PE Objective Vitals Vital Signs Date Time Temp Pulse Resp B/P (MAP) Pulse Ox O2 Delivery O2 Flow Rate FiO2 01/29/18 12:00 98.2 79 16 124/71 (88) 98 01/29/18 08:00 98.1 76 18 112/57 (75) 99 01/29/18 06:02 16 01/29/18 02:20 17 01/29/18 00:00 98.6 82 16 115/67 (83) 100 01/28/18 20:00 98.8 84 16 114/66 (82) 100 01/28/18 16:00 98.0 83 16 118/64 (82) 98 I/O 01/28/18 01/28/18 01/28/18 01/29/18 01/29/18 01/29/18 07:00 15:00 23:00 07:00 15:00 23:00 Intake Total 1960 ml 950 ml Balance 1960 ml 950 ml Intake Oral 960 ml 950 ml IV Total 1000 ml # Voids 4 3 3 # Bowel Movements 2 0 Result Diagram: 01/29/18 1130 01/29/18 1130 Other Results Vital Signs, 24 Hour Date Time Temp Pulse Resp B/P (MAP) Pulse Ox O2 Delivery O2 Flow Rate FiO2 01/29/18 12:00 98.2 79 16 124/71 (88) 98 01/29/18 08:00 98.1 76 18 112/57 (75) 99 01/29/18 06:02 16 01/29/18 02:20 17 01/29/18 00:00 98.6 82 16 115/67 (83) 100 01/28/18 20:00 98.8 84 16 114/66 (82) 100 01/28/18 16:00 98.0 83 16 118/64 (82) 98 Allergies Coded Allergies oxycodone (Verified Allergy, Intermediate, itching, 01/25/18) Intake/Outtake 01/29/18 01/29/18 11:00 23:00 Intake Total 950 ml Balance 950 ml Laboratory Tests per Verito Test 01/29/18 11:30 Blood Urea Nitrogen 5 MG/DL Creatinine 0.64 MG/DL Random Glucose 74 MG/DL Total Protein 6.9 GM/DL Albumin 3.4 GM/DL Calcium Level 8.4 MG/DL Alkaline Phosphatase 83 U/L Aspartate Amino Transf (AST/SGOT) 55 U/L Alanine Aminotransferase (ALT/SGPT) 21 U/L Lactate Dehydrogenase 392 U/L Total Bilirubin 1.4 MG/DL Sodium Level 141 MEQ/L Potassium Level 3.7 MEQ/L Chloride Level 110 MEQ/L Carbon Dioxide Level 23.1 MEQ/L Red Blood Count 2.59 MIL/MM3 White Blood Count 13.2 TH/MM3 Active Scripts Active Hydrocodone-Acetamin 10-325 mg (Hydrocodone/Acetaminophen) 10 Mg-325 Mg Tablet 1 Tab PO Q6HR PRN DO NOT USE THIS MEDICINE IF YOU WILL DRIVE A CAR OR USE A MACHINE, ONLY USE IT WHEN RESTING AT HOME. Hydrea (Hydroxyurea) 500 Mg Cap 500 Mg PO DAILY Folic Acid 1 Mg Tablet 1 Mg PO DAILY 30 Days Reported Ambien (Zolpidem Tartrate) 5 Mg Tab 5 Mg PO HS PRN Proventil Hfa 6.7 GM Inh (Albuterol Sulfate) 90 Mcg/Act Aer 2 Puff INH Q6H PRN Objective Remarks pt is withdrawn PE deferred due to pt refusal Medications and IVs Current Medications Medications (Trade) Dose Ordered Sig/Pavel Route Start Time Stop Time Status Last Admin Sodium Chloride 1,000 ml @ 100 mls/hr Q10H IV 01/26/18 01:06 01/29/18 11:30 (NS Flush) 2 ml UNSCH PRN IV FLUSH 01/26/18 01:15 01/29/18 11:26 (NS Flush) 2 ml BID IV FLUSH 01/26/18 09:00 01/29/18 08:08 (Tylenol) 650 mg Q4H PRN PO 01/26/18 01:15 (Narcan Inj) 0.4 mg UNSCH PRN IV PUSH 01/26/18 01:15 (Milk Of Magnesia Liq) 30 ml Q12H PRN PO 01/26/18 01:15 (Senokot) 17.2 mg Q12H PRN PO 01/26/18 01:15 (Dulcolax Supp) 10 mg DAILY PRN RECTAL 01/26/18 01:15 (Lactulose Liq) 30 ml DAILY PRN PO 01/26/18 01:15 ([place] 7.5-325 Mg) 1 tab Q6H PRN PO 01/26/18 01:15 01/29/18 14:26 (Folate) 1 mg DAILY PO 01/26/18 09:00 01/29/18 08:04 (Hydrea) 500 mg DAILY PO 01/26/18 09:00 01/29/18 08:07 (Ambien) 5 mg HS PRN PO 01/26/18 01:15 01/28/18 23:36 (Dilaudid Pf Inj) 1 mg Q3H PRN IV PUSH 01/26/18 08:45 01/29/18 11:25 (Benadryl Inj) 25 mg Q6H PRN IV PUSH 01/26/18 09:30 01/29/18 11:24 A/P Assessment and Plan Sickle Cell Vasoocclusive crisis continue to manage pain hydroxyurea Anemia stable at 7.8. likely due to sickle cell\ transfuse is <7 Plantar Fascitis conservative treatment measures Sturat Gan Jan 29, 2018 14:52
[2018-01-29 16:00] VITALS: BP 128/70; PULSE 79; RESP 16; TEMP 98.2; O2SAT 99
[2018-01-29 20:00] VITALS: BP 134/79; PULSE 76; RESP 18; TEMP 98.1; O2SAT 99
[2018-01-29] MEDS: ZOLPIDEM TARTRATE 5 MG TAB PO PRN (20:35)
[2018-01-30] VITALS: BP 124/63; PULSE 77; RESP 18; TEMP 97.9; O2SAT 100
[2018-01-30] MEDS: ACETAMINOPHEN/HYDROcodone 325 MG/7.5 MG TAB PO PRN ×2 (02:00→08:22)
[2018-01-30] MEDS: diphenhydrAMINE HCL 50 MG/ML VIAL IV PUSH PRN ×4 (02:31→23:34)
[2018-01-30] MEDS: HYDROmorphone HCL PF 2 MG/ML VIAL IV PUSH PRN ×6 (02:34→23:34)
[2018-01-30 06:59] LABS: AUTOMATED NEUTROPHIL # 8.5 TH/MM3 (1.8-7.7); BASOPHIL # 0.1 TH/MM3 (0-0.2); BASOPHIL % 0.5 % (0.0-2.0); EOSINOPHIL # 0.7 TH/MM3 (0-0.4); EOSINOPHIL % 4.3 % (0.0-4.0); HEMATOCRIT 22.4 % (35.0-46.0); HEMOGLOBIN 7.8 GM/DL (11.6-15.3); LYMPH % 26.7 % (9.0-44.0); MEAN CELL VOLUME 87.2 FL (80.0-100.0); MEAN CORPUSCULAR HEMOGLOBIN 30.4 PG (27.0-34.0); MEAN CORPUSCULAR HGB CONC 34.9 % (32.0-36.0); MEAN PLATELET VOLUME 7.7 FL (7.0-11.0); MONO % 11.9 % (0.0-8.0); MONOCYTE # 1.8 TH/MM3 (0-0.9); NEUT % 56.6 % (16.0-70.0); PLATELET COUNT 526 TH/MM3 (150-450); RED BLOOD COUNT 2.57 MIL/MM3 (4.00-5.30); RED CELL DISTRIBUTION WIDTH 17.4 % (11.6-17.2); RETIC # 127.6 MIL/L (20.0-150.0)
[2018-01-30 07:28] LABS: ALBUMIN 3.4 GM/DL (3.4-5.0); ALKALINE PHOSPHATASE 85 U/L (45-117); ALT (GPT) 24 U/L (10-53); AST (GOT) 59 U/L (15-37); BLOOD UREA NITROGEN 7 MG/DL (7-18); CALCIUM 8.2 MG/DL (8.5-10.1); CHLORIDE 108 MEQ/L (98-107); CREATININE 0.65 MG/DL (0.50-1.00); GLOMERULAR FILTRATION RATE 131 ML/MIN (>89); GLUCOSE,RANDOM 88 MG/DL (74-106); SODIUM (NA) 141 MEQ/L (136-145); TOTAL BILIRUBIN ADULT 1.6 MG/DL (0.2-1.0); TOTAL PROTEIN 6.9 GM/DL (6.4-8.2)
[2018-01-30 08:00] VITALS: BP 112/56; PULSE 76; RESP 18; TEMP 98; O2SAT 100
[2018-01-30] MEDS: FOLIC ACID 1 MG TAB PO SCH (08:22)
[2018-01-30] MEDS: HYDROXYUREA 500 MG CAP PO SCH (08:24)
[2018-01-30] MEDS: SODIUM CHLORIDE 0.9% FLUSH 10 ML FLUSH IV FLUSH SCH ×2 (08:25→20:20)
[2018-01-30] MEDS ORDERED: ACETAMINOPHEN/HYDROcodone 325 MG/5 MG TAB PO PRN (11:15)
[2018-01-30 11:18] LABS: BANDS 3 % (0-6); BASOPHILS 2 % (0-2); CORRECTED NUCLEATED RBC 1 /100 WBC (0-0); LYMPHOCYTES 18 % (9-44); METAMYELOCYTES 1 % (0-1); MONOCYTES 10 % (0-8); NEUTROPHIL # MANUAL DIFF 10.2 TH/MM3 (1.8-7.7); NUCLEATED RED BLOOD CELL 1 (0-0); POLYS (SEG NEUTROPHILS) 64 % (16-70); SICKLE CELLS 1+ (NORMAL); TARGET CELLS 1+ (NORMAL)
[2018-01-30 12:00] VITALS: BP 135/66; PULSE 86; RESP 18; TEMP 98.8; O2SAT 100
[2018-01-30] MEDS: ACETAMINOPHEN/HYDROcodone 325 MG/5 MG TAB PO PRN ×3 (12:21→20:19)
[2018-01-30] MEDS: MORPHINE SULFATE 15 MG CONTROLLED RELEASE TAB PO SCH ×2 (14:40→22:45)
[2018-01-30 16:00] VITALS: BP 127/71; PULSE 83; RESP 18; TEMP 98.2; O2SAT 100
--- NOTE | 2018-01-30 17:19 | HHI.PR ---
Subjective Remarks The patient still complains of generalized pain and mild chest pain. Denies shortness of breath. Objective Vitals Vital Signs Date Time Temp Pulse Resp B/P (MAP) Pulse Ox O2 Delivery O2 Flow Rate FiO2 01/30/18 12:00 98.8 86 18 135/66 (89) 100 01/30/18 08:00 98.0 76 18 112/56 (74) 100 01/30/18 06:30 20 01/30/18 00:00 97.9 77 18 124/63 (83) 100 01/29/18 23:10 20 01/29/18 20:00 98.1 76 18 134/79 (97) 99 I/O 01/29/18 01/29/18 01/29/18 01/30/18 01/30/18 01/30/18 07:00 15:00 23:00 07:00 15:00 23:00 Intake Total 950 ml 840 ml 360 ml Balance 950 ml 840 ml 360 ml Intake Oral 950 ml 840 ml 360 ml # Voids 3 2 3 # Bowel Movements 0 1 0 Result Diagram: 01/30/18 0530 01/30/18 0530 Objective Remarks General: No acute distress. Appears uncomfortable. Heart: Regular rate and rhythm. No murmur. Lungs: Clear to auscultation bilaterally. No wheezes, rales, or rhonchi. Breathing is nonlabored. Abdomen: Soft, nontender, nondistended. Extremities: No lower extremity edema. Left pressure steamer tender to palpation on the plantar surface. Psych: Alert and oriented. Neuro: Normal speech. No focal deficits noted. 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 Sickle cell pain crisis. Continue IV fluids and pain control. Continue folic acid, hydroxyurea. Patient's hemoglobin stable at 7.8. Reticulocyte count is trending down. Haptoglobin is less than 8. Consult hematology. The patient is requesting IV Dilaudid every 3 hours. I will start the patient on Oramorph sustained release, [place] as needed and continue IV Dilaudid for breakthrough pain. 2. Chronic anemia. Chronic anemia is likely secondary to sickle cell disease. The patient received 1 unit of PRBCs. 3. Hypokalemia. Replaced and now within normal range. Continue to monitor BMP and replace as needed. 4. Leukocytosis Chronic. Continue to monitor CBC. There is no evidence of infection. Discharge Planning Continue to monitor and the medical floor. Hematology consultation pending. Omero Beavers MD Jan 30, 2018 17:19
[2018-01-30] MEDS: SODIUM CHLOR 0.9% 1000 ML INJ 1,000 ML IV SCH (17:23)
[2018-01-30 20:00] VITALS: BP 124/73; PULSE 81; RESP 17; TEMP 98.4; O2SAT 98
[2018-01-30] MEDS: ZOLPIDEM TARTRATE 5 MG TAB PO PRN (23:47)
[2018-01-31] VITALS: BP 131/80; PULSE 80; RESP 17; TEMP 98.3; O2SAT 98
[2018-01-31] MEDS: SODIUM CHLOR 0.9% 1000 ML INJ 1,000 ML IV SCH ×3 (01:16→21:08)
[2018-01-31] MEDS: ACETAMINOPHEN/HYDROcodone 325 MG/5 MG TAB PO PRN ×6 (01:16→23:37)
[2018-01-31] MEDS: HYDROmorphone HCL PF 2 MG/ML VIAL IV PUSH PRN ×5 (02:49→21:09)
[2018-01-31] MEDS: diphenhydrAMINE HCL 50 MG/ML VIAL IV PUSH PRN ×3 (06:06→21:08)
[2018-01-31] MEDS: MORPHINE SULFATE 15 MG CONTROLLED RELEASE TAB PO SCH ×3 (06:52→22:14)
[2018-01-31 08:00] VITALS: BP 124/60; PULSE 77; RESP 18; TEMP 98; O2SAT 99
[2018-01-31] MEDS: SODIUM CHLORIDE 0.9% FLUSH 10 ML FLUSH IV FLUSH SCH ×2 (09:00→21:10)
[2018-01-31] MEDS: FOLIC ACID 1 MG TAB PO SCH (09:56)
[2018-01-31] MEDS: HYDROXYUREA 500 MG CAP PO SCH (09:57)
--- NOTE | 2018-01-31 11:35 | MB ---
cc: Aung Jacobo MD DATE: 01/30/2018 REASON FOR CONSULTATION: Patient with sickle cell crisis. HISTORY OF PRESENT ILLNESS: This is a 27-year-old female with a diagnosis of sickle cell disease. She has had multiple hospitalizations. She has a history of noncompliance and narcotic-seeking behavior. She was discharged from the hematology clinic at [facility]. She now follows with Dr. Derik Gamino at [facility]. In the past, she has seen Dr. Joselito Oropeza. The patient has been noncompliant with Hydrea and other recommendations including followup or an echocardiogram and iron chelation therapy. She now presents to the emergency department with aches and pains, which she states that are consistent with her sickle cell crises. She states that this was triggered by her period which started a few days ago. She denies any cough or congestion. No fevers. No difficulty breathing. No episodes of any bleeding. The patient was admitted to the hospital and started on IV fluids, folic acid and pain control. She states that she is still in pain, which is all over. When I questioned her about her compliance with Hydrea and followups with her revenue research analyst, she became defensive and did not answer my questions. The patient is currently sitting up. She is awake and alert. She is watching TV. She is not visibly in pain. She has not had any fevers or chills. REVIEW OF SYSTEMS: A comprehensive review of systems was completed which is negative, except as described in HPI. PAST MEDICAL HISTORY: Sickle cell disease, history of asthma, history of iron overload. PAST SURGICAL HISTORY: History of , tubal ligation. FAMILY HISTORY: Reviewed and is significant for sickle cell disease. SOCIAL HISTORY: She drinks alcohol occasionally. She denies any tobacco or illicit drug use. MEDICATIONS: 1. Folic acid 1 mg p.o. daily. 2. Oramorph 15 mg p.o. q. 8 hours p.r.n. 3. [place] 5/325 one tablet p.o. q. 4 hours p.r.n. 4. Hydroxyurea 500 mg p.o. daily. 5. Dilaudid 1 mg IV every 3 hours p.r.n. 6. Milk of magnesia 30 mL q. 12 hours p.r.n. 7. Senna 17.2 mg p.o. q. 12 hours p.r.n. 8. Bisacodyl 10 mg p.r.n. 9. Lactulose 30 mL p.r.n. 10. Ambien 5 mg p.o. at bedtime. 11. DuoNebs. ALLERGIES: SHE IS ALLERGIC TO OXYCODONE. PHYSICAL EXAMINATION: VITAL SIGNS: Blood pressure is 124/73, pulse is in the 80s. Temperature is 98.4. O2 saturations are 98% on room air. GENERAL: Well-developed, well-nourished female, in no apparent distress. HEENT: Pupils are equal, round, reactive to light. EOMI. No oral thrush. No lesion. NECK: Supple. No JVD. No bruits. No lymphadenopathy. CHEST: Clear to auscultation bilaterally. CARDIAC: S1, S2. Regular rate and rhythm. ABDOMEN: Soft, nontender, nondistended. Bowel sounds are present. EXTREMITIES: Without any edema, erythema or cyanosis. SKIN: Without any petechia, lesions or bruises. NEUROLOGIC: No focal deficits. PSYCHIATRIC: Mood and affect is appropriate. LABORATORY DATA: Sodium 141, potassium 3.7, chloride 108, BUN is 7, creatinine is 0.65, calcium is 8.2, total bilirubin is 1.6, AST 59, ALT is 24, LDH is 460. WBC is 15, hemoglobin is 7.8, and platelet count is 526. IMAGING: None. ASSESSMENT AND PLAN: This is a 27-year-old female with a history of sickle cell disease, who presents to the emergency department with pain, which is all over. She states that this is precipitated by her period. 1. Sickle cell crisis. Continue supportive care. I agree with pain management, minimize IV pain medications, rely on long-acting Oramorph and [place] p.r.n. She can be given IV Dilaudid for breakthrough pain. Continue folic acid. Hemoglobin is stable at 7.8. Minimize packed red blood cell transfusions. Trend daily reticulocyte count and total bilirubin. 2. History of iron overload. We will check her ferritin levels. If they are elevated, we will consider giving her IV chelation therapy while inpatient. 3. Leukocytosis, appears to be reactive. There is no evidence of any infection. Overall, the patient appears to be stable. Oxygen saturations are stable. Lungs are clear. There is no evidence of any infection. Continue pain management. Thank you for allowing me to participate in the care of this patient. MD SHIRA Man/BRIGHT , 10:21 AM , 11:34 AM
[2018-01-31 12:00] VITALS: BP 131/74; PULSE 89; RESP 18; TEMP 98.2; O2SAT 100
--- NOTE | 2018-01-31 13:39 | HHI.PR ---
Subjective Remarks Patient still c/o generalized pain but it is slowly improving. Denies sob Afebrile. Objective Vitals Vital Signs Date Time Temp Pulse Resp B/P (MAP) Pulse Ox O2 Delivery O2 Flow Rate FiO2 01/31/18 12:00 98.2 89 18 131/74 (93) 100 01/31/18 08:00 98.0 77 18 124/60 (81) 99 01/31/18 00:00 98.3 80 17 131/80 (97) 98 01/30/18 20:00 98.4 81 17 124/73 (90) 98 01/30/18 16:00 98.2 83 18 127/71 (89) 100 I/O 01/30/18 01/30/18 01/30/18 01/31/18 01/31/18 01/31/18 07:00 15:00 23:00 07:00 15:00 23:00 Intake Total 360 ml 1800 ml 1240 ml Balance 360 ml 1800 ml 1240 ml Intake Oral 360 ml 1800 ml 240 ml IV Total 1000 ml # Voids 3 5 3 # Bowel Movements 0 Result Diagram: 01/30/18 0530 01/30/18 0530 Objective Remarks General: No acute distress. Appears uncomfortable. Heart: Regular rate and rhythm. No murmur. Lungs: Clear to auscultation bilaterally. No wheezes, rales, or rhonchi. Breathing is nonlabored. Abdomen: Soft, nontender, nondistended. Extremities: No lower extremity edema. Left drier and pulverizer tender to palpation on the plantar surface. Psych: Alert and oriented. Neuro: Normal speech. No focal deficits noted. 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 Sickle cell pain crisis. Continue IV fluids and pain control. Continue folic acid, hydroxyurea. Patient's hemoglobin stable at 7.8. Reticulocyte count is trending down. Haptoglobin is less than 8. The patient is requesting IV Dilaudid every 3 hours. I will start the patient on Oramorph sustained release, [place] as needed and continue IV Dilaudid for breakthrough pain. 01/31 Patient is still c/o pain increase dose or Morphine SR. Continue [place] and IV Dilaudid for breakthrough pain. Appreciate hematology consultation. 2. Chronic anemia. Chronic anemia is likely secondary to sickle cell disease. The patient received 1 unit of PRBCs. Hemoglobin stable 3. Hypokalemia. Replaced and now within normal range. Continue to monitor BMP and replace as needed. 4. Leukocytosis Chronic. Continue to monitor CBC. There is no evidence of infection. 6/3 WBC trending down. Discharge Planning Continue to monitor and the medical floor. DC pending cinical improvement. Omero Beavers MD Jan 31, 2018 13:39
[2018-01-31 14:23] LABS: AUTOMATED NEUTROPHIL # 6.3 TH/MM3 (1.8-7.7); BASOPHIL % 0.3 % (0.0-2.0); EOSINOPHIL # 0.6 TH/MM3 (0-0.4); EOSINOPHIL % 5.6 % (0.0-4.0); HEMATOCRIT 22.3 % (35.0-46.0); HEMOGLOBIN 7.8 GM/DL (11.6-15.3); LYMPHOCYTE # 3.3 TH/MM3 (1.0-4.8); MEAN CELL VOLUME 87.6 FL (80.0-100.0); MEAN CORPUSCULAR HEMOGLOBIN 30.6 PG (27.0-34.0); MEAN CORPUSCULAR HGB CONC 34.9 % (32.0-36.0); MEAN PLATELET VOLUME 7.8 FL (7.0-11.0); MONO % 11.7 % (0.0-8.0); MONOCYTE # 1.4 TH/MM3 (0-0.9); NEUT % 54.4 % (16.0-70.0); PLATELET COUNT 505 TH/MM3 (150-450); RED BLOOD COUNT 2.54 MIL/MM3 (4.00-5.30); RED CELL DISTRIBUTION WIDTH 17.4 % (11.6-17.2); RETIC # 143.7 MIL/L (20.0-150.0); RETIC % 5.7 % (0.4-3.0); WHITE BLOOD COUNT 11.6 TH/MM3 (4.0-11.0)
[2018-01-31 15:02] LABS: SICKLE CELLS 1+ (NORMAL)
[2018-01-31 15:03] LABS: HOWELL-JOLLY BODIES PRESENT (NONE SEEN)
[2018-01-31 16:00] VITALS: BP 133/57; PULSE 86; RESP 18; TEMP 98.7; O2SAT 99
[2018-01-31 20:00] VITALS: BP 133/74; PULSE 73; RESP 16; TEMP 98.2; O2SAT 98
[2018-01-31] MEDS: ZOLPIDEM TARTRATE 5 MG TAB PO PRN (21:08)
[2018-02-01] VITALS: BP 124/70; PULSE 82; RESP 16; TEMP 97.8; O2SAT 100
[2018-02-01] MEDS: HYDROmorphone HCL PF 2 MG/ML VIAL IV PUSH PRN ×3 (02:51→10:57)
[2018-02-01] MEDS: diphenhydrAMINE HCL 50 MG/ML VIAL IV PUSH PRN ×2 (02:51→10:57)
[2018-02-01] MEDS: ACETAMINOPHEN/HYDROcodone 325 MG/5 MG TAB PO PRN ×4 (04:35→19:50)
[2018-02-01] MEDS: MORPHINE SULFATE 15 MG CONTROLLED RELEASE TAB PO SCH ×3 (05:59→22:42)
[2018-02-01] MEDS: SODIUM CHLOR 0.9% 1000 ML INJ 1,000 ML IV SCH ×2 (05:59→16:45)
[2018-02-01 07:27] LABS: AUTOMATED NEUTROPHIL # 7.1 TH/MM3 (1.8-7.7); BASOPHIL # 0.3 TH/MM3 (0-0.2); EOSINOPHIL # 0.6 TH/MM3 (0-0.4); EOSINOPHIL % 4.7 % (0.0-4.0); HEMATOCRIT 22.8 % (35.0-46.0); HEMOGLOBIN 7.9 GM/DL (11.6-15.3); LYMPH % 28.5 % (9.0-44.0); LYMPHOCYTE # 3.8 TH/MM3 (1.0-4.8); MEAN CELL VOLUME 87.6 FL (80.0-100.0); MEAN CORPUSCULAR HEMOGLOBIN 30.2 PG (27.0-34.0); MEAN CORPUSCULAR HGB CONC 34.5 % (32.0-36.0); MEAN PLATELET VOLUME 7.9 FL (7.0-11.0); MONO % 10.6 % (0.0-8.0); MONOCYTE # 1.4 TH/MM3 (0-0.9); NEUT % 54.2 % (16.0-70.0); PLATELET COUNT 527 TH/MM3 (150-450); RED BLOOD COUNT 2.61 MIL/MM3 (4.00-5.30); RED CELL DISTRIBUTION WIDTH 17.4 % (11.6-17.2); RETIC # 152.2 MIL/L (20.0-150.0); RETIC % 5.8 % (0.4-3.0); WHITE BLOOD COUNT 13.2 TH/MM3 (4.0-11.0)
[2018-02-01 07:57] LABS: ALKALINE PHOSPHATASE 81 U/L (45-117); ALT (GPT) 24 U/L (10-53); TOTAL BILIRUBIN ADULT 1.8 MG/DL (0.2-1.0)
[2018-02-01 08:00] VITALS: BP 130/62; PULSE 80; RESP 17; TEMP 97.7; O2SAT 96
[2018-02-01] MEDS: SODIUM CHLORIDE 0.9% FLUSH 10 ML FLUSH IV FLUSH SCH ×2 (08:07→19:53)
[2018-02-01] MEDS: FOLIC ACID 1 MG TAB PO SCH (08:09)
[2018-02-01 08:11] LABS: ALBUMIN 3.5 GM/DL (3.4-5.0); AST (GOT) 69 U/L (15-37); BICARBONATE 26.5 MEQ/L (21.0-32.0); BLOOD UREA NITROGEN 5 MG/DL (7-18); CALCIUM 8.3 MG/DL (8.5-10.1); CHLORIDE 107 MEQ/L (98-107); CREATININE 0.64 MG/DL (0.50-1.00); GLOMERULAR FILTRATION RATE 134 ML/MIN (>89); GLUCOSE,RANDOM 132 MG/DL (74-106); SODIUM (NA) 142 MEQ/L (136-145)
[2018-02-01] MEDS: HYDROXYUREA 500 MG CAP PO SCH (08:14)
[2018-02-01 08:48] LABS: BANDS 1 % (0-6); BASOPHILS 1 % (0-2); CORRECTED NUCLEATED RBC 3 /100 WBC (0-0); LYMPHOCYTES 23 % (9-44); MONOCYTES 11 % (0-8); NEUTROPHIL # MANUAL DIFF 7.8 TH/MM3 (1.8-7.7); NUCLEATED RED BLOOD CELL 3 (0-0); POLYS (SEG NEUTROPHILS) 58 % (16-70); SICKLE CELLS 1+ (NORMAL)
[2018-02-01 08:50] LABS: OVALOCYTES 1+ (NORMAL); TARGET CELLS 1+ (NORMAL)
[2018-02-01 12:00] VITALS: BP 129/55; PULSE 87; RESP 17; TEMP 97.9; O2SAT 96
--- NOTE | 2018-02-01 15:02 | HHI.PR ---
Subjective Remarks The patient still complaining of generalized pain in the legs, bilateral upper extremities, back. Denies fevers or chills or shortness of breath. No fevers reported. Denies diarrhea. As per RN report the patient is requesting the IV Dilaudid to be post fast as well as with IV Benadryl. Objective Vitals Vital Signs Date Time Temp Pulse Resp B/P (MAP) Pulse Ox O2 Delivery O2 Flow Rate FiO2 02/01/18 12:00 97.9 87 17 129/55 (79) 96 02/01/18 08:00 97.7 80 17 130/62 (84) 96 02/01/18 00:00 97.8 82 16 124/70 (88) 100 01/31/18 20:00 98.2 73 16 133/74 (93) 98 01/31/18 16:00 98.7 86 18 133/57 (82) 99 I/O 01/31/18 01/31/18 01/31/18 02/01/18 02/01/18 02/01/18 07:00 15:00 23:00 07:00 15:00 23:00 Intake Total 1240 ml 2800 ml 1000 ml Balance 1240 ml 2800 ml 1000 ml Intake Oral 240 ml 1800 ml IV Total 1000 ml 1000 ml 1000 ml # Voids 3 5 3 # Bowel Movements 1 Result Diagram: 02/01/18 0600 02/01/18 0600 Imaging Last Impressions Foot X-Ray 01/25/18 0000 Signed Impressions: CONCLUSION: Unremarkable study. Objective Remarks General: No acute distress. Appears uncomfortable. Heart: Regular rate and rhythm. No murmur. Lungs: Clear to auscultation bilaterally. No wheezes, rales, or rhonchi. Breathing is nonlabored. Abdomen: Soft, nontender, nondistended. Extremities: No lower extremity edema. Left scratcher tender to palpation on the plantar surface. Psych: Alert and oriented. Neuro: Normal speech. No focal deficits noted. 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 Sickle cell pain crisis. Continue IV fluids and pain control. Continue folic acid, hydroxyurea. Patient's hemoglobin stable at 7.8. Reticulocyte count is trending down. Haptoglobin is less than 8. The patient is requesting IV Dilaudid every 3 hours. I will start the patient on Oramorph sustained release, [place] as needed and continue IV Dilaudid for breakthrough pain. 01/31 Patient is still c/o pain increase dose or Morphine SR. Continue [place] and IV Dilaudid for breakthrough pain. Appreciate hematology consultation. 02/01 patient is requesting IV Dilaudid and IV Benadryl to be placed together. Concern for drug-seeking behavior. I will switch the IV Benadryl to oral route and discussed with pharmacy so that we can give IV Dilaudid diluted with normal saline over a period of 30 minutes. Reticulocyte count slightly elevated compared to the previous day. Continue to monitor reticulocyte count, haptoglobin, CBC and LDH. Increase the dose of morphine SR to 45 mg p.o. every 8 hours. 2. Chronic anemia. Chronic anemia is likely secondary to sickle cell disease. The patient received 1 unit of PRBCs. Hemoglobin stable / ferritin is elevated. Management as per hematology. Possible chelation. 3. Hypokalemia. Replaced and now within normal range. Continue to monitor BMP and replace as needed. 4. Leukocytosis Chronic. Continue to monitor CBC. There is no evidence of infection. 6/ WBC still elevated. Up from 11.6-13.2. I will check urinalysis. Discharge Planning Continue to monitor and the medical floor. DC pending cinical improvement. Omero Beavers MD Feb 01, 2018 15:02
[2018-02-01 16:00] VITALS: BP 155/79; PULSE 115; RESP 17; TEMP 98; O2SAT 94
[2018-02-01 16:04] LABS: TOTAL BILIRUBIN ADULT 1.8 MG/DL (0.2-1.0)
[2018-02-01 16:13] LABS: ALBUMIN 3.4 GM/DL (3.4-5.0); DIRECT BILIRUBIN ADULT 0.2 MG/DL (0.0-0.2); INDIRECT BILIRUBIN 1.6 MG/DL (0.0-0.8)
[2018-02-01] MEDS: diphenhydrAMINE HCL 25 MG CAP PO PRN ×2 (16:44→21:06)
[2018-02-01] MEDS: HYDROMORPHONE IV PRN ×2 (16:44→21:04)
[2018-02-01] MEDS: SODIUM CHLORIDE 0.9% IV PRN ×2 (16:44→21:04)
[2018-02-01] MEDS ORDERED: DEFEROXAMINE MESYLATE 500 MG VIAL IM ONE (17:00)
[2018-02-01 20:00] VITALS: BP 119/56; PULSE 99; RESP 18; TEMP 98.1; O2SAT 99
[2018-02-01] MEDS: ZOLPIDEM TARTRATE 5 MG TAB PO PRN (22:44)
[2018-02-02] MEDS: ACETAMINOPHEN/HYDROcodone 325 MG/5 MG TAB PO PRN ×5 (00:05→20:12)
[2018-02-02 00:15] VITALS: BP 119/56; PULSE 85; RESP 20; TEMP 98.6; O2SAT 98
[2018-02-02] MEDS: HYDROMORPHONE IV PRN ×5 (01:03→22:09)
[2018-02-02] MEDS: SODIUM CHLORIDE 0.9% IV PRN ×5 (01:03→22:09)
[2018-02-02] MEDS: diphenhydrAMINE HCL 25 MG CAP PO PRN ×5 (01:13→22:09)
[2018-02-02] MEDS: SODIUM CHLOR 0.9% 1000 ML INJ 1,000 ML IV SCH ×3 (01:13→15:56)
[2018-02-02] MEDS: MORPHINE SULFATE 15 MG CONTROLLED RELEASE TAB PO SCH ×3 (06:46→23:03)
[2018-02-02 07:12] LABS: AUTOMATED NEUTROPHIL # 9.2 TH/MM3 (1.8-7.7); BASOPHIL # 0.2 TH/MM3 (0-0.2); BASOPHIL % 1.3 % (0.0-2.0); EOSINOPHIL # 0.6 TH/MM3 (0-0.4); HEMATOCRIT 22.5 % (35.0-46.0); HEMOGLOBIN 7.7 GM/DL (11.6-15.3); LYMPH % 23.1 % (9.0-44.0); LYMPHOCYTE # 3.5 TH/MM3 (1.0-4.8); MEAN CORPUSCULAR HEMOGLOBIN 29.6 PG (27.0-34.0); MEAN PLATELET VOLUME 7.7 FL (7.0-11.0); MONO % 10.1 % (0.0-8.0); MONOCYTE # 1.5 TH/MM3 (0-0.9); NEUT % 61.5 % (16.0-70.0); PLATELET COUNT 495 TH/MM3 (150-450); RED BLOOD COUNT 2.59 MIL/MM3 (4.00-5.30); RED CELL DISTRIBUTION WIDTH 17.6 % (11.6-17.2); RETIC # 127.2 MIL/L (20.0-150.0); RETIC % 4.9 % (0.4-3.0)
[2018-02-02 08:00] VITALS: BP 127/76; PULSE 86; RESP 16; TEMP 98; O2SAT 96
[2018-02-02 09:48] LABS: BANDS 3 % (0-6); CORRECTED NUCLEATED RBC 2 /100 WBC (0-0); LYMPHOCYTES 12 % (9-44); MONOCYTES 12 % (0-8); NEUTROPHIL # MANUAL DIFF 10.2 TH/MM3 (1.8-7.7); NUCLEATED RED BLOOD CELL 2 (0-0); POLYS (SEG NEUTROPHILS) 65 % (16-70)
[2018-02-02 09:49] LABS: SICKLE CELLS 1+ (NORMAL); TARGET CELLS 1+ (NORMAL)
[2018-02-02] MEDS: FOLIC ACID 1 MG TAB PO SCH (10:13)
[2018-02-02] MEDS: SODIUM CHLORIDE 0.9% FLUSH 10 ML FLUSH IV FLUSH SCH ×2 (10:14→21:00)
[2018-02-02] MEDS: HYDROXYUREA 500 MG CAP PO SCH (10:19)
[2018-02-02 12:00] VITALS: BP 131/73; PULSE 79; RESP 17; TEMP 98.4; O2SAT 99
[2018-02-02 16:00] VITALS: BP 132/69; PULSE 91; RESP 18; TEMP 98.9; O2SAT 97
[2018-02-02] MEDS ORDERED: HYDR-3583 PO (16:03)
[2018-02-02] MEDS ORDERED: AMBI5TAB PO (16:03)
[2018-02-02] MEDS ORDERED: MORP1TAB24 PO (16:03)
[2018-02-02] MEDS ORDERED: FOLI1TAB6 PO (16:03)
[2018-02-02] MEDS ORDERED: HYDR500C PO (16:03)
--- NOTE | 2018-02-02 16:06 | HHI.DCPOC ---
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 Avoid second hand smoke Call the 24-hour hour crisis hotline for domestic abuse at Omero Beavers MD Feb 02, 2018 16:06
--- NOTE | 2018-02-02 16:11 | HHI.PR ---
Subjective Remarks Patient states pain is improving. Patient thinks she should be able to go home tomorrow. Denies fevers or chills. Denies diarrhea, chest pain or shortness of breath. Objective Vitals Vital Signs Date Time Temp Pulse Resp B/P (MAP) Pulse Ox O2 Delivery O2 Flow Rate FiO2 02/02/18 12:00 98.4 79 17 131/73 (92) 99 02/02/18 08:00 98.0 86 16 127/76 (93) 96 02/02/18 00:15 98.6 85 20 119/56 (77) 98 02/01/18 20:00 98.1 99 18 119/56 (77) 99 I/O 02/01/18 02/01/18 02/01/18 02/02/18 02/02/18 02/02/18 06:59 14:59 22:59 06:59 14:59 22:59 Intake Total 1000 ml 1900.5 ml 1860.5 ml 100.5 ml 100.5 ml Balance 1000 ml 1900.5 ml 1860.5 ml 100.5 ml 100.5 ml Intake Oral 1800 ml 760 ml IV Total 1000 ml 100.5 ml 1100.5 ml 100.5 ml 100.5 ml # Voids 3 5 2 # Bowel Movements 1 Result Diagram: 02/02/18 0645 02/01/18 0600 Imaging Last Impressions Foot X-Ray 01/25/18 0000 Signed Impressions: CONCLUSION: Unremarkable study. Objective Remarks General: No acute distress. Appears uncomfortable. Heart: Regular rate and rhythm. No murmur. Lungs: Clear to auscultation bilaterally. No wheezes, rales, or rhonchi. Breathing is nonlabored. Abdomen: Soft, nontender, nondistended. Extremities: No lower extremity edema. Left drier tender to palpation on the plantar surface. Psych: Alert and oriented. Neuro: Normal speech. No focal deficits noted. 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 Sickle cell pain crisis. Continue IV fluids and pain control. Continue folic acid, hydroxyurea. Patient's hemoglobin stable at 7.8. Reticulocyte count is trending down. Haptoglobin is less than 8. The patient is requesting IV Dilaudid every 3 hours. I will start the patient on Oramorph sustained release, [place] as needed and continue IV Dilaudid for breakthrough pain. 01/31 Patient is still c/o pain increase dose or Morphine SR. Continue [place] and IV Dilaudid for breakthrough pain. Appreciate hematology consultation. 02/01 patient is requesting IV Dilaudid and IV Benadryl to be placed together. Concern for drug-seeking behavior. I will switch the IV Benadryl to oral route and discussed with pharmacy so that we can give IV Dilaudid diluted with normal saline over a period of 30 minutes. Reticulocyte count slightly elevated compared to the previous day. Continue to monitor reticulocyte count, haptoglobin, CBC and LDH. Increase the dose of morphine SR to 45 mg p.o. every 8 hours. 2. Chronic anemia/Iron overload Chronic anemia is likely secondary to sickle cell disease. The patient received 1 unit of PRBCs. Hemoglobin stable 02/02 Feritin very elevated. Will give one dose of Deferoxamine IV. 3. Hypokalemia. Replaced and now within normal range. Continue to monitor BMP and replace as needed. 4. Leukocytosis Chronic. Continue to monitor CBC. There is no evidence of infection. 02/01 WBC still elevated. Up from 11.6-13.2. 02/02 check urinalysis. Monitor cbc. Discharge Planning Continue to monitor and the medical floor. DC pending cinical improvement. Omero Beavers MD Feb 02, 2018 16:11
[2018-02-02] MEDS ORDERED: DEFEROXAMINE IV ONE (17:00)
[2018-02-02] MEDS ORDERED: SODIUM CHLOR 0.9% IV ONE (17:00)
[2018-02-02 20:26] VITALS: BP 118/74; PULSE 91; RESP 17; TEMP 98.4; O2SAT 96
[2018-02-02] MEDS: ZOLPIDEM TARTRATE 5 MG TAB PO PRN (22:10)
[2018-02-03] MEDS: ACETAMINOPHEN/HYDROcodone 325 MG/5 MG TAB PO PRN ×3 (00:17→09:29)
[2018-02-03 00:27] VITALS: BP 144/78; PULSE 89; RESP 18; TEMP 98.4; O2SAT 98
[2018-02-03] MEDS: SODIUM CHLORIDE 0.9% IV PRN ×3 (02:04→11:23)
[2018-02-03] MEDS: diphenhydrAMINE HCL 25 MG CAP PO PRN ×3 (02:04→10:32)
[2018-02-03] MEDS: HYDROMORPHONE IV PRN ×3 (02:04→11:23)
[2018-02-03] MEDS: SODIUM CHLOR 0.9% 1000 ML INJ 1,000 ML IV SCH ×2 (02:04→08:21)
[2018-02-03] MEDS: MORPHINE SULFATE 15 MG CONTROLLED RELEASE TAB PO SCH ×2 (06:49→13:39)
[2018-02-03 08:00] VITALS: BP 118/58; PULSE 84; RESP 16; TEMP 97.9; O2SAT 92
[2018-02-03] MEDS: SODIUM CHLORIDE 0.9% FLUSH 10 ML FLUSH IV FLUSH SCH (08:12)
[2018-02-03] MEDS: FOLIC ACID 1 MG TAB PO SCH (08:14)
[2018-02-03] MEDS: HYDROXYUREA 500 MG CAP PO SCH (08:21)
[2018-02-03 12:00] VITALS: BP 139/65; PULSE 80; RESP 18; TEMP 98.4; O2SAT 98
--- NOTE | 2018-02-03 13:29 | HHI.PR ---
Subjective Remarks Pain is controlled. Patient was in so little pain that she was able to have sexual relations here in the hospital. Per RNs report Patient can be discharged home we will discharge to home today Objective Vitals Vital Signs Date Time Temp Pulse Resp B/P (MAP) Pulse Ox O2 Delivery O2 Flow Rate FiO2 02/03/18 08:00 97.9 84 16 118/58 (78) 92 02/03/18 00:27 98.4 89 18 144/78 (100) 98 02/02/18 20:26 98.4 91 17 118/74 (89) 96 02/02/18 16:00 98.9 91 18 132/69 (90) 97 I/O 02/02/18 02/02/18 02/02/18 02/03/18 02/03/18 02/03/18 07:00 15:00 23:00 07:00 15:00 23:00 Intake Total 1860.5 ml 100.5 ml 3557.0 ml 780 ml Balance 1860.5 ml 100.5 ml 3557.0 ml 780 ml Intake Oral 760 ml 1200 ml 780 ml IV Total 1100.5 ml 100.5 ml 2357.0 ml # Voids 2 7 3 # Bowel Movements 0 Result Diagram: 02/02/18 0645 02/01/18 0600 Other Results Laboratory Tests Test 01/31/18 13:46 02/01/18 06:00 02/02/18 06:45 White Blood Count 11.6 TH/MM3 13.2 TH/MM3 15.0 TH/MM3 Red Blood Count 2.54 MIL/MM3 2.61 MIL/MM3 2.59 MIL/MM3 Hemoglobin 7.8 GM/DL 7.9 GM/DL 7.7 GM/DL Hematocrit 22.3 % 22.8 % 22.5 % Mean Corpuscular Volume 87.6 FL 87.6 FL 87.0 FL Mean Corpuscular Hemoglobin 30.6 PG 30.2 PG 29.6 PG Mean Corpuscular Hemoglobin Concent 34.9 % 34.5 % 34.0 % Red Cell Distribution Width 17.4 % 17.4 % 17.6 % Platelet Count 505 TH/MM3 527 TH/MM3 495 TH/MM3 Mean Platelet Volume 7.8 FL 7.9 FL 7.7 FL Neutrophils (%) (Auto) 54.4 % 54.2 % 61.5 % Lymphocytes (%) (Auto) 28.0 % 28.5 % 23.1 % Monocytes (%) (Auto) 11.7 % 10.6 % 10.1 % Eosinophils (%) (Auto) 5.6 % 4.7 % 4.0 % Basophils (%) (Auto) 0.3 % 2.0 % 1.3 % Neutrophils # (Auto) 6.3 TH/MM3 7.1 TH/MM3 9.2 TH/MM3 Lymphocytes # (Auto) 3.3 TH/MM3 3.8 TH/MM3 3.5 TH/MM3 Monocytes # (Auto) 1.4 TH/MM3 1.4 TH/MM3 1.5 TH/MM3 Eosinophils # (Auto) 0.6 TH/MM3 0.6 TH/MM3 0.6 TH/MM3 Basophils # (Auto) 0.0 TH/MM3 0.3 TH/MM3 0.2 TH/MM3 CBC Comment AUTO DIFF AUTO DIFF AUTO DIFF Differential Comment AUTO DIFF CONFIRMED FINAL DIFF MANUAL FINAL DIFF MANUAL Sickle Cells 1+ 1+ 1+ [place] Bodies PRESENT Reticulocyte Count 5.7 % 5.8 % 4.9 % Absolute Reticulocyte Count 143.7 MIL/L 152.2 MIL/L 127.2 MIL/L Ferritin 4409 NG/ML Differential Total Cells Counted 100 100 Neutrophils % (Manual) 58 % 65 % Band Neutrophils % 1 % 3 % Lymphocytes % 23 % 12 % Monocytes % 11 % 12 % Eosinophils % 6 % 8 % Basophils % 1 % Neutrophils # (Manual) 7.8 TH/MM3 10.2 TH/MM3 Nucleated Red Blood Cells 3 /100 WBC 2 /100 WBC Platelet Estimate HIGH HIGH Platelet Morphology Comment NORMAL NORMAL Polychromasia 2.0 % Target Cells 1+ 1+ Ovalocytes 1+ Red Cell Morphology Comment Blood Urea Nitrogen 5 MG/DL Creatinine 0.64 MG/DL Random Glucose 132 MG/DL Total Protein 7.0 GM/DL Albumin 3.5 GM/DL Calcium Level 8.3 MG/DL Alkaline Phosphatase 81 U/L Aspartate Amino Transf (AST/SGOT) 69 U/L Alanine Aminotransferase (ALT/SGPT) 24 U/L Total Bilirubin 1.8 MG/DL Sodium Level 142 MEQ/L Potassium Level 3.8 MEQ/L Chloride Level 107 MEQ/L Carbon Dioxide Level 26.5 MEQ/L Anion Gap 9 MEQ/L Estimat Glomerular Filtration Rate 134 ML/MIN Direct Bilirubin 0.2 MG/DL Indirect Bilirubin 1.6 MG/DL Haptoglobin LESS THAN 10 MG/DL Lactate Dehydrogenase 476 U/L Imaging Last Impressions Foot X-Ray 01/25/18 0000 Signed Impressions: CONCLUSION: Unremarkable study. Objective Remarks GENERAL: Awake alert and oriented 3 talkative and cooperative SKIN: Warm and dry. HEAD: Atraumatic. Normocephalic. EYES: Pupils equal and round. No scleral icterus. No injection or drainage. ENT: No nasal bleeding or discharge. Mucous membranes pink and moist. NECK: Trachea midline. No JVD. CARDIOVASCULAR: Regular rate and rhythm. S1-S2 no S3 or S4 RESPIRATORY: No accessory muscle use. Clear to auscultation. Breath sounds equal bilaterally. GASTROINTESTINAL: Abdomen soft, non-tender, nondistended. Hepatic and splenic margins not palpable. MUSCULOSKELETAL: Extremities without clubbing, cyanosis, or edema. No obvious deformities. NEUROLOGICAL: Awake and alert. No obvious cranial nerve deficits. Motor grossly within normal limits. Five out of 5 muscle strength in the arms and legs. Normal speech. PSYCHIATRIC: Appropriate mood and affect; insight and judgment normal. Procedures None Medications and IVs Current Medications Sodium Chloride (NS Flush) 2 ml UNSCH PRN IVF FLUSH AFTER USING IV ACCESS; Start 01/25/18 at 23:45; Stop 01/26/18 at 01:21; Status DC Sodium Chloride 1,000 ml @ 1,000 mls/hr Q1H ONCE IV Last administered on at 00:09; Start 01/25/18 at 23:39; Stop 01/26/18 at 00:38; Status DC Hydromorphone HCl (Dilaudid Pf Inj) 1 mg ONCE ONCE IV PUSH Last administered on 01/26/18at 00:10; Start 01/25/18 at 23:45; Stop 01/26/18 at 01:25; Status DC Diphenhydramine HCl (Benadryl Inj) 25 mg ONCE ONCE IV PUSH Last administered on 01/26/18at 00:09; Start 01/25/18 at 23:45; Stop 01/25/18 at 23:46; Status DC Potassium Chloride (KCl) 40 meq ONCE ONCE PO ; Start 01/26/18 at 00:45; Stop at 01:16; Status DC Hydromorphone HCl (Dilaudid Pf Inj) 1 mg ONCE ONCE IV PUSH Last administered on 01/26/18at 01:17; Start 01/26/18 at 01:00; Stop 01/26/18 at 01:01; Status DC Diphenhydramine HCl (Benadryl Inj) 25 mg ONCE ONCE IV PUSH Last administered on 01/26/18at 01:16; Start 01/26/18 at 01:00; Stop 01/26/18 at 01:26; Status DC Sodium Chloride 250 ml @ 15 mls/hr ONCE ONCE IV Last administered on at 03:01; Start 01/26/18 at 01:00; Stop 01/26/18 at 17:39; Status DC Sodium Chloride 1,000 ml @ 125 mls/hr Q8H IV Last administered on 02/03/18at 08: 21; Start 01/26/18 at 01:06 Sodium Chloride (NS Flush) 2 ml UNSCH PRN IV FLUSH FLUSH AFTER USING IV ACCESS Last administered on 01/29/18at 17:22; Start 01/26/18 at 01:15 Sodium Chloride (NS Flush) 2 ml BID IV FLUSH Last administered on 02/02/18at 10: 14; Start 01/26/18 at 09:00 Acetaminophen (Tylenol) 650 mg Q4H PRN PO COOPER, fever, pain 1-4; Start 01/26/18 at 01:15; Stop 01/30/18 at 11:18; Status DC Naloxone HCl (Narcan Inj) 0.4 mg UNSCH PRN IV PUSH SEE LABEL COMMENTS; Start at 01:15 Magnesium Hydroxide (Milk Of Magnesia Liq) 30 ml Q12H PRN PO Mild constipation ; Start 01/26/18 at 01:15 Sennosides (Senokot) 17.2 mg Q12H PRN PO Moderate constipation; Start 01/26/18 at 01:15 Bisacodyl (Dulcolax Supp) 10 mg DAILY PRN RECTAL SEVERE CONSITIPATION; Start at 01:15 Lactulose (Lactulose Liq) 30 ml DAILY PRN PO SEVERE CONSITIPATION; Start at 01:15 Acetaminophen/ Hydrocodone Bitart ([place] 7.5-325 Mg) 1 tab Q6H PRN PO PAIN SCALE 5 TO 10 Last administered on 01/30/18 08:22; Start 01/26/18 at 01:15; Stop 01/30/18 at 11:18; Status DC Morphine Sulfate (Morphine Inj) 4 mg Q3H PRN IV PUSH BREAKTHROUGH PAIN Last administered on 01/26/18 05:54; Start 01/26/18 at 01:15; Stop 01/26/18 at 08:35 ; Status DC Folic Acid (Folate) 1 mg DAILY PO Last administered on 02/03/18at 08:14; Start at 09:00 Hydroxyurea (Hydrea) 500 mg DAILY PO Last administered on 02/03/18 08:21; Start 01/26/18 at 09:00 Zolpidem Tartrate (Ambien) 5 mg HS PRN PO INSOMNIA Last administered on at 22:10; Start 01/26/18 at 01:15 Potassium Chloride (KCl Powder) 40 meq ONCE ONCE PO Last administered on at 05:26; Start 01/26/18 at 01:15; Stop 01/26/18 at 01:16; Status DC Diphenhydramine HCl (Benadryl) 25 mg Q6H PRN PO ITCHING; Start 01/26/18 at 01: 45; Stop 01/26/18 at 09:29; Status DC Hydromorphone HCl (Dilaudid Pf Inj) 1 mg Q3H PRN IV PUSH breakthrough pain Last administered on 01/31/18at 10:59; Start 01/26/18 at 08:45; Stop 01/31/18 at 13 :27; Status DC Diphenhydramine HCl (Benadryl Inj) 25 mg Q6H PRN IV PUSH itching/rash Last administered on 02/01/18at 10:57; Start 01/26/18 at 09:30; Stop 02/01/18 at 14:39; Status DC Acetaminophen/ Hydrocodone Bitart ([place] 5-325 Mg) 1 tab Q4H PRN PO PAIN SCALE 1 TO 4; Start 01/30/18 at 11:15 Acetaminophen/ Hydrocodone Bitart ([place] 5-325 Mg) 2 tab Q4H PRN PO PAIN SCALE 5 TO 10 Last administered on 02/03/18at 09:29; Start 01/30/18 at 11:15 Morphine Sulfate (Oramorph Sr) 15 mg Q8HR PO Last administered on 01/31/18at 06: 52; Start 01/30/18 at 14:00; Stop 01/31/18 at 13:24; Status DC Morphine Sulfate (Oramorph Sr) 30 mg Q8HR PO Last administered on 02/01/18at 12: 55; Start 01/31/18 at 14:00; Stop 02/01/18 at 15:01; Status DC Hydromorphone HCl (Dilaudid Pf Inj) 1 mg Q4H PRN IV PUSH breakthrough pain Last administered on 02/01/18at 10:57; Start 01/31/18 at 13:30; Stop 02/01/18 at 14: 57; Status DC Diphenhydramine HCl (Benadryl) 25 mg Q4H PRN PO ITCHING AND/OR RASH Last administered on 02/03/18at 10:32; Start 02/01/18 at 14:45 Hydromorphone HCl 1 mg/Sodium Chloride 100.5 ml @ 201 mls/hr Q4H PRN IV BREAKTHROUGH PAIN Last administered on 02/03/18at 11:23; Start 02/01/18 at 15:00 Morphine Sulfate (Oramorph Sr) 45 mg Q8HR PO Last administered on 02/03/18at 06: 49; Start 02/01/18 at 22:00 Deferoxamine Mesylate (Desferal Inj) 1,000 mg ONCE ONCE IM ; Start 02/01/18 at 17:00; Stop 02/01/18 at 17:01; Status DC Deferoxamine Mesylate 500 mg/ Sodium Chloride 250 ml @ 500 mls/hr ONCE ONCE IV Last administered on 02/02/18at 18:09; Start 02/02/18 at 17:00; Stop 02/02/18 at 17:34; Status DC A/P Problem List: (1) Sickle cell pain crisis ICD Code: D57.00 - Hb-SS disease with crisis, unspecified Status: Acute (2) Anemia ICD Code: D64.9 - Anemia Status: Chronic (3) Iron overload due to repeated red blood cell transfusions ICD Code: E83.111 - Hemochromatosis due to repeated red blood cell transfusions Status: Acute (4) Hemolytic anemia ICD Code: D58.9 - Hereditary hemolytic anemia, unspecified Status: Acute (5) Leukocytosis ICD Code: D72.829 - Elevated white blood cell count, unspecified Status: Acute Assessment and Plan 1. Sickle cell pain crisis. Continue IV fluids and pain control. Continue folic acid, hydroxyurea. Patient's hemoglobin stable at 7.8. Reticulocyte count is trending down. Haptoglobin is less than 8. The patient is requesting IV Dilaudid every 3 hours. I will start the patient on Oramorph sustained release, [place] as needed and continue IV Dilaudid for breakthrough pain. 01/31 Patient is still c/o pain increase dose or Morphine SR. Continue [place] and IV Dilaudid for breakthrough pain. Appreciate hematology consultation. 02/01 patient is requesting IV Dilaudid and IV Benadryl to be placed together. Concern for drug-seeking behavior. I will switch the IV Benadryl to oral route and discussed with pharmacy so that we can give IV Dilaudid diluted with normal saline over a period of 30 minutes. Reticulocyte count slightly elevated compared to the previous day. Continue to monitor reticulocyte count, haptoglobin, CBC and LDH. Increase the dose of morphine SR to 45 mg p.o. every 8 hours. 2. Chronic anemia/Iron overload Chronic anemia is likely secondary to sickle cell disease. The patient received 1 unit of PRBCs. Hemoglobin stable 02/02 Feritin very elevated. Will give one dose of Deferoxamine IV. 3. Hypokalemia. Replaced and now within normal range. Continue to monitor BMP and replace as needed. 4. Leukocytosis Chronic. Continue to monitor CBC. There is no evidence of infection. 02/01 WBC still elevated. Up from 11.6-13.2. WILL DC TO HOME TODAY WAS SCHEDULED YESTERDAY TIFFANI RN AND PT AND CM Discharge Planning NEEDS TO FOLLOW UP WITH PCP Madi Uribe DO Feb 03, 2018 13:29
--- NOTE | 2018-02-03 13:34 | HHI.DS ---
Discharge Summary Admission Date January 26, 2018 at 11:23 Discharge Date: Feb 03, 2018 Admitting Diagnosis Vaso-occlusive crisis, anemia, left foot pain (1) Sickle cell pain crisis ICD Code: D57.00 - Hb-SS disease with crisis, unspecified Diagnosis: Principal Status: Acute (2) Anemia ICD Code: D64.9 - Anemia Diagnosis: Principal Status: Chronic (3) Iron overload due to repeated red blood cell transfusions ICD Code: E83.111 - Hemochromatosis due to repeated red blood cell transfusions Diagnosis: Principal Status: Acute (4) Hemolytic anemia ICD Code: D58.9 - Hereditary hemolytic anemia, unspecified Diagnosis: Secondary Status: Acute (5) Leukocytosis ICD Code: D72.829 - Elevated white blood cell count, unspecified Diagnosis: Principal Status: Acute Procedures None Brief History - From Admission Ms. Frazier is a 27-year-old -[place] female with a history of sickle cell disease who presents to the emergency department today due to 2 day duration of generalized pain. She feels that this is similar to her previous sickle cell crisis. Additionally she complains of left foot pain that started after she injured her left ankle 3 days ago. Denies any chest pain, shortness of breath, fever or chills. She follows up with contact center team lead in the outpatient setting. No changes in bowel or bladder habits. CBC/BMP: 02/02/18 0645 02/01/18 0600 Significant Findings Laboratory Tests Test 01/31/18 13:46 02/01/18 06:00 02/02/18 06:45 White Blood Count 11.6 TH/MM3 (4.0-11.0) 13.2 TH/MM3 (4.0-11.0) 15.0 TH/MM3 (4.0-11.0) Red Blood Count 2.54 MIL/MM3 (4.00-5.30) 2.61 MIL/MM3 (4.00-5.30) 2.59 MIL/MM3 (4.00-5.30) Hemoglobin 7.8 GM/DL (11.6-15.3) 7.9 GM/DL (11.6-15.3) 7.7 GM/DL (11.6-15.3) Hematocrit 22.3 % (35.0-46.0) 22.8 % (35.0-46.0) 22.5 % (35.0-46.0) Red Cell Distribution Width 17.4 % (11.6-17.2) 17.4 % (11.6-17.2) 17.6 % (11.6-17.2) Platelet Count 505 TH/MM3 (150-450) 527 TH/MM3 (150-450) 495 TH/MM3 (150-450) Monocytes (%) (Auto) 11.7 % (0.0-8.0) 10.6 % (0.0-8.0) 10.1 % (0.0-8.0) Eosinophils (%) (Auto) 5.6 % (0.0-4.0) 4.7 % (0.0-4.0) Monocytes # (Auto) 1.4 TH/MM3 (0-0.9) 1.4 TH/MM3 (0-0.9) 1.5 TH/MM3 (0-0.9) Eosinophils # (Auto) 0.6 TH/MM3 (0-0.4) 0.6 TH/MM3 (0-0.4) 0.6 TH/MM3 (0-0.4) Sickle Cells 1+ (NORMAL) 1+ (NORMAL) 1+ (NORMAL) Reticulocyte Count 5.7 % (0.4-3.0) 5.8 % (0.4-3.0) 4.9 % (0.4-3.0) Ferritin 4409 NG/ML (8-252) Basophils # (Auto) 0.3 TH/MM3 (0-0.2) Monocytes % 11 % (0-8) 12 % (0-8) Eosinophils % 6 % (0-4) 8 % (0-4) Neutrophils # (Manual) 7.8 TH/MM3 (1.8-7.7) 10.2 TH/MM3 (1.8-7.7) Nucleated Red Blood Cells 3 /100 WBC (0-0) 2 /100 WBC (0-0) Platelet Estimate HIGH (NORMAL) HIGH (NORMAL) Polychromasia 2.0 % (0.0-1.9) Target Cells 1+ (NORMAL) 1+ (NORMAL) Ovalocytes 1+ (NORMAL) Absolute Reticulocyte Count 152.2 MIL/L (20.0-150.0) Blood Urea Nitrogen 5 MG/DL (7-18) Random Glucose 132 MG/DL (74-106) Calcium Level 8.3 MG/DL (8.5-10.1) Aspartate Amino Transf (AST/SGOT) 69 U/L (15-37) Total Bilirubin 1.8 MG/DL (0.2-1.0) Indirect Bilirubin 1.6 MG/DL (0.0-0.8) Neutrophils # (Auto) 9.2 TH/MM3 (1.8-7.7) Haptoglobin LESS THAN 10 MG/DL (30-200) Lactate Dehydrogenase 476 U/L (84-246) Imaging Last Impressions Foot X-Ray 01/25/18 0000 Signed Impressions: CONCLUSION: Unremarkable study. PE at Discharge GENERAL: Awake alert and oriented 3 talkative and cooperative SKIN: Warm and dry. HEAD: Atraumatic. Normocephalic. EYES: Pupils equal and round. No scleral icterus. No injection or drainage. ENT: No nasal bleeding or discharge. Mucous membranes pink and moist. NECK: Trachea midline. No JVD. CARDIOVASCULAR: Regular rate and rhythm. S1-S2 no S3 or S4 RESPIRATORY: No accessory muscle use. Clear to auscultation. Breath sounds equal bilaterally. GASTROINTESTINAL: Abdomen soft, non-tender, nondistended. Hepatic and splenic margins not palpable. MUSCULOSKELETAL: Extremities without clubbing, cyanosis, or edema. No obvious deformities. NEUROLOGICAL: Awake and alert. No obvious cranial nerve deficits. Motor grossly within normal limits. Five out of 5 muscle strength in the arms and legs. Normal speech. PSYCHIATRIC: Appropriate mood and affect; insight and judgment normal. Hospital Course Ms. Frazier is a 27-year-old -[place] female with a history of sickle cell disease who presents to the emergency department today due to 2 day duration of generalized pain. She feels that this is similar to her previous sickle cell crisis. Additionally she complains of left foot pain that started after she injured her left ankle 3 days ago. Denies any chest pain, shortness of breath, fever or chills. She follows up with contact center team lead in the outpatient setting. No changes in bowel or bladder habits. Has been treated for sickle cell disease with pain management. And and home medications. Has been given deferoxamine Patient is now improved medications have been written by my colleague and patient can be discharged home today Pt Condition on Discharge: Stable Discharge Disposition: Discharge Home Discharge Time: <= 30 minutes Discharge Instructions DIET: Follow Instructions for: As Tolerated, No Restrictions, Heart Healthy Diet Speech Therapy-Diet Recommends: Regular Activities you can perform: Regular-No Restrictions Follow up Referrals: Oncology/Hematology - 2 Weeks with Aung Jacobo MD PCP Follow-up - 2 Days New Medications: Morphine ER (Morphine ER) 15 Mg Tab 30 MG PO Q8HR for Pain Management, #9 TAB Changed Medications: Hydrocodone/Acetaminophen (Hydrocodone-Acetamin 10-325 mg) 10 Mg-325 Mg Tablet 1 TAB PO Q4HR PRN for pain, #15 TAB 0 Refills (Changed from: Q6HR) DO NOT USE THIS MEDICINE IF YOU WILL DRIVE A CAR OR USE A MACHINE, ONLY USE IT WHEN RESTING AT HOME. Continued Medications: Albuterol 6.7 GM Inh (Proventil Hfa 6.7 GM Inh) 90 Mcg/Act Aer 2 PUFF INH Q6H PRN for SHORTNESS OF BREATH, #1 INHALER 0 Refills Folic Acid (Folic Acid) 1 Mg Tablet 1 MG PO DAILY for sickle cell for 30 Days, #30 TAB 0 Refills (This prescription has been renewed) Hydroxyurea (Hydrea) 500 Mg Cap 500 MG PO DAILY for sickle cell, #30 CAP 0 Refills (This prescription has been renewed) Zolpidem (Ambien) 5 Mg Tab 5 MG PO HS PRN for INSOMNIA, #30 TAB 0 Refills (This prescription has been renewed) Madi Uribe DO Feb 03, 2018 13:34
== END 2018-02-03 14:14 | disposition home or self-care (01) | DRG 812 ==
LOC: NEPC 23:25 → NEDA 01-26 01:14 → NEPGCP 01-26 02:00 → OBSVTOIN 01-26 11:23 → N07A 01-28 15:18
PROVIDERS: ADMIT Hospitalist; ATTEND Hospitalist
PROC: 30233N1 Transfusion of Nonautologous Red Blood Cells into Peripheral Vein, Percutaneous Approach (ICD-10-PCS; principal; 2018-01-26)
DX: D57.00 Hb-SS disease with crisis, unspecified (principal); E83.111 Hemochromatosis due to repeated red blood cell transfusions; E87.6 Hypokalemia; J45.909 Unspecified asthma, uncomplicated; M72.2 Plantar fascial fibromatosis; M25.572 Pain in left ankle and joints of left foot; D72.829 Elevated white blood cell count, unspecified; F41.9 Anxiety disorder, unspecified; R07.9 Chest pain, unspecified; Z83.2 Family history of diseases of the blood and blood-forming organs and certain disorders involving the immune mechanism; Z91.14 Patient's other noncompliance with medication regimen
CPT/HCPCS: 36430; 73630; 80048; 80053; 80076; 82728; 83010; 83615; 85007; 85025; 85027; 85044; 86850; 86900; 86901; 86920; 86922; 96361; 96374; 96375; 99285; J0895; J1170; J1200; J2270; J7030; J7050; P9016

== ENCOUNTER 2018-02-06 00:15 | Emergency (ER) | payer MEDICAID ==
[~2018-02-06 00:15] MED LIST changes: +MORP1TAB24 PO
[2018-02-06 00:18] VITALS: BP 136/79; PULSE 120; RESP 18; TEMP 99; O2SAT 96
--- NOTE | 2018-02-06 00:43 | PD ---
HPI Chief Complaint: Sickle Cell Time Seen by Provider: 00:29 Travel History International Travel<30 days: No Contact w/Intl Traveler<30days: No Traveled to known affect area: No History of Present Illness HPI 27yo F with PMH of asthma and sickle cell disease here with c/o generalized body pain that feels like her sickcell crisis. Pt was just discharged a few days ago and said she still had pain when she was discharged. Said she feels sob because she has asthma wants treatment for asthma but does not prednisone. Pt denies any chest pain, n/v, abdominal pain, focal weakness or numbness. PFSH Past Medical History Anemia: Yes (Sickle cell) Asthma: Yes Autoimmune Disease: Yes (SICKLE CELL) Blood Disorders: Yes Anxiety: Yes Depression: No Heart Rhythm Problems: No Cancer: No Cardiovascular Problems: Yes (CHF) High Cholesterol: No Chemotherapy: No Chest Pain: Yes Congestive Heart Failure: Yes COPD: No Diabetes: No Diminished Hearing: No Endocrine: No Genitourinary: No Headaches: Yes Immune Disorder: Yes Implanted Vascular Access Dvce: Yes Musculoskeletal: No Neurologic: Yes Psychiatric: Yes Reproductive: No Respiratory: Yes (ASTHMA) Immunizations Current: Yes Migraines: Yes Pneumonia: Yes Radiation Therapy: No Sickle Cell Disease: Yes Sleep Apnea: No Thyroid Disease: No PNEUMOCCOCAL Vaccine (Year): 1 ?: Not : 1 Para: 1 Miscarriage: 0 : 0 Tubal Ligation: Yes Past Surgical History Abdominal Surgery: Yes (gall stones removed) Body Medical Devices: R Chest Infusaport (3RD) Section: Yes (X 1) Cholecystectomy: Yes Genitourinary Surgery: No Gynecologic Surgery: Yes (c section) Hysterectomy: No Insulin Pump: No Joint Replacement: No Neurologic Surgery: No Oral Surgery: No Pacemaker: No Thoracic Surgery: No Other Surgery: Yes (R port x 3 removed x 2) Social History Alcohol Use: Yes Tobacco Use: No Substance Use: No Allergies-Medications (Allergen,Severity, Reaction): Coded Allergies: oxycodone (Verified Allergy, Intermediate, itching, 02/06/18) Reported Meds & Prescriptions Reported Meds & Active Scripts Active Ventolin Hfa 18 GM Inh (Albuterol Sulfate) 90 Mcg/Act Aer 2 Puff INH Q4H PRN Morphine ER (Morphine Sulfate) 15 Mg Tab 30 Mg PO Q8HR Hydrocodone-Acetamin 10-325 mg (Hydrocodone/Acetaminophen) 10 Mg-325 Mg Tablet 1 Tab PO Q4HR PRN DO NOT USE THIS MEDICINE IF YOU WILL DRIVE A CAR OR USE A MACHINE, ONLY USE IT WHEN RESTING AT HOME. Ambien (Zolpidem Tartrate) 5 Mg Tab 5 Mg PO HS PRN Hydrea (Hydroxyurea) 500 Mg Cap 500 Mg PO DAILY Folic Acid 1 Mg Tablet 1 Mg PO DAILY 30 Days Reported Proventil Hfa 6.7 GM Inh (Albuterol Sulfate) 90 Mcg/Act Aer 2 Puff INH Q6H PRN Review of Systems Except as stated in HPI: all other systems reviewed are Neg Physical Exam Narrative GENERAL: 27yo F not in distress. SKIN: Focused skin assessment warm/dry. HEAD: Atraumatic. Normocephalic. EYES: Pupils equal and round. No scleral icterus. No injection or drainage. ENT: No nasal bleeding or discharge. Mucous membranes pink and moist. NECK: Trachea midline. No JVD. CARDIOVASCULAR: Regular rate and rhythm. No murmur appreciated. RESPIRATORY: No accessory muscle use. Clear to auscultation. Breath sounds equal bilaterally. GASTROINTESTINAL: Abdomen soft, non-tender, nondistended. MUSCULOSKELETAL: No obvious deformities. No clubbing. No cyanosis. No edema. NEUROLOGICAL: Awake and alert. No obvious cranial nerve deficits. Motor grossly within normal limits in all extremities. Sensation intact. Normal speech. PSYCHIATRIC: Appropriate mood and affect; insight and judgment normal. Data Data Last Documented VS Vital Signs Date Time Temp Pulse Resp B/P (MAP) Pulse Ox O2 Delivery O2 Flow Rate FiO2 02/06/18 03:04 97 02/06/18 00:18 99.0 18 136/79 (98) 96 Orders Orders Basic Metabolic Panel (Bmp) (02/06/18 00:37) Complete Blood Count With Diff (02/06/18 00:37) Retic Count (02/06/18 00:37) Troponin I (02/06/18 00:37) Electrocardiogram (02/06/18 ) Hydromorphone Pf Inj (Dilaudid Pf Inj) (02/06/18 00:45) Ondansetron Odt (Zofran Odt) (02/06/18 00:45) Diphenhydramine Inj (Benadryl Inj) (02/06/18 00:45) Sodium Chlor 0.9% 1000 Ml Inj (Ns 1000 M (02/06/18 00:45) Albuterol-Ipratropium Neb (Duoneb Neb) (02/06/18 00:45) Chest, Single Ap (02/06/18 ) Hydromorphone Pf Inj (Dilaudid Pf Inj) (02/06/18 01:02) Troponin I (02/06/18 01:10) Hydromorphone Pf Inj (Dilaudid Pf Inj) (02/06/18 02:00) Diphenhydramine Inj (Benadryl Inj) (02/06/18 02:00) Sodium Chlor 0.9% 1000 Ml Inj (Ns 1000 M (02/06/18 02:00) Troponin I (02/06/18 04:13) Hydromorphone Pf Inj (Dilaudid Pf Inj) (02/06/18 04:30) Diphenhydramine Inj (Benadryl Inj) (02/06/18 04:30) Hydromorphone Pf Inj (Dilaudid Pf Inj) (02/06/18 04:24) Ed Discharge Order (02/06/18 05:09) Heparin Central Flush (Heparin Central F (02/06/18 05:15) Labs Laboratory Tests Test 02/06/18 01:10 02/06/18 04:18 White Blood Count 15.1 TH/MM3 Red Blood Count 3.04 MIL/MM3 Hemoglobin 9.1 GM/DL Hematocrit 26.8 % Mean Corpuscular Volume 88.3 FL Mean Corpuscular Hemoglobin 30.1 PG Mean Corpuscular Hemoglobin Concent 34.1 % Red Cell Distribution Width 17.4 % Platelet Count 479 TH/MM3 Mean Platelet Volume 8.0 FL Neutrophils (%) (Auto) 76.2 % Lymphocytes (%) (Auto) 14.0 % Monocytes (%) (Auto) 8.5 % Eosinophils (%) (Auto) 0.2 % Basophils (%) (Auto) 1.1 % Neutrophils # (Auto) 11.5 TH/MM3 Lymphocytes # (Auto) 2.1 TH/MM3 Monocytes # (Auto) 1.3 TH/MM3 Eosinophils # (Auto) 0.0 TH/MM3 Basophils # (Auto) 0.2 TH/MM3 CBC Comment AUTO DIFF Differential Total Cells Counted 100 Neutrophils % (Manual) 79 % Lymphocytes % 12 % Monocytes % 8 % Eosinophils % 1 % Neutrophils # (Manual) 11.9 TH/MM3 Nucleated Red Blood Cells 1 /100 WBC Differential Comment FINAL DIFF MANUAL Platelet Estimate HIGH Platelet Morphology Comment NORMAL Basophilic Stippling HEAVY Sickle Cells 1+ Target Cells 1+ Ovalocytes 1+ Karimi-[place] Bodies PRESENT Reticulocyte Count 9.6 % Absolute Reticulocyte Count 291.1 MIL/L Blood Urea Nitrogen 6 MG/DL Creatinine 0.63 MG/DL Random Glucose 104 MG/DL Calcium Level 9.1 MG/DL Sodium Level 138 MEQ/L Potassium Level 3.3 MEQ/L Chloride Level 103 MEQ/L Carbon Dioxide Level 25.7 MEQ/L Anion Gap 9 MEQ/L Estimat Glomerular Filtration Rate 136 ML/MIN Troponin I LESS THAN 0.02 NG/ML LESS THAN 0.02 NG/ML MDM Medical Decision Making Medical Screen Exam Complete: Yes Emergency Medical Condition: Yes Interpretation(s) EKG: NSR 99bpm. Normal axis. TWI diffusely. Differential Diagnosis Vasoocclusive crisis vs. asthma exacerbation vs. acute chest syndrome Narrative Course 27yo F with sickle cell disease here with c/o generalize body pain that feels like her sickle cell crisis. Pt is not wheezing and saturating at 96% on RA but she said she is sob because she has asthma and wants nebulizer treatment but not steroid. Pt feels better after nebulizer treatment. Denies any chest pain. Labs reviewed, WBC 15.1 unchanged from prior. H/H at 9.1/26.8 which is improved from prior. BMP showed mild hypokalemia at 3.3, replaced orally. Troponin negative. CXR showed cardiomegaly. No acute findings. Pt has no chest pain but there are symmetric TW inversions so will repeat a troponin just in case. Had T wave inversions in previous EKG just not as diffuse. Do not think it is an ischemic pattern. Troponin #2 is negative. Pt given dilaudid with diphenhydramine and zofran as requested by patient. After a few doses, pt said she is ready to go home. Pt did not want steroid so only prescribed ventolin for asthma. Return precautions given. Diagnosis Primary Impression: Vasoocclusive sickle cell crisis Additional Impression: Asthma Patient Instructions: General Instructions Departure Forms: Tests/Procedures Additional Instructions: Please follow up with your teaching fellow. Return to the ED if symptoms worsen. Med/Other Pt SpecificInfo: Prescription(s) given Scripts Albuterol 18 GM Inh (Ventolin Hfa 18 GM Inh) 90 Mcg/Act Aer 2 PUFF INH Q4H Y for SHORTNESS OF BREATH, #1 INHALER 0 Refills Prov: Tana Khalil DO 02/06/18 Disposition: 01 DISCHARGE HOME Condition: Stable Tana Khalil DO Feb 06, 2018 00:43
[2018-02-06] MEDS ORDERED: diphenhydrAMINE HCL 50 MG/ML VIAL IV PUSH ONE ×3 (00:45→04:30)
[2018-02-06] MEDS ORDERED: HYDROmorphone HCL PF 1 MG/ML VIAL IV PUSH ONE ×3 (00:45→04:30)
[2018-02-06] MEDS ORDERED: ONDANSETRON ODT 4 MG TAB PO ONE (00:45)
[2018-02-06] MEDS ORDERED: SODIUM CHLOR 0.9% 1000 ML INJ 1,000 ML IV ONE ×2 (00:45→02:00)
[2018-02-06] MEDS: RESP: ALBUTEROL 2.5 MG/IPRATROPIUM 0.5 MG NEB (SCH) INH (00:57)
[2018-02-06] MEDS ORDERED: HYDROmorphone HCL PF 2 MG/ML VIAL ONE ×2 (01:02→04:24)
--- NOTE | 2018-02-06 01:17 | RADRPT ---
EXAM DATE: 02/06/2018 1:04 AM EDT AGE/SEX: 27 years / Female INDICATIONS: Sickle cell crisis CLINICAL DATA: This is the patient's initial encounter. Patient reports that signs and symptoms have been present for 1 day and indicates a pain score of 8/10. MEDICAL/SURGICAL HISTORY: Sickle Cell disease. . Infusaport placement COMPARISON: No prior exams available for comparison. FINDINGS: Heart size is enlarged. [id number] tip in superior vena cava. No consolidation or effusion. No pne umothorax. CONCLUSION: Cardiomegaly. No acute findings. Electronically signed by: Naresh Silverio MD 02/06/2018 1:16 AM EDT
[2018-02-06 01:26] LABS: AUTOMATED NEUTROPHIL # 11.5 TH/MM3 (1.8-7.7); BASOPHIL # 0.2 TH/MM3 (0-0.2); BASOPHIL % 1.1 % (0.0-2.0); EOSINOPHIL % 0.2 % (0.0-4.0); HEMATOCRIT 26.8 % (35.0-46.0); HEMOGLOBIN 9.1 GM/DL (11.6-15.3); LYMPHOCYTE # 2.1 TH/MM3 (1.0-4.8); MEAN CELL VOLUME 88.3 FL (80.0-100.0); MEAN CORPUSCULAR HEMOGLOBIN 30.1 PG (27.0-34.0); MEAN CORPUSCULAR HGB CONC 34.1 % (32.0-36.0); MONO % 8.5 % (0.0-8.0); MONOCYTE # 1.3 TH/MM3 (0-0.9); NEUT % 76.2 % (16.0-70.0); PLATELET COUNT 479 TH/MM3 (150-450); RED BLOOD COUNT 3.04 MIL/MM3 (4.00-5.30); RED CELL DISTRIBUTION WIDTH 17.4 % (11.6-17.2); RETIC # 291.1 MIL/L (20.0-150.0); RETIC % 9.6 % (0.4-3.0); WHITE BLOOD COUNT 15.1 TH/MM3 (4.0-11.0)
[2018-02-06 01:40] LABS: BICARBONATE 25.7 MEQ/L (21.0-32.0); BLOOD UREA NITROGEN 6 MG/DL (7-18); CALCIUM 9.1 MG/DL (8.5-10.1); CHLORIDE 103 MEQ/L (98-107); CREATININE 0.63 MG/DL (0.50-1.00); GLOMERULAR FILTRATION RATE 136 ML/MIN (>89); GLUCOSE,RANDOM 104 MG/DL (74-106); SODIUM (NA) 138 MEQ/L (136-145)
[2018-02-06 01:43] LABS: TROPONIN I LESS THAN 0.02 NG/ML (0.02-0.05)
[2018-02-06 02:00] LABS: CORRECTED NUCLEATED RBC 1 /100 WBC (0-0); LYMPHOCYTES 12 % (9-44); MONOCYTES 8 % (0-8); NEUTROPHIL # MANUAL DIFF 11.9 TH/MM3 (1.8-7.7); NUCLEATED RED BLOOD CELL 1 (0-0); POLYS (SEG NEUTROPHILS) 79 % (16-70)
[2018-02-06 02:01] LABS: OVALOCYTES 1+ (NORMAL); SICKLE CELLS 1+ (NORMAL)
[2018-02-06 02:02] LABS: HOWELL-JOLLY BODIES PRESENT (NONE SEEN); TARGET CELLS 1+ (NORMAL)
[2018-02-06 03:04] VITALS: PULSE 97
[2018-02-06] MEDS ORDERED: VENTAER INH (05:11)
--- NOTE | 2018-02-06 14:55 | EKG ---
Date Performed: 02/06/2018 Time Performed: 01:02:53 PTAGE: 27 years EKG: Sinus rhythm MODERATE T-WAVE ABNORMALITY, CONSIDER ANTEROLATERAL ISCHEMIA MODERATE T-WAVE ABNORMALITY, CONSIDER I NFERIOR ISCHEMIA ABNORMAL ECG PREVIOUS TRACING : 02/05/2016 03.04 COMPARED WITH PREVIOUS EKG T-WAVE ABNORMALITIES ARE MORE P ROMINENT DOCTOR: Deondre Romero Interpretating Date/Time 02/06/2018 14:54:16
== END 2018-02-06 05:33 | disposition home or self-care (01) ==
LOC: NEPC 00:15
DX: D57.00 Hb-SS disease with crisis, unspecified (principal); J45.909 Unspecified asthma, uncomplicated; R52 Pain, unspecified; R94.31 Abnormal electrocardiogram [ECG] [EKG]; R06.02 Shortness of breath; I50.9 Heart failure, unspecified; Z88.5 Allergy status to narcotic agent; E87.6 Hypokalemia; I51.7 Cardiomegaly
CPT/HCPCS: 71045; 80048; 84484; 85007; 85027; 85044; 93005; 94640; 94664; 96361; 96374; 96375; 96376; 99285; J1170; J1200; J1642; J7030

== ENCOUNTER 2018-03-10 03:24 | Inpatient (IN) ==
[2018-03-10] MEDS ORDERED: HYDROmorphone PF Inj 2 MG/ML Vial IV.PUSH ONE ×4 (03:58→10:24)
[2018-03-10] MEDS ORDERED: Ketorolac Inj 30 MG/ML (IVP) Vial IV.PUSH ONE (03:58)
[2018-03-10] MEDS ORDERED: Sod Chloride 0.9% Inj 1,000 ML IV.SIG SCH (04:00)
[2018-03-10 04:55] LABS: Baso # (Auto) 0.5 th/mm3 (0.0-0.2); Baso % (Auto) 3.9 % (0.0-2.0); Eos # (Auto) 0.3 th/mm3 (0.0-0.4); Eos % (Auto) 2.3 % (0.0-4.0); Hematocrit 23.9 % (35.0-46.0); Lymph # (Auto) 2.7 th/mm3 (1.0-4.8); Lymph % (Auto) 23.5 % (9.0-44.0); Mean Corpuscular HGB Conc 33.2 % (32.0-36.0); Mean Corpuscular Hemoglobin 29.9 pg (27.0-34.0); Mean Corpuscular Volume 90.1 fL (80.0-100.0); Mean Platelet Volume 7.5 fL (7.0-11.0); Mono # (Auto) 1.4 th/mm3 (0.0-0.9); Mono % (Auto) 12.4 % (0.0-8.0); Neut # (Auto) 6.7 th/mm3 (1.8-7.7); Neut % (Auto) 57.9 % (16.0-70.0); Platelet Count 392 th/mm3 (150-450); Red Blood Count 2.66 mil/mm3 (4.00-5.30); Red Cell Distribution Width 16.1 % (11.6-17.2); Reticulocyte Percent 7.1 % (0.4-3.0); White Blood Count 11.6 th/mm3 (4.0-11.0)
[2018-03-10 05:16] LABS: Anion Gap 9 meq/L (5-15); Blood Urea Nitrogen 4 mg/dL (7-18); Calcium 8.8 mg/dL (8.5-10.1); Carbon Dioxide 23.2 meq/L (21.0-32.0); Chloride 110 meq/L (98-107); Glomerular Filtration Rate Greater Than 89 mL/min (>89); Glucose,Random 100 mg/dL (74-106); Potassium 3.4 meq/L (3.5-5.1); Sodium 142 meq/L (136-145)
[2018-03-10 05:35] LABS: Eosinophils 4 % (0-4); Lymphocytes 23 % (9-44); Monocytes 10 % (0-8)
[2018-03-10 05:36] LABS: Ovalocytes 1+; Platelet Estimate Normal (Normal); Platelet Morphology Normal (Normal); Sickle Cells 1+
[2018-03-10] MEDS ORDERED: Sod Chloride 0.9% Inj 1,000 ML IV.SIG ONE (06:35)
--- NOTE | 2018-03-10 06:38 | ED ---
HPI General Chief complaint: Sickle Cell Stated complaint: Poss Sickle Cell Time Seen by Provider: 03/10/18 03:53 History of Present Illness HPI narrative: 27-year-old female with known sickle cell disease presents to the emergency department for complaint of sickle cell pain. Patient complains of generalized back and extremity pain. Patient states this is typical for her. Patient states symptoms are typically exacerbated by menses. Patient states that she expects to start her cycle in the next 1-2 days. No fever chills no nausea or vomiting no chest pain or shortness of breath no abdominal pain no dysuria frequency urgency vaginal discharge vaginal bleeding and denies . Patient's had no injury or fall. Patient has been taking her outpatient maintenance medication without symptom relief. Patient rates her pain 9/10 in intensity. Related Data Allergies Allergy/AdvReac Type Severity Reaction Status Date / Time oxycodone Allergy Intermediate itching Verified 02/06/18 00:17 Review of Systems Except as stated in HPI: all other systems reviewed are negative PMFSH Medical History Medical History Asthma (Acute) Heart hypertrophy (Acute) Sickle cell anemia with pain (Acute) Surgical History Surgical History History of cholecystectomy (Acute) Social History Social History Substance History: No History of Abuse Second Hand Smoke Exposure: No Smoking Status: Never smoker How Often Do You Have a Drink Containing Alcohol: Never Recent Travel in [facility] within the Last 8 Weeks: No Recent Out of Country Travel within the Last 8 Weeks: No Immunization History Tetanus Immunization: Unsure Exam Narrative Exam Narrative: GENERAL: Well-nourished, well-developed patient. Patient in no distress vital signs stable pulse rate is minimally upper development of normal at 98; patient talking on cell phone appears comfortable SKIN: Focused skin assessment warm/dry. HEAD: Normocephalic. EYES: No scleral icterus. No injection or drainage. NECK: Supple, trachea midline. No JVD or lymphadenopathy. CARDIOVASCULAR: Regular rate and rhythm without murmurs, gallops, or rubs. RESPIRATORY: Breath sounds equal bilaterally. No accessory muscle use. GASTROINTESTINAL: Abdomen soft, non-tender, nondistended. MUSCULOSKELETAL: No cyanosis, or edema. BACK: Nontender without obvious deformity. No CVA tenderness. Course Initial Documented Vital Signs Temperature 98.8 F 03/10/18 03:31 Pulse Rate 117 H 03/10/18 03:31 Respiratory Rate 16 03/10/18 03:31 Blood Pressure 133/86 03/10/18 03:31 Pulse Oximetry 99 03/10/18 03:31 Last Documented Vital Signs Temperature 98.8 F 03/10/18 03:31 Pulse Rate 88 03/10/18 10:34 Respiratory Rate 15 03/10/18 10:34 Blood Pressure 116/73 03/10/18 10:34 Pulse Oximetry 96 03/10/18 10:34 Sign Out Sign Out Data: Patient Sign Out occurred on 03/10/18 at 07:09. Patient's care was discussed, and care was transferred from Alma Shepherd MD to Kalin Pal MD. Sign Out Comment: UA, dispo, care signed over to Dr Pal Last updated by Alma Shepherd MD at 03/10/18 07:07 Post-Handoff Eval: Assume care patient. Continued pain in the emergency department. Uncontrolled despite multiple doses of parenteral opioids. Recommend admission for pain control for vaso-occlusive pain crisis. Medical Decision Making MDM Narrative Medical decision making narrative: 27-year-old female with known sickle cell disease presents to the emergency department complaining of exacerbation of her sickle cell disorder with generalized bone pain affecting her extremities and back. Patient denies any fever chills nausea or vomiting chest pain shortness of breath or abdominal pain. Patient states she presents to the emergency department approximately once a month at the time of her menstrual cycle. Patient reports that should be occurring in the next few days. Patient states her outpatient maintenance medication is not controlling her pain. Patient had no injury or fall. Patient denies . Patient denies dysuria frequency or urgency. Patient states her back pain is her primary source of pain. Patient states this is also typical. Patient denies other concerns or complaints. 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 Differential Diagnosis Differential Diagnosis: Vaso-occlusive crisis, anemia, aplastic anemia, UTI, Medical Records Medical records reviewed: Yes I reviewed the patient's medical records. POC Test Results POC Urine Results: Negative Lab Data Result diagrams: 03/10/18 04:40 03/10/18 04:40 Lab Results 03/10/18 03/10/18 03/10/18 Range/Units 04:40 04:40 07:35 WBC 11.6 H (4.0-11.0) th/mm3 RBC 2.66 L (4.00-5.30) mil/mm3 Hgb 8.0 L (11.6-15.3) gm/dL Hct 23.9 L (35.0-46.0) % MCV 90.1 (80.0-100.0) fL MCH 29.9 (27.0-34.0) pg MCHC 33.2 (32.0-36.0) % RDW 16.1 (11.6-17.2) % Plt Count 392 (150-450) th/mm3 MPV 7.5 (7.0-11.0) fL Prelim Diff (Auto) Slide review pending Neut % (Auto) 57.9 (16.0-70.0) % Lymph % (Auto) 23.5 (9.0-44.0) % [place] % (Auto) 12.4 H (0.0-8.0) % Eos % (Auto) 2.3 (0.0-4.0) % Baso % (Auto) 3.9 H (0.0-2.0) % Neut # (Auto) 6.7 (1.8-7.7) th/mm3 Lymph # (Auto) 2.7 (1.0-4.8) th/mm3 [place] # (Auto) 1.4 H (0.0-0.9) th/mm3 Eos # (Auto) 0.3 (0.0-0.4) th/mm3 Baso # (Auto) 0.5 H (0.0-0.2) th/mm3 WBC Differential Manual diff final Seg Neuts % (Manual) 63 (16-70) % Lymphocytes % (Manual) 23 (9-44) % Monocytes % (Manual) 10 H (0-8) % Eosinophils % (Manual) 4 (0-4) % Abs Neuts (Manual) 7.3 (1.8-7.7) th/mm3 Differential Comment . Platelet Estimate Normal (Normal) Platelet Morphology Normal (Normal) Sickle Cells 1+ H (None) Ovalocytes 1+ H (None) Retic Count 7.1 H (0.4-3.0) % Absolute Retic 188.2 H (20.0-150.0) mil/L Sodium 142 (136-145) meq/L Potassium 3.4 L (3.5-5.1) meq/L Chloride 110 H (98-107) meq/L Carbon Dioxide 23.2 (21.0-32.0) meq/L Anion Gap 9 (5-15) meq/L BUN 4 L (7-18) mg/dL Creatinine 0.75 (0.50-1.00) mg/dL Estimated GFR Greater than 89 (>89) mL/min Random Glucose 100 (74-106) mg/dL Calcium 8.8 (8.5-10.1) mg/dL Urine Color Yellow (Yellw/Straw) Urine Clarity Hazy H (Clear) Urine pH 6.0 (5.0-8.5) Ur Specific [place] 1.011 (1.002-1.035) Urine Protein Negative (Neg-Trace) mg/dL Urine Glucose (UA) Negative (Negative) mg/dL Urine Ketones Negative (Negative) mg/dL Urine Occult Blood Negative (Negative) Urine Nitrate Negative (Negative) Urine Bilirubin Negative (Negative) Urine Urobilinogen Less than 2 (Less than 2) mg/dL Ur Leukocyte Esterase Negative (Negative) Urine RBC 1 (0-3) /hpf Urine WBC 1 (0-5) /hpf Ur Squamous Epith Cells 2 (0-5) /hpf Hyaline Casts 1 (0-3) /lpf Urine Mucus Few H (Occasional) /lpf Micro UA Comment Culture not ind Urine Culture Comments Culture not ind Discharge Plan Discharge Disposition Patient Disposition: 30 Still Patient Discharge Condition Condition: Stable Discharge Details Diagnosis: Sickle cell disease Physicians Team ED Provider: Kalin Pal Primary Care Provider: UNKNOWN, Status ED Status: Pending Admission
[2018-03-10] MEDS ORDERED: HYDROmorphone PF Inj 1 MG/ML Ampul IV.PUSH STA (08:20)
[2018-03-10 08:31] LABS: Bilirubin,Urine Negative (Negative); Clarity,Urine Hazy (Clear); Color,Urine Yellow (Yellw/Straw); Glucose,Urine (UA) Negative (Negative); Hyaline Casts,Urine 1 /lpf (0-3); Leukocyte Esterase,Urine Negative (Negative); Mucus,Urine Few /lpf (Occasional); Nitrite,Urine Negative (Negative); Specific Gravity,Urine 1.011 (1.002-1.035); Squamous Epithelial Cell,Urine 2 /hpf (0-5)
--- NOTE | 2018-03-10 14:10 | P.HPIM ---
History of Present Illness Primary Care Physician: UNKNOWN Chief Complaint: Generalized body aches History of Present Illness: This is a 27-year-old female with history of sickle cell crisis, bronchial asthma presenting with generalized body aches mostly in both upper extremities and lower extremities. She also comments of chills, and diarrhea yesterday about 2-3 times, loose, nonbloody, nonmucoid associated with mild stomach pain, nausea and one episode of vomiting. She denies any cough, shortness of breath, chest pain, dysuria, frequency, urgency, numbness, fever, or focal weakness. She has a mild headache. 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 He took her off hydroxyurea a month ago. Inpatient Certification: I certify that the inpatient services were ordered in accordance with Medicare regulations governing the order. This includes certification that hospital inpatient services are reasonable and necessary and in the case of services not specified as inpatient-only under 42 CFR 419.22(n), that they are appropriately provided as inpatient services in accordance to with the 2-midnight benchmark under 43 CFR 412.3(e) Review of Systems All other pertinent systems were reviewed and are negative. PMFSH - History History Provided By: Patient - Medical History Medical History: Medical History (Last Reviewed 03/10/18 @ 07:11 by Alma Shepherd MD) Asthma Heart hypertrophy Sickle cell anemia with pain - Surgical History Surgical History: Surgical History (Last Reviewed 03/10/18 @ 07:11 by Alma Shepherd MD) History of cholecystectomy - Tobacco History Second Hand Smoke Exposure: No Smoking Status: Never smoker - Alcohol History How Often Do You Have a Drink Containing Alcohol: Never - Substance Use History Substance History: No History of Abuse - Travel History Recent Travel in the [place] Within the Last 8 Weeks: No Recent Travel Out of the Country Within the Last 8 Weeks: No - Immunization History Tetanus Immunization: Unsure Medications and Allergies Allergies Allergy/AdvReac Type Severity Reaction Status Date / Time oxycodone Allergy Intermediate itching Verified 02/06/18 00:17 Exam Vital signs: Vital Signs 03/10/18 03:31 03/10/18 04:10 03/10/18 04:45 Temperature 98.8 F Pulse Rate 117 H 98 H Respiratory Rate 16 18 Blood Pressure 133/86 129/80 Pulse Oximetry 99 99 98 03/10/18 06:00 03/10/18 07:15 03/10/18 07:30 Temperature Pulse Rate 98 H 93 H Respiratory Rate 18 18 16 Blood Pressure 108/73 109/64 Pulse Oximetry 99 98 03/10/18 10:34 03/10/18 11:01 03/10/18 11:30 Temperature Pulse Rate 88 79 Respiratory Rate 15 18 18 Blood Pressure 116/73 110/56 L Pulse Oximetry 96 03/10/18 12:35 Temperature Pulse Rate 80 Respiratory Rate 15 Blood Pressure 116/73 Pulse Oximetry Intake & Output 03/09/18 03/10/18 03/10/18 18:59 06:59 18:59 Intake Total 1999 Balance 1999 Intake: IV 1999 NS Inj 1,000 ML @ Wide Open IV. 999 / 999 SIG BOLUS ONE Rx#:[id number] Narrative: GENERAL: Not in acute distress, well-nourished. Ambulating from the bathroom to her room without any notable discomfort or pain. HEAD: Atraumatic. Normocephalic. EYES: PERRL, full EOMs, no jaundice, nonicteric, pale conjunctivae without injection, moist mucosa ENT: Nose without bleeding, purulent drainage. NECK: Trachea midline, no mass, no obvious thyromegaly. CARDIOVASCULAR: Regular rate and rhythm without murmurs, gallops, or rubs. RESPIRATORY: Clear to auscultation with normal respiratory effort. Breath sounds equal bilaterally. GASTROINTESTINAL: Abdomen soft, normal bowel sounds, non-tender, nondistended. MUSCULOSKELETAL: Extremities without clubbing, cyanosis, or edema. Positive for tenderness on palpation of upper extremities and lower extremities, no joint tenderness. Positive for tenderness on palpation of the lower extremities.-Feigning? INTEGUMENTARY: Warm and dry, no rash of generalized distribution. NEUROLOGICAL: Awake, alert, oriented 3. No obvious cranial nerve deficits. Moves all 4 extremities, muscle strength testing 5 over 5. Motor and sensory grossly within normal limits. .Supple neck, no meningeal signs. Grossly negative cerebellar examination. No focal neurologic deficits. Results - Labs CBC & Chem 7: 03/10/18 04:40 03/10/18 04:40 Labs: Short CBC 03/10/18 Range/Units 04:40 WBC 11.6 H (4.0-11.0) th/mm3 Hgb 8.0 L (11.6-15.3) gm/dL Hct 23.9 L (35.0-46.0) % Plt Count 392 (150-450) th/mm3 BMP 03/10/18 04:40 Sodium 142 Potassium 3.4 L Chloride 110 H Carbon Dioxide 23.2 BUN 4 L Creatinine 0.75 Calcium 8.8 Urine 03/10/18 Range/Units 07:35 Urine Color Yellow (Yellw/Straw) Urine Clarity Hazy H (Clear) Urine pH 6.0 (5.0-8.5) Ur Specific [place] 1.011 (1.002-1.035) Urine Protein Negative (Neg-Trace) mg/dL Urine Glucose (UA) Negative (Negative) mg/dL Caprini VTE Risk Assessment Caprini VTE Risk Assessment: Moderate/High Risk (score >= 2) Caprini Risk Assessment Model: Point Value = 1 Point Value = 2 Point Value = 3 Point Value = 5 Age 41-60 Minor surgery BMI > 25 kg/m2 Swollen legs Varicose veins or History of unexplained or recurrent spontaneous Oral contraceptives or hormone replacement Sepsis (< 1 month) Serious lung disease, including pneumonia (< 1 month) Abnormal pulmonary function Acute myocardial infarction Congestive heart failure (< 1 month) History of inflammatory bowel disease Medical patient at bed rest Age 61-74 Arthroscopic surgery Major open surgery (> 45 min) Laparoscopic surgery (> 45 min) Malignancy Confined to bed (> 72 hours) Immobilizing plaster cast Central venous access Age >= 75 History of VTE Family history of VTE Factor V Leiden Prothrombin [id number] Lupus anticoagulant Anticardiolipin antibodies Elevated serum homocysteine Heparin-induced thrombocytopenia Other congenital or acquired thrombophilia Stroke (< 1 month) Elective arthroplasty Hip, pelvis, or leg fracture Acute spinal cord injury (< 1 month) Prophylaxis Regimen: Total Risk Factor Score Risk Level Prophylaxis Regimen 0-1 Low Early ambulation 2 Moderate Order ONE of the following: *Sequential Compression Device (SCD) *Heparin 5000 units SQ BID 3-4 Higher Order ONE of the following medications: *Heparin 5000 units SQ TID *Enoxaparin/Lovenox 40 mg SQ daily (WT < 150 kg, CrCl > 30 mL/min) *Enoxaparin/Lovenox 30 mg SQ daily (WT < 150 kg, CrCl > 10-29 mL/min) *Enoxaparin/Lovenox 30 mg SQ BID (WT < 150 kg, CrCl > 30 mL/min) AND/OR *Sequential Compression Device (SCD) 5 or more Highest Order ONE of the following medications: *Heparin 5000 units SQ TID (Preferred with Epidurals) *Enoxaparin/Lovenox 40 mg SQ daily (WT < 150 kg, CrCl > 30 mL/min) *Enoxaparin/Lovenox 30 mg SQ daily (WT < 150 kg, CrCl > 10-29 mL/min) *Enoxaparin/Lovenox 30 mg SQ BID (WT < 150 kg, CrCl > 30 mL/min) AND *Sequential Compression Device (SCD) Assessment and Plan - Plan This is a 27-year-old female with history of sickle cell crisis and bronchial asthma presenting with generalized body aches Rule out sickle cell crisis-I doubt she is in reaal crisis or mild if any, her hemoglobin is at baseline at 8, mild leukocytosis of 11.6, reticulocyte count of 7.1. Check LDH. Urinalysis is normal. She also does not appear to be in pain, I saw her ambulating without any discomfort. I suspect there is an element of narcotic seeking behavior. She is requesting Dilaudid intravenously instead of morphine. She is also requesting Benadryl intravenously together with her narcotics. I declined to use Benadryl intravenously and can get p.o. since she is not nauseated. She is not happy. She is also not happy that she will be getting morphine instead of hydrocodone. I suggest tapering of intravenous morphine to oral soon. Start normal saline.. Possible narcotic seeking behavior-see above, avoid Dilaudid and intravenous Benadryl. Hypokalemia-replaced Bronchial asthma-duo nebs as needed DVT prophylaxis: Lovenox
[2018-03-10] MEDS ORDERED: Bisacodyl 10 MG Supp RECTAL PRN (14:32)
[2018-03-10] MEDS ORDERED: Naloxone Inj 0.4 MG/ML Vial IV.PUSH PRN (14:34)
[2018-03-10] MEDS ORDERED: Morphine Inj 4 MG/ML Vial IV.PUSH PRN (15:00)
[2018-03-10] MEDS ORDERED: Acetaminophen 325 MG Tablet PO PRN (15:00)
[2018-03-10] MEDS: Sod Chloride 0.9% Inj 1,000 ML IV.CONT SCH (15:05)
[2018-03-10] MEDS: Enoxaparin Inj 40 MG/0.4 ML Syringe SQ SCH (15:06)
[2018-03-10] MEDS: Morphine Inj 4 MG/ML Vial IV.PUSH PRN ×3 (15:08→23:02)
[2018-03-10] MEDS: Senna/Docusate Sodium 8.6/50 MG Tablet PO SCH (21:14)
[2018-03-10] MEDS: Zolpidem Tartrate 5 MG Tablet PO PRN (23:07)
[2018-03-11] MEDS: Morphine Inj 4 MG/ML Vial IV.PUSH PRN ×6 (03:02→23:00)
[2018-03-11] MEDS: Sod Chloride 0.9% Inj 1,000 ML IV.CONT SCH ×5 (03:06→23:05)
[2018-03-11 08:08] LABS: Alanine Aminotransferase 13 U/L (10-53); Albumin 3.5 g/dL (3.4-5.0); Alkaline Phosphatase 76 U/L (45-117); Anion Gap 8 meq/L (5-15); Aspartate Aminotransferase 22 U/L (15-37); Blood Urea Nitrogen 2 mg/dL (7-18); Calcium 7.8 mg/dL (8.5-10.1); Carbon Dioxide 25.4 meq/L (21.0-32.0); Chloride 110 meq/L (98-107); Glomerular Filtration Rate Greater Than 89 mL/min (>89); Glucose,Random 93 mg/dL (74-106); Potassium 3.6 meq/L (3.5-5.1); Sodium 143 meq/L (136-145); Total Protein 6.5 g/dL (6.4-8.2)
[2018-03-11] MEDS: Senna/Docusate Sodium 8.6/50 MG Tablet PO SCH ×2 (09:45→21:10)
--- NOTE | 2018-03-11 12:23 | P.PN ---
Subjective Interval history: Follow-up sickle cell crisis March 11, 2018-patient seen and examined, states it hurts all over the place and she is requesting Dilaudid. Vitals remain stable Physical Exam Vital signs: Vital Signs 03/10/18 12:35 03/10/18 17:18 03/10/18 17:55 Temperature 97.5 F L Pulse Rate 80 88 90 Respiratory Rate 15 15 17 Blood Pressure 116/73 125/61 116/73 Pulse Oximetry 99 100 03/10/18 20:00 03/11/18 00:00 03/11/18 03:50 Temperature 98.2 F 98.2 F Pulse Rate 96 H 82 Respiratory Rate 16 15 14 Blood Pressure 117/61 114/60 Pulse Oximetry 100 98 03/11/18 04:00 03/11/18 08:00 Temperature 98.4 F 98.2 F Pulse Rate 83 82 Respiratory Rate 15 20 Blood Pressure 110/60 115/56 L Pulse Oximetry 98 97 Intake & Output 03/10/18 03/11/18 03/11/18 18:59 06:59 18:59 Intake Total 1999 1720 / 1720 Balance 1999 1720 / 1720 Weight 70.4 kg 70.4 kg Intake: IV 1999 1000 / 1000 NS Inj 1,000 ML @ 100 mls/hr IV 1000 / 1000 .CONT .Q10H ALMA DELIA Rx#:[id number] NS Inj 1,000 ML @ Wide Open IV. 1000 / 1000 SIG BOLUS ONE Rx#:[id number] Oral 720 / 720 Other: # Voids 2 Date of Last Bowel Movement 03/10/18 Weight On Admission 70.4 kg Narrative: GENERAL: NAD SKIN: Warm and dry. HEAD: Normocephalic. EYES: No scleral icterus. No injection or drainage. NECK: Supple, trachea midline. No JVD or lymphadenopathy. CARDIOVASCULAR: Regular rate and rhythm without murmurs, gallops, or rubs. RESPIRATORY: Breath sounds equal bilaterally. No accessory muscle use. GASTROINTESTINAL: Abdomen soft, non-tender, nondistended. MUSCULOSKELETAL: No cyanosis, or edema. BACK: Nontender without obvious deformity. No CVA tenderness. Results - Labs CBC & Chem 7: 03/10/18 04:40 03/11/18 06:50 Laboratory Results - last 24 hr 03/10/18 03/11/18 15:15 06:50 Sodium 143 Potassium 3.6 Chloride 110 H Carbon Dioxide 25.4 Anion Gap 8 BUN 2 L Creatinine 0.59 Estimated GFR Greater than 89 Random Glucose 93 Calcium 7.8 L D Total Bilirubin 0.9 AST 22 ALT 13 Alkaline Phosphatase 76 Lactate Dehydrogenase 234 Total Protein 6.5 Albumin 3.5 Assessment and Plan - Assessment (1) Sickle cell crisis Code(s): D57.00 - Hb-SS disease with crisis, unspecified Status: Acute - Plan 27-year-old female with Sickle cell crisis Continue with aggressive IV fluid resuscitation, pain management Monitor LDH, reticulocyte counts Consider hematology consultation if no improvement Drug-Seeking behavior Patient is well known to me, and I will confirm that she is drug-seeking History of sickle cell disease with anemia H&H currently stable and not requiring any blood transfusion, continue to monitor History of asthma No current exacerbation DuoNeb as needed DVT prophylaxis Lovenox
[2018-03-11] MEDS: Enoxaparin Inj 40 MG/0.4 ML Syringe SQ SCH (19:16)
[2018-03-11] MEDS: Zolpidem Tartrate 5 MG Tablet PO PRN (23:01)
[2018-03-12] MEDS: Morphine Inj 4 MG/ML Vial IV.PUSH PRN ×5 (02:55→23:43)
[2018-03-12] MEDS: Sod Chloride 0.9% Inj 1,000 ML IV.CONT SCH ×6 (03:39→19:33)
[2018-03-12] MEDS: Senna/Docusate Sodium 8.6/50 MG Tablet PO SCH ×2 (09:20→23:40)
--- NOTE | 2018-03-12 12:50 | P.PN ---
Subjective Interval history: Follow-up sickle cell crisis March 11, 2018-patient seen and examined, states it hurts all over the place and she is requesting Dilaudid. Vitals remain stable March 12, 2018-patient seen and examined, continued to complain of generalized pain and also reports pain around her former incision site Physical Exam Vital signs: Vital Signs 03/11/18 16:00 03/11/18 20:00 03/11/18 21:24 Temperature 98.1 F 98.3 F Pulse Rate 89 94 H Respiratory Rate 20 18 Blood Pressure 121/64 123/70 Pulse Oximetry 99 100 97 03/12/18 00:00 03/12/18 04:00 03/12/18 08:00 Temperature 98.3 F 98.4 F 98.6 F Pulse Rate 95 H 87 80 Respiratory Rate 18 20 Blood Pressure 118/62 106/59 L 118/81 Pulse Oximetry 100 99 98 03/12/18 11:00 Temperature Pulse Rate Respiratory Rate 18 Blood Pressure Pulse Oximetry Intake & Output 03/11/18 03/12/18 03/12/18 18:59 06:59 18:59 Intake Total 1720 / 1720 1435 / 1435 1000 / 1000 Balance 1720 / 1720 1435 / 1435 1000 / 1000 Weight 70.5 kg Intake: IV 1000 / 1000 1000 / 1000 1000 / 1000 NS Inj 1,000 ML @ 100 mls/hr IV 1000 / 1000 1000 / 1000 1000 / 1000 .CONT .Q10H ALMA DELIA Rx#:[id number] Oral 720 / 720 360 / 360 Oral Supplement 75 / 75 Other: # Voids 3 Date of Last Bowel Movement 03/10/18 03/11/18 03/11/18 Narrative: GENERAL: NAD SKIN: Warm and dry. HEAD: Normocephalic. EYES: No scleral icterus. No injection or drainage. NECK: Supple, trachea midline. No JVD or lymphadenopathy. CARDIOVASCULAR: Regular rate and rhythm without murmurs, gallops, or rubs. RESPIRATORY: Breath sounds equal bilaterally. No accessory muscle use. GASTROINTESTINAL: Abdomen soft, non-tender, nondistended. MUSCULOSKELETAL: No cyanosis, or edema. BACK: Nontender without obvious deformity. No CVA tenderness. Results - Labs CBC & Chem 7: 03/10/18 04:40 03/11/18 06:50 Assessment and Plan - Assessment (1) Sickle cell crisis Code(s): D57.00 - Hb-SS disease with crisis, unspecified Status: Acute - Plan 27-year-old female with Sickle cell crisis Continue with aggressive IV fluid resuscitation, pain management Monitor LDH, reticulocyte counts Consider hematology consultation if no improvement Drug-Seeking behavior Patient was counseled against History of sickle cell disease with anemia H&H currently stable and not requiring any blood transfusion, continue to monitor History of asthma No current exacerbation DuoNeb as needed DVT prophylaxis Lovenox
[2018-03-12] MEDS: Enoxaparin Inj 40 MG/0.4 ML Syringe SQ SCH (15:16)
[2018-03-12] MEDS: Zolpidem Tartrate 5 MG Tablet PO PRN (23:42)
[2018-03-13] MEDS: Morphine Inj 4 MG/ML Vial IV.PUSH PRN ×2 (03:54→08:02)
[2018-03-13] MEDS: Sod Chloride 0.9% Inj 1,000 ML IV.CONT SCH ×2 (05:46→05:47)
[2018-03-13] MEDS: Senna/Docusate Sodium 8.6/50 MG Tablet PO SCH (08:03)
--- NOTE | 2018-03-13 09:29 | P.PN ---
Subjective Interval history: Follow-up sickle cell crisis March 11, 2018-patient seen and examined, states it hurts all over the place and she is requesting Dilaudid. Vitals remain stable March 12, 2018-patient seen and examined, continued to complain of generalized pain and also reports pain around her former incision site March 13, 2028-patient seen and examined, she was very rude and using foul language. Requesting stronger narcotics other than morphine, however patient is being consistently getting morphine. She exhibits strong drug-seeking behavior Physical Exam Vital signs: Vital Signs 03/12/18 11:00 03/12/18 12:00 03/12/18 16:00 Temperature 98.0 F 99.0 F Pulse Rate 83 81 Respiratory Rate 18 20 20 Blood Pressure 125/64 126/76 Pulse Oximetry 97 99 03/12/18 17:58 03/12/18 20:00 03/13/18 00:00 Temperature 98.1 F 98.5 F Pulse Rate 85 73 Respiratory Rate 16 16 Blood Pressure 122/70 112/67 Pulse Oximetry 98 97 98 03/13/18 04:00 03/13/18 08:00 Temperature 98.1 F 98.7 F Pulse Rate 79 84 Respiratory Rate 16 17 Blood Pressure 117/55 L 116/79 Pulse Oximetry 95 99 Intake & Output 03/12/18 03/13/18 03/13/18 18:59 06:59 18:59 Intake Total 1840 / 1840 1720 / 1720 Balance 1840 / 1840 1720 / 1720 Weight 70.1 kg Intake: IV 1000 / 1000 1000 / 1000 NS Inj 1,000 ML @ 100 mls/hr IV 1000 / 1000 1000 / 1000 .CONT .Q10H ALMA DELIA Rx#:[id number] Oral 840 / 840 720 / 720 Other: # Voids 4 3 Date of Last Bowel Movement 03/11/18 03/12/18 # Bowel Movements 1 0 Narrative: GENERAL: NAD SKIN: Warm and dry. HEAD: Normocephalic. EYES: No scleral icterus. No injection or drainage. NECK: Supple, trachea midline. No JVD or lymphadenopathy. CARDIOVASCULAR: Regular rate and rhythm without murmurs, gallops, or rubs. RESPIRATORY: Breath sounds equal bilaterally. No accessory muscle use. GASTROINTESTINAL: Abdomen soft, non-tender, nondistended. MUSCULOSKELETAL: No cyanosis, or edema. BACK: Nontender without obvious deformity. No CVA tenderness. Results - Labs CBC & Chem 7: 03/10/18 04:40 03/11/18 06:50 Assessment and Plan - Assessment (1) Sickle cell crisis Code(s): D57.00 - Hb-SS disease with crisis, unspecified Status: Resolved - Plan 27-year-old female with Sickle cell crisis I doubt at this point that patient is in sickle cell crisis, therefore we will discontinue IV fluid hydration, IV pain narcotics. Patient is drug-seeking She will follow outpatient with her multimedia programmer for further care Drug-Seeking behavior Patient was counseled against History of sickle cell disease with anemia H&H currently stable and not requiring any blood transfusion, continue to monitor History of asthma No current exacerbation DuoNeb as needed DVT prophylaxis Lovenox
--- NOTE | 2018-03-13 09:33 | P.DS ---
Date of admission: 03/10/18 11:38 Primary care physician: UNKNOWN Anticipated date of discharge: 03/13/18 Brief History from admission: This is a 27-year-old female with history of sickle cell crisis, bronchial asthma presenting with generalized body aches mostly in both upper extremities and lower extremities. She also comments of chills, and diarrhea yesterday about 2-3 times, loose, nonbloody, nonmucoid associated with mild stomach pain, nausea and one episode of vomiting. She denies any cough, shortness of breath, chest pain, dysuria, frequency, urgency, numbness, fever, or focal weakness. She has a mild headache. 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 He took her off hydroxyurea a month ago. DS: Diagnosis - Discharge Diagnosis (1) Sickle cell crisis Status: Resolved DS: Medications - Discharge Medications Prescriptions: hydrocodone-acetaminophen 1 tab PO Q4H PRN #12 tab PRN Reason: Pain 1-10 And/Or Fever >101f DS: Summary Hospital Course: While in hospital, patient was treated for Sickle cell crisis Aggressive IV fluid resuscitation with pain management. Monitoring of labs Drug-Seeking behavior Patient was counseled against History of sickle cell disease with anemia H&H currently stable and not requiring any blood transfusion, continue to monitor History of asthma No current exacerbation DuoNeb as needed DVT prophylaxis Lovenox - Time Spent with Patient Total time spent providing and/or coordinating discharge services: Less than 30 minutes - Quality: VTE Deep Vein Thrombosis/Pulmonary Embolism Present on Admission: No Exam Vital signs: Vital Signs 03/12/18 11:00 03/12/18 12:00 03/12/18 16:00 Temperature 98.0 F 99.0 F Pulse Rate 83 81 Respiratory Rate 18 20 20 Blood Pressure 125/64 126/76 Pulse Oximetry 97 99 03/12/18 17:58 03/12/18 20:00 03/13/18 00:00 Temperature 98.1 F 98.5 F Pulse Rate 85 73 Respiratory Rate 16 16 Blood Pressure 122/70 112/67 Pulse Oximetry 98 97 98 03/13/18 04:00 03/13/18 08:00 Temperature 98.1 F 98.7 F Pulse Rate 79 84 Respiratory Rate 16 17 Blood Pressure 117/55 L 116/79 Pulse Oximetry 95 99 Intake & Output 03/12/18 03/13/18 03/13/18 18:59 06:59 18:59 Intake Total 1840 / 1840 1720 / 1720 Balance 1840 / 1840 1720 / 1720 Weight 70.1 kg Intake: IV 1000 / 1000 1000 / 1000 NS Inj 1,000 ML @ 100 mls/hr IV 1000 / 1000 1000 / 1000 .CONT .Q10H ALMA DELIA Rx#:[id number] Oral 840 / 840 720 / 720 Other: # Voids 4 3 Date of Last Bowel Movement 03/11/18 03/12/18 # Bowel Movements 1 0 Narrative: GENERAL: NAD SKIN: Warm and dry. HEAD: Normocephalic. EYES: No scleral icterus. No injection or drainage. NECK: Supple, trachea midline. No JVD or lymphadenopathy. CARDIOVASCULAR: Regular rate and rhythm without murmurs, gallops, or rubs. RESPIRATORY: Breath sounds equal bilaterally. No accessory muscle use. GASTROINTESTINAL: Abdomen soft, non-tender, nondistended. MUSCULOSKELETAL: No cyanosis, or edema. BACK: Nontender without obvious deformity. No CVA tenderness. Results Procedures completed during hospitalization: None Discharge Plan - Discharge Disposition Patient Disposition: 01 Discharge Home - Discharge Condition Condition: Stable - Discharge Order Discharge Orders: Discharge Order (Routine); Ordered 03/13/18 Ordered By: Derik Gutierrez - Physicians Team Primary Care Provider: UNKNOWN, Attending Provider: Derik Gutierrez Other Providers: [employer],Insurance
== END 2018-03-13 10:55 | disposition home or self-care (01) ==
LOC: NEPC 03:24 → NEDA 11:38 → NEDH 16:12 → N04 17:21
PROVIDERS: ADMIT Hospitalist; ATTEND Hospitalist

== ENCOUNTER 2018-05-22 08:31 | Inpatient (IN) ==
[2018-05-22] MEDS ORDERED: HYDROmorphone PF Inj 1 MG/50 ML BAG IV.SIG ONE ×2 (10:08→11:37)
[2018-05-22] MEDS ORDERED: Sod Chloride 0.9% Inj 1,000 ML IV.SIG SCH (10:15)
--- NOTE | 2018-05-22 10:21 | ED ---
HPI General Chief complaint: Sickle Cell Stated complaint: sicke cell complaint/sore throat Time Seen by Provider: 05/22/18 09:47 Source: patient Mode of arrival: ambulatory Limitations: no limitations History of Present Illness HPI narrative: Patient is a 27-year-old female with history of sickle cell disease, presents to the emergency room with complaints of sickle cell crisis. Patient reports that she normally takes Lortab 10 mg for her sickle cell disease , she did take this medication today and was unrelieved with her symptoms. Patient reports that she has pain over her body, reports that she does have some shortness of breath but this is typical of her symptoms as she has a diagnosis of asthma. Patient reports that she has had a nonproductive cough, denies chest pain. Reports that she is also had a sore throat and pain with swallowing. Patient denies any fevers or chills, denies any nausea or vomiting. Patient reports that her symptoms are typical of her normal sickle cell crisis pains. Patient's oncologist Dr. Gamino in [facility] Related Data Home Medications Medication Instructions Recorded Confirmed albuterol sulfate 2 puff INHALATION Q4-6H PRN 03/21/18 05/22/18 folic acid 0.8 mg PO DAILY 03/21/18 05/22/18 hydrocodone-acetaminophen 1 tab PO Q4H PRN 03/21/18 05/22/18 zolpidem [Ambien] 5 mg PO HS 03/21/18 05/22/18 Allergies Allergy/AdvReac Type Severity Reaction Status Date / Time oxycodone Allergy Intermediate itching Verified 05/22/18 09:48 Review of Systems ROS: all other systems reviewed are negative [facility] Medical History Medical History Heart hypertrophy (Acute) Sickle cell anemia with pain (Acute) Asthma (Acute) Surgical History Surgical History History of cholecystectomy (Acute) Social History Social History Substance History: No History of Abuse Second Hand Smoke Exposure: No Smoking Status: Never smoker How Often Do You Have a Drink Containing Alcohol: 2 to 4 times a month Recent Travel in [facility] within the Last 8 Weeks: No Recent Out of Country Travel within the Last 8 Weeks: No Immunization History Tetanus Immunization: Unsure Hx Influenza Vaccine This Season: No Exam Narrative Exam Narrative: GENERAL: mild distress SKIN: Focused skin assessment warm/dry. HEAD: Atraumatic. Normocephalic. EYES: Pupils equal and round. No scleral icterus. No injection or drainage. ENT: No nasal bleeding or discharge. Mucous membranes pink and moist. NECK: Trachea midline. No JVD. MOUTH: patient with airway that is open and patent, she does have some pharyngeal exudates in posterior pharynx, uvula is midline with no swelling CARDIOVASCULAR: Regular rate and rhythm. No murmur appreciated. RESPIRATORY: No accessory muscle use. Clear to auscultation. Breath sounds equal bilaterally. GASTROINTESTINAL: Abdomen soft, non-tender, nondistended. Hepatic and splenic margins not palpable. MUSCULOSKELETAL: No obvious deformities. No clubbing. No cyanosis. No edema. NEUROLOGICAL: Awake and alert. No obvious cranial nerve deficits. Motor grossly within normal limits. Normal speech. PSYCHIATRIC: Appropriate mood and affect; insight and judgment normal. Course Initial Documented Vital Signs Temperature 99.1 F 05/22/18 08:34 Pulse Rate 108 H 05/22/18 08:34 Respiratory Rate 18 05/22/18 08:34 Blood Pressure 135/73 05/22/18 08:34 Pulse Oximetry 96 05/22/18 08:34 Last Documented Vital Signs Temperature 99.1 F 05/22/18 08:34 Pulse Rate 78 05/22/18 11:08 Respiratory Rate 18 05/22/18 11:38 Blood Pressure 119/57 L 05/22/18 11:08 Pulse Oximetry 100 05/22/18 11:08 Medical Decision Making [facility] Narrative Medical decision making narrative: During the course of the patients emergency department visit, the patients history, examination, and differential diagnosis were reviewed with the patient. The patient was placed on a color television console monitor with oximetry and frequent blood pressure monitoring. The patient had an IV access obtained and blood work sent for analysis. The patient was initially provided IVF, IV dilaudid, IV zofran. wbc 20.7, hgb 8.2, hct 24.4, platelets 504 sodium 141, chloride 110, potassium 3.7, bun 7, cr 0.60, glucose 95 retic count was 5.4 rapid strep was neg - patient was given a dose of unasyn as she does appear to have posterior pharynx exudates concerning for strep. She has received her second dose of dilaudid and is not feeling any better - patient will be admitted to the hospital case reviewed with Dr. Heard who accepts pt to service Patient does have SIRS crtieria, bc were ordered as she was given a dose of unasyn for presumed pharyngitis Medical Screen Exam Complete: Yes Emergency Medical Condition: Yes Differential Diagnosis Differential Diagnosis: Strep pharyngitis, sickle cell vaso-occlusive crisis, pneumonia Medical Records Medical records reviewed: Yes I reviewed the patient's medical records. Lab Data Result diagrams: 05/22/18 10:17 05/22/18 10:17 Lab Results 05/22/18 05/22/18 Range/Units 10:17 10:17 WBC 20.7 H (4.0-11.0) th/mm3 RBC 2.86 L (4.00-5.30) mil/mm3 Hgb 8.2 L (11.6-15.3) gm/dL Hct 24.4 L (35.0-46.0) % MCV 85.4 (80.0-100.0) fL MCH 28.7 (27.0-34.0) pg MCHC 33.7 (32.0-36.0) % RDW 15.9 (11.6-17.2) % Plt Count 504 H (150-450) th/mm3 MPV 8.4 (7.0-11.0) fL Neut % (Auto) 79.5 H (16.0-70.0) % Lymph % (Auto) 10.4 (9.0-44.0) % [place] % (Auto) 7.5 (0.0-8.0) % Eos % (Auto) 1.6 (0.0-4.0) % Baso % (Auto) 1.0 (0.0-2.0) % Neut # (Auto) 16.5 H (1.8-7.7) th/mm3 Lymph # (Auto) 2.1 (1.0-4.8) th/mm3 [place] # (Auto) 1.6 H (0.0-0.9) th/mm3 Eos # (Auto) 0.3 (0.0-0.4) th/mm3 Baso # (Auto) 0.2 (0.0-0.2) th/mm3 WBC Differential . Differential Comment Auto diff final Retic Count 5.4 H (0.4-3.0) % Absolute Retic 154.3 H (20.0-150.0) mil/L Sodium 141 (136-145) meq/L Potassium 3.7 (3.5-5.1) meq/L Chloride 110 H (98-107) meq/L Carbon Dioxide 25.3 (21.0-32.0) meq/L Anion Gap 6 (5-15) meq/L BUN 7 (7-18) mg/dL Creatinine 0.60 (0.50-1.00) mg/dL Estimated GFR Greater than 89 (>89) mL/min Random Glucose 95 (74-106) mg/dL Calcium 8.8 (8.5-10.1) mg/dL Total Bilirubin 2.1 H (0.2-1.0) mg/dL AST 38 H (15-37) U/L ALT 18 (10-53) U/L Alkaline Phosphatase 84 (45-117) U/L Total Protein 8.6 H (6.4-8.2) g/dL Albumin 4.1 (3.4-5.0) g/dL Imaging Data Radiologist's impression: Chest X-Ray 05/22/18 10:08 CONCLUSION: Elevation of the right hemidiaphragm with minimal prominence the cardiac silhouette stable from 05/04/2018. Discharge Plan Discharge Disposition Patient Disposition: 30 Still Patient Discharge Condition Condition: Stable Discharge Details Diagnosis: Sickle cell pain crisis Physicians Team ED Provider: Esther Wilson Primary Care Provider: Primary Care Candy Leong Rxs /Orders / Referrals /Forms Prescriptions: No Action hydrocodone-acetaminophen 10-325 mg Tablet 1 tab PO Q4H PRN (Reason: Acute Pain) RF: 0 zolpidem [Ambien] 5 mg Tablet 5 mg PO HS RF: 0 albuterol sulfate 90 mcg/actuation Hfa Aerosol Inhaler 2 puff INHALATION Q4-6H PRN (Reason: Respiratory Distress) RF: 0 folic acid 800 mcg Tablet 0.8 mg PO DAILY RF: 0 Status ED Status: With Doctor
[2018-05-22] MEDS ORDERED: HYDROmorphone PF Inj 1 MG/ML Ampul IV.PUSH ONE (10:33)
[2018-05-22 10:37] LABS: Baso # (Auto) 0.2 th/mm3 (0.0-0.2); Eos # (Auto) 0.3 th/mm3 (0.0-0.4); Eos % (Auto) 1.6 % (0.0-4.0); Hematocrit 24.4 % (35.0-46.0); Hemoglobin 8.2 gm/dL (11.6-15.3); Lymph # (Auto) 2.1 th/mm3 (1.0-4.8); Lymph % (Auto) 10.4 % (9.0-44.0); Mean Corpuscular HGB Conc 33.7 % (32.0-36.0); Mean Corpuscular Hemoglobin 28.7 pg (27.0-34.0); Mean Corpuscular Volume 85.4 fL (80.0-100.0); Mean Platelet Volume 8.4 fL (7.0-11.0); Mono # (Auto) 1.6 th/mm3 (0.0-0.9); Mono % (Auto) 7.5 % (0.0-8.0); Neut # (Auto) 16.5 th/mm3 (1.8-7.7); Neut % (Auto) 79.5 % (16.0-70.0); Platelet Count 504 th/mm3 (150-450); Red Blood Count 2.86 mil/mm3 (4.00-5.30); Red Cell Distribution Width 15.9 % (11.6-17.2); Reticulocyte Percent 5.4 % (0.4-3.0); White Blood Count 20.7 th/mm3 (4.0-11.0)
[2018-05-22] MEDS: Sod Chloride 0.9% Inj 1,000 ML IV.SIG SCH (10:42)
[2018-05-22 10:50] LABS: Albumin 4.1 g/dL (3.4-5.0); Anion Gap 6 meq/L (5-15); Aspartate Aminotransferase 38 U/L (15-37); Blood Urea Nitrogen 7 mg/dL (7-18); Calcium 8.8 mg/dL (8.5-10.1); Carbon Dioxide 25.3 meq/L (21.0-32.0); Chloride 110 meq/L (98-107); Glomerular Filtration Rate Greater Than 89 mL/min (>89); Glucose,Random 95 mg/dL (74-106); Potassium 3.7 meq/L (3.5-5.1); Sodium 141 meq/L (136-145)
[2018-05-22 10:53] LABS: Alanine Aminotransferase 18 U/L (10-53); Alkaline Phosphatase 84 U/L (45-117); Total Protein 8.6 g/dL (6.4-8.2)
--- NOTE | 2018-05-22 11:04 | XR ---
EXAM DATE: 05/22/2018 10:59 AM EDT AGE/SEX: 27 years / Female INDICATIONS: Shortness of breath. CLINICAL DATA: This is the patient's initial encounter. Patient reports that signs and symptoms have been present for 2 days and indicates a pain score of 0/10. MEDICAL/SURGICAL HISTORY: Sickle Cell disease. Asthma. . Port. COMPARISON: [facility], CHEST 1V SINGLE AP, 05/04/2018. . FINDINGS: Liptpy-z-Doee in good position. The heart is minimally enlarged. There is minimal elevation of the ri ght hemidiaphragm. The left lung is clear. The portion of the bony skeleton visualized is unremarkable. CONCLUSION: Elevation of the right hemidiaphragm with minimal prominence the cardiac silhouette stable from 018. Electronically signed by: Madi Diego MD 05/22/2018 11:02 AM EDT
[2018-05-22] MEDS ORDERED: Dexamethasone Inj 20 MG/5 ML Vial IV.PUSH ONE (11:38)
[2018-05-22] MEDS ORDERED: Ampicillin/Sulbactam Inj 3 GM in Sodium Chloride 0.9% Inj 100 ML IV.SIG ONE (11:38)
[2018-05-22] MEDS ORDERED: Acetaminophen 325 MG Tablet PO PRN (13:22)
[2018-05-22] MEDS ORDERED: Bisacodyl 10 MG Supp RECTAL PRN (13:22)
[2018-05-22] MEDS: Sod Chloride 0.9% Inj 1,000 ML IV.CONT SCH ×2 (14:25→23:07)
[2018-05-22] MEDS ORDERED: HYDROmorphone PF Inj 0.5 MG/0.5 ML Syringe IV.PUSH PRN ×2 (14:31→14:45)
--- NOTE | 2018-05-22 14:45 | P.HP ---
History of Present Illness Primary Care Physician: No Primary Care Physician Chief Complaint: Sore throat, generalized pains in joints and muscles History of Present Illness: Patient is a 27-year-old female with history of sickle cell disease, presents to the emergency room with complaints of sickle cell crisis. Patient reports that she normally takes Lortab 10 mg for her sickle cell disease, she did take this medication today and was unrelieved with her symptoms. Patient reports that she has pain over her body, reports that she does have some shortness of breath but this is typical of her symptoms as she has a diagnosis of asthma. Patient reports that she has had a nonproductive cough, denies chest pain. Reports that she is also had a sore throat and pain with swallowing and not able to eat much due to pain. Patient denies any fevers or chills, denies any nausea or vomiting. Patient reports that her symptoms are typical of her normal sickle cell crisis pains. No urinary complaints. No chest pain or palpitations or shortness of breath. She is saturating well on room air. Patient's oncologist is Dr. Gamino in [facility] Inpatient Certification: I certify that the inpatient services were ordered in accordance with Medicare regulations governing the order. This includes certification that hospital inpatient services are reasonable and necessary and in the case of services not specified as inpatient-only under 42 CFR 419.22(n), that they are appropriately provided as inpatient services in accordance to with the 2-midnight benchmark under 43 CFR 412.3(e) Estimated Total Length of Stay (Days): 5 Plans for Post Hospital Care: Home Review of Systems All other systems reviewed negative except as stated in HPI [facility] - History History Provided By: Patient - Medical History Medical History: Medical History (Last Reviewed 05/22/18 @ 14:43 by Dipika Heard MD) Heart hypertrophy (Acute) Sickle cell anemia with pain (Acute) Asthma (Acute) - Surgical History Surgical History: Surgical History (Last Reviewed 05/22/18 @ 14:43 by Dipika Heard MD) History of cholecystectomy (Acute) - Family History Family History: Family History (Last Updated 05/22/18 @ 14:43 by Dipika Heard MD) Other No pertinent family history - Tobacco History Second Hand Smoke Exposure: No Smoking Status: Never smoker - Alcohol History How Often Do You Have a Drink Containing Alcohol: 2 to 4 times a month - Substance Use History Substance History: No History of Abuse - Travel History Recent Travel in the [place] Within the Last 8 Weeks: No Recent Travel Out of the Country Within the Last 8 Weeks: No - Immunization History Tetanus Immunization: Unsure Hx Influenza Vaccine This Season: No Medications and Allergies Active Medications: Active Medications Acetaminophen (Tylenol) 650 mg PO Q4H PRN PRN Reason: Temp > 100.4 Hydrocodone Bitart/Acetaminophen ([place] 10/325) 1 tab PO Q4H PRN PRN Reason: Acute Pain Al Hydroxide/Mg Hydroxide (Milk Of Magnesia Liq) 30 ml PO Q12H PRN PRN Reason: Mild Constipation Albuterol (Ventolin Hfa Inh) 2 puff INH Q4-6H PRN PRN Reason: sob/wheezing Bisacodyl (Dulcolax Supp) 10 mg RECTAL DAILY PRN PRN Reason: SEVERE CONSITIPATION Diphenhydramine HCl (Benadryl Inj) 25 mg IV.PUSH Q6H PRN PRN Reason: pruritus Hydromorphone HCl (Dilaudid Pf Inj) 0.5 mg IV.PUSH Q4H PRN PRN Reason: pain 2-10 Sodium Chloride (Ns Inj) 1,000 mls @ 0 mls/hr IV.SIG BOLUS [place]MA DELIA Last Infusion: 05/22/18 11:38 Dose: Infused Ampicillin Sodium/Sulbactam (Sodium 3 gm/ Sodium Chloride) 100 mls @ 200 mls/ hr IV.SIG Q6H [facility] Sodium Chloride (Ns Inj) 1,000 mls @ 100 mls/hr IV.CONT .Q10H [facility] DELIA Last Admin: 05/22/18 14:25 Dose: 100 mls/hr Lactulose (Lactulose Liq) 30 ml PO DAILY PRN PRN Reason: SEVERE CONSITIPATION Methylprednisolone Sodium Succinate (Solumedrol Inj) 40 mg IV.PUSH DAILY [facility] Non-Formulary Medication (Folic Acid [Folic Acid]) 0.8 mg PO DAILY [facility]IA Senna/Docusate Sodium (Malissa-Colace) 1 tab PO BID [facility] Sennosides (Senokot) 17.2 mg PO Q12H PRN PRN Reason: Moderate Constipation Sodium Chloride (Ns Flush) 2 ml IV.FLUSH PRN PRN PRN Reason: FLUSH AFTER USING IV ACCESS Zolpidem Tartrate (Ambien) 5 mg PO HS [facility] Allergies Allergy/AdvReac Type Severity Reaction Status Date / Time oxycodone Allergy Intermediate itching Verified 05/22/18 09:48 Home Medications Medication Instructions Recorded Confirmed Type albuterol sulfate 2 puff INHALATION Q4-6H PRN 03/21/18 05/22/18 History folic acid 0.8 mg PO DAILY 03/21/18 05/22/18 History hydrocodone-acetaminophen 1 tab PO Q4H PRN 03/21/18 05/22/18 History zolpidem [Ambien] 5 mg PO HS 03/21/18 05/22/18 History Exam Vital signs: Vital Signs 05/22/18 08:34 05/22/18 11:08 05/22/18 11:38 Temperature 99.1 F Pulse Rate 108 H 78 Respiratory Rate 18 20 18 Blood Pressure 135/73 119/57 L Pulse Oximetry 96 100 Intake & Output 05/21/18 05/22/18 05/22/18 18:59 06:59 18:59 Intake Total 2149 Balance 2149 Weight 63.503 kg Intake: IV 2149 Unasyn Inj 3 GM In NS Inj 100 100 / 100 ML @ 200 mls/hr IV.SIG ONCE ONE Rx#:[id number] Dilaudid Inj 1 mg In 50 ml @ 50 / 50 100 mls/hr IV.SIG ONCE ONE Rx#: [id number] NS Inj 1,000 ML @ Wide Open IV. 1999 SIG BOLUS ALMA DELIA Rx#:[id number] Narrative: GENERAL: Pleasant 27 yo F, in bed appears in pain. SKIN: Warm and dry. HEAD: Atraumatic. Normocephalic. EYES: Pupils equal and round. No scleral icterus. No injection or drainage. ENT: No nasal bleeding or discharge. Mucous membranes pink and moist. NECK: Trachea midline. No JVD. Erythematous and edematous right > left tonsil. CARDIOVASCULAR: Regular rate and rhythm. RESPIRATORY: No accessory muscle use. Clear to auscultation. Breath sounds equal bilaterally. GASTROINTESTINAL: Abdomen soft, non-tender, nondistended. Hepatic and splenic margins not palpable. MUSCULOSKELETAL: Extremities without clubbing, cyanosis, or edema. No obvious deformities. NEUROLOGICAL: Awake and alert. No obvious cranial nerve deficits. Motor grossly within normal limits. Five out of 5 muscle strength in the arms and legs. Normal speech. PSYCHIATRIC: Appropriate mood and affect; insight and judgment normal. Results - Labs CBC & Chem 7: 05/22/18 10:17 05/22/18 10:17 Labs: Laboratory Results - last 24 hr 05/22/18 05/22/18 05/22/18 10:17 10:17 12:57 WBC 20.7 H RBC 2.86 L Hgb 8.2 L Hct 24.4 L MCV 85.4 MCH 28.7 MCHC 33.7 RDW 15.9 Plt Count 504 H MPV 8.4 Neut % (Auto) 79.5 H Lymph % (Auto) 10.4 [place] % (Auto) 7.5 Eos % (Auto) 1.6 Baso % (Auto) 1.0 Neut # (Auto) 16.5 H Lymph # (Auto) 2.1 [place] # (Auto) 1.6 H Eos # (Auto) 0.3 Baso # (Auto) 0.2 WBC Differential . Differential Comment Auto diff final Retic Count 5.4 H Absolute Retic 154.3 H Sodium 141 Potassium 3.7 Chloride 110 H Carbon Dioxide 25.3 Anion Gap 6 BUN 7 Creatinine 0.60 Estimated GFR Greater than 89 Random Glucose 95 Lactic Acid 0.5 Calcium 8.8 Total Bilirubin 2.1 H AST 38 H ALT 18 Alkaline Phosphatase 84 Total Protein 8.6 H Albumin 4.1 - Imaging Impressions Chest X-Ray 05/22/18 10:08 CONCLUSION: Elevation of the right hemidiaphragm with minimal prominence the cardiac silhouette stable from 05/04/2018. Caprini VTE Risk Assessment Caprini VTE Risk Assessment: No/Low Risk (score <= 1) Caprini Risk Assessment Model: Point Value = 1 Point Value = 2 Point Value = 3 Point Value = 5 Age 41-60 Minor surgery BMI > 25 kg/m2 Swollen legs Varicose veins or History of unexplained or recurrent spontaneous Oral contraceptives or hormone replacement Sepsis (< 1 month) Serious lung disease, including pneumonia (< 1 month) Abnormal pulmonary function Acute myocardial infarction Congestive heart failure (< 1 month) History of inflammatory bowel disease Medical patient at bed rest Age 61-74 Arthroscopic surgery Major open surgery (> 45 min) Laparoscopic surgery (> 45 min) Malignancy Confined to bed (> 72 hours) Immobilizing plaster cast Central venous access Age >= 75 History of VTE Family history of VTE Factor V Leiden Prothrombin [id number] Lupus anticoagulant Anticardiolipin antibodies Elevated serum homocysteine Heparin-induced thrombocytopenia Other congenital or acquired thrombophilia Stroke (< 1 month) Elective arthroplasty Hip, pelvis, or leg fracture Acute spinal cord injury (< 1 month) Prophylaxis Regimen: Total Risk Factor Score Risk Level Prophylaxis Regimen 0-1 Low Early ambulation 2 Moderate Order ONE of the following: *Sequential Compression Device (SCD) *Heparin 5000 units SQ BID 3-4 Higher Order ONE of the following medications: *Heparin 5000 units SQ TID *Enoxaparin/Lovenox 40 mg SQ daily (WT < 150 kg, CrCl > 30 mL/min) *Enoxaparin/Lovenox 30 mg SQ daily (WT < 150 kg, CrCl > 10-29 mL/min) *Enoxaparin/Lovenox 30 mg SQ BID (WT < 150 kg, CrCl > 30 mL/min) AND/OR *Sequential Compression Device (SCD) 5 or more Highest Order ONE of the following medications: *Heparin 5000 units SQ TID (Preferred with Epidurals) *Enoxaparin/Lovenox 40 mg SQ daily (WT < 150 kg, CrCl > 30 mL/min) *Enoxaparin/Lovenox 30 mg SQ daily (WT < 150 kg, CrCl > 10-29 mL/min) *Enoxaparin/Lovenox 30 mg SQ BID (WT < 150 kg, CrCl > 30 mL/min) AND *Sequential Compression Device (SCD) Assessment and Plan - Plan Sickle cell crisis SEPSIS criteria on admission leukocytosis, tachycardia, presumed pharyngitis rapid strep was neg - patient was given a dose of unasyn as she does appear to have posterior pharynx exudates concerning for strep. Blood cultures pending Continue IV antibiotics Unasyn for presumed pharyngitis Patient has sore throat with swallowing and cannot take much p.o. Dilaudid IV for pain management Benadryl IV for itching Antiemetics as needed IV fluids Diet as tolerates We will order a reticulocyte count and LDH monitor. Consider hematology oncology consultation if does not improve So far hemoglobin is stable continue to monitor DVT prophylaxis with SCDs/teds/ambulation. Monitor H&H
[2018-05-22 15:22] LABS: Bilirubin,Urine Negative (Negative); Clarity,Urine Clear (Clear); Color,Urine Yellow (Yellw/Straw); Glucose,Urine (UA) Negative (Negative); Leukocyte Esterase,Urine Negative (Negative); Nitrite,Urine Negative (Negative); Squamous Epithelial Cell,Urine 3 /hpf (0-5)
[2018-05-22] MEDS: MethylPREDNISolone Sod Succinate Inj 40 MG/ML Vial IV.PUSH SCH (16:20)
[2018-05-22] MEDS: Ampicillin/Sulbactam Inj 3 GM in Sodium Chloride 0.9% Inj 100 ML IV.SIG SCH ×2 (16:20→21:01)
[2018-05-22] MEDS: HYDROmorphone PF Inj 2 MG/ML Vial IV.PUSH PRN ×2 (16:49→20:56)
[2018-05-22] MEDS: Zolpidem Tartrate 5 MG Tablet PO SCH (20:56)
[2018-05-22] MEDS: Senna/Docusate Sodium 8.6/50 MG Tablet PO SCH (20:56)
[2018-05-23] MEDS: HYDROmorphone PF Inj 2 MG/ML Vial IV.PUSH PRN ×6 (00:52→20:58)
[2018-05-23] MEDS: Ampicillin/Sulbactam Inj 3 GM in Sodium Chloride 0.9% Inj 100 ML IV.SIG SCH ×4 (05:01→21:00)
[2018-05-23 06:16] LABS: Baso # (Auto) 0.1 th/mm3 (0.0-0.2); Baso % (Auto) 0.3 % (0.0-2.0); Lymph # (Auto) 1.8 th/mm3 (1.0-4.8); Mean Corpuscular HGB Conc 34.5 % (32.0-36.0); Mean Corpuscular Volume 84.1 fL (80.0-100.0); Mean Platelet Volume 8.2 fL (7.0-11.0); Mono # (Auto) 1.4 th/mm3 (0.0-0.9); Neut # (Auto) 16.5 th/mm3 (1.8-7.7); Neut % (Auto) 83.7 % (16.0-70.0); Platelet Count 409 th/mm3 (150-450); Red Blood Count 2.27 mil/mm3 (4.00-5.30); Red Cell Distribution Width 15.6 % (11.6-17.2); Reticulocyte Percent 4.9 % (0.4-3.0); White Blood Count 19.7 th/mm3 (4.0-11.0)
[2018-05-23 06:25] LABS: Hematocrit 19.1 % (35.0-46.0); Hemoglobin 6.6 gm/dL (11.6-15.3)
[2018-05-23 06:26] LABS: Albumin 3.5 g/dL (3.4-5.0); Anion Gap 6 meq/L (5-15); Aspartate Aminotransferase 41 U/L (15-37); Blood Urea Nitrogen 8 mg/dL (7-18); Calcium 8.2 mg/dL (8.5-10.1); Carbon Dioxide 23.3 meq/L (21.0-32.0); Chloride 110 meq/L (98-107); Glomerular Filtration Rate Greater Than 89 mL/min (>89); Glucose,Random 113 mg/dL (74-106); Potassium 3.8 meq/L (3.5-5.1); Sodium 139 meq/L (136-145)
[2018-05-23 06:27] LABS: Alanine Aminotransferase 20 U/L (10-53); Lactate Dehydrogenase 280 U/L (84-246)
[2018-05-23 06:29] LABS: Alkaline Phosphatase 70 U/L (45-117); Total Protein 7.5 g/dL (6.4-8.2)
[2018-05-23] MEDS ORDERED: Acetaminophen 325 MG Tablet PO PRN (06:36)
[2018-05-23] MEDS ORDERED: Sodium Chlor 0.9% Inj 250 ML IV.SIG SCH (07:00)
[2018-05-23] MEDS: MethylPREDNISolone Sod Succinate Inj 40 MG/ML Vial IV.PUSH SCH (08:57)
[2018-05-23 09:29] LABS: Sickle Cells 1+; Target Cells 1+
[2018-05-23] MEDS: Senna/Docusate Sodium 8.6/50 MG Tablet PO SCH ×2 (09:43→20:59)
[2018-05-23] MEDS: Sod Chloride 0.9% Inj 1,000 ML IV.CONT SCH ×2 (11:45→17:05)
--- NOTE | 2018-05-23 17:03 | P.PNIM ---
Subjective Interval history: Patient complains of pain all over her body, most of the pain is in her joints. Physical Exam Vital signs: Vital Signs 05/22/18 20:00 05/23/18 00:00 05/23/18 04:00 Temperature 98.6 F 98.5 F 98.1 F Pulse Rate 97 H 90 87 Respiratory Rate 20 20 20 Blood Pressure 127/78 112/66 115/66 Pulse Oximetry 97 94 L 99 05/23/18 08:00 05/23/18 12:47 05/23/18 12:58 Temperature 98.9 F 98.2 F 98.6 F Pulse Rate 80 95 H 90 Respiratory Rate 20 20 19 Blood Pressure 111/58 L 116/61 124/72 Pulse Oximetry 95 98 Intake & Output 05/22/18 05/23/18 05/23/18 18:59 06:59 18:59 Intake Total 2250 / 2250 1820 / 1820 100 / 100 Balance 2250 / 2250 1820 / 1820 100 / 100 Weight 69.1 kg 72.5 kg Intake: IV 2250 / 2250 1700 / 1700 100 / 100 NS Inj 1,000 ML @ 100 mls/hr IV 1500 / 1500 .CONT .Q10H [facility] Rx#:[id number] Unasyn Inj 3 GM In NS Inj 100 200 / 200 200 / 200 100 / 100 ML @ 200 mls/hr IV.SIG Q6H [facility] Rx#:[id number] Dilaudid Inj 1 mg In 50 ml @ 50 / 50 100 mls/hr IV.SIG ONCE ONE Rx#: [id number] NS Inj 1,000 ML @ Wide Open IV. 1999 SIG BOLUS ALMA DELIA Rx#:[id number] Oral 120 / 120 Intake (Blood Product) Amt 0 / 0 Rbc As-3 Leukoreduced Unit 0 / 0 [id number] Other: # Voids 2 Weight On Admission 69.1 kg Narrative: General patient complains of pain all over her body. Most of the pain is in her joints. She denies having any chest pain, no shortness of breath HEENT extraocular movements are intact, clear oropharyngeal mucosa, no JVD Cardiovascular S1-S2 audible, RRR, no murmurs rubs or gallops Respiratory clear to auscultation bilaterally Abdomen soft, nontender, nondistended, normal bowel sounds Extremities no edema 2+ distal pulses in bilateral upper and lower extremities, complains of pain in the joints. Neuro patient moves all 4 extremities. Sensation is intact bilaterally. Results - Labs CBC & Chem 7: 05/23/18 05:45 05/23/18 05:45 Laboratory Results - last 24 hr 05/23/18 05/23/18 05/23/18 05:45 05:45 05:45 WBC 19.7 H RBC 2.27 L Hgb 6.6 L* Hct 19.1 L* MCV 84.1 MCH 29.0 MCHC 34.5 RDW 15.6 Plt Count 409 MPV 8.2 Prelim Diff (Auto) Slide review pending Neut % (Auto) 83.7 H Lymph % (Auto) 9.0 [place] % (Auto) 7.0 Eos % (Auto) 0.0 Baso % (Auto) 0.3 Neut # (Auto) 16.5 H Lymph # (Auto) 1.8 [place] # (Auto) 1.4 H Eos # (Auto) 0.0 Baso # (Auto) 0.1 WBC Differential . Diff Scan Auto diff confirmed Differential Comment . Sickle Cells 1+ H Target Cells 1+ H Retic Count 4.9 H Cancelled Absolute Retic 110.9 Cancelled Sodium 139 Potassium 3.8 Chloride 110 H Carbon Dioxide 23.3 Anion Gap 6 BUN 8 Creatinine 0.65 Estimated GFR Greater than 89 Random Glucose 113 H Calcium 8.2 L Total Bilirubin 2.0 H AST 41 H ALT 20 Alkaline Phosphatase 70 Lactate Dehydrogenase 280 H Total Protein 7.5 D Albumin 3.5 D Blood Type Blood Type Recheck Antibody Screen MTS Gel Crossmatch 05/23/18 05/23/18 09:30 09:30 WBC RBC Hgb Hct MCV MCH MCHC RDW Plt Count MPV Prelim Diff (Auto) Neut % (Auto) Lymph % (Auto) [place] % (Auto) Eos % (Auto) Baso % (Auto) Neut # (Auto) Lymph # (Auto) [place] # (Auto) Eos # (Auto) Baso # (Auto) WBC Differential Diff Scan Differential Comment Sickle Cells Target Cells Retic Count Absolute Retic Sodium Potassium Chloride Carbon Dioxide Anion Gap BUN Creatinine Estimated GFR Random Glucose Calcium Total Bilirubin AST ALT Alkaline Phosphatase Lactate Dehydrogenase Total Protein Albumin Blood Type AB Positive Cancelled Blood Type Recheck Cancelled Antibody Screen Negative Cancelled MTS Gel Crossmatch See Detail Microbiology 05/22/18 10:17 Throat Group A Streptococcus Screen/Cult - Preliminary No Beta Streptococci isolated at 24 hours 05/22/18 12:50 Blood - Peripheral Aerobic Blood Culture - Preliminary No growth in 1 day 05/22/18 12:50 Blood - Peripheral Anaerobic Blood Culture - Preliminary No growth in 1 day 05/22/18 12:53 Blood - Peripheral Aerobic Blood Culture - Preliminary No growth in 1 day 05/22/18 12:53 Blood - Peripheral Anaerobic Blood Culture - Preliminary No growth in 1 day Assessment and Plan - Plan Patient is a 27-year-old female with history of sickle cell disease, presents to the emergency room with complaints of sickle cell crisis. Patient reports that she normally takes Lortab 10 mg for her sickle cell disease, she did take this medication today and was unrelieved with her symptoms. Patient reports that she has pain over her body, reports that she does have some shortness of breath but this is typical of her symptoms as she has a diagnosis of asthma. She reported that she has approximately 4-5 sickle cell crisis per year and follows up with Dr. Gamino in [place] who is her heme oncologist. She complains of a sore throat. 1. Acute sickle cell pain crisis. The patient complains of a sore throat, she denies any chest pain, no shortness of breath. No dysuria. She complains of pain all over her body, especially in the joints. Continue IV fluids She has remained afebrile however has an elevated WBC count of 19,000. Continue IV antibiotics. At this time there is no clear source of infection, chest x-ray is negative, urinalysis is not consistent with UTI. Increase Dilaudid dose to 2 mg IV every 4 hours as needed for severe pain. Continue [place] 10/325 p.o. the patient's pain medication regimen will be adjusted as needed. Benadryl as needed for pruritus. She will be placed on supplemental oxygen Incentive spirometry Continue folic acid Heme oncology has been consulted to evaluate the patient. Follow-up recommendations from heme oncology. 2. Acute symptomatic anemia secondary to acute sickle cell crisis Hemoglobin this morning was 6.6, down from 8.2 yesterday. She was transfused 1 unit PRBC. Will follow up with an a.m. CBC and if her hemoglobin is below 7 she will be transfused another unit PRBC. Heme oncology has been consulted. Will follow up with him oncology for further recommendations. Patient was placed on Lovenox for DVT prophylaxis.
[2018-05-23] MEDS: Zolpidem Tartrate 5 MG Tablet PO SCH (20:58)
[2018-05-24] MEDS: Sod Chloride 0.9% Inj 1,000 ML IV.SIG SCH (00:59)
[2018-05-24] MEDS: HYDROmorphone PF Inj 2 MG/ML Vial IV.PUSH PRN ×6 (00:59→21:05)
[2018-05-24] MEDS: Sod Chloride 0.9% Inj 1,000 ML IV.CONT SCH ×5 (01:01→21:10)
--- NOTE | 2018-05-24 02:22 | MB ---
cc: Benny Nova MD DATE: 05/23/2018 REASON FOR CONSULTATION: Consult requested by hospitalist for evaluation of sickle cell painful crisis. HISTORY OF PRESENT ILLNESS: Marce is a 27-year-old female. She has a history of sickle cell painful crisis on multiple occasions. She is currently under the care of nuclear fuel processing technician, Dr. Gamino at [facility]. The patient came into the emergency room after she was complaining of sore throat. She noticed that she was having a painful crisis. She was having pain throughout the body. She took the Lortab 10 mg, but her pain did not subsided; therefore, she decided to come to the emergency room. In the emergency room, the patient clearly appeared to be quite ill and she is now admitted to the hospital. I have been asked to see her for further evaluation. The patient has been complaining of generalized pain. Her hemoglobin is 6.6. She is getting 1 unit of blood transfusion today. Her bilirubin is high at 2.0. Her AST is 41. LDH is 280. Creatinine is normal. She had a chest x-ray, which showed elevation of the right hemidiaphragm with minimal prominence of the cardiac silhouette. No pneumonia noted. There is no infiltrate noted. The patient does not have a fever. However, she has a sore throat and it is difficult for her to talk. The rest of the review of systems is negative. PAST MEDICAL HISTORY: Sickle cell disease with multiple painful crisis, asthma, cardiomyopathy. PAST SURGICAL HISTORY: Cholecystectomy. ALLERGIES: OXYCODONE. MEDICATIONS PRIOR TO COMING TO HOSPITAL: Albuterol, folic acid, Lortab and Ambien. FAMILY HISTORY: Significant for sickle cell disease. SOCIAL HISTORY: The patient does not smoke cigarettes. She occasionally drinks alcohol. PHYSICAL EXAMINATION: GENERAL: She is a well-developed female in mild to moderate distress from sickle cell painful crisis VITAL SIGNS: Temperature 98.1, heart rate is 69, blood pressure 147/72, O2 saturation 97%. HEENT: PERRLA. EOMI, anicteric. No oral lesions noted. NECK: No lymphadenopathy noted. LUNGS: Clear. No wheezing, rhonchi or rales. HEART: Regular rate and rhythm. ABDOMEN: Soft, nontender. EXTREMITIES: No pedal edema. NEUROLOGIC: Awake, alert and oriented x3. SKIN: No significant lesions are noted. ASSESSMENT: 1. Sickle cell disease. 2. Sickle cell painful crisis. 3. Severe anemia. PLAN: I have reviewed her available records. The patient is getting hydration, antibiotic, oxygen and folic acid for the sickle cell painful crisis. She does not have any evidence of acute chest syndrome. Chest x-ray does not show any infiltrate. She is not hypoxic. Her O2 saturation is 97% on room air. My recommendation is to continue the present treatment plan. Further recommendations based on her hospital stay. Thank you for asking my opinion. MD JAYSHREE Juarez/miguel , 12:24 AM , 12:35 AM
[2018-05-24] MEDS: Ampicillin/Sulbactam Inj 3 GM in Sodium Chloride 0.9% Inj 100 ML IV.SIG SCH ×4 (05:03→21:09)
[2018-05-24 05:34] LABS: Baso # (Auto) 0.2 th/mm3 (0.0-0.2); Baso % (Auto) 0.7 % (0.0-2.0); Eos # (Auto) 0.1 th/mm3 (0.0-0.4); Eos % (Auto) 0.5 % (0.0-4.0); Hematocrit 22.2 % (35.0-46.0); Hemoglobin 7.5 gm/dL (11.6-15.3); Lymph # (Auto) 6.5 th/mm3 (1.0-4.8); Lymph % (Auto) 23.9 % (9.0-44.0); Mean Corpuscular HGB Conc 34.1 % (32.0-36.0); Mean Corpuscular Hemoglobin 28.5 pg (27.0-34.0); Mean Corpuscular Volume 83.7 fL (80.0-100.0); Mean Platelet Volume 8.2 fL (7.0-11.0); Mono # (Auto) 3.2 th/mm3 (0.0-0.9); Mono % (Auto) 11.6 % (0.0-8.0); Neut # (Auto) 17.2 th/mm3 (1.8-7.7); Neut % (Auto) 63.3 % (16.0-70.0); Platelet Count 403 th/mm3 (150-450); Red Blood Count 2.65 mil/mm3 (4.00-5.30); Red Cell Distribution Width 16.6 % (11.6-17.2); White Blood Count 27.2 th/mm3 (4.0-11.0)
[2018-05-24 05:45] LABS: Reticulocyte Percent 4.9 % (0.4-3.0)
[2018-05-24 07:07] LABS: Eosinophils 1 % (0-4); Lymphocytes 28 % (9-44); Monocytes 4 % (0-8); Sickle Cells 1+; Target Cells 1+
[2018-05-24 07:08] LABS: Howell-Jolly Bodies Present; Platelet Estimate Normal (Normal); Platelet Morphology Normal (Normal)
[2018-05-24] MEDS: MethylPREDNISolone Sod Succinate Inj 40 MG/ML Vial IV.PUSH SCH (08:58)
[2018-05-24] MEDS: Folic Acid 1 MG Tablet PO SCH (08:58)
[2018-05-24] MEDS: Senna/Docusate Sodium 8.6/50 MG Tablet PO SCH ×2 (08:58→21:08)
[2018-05-24] MEDS: Enoxaparin Inj 40 MG/0.4 ML Syringe SQ SCH (08:59)
--- NOTE | 2018-05-24 11:26 | P.PNIM ---
Subjective Interval history: Patient reports continued pain all over. Generalized weakness. Physical Exam Vital signs: Vital Signs 05/23/18 12:47 05/23/18 12:58 05/23/18 16:00 Temperature 98.2 F 98.6 F 98.2 F Pulse Rate 95 H 90 71 Respiratory Rate 20 19 20 Blood Pressure 116/61 124/72 120/63 Pulse Oximetry 98 95 05/23/18 20:00 05/24/18 00:00 05/24/18 04:00 Temperature 98.1 F 98.1 F 98.1 F Pulse Rate 69 91 H 74 Respiratory Rate 18 16 18 Blood Pressure 147/72 H 136/75 122/59 L Pulse Oximetry 97 98 90 L 05/24/18 08:00 Temperature 98.2 F Pulse Rate 63 Respiratory Rate 18 Blood Pressure 133/63 Pulse Oximetry 96 Intake & Output 05/23/18 05/24/18 05/24/18 18:59 06:59 18:59 Intake Total 1660 / 1660 4510 / 4510 1350 / 1350 Output Total 1100 / 1100 Balance 1660 / 1660 3410 / 3410 1350 / 1350 Weight 76.6 kg Intake: IV 700 / 700 2300 / 2300 1350 / 1350 NS Inj 1,000 ML @ 150 mls/hr IV 600 / 600 1750 / 1750 250 / 250 .CONT .Q6H40M ALMA DELIA Rx#:[id number] Unasyn Inj 3 GM In NS Inj 100 100 / 100 300 / 300 100 / 100 ML @ 200 mls/hr IV.SIG Q6H ALMA DELIA Rx#:[id number] NS Inj 1,000 ML @ Wide Open IV. 1000 / 1000 SIG BOLUS ALMA DELIA Rx#:[id number] NS Inj 250 ML @ 15 mls/hr IV. 250 / 250 SIG ONCE ALMA DELIA Rx#:[id number] Oral 960 / 960 2210 / 2210 Intake (Blood Product) Amt 0 / 0 Rbc As-3 Leukoreduced Unit 0 / 0 [id number] Output: Urine 1100 / 1100 Other: # Voids 6 # Bowel Movements 0 Narrative: GENERAL: No apparent distress. CARDIOVASCULAR: Normal rate and regular rhythm without murmurs, gallops, or rubs. RESPIRATORY: Good respiratory efforts. Breath sounds equal and clear to auscultation bilaterally. GASTROINTESTINAL: Abdomen soft, non-tender, non-distended. Normal active bowel sounds MUSCULOSKELETAL: Extremities without cyanosis, or edema. NEURO: Alert & Oriented x4 to person, place, time, situation. Moves all ext x4 PSYCH: Appropriate mood and affect. Results - Labs CBC & Chem 7: 05/24/18 05:20 05/23/18 05:45 Laboratory Results - last 24 hr 05/23/18 05/24/18 05/24/18 09:30 05:20 05:20 WBC 27.2 H RBC 2.65 L Hgb 7.5 L Hct 22.2 L MCV 83.7 MCH 28.5 MCHC 34.1 RDW 16.6 Plt Count 403 MPV 8.2 Prelim Diff (Auto) Slide review pending Neut % (Auto) 63.3 Lymph % (Auto) 23.9 [place] % (Auto) 11.6 H Eos % (Auto) 0.5 Baso % (Auto) 0.7 Neut # (Auto) 17.2 H Lymph # (Auto) 6.5 H [place] # (Auto) 3.2 H Eos # (Auto) 0.1 Baso # (Auto) 0.2 WBC Differential Manual diff final Seg Neuts % (Manual) 66 Lymphocytes % (Manual) 28 Monocytes % (Manual) 4 Eosinophils % (Manual) 1 Basophils % (Manual) 1 Abs Neuts (Manual) 18.0 H Differential Comment . Platelet Estimate Normal Platelet Morphology Normal Sickle Cells 1+ H Target Cells 1+ H [place] Bodies Present H Retic Count 4.9 H Absolute Retic 130.5 Lactate Dehydrogenase Blood Type AB Positive Antibody Screen Negative MTS Gel Crossmatch See Detail 05/24/18 05:20 WBC RBC Hgb Hct MCV MCH MCHC RDW Plt Count MPV Prelim Diff (Auto) Neut % (Auto) Lymph % (Auto) [place] % (Auto) Eos % (Auto) Baso % (Auto) Neut # (Auto) Lymph # (Auto) [place] # (Auto) Eos # (Auto) Baso # (Auto) WBC Differential Seg Neuts % (Manual) Lymphocytes % (Manual) Monocytes % (Manual) Eosinophils % (Manual) Basophils % (Manual) Abs Neuts (Manual) Differential Comment Platelet Estimate Platelet Morphology Sickle Cells Target Cells [place] Bodies Retic Count Absolute Retic Lactate Dehydrogenase 249 H Blood Type Antibody Screen MTS Gel Crossmatch Microbiology 05/22/18 12:50 Blood - Peripheral Aerobic Blood Culture - Preliminary No growth in 2 days 05/22/18 12:50 Blood - Peripheral Anaerobic Blood Culture - Preliminary No growth in 2 days 05/22/18 12:53 Blood - Peripheral Aerobic Blood Culture - Preliminary No growth in 2 days 05/22/18 12:53 Blood - Peripheral Anaerobic Blood Culture - Preliminary No growth in 2 days 05/22/18 10:17 Throat Group A Streptococcus Screen/Cult - Final No Beta Streptococci isolated. Assessment and Plan - Plan 27-year-old female with history of sickle cell disease, presents to the emergency room with complaints of sickle cell crisis. Patient reports that she normally takes Lortab 10 mg for her sickle cell disease, she did take this medication today and was unrelieved with her symptoms. Patient reports that she has pain over her body, reports that she does have some shortness of breath but this is typical of her symptoms as she has a diagnosis of asthma. She reported that she has approximately 4-5 sickle cell crisis per year and follows up with Dr. Gamino in [place] who is her heme oncologist. She complains of a sore throat. 1. Acute sickle cell pain crisis. The patient complains of a sore throat, she denies any chest pain, no shortness of breath. No dysuria. She complains of pain all over her body, especially in the joints. Continue IV fluids Remained afebrile however leukocytosis persist. Continue IV antibiotics. At this time there is no clear source of infection, chest x-ray is negative, urinalysis is not consistent with UTI. Continue Dilaudid dose to 2 mg IV every 4 hours as needed for severe pain. Continue [place] 10/325 p.o. the patient's pain medication regimen will be adjusted as needed. Benadryl as needed for pruritus. Supplemental oxygen Incentive spirometry Continue folic acid Hematology following. Appreciate recs. LDH and retic counts elevated. 2. Acute symptomatic anemia secondary to acute sickle cell crisis S/P 1 unit of PRBC. H&H stable this morning. Continue to monitor. On Lovenox for DVT prophylaxis.
--- NOTE | 2018-05-24 13:39 | P.PNONC ---
Subjective Interval history: Afebrile. Patient complains of "pain all over" she still admits to sore throat as well. She is requesting a heating pad. Denies any shortness of breath. Reports she has not been ambulating in room due to leg pain/weakness. Objective Vital Signs/Intake & Output: Vital Signs 05/23/18 16:00 05/23/18 20:00 05/24/18 00:00 Temperature 98.2 F 98.1 F 98.1 F Pulse Rate 71 69 91 H Respiratory Rate 16 Blood Pressure 120/63 147/72 H 136/75 Pulse Oximetry 95 97 98 05/24/18 04:00 05/24/18 08:00 05/24/18 12:00 Temperature 98.1 F 98.2 F 98.4 F Pulse Rate 74 63 78 Respiratory Rate 18 18 Blood Pressure 122/59 L 133/63 112/58 L Pulse Oximetry 90 L 96 92 L Intake & Output 05/23/18 05/24/18 05/24/18 18:59 06:59 18:59 Intake Total 1660 / 1660 4510 / 4510 1350 / 1350 Output Total 1100 / 1100 Balance 1660 / 1660 3410 / 3410 1350 / 1350 Weight 76.6 kg Intake: IV 700 / 700 2300 / 2300 1350 / 1350 NS Inj 1,000 ML @ 150 mls/hr IV 600 / 600 1750 / 1750 250 / 250 .CONT .Q6H40M ALMA DELIA Rx#:[id number] Unasyn Inj 3 GM In NS Inj 100 100 / 100 300 / 300 100 / 100 ML @ 200 mls/hr IV.SIG Q6H ALMA DELIA Rx#:[id number] NS Inj 1,000 ML @ Wide Open IV. 1000 / 1000 SIG BOLUS ALMA DELIA Rx#:[id number] NS Inj 250 ML @ 15 mls/hr IV. 250 / 250 SIG ONCE ALMA DELIA Rx#:[id number] Oral 960 / 960 2210 / 2210 Intake (Blood Product) Amt 0 / 0 Rbc As-3 Leukoreduced Unit 0 / 0 [id number] Output: Urine 1100 / 1100 Other: # Voids 6 # Bowel Movements 0 Result Diagrams: 05/24/18 05:20 05/23/18 05:45 Laboratory Results: Laboratory Results - last 24 hr 05/24/18 05/24/18 05/24/18 05:20 05:20 05:20 WBC 27.2 H RBC 2.65 L Hgb 7.5 L Hct 22.2 L MCV 83.7 MCH 28.5 MCHC 34.1 RDW 16.6 Plt Count 403 MPV 8.2 Prelim Diff (Auto) Slide review pending Neut % (Auto) 63.3 Lymph % (Auto) 23.9 [place] % (Auto) 11.6 H Eos % (Auto) 0.5 Baso % (Auto) 0.7 Neut # (Auto) 17.2 H Lymph # (Auto) 6.5 H [place] # (Auto) 3.2 H Eos # (Auto) 0.1 Baso # (Auto) 0.2 WBC Differential Manual diff final Seg Neuts % (Manual) 66 Lymphocytes % (Manual) 28 Monocytes % (Manual) 4 Eosinophils % (Manual) 1 Basophils % (Manual) 1 Abs Neuts (Manual) 18.0 H Differential Comment . Platelet Estimate Normal Platelet Morphology Normal Sickle Cells 1+ H Target Cells 1+ H [place] Bodies Present H Retic Count 4.9 H Absolute Retic 130.5 Lactate Dehydrogenase 249 H Culture Results: Microbiology 05/22/18 12:50 Aerobic Blood Culture - Preliminary Blood - Peripheral No growth in 2 days Anaerobic Blood Culture - Preliminary No growth in 2 days 05/22/18 12:53 Aerobic Blood Culture - Preliminary Blood - Peripheral No growth in 2 days Anaerobic Blood Culture - Preliminary No growth in 2 days 05/22/18 10:17 Group A Streptococcus Screen/Cult - Final Throat No Beta Streptococci isolated. 05/22/18 10:17 Group A Streptococcus Screen (ALO) - Final Throat Medications: Active Medications Generic Name Dose Route Start Last Admin Trade Name Freq PRN Reason Stop Dose Admin Acetaminophen 650 mg 05/22/18 13:22 05/23/18 11:48 Tylenol PO 650 mg Q4H PRN Administration Temp > 100.4 Diphenhydramine HCl 25 mg 05/22/18 14:32 05/24/18 08:54 Benadryl Inj IV.PUSH 25 mg Q6H PRN Administration pruritus Diphenhydramine HCl 25 mg 05/23/18 06:36 05/23/18 11:48 Benadryl PO 25 mg Q4H PRN Administration SEE LABEL COMMENTS Enoxaparin Sodium 40 mg 05/24/18 09:00 05/24/18 08:59 Lovenox Inj SQ Not Given DAILY ALMA DELIA Folic Acid 1 mg 05/24/18 09:00 05/24/18 08:58 Folic Acid PO 1 mg DAILY ALMA DELIA Administration Hydromorphone HCl 2 mg 05/23/18 16:47 05/24/18 12:53 Dilaudid Pf Inj IV.PUSH 2 mg Q4H PRN Administration PAIN SCALE 7 TO 10 SEVERE Sodium Chloride 1,000 mls @ 0 mls/hr 05/22/18 10:15 05/24/18 09:33 Ns Inj IV.SIG Infused BOLUS ALMA DELIA Infusion Wide Open Ampicillin Sodium/Sulbactam 100 mls @ 200 mls/hr 05/22/18 16:00 05/24/18 09: 39 Sodium 3 gm/ Sodium Chloride IV.SIG Infused Q6H ALMA DELIA Infusion Sodium Chloride 1,000 mls @ 150 mls/hr 05/23/18 17:00 05/24/18 12:57 Ns Inj IV.CONT 150 mls/hr .Q6H40M ALMA DELIA Administration Methylprednisolone Sodium Succinate 40 mg 05/22/18 15:00 05/24/18 08:58 Solumedrol Inj IV.PUSH 40 mg DAILY ALMA DELIA Administration Ondansetron HCl 4 mg 05/23/18 01:27 05/24/18 08:53 Zofran Inj IV.PUSH 4 mg Q6H PRN Administration NAUSEA OR VOMITING Senna/Docusate Sodium 1 tab 05/22/18 21:00 05/24/18 08:58 Malissa-Colace PO 1 tab BID ALMA DELIA Administration Zolpidem Tartrate 5 mg 05/22/18 21:00 05/23/18 20:58 Ambien PO 5 mg HS ALMA DELIA Administration Objective Remarks: GENERAL: Well-nourished, well-developed young female patient, lying in bed, in no acute distress. SKIN: Warm and dry. HEAD: Normocephalic. EYES: No scleral icterus. No injection or drainage. NECK: Supple, trachea midline. CARDIOVASCULAR: Regular rate and rhythm without murmurs. RESPIRATORY: Posterior breath sounds clear, equal bilaterally. Nonlabored at rest. GASTROINTESTINAL: Abdomen soft, non-tender, nondistended. EXTREMITIES: No cyanosis, or edema. MUSCULOSKELETAL: Adequate muscle tone. NEUROLOGICAL: No obvious focal deficit. Awake, alert, and oriented x3. PSYCHIATRIC: Appropriate mood and affect; insight and judgment normal. Assessment/Plan - Plan Ms. Frazier is a pleasant 27-year-old female with a history of sickle cell disease , asthma and cardiomyopathy. The patient presented to the hospital with sickle cell pain crisis. She had reported a sore throat and now with pain all over. Her camp dining room attendant is Dr. Gamino at [facility]. Plan: 1. Sickle cell pain crisis. Currently receiving Dilaudid 2 mg IV push every 4 hours. Patient requesting heating pad, this will be ordered. Continue hydration and antibiotics. 2. Sickle cell anemia, hemoglobin stable today at 7.5. Status post transfusion of 1 unit of PRBC yesterday, for hemoglobin of 6.6. Continue to monitor daily CBC. 3. Throat pain, throat culture was negative for strep. Patient continues on antibiotics. 4. Continue supportive care. - Attending Statement The exam, history, and the medical decision-making described in the above note were completed with the assistance of the mid-level provider. I reviewed and agree with the findings presented. I attest that I had a [id number] encounter with the patient on the same day, and personally performed and documented my assessment and findings in the medical record. Patient continues to have generalized pain and sore throat No evidence of acute chest syndrome Continue present treatment plan
[2018-05-24] MEDS: Zolpidem Tartrate 5 MG Tablet PO SCH (21:08)
[2018-05-25] MEDS: HYDROmorphone PF Inj 2 MG/ML Vial IV.PUSH PRN ×6 (01:01→21:27)
[2018-05-25] MEDS: Sod Chloride 0.9% Inj 1,000 ML IV.CONT SCH ×2 (01:59→18:14)
[2018-05-25] MEDS: Ampicillin/Sulbactam Inj 3 GM in Sodium Chloride 0.9% Inj 100 ML IV.SIG SCH ×4 (04:00→21:27)
[2018-05-25 05:38] LABS: Baso # (Auto) 0.2 th/mm3 (0.0-0.2); Baso % (Auto) 0.7 % (0.0-2.0); Eos # (Auto) 0.1 th/mm3 (0.0-0.4); Eos % (Auto) 0.3 % (0.0-4.0); Hemoglobin 7.2 gm/dL (11.6-15.3); Lymph # (Auto) 8.7 th/mm3 (1.0-4.8); Lymph % (Auto) 30.2 % (9.0-44.0); Mean Corpuscular HGB Conc 34.7 % (32.0-36.0); Mean Corpuscular Hemoglobin 28.6 pg (27.0-34.0); Mean Corpuscular Volume 82.2 fL (80.0-100.0); Mean Platelet Volume 8.1 fL (7.0-11.0); Mono # (Auto) 4.3 th/mm3 (0.0-0.9); Neut # (Auto) 15.4 th/mm3 (1.8-7.7); Neut % (Auto) 53.8 % (16.0-70.0); Platelet Count 406 th/mm3 (150-450); Red Blood Count 2.51 mil/mm3 (4.00-5.30); Red Cell Distribution Width 17.2 % (11.6-17.2); White Blood Count 28.7 th/mm3 (4.0-11.0)
[2018-05-25 05:39] LABS: Reticulocyte Percent 4.2 % (0.4-3.0)
[2018-05-25 05:46] LABS: Hematocrit 20.7 % (35.0-46.0)
[2018-05-25 05:55] LABS: Anion Gap 10 meq/L (5-15); Blood Urea Nitrogen 8 mg/dL (7-18); Calcium 7.7 mg/dL (8.5-10.1); Carbon Dioxide 23.9 meq/L (21.0-32.0); Chloride 110 meq/L (98-107); Glomerular Filtration Rate Greater Than 89 mL/min (>89); Glucose,Random 102 mg/dL (74-106); Lactate Dehydrogenase 278 U/L (84-246); Potassium 3.2 meq/L (3.5-5.1); Sodium 144 meq/L (136-145)
[2018-05-25 07:55] LABS: Eosinophils 1 % (0-4); Lymphocytes 27 % (9-44); Metamyelocytes 3 % (0-1); Monocytes 14 % (0-8); Tallied Nucleated RBC 2 (0-0)
[2018-05-25 07:56] LABS: Howell-Jolly Bodies Present; Platelet Estimate Normal (Normal); Platelet Morphology Normal (Normal); Sickle Cells 1+; Target Cells 1+
[2018-05-25] MEDS: Folic Acid 1 MG Tablet PO SCH (09:25)
[2018-05-25] MEDS: Senna/Docusate Sodium 8.6/50 MG Tablet PO SCH ×2 (09:25→21:27)
[2018-05-25] MEDS: MethylPREDNISolone Sod Succinate Inj 40 MG/ML Vial IV.PUSH SCH (09:26)
[2018-05-25] MEDS: Enoxaparin Inj 40 MG/0.4 ML Syringe SQ SCH (09:46)
--- NOTE | 2018-05-25 10:29 | P.PNIM ---
Subjective Interval history: Patient reports her symptoms are unchanged. She continues to have pain all over. Still reports same shortness of breath. Unchanged. Physical Exam Vital signs: Vital Signs 05/24/18 12:00 05/24/18 16:00 05/24/18 20:00 Temperature 98.4 F 98.4 F 98.4 F Pulse Rate 78 76 82 Respiratory Rate 18 18 16 Blood Pressure 112/58 L 118/70 134/64 Pulse Oximetry 92 L 95 94 L 05/25/18 00:00 05/25/18 04:00 05/25/18 08:00 Temperature 98.1 F 98.4 F 98.3 F Pulse Rate 90 74 71 Respiratory Rate 18 15 18 Blood Pressure 132/78 122/75 128/71 Pulse Oximetry 94 L 94 L 92 L Intake & Output 05/24/18 05/25/18 05/25/18 18:59 06:59 18:59 Intake Total 2450 / 2450 3480 / 3480 Output Total 2650 / 2650 Balance 2450 / 2450 830 / 830 Weight 77.3 kg Intake: IV 2450 / 2450 2200 / 2200 NS Inj 1,000 ML @ 150 mls/hr IV 1250 / 1250 2000 / 2000 .CONT .Q6H40M ALMA DELIA Rx#:[id number] Unasyn Inj 3 GM In NS Inj 100 200 / 200 200 / 200 ML @ 200 mls/hr IV.SIG Q6H ALMA DELIA Rx#:[id number] NS Inj 1,000 ML @ Wide Open IV. 1000 / 1000 SIG BOLUS ALMA DELIA Rx#:[id number] Oral 1280 / 1280 Output: Urine 2650 / 2650 Other: # Voids 5 Date of Last Bowel Movement 05/24/18 Narrative: GENERAL: No acute distress. CARDIOVASCULAR: Normal rate and regular rhythm without murmurs, gallops, or rubs. RESPIRATORY: Good respiratory efforts. Breath sounds equal and clear to auscultation bilaterally. GASTROINTESTINAL: Abdomen soft, non-tender, non-distended. Normal active bowel sounds MUSCULOSKELETAL: Extremities without cyanosis, or edema. NEURO: Alert & Oriented x4 to person, place, time, situation. Moves all ext x4 PSYCH: Flat affect. Results - Labs CBC & Chem 7: 05/25/18 04:45 05/25/18 04:45 Laboratory Results - last 24 hr 05/25/18 05/25/18 05/25/18 04:45 04:45 04:45 WBC 28.7 H RBC 2.51 L Hgb 7.2 L Hct 20.7 L* MCV 82.2 MCH 28.6 MCHC 34.7 RDW 17.2 Plt Count 406 MPV 8.1 Prelim Diff (Auto) Slide review pending Neut % (Auto) 53.8 Lymph % (Auto) 30.2 [place] % (Auto) 15.0 H Eos % (Auto) 0.3 Baso % (Auto) 0.7 Neut # (Auto) 15.4 H Lymph # (Auto) 8.7 H [place] # (Auto) 4.3 H Eos # (Auto) 0.1 Baso # (Auto) 0.2 WBC Differential Manual diff final Seg Neuts % (Manual) 50 Band Neuts % (Manual) 4 Lymphocytes % (Manual) 27 Monocytes % (Manual) 14 H Eosinophils % (Manual) 1 Basophils % (Manual) 1 Metamyelocytes % (Man) 3 H Abs Neuts (Manual) 16.4 H Nucleated RBCs/100 WBC 2 H Differential Comment . Platelet Estimate Normal Platelet Morphology Normal Sickle Cells 1+ H Target Cells 1+ H [place] Bodies Present H Retic Count 4.2 H Absolute Retic 106.5 Sodium 144 Potassium 3.2 L Chloride 110 H Carbon Dioxide 23.9 Anion Gap 10 BUN 8 Creatinine 0.69 Estimated GFR Greater than 89 Random Glucose 102 Calcium 7.7 L Lactate Dehydrogenase 278 H Microbiology 05/22/18 12:50 Blood - Peripheral Aerobic Blood Culture - Preliminary No growth in 2 days 05/22/18 12:50 Blood - Peripheral Anaerobic Blood Culture - Preliminary No growth in 2 days 05/22/18 12:53 Blood - Peripheral Aerobic Blood Culture - Preliminary No growth in 2 days 05/22/18 12:53 Blood - Peripheral Anaerobic Blood Culture - Preliminary No growth in 2 days 05/22/18 10:17 Throat Group A Streptococcus Screen/Cult - Final No Beta Streptococci isolated. Assessment and Plan - Plan 27-year-old female with history of sickle cell disease, presents to the emergency room with complaints of sickle cell crisis. Patient reports that she normally takes Lortab 10 mg for her sickle cell disease but it did not relieve her symptoms. Patient reports that she has pain over her body, reports that she does have some shortness of breath but this is typical of her symptoms as she has a diagnosis of asthma. She reported that she has approximately 4-5 sickle cell crisis per year and follows up with Dr. Gamino in [place] who is her heme oncologist. She complains of a sore throat. 1. Acute sickle cell pain crisis. The patient complains of a sore throat, she denies any chest pain, no shortness of breath. No dysuria. She complains of pain all over her body, especially in the joints. Continue IV fluids, change to hypotonic solution a quarter normal saline with KCl. Remained afebrile however leukocytosis persist. Continue IV antibiotics. At this time there is no clear source of infection, chest x-ray is negative, urinalysis is not consistent with UTI. Will discontinue IV steroids as this may contribute to elevation of WBC. Continue Dilaudid dose to 2 mg IV every 4 hours as needed for severe pain. Continue [place] 10/325 p.o. the patient's pain medication regimen will be adjusted as needed. Benadryl as needed for pruritus. Supplemental oxygen Incentive spirometry Continue folic acid Hematology following. Appreciate recs. LDH and retic counts elevated. 2. Acute symptomatic anemia secondary to acute sickle cell crisis S/P 1 unit of PRBC. H&H stable this morning. Continue to monitor. On Lovenox for DVT prophylaxis. Discharge Planning: Continue current treatment.
--- NOTE | 2018-05-25 11:44 | P.PNONC ---
Subjective Interval history: Afebrile. Patient lying in a position upon approach. She is alert and oriented. Continues to have "all over" pain. She does report some relief with the IV Dilaudid. She states she is unable to swallow pills, therefore only receiving IV pain medications. She has not been walking around her room, only getting up to use the bedside commode and reports pain with this. Denies chest pain, reports some shortness of breath. Sore throat has improved slightly. Objective Vital Signs/Intake & Output: Vital Signs 05/24/18 12:00 05/24/18 16:00 05/24/18 20:00 Temperature 98.4 F 98.4 F 98.4 F Pulse Rate 78 76 82 Respiratory Rate 18 18 16 Blood Pressure 112/58 L 118/70 134/64 Pulse Oximetry 92 L 95 94 L 05/25/18 00:00 05/25/18 04:00 05/25/18 08:00 Temperature 98.1 F 98.4 F 98.3 F Pulse Rate 90 74 71 Respiratory Rate 18 15 18 Blood Pressure 132/78 122/75 128/71 Pulse Oximetry 94 L 94 L 92 L Intake & Output 05/24/18 05/25/18 05/25/18 18:59 06:59 18:59 Intake Total 2450 / 2450 3480 / 3480 100 / 100 Output Total 2650 / 2650 Balance 2450 / 2450 830 / 830 100 / 100 Weight 77.3 kg Intake: IV 2450 / 2450 2200 / 2200 100 / 100 NS Inj 1,000 ML @ 150 mls/hr IV 1250 / 1250 1999 / 1999 .CONT .Q6H40M [facility] Rx#:[id number] Unasyn Inj 3 GM In NS Inj 100 200 / 200 200 / 200 100 / 100 ML @ 200 mls/hr IV.SIG Q6H [facility] Rx#:[id number] NS Inj 1,000 ML @ Wide Open IV. 1000 / 1000 SIG BOLUS [facility] Rx#:[id number] Oral 1280 / 1280 Output: Urine 2650 / 2650 Other: # Voids 5 Date of Last Bowel Movement 05/24/18 Result Diagrams: 05/25/18 04:45 05/25/18 04:45 Laboratory Results: Laboratory Results - last 24 hr 05/25/18 05/25/18 05/25/18 04:45 04:45 04:45 WBC 28.7 H RBC 2.51 L Hgb 7.2 L Hct 20.7 L* MCV 82.2 MCH 28.6 MCHC 34.7 RDW 17.2 Plt Count 406 MPV 8.1 Prelim Diff (Auto) Slide review pending Neut % (Auto) 53.8 Lymph % (Auto) 30.2 [place] % (Auto) 15.0 H Eos % (Auto) 0.3 Baso % (Auto) 0.7 Neut # (Auto) 15.4 H Lymph # (Auto) 8.7 H [place] # (Auto) 4.3 H Eos # (Auto) 0.1 Baso # (Auto) 0.2 WBC Differential Manual diff final Seg Neuts % (Manual) 50 Band Neuts % (Manual) 4 Lymphocytes % (Manual) 27 Monocytes % (Manual) 14 H Eosinophils % (Manual) 1 Basophils % (Manual) 1 Metamyelocytes % (Man) 3 H Abs Neuts (Manual) 16.4 H Nucleated RBCs/100 WBC 2 H Differential Comment . Platelet Estimate Normal Platelet Morphology Normal Sickle Cells 1+ H Target Cells 1+ H Kar[place] Bodies Present H Retic Count 4.2 H Absolute Retic 106.5 Sodium 144 Potassium 3.2 L Chloride 110 H Carbon Dioxide 23.9 Anion Gap 10 BUN 8 Creatinine 0.69 Estimated GFR Greater than 89 Random Glucose 102 Calcium 7.7 L Lactate Dehydrogenase 278 H Culture Results: Microbiology 05/22/18 12:50 Aerobic Blood Culture - Preliminary Blood - Peripheral No growth in 3 days Anaerobic Blood Culture - Preliminary No growth in 3 days 05/22/18 12:53 Aerobic Blood Culture - Preliminary Blood - Peripheral No growth in 3 days Anaerobic Blood Culture - Preliminary No growth in 3 days 05/22/18 10:17 Group A Streptococcus Screen/Cult - Final Throat No Beta Streptococci isolated. 05/22/18 10:17 Group A Streptococcus Screen (ALO) - Final Throat Medications: Active Medications Generic Name Dose Route Start Last Admin Trade Name Freq PRN Reason Stop Dose Admin Acetaminophen 650 mg 05/22/18 13:22 05/23/18 11:48 Tylenol PO 650 mg Q4H PRN Administration Temp > 100.4 Diphenhydramine HCl 25 mg 05/22/18 14:32 05/25/18 09:25 Benadryl Inj IV.PUSH 25 mg Q6H PRN Administration pruritus Diphenhydramine HCl 25 mg 05/23/18 06:36 05/23/18 11:48 Benadryl PO 25 mg Q4H PRN Administration SEE LABEL COMMENTS Enoxaparin Sodium 40 mg 05/24/18 09:00 05/25/18 09:46 Lovenox Inj SQ Not Given DAILY [facility] Folic Acid 1 mg 05/24/18 09:00 05/25/18 09:25 Folic Acid PO 1 mg DAILY [facility] Administration Hydromorphone HCl 2 mg 05/23/18 16:47 05/25/18 09:25 Dilaudid Pf Inj IV.PUSH 2 mg Q4H PRN Administration PAIN SCALE 7 TO 10 SEVERE Sodium Chloride 1,000 mls @ 0 mls/hr 05/22/18 10:15 05/24/18 09:33 Ns Inj IV.SIG Infused BOLUS [facility] Infusion Wide Open Ampicillin Sodium/Sulbactam 100 mls @ 200 mls/hr 05/22/18 16:00 05/25/18 11: 07 Sodium 3 gm/ Sodium Chloride IV.SIG Infused Q6H [facility] Infusion Ondansetron HCl 4 mg 05/23/18 01:27 05/25/18 01:01 Zofran Inj IV.PUSH 4 mg Q6H PRN Administration NAUSEA OR VOMITING Senna/Docusate Sodium 1 tab 05/22/18 21:00 05/25/18 09:25 Malissa-Colace PO 1 tab BID [facility] Administration Zolpidem Tartrate 5 mg 05/22/18 21:00 05/24/18 21:08 Ambien PO 5 mg HS [facility] Administration Objective Remarks: GENERAL: Well-nourished, well-developed young female patient, lying in bed, in no acute distress. SKIN: Warm and dry. HEAD: Normocephalic. EYES: No scleral icterus. No injection or drainage. NECK: Supple, trachea midline. CARDIOVASCULAR: Regular rate and rhythm without murmurs. RESPIRATORY: Posterior breath sounds clear, equal bilaterally. Nonlabored at rest. On room air. GASTROINTESTINAL: Abdomen soft, non-tender, nondistended. EXTREMITIES: No cyanosis, or edema. MUSCULOSKELETAL: Adequate muscle tone. NEUROLOGICAL: No obvious focal deficit. Awake, alert, and oriented x3. PSYCHIATRIC: Appropriate mood and affect; insight and judgment normal. Assessment/Plan - Plan Ms. Frazier is a pleasant 27-year-old female with a history of sickle cell disease , asthma and cardiomyopathy. The patient presented to the hospital with sickle cell pain crisis. She had reported a sore throat and now with pain all over. Her composite laminator is Dr. Gamino at [facility]. Plan: 1. Sickle cell pain crisis. No evidence of chest syndrome at this time. Currently receiving Dilaudid 2 mg IV push every 4 hours. Continue IV hydration. Monitor for sedation. 2. Sickle cell anemia, hemoglobin stable. Status post transfusion of 1 unit of PRBC on 05/23/18, for hemoglobin of 6.6. Continue to monitor daily CBC. 3. Throat pain, improving. Throat culture was negative for strep. Blood cultures negative. Patient continues on antibiotics. 4. Continue supportive care. - Attending Statement The exam, history, and the medical decision-making described in the above note were completed with the assistance of the mid-level provider. I reviewed and agree with the findings presented. I attest that I had a [id number] encounter with the patient on the same day, and personally performed and documented my assessment and findings in the medical record. c/o generalized pain IV narcotics Hydration O2 MOnitor cbc
[2018-05-25] MEDS: Potassium Chloride Inj 10 MEQ, Sodium Chloride 23.4% Inj 38.5 MEQ in Water for Inj, Ste... IV.CONT SCH ×2 (13:29→18:13)
[2018-05-25] MEDS: Zolpidem Tartrate 5 MG Tablet PO SCH (21:27)
[2018-05-26] MEDS: Potassium Chloride Inj 10 MEQ, Sodium Chloride 23.4% Inj 38.5 MEQ in Water for Inj, Ste... IV.CONT SCH ×4 (00:32→21:50)
[2018-05-26] MEDS: HYDROmorphone PF Inj 2 MG/ML Vial IV.PUSH PRN ×5 (01:25→21:33)
[2018-05-26] MEDS: Ampicillin/Sulbactam Inj 3 GM in Sodium Chloride 0.9% Inj 100 ML IV.SIG SCH ×2 (04:48→09:40)
[2018-05-26 05:49] LABS: Baso # (Auto) 0.2 th/mm3 (0.0-0.2); Baso % (Auto) 0.7 % (0.0-2.0); Eos # (Auto) 0.2 th/mm3 (0.0-0.4); Eos % (Auto) 0.7 % (0.0-4.0); Hematocrit 22.2 % (35.0-46.0); Hemoglobin 7.4 gm/dL (11.6-15.3); Lymph % (Auto) 26.9 % (9.0-44.0); Mean Corpuscular HGB Conc 33.5 % (32.0-36.0); Mean Corpuscular Hemoglobin 28.4 pg (27.0-34.0); Mean Corpuscular Volume 84.9 fL (80.0-100.0); Mean Platelet Volume 7.9 fL (7.0-11.0); Mono # (Auto) 4.7 th/mm3 (0.0-0.9); Neut # (Auto) 19.4 th/mm3 (1.8-7.7); Neut % (Auto) 57.7 % (16.0-70.0); Platelet Count 429 th/mm3 (150-450); Red Blood Count 2.61 mil/mm3 (4.00-5.30); Red Cell Distribution Width 17.2 % (11.6-17.2); White Blood Count 33.5 th/mm3 (4.0-11.0)
[2018-05-26 08:01] LABS: Eosinophils 1 % (0-4); Lymphocytes 33 % (9-44); Metamyelocytes 1 % (0-1); Monocytes 12 % (0-8); Myelocytes 4 % (0-0); Tallied Nucleated RBC 5 (0-0)
[2018-05-26 08:02] LABS: Pappenheimer Bodies Present; Sickle Cells 1+; Target Cells 1+
[2018-05-26 08:03] LABS: Basophilic Stippling Heavy; Howell-Jolly Bodies Present
[2018-05-26 08:04] LABS: Ovalocytes 1+; Platelet Morphology Normal (Normal)
[2018-05-26] MEDS: Senna/Docusate Sodium 8.6/50 MG Tablet PO SCH ×2 (09:38→21:33)
[2018-05-26] MEDS: Enoxaparin Inj 40 MG/0.4 ML Syringe SQ SCH (09:38)
[2018-05-26] MEDS: Folic Acid 1 MG Tablet PO SCH (09:38)
--- NOTE | 2018-05-26 15:08 | P.PNONC ---
Subjective Interval history: Patient sitting up in bed, playing on her phone. She states there is been no change in her body pain. She reports the pain is worse with movement, however if she sits still for too long that also exacerbates the pain. Her throat is not as painful. Reports good appetite. Objective Vital Signs/Intake & Output: Vital Signs 05/25/18 16:00 05/25/18 20:00 05/26/18 00:00 Temperature 99.0 F 98.0 F 98.0 F Pulse Rate 87 77 72 Respiratory Rate 18 18 18 Blood Pressure 123/67 124/69 128/70 Pulse Oximetry 95 91 L 94 L 05/26/18 04:00 05/26/18 08:00 05/26/18 08:23 Temperature 98.1 F 98.1 F Pulse Rate 76 72 Respiratory Rate 18 14 Blood Pressure 128/74 132/70 Pulse Oximetry 93 L 93 L 96 05/26/18 12:00 Temperature 98.9 F Pulse Rate 76 Respiratory Rate 14 Blood Pressure 118/65 Pulse Oximetry 91 L Intake & Output 05/25/18 05/26/18 05/26/18 18:59 06:59 18:59 Intake Total 1540 / 1540 3613.250 / 3613.250 100 / 100 Output Total 1200 / 1200 Balance 340 / 340 3613.250 / 3613.250 100 / 100 Weight 78.2 kg Intake: IV 700 / 700 2729.250 / 2729.250 100 / 100 KCl Inj 10 MEQ Sodium Chloride 2029.250 / 2029.250 23.4% Inj 38.5 MEQ In Sterile Water for Inj 1,000 ML @ 150 mls/hr IV.CONT .Q6H46M [facility] Rx#: [id number] NS Inj 1,000 ML @ 150 mls/hr IV 500 / 500 500 / 500 .CONT .Q6H40M [facility] Rx#:[id number] Unasyn Inj 3 GM In NS Inj 100 200 / 200 200 / 200 100 / 100 ML @ 200 mls/hr IV.SIG Q6H [facility] Rx#:[id number] Oral 840 / 840 884 / 884 Output: Urine 1200 / 1200 Other: # Voids 4 3 Date of Last Bowel Movement 05/25/18 05/25/18 # Bowel Movements 1 Result Diagrams: 05/26/18 05:25 05/25/18 04:45 Laboratory Results: Laboratory Results - last 24 hr 05/26/18 05:25 WBC 33.5 H RBC 2.61 L Hgb 7.4 L Hct 22.2 L MCV 84.9 MCH 28.4 MCHC 33.5 RDW 17.2 Plt Count 429 MPV 7.9 Prelim Diff (Auto) Slide review pending Neut % (Auto) 57.7 Lymph % (Auto) 26.9 [place] % (Auto) 14.0 H Eos % (Auto) 0.7 Baso % (Auto) 0.7 Neut # (Auto) 19.4 H Lymph # (Auto) 9.0 H [place] # (Auto) 4.7 H Eos # (Auto) 0.2 Baso # (Auto) 0.2 WBC Differential Manual diff final Seg Neuts % (Manual) 48 Lymphocytes % (Manual) 33 Monocytes % (Manual) 12 H Eosinophils % (Manual) 1 Basophils % (Manual) 1 Metamyelocytes % (Man) 1 Myelocytes % (Man) 4 H Abs Neuts (Manual) 17.8 H Nucleated RBCs/100 WBC 5 H Differential Comment . Platelet Estimate High H Platelet Morphology Normal Basophilic Stippling Heavy H Pappenheimer Bodies Present H Sickle Cells 1+ H Target Cells 1+ H Ovalocytes 1+ H Karimi-[place] Bodies Present H Culture Results: Microbiology 05/22/18 12:50 Aerobic Blood Culture - Preliminary Blood - Peripheral No growth in 4 days Anaerobic Blood Culture - Preliminary No growth in 4 days 05/22/18 12:53 Aerobic Blood Culture - Preliminary Blood - Peripheral No growth in 4 days Anaerobic Blood Culture - Preliminary No growth in 4 days 05/22/18 10:17 Group A Streptococcus Screen/Cult - Final Throat No Beta Streptococci isolated. Medications: Active Medications Generic Name Dose Route Start Last Admin Trade Name Freq PRN Reason Stop Dose Admin Acetaminophen 650 mg 05/22/18 13:22 05/23/18 11:48 Tylenol PO 650 mg Q4H PRN Administration Temp > 100.4 Diphenhydramine HCl 25 mg 05/22/18 14:32 05/26/18 09:30 Benadryl Inj IV.PUSH 25 mg Q6H PRN Administration pruritus Diphenhydramine HCl 25 mg 05/23/18 06:36 05/23/18 11:48 Benadryl PO 25 mg Q4H PRN Administration SEE LABEL COMMENTS Enoxaparin Sodium 40 mg 05/24/18 09:00 05/26/18 09:38 Lovenox Inj SQ Not Given DAILY [facility] Folic Acid 1 mg 05/24/18 09:00 05/26/18 09:38 Folic Acid PO 1 mg DAILY [facility] Administration Hydromorphone HCl 2 mg 05/23/18 16:47 05/26/18 13:44 Dilaudid Pf Inj IV.PUSH 2 mg Q4H PRN Administration PAIN SCALE 7 TO 10 SEVERE Sodium Chloride 1,000 mls @ 0 mls/hr 05/22/18 10:15 05/24/18 09:33 Ns Inj IV.SIG Infused BOLUS [facility] Infusion Wide Open Ampicillin Sodium/Sulbactam 100 mls @ 200 mls/hr 05/22/18 16:00 05/26/18 13: 45 Sodium 3 gm/ Sodium Chloride IV.SIG Infused Q6H [facility] Infusion Potassium Chloride 10 meq/ 1,014.625 mls @ 150 mls/hr 05/25/18 11:00 14:55 Sodium Chloride 38.5 meq/ IV.CONT 150 mls/hr Sterile Water .Q6H46M [facility] Administration Ondansetron HCl 4 mg 05/23/18 01:27 05/26/18 01:25 Zofran Inj IV.PUSH 4 mg Q6H PRN Administration NAUSEA OR VOMITING Senna/Docusate Sodium 1 tab 05/22/18 21:00 05/26/18 09:38 Malissa-Colace PO Not Given BID [facility] Zolpidem Tartrate 5 mg 05/22/18 21:00 05/25/18 21:27 Ambien PO 5 mg HS [facility] Administration Objective Remarks: GENERAL: Well-nourished, well-developed young female patient, sitting upright in bed, in no acute distress. SKIN: Warm and dry. HEAD: Normocephalic. EYES: No scleral icterus. No injection or drainage. NECK: Supple, trachea midline. CARDIOVASCULAR: +S1/S2 without murmurs. RESPIRATORY: Posterior breath sounds clear, equal bilaterally. Nonlabored at rest. On room air. GASTROINTESTINAL: Abdomen soft, non-tender, nondistended. EXTREMITIES: No cyanosis, or edema. MUSCULOSKELETAL: Adequate muscle tone. NEUROLOGICAL: No obvious focal deficit. Awake, alert, and oriented x3. PSYCHIATRIC: Appropriate mood and affect; insight and judgment normal. Assessment/Plan - Plan Ms. Frazier is a pleasant 27-year-old female with a history of sickle cell disease , asthma and cardiomyopathy. The patient presented to the hospital with sickle cell pain crisis. She had reported a sore throat and now with pain all over. Her mailmaster is Dr. Gamino at [facility]. Plan: 1. Sickle cell pain crisis. No evidence of chest syndrome at this time. Currently receiving Dilaudid 2 mg IV push every 4 hours. Continue IV hydration. Monitor for sedation. Currently on room air, continue to monitor O2 sat. 2. Sickle cell anemia, hemoglobin stable at 7.4. Status post transfusion of 1 unit of PRBC on 05/23/18, for hemoglobin of 6.6. Continue to monitor daily CBC. 3. Increase in white count, possibly secondary to steroid use. Patient was on Solu-Medrol 40 mg IV from 05/22 until 05/25. Throat pain, improving. Throat culture was negative for strep. Blood cultures negative. Chest x-ray was negative for infectious process. Patient continues on ampicillin. 4. Continue supportive care. - Attending Statement The exam, history, and the medical decision-making described in the above note were completed with the assistance of the mid-level provider. I reviewed and agree with the findings presented. I attest that I had a [id number] encounter with the patient on the same day, and personally performed and documented my assessment and findings in the medical record. Patient is still complaining of generalized pain Denies any chest pains or shortness of breath Sore throat has improved. Able to swallow and eat better No transfusion indicated at this time Continue hydration, narcotics, oxygen
--- NOTE | 2018-05-26 15:29 | P.PNIM ---
Subjective Interval history: Patient reports she is feeling a little bit better overall. No change in pain level. Physical Exam Vital signs: Vital Signs 05/25/18 16:00 05/25/18 20:00 05/26/18 00:00 Temperature 99.0 F 98.0 F 98.0 F Pulse Rate 87 77 72 Respiratory Rate 18 18 18 Blood Pressure 123/67 124/69 128/70 Pulse Oximetry 95 91 L 94 L 05/26/18 04:00 05/26/18 08:00 05/26/18 08:23 Temperature 98.1 F 98.1 F Pulse Rate 76 72 Respiratory Rate 18 14 Blood Pressure 128/74 132/70 Pulse Oximetry 93 L 93 L 96 05/26/18 12:00 Temperature 98.9 F Pulse Rate 76 Respiratory Rate 14 Blood Pressure 118/65 Pulse Oximetry 91 L Intake & Output 05/25/18 05/26/18 05/26/18 18:59 06:59 18:59 Intake Total 1540 / 1540 3613.250 / 3613.250 100 / 100 Output Total 1200 / 1200 Balance 340 / 340 3613.250 / 3613.250 100 / 100 Weight 78.2 kg Intake: IV 700 / 700 2729.250 / 2729.250 100 / 100 KCl Inj 10 MEQ Sodium Chloride 2029.250 / 2029.250 23.4% Inj 38.5 MEQ In Sterile Water for Inj 1,000 ML @ 150 mls/hr IV.CONT .Q6H46M [facility] Rx#: [id number] NS Inj 1,000 ML @ 150 mls/hr IV 500 / 500 500 / 500 .CONT .Q6H40M [facility] Rx#:[id number] Unasyn Inj 3 GM In NS Inj 100 200 / 200 200 / 200 100 / 100 ML @ 200 mls/hr IV.SIG Q6H [facility] Rx#:[id number] Oral 840 / 840 884 / 884 Output: Urine 1200 / 1200 Other: # Voids 4 3 Date of Last Bowel Movement 05/25/18 05/25/18 # Bowel Movements 1 Narrative: GENERAL: No acute distress. CARDIOVASCULAR: Normal rate and regular rhythm without murmurs, gallops, or rubs. RESPIRATORY: Good respiratory efforts. Breath sounds equal and clear to auscultation bilaterally. GASTROINTESTINAL: Abdomen soft, non-tender, non-distended. Normal active bowel sounds MUSCULOSKELETAL: Extremities without cyanosis, or edema. NEURO: Alert & Oriented x4 to person, place, time, situation. Moves all ext x4 PSYCH: Flat affect. Results - Labs CBC & Chem 7: 05/26/18 05:25 05/25/18 04:45 Laboratory Results - last 24 hr 05/26/18 05:25 WBC 33.5 H RBC 2.61 L Hgb 7.4 L Hct 22.2 L MCV 84.9 MCH 28.4 MCHC 33.5 RDW 17.2 Plt Count 429 MPV 7.9 Prelim Diff (Auto) Slide review pending Neut % (Auto) 57.7 Lymph % (Auto) 26.9 [place] % (Auto) 14.0 H Eos % (Auto) 0.7 Baso % (Auto) 0.7 Neut # (Auto) 19.4 H Lymph # (Auto) 9.0 H [place] # (Auto) 4.7 H Eos # (Auto) 0.2 Baso # (Auto) 0.2 WBC Differential Manual diff final Seg Neuts % (Manual) 48 Lymphocytes % (Manual) 33 Monocytes % (Manual) 12 H Eosinophils % (Manual) 1 Basophils % (Manual) 1 Metamyelocytes % (Man) 1 Myelocytes % (Man) 4 H Abs Neuts (Manual) 17.8 H Nucleated RBCs/100 WBC 5 H Differential Comment . Platelet Estimate High H Platelet Morphology Normal Basophilic Stippling Heavy H Pappenheimer Bodies Present H Sickle Cells 1+ H Target Cells 1+ H Ovalocytes 1+ H Karimi-[place] Bodies Present H Microbiology 05/22/18 12:50 Blood - Peripheral Aerobic Blood Culture - Preliminary No growth in 4 days 05/22/18 12:50 Blood - Peripheral Anaerobic Blood Culture - Preliminary No growth in 4 days 05/22/18 12:53 Blood - Peripheral Aerobic Blood Culture - Preliminary No growth in 4 days 05/22/18 12:53 Blood - Peripheral Anaerobic Blood Culture - Preliminary No growth in 4 days Assessment and Plan - Plan 27-year-old female with history of sickle cell disease, presents to the emergency room with complaints of sickle cell crisis. Patient reports that she normally takes Lortab 10 mg for her sickle cell disease but it did not relieve her symptoms. Patient reports that she has pain over her body, reports that she does have some shortness of breath but this is typical of her symptoms as she has a diagnosis of asthma. She reported that she has approximately 4-5 sickle cell crisis per year and follows up with Dr. Gamino in [place] who is her heme oncologist. She complains of a sore throat. 1. Acute sickle cell pain crisis. The patient complains of a sore throat, she denies any chest pain, no shortness of breath. No dysuria. She complains of pain all over her body, especially in the joints. Continue IV fluids with hypotonic solution a quarter normal saline with KCl. Remained afebrile however leukocytosis persist. no clear source of infection, chest x-ray is negative, urinalysis is not consistent with UTI. Continue Dilaudid dose to 2 mg IV every 4 hours as needed for severe pain. Continue [place] 10/325 p.o. the patient's pain medication regimen will be adjusted as needed. Benadryl as needed for pruritus. Supplemental oxygen Incentive spirometry Continue folic acid Hematology following. Appreciate recs. LDH and retic counts elevated. Persistently elevated WBC likely due to IV Solu-Medrol which was discontinued yesterday. Patient treated with empiric Unasyn. However there is no source of infection at this time. We will discontinue antibiotics and monitor the patient for signs of infection. 2. Acute symptomatic anemia secondary to acute sickle cell crisis S/P 1 unit of PRBC. H&H stable this morning. Continue to monitor. On Lovenox for DVT prophylaxis. Discharge Planning: Continue current treatment.
[2018-05-26] MEDS: Zolpidem Tartrate 5 MG Tablet PO SCH (21:33)
[2018-05-27] MEDS: HYDROmorphone PF Inj 2 MG/ML Vial IV.PUSH PRN ×6 (01:27→21:11)
[2018-05-27] MEDS: Potassium Chloride Inj 10 MEQ, Sodium Chloride 23.4% Inj 38.5 MEQ in Water for Inj, Ste... IV.CONT SCH ×4 (05:51→16:14)
[2018-05-27 07:50] LABS: Baso # (Auto) 0.2 th/mm3 (0.0-0.2); Baso % (Auto) 0.8 % (0.0-2.0); Eos # (Auto) 0.8 th/mm3 (0.0-0.4); Eos % (Auto) 3.3 % (0.0-4.0); Hematocrit 23.2 % (35.0-46.0); Hemoglobin 7.8 gm/dL (11.6-15.3); Lymph # (Auto) 4.9 th/mm3 (1.0-4.8); Lymph % (Auto) 19.8 % (9.0-44.0); Mean Corpuscular HGB Conc 33.8 % (32.0-36.0); Mean Corpuscular Hemoglobin 29.3 pg (27.0-34.0); Mean Corpuscular Volume 86.6 fL (80.0-100.0); Mean Platelet Volume 7.9 fL (7.0-11.0); Mono # (Auto) 3.4 th/mm3 (0.0-0.9); Mono % (Auto) 13.5 % (0.0-8.0); Neut # (Auto) 15.6 th/mm3 (1.8-7.7); Neut % (Auto) 62.6 % (16.0-70.0); Platelet Count 426 th/mm3 (150-450); Red Blood Count 2.67 mil/mm3 (4.00-5.30); Red Cell Distribution Width 17.1 % (11.6-17.2); White Blood Count 24.9 th/mm3 (4.0-11.0)
[2018-05-27 08:18] LABS: Anion Gap 6 meq/L (5-15); Blood Urea Nitrogen 5 mg/dL (7-18); Calcium 8.2 mg/dL (8.5-10.1); Carbon Dioxide 29.2 meq/L (21.0-32.0); Chloride 103 meq/L (98-107); Glomerular Filtration Rate Greater Than 89 mL/min (>89); Glucose,Random 87 mg/dL (74-106); Potassium 3.2 meq/L (3.5-5.1); Sodium 138 meq/L (136-145)
[2018-05-27 08:19] LABS: Lactate Dehydrogenase 261 U/L (84-246)
[2018-05-27 08:51] LABS: Eosinophils 1 % (0-4); Lymphocytes 27 % (9-44); Monocytes 9 % (0-8); Myelocytes 1 % (0-0); Promyelocyte 2 % (0-0); Tallied Nucleated RBC 12 (0-0)
[2018-05-27 08:55] LABS: Basophilic Stippling Heavy; Pappenheimer Bodies Present
[2018-05-27 08:59] LABS: Howell-Jolly Bodies Present; Sickle Cells 1+; Target Cells 1+
[2018-05-27] MEDS: Senna/Docusate Sodium 8.6/50 MG Tablet PO SCH ×2 (09:03→21:11)
[2018-05-27] MEDS: Enoxaparin Inj 40 MG/0.4 ML Syringe SQ SCH (09:03)
[2018-05-27] MEDS: Folic Acid 1 MG Tablet PO SCH (09:03)
[2018-05-27 09:04] LABS: Ovalocytes 1+; Platelet Morphology Normal (Normal)
--- NOTE | 2018-05-27 13:15 | P.PNIM ---
Subjective Interval history: Patient reports her pain is about the same. She does not want to make changes in her pain medication today. She is agreeable to try oral pain medications tomorrow. Physical Exam Vital signs: Vital Signs 05/26/18 16:00 05/26/18 19:57 05/26/18 20:00 Temperature 98.5 F 98.5 F Pulse Rate 77 73 Respiratory Rate 14 16 Blood Pressure 131/65 117/70 Pulse Oximetry 95 97 95 05/27/18 00:00 05/27/18 04:00 05/27/18 08:00 Temperature 95.5 F L 98.7 F 98.7 F Pulse Rate 78 72 93 H Respiratory Rate 18 18 20 Blood Pressure 118/73 121/83 123/73 Pulse Oximetry 96 96 93 L 05/27/18 10:51 Temperature Pulse Rate Respiratory Rate Blood Pressure Pulse Oximetry 93 L Intake & Output 05/26/18 05/27/18 05/27/18 18:59 06:59 18:59 Intake Total 820 / 820 2609.250 / 2609.250 1000 / 1000 Balance 820 / 820 2609.250 / 2609.250 1000 / 1000 Intake: IV 100 / 100 2029.250 / 2029.250 1000 / 1000 KCl Inj 10 MEQ Sodium Chloride 2029.250 / 2029.250 1000 / 1000 23.4% Inj 38.5 MEQ In Sterile Water for Inj 1,000 ML @ 150 mls/hr IV.CONT .Q6H46M [facility] Rx#: [id number] Unasyn Inj 3 GM In NS Inj 100 100 / 100 ML @ 200 mls/hr IV.SIG Q6H ALMA DELIA Rx#:[id number] Oral 720 / 720 580 / 580 Other: # Voids 4 Date of Last Bowel Movement 05/25/18 # Bowel Movements 1 Narrative: GENERAL: No acute distress. Looks comfortable. PSYCH: Flat affect. Results - Labs CBC & Chem 7: 05/27/18 07:20 05/27/18 07:20 Laboratory Results - last 24 hr 05/27/18 05/27/18 05/27/18 07:20 07:20 07:20 WBC 24.9 H RBC 2.67 L Hgb 7.8 L Hct 23.2 L MCV 86.6 MCH 29.3 MCHC 33.8 RDW 17.1 Plt Count 426 MPV 7.9 Prelim Diff (Auto) Slide review pending Neut % (Auto) 62.6 Lymph % (Auto) 19.8 [place] % (Auto) 13.5 H Eos % (Auto) 3.3 Baso % (Auto) 0.8 Neut # (Auto) 15.6 H Lymph # (Auto) 4.9 H [place] # (Auto) 3.4 H Eos # (Auto) 0.8 H Baso # (Auto) 0.2 WBC Differential Manual diff final Seg Neuts % (Manual) 54 Band Neuts % (Manual) 5 Lymphocytes % (Manual) 27 Monocytes % (Manual) 9 H Eosinophils % (Manual) 1 Basophils % (Manual) 1 Myelocytes % (Man) 1 H Promyelocytes % (Man) 2 H Abs Neuts (Manual) 15.4 H Nucleated RBCs/100 WBC 12 H Differential Comment . Platelet Estimate High H Platelet Morphology Normal Basophilic Stippling Heavy H Pappenheimer Bodies Present H Sickle Cells 1+ H Target Cells 1+ H Ovalocytes 1+ H Karimi-[place] Bodies Present H Sodium 138 Potassium 3.2 L Chloride 103 Carbon Dioxide 29.2 Anion Gap 6 BUN 5 L Creatinine 0.61 Estimated GFR Greater than 89 Random Glucose 87 Calcium 8.2 L Magnesium 1.4 L Lactate Dehydrogenase 261 H Microbiology 05/22/18 12:50 Blood - Peripheral Aerobic Blood Culture - Final No growth in 5 days 05/22/18 12:50 Blood - Peripheral Anaerobic Blood Culture - Final No growth in 5 days 05/22/18 12:53 Blood - Peripheral Aerobic Blood Culture - Final No growth in 5 days 05/22/18 12:53 Blood - Peripheral Anaerobic Blood Culture - Final No growth in 5 days Assessment and Plan - Plan 27-year-old female with history of sickle cell disease, presents to the emergency room with complaints of sickle cell crisis. Patient reports that she normally takes Lortab 10 mg for her sickle cell disease but it did not relieve her symptoms. Patient reports that she has pain over her body, reports that she does have some shortness of breath but this is typical of her symptoms as she has a diagnosis of asthma. She reported that she has approximately 4-5 sickle cell crisis per year and follows up with Dr. Gamino in [place] who is her heme oncologist. She complains of a sore throat. 1. Acute sickle cell pain crisis. The patient complains of a sore throat, she denies any chest pain, no shortness of breath. No dysuria. She complains of pain all over her body, especially in the joints. Continue IV fluids with hypotonic solution a quarter normal saline with KCl. No clear source of infection, chest x-ray is negative, urinalysis is not consistent with UTI. Continue Dilaudid dose to 2 mg IV every 4 hours as needed for severe pain. Continue [place] 10/325 p.o. the patient's pain medication regimen will be adjusted as needed. Benadryl as needed for pruritus. Supplemental oxygen Incentive spirometry Continue folic acid Hematology following. Appreciate recs. LDH and retic counts elevated. Leukocytosis is likely due to steroids. It is improving today. Patient treated with empiric Unasyn. However there is no source of infection at this time. Antibiotics discontinued. Monitor the patient for signs of infection. 2. Acute symptomatic anemia secondary to acute sickle cell crisis S/P 1 unit of PRBC. H&H stable this morning. Continue to monitor. On Lovenox for DVT prophylaxis. Discharge Planning: Continue current treatment. Plan to transition to oral medications tomorrow.
--- NOTE | 2018-05-27 15:08 | P.PNONC ---
Subjective Interval history: Patient sitting in bed, talking on telephone upon my approach. She states "I feel awful" reports headache and points to the temporal area, started earlier in the day. She states the all over her body pain has improved some. Objective Vital Signs/Intake & Output: Vital Signs 05/26/18 16:00 05/26/18 19:57 05/26/18 20:00 Temperature 98.5 F 98.5 F Pulse Rate 77 73 Respiratory Rate 14 16 Blood Pressure 131/65 117/70 Pulse Oximetry 95 97 95 05/27/18 00:00 05/27/18 04:00 05/27/18 08:00 Temperature 95.5 F L 98.7 F 98.7 F Pulse Rate 78 72 93 H Respiratory Rate 18 18 20 Blood Pressure 118/73 121/83 123/73 Pulse Oximetry 96 96 93 L 05/27/18 10:51 05/27/18 12:00 Temperature 99.1 F Pulse Rate 83 Respiratory Rate 20 Blood Pressure 120/71 Pulse Oximetry 93 L 92 L Intake & Output 05/26/18 05/27/18 05/27/18 18:59 06:59 18:59 Intake Total 820 / 820 2609.250 / 2609.250 1000 / 1000 Balance 820 / 820 2609.250 / 2609.250 1000 / 1000 Intake: IV 100 / 100 2029.250 / 2029.250 1000 / 1000 KCl Inj 10 MEQ Sodium Chloride 2029.250 / 2029.250 1000 / 1000 23.4% Inj 38.5 MEQ In Sterile Water for Inj 1,000 ML @ 150 mls/hr IV.CONT .Q6H46M [facility] Rx#: [id number] Unasyn Inj 3 GM In NS Inj 100 100 / 100 ML @ 200 mls/hr IV.SIG Q6H [facility] Rx#:[id number] Oral 720 / 720 580 / 580 Other: # Voids 4 Date of Last Bowel Movement 05/25/18 # Bowel Movements 1 Result Diagrams: 05/27/18 07:20 05/27/18 07:20 Laboratory Results: Laboratory Results - last 24 hr 05/27/18 05/27/18 05/27/18 07:20 07:20 07:20 WBC 24.9 H RBC 2.67 L Hgb 7.8 L Hct 23.2 L MCV 86.6 MCH 29.3 MCHC 33.8 RDW 17.1 Plt Count 426 MPV 7.9 Prelim Diff (Auto) Slide review pending Neut % (Auto) 62.6 Lymph % (Auto) 19.8 [place] % (Auto) 13.5 H Eos % (Auto) 3.3 Baso % (Auto) 0.8 Neut # (Auto) 15.6 H Lymph # (Auto) 4.9 H [place] # (Auto) 3.4 H Eos # (Auto) 0.8 H Baso # (Auto) 0.2 WBC Differential Manual diff final Seg Neuts % (Manual) 54 Band Neuts % (Manual) 5 Lymphocytes % (Manual) 27 Monocytes % (Manual) 9 H Eosinophils % (Manual) 1 Basophils % (Manual) 1 Myelocytes % (Man) 1 H Promyelocytes % (Man) 2 H Abs Neuts (Manual) 15.4 H Nucleated RBCs/100 WBC 12 H Differential Comment . Platelet Estimate High H Platelet Morphology Normal Basophilic Stippling Heavy H Pappenheimer Bodies Present H Sickle Cells 1+ H Target Cells 1+ H Ovalocytes 1+ H Karimi-[place] Bodies Present H Sodium 138 Potassium 3.2 L Chloride 103 Carbon Dioxide 29.2 Anion Gap 6 BUN 5 L Creatinine 0.61 Estimated GFR Greater than 89 Random Glucose 87 Calcium 8.2 L Magnesium 1.4 L Lactate Dehydrogenase 261 H Culture Results: Microbiology 05/22/18 12:50 Aerobic Blood Culture - Final Blood - Peripheral No growth in 5 days Anaerobic Blood Culture - Final No growth in 5 days 05/22/18 12:53 Aerobic Blood Culture - Final Blood - Peripheral No growth in 5 days Anaerobic Blood Culture - Final No growth in 5 days Medications: Active Medications Generic Name Dose Route Start Last Admin Trade Name Freq PRN Reason Stop Dose Admin Acetaminophen 650 mg 05/22/18 13:22 05/23/18 11:48 Tylenol PO 650 mg Q4H PRN Administration Temp > 100.4 Diphenhydramine HCl 25 mg 05/22/18 14:32 05/27/18 09:07 Benadryl Inj IV.PUSH 25 mg Q6H PRN Administration pruritus Diphenhydramine HCl 25 mg 05/23/18 06:36 05/23/18 11:48 Benadryl PO 25 mg Q4H PRN Administration SEE LABEL COMMENTS Enoxaparin Sodium 40 mg 05/24/18 09:00 05/27/18 09:03 Lovenox Inj SQ Not Given DAILY [facility] Folic Acid 1 mg 05/24/18 09:00 05/27/18 09:03 Folic Acid PO 1 mg DAILY [facility] Administration Hydromorphone HCl 2 mg 05/23/18 16:47 05/27/18 13:10 Dilaudid Pf Inj IV.PUSH 2 mg Q4H PRN Administration PAIN SCALE 7 TO 10 SEVERE Sodium Chloride 1,000 mls @ 0 mls/hr 05/22/18 10:15 05/24/18 09:33 Ns Inj IV.SIG Infused BOLUS [facility] Infusion Wide Open Potassium Chloride 10 meq/ 1,014.625 mls @ 150 mls/hr 05/25/18 11:00 09:38 Sodium Chloride 38.5 meq/ IV.CONT Not Given Sterile Water .Q6H46M [facility] Ondansetron HCl 4 mg 05/23/18 01:27 05/26/18 01:25 Zofran Inj IV.PUSH 4 mg Q6H PRN Administration NAUSEA OR VOMITING Senna/Docusate Sodium 1 tab 05/22/18 21:00 05/27/18 09:03 Malissa-Colace PO Not Given BID [facility] Sodium Chloride 2 ml 05/22/18 10:08 05/27/18 05:40 Ns Flush IV.FLUSH 2 ml PRN PRN Administration FLUSH AFTER USING IV ACCESS Zolpidem Tartrate 5 mg 05/22/18 21:00 05/26/18 21:33 Ambien PO 5 mg HS [facility] Administration Objective Remarks: GENERAL: Well-nourished, well-developed young female patient, sitting in bed, in no acute distress. SKIN: Warm and dry. HEAD: Normocephalic. EYES: No scleral icterus. No injection or drainage. NECK: Supple, trachea midline. CARDIOVASCULAR: +S1/S2 without murmurs. RESPIRATORY: Breath sounds clear, equal bilaterally. Nonlabored at rest. On room air. GASTROINTESTINAL: Abdomen soft, non-tender, nondistended. EXTREMITIES: No cyanosis, or edema. MUSCULOSKELETAL: Adequate muscle tone. NEUROLOGICAL: No obvious focal deficit. Awake, alert, and oriented x3. PSYCHIATRIC: Appropriate mood and affect; insight and judgment normal. Assessment/Plan - Plan Ms. Frazier is a pleasant 27-year-old female with a history of sickle cell disease , asthma and cardiomyopathy. The patient presented to the hospital with sickle cell pain crisis. She had reported a sore throat and now with pain all over. Her heel brusher is Dr. Gamino at [facility]. Plan: 1. Sickle cell pain crisis. Subjectively with slight improvement. Currently receiving Dilaudid 2 mg IV push every 4 hours. Continue IV hydration. Monitor for sedation. Currently on room air, continue to monitor O2 sat. 2. Sickle cell anemia, hemoglobin with some improvement 7.8 today. Continue to monitor daily CBC. 3. White count has decreased since steroids were stopped. No longer on ampicillin. Blood cultures were negative times 5 days. Strep negative. 4. Continue supportive care.
[2018-05-27] MEDS: Zolpidem Tartrate 5 MG Tablet PO SCH (21:11)
[2018-05-28] MEDS: Potassium Chloride Inj 10 MEQ, Sodium Chloride 23.4% Inj 38.5 MEQ in Water for Inj, Ste... IV.CONT SCH ×4 (00:10→19:11)
[2018-05-28] MEDS: HYDROmorphone PF Inj 2 MG/ML Vial IV.PUSH PRN ×3 (01:14→09:04)
[2018-05-28 08:12] LABS: Baso # (Auto) 0.2 th/mm3 (0.0-0.2); Eos # (Auto) 1.1 th/mm3 (0.0-0.4); Eos % (Auto) 6.3 % (0.0-4.0); Hematocrit 25.2 % (35.0-46.0); Hemoglobin 8.2 gm/dL (11.6-15.3); Lymph # (Auto) 4.2 th/mm3 (1.0-4.8); Lymph % (Auto) 23.7 % (9.0-44.0); Mean Corpuscular HGB Conc 32.5 % (32.0-36.0); Mean Corpuscular Hemoglobin 28.9 pg (27.0-34.0); Mean Corpuscular Volume 88.7 fL (80.0-100.0); Mean Platelet Volume 8.1 fL (7.0-11.0); Mono # (Auto) 2.1 th/mm3 (0.0-0.9); Mono % (Auto) 11.7 % (0.0-8.0); Neut # (Auto) 10.1 th/mm3 (1.8-7.7); Neut % (Auto) 57.3 % (16.0-70.0); Platelet Count 442 th/mm3 (150-450); Red Blood Count 2.84 mil/mm3 (4.00-5.30); Red Cell Distribution Width 17.4 % (11.6-17.2); White Blood Count 17.6 th/mm3 (4.0-11.0)
[2018-05-28] MEDS: Folic Acid 1 MG Tablet PO SCH (09:00)
[2018-05-28] MEDS: Senna/Docusate Sodium 8.6/50 MG Tablet PO SCH ×2 (09:13→20:33)
[2018-05-28] MEDS: Enoxaparin Inj 40 MG/0.4 ML Syringe SQ SCH (09:13)
[2018-05-28 09:23] LABS: Eosinophils 5 % (0-4); Lymphocytes 37 % (9-44); Metamyelocytes 4 % (0-1); Monocytes 11 % (0-8); Myelocytes 1 % (0-0); Sickle Cells 1+; Tallied Nucleated RBC 13 (0-0); Target Cells 1+
[2018-05-28 09:25] LABS: Pappenheimer Bodies Present
[2018-05-28 09:26] LABS: Howell-Jolly Bodies Present; Platelet Morphology Normal (Normal)
--- NOTE | 2018-05-28 10:56 | P.PNIM ---
Subjective Interval history: Patient still reports that her pain level is the same. I explained to her that the labs are much improved. She understand that she will be transitioned to oral pain medications. She requested that I keep IV Benadryl. Physical Exam Vital signs: Vital Signs 05/27/18 10:51 05/27/18 12:00 05/27/18 16:00 Temperature 99.1 F 98.4 F Pulse Rate 83 93 H Respiratory Rate 20 20 Blood Pressure 120/71 125/78 Pulse Oximetry 93 L 92 L 92 L 05/27/18 20:00 05/28/18 00:00 05/28/18 04:00 Temperature 96.6 F L 98.1 F 98 F Pulse Rate 80 87 74 Respiratory Rate 18 18 18 Blood Pressure 119/67 136/77 113/58 L Pulse Oximetry 96 97 94 L 05/28/18 08:00 Temperature 97.9 F Pulse Rate 85 Respiratory Rate 20 Blood Pressure 140/77 Pulse Oximetry 99 Intake & Output 05/27/18 05/28/18 05/28/18 18:59 06:59 18:59 Intake Total 225.625 / 225.625 2749.250 / 2749.250 Output Total 4900 / 4900 Balance -2645.375 / -2645.375 2749.250 / 2749.250 Weight 75.8 kg Intake: IV 250 / 2028.250 KCl Inj 10 MEQ Sodium Chloride 250 / 250 23.4% Inj 38.5 MEQ In Sterile Water for Inj 1,000 ML @ 150 mls/hr IV.CONT .Q6H46M [facility] Rx#: [id number] Oral 240 / 240 720 / 720 Output: Urine 4900 / 4900 Other: Date of Last Bowel Movement 05/25/18 # Bowel Movements 0 Narrative: GENERAL: No acute distress. Looks comfortable. Patient move about in the bed with no signs of discomfort. PSYCH: Flat affect. Results - Labs CBC & Chem 7: 05/28/18 07:10 05/27/18 07:20 Laboratory Results - last 24 hr 05/28/18 07:10 WBC 17.6 H RBC 2.84 L Hgb 8.2 L Hct 25.2 L MCV 88.7 MCH 28.9 MCHC 32.5 RDW 17.4 H Plt Count 442 MPV 8.1 Prelim Diff (Auto) Slide review pending Neut % (Auto) 57.3 Lymph % (Auto) 23.7 [place] % (Auto) 11.7 H Eos % (Auto) 6.3 H Baso % (Auto) 1.0 Neut # (Auto) 10.1 H Lymph # (Auto) 4.2 [place] # (Auto) 2.1 H Eos # (Auto) 1.1 H Baso # (Auto) 0.2 WBC Differential Manual diff final Seg Neuts % (Manual) 42 Lymphocytes % (Manual) 37 Monocytes % (Manual) 11 H Eosinophils % (Manual) 5 H Metamyelocytes % (Man) 4 H Myelocytes % (Man) 1 H Abs Neuts (Manual) 8.3 H Nucleated RBCs/100 WBC 13 H Differential Comment . Platelet Estimate High H Platelet Morphology Normal Pappenheimer Bodies Present H Sickle Cells 1+ H Target Cells 1+ H Karimi-[place] Bodies Present H Microbiology 05/22/18 12:50 Blood - Peripheral Aerobic Blood Culture - Final No growth in 5 days 05/22/18 12:50 Blood - Peripheral Anaerobic Blood Culture - Final No growth in 5 days 05/22/18 12:53 Blood - Peripheral Aerobic Blood Culture - Final No growth in 5 days 05/22/18 12:53 Blood - Peripheral Anaerobic Blood Culture - Final No growth in 5 days Assessment and Plan - Plan 27-year-old female with history of sickle cell disease, presents to the emergency room with complaints of sickle cell crisis. Patient reports that she normally takes Lortab 10 mg for her sickle cell disease but it did not relieve her symptoms. Patient reports that she has pain over her body, reports that she does have some shortness of breath but this is typical of her symptoms as she has a diagnosis of asthma. She reported that she has approximately 4-5 sickle cell crisis per year and follows up with Dr. Gamino in [place] who is her heme oncologist. She complains of a sore throat. 1. Acute sickle cell pain crisis. The patient complains of a sore throat, she denies any chest pain, no shortness of breath. No dysuria. She complains of pain all over her body, especially in the joints. Continue IV fluids with hypotonic solution a quarter normal saline with KCl. No clear source of infection, chest x-ray is negative, urinalysis is not consistent with UTI. Benadryl as needed for pruritus. Supplemental oxygen Incentive spirometry Continue folic acid Hematology following. Appreciate recs. LDH and retic counts elevated. Leukocytosis is likely due to steroids. It is improving today. Patient treated with empiric Unasyn. However there is no source of infection at this time. Antibiotics were discontinued. Monitor the patient for signs of infection. Regarding pain crisis, unfortunately, like most sickle cell patients, she has become tolerant of IV pain medication with IV narcotic seeking behavior. I have taken care of her on multiple occasions. Will transition her to her home dose oral pain medication today. 2. Acute symptomatic anemia secondary to acute sickle cell crisis S/P 1 unit of PRBC. H&H improved this morning. Continue to monitor. On Lovenox for DVT prophylaxis. Discharge Planning: Plan to DC tomorrow if labs stable or continue to improve.
[2018-05-28 12:48] LABS: Anion Gap 5 meq/L (5-15); Blood Urea Nitrogen 7 mg/dL (7-18); Calcium 7.8 mg/dL (8.5-10.1); Carbon Dioxide 30.6 meq/L (21.0-32.0); Chloride 103 meq/L (98-107); Glomerular Filtration Rate Greater Than 89 mL/min (>89); Glucose,Random 100 mg/dL (74-106); Potassium 3.3 meq/L (3.5-5.1); Sodium 139 meq/L (136-145)
[2018-05-28 12:49] LABS: Lactate Dehydrogenase 220 U/L (84-246)
[2018-05-28] MEDS: Mag Sulf 1 gm/100 ml Premix 100 ML IV.SIG SCH ×2 (12:57→13:58)
--- NOTE | 2018-05-28 18:14 | P.PNONC ---
Subjective Interval history: c/o severe generalized pain. No SOB Objective Vital Signs/Intake & Output: Vital Signs 05/27/18 20:00 05/28/18 00:00 05/28/18 04:00 Temperature 96.6 F L 98.1 F 98 F Pulse Rate 80 87 74 Respiratory Rate 18 18 18 Blood Pressure 119/67 136/77 113/58 L Pulse Oximetry 96 97 94 L 05/28/18 08:00 05/28/18 12:00 05/28/18 16:00 Temperature 97.9 F 98.6 F 98.2 F Pulse Rate 85 82 87 Respiratory Rate 20 20 20 Blood Pressure 140/77 132/74 120/69 Pulse Oximetry 99 97 98 Intake & Output 05/27/18 05/28/18 05/28/18 18:59 06:59 18:59 Intake Total 2254.625 / 2254.625 2749.250 / 2749.250 1780 / 1780 Output Total 4900 / 4900 4500 / 4500 Balance -2645.375 / -2645.375 2749.250 / 2749.250 -2720 / -2720 Weight 75.8 kg Intake: IV 202.250 / 202.250 1300 / 1300 KCl Inj 10 MEQ Sodium Chloride 202250 / 2028.250 1100 / 1100 23.4% Inj 38.5 MEQ In Sterile Water for Inj 1,000 ML @ 150 mls/hr IV.CONT .Q6H46M [facility] Rx#: [id number] Magnesium Sulfate 1 gm/D5W 100 200 / 200 ml Premix 100 ML @ 100 mls/hr IV.SIG Q1H [facility] Rx#:[id number] Oral 240 / 240 720 / 720 480 / 480 Output: Urine 4900 / 4900 4500 / 4500 Other: Date of Last Bowel Movement 05/25/18 05/25/18 # Bowel Movements 0 0 Result Diagrams: 05/28/18 07:10 05/28/18 11:57 Laboratory Results: Laboratory Results - last 24 hr 05/28/18 05/28/18 07:10 11:57 WBC 17.6 H RBC 2.84 L Hgb 8.2 L Hct 25.2 L MCV 88.7 MCH 28.9 MCHC 32.5 RDW 17.4 H Plt Count 442 MPV 8.1 Prelim Diff (Auto) Slide review pending Neut % (Auto) 57.3 Lymph % (Auto) 23.7 [place] % (Auto) 11.7 H Eos % (Auto) 6.3 H Baso % (Auto) 1.0 Neut # (Auto) 10.1 H Lymph # (Auto) 4.2 [place] # (Auto) 2.1 H Eos # (Auto) 1.1 H Baso # (Auto) 0.2 WBC Differential Manual diff final Seg Neuts % (Manual) 42 Lymphocytes % (Manual) 37 Monocytes % (Manual) 11 H Eosinophils % (Manual) 5 H Metamyelocytes % (Man) 4 H Myelocytes % (Man) 1 H Abs Neuts (Manual) 8.3 H Nucleated RBCs/100 WBC 13 H Differential Comment . Platelet Estimate High H Platelet Morphology Normal Pappenheimer Bodies Present H Sickle Cells 1+ H Target Cells 1+ H Karimi-[place] Bodies Present H Sodium 139 Potassium 3.3 L Chloride 103 Carbon Dioxide 30.6 Anion Gap 5 BUN 7 Creatinine 0.53 Estimated GFR Greater than 89 Random Glucose 100 Calcium 7.8 L Lactate Dehydrogenase 220 Culture Results: Microbiology 05/22/18 12:50 Aerobic Blood Culture - Final Blood - Peripheral No growth in 5 days Anaerobic Blood Culture - Final No growth in 5 days 05/22/18 12:53 Aerobic Blood Culture - Final Blood - Peripheral No growth in 5 days Anaerobic Blood Culture - Final No growth in 5 days Medications: Active Medications Generic Name Dose Route Start Last Admin Trade Name Freq PRN Reason Stop Dose Admin Acetaminophen 650 mg 05/22/18 13:22 05/23/18 11:48 Tylenol PO 650 mg Q4H PRN Administration Temp > 100.4 Hydrocodone Bitart/Acetaminophen 1 tab 05/22/18 14:39 05/28/18 16:29 [place] 10/325 PO 1 tab Q4H PRN Administration Acute Pain Diphenhydramine HCl 25 mg 05/22/18 14:32 05/28/18 15:04 Benadryl Inj IV.PUSH 25 mg Q6H PRN Administration pruritus Diphenhydramine HCl 25 mg 05/23/18 06:36 05/23/18 11:48 Benadryl PO 25 mg Q4H PRN Administration SEE LABEL COMMENTS Enoxaparin Sodium 40 mg 05/24/18 09:00 05/28/18 09:13 Lovenox Inj SQ Not Given DAILY [facility] Folic Acid 1 mg 05/24/18 09:00 05/28/18 09:00 Folic Acid PO 1 mg DAILY [facility] Administration Sodium Chloride 1,000 mls @ 0 mls/hr 05/22/18 10:15 05/24/18 09:33 Ns Inj IV.SIG Infused BOLUS [facility] Infusion Wide Open Potassium Chloride 10 meq/ 1,014.625 mls @ 150 mls/hr 05/25/18 11:00 15:06 Sodium Chloride 38.5 meq/ IV.CONT 150 mls/hr Sterile Water .Q6H46M [facility] Infusion Ondansetron HCl 4 mg 05/23/18 01:27 05/26/18 01:25 Zofran Inj IV.PUSH 4 mg Q6H PRN Administration NAUSEA OR VOMITING Senna/Docusate Sodium 1 tab 05/22/18 21:00 05/28/18 09:13 Malissa-Colace PO Not Given BID [facility] Sodium Chloride 2 ml 05/22/18 10:08 05/28/18 09:06 Ns Flush IV.FLUSH 2 ml PRN PRN Administration FLUSH AFTER USING IV ACCESS Zolpidem Tartrate 5 mg 05/22/18 21:00 05/27/18 21:11 Ambien PO 5 mg HS [facility] Administration Objective Remarks: GENERAL: Well-nourished, well-developed patient. SKIN: Warm and dry. HEAD: Normocephalic. EYES: No scleral icterus. No injection or drainage. NECK: Supple, trachea midline. No JVD or lymphadenopathy. LYMPHATIC: No adenopathy. CARDIOVASCULAR: Regular rate and rhythm without murmurs. RESPIRATORY: Breath sounds equal bilaterally. No accessory muscle use. GASTROINTESTINAL: Abdomen soft, non-tender, nondistended. EXTREMITIES: No cyanosis, or edema. NEUROLOGICAL: No obvious focal deficit. Awake, alert, and oriented x3. Assessment/Plan - Plan Ms. Frazier is a pleasant 27-year-old female with a history of sickle cell disease , asthma and cardiomyopathy. The patient presented to the hospital with sickle cell pain crisis. She had reported a sore throat and now with pain all over. Her mechanical applications engineer is Dr. Gamino at [facility]. Plan: 1. Sickle cell pain crisis. Subjectively with slight improvement. Currently receiving Dilaudid 2 mg IV push every 4 hours. Continue IV hydration. Monitor for sedation. Currently on room air, continue to monitor O2 sat. 2. Sickle cell anemia, hemoglobin with some improvement 7.8 today. Continue to monitor daily CBC. 3. White count has decreased since steroids were stopped. No longer on ampicillin. Blood cultures were negative times 5 days. Strep negative. 4. Continue supportive care. 05/28/18 Pt is requesting for [place] 10 as this works better than Dilaudid. Still has pain. Add norco PO and continue Dilaudid IV
[2018-05-28] MEDS: Zolpidem Tartrate 5 MG Tablet PO SCH (20:33)
[2018-05-29] MEDS: Potassium Chloride Inj 10 MEQ, Sodium Chloride 23.4% Inj 38.5 MEQ in Water for Inj, Ste... IV.CONT SCH ×3 (01:23→09:23)
[2018-05-29 05:17] LABS: Hematocrit 26.6 % (35.0-46.0); Hemoglobin 8.9 gm/dL (11.6-15.3); Mean Corpuscular HGB Conc 33.3 % (32.0-36.0); Mean Corpuscular Hemoglobin 29.4 pg (27.0-34.0); Mean Corpuscular Volume 88.1 fL (80.0-100.0); Mean Platelet Volume 7.6 fL (7.0-11.0); Platelet Count 441 th/mm3 (150-450); Red Blood Count 3.01 mil/mm3 (4.00-5.30); Red Cell Distribution Width 18.3 % (11.6-17.2); White Blood Count 15.3 th/mm3 (4.0-11.0)
[2018-05-29 05:43] LABS: Anion Gap 8 meq/L (5-15); Blood Urea Nitrogen 6 mg/dL (7-18); Calcium 8.5 mg/dL (8.5-10.1); Carbon Dioxide 27.8 meq/L (21.0-32.0); Chloride 102 meq/L (98-107); Glomerular Filtration Rate Greater Than 89 mL/min (>89); Glucose,Random 116 mg/dL (74-106); Sodium 138 meq/L (136-145)
[2018-05-29 05:44] LABS: Lactate Dehydrogenase 248 U/L (84-246)
[2018-05-29 08:36] VITALS: RESP 18
[2018-05-29] MEDS: Enoxaparin Inj 40 MG/0.4 ML Syringe SQ SCH (09:19)
[2018-05-29] MEDS: Folic Acid 1 MG Tablet PO SCH (09:19)
[2018-05-29] MEDS: Senna/Docusate Sodium 8.6/50 MG Tablet PO SCH (09:19)
[2018-05-29] MEDS ORDERED: Heparin Central Flush 100 UNIT/ML 5 ML Vial IV.FLUSH PRN ×2 (10:40)
--- NOTE | 2018-05-29 11:07 | P.DS ---
Date of admission: 05/22/18 13:05 Primary care physician: No Primary Care Physician Brief History from admission: HPI from the admitting physician: Patient is a 27-year-old female with history of sickle cell disease, presents to the emergency room with complaints of sickle cell crisis. Patient reports that she normally takes Lortab 10 mg for her sickle cell disease, she did take this medication today and was unrelieved with her symptoms. Patient reports that she has pain over her body, reports that she does have some shortness of breath but this is typical of her symptoms as she has a diagnosis of asthma. Patient reports that she has had a nonproductive cough, denies chest pain. Reports that she is also had a sore throat and pain with swallowing and not able to eat much due to pain. Patient denies any fevers or chills, denies any nausea or vomiting. Patient reports that her symptoms are typical of her normal sickle cell crisis pains. No urinary complaints. No chest pain or palpitations or shortness of breath. She is saturating well on room air. Patient's oncologist is Dr. Gamino in [facility] Patient update on day of discharge: Patient reports she is feeling okay except for her same pain. She slept without problems last night. DS: Diagnosis - Discharge Diagnosis (1) Sickle cell pain crisis Status: Acute DS: Summary Hospital Course: 27-year-old female with history of sickle cell disease admitted for sickle cell pain crisis. Evaluation and treatment course detailed below: 1. Acute sickle cell pain crisis. The patient initially complained of a sore throat, she denies any chest pain, no shortness of breath. No dysuria. She complains of pain all over her body, especially in the joints. Similar to her prior crisis. The patient was treated aggressively with hypotonic IV fluid. There were no source of infection. Chest x-ray is negative, urinalysis unremarkable. Hematology service followed the patient. She did have a leukocytosis which was attributed to IV steroids. The leukocytosis significantly improved once the steroid was discontinued. Patient initially treated with broad-spectrum antibiotics but her blood cultures remain negative. Antibiotics were discontinued. She was treated with IV Dilaudid for pain medication. During her hospitalization, it is evident the patient has growing tolerance for IV Dilaudid. Regarding pain crisis, unfortunately, like most sickle cell patients, she has become tolerant of IV pain medication with IV narcotic seeking behavior. I have taken care of her on multiple occasions. She was transitioned to her home dose oral pain medication. The patient is advised to follow-up outpatient with her certified family mediator to consider pain management referral. I also discussed with her the addictive nature of these medications. 2. Acute symptomatic anemia secondary to acute sickle cell crisis S/P 1 unit of PRBC. H&H improved and remained stable. Outpatient follow-up with certified family mediator advised. - Time Spent with Patient Total time spent providing and/or coordinating discharge services: Less than 30 minutes - Quality: VTE Deep Vein Thrombosis/Pulmonary Embolism Present on Admission: No Exam Vital signs: Vital Signs 05/28/18 12:00 05/28/18 16:00 05/28/18 20:00 Temperature 98.6 F 98.2 F 98.1 F Pulse Rate 82 87 83 Respiratory Rate 20 20 16 Blood Pressure 132/74 120/69 114/67 Pulse Oximetry 97 98 97 05/29/18 00:00 05/29/18 04:00 05/29/18 08:00 Temperature 98.0 F 98.6 F 98.2 F Pulse Rate 89 77 77 Respiratory Rate 16 16 18 Blood Pressure 121/72 118/69 118/74 Pulse Oximetry 95 99 96 Intake & Output 05/28/18 05/29/18 05/29/18 18:59 06:59 18:59 Intake Total 1880 / 1880 1837.250 / 2440.771 1858.625 / 1014.625 Output Total 4500 / 4500 Balance -2620 / -2620 1837.250 / 5752.423 9189.625 / 1014.625 Weight 75.9 kg Intake: IV 1400 / 1400 1357.250 / 9504.756 6029.625 / 1014.625 KCl Inj 10 MEQ Sodium Chloride 1200 / 1200 1357.250 / 3398.537 2042.625 / 1014.625 23.4% Inj 38.5 MEQ In Sterile Water for Inj 1,000 ML @ 150 mls/hr IV.CONT .Q6H46M [facility] Rx#: [id number] Magnesium Sulfate 1 gm/D5W 100 200 / 200 ml Premix 100 ML @ 100 mls/hr IV.SIG Q1H [facility] Rx#:[id number] Oral 480 / 480 480 / 480 Output: Urine 4500 / 4500 Other: Date of Last Bowel Movement 05/25/18 # Bowel Movements 0 Narrative: GENERAL: No acute distress. Looks comfortable. Patient move about in the bed with no signs of discomfort. CARDIOVASCULAR: Normal rate and regular rhythm without murmurs, gallops, or rubs. RESPIRATORY: Good respiratory efforts. Breath sounds equal and clear to auscultation bilaterally. PSYCH: Flat affect. Results Procedures completed during hospitalization: None Labs on day of discharge: Labs from last 24 hours 05/29/18 05/29/18 05/28/18 05:05 05:05 11:57 WBC 15.3 H RBC 3.01 L Hgb 8.9 L Hct 26.6 L MCV 88.1 MCH 29.4 MCHC 33.3 RDW 18.3 H Plt Count 441 MPV 7.6 Sodium 138 139 Potassium 4.0 3.3 L Chloride 102 103 Carbon Dioxide 27.8 30.6 Anion Gap 8 5 BUN 6 L 7 Creatinine 0.63 0.53 Estimated GFR Greater than 89 Greater than 89 Random Glucose 116 H 100 Calcium 8.5 7.8 L Lactate Dehydrogenase 248 H 220 - Impressions ITS Impressions Chest X-Ray 05/22/18 10:08 CONCLUSION: Elevation of the right hemidiaphragm with minimal prominence the cardiac silhouette stable from 05/04/2018. Discharge Plan - Discharge Disposition Patient Disposition: 01 Discharge Home - Discharge Condition Condition: Stable - Discharge Order Discharge Orders: Discharge Order (Routine); Ordered 05/29/18 Ordered By: Gil Thompson - Physicians Team Primary Care Provider: Primary Care Candy Leong Attending Provider: Gil Thompson Other Providers: [place],Insurance ; José Manuel Nova MD
[2018-05-29 12:57] VITALS: BP 118/77; PULSE 93; TEMP 98.1; O2SAT 98
--- NOTE | 2018-05-29 12:58 | P.PNONC ---
Subjective Interval history: Patient lying in bed, playing on phone. In no acute distress. She states "I am getting discharged today" Patient reports her pain as being the same. She denies any shortness of breath, O2 sat 96% on room air. Objective Vital Signs/Intake & Output: Vital Signs 05/28/18 16:00 05/28/18 20:00 05/29/18 00:00 Temperature 98.2 F 98.1 F 98.0 F Pulse Rate 87 83 89 Respiratory Rate 20 16 16 Blood Pressure 120/69 114/67 121/72 Pulse Oximetry 98 97 95 05/29/18 04:00 05/29/18 08:00 Temperature 98.6 F 98.2 F Pulse Rate 77 77 Respiratory Rate 16 18 Blood Pressure 118/69 118/74 Pulse Oximetry 99 96 Intake & Output 05/28/18 05/29/18 05/29/18 18:59 06:59 18:59 Intake Total 1880 / 1880 1837.250 / 8139.781 8021.625 / 1014.625 Output Total 4500 / 4500 Balance -2620 / -2620 1837.250 / 7800.927 5908.625 / 1014.625 Weight 75.9 kg Intake: IV 1400 / 1400 1357.250 / 8210.823 8316.625 / 1014.625 KCl Inj 10 MEQ Sodium Chloride 1200 / 1200 1357.250 / 9224.045 1987.625 / 1014.625 23.4% Inj 38.5 MEQ In Sterile Water for Inj 1,000 ML @ 150 mls/hr IV.CONT .Q6H46M ALMA DELIA Rx#: [id number] Magnesium Sulfate 1 gm/D5W 100 200 / 200 ml Premix 100 ML @ 100 mls/hr IV.SIG Q1H ALMA DELIA Rx#:[id number] Oral 480 / 480 480 / 480 Output: Urine 4500 / 4500 Other: Date of Last Bowel Movement 05/25/18 # Bowel Movements 0 Result Diagrams: 05/29/18 05:05 05/29/18 05:05 Laboratory Results: Laboratory Results - last 24 hr 05/29/18 05/29/18 05:05 05:05 WBC 15.3 H RBC 3.01 L Hgb 8.9 L Hct 26.6 L MCV 88.1 MCH 29.4 MCHC 33.3 RDW 18.3 H Plt Count 441 MPV 7.6 Sodium 138 Potassium 4.0 Chloride 102 Carbon Dioxide 27.8 Anion Gap 8 BUN 6 L Creatinine 0.63 Estimated GFR Greater than 89 Random Glucose 116 H Calcium 8.5 Lactate Dehydrogenase 248 H Culture Results: Microbiology 05/22/18 12:50 Aerobic Blood Culture - Final Blood - Peripheral No growth in 5 days Anaerobic Blood Culture - Final No growth in 5 days 05/22/18 12:53 Aerobic Blood Culture - Final Blood - Peripheral No growth in 5 days Anaerobic Blood Culture - Final No growth in 5 days Medications: Active Medications Generic Name Dose Route Start Last Admin Trade Name Freq PRN Reason Stop Dose Admin Acetaminophen 650 mg 05/22/18 13:22 05/23/18 11:48 Tylenol PO 650 mg Q4H PRN Administration Temp > 100.4 Hydrocodone Bitart/Acetaminophen 1 tab 05/22/18 14:39 05/29/18 09:24 Adams 10/325 PO 1 tab Q4H PRN Administration Acute Pain Diphenhydramine HCl 25 mg 05/22/18 14:32 05/29/18 03:10 Benadryl Inj IV.PUSH 25 mg Q6H PRN Administration pruritus Diphenhydramine HCl 25 mg 05/23/18 06:36 05/23/18 11:48 Benadryl PO 25 mg Q4H PRN Administration SEE LABEL COMMENTS Enoxaparin Sodium 40 mg 05/24/18 09:00 05/29/18 09:19 Lovenox Inj SQ Not Given DAILY ALMA DELIA Folic Acid 1 mg 05/24/18 09:00 05/29/18 09:19 Folic Acid PO 1 mg DAILY ALMA DELIA Administration Sodium Chloride 1,000 mls @ 0 mls/hr 05/22/18 10:15 05/24/18 09:33 Ns Inj IV.SIG Infused BOLUS ALMA DELIA Infusion Wide Open Potassium Chloride 10 meq/ 1,014.625 mls @ 150 mls/hr 05/25/18 11:00 09:23 Sodium Chloride 38.5 meq/ IV.CONT Infused Sterile Water .Q6H46M ALMA DELIA Infusion Ondansetron HCl 4 mg 05/23/18 01:27 05/26/18 01:25 Zofran Inj IV.PUSH 4 mg Q6H PRN Administration NAUSEA OR VOMITING Senna/Docusate Sodium 1 tab 05/22/18 21:00 09/29/18 09:19 Malissa-Colace PO Not Given BID ALMA DELIA Sodium Chloride 2 ml 05/22/18 10:08 05/28/18 09:06 Ns Flush IV.FLUSH 2 ml PRN PRN Administration FLUSH AFTER USING IV ACCESS Zolpidem Tartrate 5 mg 05/22/18 21:00 05/28/18 20:33 Ambien PO 5 mg HS ALMA DELIA Administration Objective Remarks: GENERAL: Well-nourished, well-developed young female patient, sitting in bed, in no acute distress. SKIN: Warm and dry. HEAD: Normocephalic. EYES: No scleral icterus. No injection or drainage. NECK: Supple, trachea midline. CARDIOVASCULAR: +S1/S2 without murmurs. RESPIRATORY: Breath sounds clear, equal bilaterally. Nonlabored at rest. On room air. GASTROINTESTINAL: Abdomen soft, non-tender, nondistended. EXTREMITIES: No cyanosis, or edema. MUSCULOSKELETAL: Adequate muscle tone. NEUROLOGICAL: No obvious focal deficit. Awake, alert, and oriented x3. PSYCHIATRIC: Appropriate mood and affect; insight and judgment normal. Assessment/Plan - Plan Ms. Frazier is a pleasant 27-year-old female with a history of sickle cell disease , asthma and cardiomyopathy. The patient presented to the hospital with sickle cell pain crisis. She had reported a sore throat and now with pain all over. Her harvest supervisor is Dr. Gamino at [facility]. Plan: 1. Sickle cell pain crisis. Subjectively reports no change in pain. Currently on Adams and Dilaudid. 2. Sickle cell anemia, hemoglobin continues to improve, 8.9 today. 3. White count has decreased since steroids were stopped. No longer on ampicillin. Blood cultures were negative times 5 days. Strep negative. 4. Once discharged patient will need to follow-up with her harvest supervisor.
== END 2018-05-29 14:06 | disposition home or self-care (01) ==
LOC: NEPC 08:31 → NEDA 13:05 → N04 15:00
PROVIDERS: ADMIT Family Medicine; ATTEND Family Medicine

== ENCOUNTER 2018-06-21 08:02 | Inpatient (IN) ==
--- NOTE | 2018-06-21 08:32 | ED ---
HPI General Chief complaint: Sickle Cell Stated complaint: Sickle Cell Complaint Time Seen by Provider: 06/21/18 08:09 Source: patient Mode of arrival: ambulatory Limitations: no limitations History of Present Illness HPI narrative: 27-year-old female states that over the past couple days she has had diffuse body aches like a sickle cell crisis that her pain medication is not working for her. She states additionally she feels like she has a stuffy nose and cough in her left ear has been bothering her. She denies any fever, shortness of breath or any other concurrent complaints at this time. complaint: Sickle cell pain Onset (ago): day(s) Pain Consistency: constant Relieving factors: none Exacerbating factors: none Associated symptoms: Reports denies other symptoms Treatments prior to arrival: Reports other (Home pain medication) Related Data Home Medications Medication Instructions Recorded Confirmed folic acid 0.8 mg PO DAILY 03/21/18 06/21/18 zolpidem [Ambien] 5 mg PO HS 03/21/18 06/21/18 hydrocodone-acetaminophen 1 tab PO Q6H 06/21/18 06/21/18 Allergies Allergy/AdvReac Type Severity Reaction Status Date / Time oxycodone Allergy Intermediate itching Verified 06/21/18 08:22 Review of Systems ROS: all other systems reviewed are negative [facility] Medical History Medical History Heart hypertrophy (Acute) Sickle cell anemia with pain (Acute) Asthma (Acute) Surgical History Surgical History History of cholecystectomy (Acute) Family History Family History Other No pertinent family history Social History Social History Substance History: No History of Abuse Second Hand Smoke Exposure: No Smoking Status: Never smoker How Often Do You Have a Drink Containing Alcohol: Monthly or less Recent Travel in [facility] within the Last 8 Weeks: No Recent Out of Country Travel within the Last 8 Weeks: No Immunization History Tetanus Immunization: >5 Years Exam Narrative Exam Narrative: General: No apparent distress, well appearing ENT: Posterior oropharyngx clear without exudate or erythema, external auditory canal on the left shows erythema and swelling without drainage, right canal is normal. Bilateral TM clear Neck: Neck is supple, no meningeal signs, trachea is midline Cardiovascular: Regular rate and rhythm Lungs: No increased respiratory effort noted, CTA bilaterally Abdomen: Soft, NT, ND, no rebound or guarding Extremities: No edema Neuro: Awake, motor and sensation grossly intact, normal speech Course Reevaluation(s) Reevaluation #1: Patient still persistent we will repeat Dilaudid and reevaluate , given leukocytosis will add on testing of lactate, chest x-ray, urinalysis Reevaluation #2: Only source of infection currently is otitis externa and likely viral URI. Influenza is negative. Will dose with Rocephin and observe overnight to make sure improving in terms of leukocytosis and pain control. Patient agrees to plan Consultations Consultation #1: resident team agrees to admit Initial Documented Vital Signs Temperature 98.5 F 06/21/18 08:04 Pulse Rate 110 H 06/21/18 08:04 Respiratory Rate 16 06/21/18 08:04 Blood Pressure 135/64 06/21/18 08:04 Pulse Oximetry 99 06/21/18 08:04 Last Documented Vital Signs Temperature 98.5 F 06/21/18 08:04 Pulse Rate 92 H 06/21/18 11:07 Respiratory Rate 18 06/21/18 11:07 Blood Pressure 126/74 06/21/18 11:07 Pulse Oximetry 100 06/21/18 11:07 Medical Decision Making MDM Narrative Medical decision making narrative: Will check blood work and chest x-ray and reevaluate. Patient will need to be treated for otitis externa Medical Screen Exam Complete: Yes Emergency Medical Condition: Yes Differential Diagnosis Differential Diagnosis: Pneumonia, URI, otitis media, otitis externa, sickle cell crisis, anemia Lab Data Lab results reviewed: Yes I reviewed the patient's lab results. Result diagrams: 06/21/18 08:30 06/21/18 08:30 POC Results POC Urine Results Negative Lab Results 06/21/18 06/21/18 06/21/18 Range/Units 08:30 08:30 09:20 WBC 29.1 H (4.0-11.0) th/mm3 RBC 3.07 L (4.00-5.30) mil/mm3 Hgb 8.3 L (11.6-15.3) gm/dL Hct 24.7 L (35.0-46.0) % MCV 80.5 (80.0-100.0) fL MCH 26.9 L (27.0-34.0) pg MCHC 33.4 (32.0-36.0) % RDW 19.4 H (11.6-17.2) % Plt Count 531 H (150-450) th/mm3 MPV 8.0 (7.0-11.0) fL Prelim Diff (Auto) Slide review pending Neut % (Auto) 81.1 H (16.0-70.0) % Lymph % (Auto) 7.8 L (9.0-44.0) % [place] % (Auto) 8.3 H (0.0-8.0) % Eos % (Auto) 1.9 (0.0-4.0) % Baso % (Auto) 0.9 (0.0-2.0) % Neut # (Auto) 23.6 H (1.8-7.7) th/mm3 Lymph # (Auto) 2.3 (1.0-4.8) th/mm3 [place] # (Auto) 2.4 H (0.0-0.9) th/mm3 Eos # (Auto) 0.6 H (0.0-0.4) th/mm3 Baso # (Auto) 0.3 H (0.0-0.2) th/mm3 WBC Differential Manual diff final Seg Neuts % (Manual) 80 H (16-70) % Lymphocytes % (Manual) 12 (9-44) % Monocytes % (Manual) 7 (0-8) % Myelocytes % (Man) 1 H (0-0) % Abs Neuts (Manual) 23.6 H (1.8-7.7) th/mm3 Differential Comment . Platelet Estimate High H (Normal) Platelet Morphology Normal (Normal) Polychromasia 3.2 H (0.0-1.9) % Pappenheimer Bodies Present H (None) Sickle Cells 1+ H (None) Karimi-Weldon Bodies Present H (None) Retic Count 7.4 H (0.4-3.0) % Absolute Retic 227.3 H (20.0-150.0) mil/L Sodium 139 (136-145) meq/L Potassium 3.5 (3.5-5.1) meq/L Chloride 109 H (98-107) meq/L Carbon Dioxide 20.3 L (21.0-32.0) meq/L Anion Gap 10 (5-15) meq/L BUN 8 (7-18) mg/dL Creatinine 0.77 (0.50-1.00) mg/dL Estimated GFR Greater than 89 (>89) mL/min Random Glucose 100 (74-106) mg/dL Lactic Acid (0.4-2.0) mmol/L Calcium 8.7 (8.5-10.1) mg/dL Total Bilirubin 1.6 H (0.2-1.0) mg/dL AST 44 H (15-37) U/L ALT 24 (10-53) U/L Alkaline Phosphatase 86 (45-117) U/L Total Protein 8.6 H (6.4-8.2) g/dL Albumin 4.0 (3.4-5.0) g/dL Urine Color Yellow (Yellw/Straw) Urine Clarity Hazy H (Clear) Urine pH 5.0 (5.0-8.5) Ur Specific [place] 1.016 (1.002-1.035) Urine Protein Negative (Neg-Trace) mg/dL Urine Glucose (UA) Negative (Negative) mg/dL Urine Ketones Negative (Negative) mg/dL Urine Occult Blood Small H (Negative) Urine Nitrate Negative (Negative) Urine Bilirubin Negative (Negative) Urine Urobilinogen 2.0 H (Less than 2) mg/dL Ur Leukocyte Esterase Negative (Negative) Urine RBC 1 (0-3) /hpf Urine WBC 1 (0-5) /hpf Ur Squamous Epith Cells 25 (0-5) /hpf Urine Mucus Few H (Occasional) /lpf Micro UA Comment Culture not ind Ur Microscopic Review Not Reportable Urine Culture Comments Culture not ind 06/21/18 Range/Units 09:22 WBC (4.0-11.0) th/mm3 RBC (4.00-5.30) mil/mm3 Hgb (11.6-15.3) gm/dL Hct (35.0-46.0) % MCV (80.0-100.0) fL MCH (27.0-34.0) pg MCHC (32.0-36.0) % RDW (11.6-17.2) % Plt Count (150-450) th/mm3 MPV (7.0-11.0) fL Prelim Diff (Auto) Neut % (Auto) (16.0-70.0) % Lymph % (Auto) (9.0-44.0) % [place] % (Auto) (0.0-8.0) % Eos % (Auto) (0.0-4.0) % Baso % (Auto) (0.0-2.0) % Neut # (Auto) (1.8-7.7) th/mm3 Lymph # (Auto) (1.0-4.8) th/mm3 [place] # (Auto) (0.0-0.9) th/mm3 Eos # (Auto) (0.0-0.4) th/mm3 Baso # (Auto) (0.0-0.2) th/mm3 WBC Differential Seg Neuts % (Manual) (16-70) % Lymphocytes % (Manual) (9-44) % Monocytes % (Manual) (0-8) % Myelocytes % (Man) (0-0) % Abs Neuts (Manual) (1.8-7.7) th/mm3 Differential Comment Platelet Estimate (Normal) Platelet Morphology (Normal) Polychromasia (0.0-1.9) % Pappenheimer Bodies (None) Sickle Cells (None) Karimi-Weldon Bodies (None) Retic Count (0.4-3.0) % Absolute Retic (20.0-150.0) mil/L Sodium (136-145) meq/L Potassium (3.5-5.1) meq/L Chloride (98-107) meq/L Carbon Dioxide (21.0-32.0) meq/L Anion Gap (5-15) meq/L BUN (7-18) mg/dL Creatinine (0.50-1.00) mg/dL Estimated GFR (>89) mL/min Random Glucose (74-106) mg/dL Lactic Acid 0.5 (0.4-2.0) mmol/L Calcium (8.5-10.1) mg/dL Total Bilirubin (0.2-1.0) mg/dL AST (15-37) U/L ALT (10-53) U/L Alkaline Phosphatase (45-117) U/L Total Protein (6.4-8.2) g/dL Albumin (3.4-5.0) g/dL Urine Color (Yellw/Straw) Urine Clarity (Clear) Urine pH (5.0-8.5) Ur Specific [place] (1.002-1.035) Urine Protein (Neg-Trace) mg/dL Urine Glucose (UA) (Negative) mg/dL Urine Ketones (Negative) mg/dL Urine Occult Blood (Negative) Urine Nitrate (Negative) Urine Bilirubin (Negative) Urine Urobilinogen (Less than 2) mg/dL Ur Leukocyte Esterase (Negative) Urine RBC (0-3) /hpf Urine WBC (0-5) /hpf Ur Squamous Epith Cells (0-5) /hpf Urine Mucus (Occasional) /lpf Micro UA Comment Ur Microscopic Review Urine Culture Comments Imaging Data Attestation: I personally reviewed and interpreted this imaging study as follows : Radiologist's impression: Chest X-Ray 06/21/18 08:26 CONCLUSION: 1. No acute abnormality or significant interval change. Discharge Plan Discharge Disposition Patient Disposition: 30 Still Patient Discharge Details Diagnosis: Sickle cell pain crisis, Leukocytosis, Otitis externa Physicians Team ED Provider: Candie Nelson Primary Care Provider: Primary Care Candy Leong Attending Provider: Reilly Rice Status ED Status: Admitted Observation Patient
[2018-06-21 08:58] LABS: Baso # (Auto) 0.3 th/mm3 (0.0-0.2); Baso % (Auto) 0.9 % (0.0-2.0); Eos # (Auto) 0.6 th/mm3 (0.0-0.4); Eos % (Auto) 1.9 % (0.0-4.0); Hematocrit 24.7 % (35.0-46.0); Hemoglobin 8.3 gm/dL (11.6-15.3); Lymph # (Auto) 2.3 th/mm3 (1.0-4.8); Lymph % (Auto) 7.8 % (9.0-44.0); Mean Corpuscular HGB Conc 33.4 % (32.0-36.0); Mean Corpuscular Hemoglobin 26.9 pg (27.0-34.0); Mean Corpuscular Volume 80.5 fL (80.0-100.0); Mono # (Auto) 2.4 th/mm3 (0.0-0.9); Mono % (Auto) 8.3 % (0.0-8.0); Neut # (Auto) 23.6 th/mm3 (1.8-7.7); Neut % (Auto) 81.1 % (16.0-70.0); Platelet Count 531 th/mm3 (150-450); Red Blood Count 3.07 mil/mm3 (4.00-5.30); Red Cell Distribution Width 19.4 % (11.6-17.2); Reticulocyte Percent 7.4 % (0.4-3.0); White Blood Count 29.1 th/mm3 (4.0-11.0)
--- NOTE | 2018-06-21 09:00 | XR ---
EXAM DATE: 06/21/2018 8:26 AM EDT AGE/SEX: 27 years / Female INDICATIONS: . Chest pain. CLINICAL DATA: This is the patient's initial encounter. Patient reports that signs and symptoms have been present for 3 days and indicates a pain score of 5/10. MEDICAL/SURGICAL HISTORY: Sickle Cell disease. . Infusaport. COMPARISON: [facility], CHEST 1V SINGLE AP, 05/22/2018. . FINDINGS: Stable right IJ [id number]. No significant new focal pleural or parenchymal opacities. Redemonstra tion of mild elevation the right hemidiaphragm. The cardiomediastinal contours are unremarkable. Oss eous structures are intact. CONCLUSION: 1. No acute abnormality or significant interval change. Electronically signed by: Harish Bray MD 06/21/2018 8:58 AM EDT
[2018-06-21] MEDS ORDERED: HYDROmorphone PF Inj 1 MG/50 ML BAG IV.SIG ONE ×2 (09:02→10:24)
[2018-06-21 09:09] LABS: Alanine Aminotransferase 24 U/L (10-53); Anion Gap 10 meq/L (5-15); Aspartate Aminotransferase 44 U/L (15-37); Blood Urea Nitrogen 8 mg/dL (7-18); Calcium 8.7 mg/dL (8.5-10.1); Carbon Dioxide 20.3 meq/L (21.0-32.0); Chloride 109 meq/L (98-107); Glomerular Filtration Rate Greater Than 89 mL/min (>89); Glucose,Random 100 mg/dL (74-106); Potassium 3.5 meq/L (3.5-5.1); Sodium 139 meq/L (136-145)
[2018-06-21 09:12] LABS: Alkaline Phosphatase 86 U/L (45-117); Total Protein 8.6 g/dL (6.4-8.2)
[2018-06-21] MEDS ORDERED: HYDROmorphone PF Inj 1 MG/ML Ampul IV.SIG ONE ×2 (09:15→10:45)
[2018-06-21] MEDS ORDERED: Sod Chloride 0.9% Inj 1,000 ML IV.SIG SCH (09:15)
[2018-06-21 09:33] LABS: Lymphocytes 12 % (9-44); Monocytes 7 % (0-8); Myelocytes 1 % (0-0); Polychromasia 3.2 % (0.0-1.9)
[2018-06-21 09:34] LABS: Howell-Jolly Bodies Present; Pappenheimer Bodies Present; Platelet Morphology Normal (Normal); Sickle Cells 1+
[2018-06-21 09:57] LABS: Bilirubin,Urine Negative (Negative); Clarity,Urine Hazy (Clear); Color,Urine Yellow (Yellw/Straw); Glucose,Urine (UA) Negative (Negative); Leukocyte Esterase,Urine Negative (Negative); Mucus,Urine Few /lpf (Occasional); Nitrite,Urine Negative (Negative); Specific Gravity,Urine 1.016 (1.002-1.035); Squamous Epithelial Cell,Urine 25 /hpf (0-5)
--- NOTE | 2018-06-21 12:55 | P.HPFP ---
History of Present Illness Primary Care Physician: No Primary Care Physician History of Present Illness: This patient is a 27-year-old female with a history of sickle cell anemia who presented to the ED with a 1 day history of left ear pain as well as generalized body pain. Ear pain: She reports that her left ear pain began yesterday. The pain is constant and she characterizes the pain in her ear as a pressure "like something is stuck in my ear". Patient has taken Tylenol extra strength as well as ibuprofen with no resolve. She has also tried putting a warm towel over her ear that also did not help. She denies any ear drainage and denies recent swimming or bathing. There are no other associated symptoms with her ear pain. She denies any recent illnesses but reports that her 5-year-old son was sick 1 week ago. Additionally she reports a one time episode of vomiting on Thursday night that was nonbloody and bilious. Since then, she has had no fevers, chills, nausea, vomiting, upper respiratory or GI symptoms. ear pain since yesterday in left ear. Characterized as pressure like something is stuck in my ear. Patient took tylenol XS and ibuprofen. Warm cloth which didn't help either. No recent illnesses. 5 year old had a cold a week ago. No drainage. Hearing feels stuffy. Has a minor headache now. No recent swimming, take showers not baths. Vomited Thursday night, billious non bloody. Generalized pain: Patient reports a 2-day history of generalized pain in her arms legs and back. She reports that the pain is very reminiscent of her sickle cell crisis. The pain is described as sharp and achy and generalized without radiation. She reports that the pain is constant without any exacerbating or alleviating factors and no other associated symptoms. Patient takes hydrocodone 10 mg every 6 hours outpatient. She reports staying hydrated due to her sickle cell. She does report that in the past warm showers as well as drink hot tea has helped. OBHx: , at 34 weeks due to polyhydramnios PMHx: Sickle anemia, asthma Surgical Hx: , Cholesectomy 18 years ago, 3 port placement for difficulty with IV access managed by Dr. 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 She reports living with her mother, she is sexually with men and has been with her bf for 4 years. Consumes alcohol at social events and drinks 1-2 drinks due to her sickle cell. denies use of illicit drugs Code: Full code - Diagnosis (1) SIRS (systemic inflammatory response syndrome) (2) Sickle cell anemia with pain (3) Nutrition, metabolism, and development symptoms Inpatient Certification: I certify that the inpatient services were ordered in accordance with Medicare regulations governing the order. This includes certification that hospital inpatient services are reasonable and necessary and in the case of services not specified as inpatient-only under 42 CFR 419.22(n), that they are appropriately provided as inpatient services in accordance to with the 2-midnight benchmark under 43 CFR 412.3(e) Estimated Total Length of Stay (Days): 2 Plans for Post Hospital Care: Home Review of Systems Constitutional: Denies chills, Denies fever(s), Denies dizziness, endorses a minor headache Eyes: Denies change in vision, Denies double vision, Denies blurry vision HEENT: As per HPI Cardiovascular: Denies chest pain, Denies fast heart rate, Denies rapid, pounding, or irregular heartbeat Respiratory: Patient suffers from asthma and reports she is chronically short of breath Gastrointestinal: Denies abdominal pain, Denies constipation, Denies loose stools, Denies nausea, reports a one episode of vomiting on Thursday night Genitourinary: Denies difficulty urinating, Denies painful urination, Denies urinary frequency, Denies blood in urine Musculoskeletal: As stated in HPI PMFSH - History History Provided By: Patient - Medical History Medical History: Medical History (Last Reviewed 06/21/18 @ 08:31 by Candie Nelson MD) Heart hypertrophy (Acute) Sickle cell anemia with pain (Acute) Asthma (Acute) - Surgical History Surgical History: Surgical History (Last Reviewed 06/21/18 @ 08:31 by Candie Nelson MD) History of cholecystectomy (Acute) - Family History Family History: Family History (Last Reviewed 06/21/18 @ 08:31 by Candie Nelson MD) Other No pertinent family history - Tobacco History Second Hand Smoke Exposure: No Smoking Status: Never smoker - Alcohol History How Often Do You Have a Drink Containing Alcohol: Monthly or less - Substance Use History Substance History: No History of Abuse - Travel History Recent Travel in the [place] Within the Last 8 Weeks: No Recent Travel Out of the Country Within the Last 8 Weeks: No - Immunization History Tetanus Immunization: >5 Years Medications and Allergies Active Medications: Active Medications Sodium Chloride (Ns Inj) 1,000 mls @ 0 mls/hr IV.SIG BOLUS ALMA DELIA Last Infusion: 06/21/18 10:32 Dose: Infused Sodium Chloride (Ns Flush) 2 ml IV.FLUSH BID ALMA DELIA Sodium Chloride (Ns Flush) 2 ml IV.FLUSH PRN PRN PRN Reason: FLUSH AFTER USING IV ACCESS Allergies Allergy/AdvReac Type Severity Reaction Status Date / Time oxycodone Allergy Intermediate itching Verified 06/21/18 08:22 Home Medications Medication Instructions Recorded Confirmed Type folic acid 0.8 mg PO DAILY 03/21/18 06/21/18 History zolpidem [Ambien] 5 mg PO HS 03/21/18 06/21/18 History hydrocodone-acetaminophen 1 tab PO Q6H 06/21/18 06/21/18 History Exam Vital signs: Vital Signs 06/21/18 08:04 06/21/18 09:25 06/21/18 11:07 Temperature 98.5 F Pulse Rate 110 H 88 92 H Respiratory Rate 16 19 18 Blood Pressure 135/64 124/74 126/74 Pulse Oximetry 99 98 100 Intake & Output 06/20/18 06/21/18 06/21/18 18:59 06:59 18:59 Intake Total 1100 / 1100 Balance 1100 / 1100 Weight 63.503 kg Intake: IV 1100 / 1100 NS Inj 1,000 ML @ Wide Open IV. 1000 / 1000 SIG BOLUS ALMA DELIA Rx#:[id number] Rocephin Inj 1,000 MG In NS Inj 100 / 100 100 ML @ 200 mls/hr IV.SIG ONCE ONE Rx#:[id number] Narrative: GENERAL: Well-nourished, well-developed patient. No acute distress. SKIN: Warm and dry. No rash. No jaundice. EYES: Noticeable scleral icterus. No injection or drainage. PERRLA. EOMI. HENT: No pain elicited by manipulation of the pinna, no auditory canal erythema , no tympanic membrane bulging erythema or effusion. NECK: Supple, trachea midline. No JVD or lymphadenopathy. CARDIOVASCULAR: Regular rate and rhythm without obvious murmurs, gallops, or rubs. RESPIRATORY: Breath sounds equal bilaterally. No accessory muscle use. CTAB. GASTROINTESTINAL: Abdomen soft, non-tender, nondistended. BS WNL. MUSCULOSKELETAL: No cyanosis or edema. Strength grossly WNL. No swelling of digits. BACK: Nontender without obvious deformity. No CVA tenderness. NEURO/PSYCH: Afocal. Awake, alert, and oriented x3. Results - Labs Result diagrams: 06/21/18 08:30 06/21/18 08:30 Abnormal lab results 06/21/18 06/21/18 06/21/18 Range/Units 08:30 08:30 09:20 WBC 29.1 H (4.0-11.0) th/mm3 RBC 3.07 L (4.00-5.30) mil/mm3 Hgb 8.3 L (11.6-15.3) gm/dL Hct 24.7 L (35.0-46.0) % MCH 26.9 L (27.0-34.0) pg RDW 19.4 H (11.6-17.2) % Plt Count 531 H (150-450) th/mm3 Neut % (Auto) 81.1 H (16.0-70.0) % Lymph % (Auto) 7.8 L (9.0-44.0) % [place] % (Auto) 8.3 H (0.0-8.0) % Neut # (Auto) 23.6 H (1.8-7.7) th/mm3 [place] # (Auto) 2.4 H (0.0-0.9) th/mm3 Eos # (Auto) 0.6 H (0.0-0.4) th/mm3 Baso # (Auto) 0.3 H (0.0-0.2) th/mm3 Seg Neuts % (Manual) 80 H (16-70) % Myelocytes % (Man) 1 H (0-0) % Abs Neuts (Manual) 23.6 H (1.8-7.7) th/mm3 Platelet Estimate High H (Normal) Polychromasia 3.2 H (0.0-1.9) % Pappenheimer Bodies Present H (None) Sickle Cells 1+ H (None) [place] Bodies Present H (None) Retic Count 7.4 H (0.4-3.0) % Absolute Retic 227.3 H (20.0-150.0) mil/L Chloride 109 H (98-107) meq/L Carbon Dioxide 20.3 L (21.0-32.0) meq/L Total Bilirubin 1.6 H (0.2-1.0) mg/dL AST 44 H (15-37) U/L Total Protein 8.6 H (6.4-8.2) g/dL Urine Clarity Hazy H (Clear) Urine Occult Blood Small H (Negative) Urine Urobilinogen 2.0 H (Less than 2) mg/dL Urine Mucus Few H (Occasional) /lpf Short CBC 06/21/18 Range/Units 08:30 WBC 29.1 H (4.0-11.0) th/mm3 Hgb 8.3 L (11.6-15.3) gm/dL Hct 24.7 L (35.0-46.0) % Plt Count 531 H (150-450) th/mm3 BMP 06/21/18 08:30 Sodium 139 Potassium 3.5 Chloride 109 H Carbon Dioxide 20.3 L BUN 8 Creatinine 0.77 Calcium 8.7 Liver Function 06/21/18 Range/Units 08:30 Total Bilirubin 1.6 H (0.2-1.0) mg/dL AST 44 H (15-37) U/L ALT 24 (10-53) U/L Alkaline Phosphatase 86 (45-117) U/L Albumin 4.0 (3.4-5.0) g/dL Urine 06/21/18 Range/Units 09:20 Urine Color Yellow (Yellw/Straw) Urine Clarity Hazy H (Clear) Urine pH 5.0 (5.0-8.5) Ur Specific [place] 1.016 (1.002-1.035) Urine Protein Negative (Neg-Trace) mg/dL Urine Glucose (UA) Negative (Negative) mg/dL - Imaging Impressions Chest X-Ray 06/21/18 08:26 CONCLUSION: 1. No acute abnormality or significant interval change. Caprini VTE Risk Assessment Caprini VTE Risk Assessment: No/Low Risk (score <= 1) Caprini Risk Assessment Model: Point Value = 1 Point Value = 2 Point Value = 3 Point Value = 5 Age 41-60 Minor surgery BMI > 25 kg/m2 Swollen legs Varicose veins or History of unexplained or recurrent spontaneous Oral contraceptives or hormone replacement Sepsis (< 1 month) Serious lung disease, including pneumonia (< 1 month) Abnormal pulmonary function Acute myocardial infarction Congestive heart failure (< 1 month) History of inflammatory bowel disease Medical patient at bed rest Age 61-74 Arthroscopic surgery Major open surgery (> 45 min) Laparoscopic surgery (> 45 min) Malignancy Confined to bed (> 72 hours) Immobilizing plaster cast Central venous access Age >= 75 History of VTE Family history of VTE Factor V Leiden Prothrombin [id number] Lupus anticoagulant Anticardiolipin antibodies Elevated serum homocysteine Heparin-induced thrombocytopenia Other congenital or acquired thrombophilia Stroke (< 1 month) Elective arthroplasty Hip, pelvis, or leg fracture Acute spinal cord injury (< 1 month) Prophylaxis Regimen: Total Risk Factor Score Risk Level Prophylaxis Regimen 0-1 Low Early ambulation 2 Moderate Order ONE of the following: *Sequential Compression Device (SCD) *Heparin 5000 units SQ BID 3-4 Higher Order ONE of the following medications: *Heparin 5000 units SQ TID *Enoxaparin/Lovenox 40 mg SQ daily (WT < 150 kg, CrCl > 30 mL/min) *Enoxaparin/Lovenox 30 mg SQ daily (WT < 150 kg, CrCl > 10-29 mL/min) *Enoxaparin/Lovenox 30 mg SQ BID (WT < 150 kg, CrCl > 30 mL/min) AND/OR *Sequential Compression Device (SCD) 5 or more Highest Order ONE of the following medications: *Heparin 5000 units SQ TID (Preferred with Epidurals) *Enoxaparin/Lovenox 40 mg SQ daily (WT < 150 kg, CrCl > 30 mL/min) *Enoxaparin/Lovenox 30 mg SQ daily (WT < 150 kg, CrCl > 10-29 mL/min) *Enoxaparin/Lovenox 30 mg SQ BID (WT < 150 kg, CrCl > 30 mL/min) AND *Sequential Compression Device (SCD) Assessment and Plan - Assessment (1) SIRS (systemic inflammatory response syndrome) Code(s): R65.10 - Systemic inflammatory response syndrome (SIRS) of non- infectious origin without acute organ dysfunction Status: Acute Plan: Patient is a 27-year-old female with a history of sickle cell anemia admitted after meeting SIRS criteria in the setting of generalized pain and ear pain. On admission patient had a white count of 29.1 with a heart rate greater than 90 and suspected otitis externa. After EMR review the patient has chronic leukocytosis with only 2 normal values out of the last 103 blood draws since August 2016. She is afebrile with no obvious source of infection. During the physical exam patient had no findings to suggest otitis externa or acute otitis media. All other symptoms negative on review of systems. Patient received 1 dose of ceftriaxone as well as 2 mg of Dilaudid in the ED. Antibiotics not warranted at this time. -Continue with hydration - Monitor CBC - Monitor Vitals (2) Sickle cell anemia with pain Code(s): D57.00 - Hb-SS disease with crisis, unspecified Status: Acute Plan: This patient suffers from sickle cell anemia and is well-known to the emergency department for several visits due to sickle cell crisis. Patient reports generalized pain in her muscles but denies any chest pain, flank pain, or new digit swelling. -Hydration with normal saline IV at 100 mL/h -Continue home pain medication; [place] 10/325 every 6 hours scheduled -Additional pain control with: -Acetaminophen 650 every 6 as needed for pain scale 1-2 -[place] 5/325 every 4 as needed for pain scale 3-5 -[place] 7.5/325 every 4 as needed for pain scale 6 through 10 -Dilaudid 1 mg IV every 4 as needed for breakthrough pain (3) Nutrition, metabolism, and development symptoms Code(s): R63.8 - Other symptoms and signs concerning food and fluid intake Status: Acute Plan: Fluids: Normal saline IV at 100 mL/h Electrolytes: Replete as needed Nutrition: Regular diet DVT prophylaxis: SCDs and early ambulation
[2018-06-21] MEDS ORDERED: Naloxone Inj 0.4 MG/ML Vial IV.PUSH PRN (13:33)
[2018-06-21] MEDS ORDERED: Acetaminophen 325 MG Tablet PO PRN (13:33)
[2018-06-21] MEDS: Folic Acid 1 MG Tablet PO SCH (14:36)
[2018-06-21] MEDS: Sod Chloride 0.9% Inj 1,000 ML IV.CONT SCH ×2 (14:37→23:12)
[2018-06-21] MEDS: HYDROmorphone PF Inj 2 MG/ML Vial IV.PUSH PRN ×3 (15:16→23:05)
[2018-06-21] MEDS: Zolpidem Tartrate 5 MG Tablet PO SCH (20:53)
[2018-06-22] MEDS: HYDROmorphone PF Inj 2 MG/ML Vial IV.PUSH PRN ×6 (02:41→23:37)
[2018-06-22 07:11] LABS: Baso # (Auto) 0.3 th/mm3 (0.0-0.2); Baso % (Auto) 1.1 % (0.0-2.0); Eos # (Auto) 0.6 th/mm3 (0.0-0.4); Eos % (Auto) 2.5 % (0.0-4.0); Lymph # (Auto) 3.1 th/mm3 (1.0-4.8); Lymph % (Auto) 12.9 % (9.0-44.0); Mean Corpuscular HGB Conc 34.1 % (32.0-36.0); Mean Corpuscular Hemoglobin 27.3 pg (27.0-34.0); Mean Corpuscular Volume 80.1 fL (80.0-100.0); Mean Platelet Volume 8.8 fL (7.0-11.0); Mono # (Auto) 2.6 th/mm3 (0.0-0.9); Mono % (Auto) 11.1 % (0.0-8.0); Neut # (Auto) 17.1 th/mm3 (1.8-7.7); Neut % (Auto) 72.4 % (16.0-70.0); Platelet Count 414 th/mm3 (150-450); Red Blood Count 2.55 mil/mm3 (4.00-5.30); Red Cell Distribution Width 18.8 % (11.6-17.2); White Blood Count 23.6 th/mm3 (4.0-11.0)
[2018-06-22 07:17] LABS: Hematocrit 20.4 % (35.0-46.0)
[2018-06-22 07:47] LABS: Anion Gap 8 meq/L (5-15); Blood Urea Nitrogen 5 mg/dL (7-18); Calcium 8.3 mg/dL (8.5-10.1); Carbon Dioxide 24.9 meq/L (21.0-32.0); Chloride 108 meq/L (98-107); Glomerular Filtration Rate Greater Than 89 mL/min (>89); Glucose,Random 86 mg/dL (74-106); Potassium 3.4 meq/L (3.5-5.1); Sodium 141 meq/L (136-145)
[2018-06-22 08:14] LABS: Pappenheimer Bodies Present; Platelet Estimate Normal (Normal); Platelet Morphology Normal (Normal); Sickle Cells 1+
[2018-06-22] MEDS ORDERED: Bisacodyl 10 MG Supp RECTAL PRN (08:43)
[2018-06-22] MEDS: Folic Acid 1 MG Tablet PO SCH (09:09)
[2018-06-22] MEDS: Sod Chloride 0.9% Inj 1,000 ML IV.CONT SCH ×2 (09:10→20:54)
[2018-06-22] MEDS: Senna/Docusate Sodium 8.6/50 MG Tablet PO SCH ×2 (09:13→20:55)
--- NOTE | 2018-06-22 11:31 | P.PNFP ---
Subjective Interval history: Patient lying in bed. States that she was nauseated overnight and could not sleep. Reports several episodes of nonbloody vomiting. States that her pain is only mildly controlled. She would like Benadryl mixed with pain meds via IV as well as increasing her dose of IV Dilaudid. Reports that she still has a little bit of pain in her left ear. She denies chest pain, shortness of breath, abdominal pain, and fevers <Zenaida Shook - 06/22/18 14:02> Results - Labs Result diagrams: 06/22/18 04:30 06/22/18 04:30 <Reilly Rice - 06/22/18 17:22> Abnormal lab results 06/22/18 06/22/18 Range/Units 04:30 04:30 WBC 23.6 H (4.0-11.0) th/mm3 RBC 2.55 L (4.00-5.30) mil/mm3 Hgb 7.0 L (11.6-15.3) gm/dL Hct 20.4 L* (35.0-46.0) % RDW 18.8 H (11.6-17.2) % Neut % (Auto) 72.4 H (16.0-70.0) % [place] % (Auto) 11.1 H (0.0-8.0) % Neut # (Auto) 17.1 H (1.8-7.7) th/mm3 [place] # (Auto) 2.6 H (0.0-0.9) th/mm3 Eos # (Auto) 0.6 H (0.0-0.4) th/mm3 Baso # (Auto) 0.3 H (0.0-0.2) th/mm3 P[place]enheimer Bodies Present H (None) Sickle Cells 1+ H (None) Potassium 3.4 L (3.5-5.1) meq/L Chloride 108 H (98-107) meq/L BUN 5 L (7-18) mg/dL Calcium 8.3 L (8.5-10.1) mg/dL Short CBC 06/22/18 Range/Units 04:30 WBC 23.6 H (4.0-11.0) th/mm3 Hgb 7.0 L (11.6-15.3) gm/dL Hct 20.4 L* (35.0-46.0) % Plt Count 414 (150-450) th/mm3 BMP 06/22/18 04:30 Sodium 141 Potassium 3.4 L Chloride 108 H Carbon Dioxide 24.9 BUN 5 L Creatinine 0.66 Calcium 8.3 L <Reilly Rice - 06/22/18 17:22> Abnormal lab results 06/22/18 06/22/18 Range/Units 04:30 04:30 WBC 23.6 H (4.0-11.0) th/mm3 RBC 2.55 L (4.00-5.30) mil/mm3 Hgb 7.0 L (11.6-15.3) gm/dL Hct 20.4 L* (35.0-46.0) % RDW 18.8 H (11.6-17.2) % Neut % (Auto) 72.4 H (16.0-70.0) % [place] % (Auto) 11.1 H (0.0-8.0) % Neut # (Auto) 17.1 H (1.8-7.7) th/mm3 [place] # (Auto) 2.6 H (0.0-0.9) th/mm3 Eos # (Auto) 0.6 H (0.0-0.4) th/mm3 Baso # (Auto) 0.3 H (0.0-0.2) th/mm3 [place] Bodies Present H (None) Sickle Cells 1+ H (None) Potassium 3.4 L (3.5-5.1) meq/L Chloride 108 H (98-107) meq/L BUN 5 L (7-18) mg/dL Calcium 8.3 L (8.5-10.1) mg/dL Short CBC 06/22/18 Range/Units 04:30 WBC 23.6 H (4.0-11.0) th/mm3 Hgb 7.0 L (11.6-15.3) gm/dL Hct 20.4 L* (35.0-46.0) % Plt Count 414 (150-450) th/mm3 BMP 06/22/18 04:30 Sodium 141 Potassium 3.4 L Chloride 108 H Carbon Dioxide 24.9 BUN 5 L Creatinine 0.66 Calcium 8.3 L <Zenaida Shook - 06/22/18 11:31> Physical Exam Vital signs: Vital Signs 06/21/18 20:00 06/21/18 23:51 06/22/18 07:52 Temperature 98.3 F 98.4 F 98.3 F Pulse Rate 85 87 80 Respiratory Rate 17 16 16 Blood Pressure 111/61 119/68 104/64 Pulse Oximetry 96 97 97 06/22/18 08:40 06/22/18 12:00 06/22/18 15:34 Temperature 98.3 F 97.7 F Pulse Rate 92 H 90 Respiratory Rate 16 18 Blood Pressure 98/54 L 103/51 L Pulse Oximetry 97 96 97 Intake & Output 06/21/18 06/22/18 06/22/18 18:59 06:59 18:59 Intake Total 1100 / 1100 1580 / 1580 1100 / 1100 Output Total 600 / 600 Balance 1100 / 1100 980 / 980 1100 / 1100 Weight 63.503 kg 63 kg 63 kg Intake: IV 1100 / 1100 1000 / 1000 1100 / 1100 NS Inj 1,000 ML @ 100 mls/hr IV 1000 / 1000 1000 / 1000 .CONT .Q10H ALMA DELIA Rx#:[id number] NS Inj 1,000 ML @ Wide Open IV. 1000 / 1000 SIG BOLUS ALMA DELIA Rx#:[id number] Rocephin Inj 1,000 MG In NS Inj 100 / 100 100 / 100 100 ML @ 200 mls/hr IV.SIG Q24H ALMA DELIA Rx#:[id number] Oral 580 / 580 Output: Urine 600 / 600 Other: Date of Last Bowel Movement 06/20/18 06/20/18 06/22/18 # Bowel Movements 1 Weight On Admission 63 kg <Reilly Rice - 06/22/18 17:22> Vital Signs 06/21/18 13:28 06/21/18 13:36 06/21/18 16:00 Temperature 97.6 F Pulse Rate 83 89 Respiratory Rate 14 18 Blood Pressure 103/61 115/67 Pulse Oximetry 98 98 100 06/21/18 20:00 06/21/18 23:51 06/22/18 07:52 Temperature 98.3 F 98.4 F 98.3 F Pulse Rate 85 87 80 Respiratory Rate 17 16 16 Blood Pressure 111/61 119/68 104/64 Pulse Oximetry 96 97 97 06/22/18 08:40 Temperature Pulse Rate Respiratory Rate Blood Pressure Pulse Oximetry 97 Intake & Output 10/22/18 10/23/18 10/23/18 18:59 06:59 18:59 Intake Total 1100 / 1100 1580 / 1580 1000 / 1000 Output Total 600 / 600 Balance 1100 / 1100 980 / 980 1000 / 1000 Weight 63.503 kg 63 kg Intake: IV 1100 / 1100 1000 / 1000 1000 / 1000 NS Inj 1,000 ML @ 100 mls/hr IV 1000 / 1000 1000 / 1000 .CONT .Q10H ALMA DELIA Rx#:[id number] NS Inj 1,000 ML @ Wide Open IV. 1000 / 1000 SIG BOLUS ALMA DELIA Rx#:[id number] Rocephin Inj 1,000 MG In NS Inj 100 / 100 100 ML @ 200 mls/hr IV.SIG ONCE ONE Rx#:[id number] Oral 580 / 580 Output: Urine 600 / 600 Other: Date of Last Bowel Movement 06/20/18 06/20/18 06/22/18 # Bowel Movements 1 <Zenaida Shook Michelle - 06/22/18 11:31> Narrative: GENERAL: Well-nourished, well-developed patient. No acute distress. SKIN: Warm and dry. No rash. No jaundice. EYES: Noticeable scleral icterus. Improved from prior. No injection or drainage. PERRLA. EOMI. NECK: Supple, trachea midline. No JVD or lymphadenopathy. CARDIOVASCULAR: Regular rate and rhythm without obvious murmurs, gallops, or rubs. RESPIRATORY: Breath sounds equal bilaterally. No accessory muscle use. CTAB. GASTROINTESTINAL: Abdomen soft, non-tender, nondistended. BS WNL. MUSCULOSKELETAL: No cyanosis or edema. Strength grossly WNL. No swelling of digits. BACK: Nontender without obvious deformity. No CVA tenderness. NEURO/PSYCH: Afocal. Awake, alert, and oriented x3. <Zenaida Shook Michelle - 06/22/18 14:02> Assessment and Plan - Assessment (1) Bacteremia Code(s): R78.81 - Bacteremia Status: Acute (2) Sickle cell anemia with pain Code(s): D57.00 - Hb-SS disease with crisis, unspecified Status: Acute (3) Nutrition, metabolism, and development symptoms Code(s): R63.8 - Other symptoms and signs concerning food and fluid intake Status: Acute <Reilly Rice - 06/22/18 17:22> (1) Bacteremia Code(s): R78.81 - Bacteremia Status: Acute Plan: Patient is a 27-year-old female with a history of sickle cell anemia admitted after meeting SIRS criteria in the setting of generalized pain and ear pain. Patient with acute on chronic leukocytosis, white blood cell 29.1 improved to 23.6 today Blood cultures 4/4 growing gram-positive cocci, staphylococcal epidermidis Repeat blood cultures ordered Continue Rocephin 1g q24h (2) Sickle cell anemia with pain Code(s): D57.00 - Hb-SS disease with crisis, unspecified Status: Acute Plan: This patient suffers from sickle cell anemia and is well-known to the emergency department for several visits due to sickle cell crisis. Patient reports generalized pain in her muscles but denies any chest pain, flank pain, or new digit swelling. -Hem/onc consulted, appreciate recommendations - Continue NS 100mls/hr -Hb/Hct 7.0/20.4, due to possible dilution effect from fluids, will discuss with hem/onc about threshold to transfuse -Continue home pain medication; [place] 10/325 every 6 hours scheduled -Additional pain control with: - Benadryl 25mg IV push q4h PRN for itching or rash -Acetaminophen 650 every 6 as needed for pain scale 1-2 -[place] 5/325 every 4 as needed for pain scale 3-5 -[place] 7.5/325 every 4 as needed for pain scale 6 through 10 - Increase Dilaudid 3mg IV every 4 as needed for breakthrough pain (3) Nutrition, metabolism, and development symptoms Code(s): R63.8 - Other symptoms and signs concerning food and fluid intake Status: Acute Plan: Fluids: NS 100mls/hr Electrolytes: Replete as needed Nutrition: Regular diet DVT prophylaxis: SCDs and early ambulation <Zenaida Shook - 06/22/18 13:50> - Attending Attestation The exam, history, and the medical decision-making described in the above note were completed with the assistance of the resident physician. I reviewed and agree with the findings presented. I attest that I had a [id number] encounter with the patient on the same day, and personally performed and documented my assessment and findings in the medical record. <Reilly Rice - 06/22/18 17:22>
[2018-06-22 19:48] LABS: Hematocrit 18.8 % (35.0-46.0); Hemoglobin 6.3 gm/dL (11.6-15.3)
[2018-06-22] MEDS: Zolpidem Tartrate 5 MG Tablet PO SCH (20:54)
[2018-06-23 03:15] LABS: Hemoglobin 7.3 gm/dL (11.6-15.3); Mean Corpuscular HGB Conc 35.1 % (32.0-36.0); Mean Corpuscular Hemoglobin 27.9 pg (27.0-34.0); Mean Corpuscular Volume 79.7 fL (80.0-100.0); Platelet Count 400 th/mm3 (150-450); Red Cell Distribution Width 19.3 % (11.6-17.2)
[2018-06-23 03:18] LABS: Hematocrit 20.7 % (35.0-46.0)
[2018-06-23 03:29] LABS: Anion Gap 4 meq/L (5-15); Blood Urea Nitrogen 6 mg/dL (7-18); Calcium 7.8 mg/dL (8.5-10.1); Carbon Dioxide 26.8 meq/L (21.0-32.0); Chloride 111 meq/L (98-107); Glomerular Filtration Rate Greater Than 89 mL/min (>89); Glucose,Random 93 mg/dL (74-106); Potassium 4.1 meq/L (3.5-5.1); Sodium 142 meq/L (136-145)
[2018-06-23] MEDS: HYDROmorphone PF Inj 2 MG/ML Vial IV.PUSH PRN ×6 (03:50→23:34)
[2018-06-23] MEDS: Sod Chloride 0.9% Inj 1,000 ML IV.CONT SCH ×4 (05:16→20:49)
[2018-06-23] MEDS: Folic Acid 1 MG Tablet PO SCH (09:55)
--- NOTE | 2018-06-23 10:28 | P.PNFP ---
Subjective Interval history: Patient reports being nauseated overnight. States that her nurse was unable to get a hold of the residents. Patient states that Zofran relieves her nausea. She is reports generalized weakness and mild epigastric pain, but no other symptoms. States that her pain is well controlled on current pain regimen. Patient is status post 1 unit of packed red blood cells. She denies fevers, chest pain, and SOB. Results - Labs Result diagrams: 06/23/18 02:51 06/23/18 02:51 Abnormal lab results 06/22/18 06/22/18 06/22/18 Range/Units 19:30 22:00 22:00 WBC (4.0-11.0) th/mm3 RBC (4.00-5.30) mil/mm3 Hgb 6.3 L* (11.6-15.3) gm/dL Hct 18.8 L* (35.0-46.0) % MCV (80.0-100.0) fL RDW (11.6-17.2) % Chloride (98-107) meq/L Anion Gap (5-15) meq/L BUN (7-18) mg/dL Calcium (8.5-10.1) mg/dL MTS Gel Crossmatch See Detail See Detail 06/23/18 06/23/18 Range/Units 02:51 02:51 WBC 20.0 H (4.0-11.0) th/mm3 RBC 2.60 L (4.00-5.30) mil/mm3 Hgb 7.3 L (11.6-15.3) gm/dL Hct 20.7 L* (35.0-46.0) % MCV 79.7 L (80.0-100.0) fL RDW 19.3 H (11.6-17.2) % Chloride 111 H (98-107) meq/L Anion Gap 4 L (5-15) meq/L BUN 6 L (7-18) mg/dL Calcium 7.8 L (8.5-10.1) mg/dL MTS Gel Crossmatch Short CBC 06/22/18 06/23/18 Range/Units 19:30 02:51 WBC 20.0 H (4.0-11.0) th/mm3 Hgb 6.3 L* 7.3 L (11.6-15.3) gm/dL Hct 18.8 L* 20.7 L* (35.0-46.0) % Plt Count 400 (150-450) th/mm3 BMP 06/23/18 02:51 Sodium 142 Potassium 4.1 Chloride 111 H Carbon Dioxide 26.8 BUN 6 L Creatinine 0.72 Calcium 7.8 L Physical Exam Vital signs: Vital Signs 06/22/18 12:00 06/22/18 15:34 06/22/18 19:57 Temperature 98.3 F 97.7 F 98.0 F Pulse Rate 92 H 90 95 H Respiratory Rate 16 18 17 Blood Pressure 98/54 L 103/51 L 109/58 L Pulse Oximetry 96 97 97 06/22/18 20:00 06/23/18 00:05 06/23/18 00:11 Temperature 99.9 F H 99.9 F H Pulse Rate 107 H 107 H Respiratory Rate 16 18 18 Blood Pressure 106/56 L 100/56 L Pulse Oximetry 96 06/23/18 00:25 06/23/18 02:52 06/23/18 08:00 Temperature 99.9 F H 100.1 F H 100.5 F H Pulse Rate 104 H 105 H 85 Respiratory Rate 16 16 20 Blood Pressure 101/55 L 106/60 119/65 Pulse Oximetry 95 Intake & Output 06/22/18 06/23/18 06/23/18 18:59 06:59 18:59 Intake Total 2059 / 2059 3180 / 3180 Output Total 1000 / 1000 Balance 2059 / 2059 2180 / 2180 Weight 63 kg 63 kg Intake: IV 1100 / 1100 1999 / 1999 NS Inj 1,000 ML @ 100 mls/hr IV 1000 / 1000 1999 .CONT .Q10H [facility] Rx#:[id number] Rocephin Inj 1,000 MG In NS Inj 100 / 100 100 ML @ 200 mls/hr IV.SIG Q24H [facility] Rx#:[id number] Oral 960 / 960 780 / 780 Intake (Blood Product) Amt 400 / 400 Rbc As-3 Leukoreduced Unit 400 / 400 [id number] Output: Urine 1000 / 1000 Other: # Voids 4 Date of Last Bowel Movement 06/22/18 06/22/18 # Bowel Movements 1 Weight On Admission 63 kg Narrative: GENERAL: Well-nourished, well-developed patient. No acute distress. SKIN: Warm and dry. No rash. No jaundice. EYES: No scleral icterus. No injection or drainage. PERRLA. EOMI. NECK: Supple, trachea midline. No JVD or lymphadenopathy. CARDIOVASCULAR: Regular rate and rhythm without obvious murmurs, gallops, or rubs. RESPIRATORY: Breath sounds equal bilaterally. No accessory muscle use. CTAB. GASTROINTESTINAL: Abdomen soft, non-tender, nondistended. BS WNL. MUSCULOSKELETAL: No cyanosis or edema. Strength grossly WNL. No swelling of digits. BACK: Nontender without obvious deformity. No CVA tenderness. NEURO/PSYCH: Afocal. Awake, alert, and oriented x3. Assessment and Plan - Assessment (1) Bacteremia Code(s): R78.81 - Bacteremia Status: Acute Plan: Patient is a 27-year-old female with a history of sickle cell anemia admitted after meeting SIRS criteria in the setting of generalized pain and ear pain. Patient with acute on chronic leukocytosis, WBC trending down Blood cultures / growing staphylococcus coag negative, most likely contaminant Repeat blood cultures pending Continue Rocephin 1g q24h (06/22-) Zofran 4mg q6h PRN for N/V (2) Sickle cell anemia with pain Code(s): D57.00 - Hb-SS disease with crisis, unspecified Status: Acute Plan: This patient suffers from sickle cell anemia and is well-known to the emergency department for several visits due to sickle cell crisis. Patient reports generalized pain in her muscles but denies any chest pain, flank pain, or new digit swelling. -Hem/onc consulted, appreciate recommendations - Continue NS 100mls/hr -Hb/Hct 7.3/20.7 s/p 1 unit of PRBCs, recheck H &H this afternoon, baseline Hb ~ 8 -Continue home pain medication; [place] 10/325 every 6 hours scheduled -Additional pain control with: - Benadryl 25mg IV push q4h PRN for itching or rash -Acetaminophen 650 every 6 as needed for pain scale 1-2 -[place] 5/325 every 4 as needed for pain scale 3-5 -[place] 7.5/325 every 4 as needed for pain scale 6 through 10 - Continue Dilaudid 3mg IV every 4 as needed for breakthrough pain (3) Nutrition, metabolism, and development symptoms Code(s): R63.8 - Other symptoms and signs concerning food and fluid intake Status: Acute Plan: Fluids: NS 100mls/hr Electrolytes: Replete as needed Nutrition: Regular diet DVT prophylaxis: SCDs and early ambulation
[2018-06-23] MEDS: Senna/Docusate Sodium 8.6/50 MG Tablet PO SCH ×2 (11:45→22:13)
[2018-06-23 14:42] LABS: Hemoglobin 7.3 gm/dL (11.6-15.3)
[2018-06-23 14:45] LABS: Hematocrit 20.7 % (35.0-46.0)
[2018-06-23] MEDS: Zolpidem Tartrate 5 MG Tablet PO SCH (20:48)
[2018-06-24] MEDS: HYDROmorphone PF Inj 2 MG/ML Vial IV.PUSH PRN ×5 (03:29→20:10)
[2018-06-24] MEDS: Sod Chloride 0.9% Inj 1,000 ML IV.CONT SCH ×3 (03:36→20:09)
[2018-06-24 04:56] LABS: Baso # (Auto) 0.2 th/mm3 (0.0-0.2); Baso % (Auto) 1.1 % (0.0-2.0); Eos # (Auto) 0.8 th/mm3 (0.0-0.4); Eos % (Auto) 3.8 % (0.0-4.0); Lymph # (Auto) 4.9 th/mm3 (1.0-4.8); Lymph % (Auto) 22.8 % (9.0-44.0); Mean Corpuscular HGB Conc 34.7 % (32.0-36.0); Mean Corpuscular Hemoglobin 27.3 pg (27.0-34.0); Mean Corpuscular Volume 78.6 fL (80.0-100.0); Mean Platelet Volume 7.4 fL (7.0-11.0); Mono # (Auto) 2.6 th/mm3 (0.0-0.9); Mono % (Auto) 12.2 % (0.0-8.0); Neut # (Auto) 12.8 th/mm3 (1.8-7.7); Neut % (Auto) 60.1 % (16.0-70.0); Platelet Count 443 th/mm3 (150-450); Red Blood Count 2.55 mil/mm3 (4.00-5.30); Red Cell Distribution Width 20.1 % (11.6-17.2); White Blood Count 21.3 th/mm3 (4.0-11.0)
[2018-06-24 05:03] LABS: Hematocrit 20.1 % (35.0-46.0)
[2018-06-24 05:16] LABS: Anion Gap 7 meq/L (5-15); Blood Urea Nitrogen 6 mg/dL (7-18); Calcium 8.1 mg/dL (8.5-10.1); Carbon Dioxide 25.6 meq/L (21.0-32.0); Chloride 109 meq/L (98-107); Glomerular Filtration Rate Greater Than 89 mL/min (>89); Glucose,Random 94 mg/dL (74-106); Iron 143 mcg/dL (50-170); Potassium 3.3 meq/L (3.5-5.1); Sodium 142 meq/L (136-145)
[2018-06-24 05:31] LABS: % Iron Saturation 92.9 % (20-50); Ferritin 5290 ng/mL (8-252); Total Iron Binding Capacity 154 mcg/dL (250-450)
--- NOTE | 2018-06-24 06:30 | MB ---
cc: Benny Nova MD DATE: 06/23/2018 REASON FOR CONSULTATION: Consult requested by family practice resident for evaluation of sickle cell painful crisis. HISTORY OF PRESENT ILLNESS: This is a 28-year-old -Turk[place] female. She has a history of sickle cell anemia. She has multiple painful crisis. She has been previously treated with blood transfusions. She has developed transfusion hemosiderosis. She used to be under the care of Dr. Oropeza who has now retired. 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. The patient came into the emergency room complaining of severe pain. She is admitted for sickle cell painful crisis. I have been asked to see her for further evaluation. The patient denies any fever. Her blood culture is positive for Staph epi, which could be contaminant. She is on the antibiotics. She denies any chest pain. She denies any shortness of breath. The rest of the review of systems is negative. PAST MEDICAL HISTORY: Sickle cell anemia with multiple painful crisis, transfusion hemosiderosis, cardiomyopathy with ejection fraction of around 40%, history of asthma. PAST SURGICAL HISTORY: Cholecystectomy, [id number] placement. ALLERGIES: CODEINE. FAMILY HISTORY: Significant for sickle cell disease. SOCIAL HISTORY: The patient does not smoke cigarettes. Occasionally drinks alcohol. PHYSICAL EXAMINATION: GENERAL: Reveals a well-developed -Turkmen female in no apparent distress. VITAL SIGNS: Temperature 98.5, heart rate is 97, blood pressure 107/58. HEENT: PERRLA. EOMI. Anicteric. No oral lesions are noted. NECK: No lymphadenopathy noted. LUNGS: Clear. No wheezing, rhonchi, or rales. CARDIOVASCULAR: Regular rate and rhythm. ABDOMEN: Soft, nontender. No hepatosplenomegaly. EXTREMITIES: No pedal edema. NEUROLOGIC: Awake, alert, oriented x 3. SKIN: No significant lesions are noted. ASSESSMENT: 1. Sickle cell painful crisis. 2. History of sickle cell disease. 3. Transfusion hemosiderosis. 4. Staphylococcus epidermidis sepsis, could be contaminant. PLAN: I have reviewed her available records, and I have discussed with the patient regarding the sickle cell painful crisis. The patient is currently receiving narcotics, antibiotics, hydration, and oxygen. Her hemoglobin was 6.3 yesterday and she had received 1 unit of blood transfusion. Her hemoglobin has improved to 7.3. The comprehensive metabolic profile is significant for total bilirubin of 1.6, AST is 44, total protein is 8.6 and chloride is 109. I did receive a call from the family practice resident regarding indication for blood transfusion. I advised her that if her hemoglobin is less than 7, then we need to give her only 1 unit of blood transfusion. She has transfusion hemosiderosis. Her serum ferritin used to be very high. I will Recheck ferritin and iron studies for further evaluation. I agree with your the management for sickle cell painful crisis. MD JAYSHREE Juarez/sarah , 11:51 PM , 12:01 AM MTDD
[2018-06-24] MEDS: Senna/Docusate Sodium 8.6/50 MG Tablet PO SCH ×2 (07:59→20:11)
[2018-06-24] MEDS: Folic Acid 1 MG Tablet PO SCH (07:59)
[2018-06-24 08:21] LABS: Eosinophils 3 % (0-4); Lymphocytes 26 % (9-44); Monocytes 12 % (0-8); Myelocytes 1 % (0-0); Platelet Estimate Normal (Normal); Platelet Morphology Normal (Normal); Sickle Cells 1+; Tallied Nucleated RBC 3 (0-0)
[2018-06-24 08:22] LABS: Basophilic Stippling Moderate; Howell-Jolly Bodies Present; Polychromasia 2.6 % (0.0-1.9)
--- NOTE | 2018-06-24 09:55 | P.PNFP ---
Subjective Interval history: Patient seen at bedside this morning. Patient reports that she continues to have generalized pain but has not vomited overnight. She continues to feel tired but does report that her current pain control regimen is working well for her. It was discussed the patient that she is currently iron overloaded and that we are avoiding transfusing her unless necessary. She agrees with this plan as she understands her disease process well. Patient has no other concerns at this time. Patient denies any subjective fevers, chills, shortness of breath, chest pain, nausea, or vomiting. All questions were answered to the patient's satisfaction. Results - Labs Result diagrams: 06/24/18 04:51 06/24/18 04:51 Abnormal lab results 06/23/18 06/24/18 06/24/18 Range/Units 14:15 04:51 04:51 WBC 21.3 H (4.0-11.0) th/mm3 RBC 2.55 L (4.00-5.30) mil/mm3 Hgb 7.3 L 7.0 L (11.6-15.3) gm/dL Hct 20.7 L* 20.1 L* (35.0-46.0) % MCV 78.6 L (80.0-100.0) fL RDW 20.1 H (11.6-17.2) % [place] % (Auto) 12.2 H (0.0-8.0) % Neut # (Auto) 12.8 H (1.8-7.7) th/mm3 Lymph # (Auto) 4.9 H (1.0-4.8) th/mm3 [place] # (Auto) 2.6 H (0.0-0.9) th/mm3 Eos # (Auto) 0.8 H (0.0-0.4) th/mm3 Monocytes % (Manual) 12 H (0-8) % Myelocytes % (Man) 1 H (0-0) % Abs Neuts (Manual) 12.1 H (1.8-7.7) th/mm3 Nucleated RBCs/100 WBC 3 H (0-0) /100 WBC Polychromasia 2.6 H (0.0-1.9) % Basophilic Stippling Moderate H (None) Sickle Cells 1+ H (None) [place] Bodies Present H (None) Keratocytes Occ H (None) Potassium 3.3 L D (3.5-5.1) meq/L Chloride 109 H (98-107) meq/L BUN 6 L (7-18) mg/dL Calcium 8.1 L (8.5-10.1) mg/dL TIBC 154 L (250-450) mcg/dL % Saturation 92.9 H (20-50) % Ferritin 5290 H (8-252) ng/mL Short CBC 06/23/18 06/24/18 Range/Units 14:15 04:51 WBC 21.3 H (4.0-11.0) th/mm3 Hgb 7.3 L 7.0 L (11.6-15.3) gm/dL Hct 20.7 L* 20.1 L* (35.0-46.0) % Plt Count 443 (150-450) th/mm3 BMP 06/24/18 04:51 Sodium 142 Potassium 3.3 L D Chloride 109 H Carbon Dioxide 25.6 BUN 6 L Creatinine 0.70 Calcium 8.1 L Physical Exam Vital signs: Vital Signs 06/23/18 12:00 06/23/18 15:50 06/23/18 16:00 Temperature 98.5 F 98.7 F Pulse Rate 97 H 93 H Respiratory Rate 20 17 Blood Pressure 107/58 L 121/72 Pulse Oximetry 96 96 97 06/23/18 20:00 06/24/18 00:00 06/24/18 08:00 Temperature 98.9 F 98.1 F 98.3 F Pulse Rate 104 H 93 H 92 H Respiratory Rate 20 20 18 Blood Pressure 102/59 L 116/56 L 123/74 Pulse Oximetry 93 L 99 99 Intake & Output 06/23/18 06/24/18 06/24/18 18:59 06:59 18:59 Intake Total 820 / 820 1480 / 1480 Balance 820 / 820 1480 / 1480 Intake: IV 100 / 100 1000 / 1000 NS Inj 1,000 ML @ 100 mls/hr IV 1000 / 1000 .CONT .Q10H [facility] Rx#:[id number] Rocephin Inj 1,000 MG In NS Inj 100 / 100 100 ML @ 200 mls/hr IV.SIG Q24H [facility]MA [facility] Rx#:[id number] Oral 720 / 720 480 / 480 Other: # Voids 4 1 Narrative: GENERAL: Well-nourished, well-developed patient. No acute distress. SKIN: Warm and dry. No rash. No jaundice. EYES: Minimal scleral icterus. No injection or drainage. PERRLA. EOMI. NECK: Supple, trachea midline. No JVD or lymphadenopathy. CARDIOVASCULAR: Regular rate and rhythm without obvious murmurs, gallops, or rubs. Patient has place port on right side of chest. RESPIRATORY: Breath sounds equal bilaterally. No accessory muscle use. CTAB. GASTROINTESTINAL: Abdomen soft, non-tender, nondistended. BS WNL. MUSCULOSKELETAL: No cyanosis or edema. Strength grossly WNL. No swelling of digits. BACK: Nontender without obvious deformity. No CVA tenderness. NEURO/PSYCH: Afocal. Awake, alert, and oriented x3. Assessment and Plan - Assessment (1) Bacteremia Code(s): R78.81 - Bacteremia Status: Acute Plan: Patient is a 27-year-old female with a history of sickle cell anemia admitted after meeting SIRS criteria in the setting of generalized pain and ear pain. Patient with acute on chronic leukocytosis, WBC trending down Blood cultures / growing staphylococcus coag negative, most likely contaminant Repeat blood cultures pending Continue Rocephin 1g q24h (06/22-) Zofran 4mg q6h PRN for N/V (2) Sickle cell anemia with pain Code(s): D57.00 - Hb-SS disease with crisis, unspecified Status: Acute Plan: This patient suffers from sickle cell anemia and is well-known to the emergency department for several visits due to sickle cell crisis. Patient reports generalized pain in her muscles but denies any chest pain, flank pain, or new digit swelling. Patient is status post 1 unit of packed red blood cells. -Hem/onc on board. Transfuse only if patient drops below 7 hemoglobin again. Patient currently iron overloaded with a ferritin of 5290 as well as Pap and on her body seen on smear. - Continue NS 100mls/hr -Hb/Hct 7.0/20.1 s/p 1 unit of PRBCs, recheck H &H this afternoon, baseline Hb ~ 8 -Continue home pain medication; [place] 10/325 every 6 hours scheduled -Additional pain control with: - Benadryl 25mg IV push q4h PRN for itching or rash -Acetaminophen 650 every 6 as needed for pain scale 1-2 -[place] 5/325 every 4 as needed for pain scale 3-5 -[place] 7.5/325 every 4 as needed for pain scale 6 through 10 - Continue Dilaudid 3mg IV every 4 as needed for breakthrough pain (3) Nutrition, metabolism, and development symptoms Code(s): R63.8 - Other symptoms and signs concerning food and fluid intake Status: Acute Plan: Fluids: NS 100mls/hr Electrolytes: Replete as needed Nutrition: Regular diet DVT prophylaxis: SCDs and early ambulation
[2018-06-24] MEDS ORDERED: Potassium Chlor 20 mEq Premix 20 MEQ/100 ML PIGGYBACK IV.SIG ONE (12:00)
--- NOTE | 2018-06-24 14:24 | P.PNONC ---
Subjective Interval history: Afebrile. Pt sleeping on approach, wakens easily to voice. Reports continued pain all over. Denies chest pain. Admits to occasional dyspnea. She has had nausea and vomiting, relieved with medications. Objective Vital Signs/Intake & Output: Vital Signs 06/23/18 15:50 06/23/18 16:00 06/23/18 20:00 Temperature 98.7 F 98.9 F Pulse Rate 93 H 104 H Respiratory Rate 17 20 Blood Pressure 121/72 102/59 L Pulse Oximetry 96 97 93 L 06/24/18 00:00 06/24/18 08:00 06/24/18 12:00 Temperature 98.1 F 98.3 F 98.5 F Pulse Rate 93 H 92 H 88 Respiratory Rate 20 18 16 Blood Pressure 116/56 L 123/74 101/56 L Pulse Oximetry 99 95 96 Intake & Output 06/23/18 06/24/18 06/24/18 18:59 06:59 18:59 Intake Total 820 / 820 1480 / 1480 1000 / 1000 Balance 820 / 820 1480 / 1480 1000 / 1000 Intake: IV 100 / 100 1000 / 1000 1000 / 1000 NS Inj 1,000 ML @ 100 mls/hr IV 1000 / 1000 .CONT .Q10H [facility] Rx#:[id number] Rocephin Inj 1,000 MG In NS Inj 100 / 100 100 ML @ 200 mls/hr IV.SIG Q24H [facility] Rx#:[id number] Oral 720 / 720 480 / 480 Other: # Voids 4 1 Result Diagrams: 06/24/18 15:46 06/24/18 04:51 Laboratory Results: Laboratory Results - last 24 hr 06/23/18 06/24/18 06/24/18 14:15 04:51 04:51 WBC 21.3 H RBC 2.55 L Hgb 7.3 L 7.0 L Hct 20.7 L* 20.1 L* MCV 78.6 L MCH 27.3 MCHC 34.7 RDW 20.1 H Plt Count 443 MPV 7.4 Prelim Diff (Auto) Slide review pending Neut % (Auto) 60.1 Lymph % (Auto) 22.8 [place] % (Auto) 12.2 H Eos % (Auto) 3.8 Baso % (Auto) 1.1 Neut # (Auto) 12.8 H Lymph # (Auto) 4.9 H [place] # (Auto) 2.6 H Eos # (Auto) 0.8 H Baso # (Auto) 0.2 WBC Differential Manual diff final Seg Neuts % (Manual) 56 Lymphocytes % (Manual) 26 Monocytes % (Manual) 12 H Eosinophils % (Manual) 3 Basophils % (Manual) 2 Myelocytes % (Man) 1 H Abs Neuts (Manual) 12.1 H Nucleated RBCs/100 WBC 3 H Differential Comment . Platelet Estimate Normal Platelet Morphology Normal Polychromasia 2.6 H Basophilic Stippling Moderate H Sickle Cells 1+ H [place] Bodies Present H Keratocytes Occ H Sodium 142 Potassium 3.3 L D Chloride 109 H Carbon Dioxide 25.6 Anion Gap 7 BUN 6 L Creatinine 0.70 Estimated GFR Greater than 89 Random Glucose 94 Calcium 8.1 L Iron 143 TIBC 154 L % Saturation 92.9 H Ferritin 5290 H Culture Results: Microbiology 06/22/18 14:17 Aerobic Blood Culture - Preliminary Blood - Peripheral gram positive cocci Anaerobic Blood Culture - Preliminary Staphylococcus coag negative 06/21/18 09:22 Aerobic Blood Culture - Final Blood - Peripheral Staphylococcus epidermidis Anaerobic Blood Culture - Final Staphylococcus coag negative 06/21/18 09:17 Aerobic Blood Culture - Final Blood - Peripheral Staphylococcus coag negative Anaerobic Blood Culture - Final Staphylococcus epidermidis Medications: Active Medications Generic Name Dose Route Start Last Admin Trade Name Freq PRN Reason Stop Dose Admin Hydrocodone Bitart/Acetaminophen 1 tab 06/21/18 15:00 06/24/18 08:00 [place] 10/325 PO Not Given Q6H ALMA [facility]IA Folic Acid 1 mg 06/21/18 14:15 06/24/18 07:59 Folic Acid PO 1 mg DAILY ALMA DELIA Administration Hydromorphone HCl 3 mg 06/22/18 08:38 06/24/18 11:56 Dilaudid Pf Inj IV.PUSH 3 mg Q4H PRN Administration BREAKTHROUGH PAIN Ceftriaxone Sodium 1,000 mg/ 100 mls @ 200 mls/hr 06/22/18 15:00 06/23/18 15: 38 Sodium Chloride IV.SIG Infused Q24H ALMA DELIA Infusion Sodium Chloride 1,000 mls @ 100 mls/hr 06/23/18 11:15 06/24/18 03:36 Ns Inj IV.CONT 100 mls/hr .Q10H ALMA DELIA Administration Promethazine HCl 25 mg 06/24/18 12:39 06/24/18 13:40 Phenergan Inj IM 25 mg Q6H PRN Administration ITCHING Senna/Docusate Sodium 1 tab 06/22/18 09:00 06/24/18 07:59 [place]ace PO 1 tab BID ALMA DELIA Administration Sodium Chloride 2 ml 06/21/18 21:00 06/24/18 09:59 Ns Flush IV.FLUSH Not Given BID [facility]MA DELIA Zolpidem Tartrate 5 mg 06/21/18 21:00 06/23/18 20:48 Ambien PO 5 mg HS ALMA DELIA Administration Objective Remarks: GENERAL: Well-nourished, well-developed young female patient, in no acute distress. SKIN: Warm and dry. HEAD: Normocephalic. EYES: No scleral icterus. No injection or drainage. NECK: Supple, trachea midline. CARDIOVASCULAR: Regular rate and rhythm without murmurs. RESPIRATORY: Posterior Breath sounds clear, equal bilaterally. No accessory muscle use. GASTROINTESTINAL: Abdomen soft, non-tender, nondistended. EXTREMITIES: No cyanosis, or edema. MUSCULOSKELETAL: Adequate muscle tone. NEUROLOGICAL: No obvious focal deficit. Awakens easily, alert, and oriented x3. PSYCHIATRIC: Appropriate mood and affect; insight and judgment normal. Assessment/Plan - Plan Ms. Frazier is a pleasant 27 year old female patient with history of sickle cell anemia. Currently admitted for pain crisis. 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 Recommendations: 1. Sickle cell anemia, patient with iron overload. She has received 1 unit of pRBC during this admission. Avoid blood transfusions if possible. Will plan to not transfuse unless hgb < 6.0 or patient becomes symptomatic. 2. Sepsis, positive blood cultures. Currently on ceftriaxone. Management per attending. 3. Pain, improved with medications, monitor for oversedation. 4. Continue supportive care. - Attending Statement The exam, history, and the medical decision-making described in the above note were completed with the assistance of the mid-level provider. I reviewed and agree with the findings presented. I attest that I had a [id number] encounter with the patient on the same day, and personally performed and documented my assessment and findings in the medical record. continues to have pain. no signs of acute chest syndrome. continue supportive present plan. Ferritin >5,000 Resume exjade as outpt
[2018-06-24 16:21] LABS: Hemoglobin 6.8 gm/dL (11.6-15.3)
[2018-06-24 16:22] LABS: Hematocrit 19.9 % (35.0-46.0)
[2018-06-24] MEDS: Zolpidem Tartrate 5 MG Tablet PO SCH (20:09)
[2018-06-25] MEDS: HYDROmorphone PF Inj 2 MG/ML Vial IV.PUSH PRN ×6 (00:02→21:55)
[2018-06-25 05:08] LABS: Baso # (Auto) 0.2 th/mm3 (0.0-0.2); Baso % (Auto) 1.4 % (0.0-2.0); Eos # (Auto) 0.9 th/mm3 (0.0-0.4); Eos % (Auto) 5.7 % (0.0-4.0); Lymph # (Auto) 4.9 th/mm3 (1.0-4.8); Lymph % (Auto) 30.6 % (9.0-44.0); Mean Corpuscular HGB Conc 34.9 % (32.0-36.0); Mean Corpuscular Hemoglobin 27.6 pg (27.0-34.0); Mean Corpuscular Volume 79.1 fL (80.0-100.0); Mean Platelet Volume 7.7 fL (7.0-11.0); Mono % (Auto) 12.6 % (0.0-8.0); Neut # (Auto) 8.1 th/mm3 (1.8-7.7); Neut % (Auto) 49.7 % (16.0-70.0); Platelet Count 438 th/mm3 (150-450); Red Blood Count 2.41 mil/mm3 (4.00-5.30); Red Cell Distribution Width 20.1 % (11.6-17.2); White Blood Count 16.2 th/mm3 (4.0-11.0)
[2018-06-25 05:13] LABS: Hematocrit 19.1 % (35.0-46.0); Hemoglobin 6.7 gm/dL (11.6-15.3)
[2018-06-25] MEDS: Sod Chloride 0.9% Inj 1,000 ML IV.CONT SCH ×3 (05:29→22:02)
[2018-06-25 05:37] LABS: Alanine Aminotransferase 15 U/L (10-53); Albumin 3.2 g/dL (3.4-5.0); Anion Gap 5 meq/L (5-15); Aspartate Aminotransferase 41 U/L (15-37); Blood Urea Nitrogen 4 mg/dL (7-18); Calcium 8.2 mg/dL (8.5-10.1); Carbon Dioxide 26.6 meq/L (21.0-32.0); Chloride 111 meq/L (98-107); Glomerular Filtration Rate Greater Than 89 mL/min (>89); Glucose,Random 106 mg/dL (74-106); Potassium 3.7 meq/L (3.5-5.1); Sodium 143 meq/L (136-145)
[2018-06-25 05:39] LABS: Alkaline Phosphatase 71 U/L (45-117); Total Protein 6.7 g/dL (6.4-8.2)
--- NOTE | 2018-06-25 09:56 | P.PNFP ---
Subjective Interval history: No acute events overnight. Patient lying in bed. States that she is still very nauseated. Dry heaving. Only able to tolerate yuliet cesar. Has not tried eating yet. States that her pain is controlled with Dilaudid. Denies CP, SOB, and fevers. Results - Labs Result diagrams: 06/25/18 04:15 06/25/18 04:15 Abnormal lab results 06/22/18 06/24/18 06/25/18 Range/Units 22:00 15:46 04:15 WBC 16.2 H (4.0-11.0) th/mm3 RBC 2.41 L (4.00-5.30) mil/mm3 Hgb 6.8 L* 6.7 L* (11.6-15.3) gm/dL Hct 19.9 L* 19.1 L* (35.0-46.0) % MCV 79.1 L (80.0-100.0) fL RDW 20.1 H (11.6-17.2) % [place] % (Auto) 12.6 H (0.0-8.0) % Eos % (Auto) 5.7 H (0.0-4.0) % Neut # (Auto) 8.1 H (1.8-7.7) th/mm3 Lymph # (Auto) 4.9 H (1.0-4.8) th/mm3 [place] # (Auto) 2.0 H (0.0-0.9) th/mm3 Eos # (Auto) 0.9 H (0.0-0.4) th/mm3 Chloride (98-107) meq/L BUN (7-18) mg/dL Calcium (8.5-10.1) mg/dL Total Bilirubin (0.2-1.0) mg/dL AST (15-37) U/L Albumin (3.4-5.0) g/dL MTS Gel Crossmatch See Detail 06/25/18 Range/Units 04:15 WBC (4.0-11.0) th/mm3 RBC (4.00-5.30) mil/mm3 Hgb (11.6-15.3) gm/dL Hct (35.0-46.0) % MCV (80.0-100.0) fL RDW (11.6-17.2) % [place] % (Auto) (0.0-8.0) % Eos % (Auto) (0.0-4.0) % Neut # (Auto) (1.8-7.7) th/mm3 Lymph # (Auto) (1.0-4.8) th/mm3 [place] # (Auto) (0.0-0.9) th/mm3 Eos # (Auto) (0.0-0.4) th/mm3 Chloride 111 H (98-107) meq/L BUN 4 L (7-18) mg/dL Calcium 8.2 L (8.5-10.1) mg/dL Total Bilirubin 1.4 H (0.2-1.0) mg/dL AST 41 H (15-37) U/L Albumin 3.2 L (3.4-5.0) g/dL MTS Gel Crossmatch Short CBC 06/24/18 06/25/18 Range/Units 15:46 04:15 WBC 16.2 H (4.0-11.0) th/mm3 Hgb 6.8 L* 6.7 L* (11.6-15.3) gm/dL Hct 19.9 L* 19.1 L* (35.0-46.0) % Plt Count 438 (150-450) th/mm3 BMP 06/25/18 04:15 Sodium 143 Potassium 3.7 Chloride 111 H Carbon Dioxide 26.6 BUN 4 L Creatinine 0.62 Calcium 8.2 L Liver Function 06/25/18 Range/Units 04:15 Total Bilirubin 1.4 H (0.2-1.0) mg/dL AST 41 H (15-37) U/L ALT 15 (10-53) U/L Alkaline Phosphatase 71 (45-117) U/L Albumin 3.2 L (3.4-5.0) g/dL Physical Exam Vital signs: Vital Signs 06/24/18 12:00 06/24/18 16:00 06/24/18 20:00 Temperature 98.5 F 98.5 F 98.9 F Pulse Rate 88 89 85 Respiratory Rate 16 16 17 Blood Pressure 101/56 L 111/57 L 121/62 Pulse Oximetry 96 96 95 06/25/18 00:00 06/25/18 08:00 Temperature 98.2 F 98.4 F Pulse Rate 80 95 H Respiratory Rate 17 17 Blood Pressure 124/68 92/50 L Pulse Oximetry 95 94 L Intake & Output 06/24/18 06/25/18 06/25/18 18:59 06:59 18:59 Intake Total 3160 / 3160 1200 / 1200 Balance 3160 / 3160 1200 / 1200 Weight 36 kg Intake: IV 2200 / 2200 1200 / 1200 NS Inj 1,000 ML @ 100 mls/hr IV 1000 / 1000 1200 / 1200 .CONT .Q10H [facility] Rx#:[id number] KCl 20 mEq Premix Inj 20 meq In 100 / 100 100 ml @ 50 mls/hr IV.SIG ONCE ONE Rx#:[id number] Rocephin Inj 1,000 MG In NS Inj 100 / 100 100 ML @ 200 mls/hr IV.SIG Q24H [facility] Rx#:[id number] Oral 960 / 960 Other: # Voids 4 Date of Last Bowel Movement 06/22/18 06/23/18 # Bowel Movements 1 Narrative: GENERAL: Well-nourished, well-developed patient. No acute distress. SKIN: Warm and dry. No rash. No jaundice. EYES: Minimal scleral icterus. No injection or drainage. PERRLA. EOMI. NECK: Supple, trachea midline. No JVD or lymphadenopathy. CARDIOVASCULAR: Regular rate and rhythm without obvious murmurs, gallops, or rubs. Patient has place port on right side of chest. RESPIRATORY: Breath sounds equal bilaterally. No accessory muscle use. CTAB. GASTROINTESTINAL: Abdomen soft, non-tender, nondistended. BS WNL. MUSCULOSKELETAL: No cyanosis or edema. Strength grossly WNL. No swelling of digits. BACK: Nontender without obvious deformity. No CVA tenderness. NEURO/PSYCH: Afocal. Awake, alert, and oriented x3. Assessment and Plan - Assessment (1) Bacteremia Code(s): R78.81 - Bacteremia Status: Acute Plan: Patient is a 27-year-old female with a history of sickle cell anemia admitted after meeting SIRS criteria in the setting of generalized pain and ear pain. Patient with acute on chronic leukocytosis, WBC trending down Blood cultures 06/21 and 06/22 4/4 growing staphylococcus epidermidis, most likely contaminant Repeat blood cultures 06/24 pending Continue Rocephin 1g q24h (06/22-) - Increase NS 120mls/hr Zofran 4mg q6h or Compazine 5mg q6h PRN for N/V (2) Sickle cell anemia with pain Code(s): D57.00 - Hb-SS disease with crisis, unspecified Status: Acute Plan: This patient suffers from sickle cell anemia and is well-known to the emergency department for several visits due to sickle cell crisis. Patient reports generalized pain in her muscles but denies any chest pain, flank pain, or new digit swelling. Patient is status post 1 unit of packed red blood cells. -Hem/onc on board. Transfuse only if patient drops below 6 hemoglobin again. Patient currently iron overloaded with a ferritin of 5290. - s/p 1 unit of PRBCs on 06/23 -Continue home pain medication; [place] 10/325 every 6 hours scheduled -Additional pain control with: - Benadryl 25mg PO q4h PRN for itching or rash, pharmacy out of IV Benadryl -Acetaminophen 650 every 6 as needed for pain scale 1-2 -[place] 5/325 every 4 as needed for pain scale 3-5 -[place] 7.5/325 every 4 as needed for pain scale 6 through 10 - Continue Dilaudid 3mg IV every 4 as needed for breakthrough pain (3) Nutrition, metabolism, and development symptoms Code(s): R63.8 - Other symptoms and signs concerning food and fluid intake Status: Acute Plan: Fluids: NS 120mls/hr Electrolytes: Replete as needed Nutrition: Regular diet DVT prophylaxis: SCDs and early ambulation
[2018-06-25] MEDS: Senna/Docusate Sodium 8.6/50 MG Tablet PO SCH ×2 (10:31→20:13)
[2018-06-25] MEDS: Folic Acid 1 MG Tablet PO SCH (10:31)
--- NOTE | 2018-06-25 16:04 | P.PNONC ---
Subjective Interval history: Afebrile overnight Patient reports her nausea is under control if she lays still States the nausea is common with her sickle cell crisis Overall feeling somewhat better since admission Objective Vital Signs/Intake & Output: Vital Signs 06/24/18 16:00 06/24/18 20:00 06/25/18 00:00 Temperature 98.5 F 98.9 F 98.2 F Pulse Rate 89 85 80 Respiratory Rate 16 17 17 Blood Pressure 111/57 L 121/62 124/68 Pulse Oximetry 96 95 95 06/25/18 08:00 06/25/18 12:00 Temperature 98.4 F 98.2 F Pulse Rate 95 H 90 Respiratory Rate 17 18 Blood Pressure 92/50 L 115/62 Pulse Oximetry 94 L 94 L Intake & Output 06/24/18 06/25/18 06/25/18 18:59 06:59 18:59 Intake Total 3160 / 3160 1200 / 1200 Balance 3160 / 3160 1200 / 1200 Weight 79 lb 5.863 oz Intake: IV 2200 / 2200 1200 / 1200 NS Inj 1,000 ML @ 100 mls/hr IV 1000 / 1000 1200 / 1200 .CONT .Q10H [facility] Rx#:[id number] KCl 20 mEq Premix Inj 20 meq In 100 / 100 100 ml @ 50 mls/hr IV.SIG ONCE ONE Rx#:[id number] Rocephin Inj 1,000 MG In NS Inj 100 / 100 100 ML @ 200 mls/hr IV.SIG Q24H [facility] Rx#:[id number] Oral 960 / 960 Other: # Voids 4 Date of Last Bowel Movement 06/22/18 06/23/18 # Bowel Movements 1 Result Diagrams: 06/25/18 04:15 06/25/18 04:15 Laboratory Results: Laboratory Results - last 24 hr 06/22/18 06/24/18 06/25/18 22:00 15:46 04:15 CBC w Diff Auto diff final WBC 16.2 H RBC 2.41 L Hgb 6.8 L* 6.7 L* Hct 19.9 L* 19.1 L* MCV 79.1 L MCH 27.6 MCHC 34.9 RDW 20.1 H Plt Count 438 MPV 7.7 Prelim Diff (Auto) [employer] Neut % (Auto) 49.7 Lymph % (Auto) 30.6 [place] % (Auto) 12.6 H Eos % (Auto) 5.7 H Baso % (Auto) 1.4 Neut # (Auto) 8.1 H Lymph # (Auto) 4.9 H [place] # (Auto) 2.0 H Eos # (Auto) 0.9 H Baso # (Auto) 0.2 WBC Differential . Differential Comment . Sodium Potassium Chloride Carbon Dioxide Anion Gap BUN Creatinine Estimated GFR Random Glucose Calcium Total Bilirubin AST ALT Alkaline Phosphatase Total Protein Albumin MTS Gel Crossmatch See Detail 06/25/18 04:15 CBC w Diff WBC RBC Hgb Hct MCV MCH MCHC RDW Plt Count MPV Prelim Diff (Auto) Neut % (Auto) Lymph % (Auto) [place] % (Auto) Eos % (Auto) Baso % (Auto) Neut # (Auto) Lymph # (Auto) [place] # (Auto) Eos # (Auto) Baso # (Auto) WBC Differential Differential Comment Sodium 143 Potassium 3.7 Chloride 111 H Carbon Dioxide 26.6 Anion Gap 5 BUN 4 L Creatinine 0.62 Estimated GFR Greater than 89 Random Glucose 106 Calcium 8.2 L Total Bilirubin 1.4 H AST 41 H ALT 15 Alkaline Phosphatase 71 Total Protein 6.7 D Albumin 3.2 L MTS Gel Crossmatch Culture Results: Microbiology 06/24/18 15:46 Aerobic Blood Culture - Preliminary Blood - Peripheral No growth in 1 day Anaerobic Blood Culture - Preliminary No growth in 1 day 06/24/18 15:46 Aerobic Blood Culture - Preliminary Blood - Peripheral No growth in 1 day Anaerobic Blood Culture - Preliminary No growth in 1 day 06/22/18 14:17 Aerobic Blood Culture - Final Blood - Peripheral Staphylococcus coag negative Anaerobic Blood Culture - Final Staphylococcus epidermidis 06/21/18 09:22 Aerobic Blood Culture - Final Blood - Peripheral Staphylococcus epidermidis Anaerobic Blood Culture - Final Staphylococcus coag negative 06/21/18 09:17 Aerobic Blood Culture - Final Blood - Peripheral Staphylococcus coag negative Anaerobic Blood Culture - Final Staphylococcus epidermidis Medications: Active Medications Generic Name Dose Route Start Last Admin Trade Name Freq PRN Reason Stop Dose Admin Hydrocodone Bitart/Acetaminophen 1 tab 06/21/18 15:00 06/25/18 10:31 [place] 10/325 PO Not Given Q6H [facility] Diphenhydramine HCl 25 mg 06/24/18 15:48 06/25/18 12:40 Benadryl PO 25 mg Q4H PRN Administration ITCHING Folic Acid 1 mg 06/21/18 14:15 06/25/18 10:31 Folic Acid PO Not Given DAILY [facility] Hydromorphone HCl 3 mg 06/22/18 08:38 06/25/18 12:40 Dilaudid Pf Inj IV.PUSH 3 mg Q4H PRN Administration BREAKTHROUGH PAIN Ceftriaxone Sodium 1,000 mg/ 100 mls @ 200 mls/hr 06/22/18 15:00 06/24/18 17: 06 Sodium Chloride IV.SIG Infused Q24H [facility] Infusion Sodium Chloride 1,000 mls @ 120 mls/hr 06/23/18 11:15 06/25/18 05:42 Ns Inj IV.CONT 100 mls/hr .Q8H20M [facility] Infusion Ondansetron HCl 4 mg 06/24/18 15:45 06/24/18 20:09 Zofran Inj IV.PUSH 4 mg Q6H PRN Administration NAUSEA OR VOMITING Prochlorperazine Edisylate 5 mg 06/25/18 08:32 06/25/18 08:50 Compazine Inj IV.PUSH 5 mg Q6H PRN Administration nausesa/vomiting Senna/Docusate Sodium 1 tab 06/22/18 09:00 06/25/18 10:31 Malissa-Colace PO Not Given BID [facility] Sodium Chloride 2 ml 06/21/18 21:00 06/25/18 10:31 Ns Flush IV.FLUSH Not Given BID [facility] Zolpidem Tartrate 5 mg 06/21/18 21:00 06/24/18 20:09 Ambien PO 5 mg HS [facility] Administration Objective Remarks: GENERAL: Well-nourished, well-developed young female patient, in no acute distress. SKIN: Warm and dry. HEAD: Normocephalic. EYES: No scleral icterus. No injection or drainage. NECK: Supple, trachea midline. CARDIOVASCULAR: Regular rate and rhythm without murmurs. RESPIRATORY: Posterior Breath sounds clear, equal bilaterally. No accessory muscle use. GASTROINTESTINAL: Abdomen soft, non-tender, nondistended. EXTREMITIES: No cyanosis, or edema. MUSCULOSKELETAL: Adequate muscle tone. NEUROLOGICAL: No obvious focal deficit. Awakens easily, alert, and oriented x3. Assessment/Plan - Plan Ms. Frazier is a pleasant 27 year old female patient with history of sickle cell anemia. Currently admitted for pain crisis. 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 Recommendations: 1. Transfuse 1 unit packed red blood cells if hemoglobin drops less than 6.0. 2. Repeat blood cultures show no growth times 1 day. Patient remains on Rocephin. Management per attending. 3. Continue current pain regimen. Discussed with patient that we can decrease the IV pain medication if her symptoms continue to improve. 4. CBC in a.m.
[2018-06-25] MEDS: Zolpidem Tartrate 5 MG Tablet PO SCH (20:12)
[2018-06-26] MEDS: HYDROmorphone PF Inj 2 MG/ML Vial IV.PUSH PRN ×6 (01:56→21:57)
[2018-06-26] MEDS: Sod Chloride 0.9% Inj 1,000 ML IV.CONT SCH ×2 (06:02→14:00)
[2018-06-26 07:17] LABS: Baso # (Auto) 0.2 th/mm3 (0.0-0.2); Baso % (Auto) 1.3 % (0.0-2.0); Eos # (Auto) 1.2 th/mm3 (0.0-0.4); Eos % (Auto) 7.4 % (0.0-4.0); Lymph % (Auto) 35.9 % (9.0-44.0); Mean Corpuscular HGB Conc 34.1 % (32.0-36.0); Mean Corpuscular Hemoglobin 27.9 pg (27.0-34.0); Mean Corpuscular Volume 81.9 fL (80.0-100.0); Mean Platelet Volume 7.8 fL (7.0-11.0); Mono # (Auto) 2.1 th/mm3 (0.0-0.9); Mono % (Auto) 12.5 % (0.0-8.0); Neut # (Auto) 7.2 th/mm3 (1.8-7.7); Neut % (Auto) 42.9 % (16.0-70.0); Platelet Count 435 th/mm3 (150-450); Red Blood Count 2.44 mil/mm3 (4.00-5.30); Red Cell Distribution Width 21.2 % (11.6-17.2); White Blood Count 16.7 th/mm3 (4.0-11.0)
[2018-06-26 07:28] LABS: Hemoglobin 6.8 gm/dL (11.6-15.3)
[2018-06-26 07:35] LABS: Anion Gap 7 meq/L (5-15); Blood Urea Nitrogen 2 mg/dL (7-18); Calcium 7.9 mg/dL (8.5-10.1); Carbon Dioxide 25.9 meq/L (21.0-32.0); Chloride 110 meq/L (98-107); Glomerular Filtration Rate Greater Than 89 mL/min (>89); Glucose,Random 81 mg/dL (74-106); Potassium 3.5 meq/L (3.5-5.1); Sodium 143 meq/L (136-145)
[2018-06-26] MEDS: Folic Acid 1 MG Tablet PO SCH (09:06)
[2018-06-26] MEDS: Senna/Docusate Sodium 8.6/50 MG Tablet PO SCH ×2 (09:06→22:03)
[2018-06-26 09:10] LABS: Eosinophils 7 % (0-4); Lymphocytes 39 % (9-44); Monocytes 12 % (0-8); Myelocytes 1 % (0-0); Platelet Estimate Normal (Normal); Platelet Morphology Normal (Normal); Tallied Nucleated RBC 6 (0-0)
[2018-06-26 09:11] LABS: Howell-Jolly Bodies Present; Pappenheimer Bodies Present; Sickle Cells 1+
[2018-06-26 09:23] LABS: Polychromasia 3.5 % (0.0-1.9); Target Cells 1+
--- NOTE | 2018-06-26 14:44 | P.PNFP ---
Subjective Interval history: 27 yo female with sickle cell anemia admitted for pain crisis. Today she feels her pain is on the mend, though she still needs IV pain medication. No chest pain, SOB, or abdominal pain. Nausea still a little bit but improved with compazine. <[place] Kenisha - 06/26/18 14:44> Results - Labs Result diagrams: 06/27/18 05:40 06/27/18 05:40 <Reilly Rice - 06/27/18 18:42> Abnormal lab results 06/27/18 06/27/18 Range/Units 05:40 05:40 WBC 17.4 H (4.0-11.0) th/mm3 RBC 2.40 L (4.00-5.30) mil/mm3 Hgb 6.9 L* (11.6-15.3) gm/dL Hct 19.8 L* (35.0-46.0) % RDW 22.7 H (11.6-17.2) % [place] % (Auto) 11.2 H (0.0-8.0) % Eos % (Auto) 7.0 H (0.0-4.0) % Neut # (Auto) 8.0 H (1.8-7.7) th/mm3 Lymph # (Auto) 5.9 H (1.0-4.8) th/mm3 [place] # (Auto) 1.9 H (0.0-0.9) th/mm3 Eos # (Auto) 1.2 H (0.0-0.4) th/mm3 Baso # (Auto) 0.3 H (0.0-0.2) th/mm3 Monocytes % (Manual) 11 H (0-8) % Eosinophils % (Manual) 9 H (0-4) % Myelocytes % (Man) 1 H (0-0) % Abs Neuts (Manual) 8.7 H (1.8-7.7) th/mm3 Nucleated RBCs/100 WBC 9 H (0-0) /100 WBC Polychromasia 3.3 H (0.0-1.9) % Basophilic Stippling Moderate H (None) Pappenheimer Bodies Present H (None) Sickle Cells 1+ H (None) Target Cells 1+ H (None) Ovalocytes 1+ H (None) [place] Bodies Present H (None) Potassium 3.2 L (3.5-5.1) meq/L Short CBC 06/27/18 Range/Units 05:40 WBC 17.4 H (4.0-11.0) th/mm3 Hgb 6.9 L* (11.6-15.3) gm/dL Hct 19.8 L* (35.0-46.0) % Plt Count 436 (150-450) th/mm3 BMP 06/27/18 05:40 Potassium 3.2 L <Reilly Riec - 06/27/18 18:42> Abnormal lab results 06/26/18 06/26/18 Range/Units 06:00 06:00 WBC 16.7 H (4.0-11.0) th/mm3 RBC 2.44 L (4.00-5.30) mil/mm3 Hgb 6.8 L* (11.6-15.3) gm/dL Hct 20.0 L* (35.0-46.0) % RDW 21.2 H (11.6-17.2) % [place] % (Auto) 12.5 H (0.0-8.0) % Eos % (Auto) 7.4 H (0.0-4.0) % Lymph # (Auto) 6.0 H (1.0-4.8) th/mm3 [place] # (Auto) 2.1 H (0.0-0.9) th/mm3 Eos # (Auto) 1.2 H (0.0-0.4) th/mm3 Monocytes % (Manual) 12 H (0-8) % Eosinophils % (Manual) 7 H (0-4) % Myelocytes % (Man) 1 H (0-0) % Nucleated RBCs/100 WBC 6 H (0-0) /100 WBC Polychromasia 3.5 H (0.0-1.9) % Pappenheimer Bodies Present H (None) Sickle Cells 1+ H (None) Target Cells 1+ H (None) [place] Bodies Present H (None) Chloride 110 H (98-107) meq/L BUN 2 L (7-18) mg/dL Calcium 7.9 L (8.5-10.1) mg/dL Short CBC 06/26/18 Range/Units 06:00 WBC 16.7 H (4.0-11.0) th/mm3 Hgb 6.8 L* (11.6-15.3) gm/dL Hct 20.0 L* (35.0-46.0) % Plt Count 435 (150-450) th/mm3 BMP 06/26/18 06:00 Sodium 143 Potassium 3.5 Chloride 110 H Carbon Dioxide 25.9 BUN 2 L Creatinine 0.58 Calcium 7.9 L <[place] S - 06/26/18 14:44> Physical Exam Vital signs: Vital Signs 06/26/18 20:00 06/26/18 21:28 06/26/18 22:36 Temperature 98.5 F Pulse Rate 76 Respiratory Rate 18 20 20 Blood Pressure 114/58 L Pulse Oximetry 95 06/27/18 00:00 06/27/18 01:31 06/27/18 02:47 Temperature 98.5 F Pulse Rate 74 Respiratory Rate 17 20 20 Blood Pressure 124/66 Pulse Oximetry 94 L 06/27/18 03:11 06/27/18 05:54 06/27/18 08:00 Temperature 98.3 F Pulse Rate 74 Respiratory Rate 20 20 19 Blood Pressure 113/61 Pulse Oximetry 95 06/27/18 08:23 06/27/18 12:00 06/27/18 16:00 Temperature 98.1 F 98.5 F Pulse Rate 78 75 Respiratory Rate 18 19 Blood Pressure 122/60 117/62 Pulse Oximetry 95 94 L 94 L Intake & Output 06/26/18 06/27/18 06/27/18 18:59 06:59 18:59 Intake Total 1590 / 1590 1480 / 1480 2850 / 2850 Balance 1590 / 1590 1480 / 1480 2850 / 2850 Weight 81.9 kg Intake: IV 890 / 890 1000 / 1000 1650 / 1650 NS Inj 1,000 ML @ 120 mls/hr IV 790 / 790 1000 / 1000 1400 / 1400 .CONT .Q8H20M [facility] Rx#:[id number] Vancomycin Inj 1,000 MG In NS 250 / 250 Inj 250 ML @ 250 mls/hr IV.SIG Q24H [facility] Rx#:[id number] Rocephin Inj 1,000 MG In NS Inj 100 / 100 100 ML @ 200 mls/hr IV.SIG Q24H [facility] Rx#:[id number] Oral 700 / 700 480 / 480 1200 / 1200 Other: # Voids 3 2 7 Date of Last Bowel Movement 06/25/18 06/26/18 # Bowel Movements 1 <Reilly Rice - 06/27/18 18:42> Vital Signs 06/25/18 16:00 06/25/18 18:01 06/25/18 20:00 Temperature 98.3 F 98.8 F Pulse Rate 95 H 84 Respiratory Rate 19 16 Blood Pressure 104/61 113/59 L Pulse Oximetry 96 96 96 06/26/18 00:00 06/26/18 08:00 06/26/18 09:05 Temperature 98.4 F 98.7 F Pulse Rate 91 H 82 Respiratory Rate 20 19 Blood Pressure 117/59 L 109/55 L Pulse Oximetry 98 95 95 06/26/18 12:00 Temperature 98.5 F Pulse Rate 90 Respiratory Rate 18 Blood Pressure 120/53 L Pulse Oximetry 96 Intake & Output 06/25/18 06/26/18 06/26/18 18:59 06:59 18:59 Intake Total 2100 / 2100 380 / 380 790 / 790 Balance 2100 / 2100 380 / 380 790 / 790 Weight 80.7 kg Intake: IV 900 / 900 790 / 790 NS Inj 1,000 ML @ 120 mls/hr IV 800 / 800 790 / 790 .CONT .Q8H20M [facility] Rx#:[id number] Rocephin Inj 1,000 MG In NS Inj 100 / 100 100 ML @ 200 mls/hr IV.SIG Q24H [facility] Rx#:[id number] Oral 1200 / 1200 380 / 380 Other: # Voids 3 3 Date of Last Bowel Movement 06/25/18 06/25/18 <[place]tt [place] S - 06/26/18 14:44> - Constitutional no acute distress, obese, cooperative <[place]tt [place] S - 06/26/18 14:44> - Routine HEENT Exam Head: Present: normocephalic, atraumatic <[place]tt [place] S - 06/26/18 14:44> - Routine Respiratory Exam Present: CTA bilaterally. Absent: accessory muscle use, wheezes, crackles < [place] S - 06/26/18 14:44> - Routine Cardiovascular Exam Present: RRR, S1, S2. Absent: murmur <[place] S - 06/26/18 14:44> - Routine Extremities Exam Absent: edema <[place] S - 06/26/18 14:44> Assessment and Plan - Assessment (1) Bacteremia Code(s): R78.81 - Bacteremia Status: Acute (2) Sickle cell anemia with pain Code(s): D57.00 - Hb-SS disease with crisis, unspecified Status: Acute (3) Nutrition, metabolism, and development symptoms Code(s): R63.8 - Other symptoms and signs concerning food and fluid intake Status: Acute <Krystal,Reilly - 06/27/18 18:42> (1) Bacteremia Code(s): R78.81 - Bacteremia Status: Acute Plan: Bacteremia due to staph epidermidis in all initial blood Cx tubes, etiology unclear, no history of IVDU Patient with acute on chronic leukocytosis, WBC trending down Repeat blood cultures 06/24 NGTD x2 * Continue Rocephin 1g q24h (06/22-) * Continue NS NS 120mls/hr * Zofran 4mg q6h or Compazine 5mg q6h PRN for N/V (2) Sickle cell anemia with pain Code(s): D57.00 - Hb-SS disease with crisis, unspecified Status: Acute Plan: Sickle cell pain crisis, Hgb now stable near patient's baseline of 7 * Hem/onc consulted, appreciate recs * Transfuse only if patient drops below 6 hemoglobin again; currently iron overloaded with a ferritin of 5290. * s/p 1 unit of PRBCs on 06/23 * Continue home pain medication; [place] 10/325 every 6 hours scheduled * Additional pain control with: * Benadryl 25mg PO q4h PRN for itching or rash, pharmacy out of IV Benadryl * Acetaminophen 650 every 6 as needed for pain scale 1-2 * [place] 5/325 every 4 as needed for pain scale 3-5 * [place] 7.5/325 every 4 as needed for pain scale 6 through 10 * Continue Dilaudid 3mg IV every 4 as needed for breakthrough pain * Plan to decrease IV pain medication if continuing to improve based on patient report (3) Nutrition, metabolism, and development symptoms Code(s): R63.8 - Other symptoms and signs concerning food and fluid intake Status: Acute Plan: Fluids: NS 120mls/hr Electrolytes: Replete as needed Nutrition: Regular diet DVT prophylaxis: SCDs and early ambulation <Garett Grove - 06/26/18 14:38> - Assessment and Plan Discharge Planning: Pending improvement of pain crisis <Garett Grove - 06/26/18 14:44> - Attending Attestation The exam, history, and the medical decision-making described in the above note were completed with the assistance of the resident physician. I reviewed and agree with the findings presented. I attest that I had a [id number] encounter with the patient on the same day, and personally performed and documented my assessment and findings in the medical record. <Reilly Rice - 06/27/18 18:42>
[2018-06-26] MEDS: Zolpidem Tartrate 5 MG Tablet PO SCH (21:56)
[2018-06-27] MEDS: Sod Chloride 0.9% Inj 1,000 ML IV.CONT SCH ×3 (01:32→17:47)
[2018-06-27] MEDS: HYDROmorphone PF Inj 2 MG/ML Vial IV.PUSH PRN ×6 (01:54→21:39)
[2018-06-27 06:39] LABS: Baso # (Auto) 0.3 th/mm3 (0.0-0.2); Baso % (Auto) 1.8 % (0.0-2.0); Eos # (Auto) 1.2 th/mm3 (0.0-0.4); Lymph # (Auto) 5.9 th/mm3 (1.0-4.8); Lymph % (Auto) 33.9 % (9.0-44.0); Mean Corpuscular HGB Conc 34.7 % (32.0-36.0); Mean Corpuscular Hemoglobin 28.6 pg (27.0-34.0); Mean Corpuscular Volume 82.5 fL (80.0-100.0); Mean Platelet Volume 7.6 fL (7.0-11.0); Mono # (Auto) 1.9 th/mm3 (0.0-0.9); Mono % (Auto) 11.2 % (0.0-8.0); Neut % (Auto) 46.1 % (16.0-70.0); Platelet Count 436 th/mm3 (150-450); Red Cell Distribution Width 22.7 % (11.6-17.2); White Blood Count 17.4 th/mm3 (4.0-11.0)
[2018-06-27 07:13] LABS: Hematocrit 19.8 % (35.0-46.0); Hemoglobin 6.9 gm/dL (11.6-15.3)
[2018-06-27] MEDS: Folic Acid 1 MG Tablet PO SCH (08:24)
[2018-06-27] MEDS: Senna/Docusate Sodium 8.6/50 MG Tablet PO SCH ×2 (08:24→21:38)
[2018-06-27 08:31] LABS: Eosinophils 9 % (0-4); Lymphocytes 29 % (9-44); Monocytes 11 % (0-8); Myelocytes 1 % (0-0); Tallied Nucleated RBC 9 (0-0)
[2018-06-27 08:32] LABS: Basophilic Stippling Moderate; Howell-Jolly Bodies Present; Pappenheimer Bodies Present
[2018-06-27 08:33] LABS: Ovalocytes 1+; Sickle Cells 1+; Target Cells 1+
[2018-06-27 08:34] LABS: Platelet Estimate Normal (Normal); Platelet Morphology Normal (Normal); Polychromasia 3.3 % (0.0-1.9)
--- NOTE | 2018-06-27 09:53 | P.PNFP ---
Subjective Interval history: No acute events overnight. Patient lying in bed. States that she has generalized pain, relieved with Dilaudid States that she still is a little nauseated but relieved with Zofran, reports that she hasn't eaten much, just little bites Discussed with patient that her repeat blood cultures are negative, but initial blood cultures show resistance to Rocephin, will be starting patient on a new abx H/H stable Denies CP, SOB, and abdominal pain Results - Labs Result diagrams: 06/27/18 05:40 06/27/18 05:40 Abnormal lab results 06/27/18 06/27/18 Range/Units 05:40 05:40 WBC 17.4 H (4.0-11.0) th/mm3 RBC 2.40 L (4.00-5.30) mil/mm3 Hgb 6.9 L* (11.6-15.3) gm/dL Hct 19.8 L* (35.0-46.0) % RDW 22.7 H (11.6-17.2) % [place] % (Auto) 11.2 H (0.0-8.0) % Eos % (Auto) 7.0 H (0.0-4.0) % Neut # (Auto) 8.0 H (1.8-7.7) th/mm3 Lymph # (Auto) 5.9 H (1.0-4.8) th/mm3 [place] # (Auto) 1.9 H (0.0-0.9) th/mm3 Eos # (Auto) 1.2 H (0.0-0.4) th/mm3 Baso # (Auto) 0.3 H (0.0-0.2) th/mm3 Monocytes % (Manual) 11 H (0-8) % Eosinophils % (Manual) 9 H (0-4) % Myelocytes % (Man) 1 H (0-0) % Abs Neuts (Manual) 8.7 H (1.8-7.7) th/mm3 Nucleated RBCs/100 WBC 9 H (0-0) /100 WBC Polychromasia 3.3 H (0.0-1.9) % Basophilic Stippling Moderate H (None) Pappenheimer Bodies Present H (None) Sickle Cells 1+ H (None) Target Cells 1+ H (None) Ovalocytes 1+ H (None) Karimi-Smiley Bodies Present H (None) Potassium 3.2 L (3.5-5.1) meq/L Short CBC 06/27/18 Range/Units 05:40 WBC 17.4 H (4.0-11.0) th/mm3 Hgb 6.9 L* (11.6-15.3) gm/dL Hct 19.8 L* (35.0-46.0) % Plt Count 436 (150-450) th/mm3 BMP 06/27/18 05:40 Potassium 3.2 L Physical Exam Vital signs: Vital Signs 06/26/18 12:00 06/26/18 16:00 06/26/18 18:06 Temperature 98.5 F 98.9 F Pulse Rate 90 82 Respiratory Rate 18 18 Blood Pressure 120/53 L 117/56 L Pulse Oximetry 96 93 L 93 L 06/26/18 20:00 06/26/18 21:28 06/26/18 22:36 Temperature 98.5 F Pulse Rate 76 Respiratory Rate 18 20 20 Blood Pressure 114/58 L Pulse Oximetry 95 06/27/18 00:00 06/27/18 01:31 06/27/18 02:47 Temperature 98.5 F Pulse Rate 74 Respiratory Rate 17 20 20 Blood Pressure 124/66 Pulse Oximetry 94 L 06/27/18 03:11 06/27/18 05:54 Temperature Pulse Rate Respiratory Rate 20 20 Blood Pressure Pulse Oximetry Intake & Output 06/26/18 06/27/18 06/27/18 18:59 06:59 18:59 Intake Total 1590 / 1590 1480 / 1480 Balance 1590 / 1590 1480 / 1480 Weight 81.9 kg Intake: IV 890 / 890 1000 / 1000 NS Inj 1,000 ML @ 120 mls/hr IV 790 / 790 1000 / 1000 .CONT .Q8H20M [facility] Rx#:[id number] Rocephin Inj 1,000 MG In NS Inj 100 / 100 100 ML @ 200 mls/hr IV.SIG Q24H [facility] Rx#:[id number] Oral 700 / 700 480 / 480 Other: # Voids 3 2 Date of Last Bowel Movement 06/25/18 Narrative: GENERAL: Well-nourished, well-developed patient. No acute distress. SKIN: Warm and dry. No rash. No jaundice. EYES: Minimal scleral icterus. No injection or drainage. PERRLA. EOMI. NECK: Supple, trachea midline. No JVD or lymphadenopathy. CARDIOVASCULAR: Regular rate and rhythm without obvious murmurs, gallops, or rubs. Patient has place port on right side of chest. RESPIRATORY: Breath sounds equal bilaterally. No accessory muscle use. CTAB. GASTROINTESTINAL: Abdomen soft, non-tender, nondistended. BS WNL. MUSCULOSKELETAL: No cyanosis or edema. Strength grossly WNL. No swelling of digits. BACK: Nontender without obvious deformity. No CVA tenderness. NEURO/PSYCH: Afocal. Awake, alert, and oriented x3. Assessment and Plan - Assessment (1) Bacteremia Code(s): R78.81 - Bacteremia Status: Acute Plan: Bacteremia due to staph epidermidis in all initial blood Cx tubes, etiology unclear, no history of IVDU Patient with acute on chronic leukocytosis, WBC trending down Repeat blood cultures 06/24 NGTD x3 * Discontinue Rocephin 1g q24h (06/22-06/27)-sensitivities show resistance to Rocephin * Start vancomycin, pharmacy consulted * Zofran 4mg q6h or Compazine 5mg q6h PRN for N/V (2) Sickle cell anemia with pain Code(s): D57.00 - Hb-SS disease with crisis, unspecified Status: Acute Plan: Sickle cell pain crisis, Hgb now stable near patient's baseline of 7 * Hem/onc consulted, appreciate recs * Transfuse only if patient drops below 6 hemoglobin again; currently iron overloaded with a ferritin of 5290. * s/p 1 unit of PRBCs on 06/23 * Additional pain control with: * Benadryl 25mg PO q4h PRN for itching or rash, pharmacy out of IV Benadryl * Continue Dilaudid 3mg IV every 4 for pain 6-10 * Plan to decrease IV pain medication if continuing to improve based on patient report (3) Nutrition, metabolism, and development symptoms Code(s): R63.8 - Other symptoms and signs concerning food and fluid intake Status: Acute Plan: Fluids: NS 120mls/hr Electrolytes: Replete as needed Nutrition: Regular diet DVT prophylaxis: SCDs and early ambulation
[2018-06-27] MEDS ORDERED: Vancomycin Consult Pharmacy OTHER PRN (10:27)
[2018-06-27] MEDS ORDERED: Vancomycin Inj 1,000 MG in Sodium Chlor 0.9% Inj 250 ML IV.SIG SCH (11:00)
[2018-06-27] MEDS: Zolpidem Tartrate 5 MG Tablet PO SCH (21:38)
[2018-06-27] MEDS: Vancomycin Inj 1,250 MG in Sodium Chlor 0.9% Inj 250 ML IV.SIG SCH (21:39)
[2018-06-28] MEDS: HYDROmorphone PF Inj 2 MG/ML Vial IV.PUSH PRN ×6 (01:45→21:33)
[2018-06-28] MEDS: Sod Chloride 0.9% Inj 1,000 ML IV.CONT SCH ×3 (05:44→18:59)
[2018-06-28 07:07] LABS: Mean Corpuscular HGB Conc 34.7 % (32.0-36.0); Mean Corpuscular Hemoglobin 29.2 pg (27.0-34.0); Mean Corpuscular Volume 84.2 fL (80.0-100.0); Mean Platelet Volume 7.4 fL (7.0-11.0); Platelet Count 468 th/mm3 (150-450); Red Blood Count 2.47 mil/mm3 (4.00-5.30); White Blood Count 16.4 th/mm3 (4.0-11.0)
[2018-06-28 07:25] LABS: Hematocrit 20.8 % (35.0-46.0); Hemoglobin 7.2 gm/dL (11.6-15.3)
[2018-06-28 07:36] LABS: Glucose,Random 83 mg/dL (74-106)
[2018-06-28 07:37] LABS: Anion Gap 7 meq/L (5-15); Blood Urea Nitrogen 4 mg/dL (7-18); Calcium 7.9 mg/dL (8.5-10.1); Carbon Dioxide 26.6 meq/L (21.0-32.0); Chloride 108 meq/L (98-107); Glomerular Filtration Rate Greater Than 89 mL/min (>89); Potassium 3.4 meq/L (3.5-5.1); Sodium 142 meq/L (136-145)
[2018-06-28] MEDS: Senna/Docusate Sodium 8.6/50 MG Tablet PO SCH ×2 (09:35→22:30)
[2018-06-28] MEDS: Folic Acid 1 MG Tablet PO SCH (09:35)
[2018-06-28] MEDS: Vancomycin Inj 1,250 MG in Sodium Chlor 0.9% Inj 250 ML IV.SIG SCH ×2 (09:36→21:35)
--- NOTE | 2018-06-28 11:05 | P.PNFP ---
Subjective Interval history: Patient was seen at bedside this morning. There were no acute events overnight. Patient reports continued generalized body pain. She reports that although the pain is getting better it is still very much present. She reports that the current pain regimen is working for her. She also reports some nausea but no vomiting and is able to tolerate more food p.o. patient also reports that she is beginning to have abdominal cramping and is due for her menstrual period reports that it will be any day now. Patient denies any subjective fevers, chills, shortness of breath, chest pain, nausea, or vomiting. All questions were answered to the patient's satisfaction. <Héctor Allen - 06/28/18 11:05> Results - Labs Result diagrams: 07/01/18 05:50 07/01/18 08:45 <Reilly Rice - 07/02/18 13:56> Abnormal lab results 06/28/18 06/28/18 Range/Units 06:00 06:00 WBC 16.4 H (4.0-11.0) th/mm3 RBC 2.47 L (4.00-5.30) mil/mm3 Hgb 7.2 L (11.6-15.3) gm/dL Hct 20.8 L* (35.0-46.0) % RDW 23.0 H (11.6-17.2) % Plt Count 468 H (150-450) th/mm3 Potassium 3.4 L (3.5-5.1) meq/L Chloride 108 H (98-107) meq/L BUN 4 L (7-18) mg/dL Calcium 7.9 L (8.5-10.1) mg/dL Short CBC 06/28/18 Range/Units 06:00 WBC 16.4 H (4.0-11.0) th/mm3 Hgb 7.2 L (11.6-15.3) gm/dL Hct 20.8 L* (35.0-46.0) % Plt Count 468 H (150-450) th/mm3 BMP 06/28/18 06:00 Sodium 142 Potassium 3.4 L Chloride 108 H Carbon Dioxide 26.6 BUN 4 L Creatinine 0.59 Calcium 7.9 L <Héctor Allen - 06/28/18 11:05> Physical Exam Vital signs: Intake & Output 07/01/18 07/02/18 07/02/18 18:59 06:59 18:59 Intake Total 515 / 515 Balance 515 / 515 Intake: IV 515 / 515 Vancomycin Inj 1,500 MG In NS 515 / 515 Inj 500 ML @ 250 mls/hr IV.SIG Q12H [facility] Rx#:[id number] Other: Date of Last Bowel Movement 06/29/18 <Reilly Rice - 07/02/18 13:56> Vital Signs 06/27/18 12:00 06/27/18 16:00 06/27/18 20:00 Temperature 98.1 F 98.5 F 98.0 F Pulse Rate 78 75 88 Respiratory Rate 18 19 16 Blood Pressure 122/60 117/62 119/57 L Pulse Oximetry 94 L 94 L 99 06/28/18 00:00 06/28/18 08:00 Temperature 98.5 F 98 F Pulse Rate 82 80 Respiratory Rate 18 19 Blood Pressure 150/63 H 130/65 Pulse Oximetry 95 97 Intake & Output 06/27/18 06/28/18 06/28/18 18:59 06:59 18:59 Intake Total 2850 / 2850 2022.5 / 2022.5 Balance 2850 / 2850 2022.5 / 2022.5 Weight 82 kg Intake: IV 1650 / 1650 1262.5 / 1262.5 NS Inj 1,000 ML @ 120 mls/hr IV 1400 / 1400 1000 / 1000 .CONT .Q8H20M [facility] Rx#:[id number] Vancomycin Inj 1,000 MG In NS 250 / 250 Inj 250 ML @ 250 mls/hr IV.SIG Q24H [facility] Rx#:[id number] Vancomycin Inj 1,250 MG In NS 262.5 / 262.5 Inj 250 ML @ 262.5 mls/hr IV. SIG Q12H [facility] Rx#:[id number] Oral 1200 / 1200 760 / 760 Other: # Voids 7 5 Date of Last Bowel Movement 06/26/18 # Bowel Movements 1 <Héctor Allen - 06/28/18 11:05> Narrative: GENERAL: Well-nourished, well-developed patient. No acute distress. SKIN: Warm and dry. No rash. No jaundice. EYES: No scleral icterus. No injection or drainage. PERRLA. EOMI. CARDIOVASCULAR: Regular rate and rhythm without obvious murmurs, gallops, or rubs. Patient has place port on right side of chest. RESPIRATORY: Breath sounds equal bilaterally. No accessory muscle use. CTAB. GASTROINTESTINAL: Abdomen soft, non-tender, nondistended. BS WNL. MUSCULOSKELETAL: No cyanosis or edema. Strength grossly WNL. No swelling of digits. BACK: Nontender without obvious deformity. No CVA tenderness. NEURO/PSYCH: Afocal. Awake, alert, and oriented x3. <Héctor Allne - 06/28/18 11:05> Assessment and Plan - Assessment (1) Bacteremia Code(s): R78.81 - Bacteremia Status: Acute (2) Sickle cell anemia with pain Code(s): D57.00 - Hb-SS disease with crisis, unspecified Status: Acute (3) Nutrition, metabolism, and development symptoms Code(s): R63.8 - Other symptoms and signs concerning food and fluid intake Status: Acute <Reilly Rice - 07/02/18 13:56> (1) Bacteremia Code(s): R78.81 - Bacteremia Status: Acute Plan: Bacteremia due to staph epidermidis in all initial blood Cx tubes, etiology unclear, no history of IVDU Patient with acute on chronic leukocytosis, WBC trending down. Repeat blood cultures June 24 showed no growth after 4 days. Repeat blood cultures 06/24 NGTD x3 * Continue vancomycin, pharmacy consulted * Transition to clindamycin when patient goes home * Zofran 4mg q6h or Compazine 5mg q6h PRN for N/V (2) Sickle cell anemia with pain Code(s): D57.00 - Hb-SS disease with crisis, unspecified Status: Acute Plan: Sickle cell pain crisis, Hgb now stable near patient's baseline of 7. Patient continues to increase in hemoglobin. Patient to begin menstrual period soon, evaluate H/H. * Hem/onc consulted, appreciate recs * Transfuse only if patient drops below 6 hemoglobin again; currently iron overloaded with a ferritin of 5290. * s/p 1 unit of PRBCs on 06/23 * Additional pain control with: * Benadryl 25mg PO q4h PRN for itching or rash, pharmacy out of IV Benadryl * Continue Dilaudid 3mg IV every 4 for pain 6-10 * Plan to decrease IV pain medication if continuing to improve based on patient report (3) Nutrition, metabolism, and development symptoms Code(s): R63.8 - Other symptoms and signs concerning food and fluid intake Status: Acute Plan: Fluids: NS 120mls/hr Electrolytes: Replete as needed Nutrition: Regular diet DVT prophylaxis: SCDs and early ambulation <Héctor Allen - 06/28/18 11:00> - Attending Attestation The exam, history, and the medical decision-making described in the above note were completed with the assistance of the resident physician. I reviewed and agree with the findings presented. I attest that I had a [id number] encounter with the patient on the same day, and personally performed and documented my assessment and findings in the medical record. <Reilly Rice - 07/02/18 13:56>
--- NOTE | 2018-06-28 11:54 | P.PNONC ---
Subjective Interval history: Patient lying in bed with eyes closed, awakens easily to voice. She reports continued pain "all over" She denies any shortness of breath, currently 97% O2 sat on room air. Minimal appetite. Denies n/v/d. Reports ambulation in room and sitting in a recliner at times. Objective Vital Signs/Intake & Output: Vital Signs 06/27/18 12:00 06/27/18 16:00 06/27/18 20:00 Temperature 98.1 F 98.5 F 98.0 F Pulse Rate 78 75 88 Respiratory Rate 18 19 16 Blood Pressure 122/60 117/62 119/57 L Pulse Oximetry 94 L 94 L 99 06/28/18 00:00 06/28/18 08:00 Temperature 98.5 F 98 F Pulse Rate 82 80 Respiratory Rate 18 19 Blood Pressure 150/63 H 130/65 Pulse Oximetry 95 97 Intake & Output 06/27/18 06/28/18 06/28/18 18:59 06:59 18:59 Intake Total 2850 / 2850 2022.5 / 2022.5 Balance 2850 / 2850 2022.5 / 2022.5 Weight 82 kg Intake: IV 1650 / 1650 1262.5 / 1262.5 NS Inj 1,000 ML @ 120 mls/hr IV 1400 / 1400 1000 / 1000 .CONT .Q8H20M [facility] Rx#:[id number] Vancomycin Inj 1,000 MG In NS 250 / 250 Inj 250 ML @ 250 mls/hr IV.SIG Q24H [facility] Rx#:[id number] Vancomycin Inj 1,250 MG In NS 262.5 / 262.5 Inj 250 ML @ 262.5 mls/hr IV. SIG Q12H [facility] Rx#:[id number] Oral 1200 / 1200 760 / 760 Other: # Voids 7 5 Date of Last Bowel Movement 06/26/18 # Bowel Movements 1 Result Diagrams: 06/28/18 06:00 06/28/18 06:00 Laboratory Results: Laboratory Results - last 24 hr 06/28/18 06/28/18 06:00 06:00 WBC 16.4 H RBC 2.47 L Hgb 7.2 L Hct 20.8 L* MCV 84.2 MCH 29.2 MCHC 34.7 RDW 23.0 H Plt Count 468 H MPV 7.4 Sodium 142 Potassium 3.4 L Chloride 108 H Carbon Dioxide 26.6 Anion Gap 7 BUN 4 L Creatinine 0.59 Estimated GFR Greater than 89 Random Glucose 83 Calcium 7.9 L Culture Results: Microbiology 06/24/18 15:46 Aerobic Blood Culture - Preliminary Blood - Peripheral No growth in 4 days Anaerobic Blood Culture - Preliminary No growth in 4 days 06/24/18 15:46 Aerobic Blood Culture - Preliminary Blood - Peripheral No growth in 4 days Anaerobic Blood Culture - Preliminary No growth in 4 days 06/22/18 14:17 Aerobic Blood Culture - Final Blood - Peripheral Staphylococcus coag negative Anaerobic Blood Culture - Final Staphylococcus epidermidis Medications: Active Medications Generic Name Dose Route Start Last Admin Trade Name Freq PRN Reason Stop Dose Admin Diphenhydramine HCl 25 mg 06/24/18 15:48 06/28/18 09:34 Benadryl PO 25 mg Q4H PRN Administration ITCHING Folic Acid 1 mg 06/21/18 14:15 06/28/18 09:35 Folic Acid PO 1 mg DAILY [facility] Administration Hydromorphone HCl 3 mg 06/22/18 08:38 06/28/18 09:34 Dilaudid Pf Inj IV.PUSH 3 mg Q4H PRN Administration Pain 6-10 Sodium Chloride 1,000 mls @ 120 mls/hr 06/23/18 11:15 06/28/18 05:44 Ns Inj IV.CONT 120 mls/hr .Q8H20M [facility] Administration Vancomycin HCl 1,250 mg/ 262.5 mls @ 262.5 mls/hr 06/27/18 22:00 06/28/18 09: 36 Sodium Chloride IV.SIG 250 mls/hr Q12H [facility] Administration Ondansetron HCl 4 mg 06/24/18 15:45 06/27/18 21:47 Zofran Inj IV.PUSH 4 mg Q6H PRN Administration NAUSEA OR VOMITING Prochlorperazine Edisylate 5 mg 06/25/18 08:32 06/25/18 17:27 Compazine Inj IV.PUSH 5 mg Q6H PRN Administration nausesa/vomiting Senna/Docusate Sodium 1 tab 06/22/18 09:00 06/28/18 09:35 Malissa-Colace PO Not Given BID [facility] Sodium Chloride 2 ml 06/21/18 21:00 06/27/18 21:39 Ns Flush IV.FLUSH Not Given BID [facility] Zolpidem Tartrate 5 mg 06/21/18 21:00 06/27/18 21:38 Ambien PO 5 mg HS [facility] Administration Objective Remarks: GENERAL: Well-nourished, well-developed young female patient, in no acute distress. SKIN: Warm and dry.Port access to right chest wall, drsg dry/intact. HEAD: Normocephalic. EYES: No scleral icterus. No injection or drainage. NECK: Supple, trachea midline. CARDIOVASCULAR: Regular rate and rhythm without murmurs. RESPIRATORY: Posterior Breath sounds clear, equal bilaterally. Non-labored at rest. On room air. GASTROINTESTINAL: Abdomen soft, non-tender, nondistended. EXTREMITIES: No cyanosis, or edema. MUSCULOSKELETAL: Adequate muscle tone. NEUROLOGICAL: No obvious focal deficit. Awakens easily, alert, and oriented x3. PSYCHIATRIC: Appropriate mood and affect; insight and judgment normal. Assessment/Plan - Plan Ms. Frazier is a pleasant 27 year old female patient with history of sickle cell anemia. Currently admitted for pain crisis. 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 Recommendations: 1. Sickle cell anemia with iron overload, plan to only transfuse 1 unit packed red blood cells if hemoglobin drops less than 6.0. 2. Repeat blood cultures show no growth times 4 days. Currently on vancomycin. Management per attending. 3. Continue current pain regimen. 4. Continue supportive care. - Attending Statement The exam, history, and the medical decision-making described in the above note were completed with the assistance of the mid-level provider. I reviewed and agree with the findings presented. I attest that I had a [id number] encounter with the patient on the same day, and personally performed and documented my assessment and findings in the medical record. Patient is still complaining of generalized pain Denies any chest pains Able to go to the bathroom with no difficulties Patient takes Exjade 3 tablets at home I have advised her that family member can bring Exjade to the hospital so that she can continue with that. Exjade is nonformulary She was advised that her ferritin is more than 5000 and she needs to continue to take the Exjade to avoid long-term complication to heart and liver from iron overload. She verbalized the understanding
[2018-06-28] MEDS: Zolpidem Tartrate 5 MG Tablet PO SCH (21:34)
[2018-06-29] MEDS: HYDROmorphone PF Inj 2 MG/ML Vial IV.PUSH PRN ×6 (01:36→21:19)
[2018-06-29] MEDS: Sod Chloride 0.9% Inj 1,000 ML IV.CONT SCH ×3 (01:37→17:25)
[2018-06-29 07:24] LABS: Baso # (Auto) 0.2 th/mm3 (0.0-0.2); Baso % (Auto) 1.3 % (0.0-2.0); Eos # (Auto) 0.7 th/mm3 (0.0-0.4); Eos % (Auto) 5.7 % (0.0-4.0); Hematocrit 24.5 % (35.0-46.0); Hemoglobin 8.2 gm/dL (11.6-15.3); Lymph # (Auto) 2.8 th/mm3 (1.0-4.8); Lymph % (Auto) 22.1 % (9.0-44.0); Mean Corpuscular HGB Conc 33.7 % (32.0-36.0); Mean Corpuscular Hemoglobin 28.6 pg (27.0-34.0); Mean Corpuscular Volume 84.8 fL (80.0-100.0); Mean Platelet Volume 7.7 fL (7.0-11.0); Mono # (Auto) 1.7 th/mm3 (0.0-0.9); Neut # (Auto) 7.5 th/mm3 (1.8-7.7); Neut % (Auto) 57.9 % (16.0-70.0); Platelet Count 420 th/mm3 (150-450); Red Blood Count 2.89 mil/mm3 (4.00-5.30); Red Cell Distribution Width 23.9 % (11.6-17.2); White Blood Count 12.9 th/mm3 (4.0-11.0)
[2018-06-29 07:46] LABS: Alanine Aminotransferase 18 U/L (10-53)
[2018-06-29 07:47] LABS: Albumin 3.2 g/dL (3.4-5.0); Anion Gap 7 meq/L (5-15); Aspartate Aminotransferase 44 U/L (15-37); Blood Urea Nitrogen 4 mg/dL (7-18); Calcium 7.9 mg/dL (8.5-10.1); Carbon Dioxide 26.7 meq/L (21.0-32.0); Chloride 107 meq/L (98-107); Glomerular Filtration Rate Greater Than 89 mL/min (>89); Glucose,Random 81 mg/dL (74-106); Sodium 141 meq/L (136-145)
[2018-06-29 07:48] LABS: Alkaline Phosphatase 77 U/L (45-117)
[2018-06-29 07:49] LABS: Potassium 3.5 meq/L (3.5-5.1)
[2018-06-29 08:20] LABS: Eosinophils 5 % (0-4); Lymphocytes 24 % (9-44); Monocytes 11 % (0-8); Tallied Nucleated RBC 7 (0-0)
[2018-06-29 08:21] LABS: Howell-Jolly Bodies Present; Sickle Cells 1+
[2018-06-29 08:22] LABS: Pappenheimer Bodies Present; Polychromasia 2.3 % (0.0-1.9)
[2018-06-29 08:23] LABS: Platelet Estimate Normal (Normal); Platelet Morphology Normal (Normal)
[2018-06-29] MEDS: Folic Acid 1 MG Tablet PO SCH (09:25)
[2018-06-29] MEDS: Senna/Docusate Sodium 8.6/50 MG Tablet PO SCH ×2 (09:33→21:23)
[2018-06-29] MEDS ORDERED: Pharmacy Ordered Lab Info OTHER ONE (09:45)
[2018-06-29] MEDS: Vancomycin Inj 1,250 MG in Sodium Chlor 0.9% Inj 250 ML IV.SIG SCH (09:57)
--- NOTE | 2018-06-29 10:38 | P.PNFP ---
Subjective Interval history: No acute events overnight. Patient lying in bed this morning. Patient states that she still has generalized pain. States that she is not ready to go home yet. States that her nausea is better with Compazine. Reports that she is afraid to eat due to nausea vomiting. Discussed with patient about decreasing fluids to stimulate appetite. Patient agreed and understood. Denies chest pain, shortness of breath, abdominal pain. <BooneHeydisteve Barahona T - 06/29/18 14:22> Results - Labs Result diagrams: 06/29/18 06:00 06/29/18 06:00 <Jesus Ramesh L - 06/29/18 17:53> Abnormal lab results 06/29/18 06/29/18 06/29/18 Range/Units 06:00 06:00 09:45 WBC 12.9 H (4.0-11.0) th/mm3 RBC 2.89 L (4.00-5.30) mil/mm3 Hgb 8.2 L (11.6-15.3) gm/dL Hct 24.5 L (35.0-46.0) % RDW 23.9 H (11.6-17.2) % [place] % (Auto) 13.0 H (0.0-8.0) % Eos % (Auto) 5.7 H (0.0-4.0) % [place] # (Auto) 1.7 H (0.0-0.9) th/mm3 Eos # (Auto) 0.7 H (0.0-0.4) th/mm3 Monocytes % (Manual) 11 H (0-8) % Eosinophils % (Manual) 5 H (0-4) % Nucleated RBCs/100 WBC 7 H (0-0) /100 WBC Polychromasia 2.3 H (0.0-1.9) % Pappenheimer Bodies Present H (None) Sickle Cells 1+ H (None) Karimi-[place] Bodies Present H (None) BUN 4 L (7-18) mg/dL Calcium 7.9 L (8.5-10.1) mg/dL Total Bilirubin 1.1 H (0.2-1.0) mg/dL AST 44 H (15-37) U/L Albumin 3.2 L (3.4-5.0) g/dL Vancomycin Trough 11.2 H (5.0-10.0) mcg/mL Short CBC 06/29/18 Range/Units 06:00 WBC 12.9 H (4.0-11.0) th/mm3 Hgb 8.2 L (11.6-15.3) gm/dL Hct 24.5 L (35.0-46.0) % Plt Count 420 (150-450) th/mm3 BMP 06/29/18 06:00 Sodium 141 Potassium 3.5 Chloride 107 Carbon Dioxide 26.7 BUN 4 L Creatinine 0.56 Calcium 7.9 L Liver Function 06/29/18 Range/Units 06:00 Total Bilirubin 1.1 H (0.2-1.0) mg/dL AST 44 H (15-37) U/L ALT 18 (10-53) U/L Alkaline Phosphatase 77 (45-117) U/L Albumin 3.2 L (3.4-5.0) g/dL <Young,Jesus L - 06/29/18 17:53> Abnormal lab results 06/29/18 06/29/18 06/29/18 Range/Units 06:00 06:00 09:45 WBC 12.9 H (4.0-11.0) th/mm3 RBC 2.89 L (4.00-5.30) mil/mm3 Hgb 8.2 L (11.6-15.3) gm/dL Hct 24.5 L (35.0-46.0) % RDW 23.9 H (11.6-17.2) % [place] % (Auto) 13.0 H (0.0-8.0) % Eos % (Auto) 5.7 H (0.0-4.0) % [place] # (Auto) 1.7 H (0.0-0.9) th/mm3 Eos # (Auto) 0.7 H (0.0-0.4) th/mm3 Monocytes % (Manual) 11 H (0-8) % Eosinophils % (Manual) 5 H (0-4) % Nucleated RBCs/100 WBC 7 H (0-0) /100 WBC Polychromasia 2.3 H (0.0-1.9) % Pappenheimer Bodies Present H (None) Sickle Cells 1+ H (None) Karimi-[place] Bodies Present H (None) BUN 4 L (7-18) mg/dL Calcium 7.9 L (8.5-10.1) mg/dL Total Bilirubin 1.1 H (0.2-1.0) mg/dL AST 44 H (15-37) U/L Albumin 3.2 L (3.4-5.0) g/dL Vancomycin Trough 11.2 H (5.0-10.0) mcg/mL Short CBC 06/29/18 Range/Units 06:00 WBC 12.9 H (4.0-11.0) th/mm3 Hgb 8.2 L (11.6-15.3) gm/dL Hct 24.5 L (35.0-46.0) % Plt Count 420 (150-450) th/mm3 BMP 06/29/18 06:00 Sodium 141 Potassium 3.5 Chloride 107 Carbon Dioxide 26.7 BUN 4 L Creatinine 0.56 Calcium 7.9 L Liver Function 06/29/18 Range/Units 06:00 Total Bilirubin 1.1 H (0.2-1.0) mg/dL AST 44 H (15-37) U/L ALT 18 (10-53) U/L Alkaline Phosphatase 77 (45-117) U/L Albumin 3.2 L (3.4-5.0) g/dL <Zenaida Shook T - 06/29/18 10:38> Physical Exam Vital signs: Vital Signs 06/28/18 20:00 06/29/18 00:00 06/29/18 12:00 Temperature 99.1 F 98.8 F 98.1 F Pulse Rate 71 86 90 Respiratory Rate 18 18 16 Blood Pressure 135/62 138/76 113/57 L Pulse Oximetry 95 97 96 06/29/18 16:00 Temperature 98.3 F Pulse Rate 69 Respiratory Rate 16 Blood Pressure 128/62 Pulse Oximetry 94 L Intake & Output 06/28/18 06/29/18 06/29/18 18:59 06:59 18:59 Intake Total 2021. / 2021. 262.5 / 262.5 1262.5 / 1262.5 Balance 262.5 / 262.5 1262.5 / 1262.5 Weight 79.4 kg Intake: IV 1062.5 / 1062.5 262.5 / 262.5 1262.5 / 1262.5 NS Inj 1,000 ML @ 60 mls/hr IV. 800 / 800 1000 / 1000 CONT .[id number] [facility] Rx#:[id number] Vancomycin Inj 1,250 MG In NS 262.5 / 262.5 262.5 / 262.5 262.5 / 262.5 Inj 250 ML @ 262.5 mls/hr IV. SIG Q12H [facility] Rx#:[id number] Oral 960 / 960 Other: # Voids 3 3 Date of Last Bowel Movement 06/28/18 <Jesus Ramesh - 06/29/18 17:53> Vital Signs 06/28/18 12:00 06/28/18 16:00 06/28/18 20:00 Temperature 98.8 F 98.7 F 99.1 F Pulse Rate 73 73 71 Respiratory Rate 18 18 18 Blood Pressure 129/60 130/66 135/62 Pulse Oximetry 96 97 95 06/29/18 00:00 Temperature 98.8 F Pulse Rate 86 Respiratory Rate 18 Blood Pressure 138/76 Pulse Oximetry 97 Intake & Output 06/28/18 06/29/18 06/29/18 18:59 06:59 18:59 Intake Total 2022.5 / 2022.5 262.5 / 262.5 Balance 2022.5 / 2022.5 262.5 / 262.5 Weight 79.4 kg Intake: IV 1062.5 / 1062.5 262.5 / 262.5 NS Inj 1,000 ML @ 120 mls/hr IV 800 / 800 .CONT .Q8H20M [facility] Rx#:[id number] Vancomycin Inj 1,250 MG In NS 262.5 / 262.5 262.5 / 262.5 Inj 250 ML @ 262.5 mls/hr IV. SIG Q12H [facility] Rx#:[id number] Oral 960 / 960 Other: # Voids 3 3 Date of Last Bowel Movement 06/28/18 <Zenaida Shook T - 06/29/18 10:38> Narrative: GENERAL: Well-nourished, well-developed patient. No acute distress. SKIN: Warm and dry. No rash. No jaundice. EYES: No scleral icterus. No injection or drainage. PERRLA. EOMI. CARDIOVASCULAR: Regular rate and rhythm without obvious murmurs, gallops, or rubs. Patient has place port on right side of chest. RESPIRATORY: Breath sounds equal bilaterally. No accessory muscle use. CTAB. GASTROINTESTINAL: Abdomen soft, non-tender, nondistended. BS WNL. MUSCULOSKELETAL: No cyanosis or edema. Strength grossly WNL. No swelling of digits. BACK: Nontender without obvious deformity. No CVA tenderness. NEURO/PSYCH: Afocal. Awake, alert, and oriented x3. <Zenaida Shook T - 06/29/18 14:22> Assessment and Plan - Assessment (1) Bacteremia Code(s): R78.81 - Bacteremia Status: Acute (2) Sickle cell anemia with pain Code(s): D57.00 - Hb-SS disease with crisis, unspecified Status: Acute (3) Nutrition, metabolism, and development symptoms Code(s): R63.8 - Other symptoms and signs concerning food and fluid intake Status: Acute <Jesus Ramesh - 06/29/18 17:53> (1) Bacteremia Code(s): R78.81 - Bacteremia Status: Acute Plan: Bacteremia due to staph epidermidis in all initial blood Cx tubes, etiology unclear, no history of IVDU Patient with acute on chronic leukocytosis, WBC trending down. Repeat blood cultures June 24 showed NGTD. * Continue vancomycin, pharmacy consulted * Transition to clindamycin when patient goes home * Zofran 4mg q6h or Compazine 5mg q6h PRN for N/V (2) Sickle cell anemia with pain Code(s): D57.00 - Hb-SS disease with crisis, unspecified Status: Acute Plan: Sickle cell pain crisis, Hgb now stable near patient's baseline of 7. Patient continues to increase in hemoglobin. Patient to begin menstrual period soon, evaluate H/H. * Hem/onc consulted, appreciate recs * Transfuse only if patient drops below 6 hemoglobin again; currently iron overloaded with a ferritin of 5290. * Patient to bring home Exjade * s/p 1 unit of PRBCs on 06/23 * Additional pain control with: * Benadryl 25mg PO q4h PRN for itching or rash, pharmacy out of IV Benadryl * Continue Dilaudid 3mg IV every 4 for pain 6-10 * Plan to decrease IV pain medication if continuing to improve based on patient report (3) Nutrition, metabolism, and development symptoms Code(s): R63.8 - Other symptoms and signs concerning food and fluid intake Status: Acute Plan: Fluids: NS 60mls/hr Electrolytes: Replete as needed Nutrition: Regular diet DVT prophylaxis: SCDs and early ambulation <Zenaida Shook - 06/29/18 14:17> - Attending Attestation The exam, history, and the medical decision-making described in the above note were completed with the assistance of the resident physician. I reviewed and agree with the findings presented. I attest that I had a [id number] encounter with the patient on the same day, and personally performed and documented my assessment and findings in the medical record. Discussed and evaluated patient with residents this morning. <Jesus Ramesh - 06/29/18 17:53>
--- NOTE | 2018-06-29 16:13 | P.PNONC ---
Subjective Interval history: Patient resting in bed, she reports her "all over pain is a little better" She continues to not feel well. Currently complaining of nausea. She reports the nurse just gave her Zofran. Objective Vital Signs/Intake & Output: Vital Signs 06/28/18 20:00 06/29/18 00:00 06/29/18 12:00 Temperature 99.1 F 98.8 F 98.1 F Pulse Rate 71 86 90 Respiratory Rate 18 18 16 Blood Pressure 135/62 138/76 113/57 L Pulse Oximetry 95 97 96 06/29/18 16:00 Temperature 98.3 F Pulse Rate 69 Respiratory Rate 16 Blood Pressure 128/62 Pulse Oximetry 94 L Intake & Output 06/28/18 06/29/18 06/29/18 18:59 06:59 18:59 Intake Total 2022.5 / 2022.5 262.5 / 262.5 262.5 / 262.5 Balance 2022.5 / 2022.5 262.5 / 262.5 262.5 / 262.5 Weight 79.4 kg Intake: IV 1062.5 / 1062.5 262.5 / 262.5 262.5 / 262.5 NS Inj 1,000 ML @ 120 mls/hr IV 800 / 800 .CONT .[id number] [facility] Rx#:[id number] Vancomycin Inj 1,250 MG In NS 262.5 / 262.5 262.5 / 262.5 262.5 / 262.5 Inj 250 ML @ 262.5 mls/hr IV. SIG Q12H [facility] Rx#:[id number] Oral 960 / 960 Other: # Voids 3 3 Date of Last Bowel Movement 06/28/18 Result Diagrams: 06/29/18 06:00 06/29/18 06:00 Laboratory Results: Laboratory Results - last 24 hr 06/29/18 06/29/18 06/29/18 06:00 06:00 09:45 WBC 12.9 H RBC 2.89 L Hgb 8.2 L Hct 24.5 L MCV 84.8 MCH 28.6 MCHC 33.7 RDW 23.9 H Plt Count 420 MPV 7.7 Prelim Diff (Auto) Slide review pending Neut % (Auto) 57.9 Lymph % (Auto) 22.1 [place] % (Auto) 13.0 H Eos % (Auto) 5.7 H Baso % (Auto) 1.3 Neut # (Auto) 7.5 Lymph # (Auto) 2.8 [place] # (Auto) 1.7 H Eos # (Auto) 0.7 H Baso # (Auto) 0.2 WBC Differential Manual diff final Seg Neuts % (Manual) 55 Band Neuts % (Manual) 3 Lymphocytes % (Manual) 24 Monocytes % (Manual) 11 H Eosinophils % (Manual) 5 H Basophils % (Manual) 2 Abs Neuts (Manual) 7.5 Nucleated RBCs/100 WBC 7 H Differential Comment . Platelet Estimate Normal Platelet Morphology Normal Polychromasia 2.3 H Pappenheimer Bodies Present H Sickle Cells 1+ H [place] Bodies Present H Sodium 141 Potassium 3.5 Chloride 107 Carbon Dioxide 26.7 Anion Gap 7 BUN 4 L Creatinine 0.56 Estimated GFR Greater than 89 Random Glucose 81 Calcium 7.9 L Total Bilirubin 1.1 H AST 44 H ALT 18 Alkaline Phosphatase 77 Total Protein 7.0 Albumin 3.2 L Vancomycin Trough 11.2 H Culture Results: Microbiology 06/24/18 15:46 Aerobic Blood Culture - Final Blood - Peripheral No growth in 5 days Anaerobic Blood Culture - Final No growth in 5 days 06/24/18 15:46 Aerobic Blood Culture - Final Blood - Peripheral No growth in 5 days Anaerobic Blood Culture - Final No growth in 5 days Medications: Active Medications Generic Name Dose Route Start Last Admin Trade Name Freq PRN Reason Stop Dose Admin Diphenhydramine HCl 25 mg 06/24/18 15:48 06/29/18 13:25 Benadryl PO 25 mg Q4H PRN Administration ITCHING Folic Acid 1 mg 06/21/18 14:15 06/29/18 09:25 Folic Acid PO 1 mg DAILY [facility] Administration Hydromorphone HCl 3 mg 06/22/18 08:38 06/29/18 13:25 Dilaudid Pf Inj IV.PUSH 3 mg Q4H PRN Administration Pain 6-10 Sodium Chloride 1,000 mls @ 60 mls/hr 06/23/18 11:15 06/29/18 09:32 Ns Inj IV.CONT Not Given .[id number] [facility] Ondansetron HCl 4 mg 06/24/18 15:45 06/27/18 21:47 Zofran Inj IV.PUSH 4 mg Q6H PRN Administration NAUSEA OR VOMITING Prochlorperazine Edisylate 5 mg 06/25/18 08:32 06/29/18 13:30 Compazine Inj IV.PUSH 5 mg Q6H PRN Administration nausesa/vomiting Senna/Docusate Sodium 1 tab 06/22/18 09:00 06/29/18 09:33 Malissa-Colace PO Not Given BID [facility] Sodium Chloride 2 ml 06/21/18 21:00 06/29/18 08:08 Ns Flush IV.FLUSH Not Given BID [facility] Sodium Chloride 2 ml 06/21/18 12:00 06/29/18 05:34 Ns Flush IV.FLUSH 2 ml UNSCH PRN Administration FLUSH AFTER USING IV ACCESS Zolpidem Tartrate 5 mg 06/21/18 21:00 06/28/18 21:34 Ambien PO 5 mg HS [facility] Administration Objective Remarks: GENERAL: Well-nourished, well-developed young female patient, in no acute distress. SKIN: Warm and dry. Port access to right chest wall, drsg dry/intact. HEAD: Normocephalic. EYES: No scleral icterus. No injection or drainage. NECK: Supple, trachea midline. CARDIOVASCULAR: Regular rate and rhythm without murmurs. RESPIRATORY: Posterior Breath sounds clear, equal bilaterally. Non-labored at rest. On room air. GASTROINTESTINAL: Abdomen soft, non-tender, nondistended. EXTREMITIES: No cyanosis, or edema. MUSCULOSKELETAL: Adequate muscle tone. NEUROLOGICAL: No obvious focal deficit. Awakens easily, alert, and oriented x3. PSYCHIATRIC: Appropriate mood and affect; insight and judgment normal. Assessment/Plan - Plan Ms. Frazier is a pleasant 27 year old female patient with history of sickle cell anemia. Currently admitted for pain crisis. 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 Recommendations: 1. Sickle cell anemia with iron overload, plan to only transfuse 1 unit packed red blood cells if hemoglobin drops less than 6.0. Hemoglobin is stable at 8.2. 2. Repeat blood cultures show no growth times 5 days. Currently on vancomycin. Management per attending. 3. Recommend transitioning to oral pain medication. 4. We will sign off from a hematology standpoint, kindly call if needed. - Attending Statement The exam, history, and the medical decision-making described in the above note were completed with the assistance of the mid-level provider. I reviewed and agree with the findings presented. I attest that I had a [id number] encounter with the patient on the same day, and personally performed and documented my assessment and findings in the medical record. Patient continues to have pain all over, although she claims that it is little bit better Recommend to transition IV narcotics to p.o. No further hematology input Sign off Available as needed Call back if any further questions
[2018-06-29] MEDS: Vancomycin Inj 1,500 MG in Sodium Chlor 0.9% Inj 500 ML IV.SIG SCH (21:19)
[2018-06-29] MEDS: Zolpidem Tartrate 5 MG Tablet PO SCH (21:22)
[2018-06-30] MEDS: HYDROmorphone PF Inj 2 MG/ML Vial IV.PUSH PRN ×6 (01:16→22:29)
[2018-06-30 07:56] LABS: Baso # (Auto) 0.2 th/mm3 (0.0-0.2); Baso % (Auto) 1.5 % (0.0-2.0); Eos # (Auto) 0.6 th/mm3 (0.0-0.4); Eos % (Auto) 4.8 % (0.0-4.0); Hematocrit 21.4 % (35.0-46.0); Hemoglobin 7.5 gm/dL (11.6-15.3); Lymph # (Auto) 2.6 th/mm3 (1.0-4.8); Mean Corpuscular HGB Conc 34.9 % (32.0-36.0); Mean Corpuscular Hemoglobin 29.1 pg (27.0-34.0); Mean Corpuscular Volume 83.3 fL (80.0-100.0); Mean Platelet Volume 7.3 fL (7.0-11.0); Mono # (Auto) 1.9 th/mm3 (0.0-0.9); Mono % (Auto) 14.3 % (0.0-8.0); Neut # (Auto) 7.8 th/mm3 (1.8-7.7); Neut % (Auto) 59.4 % (16.0-70.0); Platelet Count 422 th/mm3 (150-450); Red Blood Count 2.57 mil/mm3 (4.00-5.30); Red Cell Distribution Width 22.4 % (11.6-17.2); White Blood Count 13.2 th/mm3 (4.0-11.0)
[2018-06-30 08:14] LABS: Anion Gap 6 meq/L (5-15); Blood Urea Nitrogen 4 mg/dL (7-18); Calcium 8.2 mg/dL (8.5-10.1); Carbon Dioxide 28.1 meq/L (21.0-32.0); Chloride 108 meq/L (98-107); Glomerular Filtration Rate Greater Than 89 mL/min (>89); Glucose,Random 89 mg/dL (74-106); Potassium 3.2 meq/L (3.5-5.1); Sodium 142 meq/L (136-145)
[2018-06-30] MEDS: Vancomycin Inj 1,500 MG in Sodium Chlor 0.9% Inj 500 ML IV.SIG SCH ×2 (09:23→21:10)
[2018-06-30] MEDS: Folic Acid 1 MG Tablet PO SCH (09:24)
[2018-06-30] MEDS: Senna/Docusate Sodium 8.6/50 MG Tablet PO SCH ×2 (09:26→21:14)
[2018-06-30 10:27] LABS: Reticulocyte Percent 20.9 % (0.4-3.0)
[2018-06-30 10:38] LABS: Lactate Dehydrogenase 353 U/L (84-246)
[2018-06-30] MEDS: Ibuprofen 600 MG Tablet PO SCH ×2 (12:54→17:51)
--- NOTE | 2018-06-30 14:22 | ECHRPT ---
Indication: SEPSIS POSS ENDOCARDITIS CONCLUSIONS Possible slight left ventricular enlargement. Wall thickness is measured at the upper limits of norm al. The left ventricular systolic function is mildly reduced with an estimated ejection fraction in the range of 45- 50%. Possible mild septal hypokinesis. There is trace tricuspid valve regurgitation. BP: / HR: Rhythm: Sinus MEASUREMENTS (Male / Female) Normal Values Technical Quality:Fair 2D ECHO LV Diastolic Diameter PLAX 5.7 cm 4.2 - 5.9 / 3.9 - 5.3 cm LV Systolic Diameter PLAX 4.3 cm IVS Diastolic Thickness 1.2 cm 0.6 - 1.0 / 0.6 - 0.9 cm LVPW Diastolic Thickness 1.1 cm 0.6 - 1.0 / 0.6 - 0.9 cm LV Relative Wall Thickness 0.4 RV Internal Dim ED PLAX 2.8 cm LVOT Diameter 2.4 cm Aortic Root Diameter 2.9 cm LA Systolic Diameter LX 4.7 cm 3.0 - 4.0 / 2.7 - 3.8 cm DOPPLER TR Peak Velocity 82.8 cm/s TR Peak Gradient 2.7 mmHg Right Atrial Pressure 10.0 mmHg Pulmonary Artery Systolic Pressu 12.7 mmHg Right Ventricular Systolic Press 12.7 mmHg PV Peak Velocity 83.9 cm/s PV Peak Gradient 2.8 mmHg FINDINGS LEFT VENTRICLE Possible slight left ventricular enlargement. Wall thickness is measured at the upper limits of norm al. The left ventricular systolic function is mildly reduced with an estimated ejection fraction in the range of 45- 50%. Possible mild septal hypokinesis. RIGHT VENTRICLE Normal right ventricular size and systolic function. LEFT ATRIUM The left atrial size is normal. RIGHT ATRIUM The right atrial size is normal. ATRIAL SEPTUM Normal atrial septal thickness without atrial level shunting by limited color doppler interrogation. AORTA The aortic root and proximal ascending aorta are normal in size on limited imaging. MITRAL VALVE Structurally normal mitral valve. No mitral valve stenosis or regurgitation. AORTIC VALVE Trileaflet aortic valve. TRICUSPID VALVE There is trace tricuspid valve regurgitation. PULMONARY VALVE No pulmonary valve regurgitation or stenosis. PERICARDIUM There is no pericardial effusion. Dmitriy Boggs MD (Electronically Signed) Final Date:30 June 2018 14:21
--- NOTE | 2018-06-30 15:55 | P.PNFP ---
Subjective Interval history: 27 yo female with sickle cell anemia admitted for pain crisis now being seen for f/u. Still having poor appetite, pain overall improved from admission. Reports regular BM. No CP/SOB. Afebrile. <PerfectoGarett S - 06/30/18 15:54> Results - Labs Result diagrams: 07/01/18 05:50 07/01/18 08:45 <Jesus Ramesh L - 07/01/18 11:43> Abnormal lab results 07/01/18 07/01/18 Range/Units 05:50 08:45 WBC 12.0 H (4.0-11.0) th/mm3 RBC 2.65 L (4.00-5.30) mil/mm3 Hgb 7.4 L (11.6-15.3) gm/dL Hct 22.0 L (35.0-46.0) % RDW 22.2 H (11.6-17.2) % [place] % (Auto) 14.4 H (0.0-8.0) % Eos % (Auto) 6.1 H (0.0-4.0) % [place] # (Auto) 1.7 H (0.0-0.9) th/mm3 Eos # (Auto) 0.7 H (0.0-0.4) th/mm3 BUN 4 L (7-18) mg/dL Calcium 8.1 L (8.5-10.1) mg/dL Vancomycin Trough 16.6 H (5.0-10.0) mcg/mL Short CBC 07/01/18 Range/Units 05:50 WBC 12.0 H (4.0-11.0) th/mm3 Hgb 7.4 L (11.6-15.3) gm/dL Hct 22.0 L (35.0-46.0) % Plt Count 419 (150-450) th/mm3 BMP 07/01/18 08:45 Sodium 140 Potassium 3.5 Chloride 105 Carbon Dioxide 26.3 BUN 4 L Creatinine 0.60 Calcium 8.1 L <Jesus Ramesh - 07/01/18 11:43> Abnormal lab results 06/30/18 06/30/18 06/30/18 Range/Units 07:24 07:24 07:24 WBC 13.2 H (4.0-11.0) th/mm3 RBC 2.57 L (4.00-5.30) mil/mm3 Hgb 7.5 L (11.6-15.3) gm/dL Hct 21.4 L (35.0-46.0) % RDW 22.4 H (11.6-17.2) % [place] % (Auto) 14.3 H (0.0-8.0) % Eos % (Auto) 4.8 H (0.0-4.0) % Neut # (Auto) 7.8 H (1.8-7.7) th/mm3 [place] # (Auto) 1.9 H (0.0-0.9) th/mm3 Eos # (Auto) 0.6 H (0.0-0.4) th/mm3 Retic Count (0.4-3.0) % Absolute Retic (20.0-150.0) mil/L Haptoglobin Less than 10 L (30-200) mg/dL Potassium 3.2 L (3.5-5.1) meq/L Chloride 108 H (98-107) meq/L BUN 4 L (7-18) mg/dL Calcium 8.2 L (8.5-10.1) mg/dL Lactate Dehydrogenase 353 H (84-246) U/L 06/30/18 Range/Units 07:24 WBC (4.0-11.0) th/mm3 RBC (4.00-5.30) mil/mm3 Hgb (11.6-15.3) gm/dL Hct (35.0-46.0) % RDW (11.6-17.2) % [place] % (Auto) (0.0-8.0) % Eos % (Auto) (0.0-4.0) % Neut # (Auto) (1.8-7.7) th/mm3 [place] # (Auto) (0.0-0.9) th/mm3 Eos # (Auto) (0.0-0.4) th/mm3 Retic Count 20.9 H (0.4-3.0) % Absolute Retic 532.1 H (20.0-150.0) mil/L Haptoglobin (30-200) mg/dL Potassium (3.5-5.1) meq/L Chloride (98-107) meq/L BUN (7-18) mg/dL Calcium (8.5-10.1) mg/dL Lactate Dehydrogenase (84-246) U/L Short CBC 06/30/18 Range/Units 07:24 WBC 13.2 H (4.0-11.0) th/mm3 Hgb 7.5 L (11.6-15.3) gm/dL Hct 21.4 L (35.0-46.0) % Plt Count 422 (150-450) th/mm3 BMP 06/30/18 07:24 Sodium 142 Potassium 3.2 L Chloride 108 H Carbon Dioxide 28.1 BUN 4 L Creatinine 0.52 Calcium 8.2 L <Garett Grove S - 06/30/18 15:54> Physical Exam Vital signs: Vital Signs 06/30/18 16:00 06/30/18 20:00 07/01/18 00:00 Temperature 98.3 F 98.8 F 98.7 F Pulse Rate 79 74 75 Respiratory Rate 16 18 18 Blood Pressure 120/67 119/69 129/76 Pulse Oximetry 98 96 96 07/01/18 08:00 Temperature 98.1 F Pulse Rate 74 Respiratory Rate 18 Blood Pressure 124/60 Pulse Oximetry 96 Intake & Output 06/30/18 07/01/18 07/01/18 18:59 06:59 18:59 Intake Total 991 / 991 755 / 755 515 / 515 Balance 991 / 991 755 / 755 515 / 515 Weight 78.7 kg Intake: IV 991 / 991 515 / 515 515 / 515 NS Inj 1,000 ML @ 60 mls/hr IV. 476 / 476 CONT .[id number] [facility] Rx#:[id number] Vancomycin Inj 1,500 MG In NS 515 / 515 515 / 515 515 / 515 Inj 500 ML @ 250 mls/hr IV.SIG Q12H [facility] Rx#:[id number] Oral 240 / 240 Other: # Voids 1 Date of Last Bowel Movement 06/29/18 06/29/18 06/29/18 <Jesus Ramesh - 07/01/18 11:43> Vital Signs 06/29/18 16:00 06/29/18 20:00 06/29/18 21:32 Temperature 98.3 F 98.0 F Pulse Rate 69 73 Respiratory Rate 16 18 Blood Pressure 128/62 120/64 Pulse Oximetry 94 L 96 96 06/30/18 00:00 06/30/18 08:00 06/30/18 09:16 Temperature 98.4 F 98.3 F Pulse Rate 85 79 Respiratory Rate 17 16 Blood Pressure 117/76 132/66 Pulse Oximetry 95 95 97 Intake & Output 06/29/18 06/30/18 06/30/18 18:59 06:59 18:59 Intake Total 1262.5 / 1262.5 1954 991 / 991 Balance 1262.5 / 1262.5 1954 991 / 991 Weight 79.4 kg Intake: IV 1262.5 / 1262.5 915 / 915 991 / 991 NS Inj 1,000 ML @ 60 mls/hr IV. 1000 / 1000 400 / 400 476 / 476 CONT .[id number] [facility] Rx#:[id number] Vancomycin Inj 1,250 MG In NS 262.5 / 262.5 Inj 250 ML @ 262.5 mls/hr IV. SIG Q12H [facility] Rx#:[id number] Vancomycin Inj 1,500 MG In NS 515 / 515 515 / 515 Inj 500 ML @ 250 mls/hr IV.SIG Q12H [facility] Rx#:[id number] Oral 1040 / 1040 Other: # Voids 3 Date of Last Bowel Movement 06/29/18 06/29/18 <Garett Grove S - 06/30/18 15:54> - Constitutional no acute distress, average body habitus, cooperative <Garett Grove S - 15:54> - Routine HEENT Exam Head: Present: normocephalic, atraumatic <Garett Grove S - 06/30/18 15:54> - Routine Respiratory Exam Present: CTA bilaterally. Absent: accessory muscle use, wheezes, crackles < Garett Grove S - 06/30/18 15:54> - Routine Cardiovascular Exam Present: RRR, S1, S2 <Garett Grove S - 06/30/18 15:54> - Routine Abdominal Exam Absent: soft, tenderness, distended <Garett Grove S - 06/30/18 15:54> - Routine Extremities Exam Absent: cyanosis, edema <Garett Grove S - 06/30/18 15:54> - Routine Neurological Exam Present: alert, oriented X3 <Garett Grove S - 06/30/18 15:54> Assessment and Plan - Assessment (1) Bacteremia Code(s): R78.81 - Bacteremia Status: Acute (2) Sickle cell anemia with pain Code(s): D57.00 - Hb-SS disease with crisis, unspecified Status: Acute (3) Nutrition, metabolism, and development symptoms Code(s): R63.8 - Other symptoms and signs concerning food and fluid intake Status: Acute <Jesus Ramesh - 07/01/18 11:43> (1) Bacteremia Code(s): R78.81 - Bacteremia Status: Acute Plan: Bacteremia due to staph epidermidis in all initial blood Cx tubes, etiology unclear, no history of IVDU Patient with acute on chronic leukocytosis, WBC trending down. Repeat blood cultures June 24 showed NGTD. Echocardiogram 06/30 showed no vegetations that would suggest endocarditis * Continue vancomycin, pharmacy consulted * Transition to clindamycin when discharged to complete 14 days from negative blood culture * Monitor port for signs of infection, so far looks good * Zofran 4mg q6h or Compazine 5mg q6h PRN for N/V (2) Sickle cell anemia with pain Code(s): D57.00 - Hb-SS disease with crisis, unspecified Status: Acute Plan: Sickle cell pain crisis, Hgb now stable near patient's baseline of 7. Patient continues to increase in hemoglobin. Patient to begin menstrual period soon, evaluate H/H. * Hem/onc consulted, appreciate recs * Transfuse only if patient drops below 6 hemoglobin again; currently iron overloaded with a ferritin of 5290. * Patient to bring home Exjade and continue * s/p 1 unit of PRBCs on 06/23 * Pain control * Benadryl 25mg PO q4h PRN for itching or rash, pharmacy out of IV Benadryl * [place] 10 mg Q6H scheduled (patient's home dose) * [place] 5-10 mg PO Q4H based on pain scale * Continue Dilaudid at reduced dose 2mg IV Q4H for breakthrough pain (3) Nutrition, metabolism, and development symptoms Code(s): R63.8 - Other symptoms and signs concerning food and fluid intake Status: Acute Plan: Fluids: PO only Electrolytes: Replete as needed Nutrition: Regular diet DVT prophylaxis: SCDs and early ambulation <Garett Grove - 06/30/18 15:48> - Assessment and Plan Discharge Planning: Pending weaning of IV pain medication <Garett Grove - 06/30/18 15:54> - Attending Attestation I discussed and evaluated the patient with the residents Dr. Grove and Dr. Shook yesterday morning, and agree with documentation, assessment, and plan. Patient is tapering pain medication hopefully to oral with plan for possible discharge tomorrow. Pain crisis resolving. Hemoglobin is stable. Being treated for staph epidermidis bacteremia, will obtain TTE and assess for endocarditis given bacteremia. <Jesus Ramesh - 07/01/18 11:43>
[2018-06-30] MEDS: Zolpidem Tartrate 5 MG Tablet PO SCH (21:10)
[2018-07-01] MEDS: HYDROmorphone PF Inj 2 MG/ML Vial IV.PUSH PRN ×4 (02:26→14:21)
[2018-07-01 06:45] LABS: Baso # (Auto) 0.2 th/mm3 (0.0-0.2); Eos # (Auto) 0.7 th/mm3 (0.0-0.4); Eos % (Auto) 6.1 % (0.0-4.0); Hemoglobin 7.4 gm/dL (11.6-15.3); Lymph # (Auto) 2.9 th/mm3 (1.0-4.8); Lymph % (Auto) 24.4 % (9.0-44.0); Mean Corpuscular HGB Conc 33.7 % (32.0-36.0); Mean Corpuscular Volume 83.1 fL (80.0-100.0); Mean Platelet Volume 7.8 fL (7.0-11.0); Mono # (Auto) 1.7 th/mm3 (0.0-0.9); Mono % (Auto) 14.4 % (0.0-8.0); Neut # (Auto) 6.4 th/mm3 (1.8-7.7); Neut % (Auto) 53.1 % (16.0-70.0); Platelet Count 419 th/mm3 (150-450); Red Blood Count 2.65 mil/mm3 (4.00-5.30); Red Cell Distribution Width 22.2 % (11.6-17.2)
[2018-07-01] MEDS ORDERED: Pharmacy Ordered Lab Info OTHER ONE (08:45)
[2018-07-01] MEDS: Ibuprofen 600 MG Tablet PO SCH ×2 (08:48→13:30)
[2018-07-01] MEDS: Folic Acid 1 MG Tablet PO SCH (08:48)
[2018-07-01] MEDS: Vancomycin Inj 1,500 MG in Sodium Chlor 0.9% Inj 500 ML IV.SIG SCH (08:49)
[2018-07-01] MEDS: Senna/Docusate Sodium 8.6/50 MG Tablet PO SCH (08:54)
--- NOTE | 2018-07-01 09:12 | P.PNFP ---
Subjective Interval history: No acute events overnight. Patient states that her pain is controlled with Lagrange and Dilaudid as needed for breakthrough. Patient states that her period just started today. Discussed with patient that would not be a reason for her to stay in the hospital. Reports that she has some abdominal cramps. She will follow-up with Dr. Gamino as an outpatient. States that her appetite has improved. Denies fevers, nausea vomiting, chest pain, shortness of breath. <Zenaida Shook T - 07/01/18 10:43> Results - Labs Result diagrams: 07/01/18 05:50 07/01/18 08:45 <Jesus Ramesh L - 07/01/18 11:45> Abnormal lab results 07/01/18 07/01/18 Range/Units 05:50 08:45 WBC 12.0 H (4.0-11.0) th/mm3 RBC 2.65 L (4.00-5.30) mil/mm3 Hgb 7.4 L (11.6-15.3) gm/dL Hct 22.0 L (35.0-46.0) % RDW 22.2 H (11.6-17.2) % [place] % (Auto) 14.4 H (0.0-8.0) % Eos % (Auto) 6.1 H (0.0-4.0) % [place] # (Auto) 1.7 H (0.0-0.9) th/mm3 Eos # (Auto) 0.7 H (0.0-0.4) th/mm3 BUN 4 L (7-18) mg/dL Calcium 8.1 L (8.5-10.1) mg/dL Vancomycin Trough 16.6 H (5.0-10.0) mcg/mL Short CBC 07/01/18 Range/Units 05:50 WBC 12.0 H (4.0-11.0) th/mm3 Hgb 7.4 L (11.6-15.3) gm/dL Hct 22.0 L (35.0-46.0) % Plt Count 419 (150-450) th/mm3 BMP 07/01/18 08:45 Sodium 140 Potassium 3.5 Chloride 105 Carbon Dioxide 26.3 BUN 4 L Creatinine 0.60 Calcium 8.1 L <Jesus Ramseh - 07/01/18 11:45> Abnormal lab results 06/30/18 06/30/18 07/01/18 Range/Units 07:24 07:24 05:50 WBC 12.0 H (4.0-11.0) th/mm3 RBC 2.65 L (4.00-5.30) mil/mm3 Hgb 7.4 L (11.6-15.3) gm/dL Hct 22.0 L (35.0-46.0) % RDW 22.2 H (11.6-17.2) % [place] % (Auto) 14.4 H (0.0-8.0) % Eos % (Auto) 6.1 H (0.0-4.0) % [place] # (Auto) 1.7 H (0.0-0.9) th/mm3 Eos # (Auto) 0.7 H (0.0-0.4) th/mm3 Retic Count 20.9 H (0.4-3.0) % Absolute Retic 532.1 H (20.0-150.0) mil/L Haptoglobin Less than 10 L (30-200) mg/dL Lactate Dehydrogenase 353 H (84-246) U/L Short CBC 07/01/18 Range/Units 05:50 WBC 12.0 H (4.0-11.0) th/mm3 Hgb 7.4 L (11.6-15.3) gm/dL Hct 22.0 L (35.0-46.0) % Plt Count 419 (150-450) th/mm3 <Zenaida Shook T - 07/01/18 09:12> Physical Exam Vital signs: Vital Signs 06/30/18 16:00 06/30/18 20:00 07/01/18 00:00 Temperature 98.3 F 98.8 F 98.7 F Pulse Rate 79 74 75 Respiratory Rate 16 18 18 Blood Pressure 120/67 119/69 129/76 Pulse Oximetry 98 96 96 07/01/18 08:00 Temperature 98.1 F Pulse Rate 74 Respiratory Rate 18 Blood Pressure 124/60 Pulse Oximetry 96 Intake & Output 06/30/18 07/01/18 07/01/18 18:59 06:59 18:59 Intake Total 991 / 991 755 / 755 515 / 515 Balance 991 / 991 755 / 755 515 / 515 Weight 78.7 kg Intake: IV 991 / 991 515 / 515 515 / 515 NS Inj 1,000 ML @ 60 mls/hr IV. 476 / 476 CONT .[id number] [facility] Rx#:[id number] Vancomycin Inj 1,500 MG In NS 515 / 515 515 / 515 515 / 515 Inj 500 ML @ 250 mls/hr IV.SIG Q12H [facility] Rx#:[id number] Oral 240 / 240 Other: # Voids 1 Date of Last Bowel Movement 06/29/18 06/29/18 06/29/18 <Jesus Ramesh - 07/01/18 11:45> Vital Signs 06/30/18 09:16 06/30/18 16:00 06/30/18 20:00 Temperature 98.3 F 98.8 F Pulse Rate 79 74 Respiratory Rate 16 18 Blood Pressure 120/67 119/69 Pulse Oximetry 97 98 96 07/01/18 00:00 07/01/18 08:00 Temperature 98.7 F 98.1 F Pulse Rate 75 74 Respiratory Rate 18 18 Blood Pressure 129/76 124/60 Pulse Oximetry 96 96 Intake & Output 06/30/18 07/01/18 07/01/18 18:59 06:59 18:59 Intake Total 991 / 991 755 / 755 Balance 991 / 991 755 / 755 Weight 78.7 kg Intake: IV 991 / 991 515 / 515 NS Inj 1,000 ML @ 60 mls/hr IV. 476 / 476 CONT .[id number] [facility] Rx#:[id number] Vancomycin Inj 1,500 MG In NS 515 / 515 515 / 515 Inj 500 ML @ 250 mls/hr IV.SIG Q12H [facility] Rx#:[id number] Oral 240 / 240 Other: # Voids 1 Date of Last Bowel Movement 06/29/18 06/29/18 <Zenaida Shook - 07/01/18 09:12> Narrative: GENERAL: Well-nourished, well-developed patient. No acute distress. SKIN: Warm and dry. No rash. No jaundice. EYES: No scleral icterus. No injection or drainage. PERRLA. EOMI. CARDIOVASCULAR: Regular rate and rhythm without obvious murmurs, gallops, or rubs. Patient has place port on right side of chest. RESPIRATORY: Breath sounds equal bilaterally. No accessory muscle use. CTAB. GASTROINTESTINAL: Abdomen soft, non-tender, nondistended. BS WNL. MUSCULOSKELETAL: No cyanosis or edema. Strength grossly WNL. No swelling of digits. BACK: Nontender without obvious deformity. No CVA tenderness. NEURO/PSYCH: Afocal. Awake, alert, and oriented x3. <Zenaida Shook - 07/01/18 10:43> Assessment and Plan - Assessment (1) Bacteremia Code(s): R78.81 - Bacteremia Status: Acute (2) Sickle cell anemia with pain Code(s): D57.00 - Hb-SS disease with crisis, unspecified Status: Acute (3) Nutrition, metabolism, and development symptoms Code(s): R63.8 - Other symptoms and signs concerning food and fluid intake Status: Acute <Jesus Ramesh - 07/01/18 11:45> (1) Bacteremia Code(s): R78.81 - Bacteremia Status: Acute Plan: Bacteremia due to staph epidermidis in all initial blood Cx tubes, etiology unclear, no history of IVDU Patient with acute on chronic leukocytosis, WBC trending down. Repeat blood cultures June 24 showed NGTD. Echocardiogram 06/30 showed no vegetations that would suggest endocarditis * Continue vancomycin, pharmacy consulted (started on 06/29), patient was on Rocephin prior (06/22-06/29)-sensitivities show resistance to Rocephin, but sensitive to vanc and clinda * Transition to clindamycin when discharged to complete 14 days from negative blood culture * Monitor port for signs of infection, so far looks good * Zofran 4mg q6h or Compazine 5mg q6h PRN for N/V (2) Sickle cell anemia with pain Code(s): D57.00 - Hb-SS disease with crisis, unspecified Status: Acute Plan: Sickle cell pain crisis, Hgb now stable near patient's baseline of 7. H/H stable. * Hem/onc consulted, appreciate recs * Transfuse only if patient drops below 6 hemoglobin again; currently iron overloaded with a ferritin of 5290. * Patient to bring home Exjade and continue * Signed off, follow up with Dr. Gamino outpatient * s/p 1 unit of PRBCs on 06/23 * Pain control * Benadryl 25mg PO q4h PRN for itching or rash, pharmacy out of IV Benadryl * [place] 10 mg Q6H scheduled (patient's home dose) * [place] 5-10 mg PO Q4H based on pain scale * Continue Dilaudid at reduced dose 2mg IV Q4H for breakthrough pain (3) Nutrition, metabolism, and development symptoms Code(s): R63.8 - Other symptoms and signs concerning food and fluid intake Status: Acute Plan: Fluids: PO only Electrolytes: Replete as needed Nutrition: Regular diet DVT prophylaxis: SCDs and early ambulation <Zenaida Shook - 07/01/18 10:31> - Attending Attestation Patient seen and discussed with Dr. Shook this morning. Patients pain is well controlled with medication. She has some cramping related to menstruation. She reports appetite this morning. ECHO is negative for vegetations. Will transition to clindamycin to treat bacteremia outpatient. Discussed post discharge plan, especially the need to follow closely with art historian. Discussed taking multivitamin that does NOT contain iron. Would benefit from folic acid, and should discuss hydroxyurea with art historian. <Jesus Ramesh - 07/01/18 11:45>
[2018-07-01 09:42] LABS: Anion Gap 9 meq/L (5-15); Blood Urea Nitrogen 4 mg/dL (7-18); Calcium 8.1 mg/dL (8.5-10.1); Carbon Dioxide 26.3 meq/L (21.0-32.0); Chloride 105 meq/L (98-107); Glomerular Filtration Rate Greater Than 89 mL/min (>89); Glucose,Random 89 mg/dL (74-106); Potassium 3.5 meq/L (3.5-5.1); Sodium 140 meq/L (136-145)
[2018-07-01 09:47] LABS: Vancomycin,Trough 16.6 mcg/mL (5.0-10.0)
[2018-07-01] MEDS ORDERED: Heparin Central Flush 100 UNIT/ML 5 ML Vial IV.FLUSH PRN (15:35)
--- NOTE | 2018-07-01 15:41 | P.DS ---
Date of admission: 06/21/18 11:59 Primary care physician: No Primary Care Physician Brief History from admission: This patient is a 27-year-old female with a history of sickle cell anemia who presented to the ED with a 1 day history of left ear pain as well as generalized body pain. Ear pain: She reports that her left ear pain began yesterday. The pain is constant and she characterizes the pain in her ear as a pressure "like something is stuck in my ear". Patient has taken Tylenol extra strength as well as ibuprofen with no resolve. She has also tried putting a warm towel over her ear that also did not help. She denies any ear drainage and denies recent swimming or bathing. There are no other associated symptoms with her ear pain. She denies any recent illnesses but reports that her 5-year-old son was sick 1 week ago. Additionally she reports a one time episode of vomiting on Thursday night that was nonbloody and bilious. Since then, she has had no fevers, chills, nausea, vomiting, upper respiratory or GI symptoms. ear pain since yesterday in left ear. Characterized as pressure like something is stuck in my ear. Patient took tylenol XS and ibuprofen. Warm cloth which didn't help either. No recent illnesses. 5 year old had a cold a week ago. No drainage. Hearing feels stuffy. Has a minor headache now. No recent swimming, take showers not baths. Vomited Thursday night, billious non bloody. Generalized pain: Patient reports a 2-day history of generalized pain in her arms legs and back. She reports that the pain is very reminiscent of her sickle cell crisis. The pain is described as sharp and achy and generalized without radiation. She reports that the pain is constant without any exacerbating or alleviating factors and no other associated symptoms. Patient takes hydrocodone 10 mg every 6 hours outpatient. She reports staying hydrated due to her sickle cell. She does report that in the past warm showers as well as drink hot tea has helped. OBHx: , at 34 weeks due to polyhydramnios PMHx: Sickle anemia, asthma Surgical Hx: , Cholesectomy 18 years ago, 3 port placement for difficulty with IV access managed by Dr. 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 She reports living with her mother, she is sexually with men and has been with her bf for 4 years. Consumes alcohol at social events and drinks 1-2 drinks due to her sickle cell. denies use of illicit drugs Code: Full code DS: Diagnosis - Discharge Diagnosis (1) Bacteremia Status: Acute (2) Sickle cell anemia with pain Status: Acute (3) Nutrition, metabolism, and development symptoms Status: Acute DS: Medications - Discharge Medications Prescriptions: clindamycin HCl [Cleocin HCl] 600 mg PO TID 10 Days #60 cap Lacto.acidophilus-Bif.animalis [Daily Probiotic] 1 cap PO BID 10 Days #20 cap DS: Summary - Time Spent with Patient Total time spent providing and/or coordinating discharge services: Exam Vital signs: Vital Signs 06/30/18 16:00 06/30/18 20:00 07/01/18 00:00 Temperature 98.3 F 98.8 F 98.7 F Pulse Rate 79 74 75 Respiratory Rate 16 18 18 Blood Pressure 120/67 119/69 129/76 Pulse Oximetry 98 96 96 07/01/18 08:00 07/01/18 12:00 Temperature 98.1 F 97.8 F Pulse Rate 74 72 Respiratory Rate 18 19 Blood Pressure 124/60 124/79 Pulse Oximetry 96 79 L Intake & Output 06/30/18 07/01/18 07/01/18 18:59 06:59 18:59 Intake Total 991 / 991 755 / 755 515 / 515 Balance 991 / 991 755 / 755 515 / 515 Weight 78.7 kg Intake: IV 991 / 991 515 / 515 515 / 515 NS Inj 1,000 ML @ 60 mls/hr IV. 476 / 476 CONT .[id number] ALMA DELIA Rx#:[id number] Vancomycin Inj 1,500 MG In NS 515 / 515 515 / 515 515 / 515 Inj 500 ML @ 250 mls/hr IV.SIG Q12H ALMA DELIA Rx#:[id number] Oral 240 / 240 Other: # Voids 1 Date of Last Bowel Movement 06/29/18 06/29/18 06/29/18 Results Labs on day of discharge: Labs from last 24 hours 07/01/18 07/01/18 08:45 05:50 WBC 12.0 H RBC 2.65 L Hgb 7.4 L Hct 22.0 L MCV 83.1 MCH 28.0 MCHC 33.7 RDW 22.2 H Plt Count 419 MPV 7.8 Neut % (Auto) 53.1 Lymph % (Auto) 24.4 Beadle % (Auto) 14.4 H Eos % (Auto) 6.1 H Baso % (Auto) 2.0 Neut # (Auto) 6.4 Lymph # (Auto) 2.9 [place] # (Auto) 1.7 H Eos # (Auto) 0.7 H Baso # (Auto) 0.2 WBC Differential . Differential Comment Auto diff final Sodium 140 Potassium 3.5 Chloride 105 Carbon Dioxide 26.3 Anion Gap 9 BUN 4 L Creatinine 0.60 Estimated GFR Greater than 89 Random Glucose 89 Calcium 8.1 L Vancomycin Trough 16.6 H - Impressions ITS Impressions Chest X-Ray 06/21/18 08:26 CONCLUSION: 1. No acute abnormality or significant interval change. Discharge Plan - Discharge Disposition Patient Disposition: Discharge Home - Discharge Condition Condition: Stable - Discharge Order Discharge Orders: Discharge Order (Routine); Ordered 07/01/18 Ordered By: Zenaida Shook - Physicians Team Primary Care Provider: Primary Care Candy Leong Attending Provider: Jesus Ramesh
== END 2018-07-01 16:42 | disposition home or self-care (01) ==
LOC: NEPC 08:02 → NEDA 11:59 → N07 13:56
PROVIDERS: ADMIT Family Medicine; ATTEND Family Medicine

== ENCOUNTER 2018-07-09 21:56 | Inpatient (IN) ==
[2018-07-09] MEDS ORDERED: HYDROmorphone PF Inj 0.5 MG/0.5 ML Syringe IV.PUSH STA (22:18)
[2018-07-09] MEDS ORDERED: HYDROmorphone PF Inj 2 MG/ML Vial IV.PUSH ONE ×2 (22:22→23:36)
--- NOTE | 2018-07-09 22:26 | ED ---
HPI General Chief complaint: Sickle Cell Stated complaint: Sickle Cell Complaint Time Seen by Provider: 07/09/18 22:17 History of Present Illness HPI narrative: This is a 27-year-old female with history of sickle cell disease and asthma who presents for evaluation of pain. She reports that for the past 3 days she has had pain in her lower back and in her legs consistent with her typical sickle cell pain. She describes it as an aching pain which is constant , aggravated by movement, unrelieved with her prescribed hydrocodone 10-325 tablets. She reports that her menstrual period started 3 days ago and she typically has sickle cell exacerbations during her period. She denies chest pain, shortness of breath, cough, congestion, sore throat, fevers, chills, nausea, vomiting. She reports some menstrual cramping but denies any unusual abdominal pain. She denies any dysuria or flank pain. Symptoms are moderate. The patient has been seen here numerous times in the past under similar to this , most recently 2 days ago. 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 She has no other complaints at this time. Related Data Home Medications Medication Instructions Recorded Confirmed folic acid 0.8 mg PO DAILY 03/21/18 07/10/18 zolpidem [Ambien] 5 mg PO HS 03/21/18 07/10/18 hydrocodone-acetaminophen 1 tab PO Q6H 06/21/18 07/10/18 Allergies Allergy/AdvReac Type Severity Reaction Status Date / Time oxycodone Allergy Intermediate itching Verified 07/07/18 08:29 Review of Systems ROS: all other systems reviewed are negative PMFSH Social History Social History Substance History: No History of Abuse Second Hand Smoke Exposure: No Smoking Status: Never smoker How Often Do You Have a Drink Containing Alcohol: Monthly or less Recent Travel in [facility] within the Last 8 Weeks: No Recent Out of Country Travel within the Last 8 Weeks: No Exam Narrative Exam Narrative: GENERAL: Pleasant well-developed well-nourished female no acute distress SKIN: Warm and dry. HEAD: Atraumatic. Normocephalic. EYES: Pupils equal and round. No scleral icterus. No injection or drainage. ENT: No nasal bleeding or discharge. Mucous membranes pink and moist. NECK: Trachea midline. No JVD. CARDIOVASCULAR: Regular rate and rhythm. No murmur appreciated. RESPIRATORY: No accessory muscle use. Clear to auscultation. Breath sounds equal bilaterally. GASTROINTESTINAL: Abdomen soft, non-tender, nondistended. Hepatic and splenic margins not palpable. MUSCULOSKELETAL: No obvious deformities. No clubbing. No cyanosis. No edema. There is no joint swelling. There is no CVA tenderness. NEUROLOGICAL: Awake and alert. No obvious cranial nerve deficits. Motor grossly within normal limits. Normal speech. Course Initial Documented Vital Signs Temperature 98.3 F 07/09/18 22:00 Pulse Rate 101 H 07/09/18 22:00 Respiratory Rate 16 07/09/18 22:00 Blood Pressure 148/84 H 07/09/18 22:00 Pulse Oximetry 100 07/09/18 22:00 Last Documented Vital Signs Temperature 98.3 F 07/13/18 20:00 Pulse Rate 93 H 07/13/18 20:00 Respiratory Rate 17 07/13/18 20:00 Blood Pressure 144/77 H 07/13/18 20:00 Pulse Oximetry 94 L 07/13/18 20:00 Medical Decision Making [facility] Narrative Medical decision making narrative: 27-year-old female with history of sickle cell disease presents with pain in her lower back and legs consistent with her typical sickle cell pain, symptoms started 3 days ago concurrent with her menstrual period which is typical for her. Overall she appears well. We will check lab work, urinalysis, urine test. She will be given IV fluid bolus and Dilaudid, Zofran. She will be monitored closely. At the end of my shift this patient was signed out to Dr. Pal pending lab work , reassessment. Medical Screen Exam Complete: Yes Emergency Medical Condition: Yes Differential Diagnosis Differential Diagnosis: Sickle cell crisis, myalgias, arthralgias, critical anemia Lab Data Result diagrams: 07/13/18 04:11 07/12/18 07:05 POC Results POC Urine Results Negative Lab Results 07/09/18 07/09/18 07/09/18 Range/Units 22:48 22:50 22:50 WBC 14.6 H (4.0-11.0) th/mm3 RBC 2.55 L (4.00-5.30) mil/mm3 Hgb 7.6 L (11.6-15.3) gm/dL Hct 20.7 L* (35.0-46.0) % MCV 81.5 (80.0-100.0) fL MCH 30.0 (27.0-34.0) pg MCHC 36.8 H (32.0-36.0) % RDW 22.4 H (11.6-17.2) % Plt Count 441 (150-450) th/mm3 MPV 8.0 (7.0-11.0) fL Prelim Diff (Auto) Slide review pending Neut % (Auto) 45.2 (16.0-70.0) % Lymph % (Auto) 33.5 (9.0-44.0) % [place] % (Auto) 13.1 H (0.0-8.0) % Eos % (Auto) 4.1 H (0.0-4.0) % Baso % (Auto) 4.1 H (0.0-2.0) % Neut # (Auto) 6.6 (1.8-7.7) th/mm3 Lymph # (Auto) 4.9 H (1.0-4.8) th/mm3 [place] # (Auto) 1.9 H (0.0-0.9) th/mm3 Eos # (Auto) 0.6 H (0.0-0.4) th/mm3 Baso # (Auto) 0.6 H (0.0-0.2) th/mm3 WBC Differential . Diff Scan Auto diff confirmed Differential Comment . Platelet Estimate Normal (Normal) Platelet Morphology Normal (Normal) Pappenheimer Bodies Present H (None) Sickle Cells 1+ H (None) Ovalocytes 1+ H (None) [place] Bodies Present H (None) Keratocytes Occ H (None) Retic Count 5.8 H (0.4-3.0) % Absolute Retic 148.5 (20.0-150.0) mil/L Sodium 141 (136-145) meq/L Potassium 3.0 L (3.5-5.1) meq/L Chloride 108 H (98-107) meq/L Carbon Dioxide 24.2 (21.0-32.0) meq/L Anion Gap 9 (5-15) meq/L BUN 7 (7-18) mg/dL Creatinine 0.71 (0.50-1.00) mg/dL Estimated GFR Greater than 89 (>89) mL/min Random Glucose 102 (74-106) mg/dL Calcium 8.3 L (8.5-10.1) mg/dL Phosphorus (2.5-4.9) mg/dL Magnesium (1.5-2.5) mg/dL Total Bilirubin 1.8 H (0.2-1.0) mg/dL AST 38 H (15-37) U/L ALT 19 (10-53) U/L Alkaline Phosphatase 82 (45-117) U/L Total Protein 8.0 (6.4-8.2) g/dL Albumin 4.0 (3.4-5.0) g/dL Urine Color Yellow (Yellw/Straw) Urine Clarity Hazy H (Clear) Urine pH 5.0 (5.0-8.5) Ur Specific [place] 1.023 (1.002-1.035) Urine Protein 30 H (Neg-Trace) mg/dL Urine Glucose (UA) Negative (Negative) mg/dL Urine Ketones Negative (Negative) mg/dL Urine Occult Blood Small H (Negative) Urine Nitrate Negative (Negative) Urine Bilirubin Negative (Negative) Urine Urobilinogen 2.0 H (Less than 2) mg/dL Ur Leukocyte Esterase Negative (Negative) Urine RBC 1 (0-3) /hpf Urine WBC 2 (0-5) /hpf Ur Squamous Epith Cells 11 (0-5) /hpf Urine Bacteria Rare H (None) /hpf Urine Mucus Few H (Occasional) /lpf Micro UA Comment Culture not ind Ur Microscopic Review Not Reportable Urine Culture Comments Culture not ind Blood Type Antibody Screen MTS Gel Crossmatch Bld Prod Order Comment 07/11/18 07/11/18 07/11/18 Range/Units 04:45 04:45 13:05 WBC 19.3 H (4.0-11.0) th/mm3 RBC 2.17 L (4.00-5.30) mil/mm3 Hgb 5.9 L* (11.6-15.3) gm/dL Hct 17.1 L* (35.0-46.0) % MCV 78.9 L (80.0-100.0) fL MCH 27.4 (27.0-34.0) pg MCHC 34.7 (32.0-36.0) % RDW 22.7 H (11.6-17.2) % Plt Count 398 (150-450) th/mm3 MPV 7.9 (7.0-11.0) fL Prelim Diff (Auto) Order Takers Supervisor Neut % (Auto) 71.5 H (16.0-70.0) % Lymph % (Auto) 16.6 (9.0-44.0) % [place] % (Auto) 10.1 H (0.0-8.0) % Eos % (Auto) 0.4 (0.0-4.0) % Baso % (Auto) 1.4 (0.0-2.0) % Neut # (Auto) 13.8 H (1.8-7.7) th/mm3 Lymph # (Auto) 3.2 (1.0-4.8) th/mm3 [place] # (Auto) 2.0 H (0.0-0.9) th/mm3 Eos # (Auto) 0.1 (0.0-0.4) th/mm3 Baso # (Auto) 0.3 H (0.0-0.2) th/mm3 WBC Differential . Diff Scan Differential Comment Auto diff final Platelet Estimate (Normal) Platelet Morphology (Normal) Pappenheimer Bodies (None) Sickle Cells (None) Ovalocytes (None) [place] Bodies (None) Keratocytes (None) Retic Count (0.4-3.0) % Absolute Retic (20.0-150.0) mil/L Sodium 144 (136-145) meq/L Potassium 4.3 D (3.5-5.1) meq/L Chloride 113 H (98-107) meq/L Carbon Dioxide 23.2 (21.0-32.0) meq/L Anion Gap 8 (5-15) meq/L BUN 7 (7-18) mg/dL Creatinine 0.70 (0.50-1.00) mg/dL Estimated GFR Greater than 89 (>89) mL/min Random Glucose 115 H (74-106) mg/dL Calcium 8.0 L (8.5-10.1) mg/dL Phosphorus 3.5 (2.5-4.9) mg/dL Magnesium 1.8 (1.5-2.5) mg/dL Total Bilirubin 2.5 H (0.2-1.0) mg/dL AST 47 H (15-37) U/L ALT 15 (10-53) U/L Alkaline Phosphatase 70 (45-117) U/L Total Protein 7.4 D (6.4-8.2) g/dL Albumin 3.6 (3.4-5.0) g/dL Urine Color (Yellw/Straw) Urine Clarity (Clear) Urine pH (5.0-8.5) Ur Specific [place] (1.002-1.035) Urine Protein (Neg-Trace) mg/dL Urine Glucose (UA) (Negative) mg/dL Urine Ketones (Negative) mg/dL Urine Occult Blood (Negative) Urine Nitrate (Negative) Urine Bilirubin (Negative) Urine Urobilinogen (Less than 2) mg/dL Ur Leukocyte Esterase (Negative) Urine RBC (0-3) /hpf Urine WBC (0-5) /hpf Ur Squamous Epith Cells (0-5) /hpf Urine Bacteria (None) /hpf Urine Mucus (Occasional) /lpf Micro UA Comment Ur Microscopic Review Urine Culture Comments Blood Type AB Positive Antibody Screen Negative MTS Gel Crossmatch See Detail Bld Prod Order Comment 07/12/18 07/12/18 07/13/18 Range/Units 07:05 07:05 04:11 WBC 23.7 H 23.1 H (4.0-11.0) th/mm3 RBC 2.11 L 2.55 L (4.00-5.30) mil/mm3 Hgb 5.7 L* 7.0 L (11.6-15.3) gm/dL Hct 16.4 L* 21.0 L (35.0-46.0) % MCV 77.5 L 82.3 D (80.0-100.0) fL MCH 26.8 L 27.4 (27.0-34.0) pg MCHC 34.6 33.3 (32.0-36.0) % RDW 22.7 H 23.0 H (11.6-17.2) % Plt Count 457 H 493 H (150-450) th/mm3 MPV 7.7 7.6 (7.0-11.0) fL Prelim Diff (Auto) Neut % (Auto) (16.0-70.0) % Lymph % (Auto) (9.0-44.0) % [place] % (Auto) (0.0-8.0) % Eos % (Auto) (0.0-4.0) % Baso % (Auto) (0.0-2.0) % Neut # (Auto) (1.8-7.7) th/mm3 Lymph # (Auto) (1.0-4.8) th/mm3 [place] # (Auto) (0.0-0.9) th/mm3 Eos # (Auto) (0.0-0.4) th/mm3 Baso # (Auto) (0.0-0.2) th/mm3 WBC Differential Diff Scan Differential Comment Platelet Estimate (Normal) Platelet Morphology (Normal) Pappenheimer Bodies (None) Sickle Cells (None) Ovalocytes (None) [place] Bodies (None) Keratocytes (None) Retic Count (0.4-3.0) % Absolute Retic (20.0-150.0) mil/L Sodium 145 (136-145) meq/L Potassium 3.7 (3.5-5.1) meq/L Chloride 113 H (98-107) meq/L Carbon Dioxide 23.9 (21.0-32.0) meq/L Anion Gap 8 (5-15) meq/L BUN 5 L (7-18) mg/dL Creatinine 0.60 (0.50-1.00) mg/dL Estimated GFR Greater than 89 (>89) mL/min Random Glucose 109 H (74-106) mg/dL Calcium 8.1 L (8.5-10.1) mg/dL Phosphorus (2.5-4.9) mg/dL Magnesium (1.5-2.5) mg/dL Total Bilirubin (0.2-1.0) mg/dL AST (15-37) U/L ALT (10-53) U/L Alkaline Phosphatase (45-117) U/L Total Protein (6.4-8.2) g/dL Albumin (3.4-5.0) g/dL Urine Color (Yellw/Straw) Urine Clarity (Clear) Urine pH (5.0-8.5) Ur Specific [place] (1.002-1.035) Urine Protein (Neg-Trace) mg/dL Urine Glucose (UA) (Negative) mg/dL Urine Ketones (Negative) mg/dL Urine Occult Blood (Negative) Urine Nitrate (Negative) Urine Bilirubin (Negative) Urine Urobilinogen (Less than 2) mg/dL Ur Leukocyte Esterase (Negative) Urine RBC (0-3) /hpf Urine WBC (0-5) /hpf Ur Squamous Epith Cells (0-5) /hpf Urine Bacteria (None) /hpf Urine Mucus (Occasional) /lpf Micro UA Comment Ur Microscopic Review Urine Culture Comments Blood Type Antibody Screen MTS Gel Crossmatch Bld Prod Order Comment Discharge Plan Discharge Disposition Patient Disposition: 30 Still Patient Discharge Condition Condition: Stable Physicians Team ED Provider: Kalin Pal ED Midlevel Provider: Jeison Xavier Primary Care Provider: ROX, Attending Provider: Stone Hahn Other Providers: [facility],Insurance ; José Manuel Nova Discharge Interventions Interventions: ED Discharge Assessment Last Done: 07/10/18 04:36 Vital Signs Last Done: 07/10/18 01:51 Status ED Status: Left Department Discharge Information Discharge Date/Time: 07/10/18 04:39
[2018-07-09] MEDS ORDERED: Sod Chloride 0.9% Inj 1,000 ML IV.SIG SCH (22:30)
[2018-07-09 23:06] LABS: Baso # (Auto) 0.6 th/mm3 (0.0-0.2); Baso % (Auto) 4.1 % (0.0-2.0); Eos # (Auto) 0.6 th/mm3 (0.0-0.4); Eos % (Auto) 4.1 % (0.0-4.0); Hemoglobin 7.6 gm/dL (11.6-15.3); Lymph # (Auto) 4.9 th/mm3 (1.0-4.8); Lymph % (Auto) 33.5 % (9.0-44.0); Mean Corpuscular Volume 81.5 fL (80.0-100.0); Mono # (Auto) 1.9 th/mm3 (0.0-0.9); Mono % (Auto) 13.1 % (0.0-8.0); Neut # (Auto) 6.6 th/mm3 (1.8-7.7); Neut % (Auto) 45.2 % (16.0-70.0); Platelet Count 441 th/mm3 (150-450); Red Blood Count 2.55 mil/mm3 (4.00-5.30); Red Cell Distribution Width 22.4 % (11.6-17.2); Reticulocyte Percent 5.8 % (0.4-3.0); White Blood Count 14.6 th/mm3 (4.0-11.0)
[2018-07-09 23:07] LABS: Mean Corpuscular HGB Conc 36.8 % (32.0-36.0)
[2018-07-09 23:08] LABS: Bacteria,Urine Rare /hpf; Bilirubin,Urine Negative (Negative); Clarity,Urine Hazy (Clear); Color,Urine Yellow (Yellw/Straw); Glucose,Urine (UA) Negative (Negative); Leukocyte Esterase,Urine Negative (Negative); Mucus,Urine Few /lpf (Occasional); Nitrite,Urine Negative (Negative); Specific Gravity,Urine 1.023 (1.002-1.035); Squamous Epithelial Cell,Urine 11 /hpf (0-5)
[2018-07-09 23:11] LABS: Hematocrit 20.7 % (35.0-46.0)
[2018-07-09 23:14] LABS: Alanine Aminotransferase 19 U/L (10-53); Anion Gap 9 meq/L (5-15); Aspartate Aminotransferase 38 U/L (15-37); Blood Urea Nitrogen 7 mg/dL (7-18); Calcium 8.3 mg/dL (8.5-10.1); Carbon Dioxide 24.2 meq/L (21.0-32.0); Chloride 108 meq/L (98-107); Glomerular Filtration Rate Greater Than 89 mL/min (>89); Glucose,Random 102 mg/dL (74-106); Sodium 141 meq/L (136-145)
[2018-07-09 23:17] LABS: Alkaline Phosphatase 82 U/L (45-117)
[2018-07-09 23:52] LABS: Howell-Jolly Bodies Present; Pappenheimer Bodies Present
[2018-07-09 23:53] LABS: Ovalocytes 1+; Sickle Cells 1+
[2018-07-09 23:54] LABS: Platelet Estimate Normal (Normal); Platelet Morphology Normal (Normal)
[2018-07-10] MEDS ORDERED: HYDROmorphone PF Inj 2 MG/ML Vial IV.PUSH ONE ×2 (01:45→02:46)
[2018-07-10] MEDS ORDERED: HYDROmorphone PF Inj 2 MG/ML Vial IV.PUSH PRN (02:52)
[2018-07-10] MEDS ORDERED: Acetaminophen 325 MG Tablet PO PRN (02:53)
[2018-07-10] MEDS ORDERED: Bisacodyl 10 MG Supp RECTAL PRN (02:53)
[2018-07-10] MEDS: Sod Chloride 0.9% Inj 1,000 ML IV.CONT SCH ×4 (03:17→23:24)
--- NOTE | 2018-07-10 04:02 | P.HPIM ---
History of Present Illness Primary Care Physician: UNKNOWN History of Present Illness: This is a 27-year-old female with a PMH of Sickle Cell Disease and Asthma who presented to the ER w/ c/o generalized pain typical of sickle crisis. Pt is very well known to the ER for multiple presentations monthly w/ similar complaints. Reports severe pain, 10/10, non-radiating, generalized. Denies fever or chills. Has been taking home Percocet w/ no improvement in pain complaints. Follows w/ Dr. Gamino as outpatient, has upcoming appt in a few days. On arrival, BP 148/84, HR 101, O2 sat 100% on RA, Afebrile. WBC 14.6. Hemoglobin 7.6. Reticulocyte Count 5.8. K+ 3.0. UA negative for UTI. S/p Dilaudid x5 doses in ER w/ mild improvement. - Diagnosis (1) Sickle cell crisis (2) Anemia (3) Hypokalemia Inpatient Certification: I certify that the inpatient services were ordered in accordance with Medicare regulations governing the order. This includes certification that hospital inpatient services are reasonable and necessary and in the case of services not specified as inpatient-only under 42 CFR 419.22(n), that they are appropriately provided as inpatient services in accordance to with the 2-midnight benchmark under 43 CFR 412.3(e) Estimated Total Length of Stay (Days): 2 Plans for Post Hospital Care: Not yet determined Review of Systems PAST FAMILY HISTORY: Reviewed. No h/o DM or CAD All other systems reviewed negative except as stated in HPI PMFSH - History History Provided By: Patient - Medical History Medical History: Medical History (Last Reviewed 07/10/18 @ 03:57 by Mary Srivastava RN) Heart hypertrophy (Acute) Sickle cell anemia with pain (Acute) Asthma (Acute) - Surgical History Surgical History: Surgical History (Last Reviewed 07/10/18 @ 03:57 by Mary Srivastava, RN) History of cholecystectomy (Acute) - Family History Family History: Family History (Last Reviewed 07/10/18 @ 03:57 by Mary Srivastava, RN) Other No pertinent family history - Tobacco History Second Hand Smoke Exposure: No Smoking Status: Never smoker - Alcohol History How Often Do You Have a Drink Containing Alcohol: Monthly or less - Substance Use History Substance History: No History of Abuse - Travel History Recent Travel in the [place] Within the Last 8 Weeks: No Recent Travel Out of the Country Within the Last 8 Weeks: No - Immunization History Tetanus Immunization: Unsure Medications and Allergies Active Medications: Active Medications Acetaminophen (Tylenol) 650 mg PO Q4H PRN PRN Reason: Temp > 100.4 Al Hydroxide/Mg Hydroxide (Milk Of Magnesia Liq) 30 ml PO Q12H PRN PRN Reason: Mild Constipation Bisacodyl (Dulcolax Supp) 10 mg RECTAL DAILY PRN PRN Reason: SEVERE CONSITIPATION Diphenhydramine HCl (Benadryl Inj) 25 mg IV.PUSH Q4H PRN PRN Reason: ITCHING Folic Acid (Folic Acid) 1 mg PO DAILY [facility] Hydromorphone HCl (Dilaudid Pf Inj) 2 mg IV.PUSH Q2H PRN PRN Reason: PAIN 6-10 Hydromorphone HCl (Dilaudid Pf Inj) 1 mg IV.PUSH Q2H PRN PRN Reason: PAIN 3-5 Sodium Chloride (Ns Inj) 1,000 mls @ 150 mls/hr IV.CONT .Q6H40M [facility] Last Admin: 07/10/18 03:17 Dose: 150 mls/hr Lactulose (Lactulose Liq) 30 ml PO DAILY PRN PRN Reason: SEVERE CONSITIPATION Ondansetron HCl (Zofran Inj) 4 mg IV.PUSH Q6H PRN PRN Reason: NAUSEA OR VOMITING Senna/Docusate Sodium (Malissa-Colace) 1 tab PO BID [facility] Sennosides (Senokot) 17.2 mg PO Q12H PRN PRN Reason: Moderate Constipation Sodium Chloride (Ns Flush) 2 ml IV.FLUSH PRN PRN PRN Reason: FLUSH AFTER USING IV ACCESS Allergies Allergy/AdvReac Type Severity Reaction Status Date / Time oxycodone Allergy Intermediate itching Verified 07/07/18 08:29 Home Medications Medication Instructions Recorded Confirmed Type folic acid 0.8 mg PO DAILY 03/21/18 07/10/18 History zolpidem [Ambien] 5 mg PO HS 03/21/18 07/10/18 History hydrocodone-acetaminophen 1 tab PO Q6H 06/21/18 07/10/18 History Exam Vital signs: Vital Signs 07/09/18 22:00 07/09/18 23:02 07/10/18 01:51 Temperature 98.3 F 97.9 F Pulse Rate 101 H 81 85 Respiratory Rate 16 16 16 Blood Pressure 148/84 H 114/64 115/56 L Pulse Oximetry 100 97 97 07/10/18 02:52 Temperature 98.1 F Pulse Rate 87 Respiratory Rate 18 Blood Pressure 116/59 L Pulse Oximetry 96 Intake & Output 07/09/18 07/09/18 07/10/18 06:59 18:59 06:59 Intake Total 1000 / 1000 Balance 1000 / 1000 Weight 78 kg Intake: IV 1000 / 1000 NS Inj 1,000 ML @ 1000 mls/hr 1000 / 1000 IV.SIG .Q1H [facility] Rx#:[id number] Narrative: PE: GENERAL: Young black female in no acute distress. SKIN: Focused skin assessment warm and dry. HEENT: PERRLA, EOMI. No scleral icterus or conjunctival pallor. No lid lag or facial droop. CARDIOVASCULAR: Regular rate and rhythm. No obvious murmurs to auscultation. No chest tenderness to palpation. RESPIRATORY: No obvious rhonchi or wheezing. Clear to auscultation. Breath sounds equal bilaterally. GASTROINTESTINAL: Abdomen soft, non-tender, nondistended. BS normal. MUSCULOSKELETAL: Extremities without clubbing, cyanosis, or edema. No obvious deformities. NEUROLOGICAL: Awake, alert and oriented x4. No focal neurologic deficits. Moving both upper and lower extremities spontaneously. PSYCHIATRIC: Appropriate mood and affect. Insight and judgment normal. Results - Labs CBC & Chem 7: 07/09/18 22:50 07/09/18 22:50 Labs: Short CBC 07/09/18 Range/Units 22:50 WBC 14.6 H (4.0-11.0) th/mm3 Hgb 7.6 L (11.6-15.3) gm/dL Hct 20.7 L* (35.0-46.0) % Plt Count 441 (150-450) th/mm3 BMP 07/09/18 22:50 Sodium 141 Potassium 3.0 L Chloride 108 H Carbon Dioxide 24.2 BUN 7 Creatinine 0.71 Calcium 8.3 L Liver Function 07/09/18 Range/Units 22:50 Total Bilirubin 1.8 H (0.2-1.0) mg/dL AST 38 H (15-37) U/L ALT 19 (10-53) U/L Alkaline Phosphatase 82 (45-117) U/L Albumin 4.0 (3.4-5.0) g/dL Urine 07/09/18 Range/Units 22:48 Urine Color Yellow (Yellw/Straw) Urine Clarity Hazy H (Clear) Urine pH 5.0 (5.0-8.5) Ur Specific Reader 1.023 (1.002-1.035) Urine Protein 30 H (Neg-Trace) mg/dL Urine Glucose (UA) Negative (Negative) mg/dL Caprini VTE Risk Assessment Caprini VTE Risk Assessment: No/Low Risk (score <= 1) Caprini Risk Assessment Model: Point Value = 1 Point Value = 2 Point Value = 3 Point Value = 5 Age 41-60 Minor surgery BMI > 25 kg/m2 Swollen legs Varicose veins or History of unexplained or recurrent spontaneous Oral contraceptives or hormone replacement Sepsis (< 1 month) Serious lung disease, including pneumonia (< 1 month) Abnormal pulmonary function Acute myocardial infarction Congestive heart failure (< 1 month) History of inflammatory bowel disease Medical patient at bed rest Age 61-74 Arthroscopic surgery Major open surgery (> 45 min) Laparoscopic surgery (> 45 min) Malignancy Confined to bed (> 72 hours) Immobilizing plaster cast Central venous access Age >= 75 History of VTE Family history of VTE Factor V Leiden Prothrombin [id number] Lupus anticoagulant Anticardiolipin antibodies Elevated serum homocysteine Heparin-induced thrombocytopenia Other congenital or acquired thrombophilia Stroke (< 1 month) Elective arthroplasty Hip, pelvis, or leg fracture Acute spinal cord injury (< 1 month) Prophylaxis Regimen: Total Risk Factor Score Risk Level Prophylaxis Regimen 0-1 Low Early ambulation 2 Moderate Order ONE of the following: *Sequential Compression Device (SCD) *Heparin 5000 units SQ BID 3-4 Higher Order ONE of the following medications: *Heparin 5000 units SQ TID *Enoxaparin/Lovenox 40 mg SQ daily (WT < 150 kg, CrCl > 30 mL/min) *Enoxaparin/Lovenox 30 mg SQ daily (WT < 150 kg, CrCl > 10-29 mL/min) *Enoxaparin/Lovenox 30 mg SQ BID (WT < 150 kg, CrCl > 30 mL/min) AND/OR *Sequential Compression Device (SCD) 5 or more Highest Order ONE of the following medications: *Heparin 5000 units SQ TID (Preferred with Epidurals) *Enoxaparin/Lovenox 40 mg SQ daily (WT < 150 kg, CrCl > 30 mL/min) *Enoxaparin/Lovenox 30 mg SQ daily (WT < 150 kg, CrCl > 10-29 mL/min) *Enoxaparin/Lovenox 30 mg SQ BID (WT < 150 kg, CrCl > 30 mL/min) AND *Sequential Compression Device (SCD) Assessment and Plan - Assessment (1) Sickle cell crisis Code(s): D57.00 - Hb-SS disease with crisis, unspecified Status: Resolved (2) Anemia Code(s): D64.9 - Anemia, unspecified Status: Acute (3) Hypokalemia Code(s): E87.6 - Hypokalemia Status: Acute - Plan A/P: 1. Sickle Cell: w/ Acute Crisis, multiple ER presentations for same, symptoms usually resolve after few doses of Dilaudid IV, however currently s/p 5 doses w / minimal improvement. Retic count elevated. IVF for hydration, Dilaudid IV prn, Folic Acid. Follows w/ Dr. Gamino as outpatient, follow up as scheduled 2. Anemia: Chronic. Hgb stable at 7.6, will repeat labs in am, consider transfusion if <7 or hemodynamically unstable. 3. Hypokalemia: K+ 3.0, s/p replacement, will repeat labs, additional replacement as needed. 4. DVT Prophylaxis: SCD/Teds 5. Social work for d/c planning as needed. 6. Case discussed w/ ER physician at length, labs/records/imaging reviewed by me.
[2018-07-10] MEDS: HYDROmorphone PF Inj 2 MG/ML Vial IV.PUSH PRN ×9 (04:54→23:16)
[2018-07-10] MEDS: Folic Acid 1 MG Tablet PO SCH ×2 (07:34→09:47)
[2018-07-10] MEDS: Senna/Docusate Sodium 8.6/50 MG Tablet PO SCH ×3 (07:34→20:35)
[2018-07-10] MEDS: Potassium Chlor 20 mEq Premix 20 MEQ/100 ML PIGGYBACK IV.SIG SCH ×2 (09:37→12:03)
[2018-07-11] MEDS: HYDROmorphone PF Inj 2 MG/ML Vial IV.PUSH PRN ×10 (01:36→23:37)
[2018-07-11 06:17] LABS: Baso # (Auto) 0.3 th/mm3 (0.0-0.2); Baso % (Auto) 1.4 % (0.0-2.0); Eos # (Auto) 0.1 th/mm3 (0.0-0.4); Eos % (Auto) 0.4 % (0.0-4.0); Lymph # (Auto) 3.2 th/mm3 (1.0-4.8); Lymph % (Auto) 16.6 % (9.0-44.0); Mean Corpuscular HGB Conc 34.7 % (32.0-36.0); Mean Corpuscular Hemoglobin 27.4 pg (27.0-34.0); Mean Corpuscular Volume 78.9 fL (80.0-100.0); Mean Platelet Volume 7.9 fL (7.0-11.0); Mono % (Auto) 10.1 % (0.0-8.0); Neut # (Auto) 13.8 th/mm3 (1.8-7.7); Neut % (Auto) 71.5 % (16.0-70.0); Platelet Count 398 th/mm3 (150-450); Red Blood Count 2.17 mil/mm3 (4.00-5.30); Red Cell Distribution Width 22.7 % (11.6-17.2); White Blood Count 19.3 th/mm3 (4.0-11.0)
[2018-07-11] MEDS: Sod Chloride 0.9% Inj 1,000 ML IV.CONT SCH ×3 (06:36→21:02)
[2018-07-11 07:00] LABS: Alanine Aminotransferase 15 U/L (10-53); Albumin 3.6 g/dL (3.4-5.0); Alkaline Phosphatase 70 U/L (45-117); Anion Gap 8 meq/L (5-15); Aspartate Aminotransferase 47 U/L (15-37); Blood Urea Nitrogen 7 mg/dL (7-18); Carbon Dioxide 23.2 meq/L (21.0-32.0); Chloride 113 meq/L (98-107); Glomerular Filtration Rate Greater Than 89 mL/min (>89); Glucose,Random 115 mg/dL (74-106); Magnesium 1.8 mg/dL (1.5-2.5); Phosphorus 3.5 mg/dL (2.5-4.9); Potassium 4.3 meq/L (3.5-5.1); Sodium 144 meq/L (136-145); Total Protein 7.4 g/dL (6.4-8.2)
[2018-07-11 07:19] LABS: Hematocrit 17.1 % (35.0-46.0); Hemoglobin 5.9 gm/dL (11.6-15.3)
[2018-07-11] MEDS ORDERED: Sodium Chlor 0.9% Inj 250 ML IV.SIG SCH (08:00)
[2018-07-11] MEDS: Folic Acid 1 MG Tablet PO SCH (08:08)
[2018-07-11] MEDS: Senna/Docusate Sodium 8.6/50 MG Tablet PO SCH ×2 (08:08→20:23)
--- NOTE | 2018-07-11 09:15 | P.PNIM ---
Subjective Interval history: Patient seen and examined this morning. She is lying in bed sound asleep did not appear to be in any severe pain. Upon awaking the patient she reports that she is nauseated all night long and that she hurts all over. And that she wants to be left alone to go back to sleep. She knows that her blood is low and is requesting a blood transfusion. Informed her that we will wait for recommendations by hematology. Patient was unhappy with this but agrees to wait for hematology. Physical Exam Vital signs: Vital Signs 07/10/18 12:00 07/10/18 16:00 07/10/18 20:00 Temperature 98.1 F 98.1 F 99.7 F H Pulse Rate 99 H 82 105 H Respiratory Rate 20 20 17 Blood Pressure 104/55 L 106/58 L 127/74 Pulse Oximetry 90 L 88 L 07/11/18 00:00 07/11/18 00:28 07/11/18 04:00 Temperature 100.6 F H 97.7 F Pulse Rate 113 H 100 H 103 H Respiratory Rate 18 17 Blood Pressure 116/58 L 111/63 Pulse Oximetry 92 L 94 L 07/11/18 08:00 Temperature 98.6 F Pulse Rate 98 H Respiratory Rate 18 Blood Pressure 119/74 Pulse Oximetry 92 L Intake & Output 07/10/18 07/11/18 07/11/18 18:59 06:59 18:59 Intake Total 2200 / 2200 1820 / 1820 Balance 2200 / 2200 1820 / 1820 Intake: IV 2200 / 2200 1000 / 1000 NS Inj 1,000 ML @ 150 mls/hr IV 1999 / 1999 1000 / 1000 .CONT .Q6H40M [facility] Rx#:[id number] KCl 20 mEq Premix Inj 20 meq In 200 / 200 100 ml @ 50 mls/hr IV.SIG Q2H [facility] Rx#:[id number] Oral 820 / 820 Other: # Voids 3 Date of Last Bowel Movement 07/09/18 07/09/18 Narrative: GEN: Well-developed, well-nourished -[place] female patient. No acute distress. CV: Regular rate and rhythm without obvious murmurs LUNGS: Clear to auscultation bilaterally. Normal respiratory effort. No wheezes , rales, rhonchi. GI: Soft, mild tenderness to palpation, nondistended. No palpable masses. Bowel sounds WNL. EXT: No edema. Reports pain with squeezing of her calves NEURO/PSYCH: Afocal. Awake, alert, and oriented x3. Appropriate insight and judgment. Results - Labs CBC & Chem 7: 07/11/18 04:45 07/11/18 04:45 Laboratory Results - last 24 hr 07/11/18 07/11/18 04:45 04:45 WBC 19.3 H RBC 2.17 L Hgb 5.9 L* Hct 17.1 L* MCV 78.9 L MCH 27.4 MCHC 34.7 RDW 22.7 H Plt Count 398 MPV 7.9 Prelim Diff (Auto) Cage Manager Neut % (Auto) 71.5 H Lymph % (Auto) 16.6 [place] % (Auto) 10.1 H Eos % (Auto) 0.4 Baso % (Auto) 1.4 Neut # (Auto) 13.8 H Lymph # (Auto) 3.2 [place] # (Auto) 2.0 H Eos # (Auto) 0.1 Baso # (Auto) 0.3 H WBC Differential . Differential Comment Auto diff final Sodium 144 Potassium 4.3 D Chloride 113 H Carbon Dioxide 23.2 Anion Gap 8 BUN 7 Creatinine 0.70 Estimated GFR Greater than 89 Random Glucose 115 H Calcium 8.0 L Phosphorus 3.5 Magnesium 1.8 Total Bilirubin 2.5 H AST 47 H ALT 15 Alkaline Phosphatase 70 Total Protein 7.4 D Albumin 3.6 Assessment and Plan - Assessment (1) Sickle cell crisis Code(s): D57.00 - Hb-SS disease with crisis, unspecified Status: Resolved (2) Anemia Code(s): D64.9 - Anemia, unspecified Status: Acute (3) Hypokalemia Code(s): E87.6 - Hypokalemia Status: Acute - Plan This a 27-year-old female currently going through vaso- occlusive crisis Vaso-occlusive crisis -Consulted hematology, recommendations appreciated -Pain control regimen in place -Continue IV fluids Anemia Patient with chronic anemia and usually has a hemoglobin of 7 after an extensive amount of IV fluids patient's hemoglobin hematocrit is low at 5.9/ 17.1 respectively. Patient is requesting blood transfusion. We have blood transfusion ready to go however we will await the recommendations of hematology as this is likely due to dilution frequent blood transfusion is not good for the patient. Patient understands and agrees to await hematology recommendations. 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
--- NOTE | 2018-07-11 22:11 | MB ---
cc: Benny Nova MD DATE: 07/11/2018 REASON FOR CONSULTATION: Consult requested by Dr. Orr for evaluation of sickle cell painful crisis. HISTORY OF PRESENT ILLNESS: Marce is a 27-year-old female. She has a history of sickle cell disease with sickle cell painful crisis. She was recently admitted to the hospital and was discharged to home. However, she has now returned complaining of generalized pain and she claims that this is one of her sickle cell painful crises. On admission 2 days ago, the CBC showed hemoglobin of 7.6. She was given hydration and narcotics. The CBC today showed that the hemoglobin has dropped to 5.9. I have been asked to see the patient to make recommendation for blood transfusion. When I entered the room, the patient appears to be comfortable. She was watching TV. She does not look in any distress. When I asked her where is the pain, she stated, all over. She denies any fevers. The rest of the review of systems is negative. PAST MEDICAL HISTORY: 1. Sickle cell anemia with multiple painful crises. 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 4. History of asthma. PAST SURGICAL HISTORY: Infusaport placement and cholecystectomy. ALLERGIES: CODEINE. FAMILY HISTORY: Significant for sickle cell disease. SOCIAL HISTORY: The patient does not smoke cigarettes. Occasionally drinks alcohol. PHYSICAL EXAMINATION: GENERAL: Reveals a well-developed, female in no apparent distress. VITAL SIGNS: Temperature 98.8, heart rate 118, blood pressure 126/68. HEENT: PERRLA. EOMI, anicteric. No oral lesions noted. NECK: No lymphadenopathy noted. LUNGS: Clear. No wheezing, rhonchi or rales. CARDIOVASCULAR: Regular rate and rhythm. ABDOMEN: Soft, nontender. No hepatosplenomegaly. EXTREMITIES: No pedal edema. NEUROLOGIC: Awake, alert, oriented x 3. SKIN: No significant lesions noted. ASSESSMENT AND PLAN: 1. Sickle cell painful crisis. 2. Anemia, most likely dilutional. PLAN: I have reviewed her available records, and I have discussed with the patient regarding the drop of the hemoglobin. I agree with Dr. Orr that this could be a dilutional anemia. We will repeat the CBC in the morning. Depending on the results, we will decide whether to give her blood transfusion or not. The patient agreed with that plan. She will continue on the present management of sickle cell painful crisis with Dr. Orr. Thank you for asking my opinion. MD JAYSHREE Juarez/dalila , 09:43 PM , 09:51 PM [place]
[2018-07-12] MEDS: HYDROmorphone PF Inj 2 MG/ML Vial IV.PUSH PRN ×10 (01:44→21:34)
[2018-07-12] MEDS: Sod Chloride 0.9% Inj 1,000 ML IV.CONT SCH ×3 (03:37→15:27)
[2018-07-12] MEDS: Senna/Docusate Sodium 8.6/50 MG Tablet PO SCH ×2 (08:36→20:58)
[2018-07-12] MEDS: Folic Acid 1 MG Tablet PO SCH (08:36)
[2018-07-12 08:38] LABS: Mean Corpuscular HGB Conc 34.6 % (32.0-36.0); Mean Corpuscular Hemoglobin 26.8 pg (27.0-34.0); Mean Corpuscular Volume 77.5 fL (80.0-100.0); Mean Platelet Volume 7.7 fL (7.0-11.0); Platelet Count 457 th/mm3 (150-450); Red Blood Count 2.11 mil/mm3 (4.00-5.30); Red Cell Distribution Width 22.7 % (11.6-17.2); White Blood Count 23.7 th/mm3 (4.0-11.0)
[2018-07-12 08:46] LABS: Hematocrit 16.4 % (35.0-46.0); Hemoglobin 5.7 gm/dL (11.6-15.3)
[2018-07-12 09:04] LABS: Anion Gap 8 meq/L (5-15); Blood Urea Nitrogen 5 mg/dL (7-18); Calcium 8.1 mg/dL (8.5-10.1); Carbon Dioxide 23.9 meq/L (21.0-32.0); Chloride 113 meq/L (98-107); Glomerular Filtration Rate Greater Than 89 mL/min (>89); Glucose,Random 109 mg/dL (74-106); Potassium 3.7 meq/L (3.5-5.1); Sodium 145 meq/L (136-145)
--- NOTE | 2018-07-12 09:37 | P.PN ---
Subjective Interval history: Follow up for sickle cell crisis/anemia. The patient is awoken from her sleep, prefers to keep her eyes closed and only shakes her head "yes" and "no" to questions. She reports continued diffuse body aches and pains. She does report some relief with IV dilaudid. Denies any chest pain, but endorses slight short of breath. She states she has a history of asthma. Denies any cough or wheezing. Denies any other medical complaints at this time. She does not feel ready for discharge. Physical Exam Vital signs: Vital Signs 07/11/18 12:00 07/11/18 16:00 07/11/18 19:58 Temperature 98.7 F 99.0 F Pulse Rate 108 H 109 H Respiratory Rate 16 16 18 Blood Pressure 122/64 117/70 Pulse Oximetry 92 L 97 07/11/18 20:00 07/11/18 21:57 07/11/18 23:52 Temperature 98.8 F Pulse Rate 118 H 101 H Respiratory Rate 17 18 Blood Pressure 126/68 Pulse Oximetry 93 L 07/12/18 00:00 07/12/18 00:07 07/12/18 02:14 Temperature 98.8 F Pulse Rate 101 H Respiratory Rate 17 18 18 Blood Pressure 114/61 Pulse Oximetry 96 07/12/18 03:50 07/12/18 04:00 07/12/18 04:15 Temperature 98.5 F Pulse Rate 100 H 110 H Respiratory Rate 16 18 Blood Pressure 126/71 Pulse Oximetry 95 07/12/18 08:00 07/12/18 08:44 Temperature 99.5 F Pulse Rate 113 H Respiratory Rate 18 18 Blood Pressure 138/73 Pulse Oximetry 91 L Intake & Output 07/11/18 07/12/18 07/12/18 18:59 06:59 18:59 Intake Total 1000 / 1000 1959 / 1959 1000 / 1000 Balance 1000 / 1000 1959 / 1959 1000 / 1000 Intake: IV 1000 / 1000 1000 / 1000 1000 / 1000 NS Inj 1,000 ML @ 150 mls/hr IV 1000 / 1000 1000 / 1000 1000 / 1000 .CONT .Q6H40M [facility] Rx#:[id number] Oral 960 / 960 Other: # Voids 4 Date of Last Bowel Movement 07/09/18 07/11/18 07/11/18 Narrative: GENERAL: Well-nourished, well-developed young AA female patient in NAD. Drowsy. SKIN: Warm and dry. No rash. HEENT: Normocephalic. Atraumatic. Pupils equal and round. Mucous membranes pink and moist. CARDIOVASCULAR: Regular rate and rhythm. No murmur appreciated. RESPIRATORY: No accessory muscle use. Decreased inspiratory effort, otherwise clear to auscultation. Breath sounds equal bilaterally. GASTROINTESTINAL: Abdomen soft, non-tender, nondistended. Normoactive bowel sounds x4. MUSCULOSKELETAL: No obvious deformities. Extremities without clubbing, cyanosis , or edema. NEUROLOGICAL: Awake and alert. No obvious cranial nerve deficits. Motor grossly within normal limits. Moving all extremities spontaneously. Normal speech. PSYCHIATRIC: Appropriate mood and affect; insight and judgment normal. Results - Labs CBC & Chem 7: 07/12/18 07:05 07/12/18 07:05 Laboratory Results - last 24 hr 07/11/18 07/12/18 07/12/18 13:05 07:05 07:05 WBC 23.7 H RBC 2.11 L Hgb 5.7 L* Hct 16.4 L* MCV 77.5 L MCH 26.8 L MCHC 34.6 RDW 22.7 H Plt Count 457 H MPV 7.7 Sodium 145 Potassium 3.7 Chloride 113 H Carbon Dioxide 23.9 Anion Gap 8 BUN 5 L Creatinine 0.60 Estimated GFR Greater than 89 Random Glucose 109 H Calcium 8.1 L Blood Type AB Positive Antibody Screen Negative MTS Gel Crossmatch See Detail Bld Prod Order Comment Assessment and Plan - Assessment (1) Sickle cell crisis Code(s): D57.00 - Hb-SS disease with crisis, unspecified Status: Resolved (2) Anemia Code(s): D64.9 - Anemia, unspecified Status: Acute (3) Hypokalemia Code(s): E87.6 - Hypokalemia Status: Acute - Plan 27-year-old female currently going through vaso-occlusive crisis Sickle cell with Vaso-occlusive crisis and anemia -Hgb trended 7.6 --> 5.9 --> 5.7 (suspect drop in Hgb likely dilutional after aggressive IVF hydration) -Pain control regimen in place in IV Dilaudid and po benadryl -Continue IV fluids hydration -Consulted hematology, recommendations appreciated -Will defer decision regarding blood transfusion to hematology Hypokalemia -K 3.0 -give KCl replacement -repeat BMP with K 3.7, resolved Asthma -chronic, does not appear to be in exacerbation -albuterol inhaler prn DVT Prophylaxis: teds/SCDs; avoid chemical prophylaxis with anemia Discharge Planning: Discharge pending further clinical improvement and hematology clearance.
[2018-07-12] MEDS ORDERED: Acetaminophen 325 MG Tablet PO PRN (09:40)
[2018-07-12] MEDS ORDERED: Sodium Chlor 0.9% Inj 250 ML IV.SIG SCH (10:00)
--- NOTE | 2018-07-12 17:00 | P.PNONC ---
Subjective Interval history: Patient lying in bed with eyes closed, awakens easily to voice. She reports "pain all over" and nausea. Objective Vital Signs/Intake & Output: Vital Signs 07/11/18 19:58 07/11/18 20:00 07/11/18 21:57 Temperature 98.8 F Pulse Rate 118 H Respiratory Rate 18 17 18 Blood Pressure 126/68 Pulse Oximetry 93 L 07/11/18 23:52 07/12/18 00:00 07/12/18 00:07 Temperature 98.8 F Pulse Rate 101 H 101 H Respiratory Rate 17 18 Blood Pressure 114/61 Pulse Oximetry 96 07/12/18 02:14 07/12/18 03:50 07/12/18 04:00 Temperature 98.5 F Pulse Rate 100 H 110 H Respiratory Rate 18 16 Blood Pressure 126/71 Pulse Oximetry 95 07/12/18 04:15 07/12/18 08:00 07/12/18 08:44 Temperature 99.5 F Pulse Rate 113 H Respiratory Rate 18 18 18 Blood Pressure 138/73 Pulse Oximetry 91 L 07/12/18 09:30 07/12/18 10:54 07/12/18 11:11 Temperature 98.8 F Pulse Rate 106 H 118 H Respiratory Rate 18 18 18 Blood Pressure 120/70 132/71 Pulse Oximetry 95 93 L 07/12/18 11:20 07/12/18 12:00 07/12/18 15:27 Temperature 99.9 F H Pulse Rate 104 H Respiratory Rate 16 18 16 Blood Pressure 128/73 Pulse Oximetry 100 07/12/18 16:00 Temperature 99 F Pulse Rate 106 H Respiratory Rate 18 Blood Pressure 125/67 Pulse Oximetry 98 Intake & Output 07/11/18 07/12/18 07/12/18 18:59 06:59 18:59 Intake Total 1000 / 1000 1959 / 1959 2400 / 2400 Balance 999 / 999 1959 / 1959 2400 / 2400 Intake: IV 1000 / 1000 1000 / 1000 1999 / 1999 NS Inj 1,000 ML @ 150 mls/hr IV 1000 / 1000 1000 / 1000 1999 .CONT .Q6H40M [facility] Rx#:[id number] Oral 960 / 960 Intake (Blood Product) Amt 400 / 400 Rbc As-3 Leukoreduced Unit 400 / 400 [id number] Other: # Voids 4 Date of Last Bowel Movement 07/09/18 07/11/18 07/11/18 Result Diagrams: 07/12/18 07:05 07/12/18 07:05 Laboratory Results: Laboratory Results - last 24 hr 07/11/18 07/12/18 07/12/18 13:05 07:05 07:05 WBC 23.7 H RBC 2.11 L Hgb 5.7 L* Hct 16.4 L* MCV 77.5 L MCH 26.8 L MCHC 34.6 RDW 22.7 H Plt Count 457 H MPV 7.7 Sodium 145 Potassium 3.7 Chloride 113 H Carbon Dioxide 23.9 Anion Gap 8 BUN 5 L Creatinine 0.60 Estimated GFR Greater than 89 Random Glucose 109 H Calcium 8.1 L Blood Type AB Positive Antibody Screen Negative MTS Gel Crossmatch See Detail Bld Prod Order Comment Medications: Active Medications Generic Name Dose Route Start Last Admin Trade Name Freq PRN Reason Stop Dose Admin Acetaminophen 650 mg 07/12/18 09:40 07/12/18 10:43 Tylenol PO 650 mg Q4H PRN Administration SEE LABEL COMMENTS Diphenhydramine HCl 25 mg 07/10/18 04:49 07/12/18 08:41 Benadryl PO 25 mg Q4H PRN Administration tching Folic Acid 1 mg 07/10/18 09:00 07/12/18 08:36 Folic Acid PO 1 mg DAILY [facility] Administration Hydromorphone HCl 2 mg 07/10/18 02:52 07/12/18 14:57 Dilaudid Pf Inj IV.PUSH 2 mg Q2H PRN Administration PAIN 6-10 Sodium Chloride 1,000 mls @ 150 mls/hr 07/10/18 03:00 07/12/18 15:27 Ns Inj IV.CONT 150 mls/hr .Q6H40M [facility] Administration Sodium Chloride 250 mls @ 15 mls/hr 07/12/18 10:00 07/12/18 10:42 Ns Inj IV.SIG 07/13/18 02:39 15 mls/hr ONCE [facility] Administration Ondansetron HCl 4 mg 07/10/18 02:53 07/12/18 08:39 Zofran Inj IV.PUSH 4 mg Q6H PRN Administration NAUSEA OR VOMITING Senna/Docusate Sodium 1 tab 07/10/18 09:00 07/12/18 08:36 Malissa-Colace PO 1 tab BID [facility] Administration Objective Remarks: GENERAL: Well-nourished, well-developed young female patient, in no acute distress. SKIN: Warm and dry. HEAD: Normocephalic. EYES: No scleral icterus. No injection or drainage. NECK: Supple, trachea midline. CARDIOVASCULAR: Regular rate and rhythm without murmurs. RESPIRATORY: Breath sounds equal bilaterally. Nonlabored at rest. O2 saturation 100% on room air. GASTROINTESTINAL: Abdomen soft, non-tender, nondistended. EXTREMITIES: No cyanosis, or edema. MUSCULOSKELETAL: Adequate muscle tone. NEUROLOGICAL: No obvious focal deficit. Sleeping, awakens easily to voice. PSYCHIATRIC: Flat affect; insight and judgment normal. Assessment/Plan - Plan Ms. Frazier is a 27-year-old female with sickle cell disease. Currently hospitalized for sickle cell crisis. Recommendations: 1. Sickle cell pain crisis, continue IV hydration and pain medications. 2. Hemoglobin 5.7, transfuse 1 unit PRBCs. 3. Monitor for oversedation. - Attending Statement The exam, history, and the medical decision-making described in the above note were completed with the assistance of the mid-level provider. I reviewed and agree with the findings presented. I attest that I had a [id number] encounter with the patient on the same day, and personally performed and documented my assessment and findings in the medical record. Patient is stable. Does not look like in any distress Complaining of generalized pain Blood transfusion 1 unit today Further management per admitting team
[2018-07-13] MEDS: HYDROmorphone PF Inj 2 MG/ML Vial IV.PUSH PRN ×10 (00:34→23:24)
[2018-07-13] MEDS: Sod Chloride 0.9% Inj 1,000 ML IV.CONT SCH ×5 (00:34→23:24)
[2018-07-13 05:37] LABS: Mean Corpuscular HGB Conc 33.3 % (32.0-36.0); Mean Corpuscular Hemoglobin 27.4 pg (27.0-34.0); Mean Corpuscular Volume 82.3 fL (80.0-100.0); Mean Platelet Volume 7.6 fL (7.0-11.0); Platelet Count 493 th/mm3 (150-450); Red Blood Count 2.55 mil/mm3 (4.00-5.30); White Blood Count 23.1 th/mm3 (4.0-11.0)
[2018-07-13] MEDS: Senna/Docusate Sodium 8.6/50 MG Tablet PO SCH ×3 (07:55→20:18)
[2018-07-13] MEDS: Folic Acid 1 MG Tablet PO SCH ×2 (07:55→09:39)
--- NOTE | 2018-07-13 09:11 | P.PN ---
Subjective Interval history: Follow up for sickle cell crisis/anemia. The patient reports continued intractable diffuse body pains. Denies any specific chest pain. She does report some shortness of breath, but denies wheezing or cough. Denies fevers/chills. She is tolerating oral intake. She does not feel ready for discharge again today. Physical Exam Vital signs: Vital Signs 07/12/18 09:30 07/12/18 10:54 07/12/18 11:11 Temperature 98.8 F Pulse Rate 106 H 118 H Respiratory Rate 18 18 18 Blood Pressure 120/70 132/71 Pulse Oximetry 95 93 L 07/12/18 11:20 07/12/18 12:00 07/12/18 15:27 Temperature 99.9 F H Pulse Rate 104 H Respiratory Rate 16 18 16 Blood Pressure 128/73 Pulse Oximetry 100 07/12/18 16:00 07/12/18 18:14 07/12/18 20:00 Temperature 99 F 98.8 F Pulse Rate 106 H 57 L Respiratory Rate 18 16 16 Blood Pressure 125/67 136/70 Pulse Oximetry 98 92 L 07/12/18 20:42 07/12/18 22:04 07/12/18 23:35 Temperature Pulse Rate 106 H Respiratory Rate 18 18 Blood Pressure Pulse Oximetry 07/13/18 00:00 07/13/18 00:50 07/13/18 03:35 Temperature 98.6 F Pulse Rate 110 H Respiratory Rate 16 18 18 Blood Pressure 145/74 H Pulse Oximetry 91 L 07/13/18 03:50 07/13/18 04:00 07/13/18 06:09 Temperature 98.9 F Pulse Rate 113 H 72 Respiratory Rate 16 18 Blood Pressure 141/72 H Pulse Oximetry 92 L 07/13/18 08:00 Temperature 98.3 F Pulse Rate 95 H Respiratory Rate 20 Blood Pressure 145/88 H Pulse Oximetry 95 Intake & Output 07/12/18 07/13/18 07/13/18 18:59 06:59 18:59 Intake Total 3080 / 3080 1250 / 1250 1000 / 1000 Balance 3080 / 3080 1250 / 1250 1000 / 1000 Intake: IV 1999 1250 / 1250 1000 / 1000 NS Inj 1,000 ML @ 150 mls/hr IV 1999 1000 / 1000 1000 / 1000 .CONT .Q6H40M [facility] Rx#:[id number] NS Inj 250 ML @ 15 mls/hr IV. 250 / 250 SIG ONCE [facility] Rx#:[id number] Oral 680 / 680 Intake (Blood Product) Amt 400 / 400 Rbc As-3 Leukoreduced Unit 400 / 400 [id number] Other: # Voids 4 4 Date of Last Bowel Movement 07/12/18 07/12/18 # Bowel Movements 1 Narrative: GENERAL: Well-nourished, well-developed young AA female patient in NAD. SKIN: Warm and dry. No rash. Port accessed at upper chest. HEENT: Normocephalic. Atraumatic. Pupils equal and round. Mucous membranes pink and moist. CARDIOVASCULAR: Regular rate and rhythm. No murmur appreciated. RESPIRATORY: No accessory muscle use. Decreased inspiratory effort, otherwise clear to auscultation. Breath sounds equal bilaterally. GASTROINTESTINAL: Abdomen soft, non-tender, nondistended. Normoactive bowel sounds x4. MUSCULOSKELETAL: No obvious deformities. Extremities without clubbing, cyanosis , or edema. NEUROLOGICAL: AAOx4. No obvious cranial nerve deficits. Moving all extremities spontaneously. Normal speech. PSYCHIATRIC: Appropriate mood and affect; insight and judgment normal. Results - Labs CBC & Chem 7: 07/13/18 04:11 07/12/18 07:05 Laboratory Results - last 24 hr 07/11/18 07/13/18 13:05 04:11 WBC 23.1 H RBC 2.55 L Hgb 7.0 L Hct 21.0 L MCV 82.3 D MCH 27.4 MCHC 33.3 RDW 23.0 H Plt Count 493 H MPV 7.6 Blood Type AB Positive Antibody Screen Negative MTS Gel Crossmatch See Detail Bld Prod Order Comment Assessment and Plan - Assessment (1) Sickle cell crisis Code(s): D57.00 - Hb-SS disease with crisis, unspecified Status: Resolved (2) Anemia Code(s): D64.9 - Anemia, unspecified Status: Acute (3) Hypokalemia Code(s): E87.6 - Hypokalemia Status: Acute - Plan 27-year-old female currently going through vaso-occlusive crisis Sickle cell with Vaso-occlusive crisis and anemia -Hgb trended 7.6 --> 5.9 --> 5.7, transfused 1u pRBC on 07/12, hgb now 7.0 -Pain control regimen in place in IV Dilaudid and po benadryl -Continue IV fluid hydration -Consulted hematology, recommendations appreciated -Symptoms improving however patient does not feel ready for discharge Hypokalemia -K 3.0 -give KCl replacement -repeat BMP with K 3.7, resolved Asthma -chronic, does not appear to be in exacerbation -albuterol inhaler prn DVT Prophylaxis: teds/SCDs; avoid chemical prophylaxis with anemia Discharge Planning: Discharge pending further clinical improvement and hematology clearance.
[2018-07-14] MEDS: HYDROmorphone PF Inj 2 MG/ML Vial IV.PUSH PRN ×11 (01:53→22:12)
[2018-07-14] MEDS: Sod Chloride 0.9% Inj 1,000 ML IV.CONT SCH ×3 (06:11→14:04)
[2018-07-14 06:29] LABS: Hematocrit 21.1 % (35.0-46.0); Mean Corpuscular HGB Conc 32.8 % (32.0-36.0); Mean Corpuscular Hemoglobin 28.3 pg (27.0-34.0); Mean Corpuscular Volume 86.3 fL (80.0-100.0); Mean Platelet Volume 6.9 fL (7.0-11.0); Platelet Count 435 th/mm3 (150-450); Red Blood Count 2.45 mil/mm3 (4.00-5.30); Red Cell Distribution Width 24.6 % (11.6-17.2); White Blood Count 16.9 th/mm3 (4.0-11.0)
[2018-07-14 06:44] LABS: Hemoglobin 6.9 gm/dL (11.6-15.3)
[2018-07-14] MEDS: Senna/Docusate Sodium 8.6/50 MG Tablet PO SCH ×2 (08:04→20:06)
[2018-07-14] MEDS: Folic Acid 1 MG Tablet PO SCH (08:04)
--- NOTE | 2018-07-14 09:18 | P.PN ---
Subjective Interval history: Follow up for sickle cell crisis/anemia. Patient reports continued diffuse body pains again today. She reports minimal improvement. She states overnight she developed some nausea and had episodes of vomiting this morning. She denies any specific abdominal pains. She does not feel ready for discharge. Physical Exam Vital signs: Vital Signs 07/13/18 11:55 07/13/18 12:18 07/13/18 14:30 Temperature 98.8 F Pulse Rate 89 Respiratory Rate 16 18 18 Blood Pressure 128/72 Pulse Oximetry 98 07/13/18 16:00 07/13/18 16:30 07/13/18 20:00 Temperature 98.2 F 98.3 F Pulse Rate 92 H 93 H Respiratory Rate 18 18 17 Blood Pressure 128/76 144/77 H Pulse Oximetry 92 L 94 L 07/13/18 20:30 07/14/18 00:00 07/14/18 04:00 Temperature 97.8 F 97.7 F Pulse Rate 96 H 94 H 89 Respiratory Rate 18 18 Blood Pressure 142/96 H 136/89 Pulse Oximetry 94 L 94 L 07/14/18 04:05 Temperature Pulse Rate 91 H Respiratory Rate Blood Pressure Pulse Oximetry Intake & Output 07/13/18 07/14/18 07/14/18 18:59 06:59 18:59 Intake Total 3100 / 3100 1999 Balance 3100 / 3100 1999 Intake: IV 1999 NS Inj 1,000 ML @ 150 mls/hr IV 1999 .CONT .Q6H40M [facility] Rx#:[id number] Oral 1100 / 1100 Other: # Voids 6 8 Date of Last Bowel Movement 07/12/18 07/12/18 07/12/18 # Bowel Movements 0 Narrative: GENERAL: Well-nourished, well-developed young AA female patient in [facility]. SKIN: Warm and dry. No rash. Port accessed at upper chest. HEENT: Normocephalic. Atraumatic. Pupils equal and round. Mucous membranes pink and moist. CARDIOVASCULAR: Regular rate and rhythm. No murmur appreciated. RESPIRATORY: No accessory muscle use. Decreased inspiratory effort, otherwise clear to auscultation. Breath sounds equal bilaterally. GASTROINTESTINAL: Abdomen soft, non-tender, nondistended. Normoactive bowel sounds x4. MUSCULOSKELETAL: No obvious deformities. Extremities without clubbing, cyanosis , or edema. NEUROLOGICAL: AAOx4. No obvious cranial nerve deficits. Moving all extremities spontaneously. Normal speech. PSYCHIATRIC: Appropriate mood and affect; insight and judgment normal. Results - Labs CBC & Chem 7: 07/14/18 06:15 07/12/18 07:05 Laboratory Results - last 24 hr 07/14/18 06:15 WBC 16.9 H RBC 2.45 L Hgb 6.9 L* Hct 21.1 L MCV 86.3 D MCH 28.3 MCHC 32.8 RDW 24.6 H Plt Count 435 MPV 6.9 L Assessment and Plan - Assessment (1) Sickle cell crisis Code(s): D57.00 - Hb-SS disease with crisis, unspecified Status: Resolved (2) Anemia Code(s): D64.9 - Anemia, unspecified Status: Acute (3) Hypokalemia Code(s): E87.6 - Hypokalemia Status: Acute - Plan 27-year-old female currently going through vaso-occlusive crisis Sickle cell with Vaso-occlusive crisis and anemia -Hgb trended 7.6 --> 5.9 --> 5.7, transfused 1u pRBC on 07/12, hgb now 6.9 -Pain control regimen in place in IV Dilaudid and po benadryl -Continue IV fluid hydration -Consulted hematology, recommendations appreciated -Symptoms improving however patient does not yet feel ready for discharge Hypokalemia -K 3.0 -give KCl replacement -repeat BMP with K 3.7, resolved Asthma -chronic, does not appear to be in exacerbation -albuterol inhaler prn Nausea/vomiting -Unclear etiology -Supportive treatment with IVF and antiemetics as needed -Does have elevated LFTs although consistent with previous, check repeat CMP and lipase -Consider abdominal imaging if symptoms do not improve DVT Prophylaxis: teds/SCDs; avoid chemical prophylaxis with anemia Discharge Planning: Discharge pending further clinical improvement and hematology clearance.
[2018-07-14] MEDS ORDERED: HYDROmorphone PF Inj 1 MG/ML Ampul IV.PUSH PRN (14:15)
[2018-07-14 17:21] LABS: Alanine Aminotransferase 14 U/L (10-53); Albumin 3.3 g/dL (3.4-5.0); Alkaline Phosphatase 62 U/L (45-117); Anion Gap 8 meq/L (5-15); Aspartate Aminotransferase 46 U/L (15-37); Blood Urea Nitrogen 3 mg/dL (7-18); Carbon Dioxide 25.7 meq/L (21.0-32.0); Chloride 112 meq/L (98-107); Glomerular Filtration Rate Greater Than 89 mL/min (>89); Glucose,Random 69 mg/dL (74-106); Lipase 103 U/L (73-393); Sodium 146 meq/L (136-145); Total Protein 6.7 g/dL (6.4-8.2)
[2018-07-14 18:57] LABS: Potassium 2.7 meq/L (3.5-5.1)
[2018-07-14] MEDS: Potassium Chlor 10 mEq Premix 10 MEQ/100 ML PIGGYBACK IV.SIG SCH ×3 (20:05→23:01)
[2018-07-14] MEDS: Sodium Chloride 0.9% 2 ML Flush BID IV.FLUSH SCH (20:21)
[2018-07-15] MEDS: HYDROmorphone PF Inj 2 MG/ML Vial IV.PUSH PRN ×12 (00:22→23:30)
[2018-07-15 05:58] LABS: Baso # (Auto) 0.1 th/mm3 (0.0-0.2); Baso % (Auto) 0.7 % (0.0-2.0); Eos # (Auto) 0.6 th/mm3 (0.0-0.4); Eos % (Auto) 4.1 % (0.0-4.0); Hematocrit 22.2 % (35.0-46.0); Hemoglobin 7.4 gm/dL (11.6-15.3); Lymph # (Auto) 3.7 th/mm3 (1.0-4.8); Lymph % (Auto) 23.4 % (9.0-44.0); Mean Corpuscular HGB Conc 33.2 % (32.0-36.0); Mean Corpuscular Hemoglobin 28.9 pg (27.0-34.0); Mean Corpuscular Volume 86.9 fL (80.0-100.0); Mean Platelet Volume 7.6 fL (7.0-11.0); Mono # (Auto) 1.9 th/mm3 (0.0-0.9); Mono % (Auto) 12.1 % (0.0-8.0); Neut # (Auto) 9.5 th/mm3 (1.8-7.7); Neut % (Auto) 59.7 % (16.0-70.0); Platelet Count 443 th/mm3 (150-450); Red Blood Count 2.56 mil/mm3 (4.00-5.30); Red Cell Distribution Width 27.8 % (11.6-17.2); White Blood Count 15.9 th/mm3 (4.0-11.0)
[2018-07-15 06:09] LABS: Anion Gap 9 meq/L (5-15); Calcium 8.6 mg/dL (8.5-10.1); Carbon Dioxide 28.1 meq/L (21.0-32.0); Chloride 108 meq/L (98-107); Glomerular Filtration Rate Greater Than 89 mL/min (>89); Glucose,Random 80 mg/dL (74-106); Sodium 145 meq/L (136-145)
[2018-07-15 06:16] LABS: Blood Urea Nitrogen 2 mg/dL (7-18)
[2018-07-15] MEDS ORDERED: Mag Sulf 1 gm/100 ml Premix 100 ML IV.SIG ONE (07:58)
[2018-07-15 08:28] LABS: Eosinophils 6 % (0-4); Lymphocytes 29 % (9-44); Monocytes 19 % (0-8); Myelocytes 1 % (0-0); Tallied Nucleated RBC 73 (0-0)
[2018-07-15 08:29] LABS: Platelet Estimate Normal (Normal); Platelet Morphology Normal (Normal); Sickle Cells 1+
[2018-07-15 08:30] LABS: Howell-Jolly Bodies Present; Pappenheimer Bodies Present; Polychromasia 2.2 % (0.0-1.9)
[2018-07-15] MEDS: Folic Acid 1 MG Tablet PO SCH (08:47)
[2018-07-15] MEDS: Senna/Docusate Sodium 8.6/50 MG Tablet PO SCH ×2 (08:48→21:28)
--- NOTE | 2018-07-15 09:25 | P.PN ---
Subjective Interval history: Follow-up for sickle cell crisis/anemia, nausea/vomiting. Patient reports feeling slightly better today, however still does not feel ready for discharge. She reports continued nausea, no vomiting since yesterday. States she is not eating very well. She reports continued body aches. Discussed possible discharge tomorrow 07/16, patient agrees with this plan. She has no other medical complaints at this time. Physical Exam Vital signs: Vital Signs 07/14/18 09:34 07/14/18 10:46 07/14/18 12:00 Temperature 98.4 F Pulse Rate 80 Respiratory Rate 18 18 14 Blood Pressure 141/76 H Pulse Oximetry 98 07/14/18 12:45 07/14/18 14:58 07/14/18 16:00 Temperature 99.2 F Pulse Rate 77 Respiratory Rate 16 16 14 Blood Pressure 139/79 Pulse Oximetry 94 L 07/14/18 16:53 07/14/18 18:58 07/14/18 20:00 Temperature 98.9 F Pulse Rate 76 Respiratory Rate 16 18 15 Blood Pressure 151/80 H Pulse Oximetry 94 L 07/15/18 00:00 07/15/18 04:00 Temperature 98.6 F 98.0 F Pulse Rate 68 63 Respiratory Rate 15 17 Blood Pressure 144/72 H 144/71 H Pulse Oximetry 94 L 94 L Intake & Output 07/14/18 07/15/18 07/15/18 18:59 06:59 18:59 Intake Total 1720 / 1720 2300 / 2300 Balance 1720 / 1720 2300 / 2300 Intake: IV 1000 / 1000 2300 / 2300 KCl Inj 10 MEQ In LR 1000 mL 1000 / 1000 Inj 1,000 ML @ 150 mls/hr IV. CONT .Q6H42M [facility] Rx#:[id number] NS Inj 1,000 ML @ 150 mls/hr IV 1000 / 1000 1000 / 1000 .CONT .Q6H40M [facility] Rx#:[id number] KCl 10 mEq Premix Inj 10 meq In 300 / 300 100 ml @ 100 mls/hr IV.SIG Q1H [facility] Rx#:[id number] Oral 720 / 720 Other: # Voids 3 6 Date of Last Bowel Movement 07/12/18 07/12/18 07/12/18 # Bowel Movements 0 Narrative: GENERAL: Well-nourished, well-developed young AA female patient in NAD. SKIN: Warm and dry. No rash. Port accessed at upper chest. HEENT: Normocephalic. Atraumatic. Pupils equal and round. Mucous membranes pink and moist. CARDIOVASCULAR: Regular rate and rhythm. No murmur appreciated. RESPIRATORY: No accessory muscle use. Decreased inspiratory effort, otherwise clear to auscultation. Breath sounds equal bilaterally. GASTROINTESTINAL: Abdomen soft, non-tender, nondistended. Normoactive bowel sounds x4. MUSCULOSKELETAL: No obvious deformities. Extremities without clubbing, cyanosis , or edema. NEUROLOGICAL: AAOx4. No obvious cranial nerve deficits. Moving all extremities spontaneously. Normal speech. PSYCHIATRIC: Appropriate mood and affect; insight and judgment normal. Results - Labs CBC & Chem 7: 07/15/18 04:50 07/15/18 04:50 Laboratory Results - last 24 hr 07/14/18 07/15/18 07/15/18 14:30 04:50 04:50 WBC 15.9 H RBC 2.56 L Hgb 7.4 L Hct 22.2 L MCV 86.9 MCH 28.9 MCHC 33.2 RDW 27.8 H D Plt Count 443 MPV 7.6 Prelim Diff (Auto) Slide review pending Neut % (Auto) 59.7 Lymph % (Auto) 23.4 Lynn % (Auto) 12.1 H Eos % (Auto) 4.1 H Baso % (Auto) 0.7 Neut # (Auto) 9.5 H Lymph # (Auto) 3.7 Lynn # (Auto) 1.9 H Eos # (Auto) 0.6 H Baso # (Auto) 0.1 WBC Differential Manual diff final Seg Neuts % (Manual) 45 Lymphocytes % (Manual) 29 Monocytes % (Manual) 19 H Eosinophils % (Manual) 6 H Myelocytes % (Man) 1 H Abs Neuts (Manual) 7.3 Nucleated RBCs/100 WBC 73 H Differential Comment . Platelet Estimate Normal Platelet Morphology Normal Polychromasia 2.2 H Pappenheimer Bodies Present H Sickle Cells 1+ H Karimi-[place] Level Bodies Present H Keratocytes Occ H Sodium 146 H 145 Potassium 2.7 L* 3.0 L Chloride 112 H 108 H Carbon Dioxide 25.7 28.1 Anion Gap 8 9 BUN 3 L 2 L Creatinine 0.65 0.56 Estimated GFR Greater than 89 Greater than 89 Random Glucose 69 L 80 Calcium 8.0 L 8.6 Total Bilirubin 2.5 H AST 46 H ALT 14 Alkaline Phosphatase 62 Total Protein 6.7 D Albumin 3.3 L Lipase 103 Assessment and Plan - Assessment (1) Sickle cell crisis Code(s): D57.00 - Hb-SS disease with crisis, unspecified Status: Resolved (2) Anemia Code(s): D64.9 - Anemia, unspecified Status: Acute (3) Hypokalemia Code(s): E87.6 - Hypokalemia Status: Acute - Plan 27-year-old female currently going through vaso-occlusive crisis Sickle cell with Vaso-occlusive crisis and anemia -Hgb trended 7.6 --> 5.9 --> 5.7, transfused 1u pRBC on 07/12, hgb now 7.4 -Pain control regimen in place in IV Dilaudid and po benadryl -Continue IV fluid hydration -Consulted hematology, recommendations appreciated -Symptoms improving however patient does not yet feel ready for discharge Hypokalemia -K 2.7 -give po and IV KCl replacement -repeat K this afternoon Asthma -chronic, does not appear to be in exacerbation -albuterol inhaler prn Nausea/vomiting -Unclear etiology -Supportive treatment with IVF and antiemetics as needed -Does have elevated LFTs although consistent with previous, repeat CMP stable and lipase wnl -Symptoms improving DVT Prophylaxis: teds/SCDs; avoid chemical prophylaxis with anemia Discharge Planning: Discharge pending further clinical improvement and hematology clearance. Hopefully discharge on 07/16.
[2018-07-15] MEDS: Sodium Chloride 0.9% 2 ML Flush BID IV.FLUSH SCH ×2 (09:48→21:28)
[2018-07-15] MEDS: Potassium Chlor 20 mEq Premix 20 MEQ/100 ML PIGGYBACK IV.SIG SCH ×2 (10:19→12:56)
[2018-07-16] MEDS: HYDROmorphone PF Inj 2 MG/ML Vial IV.PUSH PRN ×7 (02:04→17:27)
[2018-07-16] MEDS: Folic Acid 1 MG Tablet PO SCH (08:18)
[2018-07-16] MEDS: Senna/Docusate Sodium 8.6/50 MG Tablet PO SCH ×2 (08:18→23:08)
--- NOTE | 2018-07-16 09:24 | P.PN ---
Subjective Interval history: Follow up for sickle cell anemia/crisis. The patient reports continued diffuse body aches, worse throughout her back and legs. She states she has been intermittently nauseous and vomiting, last episode yesterday, unwitnessed by nursing staff. Denies any specific abdominal pains. Denies fevers/chills. She does not feel ready for discharge. Physical Exam Vital signs: Vital Signs 07/15/18 11:24 07/15/18 12:00 07/15/18 13:26 Temperature 98.5 F Pulse Rate 76 Respiratory Rate 18 16 Blood Pressure 135/75 Pulse Oximetry 96 07/15/18 15:28 07/15/18 16:00 07/15/18 17:34 Temperature 98.4 F Pulse Rate 98 H Respiratory Rate 18 Blood Pressure 127/68 Pulse Oximetry 95 07/15/18 20:00 07/16/18 00:35 07/16/18 05:25 Temperature 98.0 F 98.7 F 98.8 F Pulse Rate 85 85 86 Respiratory Rate 18 Blood Pressure 128/74 118/67 142/66 H Pulse Oximetry 95 95 95 Intake & Output 07/15/18 07/16/18 07/16/18 18:59 06:59 18:59 Intake Total 1305 / 1305 1240 / 1240 Balance 1305 / 1305 1240 / 1240 Weight 76.5 kg Intake: IV 1305 / 1305 1000 / 1000 KCl Inj 10 MEQ In LR 1000 mL 1005 / 1005 1000 / 1000 Inj 1,000 ML @ 150 mls/hr IV. CONT .Q6H42M [facility] Rx#:[id number] Magnesium Sulfate 1 gm/D5W 100 100 / 100 ml Premix 100 ML @ 100 mls/hr IV.SIG ONCE ONE Rx#:[id number] KCl 20 mEq Premix Inj 20 meq In 200 / 200 100 ml @ 50 mls/hr IV.SIG Q2H [facility] Rx#:[id number] Oral 240 / 240 Other: # Voids 2 3 Date of Last Bowel Movement 07/12/18 07/15/18 07/15/18 Narrative: GENERAL: Well-nourished, well-developed young AA female patient in [facility]. Appears comfortable, lying in bed. SKIN: Warm and dry. No rash. Port accessed at upper chest. HEENT: Normocephalic. Atraumatic. Pupils equal and round. Mucous membranes pink and moist. CARDIOVASCULAR: Regular rate and rhythm. No murmur appreciated. RESPIRATORY: No accessory muscle use. Decreased inspiratory effort, otherwise clear to auscultation. Breath sounds equal bilaterally. GASTROINTESTINAL: Abdomen soft, non-tender, nondistended. Normoactive bowel sounds x4. MUSCULOSKELETAL: No obvious deformities. Extremities without clubbing, cyanosis , or edema. NEUROLOGICAL: AAOx4. No obvious cranial nerve deficits. Moving all extremities spontaneously. Normal speech. PSYCHIATRIC: Appropriate mood and affect; insight and judgment normal. Results - Labs CBC & Chem 7: 07/15/18 04:50 07/15/18 15:45 Laboratory Results - last 24 hr 07/15/18 15:45 Potassium 3.4 L Assessment and Plan - Assessment (1) Sickle cell crisis Code(s): D57.00 - Hb-SS disease with crisis, unspecified Status: Resolved (2) Anemia Code(s): D64.9 - Anemia, unspecified Status: Acute (3) Hypokalemia Code(s): E87.6 - Hypokalemia Status: Acute - Plan 27-year-old female currently going through vaso-occlusive crisis Sickle cell with Vaso-occlusive crisis and anemia -Hgb trended 7.6 --> 5.9 --> 5.7, transfused 1u pRBC on 07/12, hgb now stable at 7.4 -Pain control regimen in place in IV Dilaudid and po benadryl -Continue IV fluid hydration -Consulted hematology, recommendations appreciated -Symptoms improving however patient does not yet feel ready for discharge, still reporting diffuse pains -07/16 decrease frequency of pain medication from q2h to q3h Hypokalemia -K 2.7 -give po and IV KCl replacement -repeat K this afternoon Asthma -chronic, does not appear to be in exacerbation -albuterol inhaler prn Nausea/vomiting -Unclear etiology, vomiting/emesis not witnessed by nursing staff -Supportive treatment with IVF and antiemetics as needed -Does have elevated LFTs although consistent with previous, repeat CMP stable and lipase wnl -Symptoms improving DVT Prophylaxis: teds/SCDs; avoid chemical prophylaxis with anemia Discharge Planning: Discharge pending further clinical improvement. Patient adamantly stating she is not ready for discharge. Hopefully discharge on 07/17.
[2018-07-16] MEDS: Sodium Chloride 0.9% 2 ML Flush BID IV.FLUSH SCH ×2 (09:41→20:35)
[2018-07-16] MEDS: HYDROmorphone PF Inj 1 MG/ML Ampul IV.PUSH PRN ×2 (20:25→23:26)
[2018-07-17] MEDS: HYDROmorphone PF Inj 1 MG/ML Ampul IV.PUSH PRN ×7 (02:26→21:28)
[2018-07-17] MEDS: Folic Acid 1 MG Tablet PO SCH (08:48)
[2018-07-17] MEDS: Senna/Docusate Sodium 8.6/50 MG Tablet PO SCH ×2 (08:49→21:28)
[2018-07-17] MEDS: Sodium Chloride 0.9% 2 ML Flush BID IV.FLUSH SCH ×2 (08:49→21:28)
--- NOTE | 2018-07-17 10:33 | P.PN ---
Subjective Interval history: Follow up for sickle cell crisis/anemia, nausea/vomiting. The patient reports not feeling well again today. She reports continued intermittent nausea, no vomiting. She states she is only tolerating small amounts of oral intake. She reports upper abdominal discomfort. She reports normal BMs. She continues to have diffuse body aches throughout her joints. She does not feel ready to go home. Discussed decreasing IV pain meds and restarting on her home dose of [place] , patient agrees. Physical Exam Vital signs: Vital Signs 07/16/18 11:59 07/16/18 12:00 07/16/18 14:59 Temperature 98.9 F Pulse Rate 89 Respiratory Rate 16 Blood Pressure 119/63 Pulse Oximetry 94 L 07/16/18 16:00 07/16/18 17:57 07/16/18 20:00 Temperature 98.4 F 98.8 F Pulse Rate 83 79 Respiratory Rate 18 Blood Pressure 116/69 137/78 Pulse Oximetry 93 L 98 07/16/18 23:43 07/17/18 04:00 07/17/18 08:00 Temperature 99.6 F 98.4 F 98.7 F Pulse Rate 90 75 79 Respiratory Rate 18 Blood Pressure 139/77 121/69 139/72 Pulse Oximetry 96 96 97 07/17/18 09:50 Temperature Pulse Rate Respiratory Rate Blood Pressure Pulse Oximetry 95 Intake & Output 07/16/18 07/17/18 07/17/18 18:59 06:59 18:59 Intake Total 1005 / 1005 2610 / 2610 1005 / 1005 Balance 1005 / 1005 2610 / 2610 1005 / 1005 Weight 77.2 kg Intake: IV 1005 / 1005 2009 1005 / 1005 KCl Inj 10 MEQ In LR 1000 mL 1005 / 1005 2009 1005 / 1005 Inj 1,000 ML @ 150 mls/hr IV. CONT .Q6H42M [facility] Rx#:[id number] Oral 600 / 600 Other: # Voids 2 5 Date of Last Bowel Movement 07/15/18 07/16/18 07/15/18 # Bowel Movements 1 Narrative: GENERAL: Well-nourished, well-developed young AA female patient in [facility]. Appears comfortable, lying in bed. SKIN: Warm and dry. No rash. Port accessed at upper chest. Old left upper chest port scar. HEENT: Normocephalic. Atraumatic. Pupils equal and round. Mucous membranes pink and moist. CARDIOVASCULAR: Regular rate and rhythm. No murmur appreciated. RESPIRATORY: No accessory muscle use. Decreased inspiratory effort, otherwise clear to auscultation. Breath sounds equal bilaterally. GASTROINTESTINAL: Abdomen soft, non-tender, nondistended. Normoactive bowel sounds x4. MUSCULOSKELETAL: No obvious deformities. Extremities without clubbing, cyanosis , or edema. NEUROLOGICAL: AAOx4. No obvious cranial nerve deficits. Moving all extremities spontaneously. Normal speech. PSYCHIATRIC: Appropriate mood and affect; insight and judgment normal. Results - Labs CBC & Chem 7: 07/15/18 04:50 07/15/18 15:45 Assessment and Plan - Assessment (1) Sickle cell crisis Code(s): D57.00 - Hb-SS disease with crisis, unspecified Status: Resolved (2) Anemia Code(s): D64.9 - Anemia, unspecified Status: Acute (3) Hypokalemia Code(s): E87.6 - Hypokalemia Status: Acute - Plan 27-year-old female currently going through vaso-occlusive crisis Sickle cell with Vaso-occlusive crisis and anemia -Hgb trended 7.6 --> 5.9 --> 5.7, transfused 1u pRBC on 07/12, hgb now stable at 7.4 -Pain control regimen in place in IV Dilaudid and po benadryl -Continue IV fluid hydration -Consulted hematology, recommendations appreciated -Symptoms improving however patient does not yet feel ready for discharge, still reporting diffuse pains -07/16 decrease frequency of pain medication from q2h to q3h -07/17 restart patient's home [place], and decrease IV dilaudid to 1mg q3h prn breakthrough pain, patient agrees Hypokalemia -K 2.7 -give po and IV KCl replacement -repeat K 3.4 -continue daily po KCl replacement Asthma -chronic, does not appear to be in exacerbation -albuterol inhaler prn Nausea/vomiting -Unclear etiology, vomiting/emesis not witnessed by nursing staff -Supportive treatment with IVF and antiemetics as needed -Does have elevated LFTs although consistent with previous, repeat CMP stable and lipase wnl -Symptoms improving, tolerating small amounts of oral intake, continue to monitor DVT Prophylaxis: teds/SCDs; avoid chemical prophylaxis with anemia Discharge Planning: Discharge pending further clinical improvement. Patient adamantly stating she is not ready for discharge. Hopefully discharge within 1-2 days.
[2018-07-18] MEDS: HYDROmorphone PF Inj 1 MG/ML Ampul IV.PUSH PRN ×7 (00:46→22:59)
[2018-07-18 07:53] LABS: Hematocrit 22.8 % (35.0-46.0); Hemoglobin 8.3 gm/dL (11.6-15.3); Mean Corpuscular Hemoglobin 31.7 pg (27.0-34.0); Mean Corpuscular Volume 87.5 fL (80.0-100.0); Platelet Count 337 th/mm3 (150-450); Red Blood Count 2.61 mil/mm3 (4.00-5.30); Red Cell Distribution Width 25.5 % (11.6-17.2); White Blood Count 9.9 th/mm3 (4.0-11.0)
[2018-07-18 08:03] LABS: Mean Corpuscular HGB Conc 36.2 % (32.0-36.0)
[2018-07-18] MEDS: Folic Acid 1 MG Tablet PO SCH (08:20)
[2018-07-18 08:21] LABS: Anion Gap 7 meq/L (5-15); Blood Urea Nitrogen 4 mg/dL (7-18); Calcium 8.4 mg/dL (8.5-10.1); Carbon Dioxide 31.7 meq/L (21.0-32.0); Chloride 101 meq/L (98-107); Glomerular Filtration Rate Greater Than 89 mL/min (>89); Glucose,Random 90 mg/dL (74-106); Magnesium 1.7 mg/dL (1.5-2.5); Potassium 3.7 meq/L (3.5-5.1); Sodium 140 meq/L (136-145)
[2018-07-18] MEDS: Senna/Docusate Sodium 8.6/50 MG Tablet PO SCH ×2 (08:21→22:28)
[2018-07-18] MEDS: Sodium Chloride 0.9% 2 ML Flush BID IV.FLUSH SCH ×2 (08:21→22:28)
[2018-07-18] MEDS ORDERED: Mag Sulf 1 gm/100 ml Premix 100 ML IV.SIG ONE (09:01)
--- NOTE | 2018-07-18 09:01 | P.PN ---
Subjective Interval history: Follow up for sickle cell crisis/anemia, nausea/vomiting. The patient reports feeling slightly better today, however still with diffuse body pains and intermittent nausea. Denies vomiting. She states she is tolerating small amounts of oral intake. Denies any abdominal pain. Denies fevers/chills, chest pain, or shortness of breath. Does not feel ready for discharge. Physical Exam Vital signs: Vital Signs 07/17/18 09:50 07/17/18 12:00 07/17/18 15:55 Temperature 98.8 F 97.4 F L Pulse Rate 85 101 H Respiratory Rate Blood Pressure 148/88 H 128/92 H Pulse Oximetry 95 97 97 07/17/18 20:00 07/18/18 00:00 07/18/18 08:00 Temperature 98.3 F 98.1 F 98.2 F Pulse Rate 76 76 78 Respiratory Rate 18 18 Blood Pressure 118/70 130/77 124/61 Pulse Oximetry 96 94 L 97 Intake & Output 07/17/18 07/18/18 07/18/18 18:59 06:59 18:59 Intake Total 3310 / 3310 1005 / 1005 Balance 3310 / 3310 1005 / 1005 Weight 78.6 kg Intake: IV 2009 1005 / 1005 KCl Inj 10 MEQ In LR 1000 mL 2009 1005 / 1005 Inj 1,000 ML @ 150 mls/hr IV. CONT .Q6H42M [facility] Rx#:[id number] Oral 1300 / 1300 Other: # Voids 5 4 Date of Last Bowel Movement 07/15/18 07/15/18 Narrative: GENERAL: Well-nourished, well-developed young AA female patient in [facility]. Appears comfortable, lying in bed, more conversive today. SKIN: Warm and dry. No rash. Port accessed at upper chest. Old left upper chest port scar. HEENT: Normocephalic. Atraumatic. Pupils equal and round. Mucous membranes pink and moist. CARDIOVASCULAR: Regular rate and rhythm. No murmur appreciated. RESPIRATORY: No accessory muscle use. Decreased inspiratory effort, otherwise clear to auscultation. Breath sounds equal bilaterally. GASTROINTESTINAL: Abdomen soft, non-tender, nondistended. Normoactive bowel sounds x4. MUSCULOSKELETAL: No obvious deformities. Extremities without clubbing, cyanosis , or edema. NEUROLOGICAL: AAOx4. No obvious cranial nerve deficits. Moving all extremities spontaneously. Normal speech. PSYCHIATRIC: Appropriate mood and affect; insight and judgment normal. Results - Labs CBC & Chem 7: 07/18/18 06:30 07/18/18 06:30 Laboratory Results - last 24 hr 07/18/18 07/18/18 06:30 06:30 WBC 9.9 RBC 2.61 L Hgb 8.3 L Hct 22.8 L MCV 87.5 MCH 31.7 MCHC 36.2 H RDW 25.5 H Plt Count 337 MPV 8.0 Sodium 140 Potassium 3.7 Chloride 101 Carbon Dioxide 31.7 Anion Gap 7 BUN 4 L Creatinine 0.53 Estimated GFR Greater than 89 Random Glucose 90 Calcium 8.4 L Magnesium 1.7 Assessment and Plan - Assessment (1) Sickle cell crisis Code(s): D57.00 - Hb-SS disease with crisis, unspecified Status: Resolved (2) Anemia Code(s): D64.9 - Anemia, unspecified Status: Acute (3) Hypokalemia Code(s): E87.6 - Hypokalemia Status: Acute - Plan 27-year-old female currently going through vaso-occlusive crisis Sickle cell with Vaso-occlusive crisis and anemia -Hgb trended 7.6 --> 5.9 --> 5.7, transfused 1u pRBC on 07/12, hgb now stable at 8.3 -Pain control regimen in place with IV Dilaudid and po benadryl -Continue IV fluid hydration -Consulted hematology, recommendations appreciated -Symptoms improving however patient does not yet feel ready for discharge, still reporting diffuse pains -07/16 decrease frequency of pain medication from q2h to q3h -07/17 restart patient's home [place], and decrease IV dilaudid to 1mg q3h prn breakthrough pain, patient agrees -07/18 will decrease dilaudid frequency to q4h, patient still does not feel ready for discharge Hypokalemia -K 2.7 -give po and IV KCl replacement -repeat K 3.7 -continue daily po KCl replacement, although patient refuses Asthma -chronic, does not appear to be in exacerbation -albuterol inhaler prn Nausea/vomiting -Unclear etiology, vomiting/emesis not witnessed by nursing staff -Supportive treatment with IVF and antiemetics as needed -Does have elevated LFTs although consistent with previous, repeat CMP stable and lipase wnl -Symptoms improving, tolerating small amounts of oral intake, continue to monitor DVT Prophylaxis: teds/SCDs; avoid chemical prophylaxis with anemia Discharge Planning: Discharge pending further clinical improvement. Patient adamantly stating she is not ready for discharge. Hopefully discharge within 1-2 days.
[2018-07-19] MEDS: HYDROmorphone PF Inj 1 MG/ML Ampul IV.PUSH PRN ×2 (02:59→06:38)
[2018-07-19] MEDS: Folic Acid 1 MG Tablet PO SCH (09:41)
[2018-07-19] MEDS: Senna/Docusate Sodium 8.6/50 MG Tablet PO SCH ×2 (09:42→21:29)
--- NOTE | 2018-07-19 11:37 | P.PN ---
Subjective Interval history: Follow up on patient with sickle cell crisis. Patient seen and examined. Patient still complains of total body pain. She is still requiring IV Dilaudid for pain management. She is complaining of nausea. She reports vomiting yesterday but none today. She states that she was unable to eat dinner and is not interested in breakfast due to the severity of her nausea. She denies any fever or chills. She complains of intermittent abdominal pain. She states she is urinating without any difficulties. She denies any diarrhea or constipation. Physical Exam Vital signs: Vital Signs 07/18/18 11:38 07/18/18 16:00 07/18/18 20:00 Temperature 98.0 F 98.0 F 98.3 F Pulse Rate 95 H 79 80 Respiratory Rate 18 16 17 Blood Pressure 107/57 L 130/69 131/72 Pulse Oximetry 97 96 97 07/19/18 00:00 07/19/18 07:55 Temperature 98.4 F 98.3 F Pulse Rate 79 74 Respiratory Rate 17 19 Blood Pressure 116/56 L 134/84 Pulse Oximetry 98 96 Intake & Output 07/18/18 07/19/18 07/19/18 18:59 06:59 18:59 Intake Total 2605 / 2605 1005 / 1005 Balance 2605 / 2605 1005 / 1005 Weight 78.3 kg Intake: IV 1005 / 1005 1005 / 1005 KCl Inj 10 MEQ In LR 1000 mL 1005 / 1005 1005 / 1005 Inj 1,000 ML @ 150 mls/hr IV. CONT .Q6H42M [facility] Rx#:[id number] Oral 1600 / 1600 Other: # Voids 4 3 Date of Last Bowel Movement 07/15/18 07/15/18 Narrative: GENERAL: Well-nourished, well-developed young AA female patient in [facility]. Appears comfortable, lying awake in bed. SKIN: Warm and dry. No rash. Port accessed at upper chest. Old left upper chest port scar. HEENT: Normocephalic. Atraumatic. Pupils equal and round. No sclera icterus. Mucous membranes pink and moist. CARDIOVASCULAR: Regular rate and rhythm. No murmur appreciated. RESPIRATORY: No accessory muscle use. Decreased inspiratory effort, otherwise clear to auscultation. Breath sounds equal bilaterally. GASTROINTESTINAL: Abdomen soft, nondistended. +Mild diffuse tenderness to palpation. Normoactive bowel sounds x4. MUSCULOSKELETAL: No obvious deformities. Extremities without clubbing, cyanosis , or edema. NEUROLOGICAL: Awake and alert. No obvious cranial nerve deficits. Moving all extremities spontaneously. Normal speech. PSYCHIATRIC: Flat affect; insight and judgment normal. Results - Labs CBC & Chem 7: 07/19/18 11:35 07/18/18 06:30 Assessment and Plan - Assessment (1) Anemia Code(s): D64.9 - Anemia, unspecified Status: Acute (2) Hypokalemia Code(s): E87.6 - Hypokalemia Status: Acute - Plan 27-year-old female currently going through vaso-occlusive crisis Sickle cell with Vaso-occlusive crisis and anemia -Hgb trended 7.6 --> 5.9 --> 5.7, transfused 1u pRBC on 07/12, hgb now stable at 8.3. 07/19 repeat Hgb 8.9. -Pain control regimen in place with IV Dilaudid and po benadryl -Hematology following, appreciate recommendations -Symptoms improving however patient does not yet feel ready for discharge, still reporting diffuse pains -07/16 decrease frequency of pain medication from q2h to q3h -07/17 restart patient's home [place], and decrease IV dilaudid to 1mg q3h prn breakthrough pain, patient agrees -07/18 will decrease dilaudid frequency to q4h, patient still does not feel ready for discharge -07/19 d/c IV dilaudid. [place] frequency increased to q4h. Give 3L supplemental oxygen continuous, do not wean. PT eval/tx. Hypokalemia K 2.7 -resolved s/p repletion -daily po repletion ordered but patient refusing Asthma -chronic, does not appear to be in exacerbation -albuterol inhaler prn Nausea/vomiting -Unclear etiology, vomiting/emesis not witnessed by nursing staff -Supportive treatment with IVF and antiemetics as needed -Does have elevated LFTs although consistent with previous, repeat CMP stable and lipase wnl -Symptoms improving, tolerating small amounts of oral intake, continue to monitor DVT Prophylaxis: teds/SCDs; avoid chemical prophylaxis with anemia Code Status: Full Discussed Condition With: patient, nursing staff, Dr. Hahn Discharge Planning: Patient still not ready for discharge. Likely discharge in the next 24 hours.
[2018-07-19 11:50] LABS: Hematocrit 26.6 % (35.0-46.0); Hemoglobin 8.9 gm/dL (11.6-15.3); Mean Corpuscular HGB Conc 33.6 % (32.0-36.0); Mean Corpuscular Hemoglobin 29.6 pg (27.0-34.0); Mean Corpuscular Volume 88.1 fL (80.0-100.0); Mean Platelet Volume 8.2 fL (7.0-11.0); Platelet Count 352 th/mm3 (150-450); Red Blood Count 3.01 mil/mm3 (4.00-5.30); Red Cell Distribution Width 23.7 % (11.6-17.2)
[2018-07-19] MEDS: Sodium Chloride 0.9% 2 ML Flush BID IV.FLUSH SCH ×2 (12:20→21:30)
[2018-07-19 12:36] LABS: Eosinophils 3 % (0-4); Lymphocytes 15 % (9-44); Monocytes 1 % (0-8); Platelet Estimate Normal (Normal); Tallied Nucleated RBC 3 (0-0)
[2018-07-19 12:37] LABS: Pappenheimer Bodies Present; Platelet Morphology Normal (Normal); Target Cells 2+
[2018-07-19 15:14] LABS: Anion Gap 7 meq/L (5-15); Blood Urea Nitrogen 4 mg/dL (7-18); Calcium 8.7 mg/dL (8.5-10.1); Carbon Dioxide 30.2 meq/L (21.0-32.0); Chloride 101 meq/L (98-107); Glomerular Filtration Rate Greater Than 89 mL/min (>89); Glucose,Random 112 mg/dL (74-106); Sodium 138 meq/L (136-145)
--- NOTE | 2018-07-20 08:18 | P.DS ---
Date of admission: 07/10/18 02:54 Primary care physician: UNKNOWN Attending physician on discharge: Stone Hahn Anticipated date of discharge: 07/20/18 Brief History from admission: This is a 27-year-old female with a PMH of Sickle Cell Disease and Asthma who presented to the ER w/ c/o generalized pain typical of sickle crisis. Pt is very well known to the ER for multiple presentations monthly w/ similar complaints. Reports severe pain, 10/10, non-radiating, generalized. Denies fever or chills. Has been taking home Percocet w/ no improvement in pain complaints. Follows w/ Dr. Gamino as outpatient, has upcoming appt in a few days. On arrival, BP 148/84, HR 101, O2 sat 100% on RA, Afebrile. WBC 14.6. Hemoglobin 7.6. Reticulocyte Count 5.8. K+ 3.0. UA negative for UTI. S/p Dilaudid x5 doses in ER w/ mild improvement. Patient update on day of discharge: Patient seen and examined. Patient appears comfortable lying in bed. Asleep but easily awakens to voice. Continues to report total body pain but improved since admission. Does not voice any acute medical complaints or concerns. She refused participation with therapy. She is not wearing oxygen that was ordered. DW nursing staff, no acute issues noted overnight. DS: Diagnosis - Discharge Diagnosis (1) Sickle cell crisis Status: Resolved (2) Anemia Status: Acute (3) Hypokalemia Status: Acute DS: Medications - Discharge Medications Prescriptions: folic acid 1 mg PO DAILY #30 tab DS: Summary Hospital Course: Admitted with sickle cell crisis. Patient was treated with IV hydration, Dilaudid and folic acid. She was found to be anemic and her hemoglobin dropped to 5.7 prompting transfusion of 1 u PRBCs. Patient found to have a hypokalemia which was treated with replacement. She was seen in consultation by hematology. Hematology, patient appeared stable and not in any distress. Hematology signed off. She was weaned off parenteral narcotics. PT was requested but patient refused participation. Also attempt to treat patient with continuous high flow oxygen which she refused. Patient improved clinically. She reached maximum benefit from her hospitalization. - Time Spent with Patient Total time spent providing and/or coordinating discharge services: Greater than 30 minutes - Quality: VTE Deep Vein Thrombosis/Pulmonary Embolism Present on Admission: No Exam Vital signs: Vital Signs 07/19/18 12:15 07/19/18 16:40 07/19/18 20:00 Temperature 98.6 F 99.1 F 98.7 F Pulse Rate 87 92 H 108 H Respiratory Rate Blood Pressure 133/71 116/82 120/72 Pulse Oximetry 100 96 97 07/20/18 00:00 Temperature 98.4 F Pulse Rate 90 Respiratory Rate 17 Blood Pressure 129/71 Pulse Oximetry 97 Intake & Output 07/19/18 07/20/18 07/20/18 18:59 06:59 18:59 Intake Total 2505 / 2505 Output Total 4 / 4 Balance 2501 / 2501 Intake: IV 1005 / 1005 KCl Inj 10 MEQ In LR 1000 mL 1005 / 1005 Inj 1,000 ML @ 150 mls/hr IV. CONT .Q6H42M [facility] Rx#:[id number] Oral 1500 / 1500 Output: Urine 4 / 4 Other: Date of Last Bowel Movement 07/15/18 Narrative: GENERAL: Well-nourished, well-developed young AA female patient in [facility]. Appears comfortable, lying awake in bed. Asleep but easily awakens to voice. SKIN: Warm and dry. No rash. Port accessed at upper chest. Old left upper chest port scar. HEENT: Normocephalic. Atraumatic. Pupils equal and round. No sclera icterus. Mucous membranes pink and moist. CARDIOVASCULAR: Regular rate and rhythm. No murmur appreciated. RESPIRATORY: No accessory muscle use. Decreased inspiratory effort, otherwise clear to auscultation. Breath sounds equal bilaterally. GASTROINTESTINAL: Abdomen soft, nondistended. +Mild diffuse tenderness to palpation. Normoactive bowel sounds x4. MUSCULOSKELETAL: No obvious deformities. Extremities without clubbing, cyanosis , or edema. NEUROLOGICAL: Awake and alert. No obvious cranial nerve deficits. Moving all extremities spontaneously. Normal speech. PSYCHIATRIC: Flat affect; insight and judgment normal. Results Procedures completed during hospitalization: None Labs on day of discharge: Labs from last 24 hours 07/19/18 07/19/18 14:30 11:35 WBC 9.0 RBC 3.01 L Hgb 8.9 L Hct 26.6 L MCV 88.1 MCH 29.6 MCHC 33.6 RDW 23.7 H Plt Count 352 MPV 8.2 Prelim Diff (Auto) Manual diff required WBC Differential Manual diff final Seg Neuts % (Manual) 72 H Band Neuts % (Manual) 7 H Lymphocytes % (Manual) 15 Monocytes % (Manual) 1 Eosinophils % (Manual) 3 Basophils % (Manual) 2 Abs Neuts (Manual) 7.1 Nucleated RBCs/100 WBC 3 H Differential Comment . Platelet Estimate Normal Platelet Morphology Normal Pappenheimer Bodies Present H Target Cells 2+ H Keratocytes Occ H Sodium 138 Potassium 4.0 Chloride 101 Carbon Dioxide 30.2 Anion Gap 7 BUN 4 L Creatinine 0.68 Estimated GFR Greater than 89 Random Glucose 112 H Calcium 8.7 Discharge Plan - Discharge Disposition Patient Disposition: 01 Discharge Home - Discharge Condition Condition: Stable - Discharge Order Discharge Orders: Discharge Order (Routine); Ordered 07/20/18 Ordered By: Kirsten Noland - Discharge Details Anticipated Discharge Date: 07/20/18 - Physicians Team Primary Care Provider: UNKNOWN, Attending Provider: Stone Hahn Other Providers: [employer],Insurance ; José Manuel Nova MD
[2018-07-20] MEDS: Senna/Docusate Sodium 8.6/50 MG Tablet PO SCH (09:55)
[2018-07-20] MEDS: Folic Acid 1 MG Tablet PO SCH (09:55)
[2018-07-20] MEDS: Sodium Chloride 0.9% 2 ML Flush BID IV.FLUSH SCH (10:48)
== END 2018-07-20 15:45 | disposition home or self-care (01) ==
LOC: NEPE 21:56 → NEDA 07-10 02:54 → N06 07-10 04:32
PROVIDERS: ADMIT Internal Medicine; ATTEND Internal Medicine